=== PATIENT | male | born 1955 | race Caucasian/White ===

== ENCOUNTER 2024-02-26 18:59 | Inpatient (IN) | payer OTHER ==
--- OUTSIDE RECORDS SUMMARY | 2024-02-26 19:03 | XMS REPORT | Continuity of Care Document ---
Author Name Unknown Address [address] [facility] [address] [place] [address] [facility] Address [address] [facility] [address] [place] [address] Care Team Providers Care Broke Worker Name Role Phone CHI OCHOA Primary Care Physician UnavailALLYSON Angulo Attending Clinician Unavailable OBI-DORENE, IRIS Attending Clinician Unavailab le OBI-DORENE, IRIS Attending Clinician Unavailab ORN Blanco Attending Clinician Unavailable CHI OCHOA Attending Clinician Unavailable 2, [facility] Attending Clinician Unavailable Chi Styles Attending Clinician [phone] Doctor Unassigned, [place] Attending Clinician U Krishan Rodriguez MD Attending Clinician [phone] Lasha Man MD Attending Clinician [phone] LASHA MAN Attending Clinician Unavail able LASHA MAN Attending Clinician Unavail Allyson Pink MD Attending Clinician [phone] IDALIA HART Attending Clinician Unavailab yannick Medina RN, Deandra Barry Attending Clinician Debbie Nielsen LMSW Attending Clinician Jarett ng Payers Payer Name Policy Type Policy Number Effective Date Expirati on Date Source [facility] [id number] 2023 00:00:00 MEDICAID OF [place] [id number] 2024 00:00:00 Problems Condition Name Condition Details Condition Category Status Onset Date Resolution Date Last Treatment Date Treating Clinician Comments Source Type 2 diabetes mellitus, with long-term current use of insulin Type 2 diabetes mellitus, with long-term current use of insulin Disease Active 3 00:00: 00 [facility] Bilateral carotid artery stenosis Bilateral carotid artery stenosis Disease Active 3- 00:00: 00 [facility] Hyperlipid emia, unspecifie d hyperlipid emia type Hyperlipid emia, unspecifie d hyperlipid emia type Disease Active 3- 00:00: 00 [facility] Primary hypertensi on Primary hypertensi on Disease Active 3 00:00: 00 [facility] HFrEF (heart failure with reduced ejection fraction) HFrEF (heart failure with reduced ejection fraction) Disease Active 3 00:00: 00 [facility] Coronary artery disease involving napaimute coronary artery of napaimute heart without angina pectoris Coronary artery disease involving napaimute coronary artery of napaimute heart without angina pectoris Disease Active 3 00:00: 00 [facility] At risk for falls At risk for falls Disease Active 2 00:00: 00 [facility] Unspecifie d abnormalit ies of gait and mobility Unspecifie d abnormalit ies of gait and mobility Disease Active 2- 00:00: 00 [facility] Allergies, Adverse Reactions, Alerts Allergy Name Allergy Type Status Severity Reaction(s) Onset Date Inactive Date Treating Clinician Comments Source MORPHINE DRUG INGREDI Active Unknown-Cmnt 2- 00:00: 00 [facility] EMPAGLIF LOZIN DRUG INGREDI Active Unknown-Cmnt 2- 00:00: 00 [facility] Empaglif lozin Propensi ty to adverse reaction s Active Unknown - See comments 2- 00:00: 00 [facility] Morphine Propensi ty to adverse reaction s Active Unknown - See comments 2- 00:00: 00 [facility] NO KNOWN ALLERGIE S Drug Class Active [facility] Social History Social Habit Start Date Stop Date Quantity Comments Source History of tobacco use Cigarette Smoker [facility] Sexual orientation U niversity [facility] Alcohol intake 2023-12-29 00:00:00 2023-12-29 00:00:00 Lifetime non-drinker (finding) [facility] History of Social function 2023-12-29 00:00:00 2023-12-29 00:00:00 [facility] Tobacco use and exposure 2023-11-27 00:00:00 2023-11-27 00:00:00 Smokeless tobacco non-user [facility] Sex Assigned At 1955 00:00:00 1955 00:00:00 [facility] Smoking Status Start Date Stop Date Source Tobacco smoking consumption unknown [facility] Ex-smoker 2023-11-27 00:00:00 2023-11-27 00:00:00 [facility] Medications Ordered Medication Name Filled Medication Name Start Date Stop Date Current Medication? Ordering Clinician Indication Dosage Frequency Signature (SIG) Comments Components Source carvediloL (COREG) 12.5 mg tablet 01-28 00:00: 00 01-28 00:00 :00 Yes [id number] 12.5mg Take 1 tablet by mouth in the morning and 1 tablet in the evening. Take with meals. [facility] flash glucose sensor (FREESTYLE JOSE 2 SENSOR) Kit 01-03 00:00: 00 Yes 1{kit} 1 Kit every 2 (two) weeks. [facility] dulaglutide (TRULICITY) 1.5 mg/0.5 mL PnIj 01-03 00:00: 00 Yes [id number] 1.5mg inject 1 Pen under the skin weekly. [facility] ubidecareno ne (CO Q-10 ORAL) 15:03: 08 Yes Take by mouth. [facility] Magnesium Oxide 500 mg Cap 15:03: 08 Yes Take by mouth. [facility] aspirin 81 mg chewable tablet 15:01: 19 Yes 81mg Take 1 tablet by mouth in the morning. [facility] carvediloL (COREG) 12.5 mg tablet 15:01: 19 Yes 12.5mg Take 1 tablet by mouth in the morning and 1 tablet in the evening. Take with meals. [facility] losartan 25 mg tablet 12-11 12:23: 41 12-11 00:00 :00 No 25mg Take 1 tablet by mouth in the morning. [facility] aspirin 81 mg chewable tablet 12-11 12:23: 11 Yes 81mg Take 1 tablet by mouth in the morning. [facility] carvediloL (COREG) 12.5 mg tablet 12-11 12:23: 11 Yes 12.5mg Take 1 tablet by mouth in the morning and 1 tablet in the evening. Take with meals. [facility] losartan 25 mg tablet 12-11 00:00: 00 Yes [id number] 25mg Take 1 tablet by mouth in the morning. [facility] rosuvastati n (CRESTOR) 10 mg tablet 12-11 00:00: 00 Yes [id number] 10mg Take 1 tablet by mouth at bedtime. [facility] Blood-Gluco se Sensor (FREESTYLE JOSE 3 SENSOR) Nasreen 12-11 00:00: 00 Yes [id number] Use as directed [facility] BD ULTRAFINE III MINI PEN 31 gauge x 3/16" Ndle 12-11 00:00: 00 Yes USE DIRECTED 4 TIMES A DAY [facility] dulaglutide (TRULICITY) 1.5 mg/0.5 mL PnIj 12-11 00:00: 00 01-03 00:00 :00 No [id number] 1.5mg inject 1 Pen under the skin weekly for 90 days. [facility] metFORMIN 500 mg tablet 11-27 15:49: 42 11-27 00:00 :00 No 500mg Take 1 tablet by mouth in the morning and 1 tablet in the evening. Take with meals. [facility] Insulin Glargine (LANTUS SOLOSTAR U-100 INSULIN) 100 unit/mL (3 mL) injection 11-27 15:49: 42 11-27 00:00 :00 No 20U inject 20 Units under the skin in the morning. [facility] insulin aspart U-100 (NOVOLOG FLEXPEN U-100 INSULIN) 100 unit/mL (3 mL) injection 11-27 15:49: 42 11-27 00:00 :00 No 10U inject 10 Units under the skin in the morning and 10 Units at noon and 10 Units in the evening. inject before meals. Inject 5 to 10 units three times a day with meals [facility] aspirin 81 mg chewable tablet 11-27 15:47: 56 Yes 81mg Take 1 tablet by mouth in the morning. [facility] losartan 25 mg tablet 11-27 15:47: 56 Yes 25mg Take 1 tablet by mouth in the morning. [facility] carvediloL (COREG) 12.5 mg tablet 11-27 15:47: 56 Yes 12.5mg Take 1 tablet by mouth in the morning and 1 tablet in the evening. Take with meals. [facility] carvedilol 1.25 mg/mL oral suspension 11-27 15:45: 05 11-27 00:00 :00 No 12.5mg Take 10 mL by mouth in the morning and 10 mL in the evening. Take with meals. 1 tab by mouth twice a day [facility] insulin aspart U-100 (NOVOLOG FLEXPEN U-100 INSULIN) 100 unit/mL (3 mL) injection 11-27 00:00: 00 Yes [id number] 10U inject 10 Units under the skin in the morning and 10 Units at noon and 10 Units in the evening. inject before meals. Inject 5 to 10 units three times a day with meals [facility] metFORMIN 500 mg tablet 11-27 00:00: 00 Yes [id number] 500mg Take 1 tablet by mouth in the morning and 1 tablet in the evening. Take with meals. [facility] Insulin Glargine (LANTUS SOLOSTAR U-100 INSULIN) 100 unit/mL (3 mL) injection 11-27 00:00: 00 Yes [id number] 20U inject 20 Units under the skin in the morning. [facility] Insulin Glargine (LANTUS SOLOSTAR U-100 INSULIN) 100 unit/mL (3 mL) injection 11-27 00:00: 00 Yes [id number] 20U inject 20 Units under the skin in the morning. [facility] Vital Signs Vital Name Observation Time Observation Value Comments S ource Systolic blood pressure 2023-12-29 18:10:00 142 mm[Hg] [facility] Diastolic blood pressure 2023-12-29 18:10:00 72 mm[Hg] [facility] Heart rate 2023-12-29 18:10:00 65 /min [facility] Respiratory rate 2023-12-29 18:10:00 19 /min [facility] Body height 2023-12-29 18:10:00 182.9 cm [facility] Body weight 2023-12-29 18:10:00 77.61 kg [facility] BMI 2023-12-29 18:10:00 23.21 kg/m2 [facility] Oxygen saturation in Arterial blood by Pulse oximetry 2023-12-29 18:10:00 98 /min [facility] Systolic blood pressure 2023-12-28 15:14:00 135 mm[Hg] [facility] Diastolic blood pressure 2023-12-28 15:14:00 74 mm[Hg] [facility] Heart rate 2023-12-28 15:14:00 65 /min [facility] Body temperature 2023-12-28 15:14:00 36.39 [facility] Respiratory rate 2023-12-28 15:14:00 18 /min [facility] Body height 2023-12-28 15:14:00 182.9 cm [facility] Body weight 2023-12-28 15:14:00 74.753 kg [facility] BMI 2023-12-28 15:14:00 22.35 kg/m2 [facility] Oxygen saturation in Arterial blood by Pulse oximetry 2023-12-28 15:14:00 98 /min [facility] Systolic blood pressure 2023-12-24 20:59:00 136 mm[Hg] [facility] Diastolic blood pressure 2023-12-24 20:59:00 71 mm[Hg] [facility] Heart rate 2023-12-24 20:59:00 70 /min [facility] Body temperature 2023-12-24 20:59:00 36.61 [facility] Respiratory rate 2023-12-24 20:59:00 20 /min [facility] Body height 2023-12-24 20:59:[address] [facility] Body weight 2023-12-24 20:59:[address] [facility] BMI 2023-12-24 20:59:00 22.78 kg/m2 [facility] Oxygen saturation in Arterial blood by Pulse oximetry 2023-12-24 20:59:00 98 /min [facility] Systolic blood pressure 2023-12-11 18:16:00 141 mm[Hg] [facility] Diastolic blood pressure 2023-12-11 18:16:00 82 mm[Hg] [facility] Heart rate 2023-12-11 18:16:00 72 /min [facility] Body temperature 2023-12-11 18:16:00 36.33 [facility] Body height 2023-12-11 18:16:[address] [facility] Body weight 2023-12-11 18:16:00 75.297 kg [facility] BMI 2023-12-11 18:16:00 22.51 kg/m2 [facility] Oxygen saturation in Arterial blood by Pulse oximetry 2023-12-11 18:16:00 98 /min [facility] Systolic blood pressure 2023-11-27 21:36:00 136 mm[Hg] [facility] Diastolic blood pressure 2023-11-27 21:36:00 80 mm[Hg] [facility] Heart rate 2023-11-27 21:36:00 72 /min [facility] Body temperature 2023-11-27 21:36:00 36.61 [facility] Respiratory rate 2023-11-27 21:36:00 17 /min [facility] Body height 2023-11-27 21:36:00 182.9 cm [facility] Body weight 2023-11-27 21:36:00 75.388 kg [facility] BMI 2023-11-27 21:36:00 22.54 kg/m2 [facility] Oxygen saturation in Arterial blood by Pulse oximetry 2023-11-27 21:36:00 98 /min [facility] Procedures Procedure Date / Time Performed Performing Clinician Source EXTERNAL PROVIDER RECORDS 2024-01-12 05:01:00 Doctor Unassigned, [facility] AUTHORIZATION TO RELEASE PHI TO [facility] 2023-12-29 06:01:00 Doctor Unassigned, [facility] HB ECG ROUTINE & RHYTHM STRIP 2023-12-28 15:18:11 [facility] DME/SUPPLY JUSTIFICATION 2023-12-07 06:01:00 Doc tor Unassigned, [facility] ASSIGNMENT OF BENEFITS 2023-11-27 21:19:25 Docto r Unassigned, [facility] Encounters Start Date/Time End Date/Time Encounter Type Admission Type Attending Clinicians Care Facility Care Department Encounter ID Source 2024-05-26 13:20:00 2024-05-26 13:20:00 Outpatient R OBI-DORENE IRIS OBI-IRIS CATHERINE [facility] [id number] [facility] 2024-03-08 13:00:00 2024-03-08 13:00:00 Outpatient RON CARRASQUILLO [facility] [id number] [facility] 2024-02-25 13:30:00 2024-02-25 13:30:00 Outpatient CHI MOSER [facility] [id number] [facility] 2024-02-22 13:00:00 2024-02-22 14:02:15 Outpatient CHI MOSER 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 [id number] [facility] 2024-01-29 00:00:00 2024-01-29 00:00:00 Telephone Chi Ochoa [facility] 1.2.840.114 350.1.13.10 4.2.7.2.686 [id number] [facility] 2024-01-19 14:00:00 2024-01-19 14:00:00 Outpatient Joyce HOOVERAFUAIQ [facility] [id number] [facility] 2024-01-12 00:00:00 2024-01-12 00:00:00 Orders Only Doctor Unassigned, [place] [facility] 1.2.840.114 350.1.13.10 4.2.7.2.686 [id number] [facility] 2024-01-06 00:00:00 2024-01-06 00:00:00 Telephone Krishan Cowart [facility] 1.84114 350.1.13.10 4.2.7.2.686 [id number] [facility] 2024-01-04 00:00:00 2024-01-04 00:00:00 Telephone Donovan Lasha Hensley [facility] 1.114 350.1.13.10 4.2.7.2.686 [id number] [facility] 2024-01-01 00:00:00 2024-01-01 00:00:00 Patient Secure Msg Doctor Unassigned, [place] [facility] 1.114 350.1.13.10 4.2.7.2.686 [id number] [facility] 2023-12-29 11:40:00 2023-12-29 16:54:53 Outpatient R LASHA MAN HOWARD [facility] [id number] [facility] 2023-12-29 11:40:00 2023-12-29 16:54:53 Office Visit Lasha Man Ayden [facility] 1.114 350.1.13.10 4.2.7.2.686 [id number] [facility] 2023-12-29 00:00:00 2023-12-29 00:00:00 Telephone Donovan Lasha Hensley [facility] 1.114 350.1.13.10 4.2.7.2.686 [id number] [facility] 2023-12-29 00:00:00 2023-12-29 00:00:00 Orders Only Doctor Unassigned, [place] [facility] 1.114 350.1.13.10 4.2.7.2.686 [id number] [facility] 2023-12-28 09:40:00 2023-12-28 09:40:00 [facility] 1.2.840.114 350.1.13.10 4.2.7.2.686 [id number] [facility] 2023-12-28 09:40:00 2023-12-28 09:39:59 [id number] 2023-12-28 00:00:00 2023-12-28 00:00:00 Letter (Out) [facility] 1..840.114 350.1.13.10 4.2.7.2.686 [id number] [facility] 2023-12-24 16:15:00 2023-12-24 16:15:00 Office Visit Ron Hoover [facility] 1.840.114 350.1.13.10 4.2.7.2.686 [id number] [facility] 2023-12-24 16:15:00 2023-12-24 15:29:05 Outpatient R KATY, RON [facility] [id number] [facility] 2023-12-11 12:30:00 2023-12-11 12:48:04 Outpatient R CHI OCHOA [facility] [id number] [facility] 2023-12-11 12:30:00 2023-12-11 12:48:04 Office Visit Chi Ochoa [facility] 1.2.840.114 350.1.13.10 4.2.7.2.686 [id number] [facility] 2023-12-08 00:00:00 2023-12-08 00:00:00 Telephone Deandra Medina [facility] 1.2.840.114 350.1.13.10 4.2.7.2.686 [id number] [facility] 2023-12-07 14:40:00 2023-12-07 14:40:00 Outpatient Joyce MCCORMICKALLSYON 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 [id number] [facility] 2023-12-02 00:00:00 2023-12-02 00:00:00 [facility]840.114 350.1.13.10 4.2.7.2.686 [id number] [facility] 2023-12-02 00:00:00 2023-12-02 00:00:00 Telephone Chi Ochoa [facility] 1.2.840.114 350.1.13.10 4.2.7.2.686 [id number] [facility] 2023-12-01 00:00:00 2023-12-01 00:00:00 Patient Outreach [facility] 1.2.840.114 350.1.13.10 4.2.7.2.686 [id number] [facility] 2023-11-27 15:30:00 2023-11-27 16:17:50 Outpatient R CHI OCHOA [facility] [id number] [facility] 2023-11-27 15:30:00 2023-11-27 16:17:50 Office Visit Chi Ochoa [facility] 1.2.840.114 350.1.13.10 4.2.7.2.686 [id number] [facility] 2023-11-27 00:00:00 2023-11-27 00:00:00 Patient Secure Msg Doctor Unassigned, [place] [facility] 1.2.840.114 350.1.13.10 4.2.7.2.686 [id number] [facility] 2023-11-27 00:00:00 2023-11-27 00:00:00 Orders Only Doctor Unassigned, [place] [facility] 1.2.840.114 350.1.13.10 4.2.7.2.686 [id number] [facility] Notes Date/Time Note Provider Source 2024-02-22 13:00:00 ty2A9um6jv4qO5zA7cF9ro6E+PkHuGmVj MRFT51njica7MBBQ0G1bbPmYsnDWwjk14 16-02-29T13:00:00 Images from the original note were not included.Venipuncture collection performed by clean technique on the right anticubitus. Total of 3 attempts were made. Slight pressure and a bandage/dressing were applied to the site(s). The patient experienced no complications. The following specimens were processed according to instructions and sent to [facility] laboratories per lab order on 02/22/2024:LT BLUESST 2REDLAV 1PPTDK GREEN (LiHep)DK GREEN (SodH)GRAYDK BLUE (K2)DK BLUE (S)ACDBlood CultureNIPT/NTD 54520-6Swslq TzusLO7358-01-17R50:23:49Nurse NoteTXT1.2.840.491277.1.13.104.2. 7.2.526931|[id number] for patient enuc60456-9Fuksa NoteLNNARRATIVEFormatted C-CDA narrative text[address]TXTX[address] 391CPUZUHKJIKJBCZNGZSHVKH2960-85- 29T13:23:491.2.840.895835.1.72.3. 15|1.2.840.331056.1.13.104.2.7.2. 727879_[id number] [facility] 2024-02-10 15:14:11 8IDdH2cbdQt4JNcSdozvi+ILcobkyjmnO CpzyPj95QVnmSBkz40mgGXTLvh0pGmb99 16-02-17T15:14:11 Forms received and placed in providers folder. 17145-3Mfebsdioa encounter InsdUK8796-27-62I34:14:29Telephon e encounter NoteTXT1.2.840.265113.1.13.104.2. 7.2.913794|[id number] for patient aryx87546-6LdirJLUFERKPGFYRaqqmuq ed C-CDA narrative [id number] José Ramos RNUT[address]TXTX[address] 451FYXKESVMWIZXOJBHKEJDCD4677-14- 17T15:14:291.2.840.797009.1.72.3. 15|1.2.840.617755.1.13.104.2.7.2. 727879_[id number] Malinda Ramos RN [facility] 2024-02-10 08:57:17 fOYZegrZoGClwXxgQqtJCWHBYHFYwKZ+N 9c6wV2e7N1I0qXUPeOv8Yul3USnS6f182 16-02-17T08:57:17 Images from the original note were not included.Placed in nurse folder. 10436-6Byitiljuh encounter RrqxGU2014-86-86F70:57:32Telephon e encounter NoteTXT1.2.840.445221.1.13.104.2. 7.2.995462|[id number] for patient gitt24154-7CghqBKLKWOORWBATddvzzo ed C-CDA narrative snnk032527889Qqdnzvh D [address] FkzhOnrqwqifoQxwbjkvwjTZBF7734840 705DYZARCMGYHORKJIMTMUDER8784-85- 17T08:57:321.2.840.953609.1.72.3. 15|1.2.840.704969.1.13.104.2.7.2. 727879_[id number] Lynne Christiansen [facility] 2024-02-10 08:50:30 4qUYsH9RoPcvAFs3sq/1TX3t2hYFFb3RD rBaVheJqWtHcoGIWxnX2eW/klJSf7+b20 16-02-17T08:50:30 Will await forms for completion 27679-6Uhjoogjog encounter YyibVP3363-51-56X61:50:43Telephon e encounter NoteTXT1.2.840.418917.1.13.104.2. 7.2.873605|[id number] for patient wppq06950-0KnzkNCIMGVFHSFMZbcsvgh ed C-CDA narrative rtwx223744901Pgpsr Garcia V, KERRY[address] 366SPZZCLUEEDIGFNBVYWRHCP4741-48- 17T08:50:431.2.840.870308.1.72.3. 15|1.2.840.656352.1.13.104.2.7.2. 727879_[id number] Malinda Kumar V, KERRY [facility] 2024-02-10 08:21:11 xYJLlSl2uECNgeqwR9G27UZdb6Ox+fldF Th55qptljXYz0LPCX4g9YPZlXzrnj5898 16-02-1708:21:11 Maximus Sheehan is a 68 year old maleApril w [facility] medical called stating they will be faxing over "Jose 2 sensors forms" for pcp to be filled out.[facility] MEDICAL INFOPh # [phone] # [phone] signed by Anatoly Spencer at 02/10/2024 8:23 AM YWK95094-6Xdsjxzoee encounter TimpDN3892-85-20O33:23:35Telephon e encounter NoteTXT1.2.840.083122.1.13.104.2. 7.2.237950|[id number] for patient sdzi74750-7NmccOBHDCHEOXWWVtbrhbu ed C-CDA narrative [id number] Carlos[address] StreetDbelYmuqmtyewEfntzrnrxPSQI2845079 903YJWZUYGMHYALKWOFQZEERE8044-09- 17T08:23:351.2.840.957590.1.72.3. 15|1.2.840.122325.1.13.104.2.7.2. 727879_[id number] Anatoly Clark [facility] 2024-01-29 12:43:02 EkWRZMan5WIqQvkIB1VeL7t5RpcxP2Gio QCd7yPTBhHg8Omd3THL1gQp/vtNCMRg27 16-02-05T12:43:02 Refill 69717-8Epviuduzo encounter FskeEC9356-52-65T03:43:42Telephon e encounter NoteTXT1.2.840.508059.1.13.104.2. 7.2.458532|[id number] for patient absn35476-8XfqhTOAMVSBNJETKwxeaew ed C-CDA narrative text[address] BtgrPlwbdpmtkTswzwizdePDFS5972481 509KTUPLZSQFNUEJDDFNXSPFO6275-65- 05T12:43:421.2.840.853187.1.72.3. 15|1.2.840.111521.1.13.104.2.7.2. 727879_[id number] [facility] 2024-01-06 09:06:45 J41TDRkYuaMt02GYbqkAxaPoD188pUTwd Cl2zftCKchEQ4VPNOkUaTPzCw5ETj5r44 16-01-13T09:06:45 Images from the original note were not included.Notification received [facility], placed in provider folder for review. 49052-4Bnbufdhsh encounter XnkpAP8217-68-14I80:08:16Telephon e encounter NoteTXT1.2.840.118047.1.13.104.2. 7.2.717780|[id number] for patient pznd30256-0EvyhRMKLIUCSYQYXglrvwd ed C-CDA narrative [id number] [address] [id number] 358OEYVXMTXPDJAQVGHDQYLCR1353-34- 13T09:08:161.2.840.666887.1.72.3. 15|1.2.840.069383.1.13.104.2.7.2. [id number] Cynthia Walker [facility] 2024-01-04 16:53:53 1tQ0H3q771RJV1WpzGKAz77+p5pCD2JJa oydYYjQH2+Yi8jA+90rKOT7KmXgYMAG97 16-01-11T16:53:53 Received medical records from [facility] scanned and placed in box. 14981-2Mtjwlzirn encounter BkrqUA8486-45-64B14:55:08Telephon e encounter NoteTXT1.2.840.356221.1.13.104.2. 7.2.490064|[id number] for patient ffka76466-9VgweGAGMKEBRFCXZawihek ed C-CDA narrative [id number] J [address] NktuMacuntwunGqvjrrcrvSPQU1100216 643UNUMHRIEUBDOASUPYBOCCV3742-33- 11T16:55:081.2.840.597236.1.72.3. 15|1.2.840.850055.1.13.104.2.7.2. [id number] [facility] 15:13:09 2LWbW7RCIm/mofcRJtXXsj/8UmDSF0s1j uYBwLWzBhnyYqwRktNAdaeTEz3vyH2n53 16-01-115:13:09 Sensor has been sent to a DME company ([employer]) through [employer].Patient rollator is waiting for provider signature. Resent to provider to sign orders through [place]. 34227-1Tzwaudigc encounter FxdtLR1462-75-10G94:16:20Telephon e encounter NoteTXT1.2.840.480587.1.13.104.2. 7.2.889203|[id number] for patient qwuq23679-3NqhqEZWFQITHGSCRkjdwwq ed C-CDA narrative [id number] M Serrano MA[address] Zd[id number] 858LAMBBMJSBGYEQGZXADRCGE9680-70- 11T15:16:201.2.840.750031.1.72.3. 15|1.2.840.759503.1.13.104.2.7.2. [id number] Marianela Calderon [facility] 2024-01-04 13:51:14 ivQHPD/d8CVl25jySdUKGoVzVh/6MrnnP 5iHy5V4uuaHE4WqzzXTZV9goELjkgp876 16-01-113:51:14 Per patient, he is using the [employer] 2 sensor and it must be sent to [employer], it cannot be sent to the pharmacy. Order updated. Will routed to [facility] for DME order to [employer]. 51052-2Mjrwheptt encounter XouoBQ5767-20-94W78:03:28Telephon e encounter NoteTXT1.2.840.583340.1.13.104.2. 7.2.306609|[id number] for patient rzxd84041-9CedwXJGANFDAGKOLsttwoy ed C-CDA narrative text[address]TX[address] 569KGZQMDUWTXCJOYECYLVAXJ8524-95- 11T14:03:281.2.840.461375.1.72.3. 15|1.2.840.816413.1.13.104.2.7.2. [id number] [facility] 2023-12-29 13:59:51 2gaWQHeBz7Inn1I8q99q+Hj1IhsD9/tT0 eFrwuxfKqkGfwPdgu2nZuKnhJWC81oD14 16-01-05T13:59:51 Pt has signed medical release and has been faxed to designated location for request of medical records.Confirmation received.Scanned and uploaded to patients chart. 94928-7Lgivonbjt encounter JobbDZ7751-58-70C02:00:29Telephon e encounter NoteTXT1.2.840.217660.1.13.104.2. 7.2.346538|[id number] for patient cxfe48992-5CrifADQWXLRATANIqfxuly ed C-CDA narrative [id number] M Arlingtonadeola[address]TX[address] 672OPRULEYZJPWBUYIXOPDVLG3485-08- 05T14:00:291.2.840.476648.1.72.3. 15|1.2.840.387728.1.13.104.2.7.2. [id number] Lucia Sandoval [facility] 2023-12-08 10:49:19 0okNzkaqGhnjFZSOVybXaUJgtiXueA1NI [facility]/iZ+K950pWa/m2VEkuyVbY3IHZW75 19-12-12T10:49:19 Maximus Sheehan 455708S72/13/24Incoming call from patient who is trying to contact his PCP, Chi Ochoa -ROBYN regarding his medication.Current overdue topics are as followsHealth Maintenance DueTopic Date DueMedicare Wellness Visit Never sgccLHQB-GvF-1 (COVID-19) Vaccine (1) Never doneEYE EXAM Never doneDepression Screening Never doneHIV Screening Never doneSDOH Financial Resource Strain Never doneSDOH Food Insecurity Never doneSDOH Transportation Needs Never doneFOOT EXAM Never doneHEPATITIS C (HCV) SCREEN Never doneDTaP,Tdap,and Td Vaccines (1 - Tdap) Never doneColorectal Cancer Screening Never doneZoster Recombinant Vaccine (SHINGRIX) (1 of 2) Never donePNEUMOCOCCAL VACCINES 65+ (1 of 1 - PCV) Never doneINFLUENZA VACCINE (1) Never doneAAA Screening 3Patient stated "I need to contact my PCP, Chi Ochoa regarding my medication and some questions I have. I was trying to contact the clinic but some how my phone call got routed to you. Can you transfer me or give me the phone number. Attempted to transfer but unable to transfer to this clinic in [place], [place]. Patient was given the clinic phone number [phone] to speak with staff at the [facility].Deandra Medina RN 12/08/2023 10:49 AM 46173-9Ezommjzfx encounter DkjgRV8453-97-10V07:54:48Telephon e encounter NoteTXT1.2.840.781953.1.13.104.2. 7.2.851069|[id number] for patient dgjj01841-0QugfTRVNWLAIVWBOkjjngb ed C-CDA narrative [id number] Medina RNUTMBUT - [address]TXTX[address] 711ZKRGDWDJQITHBZRGSPDADN7461-74- 13T10:54:481.2.840.474758.1.72.3. 15|1.2.840.597460.1.13.104.2.7.2. [id number] Deandra Asha Adam PAYNE [facility] 2023-12-02 11:45:00 phg2iI4jEkHS+XYWBgj2jsDxVavo0HYCp zTEwZ62hFxoHNnyLlNckZaQB8m7HjcX27 19-12-061:45:00 Images from the original note were not included.Venipuncture collection performed by clean technique on the right anticubitus. Total of 1 attempts were made. Slight pressure and a bandage/dressing were applied to the site(s). The patient experienced no complications. The following specimens were processed according to instructions and sent to [facility] laboratories per lab order on 12/02/2023:LT BLUESST 1REDLAV 2PPTDK GREEN (LiHep)DK GREEN (SodH)GRAYDK BLUE (K2)DK BLUE (S)ACDBlood CultureNIPT/NTDPatient has been identified by and name and was provided with cup, antiseptic towelette, and clean catch instructions. 2 urine specimen(s) sent.Unpreserved 2Urine CultureAptima tubeOther urine 03839-1Ayuzw VptiYE5051-99-80O58:50:39Nurse NoteTXT1.2.840.474259.1.13.104.2. 7.2.661282|[id number] for patient nwju82546-5Idfro NoteLNNARRATIVEFormatted C-CDA narrative textUT[address] UazkNdqscfelrSnfevtthbWOIP5116571 119KLYNWTZRXIXZQMRIEFDLNR3867-66- 07T11:50:391.2.840.166146.1.72.3. 15|1.2.840.196477.1.13.104.2.7.2. [id number] [facility] 2023-12-02 10:32:53 hdedWk+Mpn678+xTk9Sql6elQtU/JG9tn byFVAhl9zULlMSxAw2mhuvzVAFb6vjI38 19-12-060:32:53 DME order for Rollator was sent through [employer]. Sent to [facility] Patient. 89445-0Oiwqdqqik encounter OmgtEM1837-09-17Z10:33:43Telephon e encounter NoteTXT1.2.840.854990.1.13.104.2. 7.2.238350|[id number] for patient xuhp71693-3OtebOVVMHGZTGUJVpnrtuj ed C-CDA narrative [id number] M Serrano MA[address] Jo[id number] 257FCHIHOHXNGXOPXENBLWANS4094-32- 07T10:33:431.2.840.882790.1.72.3. 15|1.2.840.975845.1.13.104.2.7.2. [id number] Marianela Calderon MA [facility]
[2024-02-26 19:37] LABS: Hematocrit 36.4 % (39.6-49.0); Hemoglobin 12.6 g/dL (13.6-17.9); Lymphocytes % 38.2 % (15.3-44.8); MCH 30.9 pg (27.0-35.0); MCHC 34.5 g/dL (32.0-36.0); MCV 89.5 fL (80-100); MPV 7.9 fL (7.6-11.3); Monocytes % 9.7 % (3.3-12.3); Neutrophils % 49.2 % (41.7-73.7); Platelets 298 thou/uL (152-406); RBC Red Blood Cell Count 4.07 M/uL (4.33-5.43); Red Cell Distribution Width 12.8 % (12.1-15.2)
[2024-02-26 19:38] LABS: Absolute Eosinophils 0.1 K/uL (0-0.5); Absolute Lymphocytes (CBC) 2.4 K/uL (0.7-4.9); Absolute Monocytes 0.6 K/uL (0.1-1.3); Absolute Neutrophil 3.1 K/uL (1.8-8.0); Basophils % 0.6 % (0-1.3); Eosinophils % 2.3 % (0-4.4); Nucleated Red Blood Cells % 0.2 % (0-0)
[2024-02-26 19:42] LABS: PT Prothrombin Time 11.9 SECONDS (9.5-12.5); Protime INR 1.08
[2024-02-26 19:57] LABS: ALT/SGPT 14 U/L (16-61); AST/SGOT 5 U/L (15-37); Albumin 2.7 g/dL (3.4-5.0); Albumin/Globulin Ratio 0.9 (1.1-1.8); Alkaline Phosphatase 76 U/L (45-117); Anion Gap 8.8 mEq/L (5.0-15.0); BUN Blood Urea Nitrogen 12 mg/dL (7-18); Bicarbonate 25 mEq/L (21-32); Bilirubin Total 0.3 mg/dL (0.2-1.0); Globulin 2.9 g/dL (2.3-3.5); Glomerular Filtration Rate 98 ml/min (=/>90); Glucose Level 271 mg/dL (74-106); Magnesium 1.7 mg/dL (1.6-2.4); NT PRO-BNP 135 pg/mL (<125); Potassium 3.8 mEq/L (3.5-5.1); Protein, Total 5.6 g/dL (6.4-8.2); Sodium Level 138 mEq/L (136-145); Troponin High Sensitivity 21.3 pg/mL (<58.9)
[2024-02-26 20:00] LABS: Bilirubin Direct < 0.1 mg/dL (0-0.2); Bilirubin Indirect, Calculated ND mg/dL (0.2-0.8)
--- NOTE | 2024-02-26 20:27 | RAD REPORT ---
EXAM DESCRIPTION: CT - CTHCSPWOC - 02/26/2024 8:04 pm CLINICAL HISTORY: Trauma, head and neck injury. syncope;Headache COMPARISON: Head C Spine Mpr Wo Con dated 12/28/2023 TECHNIQUE: Axial 5 mm thick images of the head were obtained. Axial 2 mm thick images of the cervical spine were obtained with sagittal and coronal reconstruction images generated and reviewed. All CT scans are performed using dose optimization technique as appropriate and may include automated exposure control or mA/KV adjustment according to patient size. FINDINGS: CT HEAD WITHOUT CONTRAST: No acute hemorrhage, hydrocephalus or extra-axial collection is identified.No areas of brain edema or midline shift. Left parietal craniotomy. The paranasal sinuses and mastoids are clear.The calvarium is intact. CT CERVICAL SPINE WITHOUT CONTRAST: No fracture or subluxation.No prevertebral soft tissues swelling is identified. Mild cervical spondyl osis with neural foraminal narrowing at C4-5 and C5-6 that is mild. No high grade spinal stenosis vargas ntified. IMPRESSION: No acute intracranial or cervical spine findings.
--- NOTE | 2024-02-26 20:55 | RAD REPORT ---
EXAM DESCRIPTION: RAD - Chest Single View - 02/26/2024 8:43 pm CLINICAL HISTORY: syncope COMPARISON: Chest Single View dated 12/28/2023 FINDINGS: Lines: None. Lungs: No evidence of edema or pneumonia. Pleural: No significant pleural effusions or pneumothorax. Cardiac: The heart size is within normal limits. Mediastinum: Within normal limits. Bones: No acute fractures. Sternotomy. Other: None IMPRESSION: No acute cardiopulmonary disease.
[2024-02-26] MEDS ORDERED: ACETAMINOPHEN 325 MG TABLET PO PRN (22:49)
[2024-02-26] MEDS ORDERED: ONDANSETRON 4 MG/2 ML VIAL IV PRN (22:49)
--- NOTE | 2024-02-26 22:53 | P.HP ---
Certification for Inpatient Patient admitted to: Observation With expected LOS: <2 Midnights Practitioner: I am a practitioner with admitting privileges, knowledge of patient current condition, hospital course, and medical plan of care. Services: Services provided to patient in accordance with Admission requirements found in Title 42 Section 412.3 of the Code of Federal Regulations Patient History Date of Service: 02/26/24 Reason for admission: Syncope History of Present Illness: 68yo male with past medical history of CVA, history of brain bleed status post surgery, history of possible POTS syndrome who came to ER with generalized weakness and fall and was brought to ER. Patient states that he had a stroke previously with mild residual deficits on the right side. He used to have dizziness and generalized weakness and passed out episodes especially movement movement. Patient denies any fever or chills. Denies any chest pain or shortness of breath.. Denies any nausea vomiting or diarrhea. Today patient was standing from sitting position when all of a sudden he got dizzy and fell down with a loss of consciousness about 30 minutes as per the patient. Denies a ny seizure-like activity. Patient was assessed in the ER and had a CT which showed no acute changes Patient is being admitted for further management - Past Medical/Surgical History Past Medical History: Reviewed- Non-Contributory -: cva Past Surgical History: Reviewed- Non-Contributory -: Brain - Family History Family History: Reviewed- Non-Contributory - Social History Smoking Status: Never smoker Review of Systems 10-point ROS is otherwise unremarkable Physical Examination - Vital Signs Temperature: 98.2 F Blood Pressure: 128/76 Pulse: 78 Respirations: 18 Pulse Ox (%): 94 - Physical Exam General: Alert, In no apparent distress, Oriented x3 HEENT: Atraumatic, Normocephalic Neck: Supple, 2+ carotid pulse no bruit Respiratory: Clear to auscultation bilaterally, Normal air movement Cardiovascular: Regular rate/rhythm, Normal S1 S2, No gallops Capillary refill: <2 Seconds Gastrointestinal: Soft and benign, W/out hepatosplenomegaly, No ascites, No tenderness Musculoskeletal: No clubbing, No swelling Integumentary: No rashes, No breakdown Neurological: Normal speech, Normal strength at 5/5 x4 extr, Cranial nerves 3-12 intact, Normal reflexes 2+ Lymphatics: No axilla or inguinal lymphadenopathy - Studies Laboratory Data (last 24 hrs) 02/26/24 02/26/24 02/26/24 19:21 19:21 19:21 WBC 6.30 Hgb 12.6 L Hct 36.4 L Plt Count 298 PT 11.9 INR 1.08 Sodium 138 Potassium 3.8 BUN 12 Creatinine 0.80 Glucose 271 H Magnesium 1.7 Total Bilirubin 0.3 AST 5 L ALT 14 L Alkaline Phosphatase 76 Assessment and Plan - Problems (Diagnosis) (1) Syncope and collapse Current Visit: Yes Status: Acute Plan: Syncope and collapse Monitor closely on telemetry CT head negative for any acute changes Syncopal workup Will get a cardiology evaluation History of CVA History of SDH No acute changes at this time CT head at this time is negative Continue home medications Dehydration IV hydration GI/DVT prophylaxis Advance directive full code - Advance Directives Does patient have a Living Will: No Does patient have a Durable POA for Healthcare: No - Code Status/Comfort Care Code Status Assessed: Yes Code Status: Full Code Time Spent Managing Pts Care (In Minutes): 48
[2024-02-27 02:28] LABS: Specific Gravity 1.012 (1.005-1.030); Urine Bilirubin NEGATIVE (Negative); Urine Blood Negative (Negative); Urine Clarity Clear (Clear); Urine Color Light-Yellow (Yellow); Urine Glucose 3+ (Negative); Urine Ketones NEGATIVE (Negative); Urine Microscopic Reflex YN NO UMIC; Urine Nitrite NEGATIVE (Negative); Urine Protein NEGATIVE (Negative); Urine Urobilinogen Normal (Normal); Urine pH 6.5 (5.0-7.0)
[2024-02-27] MEDS: NA CHLORIDE 0.9% 1,000 ML ONE (04:20)
[2024-02-27] MEDS: NA CHLORIDE 0.9% 1,000 ML IV SCH (04:37)
[2024-02-27 07:00] LABS: Absolute Eosinophils 0.1 K/uL (0-0.5); Absolute Monocytes 0.5 K/uL (0.1-1.3); Absolute Neutrophil 2.8 K/uL (1.8-8.0); Basophils % 0.8 % (0-1.3); Eosinophils % 1.6 % (0-4.4); Hematocrit 38.1 % (39.6-49.0); Hemoglobin 13.1 g/dL (13.6-17.9); Lymphocytes % 36.7 % (15.3-44.8); MCH 30.8 pg (27.0-35.0); MCHC 34.4 g/dL (32.0-36.0); MCV 89.5 fL (80-100); Neutrophils % 50.9 % (41.7-73.7); Nucleated Red Blood Cells % 0.1 % (0-0); Platelets 315 thou/uL (152-406); RBC Red Blood Cell Count 4.25 M/uL (4.33-5.43)
[2024-02-27 07:21] LABS: ALT/SGPT 14 U/L (16-61); Albumin 2.9 g/dL (3.4-5.0); Alkaline Phosphatase 76 U/L (45-117); Anion Gap 7.9 mEq/L (5.0-15.0); BUN Blood Urea Nitrogen 12 mg/dL (7-18); Bicarbonate 26 mEq/L (21-32); Bilirubin Total 0.4 mg/dL (0.2-1.0); Globulin 2.9 g/dL (2.3-3.5); Glomerular Filtration Rate 102 ml/min (=/>90); Glucose Level 306 mg/dL (74-106); Potassium 3.9 mEq/L (3.5-5.1); Protein, Total 5.8 g/dL (6.4-8.2); Sodium Level 137 mEq/L (136-145)
[2024-02-27 07:22] LABS: AST/SGOT < 4 U/L (15-37)
--- NOTE | 2024-02-27 07:49 | P.PN ---
Subjective Date of Service: 02/28/24 Chief Complaint: Syncope 68yo male with past medical history of CVA, history of brain bleed status post surgery, history of possible POTS syndrome who came to ER with generalized weakness and fall and was brought to ER. Patient states that he had a stroke previously with mild residual deficits on the right side. He used to have dizziness and generalized weakness and passed out episodes especially movement movement. Orthostatic VS, will ambulate to PT today, PT eval cardiology consult ordered - Physical Exam General: Alert, In no apparent distress, Oriented x3 HEENT: Atraumatic, Normocephalic Neck: Supple, 2+ carotid pulse no bruit Respiratory: Clear to auscultation bilaterally, Normal air movement Cardiovascular: Regular rate/rhythm, Normal S1 S2, No gallops Capillary refill: <2 Seconds Gastrointestinal: Soft and benign, W/out hepatosplenomegaly, No ascites, No tenderness Musculoskeletal: No clubbing, No swelling Integumentary: No rashes, No breakdown Neurological: Normal speech, Normal strength at 5/5 x4 extr, Cranial nerves 3-12 intact, Normal reflexes 2+ Lymphatics: No axilla or inguinal lymphadenopathy <Susana Jama - Last Filed: 02/28/24 06:42> Date of Service: 02/27/24 <Esther Hensley - Last Filed: 02/29/24 16:11> Review of Systems per HPI <Susana Jama - Last Filed: 02/28/24 06:42> Physical Examination - Vital Signs Temperature: 98.3 F Blood Pressure: 125/60 Pulse: 78 Respirations: 16 Pulse Ox (%): 97 - Studies Laboratory Data (last 24 hrs) 02/26/24 02/26/24 02/26/24 19:21 19:21 19:21 WBC 6.30 Hgb 12.6 L Hct 36.4 L Plt Count 298 PT 11.9 INR 1.08 Sodium 138 Potassium 3.8 BUN 12 Creatinine 0.80 Glucose 271 H Magnesium 1.7 Total Bilirubin 0.3 AST 5 L ALT 14 L Alkaline Phosphatase 76 02/26/24 02/26/24 02/26/24 19:20 19:20 19:20 WBC Cancelled Hgb Cancelled Hct Cancelled Plt Count Cancelled PT Cancelled INR Cancelled Sodium Cancelled Potassium Cancelled BUN Cancelled Creatinine Cancelled Glucose Cancelled Magnesium Cancelled Total Bilirubin Cancelled AST Cancelled ALT Cancelled Alkaline Phosphatase Cancelled <Susana Jama - Last Filed: 02/28/24 06:42> Assessment And Plan - Plan Assessment and Plan Syncope and collapse Fall Monitor closely on telemetry CT head negative for any acute changes Syncopal workup Will get a cardiology evaluation Orthostatic vital sign PT eval Cardiology consult Rad/Lab/Micro: Orthostatic vital signs stable / CT neck IMPRESSION: 1. Severe (>70% stenosis) of the right mid ICA. 2. Mild (<50% stenosis) of the left proximal ICA. 3. Severe stenosis of the nondominant left vertebral artery at its origin. 4. The common carotid arteries and right vertebral artery are patent. 5/ CTA of the head-IMPRESSION: No large vessel occlusion or aneurysm identified. The left vertebral artery has a severe focal stenosis proximally CT of the head Chest x-ray no acute abnormality / CT of the cervical spine CT CERVICAL SPINE WITHOUT CONTRAST: No fracture or subluxation.No prevertebral soft tissues swelling is identified. Mild cervical spondylosis with neural foraminal narrowing at C4-5 and C5-6 that is mild. No high grade spinal stenosis identified.IMPRESSION: No acute intracranial or cervical spine findings 02/26 Carotid ultrasound MPRESSION: Severe (greater than 70% stenosis but less than occlusion) at the right mid ICA. Moderate (50-69%) stenosis of the left mid ICA POTS Syndrome History of CVA History of SDH No acute changes at this time CT head at this time is negative Continue home medications Dehydration IV hydration GI/DVT prophylaxis Advance directive full code Discharge Plan: Home - Code Status/Comfort Care Code Status: Full Code Critical Care: No Time Spent Managing PTS Care (In Minutes): 35 <Susana Jama - Last Filed: 02/28/24 06:42> Date of Service: 02/27/24 Patient was seen and examined. Events of the last 24 hours have been noted. Spoke with with SAMIR regarding patient's clinical picture after evaluating and examining the patient independently. CT angio of the head and neck is pending. I performed a substantial part of the MDM during this patient's care today. I personally made or approved the documented management plan and acknowledge its risk of complications. I agree with the findings and documentation provided in the SAMIR's notes. <Esther Hensley - Last Filed: 02/29/24 16:11>
--- NOTE | 2024-02-27 07:56 | RAD REPORT ---
EXAM DESCRIPTION: - CP - 02/27/2024 6:00 am CLINICAL HISTORY: Syncope COMPARISON: Head C Spine Mpr Wo Con dated 02/26/2024 TECHNIQUE: Real-time sonographic evaluation of both carotid systems was performed. Doppler interroga tion was performed with waveform tracing bilaterally. FINDINGS: Normal high resistance waveforms are noted in both external carotid arteries. The common c arotid arteries normal low resistance waveforms and no elevated peak systolic velocities. Elevated velocities are present at the right mid ICA with a peak systolic velocity of 272 cm/s. Hard and soft plaque is present at the carotid bulb. Elevated peak systolic velocities present on the left mid ICA with peak systolic velocities at 162 cm /second. Hard and soft plaque is present at the carotid bulb. Antegrade flow seen in both vertebral arteries. IMPRESSION: Severe (greater than 70% stenosis but less than occlusion) at the right mid ICA. Moderate (50-69%) stenosis of the left mid ICA.
[2024-02-27] MEDS ORDERED: GLUCAGON 1 MG/VIAL IM PRN (07:57)
[2024-02-27] MEDS ORDERED: D50W 25 GM/50 ML SYRINGE IV PRN (07:57)
[2024-02-27] MEDS: INSULIN REGULAR (HUMAN) 100 UNIT/ML SQ SCH ×2 (08:00→16:21)
[2024-02-27] MEDS: INSULIN REGULAR (HUMAN) 100 UNIT/ML ONE (08:29)
[2024-02-27] MEDS: INSULIN GLARGINE 100 UNIT/ML SQ ONE (08:31)
[2024-02-27] MEDS: ENOXAPARIN 40 MG/0.4 ML SQ SCH (08:37)
[2024-02-27] MEDS: INSULIN GLARGINE 100 UNIT/ML SQ SCH (08:41)
[2024-02-27] MEDS: ROSUVASTATIN 10 MG TAB PO SCH (11:01)
[2024-02-27] MEDS: carvediloL 12.5 MG TAB PO SCH (11:02)
[2024-02-27] MEDS: LOSARTAN POTASSIUM 50 MG TABLET PO SCH (11:02)
[2024-02-27] MEDS: ASPIRIN EC 81 MG TAB PO SCH (11:03)
[2024-02-27] MEDS: METFORMIN ER 500 MG TAB PO SCH (11:03)
[2024-02-27 15:00] VITALS: BMI 22.2
--- NOTE | 2024-02-27 15:13 | RAD REPORT ---
EXAM DESCRIPTION: CT - Head angio - 02/27/2024 3:01 pm CLINICAL HISTORY: syncope/TIA COMPARISON: No comparisons TECHNIQUE: CT angiography of the head was performed with maximum intensity reformatted images. 3D ma ximum intensity pixel (MIP) reconstructions were created All CT scans are performed using dose optimization technique as appropriate and may include automated exposure control or mA/KV adjustment according to patient size. FINDINGS: Anterior circulation: No aneurysm or large vessel occlusion. No hemodynamically significant stenosis. No arteriovenous malf ormation identified. Posterior circulation: No aneurysm or large vessel occlusion. Severe focal stenosis of the left intracranial vertebral arter y. No arteriovenous malformation identified. IMPRESSION: No large vessel occlusion or aneurysm identified. The left vertebral artery has a severe focal stenosis proximally.
--- NOTE | 2024-02-27 15:20 | RAD REPORT ---
EXAM DESCRIPTION: CT - Neck Angio - 02/27/2024 3:01 pm CLINICAL HISTORY: syncope/TIA COMPARISON: Head C Spine Mpr Wo Con dated 02/26/2024; Head C Spine Mpr Wo Con dated 12/28/2023; Carotid Artery Bilateral dated 02/27/2024 TECHNIQUE: CT angiography of the neck vessels was performed with maximum intensity reformatted image s. CAROTID STENOSIS REFERENCE USING NASCET CRITERIA: Mild - <50% stenosis. Moderate - 50-69% stenosis. Severe - 70-94% stenosis. Near occlusion - 95-99% stenosis. Occluded - 100% stenosis. All CT scans are performed using dose optimization technique as appropriate and may include automated exposure control or mA/KV adjustment according to patient size. FINDINGS: A left aortic arch is identified with normal three vessel configuration of the great vesse ls. No significant flow abnormality is seen of the common carotid bilaterally. Severe (greater than 70%) stenosis of the right ICA with focal stenosis just beyond the carotid bulb. Calcified and noncalcified plaque at the left ICA results in a mild less than 50% stenosis. The right vertebral artery is patent. Severe stenosis of the left proximal vertebral artery at its or igin. The left vertebral artery is nondominant. IMPRESSION: 1. Severe (>70% stenosis) of the right mid ICA. 2. Mild (<50% stenosis) of the left proximal ICA. 3. Severe stenosis of the nondominant left vertebral artery at its origin. 4. The common carotid arteries and right vertebral artery are patent.
--- NOTE | 2024-02-27 17:16 | P.DS ---
Admission Date: 02/26/24 Discharge Date: 02/27/24 Disposition: ROUTINE DISCHARGE Discharge Condition: GOOD Reason for Admission: Syncope Brief History of Present Illness: 68yo male with past medical history of CVA, history of brain bleed status post surgery, history of possible POTS syndrome who came to ER with generalized weakness and fall and was brought to ER. Patient states that he had a stroke previously with mild residual deficits on the right side. He used to have dizziness and generalized weakness and passed out episodes especially movement movement. Patient denies any fever or chills. Denies any chest pain or shor tness of breath.. Denies any nausea vomiting or diarrhea. Today patient was standing from sitting position when all of a sudden he got dizzy and fell down with a loss of consciousness about 30 minutes as per the patient. Denies any seizure-like activity. Patient was assessed in the ER and had a CT which showed no acute changes Patient is being admitted for further management Physical Exam General: Alert, In no apparent distress, Oriented x3 HEENT: Atraumatic, Normocephalic Neck: Supple, 2+ carotid pulse no bruit Respiratory: Clear to auscultation bilaterally, Normal air movement Cardiovascular: Regular rate/rhythm, Normal S1 S2, No gallops Capillary refill: <2 Seconds Gastrointestinal: Soft and benign, W/out hepatosplenomegaly, No ascites, No tenderness Musculoskeletal: No clubbing, No swelling Integumentary: No rashes, No breakdown Neurological: Normal speech, Normal strength at 5/5 x4 extr, Cranial nerves 3-12 intact, Normal reflexes 2+ Lymphatics: No axilla or inguinal lymphadenopathy Hospital Course: 68yo male with past medical history of CVA, history of brain bleed status post surgery, history of possible POTS syndrome who came to ER with generalized weakness and fall and was brought to ER. Patient states that he had a stroke previously with mild residual deficits on the right side. He used to have dizziness and generalized weakness and passed out episodes especially movement movement. Was noted to have syncope, collapse. Condition improved with IV fluids, hydration Patient tolerating diet, stable for discharge to home with follow-up appointment with primary care physician. Follow-up with neurology after to PROBLEM: Syncope, collapse orthostatic vital signs were not POTS syndrome-instructed on hydration Dehydration, treated with IV fluids on admission Rad/Lab/Micro: Orthostatic vital signs stable 02/26 CT neck IMPRESSION: 1. Severe (>70% stenosis) of the right mid ICA. 2. Mild (<50% stenosis) of the left proximal ICA. 3. Severe stenosis of the nondominant left vertebral artery at its origin. 4. The common carotid arteries and right vertebral artery are patent. 5/ CTA of the head-IMPRESSION: No large vessel occlusion or aneurysm identified. The left vertebral artery has a severe focal stenosis proximally CT of the head Chest x-ray no acute abnormality / CT of the cervical spine CT CERVICAL SPINE WITHOUT CONTRAST: No fracture or subluxation.No prevertebral soft tissues swelling is identified. Mild cervical spondylosis with neural foraminal narrowing at C4-5 and C5-6 that is mild. No high grade spinal stenosis identified.IMPRESSION: No acute intracranial or cervical spine findings / Carotid ultrasound MPRESSION: Severe (greater than 70% stenosis but less than occlusion) at the right mid ICA. Moderate (50-69%) stenosis of the left mid ICA Continue home medicines as previously prescribed GOAL: Clear understanding of disease process INSTRUCTIONS: Physician Discharge Instructions: -Follow-up with PCP in 1 to 2 weeks -Please call Dr. Hensley at [phone] if any questions regarding hospital stay -Please call nursing station at [phone] if any nursing or medication questions -Return to the emergency room if symptoms worsen Diet: ADA, low sodium Activity: Fall precautions Vital Signs/Physical Exam: Temp Pulse Resp BP Pulse Ox 97.6 F 80 16 149/79 H 97 02/27/24 12:04 02/27/24 16:20 02/27/24 12:04 02/27/24 16:20 02/27/24 12:04 Laboratory Data at Discharge: WBC 5.50 thou/uL (4.3-10.9) 02/27/24 06:34 Hgb 13.1 g/dL (13.6-17.9) L 02/27/24 06:34 Hct 38.1 % (39.6-49.0) L 02/27/24 06:34 Plt Count 315 thou/uL (152-406) 02/27/24 06:34 PT 11.9 SECONDS (9.5-12.5) 02/26/24 19:21 INR 1.08 02/26/24 19:21 Sodium 137 mEq/L (136-145) 02/27/24 06:34 Potassium 3.9 mEq/L (3.5-5.1) 02/27/24 06:34 BUN 12 mg/dL (7-18) 02/27/24 06:34 Creatinine 0.70 mg/dL (0.70-1.30) 02/27/24 06:34 Glucose 306 mg/dL (74-106) H 02/27/24 06:34 Magnesium 1.7 mg/dL (1.6-2.4) 02/26/24 19:21 Total Bilirubin 0.4 mg/dL (0.2-1.0) 02/27/24 06:34 AST < 4 U/L (15-37) L 02/27/24 06:34 ALT 14 U/L (16-61) L 02/27/24 06:34 Alkaline Phosphatase 76 U/L (45-117) 02/27/24 06:34 Home Medications: Aspirin [Aspirin EC] 2 tab PO DAILY #60 02/27/24 Carvedilol [Coreg] 12.5 mg PO BID 02/27/24 Insulin -Regular Human [Novolin -R*] 3 ml SQ SEECOM 02/27/24 Insulin Glargine,Hum.rec.anlog [Lantus Solostar] 100 unit SQ SEECOM 02/27/24 Losartan Potassium 25 mg PO DAILY 02/27/24 Metformin HCl [Glucophage*] 500 mg PO DAILY 02/27/24 Rosuvastatin [Crestor*] 10 mg PO DAILY 02/27/24 New Medications: Aspirin [Aspirin EC] 2 tab PO DAILY #60 Physician Discharge Instructions: -DC IV and DC home -Follow-up with PCP in 1 to 2 weeks -Follow-up with Cardiology in 1 to 2 weeks -Please call Dr. Hensley at [phone] if any questions regarding hospital stay -Please call nursing station at [phone] if any nursing or medication questions -Return to the emergency room if symptoms worsen Diet: AHA Activity: Fall precautions Followup: CHI CHAIDEZ [Primary Care Provider] - Time spent managing pt's care (in minutes): 55
--- NOTE | 2024-02-27 18:56 | CON ---
Date of Consultation: 02/27/2024 Reason For Consultation: Syncope. History Of Present Illness: This is a 68-year-old male with history of coronary artery disease, cherrie estive heart failure, carotid stenosis, CVA, heart attack, bypass surgery, multiple cardiac stents pr ior to the bypass, hypertension, presented with syncopal episode. He was checking his blood pressure at home and he stood up to put the blood pressure machine where it belongs. For that he has to bend over and then he felt very dizzy and when he stood up, collapsed on the floor and then regained cons ciousness. Denies having any palpitations or any arrhythmia, feeling just lightheadedness and his bl ood pressure when he took it was 111/64, which was low. In the past, he was on Entresto and carvedil ol. Entresto was stopped due to low blood pressure. At the present time, he is asymptomatic. Denie s having chest pain. Past Medical History: As outlined above in the HPI. Medications: Refer reconciliation sheet for detailed list. Allergies: MORPHINE. Family History: No premature coronary artery disease or cancer. Social History: He does not smoke or drink. Does not use any drugs. Review of Systems: All systems reviewed are negative except mentioned in HPI. Physical Examination: Vital Signs: Reviewed. Head and Neck: Pupils are equal, reactive to light. Intact eye movements. No JVD. No cervical lym phadenopathy. Neck is supple. Thyroid is not enlarged. Lungs: Clear to auscultation bilaterally. No rhonchi, wheezing, or crackles. No accessory muscle u se. Heart: Regular rate and rhythm. No extra sounds. Abdomen: Soft, nontender. Bowel sounds positive. No organomegaly. No masses or hernia. No rigidi ty or rebound. Extremities: No edema, clubbing, or cyanosis. Intact pulses. Skin: No rash. No nodule. Neurologic: Alert, awake, oriented x3. No acute focal deficits appreciated. Investigations: Cardiac enzymes x4 are negative. BUN 12, creatinine 0.70. Assessment/recommendation: 1.Syncope, likely orthostatic hypotension from low blood pressure. Recommend to back off on his [place] and carvedilol doses comparing to what he takes at home. Monitor on telemetry for any arrhythm ias. Obtain echocardiogram. Cardiac enzymes have been negative. 2.Coronary artery disease. No chest pain. Cardiac enzymes are negative. I do not believe there is arrhythmia involved, but I still recommend post discharge an event monitor. 3.Dyslipidemia. Continue Crestor. 4.Diabetes. Sugar seems to be controlled. SR/MODL Voice ID: [id number] Report ID: [id number]
--- NOTE | 2024-02-28 06:43 | P.PN ---
Subjective Date of Service: 02/28/24 Chief Complaint: Syncope 68yo male with past medical history of CVA, history of brain bleed status post surgery, history of possible POTS syndrome who came to ER with generalized weakness and fall and was brought to ER. Patient states that he had a stroke previously with mild residual deficits on the right side. He used to have dizziness and generalized weakness and passed out episodes especially movement movement. Orthostatic VS, will ambulate to PT today, PT eval cardiology consult ordered CT of the head and neck moderate stentosis - Physical Exam General: Alert, In no apparent distress, Oriented x3 HEENT: Atraumatic, Normocephalic Neck: Supple, 2+ carotid pulse no bruit Respiratory: Clear to auscultation bilaterally, Normal air movement Cardiovascular: Regular rate/rhythm, Normal S1 S2, No gallops Capillary refill: <2 Seconds Gastrointestinal: Soft and benign, W/out hepatosplenomegaly, No ascites, No tenderness Musculoskeletal: No clubbing, No swelling Integumentary: No rashes, No breakdown Neurological: Normal speech, Normal strength at 5/5 x4 extr, Cranial nerves 3-12 intact, Normal reflexes 2+ Lymphatics: No axilla or inguinal lymphadenopathy <Susana Jama - Last Filed: 02/28/24 06:42> Date of Service: 02/28/24 <Esther Hensley - Last Filed: 02/29/24 16:15> Review of Systems Per HPI <Susana Jama - Last Filed: 02/28/24 06:42> Physical Examination - Vital Signs Temperature: 98.3 F Blood Pressure: 125/60 Pulse: 78 Respirations: 16 Pulse Ox (%): 97 <Susana Jama - Last Filed: 02/28/24 06:42> Assessment And Plan - Plan Assessment and Plan Syncope and collapse Fall Monitor closely on telemetry CT head negative for any acute changes Syncopal workup Will get a cardiology evaluation Orthostatic vital sign PT eval Cardiology consult Rad/Lab/Micro: Orthostatic vital signs stable 02/26 CT neck IMPRESSION: 1. Severe (>70% stenosis) of the right mid ICA. 2. Mild (<50% stenosis) of the left proximal ICA. 3. Severe stenosis of the nondominant left vertebral artery at its origin. 4. The common carotid arteries and right vertebral artery are patent. 02/26 CTA of the head-IMPRESSION: No large vessel occlusion or aneurysm identifi ed. The left vertebral artery has a severe focal stenosis proximally CT of the head Chest x-ray no acute abnormality / CT of the cervical spine CT CERVICAL SPINE WITHOUT CONTRAST: No fracture or subluxation.No prevertebral soft tissues swelling is identified. Mild cervical spondylosis with neural foraminal narrowing at C4-5 and C5-6 that is mild. No high grade spinal stenosis identified.IMPRESSION: No acute intracranial or cervical spine findings / Carotid ultrasound MPRESSION: Severe (greater than 70% stenosis but less than occlusion) at the right mid ICA. Moderate (50-69%) stenosis of the left mid ICA POTS Syndrome History of CVA History of SDH No acute changes at this time CT head at this time is negative Continue home medications Dehydration IV hydration GI/DVT prophylaxis Advance directive full code Discharge Plan: Home - Code Status/Comfort Care Code Status: Full Code Critical Care: No Time Spent Managing PTS Care (In Minutes): 35 <Susana Jama - Last Filed: 02/28/24 06:42>
[2024-02-28 07:14] LABS: Magnesium 1.8 mg/dL (1.6-2.4)
[2024-02-28] MEDS: ROSUVASTATIN 10 MG TAB PO SCH (20:21)
[2024-02-29 00:34] VITALS: BP 140/74; TEMP 98.2
--- NOTE | 2024-02-29 08:31 | P.PN ---
Subjective Date of Service: 02/29/24 Chief Complaint: Syncope Subjective: No new changes, No C/O voiced <Suki Escalona - Last Filed: 02/29/24 08:28> Date of Service: 02/29/24 <Ghanshyam Valeriokamrynharley C - Last Filed: 02/29/24 12:40> Review of Systems 10-point ROS is otherwise unremarkable General: As per HPI Cardiovascular: As per HPI Neurological: As per HPI <Suki Escalona - Last Filed: 02/29/24 08:28> Physical Examination - Vital Signs Temperature: 98.2 F Blood Pressure: 140/74 Pulse: 61 Respirations: 16 Pulse Ox (%): 97 - Physical Exam General: Alert, In no apparent distress, Oriented x3, Cooperative HEENT: Atraumatic, Normocephalic Neck: Supple Respiratory: Normal air movement Cardiovascular: No edema, Normal pulses, Regular rate/rhythm, Other (CABG scar) Capillary refill: <2 Seconds Gastrointestinal: Normal bowel sounds Musculoskeletal: No clubbing, No swelling Integumentary: No rashes, No breakdown Neurological: Normal speech, Normal tone Lymphatics: No axilla or inguinal lymphadenopathy External genitalia: Deferred Rectal: Deferred <Suki Escalona - Last Filed: 02/29/24 08:28> Assessment And Plan - Plan Problems (Diagnosis) (1) Syncope and collapse Current Visit: Yes Status: Acute Plan: Syncope and collapse Monitor closely on telemetry CT head negative for any acute changes Syncopal workup Will get a cardiology evaluation 02/29/24 + carotid 80% blockage, will f/u vascular but needs cardio clearance. Awaiting ECHO this am History of CVA History of SDH No acute changes at this time CT head at this time is negative Continue home medications Dehydration IV hydration GI/DVT prophylaxis Advance directive full code - Code Status/Comfort Care Code Status Assessed: Yes (Full) <Suki Escalona - Last Filed: 02/29/24 08:28> - Plan Pt seen and examined. I agree with the note by the ELECTRONIC SALES AND SERVICE TECHNICIAN. Will f/u Echo for cardiac clearance for CEA. Pt will follow up with Dr. Serrano in [place] for the CEA. <Silver Valerio - Last Filed: 02/29/24 12:40>
[2024-02-29 09:07] VITALS: O2SAT 97
--- NOTE | 2024-02-29 12:33 | P.PN ---
Subjective Date of Service: 02/29/24 Chief Complaint: Syncope Subjective: No new changes Review of Systems 10-point ROS is otherwise unremarkable Physical Examination - Vital Signs Temperature: 98.2 F Blood Pressure: 140/74 Pulse: 61 Respirations: 16 Pulse Ox (%): 97 - Physical Exam General: Alert, Oriented x3 Neck: Supple Respiratory: Clear to auscultation bilaterally Cardiovascular: No edema, Normal S1 S2 Gastrointestinal: Normal bowel sounds Assessment And Plan - Current Problems (Diagnosis) (1) CAD (coronary artery disease), autologous vein bypass graft Current Visit: Yes Status: Acute Plan: stable, no troponin leak, continue to monitor. continue ASA 81 mg daily. (2) Carotid artery disease Current Visit: Yes Status: Acute Plan: CTA neck shows significant right ICA disease, referral placed for surgery to evaluate for intervention. (3) Syncope and collapse Current Visit: Yes Status: Acute Plan: most likely orthostatic in nature. advised patient that he will need to get with his outpatient cnc operator programmer for 30 days event monitor.
--- NOTE | 2024-02-29 14:39 | ECHO ---
HEIGHT: 6 ft 1 in WEIGHT: 164 lb 5 oz DATE OF STUDY: 02/29/[address]: Xu Higginbotham DO 2-DIMENSIONAL: YES M.MODE: YES DOPPLER: YES COLOR FLOW: YES TDS: PORTABLE: YES DEFINITY: BUBBLE STUDY: DIAGNOSIS: SYNCOPE CARDIAC HISTORY: CATHERIZATION: YES SURGERY: YES PROSTHETIC VALVE: PACEMAKER: MEASUREMENTS (cm) DIASTOLIC (NORMALS) SYSTOLIC (NORMALS) IVSd 0.9 (0.6-1.2) LA Diam 3.8 (1.9-4.0) LVEF 50-55% LVIDd 4.2 (3.5-5.7) LVIDs 3.2 (2.0-3.5) %FS 24% LVPWd 0.9 (0.6-1.2) Ao Diam (2.0-3.7) 2 DIMENSIONAL ASSESSMENT: RIGHT ATRIUM: NORMAL LEFT ATRIUM: NORMAL RIGHT VENTRICLE: NORMAL LEFT VENTRICLE: NORMAL TRICUSPID VALVE: NORMAL MITRAL VALVE: MILD MITRAL REGURGITATION PULMONIC VALVE: NORMAL AORTIC VALVE: NORMAL PERICARDIAL EFFUSION: NONE AORTIC ROOT: NORMAL LEFT VENTRICULAR WALL MOTION: NORMAL DOPPLER/COLOR FLOW: SEE BELOW COMMENTS: 1. NORMAL LEFT VENTRICULAR EJECTION FRACTION 50-55% 2. NORMAL WALL MOTION 3. MILD MITRAL REGURGITATION TECHNOLOGIST: AILYN LIN
--- NOTE | 2024-02-29 14:45 | EKG ---
Test Date: 2024-02-26 Test Time: 19:29:20 Dimpling Machine Operator: CECELIA MEASUREMENT RESULTS: Intervals: Rate: 77 OK: 192 QRSD: 146 QT: 410 QTc: 463 [place]: P: 72 OK: 192 QRS: 44 T: 80 INTERPRETIVE STATEMENTS: Normal sinus rhythm Right bundle branch block Abnormal ECG Compared to ECG 12/28/2023 17:36:52 No significant changes Electronically Signed On 02-29-24 14:39:41 CDT by Stone Choi
--- NOTE | 2024-02-29 15:30 | P.DS ---
Admission Date: 02/28/24 Discharge Date: 02/29/24 Reason for Admission: Syncope Consultations: Dr. Verma Brief History of Present Illness: 68yo male with past medical history of CVA, history of brain bleed status post surgery, history of possible POTS syndrome who came to ER with generalized weakness and fall and was brought to ER. Patient states that he had a stroke previously with mild residual deficits on the right side. He used to have dizziness and generalized weakness and passing out episodes especially movement related. Patient denies any fever or chills. Denies any chest pain or shortness of breath.. Denies any nausea vomiting or diarrhea. Today patient was standing from sitting position when all of a sudden he got dizzy and fell down with a loss of consciousness about 30 minutes as per the patient. Denies any seizure-like activity.Patient was assessed in the ER and had a CT which showed no acute changes. Hospital Course: Mr. Sheehan did well over the course of his hospitalization. He was seen by Dr. Verma. Dr. 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 His carotid ultrasound showed significant right internal carotid artery disease. Dr. Hoover was contacted with a referral for evaluation for intervention and is able to see the patient within 1 week. <Suki Escalona - Last Filed: 02/29/24 15:35> Admission Date: 02/28/24 Discharge Date: 03/01/24 Hospital Course: Pt seen and examined. I agree with the note by the CONSTRUCTION MANAGER. Pt will need to vaascular surgeon for CEA. Ok to discharge pt. <Silver Valerio - Last Filed: 03/01/24 22:01> Disposition: DC HOME/HOME HEALTH CARE Discharge Condition: GOOD Vital Signs/Physical Exam: Temp Pulse Resp BP Pulse Ox 98.2 F 61 16 140/74 97 02/29/24 12:33 02/29/24 12:33 02/29/24 12:33 02/29/24 12:33 02/29/24 12:33 General: Alert, In no apparent distress, Oriented x3 HEENT: Atraumatic Neck: Supple, JVD not distended Respiratory: Normal air movement Cardiovascular: Normal pulses, Regular rate/rhythm, Other (scar from Bypass 2013) Capillary refill: <2 Seconds Gastrointestinal: Soft and benign Musculoskeletal: No clubbing, No swelling Integumentary: No rashes Neurological: Normal speech, Normal tone Lymphatics: No axilla or inguinal lymphadenopathy External genitalia: Deferred Rectal: Deferred Laboratory Data at Discharge: WBC 5.50 thou/uL (4.3-10.9) 02/27/24 06:34 Hgb 13.1 g/dL (13.6-17.9) L 02/27/24 06:34 Hct 38.1 % (39.6-49.0) L 02/27/24 06:34 Plt Count 315 thou/uL (152-406) 02/27/24 06:34 PT 11.9 SECONDS (9.5-12.5) 02/26/24 19:21 INR 1.08 02/26/24 19:21 Sodium 140 mEq/L (136-145) 02/28/24 06:34 Potassium 4.0 mEq/L (3.5-5.1) 02/28/24 06:34 BUN 13 mg/dL (7-18) 02/28/24 06:34 Creatinine 0.58 mg/dL (0.70-1.30) L 02/28/24 06:34 Glucose 142 mg/dL (74-106) H 02/28/24 06:34 Magnesium 1.8 mg/dL (1.6-2.4) 02/28/24 06:34 Total Bilirubin 0.4 mg/dL (0.2-1.0) 02/27/24 06:34 AST < 4 U/L (15-37) L 02/27/24 06:34 ALT 14 U/L (16-61) L 02/27/24 06:34 Alkaline Phosphatase 76 U/L (45-117) 02/27/24 06:34 <Escalona,Suki Erik - Last Filed: 02/29/24 15:35> Vital Signs/Physical Exam: Temp Pulse Resp BP Pulse Ox 98.2 F 61 16 140/74 97 02/29/24 12:33 02/29/24 12:33 02/29/24 12:33 02/29/24 12:33 02/29/24 12:33 Laboratory Data at Discharge: WBC 5.50 thou/uL (4.3-10.9) 02/27/24 06:34 Hgb 13.1 g/dL (13.6-17.9) L 02/27/24 06:34 Hct 38.1 % (39.6-49.0) L 02/27/24 06:34 Plt Count 315 thou/uL (152-406) 02/27/24 06:34 PT 11.9 SECONDS (9.5-12.5) 02/26/24 19:21 INR 1.08 02/26/24 19:21 Sodium 140 mEq/L (136-145) 02/28/24 06:34 Potassium 4.0 mEq/L (3.5-5.1) 02/28/24 06:34 BUN 13 mg/dL (7-18) 02/28/24 06:34 Creatinine 0.58 mg/dL (0.70-1.30) L 02/28/24 06:34 Glucose 142 mg/dL (74-106) H 02/28/24 06:34 Magnesium 1.8 mg/dL (1.6-2.4) 02/28/24 06:34 Total Bilirubin 0.4 mg/dL (0.2-1.0) 02/27/24 06:34 AST < 4 U/L (15-37) L 02/27/24 06:34 ALT 14 U/L (16-61) L 02/27/24 06:34 Alkaline Phosphatase 76 U/L (45-117) 02/27/24 06:34 <Silver Valerio - Last Filed: 03/01/24 22:01> Diet: AHA Activity: Fall precautions <Escalona,Suki Erik - Last Filed: 02/29/24 15:35> <Silver Valerio - Last Filed: 03/01/24 22:01> Home Medications: Aspirin [Aspirin EC] 2 tab PO DAILY #60 02/27/24 Carvedilol [Coreg] 12.5 mg PO BID 02/27/24 Insulin -Regular Human [Novolin -R*] 3 ml SQ SEECOM 02/27/24 Insulin Glargine,Hum.rec.anlog [Lantus Solostar] 100 unit SQ SEECOM 02/27/24 Losartan Potassium 25 mg PO DAILY 02/27/24 Metformin HCl [Glucophage*] 500 mg PO BID 02/27/24 Rosuvastatin [Crestor*] 10 mg PO BEDTIME 02/27/24 Magnesium Oxide [Magnesium] 1 cap PO DAILY 02/28/24 [place]-3/Dha/Epa/Fish Oil [Fish Oil 1,000 mg Softgel] 1 cap PO DAILY 02/28/24 Ubidecarenone [Co Q-10] 1 cap PO DAILY 02/28/24 Vitamin D3/Vitamin K2 (Mk4) [K2 Plus D3 Tablet] 1 tab PO DAILY 02/28/24 New Medications: Aspirin [Aspirin EC] 2 tab PO DAILY #60 Physician Discharge Instructions: -DC IV and DC home -Follow-up with PCP in 1 to 2 weeks -Follow-up with Cardiology in 1 to 2 weeks -Please call Dr. Valerio at [phone] if any questions regarding hospital stay -Please call nursing station at [phone] if any nursing or medication questions -Return to the emergency room if symptoms worsen Mr. Sheehan did well over the course of his hospitalization. He was seen by Dr. Verma. Dr. 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 His carotid ultrasound showed significant right internal carotid artery disease. Dr. Hoover was contacted with a referral for evaluation for intervention and is able to see the patient within [address] Ron Hoover P:[phone] [place] [id number] Followup: Stone Choi MD [ACTIVE - CAN ADMIT] - [facility] CHAIDE[facility] [Primary Care Provider] - 1-2 Weeks
== END 2024-02-29 16:56 | disposition home health service (06) | DRG 68 ==
LOC: ER 18:59 → 2ND 22:49 → OBSVTOIN 02-28 19:20
PROVIDERS: ADMIT Family Medicine; ATTEND Hospitalist
DX: I65.21 Occlusion and stenosis of right carotid artery (principal); I69.351 Hemiplegia and hemiparesis following cerebral infarction affecting right dominant side; I95.1 Orthostatic hypotension; E86.0 Dehydration; I10 Essential (primary) hypertension; E78.5 Hyperlipidemia, unspecified; E11.9 Type 2 diabetes mellitus without complications; G90.A Postural orthostatic tachycardia syndrome [POTS]; I25.10 Atherosclerotic heart disease of native coronary artery without angina pectoris; I25.2 Old myocardial infarction; Z79.4 Long term (current) use of insulin; Z95.5 Presence of coronary angioplasty implant and graft; Z79.82 Long term (current) use of aspirin; Z79.84 Long term (current) use of oral hypoglycemic drugs; Z79.02 Long term (current) use of antithrombotics/antiplatelets; Z79.899 Other long term (current) drug therapy
CPT/HCPCS: 36415; 70450; 70496; 70498; 71045; 72125; 80048; 80053; 80076; 81003; 82947; 83735; 83880; 84484; 85025; 85610; 93005; 93306; 93880; 94760; 97116; 97161; 97530; 99285; G0378; J1650; J1815; J7030; Q9967

== ENCOUNTER 2024-05-04 11:18 | Emergency (ER) | payer OTHER ==
--- OUTSIDE RECORDS SUMMARY | 2024-05-04 11:23 | XMS REPORT | Continuity of Care Document ---
Author Name Unknown Address [address] [facility] [address] [place] [id number] [facility] Address [address] [facility] 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 Name Role Phone Pat Styles Primary Care Physician + [phone] RON HOOVER Attending Clinician Unavailable ALLYSON FINK Attending Clinician Unavailable OBI-DORENE, IRIS Attending Clinician Unavailab yannick OBI-DORENE, [place] Attending Clinician Unavailab Pat Harden Attending Clinician [phone] Allyson Fink MD Attending Clinician [phone] Michelle Olmstaed LCSW Attending Clinician [phone] PAT CHAIDEZ Attending Clinician Unavailable Pob, [facility] Attending Clinician Unavailabl e Doctor Unassigned, [place] Attending Clinician U Rosalva Felix Attending Clinician + [phone], [facility] Attending Clinician Unavailable Krishan Cowart MD Attending Clinician [phone] Lasha Aguilar MD Attending Clinician [phone] LASHA AGUILAR Attending Clinician Unavail able LASHA AGUILAR Attending Clinician Unavail able IDALIA HART Attending Clinician Unavailab Deandra Fenton RN Attending Clinician Unav Debbie Carrington LMSW Attending Clinician Unava ilRON Chapman Admitting Clinician Unavailable Payers Payer Name Policy Type Policy Number Effective Date Expirati on Date Source FRIEDA OMNTERO PLS O [id number] 2023 00:00:00 [employer] [place] [id number] 2024 00:00:00 Problems Condition Name Condition Details Condition Category Status Onset Date Resolution Date Last Treatment Date Treating Clinician Comments Source Carotid stenosis, bilateral Carotid stenosis, bilateral Disease Active 16 00:00: 00 [facility] Syncope and collapse Syncope and collapse Disease Active 09 00:00: 00 [facility] Type 2 diabetes mellitus, with long-term current use of insulin Type 2 diabetes mellitus, with long-term current use of insulin Disease Active 01-03 00:00: 00 [facility] Bilateral carotid artery stenosis Bilateral carotid artery stenosis Disease Active 12-27 00:00: 00 [facility] Hyperlipid emia, unspecifie d hyperlipid emia type Hyperlipid emia, unspecifie d hyperlipid emia type Disease Active 3- 00:00: 00 [facility] Primary hypertensi on Primary hypertensi on Disease Active 3- 00:00: 00 [facility] HFrEF (heart failure with reduced ejection fraction) HFrEF (heart failure with reduced ejection fraction) Disease Active 3-04 00:00: 00 [facility] Coronary artery disease involving viejas coronary artery of viejas heart without angina pectoris Coronary artery disease involving viejas coronary artery of viejas heart without angina pectoris Disease Active 3-04 00:00: 00 [facility] At risk for falls At risk for falls Disease Active 2- 00:00: 00 [facility] Unspecifie d abnormalit ies of gait and mobility Unspecifie d abnormalit ies of gait and mobility Disease Active 2- 00:00: 00 [facility] Allergies, Adverse Reactions, Alerts Allergy Name Allergy Type Status Severity Reaction(s) Onset Date Inactive Date Treating Clinician Comments Source MORPHINE DRUG INGREDI Active Unknown-Cmnt 2 00:00: [address] [facility] EMPAGLIF LOZIN DRUG INGREDI Active Unknown-Cmnt 11-27 00:00: 00 [facility] Empaglif lozin Propensi ty to adverse reaction s Active Unknown - See comments 11-27 00:00: 00 [facility] Morphine Propensi ty to adverse reaction s Active Unknown - See comments 11-27 00:00: 00 [facility] NO KNOWN ALLERGIE S Drug Class Active [facility] Social History Social Habit Start Date Stop Date Quantity Comments Source History of tobacco use Cigarette Smoker [facility] Alcoholic beverage intake 2024-04-15 00:00:00 2024-04-15 00:00:00 Lifetime non-drinker (finding) [facility] History of Social function 2024-03-23 00:00:00 2024-03-23 00:00:00 [facility] Alcohol intake 2023-12-29 00:00:00 2023-12-29 00:00:00 Lifetime non-drinker (finding) [facility] Tobacco use and exposure 2023-11-27 00:00:00 2023-11-27 00:00:00 Smokeless tobacco non-user [facility] Sex assigned at 1955 00:00:00 1955 00:00:00 [facility] Smoking Status Start Date Stop Date Source Tobacco smoking consumption unknown [facility] Ex-smoker 2023-11-27 00:00:00 2023-11-27 00:00:00 [facility] Medications Ordered Medication Name Filled Medication Name Start Date Stop Date Current Medication? Ordering Clinician Indication Dosage Frequency Signature (SIG) Comments Components Source dulaglutide (TRULICITY) 1.5 mg/0.5 mL PnIj 04-14 00:00: 00 Yes [id number] 1.5mg inject 1 Pen under the skin weekly. [facility] rosuvastati n (CRESTOR) 20 mg tablet 04-04 00:00: 00 Yes [id number] 20mg Take 1 tablet by mouth in the morning. [facility] aspirin 81 mg chewable tablet 04 14:01: 42 Yes 81mg Take 1 tablet by mouth in the morning. [facility] ubidecareno ne (CO Q-10 ORAL) 03-24 12:31: 01 Yes Take by mouth. [facility] Magnesium Oxide 500 mg Cap 03-24 12:31: 01 Yes Take by mouth. [facility] aspirin 81 mg chewable tablet 03-24 12:31: 01 Yes 81mg Take 1 tablet by mouth in the morning. [facility] HYDROcodone -acetaminop hen 5-325 mg tablet 03-24 00:00: 00 04-01 04:59 :00 Yes [id number] 1{tbl} Take 1 tablet by mouth every 6 (six) hours as needed for Pain (scale 4-6) or Pain (scale 7-10) for up to 7 days. Indication s: acute pain [facility] Sliding Scale Insulin - Lispro (HumaLOG) 03-23 17:00: 00 Yes Subcutaneo us, TID MEALS+HS, First dose (after last modificati on) on Thu03/23/24 at 1200, Until Discontinu ed, Routine [facility] sennosides- docusate sodium (SENOKOT-S) 8.6-50 mg per tablet 1 tablet 03-23 14:00: 00 Yes 1{tbl} 1 tablet, Oral, DAILY, First dose on Thu03/23/24 at 0900, Until Discontinu ed, Routine [facility] pantoprazol e (PROTONIX) EC tablet 40 mg 03-23 14:00: 00 Yes 40mg 40 mg, Oral, DAILY, First dose on Thu03/23/24 at 0900, Until Discontinu ed, Routine, Indication for use: None of the above [facility] metoprolol succinate XL (TOPROL XL) tablet 25 mg 03-23 14:00: [address] [facility] aspirin chewable tablet 81 mg 03-23 14:00: 00 Yes 81mg 81 mg, Oral, DAILY, First dose on Thu03/23/24 at 0900, Until Discontinu ed, Routine [facility] insulin glargine (LANTUS U-100) injection 30 Units 03-23 12:30: 00 Yes 30U 30 Units, Subcutaneo us, DAILY, First dose on Thu03/23/24 at 0730, Until Discontinu ed, Routine [facility] magnesium sulfate in water 2 gram/50 mL (4 %) infusion 2 g 03-23 10:45: 00 03-23 11:40 :00 No 2g 2 g, IV Piggyback, Administer over 60 Minutes, ONCE, 1 dose, On Thu03/23/24 at 0545, Routine [facility] NORepinephr ine (LEVOPHED) 4 mg/250 mL in 0.9% NaCl infusion 03-23 05:20: 08 03-23 11:30 :23 No .01ug/k g/min 0.01-0.08 mcg/kg/min ?72.7 kg (2.7263-21 .81 mL/hr, rounded to 2.73-21.81 mL/hr), IV Infusion, TITRATE, MAP Goal > or = 65 mmHg, Starting on Thu03/23/24 at 0020, For 24 hours, Initiate titration at 0.05 mcg/kg/min . Increase by 0.01 mcg/kg/min every 30 seconds to 5 minutes as needed to reach and maintain goal blood pressure. Maximum dose = 0.5 mcg/kg/min . If goal not maintained at maximum allowed dose, contact prescriber . Administer only one peripheral intravenou s vasopresso r at a time. [facility] albumin (ALBUTEIN 5 %) 5 % injection 12.5 g 03-23 03:30: 00 03-23 03:43 :00 No 12.5g 12.5 g, IV Infusion, ONCE, 1 dose, On Thu03/22/24 at 2230, 250 mL, Indication : SHOCK/IMPE NDING SHOCK [facility] Sliding Scale Insulin - Lispro (HumaLOG) 03-23 03:15: 00 03-23 13:05 :34 No Subcutaneo us, TID MEALS+HS, First dose (after last modificati on) on Thu03/22/24 at 2215, Until Discontinu ed, Routine [facility] rosuvastati n (CRESTOR) tablet 10 mg 03-23 02:00: 00 Yes 10mg 10 mg, Oral, QHS, First dose on Thu03/22/24 at 2100, Until Discontinu ed, Routine [facility] heparin (porcine) injection 5,000 Units 03-22 19:00: 00 Yes 5000U 5,000 Units, Subcutaneo us, Q8H, First dose on Thu03/22/24 at 1400, Until Discontinu ed, Routine [facility] insulin glargine (LANTUS U-100) injection 30 Units 03-22 18:52: 00 03-22 20:49 :00 No 30U 30 Units, Subcutaneo us, ONCE, 1 dose, On Thu03/22/24 at 1400, Routine [facility] magnesium sulfate in water 2 gram/50 mL (4 %) infusion 2 g 03-22 18:45: 00 03-22 19:36 :00 No 2g 2 g, IV Piggyback, Administer over 60 Minutes, ONCE, 1 dose, On Thu03/22/24 at 1345, Routine [facility] Sliding Scale Insulin - Lispro (HumaLOG) 03-22 17:00: 00 03-23 02:43 :52 No Subcutaneo us, TID MEALS+HS, First dose on Thu03/22/24 at 1200, Until Discontinu ed, Routine [facility] acetaminoph en (TYLENOL) tablet 1,000 mg 03-22 16:49: 59 Yes 1000mg 1,000 mg, Oral, Q8HPRN, Starting on Thu03/22/24 at 1149, Until Discontinu ed, Routine, Pain (scale 1-3) [facility] HYDROcodone -acetaminop hen (NORCO) 10-325 mg tablet 1 tablet 03-22 16:49: 34 Yes 1{tbl} 1 tablet, Oral, Q6HPRN, Starting on Thu03/22/24 at 1149, Until Discontinu ed, Routine, Pain (scale 7-10) [facility] HYDROcodone -acetaminop hen (NORCO 5) 5-325 mg tablet 1 tablet 03-22 16:48: 44 Yes 1{tbl} 1 tablet, Oral, Q6HPRN, Starting on Thu03/22/24 at 1148, Until Discontinu ed, Routine, Pain (scale 4-6) [facility] glucagon (GLUCAGEN DIAGNOSTIC KIT) injection 1 mg 03-22 16:19: [address] [facility] dextrose 50 % in water (D50W) injection 25 mL 03-22 16:19: [address] [facility] ondansetron (ZOFRAN (PF)) injection 4 mg 03-22 16:18: [address] [facility] bupivacaine (preserv free) (SENSORCAIN E MPF) 0.25 % (2.5 mg/mL) injection 03-22 15:41: 00 03-22 16:34 :55 No PRN, Starting on Thu03/22/24 at 1041, Until Thu03/22/24 at 1134, Routine, Intra-op [facility] heparin 1,000 unit/mL injection 03-22 13:50: 00 03-22 16:34 :55 No PRN, Starting on Thu03/22/24 at 0850, Until Thu03/22/24 at 1134, Routine, Intra-op [facility] metoprolol succinate XL 25 mg 24 hr tablet 03-03 00:00: 00 Yes [id number] 25mg Take 1 tablet by mouth in the morning. [facility] carvediloL (COREG) 12.5 mg tablet 01-28 00:00: 00 03-03 00:00 :00 No [id number] 12.5mg Take 1 tablet by mouth in the morning and 1 tablet in the evening. Take with meals. [facility] flash glucose sensor (FREESTYLE SARAH 2 SENSOR) Kit 01-03 00:00: 00 Yes 1{kit} 1 Kit every 2 (two) weeks. [facility] dulaglutide (TRULICITY) 1.5 mg/0.5 mL PnIj 01-03 00:00: 00 04-14 00:00 :00 No [id number] 1.5mg inject 1 Pen under the skin weekly. [facility] ubidecareno ne (CO Q-10 ORAL) 15:03: 08 Yes Take by mouth. [facility] Magnesium Oxide 500 mg Cap 15:03: 08 Yes Take by mouth. [facility] aspirin 81 mg chewable tablet 15:01: 19 Yes 81mg Take 1 tablet by mouth in the morning. [facility] carvediloL (COREG) 12.5 mg tablet 15:01: 19 Yes 12.5mg Take 1 tablet by mouth in the morning and 1 tablet in the evening. Take with meals. [facility] losartan 25 mg tablet 12-11 12:23: 41 12-11 00:00 :00 No 25mg Take 1 tablet by mouth in the morning. [facility] aspirin 81 mg chewable tablet 12-11 12:23: 11 Yes 81mg Take 1 tablet by mouth in the morning. [facility] carvediloL (COREG) 12.5 mg tablet 12-11 12:23: 11 Yes 12.5mg Take 1 tablet by mouth in the morning and 1 tablet in the evening. Take with meals. [facility] BD ULTRAFINE III MINI PEN 31 gauge x 3/16" Ndle 12-11 00:00: 00 Yes USE DIRECTED [address] [facility] Blood-Gluco se Sensor (FREESTYLE SARAH 3 SENSOR) Nasreen 12-11 00:00: 00 Yes [id number] Use as directed [facility] losartan 25 mg tablet 12-11 00:00: 00 04-04 00:00 :00 No [id number] 25mg Take 1 tablet by mouth in the morning. [facility] rosuvastati n (CRESTOR) 10 mg tablet 12-11 00:00: 00 04-04 00:00 :00 No [id number] 10mg Take 1 tablet by mouth at bedtime. [facility] dulaglutide (TRULICITY) 1.5 mg/0.5 mL PnIj 12-11 00:00: 00 01-03 00:00 :00 No [id number] 1.5mg inject 1 Pen under the skin weekly for [address] [facility] metFORMIN 500 mg tablet 11-27 15:49: 42 11-27 00:00 :00 No 500mg Take 1 tablet by mouth in the morning and 1 tablet in the evening. Take with meals. [facility] Insulin Glargine (LANTUS SOLOSTAR U-100 INSULIN) 100 unit/mL (3 mL) injection 11-27 15:49: 42 11-27 00:00 :00 No 20U inject 20 Units under the skin in the morning. [facility] insulin aspart U-100 (NOVOLOG FLEXPEN U-100 INSULIN) 100 unit/mL (3 mL) injection 11-27 15:49: 42 11-27 00:00 :00 No 10U inject 10 Units under the skin in the morning and 10 Units at noon and 10 Units in the evening. inject before meals. Inject 5 to 10 units three times a day with meals [facility] aspirin 81 mg chewable tablet 11-27 15:47: 56 Yes 81mg Take 1 tablet by mouth in the morning. [facility] losartan 25 mg tablet 11-27 15:47: 56 Yes 25mg Take 1 tablet by mouth in the morning. [facility] carvediloL (COREG) 12.5 mg tablet 11-27 15:47: 56 Yes 12.5mg Take 1 tablet by mouth in the morning and 1 tablet in the evening. Take with meals. [facility] carvedilol 1.25 mg/mL oral suspension 11-27 15:45: 05 11-27 00:00 :00 No 12.5mg Take 10 mL by mouth in the morning and 10 mL in the evening. Take with meals. 1 tab by mouth twice a day [facility] Insulin Glargine (LANTUS SOLOSTAR U-100 INSULIN) 100 unit/mL (3 mL) injection 11-27 00:00: 00 Yes [id number] 20U inject 20 Units under the skin in the morning. [facility] insulin aspart U-100 (NOVOLOG FLEXPEN U-100 INSULIN) 100 unit/mL (3 mL) injection 11-27 00:00: 00 Yes [id number] 10U inject 10 Units under the skin in the morning and 10 Units at noon and 10 Units in the evening. inject before meals. Inject 5 to 10 units three times a day with meals [facility] Insulin Glargine (LANTUS SOLOSTAR U-100 INSULIN) 100 unit/mL (3 mL) injection 11-27 00:00: 00 Yes [id number] 20U inject 20 Units under the skin in the morning. [facility] metFORMIN 500 mg tablet 11-27 00:00: 00 Yes [id number] 500mg Take 1 tablet by mouth in the morning and 1 tablet in the evening. Take with meals. [facility] Vital Signs Vital Name Observation Time Observation Value Comments S suraj Systolic blood pressure 2024-04-14 20:11:00 139 mm[Hg] [facility] Diastolic blood pressure 2024-04-14 20:11:00 79 mm[Hg] [facility] Heart rate 2024-04-14 20:11:00 85 /min [facility] Body temperature 2024-04-14 20:11:00 36.78 Mera [facility] Respiratory rate 2024-04-14 20:11:00 20 /min [facility] Body height 2024-04-14 20:11:00 182.9 cm [facility] Body weight 2024-04-14 20:11:00 72.576 kg [facility] BMI 2024-04-14 20:11:00 21.70 kg/m2 [facility] Oxygen saturation in Arterial blood by Pulse oximetry 2024-04-14 20:11:00 97 /min [facility] Systolic blood pressure 2024-04-04 18:40:00 122 mm[Hg] his personal machine [facility] Diastolic blood pressure 2024-04-04 18:40:00 64 mm[Hg] his personal machine [facility] Heart rate 2024-04-04 18:40:00 87 /min [facility] Respiratory rate 2024-04-04 18:38:00 16 /min [facility] Body height 2024-04-04 18:38:00 182.9 cm [facility] Body weight 2024-04-04 18:38:00 70.081 kg [facility] BMI 2024-04-04 18:38:00 20.95 kg/m2 [facility] Oxygen saturation in Arterial blood by Pulse oximetry 2024-04-04 18:38:00 96 /min [facility] Systolic blood pressure 2024-03-29 18:53:00 121 mm[Hg] [facility] Diastolic blood pressure 2024-03-29 18:53:00 74 mm[Hg] [facility] Heart rate 2024-03-29 18:53:00 82 /min [facility] Body temperature 2024-03-29 18:53:00 36.72 Mera [facility] Respiratory rate 2024-03-29 18:53:00 15 /min [facility] Body weight 2024-03-29 18:53:00 72.349 kg [facility] BMI 2024-03-29 18:53:00 21.63 kg/m2 [facility] Oxygen saturation in Arterial blood by Pulse oximetry 2024-03-29 18:53:00 97 /min [facility] Systolic blood pressure 2024-03-24 16:12:00 125 mm[Hg] [facility] Diastolic blood pressure 2024-03-24 16:12:00 69 mm[Hg] [facility] Heart rate 2024-03-24 16:12:00 71 /min [facility] Body temperature 2024-03-24 16:12:00 36.28 Mera [facility] Respiratory rate 2024-03-24 16:12:00 18 /min [facility] Oxygen saturation in Arterial blood by Pulse oximetry 2024-03-24 16:12:00 96 /min [facility] Body weight 2024-03-24 08:43:00 73.426 kg [facility] BMI 2024-03-24 08:43:00 21.95 kg/m2 [facility] Body height 2024-03-22 10:28:00 182.9 cm [facility] Systolic blood pressure 2024-03-22 16:45:00 105 mm[Hg] [facility] Diastolic blood pressure 2024-03-22 16:45:00 56 mm[Hg] [facility] Heart rate 2024-03-22 16:45:00 88 /min [facility] Body temperature 2024-03-22 16:45:00 37.11 Mera [facility] Respiratory rate 2024-03-22 16:45:00 13 /min [facility] Oxygen saturation in Arterial blood by Pulse oximetry 2024-03-22 16:45:00 96 /min [facility] Body height 2024-03-22 10:28:00 182.9 cm [facility] Body weight 2024-03-22 10:28:00 72.7 kg [facility] BMI 2024-03-22 10:28:00 21.74 kg/m2 [facility] Systolic blood pressure 2024-03-10 19:51:00 129 mm[Hg] [facility] Diastolic blood pressure 2024-03-10 19:51:00 74 mm[Hg] [facility] Heart rate 2024-03-10 19:51:00 91 /min [facility] Body temperature 2024-03-10 19:49:00 36.78 Mera [facility] Respiratory rate 2024-03-10 19:49:00 20 /min [facility] Body height 2024-03-10 19:49:00 182.9 cm [facility] Body weight 2024-03-10 19:49:00 73.029 kg [facility] BMI 2024-03-10 19:49:00 21.84 kg/m2 [facility] Oxygen saturation in Arterial blood by Pulse oximetry 2024-03-10 19:49:00 97 /min [facility] Systolic blood pressure 2024-03-03 17:08:00 146 mm[Hg] [facility] Diastolic blood pressure 2024-03-03 17:08:00 82 mm[Hg] [facility] Heart rate 2024-03-03 17:07:00 75 /min [facility] Body temperature 2024-03-03 17:07:00 36.39 Mera [facility] Respiratory rate 2024-03-03 17:07:00 18 /min [facility] Body height 2024-03-03 17:07:00 182.9 cm [facility] Body weight 2024-03-03 17:07:00 73.936 kg [facility] BMI 2024-03-03 17:07:00 22.11 kg/m2 [facility] Oxygen saturation in Arterial blood by Pulse oximetry 2024-03-03 17:07:00 98 /min [facility] Systolic blood pressure 2024-03-03 13:42:00 134 mm[Hg] [facility] Diastolic blood pressure 2024-03-03 13:42:00 81 mm[Hg] [facility] Heart rate 2024-03-03 13:42:00 77 /min [facility] Respiratory rate 2024-03-03 13:42:00 18 /min [facility] Body height 2024-03-03 13:42:00 182.9 cm [facility] Body weight 2024-03-03 13:42:00 72.848 kg [facility] BMI 2024-03-03 13:42:00 21.78 kg/m2 [facility] Oxygen saturation in Arterial blood by Pulse oximetry 2024-03-03 13:42:00 98 /min [facility] Systolic blood pressure 2024-03-03 06:38:00 135 mm[Hg] [facility] Diastolic blood pressure 2024-03-03 06:38:00 75 mm[Hg] [facility] Heart rate 2024-03-03 06:38:00 77 /min [facility] Body temperature 2024-03-03 06:38:00 35.78 Mera [facility] Respiratory rate 2024-03-03 06:38:00 26 /min [facility] Oxygen saturation in Arterial blood by Pulse oximetry 2024-03-03 06:38:00 97 /min [facility] Body height 2024-03-03 04:21:00 182.9 cm [facility] Body weight 2024-03-03 04:21:00 73.936 kg [facility] BMI 2024-03-03 04:21:00 22.11 kg/m2 [facility] Systolic blood pressure 2024-02-25 17:44:00 130 mm[Hg] [facility] Diastolic blood pressure 2024-02-25 17:44:00 82 mm[Hg] [facility] Heart rate 2024-02-25 17:44:00 83 /min [facility] Body temperature 2024-02-25 17:44:00 36.61 Mera [facility] Respiratory rate 2024-02-25 17:44:00 18 /min [facility] Body height 2024-02-25 17:44:00 182.9 cm [facility] Body weight 2024-02-25 17:44:00 73.483 kg [facility] BMI 2024-02-25 17:44:00 21.97 kg/m2 [facility] Oxygen saturation in Arterial blood by Pulse oximetry 2024-02-25 17:44:00 97 /min [facility] Systolic blood pressure 2023-12-29 18:10:00 142 mm[Hg] [facility] Diastolic blood pressure 2023-12-29 18:10:00 72 mm[Hg] [facility] Heart rate 2023-12-29 18:10:00 65 /min [facility] Respiratory rate 2023-12-29 18:10:00 19 /min [facility] Body height 2023-12-29 18:10:00 182.9 cm [facility] Body weight 2023-12-29 18:10:00 77.61 kg [facility] BMI 2023-12-29 18:10:00 23.21 kg/m2 [facility] Oxygen saturation in Arterial blood by Pulse oximetry 2023-12-29 18:10:00 98 /min [facility] Systolic blood pressure 2023-12-28 15:14:00 135 mm[Hg] [facility] Diastolic blood pressure 2023-12-28 15:14:00 74 mm[Hg] [facility] Heart rate 2023-12-28 15:14:00 65 /min [facility] Body temperature 2023-12-28 15:14:00 36.39 Mera [facility] Respiratory rate 2023-12-28 15:14:00 18 /min [facility] Body height 2023-12-28 15:14:00 182.9 cm [facility] Body weight 2023-12-28 15:14:00 74.753 kg [facility] BMI 2023-12-28 15:14:00 22.35 kg/m2 [facility] Oxygen saturation in Arterial blood by Pulse oximetry 2023-12-28 15:14:00 98 /min [facility] Systolic blood pressure 2023-12-24 20:59:00 136 mm[Hg] [facility] Diastolic blood pressure 2023-12-24 20:59:00 71 mm[Hg] [facility] Heart rate 2023-12-24 20:59:00 70 /min [facility] Body temperature 2023-12-24 20:59:00 36.61 Mera [facility] Respiratory rate 2023-12-24 20:59:00 20 /min [facility] Body height 2023-12-24 20:59:00 182.9 cm [facility] Body weight 2023-12-24 20:59:00 76.204 kg [facility] BMI 2023-12-24 20:59:00 22.78 kg/m2 [facility] Oxygen saturation in Arterial blood by Pulse oximetry 2023-12-24 20:59:00 98 /min [facility] Systolic blood pressure 2023-12-11 18:16:00 141 mm[Hg] [facility] Diastolic blood pressure 2023-12-11 18:16:00 82 mm[Hg] [facility] Heart rate 2023-12-11 18:16:00 72 /min [facility] Body temperature 2023-12-11 18:16:00 36.33 Mera [facility] Body height 2023-12-11 18:16:00 182.9 cm [facility] Body weight 2023-12-11 18:16:00 75.297 kg [facility] BMI 2023-12-11 18:16:00 22.51 kg/m2 [facility] Oxygen saturation in Arterial blood by Pulse oximetry 2023-12-11 18:16:00 98 /min [facility] Systolic blood pressure 2023-11-27 21:36:00 136 mm[Hg] [facility] Diastolic blood pressure 2023-11-27 21:36:00 80 mm[Hg] [facility] Heart rate 2023-11-27 21:36:00 72 /min [facility] Body temperature 2023-11-27 21:36:00 36.61 Mera [facility] Respiratory rate 2023-11-27 21:36:00 17 /min [facility] Body height 2023-11-27 21:36:00 182.9 cm [facility] Body weight 2023-11-27 21:36:00 75.388 kg [facility] BMI 2023-11-27 21:36:00 22.54 kg/m2 [facility] Oxygen saturation in Arterial blood by Pulse oximetry 2023-11-27 21:36:00 98 /min [facility] Procedures Procedure Date / Time Performed Performing Clinician Source POCT GLUCOSE (AUTOMATED) 2024-03-24 13:41:00 Christi Hoover [facility] PHOSPHORUS 2024-03-24 09:31:[address] [facility] ([facility]OMATED) 2024-03-23 21:55:00 Christi Hoover [facility] POCT GLUCOSE (AUTOMATED) 2024-03-23 20:49:00 Sneha [facility] POCT GLUCOSE (AUTOMATED) 2024-03-23 16:48:00 Sneha, [facility] POCT GLUCOSE (AUTOMATED) 2024-03-23 16:48:00 Sneha, [facility] POCT GLUCOSE (AUTOMATED) 2024-03-23 12:34:00 Sneha [facility] POCT GLUCOSE (AUTOMATED) 2024-03-23 12:34:00 Sneha [facility] PHOSPHORUS 2024-03-23 07:57:[address] [facility] MAGNESIUM 2024-03-23 07:57:[address] [facility] IONIZED CALCIUM 2024-03-23 07:57:00 Ruby Fabian [facility] BASIC METABOLIC PANEL (NA, K, CL, CO2, GLUCOSE, BUN, CREATININE, CA) 2024-03-23 07:57:00 Jomar [facility] CBC WITH DIFF 2024-03-23 07:57:00 Ed aHdley [facility] PHOSPHORUS 2024-03-23 07:57:[address] [facility] MAGNESIUM 2024-03-23 07:57:00 Jomar [facility] IONIZED CALCIUM 2024-03-23 07:57:00 Ruby Fabian [facility] BASIC METABOLIC PANEL (NA, K, CL, CO2, GLUCOSE, BUN, CREATININE, CA) 2024-03-23 07:57:00 Jomar [facility] CBC WITH DIFF 2024-03-23 07:57:00 Ed Hadley [facility] POCT GLUCOSE (AUTOMATED) 2024-03-23 02:15:00 Sneha [facility] POCT GLUCOSE (AUTOMATED) 2024-03-23 02:15:00 Sneha [facility] POCT GLUCOSE (AUTOMATED) 2024-03-22 22:22:00 Sneha [facility] POCT GLUCOSE (AUTOMATED) 2024-03-22 22:22:00 Christi Hoover [facility] POCT GLUCOSE (AUTOMATED) 2024-03-22 18:10:00 Christi Hoover [facility] POCT GLUCOSE (AUTOMATED) 2024-03-22 18:10:00 Christi Hoover [facility] PHOSPHORUS 2024-03-22 16:30:[address] [facility] MAGNESIUM 2024-03-22 16:30:[address] [facility] BASIC METABOLIC PANEL (NA, K, CL, CO2, GLUCOSE, BUN, CREATININE, CA) 2024-03-22 16:30:00 Ed Hadley [facility] CBC WITH DIFF 2024-03-22 16:30:00 Jomar Ed [facility] MRSA / MSSA SCREEN BY PCRKIT 2024-03-22 16:30:00 Ed Hadley [facility] PHOSPHORUS 2024-03-22 16:30:[address] [facility] MAGNESIUM 2024-03-22 16:30:[address] [facility] BASIC METABOLIC PANEL (NA, K, CL, CO2, GLUCOSE, BUN, CREATININE, CA) 2024-03-22 16:30:00 Ed Hadley [facility] CBC WITH DIFF 2024-03-22 16:30:00 Jomar Ed [facility] MRSA / MSSA SCREEN BY PCRKIT 2024-03-22 16:30:00 Ed Hadley [facility] POCT GLUCOSE (AUTOMATED) 2024-03-22 16:28:00 Christi Hoover [facility] POCT GLUCOSE (AUTOMATED) 2024-03-22 16:28:00 [facility] 2024-03-22 12:05:00 Ernesto Hoover [facility] CAROTID ENDARTERECTOMY 2024-03-22 12:05:00 Ernesto Hoover [facility] ABORH CONFIRMATION (LAB ONLY) 2024-03-22 10:59:00 Monica Owens [facility] ABORH CONFIRMATION (LAB ONLY) 2024-03-22 10:59:00 Monica Owens [facility] POCT GLUCOSE(AGE >30DAYS) 2024-03-22 10:49:00 Monica Owens Leia [facility] POCT GLUCOSE(AGE >30DAYS) 2024-03-22 10:49:00 Monica Owens [facility] POCT GLUCOSE (AUTOMATED) 2024-03-22 10:48:00 Christi Hoover [facility] POCT GLUCOSE (AUTOMATED) 2024-03-22 10:48:00 Christi Hoover [facility] HB ABO GROUPING 2024-03-19 15:46:00 Ron Hoover [facility] EKG-12 LEAD 2024-03-03 06:28:35 Rosalva Finch [facility] POCT GLUCOSE (AUTOMATED) 2024-03-03 06:01:00 [facility] CT HEAD WO CONTRAST 2024-03-03 05:06:59 Gee Finch [facility] TROPONIN I 2024-03-03 04:41:00 Rosalva Finch [facility] BASIC METABOLIC PANEL (NA, K, CL, CO2, GLUCOSE, BUN, CREATININE, CA) 2024-03-03 04:41:00 Dao [facility] CBC WITH DIFF 2024-03-03 04:41:00 Dao [facility] POCT GLUCOSE (AUTOMATED) 2024-03-03 04:15:00 Gladis Finch [facility] EXTERNAL PROVIDER RECORDS 2024-01-12 05:01:00 Do ctor Unassigned, [place] [facility] AUTHORIZATION TO RELEASE PHI TO [facility] 2023-12-29 06:01:00 Doctor Unassigned, [place] [facility] HB ECG ROUTINE & RHYTHM STRIP 2023-12-28 15:18:11 Allyson Fink [facility] DME/SUPPLY JUSTIFICATION 2023-12-07 06:01:00 Doc tor Unassigned, [place] [facility] ASSIGNMENT OF BENEFITS 2023-11-27 21:19:25 Docto r Unassigned, [place] [facility] Encounters Start Date/Time End Date/Time Encounter Type Admission Type Attending Clinicians Care Facility Care Department Encounter ID Source 2024-05-26 13:20:00 2024-05-26 13:20:00 Outpatient R Jean-Pierre TOTHZOMA JOE [facility] [id number] [facility] 2024-05-03 11:00:00 2024-05-03 11:00:00 Outpatient R RON HOOVER [facility] [id number] [facility] 2024-04-29 00:00:00 2024-04-29 13:34:24 [facility] 1.2.840.114 350.1.13.10 4.2.7.2.[id number] [facility] 2024-04-14 15:15:00 2024-04-14 15:46:47 Outpatient R RON HOOVER [facility] [id number] [facility] 2024-04-14 15:15:00 2024-04-14 15:46:47 Office Visit Ron Hoover [facility] 1..840.114 350.1.13.10 4.2.7.2.[id number] [facility] 2024-04-14 00:00:00 2024-04-14 13:31:03 Pat Sommer [facility] 1.2.840.114 350.1.13.10 4.2.7.2.[id number] [facility] 2024-04-04 13:40:00 2024-04-04 13:54:04 Outpatient R ALLYSON FINK [facility] [id number] [facility] 2024-04-04 13:40:00 2024-04-04 13:54:04 Office Visit Allyson Fink [facility] 1.2.840.114 350.1.13.10 4.2.7.2.[id number] [facility] 2024-03-29 00:00:00 2024-03-31 12:22:49 Patient Outreach IshanMichelle Asha [facility] 1.2.840.114 350.1.13.10 4.2.7.2.[id number] [facility] 2024-03-29 14:00:00 2024-03-29 14:39:14 Outpatient R PAT CHAIDEZ [facility] [id number] [facility] 2024-03-29 14:00:00 2024-03-29 14:39:14 Office Visit Pat Chaidez [facility] 1.2.840.114 350.1.13.10 4.2.7.2.[id number] [facility] 2024-03-22 05:22:00 2024-03-24 12:30:00 Inpatient R RON HOOVER [facility] [id number] [facility] 2024-03-22 05:22:00 2024-03-24 12:30:00 Hospital Encounter Sneha, Ron [facility] 1.2.840.114 350.1.13.10 4.2.7.2.[id number] [facility] 2024-03-23 00:00:00 2024-03-23 14:50:58 Telephone Pat Chaidez [facility] 1.2.840.114 350.1.13.10 4.2.7.2.[id number] [facility] 2024-03-22 07:20:00 2024-03-22 11:52:00 Surgery Ron Hoover [facility] 1.2840.114 350.1.13.10 4.2.7.2.[id number] 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 2024-03-19 10:30:00 2024-03-19 10:30:00 Outpatient R SNEHA RON [facility] [id number] [facility] 2024-03-17 00:00:00 2024-03-17 16:04:33 Telephone Pat Chaidez [facility] 1.2840.114 350.1.13.10 4.2.7.2.[id number] [facility] 2024-03-14 00:00:00 2024-03-14 13:37:35 Patient Secure Msg Doctor Unassigned, [place] [facility] 1.2.840.114 350.1.13.10 4.2.7.2.[id number] [facility] 2024-03-11 00:00:00 2024-03-11 15:05:51 Telephone Don Pat [facility] 1.2.840.114 350.1.13.10 4.2.7.2.[id number] [facility] 2024-03-10 15:00:00 2024-03-10 15:15:00 Office Visit Ron Hoover [facility] 1.2840.114 350.1.13.10 4.2.7.2.[id number] [facility] 2024-03-10 15:00:00 2024-03-10 15:00:00 Outpatient RON CARRASQUILLO [facility] [id number] [facility] 2024-03-08 13:00:00 2024-03-08 13:00:00 Outpatient RON CARRASQUILLO [facility] [id number] [facility] 2024-01-29 00:00:00 2024-03-05 18:13:43 Patient Secure Msg Doctor Unassigned, [place] [facility] 1.2.840.114 350.1.13.10 4.2.7.2.[id number] [facility] 2024-03-03 14:00:00 2024-03-03 14:00:00 Office Visit Pat Chaidez [facility] 1.2.840.114 350.1.13.10 4.2.7.2.[id number] [facility] 2024-03-03 00:00:00 2024-03-03 13:18:42 Patient Outreach Michelle Olmstead [facility] 1.2.840.114 350.1.13.10 4.2.7.2.[id number] [facility] 2024-03-03 14:00:00 2024-03-03 12:57:12 Outpatient R PAT CHAIDEZ [facility] [id number] [facility] 2024-03-03 09:20:00 2024-03-03 09:20:00 Office Visit Allyson Fink [facility] 1.2.840.114 350.1.13.10 4.2.7.2.[id number] [facility] 2024-03-03 09:20:00 2024-03-03 09:07:37 Outpatient R ALLYSON FINK [facility] E[facility] [id number] [facility] 2024-03-02 23:27:00 2024-03-03 01:59:00 Emergency [place] hasnen [facility] 1.2.840.114 350.1.13.10 4.2.7.2.[id number] [facility] 2024-03-02 00:00:00 2024-03-02 16:26:[address] 1.2.840.114 350.1.13.10 4.2.7.2.[id number] [facility] 2024-03-02 00:00:00 2024-03-02 11:17:44 Telephone Ron Hoover [facility] 1.2.840.114 350.1.13.10 4.2.7.2.[id number] [facility] 2024-03-01 00:00:00 2024-03-01 13:58:48 Patient Outreach Michelle Olmstead [facility] 1.2.840.114 350.1.13.10 4.2.7.2.[id number] [facility] 2024-02-29 00:00:00 2024-02-29 13:19:28 Telephone Ron Hoover [facility] 1.2.840.114 350.1.13.10 4.2.7.2.[id number] [facility] 2024-02-25 13:30:00 2024-02-25 13:30:00 Office Visit Chaidez Pat [facility] 1.2.840.114 350.1.13.10 4.2.7.2.[id number] [facility] 2024-02-25 13:30:00 2024-02-25 13:27:04 Outpatient PAT MOSER [facility] [id number] [facility] 2024-02-22 13:00:00 2024-02-22 14:02:15 Outpatient JATIN MOSERSSICA [facility] [id number] [facility] 2024-02-22 13:00:00 2024-02-22 13:15:00 Golf Course Mechanic Visit 2, Adc Lab Pat Chaidez [facility] 1..840.114 350.1.13.10 4.2.7.2.[id number] [facility] 2024-02-10 00:00:00 2024-02-10 00:00:00 Telephone Pat Chaidez [facility] 1.2.840.114 350.1.13.10 4.2.7.2.[id number] [facility] 2024-02-02 13:00:00 2024-02-02 13:00:00 Outpatient Joyce HOOVER RON [facility] [id number] [facility] 2024-01-29 00:00:00 2024-01-29 00:00:00 Telephone Pat Chaidez [facility] 1.2.840.114 350.1.13.10 4.2.7.2.[id number] [facility] 2024-01-19 14:00:00 2024-01-19 14:00:00 Outpatient Joyce HOOVER RON [facility] [id number] [facility] 2024-01-12 00:00:00 2024-01-12 00:00:00 Orders Only Doctor Unassigned, [place] [facility] 1..840.114 350.1.13.10 4.2.7.2.[id number] [facility] 2024-01-06 00:00:00 2024-01-06 00:00:00 Telephone SupaKrishan [facility] 1..840.114 350.1.13.10 4.2.7.2.[id number] [facility] 2024-01-04 00:00:00 2024-01-04 00:00:00 Telephone Lasha Aguilar [facility] [place]?[facility] 1.840.114 350.1.13.10 4.2.7.2.[id number] [facility] 2024-01-01 00:00:00 2024-01-01 00:00:00 Patient Secure Msg Doctor Unassigned, [place] [facility] 1.84.114 350.1.13.10 4.2.7.2.[id number] [facility] 2023-12-29 11:40:00 2023-12-29 16:54:53 Outpatient R LASHA AGUILAR HOWARD [facility] [id number] [facility] 2023-12-29 11:40:00 2023-12-29 16:54:53 Office Visit Lasha Aguilar [facility] [place]?ELINiko [facility] 1.840.114 350.1.13.10 4.2.7.2.[id number] [facility] 2023-12-29 00:00:00 2023-12-29 00:00:00 Telephone Lasha Aguilar Ayden [facility] [place]?DONI [facility] 1..840.114 350.1.13.10 4.2.7.2.[id number] [facility] 2023-12-29 00:00:00 2023-12-29 00:00:00 Orders Only Doctor Unassigned, [place] [facility] 1.20.114 350.1.13.10 4.2.7.2.[id number] [facility] 2023-12-28 09:40:00 2023-12-28 09:40:00 [facility] 1.0.114 350.1.13.10 4.2.7.2.[id number] [facility] 2023-12-28 09:40:00 2023-12-28 09:39:59 [id number] 2023-12-28 00:00:00 2023-12-28 00:00:00 Letter (Out) [facility] 1..114 350.1.13.10 4.2.7.2.[id number] [facility] 2023-12-24 16:15:00 2023-12-24 16:15:00 Office Visit Ron Hoover [facility] 1..114 350.1.13.10 4.2.7.2.[id number] [facility] 2023-12-24 16:15:00 2023-12-24 15:29:05 Outpatient R RON HOOVER [facility] [id number] [facility] 2023-12-11 12:30:00 2023-12-11 12:48:04 Outpatient R PAT CHAIDEZ [facility] [id number] [facility] 2023-12-11 12:30:00 2023-12-11 12:48:04 Office Visit Pat Chaidez [facility] 1..114 350.1.13.10 4.2.7.2.[id number] [facility] 2023-12-08 00:00:00 2023-12-08 00:00:00 Telephone Deandra Medina 1.2840.114 350.1.13.10 4.2.7.2.[id number] [facility] 2023-12-07 14:40:00 2023-12-07 14:40:00 Outpatient ALLYSON GUTIÉRREZ [facility] [id number] [facility] 2023-12-07 00:00:00 2023-12-07 00:00:00 Orders Only Doctor Unassigned, [place] [facility] 1.2840.114 350.1.13.10 4.2.7.2.[id number] [facility] 2023-12-02 11:45:00 2023-12-02 14:08:59 [employer] Course Mechanic Visit 2, [facility] 1.2.114 350.1.13.10 4.2.7.2.[id number] [facility] 2023-12-02 11:45:00 2023-12-02 11:45:00 Outpatient PAT MOSER [facility] [id number] [facility] 2023-12-02 00:00:00 2023-12-02 00:00:00 [facility] 1.2.114 350.1.13.10 4.2.7.2.[id number] [facility] 2023-12-02 00:00:00 2023-12-02 00:00:00 [facility] 1.20.114 350.1.13.10 4.2.7.2.[id number] [facility] 2023-12-01 00:00:00 2023-12-01 00:00:00 Patient Outreach Debbie Shah [facility] 1.2.840.114 350.1.13.10 4.2.7.2.[id number] [facility] 2023-11-27 15:30:00 2023-11-27 16:17:50 Office Visit Don Pat [facility] 1.2.840.114 350.1.13.10 4.2.7.2.[id number] [facility] 2023-11-27 15:30:00 2023-11-27 16:17:50 [id number] 2023-11-27 00:00:00 2023-11-27 00:00:00 Patient Secure Msg Doctor Unassigned, [place] [facility] 1.2.840.114 350.1.13.10 4.2.7.2.[id number] [facility] 2023-11-27 00:00:00 2023-11-27 00:00:00 Orders Only Doctor Unassigned, [place] [facility] 1.2.840.114 350.1.13.10 4.2.7.2.[id number] [facility] Results Test Description Test Time Test Comments Results Result Co mments Source [facility] GLUCOSE (AUTOMATED)2024-03-23 21:56:53* Test Item Value Reference Range Interpretation Comme nts POCT GLU (test code = 9374631599) 159 mg/dL 70-110 H Lab Interpretation (test cod e = 77689-0) Abnormal [facility] GLUCOSE (AUTOMATED)2024-03-23 20:50:05* Test Item Value Reference Range Interpretation Comme nts POCT GLU (test code = 5121653182) 164 mg/dL 70-110 H Lab Interpretation (test cod e = 50589-6) Abnormal [facility] GLUCOSE (AUTOMATED)2024-03-23 16:49:23* Test Item Value Reference Range Interpretation Comme nts POCT GLU (test code = 5302416253) 227 mg/dL 70-110 H Lab Interpretation (test cod e = 00943-3) [facility]24-[facility]-23 16:49:23* Test Item Value Reference Range Interpretation Comme nts POCT GLU (test code = 0935485673) 227 mg/dL 70-110 H Lab Interpretation (test cod e = 02640-0) Abnormal [facility] GLUCOSE (AUTOMATED)2024-03-23 12:35:20* Test Item Value Reference Range Interpretation Comme nts POCT GLU (test code = 3587192829) 195 mg/dL 70-110 H Lab Interpretation (test cod e = 74313-9) Abnormal [facility] GLUCOSE (AUTOMATED)2024-03-23 12:35:20* Test Item Value Reference Range Interpretation Comme nts POCT GLU (test code = 4732112477) 195 mg/dL 70-110 H Lab Interpretation (test cod e = 86231-6) [facility]2024-03-23 02:16:55* Test Item Value Reference Range Interpretation Comme nts POCT GLU (test code = 2574171911) 240 mg/dL 70-110 H Lab Interpretation (test cod e = 17175-9) [facility]2024-03-23 02:16:55* Test Item Value Reference Range Interpretation Comme nts POCT GLU (test code = 4111826317) 240 mg/dL 70-110 H Lab Interpretation (test cod e = 35881-4) [facility]2024-03-22 22:23:53* Test Item Value Reference Range Interpretation Comme nts POCT GLU (test code = 6485975782) 266 mg/dL 70-110 H Lab Interpretation (test cod e = 98713-1) Abnormal [facility] GLUCOSE (AUTOMATED)2024-03-22 22:23:53* Test Item Value Reference Range Interpretation Comme nts POCT GLU (test code = 4790595196) 266 mg/dL 70-110 H Lab Interpretation (test cod e = 07016-0) Abnormal [facility] GLUCOSE (AUTOMATED)2024-03-22 18:12:55* Test Item Value Reference Range Interpretation Comme nts POCT GLU (test code = 1895467149) 269 mg/dL 70-110 H Notified Provide r Lab Interpretation (test code = 75893-6) Abnormal [facility] GLUCOSE (AUTOMATED)2024-03-22 18:12:55* Test Item Value Reference Range Interpretation Comme nts POCT GLU (test code = 1127686087) 269 mg/dL 70-110 H Notified Provide r Lab Interpretation (test code = 81010-2) [facility]:14:17* Test Item Value Reference Range Interpretation Comme nts MAGNESIUM (test code = 0291257154) 1.7 mg/dL 1.7-2.4 Lab Interpretation (test cod e = 77994-9) [facility] 17:14:17* Test Item Value Reference Range Interpretation Comme nts PHOSPHORUS (test code = 1058975941) 3.0 mg/dL 2.5-5.0 Lab Interpretation (test cod e = 87773-6) [facility] (NA, K, CL, CO2, GLUCOSE, BUN, CREATININE, CA)2024-03-22 17:14:17* Test Item Value Reference Range Interpretation Comme nts NA (test code = 1763836296) 137 mmol/L 135-145 K (test code = 5897279581) 4.0 mmol/L 3.5-5.0 CL (test code = 0303210610) 109 mmol/L 98-108 H CO2 TOTAL (test code = 2579592606) 24 mmol/L 23-31 AGAP (test code = 2425378943) 4 2-16 BUN (test code = 9901483433) 14 mg/dL 7-23 GLUCOSE (test code = 9675072389) 238 mg/dL 70-110 H CREATININE (test code = 2160-0) 0.56 mg/dL 0.60-1.25 L CALCIUM (test code = 6550652842) 8.2 mg/dL 8.6-10.6 L eGFR (test code = 59726-4) 108.7 mL/min/1.73m2 CKD-EPI eGFR (2020). Assuming creatinine has been stable day-to-day for at least three months, the eGFR indicates Category G1 (>= 90 mL/min/1.73 m2) Lab Interpretation (test code = 42127-5) [facility] 17:14:17* Test Item Value Reference Range Interpretation Comme nts MAGNESIUM (test code = 7337630573) 1.7 mg/dL 1.7-2.4 Lab Interpretation (test cod e = 88999-1) [facility] 17:14:17* Test Item Value Reference Range Interpretation Comme nts PHOSPHORUS (test code = 4827080086) 3.0 mg/dL 2.5-5.0 Lab Interpretation (test cod e = 54690-2) [facility] (NA, K, CL, CO2, GLUCOSE, BUN, CREATININE, CA)2024-03-22 17:14:17* Test Item Value Reference Range Interpretation Comme nts NA (test code = 6691368331) 137 mmol/L 135-145 K (test code = 9829036435) 4.0 mmol/L 3.5-5.0 CL (test code = 3468368558) 109 mmol/L 98-108 H CO2 TOTAL (test code = 1102294528) 24 mmol/L 23-31 AGAP (test code = 2896511082) 4 2-16 BUN (test code = 5063378030) 14 mg/dL 7-23 GLUCOSE (test code = 2893733329) 238 mg/dL 70-110 H CREATININE (test code = 2160-0) 0.56 mg/dL 0.60-1.25 L CALCIUM (test code = 8816618656) 8.2 mg/dL 8.6-10.6 L eGFR (test code = 78040-2) 108.7 mL/min/1.73m2 CKD-EPI eGFR (2020). Assuming creatinine has been stable day-to-day for at least three months, the eGFR indicates Category G1 (>= 90 mL/min/1.73 m2) Lab Interpretation (test code = 52744-9) [facility] Fezp2675-16-23 16:43:11* Test Item Value Reference Range Interpretation Comme nts WBC (test code = 6690-2) 5.62 4.20-10.70 RBC (test code = 789-8) 4.32 4.26-5.52 HGB (test code = 718-7) 13.0 g/dL 12.2-16.4 HCT (test code = 4544-3) 38.8 % 38.4-49.3 MCV (test code = 787-2) 89.8 fL 81.7-95.6 MCH (test code = 785-6) 30.1 pg 26.1-32.7 MCHC (test code = 786-4) 33.5 g/dL 31.2-35.0 RDW-SD (test code = 13044-2) 39.9 fL 38.5-51.6 RDW-CV (test code = 788-0) 12.1 % 12.1-15.4 PLT (test code = 777-3) 229 150-328 MPV (test code = 91531-7) 10.0 fL 9.8-13.0 NRBC/100 WBC (test code = 8723138465) 0.0 0.0-10.0 NRBC x10^3 (test code = 7779459426) See_Comment [Automated messa ge] The system which generated this result transmitted reference range: 10*3/?L. The reference range was not used to interpret this result as normal/abnormal. GRAN MAT (NEUT) % (test code = 770-8) 82.8 % IMM GRAN % (test code = 5252232911) 0.40 % LYMPH % (test code = 736-9) 14.6 % MONO % (test code = 5905-5) 1.4 % EOS % (test code = 713-8) 0.4 % BASO % (test code = 706-2) 0.4 % GRAN MAT x10^3(ANC) (test code = 8178983199) 4.66 10*3/uL 1.99-6.95 IMM GRAN x10^3 (test code = 2866255099) 0.00-0.06 LYMPH x10^3 (test code = 731-0) 0.82 10*3/uL 1.09-3.23 L MONO x10^3 (test code = 742-7) 0.08 10*3/uL 0.36-1.02 L EOS x10^3 (test code = 711-2) 0.06-0.53 L BASO x10^3 (test code = 704-7) 0.01-0.09 Lab Interpretation (test code = 84100-4) [facility] Aqmd3373-65-94 16:43:11* Test Item Value Reference Range Interpretation Comme nts WBC (test code = 6690-2) 5.62 4.20-10.70 RBC (test code = 789-8) 4.32 4.26-5.52 HGB (test code = 718-7) 13.0 g/dL 12.2-16.4 HCT (test code = 4544-3) 38.8 % 38.4-49.3 MCV (test code = 787-2) 89.8 fL 81.7-95.6 MCH (test code = 785-6) 30.1 pg 26.1-32.7 MCHC (test code = 786-4) 33.5 g/dL 31.2-35.0 RDW-SD (test code = 93474-9) 39.9 fL 38.5-51.6 RDW-CV (test code = 788-0) 12.1 % 12.1-15.4 PLT (test code = 777-3) 229 150-328 MPV (test code = 12982-5) 10.0 fL 9.8-13.0 NRBC/100 WBC (test code = 6848347677) 0.0 0.0-10.0 NRBC x10^3 (test code = 5048555958) See_Comment [Automated messa ge] The system which generated this result transmitted reference range: 10*3/?L. The reference range was not used to interpret this result as normal/abnormal. GRAN MAT (NEUT) % (test code = 770-8) 82.8 % IMM GRAN % (test code = 7992346011) 0.40 % LYMPH % (test code = 736-9) 14.6 % MONO % (test code = 5905-5) 1.4 % EOS % (test code = 713-8) 0.4 % BASO % (test code = 706-2) 0.4 % GRAN MAT x10^3(ANC) (test code = 4580668967) 4.66 10*3/uL 1.99-6.95 IMM GRAN x10^3 (test code = 9153924529) 0.00-0.06 LYMPH x10^3 (test code = 731-0) 0.82 10*3/uL 1.09-3.23 L MONO x10^3 (test code = 742-7) 0.08 10*3/uL 0.36-1.02 L EOS x10^3 (test code = 711-2) 0.06-0.53 L BASO x10^3 (test code = 704-7) 0.01-0.09 Lab Interpretation (test code = 77120-6) Abnormal [facility] GLUCOSE (AUTOMATED)2024-03-22 16:30:20* Test Item Value Reference Range Interpretation Comme nts POCT GLU (test code = 6082294934) 250 mg/dL 70-110 H Lab Interpretation (test cod e = 15618-1) Abnormal [facility] GLUCOSE (AUTOMATED)2024-03-22 16:30:20* Test Item Value Reference Range Interpretation Comme nts POCT GLU (test code = 5267426663) 250 mg/dL 70-110 H Lab Interpretation (test cod e = 05556-1) Abnormal [facility] Confirmation (Lab Only)2024-03-22 12:34:24* Test Item Value Reference Range Interpretation Comme nts ABO & RH (test code = 20) A Positive Performed at [facility] Laboratory Services - [facility] Blood [address] [address]Nknk Free: [phone] No. [id number] [facility] Confirmation (Lab Only)2024-03-22 12:34:24* Test Item Value Reference Range Interpretation Comme nts ABO & RH (test code = 20) A Positive Performed at [facility] Laboratory Services - [facility] Blood [address] [place] [address]Ydoy Free: [phone] No. [id number] [facility] GLUCOSE (AUTOMATED)2024-03-22 10:48:44* Test Item Value Reference Range Interpretation Comme nts POCT GLU (test code = 9128832031) 204 mg/dL 70-110 H Lab Interpretation (test cod e = 16720-8) Abnormal [facility] GLUCOSE (AUTOMATED)2024-03-22 10:48:44* Test Item Value Reference Range Interpretation Comme nts POCT GLU (test code = 4969339828) 204 mg/dL 70-110 H Lab Interpretation (test cod e = 11885-2) Abnormal [facility] Ipvuaxn1970-28-37 00:00:00* Test Item Value Reference Range Interpretation Comme nts POCT Glu (age>30days) (test code = 3342) 204 mg/dL 70-110 A Lab Interpretation (test cod e = 53260-8) Abnormal [facility] Rqlguav1288-69-73 00:00:00* Test Item Value Reference Range Interpretation Comme nts POCT Glu (age>30days) (test code = 3342) 204 mg/dL 70-110 A Lab Interpretation (test cod e = 47496-8) [facility] Tqtksac3287-57-73 22:56:00* Test Item Value Reference Range Interpretation Comme nts ABO & RH (test code = 20) A POSITIVE IAT (test code = 1185) Negative [facility] GLUCOSE (AUTOMATED)2024-03-03 06:02:22* Test Item Value Reference Range Interpretation Comme nts POCT GLU (test code = 2643560434) 120 mg/dL 70-110 H Lab Interpretation (test cod e = 13116-1) Abnormal [facility] HEAD WO GAPNEBOE2841-25-11 05:47:04Exam: CT Head Without Contrast, 03/02/2024 11:45 PM. Ordering Physician: ROSALVA FINCH. History:Dizziness. Comparison: None. Technique: CT head was obtained without intravenous contrast. ?CT wasperformed according to ALARA (As Low As Reasonably Achievable). Technical Quality: Adequate Findings:Parenchyma: There is no parenchymal hemorrhage, mass effect, or midlineshift. Menon-white matter differentiation is preserved. There is no acutemajor vascular territory infarct. There are mild hypodense changes in theperiventricular and deep white matter. ? Small wedge-shaped areas ofencephalomalaciaare noted in the bilateral cerebellar hemispheres. Extra-axial and Ventricles: Thin isodense extra-axial soft tissue deep tothe craniotomy may represent dural thickening. There are no extra-axialfluid collections. Ventricles, basal cisterns, and cortical sulci aremildly enlarged, consistent with cortical volume loss. There is mildintracranial arterial calcification. Osseous and Soft Tissue: Left f rontoparietal craniotomy is noted. There ismild left ethmoid sinus mucosal thickening. There is no significant mastoidair cell opacification. Visualized orbits are unremarkable.[facility] L8511-69-25 05:18:52* Test Item Value Reference Range Interpretation Comme [facility] TROPONIN I (test code = 1903017107) 0.002 ng/mL <=0.034 ROLANDO (test code = ROLANDO) Reference (Normal) Range (defined by the 99th percentile reference limit): <= 0.034 ng/mL Note: Cardiac troponin begins to rise 3-4 hours after the onset of ischemia. Repeat in 4-6 hours if the sample was drawn within 3-4 hours of the onset of the symptom and found normal. Diagnosis of myocardial injury is made with acute changes in cTn concentrations with at least one serial sample above the 99th percentile upper reference limit (URL), taken together with the patient's clinical presentation. Biotin has been reported to cause a negative bias, interpret results relative to patient's use of biotin. Lab Interpretation (test code = 31255-8) Normal [facility] (NA, K, CL, CO2, GLUCOSE, BUN, CREATININE, CA)2024-03-03 05:06:47* Test Item Value Reference Range Interpretation Comme nts NA (test code = 1166442665) 137 mmol/L 135-145 K (test code = 7454155855) 3.8 mmol/L 3.5-5.0 CL (test code = 1893930852) 105 mmol/L 98-108 CO2 TOTAL (test code = 2210701692) 23 mmol/L 23-31 AGAP (test code = 2452984867) 9 2-16 BUN (test code = 2423300509) 18 mg/dL 7-23 GLUCOSE (test code = 5803899144) 135 mg/dL 70-110 H CREATININE (test code = 2160-0) 0.64 mg/dL 0.60-1.25 CALCIUM (test code = 3011389613) 9.3 mg/dL 8.6-10.6 eGFR (test code = 24084-2) 104.4 mL/min/1.73m2 CKD-EPI eGFR (2020). Assuming creatinine has been stable day-to-day for at least three months, the eGFR indicates Category G1 (>= 90 mL/min/1.73 m2) Lab Interpretation (test code = 51072-5) Abnormal [facility] WITH DNPJ0393-21-12 04:57:27* Test Item Value Reference Range Interpretation Comme nts WBC (test code = 6690-2) 7.47 4.20-10.70 RBC (test code = 789-8) 4.54 4.26-5.52 HGB (test code = 718-7) 14.2 g/dL 12.2-16.4 HCT (test code = 4544-3) 41.0 % 38.4-49.3 MCV (test code = 787-2) 90.3 fL 81.7-95.6 MCH (test code = 785-6) 31.3 pg 26.1-32.7 MCHC (test code = 786-4) 34.6 g/dL 31.2-35.0 RDW-SD (test code = 94769-9) 40.2 fL 38.5-51.6 RDW-CV (test code = 788-0) 12.2 % 12.1-15.4 PLT (test code = 777-3) 333 150-328 H MPV (test code = 95358-8) 10.0 fL 9.8-13.0 NRBC/100 WBC (test code = 5775094626) 0.0 0.0-10.0 NRBC x10^3 (test code = 7084776922) See_Comment [Automated messa ge] The system which generated this result transmitted reference range: 10*3/?L. The reference range was not used to interpret this result as normal/abnormal. GRAN MAT (NEUT) % (test code = 770-8) 53.1 % IMM GRAN % (test code = 2216274630) 0.30 % LYMPH % (test code = 736-9) 33.6 % MONO % (test code = 5905-5) 9.8 % EOS % (test code = 713-8) 2.3 % BASO % (test code = 706-2) 0.9 % GRAN MAT x10^3(ANC) (test code = 2939021413) 3.97 10*3/uL 1.99-6.95 IMM GRAN x10^3 (test code = 0858339589) 0.00-0.06 LYMPH x10^3 (test code = 731-0) 2.51 10*3/uL 1.09-3.23 MONO x10^3 (test code = 742-7) 0.73 10*3/uL 0.36-1.02 EOS x10^3 (test code = 711-2) 0.17 10*3/uL 0.06-0.53 BASO x10^3 (test code = 704-7) 0.07 10*3/uL 0.01-0.09 Lab Interpretation (test code = 81600-2) [facility]2024-[facility]-03 04:16:06* Test Item Value Reference Range Interpretation Comme nts POCT GLU (test code = 7827461733) 123 mg/dL 70-110 H Lab Interpretation (test cod e = 00471-7) Abnormal [facility] History and Physical Notes Date/Time Note Provider Source 2024-03-22 06:11:17 6795-06-52Y57:11:17F ormatting of this note is different from the original.Interval H&PChief complaint: Carotid stenosis, symptomaticI met the patient in the [facility] area. He confirmed he presented for scheduled Right carotid endarterectomy for symptomatic carotid stenosis with previous strokes. The patient confirmed no new diagnoses, admissions, ED visits or notable changes to their health since the clinic visit on 03/10/2024. Indication, benefits, risks, and alternatives of the procedure were discussed with the patient. All questions were answered.Physical examVitals:03/22/24 0528BP: (!) 143/74Pulse: 75Resp: 18Temp: 35.7 ?C (96.2 ?F)SpO2: 99%General: anxiousNeuro: grossly frl-ggjbiPlvr-Linbsos to OR for planned R carotid endarterectomy .Сергей Connolly? LOU HuntGY- 1 General Surgery ssociated attestation - Ron Hoover MD - 03/22/2024 7:03 AM CDT I personally examined the patient on 03/22/2024 and agree with Сергей Jones MD resident note as written with changes as below. I actively participated in the decision-making process. Please see the resident's note for additional details.Right carotid stenosis with remote history of stroke. Considered asymptomatic at this point. Risks/benefits/alternatives discussed with patient and agrees to proceed with right Lizzeth Hoover MD, RPVI, FSVSVascular Surgery WCW89Egfiri Note - Ron Hoover MD - 03/10/2024 3:00 PM CDT Vascular Surgery Clinic NoteDate of Service: 03/10/2024HISTORY OF PRESENT ILLNESS:68 year old male who comes in the clinic today for evaluation of carotid artery stenosis. Patient reports several years ago that he collapsed and had intracranial hemorrhage. He was treated initially in the [facility] and then was apparently transferred to [place] for further care. He reports that testing at that time demonstrated greater than 70% stenosis of bilateral carotid arteries but he was told that no intervention was needed at the time and he was managed medically. He reports praying after this to God to have his carotid arteries cleaned and states that on follow-up duplex imaging he was not noted to have any significant carotid disease. Reports are not available to me to review. In the interval he has not had any significant neurological defects. He is taking medications as prescribed.He comes in today for follow-up after completing his carotid duplex as well as CT angiogram. No interval neurologic events.PAST MEDICAL HISTORY:Past Medical History:Diagnosis DateBrain bleedDiabetes mellitusHypertensionKigloria Rivera Surgical History:Procedure Laterality DateCORONARY ARTERY BYPASS GRAFTCRANIOTOMYMedications:Home Medications:Current Outpatient Medications on File Prior to VisitMedication Sig Dispense Refillmetoprolol succinate XL 25 mg 24 hr tablet Take 1 tablet by mouth in the morning. 30 tablet 3dulaglutide (TRULICITY) 1.5 mg/0.5 mL PnIj inject 1 Pen under the skin weekly. 12 Pen 0flash glucose sensor (FREESTYLE SARAH 2 SENSOR) Kit 1 Kit every 2 (two) weeks. 6 Kit 1BD ULTRAFINE III MINI PEN 31 gauge x 3/16" Ndle USE DIRECTED 4 TIMES A DAYcholecalciferol, vitD3,/vit K2 (VITAMIN D3-VITAMIN K2 ORAL) Take by mouth.docosahexaenoic acid/epa (FISH OIL ORAL) Take by mouth.Magnesium Oxide 500 mg Cap Take by mouth.ubidecarenone (CO Q-10 ORAL) Take by mouth.Blood-Glucose Sensor (FREESTYLE SARAH 3 SENSOR) Nasreen Use as directed 5 Each 3losartan 25 mg tablet Take 1 tablet by mouth in the morning. 90 tablet 1rosuvastatin (CRESTOR) 10 mg tablet Take 1 tablet by mouth at bedtime. 90 tablet 1aspirin 81 mg chewable tablet Take 1 tablet by mouth in the morning.insulin aspart U-100 (NOVOLOG FLEXPEN U-100 INSULIN) 100 unit/mL (3 mL) injection inject 10 Units under the skin in the morning and 10 Units at noon and 10 Units in the evening. inject before meals. Inject 5 to 10 units three times a day with meals 3 Each 1Insulin Glargine (LANTUS SOLOSTAR U-100 INSULIN) 100 unit/mL (3 mL) injection inject 20 Units under the skin in the morning. 3 Each 1metFORMIN 500 mg tablet Take 1 tablet by mouth in the morning and 1 tablet in the evening. Take with meals. 180 tablet 1No current facility-administered medications on file prior to visit.Social HistorySocioeconomic HistoryMarital status: DivorcedTobacco UseSmoking status: FormerTypes: CigarettesSmokeless tobacco: NeverSubstance and Sexual ActivityAlcohol use: NeverDrug use: Not CurrentlyFamily HistoryProblem Relation Age of OnsetDiabetes MotherCancer MotherCoronary Heart Disease MotherHypertension MotherCoronary Heart Disease FatherHeart FatherHypertension FatherDiabetes SisterAllergies:AllergiesAllergen ReactionsJardiance [Empagliflozin] Unknown - See commentsMorphine Unknown - See commentsMake sure patient is not allergic to Contrast (Iodine): NoPhysical Exam:BP 129/74 | Pulse 91 | Temp 36.8 ?C (98.2 ?F) | Resp 20 | Ht 1.829 m (6') | Wt 73 kg (161 lb) | SpO2 97% | BMI 21.84 kg/m?No acute distressNeck is supple. No JVDChest is clear to auscultationHeart regular rate and rhythmAbdomen is soft nontender nondistendedUpper and lower extremities no clubbing cyanosis or edemaUpper and lower extremity flexors and extensors are symmetricSpeech is normal and muscles of facial expression are symmetric and intactLabs:CBC BMP LIPID PANELWBC (10*3/?L)Date Value03/02/2024 7.47NA (mmol/L)Date Value03/02/2024 137CHOL (mg/dL)Date Value12/02/2023 188MCV (fL)Date Value03/02/2024 90.3K (mmol/L)Date Value03/02/2024 3.8LDL CHOL (mg/dL)Date Value12/02/2023 132PLT (10*3/?L)Date Value03/02/2024 333 (H)CL (mmol/L)Date Value03/02/2024 105HDL (mg/dL)Date Value12/02/2023 41HGB (g/dL)Date Value03/02/2024 14.2CO2 TOTAL (mmol/L)Date Value03/02/2024 23TRIG (mg/dL)Date Value12/02/2023 74HCT (%)Date Value03/02/2024 41.0BUN (mg/dL)Date Value03/02/2024 18aPTTCREATININE (mg/dL)Date Value03/02/2024 0.64No results found for: "APTTPAT"TYPE AND SCREEN GLUCOSE (mg/dL)Date Value03/02/2024 135 (H)PT/INRNo results found for: "TSABINT" CALCIUM (mg/dL)Date Value03/02/2024 9.3No results found for: "PT"No results found for: "PTINR"Diagnosis:Carotid artery stenosisAssessment/PlanProblem #1 -duplex and CT angiogram reviewed. Has greater than 80% stenosis of the right internal carotid artery and greater than 50% stenosis on the left. Options for management discussed in detail. Will plan right carotid endarterectomy in the near near future at [place]. 10664-1Uwdahiuwr History and physical [id number], Shariq1.2.840.542493.1.13.104.2.7.2.836 060DrnmtBrvikfIH8470-60-85L75:03:46Atte nding History and physical noteTXT1.2.840.254038.1.13.104.2.7.2.72 7879|[id number] for patient iiyy49965-4Ynxinbr and physical noteLNNARRATIVEFormatted C-CDA narrative ythkYME-SPYLPBHKPB-FMIPGAXCVWHTRQM - Health[address] [employer] DffbKywrzcvxxBksodryacMOPI7051139615IDK VIHXSGEQNSEDHRQVNCF9113-44-87L17:03:461 .2.840.316018.1.72.3.15|1.2.840.504397. 1.13.104.2.7.2.727879_[id number] CAROL[facility] [place] Notes Date/Time Note Provider Source 2024-04-29 13:34:10 4956-50-17E34:34:10 Noted-Pat Garcia 34503-7Nzlwpgirh encounter QvwkLP5094-72-31L75:34:24Telephone encounter NoteTXT1.2.840.502669.1.13.104.2.7 .2.229834|[id number] for patient oouq81293-8JtqiZSBXAXFBVOEIrfroygf d C-CDA narrative oohu377387362Utgvebb R Jose [id number] 82JHKOOTQSONUXPYRYKKNTJM3515-14-73 T13:34:241.2.840.962003.1.72.3.15| 1.2.840.804595.1.13.104.2.7.2.7278 [id number] Pat Cook Jose [facility] 2024-04-29 13:02:49 1114-16-77U69:02:49 Maximus Sheehan is a 68 year old male and Amarilys with [facility] is calling to notify they will be sending over 2 orders for discharging and readmitting the pt for home Health care.Stated that [facility] has changed their billing policies and they need to readmit pt for care to follow the policies. The orders will not change the pts HH care. 27924-2Fnopaufdp encounter RjyyWP7137-35-47Z45:06:57Telephone encounter NoteTXT1.2.840.561620.1.13.104.2.7 .2.725645|[id number] for patient qshf82499-3LttbUOFRYMIFGSWUpvztxdv d C-CDA narrative [id number] S [address] [id number] 05XAJFDFEUBWBITRRREBNWHL8244-30-24 T13:06:571.2.840.861499.1.72.3.15| 1.2.840.694500.1.13.104.2.7.2.7278 [id number] Myriam Haney [place] 2024-04-14 13:27:53 6737-49-34Z11:27:53 Images from the original note were not included.Requested Renewalsdulaglutide (TRULICITY) 1.5 mg/0.5 mL PnIjSig: inject 1 Pen under the skin weekly.Disp: 12 Pen Refills: 0Start: 04/14/2024lass: eRXNon-formulary For: Type 2 diabetes mellitus without complication, with long-term current use of insulinLast ordered: 3 months ago (01/04/2024) by Pat Chaidez, FNPRx #: [id number] comment: I am out as of todayEndocrinology: Diabetes - Insulins Xyrpjc2404/14/2024 01:16 PMProtocol Details Manual review: Staff refilling for [facility], Cr lab not required to refillCr in normal range and within 360 daysValid encounter within last 12 ryucltTJW4P within 180 daysTo be filled at: [facility]/pharmacy #[id number] - [place], [place] - [address] [place] [address] AT [facility] [phone] signed by Marianela Calderon MA at 04/14/2024 1:28 PM FQK21198-7Bqupvjwfm encounter KwxxTQ4321-48-23P72:28:20Telephone encounter NoteTXT1.2.840.401098.1.13.104.2.7 .2.712117|[id number] for patient slok95749-4JygbXQWYVGOZHWQVvszchon d C-CDA narrative text[address] Pk[id number] 38QCIRJYLCNWRIVANHEILPPP3021-33-76 T13:28:201.2.840.229883.1.72.3.15| 1.2.840.719031.1.13.104.2.7.2.7278 [id number] [place] 2024-04-14 13:16:12 4530-98-24B78:16:12From: Maximus Najera: Office of Pat ChaidezSent: 04/14/2024 12:51 PM CDTSubject: Medication Renewal RequestRefills have been requested for the following medications:dulaglutide (TRULICITY) 1.5 mg/0.5 mL PnIj [Pat Leanna Don]Patient Comment: I am out as of todayPreferred pharmacy: [facility] #[id number] [facility]Del[facility] method: Pickup 78024-1Zaxxvcmox encounter ObkcYG8282-60-81Y58:16:12Telephone encounter NoteTXT1.2.840.505058.1.13.104.2.7 .2.715747|[id number] for patient opya71514-3SwngPOXFZCABHCCTpvzqyqr d C-CDA narrative text[id number] 18BJXTHRUAFWFHLPFBGFTGJZ4120-23-34 T13:16:121.2.840.347532.1.72.3.15| 1.2.840.622320.1.13.104.2.7.2.7278 [id number] [place] 2024-03-28 08:27:15 1013-87-68R76:27:15 Quanta vicente pad test 02/24/24 concerning for moderate pad. Continue risk assessment and reduction. Patient on statin 23045-0Svvvsypnn encounter XdzjQM8372-41-67S08:28:38Telephone encounter NoteTXT1.2.840.544770.1.13.104.2.7 .2.360433|2625071028QACpwurxxgw for patient hmhe29795-8QjweSZXPHWDZMCBEgrmzmss d C-CDA narrative text-FAM[facility] MEDICINE STAFFFM-[id number] 61NPGPPAXESBYUOETRTGQQDN2006-68-35 T08:28:381.2.840.017408.1.72.3.15| 1.2.840.422709.1.13.104.2.7.2.7278 [id number] [facility] 2024-03-28 08:12:35 8057-78-23D78:12:35 Records reviewed, f/u in next appointment 93243-5Bhhsftict encounter RbzaFX0985-66-46T31:13:01Telephone encounter NoteTXT1.2.840.104896.1.13.104.2.7 .2.097741|4189258846WYTvhyiueaj for patient hfde49951-3FqxvUREZDSGIOMQIjbdvqww d C-CDA narrative text-[facility] STAFF[id number] 79FIZKBGNMTQOWIQNFSFZFPF2801-79-75 T08:13:011.2.840.670587.1.72.3.15| 1.2.840.561907.1.13.104.2.7.2.7278 [id number] [facility] 2024-03-24 12:11:30 7716-84-53G16:11:30 Problem: Bleeding, Risk ofGoal: Absence of impaired coagulation signs and symptoms03/24/2024 1211 by Lakeshia Turcios RNOutcome: Adequate for discharge03/24/2024 0838 by Lakeshia Turcios RNOutcome: Progressing as expectedGoal: Absence of active bleeding03/24/2024 1211 by Lakeshia Turcios RNOutcome: Adequate for discharge03/24/2024 0838 by Lakeshia Turcios RNOutcome: Progressing as expectedProblem: Falls, Risk ofGoal: Absence of falls03/24/2024 1211 by Lakeshia Turcios RNOutcome: Adequate for discharge03/24/2024 0838 by Lakeshia Turcios RNOutcome: Progressing as expectedProblem: Discharge PlanningGoal: Adequate for discharge03/24/2024 1211 by Lakeshia Turcios RNOutcome: Adequate for discharge03/24/2024 0838 by Lakeshia Turcios RNOutcome: Progressing as expectedGoal: Effective communication03/24/2024 1211 by Lakeshia Turcios RNOutcome: Adequate for discharge03/24/2024 0838 by Lakeshia Turcios RNOutcome: Progressing as expected 43567-3Phsw of care xlclVA5795-64-44W01:11:32Plan of care noteTXT1.2.840.691124.1.13.104.2.7 .2.680937|7872008501FJWrdnfpftd for patient uvhs01747-9SehmPSJWLRMRBSDTwlqboys d C-CDA narrative [id number] Turcios RN[address] [id number] 40YQOPURZVKFSKSJZLBUPMRM4176-77-22 T12:11:321.2.840.752669.1.72.3.15| 1.2.840.728872.1.13.104.2.7.2.7278 [id number] Lakeshia Turcios RN [place] 2024-03-24 08:38:24 6009-82-04J94:38:24 Problem: Bleeding, Risk ofGoal: Absence of impaired coagulation signs and symptomsOutcome: Progressing as expectedGoal: Absence of active bleedingOutcome: Progressing as expectedProblem: Falls, Risk ofGoal: Absence of fallsOutcome: Progressing as expectedProblem: Discharge PlanningGoal: Adequate for dischargeOutcome: Progressing as expectedGoal: Effective communicationOutcome: Progressing as expected 20623-0Tbgp of care krfbHW8704-51-30C65:38:26Plan of care noteTXT1.2.840.112431.1.13.104.2.7 .2.615929|[id number] for patient ufdt51692-5CmemWXRJRXVRVVBDuwfrlmb d C-CDA narrative text[address][id number] 56WMJIIGGIIHOHXZTUOOLXUB0907-90-58 T08:38:261.2.840.828800.1.72.3.15| 1.2.840.034352.1.13.104.2.7.2.7278 79_[id number] [place] 2024-03-24 03:23:47 0927-99-01X02:23:47 Problem: Bleeding, Risk ofGoal: Absence of impaired coagulation signs and symptoms03/24/2024 032 by Jose Cruz RNOutcome: Progressing as expected03/24/2024 0323 by Jose Cruz RNOutcome: Progressing as expectedGoal: Absence of active bleeding03/24/2024 0324 by Jose Cruz RNOutcome: Progressing as expected03/24/2024 032 by Jose Cruz RNOutcome: Progressing as expectedProblem: Falls, Risk ofGoal: Absence of fallsOutcome: Progressing as expectedProblem: Discharge PlanningGoal: Adequate for dischargeOutcome: Progressing as expectedGoal: Effective communicationOutcome: Progressing as expected 80812-0Lymu of care hklyPH3886-93-44R65:24:45Plan of care noteTXT1.2.840.491505.1.13.104.2.7 .2.217711|[id number] for patient jnvn18956-1UxweRCJHNYWCVWUAxyoiclz d C-CDA narrative [id number] G Brown [id number] 53DCUQNXGBIXRXEWGNCGNMYU6660-12-96 T03:24:451.2.840.395797.1.72.3.15| 1.2.840.303256.1.13.104.2.7.2.7278 [id number] Jose Elam Anthony [facility] 2024-03-23 14:48:50 8441-13-45G46:48:50 Health assessment received from [facility] scanned in folder and placed in provider basket for review. 84326-8Qtaziunol encounter FnqaUQ2683-38-72T69:49:37Telephone encounter NoteTXT1.2.840.790135.1.13.104.2.7 .2.470496|[id number] for patient vsku23481-7MfecTHDHJXIKFBTKaxzzbal d C-CDA narrative cxqt752281815Mvrbumf D [address]TXTX[address] 08FDNEVJYNGSZRFPDDWRDIKD0742-96-17 T14:49:371.2.840.947410.1.72.3.15| 1.2.840.872553.1.13.104.2.7.2.7278 79_[id number] [facility] 21:46:38 5478-45-82A89:46:38 Problem: Bleeding, Risk ofGoal: Absence of impaired coagulation signs and symptomsOutcome: Progressing as expectedGoal: Absence of active bleedingOutcome: Progressing as expected 94349-4Wqyw of care izigCO6977-78-66B22:46:58Plan of care noteTXT1.2.840.230095.1.13.104.2.7 .2.637609|7830299023MMAkdscises for patient zroc57449-3VgdoQKJVCDWYEELHoqpjbph d C-CDA narrative [id number] C Nnabuife RN[address]vdGal[address]onGalvestonTXTX[address] 86LOPCTJGUFBPYLAJCIKPMZF9727-67-76 T21:46:581.2.840.859945.1.72.3.15| 1.2.840.856249.1.13.104.2.7.2.7278 [id number] Steven Ambrose RN [place] 2024-03-22 08:19:00 0116-09-43L23:19:00 FULL OPERATIVE NOTEDate of Surgery: 03/22/2024Faculty physician: MD [facility] Hospitalident physician: MD Hadley Alexis; Proa? Сергей HuntAnesthesia Type: general - GETAPre-operative diagnosis: Right carotid artery stenosis, asymptomaticPost-operative diagnosis: sameProcedures:Right internal carotid endarterectomy with patch angioplasty with bovine pericardiumIndications:This patient presented with distant history of intracranial hemorrhage after collapse at OSH. At that time, patient underwent workup that revealed bilateral carotid stenosis and was told no intervention needed to be perofrmed. Patient presented to vascular surgery clinic to establish care. CTA was done showing severe R ICA stenosis of about 80%. Options for treatment were discussed with the patient as well as potential complications, and patient decided to move forward with the procedure. Informed consent was obtained.Narrative:The patient was taken to the operating room and placed on the operating room table in the supine position. After induction of general anesthesia, the patient was repositioned with a shoulder roll and the neck extended. The right neck was then sterilely prepped and draped in the usual fashion. The procedure began with a skin incision along the anterior border of the sternocleidomastoid muscle. The incision was deepened through the subcutaneous tissue and the platysma using electrocautery. Dissection was continued sharply along the anterior border of the sternocleidomastoid muscle and the carotid sheath entered. The common facial vein was identified circumferentially dissected ligated and divided with silk ties. The common carotid artery was identified inferiorly in the wound and circumferentially dissected. It was controlled with umbilical tape. The vagus nerve was identified posterior to the carotid and carefully mobilized and protected. The carotid was then dissected more superiorly and the carotid bifurcation identified. Overlying the bifurcation was the right hypoglossal nerve. Dissection was carried out along the lateral border to gently mobilize and protect from injury. The proximal external carotid was circumferentially controlled. Dissection was continued along of the internal carotid until we were well past the area of disease. The patient was then heparinized. The internal carotid, the external and common carotid arteries were occluded with atraumatic vascular clamps. Arteriotomy was made in the distal common carotid arteries and extended with Pacheco scissors onto the internal carotid. Arteriotomy was continued pass the area of visible disease. The appropriately sized argyle shunt was then passed into the internal carotid artery. Proximally the argyle shunt was passed into the common carotid artery and held in place with a magui tourniquet. Flow was then restored through the shunt and into the distal internal carotid. Endarterectomy was then performed using a freer elevator. Distally the plaque tapered off nicely as well as proximally. The endarterectomy plane was then cleared of all loose debris and fragments of media. The arteriotomy was then closed using a patch of bovine pericardium. It was sewn into place using two running 6-0 Prolene sutures. After completion of the patch angioplasty, the shunt was removed and the internal external and common carotid arteries were reoccluded with atraumatic vascular clamps. The endarterectomy plane was flushed with heparinized saline and the final few stitches were placed in the patch angioplasty. We then restored flow, 1st from the common to the external carotid artery and then finally to the internal carotid artery. Patch angioplasty was hemostatic. After achieving hemostasis in the wound the wound was closed in layers with 2-0 Vicryl to re-approximate the sternocleidomastoid muscle, 3-0 Vicryl for the platysma and subcuticular 4-0 Monocryl for the skin. Dermabond was applied and the patient was awakened and taken to the ICU in stable condition. There were no gross neurological deficits on awakening.Complications: none apparentEstimated blood loss: 100 mLSpecimens: Right internal carotid plaque to pathologyDrains: noneSpecific postop instructions:- Q2H neurovascular checks- SBP goal <140Alexis LOU HadleyGY-4, Vascular Surgery ssociated attestation - Ron Hoover MD - 03/24/2024 7:31 AM CDT I was scrubbed in and directly supervised and/or performed all critical portions of the procedure.Ron Hoover MD, RPVI, FSVSVascular Surgery [id number] Surgical operation [id number], Shariq1.2.840.718247.1.13.104.2.7. 2.834716QzifbBvoxqzTF5209-12-69Y74 :31:27[facility] Surgical operation noteTXT1.2.840.774392.1.13.104.2.7 .2.472299|[id number] for patient ukdk57500-2UclbZNTSQPORYRQUcyqcvxc d C-CDA narrative textSUR-VASCULAR SURGERYSUR-VASCULAR SURGERY[address] PzvvZwjycpeytUzdwyhlgwUOKX39317493 96RSLDKPELUKHEBMMAYUJEVN4570-31-64 T07:31:271.2.840.889828.1.72.3.15| 1.2.840.346931.1.13.104.2.7.2.7278 [id number] CAROLYN-VASCULAR SURGERY [place] 2024-03-22 08:19:00 4488-88-17O62:19:00 BRIEF OPERATIVE NOTEDate of Surgery:03/22/2024Surgeons and Role:* Ron Hoover MD - Primary* Ed Hadley MD - Resident - AssistingPre-Op Diagnosis:Carotid stenosis, bilateral [I65.23]Post-Op Diagnosis Codes:* Carotid stenosis, bilateral [I65.23]Procedures:Procedure(s) (LRB):CAROTID ENDARTERECTOMY (Right)CPT:UTMBCODINGHE,Any Complications Encounters:noneEstimated Blood Loss:100ccSpecimens Removed:* No specimens in log *Implant Name Type Inv. Item Serial No. Tongue And Quarter Stitcher Lot No. LRB No. Used ActionPATCH XENOSUR 0.8X8CM TAPR 0.5 #E0.8P8 - S0000 Tissue, Biological PATCH XENOSUR 0.8X8CM TAPR 0.5 #E0.8P8 0000 [facility] VASCULAR [id number] Right 1 ImplantedPatient's Condition:stableFindings:ICA stenosisAny other important information:- SBP goal <140Please see dictated operative report for additional detail. ssociated attestation - Ron Hoover MD - 03/24/2024 7:31 AM CDT I was scrubbed in and directly supervised and/or performed all critical portions of the procedure.Ron Hoover MD, RPVI, FSVSVascular Surgery [id number] [id number], Shariq1.2.840.479673.1.13.104.2.7. 2.707019HlvhoXecazrSI7540-68-10W29 :31:10Progress noteTXT1.2.840.015203.1.13.104.2.7 .2.664521|[id number] for patient vpzo12658-9QuegFGXCCQTPLKTZqrdqusj d C-CDA narrative textUT[address]TXTX[address] 81JOYMBFNYXQNJOIUQJZCZLA9242-31-80 T07:31:101.2.840.869427.1.72.3.15| 1.2.840.988054.1.13.104.2.7.2.7278 79_[id number] [place] 2024-03-19 10:30:00 1828-22-95N95:30:00 Images from the original note were not included.Venipuncture collection performed by clean technique on the left anticubitus. Total of 1 attempts were made. Slight pressure and a bandage/dressing were applied to the site(s). The patient experienced no complications. The following specimens were processed according to instructions and sent to [facility] laboratories per lab order on 03/19/2024 :Patient armbanded and specimen sent to Rickey VELÁSQUEZ.LT BLUESSTREDLAV 1PPTDK GREEN (LiHep)DK GREEN (SodH)GRAYDK BLUE (K2)DK BLUE (S)ACDBlood CultureNIPT/NTD 53382-2Aoeus KqfdNC2191-75-51E04:49:11Nurse NoteTXT1.2.840.360177.1.13.104.2.7 .2.802350|[id number] for patient lzkn72040-1Mmozi NoteLNNARRATIVEFormatted C-CDA narrative textUT[address] StreetTXTX[address] 64OJGJHCAYBQPCOGVWLGWTAU1592-02-75 T10:49:111.2.840.781802.1.72.3.15| 1.2.840.521252.1.13.104.2.7.2.7278 79_[id number] [place] 2024-03-17 16:02:18 8359-44-76J83:02:18 [facility] scanned in folder and placed in provider basket for review. 42403-0Uxvvjcmdl encounter CvmyIW5339-38-13S27:03:28Telephone encounter NoteTXT1.2.840.460192.1.13.104.2.7 .2.221673|[id number] for patient lfga91422-5JryoFMVYYCNSPMQQldkkgxm d C-CDA narrative [id number] D Bo[address] StreetTXTX[address] 49FYAPCRWBAPYYSHXGKQWZYZ5318-32-62 T16:03:281.2.840.813086.1.72.3.15| 1.2.840.002867.1.13.104.2.7.2.7278 79_[id number] [facility]At[facility] 2024-03-14 11:49:56 1364-12-42G87:49:56 Rollator order sent to [facility] via mAPPn. 98838-2Awixndjyb encounter BmooWE3115-70-80K60:50:27Telephone encounter NoteTXT1.2.840.027957.1.13.104.2.7 .2.483153|[id number] for patient njhc09677-1OlroZBEKKIPPJPIMtuihind d C-CDA narrative pooo150556046Dtiyx Garcia V, RN[address]TXTX[address] 37JKAWLCYMXNDUQDHEZVGOXG0930-69-89 T11:50:271.2.840.568312.1.72.3.15| 1.2.840.487398.1.13.104.2.7.2.7278 79_[id number] Malinda Ramos RN [place] 2024-03-11 14:59:20 8839-06-57X96:59:20 Images from the original note were not included.POC discussed with pt, ER precautions discussed. Pt verbalized understanding and agrees w/POC.Pat Chaidez FNP MIDLEVEL PROVIDER Signed 2:38 PMI would continue to hold the LosartanIf the BP starts to go up to 140/90Then start back at Losartan 12.5 mg (half the tablet) 79248-0Gorcwyrmo encounter FqzjAJ9641-10-73Z71:01:36Telephone encounter NoteTXT1.2.840.353551.1.13.104.2.7 .2.949474|[id number] for patient novm53112-8MfwkWEIWOAENTXKQvexjwiu d C-CDA narrative agen375124617Dgbsi José Ramos RN[address]vdGalvestonGalvestonTXTX[address] 94ERTXPIQCYSQFVXHISAROCI0811-50-74 T15:01:361.2.840.646929.1.72.3.15| 1.2.840.448338.1.13.104.2.7.2.7278 79_[id number] Malinda Ramos RN [place] 2024-03-11 14:38:58 1401-78-70Y38:38:58 I would continue to hold the LosartanIf the BP starts to go up to 140/90Then start back at Losartan 12.5 mg (half the tablet) 81737-9Flwmlbfaw encounter HqruOA7839-52-55C14:39:31Telephone encounter NoteTXT1.2.840.234727.1.13.104.2.7 .2.521204|[id number] for patient daib24565-1ZdwmJMKULVGWTKKDaqoegic d C-CDA narrative text[address]TXTX[address] 88XPPZXPVQXXVTSAEKDPNWBR1170-80-33 T14:39:311.2.840.742762.1.72.3.15| 1.2.840.270575.1.13.104.2.7.2.7278 79_[id number] [place] 2024-03-11 14:12:39 0599-72-28C37:12:39 Pt states HH nurse saw him today and informed him he would need to call our office due to self discontinuation of Losartan. Pt reports was taking Losartan in the AM and Metoprolol () in the PM. Pt states on the and his BP readings were 98/59 and 94/56 @ 1700. Pt reports last 4 days has not taken Losartan in the AM, BP - 130/69, 112/66 and 133/76 (last 3 evenings). 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 Reports is scheduled for vascular surgery on the with . Pt would like to know if he should continue to hold medication. Pt also inquiring of status of Rollator. Rx re-printed to send via mAPPn. Message forwarded to ROBYN Esparza. 09991-0Sjwovtywk encounter TqawDI1977-60-44U75:36:36Telephone encounter NoteTXT1.2.840.970183.1.13.104.2.7 .2.623768|[id number] for patient leja17760-8KgmeLKWVVTIXCSGGjrzsuoc d C-CDA narrative textUT[address]TXTX[address] 48LXLLEMKHPTVGKJRKFKJQSF9488-38-76 T14:36:361.2.840.719222.1.72.3.15| 1.2.840.468356.1.13.104.2.7.2.7278 79_[id number] [place] 2024-03-11 13:08:47 0629-73-37W63:08:47 Copied from [facility] #[id number]. Topic: Clinical - Medical Advice>> March 11, 2024 1:05 PM Patient Cnc Mechanic wrote:Pt calls and states that his BP is continuously low. Pt stopped taking losartan [address] Fink put pt on metoprolol and made him stop taking carvedilol. He states that it is starting to get a little better. He is requesting to speak with clinical staff in regards to his blood pressure readings. Please advise. 79013-8Shtqypqfd encounter MfqbEE0928-65-13I85:08:53Telephone encounter NoteTXT1.2.840.876972.1.13.104.2.7 .2.671143|[id number] for patient fuoe69920-6XesjITPEVEPEYGBFqccoqbh d C-CDA narrative xgjz02387064BgqmhpnJanie Nielson[address] WohwGnsocqhaoIotbzeqhiANJZ02743221 95CKSQUYXKNAPQFTIRQJLZFO5459-57-66 T13:08:531.2.840.291356.1.72.3.15| 1.2.840.131498.1.13.104.2.7.2.7278 79_[id number] Janie Hardwick [place] 2024-03-10 15:00:00 2714-22-74O98:00:00Addended by: RON HOOVER MD on: 03/17/2024 04:12 PMModules accepted: Orders 81336-7Rpvwzdhz RfnzhdguGS8702-58-92Q04:12:18Adden dum DocumentTXT1.2.840.733678.1.13.104 .2.7.2.896924|[id number] e for patient fhef61558-7ZqwyRSCDJTHAGHWLodnghcm d C-CDA narrative text[address]TXTX[address] 02PQXOTMFRSLAWTTJJRBIPQN7878-75-27 T16:12:181.2.840.883202.1.72.3.15| 1.2.840.595306.1.13.104.2.7.2.7278 79_[id number] [place] 2024-03-03 01:59:06 0394-47-31Y80:59:06 Pt dc'd home with personal walker. Pt v/u to keep follow up appointments that he already has scheduled and to return to ED for worsening symptoms. 15495-0Ejwzgajut department XjbbWC6381-78-95U74:59:42[facility] NoteTXT1.2.840.088332.1.13.104.2.7 .2.748151|[id number] for patient lwis93339-1SrqqPJQPJFJEXMMYlkmaoow d C-CDA narrative mmxp752453524WddxgsLynda KIM[address]TXTX[address] 30UARRYAOMETANVOGLNZOWGP1946-99-54 T01:59:421.2.840.340977.1.72.3.15| 1.2.840.189831.1.13.104.2.7.2.7278 79_[id number] Quiana Carranza RN [place] 2024-03-02 23:43:23 6177-39-39D88:43:23 Pt stated he had a fall last Thursday and woke up 30 min later on the floor. Pt had full workup at [facility].Pt stated tonight he "just felt like I wasn't going to wake up in the morning so I decided to come get checked out."Pt obtained a ride from a friend in the evangelical he lives at and asked me if we could keep him until 8am so he could walk across the street to his cardiology appointment at 9am. 62247-9Dmgbvmngt department IupiDB7038-21-01B98:30:09[facility] department NoteTXT1.2.840.760167.1.13.104.2.7 .2.414954|[id number] for patient ctpf20782-6YrdfEFENCXNEJOIGkdnawrt d C-CDA narrative textUT79 [address] StreetCczvDcjstsuxkDlwlfteqxVJAB34932158 48TINPGKIYCJZKUTHJBUJZNZ9732-13-19 T00:30:091.2.840.660008.1.72.3.15| 1.2.840.571383.1.13.104.2.7.2.7278 79_[id number] [place] 2024-03-02 23:16:00 7730-43-30E65:16:00 Pt arrives ambulatory with walker to ED reporting that he has a "dizzy headache." He states that he just was told last week that his carotids are 80% blocked, a pt of Dr Hoover. He says he believes that this may be the reason for the dizziness, but his sugar was 53 @ 2130. He says he ate some mashed potatoes and it started going up but slowly. BG 123 in triage. 54673-0Lynmwuicx department Triage raigNH4493-64-14W66:21:38[facility] department Triage noteTXT1.2.840.843672.1.13.104.2.7 .2.048845|[id number] for patient wzle71107-1Ihhsyoyqy department NoteLNNARRATIVEFormatted C-CDA narrative opnm924438551Dohvty L Aaron PAYNE[address]veston[place]onTXTX[address] 13KXLSPENPTDISOPNJSCCKZO3024-40-90 T23:21:381.2.840.933897.1.72.3.15| 1.2.840.713221.1.13.104.2.7.2.7278 79_[id number] Marianela Asha Walker RN [place] 2024-03-02 16:21:06 4390-06-32J37:21:06 Forms placed in nurse folder, has appt tomorrow. 03/03/2024. 18357-7Sjiagmtej encounter JtlzNY1673-01-21H17:26:41Telephone encounter NoteTXT1.2.840.767475.1.13.104.2.7 .2.763057|8420221440HOLbotuxfed for patient aots57897-4LyonZWQYSCFJSCUJqsctkpu d C-CDA narrative jnby982578020LwjpeJULIO Torres[address]TXTX[address] 41JLPVIGIWVJSLJCWJBJXNCI2466-16-09 T16:26:411.2.840.862959.1.72.3.15| 1.2.840.090073.1.13.104.2.7.2.7278 79_[id number] Malinda Ramos RN [place] 2024-03-02 14:04:26 3346-20-28C13:04:26 Please make sure patient brings imaging studies with him to appointment (CT results on disc please, not just report) 30899-7Gczhlzoqe encounter QeczSR7213-53-92J44:04:58Telephone encounter NoteTXT1.2.840.848896.1.13.104.2.7 .2.027082|[id number] for patient nnzf18835-0ZordGDWGUSBXBSALujqydrs d C-CDA narrative textSUR-VASCULAR SURGERY STAFFSUR-VASCULAR SURGERY [address]TXTX[address] 57LFCVENTTJXIMRGBZYWOBMF1888-75-64 T14:04:581.2.840.066608.1.72.3.15| 1.2.840.477298.1.13.104.2.7.2.7278 79_[id number] CAROLYN-VASCULAR SURGERY [facility] 2024-03-02 13:53:08 7895-82-88T70:53:08 Images from the original note were not included.Transition of Care forms received placed in Nurse fax folder. 07923-6Rwxfhktnm encounter EiqeHQ0640-24-91H84:55:16Telephone encounter NoteTXT1.2.840.919760.1.13.104.2.7 .2.293639|8041104832BSOkdcrimgd for patient jawb07895-0OgjuBPQVUAXZMPHDybkkezw d C-CDA narrative ktbo15698829Lshr [address]onGalvestonTXTX[address] 02MAMDNJBXHKOGBZSCWVCGVH1706-57-21 T13:55:161.2.840.889410.1.72.3.15| 1.2.840.288460.1.13.104.2.7.2.7278 79_[id number] Cynthia Walker [place] 2024-03-02 11:16:48 2021-06-07G84:16:48 SAWYER Tam reports and disc received by patient and placed in the providers folder at [facility] location.Reports scanned to Enik[employer] for upload. 47508-1Uieohztim encounter SgjbKW6486-27-28N27:17:44Telephone encounter NoteTXT1.2.840.013428.1.13.104.2.7 .2.932954|7666757004WVWiqnngzze for patient pylu89769-9ChllMJGPOBWIHDGArgpyppd d C-CDA narrative nmek976854368Jdhegs L [address] VycuXshectiyvPmkmdwscwTOZQ80429494 54FNPRURSNWLZARBZWKKHQRK1570-83-79 T11:17:441.2.840.121217.1.72.3.15| 1.2.840.439768.1.13.104.2.7.2.7278 79_[id number] Ana Maria L [facility] 2024-02-29 13:16:02 9661-54-73U57:16:02 Patient scheduled for next available 03/10/24 and message routed to Dr Hoover for notification.Spoke with patient and notified next available 03/10/24. Patient encouraged to let attending know that he is scheduled for next available 03/10/[address] Hoover. Patient verbalized understanding. 71846-8Ycsfhmdjb encounter XsroHW3450-17-46N06:19:28Telephone encounter NoteTXT1.2.840.267337.1.13.104.2.7 .2.707815|[id number] for patient fvxn59202-8TljdFWQWZOSDSTJYwzmkzjx d C-CDA narrative ctoo049239259Pxgkec A Hall [address] KnmiNvjghoagcAvytkatfnRTUW43647272 17QNFNFSZNKQVUGDGSRPSDUK6226-07-83 T13:19:281.2.840.632279.1.72.3.15| 1.2.840.710923.1.13.104.2.7.2.7278 79_[id number] Maureen Mazariegos RN [place] 2024-02-29 13:01:37 8821-91-35A35:01:37 Maximus Sheehan is a 68 year old malePt [facility] and falling on Fridaystates they are doing testing and his carotid arteries are 80% blocked and he needs surgery ASAPStates he would like to notify/speak with Dr Hooevr to see if he can get him scheduled for surgery asapStates he is being discharged in the next couple of hoursPlease -[phone] (home) 47563-0Hpshwkqaf encounter YitzZJ7099-16-66Y58:02:49Telephone encounter NoteTXT1.2.840.000005.1.13.104.2.7 .2.606354|0596221343XVPzccbnyar for patient gksb26650-9LmkkHYETTMKICZKEoyqpgwv d C-CDA narrative potq640808086Drjuga N annika[address]vestonTXTX[address] 59KNMGDRLMXZOVSCRZXQBPAR9120-64-22 T13:02:491.2.840.519432.1.72.3.15| 1.2.840.085480.1.13.104.2.7.2.7278 79_[id number] Deja Morocho [place] 2024-02-22 13:00:00 6326-64-38U83:00:00 Images from the original note were not included.Venipuncture collection performed by clean technique on the right anticubitus. Total of 3 attempts were made. Slight pressure and a bandage/dressing were applied to the site(s). The patient experienced no complications. The following specimens were processed according to instructions and sent to [facility] laboratories per lab order on 02/22/2024:LT BLUESST 2REDLAV 1PPTDK GREEN (LiHep)DK GREEN (SodH)GRAYDK BLUE (K2)DK BLUE (S)ACDBlood CultureNIPT/NTD 34431-0Bqied RusiBZ5476-05-63I84:23:49Nurse NoteTXT1.2.840.558592.1.13.104.2.7 .2.299346|[id number] for patient bpla11260-4Lzsln NoteLNNARRATIVEFormatted C-CDA narrative text[address]TXTX[address] 10UYYCDNTJQYLZXZLRMQDBFV7625-80-38 T13:23:491.2.840.512446.1.72.3.15| 1.2.840.982402.1.13.104.2.7.2.7278 79_[id number] [place] 2024-02-10 15:14:11 3885-18-51J51:14:11 Forms received and placed in providers folder. 72055-4Zwduwfudm encounter DbodRZ3435-00-65L01:14:29Telephone encounter NoteTXT1.2.840.595015.1.13.104.2.7 .2.070421|[id number] for patient spus16373-4BipoBDRGCXBKVZRNqbvkbea d C-CDA narrative [id number] JULIO [address]ias[id number] 30THGUZYBIXFEUNFPLMCPHDX1759-51-28 T15:14:291.2.840.234230.1.72.3.15| 1.2.840.466126.1.13.104.2.7.2.7278 [id number] Malinda Ramos RN [place] 2024-02-10 08:57:17 6212-55-22B94:57:17 Images from the original note were not included.Placed in nurse folder. 98592-9Lzswhkltz encounter TwboCL8466-34-96L37:57:32Telephone encounter NoteTXT1.2.840.576190.1.13.104.2.7 .2.872702|[id number] for patient abba84723-2ShrfODOZSSXIUAPRcmuxxfa d C-CDA narrative [id number] D [id number] 03LNTPPLGVZDKJZQPLSMQIYV8650-01-24 T08:57:321.2.840.084038.1.72.3.15| 1.2.840.782262.1.13.104.2.7.2.7278 [id number] [facility] 08:50:30 2963-89-45V99:50:30 Will await forms for completion 31242-8Tzoutezoh encounter LyqqHR8726-22-85G96:50:43Telephone encounter NoteTXT1.2.840.526512.1.13.104.2.7 .2.931765|[id number] for patient gxlt88627-8QpahXAVPXNMOJTLEwatxbth d C-CDA narrative [id number] Garcia V, RNUT[id number] 98UEDQBGYOEOGWTTJDLYOBLJ5785-51-53 T08:50:431.2.840.404709.1.72.3.15| 1.2.840.248293.1.13.104.2.7.2.7278 [id number] Malinda Ramos RN [place] 2024-02-10 08:21:11 9922-85-90Z16:21:11 Maximus Sheehan is a 68 year old maleApril w [facility] called stating they will be faxing over "Sarah 2 sensors forms" for pcp to be filled out.[facility] advis[facility] MED[facility] INFOPh # [phone] # [phone] signed by Anatoly Spencer at 02/10/2024 8:23 AM NOA07584-2Ckilihjxp encounter ZawvSL0304-85-87I41:23:35Telephone encounter NoteTXT1.2.840.413089.1.13.104.2.7 .2.002341|[id number] for patient iazn54287-6CrdrKNBQDHYVMKDDdklrryi d C-CDA narrative [id number] Clark75 [id number] 36DFTYFIWTJXXQXAEEAEMJRV6367-77-92 T08:23:351.2.840.454831.1.72.3.15| 1.2.840.934294.1.13.104.2.7.2.7278 [id number] Anatoly Clark [place] 2024-01-29 12:43:02 1027-26-18L81:43:02 Refill 95284-9Vbhkhumdp encounter XpomJZ3428-58-60B46:43:42Telephone encounter NoteTXT1.2.840.115627.1.13.104.2.7 .2.765830|[id number] for patient yjxm58111-4TibnARDKGMIWDUBUwrybuyl d C-CDA narrative text[id number] 00WTJCBACXUGXUHUKOWOYEOF8435-37-22 T12:43:421.2.840.032140.1.72.3.15| 1.2.840.761273.1.13.104.2.7.2.7278 [id number] [place] 2024-01-29 11:31:00 4389-21-63F35:31:00 Medication has not been filled by our office before. Message forwarded to provider for approval. 21385-1Kmbcyareo encounter QmolMD8111-61-23C11:32:32Telephone encounter NoteTXT1.2.840.270650.1.13.104.2.7 .2.469948|[id number] for patient mcfz41294-5RkwgDUHOHSQRIFJXowmtpgo d C-CDA narrative [id number] Torres[id number] 40PZWICXQUCVYEFLTVQWCPCA4288-17-52 T11:32:321.2.840.066847.1.72.3.15| 1.2.840.166555.1.13.104.2.7.2.7278 [id number] Malinda Ramos RN [place] 2024-01-06 09:06:45 6446-34-86Z92:06:45 Images from the original note were not included.Notification received [facility], placed in provider folder for review. 63368-5Ygourrufq encounter AzydHR8915-43-37L21:08:16Telephone encounter NoteTXT1.2.840.588033.1.13.104.2.7 .2.295232|[id number] for patient udca67686-4OfblAWDMQBNVPHGHichpdmk d C-CDA narrative [id number] [id number] 54PLJAYBCJRDUOWXPTTYIHTB2302-28-99 T09:08:161.2.840.913614.1.72.3.15| 1.2.840.671866.1.13.104.2.7.2.7278 [id number] Cynthia Walker [place] 2024-01-04 16:53:53 1111-30-57S06:53:53 Received medical records from [facility] scanned and placed in box. 72475-4Gufmqxuwr encounter XvduNK6978-75-63J76:55:08Telephone encounter NoteTXT1.2.840.783382.1.13.104.2.7 .2.533873|[id number] for patient urav86390-6RlbuBWHQHDHNWQBAlrnuxbx d C-CDA narrative [id number] J [id number] 17GKESKHXCFHAYFVLXMJVCSO7271-49-92 T16:55:081.2.840.678429.1.72.3.15| 1.2.840.067525.1.13.104.2.7.2.7278 [id number] Yancy Thurston [place] 2024-01-04 15:13:09 4414-63-82G03:13:09 Sensor has been sent to a DME company ([employer]) through [employer].Patient rollator is waiting for provider signature. Resent to provider to sign orders through [employer]. 80885-9Yyrtygdtn encounter TijbZH6762-44-66J70:16:20Telephone encounter NoteTXT1.2.840.027645.1.13.104.2.7 .2.369074|[id number] for patient bjkq11803-6ErbzMPHOWILVMYPUdrmgeup d C-CDA narrative [id number] M Serrano MA[id number] 94QXQZXHPCTQIQPGIUBJMHMJ3881-30-46 T15:16:201.2.840.927961.1.72.3.15| 1.2.840.375995.1.13.104.2.7.2.7278 [id number] Marianela Calderon MA [place] 2024-01-04 13:51:14 8910-32-23K61:51:14 Per patient, he is using the [employer]meyle Sarah 2 sensor and it must be sent to [employer], it cannot be sent to the pharmacy. Order updated. Will routed to [facility] for DME order to [facility]. 82699-4Funaqkyet encounter HbgtFG7472-40-10X63:03:28Telephone encounter NoteTXT1.2.840.387418.1.13.104.2.7 .2.012557|[id number] for patient opyz80489-2UnqmZKGPMWJVOBRUtuconjm d C-CDA narrative textUT[id number] 33TFATGOTNQADBFSPPTPUXUA4464-15-57 T14:03:281.2.840.659300.1.72.3.15| 1.2.840.802911.1.13.104.2.7.2.7278 [id number] [place] 2023-12-29 13:59:51 0777-87-03E33:59:51 Pt has signed medical release and has been faxed to designated location for request of medical records.Confirmation received.Scanned and uploaded to patients chart. 72834-3Ahlgagiry encounter PlrmSH2955-52-67K39:00:29Telephone encounter NoteTXT1.2.840.391467.1.13.104.2.7 .2.553642|[id number] for patient hkbm93713-1PpunZFQZCMSPISFZmamwlgd d C-CDA narrative [id number] M [id number] 00CEGPUMNIGENRUFKHMPGQYH9232-40-24 T14:00:291.2.840.334428.1.72.3.15| 1.2.840.090798.1.13.104.2.7.2.7278 [id number] Lucia Sandoval [place] 2023-12-08 10:49:19 1866-52-00G63:49:19 Maximus Sheehan 057795Z09/13/24Incoming call from patient who is trying to contact his PCP, Pat Chaidez -ROBYN regarding his medication.Current overdue topics are as followsHealth Maintenance DueTopic Date DueMedicare Wellness Visit Never cjrdCEFE-AvY-0 (COVID-19) Vaccine (1) Never doneEYE EXAM Never [...] stated "I need to contact my PCP, Pat Chaidez regarding my medication and some questions I have. I was trying to contact the clinic but some how my phone call got routed to you. Can you transfer me or give me the phone number. Attempted to transfer but unable to transfer to this clinic in [place], [place]. Patient was given the clinic phone number [phone] to speak with staff at the [facility].Deandra Medina RN 12/08/2023 10:49 AM 00647-7Izskyuumj encounter KiplRP4485-22-33N64:54:48Telephone encounter NoteTXT1.2.840.315698.1.13.104.2.7 .2.582743|[id number] for patient bvle32985-7BpbuZCIERUMUPXHIsuvqwqe d C-CDA narrative [id number] Medina RNUT[address] NcfhKpwmzoowwWopyjfenjGMOY29749562 62MJQWOFHJBTPNZOJGOOLTTI3067-74-20 T10:54:481.2.840.056039.1.72.3.15| 1.2.840.998627.1.13.104.2.7.2.7278 [id number] Deandra Medina RN [place] 2023-12-02 11:45:00 4683-57-18U38:45:00 Images from the original note were not included.Venipuncture collection performed by clean technique on the right anticubitus. Total of 1 attempts were made. Slight pressure and a bandage/dressing were applied to the site(s). The patient experienced no complications. The following specimens were processed according to instructions and sent to [facility] laboratories per lab order on 12/02/2023:LT BLUESST 1REDLAV 2PPTDK GREEN (LiHep)DK GREEN (SodH)GRAYDK BLUE (K2)DK BLUE (S)ACDBlood CultureNIPT/NTDPatient has been identified by and name and was provided with cup, antiseptic towelette, and clean catch instructions. 2 urine specimen(s) sent.Unpreserved 2Urine CultureAptima tubeOther urine 70173-8Unyvx XfsvZC9626-98-23I32:50:39Nurse NoteTXT1.2.840.674441.1.13.104.2.7 .2.327288|[id number] for patient rpgy05876-8Tilfz NoteLNNARRATIVEFormatted C-CDA narrative textUT[address] Si[id number] 70MOJMWIBNYKPJOSLZYJFSOX3460-08-42 T11:50:391.2.840.133427.1.72.3.15| 1.2.840.492918.1.13.104.2.7.2.7278 [id number] [place] 2023-12-02 10:32:53 1250-47-84A10:32:53 DME order for Rollator was sent through [employer]. Sent to [facility] [place] Patient. 58431-7Mftwbrwle encounter FjghIR6656-76-16Y92:33:43Telephone encounter NoteTXT1.2.840.990728.1.13.104.2.7 .2.381477|[id number] for patient xzwo09597-8GgywGVFYDIPQHCIZgkaugqy d C-CDA narrative [id number] M Serrano [address] KebyAtxxatjdrVnrtapvqyXPTZ51690263 96RETSCZMZMTPRICQKJZGYIG6913-71-62 T10:33:431.2.840.564629.1.72.3.15| 1.2.840.239367.1.13.104.2.7.2.7278 [id number] Marianela Calderon [facility]
[2024-05-04] MEDS ORDERED: NA CHLORIDE 0.9% 1,000 ML ONE (12:26)
[2024-05-04 12:42] LABS: Absolute Basophils 0.1 K/uL (0-0.5); Absolute Eosinophils 0.1 K/uL (0-0.5); Absolute Lymphocytes (CBC) 2.5 K/uL (0.7-4.9); Absolute Monocytes 0.5 K/uL (0.1-1.3); Absolute Neutrophil 2.7 K/uL (1.8-8.0); Eosinophils % 1.1 % (0-4.4); Hematocrit 44.9 % (39.6-49.0); Lymphocytes % 42.9 % (15.3-44.8); MCH 30.1 pg (27.0-35.0); MCHC 33.4 g/dL (32.0-36.0); MCV 90.2 fL (80-100); MPV 8.3 fL (7.6-11.3); Platelets 273 thou/uL (152-406); RBC Red Blood Cell Count 4.98 M/uL (4.33-5.43)
[2024-05-04 12:59] LABS: Anion Gap 7.8 mEq/L (5.0-15.0); Potassium 3.8 mEq/L (3.5-5.1)
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
--- NOTE | 2024-05-04 16:34 | ER ---
Nurse's Notes [facility] Name: Amando Sheehan Age: 68 yrs Sex: Male : 1955 Arrival Date: 05/04/2024 Time: 11:18 Bed DX3 Private MD: Diagnosis: Weakness;Heat exhaustion, unspecified Presentation: 05/04 12:07 Chief complaint: EMS states: Toned out for dizziness and lightheaded, VS: BP 135/79, jl7 98.7 temp, bgl 156. Coronavirus screen: At this time, the client does not indicate any symptoms associated with coronavirus-19. Ebola Screen: No symptoms or risks identified at this time. 12:07 Method Of Arrival: EMS: [facility] 7 12:08 Initial Sepsis Screen: Does the patient meet any 2 criteria? No. Patient's initial jl7 sepsis screen is negative. Does the patient have a suspected source of infection? No. Patient's initial sepsis screen is negative. Risk Assessment: Do you want to hurt yourself or someone else? Patient reports no desire to harm self or others. Onset of symptoms was May 04, 2024. Care prior to arrival: None. 12:08 Acuity: SILVIA 3 jl7 Triage Assessment: 12:09 General: Appears in no apparent distress. uncomfortable, Behavior is calm, cooperative, jl7 appropriate for age. Pain: Complains of pain in right arm, left arm, right leg and left leg Pain currently is 5 out of 10 on a pain scale. Neuro: No deficits noted. Cardiovascular: No deficits noted. Respiratory: No deficits noted. Derm: Skin is pink, warm \T\ dry. Historical: - Allergies: 12:09 Morphine; jl7 - PMHx: 12:09 Brain bleed; Cerebrovascular accident; Myocardial infarction; Transient cerebral jl7 ischemia; traumatic brain injury; - Immunization history:: Adult Immunizations unknown. - Infectious Disease History:: Denies. - Social history:: Smoking status: Patient denies any tobacco usage or history of. - Family history:: not pertinent. - Hospitalizations: : No recent hospitalization is reported. Screenin:39 [facility] ED Fall Risk Assessment (Adult) History of falling in the last 3 months, mb9 including since admission No falls in past 3 months (0 pts) Confusion or Disorientation No (0 pts) Intoxicated or Sedated No (0 pts) Impaired Gait No (0 pts) Mobility Assist Device Used No (0 pt) Altered Elimination No (0 pt) Score/Fall Risk Level 0 - 2 = Low Risk Oriented to surroundings, Maintained a safe environment, Educated pt \T\ family on fall prevention, incl call for assistance when getting out of bed. Abuse screen: Denies threats or abuse. Nutritional screening: No deficits noted. Tuberculosis screening: No symptoms or risk factors identified. Assessment: 12:39 General: Appears in no apparent distress. Pain: Denies pain. Neuro: Kennedy mb9 Agitation-Sedation Scale (RASS): 0 - Alert and Calm Level of Consciousness is awake, alert, obeys commands, Oriented to person, place, time, situation, Appropriate for age Reports dizziness. Cardiovascular: Patient's skin is warm and dry. Respiratory: Airway is patent Respiratory effort is even, unlabored, Respiratory pattern is regular, symmetrical. GI: No signs and/or symptoms were reported involving the gastrointestinal system. : No signs and/or symptoms were reported regarding the genitourinary system. EENT: No signs and/or symptoms were reported regarding the EENT system. Derm: Skin is pink, warm \T\ dry. Musculoskeletal: Range of motion: intact in all extremities. 13:51 Reassessment: Patient and/or family updated on plan of care and expected duration. Pain mb9 level reassessed. Patient is alert, oriented x 3, equal unlabored respirations, skin warm/dry/pink. Patient states feeling better. Patient states symptoms have improved. Vital Signs: 12:07 BP 148 / 78; Pulse 85; Resp 15; Temp 98.1; mb9 12:09 Weight 72.57 kg; jl7 14:54 BP 156 / 76; Pulse 67; Resp 18; Pulse Ox 100% on R/A; mb9 ED Course: 11:29 Patient arrived in ED. mg5 12:04 Dillon Sheppard MD is Attending Physician. rn 12:09 Triage completed. jl7 12:09 Arm band placed on right wrist. Patient placed in waiting room, Patient notified of jl7 wait time. 12:17 Yulissa Cole, KERRY is Primary Nurse. mb9 12:38 Initial lab(s) drawn, by me, sent to lab. EKG done, by ED staff, reviewed by Dillon Sheppard MD. Inserted saline lock: 22 gauge in right forearm, using aseptic technique. Blood collected. 12:39 Placed in gown. Bed in low position. Call light in reach. Side rails up X 1. Provided nick Education on: press call light if needing anything. Client placed on continuous cardiac and pulse oximetry monitoring. NIBP monitoring applied. 12:39 No provider procedures requiring assistance completed. mb9 16:29 IV discontinued, intact, bleeding controlled, No redness/swelling at site. Pressure mb9 dressing applied. Administered Medications: 12:38 Drug: NS 0.9% IV 1000 ml IV at 1000 ml once Route: IV; Rate: 1000 ml; Site: right hand; mb9 14:18 Follow up: Response: No adverse reaction; IV Status: Completed infusion mb9 Medication: 12:39 VIS not applicable for this client. [email or web address] Outcome: 16:33 Discharge ordered by . rn 16:45 Discharged to home ambulatory, jojo9 16:45 Condition: stable 16:45 Discharge instructions given to patient, Instructed on discharge instructions, follow up and referral plans. Demonstrated understanding of instructions, follow-up care, 16:45 Patient left the ED. nick Signatures: Dillon Sheppard MD MD rn Leal, Jahala RN RN luis manuel7 Yulissa Cole RN RN jojo9 Leonor Mckee mg5 Corrections: (The following items were deleted from the chart) 14:54 12:07 BP 148 / ???; Pulse 85bpm; Resp 15bpm; Temp 98.1F; celestino romero
[2024-05-04 20:44] VITALS: BP 156/76; TEMP 98.1; O2SAT 100
--- NOTE | 2024-05-05 10:56 | EKG ---
Test Date: 2024-05-04 Test Time: 12:24:32 Figurine Maker: MB MEASUREMENT RESULTS: Intervals: Rate: 70 WI: 182 QRSD: 140 QT: 412 QTc: 444 [place]: P: 87 WI: 182 QRS: 64 T: 79 INTERPRETIVE STATEMENTS: Normal sinus rhythm Possible Left atrial enlargement Right bundle branch block Abnormal ECG Compared to ECG 02/26/2024 19:29:20 No significant changes Electronically Signed On 05-05-24 10:54:37 CDT by Pedro Pablo Verma
== END 2024-05-04 16:45 | disposition home or self-care (01) ==
LOC: ER 11:18
DX: R53.1 Weakness (principal); T67.5XXA Heat exhaustion, unspecified, initial encounter; Z87.820 Personal history of traumatic brain injury
CPT/HCPCS: 96361; 93005; 85025; 80048; 36415; 82550; 96360; 99284; J7030

== ENCOUNTER 2024-06-04 01:41 | Emergency (ER) | payer OTHER ==
--- OUTSIDE RECORDS SUMMARY | 2024-06-04 01:45 | XMS REPORT | Continuity of Care Document ---
Author Name Unknown Address [address] [facility] [address] [place] [id number] [facility] Address [address] [facility] [address] [place] [address] Care Team Providers Care Telephoner Name Role Phone Iris Toth MD Primary Care Physician + [phone] RON HOOVER Attending Clinician Unavailable ALLYSON FINK Attending Clinician Unavailable IRIS TOTH Attending Clinician Unavailab IRIS Grey Attending Clinician Unavailab Iris Grey MD Attending Clinician [phone] Krishan Macias MD Attending Clinician [phone] Gilberto Gasca MD Attending Clinician [phone], [facility] Attending Clinician Unavailable Allyson Fink MD Attending Clinician [phone] Pat Styles Attending Clinician [phone] Allyson Fink MD Attending Clinician [phone] Michelle Olmstead LCSW Attending Clinician [phone] PAT CHAIDEZ Attending Clinician Unavailable Pob, [facility] Main Attending Clinician Unavailabl e Doctor Unassigned, [place] Attending Clinician U Rosalva Felix Attending Clinician + [phone], [facility] Attending Clinician Unavailable Krishan Cowart MD Attending Clinician [phone] Lasha Aguilar MD Attending Clinician LASHA AGUILAR Attending Clinician Unavail able LASHA AGUILAR Attending Clinician Unavail able IDALIA HART Attending Clinician Unavailab Fenton RN, Deandra Barry Attending Clinician Miguel Angel Shah EXPLOSION WELDER, Debbie Cook Attending Clinician RON Hale Admitting Clinician Unavailable Payers Payer Name Policy Type Policy Number Effective Date Expirati on Date Source FRIEDA [facility]O [facility] [id number] 2023 00:00:00 [place] [id number] 2024 00:00:00 Problems Condition Name Condition Details Condition Category Status Onset Date Resolution Date Last Treatment Date Treating Clinician Comments Source Cerebrovas cular accident (CVA), unspecifie d mechanism Cerebrovas cular accident (CVA), unspecifie d mechanism Disease Active 8- 00:00: 00 [facility] Black-out (not amnesia) Black-out (not amnesia) Disease Active 8 00:00: 00 [facility] Stenosis of carotid artery, unspecifie d laterality Stenosis of carotid artery, unspecifie d laterality Disease Active 8 00:00: 00 [facility] Dependent on walker for ambulation Dependent on walker for ambulation Disease Active 8- 00:00: 00 [facility] Rash and nonspecifi c skin eruption Rash and nonspecifi c skin eruption Disease Active 8- 00:00: 00 [facility] Multiple falls Multiple falls Disease Active 8- 00:00: 00 [facility] Carotid stenosis, bilateral Carotid stenosis, bilateral Disease Active 5-16 00:00: 00 [facility] Syncope and collapse Syncope and collapse Disease Active 5-09 00:00: 00 [facility] Type 2 diabetes mellitus, with long-term current use of insulin Type 2 diabetes mellitus, with long-term current use of insulin Disease Active 3-11 00:00: 00 [facility] Bilateral carotid artery stenosis Bilateral carotid artery stenosis Disease Active 3 00:00: 00 [facility] Hyperlipid emia, unspecifie d hyperlipid emia type Hyperlipid emia, unspecifie d hyperlipid emia type Disease Active 3 00:00: 00 [facility] Essential hypertensi on Essential hypertensi on Disease Active 3 00:00: 00 [facility] HFrEF (heart failure with reduced ejection fraction) HFrEF (heart failure with reduced ejection fraction) Disease Active 12-27 00:00: 00 [facility] Coronary artery disease without angina pectoris, unspecifie d vessel or lesion type, unspecifie d whether [place] or transplant ed heart Coronary artery disease without angina pectoris, unspecifie d vessel or lesion type, unspecifie d whether [place] or transplant ed heart Disease Active 12-27 00:00: 00 [facility] At risk for falls At risk for falls Disease Active 11-27 00:00: 00 [facility] Unspecifie d abnormalit ies of gait and mobility Unspecifie d abnormalit ies of gait and mobility Disease Active 11-27 00:00: 00 [facility] Allergies, Adverse Reactions, Alerts Allergy Name Allergy Type Status Severity Reaction(s) Onset Date Inactive Date Treating Clinician Comments Source MORPHINE DRUG INGREDI Active Unknown-Cmnt 11-27 00:00: 00 [facility] EMPAGLIF LOZIN DRUG INGREDI Active Unknown-Cmnt 11-27 00:00: 00 [facility] Empaglif lozin Propensi ty to adverse reaction s Active Unknown - See comments 11-27 00:00: 00 [facility] Morphine Propensi ty to adverse reaction s Active Unknown - See comments 11-27 00:00: 00 [facility] NO KNOWN ALLERGIE S Drug Class Active [facility] Social History Social Habit Start Date Stop Date Quantity Comments Source History of tobacco use Cigarette Smoker [facility] Alcoholic beverage intake 2024-06-03 00:00:00 2024-06-03 00:00:00 Lifetime non-drinker (finding) [facility] History of Social function 2024-05-26 00:00:00 2024-05-26 00:00:00 [facility] Alcohol intake 2023-12-29 00:00:00 2023-12-29 00:00:00 Lifetime non-drinker (finding) [facility] Tobacco use and exposure 2023-11-27 00:00:00 2023-11-27 00:00:00 Smokeless tobacco non-user [facility] Sex assigned at 1955 00:00:00 1955 00:00:00 [facility] Smoking Status Start Date Stop Date Source Tobacco smoking consumption unknown [facility] Ex-smoker 2023-11-27 00:00:00 2023-11-27 00:00:00 [facility] Medications Ordered Medication Name Filled Medication Name Start Date Stop Date Current Medication? Ordering Clinician Indication Dosage Frequency Signature (SIG) Comments Components Source triamcinolo ne acetonide 0.1 % cream 06-02 00:00: 00 Yes [id number] Apply to area(s) 2 (two) times daily. [facility] metoprolol succinate XL 25 mg 24 hr tablet 05-30 00:00: 00 Yes [id number] 25mg Take 1 tablet by mouth in the morning. [facility] Insulin Glargine (LANTUS SOLOSTAR U-100 INSULIN) 100 unit/mL (3 mL) injection 05-26 00:00: 00 Yes [id number] Taking 28-30 U daily [facility] rosuvastati n (CRESTOR) 5 mg tablet 05-26 00:00: 00 Yes [id number] 5mg Take 1 tablet by mouth in the morning. [facility] METFORMIN 500 mg tablet 05-23 00:00: 00 Yes [id number] TAKE 1 TABLET BY MOUTH IN THE MORNING AND IN THE EVENING WITH MEALS [facility] dulaglutide (TRULICITY) 1.5 mg/0.5 mL PnIj 04-14 00:00: 00 Yes [id number] 1.5mg inject 1 Pen under the skin weekly. [facility] rosuvastati n (CRESTOR) 20 mg tablet 04-04 00:00: 00 05-26 00:00 :00 No [id number] 20mg Take 1 tablet by mouth in the morning. [facility] aspirin 81 mg chewable tablet 03-29 14:01: 42 Yes 81mg Take 1 tablet by mouth in the morning. [facility] ubidecareno ne (CO Q-10 ORAL) 03-24 12:31: 01 Yes Take by mouth. [facility] Magnesium Oxide 500 mg Cap 03-24 12:31: 01 Yes Take by mouth. [facility] aspirin 81 mg chewable tablet 03-24 12:31: 01 Yes 81mg Take 1 tablet by mouth in the morning. [facility] HYDROcodone -acetaminop hen 5-325 mg tablet 03-24 00:00: 00 04-01 04:59 :00 Yes [id number] 1{tbl} Take 1 tablet by mouth every 6 (six) hours as needed for Pain (scale 4-6) or Pain (scale 7-10) for up to 7 days. Indication s: acute pain [facility] Sliding Scale Insulin - Lispro (HumaLOG) 03-23 17:00: 00 Yes Subcutaneo us, TID MEALS+HS, First dose (after last modificati on) on Thu03/23/24 at 1200, Until Discontinu ed, Routine [facility] sennosides- docusate sodium (SENOKOT-S) 8.6-50 mg per tablet 1 tablet 03-23 14:00: 00 Yes 1{tbl} 1 tablet, Oral, DAILY, First dose on Thu03/23/24 at 0900, Until Discontinu ed, Routine [facility] pantoprazol e (PROTONIX) EC tablet 40 mg 03-23 14:00: 00 Yes 40mg 40 mg, Oral, DAILY, First dose on Thu03/23/24 at 0900, Until Discontinu ed, Routine, Indication for use: None of the above [facility] metoprolol succinate XL (TOPROL XL) tablet 25 mg 03-23 14:00: 00 Yes 25mg [facility] aspirin chewable tablet 81 mg 03-23 14:00: 00 Yes 81mg 81 mg, Oral, DAILY, First dose on Thu03/23/24 at 0900, Until Discontinu ed, Routine [facility] insulin glargine (LANTUS U-100) injection 30 Units 03-23 12:30: 00 Yes 30U 30 Units, Subcutaneo us, DAILY, First dose on Thu03/23/24 at 0730, Until Discontinu ed, Routine [facility] magnesium sulfate in water 2 gram/50 mL (4 %) infusion 2 g 03-23 10:45: 00 03-23 11:40 :00 No 2g 2 g, IV Piggyback, Administer over 60 Minutes, ONCE, 1 dose, On Thu03/23/24 at 0545, Routine [facility] NORepinephr ine (LEVOPHED) 4 mg/250 mL [...] intravenou s vasopresso r at a time. [facility] albumin (ALBUTEIN 5 %) 5 % injection 12.5 g 03-23 03:30: 00 03-23 03:43 :00 No 12.5g 12.5 g, IV Infusion, ONCE, 1 dose, On Thu03/22/24 at 2230, 250 mL, Indication : SHOCK/IMPE NDING SHOCK [facility] Sliding Scale Insulin - Lispro (HumaLOG) 03-23 03:15: 00 03-23 13:05 :34 No Subcutaneo us, TID MEALS+HS, First dose (after last modificati on) on Thu03/22/24 at 2215, Until Discontinu ed, Routine [facility] rosuvastati n (CRESTOR) tablet 10 mg 03-23 02:00: 00 Yes 10mg 10 mg, Oral, QHS, First dose on Thu03/22/24 at 2100, Until Discontinu ed, Routine [facility] heparin (porcine) injection 5,000 Units 03-22 19:00: 00 Yes 5000U 5,000 Units, Subcutaneo us, Q8H, First dose on Thu03/22/24 at 1400, Until Discontinu ed, Routine [facility] insulin glargine (LANTUS U-100) injection 30 Units 03-22 18:52: 00 03-22 20:49 :00 No 30U 30 Units, Subcutaneo us, ONCE, 1 dose, On Thu03/22/24 at 1400, Routine [facility] magnesium sulfate in water 2 gram/50 mL (4 %) infusion 2 g 03-22 18:45: 00 03-22 19:36 :00 No 2g 2 g, IV Piggyback, Administer over 60 Minutes, ONCE, 1 dose, On Thu03/22/24 at 1345, Routine [facility] Sliding Scale Insulin - Lispro (HumaLOG) 03-22 17:00: 00 03-23 02:43 :52 No Subcutaneo us, TID MEALS+HS, First dose on Thu03/22/24 at 1200, Until Discontinu ed, Routine [facility] acetaminoph en (TYLENOL) tablet 1,000 mg 03-22 16:49: 59 Yes 1000mg 1,000 mg, Oral, Q8HPRN, Starting on Thu03/22/24 at 1149, Until Discontinu ed, Routine, Pain (scale 1-3) [facility] HYDROcodone -acetaminop hen (NORCO) 10-325 mg tablet 1 tablet 03-22 16:49: 34 Yes 1{tbl} 1 tablet, Oral, Q6HPRN, Starting on Thu03/22/24 at 1149, Until Discontinu ed, Routine, Pain (scale 7-10) [facility] HYDROcodone -acetaminop hen (NORCO 5) 5-325 mg tablet 1 tablet 03-22 16:48: 44 Yes 1{tbl} 1 tablet, Oral, Q6HPRN, Starting on Thu03/22/24 at 1148, Until Discontinu ed, Routine, Pain (scale 4-6) [facility] glucagon (GLUCAGEN DIAGNOSTIC KIT) injection 1 mg 03-22 16:19: 35 Yes 1mg [facility] dextrose 50 % in water (D50W) injection 25 mL 03-22 16:19: 34 Yes 25mL [facility] ondansetron (ZOFRAN (PF)) injection 4 mg 03-22 16:18: 41 Yes 4mg [facility] bupivacaine (preserv free) (SENSORCAIN E MPF) 0.25 % (2.5 mg/mL) injection 03-22 15:41: 00 03-22 16:34 :55 No PRN, Starting on Thu03/22/24 at 1041, Until Thu03/22/24 at 1134, Routine, Intra-op [facility] heparin 1,000 unit/mL injection 03-22 13:50: 00 03-22 16:34 :55 No PRN, Starting on Thu03/22/24 at 0850, Until Thu03/22/24 at 1134, Routine, Intra-op [facility] metoprolol succinate XL 25 mg 24 hr tablet 03-03 00:00: 00 05-30 00:00 :00 No [id number] 25mg Take 1 tablet by mouth in the morning. [facility] carvediloL (COREG) 12.5 mg tablet 01-28 00:00: 00 03-03 00:00 :00 No [id number] 12.5mg Take 1 tablet by mouth in the morning and 1 tablet in the evening. Take with meals. [facility] flash glucose sensor (FREESTYLE SARAH 2 SENSOR) Kit 01-03 00:00: 00 Yes 1{kit} 1 Kit every 2 (two) weeks. [facility] flash glucose sensor (FREESTYLE SARAH 2 SENSOR) Kit 01-03 00:00: 00 Yes 1{kit} 1 Kit every 2 (two) weeks. [facility] dulaglutide (TRULICITY) 1.5 mg/0.5 mL PnIj 01-03 00:00: 00 04-14 00:00 :00 No [id number] 1.5mg inject 1 Pen under the skin weekly. [facility] ubidecareno ne (CO Q-10 ORAL) 15:03: 08 Yes Take by mouth. [facility] Magnesium Oxide 500 mg Cap 15:03: 08 Yes Take by mouth. [facility] aspirin 81 mg chewable tablet 15:01: 19 Yes 81mg Take 1 tablet by mouth in the morning. [facility] carvediloL (COREG) 12.5 mg tablet 15:01: 19 Yes 12.5mg Take 1 tablet by mouth in the morning and 1 tablet in the evening. Take with meals. [facility] losartan 25 mg tablet 12-11 12:23: 41 12-11 00:00 :00 No 25mg Take 1 tablet by mouth in the morning. [facility] aspirin 81 mg chewable tablet 12-11 12:23: 11 Yes 81mg Take 1 tablet by mouth in the morning. [facility] carvediloL (COREG) 12.5 mg tablet 12-11 12:23: 11 Yes 12.5mg Take 1 tablet by mouth in the morning and 1 tablet in the evening. Take with meals. [facility] BD ULTRAFINE III MINI PEN 31 gauge x 3/16" Ndle 12-11 00:00: 00 Yes USE DIRECTED 4 TIMES A DAY [facility] Blood-Gluco se Sensor (FREESTYLE SARAH 3 SENSOR) Nasreen 12-11 00:00: 00 Yes [id number] Use as directed [facility] losartan 25 mg tablet 12-11 00:00: 00 04-04 00:00 :00 No [id number] 25mg Take 1 tablet by mouth in the morning. [facility] rosuvastati n (CRESTOR) 10 mg tablet 12-11 00:00: 00 04-04 00:00 :00 No [id number] 10mg Take 1 tablet by mouth at bedtime. [facility] dulaglutide (TRULICITY) 1.5 mg/0.5 mL PnIj 12-11 00:00: 00 01-03 00:00 :00 No [id number] 1.5mg inject 1 Pen under the skin weekly for 90 days. [facility] metFORMIN 500 mg tablet 11-27 15:49: 42 11-27 00:00 :00 No 500mg Take 1 tablet by mouth in the morning and 1 tablet in the evening. Take with meals. [facility] Insulin Glargine (LANTUS SOLOSTAR U-100 INSULIN) 100 unit/mL (3 mL) injection 11-27 15:49: 42 11-27 00:00 :00 No 20U inject 20 Units under the skin in the morning. [facility] insulin aspart U-100 (NOVOLOG FLEXPEN U-100 INSULIN) 100 unit/mL (3 mL) injection 11-27 15:49: 42 11-27 00:00 :00 No 10U inject 10 Units under the skin in the morning and 10 Units at noon and 10 Units in the evening. inject before meals. Inject 5 to 10 units three times a day with meals [facility] aspirin 81 mg chewable tablet 11-27 15:47: 56 Yes 81mg Take 1 tablet by mouth in the morning. [facility] losartan 25 mg tablet 11-27 15:47: 56 Yes 25mg Take 1 tablet by mouth in the morning. [facility] carvediloL (COREG) 12.5 mg tablet 11-27 15:47: 56 Yes 12.5mg Take 1 tablet by mouth in the morning and 1 tablet in the evening. Take with meals. [facility] carvedilol 1.25 mg/mL oral suspension 11-27 15:45: 05 11-27 00:00 :00 No 12.5mg Take 10 mL by mouth in the morning and 10 mL in the evening. Take with meals. 1 tab by mouth twice a day [facility] insulin aspart U-100 (NOVOLOG FLEXPEN U-100 INSULIN) 100 unit/mL (3 mL) injection 11-27 00:00: 00 Yes [id number] 10U inject 10 Units under the skin in the morning and 10 Units at noon and 10 Units in the evening. inject before meals. Inject 5 to 10 units three times a day with meals [facility] Insulin Glargine (LANTUS SOLOSTAR U-100 INSULIN) 100 unit/mL (3 mL) injection 11-27 00:00: 00 Yes [id number] 20U inject 20 Units under the skin in the morning. [facility] metFORMIN 500 mg tablet 11-27 00:00: 00 Yes [id number] 500mg Take 1 tablet by mouth in the morning and 1 tablet in the evening. Take with meals. [facility] Insulin Glargine (LANTUS SOLOSTAR U-100 INSULIN) 100 unit/mL (3 mL) injection 11-27 00:00: 00 05-26 00:00 :00 No [id number] 20U inject 20 Units under the skin in the morning. [facility] Vital Signs Vital Name Observation Time Observation Value Comments S ource Body height 2024-06-02 19:31:00 182.9 cm [facility] Body weight 2024-06-02 19:31:00 72.122 kg [facility] BMI 2024-06-02 19:31:00 21.56 kg/m2 [facility] Systolic blood pressure 2024-05-26 18:08:00 124 mm[Hg] [facility] Diastolic blood pressure 2024-05-26 18:08:00 80 mm[Hg] [facility] Heart rate 2024-05-26 18:08:00 92 /min [facility] Body temperature 2024-05-26 18:08:00 36.78 Mera [facility] Respiratory rate 2024-05-26 18:08:00 18 /min [facility] Body height 2024-05-26 18:08:00 182.9 cm [facility] Body weight 2024-05-26 18:08:00 71.759 kg [facility] BMI 2024-05-26 18:08:00 21.46 kg/m2 [facility] Oxygen saturation in Arterial blood by Pulse oximetry 2024-05-26 18:08:00 96 /min [facility] Systolic blood pressure 2024-05-26 19:28:00 124 mm[Hg] [facility] Diastolic blood pressure 2024-05-26 19:28:00 80 mm[Hg] [facility] Heart rate 2024-05-26 19:28:00 92 /min [facility] Body temperature 2024-05-26 19:28:00 36.78 Mera [facility] Respiratory rate 2024-05-26 19:28:00 18 /min [facility] Body height 2024-05-26 19:28:00 182.9 cm [facility] Body weight 2024-05-26 19:28:00 71.804 kg [facility] BMI 2024-05-26 19:28:00 21.47 kg/m2 [facility] Oxygen saturation in Arterial blood by Pulse oximetry 2024-05-26 19:28:00 98 /min [facility] Systolic blood pressure 2024-04-14 20:11:00 139 mm[Hg] [facility] Diastolic blood pressure 2024-04-14 20:11:00 79 mm[Hg] [facility] Heart rate 2024-04-14 20:11:00 85 /min [facility] Body temperature 2024-04-14 20:11:00 36.78 Mera [facility] Respiratory rate 2024-04-14 20:11:00 20 /min [facility] Body height 2024-04-14 20:11:00 182.9 cm [facility] Body weight 2024-04-14 20:11:00 72.576 kg [facility] BMI 2024-04-14 20:11:00 21.70 kg/m2 [facility] Oxygen saturation in Arterial blood by Pulse oximetry 2024-04-14 20:11:00 97 /min [facility] Systolic blood pressure 2024-04-04 18:40:00 122 mm[Hg] his personal machine [facility] Diastolic blood pressure 2024-04-04 18:40:00 64 mm[Hg] his personal machine [facility] Heart rate 2024-04-04 18:40:00 87 /min [facility] Respiratory rate 2024-04-04 18:38:00 16 /min [facility] Body height 2024-04-04 18:38:00 182.9 cm [facility] Body weight 2024-04-04 18:38:00 70.081 kg [facility] BMI 2024-04-04 18:38:00 20.95 kg/m2 [facility] Oxygen saturation in Arterial blood by Pulse oximetry 2024-04-04 18:38:00 96 /min [facility] Systolic blood pressure 2024-03-29 18:53:00 121 mm[Hg] [facility] Diastolic blood pressure 2024-03-29 18:53:00 74 mm[Hg] [facility] Heart rate 2024-03-29 18:53:00 82 /min [facility] Body temperature 2024-03-29 18:53:00 36.72 Mera [facility] Respiratory rate 2024-03-29 18:53:00 15 /min [facility] Body weight 2024-03-29 18:53:00 72.349 kg [facility] BMI 2024-03-29 18:53:00 21.63 kg/m2 [facility] Oxygen saturation in Arterial blood by Pulse oximetry 2024-03-29 18:53:00 97 /min [facility] Systolic blood pressure 2024-03-24 16:12:00 125 mm[Hg] [facility] Diastolic blood pressure 2024-03-24 16:12:00 69 mm[Hg] [facility] Heart rate 2024-03-24 16:12:00 71 /min [facility] Body temperature 2024-03-24 16:12:00 36.28 Mera [facility] Respiratory rate 2024-03-24 16:12:00 18 /min [facility] Oxygen saturation in Arterial blood by Pulse oximetry 2024-03-24 16:12:00 96 /min [facility] Body weight 2024-03-24 08:43:00 73.426 kg [facility] BMI 2024-03-24 08:43:00 21.95 kg/m2 [facility] Body height 2024-03-22 10:28:00 182.9 cm [facility] Systolic blood pressure 2024-03-22 16:45:00 105 mm[Hg] [facility] Diastolic blood pressure 2024-03-22 16:45:00 56 mm[Hg] [facility] Heart rate 2024-03-22 16:45:00 88 /min [facility] Body temperature 2024-03-22 16:45:00 37.11 Mera [facility] Respiratory rate 2024-03-22 16:45:00 13 /min [facility] Oxygen saturation in Arterial blood by Pulse oximetry 2024-03-22 16:45:00 96 /min [facility] Body height 2024-03-22 10:28:00 182.9 cm [facility] Body weight 2024-03-22 10:28:00 72.7 kg [facility] BMI 2024-03-22 10:28:00 21.74 kg/m2 [facility] Systolic blood pressure 2024-03-10 19:51:00 129 mm[Hg] [facility] Diastolic blood pressure 2024-03-10 19:51:00 74 mm[Hg] [facility] Heart rate 2024-03-10 19:51:00 91 /min [facility] Body temperature 2024-03-10 19:49:00 36.78 Mera [facility] Respiratory rate 2024-03-10 19:49:00 20 /min [facility] Body height 2024-03-10 19:49:00 182.9 cm [facility] Body weight 2024-03-10 19:49:00 73.029 kg [facility] BMI 2024-03-10 19:49:00 21.84 kg/m2 [facility] Oxygen saturation in Arterial blood by Pulse oximetry 2024-03-10 19:49:00 97 /min [facility] Systolic blood pressure 2024-03-03 17:08:00 146 mm[Hg] [facility] Diastolic blood pressure 2024-03-03 17:08:00 82 mm[Hg] [facility] Heart rate 2024-03-03 17:07:00 75 /min [facility] Body temperature 2024-03-03 17:07:00 36.39 Mera [facility] Respiratory rate 2024-03-03 17:07:00 18 /min [facility] Body height 2024-03-03 17:07:00 182.9 cm [facility] Body weight 2024-03-03 17:07:00 73.936 kg [facility] BMI 2024-03-03 17:07:00 22.11 kg/m2 [facility] Oxygen saturation in Arterial blood by Pulse oximetry 2024-03-03 17:07:00 98 /min [facility] Systolic blood pressure 2024-03-03 13:42:00 134 mm[Hg] [facility] Diastolic blood pressure 2024-03-03 13:42:00 81 mm[Hg] [facility] Heart rate 2024-03-03 13:42:00 77 /min [facility] Respiratory rate 2024-03-03 13:42:00 18 /min [facility] Body height 2024-03-03 13:42:00 182.9 cm [facility] Body weight 2024-03-03 13:42:00 72.848 kg [facility] BMI 2024-03-03 13:42:00 21.78 kg/m2 [facility] Oxygen saturation in Arterial blood by Pulse oximetry 2024-03-03 13:42:00 98 /min [facility] Systolic blood pressure 2024-03-03 06:38:00 135 mm[Hg] [facility] Diastolic blood pressure 2024-03-03 06:38:00 75 mm[Hg] [facility] Heart rate 2024-03-03 06:38:00 77 /min [facility] Body temperature 2024-03-03 06:38:00 35.78 Mera [facility] Respiratory rate 2024-03-03 06:38:00 26 /min [facility] Oxygen saturation in Arterial blood by Pulse oximetry 2024-03-03 06:38:00 97 /min [facility] Body height 2024-03-03 04:21:00 182.9 cm [facility] Body weight 2024-03-03 04:21:00 73.936 kg [facility] BMI 2024-03-03 04:21:00 22.11 kg/m2 [facility] Systolic blood pressure 2024-02-25 17:44:00 130 mm[Hg] [facility] Diastolic blood pressure 2024-02-25 17:44:00 82 mm[Hg] [facility] Heart rate 2024-02-25 17:44:00 83 /min [facility] Body temperature 2024-02-25 17:44:00 36.61 Mera [facility] Respiratory rate 2024-02-25 17:44:00 18 /min [facility] Body height 2024-02-25 17:44:00 182.9 cm [facility] Body weight 2024-02-25 17:44:00 73.483 kg [facility] BMI 2024-02-25 17:44:00 21.97 kg/m2 [facility] Oxygen saturation in Arterial blood by Pulse oximetry 2024-02-25 17:44:00 97 /min [facility] Systolic blood pressure 2023-12-29 18:10:00 142 mm[Hg] [facility] Diastolic blood pressure 2023-12-29 18:10:00 72 mm[Hg] [facility] Heart rate 2023-12-29 18:10:00 65 /min [facility] Respiratory rate 2023-12-29 18:10:00 19 /min [facility] Body height 2023-12-29 18:10:00 182.9 cm [facility] Body weight 2023-12-29 18:10:00 77.61 kg [facility] BMI 2023-12-29 18:10:00 23.21 kg/m2 [facility] Oxygen saturation in Arterial blood by Pulse oximetry 2023-12-29 18:10:00 98 /min [facility] Systolic blood pressure 2023-12-28 15:14:00 135 mm[Hg] [facility] Diastolic blood pressure 2023-12-28 15:14:00 74 mm[Hg] [facility] Heart rate 2023-12-28 15:14:00 65 /min [facility] Body temperature 2023-12-28 15:14:00 36.39 Mera [facility] Respiratory rate 2023-12-28 15:14:00 18 /min [facility] Body height 2023-12-28 15:14:00 182.9 cm [facility] Body weight 2023-12-28 15:14:00 74.753 kg [facility] BMI 2023-12-28 15:14:00 22.35 kg/m2 [facility] Oxygen saturation in Arterial blood by Pulse oximetry 2023-12-28 15:14:00 98 /min [facility] Systolic blood pressure 2023-12-24 20:59:00 136 mm[Hg] [facility] Diastolic blood pressure 2023-12-24 20:59:00 71 mm[Hg] [facility] Heart rate 2023-12-24 20:59:00 70 /min [facility] Body temperature 2023-12-24 20:59:00 36.61 Mera [facility] Respiratory rate 2023-12-24 20:59:00 20 /min [facility] Body height 2023-12-24 20:59:00 182.9 cm [facility] Body weight 2023-12-24 20:59:00 76.204 kg [facility] BMI 2023-12-24 20:59:00 22.78 kg/m2 [facility] Oxygen saturation in Arterial blood by Pulse oximetry 2023-12-24 20:59:00 98 /min [facility] Systolic blood pressure 2023-12-11 18:16:00 141 mm[Hg] [facility] Diastolic blood pressure 2023-12-11 18:16:00 82 mm[Hg] [facility] Heart rate 2023-12-11 18:16:00 72 /min [facility] Body temperature 2023-12-11 18:16:00 36.33 Mera [facility] Body height 2023-12-11 18:16:00 182.9 cm [facility] Body weight 2023-12-11 18:16:00 75.297 kg [facility] BMI 2023-12-11 18:16:00 22.51 kg/m2 [facility] Oxygen saturation in Arterial blood by Pulse oximetry 2023-12-11 18:16:00 98 /min [facility] Systolic blood pressure 2023-11-27 21:36:00 136 mm[Hg] [facility] Diastolic blood pressure 2023-11-27 21:36:00 80 mm[Hg] [facility] Heart rate 2023-11-27 21:36:00 72 /min [facility] Body temperature 2023-11-27 21:36:00 36.61 Mera [facility] Respiratory rate 2023-11-27 21:36:00 17 /min [facility] Body height 2023-11-27 21:36:00 182.9 cm [facility] Body weight 2023-11-27 21:36:00 75.388 kg [facility] BMI 2023-11-27 21:36:00 22.54 kg/m2 [facility] Oxygen saturation in Arterial blood by Pulse oximetry 2023-11-27 21:36:00 98 /min [facility] Procedures Procedure Date / Time Performed Performing Clinician Source US ABDOMINAL AORTA SCREEN AAA 2024-06-02 15:12:33 Obi-Vicki, Iris [facility] CAROTID DUPLEX BILATERAL - BY VASCULAR LAB 2024-05-24 18:21:09 Ron Hoover [facility] POCT GLUCOSE (AUTOMATED) 2024-03-24 13:41:00 Sneha [facility] PHOSPHORUS 2024-03-24 09:31:00 Ed Hadley [facility] POCT GLUCOSE (AUTOMATED) 2024-03-23 21:55:00 Sneha [facility] POCT GLUCOSE (AUTOMATED) 2024-03-23 20:49:00 Sneha [facility] POCT GLUCOSE (AUTOMATED) 2024-03-23 16:48:00 Sneha, [facility] POCT GLUCOSE (AUTOMATED) 2024-03-23 16:48:00 Sneha, [facility] POCT GLUCOSE (AUTOMATED) 2024-03-23 12:34:00 Sneha, [facility] POCT GLUCOSE (AUTOMATED) 2024-03-23 12:34:00 Sneha [facility] PHOSPHORUS 2024-03-23 07:57:00 Ed Hadley [facility] MAGNESIUM 2024-03-23 07:57:00 Ed Hadley [facility] IONIZED CALCIUM 2024-03-23 07:57:00 Ruby Fabian [facility] BASIC METABOLIC PANEL (NA, K, CL, CO2, GLUCOSE, BUN, CREATININE, CA) 2024-03-23 07:57:00 Ed Hadley [facility] CBC WITH DIFF 2024-03-23 07:57:00 Ed Hadley [facility] PHOSPHORUS 2024-03-23 07:57:00 Ed Hadley [facility] MAGNESIUM 2024-03-23 07:57:00 Ed Hadley [facility] IONIZED CALCIUM 2024-03-23 07:57:00 Ruby Fabian [facility] BASIC METABOLIC PANEL (NA, K, CL, CO2, GLUCOSE, BUN, CREATININE, CA) 2024-03-23 07:57:00 Jomar [facility] CBC WITH DIFF 2024-03-23 07:57:00 Ed Hadley [facility] POCT GLUCOSE (AUTOMATED) 2024-03-23 02:15:00 Sneha, [facility] POCT GLUCOSE (AUTOMATED) 2024-03-23 02:15:00 Sneha, [facility] POCT GLUCOSE (AUTOMATED) 2024-03-22 22:22:00 Sneha, [facility] POCT GLUCOSE (AUTOMATED) 2024-03-22 22:22:00 Sneha, [facility] POCT GLUCOSE (AUTOMATED) 2024-03-22 18:10:00 Sneha, [facility] POCT GLUCOSE (AUTOMATED) 2024-03-22 18:10:00 Sneha, [facility] PHOSPHORUS 2024-03-22 16:30:00 Jerel Sandy [facility] MAGNESIUM 2024-03-22 16:30:00 Jerel Sandy [facility] BASIC METABOLIC PANEL (NA, K, CL, CO2, GLUCOSE, BUN, CREATININE, CA) 2024-03-22 16:30:00 [facility] 2024-03-22 16:30:00 Ed Hadley [facility] MRSA / MSSA SCREEN BY PCRKIT 2024-03-22 16:30:00 Jomar [facility] PHOSPHORUS 2024-03-22 16:30:00 Jerel Sandy [facility] MAGNESIUM 2024-03-22 16:30:00 Jerel Sandy [facility] BASIC METABOLIC PANEL (NA, K, CL, CO2, GLUCOSE, BUN, CREATININE, CA) 2024-03-22 16:30:00 Ed Hadley [facility] CBC WITH DIFF 2024-03-22 16:30:00 Ed Hadley [facility] MRSA / MSSA SCREEN BY PCR, KIT 2024-03-22 16:30:00 Ed Hadley [facility] POCT GLUCOSE (AUTOMATED) 2024-03-22 16:28:00 Christi Hoover [facility] POCT GLUCOSE (AUTOMATED) 2024-03-22 16:28:00 Christi Hoover [facility] CAROTID ENDARTERECTOMY 2024-03-22 12:05:00 Ernesto Hoover [facility] CAROTID ENDARTERECTOMY 2024-03-22 12:05:00 Ernesto Hoover [facility] ABORH CONFIRMATION (LAB ONLY) 2024-03-22 10:59:00 Graciela [facility] ABORH CONFIRMATION (LAB ONLY) 2024-03-22 10:59:00 Graciela [facility] POCT GLUCOSE(AGE >30DAYS) 2024-03-22 10:49:00 Graciela [facility] POCT GLUCOSE(AGE >30DAYS) 2024-03-22 10:49:00 Graciela [facility] POCT GLUCOSE (AUTOMATED) 2024-03-22 10:48:00 Sneha [facility] POCT GLUCOSE (AUTOMATED) 2024-03-22 10:48:00 Sneha [facility] HB ABO GROUPING 2024-03-19 15:46:00 Ron Hoover [facility] EKG-12 LEAD 2024-03-03 06:28:35 Rosalva Finch [facility] POCT GLUCOSE (AUTOMATED) 2024-03-03 06:01:00 Gladis Finch [facility] CT HEAD WO CONTRAST 2024-03-03 05:06:59 Gee Finch [facility] TROPONIN I 2024-03-03 04:41:00 Rosalva Finch [facility] BASIC METABOLIC PANEL (NA, K, CL, CO2, GLUCOSE, BUN, CREATININE, CA) 2024-03-03 04:41:00 Rosalva Finch [facility] CBC WITH DIFF 2024-03-03 04:41:00 [facility] POCT GLUCOSE (AUTOMATED) 2024-03-03 04:15:00 Gladis Finch [facility] EXTERNAL PROVIDER RECORDS 2024-01-12 05:01:00 Do ctor Unassigned, [place] [facility] AUTHORIZATION TO RELEASE PHI TO [facility] 2023-12-29 06:01:00 Doctor Unassigned, [place] [facility] HB ECG ROUTINE & RHYTHM STRIP 2023-12-28 15:18:11 Allyson Fink [facility] DME/SUPPLY JUSTIFICATION 2023-12-07 06:01:00 Doc tor Unassigned, [place] [facility] ASSIGNMENT OF BENEFITS 2023-11-27 21:19:25 Docto r Unassigned, [place] [facility] Encounters Start Date/Time End Date/Time Encounter Type Admission Type Attending Clinicians Care Facility Care Department Encounter ID Source 2024-08-30 13:20:00 2024-08-30 13:20:00 [id number] 2024-06-03 00:00:00 2024-06-03 09:24:18 Patient Secure Msg Iris Toth [facility] 1.2.840.114 350.1.13.10 4.2.7.2.686 [id number] [facility] 2024-06-02 09:22:31 2024-06-02 23:59:00 Outpatient R IRIS TOTH [facility] [id number] [facility] 2024-06-02 09:22:31 2024-06-02 23:59:00 [facility] 1.2.840.114 350.1.13.10 4.2.7.2.686 [id number] [facility] 2024-06-02 14:45:00 2024-06-02 15:07:24 Office Visit Krishan Macias Anthony [facility] 1.2.840.114 350.1.13.10 4.2.7.2.686 [id number] [facility] 2024-05-31 13:15:00 2024-05-31 13:30:00 General Inspector Visit 2, Adc Lab Iris Toth 2, [facility] 1.2.840.114 350.1.13.10 4.2.7.2.686 [id number] [facility] 2024-05-31 13:15:00 2024-05-31 13:15:00 Outpatient R OBI-IRIS CATHER[id number] 2024-05-31 11:15:00 2024-05-31 11:15:00 Outpatient R [facility] [id number] [facility] 2024-05-30 00:00:00 2024-05-30 09:55:54 Allyson [facility] 1.2840.114 350.1.13.10 4.2.7.2.686 [id number] [facility] 2024-05-26 13:20:00 2024-05-26 16:02:06 Office Visit ObIris Thornton [facility] 1.2.840.114 350.1.13.10 4.2.7.2.686 [id number] [facility] 2024-05-26 13:20:00 2024-05-26 16:02:06 [facility] [id number] 2024-05-26 13:00:00 2024-05-26 14:29:46 Office Visit Hillary [facility] 1.2.840.114 350.1.13.10 4.2.7.2.686 [id number] [facility] 2024-05-24 12:16:38 2024-05-24 23:59:00 Outpatient R RON HOOVER [facility] [id number] [facility] 2024-05-24 12:16:38 2024-05-24 23:59:00 [facility] 1.2.840.114 350.1.13.10 4.2.7.2.686 [id number] [facility] 2024-05-05 00:00:00 2024-05-05 00:00:00 Telephone Don Pat [facility] 1.2.840.114 350.1.13.10 4.2.7.2.686 [id number] [facility] 2024-05-03 11:00:00 2024-05-03 11:00:00 Outpatient R RON HOOVER [facility] [id number] [facility] 2024-04-29 00:00:00 2024-04-29 13:34:[address] [facility] 1.2.840.114 350.1.13.10 4.2.7.2.686 [id number] [facility] 2024-04-14 15:15:00 2024-04-14 15:46:47 Outpatient R RON HOOVER [facility] [id number] [facility] 2024-04-14 15:15:00 2024-04-14 15:46:47 Office Visit Ron Hoover [facility] 1.2.840.114 350.1.13.10 4.2.7.2.686 [id number] [facility] 2024-04-14 00:00:00 2024-04-14 13:31:03 [facility] 1.2.840.114 350.1.13.10 4.2.7.2.686 [id number] [facility] 2024-04-04 13:40:00 2024-04-04 13:54:04 Outpatient R ALEKS JODEEEMILIE [facility] [id number] [facility] 2024-04-04 13:40:00 2024-04-04 13:54:04 Office Visit AleksJodeegavi [facility] BUILDING 1.2.840.114 350.1.13.10 4.2.7.2.686 [id number] [facility] 2024-03-29 00:00:00 2024-03-31 12:22:49 Patient Outreach [facility] 1.2.840.114 350.1.13.10 4.2.7.2.686 [id number] [facility] 2024-03-29 14:00:00 2024-03-29 14:39:14 Outpatient R PAT CHAIDEZ [facility] [id number] [facility] 2024-03-29 14:00:00 2024-03-29 14:39:14 Office Visit Pat Chaidez [facility] 1.2.840.114 350.1.13.10 4.2.7.2.686 [id number] [facility] 2024-03-22 05:22:00 2024-03-24 12:30:00 Inpatient R RON HOOVER [facility] [id number] [facility] 2024-03-22 05:22:00 2024-03-24 12:30:00 Hospital Encounter [facility] 1.2.840.114 350.1.13.10 4.2.7.2.686 [id number] [facility] 2024-03-23 00:00:00 2024-03-23 14:50:58 Telephone Pat Chaidez [facility] 1.2.840.114 350.1.13.10 4.2.7.2.686 [id number] [facility] 2024-03-22 07:20:00 2024-03-22 11:52:00 Surgery [facility] 1.2.840.114 350.1.13.10 4.2.7.2.686 [id number] [facility] 2024-03-19 10:30:00 2024-03-19 10:45:00 General Inspector Visit Pob, Adc Lab Main Sne[facility] 1.2.840.114 350.1.13.10 4.2.7.2.686 [id number] [facility] 2024-03-19 10:30:00 2024-03-19 10:30:00 Outpatient R RON HOOVER [facility] [id number] [facility] 2024-03-17 00:00:00 2024-03-17 16:04:33 Telephone Pat Chaidez [facility] 1.2.840.114 350.1.13.10 4.2.7.2.686 [id number] [facility] 2024-03-14 00:00:00 2024-03-14 13:37:35 Patient Secure Msg Doctor Unassigned, [place] [facility] 1.2840.114 350.1.13.10 4.2.7.2.686 [id number] [facility] 2024-03-11 00:00:00 2024-03-11 15:05:51 Telephone Pat Chaidez [facility] 1.2840.114 350.1.13.10 4.2.7.2.686 [id number] [facility] 2024-03-10 15:00:00 2024-03-10 15:15:00 Office Visit Ron Hoover [facility] 1.2840.114 350.1.13.10 4.2.7.2.686 [id number] [facility] 2024-03-10 15:00:00 2024-03-10 15:00:00 Outpatient [facility] [id number] [facility] 2024-03-08 13:00:00 2024-03-08 13:00:00 Outpatient RON CARRASQUILLO [facility] [id number] [facility] 2024-01-29 00:00:00 2024-03-05 18:13:43 Patient Secure Msg Doctor Unassigned, [place] [facility] 1.2.840.114 350.1.13.10 4.2.7.2.686 [id number] [facility] 2024-03-03 14:00:00 2024-03-03 14:00:00 Office Visit Pat Chaidez [facility] BUILD[facility] 1.2840.114 350.1.13.10 4.2.7.2.686 [id number] [facility] 2024-03-03 00:00:00 2024-03-03 13:18:42 Patient Outreach [facility]stead [facility] 1.2.840.114 350.1.13.10 4.2.7.2.686 [id number] [facility] 2024-03-03 14:00:00 2024-03-03 12:57:12 [facility] [id number] [facility] 2024-03-03 09:20:00 2024-03-03 09:20:00 Office Visit Jodee Finkgavi [facility] BUILDING 1.2840.114 350.1.13.10 4.2.7.2.686 [id number] [facility] 2024-03-03 09:20:00 2024-03-03 09:07:37 Outpatient R ALEKS JODEEGAVI [facility] ERT [id number] [facility] 2024-03-02 23:27:00 2024-03-03 01:59:00 Emergency [place] Jonasdelmar [facility] 1.2840.114 350.1.13.10 4.2.7.2.686 [id number] [facility] 2024-03-02 00:00:00 2024-03-02 16:26:41 Telephone Pat Chaidez [facility] 1.2.840.114 350.1.13.10 4.2.7.2.686 [id number] [facility] 2024-03-02 00:00:00 2024-03-02 11:17:44 Telephone Ron Hoover [facility] 1.2.840.114 350.1.13.10 4.2.7.2.686 [id number] [facility] 2024-03-01 00:00:00 2024-03-01 13:58:48 Patient Outreach Michelle Olmstead [facility] 1.2.840.114 350.1.13.10 4.2.7.2.686 [id number] [facility] 2024-02-29 00:00:00 2024-02-29 13:19:28 Telephone Ron Hoover [facility] 1.2.840.114 350.1.13.10 4.2.7.2.686 [id number] [facility] 2024-02-25 13:30:00 2024-02-25 13:30:00 Office Visit Kayden Chaidezssica [facility] 1.20.114 350.1.13.10 4.2.7.2.686 [id number] [facility] 2024-02-25 13:30:00 2024-02-25 13:27:04 Outpatient PAT [facility] [id number] [facility] 2024-02-22 13:00:00 2024-02-22 14:02:15 Outpatient PAT MOSER [facility] [id number] [facility] 2024-02-22 13:00:00 2024-02-22 13:15:00 General Inspector Visit 2, Adc Lab Don Pat [facility] BUILDING 1.2840.114 350.1.13.10 4.2.7.2.686 [id number] [facility] 2024-02-10 00:00:00 2024-02-10 00:00:00 Telephone Kayden Chaidezssica [facility] BUILDING 1.2840.114 350.1.13.10 4.2.7.2.686 [id number] [facility] 2024-02-02 13:00:00 2024-02-02 13:00:00 Outpatient [facility] [id number] [facility] 2024-01-29 00:00:00 2024-01-29 00:00:00 Telephone Pat Chaidez [facility] BUILD[facility] 1.840.114 350.1.13.10 4.2.7.2.686 [id number] [facility] 2024-01-19 14:00:00 2024-01-19 14:00:00 Outpatient RON [facility] [id number] [facility] 2024-01-12 00:00:00 2024-01-12 00:00:00 Orders Only Doctor Unassigned, [place] [facility] 1.114 350.1.13.10 4.2.7.2.686 [id number] [facility] 2024-01-06 00:00:00 2024-01-06 00:00:00 Telephone Krihsan Cowart [facility] 1.840.114 350.1.13.10 4.2.7.2.686 [id number] [facility] 2024-01-04 00:00:00 2024-01-04 00:00:00 Telephone [facility] 1.84.114 350.1.13.10 4.2.7.2.686 [id number] [facility] 2024-01-01 00:00:00 2024-01-01 00:00:00 Patient Secure Msg Doctor Unassigned, [place] [facility] 1.84.114 350.1.13.10 4.2.7.2.686 [id number] [facility] 2023-12-29 11:40:00 2023-12-29 16:54:53 Office Visit Lasha Aguilar [facility] 1.840.114 350.1.13.10 4.2.7.2.686 [id number] [facility] 2023-12-29 11:40:00 2023-12-29 16:54:53 Outpatient R LASHA AGUILAR [facility] [id number] [facility] 2023-12-29 00:00:00 2023-12-29 00:00:00 Telephone Lasha Aguilar [facility] 1.84.114 350.1.13.10 4.2.7.2.686 [id number] [facility] 2023-12-29 00:00:00 2023-12-29 00:00:00 Orders Only Doctor Unassigned, [place] [facility] 1.84.114 350.1.13.10 4.2.7.2.686 [id number] [facility] 2023-12-28 09:40:00 2023-12-28 09:40:00 Office Visit Allyson Fink [facility] N[facility] BUILD[facility] 1.84.114 350.1.13.10 4.2.7.2.686 [id number] [facility] 2023-12-28 09:40:00 2023-12-28 09:39:59 Outpatient R ALLYSON FINK [facility] [id number] [facility] 2023-12-28 00:00:00 2023-12-28 00:00:00 Letter (Out) [facility] 1..114 350.1.13.10 4.2.7.2.686 [id number] [facility] 2023-12-24 16:15:00 2023-12-24 16:15:00 Office Visit Ron Hoover [facility] 1.2840.114 350.1.13.10 4.2.7.2.686 [id number] [facility] 2023-12-24 16:15:00 2023-12-24 15:29:05 Outpatient R [facility] [id number] [facility] 2023-12-11 12:30:00 2023-12-11 12:48:04 Outpatient PAT MOSER [facility] [id number] [facility] 2023-12-11 12:30:00 2023-12-11 12:48:04 Office [facility] 1.2840.114 350.1.13.10 4.2.7.2.686 [id number] [facility] 2023-12-08 00:00:00 2023-12-08 00:00:00 Telephone Deandra Medina 1.2840.114 350.1.13.10 4.2.7.2.686 [id number] [facility] 2023-12-07 14:40:00 2023-12-07 14:40:00 Outpatient [facility] [id number] [facility] 2023-12-07 00:00:00 2023-12-07 00:00:00 Orders Only Doctor Unassigned, [place] [facility] 1.2840.114 350.1.13.10 4.2.7.2.686 [id number] [facility] 2023-12-02 11:45:00 2023-12-02 14:08:59 General Inspector Visit 2, [facility] Pat Chaidez [facility] 1.2.840.114 350.1.13.10 4.2.7.2.686 [id number] [facility] 2023-12-02 11:45:00 2023-12-02 11:45:00 Outpatient R PAT [facility] [id number] [facility] 2023-12-02 00:00:00 2023-12-02 00:00:00 Refill Kayden Chaidezssica [facility] 1.2.840.114 350.1.13.10 4.2.7.2.686 [id number] [facility] 2023-12-02 00:00:00 2023-12-02 00:00:00 Telephone Pat Chaidez [facility] 1.2.840.114 350.1.13.10 4.2.7.2.686 [id number] [facility] 2023-12-01 00:00:00 2023-12-01 00:00:00 Patient Outreach Pablo Debbie R [facility] 1.2.840.114 350.1.13.10 4.2.7.2.686 [id number] [facility] 2023-11-27 15:30:00 2023-11-27 16:17:50 Outpatient R PAT CHAIDEZ [facility] [id number] [facility] 2023-11-27 15:30:00 2023-11-27 16:17:50 Office Visit Pat Chaidez [facility] 1.2.840.114 350.1.13.10 4.2.7.2.686 [id number] [facility] 2023-11-27 00:00:00 2023-11-27 00:00:00 Patient Secure Msg Doctor Unassigned, [place] [facility] [id number] [facility] 2023-11-27 00:00:00 2023-11-27 00:00:00 Orders Only Doctor Unassigned, [place] [facility] [id number] [id number] [facility] Results Test Description Test Time Test Comments Results Resul t Comments Source US ABDOMINAL AORTA SCREEN AAA 8 15:17:23 HISTORY: ?AAA screening. COMPARISON: None. TECHNIQUE: Abdominal aorta including bifurcation evaluated in multipleplanes without and with color interrogation. FINDINGS: Proximal abdominal aorta is 2.3 x 2.4 cm, mid segment is 2.0 x2.8 cm and distal segment is 1.4 x 2.0 cm with mild diffuse atherosclerosisis noted. Aortic bifurcation appears normal. Right common iliac artery is10 mm and left common iliac artery is 11 to 12 mm in average diameter. CONCLUSIONS: Mild atherosclerosis of lower abdominal aorta. No AAA. [facility] GLUCOSE (AUTOMATED)2024-03-23 21:56:53* Test Item Value Reference Range Interpretation Comme nts POCT GLU (test code = 4221188686) 159 mg/dL 70-110 H Lab Interpretation (test cod e = 23404-9) Abnormal [facility] GLUCOSE (AUTOMATED)2024-03-23 20:50:05* Test Item Value Reference Range Interpretation Comme nts POCT GLU (test code = 5075432949) 164 mg/dL 70-110 H Lab Interpretation (test cod e = 22257-8) Abnormal [facility] GLUCOSE (AUTOMATED)2024-03-23 16:49:23* Test Item Value Reference Range Interpretation Comme nts POCT GLU (test code = 1522440641) 227 mg/dL 70-110 H Lab Interpretation (test cod e = 81646-4) Abnormal [facility] GLUCOSE (AUTOMATED)2024-03-23 16:49:23* Test Item Value Reference Range Interpretation Comme nts POCT GLU (test code = 5929130062) 227 mg/dL 70-110 H Lab Interpretation (test cod e = 77078-9) Abnormal [facility] GLUCOSE (AUTOMATED)2024-03-23 12:35:20* Test Item Value Reference Range Interpretation Comme nts POCT GLU (test code = 4978809270) 195 mg/dL 70-110 H Lab Interpretation (test cod e = 33087-3) Abnormal [facility] GLUCOSE (AUTOMATED)2024-03-23 12:35:20* Test Item Value Reference Range Interpretation Comme nts POCT GLU (test code = 0130706269) 195 mg/dL 70-110 H Lab Interpretation (test cod e = 19237-5) Abnormal [facility] GLUCOSE (AUTOMATED)2024-03-23 02:16:55* Test Item Value Reference Range Interpretation Comme nts POCT GLU (test code = 9458178427) 240 mg/dL 70-110 H Lab Interpretation (test cod e = 70021-7) Abnormal [facility] GLUCOSE (AUTOMATED)2024-03-23 02:16:55* Test Item Value Reference Range Interpretation Comme nts POCT GLU (test code = 8886629919) 240 mg/dL 70-110 H Lab Interpretation (test cod e = 61873-6) Abnormal [facility] GLUCOSE (AUTOMATED)2024-03-22 22:23:53* Test Item Value Reference Range Interpretation Comme nts POCT GLU (test code = 2727365163) 266 mg/dL 70-110 H Lab Interpretation (test cod e = 08781-3) Abnormal [facility] GLUCOSE (AUTOMATED)2024-03-22 22:23:53* Test Item Value Reference Range Interpretation Comme nts POCT GLU (test code = 0510899300) 266 mg/dL 70-110 H Lab Interpretation (test cod e = 89456-5) Abnormal [facility] GLUCOSE (AUTOMATED)2024-03-22 18:12:55* Test Item Value Reference Range Interpretation Comme nts POCT GLU (test code = 3567424637) 269 mg/dL 70-110 H Notified Provide r Lab Interpretation (test code = 85279-9) Abnormal [facility] GLUCOSE (AUTOMATED)2024-03-22 18:12:55* Test Item Value Reference Range Interpretation Comme nts POCT GLU (test code = 7797247707) 269 mg/dL 70-110 H Notified Provide r Lab Interpretation (test code = 28040-0) [facility] 17:14:17* Test Item Value Reference Range Interpretation Comme nts MAGNESIUM (test code = 5790682869) 1.7 mg/dL 1.7-2.4 Lab Interpretation (test cod e = 66217-7) [facility]24-[facility] 17:14:17* Test Item Value Reference Range Interpretation Comme nts PHOSPHORUS (test code = 4943228861) 3.0 mg/dL 2.5-5.0 Lab Interpretation (test cod e = 89504-0) Normal [facility] Metabolic Panel (NA, K, CL, CO2, GLUCOSE, BUN, CREATININE, CA)2024-03-22 17:14:17* Test Item Value Reference Range Interpretation Comme nts NA (test code = 6795576049) 137 mmol/L 135-145 K (test code = 5804973633) 4.0 mmol/L 3.5-5.0 CL (test code = 3269582494) 109 mmol/L 98-108 H CO2 TOTAL (test code = 0630893924) 24 mmol/L 23-31 AGAP (test code = 5159880833) 4 2-16 BUN (test code = 7892925097) 14 mg/dL 7-23 GLUCOSE (test code = 7554939221) 238 mg/dL 70-110 H CREATININE (test code = 2160-0) 0.56 mg/dL 0.60-1.25 L CALCIUM (test code = 3150967199) 8.2 mg/dL 8.6-10.6 L eGFR (test code = 24789-0) 108.7 mL/min/1.73m2 CKD-EPI eGFR (2020). Assuming creatinine has been stable day-to-day for at least three months, the eGFR indicates Category G1 (>= 90 mL/min/1.73 m2) Lab Interpretation (test code = 33749-8) [facility]24-[facility] 17:14:17* Test Item Value Reference Range Interpretation Comme nts MAGNESIUM (test code = 3994851407) 1.7 mg/dL 1.7-2.4 Lab Interpretation (test cod e = 37152-5) [facility]24-[facility] 17:14:17* Test Item Value Reference Range Interpretation Comme nts PHOSPHORUS (test code = 7371554972) 3.0 mg/dL 2.5-5.0 Lab Interpretation (test cod e = 65783-7) [facility] Met[facility] (NA, K, CL, CO2, GLUCOSE, BUN, CREATININE, CA)2024-03-22 17:14:17* Test Item Value Reference Range Interpretation Comme nts NA (test code = 6124642574) 137 mmol/L 135-145 K (test code = 0245444389) 4.0 mmol/L 3.5-5.0 CL (test code = 1835015019) 109 mmol/L 98-108 H CO2 TOTAL (test code = 7125302177) 24 mmol/L 23-31 AGAP (test code = 8168599720) 4 2-16 BUN (test code = 7879194268) 14 mg/dL 7-23 GLUCOSE (test code = 5984394207) 238 mg/dL 70-110 H CREATININE (test code = 2160-0) 0.56 mg/dL 0.60-1.25 L CALCIUM (test code = 4745350795) 8.2 mg/dL 8.6-10.6 L eGFR (test code = 41092-7) 108.7 mL/min/1.73m2 CKD-EPI eGFR (2020). Assuming creatinine has been stable day-to-day for at least three months, the eGFR indicates Category G1 (>= 90 mL/min/1.73 m2) Lab Interpretation (test code = 28775-7) [facility]normal [facility] with [id number] 16:43:11* Test Item Value Reference Range Interpretation [...] 33.5 g/dL 31.2-35.0 RDW-SD (test code = 37374-5) 39.9 fL 38.5-51.6 RDW-CV (test code = 788-0) 12.1 % 12.1-15.4 PLT (test code = 777-3) 229 150-328 MPV (test code = 90484-8) 10.0 fL 9.8-13.0 NRBC/100 WBC (test code = 1614933831) 0.0 0.0-10.0 NRBC x10^3 (test code = 5087467326) See_Comment [Automated messa ge] The system which generated this result transmitted reference range: 10*3/?L. The reference range was not used to interpret this result as normal/abnormal. GRAN MAT (NEUT) % (test code = 770-8) 82.8 % IMM GRAN % (test code = 9469748452) 0.40 % LYMPH % (test code = 736-9) 14.6 % MONO % (test code = 5905-5) 1.4 % EOS % (test code = 713-8) 0.4 % BASO % (test code = 706-2) 0.4 % GRAN MAT x10^3(ANC) (test code = 4032775392) 4.66 10*3/uL 1.99-6.95 IMM GRAN x10^3 (test code = 0266333731) 0.00-0.06 LYMPH x10^3 (test code = 731-0) 0.82 10*3/uL 1.09-3.23 L MONO x10^3 (test code = 742-7) 0.08 10*3/uL 0.36-1.02 L EOS x10^3 (test code = 711-2) 0.06-0.53 L BASO x10^3 (test code = 704-7) 0.01-0.09 Lab Interpretation (test code = 99735-6) Abnormal [facility] with Wgzy1602-07-83 16:43:11* Test Item Value Reference Range Interpretation [...] 33.5 g/dL 31.2-35.0 RDW-SD (test code = 78243-1) 39.9 fL 38.5-51.6 RDW-CV (test code = 788-0) 12.1 % 12.1-15.4 PLT (test code = 777-3) 229 150-328 MPV (test code = 47456-9) 10.0 fL 9.8-13.0 NRBC/100 WBC (test code = 8992396033) 0.0 0.0-10.0 NRBC x10^3 (test code = 3209518201) See_Comment [Automated messa ge] The system which generated this result transmitted reference range: 10*3/?L. The reference range was not used to interpret this result as normal/abnormal. GRAN MAT (NEUT) % (test code = 770-8) 82.8 % IMM GRAN % (test code = 9850229674) 0.40 % LYMPH % (test code = 736-9) 14.6 % MONO % (test code = 5905-5) 1.4 % EOS % (test code = 713-8) 0.4 % BASO % (test code = 706-2) 0.4 % GRAN MAT x10^3(ANC) (test code = 5068730259) 4.66 10*3/uL 1.99-6.95 IMM GRAN x10^3 (test code = 3087793571) 0.00-0.06 LYMPH x10^3 (test code = 731-0) 0.82 10*3/uL 1.09-3.23 L MONO x10^3 (test code = 742-7) 0.08 10*3/uL 0.36-1.02 L EOS x10^3 (test code = 711-2) 0.06-0.53 L BASO x10^3 (test code = 704-7) 0.01-0.09 Lab Interpretation (test code = 29731-2) Abnormal [facility] GLUCOSE (AUTOMATED)2024-03-22 16:30:20* Test Item Value Reference Range Interpretation Comme nts POCT GLU (test code = 7136037464) 250 mg/dL 70-110 H Lab Interpretation (test cod e = 86601-0) Abnormal [facility] GLUCOSE (AUTOMATED)2024-03-22 16:30:20* Test Item Value Reference Range Interpretation Comme nts POCT GLU (test code = 0669891050) 250 mg/dL 70-110 H Lab Interpretation (test cod e = 23317-6) [facility]normal [facility] Confirm[facility] (Lab Only)2024-03-22 12:34:24* Test Item Value Reference Range Interpretation Comme nts ABO & RH (test code = 20) A Positive Performed at [facility] Laboratory [facility] Blood [address] Free: [phone] No. [id number] [facility] Confirmation (Lab Only)2024-03-22 12:34:24* Test Item Value Reference Range Interpretation Comme nts ABO & RH (test code = 20) A Positive Performed at [facility] Laboratory Services [facility] Blood [place] [address]Toll Free: [phone] No. [id number] [facility] GLUCOSE (AUTOMATED)2024-03-22 10:48:44* Test Item Value Reference Range Interpretation Comme nts POCT GLU (test code = 0754734425) 204 mg/dL 70-110 H Lab Interpretation (test cod e = 28931-4) Abnormal [facility] GLUCOSE (AUTOMATED)2024-03-22 10:48:44* Test Item Value Reference Range Interpretation Comme nts POCT GLU (test code = 8560914961) 204 mg/dL 70-110 H Lab Interpretation (test cod e = 25726-3) Abnormal [facility] Oblslco5955-25-36 00:00:00* Test Item Value Reference Range Interpretation Comme nts POCT Glu (age>30days) (test code = 3342) 204 mg/dL 70-110 A Lab Interpretation (test cod e = 77731-4) Abnormal [facility] Rugxixq4725-23-44 00:00:00* Test Item Value Reference Range Interpretation Comme nts POCT Glu (age>30days) (test code = 3342) 204 mg/dL 70-110 A Lab Interpretation (test cod e = 02617-1) [facility]normal [facility] Screen - STAT [id number] 22:56:00* Test Item Value Reference Range Interpretation Comme nts ABO & RH (test code = 20) A POSITIVE IAT (test code = 1185) Negative [facility] GLUCOSE (AUTOMATED)2024-03-03 06:02:22* Test Item Value Reference Range Interpretation Comme nts POCT GLU (test code = 5700999242) 120 mg/dL 70-110 H Lab Interpretation (test cod e = 05632-8) Abnormal [facility] HEAD WO [id number] 05:47:04Exam: CT Head Without Contrast, 03/02/2024 11:45 [...] significant mastoidair cell opacification. Visualized orbits are unremarkable.[facility] [id number] 05:18:52* Test Item Value Reference Range Interpretation Comme nts TROPONIN I (test code = 3271090189) 0.002 ng/mL <=0.034 ROLANDO (test code = [...] of biotin. Lab Interpretation (test code = 54419-4) Normal [facility] METABOLIC PANEL (NA, K, CL, CO2, GLUCOSE, BUN, CREATININE, CA)2024-03-03 05:06:47* Test Item Value Reference Range Interpretation Comme nts NA (test code = 5022318640) 137 mmol/L 135-145 K (test code = 6490887033) 3.8 mmol/L 3.5-5.0 CL (test code = 1630627690) 105 mmol/L 98-108 CO2 TOTAL (test code = 9051143379) 23 mmol/L 23-31 AGAP (test code = 1567857502) 9 2-16 BUN (test code = 6165373993) 18 mg/dL 7-23 GLUCOSE (test code = 6255127672) 135 mg/dL 70-110 H CREATININE (test code = 2160-0) 0.64 mg/dL 0.60-1.25 CALCIUM (test code = 4638130229) 9.3 mg/dL 8.6-10.6 eGFR (test code = 94586-0) 104.4 mL/min/1.73m2 CKD-EPI eGFR (2020). Assuming creatinine has been stable day-to-day for at least three months, the eGFR indicates Category G1 (>= 90 mL/min/1.73 m2) Lab Interpretation (test code = 54924-8) Abnormal [facility] WITH [id number] 04:57:27* Test Item Value Reference Range Interpretation [...] 34.6 g/dL 31.2-35.0 RDW-SD (test code = 44408-5) 40.2 fL 38.5-51.6 RDW-CV (test code = 788-0) 12.2 % 12.1-15.4 PLT (test code = 777-3) 333 150-328 H MPV (test code = 32224-2) 10.0 fL 9.8-13.0 NRBC/100 WBC (test code = 0753240095) 0.0 0.0-10.0 NRBC x10^3 (test code = 6482677734) See_Comment [Automated [employer]tva ge] The system which generated this result transmitted reference range: 10*3/?L. The reference range was not used to interpret this result as normal/abnormal. GRAN MAT (NEUT) % (test code = 770-8) 53.1 % IMM GRAN % (test code = 0983668210) 0.30 % LYMPH % (test code = 736-9) 33.6 % MONO % (test code = 5905-5) 9.8 % EOS % (test code = 713-8) 2.3 % BASO % (test code = 706-2) 0.9 % GRAN MAT x10^3(ANC) (test code = 3778779407) 3.97 10*3/uL 1.99-6.95 IMM GRAN x10^3 (test code = 0287582773) 0.00-0.06 LYMPH x10^3 (test code = 731-0) 2.51 10*3/uL 1.09-3.23 MONO x10^3 (test code = 742-7) 0.73 10*3/uL 0.36-1.02 EOS x10^3 (test code = 711-2) 0.17 10*3/uL 0.06-0.53 BASO x10^3 (test code = 704-7) 0.07 10*3/uL 0.01-0.09 Lab Interpretation (test code = 03557-0) [facility]2024-03-03 04:16:06* Test Item Value Reference Range Interpretation Comme nts POCT GLU (test code = 1662477434) 123 mg/dL 70-110 H Lab Interpretation (test cod e = 17399-3) Abnormal [facility] History and Physical Notes Date/Time Note Provider Source 2024-03-22 06:11:17 Interval H&P Chief complaint: Carotid stenosis, symptomatic I met the patient in the [facility] area. He confirmed he presented for scheduled Right carotid endarterectomy for symptomatic carotid stenosis with previous strokes. The patient confirmed no new diagnoses, admissions, ED visits or notable changes to their health since the clinic visit on 03/10/2024. Indication, benefits, risks, and alternatives of the procedure were discussed with the patient. All questions were answered. Physical exam Vitals: 03/22/24 05 BP: (!) 143/74 Pulse: 75 Resp: 18 Temp: 35.7 ?C (96.2 ?F) SpO2: 99% General: anxious Neuro: grossly non-focal Plan -Proceed to OR for planned R carotid endarterectomy . Сергей Connolly? MD Marilee PGY- 1 General Surgery Associated attestation - Ron Hoover MD - 03/22/2024 7:03 AM CDT I personally examined the patient on 03/22/2024 and agree with Сергей Jones MD resident note as written with changes as below. I actively participated in the decision-making process. Please see the resident's note for additional details. Right carotid stenosis with remote history of stroke. Considered asymptomatic at this point. Risks/benefits/alternatives discussed with patient and agrees to proceed with right CEA Ron Hoover MD, RPVI, FSVS Vascular Surgery PGY17 Source Note - Ron Hoover MD - 03/10/2024 3:00 PM CDT Vascular Surgery Clinic Note Date of Service: 03/10/2024 HISTORY OF PRESENT ILLNESS: 68 year old male who comes in the clinic today for evaluation of carotid artery stenosis. Patient reports several years ago that he collapsed and had intracranial hemorrhage. He was treated initially in the [facility] and then was apparently transferred to [place] for further care. He reports that testing [...] neurological defects. He is taking medications as prescribed. He comes in today for follow-up after completing his carotid duplex as well as CT angiogram. No interval neurologic events. PAST MEDICAL HISTORY: Past Medical History: Diagnosis Date Brain bleed Diabetes mellitus Hypertension Kidney stone Past Surgical History: Procedure Laterality Date CORONARY ARTERY BYPASS GRAFT CRANIOTOMY Medications: Home Medications: Current Outpatient Medications on File Prior to Visit Medication Sig Dispense Refill metoprolol succinate XL 25 mg 24 hr tablet Take 1 tablet by mouth in the morning. 30 tablet 3 dulaglutide (TRULICITY) 1.5 mg/0.5 mL PnIj inject 1 Pen under the skin weekly. 12 Pen 0 flash glucose sensor (FREESTYLE SARAH 2 SENSOR) Kit 1 Kit every 2 (two) weeks. 6 Kit 1 BD ULTRAFINE III MINI PEN 31 gauge x 3/16" Ndle USE DIRECTED 4 TIMES A DAY cholecalciferol, vitD3,/vit K2 (VITAMIN D3-VITAMIN K2 ORAL) Take by mouth. docosahexaenoic acid/epa (FISH OIL ORAL) Take by mouth. Magnesium Oxide 500 mg Cap Take by mouth. ubidecarenone (CO Q-10 ORAL) Take by mouth. Blood-Glucose Sensor (FREESTYLE SARAH 3 SENSOR) Nasreen Use as directed 5 Each 3 losartan 25 mg tablet Take 1 tablet by mouth in the morning. 90 tablet 1 rosuvastatin (CRESTOR) 10 mg tablet Take 1 tablet by mouth at bedtime. 90 tablet 1 aspirin 81 mg chewable tablet Take 1 tablet by mouth in the morning. insulin aspart U-100 (NOVOLOG FLEXPEN U-100 INSULIN) 100 unit/mL (3 mL) injection inject 10 Units under the skin in the morning and 10 Units at noon and 10 Units in the evening. inject before meals. Inject 5 to 10 units three times a day with meals 3 Each 1 Insulin Glargine (LANTUS SOLOSTAR U-100 INSULIN) 100 unit/mL (3 mL) injection inject 20 Units under the skin in the morning. 3 Each 1 metFORMIN 500 mg tablet Take 1 tablet by mouth in the morning and 1 tablet in the evening. Take with meals. 180 tablet 1 No current facility-administered medications on file prior to visit. Social History Socioeconomic History Marital status: Tobacco Use Smoking status: Former Types: Cigarettes Smokeless tobacco: Never Substance and Sexual Activity Alcohol use: Never Drug use: Not Currently Family History Problem Relation Age of Onset Diabetes Mother Cancer Mother Coronary Heart Disease Mother Hypertension Mother Coronary Heart Disease Father Heart Father Hypertension Father Diabetes Sister Allergies: Allergies Allergen Reactions Jardiance [Empagliflozin] Unknown - See comments Morphine Unknown - See comments Make sure patient is not allergic to Contrast (Iodine): No Physical Exam: BP 129/74 | Pulse 91 | Temp 36.8 ?C (98.2 ?F) | Resp 20 | Ht 1.829 m (6') | Wt 73 kg (161 lb) | SpO2 97% | BMI 21.84 kg/m? No acute distress Neck is supple. No JVD Chest is clear to auscultation Heart regular rate and rhythm Abdomen is soft nontender nondistended Upper and lower extremities no clubbing cyanosis or edema Upper and lower extremity flexors and extensors are symmetric Speech is normal and muscles of facial expression are symmetric and intact Labs: CBC BMP LIPID PANEL WBC (10*3/?L) Date Value 03/02/2024 7.47 NA (mmol/L) Date Value 03/02/2024 137 CHOL (mg/dL) Date Value 12/02/2023 188 MCV (fL) Date Value 03/02/2024 90.3 K (mmol/L) Date Value 03/02/2024 3.8 LDL CHOL (mg/dL) Date Value 12/02/2023 132 PLT (10*3/?L) Date Value 03/02/2024 333 (H) CL (mmol/L) Date Value 03/02/2024 105 HDL (mg/dL) Date Value 12/02/2023 41 HGB (g/dL) Date Value 03/02/2024 14.2 CO2 TOTAL (mmol/L) Date Value 03/02/2024 23 TRIG (mg/dL) Date Value 12/02/2023 74 HCT (%) Date Value 03/02/2024 41.0 BUN (mg/dL) Date Value 03/02/2024 18 aPTT CREATININE (mg/dL) Date Value 03/02/2024 0.64 No results found for: "APTTPAT" TYPE AND SCREEN GLUCOSE (mg/dL) Date Value 03/02/2024 135 (H) PT/INR No results found for: "TSABINT" CALCIUM (mg/dL) Date Value 03/02/2024 9.3 No results found for: "PT" No results found for: "PTINR" Diagnosis: Carotid artery stenosis Assessment/Plan Problem #1 -duplex and CT angiogram reviewed. Has greater than 80% stenosis of the right internal carotid artery and greater than 50% stenosis on the left. Options for management discussed in detail. Will plan right carotid endarterectomy in the near near future at [place]. CAROLYN-SURGERY [facility] - Health Notes Date/Time Note Provider Source 2024-06-03 09:14:27 FINDINGS: Proximal abdominal aorta is 2.3 x 2.4 cm, mid segment is 2.0 x 2.8 cm and distal segment is 1.4 x 2.0 cm with mild diffuse atherosclerosis. is noted. Aortic bifurcation appears normal. Right common iliac artery is 10 mm and left common iliac artery is 11 to 12 mm in average diameter. CONCLUSIONS: Mild atherosclerosis of lower abdominal aorta. No AAA. Plan - is risk factor modification Ensure diabetic control and blood pressure and cholesterol is stable [facility] 2024-05-31 13:15:00 Images from the original note were not included. Venipuncture collection performed by clean technique on the right anticubitus. Total of 1 attempts were made. Slight pressure and a bandage/dressing were applied to the site(s). The patient experienced no complications. The following specimens were processed according to instructions and sent to [facility] laboratories per lab order on 05/31/2024: LT BLUE SST 1 RED LAV 2 PPT DK GREEN (LiHep) DK GREEN (SodH) MENON DK BLUE (K2) DK BLUE (S) ACD Blood Culture NIPT/NTD Patient has been identified by and name and was provided with cup, antiseptic towelette, and clean catch instructions. 1 urine specimen(s) sent. Unpreserved 1 Urine Culture Aptima tube Other urine [facility] 2024-05-05 10:49:33 Images from the original note were not included. Scanned in folder and placed in provider basket for review. Lynne Christiansen [facility] 2024-04-29 13:34:10 Noted-Pat Garcia Pat Garcia MA [facility] 2024-04-29 13:02:49 Maximus Sheehan is a 68 year old male and Amarilys with [facility] is calling to notify they will be sending over 2 orders for discharging and readmitting the pt for home Health care. Stated that [employer] has changed their billing policies and they need to readmit pt for care to follow the policies. The orders will not change the pts HH care. Myriam Haney [facility] 2024-04-14 13:27:53 Images from the original note were not included. Requested Renewals dulaglutide (TRULICITY) 1.5 mg/0.5 mL PnIj Sig: inject 1 Pen under the skin weekly. Disp: 12 Pen Refills: 0 Start: 04/14/2024 Class: eRX Non-formulary For: Type 2 diabetes mellitus without complication, with long-term current use of insulin Last ordered: 3 months ago (01/04/2024) by ROBYN Rollins Rx #: [id number] Patient comment: I am out as of today Endocrinology: Diabetes - Insulins Mqvrio5204/14/2024 01:16 PM Protocol Details Manual review: Staff refilling for [facility], Cr lab not required to refill Cr in normal range and within 360 days Valid encounter within last 12 months HBA1C within 180 days To be filled at: [id number] 03-29-2024 [facility] 2024-04-14 13:16:12 From: Maximus Sheehan To: Office of Pat Chaidez Sent: 04/14/2024 12:51 PM CDT Subject: Medication Renewal Request Refills have been requested for the following medications: dulaglutide (TRULICITY) 1.5 mg/0.5 mL PnIj [Pat Chaidez] Patient Comment: I am out as of today Preferred pharmacy: [id number] Delivery method: Pickup [facility] 2024-03-28 08:27:15 Quanta vicente pad test 02/24/24 concerning for moderate pad. Continue risk assessment and reduction. [facility] statin [facility] 2024-03-28 08:12:35 Records reviewed, f/u in next appointment [facility] STAFF [facility] 2024-03-24 12:11:30 Problem: Bleeding, Risk of Goal: Absence of impaired coagulation signs and symptoms 03/24/2024 1211 by Lakeshia Turcios RN Outcome: Adequate for discharge 03/24/2024 0838 by Lakeshia Turcios RN Outcome: Progressing as expected Goal: Absence of active bleeding 03/24/2024 1211 by Lakeshia Turcios RN Outcome: Adequate for discharge 03/24/2024 0838 by Lakeshia Turcios RN Outcome: Progressing as expected Problem: Falls, Risk of Goal: Absence of falls 03/24/2024 1211 by Lakeshia Turcios RN Outcome: Adequate for discharge 03/24/2024 0838 by Lakeshia Turcios RN Outcome: Progressing as expected Problem: Discharge Planning Goal: Adequate for discharge 03/24/2024 1211 by Lakeshia Turcios RN Outcome: Adequate for discharge 03/24/2024 0838 by Lakeshia Turcios RN Outcome: Progressing as expected Goal: Effective communication 03/24/2024 1211 by Lakeshia Turcios RN Outcome: Adequate for discharge 03/24/2024 0838 by Lakeshia Turcios RN Outcome: Progressing as expected Lakeshia Turcios RN [facility] 2024-03-24 08:38:24 Problem: Bleeding, Risk of Goal: Absence of impaired coagulation signs and symptoms Outcome: Progressing as expected Goal: Absence of active bleeding Outcome: Progressing as expected Problem: Falls, Risk of Goal: Absence of falls Outcome: Progressing as expected Problem: Discharge Planning Goal: Adequate for discharge Outcome: Progressing as expected Goal: Effective communication Outcome: Progressing as expected [facility] 2024-03-24 03:23:47 Problem: Bleeding, Risk of Goal: Absence of impaired coagulation signs and symptoms 03/24/2024323 by Jose Cruz RN Outcome: Progressing as expected 03/24/2024322 by Jose Cruz RN Outcome: Progressing as expected Goal: Absence of active bleeding 03/24/2024323 by Jose Cruz RN Outcome: Progressing as expected 03/24/2024322 by Jose Cruz RN Outcome: Progressing as expected Problem: Falls, Risk of Goal: Absence of falls Outcome: Progressing as expected Problem: Discharge Planning Goal: Adequate for discharge Outcome: Progressing as expected Goal: Effective communication Outcome: Progressing as expected Jose Cruz RN [facility] 2024-03-23 14:48:50 Health assessment received from [facility] scanned in folder and placed in provider basket for review. Lynne Christiansen [facility] 2024-03-22 21:46:38 Problem: Bleeding, Risk of Goal: Absence of impaired coagulation signs and symptoms Outcome: Progressing as expected Goal: Absence of active bleeding Outcome: Progressing as expected Nkjunior Griffith Nnabuife KERRY [facility] 2024-03-22 08:19:00 FULL OPERATIVE NOTE Date of Surgery: 03/22/2024 Faculty physician: MD Hoover Shariq Resident physician: MD Hadley Alexis; Proa? Сергей Hunt Anesthesia Type: general - GETA Pre-operative diagnosis: Right carotid artery stenosis, asymptomatic Post-operative diagnosis: same Procedures: Right internal carotid endarterectomy with patch angioplasty with bovine pericardium Indications: This patient presented with distant history of intracranial [...] forward with the procedure. Informed consent was obtained. Narrative: The patient was taken to the operating room [...] There were no gross neurological deficits on awakening. Complications: none apparent Estimated blood loss: 100 mL Specimens: Right internal carotid plaque to pathology Drains: none Specific postop instructions: - Q2H neurovascular checks - SBP goal <140 Ed Hadley MD PGY-4, Vascular Surgery Associated attestation - Ron Hoover MD - 03/24/2024 7:31 AM CDT I was scrubbed in and directly supervised and/or performed all critical portions of the procedure. Ron Hoover MD, RPVI, FSVS Vascular Surgery PGY17 [facility]-VASCULAR SURGERY [facility] 2024-03-22 08:19:00 BRIEF OPERATIVE NOTE Date of Surgery: 03/22/2024 Surgeons and Role: * Ron Hoover MD - Primary * Ed Hadley MD - Resident - Assisting Pre-Op Diagnosis: Carotid stenosis, bilateral [I65.23] Post-Op Diagnosis Codes: * Carotid stenosis, bilateral [I65.23] Procedures: Procedure(s) (LRB): CAROTID ENDARTERECTOMY (Right) [facility] Any Complications Encounters: none Estimated Blood Loss: 100cc Specimens Removed: * No specimens in log * Implant Name Type Inv. Item Serial No. Clinical Veterinarian Lot No. LRB No. Used Action PATCH XENOSUR 0.8X8CM TAPR 0.5 #[id number] - [id number] Tissue, Biological PATCH XENOSUR 0.8X8CM TAPR 0.5 #[id number] 0000 [facility] VASCULAR [id number] Right 1 Implanted Patient's Condition: stable Findings: ICA stenosis Any other important information: - SBP goal <140 Please see dictated operative report for additional detail. Associated attestation - Ron Hoover MD - 03/24/2024 7:31 AM CDT I was scrubbed in and directly supervised and/or performed all critical portions of the procedure. Ron Hoover MD, VI, FSVS Vascular Surgery PGY17 [facility] 2024-03-19 10:30:00 Images from the original note were not included. Venipuncture collection performed by clean technique on the left anticubitus. Total of 1 attempts were made. Slight pressure and a bandage/dressing were applied to the site(s). The patient experienced no complications. The following specimens were processed according to instructions and sent to [facility] laboratories per lab order on 03/19/2024 : Patient armbanded and specimen sent to [facility]. LT BLUE SST RED LAV 1 PPT DK GREEN (LiHep) DK GREEN (SodH) MENON DK BLUE (K2) DK BLUE (S) ACD Blood Culture NIPT/NTD [facility] 2024-03-17 16:02:18 Results received from [facility] scanned in folder and placed in provider basket for review. Lynne Christiansen [facility] 2024-03-14 11:49:56 Rollator order sent to [facility] [employer] via [employer]. Malinda Ramos RN [facility] 2024-03-11 14:59:20 Images from the original note were not included. POC discussed with pt, ER precautions discussed. Pt verbalized understanding and agrees w/POC. Pat Chaidez FNP MIDLEVEL PROVIDER Signed 2:38 PM I would continue to hold the Losartan If the BP starts to go up to 140/90 Then start back at Losartan 12.5 mg (half the tablet) Malinda Ramos RN [facility] 2024-03-11 14:38:58 I would continue to hold the Losartan If the BP starts to go up to 140/90 Then start back at Losartan 12.5 mg (half the tablet) [facility] 2024-03-11 14:12:39 Pt states HH nurse saw him today and informed him he would need to call our office due to self discontinuation of Losartan. Pt reports was taking Losartan in the AM and Metoprolol () in the PM. Pt states on the and 13 his BP readings were 98/59 and 94/56 [...] of Rollator. Rx re-printed to send via [employer]. Message forwarded to ROBYN Esparza. [facility] 2024-03-11 13:08:47 Copied from [facility] #[id number]. Topic: Clinical - Medical Advice >> March 11, 2024 1:05 PM Patient Patient Registration Manager wrote: Pt calls and states that his BP is continuously low. Pt stopped taking losartan [address] Fink put pt on metoprolol and made him stop taking carvedilol. He states that it is starting to get a little better. He is requesting to speak with clinical staff in regards to his blood pressure readings. Please advise. T Janie Hardwick [facility] 2024-03-10 15:00:00 Addended by: RON HOOVER MD on: 03/17/2024 04:12 PM Modules accepted: Orders T [facility] 2024-03-03 01:59:06 Pt dc'd home with personal walker. Pt v/u to keep follow up appointments that he already has scheduled and to return to ED for worsening symptoms. Quiana Carranza RN [facility] 2024-03-02 23:43:23 Pt stated he had a fall last Thursday and woke up 30 min later on the floor. Pt had full workup at [facility]. Pt stated tonight he "just felt like I wasn't going to wake up in the morning so I decided to come get checked out." Pt obtained a ride from [place] and asked me if we could keep him until 8am so he could walk across the street to his cardiology appointment at 9am. [facility] 2024-03-02 23:16:00 Pt arrives ambulatory with walker to ED [...] up but slowly. BG 123 in triage. Marianela Walker RN [facility] 2024-03-02 16:21:06 Forms placed in nurse folder, has appt tomorrow. 03/03/2024. Malinda Ramos RN [facility] 2024-03-02 14:04:26 Please make sure patient brings imaging studies with him to appointment (CT results on disc please, not just report) CAROLYN-VASCULAR SURGERY STAFF [facility] 2024-03-02 13:53:08 Images from the original note were not included. Transition of Care forms received placed in Nurse fax folder. Cynthia Walker [facility] 2024-03-02 11:16:48 [facility] reports and disc received by patient and placed in the providers folder at [facility] location. Reports scanned to [employer] for upload. Ana Maria Andrew [facility] 2024-02-29 13:16:02 Patient scheduled for next available 03/10/24 and message routed to Dr Hoover for notification. Spoke with patient and notified next available 03/10/24. Patient encouraged to let attending know that he is scheduled for next available 03/10/[address] Hoover. Patient verbalized understanding. Maureen Mazariegos RN [facility] 2024-02-29 13:01:37 Maximus Sheehan is a 68 year old male Pt is hospitalized at [facility] to blacking out and falling on Thursday States they are doing testing and his carotid arteries are 80% blocked and he needs surgery HARESH States he would like to notify/speak with Dr Hoover to see if he can get him scheduled for surgery haresh States he is being discharged in the next couple of hours Please advise [phone] (home) Deja Morocho [facility] 2024-02-22 13:00:00 Images from the original note were not included. Venipuncture collection performed by clean technique on the right anticubitus. Total of 3 attempts were made. Slight pressure and a bandage/dressing were applied to the site(s). The patient experienced no complications. The following specimens were processed according to instructions and sent to [facility] laboratories per lab order on 02/22/2024 : LT BLUE SST 2 RED LAV 1 PPT DK GREEN (LiHep) DK GREEN (SodH) MENON DK BLUE (K2) DK BLUE (S) ACD Blood Culture NIPT/NTD [facility] 2024-02-10 15:14:11 Forms received and placed in providers folder. Malinda Ramos RN [facility] 2024-02-10 08:57:17 Images from the original note were not included. Placed in nurse folder. Lynne Christiansen [facility] 2024-02-10 08:50:30 Will await forms for completion Malinda Ramos RN [facility] 2024-02-10 08:21:11 Maximus Sheehan is a 68 year old male January [facility] medical called stating they will be faxing over "Sarah 2 sensors forms" for pcp to be filled out. Please advise [facility] MEDICAL INFO Ph # [phone] Fx # [phone] Anatoly Clark [facility] 2024-01-29 12:43:02 Refill [facility] 2024-01-29 11:31:00 Medication has not been filled by our office before. Message forwarded to provider for approval. Malinda Ramos RN [facility] 2024-01-06 09:06:45 Images from the original note were not included. Notification received [facility], placed in provider folder for review. Cynthiaholli Walker [facility] 2024-01-04 16:53:53 Received medical records from [facility] scanned and placed in box. Yancy Thurston [facility] 2024-01-04 15:13:09 Sensor has been sent to a DME company ([employer]) through [employer]. Patient rollator is waiting for provider signature. Resent to provider to sign orders through [employer]. Marianela Calderon MA [facility] 2024-01-04 13:51:14 Per patient, he is using the [employer] 2 sensor and it must be sent to [employer], it cannot be sent to the pharmacy. Order updated. Will routed to [facility] for DME order to [employer]. [facility] 2023-12-29 13:59:51 Pt has signed medical release and has been faxed to designated location for request of medical records. Confirmation received. Scanned and uploaded to patients chart. SERVICER Lucia Sandoval [facility] 2023-12-08 10:49:19 Maximus [place] [id number] 12/08/23 Incoming call from patient who is trying to contact his PCP, Pat GRANGER regarding his medication. Current overdue topics are as follows Health Maintenance Due Topic Date Due Medicare Wellness Visit Never done SARS-CoV-2 (COVID-19) Vaccine (1) Never done EYE EXAM Never done Depression Screening Never done HIV Screening Never done SDOH Financial Resource Strain Never done SDOH Food Insecurity Never done SDOH Transportation Needs Never done FOOT EXAM Never done HEPATITIS C (HCV) SCREEN Never done DTaP,Tdap,and Td Vaccines (1 - Tdap) Never done Colorectal Cancer Screening Never done Zoster Recombinant Vaccine (SHINGRIX) (1 of 2) Never done PNEUMOCOCCAL VACCINES 65+ (1 of 1 - PCV) Never done INFLUENZA VACCINE (1) Never done AAA Screening 2022 Patient stated "I need to contact my PCP, Pat Chaidez regarding my medication and some questions I have. I was trying to contact the clinic but some how my phone call got routed to you. Can you transfer me or give me the phone number. Attempted to transfer but unable to transfer to this clinic in [place], [place]. Patient was given the clinic phone number [phone] to speak with staff at the [facility]. Deandra Medina RN 12/08/2023 10:49 AM SERVICER Deandra Medina RN [facility] 2023-12-02 11:45:00 Images from the original note were not included. Venipuncture collection performed by clean technique on the right anticubitus. Total of 1 attempts were made. Slight pressure and a bandage/dressing were applied to the site(s). The patient experienced no complications. The following specimens were processed according to instructions and sent to [facility] laboratories per lab order on 12/02/2023: LT BLUE SST 1 RED LAV 2 PPT DK GREEN (LiHep) DK GREEN (SodH) MENON DK BLUE (K2) DK BLUE (S) ACD Blood Culture NIPT/NTD Patient has been identified by and name and was provided with cup, antiseptic towelette, and clean catch instructions. 2 urine specimen(s) sent. Unpreserved 2 Urine Culture Aptima tube Other urine SERVICER [facility] 2023-12-02 10:32:53 DME order for Rollator was sent through [employer]. Sent to [facility] Patient. SERVICER Marianela Calderon MA [facility]
[2024-06-04 02:48] LABS: Absolute Eosinophils 0.1 K/uL (0-0.5); Absolute Lymphocytes (CBC) 2.2 K/uL (0.7-4.9); Absolute Monocytes 0.5 K/uL (0.1-1.3); Absolute Neutrophil 3.2 K/uL (1.8-8.0); Basophils % 0.5 % (0-1.3); Eosinophils % 1.8 % (0-4.4); Hematocrit 41.2 % (39.6-49.0); Hemoglobin 13.6 g/dL (13.6-17.9); Lymphocytes % 36.2 % (15.3-44.8); MCH 29.6 pg (27.0-35.0); MCHC 32.9 g/dL (32.0-36.0); MCV 89.9 fL (80-100); MPV 8.3 fL (7.6-11.3); Monocytes % 8.7 % (3.3-12.3); Neutrophils % 52.8 % (41.7-73.7); Platelets 325 thou/uL (152-406); RBC Red Blood Cell Count 4.59 M/uL (4.33-5.43); Red Cell Distribution Width 13.2 % (12.1-15.2)
[2024-06-04 02:51] LABS: PT Prothrombin Time 10.5 SECONDS (9.4-12.5); PTT, Activated Partial Thromb 30.1 SECONDS (24.3-36.9); Protime INR 0.94
[2024-06-04 02:59] LABS: Anion Gap 7.8 mEq/L (5.0-15.0); Potassium 3.8 mEq/L (3.5-5.1); Troponin High Sensitivity 21.3 pg/mL (<58.9)
--- NOTE | 2024-06-04 04:50 | ER ---
Nurse's Notes [facility] Name: Amando Sheehan Age: 68 yrs Sex: Male : 1955 Arrival Date: 06/04/2024 Time: 01:41 Bed 3 Private MD: Diagnosis: Parasthesias;Muscle spasm Presentation: 06/04 01:43 Chief complaint: Patient states: I think I had a TIA earlier. I woke up around 0000 bm8 with right side pain and a numbness all down right side. Coronavirus screen: At this time, the client does not indicate any symptoms associated with coronavirus-19. Ebola Screen: Patient negative for fever greater than or equal to 101.5 degrees Fahrenheit, and additional compatible Ebola Virus Disease symptoms Patient denies exposure to infectious person. Patient denies travel to an Ebola-affected area in the 21 days before illness onset. No symptoms or risks identified at this time. 01:43 Method Of Arrival: EMS: [facility] bm8 02:16 Initial Sepsis Screen: Does the patient meet any 2 criteria? No. Patient's initial bm8 sepsis screen is negative. Does the patient have a suspected source of infection? No. Patient's initial sepsis screen is negative. Risk Assessment: Do you want to hurt yourself or someone else? Patient reports no desire to harm self or others. Onset of symptoms was June 04, 2024 at 00:00. 02:16 Acuity: SILVIA 2 bm8 Triage Assessment: 01:43 General: Appears in no apparent distress. comfortable, Behavior is calm, cooperative, bm8 appropriate for age. Pain: Denies pain. EENT: No deficits noted. No signs and/or symptoms were reported regarding the EENT system. Neuro: No deficits noted. Level of Consciousness is awake, alert, obeys commands, Oriented to person, place, time, situation, Appropriate for age Production Roustabout are equal bilaterally Moves all extremities. Full function Speech is normal, Facial symmetry appears normal, Pupils are PERRLA, Pupil Size: 3mm Intact Denies weakness dizziness, numbness. Cardiovascular: Denies chest pain, lightheadedness, shortness of breath, Capillary refill < 3 seconds Patient's skin is warm and dry. Rhythm is RBBB. Respiratory: Airway is patent Respiratory effort is even, unlabored, Respiratory pattern is regular, symmetrical, Breath sounds are clear bilaterally. GI: No signs and/or symptoms were reported involving the gastrointestinal system. : No signs and/or symptoms were reported regarding the genitourinary system. Derm: No signs and/or symptoms reported regarding the dermatologic system. Musculoskeletal: No signs and/or symptoms reported regarding the musculoskeletal system. Historical: - Allergies: 02:12 Morphine; bm8 - Home Meds: 02:12 Aspirin Oral [Active]; carvedilol oral [Active]; Lantus Sub-Q [Active]; Metformin Oral bm8 [Active]; - PMHx: 02:12 Brain bleed; Cerebrovascular accident; Myocardial infarction; Transient cerebral bm8 ischemia; traumatic brain injury; - PSHx: 02:12 brain surgery; Coronary artery bypass graft; Stented artery; bm8 - Immunization history:: Adult Immunizations up to date. - Infectious Disease History:: Denies. - Social history:: Smoking status: Patient denies any tobacco usage or history of. Patient/guardian denies using alcohol, street drugs. Screenin:44 VAN Screening: Arm Drift: Patient shows no arm weakness. Patient is VAN negative. bm8 Visual Disturbance: No visual disturbance noted. Aphasia: No aphasia noted. Neglect: No neglect noted. [place] Swallow Protocol Exclusion Criteria: Unable to remain alert for testing: No NPO for medical/surgical reason by provider order No Tracheostomy tube present No No thin liquids due to preexisting dysphagia/baseline modified diet thickened liquids No Exclusion Criteria Result: Proceed Brief Cognitive Screen What is your name? Normal, Where are you right now? Normal, What year is it? Normal. Oral Mechanism Examination Facial Symmetry: Normal, Motion: Normal, Lip Closure: Normal, Oral Mechanism Result: Normal. 3 oz Water Swallow Challenge: Pt able to drink all water without stopping, coughing, choking or throat clearing: Yes Result: PASS. 02:16 [facility] ED Fall Risk Assessment (Adult) History of falling in the last 3 months, bm8 including since admission No falls in past 3 months (0 pts) Confusion or Disorientation No (0 pts) Intoxicated or Sedated No (0 pts) Impaired Gait No (0 pts) Mobility Assist Device Used No (0 pt) Altered Elimination No (0 pt) Score/Fall Risk Level 0 - 2 = Low Risk Oriented to surroundings, Maintained a safe environment, Educated pt \T\ family on fall prevention, incl call for assistance when getting out of bed, Assessed \T\ reinforced patient's understanding of fall precautions, Hourly rounding (assess needs \T\ fall precautionary measures) done, Used ambulatory aids as needed (educated on \T\ assisted with), Used gait belt as appropriate. Abuse screen: Denies threats or abuse. Nutritional screening: No deficits noted. Tuberculosis screening: No symptoms or risk factors identified. Assessment: 02:16 Reassessment: see triage assessment. bm8 03:30 Reassessment: Patient appears in no apparent distress at this time. No changes from bm8 previously documented assessment. Patient and/or family updated on plan of care and expected duration. Pain level reassessed. Patient is alert, oriented x 3, equal unlabored respirations, skin warm/dry/pink. Patient denies pain at this time. 04:47 General: Appears in no apparent distress. comfortable, Behavior is calm, cooperative, bm8 appropriate for age. Pain: Denies pain. Neuro: No deficits noted. Level of Consciousness is awake, alert, obeys commands, Oriented to person, place, time, situation, Appropriate for age Production Roustabout are equal bilaterally Moves all extremities. Full function Speech is normal, Facial symmetry appears normal, Pupils are PERRLA, Pupil Size: 3mm Intact. Cardiovascular: Denies chest pain, Capillary refill < 3 seconds Patient's skin is warm and dry. Respiratory: Airway is patent Respiratory effort is even, unlabored, Respiratory pattern is regular, symmetrical. GI: No signs and/or symptoms were reported involving the gastrointestinal system. : No signs and/or symptoms were reported regarding the genitourinary system. EENT: No signs and/or symptoms were reported regarding the EENT system. Derm: No signs and/or symptoms reported regarding the dermatologic system. Musculoskeletal: No signs and/or symptoms reported regarding the musculoskeletal system. Vital Signs: 01:43 BP 142 / 76; Pulse 89; Resp 18; Temp 97.9; Pulse Ox 96% ; Weight 72.12 kg; Height 6 ft. bm8 0 in. ; Pain 0/10; 03:30 BP 135 / 71; Pulse 77; Resp 15; Temp 97.9; Pulse Ox 100% ; Pain 0/10; bm8 04:47 BP 139 / 76; Pulse 84; Resp 16; Temp 97.9; Pulse Ox 97% ; Pain 0/10; bm8 01:43 Body Mass Index 21.56 (72.12 kg, 182.88 cm) bm8 01:43 Pain Scale: Adult bm8 03:30 Pain Scale: Adult bm8 04:47 Pain Scale: Adult bm8 [place] Coma Score: 02:16 Eye Response: spontaneous(4). Motor Response: obeys commands(6). Verbal Response: bm8 oriented(5). Total: 15. 04:47 Eye Response: spontaneous(4). Motor Response: obeys commands(6). Verbal Response: bm8 oriented(5). Total: 15. NIH Stroke Scale Scores: 01:44 NIHSS Score: 0 bm8 02:25 NIHSS Score: 0 ec2 ED Course: 01:43 Patient arrived in ED. rv1 01:43 Arm band placed on right wrist. EKG completed in triage. Results shown to MD. EKG done bm8 per protocol. Performed by ED Staff. Shown to ED physician. Labs ordered per protocol. Drawn by ED staff. 01:46 Matthew Lake MD is Attending Physician. ec2 02:05 XRAY Chest (1 view) In Process Unspecified. EDMS 02:10 Yonathan Peña, RN is Primary Nurse. bm8 02:16 Triage completed. bm8 02:16 Patient has correct armband on for positive identification. Bed in low position. Call bm8 light in reach. Side rails up X 1. Client placed on continuous cardiac and pulse oximetry monitoring. NIBP monitoring applied. photo mask processor on. Pulse ox on. NIBP on. Door closed. Noise minimized. Visitors limited. Warm blanket given. Pillow given. Verbal reassurance given. Head of bed elevated. 02:16 No provider procedures requiring assistance completed. Initial lab(s) drawn, by ish zarate sent to lab. EKG done, by ED staff, reviewed by Matthew Lake MD X-ray(s) taken. Inserted saline lock: 20 gauge in left forearm, using aseptic technique. Blood collected. Flushed with 10 mL NS. 03:11 CT Head Brain wo Cont In Process Unspecified. EDMS 03:11 CT Neck Angio In Process Unspecified. EDMS 03:11 Head angio In Process Unspecified. EDMS 05:06 IV discontinued, intact, bleeding controlled, No redness/swelling at site. Pressure bm8 dressing applied. 05:07 Provided Education on: post er care. bm8 Administered Medications: No medications were administered Medication: 02:16 VIS not applicable for this client. bm8 Point of Care Testing: Blood Glucose: 01:43 Blood Glucose: 290 mg/dL; bm8 Ranges: Outcome: 04:50 Discharge ordered by . ec2 05:06 Discharged to home ambulatory, bm8 05:06 Condition: stable 05:06 Discharge instructions given to patient, Instructed on discharge instructions, follow up and referral plans. safety practices, Demonstrated understanding of instructions, follow-up care, 05:07 Patient left the ED. bm8 NIH Stroke Scale - NIH Stroke Score Date: 06/04/2024 Time: 01:44 Total Score = 0 10. Dysarthria (speech clarity - read or repeat words) - 0(Normal) 11. Extinction and Inattention (visual/tactile/auditory/spatial/personal) - 0(No abnormality) 1a. Level of Consciousness (LOC) - 0(Alert) 1b. Level of Consciousness (LOC) (Month \T\ Age) - 0(Both) 1c. LOC Commands (Open \T\ Closes Eyes/Producer Director) - 0(Both) 2. Best Gaze (Lateral Gaze Paresis) - 0(Normal) 3. Visual Field Loss - 0(No visual loss) 4. Facial Palsy - 0(Normal) 5a. Left Arm: Motor (10-second hold) - 0(No drift) 5b. Right Arm: Motor (10-second hold) - 0(No drift) 6a. Left Leg: Motor (5-second hold - always test supine) - 0(No drift) 6b. Right Leg: Motor (5-second hold - always test supine) - 0(No drift) 7. Limb Ataxia (finger/nose \T\ heel/silver - test with eyes open) - 0(Absent) 8. Sensory Loss (pinprick arms/legs/face) - 0(Normal) 9. Best Language: Aphasia (description/naming/reading) - 0(No aphasia) Initials: bm8 NIH Stroke Scale - NIH Stroke Score Date: 06/04/2024 Time: 02:25 Total Score = 0 10. Dysarthria (speech clarity - read or repeat words) - 0(Normal) 11. Extinction and Inattention (visual/tactile/auditory/spatial/personal) - 0(No abnormality) 1a. Level of Consciousness (LOC) - 0(Alert) 1b. Level of Consciousness (LOC) (Month \T\ Age) - 0(Both) 1c. LOC Commands (Open \T\ Closes Eyes/Producer Director) - 0(Both) 2. Best Gaze (Lateral Gaze Paresis) - 0(Normal) 3. Visual Field Loss - 0(No visual loss) 4. Facial Palsy - 0(Normal) 5a. Left Arm: Motor (10-second hold) - 0(No drift) 5b. Right Arm: Motor (10-second hold) - 0(No drift) 6a. Left Leg: Motor (5-second hold - always test supine) - 0(No drift) 6b. Right Leg: Motor (5-second hold - always test supine) - 0(No drift) 7. Limb Ataxia (finger/nose \T\ heel/silver - test with eyes open) - 0(Absent) 8. Sensory Loss (pinprick arms/legs/face) - 0(Normal) 9. Best Language: Aphasia (description/naming/reading) - 0(No aphasia) Initials: ec2 Signatures: Dispatcher [employer] Glenda Andrade rv1 Matthew Lake MD MD ec2 Yonathan Peña RN RN bm8
--- NOTE | 2024-06-04 04:50 | EDPHYS ---
Physician Documentation [facility] Name: Amando Sheehan Age: 68 yrs Sex: Male : 1955 Arrival Date: 06/04/2024 Time: 01:41 Bed 3 Private MD: ED Physician Matthew Lake HPI: 06/04 01:48 This 68 yrs old Male presents to ER via Unassigned with complaints of ec2 numbness, resolved. 01:48 Patient arrives today for right upper extremity numbness as well as right upper ec2 extremity spasms and pain in the right hand which is now resolved. Onset approximately 2 hours prior to arrival. Denies any chest pain, difficulty breathing, abdominal pain, nausea or vomiting. States that he had previous TIAs with numbness however the pain is different. Previous history of TIA, previous history of stroke.. Historical: - Allergies: 02:12 Morphine; bm8 - Home Meds: 02:12 Aspirin Oral [Active]; carvedilol oral [Active]; Lantus Sub-Q [Active]; Metformin Oral bm8 [Active]; - PMHx: 02:12 Brain bleed; Cerebrovascular accident; Myocardial infarction; Transient cerebral bm8 ischemia; traumatic brain injury; - PSHx: 02:12 brain surgery; Coronary artery bypass graft; Stented artery; bm8 - Immunization history:: Adult Immunizations up to date. - Infectious Disease History:: Denies. - Social history:: Smoking status: Patient denies any tobacco usage or history of. Patient/guardian denies using alcohol, street drugs. ROS: 01:48 Constitutional: as per hpi ec2 Exam: 01:48 Constitutional: GEN: NAD Head: atraumatic Eyes: EOMI Ears: External ears are ec2 normal. CV: regular rate LUNGS: no respiratory distress ABD: non-distended SKIN: no evidence of rashes MSK: no evidence of trauma NEURO: moves all extremities equally, cranial nerves II through XII intact, strength intact all 4 extremities, sensation tact throughout all extremities. Vital Signs: 01:43 BP 142 / 76; Pulse 89; Resp 18; Temp 97.9; Pulse Ox 96% ; Weight 72.12 kg; Height 6 ft. bm8 0 in. ; Pain 0/10; 03:30 BP 135 / 71; Pulse 77; Resp 15; Temp 97.9; Pulse Ox 100% ; Pain 0/10; bm8 04:47 BP 139 / 76; Pulse 84; Resp 16; Temp 97.9; Pulse Ox 97% ; Pain 0/10; bm8 01:43 Body Mass Index 21.56 (72.12 kg, 182.88 cm) bm8 01:43 Pain Scale: Adult bm8 03:30 Pain Scale: Adult bm8 04:47 Pain Scale: Adult bm8 NIH Stroke Scale Scores: 01:44 NIHSS Score: 0 bm8 02:25 NIHSS Score: 0 ec2 [place] Coma Score: 02:16 Eye Response: spontaneous(4). Motor Response: obeys commands(6). Verbal Response: bm8 oriented(5). Total: 15. 04:47 Eye Response: spontaneous(4). Motor Response: obeys commands(6). Verbal Response: bm8 oriented(5). Total: 15. MDM: 01:47 Patient medically screened. ec2 01:48 Data reviewed: vital signs. ED course: Patient arrives today due to concern for ec2 numbness which is now resolved. Examination remarkable for no intact individuals otherwise in no acute distress with a reassuring examination. Obtain lab work and CT scan. Differential includes TIA, electrolyte disturbances, anemia, muscular spasm. . 02:06 ED course: EKG independently reviewed and interpreted by me, shows normal sinus rhythm, ec2 rate of 87, no acute ST segment elevations, intervals nonconcerning, right bundle branch block noted.. 03:12 ED course: Metabolic profile reassuring, CBC reassuring, troponin within normal ranges, ec2 coagulation profile unremarkable. Pending CT imaging. . 04:26 ED course: CT head and CT angio of the neck shows no acute pathology. Pending CT angio ec2 head . 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 Patient ec2 reports that this is a known problem for him.. 04:49 ED course: On reassessment patient remains well-appearing no acute distress. Ultimately ec2 sounds like patient had a muscular spasm causing his right upper extremity pain and paresthesias. . 06/04 01:47 Order name: Basic Metabolic Panel; Complete Time: 03:11 ec2 06/04 01:47 Order name: CBC with Diff; Complete Time: 03:11 ec2 06/04 01:47 Order name: Troponin HS; Complete Time: 03:11 ec2 06/04 01:48 Order name: PT-INR; Complete Time: 03:11 ec2 06/04 01:48 Order name: Ptt, Activated; Complete Time: 03:11 ec2 06/04 02:26 Order name: Glucose, Ancillary Testing; Complete Time: 03:11 EDMS 06/04 01:47 Order name: XRAY Chest (1 view) ec2 06/04 01:47 Order name: CT Head Brain wo Cont ec2 06/04 01:47 Order name: CT Neck Angio ec2 06/04 02:20 Order name: Head angio EDMS 06/04 01:47 Order name: EKG; Complete Time: 01:48 ec2 06/04 01:47 Order name: Cardiac monitoring; Complete Time: 02:18 ec2 06/04 01:47 Order name: EKG - Nurse/Tech; Complete Time: 02:18 ec2 06/04 01:47 Order name: IV Saline Lock; Complete Time: 02:18 ec2 06/04 01:47 Order name: Labs collected and sent; Complete Time: 02:18 ec2 06/04 01:47 Order name: O2 Per Protocol; Complete Time: 02:18 ec2 06/04 01:47 Order name: O2 Sat Monitoring; Complete Time: 02:18 ec2 Administered Medications: No medications were administered Point of Care Testing: Blood Glucose: 01:43 Blood Glucose: 290 mg/dL; bm8 Ranges: Critical Glucose Levels:Adult <50 mg/dl or >400 mg/dl <40 mg/dl or >180 mg/dl Disposition Summary: 06/04/24 04:50 Discharge Ordered Notes: Location: Home ec2 Condition: Stable ec2 Diagnosis - Parasthesias ec2 - Muscle spasm ec2 Followup: ec2 - With: Private Physician - When: - Reason: Re-evaluation by your physician Discharge Instructions: - Discharge Summary Sheet ec2 - Muscle Cramps and Spasms ec2 Forms: - Medication Reconciliation Form ec2 - Antibiotic Education ec2 - Prescription Opioid Use ec2 - Patient Portal Instructions ec2 - Leadership Thank You Letter ec2 NIH Stroke Scale - NIH Stroke Score Date: 06/04/2024 Time: 01:44 Total Score = 0 10. Dysarthria (speech clarity - read or repeat words) - 0(Normal) 11. Extinction and Inattention (visual/tactile/auditory/spatial/personal) - 0(No abnormality) 1a. Level of Consciousness (LOC) - 0(Alert) 1b. Level of Consciousness (LOC) (Month \T\ Age) - 0(Both) 1c. LOC Commands (Open \T\ Closes Eyes/Ed Case Manager) - 0(Both) 2. Best Gaze (Lateral Gaze Paresis) - 0(Normal) 3. Visual Field Loss - 0(No visual loss) 4. Facial Palsy - 0(Normal) 5a. Left Arm: Motor (10-second hold) - 0(No drift) 5b. Right Arm: Motor (10-second hold) - 0(No drift) 6a. Left Leg: Motor (5-second hold - always test supine) - 0(No drift) 6b. Right Leg: Motor (5-second hold - always test supine) - 0(No drift) 7. Limb Ataxia (finger/nose \T\ heel/silver - test with eyes open) - 0(Absent) 8. Sensory Loss (pinprick arms/legs/face) - 0(Normal) 9. Best Language: Aphasia (description/naming/reading) - 0(No aphasia) Initials: bm8 NIH Stroke Scale - NIH Stroke Score Date: 06/04/2024 Time: 02:25 Total Score = 0 10. Dysarthria (speech clarity - read or repeat words) - 0(Normal) 11. Extinction and Inattention (visual/tactile/auditory/spatial/personal) - 0(No abnormality) 1a. Level of Consciousness (LOC) - 0(Alert) 1b. Level of Consciousness (LOC) (Month \T\ Age) - 0(Both) 1c. LOC Commands (Open \T\ Closes Eyes/Ed Case Manager) - 0(Both) 2. Best Gaze (Lateral Gaze Paresis) - 0(Normal) 3. Visual Field Loss - 0(No visual loss) 4. Facial Palsy - 0(Normal) 5a. Left Arm: Motor (10-second hold) - 0(No drift) 5b. Right Arm: Motor (10-second hold) - 0(No drift) 6a. Left Leg: Motor (5-second hold - always test supine) - 0(No drift) 6b. Right Leg: Motor (5-second hold - always test supine) - 0(No drift) 7. Limb Ataxia (finger/nose \T\ heel/silver - test with eyes open) - 0(Absent) 8. Sensory Loss (pinprick arms/legs/face) - 0(Normal) 9. Best Language: Aphasia (description/naming/reading) - 0(No aphasia) Initials: ec2 Signatures: Dispatcher [employer] EDTN Matthew Lake MD MD ec2 Yonathan Peña RN RN bm8 Corrections: (The following items were deleted from the chart) 01:48 01:48 Neck Angio+CT.RAD.BRZ ordered. [facility] EDTN 01:48 01:48 PROTIME (+INR)+COAG.LAB.BRZ ordered. [facility] EDTN 01:48 01:48 PTT, ACTIVATED+COAG.LAB.BRZ ordered. [facility] EDMS 04:48 01:48 ED course: Patient arrives today due to concern for numbness which is now ec2 resolved. Examination remarkable for no intact individuals otherwise in no acute distress with a reassuring examination. Obtain lab work and CT scan. Differential includes TIA, electrolyte disturbances, anemia. . ec2 04:48 01:48 Patient arrives today for right upper extremity numbness which is now ec2 resolved. Onset approximately 2 hours prior to arrival. Previous history of TIA, previous history of stroke. . ec2
[2024-06-04 05:14] VITALS: TEMP 97.9
[2024-06-04 05:18] VITALS: BP 139/76; O2SAT 97
--- NOTE | 2024-06-05 22:12 | RAD REPORT ---
EXAM DESCRIPTION: RAD - Chest Single View - 06/04/2024 2:04 am CLINICAL HISTORY: 8 years Male, Cough. COMPARISON: XR Chest 02/27/2024 (report only). IMPRESSION: No focal consolidation. No pleural effusion. No pneumothorax. Prior median sternotomy. Cardiomediastinal silhouette is within normal limits. No acute osseous abnormality. Electronically signed by: Yobani Franklin DO 06/04/2024 02:32 AM CDT RP 9 Due to temporary technical issues with the PACS/Fluency reporting system, reports are being signed by the in house radiologists without review as a courtesy to insure prompt reporting. The interpreting radiologist is fully responsible for the content of the report.
--- NOTE | 2024-06-05 22:16 | RAD REPORT ---
EXAM DESCRIPTION: CT - Head Brain Wo Cont - 06/04/2024 3:09 am CLINICAL HISTORY: The patient is 68 years old and is Male; numbness, resolved TECHNIQUE: Axial computed tomography images of the head/brain without intravenous contrast. Sagitt al and coronal reformatted images were created and reviewed. This CT exam was performed using one o r more of the following dose reduction techniques: automated exposure control, adjustment of the mA and/or kV according to patient size, and/or use of iterative reconstruction technique. COMPARISON: No relevant prior studies available. FINDINGS: Brain: Mild nonspecific white matter changes likely related to chronic microvascular isc hemic disease. No hemorrhage. Ventricles: Unremarkable. No ventriculomegaly. Bones/joints: Prior left frontoparietal craniotomy. No acute fracture. Soft tissues: Unremarkable. Sinuses: Unremarkable as visualized. Mastoid air cells: Unremarkable as visualized. No mastoid effusion. IMPRESSION: No acute intracranial abnormality. Electronically signed by: Forrest Flores MD 06/04/2024 04:18 AM CDT 8 Due to temporary technical issues with the PACS/Fluency reporting system, reports are being signed by the in house radiologists without review as a courtesy to insure prompt reporting. The interpreting radiologist is fully responsible for the content of the report.
--- NOTE | 2024-06-05 22:22 | RAD REPORT ---
EXAM DESCRIPTION: CT - Head angio - 06/04/2024 3:09 am CLINICAL HISTORY: The patient is 68 years old and is Male; NUMBNESS, RESOLVED TECHNIQUE: Axial computed tomographic angiography images of the head with intravenous contrast. Sa gittal and coronal reformatted images were created and reviewed. This CT exam was performed using o ne or more of the following dose reduction techniques: automated exposure control, adjustment of th e mA and/or kV according to patient size, and/or use of iterative reconstruction technique. MIP rec onstructed images were created and reviewed. COMPARISON: No relevant prior studies available. FINDINGS: Right internal carotid artery: No acute findings. Intracranial segment is patent with no significant stenosis. No aneurysm. Right anterior cerebral artery: Unremarkable. No occlusion or significant stenosis. No aneury sm. Right middle cerebral artery: Unremarkable. No occlusion or significant stenosis. No aneurysm . Right posterior cerebral artery: Unremarkable. No occlusion or significant stenosis. No aneur ysm. Right vertebral artery: Unremarkable as visualized. Left internal carotid artery: No acute findings. Intracranial segment is patent with no signifi cant stenosis. No aneurysm. Left anterior cerebral artery: Unremarkable. No occlusion or significant stenosis. No aneurys m. Left middle cerebral artery: Unremarkable. No occlusion or significant stenosis. No aneurysm. Left posterior cerebral artery: Unremarkable. No occlusion or significant stenosis. No aneury sm. Left vertebral artery: There is a short segment of severe narrowing of the left vertebral artery. Basilar artery: Unremarkable. No occlusion or significant stenosis. No aneurysm. IMPRESSION: There is a short segment of severe narrowing of the left vertebral artery. Electronically signed by: Forrest Flores MD 06/04/2024 04:34 AM CDT 8 Due to temporary technical issues with the PACS/Fluency reporting system, reports are being signed by the in house radiologists without review as a courtesy to insure prompt reporting. The interpreting radiologist is fully responsible for the content of the report.
--- NOTE | 2024-06-05 22:28 | RAD REPORT ---
EXAM DESCRIPTION: CT - Neck Angio - 06/04/2024 3:09 am CLINICAL HISTORY: The patient is 68 years old and is Male; numbness, resolved TECHNIQUE: Routine carotid CT angiography protocol was performed with intravenous contrast. NASCET criteria using the distal ICAs for comparison were used for evaluation of stenoses. Sagittal and c oronal reformatted images were created and reviewed. This CT exam was performed using one or more o f the following dose reduction techniques: automated exposure control, adjustment of the mA and/or kV according to patient size, and/or use of iterative reconstruction technique. MIP reconstructed i mages were created and reviewed. COMPARISON: None. FINDINGS: VASCULATURE: Right common carotid artery: Unremarkable. No occlusion or significant stenosis. No dissectio n. Right internal carotid artery: Unremarkable. Extracranial segment is patent with no occlusion o r significant stenosis. No dissection. Right external carotid artery: Unremarkable. No occlusion. Right vertebral artery: Unremarkable. No occlusion or significant stenosis. No dissection. Left common carotid artery: Unremarkable. No occlusion or significant stenosis. No dissection . Left internal carotid artery: Mild narrowing of the left ICA near its origin. No dissection. Left external carotid artery: Unremarkable. No occlusion. Left vertebral artery: Unremarkable. No occlusion or significant stenosis. No dissection. NECK: Bones/joints: Unremarkable. No acute fracture. Soft tissues: Unremarkable. Lung apices: Clear. CAROTID STENOSIS REFERENCE USING NASCET CRITERIA: % ICA stenosis = (1 - narrowest ICA diameter/diameter of distal cervical ICA) x 100. Mild - <50% stenosis. Moderate - 50-69% stenosis. Severe - 70-94% stenosis. Near occlusion - 95-99% stenosis. Occluded - 100% stenosis. IMPRESSION: No significant stenosis. No dissection or occlusion. Electronically signed by: Forrest Floers MD 06/04/2024 04:21 AM CDT RP 8 Due to temporary technical issues with the PACS/Fluency reporting system, reports are being signed by the in house radiologists without review as a courtesy to insure prompt reporting. The interpreting radiologist is fully responsible for the content of the report.
--- NOTE | 2024-06-06 13:52 | EKG ---
Test Date: 2024-06-04 Test Time: 02:01:19 [employer]: KYM MEASUREMENT RESULTS: Intervals: Rate: 87 UT: 204 QRSD: 142 QT: 386 QTc: 464 [place]: P: 76 UT: 204 QRS: -29 T: 78 INTERPRETIVE STATEMENTS: Normal sinus rhythm Right bundle branch block Abnormal ECG Compared to ECG 05/04/2024 12:24:32 No significant changes Electronically Signed On 06-06-24 13:46:47 CDT by Stone Choi
== END 2024-06-04 05:07 | disposition home or self-care (01) ==
LOC: ER 01:41
DX: R20.2 Paresthesia of skin (principal); M62.838 Other muscle spasm; Z86.73 Personal history of transient ischemic attack (TIA), and cerebral infarction without residual deficits; Z95.1 Presence of aortocoronary bypass graft; Z79.82 Long term (current) use of aspirin
CPT/HCPCS: 85025; 80048; 36415; 85610; 82947; 85730; 84484; 70450; 70496; 70498; 71045; 99285; Q9967; 93005

== ENCOUNTER 2024-07-01 00:41 | Emergency (ER) | payer OTHER ==
--- OUTSIDE RECORDS SUMMARY | 2024-07-01 00:47 | XMS REPORT | Continuity of Care Document ---
Author Name Unknown Address [address] [facility] [address] [place] [id number] [facility] Address [address] [facility] [address] [place] [address] Care Team Providers Care Freight Weigher Name Role Phone Janey IRBY, Iris Primary Care Physician + [phone] RON HOOVER Attending Clinician Unavailable ALLYSON FINK Attending Clinician Unavailable IRIS TOTH Attending Clinician Unavailab IRIS Hankins Attending Clinician Unavailab yannick Maier MD, Andi Attending Clinician [phone] Lasha Aguilar MD Attending Clinician [phone] Allyson Fink MD Attending Clinician [phone] LASHA AGUILAR Attending Clinician Unavail able LASHA AGUILAR Attending Clinician Unavail able Doctor Unassigned, [place] Attending Clinician U navailable Iris Toth MD Attending Clinician [phone] Pat Styles Attending Clinician + Krishan Macias MD Attending Clinician [phone] Gilberto Gasca MD Attending Clinician [phone], [facility] Attending Clinician Unavailable Pat Styles Attending Clinician [phone] Allyson Fink MD Attending Clinician [phone] Michelle Olmstead LCSW Attending Clinician PAT CHAIDEZ Attending Clinician Unavailable Pob, [facility] Main Attending Clinician Unavailabl e Doctor Unassigned, [place] Attending Clinician U navailable [place] Rosalva NAVARRO Attending Clinician [phone], [facility] Attending Clinician Unavailable Krishan Cowart MD Attending Clinician [phone] Lasha Aguilar MD Attending Clinician [phone] IDALIA HART Attending Clinician Unavailab yannick Medina RN, Deandra Barry Attending Clinician Unashweta Shah LMSW, Debbie Cook Attending Clinician RON Hale Admitting Clinician Unavailable Payers Payer Name Policy Type Policy Number Effective Date Expirati on Date Source FRIEDA MONTERO PLS O [id number] 2023 00:00:00 [employer] [id number] 2024 00:00:00 Problems Condition Name Condition Details Condition Category Status Onset Date Resolution Date Last Treatment Date Treating Clinician Comments Source Cerebrovas cular accident (CVA), unspecifie d mechanism Cerebrovas cular accident (CVA), unspecifie d mechanism Disease Active 05-26 00:00: 00 [facility] Black-out (not amnesia) Black-out (not amnesia) Disease Active 05-26 00:00: 00 [facility] Stenosis of carotid artery, unspecifie d laterality Stenosis of carotid artery, unspecifie d laterality Disease Active 05-26 00:00: 00 [facility] Dependent on walker for ambulation Dependent on walker for ambulation Disease Active 05-26 00:00: 00 [facility] Rash and nonspecifi c skin eruption Rash and nonspecifi c skin eruption Disease Active 05-26 00:00: 00 [facility] Multiple falls Multiple falls Disease Active 8- 00:00: 00 [facility] Carotid stenosis, bilateral Carotid stenosis, bilateral Disease Active 5-16 00:00: 00 [facility] Syncope and collapse Syncope and collapse Disease Active 5-09 00:00: 00 [facility] Type 2 diabetes mellitus, with long-term current use of insulin Type 2 diabetes mellitus, with long-term current use of insulin Disease Active 3-11 00:00: 00 [facility] Bilateral carotid artery stenosis Bilateral carotid artery stenosis Disease Active 3-04 00:00: 00 [facility] Hyperlipid emia, unspecifie d hyperlipid emia type Hyperlipid emia, unspecifie d hyperlipid emia type Disease Active 3-04 00:00: 00 [facility] Essential hypertensi on Essential hypertensi on Disease Active 3- 00:00: 00 [facility] Coronary artery disease without angina pectoris, unspecifie d vessel or lesion type, unspecifie d whether wainwright or transplant ed heart Coronary artery disease without angina pectoris, unspecifie d vessel or lesion type, unspecifie d whether [place] or transplant ed heart Disease Active 3-04 00:00: 00 [facility] At risk for falls At risk for falls Disease Active 2- 00:00: 00 [facility] Unspecifie d abnormalit ies of gait and mobility Unspecifie d abnormalit ies of gait and mobility Disease Active 2- 00:00: 00 [facility] HFrEF (heart failure with reduced ejection fraction) HFrEF (heart failure with reduced ejection fraction) Disease Resolve d 3-04 00:00: 00 2024-06-13 00:00:00 2024-06-13 11:23:48 [facility] Allergies, Adverse Reactions, Alerts Allergy Name Allergy Type Status Severity Reaction(s) Onset Date Inactive Date Treating Clinician Comments Source MORPHINE DRUG INGREDI Active Unknown-Cmnt 2- 00:00: 00 [facility] EMPAGLIF LOZIN DRUG INGREDI Active Unknown-Cmnt 2- 00:00: 00 [facility] Empaglif lozin Propensi ty to adverse reaction s Active Unknown - See comments 11-27 00:00: 00 [facility] Morphine Propensi ty to adverse reaction s Active Unknown - See comments 11-27 00:00: 00 [facility] NO KNOWN ALLERGIE S Drug Class Active [facility] Social History Social Habit Start Date Stop Date Quantity Comments Source History of tobacco use Cigarette Smoker [facility] Alcoholic beverage intake 2024-06-17 00:00:00 2024-06-17 00:00:00 Lifetime non-drinker (finding) [facility] History of Social function 2024-05-26 00:00:00 2024-05-26 00:00:00 [facility] Alcohol intake 2023-12-29 00:00:00 2023-12-29 00:00:00 Lifetime non-drinker (finding) [facility] Tobacco use and exposure 2023-11-27 00:00:00 2023-11-27 00:00:00 Smokeless tobacco non-user [facility] Sex assigned at 1955 00:00:00 1955 00:00:00 [facility] Smoking Status Start Date Stop Date Source Tobacco smoking consumption unknown [facility] Ex-smoker 2023-11-27 00:00:00 2023-11-27 00:00:00 [facility] Medications Ordered Medication Name Filled Medication Name Start Date Stop Date Current Medication? Ordering Clinician Indication Dosage Frequency Signature (SIG) Comments Components Source metoprolol succinate XL 25 mg 24 hr tablet 06-20 00:00: 00 Yes [id number] 25mg Take 1 tablet by mouth in the morning. [facility] pioglitazon e (ACTOS) 30 mg tablet 06-13 00:00: 00 Yes [id number] 30mg Take 1 tablet by mouth in the morning. [facility] glipiZIDE XL 5 mg 24 hr tablet 06-09 00:00: 00 Yes [id number] 5mg Take 1 tablet by mouth daily with breakfast. [facility] BD ULTRAFINE III MINI PEN 31 gauge x 3/16" Ndle 06-06 00:00: 00 Yes USE DIRECTED 4 TIMES A DAY [facility] dulaglutide (TRULICITY) 1.5 mg/0.5 mL PnIj 06-06 00:00: 00 Yes [id number] INJECT 1 PEN SUBCUTANEO USLY WEEKLY [facility] triamcinolo ne acetonide 0.1 % cream 06-02 00:00: 00 Yes [id number] Apply to area(s) 2 (two) times daily. [facility] metoprolol succinate XL 25 mg 24 hr tablet 05-30 00:00: 00 06-20 00:00 :00 No [id number] 25mg Take 1 tablet by mouth in the morning. [facility] Insulin Glargine (LANTUS SOLOSTAR U-100 INSULIN) 100 unit/mL (3 mL) injection 05-26 00:00: 00 Yes [id number] Taking 28-30 U daily [facility] rosuvastati n (CRESTOR) 5 mg tablet 05-26 00:00: 00 Yes [id number] 5mg Take 1 tablet by mouth in the morning. [facility] METFORMIN 500 mg tablet 05-23 00:00: 00 Yes [id number] TAKE 1 TABLET BY MOUTH IN THE MORNING AND IN THE EVENING WITH MEALS [facility] dulaglutide (TRULICITY) 1.5 mg/0.5 mL PnIj 04-14 00:00: 00 06-06 00:00 :00 No [id number] 1.5mg inject 1 Pen under the skin weekly. [facility] rosuvastati n (CRESTOR) 20 mg tablet 10 00:00: 00 05-26 00:00 :00 No [id number] 20mg Take 1 tablet by mouth in the morning. [facility] aspirin 81 mg chewable tablet 604 14:01: 42 Yes 81mg Take 1 tablet by mouth in the morning. [facility] ubidecareno ne (CO Q-10 ORAL) 03-24 12:31: 01 Yes Take by mouth. [facility] Magnesium Oxide 500 mg Cap 03-24 12:31: 01 Yes Take by mouth. [facility] aspirin 81 mg chewable tablet 03-24 12:31: 01 Yes 81mg Take 1 tablet by mouth in the morning. [facility] HYDROcodone -acetaminop hen 5-325 mg tablet 03-24 00:00: 00 04-01 04:59 :00 No [id number] 1{tbl} Take 1 tablet by mouth every 6 (six) hours as needed for Pain (scale 4-6) or Pain (scale 7-10) for up to 7 days. Indication s: acute pain [facility] Sliding Scale Insulin - Lispro (HumaLOG) 03-23 17:00: 00 Yes Subcutaneo us, TID MEALS+HS, First dose (after last modificati on) on Thu03/23/24 at 1200, Until Discontinu ed, Routine [facility] sennosides- docusate sodium (SENOKOT-S) 8.6-50 mg per tablet 1 tablet 03-23 14:00: 00 Yes 1{tbl} 1 tablet, Oral, DAILY, First dose on Thu03/23/24 at 0900, Until Discontinu ed, Routine [facility] pantoprazol e (PROTONIX) EC tablet 40 mg 03-23 14:00: 00 Yes 40mg 40 mg, Oral, DAILY, First dose on Thu03/23/24 at 0900, Until Discontinu ed, Routine, Indication for use: None of the above [facility] metoprolol succinate XL (TOPROL XL) tablet 25 mg 03-23 14:00: 00 Yes 25mg [facility] aspirin chewable tablet 81 mg 03-23 14:00: 00 Yes 81mg 81 mg, Oral, DAILY, First dose on Thu03/23/24 at 0900, Until Discontinu ed, Routine [facility] insulin glargine (LANTUS U-100) injection 30 Units 03-23 12:30: 00 Yes 30U 30 Units, Subcutaneo us, DAILY, First dose on Thu03/23/24 at 0730, Until Discontinu ed, Routine [facility] magnesium sulfate in water 2 gram/50 mL (4 %) infusion 2 g 03-23 10:45: 00 03-23 11:40 :00 No 2g 2 g, IV Piggyback, Administer over 60 Minutes, ONCE, 1 dose, On Thu03/23/24 at 0545, Routine [facility] NORepinephr ine (LEVOPHED) 4 mg/250 mL in [...] intravenou s vasopresso r at a time. [facility] albumin (ALBUTEIN 5 %) 5 % injection 12.5 g 03-23 03:30: 00 03-23 03:43 :00 No 12.5g 12.5 g, IV Infusion, ONCE, 1 dose, On Thu03/22/24 at 2230, 250 mL, Indication : SHOCK/IMPE NDING SHOCK [facility] Sliding Scale Insulin - Lispro (HumaLOG) 03-23 03:15: 00 03-23 13:05 :34 No Subcutaneo us, TID MEALS+HS, First dose (after last modificati on) on Thu03/22/24 at 2215, Until Discontinu ed, Routine [facility] rosuvastati n (CRESTOR) tablet 10 mg 03-23 02:00: 00 Yes 10mg 10 mg, Oral, QHS, First dose on Thu03/22/24 at 2100, Until Discontinu ed, Routine [facility] heparin (porcine) injection 5,000 Units 03-22 19:00: 00 Yes 5000U 5,000 Units, Subcutaneo us, Q8H, First dose on Thu03/22/24 at 1400, Until Discontinu ed, Routine [facility] insulin glargine (LANTUS U-100) injection 30 Units 03-22 18:52: 00 03-22 20:49 :00 No 30U 30 Units, Subcutaneo us, ONCE, 1 dose, On Thu03/22/24 at 1400, Routine [facility] magnesium sulfate in water 2 gram/50 mL (4 %) infusion 2 g 03-22 18:45: 00 03-22 19:36 :00 No 2g 2 g, IV Piggyback, Administer over 60 Minutes, ONCE, 1 dose, On Thu03/22/24 at 1345, Routine [facility] Sliding Scale Insulin - Lispro (HumaLOG) 03-22 17:00: 00 03-23 02:43 :52 No Subcutaneo us, TID MEALS+HS, First dose on Thu03/22/24 at 1200, Until Discontinu ed, Routine [facility] acetaminoph en (TYLENOL) tablet 1,000 mg 03-22 16:49: 59 Yes 1000mg 1,000 mg, Oral, Q8HPRN, Starting on Thu03/22/24 at 1149, Until Discontinu ed, Routine, Pain (scale 1-3) [facility] HYDROcodone -acetaminop hen (NORCO) 10-325 mg tablet 1 tablet 03-22 16:49: 34 Yes 1{tbl} 1 tablet, Oral, Q6HPRN, Starting on Thu03/22/24 at 1149, Until Discontinu ed, Routine, Pain (scale 7-10) [facility] HYDROcodone -acetaminop hen (NORCO 5) 5-325 mg tablet 1 tablet 03-22 16:48: 44 Yes 1{tbl} 1 tablet, Oral, Q6HPRN, Starting on Thu03/22/24 at 1148, Until Discontinu ed, Routine, Pain (scale 4-6) [facility] glucagon (GLUCAGEN DIAGNOSTIC KIT) injection 1 mg 03-22 16:19: 35 Yes 1mg [facility] dextrose 50 % in water (D50W) injection 25 mL 03-22 16:19: 34 Yes 25mL [facility] ondansetron (ZOFRAN (PF)) injection 4 mg 03-22 16:18: 41 Yes 4mg [facility] bupivacaine (preserv free) (SENSORCAIN E MPF) 0.25 % (2.5 mg/mL) injection 03-22 15:41: 00 03-22 16:34 :55 No PRN, Starting on Thu03/22/24 at 1041, Until Thu03/22/24 at 1134, Routine, Intra-op [facility] heparin 1,000 unit/mL injection 03-22 13:50: 00 03-22 16:34 :55 No PRN, Starting on Thu03/22/24 at 0850, Until Thu03/22/24 at 1134, Routine, Intra-op [facility] metoprolol succinate XL 25 mg 24 hr tablet 03-03 00:00: 00 05-30 00:00 :00 No [id number] 25mg Take 1 tablet by mouth in the morning. [facility] carvediloL (COREG) 12.5 mg tablet 01-28 00:00: 00 03-03 00:00 :00 No [id number] 12.5mg Take 1 tablet by mouth in the morning and 1 tablet in the evening. Take with meals. [facility] flash glucose sensor (FREESTYLE SARAH 2 SENSOR) Kit 01-03 00:00: 00 Yes 1{kit} 1 Kit every 2 (two) weeks. [facility] dulaglutide (TRULICITY) 1.5 mg/0.5 mL PnIj 01-03 00:00: 00 04-14 00:00 :00 No [id number] 1.5mg inject 1 Pen under the skin weekly. [facility] ubidecareno ne (CO Q-10 ORAL) 15:03: 08 Yes Take by mouth. [facility] Magnesium Oxide 500 mg Cap 15:03: 08 Yes Take by mouth. [facility] aspirin 81 mg chewable tablet 15:01: 19 Yes 81mg Take 1 tablet by mouth in the morning. [facility] carvediloL (COREG) 12.5 mg tablet 15:01: 19 Yes 12.5mg Take 1 tablet by mouth in the morning and 1 tablet in the evening. Take with meals. [facility] losartan 25 mg tablet 12-11 12:23: 41 12-11 00:00 :00 No 25mg Take 1 tablet by mouth in the morning. [facility] aspirin 81 mg chewable tablet 12-11 12:23: 11 Yes 81mg Take 1 tablet by mouth in the morning. [facility] carvediloL (COREG) 12.5 mg tablet 12-11 12:23: 11 Yes 12.5mg Take 1 tablet by mouth in the morning and 1 tablet in the evening. Take with meals. [facility] Blood-Gluco se Sensor (FREESTYLE SARAH 3 SENSOR) Nasreen 12-11 00:00: 00 Yes [id number] Use as directed [facility] BD ULTRAFINE III MINI PEN 31 gauge x 3/16" Ndle 12-11 00:00: 00 06-06 00:00 :00 No USE DIRECTED 4 TIMES A DAY [facility] losartan 25 mg tablet 12-11 00:00: 00 04-04 00:00 :00 No [id number] 25mg Take 1 tablet by mouth in the morning. [facility] rosuvastati n (CRESTOR) 10 mg tablet 12-11 00:00: 00 04-04 00:00 :00 No [id number] 10mg Take 1 tablet by mouth at bedtime. [facility] dulaglutide (TRULICITY) 1.5 mg/0.5 mL PnIj 12-11 00:00: 00 01-03 00:00 :00 No [id number] 1.5mg inject 1 Pen under the skin weekly for 90 days. [facility] metFORMIN 500 mg tablet 11-27 15:49: 42 11-27 00:00 :00 No 500mg Take 1 tablet by mouth in the morning and 1 tablet in the evening. Take with meals. [facility] Insulin Glargine (LANTUS SOLOSTAR U-100 INSULIN) 100 unit/mL (3 mL) injection 11-27 15:49: 42 11-27 00:00 :00 No 20U inject 20 Units under the skin in the morning. [facility] insulin aspart U-100 (NOVOLOG FLEXPEN U-100 INSULIN) 100 unit/mL (3 mL) injection 11-27 15:49: 42 11-27 00:00 :00 No 10U inject 10 Units under the skin in the morning and 10 Units at noon and 10 Units in the evening. inject before meals. Inject 5 to 10 units three times a day with meals [facility] aspirin 81 mg chewable tablet 11-27 15:47: 56 Yes 81mg Take 1 tablet by mouth in the morning. [facility] losartan 25 mg tablet 11-27 15:47: 56 Yes 25mg Take 1 tablet by mouth in the morning. [facility] carvediloL (COREG) 12.5 mg tablet 11-27 15:47: 56 Yes 12.5mg Take 1 tablet by mouth in the morning and 1 tablet in the evening. Take with meals. [facility] carvedilol 1.25 mg/mL oral suspension 11-27 15:45: 05 11-27 00:00 :00 No 12.5mg Take 10 mL by mouth in the morning and 10 mL in the evening. Take with meals. 1 tab by mouth twice a day [facility] insulin aspart U-100 (NOVOLOG FLEXPEN U-100 INSULIN) 100 unit/mL (3 mL) injection 11-27 00:00: 00 Yes [id number] 10U inject 10 Units under the skin in the morning and 10 Units at noon and 10 Units in the evening. inject before meals. Inject 5 to 10 units three times a day with meals [facility] Insulin Glargine (LANTUS SOLOSTAR U-100 INSULIN) 100 unit/mL (3 mL) injection 11-27 00:00: 00 Yes [id number] 20U inject 20 Units under the skin in the morning. [facility] metFORMIN 500 mg tablet 11-27 00:00: 00 Yes [id number] 500mg Take 1 tablet by mouth in the morning and 1 tablet in the evening. Take with meals. [facility] Insulin Glargine (LANTUS SOLOSTAR U-100 INSULIN) 100 unit/mL (3 mL) injection 11-27 00:00: 00 05-26 00:00 :00 No [id number] 20U inject 20 Units under the skin in the morning. [facility] Vital Signs Vital Name Observation Time Observation Value Comments S suraj Systolic blood pressure 2024-06-17 20:24:00 129 mm[Hg] [facility] Diastolic blood pressure 2024-06-17 20:24:00 79 mm[Hg] [facility] Heart rate 2024-06-17 20:24:00 81 /min [facility] Body height 2024-06-17 20:24:00 182.9 cm [facility] Body weight 2024-06-17 20:24:00 71.986 kg [facility] BMI 2024-06-17 20:24:00 21.52 kg/m2 [facility] Oxygen saturation in Arterial blood by Pulse oximetry 2024-06-17 20:24:00 98 /min [facility] Systolic blood pressure 2024-06-13 15:52:00 128 mm[Hg] [facility] Diastolic blood pressure 2024-06-13 15:52:00 80 mm[Hg] [facility] Heart rate 2024-06-13 15:52:00 78 /min [facility] Oxygen saturation in Arterial blood by Pulse oximetry 2024-06-13 15:52:00 98 /min [facility] Body temperature 2024-06-13 15:50:00 36.44 Mera [facility] Respiratory rate 2024-06-13 15:50:00 20 /min [facility] Body height 2024-06-13 15:50:00 182.9 cm [facility] Body weight 2024-06-13 15:50:00 72.207 kg [facility] BMI 2024-06-13 15:50:00 21.59 kg/m2 [facility] Body height 2024-06-02 19:31:00 182.9 cm [facility] Body weight 2024-06-02 19:31:00 72.122 kg [facility] BMI 2024-06-02 19:31:00 21.56 kg/m2 [facility] Systolic blood pressure 2024-05-26 18:08:00 124 mm[Hg] [facility] Diastolic blood pressure 2024-05-26 18:08:00 80 mm[Hg] [facility] Heart rate 2024-05-26 18:08:00 92 /min [facility] Body temperature 2024-05-26 18:08:00 36.78 Mera [facility] Respiratory rate 2024-05-26 18:08:00 18 /min [facility] Body height 2024-05-26 18:08:00 182.9 cm [facility] Body weight 2024-05-26 18:08:00 71.759 kg [facility] BMI 2024-05-26 18:08:00 21.46 kg/m2 [facility] Oxygen saturation in Arterial blood by Pulse oximetry 2024-05-26 18:08:00 96 /min [facility] Systolic blood pressure 2024-05-26 19:28:00 124 mm[Hg] [facility] Diastolic blood pressure 2024-05-26 19:28:00 80 mm[Hg] [facility] Heart rate 2024-05-26 19:28:00 92 /min [facility] Body temperature 2024-05-26 19:28:00 36.78 Mera [facility] Respiratory rate 2024-05-26 19:28:00 18 /min [facility] Body height 2024-05-26 19:28:00 182.9 cm [facility] Body weight 2024-05-26 19:28:00 71.804 kg [facility] BMI 2024-05-26 19:28:00 21.47 kg/m2 [facility] Oxygen saturation in Arterial blood by Pulse oximetry 2024-05-26 19:28:00 98 /min [facility] Systolic blood pressure 2024-04-14 20:11:00 139 mm[Hg] [facility] Diastolic blood pressure 2024-04-14 20:11:00 79 mm[Hg] [facility] Heart rate 2024-04-14 20:11:00 85 /min [facility] Body temperature 2024-04-14 20:11:00 36.78 Mera [facility] Respiratory rate 2024-04-14 20:11:00 20 /min [facility] Body height 2024-04-14 20:11:00 182.9 cm [facility] Body weight 2024-04-14 20:11:00 72.576 kg [facility] BMI 2024-04-14 20:11:00 21.70 kg/m2 [facility] Oxygen saturation in Arterial blood by Pulse oximetry 2024-04-14 20:11:00 97 /min [facility] Systolic blood pressure 2024-04-04 18:40:00 122 mm[Hg] his personal machine [facility] Diastolic blood pressure 2024-04-04 18:40:00 64 mm[Hg] his personal machine [facility] Heart rate 2024-04-04 18:40:00 87 /min [facility] Respiratory rate 2024-04-04 18:38:00 16 /min [facility] Body height 2024-04-04 18:38:00 182.9 cm [facility] Body weight 2024-04-04 18:38:00 70.081 kg [facility] BMI 2024-04-04 18:38:00 20.95 kg/m2 [facility] Oxygen saturation in Arterial blood by Pulse oximetry 2024-04-04 18:38:00 96 /min [facility] Systolic blood pressure 2024-03-29 18:53:00 121 mm[Hg] [facility] Diastolic blood pressure 2024-03-29 18:53:00 74 mm[Hg] [facility] Heart rate 2024-03-29 18:53:00 82 /min [facility] Body temperature 2024-03-29 18:53:00 36.72 Mera [facility] Respiratory rate 2024-03-29 18:53:00 15 /min [facility] Body weight 2024-03-29 18:53:00 72.349 kg [facility] BMI 2024-03-29 18:53:00 21.63 kg/m2 [facility] Oxygen saturation in Arterial blood by Pulse oximetry 2024-03-29 18:53:00 97 /min [facility] Systolic blood pressure 2024-03-24 16:12:00 125 mm[Hg] [facility] Diastolic blood pressure 2024-03-24 16:12:00 69 mm[Hg] [facility] Heart rate 2024-03-24 16:12:00 71 /min [facility] Body temperature 2024-03-24 16:12:00 36.28 Mera [facility] Respiratory rate 2024-03-24 16:12:00 18 /min [facility] Oxygen saturation in Arterial blood by Pulse oximetry 2024-03-24 16:12:00 96 /min [facility] Body weight 2024-03-24 08:43:00 73.426 kg [facility] BMI 2024-03-24 08:43:00 21.95 kg/m2 [facility] Body height 2024-03-22 10:28:00 182.9 cm [facility] Systolic blood pressure 2024-03-22 16:45:00 105 mm[Hg] [facility] Diastolic blood pressure 2024-03-22 16:45:00 56 mm[Hg] [facility] Heart rate 2024-03-22 16:45:00 88 /min [facility] Body temperature 2024-03-22 16:45:00 37.11 Mera [facility] Respiratory rate 2024-03-22 16:45:00 13 /min [facility] Oxygen saturation in Arterial blood by Pulse oximetry 2024-03-22 16:45:00 96 /min [facility] Body height 2024-03-22 10:28:00 182.9 cm [facility] Body weight 2024-03-22 10:28:00 72.7 kg [facility] BMI 2024-03-22 10:28:00 21.74 kg/m2 [facility] Systolic blood pressure 2024-03-10 19:51:00 129 mm[Hg] [facility] Diastolic blood pressure 2024-03-10 19:51:00 74 mm[Hg] [facility] Heart rate 2024-03-10 19:51:00 91 /min [facility] Body temperature 2024-03-10 19:49:00 36.78 Mera [facility] Respiratory rate 2024-03-10 19:49:00 20 /min [facility] Body height 2024-03-10 19:49:00 182.9 cm [facility] Body weight 2024-03-10 19:49:00 73.029 kg [facility] BMI 2024-03-10 19:49:00 21.84 kg/m2 [facility] Oxygen saturation in Arterial blood by Pulse oximetry 2024-03-10 19:49:00 97 /min [facility] Systolic blood pressure 2024-03-03 17:08:00 146 mm[Hg] [facility] Diastolic blood pressure 2024-03-03 17:08:00 82 mm[Hg] [facility] Heart rate 2024-03-03 17:07:00 75 /min [facility] Body temperature 2024-03-03 17:07:00 36.39 Mera [facility] Respiratory rate 2024-03-03 17:07:00 18 /min [facility] Body height 2024-03-03 17:07:00 182.9 cm [facility] Body weight 2024-03-03 17:07:00 73.936 kg [facility] BMI 2024-03-03 17:07:00 22.11 kg/m2 [facility] Oxygen saturation in Arterial blood by Pulse oximetry 2024-03-03 17:07:00 98 /min [facility] Systolic blood pressure 2024-03-03 13:42:00 134 mm[Hg] [facility] Diastolic blood pressure 2024-03-03 13:42:00 81 mm[Hg] [facility] Heart rate 2024-03-03 13:42:00 77 /min [facility] Respiratory rate 2024-03-03 13:42:00 18 /min [facility] Body height 2024-03-03 13:42:00 182.9 cm [facility] Body weight 2024-03-03 13:42:00 72.848 kg [facility] BMI 2024-03-03 13:42:00 21.78 kg/m2 [facility] Oxygen saturation in Arterial blood by Pulse oximetry 2024-03-03 13:42:00 98 /min [facility] Systolic blood pressure 2024-03-03 06:38:00 135 mm[Hg] [facility] Diastolic blood pressure 2024-03-03 06:38:00 75 mm[Hg] [facility] Heart rate 2024-03-03 06:38:00 77 /min [facility] Body temperature 2024-03-03 06:38:00 35.78 Mera [facility] Respiratory rate 2024-03-03 06:38:00 26 /min [facility] Oxygen saturation in Arterial blood by Pulse oximetry 2024-03-03 06:38:00 97 /min [facility] Body height 2024-03-03 04:21:00 182.9 cm [facility] Body weight 2024-03-03 04:21:00 73.936 kg [facility] BMI 2024-03-03 04:21:00 22.11 kg/m2 [facility] Systolic blood pressure 2024-02-25 17:44:00 130 mm[Hg] [facility] Diastolic blood pressure 2024-02-25 17:44:00 82 mm[Hg] [facility] Heart rate 2024-02-25 17:44:00 83 /min [facility] Body temperature 2024-02-25 17:44:00 36.61 Mera [facility] Respiratory rate 2024-02-25 17:44:00 18 /min [facility] Body height 2024-02-25 17:44:00 182.9 cm [facility] Body weight 2024-02-25 17:44:00 73.483 kg [facility] BMI 2024-02-25 17:44:00 21.97 kg/m2 [facility] Oxygen saturation in Arterial blood by Pulse oximetry 2024-02-25 17:44:00 97 /min [facility] Systolic blood pressure 2023-12-29 18:10:00 142 mm[Hg] [facility] Diastolic blood pressure 2023-12-29 18:10:00 72 mm[Hg] [facility] Heart rate 2023-12-29 18:10:00 65 /min [facility] Respiratory rate 2023-12-29 18:10:00 19 /min [facility] Body height 2023-12-29 18:10:00 182.9 cm [facility] Body weight 2023-12-29 18:10:00 77.61 kg [facility] BMI 2023-12-29 18:10:00 23.21 kg/m2 [facility] Oxygen saturation in Arterial blood by Pulse oximetry 2023-12-29 18:10:00 98 /min [facility] Systolic blood pressure 2023-12-28 15:14:00 135 mm[Hg] [facility] Diastolic blood pressure 2023-12-28 15:14:00 74 mm[Hg] [facility] Heart rate 2023-12-28 15:14:00 65 /min [facility] Body temperature 2023-12-28 15:14:00 36.39 Mera [facility] Respiratory rate 2023-12-28 15:14:00 18 /min [facility] Body height 2023-12-28 15:14:00 182.9 cm [facility] Body weight 2023-12-28 15:14:00 74.753 kg [facility] BMI 2023-12-28 15:14:00 22.35 kg/m2 [facility] Oxygen saturation in Arterial blood by Pulse oximetry 2023-12-28 15:14:00 98 /min [facility] Systolic blood pressure 2023-12-24 20:59:00 136 mm[Hg] [facility] Diastolic blood pressure 2023-12-24 20:59:00 71 mm[Hg] [facility] Heart rate 2023-12-24 20:59:00 70 /min [facility] Body temperature 2023-12-24 20:59:00 36.61 Mera [facility] Respiratory rate 2023-12-24 20:59:00 20 /min [facility] Body height 2023-12-24 20:59:00 182.9 cm [facility] Body weight 2023-12-24 20:59:00 76.204 kg [facility] BMI 2023-12-24 20:59:00 22.78 kg/m2 [facility] Oxygen saturation in Arterial blood by Pulse oximetry 2023-12-24 20:59:00 98 /min [facility] Systolic blood pressure 2023-12-11 18:16:00 141 mm[Hg] [facility] Diastolic blood pressure 2023-12-11 18:16:00 82 mm[Hg] [facility] Heart rate 2023-12-11 18:16:00 72 /min [facility] Body temperature 2023-12-11 18:16:00 36.33 Mera [facility] Body height 2023-12-11 18:16:00 182.9 cm [facility] Body weight 2023-12-11 18:16:00 75.297 kg [facility] BMI 2023-12-11 18:16:00 22.51 kg/m2 [facility] Oxygen saturation in Arterial blood by Pulse oximetry 2023-12-11 18:16:00 98 /min [facility] Systolic blood pressure 2023-11-27 21:36:00 136 mm[Hg] [facility] Diastolic blood pressure 2023-11-27 21:36:00 80 mm[Hg] [facility] Heart rate 2023-11-27 21:36:00 72 /min [facility] Body temperature 2023-11-27 21:36:00 36.61 Mera [facility] Respiratory rate 2023-11-27 21:36:00 17 /min [facility] Body height 2023-11-27 21:36:00 182.9 cm [facility] Body weight 2023-11-27 21:36:00 75.388 kg [facility] BMI 2023-11-27 21:36:00 22.54 kg/m2 [facility] Oxygen saturation in Arterial blood by Pulse oximetry 2023-11-27 21:36:00 98 /min [facility] Procedures Procedure Date / Time Performed Performing Clinician Source US ABDOMINAL AORTA SCREEN AAA 2024-06-02 15:12:33 [facility] FREE T4 2024-05-31 16:39:00 Iris Toth Un [facility] THYROID STIMULATING HORMONE 2024-05-31 16:39:00 [facility] MICRO[facility]BUMIN URINE 2024-05-31 16:39:00 Julian Toth [facility] COMP. METABOLIC PANEL (98207) 2024-05-31 16:39:00 [facility] LIPID PANEL (52481)(TOTAL CHOLESTEROL, TRIGLYCERIDES, HDL) 2024-05-31 16:39:00 [facility] CBC WITH DIFF 2024-05-31 16:39:00 [facility] GLYCOS[facility]EMOGLOBIN (A1C) 2024-05-31 16:39:00 JoshuaDorene, Iris [facility] FREE T3 2024-05-31 16:39:00 [facility] - BY VASCULAR LAB 2024-05-24 18:21:09 Ron Hoover [facility] POCT GLUCOSE (AUTOMATED) 2024-03-24 13:41:00 Sneha [facility] PHOSPHORUS 2024-03-24 09:31:00 Ed Hadley [facility] POCT GLUCOSE (AUTOMATED) 2024-03-23 21:55:00 Sneha [facility] POCT GLUCOSE (AUTOMATED) 2024-03-23 20:49:00 Sneha, [facility] POCT GLUCOSE (AUTOMATED) 2024-03-23 16:48:00 Sneha, [facility] POCT GLUCOSE (AUTOMATED) 2024-03-23 16:48:00 Sneha, [facility] POCT GLUCOSE (AUTOMATED) 2024-03-23 12:34:00 Sneha, [facility] POCT GLUCOSE (AUTOMATED) 2024-03-23 12:34:00 Sneha, [facility] PHOSPHORUS 2024-03-23 07:57:00 Ed Hadley [facility] MAGNESIUM 2024-03-23 07:57:00 Ed Hadley [facility] IONIZED CALCIUM 2024-03-23 07:57:[address] [facility] BASIC METABOLIC PANEL (NA, K, CL, CO2, GLUCOSE, BUN, CREATININE, CA) 2024-03-23 07:57:00 Ed Hadley [facility] CBC WITH DIFF 2024-03-23 07:57:00 Ed Hadley [facility] PHOSPHORUS 2024-03-23 07:57:00 Ed Hadley [facility] MAGNESIUM 2024-03-23 07:57:00 Ed Hadley [facility] IONIZED CALCIUM 2024-03-23 07:57:[address] [facility] BASIC METABOLIC PANEL (NA, K, CL, CO2, GLUCOSE, BUN, CREATININE, CA) 2024-03-23 07:57:00 Ed Hadley [facility] CBC WITH DIFF 2024-03-23 07:57:00 Ed Hadley [facility] POCT GLUCOSE (AUTOMATED) 2024-03-23 02:15:00 Sneha, [facility] POCT GLUCOSE (AUTOMATED) 2024-03-23 02:15:00 Sneha, [facility] POCT GLUCOSE (AUTOMATED) 2024-03-22 22:22:00 Sneha, [facility] POCT GLUCOSE (AUTOMATED) 2024-03-22 22:22:00 Sneha, [facility] POCT GLUCOSE (AUTOMATED) 2024-03-22 18:10:00 Sneha, [facility] POCT GLUCOSE (AUTOMATED) 2024-03-22 18:10:00 Sneha [facility] PHOSPHORUS 2024-03-22 16:30:00 Jerel Sandy [facility] MAGNESIUM 2024-03-22 16:30:00 Jerel Sandy [facility] BASIC METABOLIC PANEL (NA, K, CL, CO2, GLUCOSE, BUN, CREATININE, CA) 2024-03-22 16:30:00 Jomar [facility] CBC WITH DIFF 2024-03-22 16:30:00 Jomar Ed [facility] MRSA / MSSA SCREEN BY PCRKIT 2024-03-22 16:30:00 Ed Hadley [facility] PHOSPHORUS 2024-03-22 16:30:00 Jerel Sandy [facility] MAGNESIUM 2024-03-22 16:30:00 Jerel Sandy [facility] BASIC METABOLIC PANEL (NA, K, CL, CO2, GLUCOSE, BUN, CREATININE, CA) 2024-03-22 16:30:00 Jomar [facility] CBC WITH DIFF 2024-03-22 16:30:00 Jomar Ed [facility] MRSA / MSSA SCREEN BY PCRKIT 2024-03-22 16:30:00 Ed Hadley [facility] POCT GLUCOSE (AUTOMATED) 2024-03-22 16:28:00 Christi Hoover [facility] POCT GLUCOSE (AUTOMATED) 2024-03-22 16:28:00 Christi Hoover [facility] CAROTID ENDARTERECTOMY 2024-03-22 12:05:00 Ernesto Hoover [facility] CAROTID ENDARTERECTOMY 2024-03-22 12:05:00 Ernesto Hoover [facility] ABORH CONFIRMATION (LAB ONLY) 2024-03-22 10:59:00 Monica Owens [facility] ABORH CONFIRMATION (LAB ONLY) 2024-03-22 10:59:00 Graciela [facility] POCT GLUCOSE(AGE >30DAYS) 2024-03-22 10:49:00 [facility] PO[facility] GLUCOSE(AGE >30DAYS) 2024-03-22 10:49:00 Monica Owens [facility] POCT GLUCOSE (AUTOMATED) 2024-03-22 10:48:00 [facility] 2024-03-22 10:48:00 Christi [facility] HB ABO GROUPING 2024-03-19 15:46:00 Ron Hoover [facility] EKG-12 LEAD 2024-03-03 06:28:35 Rosalva Finch [facility] POCT GLUCOSE (AUTOMATED) 2024-03-03 06:01:00 Gladis Finch [facility] CT HEAD WO CONTRAST 2024-03-03 05:06:59 Gee Finch [facility] TROPONIN I 2024-03-03 04:41:00 Rosalva Finch [facility] BASIC METABOLIC PANEL (NA, K, CL, CO2, GLUCOSE, BUN, CREATININE, CA) 2024-03-03 04:41:00 Rosalva Finch [facility] CBC WITH DIFF 2024-03-03 04:41:00 Rosalva Finch [facility] POCT GLUCOSE (AUTOMATED) 2024-03-03 04:15:00 Gladis Finch [facility] EXTERNAL PROVIDER RECORDS 2024-01-12 05:01:00 Do ctor Unassigned, [place] [facility] AUTHORIZATION TO RELEASE PHI TO [facility] 2023-12-29 06:01:00 Doctor Unassigned, [place] [facility] HB ECG ROUTINE & RHYTHM STRIP 2023-12-28 15:18:11 Allyson Fink [facility] DME/SUPPLY JUSTIFICATION 2023-12-07 06:01:00 Doc tor Unassigned, [place] [facility] ASSIGNMENT OF BENEFITS 2023-11-27 21:19:25 Docto r Unassigned, [place] [facility] Encounters Start Date/Time End Date/Time Encounter Type Admission Type Attending [facility] Facility Care Department Encounter ID Source 2024-08-30 13:20:00 2024-08-30 13:20:00 Outpatient R OBI-DORENE , IRIS OBI-DORENE , IRIS [facility] [id number] [facility] 2024-06-29 00:00:00 2024-06-29 09:18:40 Telephone Andi Maier [facility] 1..114 350.1.13.10 4.2.7.2.686 [id number] [facility] 2024-06-23 00:00:00 2024-06-23 12:06:09 Telephone Lasha Aguilar [facility] 1..114 350.1.13.10 4.2.7.2.686 [id number] [facility] 2024-06-20 00:00:00 2024-06-20 10:53:14 Telephone Lasha Aguilar [facility] 1.84.114 350.1.13.10 4.2.7.2.686 [id number] [facility] 2024-06-20 00:00:00 2024-06-20 10:23:18 Cheryl Fink Rafaelgavi [facility] 1.2.840.114 350.1.13.10 4.2.7.2.686 [id number] [facility] 2024-06-17 15:20:00 2024-06-17 16:22:18 Outpatient R LASHA AGUILAR HOW[facility] [id number] [facility] 2024-06-17 15:20:00 2024-06-17 16:22:18 Office Visit Lasha Aguilar [facility] 1..840.114 350.1.13.10 4.2.7.2.686 [id number] [facility] 2024-06-17 00:00:00 2024-06-17 13:51:35 Patient Secure Msg Doctor Unassigned, [place] Doctor Unassigned, [place] [facility] 1..840.114 350.1.13.10 4.2.7.2.686 [id number] [facility] 2024-06-17 00:00:00 2024-06-17 13:36:54 Patient Secure Msg Doctor Unassigned, [place] Doctor Unassigned, [place] [facility] 1.2.840.114 350.1.13.10 4.2.7.2.686 [id number] [facility] 2024-06-16 00:00:00 2024-06-17 10:32:26 Patient Secure Msg Obi-DoreneIris tong [facility] 1..840.114 350.1.13.10 4.2.7.2.686 [id number] [facility] 2024-06-13 11:20:00 2024-06-13 11:37:04 Outpatient R IRIS TOTH [facility] [id number] [facility] 2024-06-13 11:20:00 2024-06-13 11:37:04 [facility] 1.2.840.114 350.1.13.10 4.2.7.2.686 [id number] [facility] 2024-06-08 00:00:00 2024-06-08 08:12:23 [facility] 1.2.840.114 350.1.13.10 4.2.7.2.686 [id number] [facility] 2024-06-04 00:00:00 2024-06-06 23:08:47 Kayden Sommerssica [facility] 1.2.840.114 350.1.13.10 4.2.7.2.686 [id number] [facility] 2024-06-05 00:00:00 2024-06-06 11:27:22 [facility] 1.2.840.114 350.1.13.10 4.2.7.2.686 [id number] [facility] 2024-06-06 00:00:00 2024-06-06 09:30:37 Allyson [facility] 1.2.840.114 350.1.13.10 4.2.7.2.686 [id number] [facility] 2024-06-03 00:00:00 2024-06-03 09:24:18 Patient Secure Msg Iris Toth [facility] 1.2.840.114 350.1.13.10 4.2.7.2.686 [id number] [facility] 2024-06-02 09:22:31 2024-06-02 23:59:00 Outpatient R OBI-DORENE , IRIS OBI-DORENE , IRIS [facility] [id number] [facility] 2024-06-02 09:22:31 2024-06-02 23:59:00 Hospital Encounter Iris Toth [facility] 1.2.840.114 350.1.13.10 4.2.7.2.686 [id number] [facility] 2024-06-02 14:45:00 2024-06-02 15:07:24 Office Visit Krishan Macias Anthony [facility] [place] 1.2.840.114 350.1.13.10 4.2.7.2.686 [id number] [facility] 2024-05-31 13:15:00 2024-05-31 13:30:02 Emergency Medical Technician/Driver Visit 2, Adc Lab Iris Toth 2, Adc Lab [facility] 1.2.840.114 350.1.13.10 4.2.7.2.686 [id number] [facility] 2024-05-31 13:15:00 2024-05-31 13:15:00 Outpatient R OBI-DORENE , IRIS OBI-DORENE , IRIS [facility] [id number] [facility] 2024-05-31 11:15:00 2024-05-31 11:15:00 Outpatient R [facility] [id number] [facility] 2024-05-30 00:00:00 2024-05-30 09:55:54 Refill Aleks Jodeesidney [facility] 1.2.840.114 350.1.13.10 4.2.7.2.686 [id number] [facility] 2024-05-26 13:20:00 2024-05-26 16:02:06 Office Visit Obi-Iris Cohen [facility] 1.2.840.114 350.1.13.10 4.2.7.2.686 [id number] [facility] 2024-05-26 13:20:00 2024-05-26 16:02:06 Outpatient R RAFYRaffaele-DORENE IRIS RAFYRaffaele-DORENE , [facility] [id number] [facility] 2024-05-26 13:00:00 2024-05-26 14:29:46 Office Visit ObHillary Iris [facility] 1.2.840.114 350.1.13.10 4.2.7.2.686 [id number] [facility] 2024-05-24 12:16:38 2024-05-24 23:59:00 Outpatient R RON HOOVER [facility] [id number] [facility] 2024-05-24 12:16:38 2024-05-24 23:59:00 Hospital Encounter Ron Hoover [facility] 1.2.840.114 350.1.13.10 4.2.7.2.686 [id number] [facility] 2024-05-05 00:00:00 2024-05-05 00:00:00 Telephone Pat Chaidez [facility] 1.2840.114 350.1.13.10 4.2.7.2.686 [id number] [facility] 2024-05-03 11:00:00 2024-05-03 11:00:00 Outpatient R RON HOOVER [facility] [id number] [facility] 2024-04-29 00:00:00 2024-04-29 13:34:24 Telephone Obi-Iris Cohen [facility] 1..840.114 350.1.13.10 4.2.7.2.686 [id number] [facility] 2024-04-14 15:15:00 2024-04-14 15:46:47 [id number] 2024-04-14 15:15:00 2024-04-14 15:46:47 Office Visit Ron Hoover [facility] 1.840.114 350.1.13.10 4.2.7.2.686 [id number] [facility] 2024-04-14 00:00:00 2024-04-14 13:31:03 Pat Sommer [facility] 1.2.840.114 350.1.13.10 4.2.7.2.686 [id number] [facility] 2024-04-04 13:40:00 2024-04-04 13:54:04 Outpatient R ALEKSALLYSON [facility] [id number] [facility] 2024-04-04 13:40:00 2024-04-04 13:54:04 [facility] [id number] [facility] 2024-03-29 00:00:00 2024-03-31 12:22:49 Patient Outreach Michelle Olmstead [facility] BUILDING 1.2.840.114 350.1.13.10 4.2.7.2.686 [id number] 044 [id number] [facility] 2024-03-29 14:00:00 2024-03-29 14:39:14 Outpatient R PAT CHAIDEZ [facility] [id number] [facility] 2024-03-29 14:00:00 2024-03-29 14:39:14 [facility] 1.2.840.114 350.1.13.10 4.2.7.2.686 [id number] 044 [id number] [facility] 2024-03-22 05:22:00 2024-03-24 12:30:00 Inpatient R SNEHA, [facility] [id number] [facility] 2024-03-22 05:22:00 2024-03-24 12:30:00 Hospital Encounter [facility] 1.2.840.114 350.1.13.10 4.2.7.2.686 [id number] 090 [id number] [facility] 2024-03-23 00:00:00 2024-03-23 14:50:58 Telephone Kayden Chaidezssica [facility] 1.2.840.114 350.1.13.10 4.2.7.2.686 [id number] 044 [id number] [facility] 2024-03-22 07:20:00 2024-03-22 11:52:00 Surgery [facility] 1.2.840.114 350.1.13.10 4.2.7.2.686 [id number] [facility] 2024-03-19 10:30:00 2024-03-19 10:45:00 Emergency Medical Technician/Driver Visit Pob, [facility] Main Ron Hoover [facility] 1.2.840.114 350.1.13.10 4.2.7.2.686 [id number] [facility] 2024-03-19 10:30:00 2024-03-19 10:30:00 Outpatient Joyce RON HOOVER [facility] [id number] [facility] 2024-03-17 00:00:00 2024-03-17 16:04:33 Telephone Pat Chaidez [facility] 1.2.840.114 350.1.13.10 4.2.7.2.686 [id number] 044 [id number] [facility] 2024-03-14 00:00:00 2024-03-14 13:37:35 Patient Secure Msg Doctor Unassigned, [place] [facility] 1.2.840.114 350.1.13.10 4.2.7.2.686 [id number] 044 [id number] [facility] 2024-03-11 00:00:00 2024-03-11 15:05:51 Telephone Pat Chaidez [facility] 1.2.840.114 350.1.13.10 4.2.7.2.686 [id number] 044 [id number] [facility] 2024-03-10 15:00:00 2024-03-10 15:15:00 Office Visit Ron Hoover [facility] 1.2.840.114 350.1.13.10 4.2.7.2.686 [id number] [facility] 2024-03-10 15:00:00 2024-03-10 15:00:00 Outpatient R RON HOOVER [facility] [id number] [facility] 2024-03-08 13:00:00 2024-03-08 13:00:00 Outpatient R RON HOOVER [facility] [id number] [facility] 2024-01-29 00:00:00 2024-03-05 18:13:43 Patient Secure Msg Doctor Unassigned, [place] [facility] 1.2.840.114 350.1.13.10 4.2.7.2.686 [id number] 044 [id number] [facility] 2024-03-03 14:00:00 2024-03-03 14:00:00 Office Visit Pat Chaidez [facility] 1.2.840.114 350.1.13.10 4.2.7.2.686 [id number] [id number] [facility] 2024-03-03 00:00:00 2024-03-03 13:18:42 Patient Outreach Ishan Michelle Asha [facility] 1.2.840.114 350.1.13.10 4.2.7.2.686 [id number] 044 [id number] [facility] 2024-03-03 14:00:00 2024-03-03 12:57:12 Outpatient R PAT CHAIDEZ [facility] [id number] [facility] 2024-03-03 09:20:00 2024-03-03 09:20:00 Office Visit Allyson Fink [facility] 1.2.840.114 350.1.13.10 4.2.7.2.686 [id number] [facility] 2024-03-03 09:20:00 2024-03-03 09:07:37 Outpatient R [facility] [id number] [facility] 2024-03-02 23:27:00 2024-03-03 01:59:00 Emergency Rosalva Finch [facility] 1.2.840.114 350.1.13.10 4.2.7.2.686 [id number] 084 [id number] [facility] 2024-03-02 00:00:00 2024-03-02 16:26:41 [facility] 1.2.840.114 350.1.13.10 4.2.7.2.686 [id number] [id number] [facility] 2024-03-02 00:00:00 2024-03-02 11:17:44 Telephone Ron Hoover [facility] 1.2.840.114 350.1.13.10 4.2.7.2.686 [id number] [facility] 2024-03-01 00:00:00 2024-03-01 13:58:48 Patient Outreach Michelle Olmstead [facility] NAL BUILDING 1.2.840.114 350.1.13.10 4.2.7.2.686 [id number] 044 [id number] [facility] 2024-02-29 00:00:00 2024-02-29 13:19:28 Telephone Ron Hoover [facility] 1.2.840.114 350.1.13.10 4.2.7.2.686 [id number] [facility] 2024-02-25 13:30:00 2024-02-25 13:30:00 Office Visit [facility]den [facility]ss[facility] 1.2.840.114 350.1.13.10 4.2.7.2.686 [id number] [id number] [facility] 2024-02-25 13:30:00 2024-02-25 13:27:04 Outpatient R PAT CHAIDEZ [facility] [id number] [facility] 2024-02-22 13:00:00 2024-02-22 14:02:15 Outpatient R PAT CHAIDEZ [facility] [id number] [facility] 2024-02-22 13:00:00 2024-02-22 13:15:00 Emergency Medical Technician/Driver Visit 2, [facility] Lab Kayden [facility]ss[facility] BUILDING 1.2840.114 350.1.13.10 4.2.7.2.686 [id number] [facility] 2024-02-10 00:00:00 2024-02-10 00:00:00 Telephone Pat Chaidez [facility] BUILDING 1.20.114 350.1.13.10 4.2.7.2.686 [id number] 044 [id number] [facility] 2024-02-02 13:00:00 2024-02-02 13:00:00 Outpatient RON CARRASQUILLO [facility] [id number] [facility] 2024-01-29 00:00:00 2024-01-29 00:00:00 Telephone Kayden Chaidezssica [facility] 1.20.114 350.1.13.10 4.2.7.2.686 [id number] 044 [id number] [facility] 2024-01-19 14:00:00 2024-01-19 14:00:00 Outpatient RON CARRASQUILLO [facility] [id number] [facility] 2024-01-12 00:00:00 2024-01-12 00:00:00 Orders Only Doctor Unassigned, [place] [facility] 1.2.114 350.1.13.10 4.2.7.2.686 [id number] [facility] 2024-01-06 00:00:00 2024-01-06 00:00:00 Telephone Krishan Cowart [facility] BUILDING 1.20.114 350.1.13.10 4.2.7.2.686 [id number] [id number] [facility] 2024-01-04 00:00:00 2024-01-04 00:00:00 Telephone Donovan Lasha [facility] BU[facility] 1.2.840.114 350.1.13.10 4.2.7.2.686 [id number] [facility] 2024-01-01 00:00:00 2024-01-01 00:00:00 Patient Secure Msg Doctor Unassigned, [place] [facility] 1.2840.114 350.1.13.10 4.2.7.2.686 [id number] 044 [id number] [facility] 2023-12-29 11:40:00 2023-12-29 16:54:53 Outpatient R LASHA AGUILAR HOWARD [facility] [id number] [facility] 2023-12-29 11:40:00 2023-12-29 16:54:53 Office Visit Donovan Lasha [facility] [place]?[facility] 1.2840.114 350.1.13.10 4.2.7.2.686 [id number] 092 [id number] [facility] 2023-12-29 00:00:00 2023-12-29 00:00:[address] [facility] 1.2.840.114 350.1.13.10 4.2.7.2.686 [id number] [facility] 2023-12-29 00:00:00 2023-12-29 00:00:00 Orders Only Doctor Unassigned, [place] [facility] 1.2840.114 350.1.13.10 4.2.7.2.686 [id number] [facility] 2023-12-28 09:40:00 2023-12-28 09:40:00 [facility] 1.2840.114 350.1.13.10 4.2.7.2.686 [id number] [facility] 2023-12-28 09:40:00 2023-12-28 09:39:59 [facility] [id number] 2023-12-28 00:00:00 2023-12-28 00:00:00 Letter (Out) [facility] 1.20.114 350.1.13.10 4.2.7.2.686 [id number] [facility] 2023-12-24 16:15:00 2023-12-24 16:15:00 Office Visit Ron Hoover [facility] 1.20.114 350.1.13.10 4.2.7.2.686 [id number] [facility] 2023-12-24 16:15:00 2023-12-24 15:29:05 Outpatient R RON HOOVER [facility] [id number] [facility] 2023-12-11 12:30:00 2023-12-11 12:48:04 Outpatient R PAT CHAIDEZ [facility] [id number] [facility] 2023-12-11 12:30:00 2023-12-11 12:48:04 Office Visit Pat Chaidez [facility] 1.2840.114 350.1.13.10 4.2.7.2.686 [id number] [id number] [facility] 2023-12-08 00:00:00 2023-12-08 00:00:00 Telephone Deandra Medina 1.20.114 350.1.13.10 4.2.7.2.686 [id number] [id number] [facility] 2023-12-07 14:40:00 2023-12-07 14:40:00 Outpatient R ALLYSON FINK [facility] [id number] [facility] 2023-12-07 00:00:00 2023-12-07 00:00:00 Orders Only Doctor Unassigned, [place] [facility] 1.2840.114 350.1.13.10 4.2.7.2.686 [id number] [facility] 2023-12-02 11:45:00 2023-12-02 14:08:59 Emergency Medical Technician/Driver Visit 2, Adc Lab Don Pat [facility] BUILDING 1.284.114 350.1.13.10 4.2.7.2.686 [id number] [facility] 2023-12-02 11:45:00 2023-12-02 11:45:00 Outpatient R PAT CHAIDEZ [facility] [id number] [facility] 2023-12-02 00:00:00 2023-12-02 00:00:00 Refill Don Pat [facility] BUILDING 1.84.114 350.1.13.10 4.2.7.2.686 [id number] 044 [id number] [facility] 2023-12-02 00:00:00 2023-12-02 00:00:00 Telephone Kayden Chaidezssica [facility] BUILDING 1.84.114 350.1.13.10 4.2.7.2.686 [id number] 044 [id number] [facility] 2023-12-01 00:00:00 2023-12-01 00:00:00 Patient Outreach Debbie Shah [facility] BUILDING 1.20.114 350.1.13.10 4.2.7.2.686 [id number] 044 [id number] [facility] 2023-11-27 15:30:00 2023-11-27 16:17:50 Outpatient R PAT CHAIDEZ [facility] [id number] [facility] 2023-11-27 15:30:00 2023-11-27 16:17:50 Office Visit [facility] BUILDING 1.2840.114 350.1.13.10 4.2.7.2.686 [id number] 044 [id number] [facility] 2023-11-27 00:00:00 2023-11-27 00:00:00 Patient Secure Msg Doctor Unassigned, [place] [address].2840.114 350.1.13.10 4.2.7.2.686 [id number] [id number] [facility] 2023-11-27 00:00:00 2023-11-27 00:00:00 Orders Only Doctor Unassigned, [place] [address].2840.114 350.1.13.10 4.2.7.2.686 [id number] [facility] Results Test Description Test Time Test Comments [...] atherosclerosis of lower abdominal aorta. No AAA. [facility] [id number] 18:24:57* Test Item Value Reference Range Interpretation Comme nts FREE T4 (test code = 1384047114) 1.30 0.78-2.20 Lab Interpretation (test cod e = 64767-7) Normal [facility] [id number] 18:24:56* Test Item Value Reference Range Interpretation Comme nts FREE T3 (test code = 8061875932) 3.86 pg/mL 2.77-5.27 Lab Interpretation (test cod e = 85031-0) Normal [facility]way[facility] (69481)(Total Cholesterol, Triglycerides, HDL)2024-05-31 18:08:31* Test Item Value Reference Range Interpretation Comme nts CHOL (test code = 4132178355) 167 mg/dL 120-200 HDL (test code = 1308014186) 32 mg/dL >=40 L HDLC RATIO (test code = 4483682289) 5.2 <=5.0 H TRIG (test code = 2893410156) 74 mg/dL 30-170 LDL CHOL (test code = 03852-4) 120 mg/dL <=160 VLDL (test code = 3262994840) 15 mg/dL 5-60 Lab Interpretation (test cod e = 58517-3) Abnormal [facility]way[facility]. Metabolic Panel (34133)2024-05-31 18:08:11* Test Item Value Reference Range Interpretation Comme nts NA (test code = 5932574740) 139 mmol/L 135-145 K (test code = 9520167518) 4.4 mmol/L 3.5-5.0 CL (test code = 9033606527) 102 mmol/L 98-108 CO2 TOTAL (test code = 5610808054) 26 mmol/L 23-31 AGAP (test code = 0120572815) 11 2-16 BUN (test code = 2808975093) 12 mg/dL 7-23 GLUCOSE (test code = 7234844019) 137 mg/dL 70-110 H CREATININE (test code = 2160-0) 0.55 mg/dL 0.60-1.25 L TOTAL BILI (test code = 5359374621) 1.0 mg/dL 0.1-1.1 CALCIUM (test code = 9418499664) 9.6 mg/dL 8.6-10.6 T PROTEIN (test code = 3083540562) 7.2 g/dL 6.3-8.2 ALBUMIN (test code = 6760879364) 4.2 g/dL 3.5-5.0 ALK PHOS (test code = 2011774560) 72 U/L 34-122 ALTv (test code = 1742-6) 22 U/L 5-50 AST(SGOT) (test code = 7632546649) 22 U/L 13-40 eGFR (test code = 75320-2) 109.3 mL/min/1.73m2 CKD-EPI eGFR (2020). Assuming creatinine has been stable day-to-day for at least three months, the eGFR indicates Category G1 (>= 90 mL/min/1.73 m2) Lab Interpretation (test code = 88398-4) Abnormal [facility]way[facility]cosylated Hemoglobin (A1C)2024-05-31 18:07:20* Test Item Value Reference Range Interpretation Comme nts HGB A1C (test code = 4548-4) 7.2 % 4.0-5.7 H ROLANDO (test code = ROLANDO) Reference RangesNormal: <5.7%Prediabetes: 5.7 - 6.4%Diabetes: > 6.5% Lab Interpretation (test code = 89901-0) Abnormal [facility]way[facility] with [id number] 17:12:34* Test Item Value Reference Range Interpretation Comme nts WBC (test code = 6690-2) 5.55 4.20-10.70 RBC (test code = 789-8) 5.13 4.26-5.52 HGB (test code = 718-7) 15.5 g/dL 12.2-16.4 HCT (test code = 4544-3) 45.6 % 38.4-49.3 MCV (test code = 787-2) 88.9 fL 81.7-95.6 MCH (test code = 785-6) 30.2 pg 26.1-32.7 MCHC (test code = 786-4) 34.0 g/dL 31.2-35.0 RDW-SD (test code = 04213-4) 38.8 fL 38.5-51.6 RDW-CV (test code = 788-0) 11.9 % 12.1-15.4 L PLT (test code = 777-3) 305 150-328 MPV (test code = 47382-7) 9.5 fL 9.8-13.0 L NRBC/100 WBC (test code = 8994571877) 0.0 0.0-10.0 NRBC x10^3 (test code = 1405783961) See_Comment [Automated messa ge] The system which generated this result transmitted reference range: 10*3/?L. The reference range was not used to interpret this result as normal/abnormal. GRAN MAT (NEUT) % (test code = 770-8) 42.1 % IMM GRAN % (test code = 0353216932) 0.20 % LYMPH % (test code = 736-9) 48.3 % MONO % (test code = 5905-5) 7.6 % EOS % (test code = 713-8) 1.3 % BASO % (test code = 706-2) 0.5 % GRAN MAT x10^3(ANC) (test code = 4844533477) 2.34 10*3/uL 1.99-6.95 IMM GRAN x10^3 (test code = 3489481185) 0.00-0.06 LYMPH x10^3 (test code = 731-0) 2.68 10*3/uL 1.09-3.23 MONO x10^3 (test code = 742-7) 0.42 10*3/uL 0.36-1.02 EOS x10^3 (test code = 711-2) 0.07 10*3/uL 0.06-0.53 BASO x10^3 (test code = 704-7) 0.03 10*3/uL 0.01-0.09 Lab Interpretation (test code = 01262-6) Abnormal [facility] GLUCOSE (AUTOMATED)2024-03-24 13:42:45* Test Item Value Reference Range Interpretation Comme nts POCT GLU (test code = 1905524953) 100 mg/dL 70-110 Lab Interpretation (test cod e = 37346-2) Normal [facility] GLUCOSE (AUTOMATED)2024-03-23 21:56:53* Test Item Value Reference Range Interpretation Comme nts POCT GLU (test code = 8828937888) 159 mg/dL 70-110 H Lab Interpretation (test cod e = 10738-0) Abnormal [facility] GLUCOSE (AUTOMATED)2024-03-23 20:50:05* Test Item Value Reference Range Interpretation Comme nts POCT GLU (test code = 5284193831) 164 mg/dL 70-110 H Lab Interpretation (test cod e = 66553-4) Abnormal [facility] GLUCOSE (AUTOMATED)2024-03-23 16:49:23* Test Item Value Reference Range Interpretation Comme nts POCT GLU (test code = 8172734363) 227 mg/dL 70-110 H Lab Interpretation (test cod e = 33644-0) Abnormal [facility] GLUCOSE (AUTOMATED)2024-03-23 16:49:23* Test Item Value Reference Range Interpretation Comme nts POCT GLU (test code = 4719913585) 227 mg/dL 70-110 H Lab Interpretation (test cod e = 75089-6) Abnormal [facility] GLUCOSE (AUTOMATED)2024-03-23 12:35:20* Test Item Value Reference Range Interpretation Comme nts POCT GLU (test code = 6974639807) 195 mg/dL 70-110 H Lab Interpretation (test cod e = 61378-6) Abnormal [facility] GLUCOSE (AUTOMATED)2024-03-23 12:35:20* Test Item Value Reference Range Interpretation Comme nts POCT GLU (test code = 1661909185) 195 mg/dL 70-110 H Lab Interpretation (test cod e = 42225-5) Abnormal [facility] GLUCOSE (AUTOMATED)2024-03-23 02:16:55* Test Item Value Reference Range Interpretation Comme nts POCT GLU (test code = 8925875209) 240 mg/dL 70-110 H Lab Interpretation (test cod e = 13550-4) Abnormal [facility] GLUCOSE (AUTOMATED)2024-03-23 02:16:55* Test Item Value Reference Range Interpretation Comme nts POCT GLU (test code = 5227590131) 240 mg/dL 70-110 H Lab Interpretation (test cod e = 46432-0) Abnormal [facility] GLUCOSE (AUTOMATED)2024-03-22 22:23:53* Test Item Value Reference Range Interpretation Comme nts POCT GLU (test code = 6611292236) 266 mg/dL 70-110 H Lab Interpretation (test cod e = 38880-2) Abnormal [facility] GLUCOSE (AUTOMATED)2024-03-22 22:23:53* Test Item Value Reference Range Interpretation Comme nts POCT GLU (test code = 6105181614) 266 mg/dL 70-110 H Lab Interpretation (test cod e = 12254-6) Abnormal [facility] GLUCOSE (AUTOMATED)2024-03-22 18:12:55* Test Item Value Reference Range Interpretation Comme nts POCT GLU (test code = 1805905399) 269 mg/dL 70-110 H Notified Provide r Lab Interpretation (test code = 29553-2) Abnormal [facility] GLUCOSE (AUTOMATED)2024-03-22 18:12:55* Test Item Value Reference Range Interpretation Comme nts POCT GLU (test code = 2445299843) 269 mg/dL 70-110 H Notified Provide r Lab Interpretation (test code = 05178-5) Abnormal [facility]2024-05-28 17:14:17* Test Item Value Reference Range Interpretation Comme nts MAGNESIUM (test code = 7728060362) 1.7 mg/dL 1.7-2.4 Lab Interpretation (test cod e = 72764-4) Normal [facility]osph[facility]2024-05-28 17:14:17* Test Item Value Reference Range Interpretation Comme nts PHOSPHORUS (test code = 1788747735) 3.0 mg/dL 2.5-5.0 Lab Interpretation (test cod e = 34050-8) Normal [facility]way[facility]asi Metabolic Panel (NA, K, CL, CO2, GLUCOSE, BUN, CREATININE, CA)2024-03-22 17:14:17* Test Item Value Reference Range Interpretation Comme nts NA (test code = 5038730332) 137 mmol/L 135-145 K (test code = 3289885971) 4.0 mmol/L 3.5-5.0 CL (test code = 7073229639) 109 mmol/L 98-108 H CO2 TOTAL (test code = 0986050118) 24 mmol/L 23-31 AGAP (test code = 6458800431) 4 2-16 BUN (test code = 9167556879) 14 mg/dL 7-23 GLUCOSE (test code = 3888239697) 238 mg/dL 70-110 H CREATININE (test code = 2160-0) 0.56 mg/dL 0.60-1.25 L CALCIUM (test code = 6475669173) 8.2 mg/dL 8.6-10.6 L eGFR (test code = 88962-5) 108.7 mL/min/1.73m2 CKD-EPI eGFR (2020). Assuming creatinine has been stable day-to-day for at least three months, the eGFR indicates Category G1 (>= 90 mL/min/1.73 m2) Lab Interpretation (test code = 14636-0) Abnormal [facility]2024-05-28 17:14:17* Test Item Value Reference Range Interpretation Comme nts MAGNESIUM (test code = 1257656602) 1.7 mg/dL 1.7-2.4 Lab Interpretation (test cod e = 15445-5) Normal [facility]2024-05-28 17:14:17* Test Item Value Reference Range Interpretation Comme nts PHOSPHORUS (test code = 7740928208) 3.0 mg/dL 2.5-5.0 Lab Interpretation (test cod e = 79888-8) Normal [facility] Met[facility] Panel (NA, K, CL, CO2, GLUCOSE, BUN, CREATININE, CA)2024-03-22 17:14:17* Test Item Value Reference Range Interpretation Comme nts NA (test code = 1146196542) 137 mmol/L 135-145 K (test code = 0047959380) 4.0 mmol/L 3.5-5.0 CL (test code = 9092994865) 109 mmol/L 98-108 H CO2 TOTAL (test code = 4591011853) 24 mmol/L 23-31 AGAP (test code = 4209562076) 4 2-16 BUN (test code = 0272378932) 14 mg/dL 7-23 GLUCOSE (test code = 1297574687) 238 mg/dL 70-110 H CREATININE (test code = 2160-0) 0.56 mg/dL 0.60-1.25 L CALCIUM (test code = 2989966422) 8.2 mg/dL 8.6-10.6 L eGFR (test code = 72502-0) 108.7 mL/min/1.73m2 CKD-EPI eGFR (2020). Assuming creatinine has been stable day-to-day for at least three months, the eGFR indicates Category G1 (>= 90 mL/min/1.73 m2) Lab Interpretation (test code = 63645-7) Abnormal [facility] with Yjvr3545-09-10 16:43:11* Test Item Value Reference Range Interpretation [...] 33.5 g/dL 31.2-35.0 RDW-SD (test code = 69892-8) 39.9 fL 38.5-51.6 RDW-CV (test code = 788-0) 12.1 % 12.1-15.4 PLT (test code = 777-3) 229 150-328 MPV (test code = 12205-0) 10.0 fL 9.8-13.0 NRBC/100 WBC (test code = 3351276353) 0.0 0.0-10.0 NRBC x10^3 (test code = 8790392637) See_Comment [Automated [employer] ge] The system which generated this result transmitted reference range: 10*3/?L. The reference range was not used to interpret this result as normal/abnormal. GRAN MAT (NEUT) % (test code = 770-8) 82.8 % IMM GRAN % (test code = 4301780713) 0.40 % LYMPH % (test code = 736-9) 14.6 % MONO % (test code = 5905-5) 1.4 % EOS % (test code = 713-8) 0.4 % BASO % (test code = 706-2) 0.4 % GRAN MAT x10^3(ANC) (test code = 7276814417) 4.66 10*3/uL 1.99-6.95 IMM GRAN x10^3 (test code = 3593493095) 0.00-0.06 LYMPH x10^3 (test code = 731-0) 0.82 10*3/uL 1.09-3.23 L MONO x10^3 (test code = 742-7) 0.08 10*3/uL 0.36-1.02 L EOS x10^3 (test code = 711-2) 0.06-0.53 L BASO x10^3 (test code = 704-7) 0.01-0.09 Lab Interpretation (test code = 37546-0) Abnormal [facility] with [id number] 16:43:11* Test Item Value Reference Range Interpretation [...] 33.5 g/dL 31.2-35.0 RDW-SD (test code = 09509-1) 39.9 fL 38.5-51.6 RDW-CV (test code = 788-0) 12.1 % 12.1-15.4 PLT (test code = 777-3) 229 150-328 MPV (test code = 27685-4) 10.0 fL 9.8-13.0 NRBC/100 WBC (test code = 3255042167) 0.0 0.0-10.0 NRBC x10^3 (test code = 5645182568) See_Comment [Automated messa ge] The system which generated this result transmitted reference range: 10*3/?L. The reference range was not used to interpret this result as normal/abnormal. GRAN MAT (NEUT) % (test code = 770-8) 82.8 % IMM GRAN % (test code = 8808298174) 0.40 % LYMPH % (test code = 736-9) 14.6 % MONO % (test code = 5905-5) 1.4 % EOS % (test code = 713-8) 0.4 % BASO % (test code = 706-2) 0.4 % GRAN MAT x10^3(ANC) (test code = 6504331491) 4.66 10*3/uL 1.99-6.95 IMM GRAN x10^3 (test code = 9916179817) 0.00-0.06 LYMPH x10^3 (test code = 731-0) 0.82 10*3/uL 1.09-3.23 L MONO x10^3 (test code = 742-7) 0.08 10*3/uL 0.36-1.02 L EOS x10^3 (test code = 711-2) 0.06-0.53 L BASO x10^3 (test code = 704-7) 0.01-0.09 Lab Interpretation (test code = 44372-4) Abnormal [facility] GLUCOSE (AUTOMATED)2024-03-22 16:30:20* Test Item Value Reference Range Interpretation Comme nts POCT GLU (test code = 1779098484) 250 mg/dL 70-110 H Lab Interpretation (test cod e = 07565-2) Abnormal [facility] GLUCOSE (AUTOMATED)2024-03-22 16:30:20* Test Item Value Reference Range Interpretation Comme nts POCT GLU (test code = 6680880765) 250 mg/dL 70-110 H Lab Interpretation (test cod e = 28890-2) [facility]normal [facility]Lab Only)2024-03-22 12:34:24* Test Item Value Reference Range Interpretation Comme nts ABO & RH (test code = 20) A Positive Performed at [facility] B Laboratory Services - [facility] Blood [address] [address] Free: [phone] No. [id number] [facility] Confirmation (Lab Only)2024-03-22 12:34:24* Test Item Value Reference Range Interpretation Comme nts ABO & RH (test code = 20) A Positive Performed at [facility] Laboratory Services [facility] Blood [address] [address] Free: [phone] No. [id number] [facility] GLUCOSE (AUTOMATED)2024-03-22 10:48:44* Test Item Value Reference Range Interpretation Comme nts POCT GLU (test code = 3872650398) 204 mg/dL 70-110 H Lab Interpretation (test cod e = 03811-6) Abnormal [facility] GLUCOSE (AUTOMATED)2024-03-22 10:48:44* Test Item Value Reference Range Interpretation Comme nts POCT GLU (test code = 1249778477) 204 mg/dL 70-110 H Lab Interpretation (test cod e = 25945-8) Abnormal [facility] [id number] 00:00:00* Test Item Value Reference Range Interpretation Comme nts POCT Glu (age>30days) (test code = 3342) 204 mg/dL 70-110 A Lab Interpretation (test cod e = 33155-0) Abnormal [facility] [id number] 00:00:00* Test Item Value Reference Range Interpretation Comme nts POCT Glu (age>30days) (test code = 3342) 204 mg/dL 70-110 A Lab Interpretation (test cod e = 80531-7) [facility]normal [facility] Screen - STAT [id number] 22:56:00* Test Item Value Reference Range Interpretation Comme nts ABO & RH (test code = 20) A POSITIVE IAT (test code = 1185) Negative [facility] GLUCOSE (AUTOMATED)2024-03-03 06:02:22* Test Item Value Reference Range Interpretation Comme nts POCT GLU (test code = 2504544051) 120 mg/dL 70-110 H Lab Interpretation (test cod e = 42344-6) Abnormal [facility] HEAD WO [id number] 05:47:04Exam: CT Head Without Contrast, 03/02/2024 11:45 PM. Ordering Physician: ROSALVA FINCH. History:Dizziness. Comparison: None. Technique: CT head was obtained without intravenous contrast. ?CT wasperformed according to ALARA (As Low As Reasonably Achievable). Technical Quality: Adequate Findings:Parenchyma: There is no parenchymal hemorrhage, mass effect, or midlineshift. Meonn-white matter differentiation is preserved. There is no [...] significant mastoidair cell opacification. Visualized orbits are unremarkable.[facility] [id number] 05:18:52* Test Item Value Reference Range Interpretation Comme nts TROPONIN I (test code = 8253454804) 0.002 ng/mL <=0.034 ROLANDO (test code = [...] of biotin. Lab Interpretation (test code = 70887-9) Normal [facility] METABOLIC PANEL (NA, K, CL, CO2, GLUCOSE, BUN, CREATININE, CA)2024-03-03 05:06:47* Test Item Value Reference Range Interpretation Comme nts NA (test code = 8020303648) 137 mmol/L 135-145 K (test code = 7738247747) 3.8 mmol/L 3.5-5.0 CL (test code = 7277092946) 105 mmol/L 98-108 CO2 TOTAL (test code = 5680831294) 23 mmol/L 23-31 AGAP (test code = 2967223228) 9 2-16 BUN (test code = 6190518061) 18 mg/dL 7-23 GLUCOSE (test code = 2540016022) 135 mg/dL 70-110 H CREATININE (test code = 2160-0) 0.64 mg/dL 0.60-1.25 CALCIUM (test code = 0572143660) 9.3 mg/dL 8.6-10.6 eGFR (test code = 23274-1) 104.4 mL/min/1.73m2 CKD-EPI eGFR (2020). Assuming creatinine has been stable day-to-day for at least three months, the eGFR indicates Category G1 (>= 90 mL/min/1.73 m2) Lab Interpretation (test code = 84778-0) Abnormal [facility] WITH [id number] 04:57:27* Test Item Value Reference Range Interpretation [...] 34.6 g/dL 31.2-35.0 RDW-SD (test code = 18947-4) 40.2 fL 38.5-51.6 RDW-CV (test code = 788-0) 12.2 % 12.1-15.4 PLT (test code = 777-3) 333 150-328 H MPV (test code = 60989-3) 10.0 fL 9.8-13.0 NRBC/100 WBC (test code = 9595865609) 0.0 0.0-10.0 NRBC x10^3 (test code = 5973393682) See_Comment [Automated messa ge] The system which generated this result transmitted reference range: 10*3/?L. The reference range was not used to interpret this result as normal/abnormal. GRAN MAT (NEUT) % (test code = 770-8) 53.1 % IMM GRAN % (test code = 1224130157) 0.30 % LYMPH % (test code = 736-9) 33.6 % MONO % (test code = 5905-5) 9.8 % EOS % (test code = 713-8) 2.3 % BASO % (test code = 706-2) 0.9 % GRAN MAT x10^3(ANC) (test code = 2544702767) 3.97 10*3/uL 1.99-6.95 IMM GRAN x10^3 (test code = 7985638549) 0.00-0.06 LYMPH x10^3 (test code = 731-0) 2.51 10*3/uL 1.09-3.23 MONO x10^3 (test code = 742-7) 0.73 10*3/uL 0.36-1.02 EOS x10^3 (test code = 711-2) 0.17 10*3/uL 0.06-0.53 BASO x10^3 (test code = 704-7) 0.07 10*3/uL 0.01-0.09 Lab Interpretation (test code = 03168-2) Abnormal [facility])2024-03-03 04:16:06* Test Item Value Reference Range Interpretation Comme nts POCT GLU (test code = 1998981828) 123 mg/dL 70-110 H Lab Interpretation (test cod e = 42441-9) Abnormal [facility] History and Physical Notes Date/Time Note Provider [...] proceed with right CEA Ron Hoover MD, VI, [facility] Vascular Surgery PGY17 Source Note - Ron Hoover MD - 03/10/2024 3:00 PM CDT Vascular Surgery Clinic Note Date of Service: 03/10/2024 HISTORY OF PRESENT ILLNESS: 68 year old male who comes in the clinic today for evaluation of carotid artery stenosis. Patient reports several years ago that he collapsed and had intracranial hemorrhage. He was treated initially in the [facility] and then was apparently transferred to [place] for further care. He reports that testing [...] every 2 (two) weeks. 6 Kit 1 [employer] ULTRAFINE III MINI PEN 31 gauge x [...] endarterectomy in the near near future at [place]. CAROLYN-SURGERY [facility] Notes Date/Time Note Provider Source 2024-06-29 09:16:49 Referral has been placed and patient will be contacted for scheduling assistance. Edgar Driscoll [facility] 2024-06-29 08:11:09 Maximus Sheehan is a 68 year old male calling to schedule referral for TIA. [phone] (home) Yarely Fontana [facility] 2024-06-23 12:02:58 Patient brought [facility] CD with [address] head & brain, Ct head angio, CT head brain w/o contast, CT neck angio and CT Head angio. Uploaded through [employer] and [employer] library with patient's MRN so they can load into [facility] PACS. Lotus Lugo RN [facility] 2024-06-23 11:39:15 Pat is taking it to radiology here for uploading. PN-NEUROLOGY STAFF [facility] 2024-06-22 09:39:47 Addended by: BEBE SEGURA on: 06/22/2024 09:39 AM Modules accepted: Orders [facility] 2024-06-22 09:38:42 Dr. Aguilar, if you are unable to get disc uploaded into [facility], please let me know. I let pt know we would call him to pick it up if needed to take to stroke clinic appt. [facility] 2024-06-22 09:38:02 Updated pt of all per Dr. Aguilar : I looked at his data, and there was question of one artery being narrowed: the vertebral. He needs to be seen in the stroke clinic. I will see if we can get the disk uploaded into the [facility] Pt verbalized understanding of all. [facility] 2024-06-22 08:58:36 I looked at his data, and there was question of one artery being narrowed: the vertebral. He needs to be seen in the stroke clinic. I will see if we can get the disk uploaded into the [facility]. Can you make that consult? Thanks. PN-NEUROLOGY STAFF [facility] 2024-06-20 10:53:04 Noted. Bebe Segura LVN [facility] 2024-06-20 10:40:40 Maximus Sheehan is a 68 year old male Pt states he will not have the disk tomorrow to give . Pt wanted to inform. Kalani Rosales [facility] 2024-06-20 10:23:05 Refill request for metoprolol received. Refill sent to pharmacy of choice. Patient is compliant as per [facility] Cardiology Protocol. Franklin Perston MA [facility] 2024-06-08 08:09:15 See patient is on metformin 500mg 1 tab bid , can increase it to 2 tab bid instead of the glipizide [facility] 2024-06-06 09:28:51 Images from the original note were not included. Requested Renewals Name from pharmacy: TRULICITY 1.5 MG/0.5 ML PEN Will file in chart as: TRULICITY 1.5 mg/0.5 mL PnIj Sig: INJECT 1 PEN SUBCUTANEOUSLY WEEKLY Disp: Not specified (Pharmacy requested: 6 Each) Refills: Not specified Start: 06/04/2024 Class: eRX Non-formulary For: Type 2 diabetes mellitus without complication, with long-term current use of insulin Last ordered: 1 month ago (04/14/2024) by ROBYN Rollins Last refill: 04/15/2024 Rx #: [id number] Endocrinology: Diabetes - Insulins Senzdj0406/06/2024 08:29 AM Protocol Details Manual review: Staff refilling for [facility], Cr lab not required to refill Cr in normal range and within 360 days Valid encounter within last 12 months HBA1C within 180 days To be filled at: [id number] - [place], [place] - [address] [facility] 05-26-2024 NOV 08-30-2024 Marianela Calderon MA [facility] 2024-06-03 09:14:27 FINDINGS: Proximal abdominal aorta is [...] and blood pressure and cholesterol is stable T [facility] 2024-05-31 13:15:00 Images from the original note were not included. Venipuncture collection performed by clean technique on the right anticubitus. Total of 1 attempts were made. Slight pressure and a bandage/dressing were applied to the site(s). The patient experienced no complications. The following specimens were processed according to instructions and sent to [facility] laboratories per lab order on 05/31/2024: LT BLUE SST 1 RED LAV 2 PPT DK GREEN (LiHep) DK GREEN (SodH) MENON DK BLUE (K2) DK BLUE (S) ACD Blood Culture NIPT/NTD Patient has been identified by and name and was provided with cup, antiseptic towelette, and clean catch instructions. 1 urine specimen(s) sent. Unpreserved 1 Urine Culture Aptima tube Other urine T [facility] 2024-05-31 13:15:00 Addended by: IRIS BEST on: 06/09/2024 12:34 PM Modules accepted: Orders [facility] 2024-05-05 10:49:33 Images from the original note were not included. Scanned in folder and placed in provider basket for review. Lynne Christiansen [facility] 2024-04-29 13:34:10 Mumtaz-Pat Garcia Pat Garcia MA [facility] 2024-04-29 13:02:49 Maximus Sheehan is a 68 [...] change the pts HH care. Myriam Haney [facility] 2024-04-14 13:27:53 Images from the original note were not included. Requested Renewals dulaglutide (TRULICITY) 1.5 mg/0.5 mL PnIj Sig: inject 1 Pen under the skin weekly. Disp: 12 Pen Refills: 0 Start: 04/14/2024 Class: eRX Non-formulary For: Type 2 diabetes mellitus without complication, with long-term current use of insulin Last ordered: 3 months ago (01/04/2024) by ROBYN Rollins Rx #: [id number] Patient comment: I am out as of today Endocrinology: Diabetes - Insulins Apqxug4704/14/2024 01:16 PM Protocol Details Manual review: Staff refilling for [facility], Cr lab not required to refill Cr in normal range and within 360 days Valid encounter within last 12 months HBA1C within 180 days To be filled at: [id number] [place], [place] - [address] [place] [address] 03-29-2024 [facility] 2024-04-14 13:16:12 From: Maximus Sheehan To: Office of Pat Chaidez Sent: 04/14/2024 12:51 PM CDT Subject: Medication Renewal Request Refills have been requested for the following medications: dulaglutide (TRULICITY) 1.5 mg/0.5 mL PnIj [Pat Chaidez] Patient Comment: I am out as of today Preferred pharmacy: [id number] - [facility] [place] - [address] Delivery method: Pickup [facility] 2024-03-28 08:27:15 Quanta vicente pad test 02/24/24 concerning for moderate pad. Continue risk assessment and reduction. Patient on statin [facility] 2024-03-28 08:12:35 Records reviewed, f/u in next appointment [facility] 2024-03-24 12:11:30 Problem: Bleeding, Risk of Goal: [...] Outcome: Progressing as expected Lakeshia Turcios RN [facility] 2024-03-24 08:38:24 Problem: Bleeding, Risk of Goal: Absence of impaired coagulation signs and symptoms Outcome: Progressing as expected Goal: Absence of active bleeding Outcome: Progressing as expected Problem: Falls, Risk of Goal: Absence of falls Outcome: Progressing as expected Problem: Discharge Planning Goal: Adequate for discharge Outcome: Progressing as expected Goal: Effective communication Outcome: Progressing as expected [facility] 2024-03-24 03:23:47 Problem: Bleeding, Risk of Goal: Absence of impaired coagulation signs and symptoms 03/24/2024 0324 by Jose Cruz RN Outcome: Progressing as expected 03/24/2024 0323 by Jose Cruz RN Outcome: Progressing as expected Goal: Absence of active bleeding 03/24/2024 0324 by Jose Cruz RN Outcome: Progressing as expected 03/24/2024 0323 by Jose Cruz RN Outcome: Progressing as expected Problem: Falls, Risk of Goal: Absence of falls Outcome: Progressing as expected Problem: Discharge Planning Goal: Adequate for discharge Outcome: Progressing as expected Goal: Effective communication Outcome: Progressing as expected ANT Jose Cruz RN [facility] 2024-03-23 14:48:50 Health assessment received from [facility] scanned in folder and placed in provider basket for review. Lynne Christiansen [facility] 2024-03-22 21:46:38 Problem: Bleeding, Risk of Goal: Absence of impaired coagulation signs and symptoms Outcome: Progressing as expected Goal: Absence of active bleeding Outcome: Progressing as expected Steven Ambrose RN [facility] 2024-03-22 08:19:00 FULL OPERATIVE NOTE Date of Surgery: 03/22/2024 Faculty physician: MD Hoover Shariq Resident physician: MD Hadley Alexis; Cathleen? Сергей Hunt Anesthesia Type: general - GETA [...] portions of the procedure. Ron Hoover MD, ZINA RAGLAND Vascular Surgery PGY17 [facility]-VASCULAR SURGERY [facility] 2024-03-22 08:19:00 BRIEF OPERATIVE NOTE Date of Surgery: 03/22/2024 Surgeons and Role: * Ron Hoover MD - Primary * Ed Hadley MD - Resident - Assisting Pre-Op Diagnosis: Carotid stenosis, bilateral [I65.23] Post-Op Diagnosis Codes: * Carotid stenosis, bilateral [I65.23] Procedures: Procedure(s) (LRB): CAROTID ENDARTERECTOMY (Right) CPT: UTMBCODINGHE, Any Complications Encounters: none Estimated Blood Loss: 100cc Specimens Removed: * No specimens in log * Implant Name Type Inv. Item Serial No. Parking Lot Laborer Lot No. LRB No. Used Action PATCH X[employer]OSUR 0.8X8CM TAPR 0.5 #[id number] - [id number] Tissue, Biological PATCH XENOSUR 0.8X8CM TAPR 0.5 #[id number] 0000 [facility] VASCULAR [id number] Right 1 Implanted Patient's Condition: stable Findings: ICA stenosis Any other important information: - SBP goal <140 Please see dictated operative report for additional detail. Associated attestation - Ron Hoover MD - 03/24/2024 7:31 AM CDT I was scrubbed in and directly supervised and/or performed all critical portions of the procedure. Ron Hoover MD, ELLYN, ZINA Vascular Surgery PGY17 [facility] 2024-03-19 10:30:00 Images from the original note were not included. Venipuncture collection performed by clean technique on the left anticubitus. Total of 1 attempts were made. Slight pressure and a bandage/dressing were applied to the site(s). The patient experienced no complications. The following specimens were processed according to instructions and sent to [facility] laboratories per lab order on 03/19/2024 : Patient armbanded and specimen sent to Ric[facility] VELÁSQUEZ. LT BLUE SST RED LAV 1 PPT DK GREEN (LiHep) DK GREEN (SodH) MENON DK BLUE (K2) DK BLUE (S) ACD Blood Culture NIPT/NTD [facility] 2024-03-17 16:02:18 Results received from [facility] scanned in folder and placed in provider basket for review. Lynne Christiansen [facility] 2024-03-14 11:49:56 Rollator order sent to [facility] [employer] via [employer]. Malinda Ramos RN [facility] 2024-03-11 14:59:20 Images from the original note were not included. POC discussed with pt, ER precautions discussed. Pt verbalized understanding and agrees w/POC. Pat Chaidez FNP MIDLEVEL PROVIDER Signed 2:38 PM I would continue to hold the Losartan If the BP starts to go up to 140/90 Then start back at Losartan 12.5 mg (half the tablet) Malinda Ramos RN [facility] 2024-03-11 14:38:58 I would continue to hold the Losartan If the BP starts to go up to 140/90 Then start back at Losartan 12.5 mg (half the tablet) [facility] 2024-03-11 14:12:39 Pt states HH nurse saw [...] of Rollator. Rx re-printed to send via [employer]. Message forwarded to ROBYN Esparza. [facility] 2024-03-11 13:08:47 Copied from [facility] #[id number]. Topic: Clinical - Medical Advice >> March 11, 2024 1:05 PM Patient Program/Music Director wrote: Pt calls and states that his BP is continuously low. Pt stopped taking losartan [address] Fink put pt on metoprolol and made him stop taking carvedilol. He states that it is starting to get a little better. He is requesting to speak with clinical staff in regards to his blood pressure readings. Please advise. Janie Hardwick [facility] 2024-03-10 15:00:00 Addended by: RON HOOVER MD on: 03/17/2024 04:12 PM Modules accepted: Orders [facility] 2024-03-03 01:59:06 Pt dc'd home with personal walker. Pt v/u to keep follow up appointments that he already has scheduled and to return to ED for worsening symptoms. Quiana Carranza RN [facility] 2024-03-02 23:43:23 Pt stated he had a fall last Thursday and woke up 30 min later on the floor. Pt had full workup at [facility]. Pt stated tonight he "just felt like I wasn't going to wake up in the morning so I decided to come get checked out." Pt obtained a ride from a friend [place] and asked me if we could keep him until 8am so he could walk across the street to his cardiology appointment at 9am. [facility] 2024-03-02 23:16:00 Pt arrives ambulatory with walker [...] BG 123 in triage. Marianela Walker RN [facility] 2024-03-02 16:21:06 Forms placed in nurse folder, has appt tomorrow. 03/03/2024. Malinda Ramos RN [facility] 2024-03-02 14:04:26 Please make sure patient brings imaging studies with him to appointment (CT results on disc please, not just report) CAROLYN-VASCULAR SURGERY STAFF [facility] 2024-03-02 13:53:08 Images from the original note were not included. Transition of Care forms received placed in Nurse fax folder. Cynthia Walker [facility] 2024-03-02 11:16:48 [facility] reports and disc received by patient and placed in the providers folder at [facility] location. Reports scanned to [employer] for upload. Ana Maria Andrew [facility] 2024-02-29 13:16:02 Patient scheduled for next available 03/10/24 and message routed to Dr Hoover for notification. Spoke with patient and notified next available 03/10/24. Patient encouraged to let attending know that he is scheduled for next available 03/10/[address] Hoover. Patient verbalized understanding. 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 Venipuncture collection performed by clean technique on the right anticubitus. Total of 3 attempts were made. Slight pressure and a bandage/dressing were applied to the site(s). The patient experienced no complications. The following specimens were processed according to instructions and sent to [facility] laboratories per lab order on 02/22/2024 : LT BLUE SST 2 RED LAV 1 PPT DK GREEN (LiHep) DK GREEN (SodH) MENON DK BLUE (K2) DK BLUE (S) ACD Blood Culture NIPT/NTD [facility] 2024-02-10 15:14:11 Forms received and placed in providers folder. Malinda Ramos RN [facility] 2024-02-10 08:57:17 Images from the original note were not included. Placed in nurse folder. Lynne Christiansen [facility] 2024-02-10 08:50:30 Will await forms for completion Malinda Ramos RN [facility] 2024-02-10 08:21:11 Maximus Sheehan is a 68 year old male January [facility] medical called stating they will be faxing over "Sarah 2 sensors forms" for pcp to be filled out. Please advise [facility] MEDICAL INFO # [phone] Fx # [phone] Anatoly Clark [facility] 2024-01-29 12:43:02 Refill [facility] 2024-01-29 11:31:00 Medication has not been filled by our office before. Message forwarded to provider for approval. Malinda Ramos RN [facility] 2024-01-06 09:06:45 Images from the original note were not included. Notification received [facility], placed in provider folder for review. Cynhtia Walker [facility] 2024-01-04 16:53:53 Received medical records from [facility] scanned and placed in box. Yancy Thurston [facility] 2024-01-04 15:13:09 Sensor has been sent to a DME company ([employer]) through [employer]. Patient rollator is waiting for provider signature. Resent to provider to sign orders through [employer]. Marianela Calderon MA [facility] 2024-01-04 13:51:14 Per patient, he is using the ebindle Sarah 2 sensor and it must be sent to [employer], it cannot be sent to the pharmacy. Order updated. Will routed to [facility] for DME order to [employer]. [facility] 2023-12-29 13:59:51 Pt has signed medical release and has been faxed to designated location for request of medical records. Confirmation received. Scanned and uploaded to patients chart. NIGHT CASHIER Lucia Sandoval [facility] 2023-12-08 10:49:19 Maximus Sheehan [id number] 12/08/23 Incoming call from patient who is trying to contact his PCP, Pat Chaidez -VALUE STREAM COACH regarding his medication. Current overdue topics are [...] unable to transfer to this clinic in [place], [place]. Patient was given the clinic phone number [phone] to speak with staff at the [facility]. Deandra Medina RN 12/08/2023 10:49 AM NIGHT CASHIER Deandra Medina RN [facility] 2023-12-02 11:45:00 Images from the original note were not included. Venipuncture collection performed by clean technique on the right anticubitus. Total of 1 attempts were made. Slight pressure and a bandage/dressing were applied to the site(s). The patient experienced no complications. The following specimens were processed according to instructions and sent to [facility] laboratories per lab order on 12/02/2023: LT BLUE SST 1 RED LAV 2 PPT DK GREEN (LiHep) DK GREEN (SodH) MENON DK BLUE (K2) DK BLUE (S) ACD Blood Culture NIPT/NTD Patient has been identified by and name and was provided with cup, antiseptic towelette, and clean catch instructions. 2 urine specimen(s) sent. Unpreserved 2 Urine Culture Aptima tube Other urine [facility] 2023-12-02 10:32:53 DME order for Rollator was sent through suture sign. Sent to [facility] Patient. Calderon MA [facility]
[2024-07-01] MEDS ORDERED: NA CHLORIDE 0.9% 1,000 ML ONE (01:01)
[2024-07-01 01:25] LABS: Absolute Eosinophils 0.1 K/uL (0-0.5); Absolute Lymphocytes (CBC) 2.1 K/uL (0.7-4.9); Absolute Monocytes 0.5 K/uL (0.1-1.3); Absolute Neutrophil 2.2 K/uL (1.8-8.0); Basophils % 0.7 % (0-1.3); Eosinophils % 2.3 % (0-4.4); Hematocrit 39.7 % (39.6-49.0); Hemoglobin 13.6 g/dL (13.6-17.9); Lymphocytes % 43.3 % (15.3-44.8); MCH 30.4 pg (27.0-35.0); MCHC 34.3 g/dL (32.0-36.0); MCV 88.4 fL (80-100); MPV 8.4 fL (7.6-11.3); Monocytes % 9.4 % (3.3-12.3); Neutrophils % 44.3 % (41.7-73.7); Nucleated Red Blood Cells % 0.1 % (0-0); PT Prothrombin Time 11.2 SECONDS (9.4-12.5); Platelets 213 thou/uL (152-406); Red Cell Distribution Width 13.6 % (12.1-15.2)
[2024-07-01 01:37] LABS: Sqamous Epithelial None Seen /HPF (None Seen); Urine Bacteria None Seen /HPF (<20); Urine Bilirubin NEGATIVE (Negative); Urine Blood 3+ (OVER) (Negative); Urine Clarity Extremely Turbid (Clear); Urine Color Dark-Brown (Yellow); Urine Culture Reflex Order REFLEXED; Urine Glucose NEGATIVE (Negative); Urine Ketones NEGATIVE (Negative); Urine Microscopic Reflex YN NO UMIC; Urine Mucus 1+ /HPF (None Seen); Urine Nitrite NEGATIVE (Negative); Urine Protein 2+ (Negative); Urine RBC >50 /HPF (None Seen); Urine Urobilinogen Normal (Normal); Urine WBC 20-50 /HPF (<5)
[2024-07-01 01:47] LABS: Albumin 3.3 g/dL (3.4-5.0); Albumin/Globulin Ratio 1.1 (1.1-1.8); Anion Gap 7.6 mEq/L (5.0-15.0); Bilirubin Total 0.4 mg/dL (0.2-1.0); Globulin 2.9 g/dL (2.3-3.5); Potassium 3.6 mEq/L (3.5-5.1); Protein, Total 6.2 g/dL (6.4-8.2)
--- NOTE | 2024-07-01 03:35 | EDPHYS ---
Physician Documentation [facility] Name: Amando Sheehan Age: 68 yrs Sex: Male : 1955 Arrival Date: 07/01/2024 Time: 00:41 Bed 3 Private MD: ED Physician Jermain Pearson HPI: 07/01 00:45 This 68 yrs old Male presents to ER via Unassigned with complaints of sp4 HEMATURIA. 00:53 Home Meds: Aspirin Oral; carvedilol oral; Lantus Sub-Q; Metformin Oral PMHx: Brain sp4 bleed; Cerebrovascular accident; Myocardial infarction; Transient cerebral ischemia; traumatic brain injury PSHx: brain surgery; Coronary artery bypass graft; Stented artery;. 04:19 68-year-old male presents with acute onset hematuria associated with some urgency.. sp4 Historical: - Allergies: 00:55 Morphine; jj7 - PMHx: 00:55 Brain bleed; Cerebrovascular accident; Myocardial infarction; Transient cerebral jj7 ischemia; traumatic brain injury; - PSHx: 00:55 brain surgery; Coronary artery bypass graft; Stented artery; jj7 - Immunization history:: Adult Immunizations not up to date, Client reports receiving the 2nd dose of the Covid vaccine, Flu vaccine is not up to date. - Infectious Disease History:: Denies. - Social history:: Smoking status: Patient denies any tobacco usage or history of. Patient/guardian denies using alcohol, street drugs, IV drugs. - Family history:: not pertinent. ROS: 04:19 Constitutional: Negative for fever, chills, and weight loss, positive for urgency, sp4 positive for hematuria 04:19 All other systems are negative, Exam: 04:19 Constitutional: This is a well developed, well nourished patient who is awake, alert, sp4 and in no acute distress. Head/Face: Normocephalic, atraumatic. Eyes: Pupils equal round and reactive to light, extra-ocular motions intact. Lids and lashes normal. Conjunctiva and sclera are not injected. Cornea within normal limits. Periorbital areas with no swelling, redness, or edema. ENT: Nares patent. No nasal discharge, no septal abnormalities noted. Tympanic membranes are normal and external auditory canals are clear. Oropharynx with no redness, swelling, or masses, exudates, or evidence of obstruction, uvula midline. Mucous membranes moist. Neck: Trachea midline, no thyromegaly or masses palpated, and no cervical lymphadenopathy. Supple, full range of motion without nuchal rigidity, or vertebral point tenderness. Chest/axilla: Normal chest wall appearance and motion. Nontender with no deformity. No lesions are appreciated. Cardiovascular: Regular rate and rhythm with a normal S1 and S2. No gallops, murmurs, or rubs. Normal PMI, no JVD. No pulse deficits. Respiratory: Lungs have equal breath sounds bilaterally, clear to auscultation and percussion. No rales, rhonchi or wheezes noted. No increased work of breathing, no retractions or nasal flaring. Abdomen/GI: Soft, with normal bowel sounds. No distension or tympany. No guarding or rebound. No evidence of tenderness throughout. Back: No spinal tenderness. No costovertebral tenderness. Skin: Warm, dry with normal turgor. Normal color with no rashes, no lesions, and no evidence of cellulitis. MS/ Extremity: Pulses equal, no cyanosis. Neurovascular intact. Full, normal range of motion. Neuro: Awake and alert, GCS 15, oriented to person, place, time, and situation. Cranial nerves II-XII grossly intact. Motor strength 5/5 in all extremities. Sensory grossly intact. Psych: Awake, alert, with orientation to person, place and time. Behavior, mood, and affect are within normal limits Vital Signs: 00:41 BP 136 / 84; Pulse 73; Resp 18; Temp 98.1; Pulse Ox 98% ; Weight 72.12 kg; Height 6 ft. j7 0 in. ; Pain 0/10; 02:00 BP 143 / 75; Pulse 77; Resp 18; Pulse Ox 97% ; jj7 02:58 BP 139 / 99; Pulse 72; Resp 19; Pulse Ox 96% ; jj7 00:41 Body Mass Index 21.56 (72.12 kg, 182.88 cm) [facility] 00:41 Pain Scale: Adult j7 [place] Coma Score: 04:19 Eye Response: spontaneous(4). Motor Response: obeys commands(6). Verbal Response: sp4 oriented(5). Total: 15. MDM: 00:54 Patient medically screened. sp4 03:33 ED course: EXAM: CTAbdomen and Pelvis With Intravenous Contrast CLINICAL HISTORY: The sp4 patient is 68 years old and is Male; Gross hematuria TECHNIQUE: Axial computed tomography images of the abdomen and pelvis with intravenous contrast. Sagittal and coronal reformatted images were created and reviewed. This CT exam was performed using one or more of the following dose reduction techniques: automated exposure control, adjustment of the mA and/or kV according to patient size, and/or use of iterative reconstruction technique. COMPARISON: No relevant prior studies available. FINDINGS: Lung bases: Unremarkable. No mass. No consolidation. ABDOMEN: Liver: Unremarkable. No mass. Gallbladder and bile ducts: Unremarkable. No calcified stones. No ductal dilation. Pancreas: Unremarkable. No mass. No ductal dilation. Spleen: Unremarkable. No splenomegaly. Adrenals: Unremarkable. No mass. Kidneys and ureters: Mild bilateral hydroureteronephrosis. No obstructing stones identified. Simple cysts in the kidneys. No follow-up imaging is recommended. Stomach and bowel: Unremarkable. No obstruction. No mucosal thickening. PELVIS: Appendix: No findings to suggest acute appendicitis. Bladder: Asymmetric thickening involving the superior bladder wall. Reproductive: Prostate is enlarged. ABDOMEN and PELVIS: Intraperitoneal space: Unremarkable. No free air. No significant fluid collection. Bones/joints: No acute fracture. No dislocation. Soft tissues: Unremarkable. Vasculature: Scattered atherosclerotic vascular calcifications. No abdominal aortic aneurysm. Lymph nodes: Unremarkable. No enlarged lymph nodes. IMPRESSION: 1. Asymmetric thickening involving the superior bladder wall. Finding is concerning for neoplasm. 2. Mild bilateral hydroureteronephrosis. No obstructing stones identified. 3. Prostate is enlarged. Electronically signed by: Forrest Flores MD 07/01/2024 03:06 AM. 04:20 Differential diagnosis: nonspecific abdominal pain, appendicitis, urinary retention, sp4 Villalobos catheter problem, prostatitis, urethritis. Data reviewed: vital signs, nurses notes, lab test result(s), radiologic studies, CT scan. ED course: Patient is able to urinate and evacuate his urine. Advised strongly to see urologist for cystoscopy and urinary bladder biopsy.. 07/01 00:54 Order name: CBC with Diff; Complete Time: 03:26 sp4 07/01 00:54 Order name: CMP; Complete Time: 03: sp4 07/01 00:54 Order name: Lipase; Complete Time: 03:26 sp4 07/01 00:54 Order name: Urinalysis w/ reflexes; Complete Time: 03:26 sp4 07/01 00:54 Order name: PT-INR; Complete Time: 03:26 sp4 07/01 01:41 Order name: Urine Culture EDAZ 07/01 00:54 Order name: CT Abd/Pelvis - IV Contrast Only sp4 07/01 00:54 Order name: IV Saline Lock; Complete Time: 01:18 sp4 07/01 00:54 Order name: Labs collected and sent; Complete Time: :18 sp4 Administered Medications: 01:14 Drug: NS 0.9% IV 1000 ml IV at 1 bolus Per protocol; 1000 mL bolus Route: IV; Rate: 1 jj7 bolus; Site: right wrist; 02:40 Follow up: Response: No adverse reaction; IV Status: Completed infusion; IV Intake: ha1 1000ml Disposition Summary: 07/01/24 03:34 Discharge Ordered Problem: new sp4 Symptoms: have improved sp4 Condition: Stable sp4 Diagnosis - Gross hematuria, bladder mass sp4 Followup: sp4 - With: Robbie Jones MD - When: 7 - 10 days - Reason: Recheck today's complaints Discharge Instructions: - Discharge Summary Sheet sp4 - Hematuria, Adult sp4 Forms: - Patient Portal Instructions sp4 Signatures: Dispatcher [employer] Darren Walton RN RN jj7 Jermain Pearson MD MD sp4 Jenna Burleson RN ha1
--- NOTE | 2024-07-01 03:35 | ER ---
Nurse's Notes [facility] Name: Amando Sheehan Age: 68 yrs Sex: Male : 1955 Arrival Date: 07/01/2024 Time: 00:41 Bed 3 Private MD: Diagnosis: Gross hematuria, bladder mass Presentation: 07/01 00:41 Chief complaint: Patient states: URINATING BLOOD SINCE 2300 EMS states: STARTED WITH jj7 URINARY DIFFICULTY THEN IT TURNED INTO URINATING BLOOD (HEMATURIA). Coronavirus screen: At this time, the client does not indicate any symptoms associated with coronavirus-19. Ebola Screen: No symptoms or risks identified at this time. Initial Sepsis Screen: Does the patient meet any 2 criteria? No. Patient's initial sepsis screen is negative. Does the patient have a suspected source of infection? No. Patient's initial sepsis screen is negative. Risk Assessment: Do you want to hurt yourself or someone else? Patient reports no desire to harm self or others. Onset of symptoms was June 30, 2024. 00:41 Method Of Arrival: EMS: [facility] j7 00:41 Acuity: SILVIA 3 jj7 Triage Assessment: 00:41 General: Appears in no apparent distress. comfortable, Behavior is calm, cooperative, jj7 appropriate for age. Pain: Denies pain. : Urine is DARK RED Reports burning with urination, since 11P HEMATURIA. Historical: - Allergies: 00:55 Morphine; jj7 - PMHx: 00:55 Brain bleed; Cerebrovascular accident; Myocardial infarction; Transient cerebral jj7 ischemia; traumatic brain injury; - PSHx: 00:55 brain surgery; Coronary artery bypass graft; Stented artery; jj7 - Immunization history:: Adult Immunizations not up to date, Client reports receiving the 2nd dose of the Covid vaccine, Flu vaccine is not up to date. - Infectious Disease History:: Denies. - Social history:: Smoking status: Patient denies any tobacco usage or history of. Patient/guardian denies using alcohol, street drugs, IV drugs. - Family history:: not pertinent. Screenin:44 [facility] ED Fall Risk Assessment (Adult) History of falling in the last 3 months, ha1 including since admission No falls in past 3 months (0 pts) Confusion or Disorientation No (0 pts) Intoxicated or Sedated No (0 pts) Impaired Gait Yes (1 pt) Mobility Assist Device Used Yes (1 pt) Altered Elimination Score/Fall Risk Level 3 or more points = High Risk Oriented to surroundings, Maintained a safe environment, Educated pt \\T\\ family on fall prevention, incl call for assistance when getting out of bed, Hourly rounding (assess needs \\T\\ fall precautionary measures) done. 00:58 Abuse screen: Denies threats or abuse. Nutritional screening: No deficits noted. jj7 Tuberculosis screening: No symptoms or risk factors identified. Assessment: 00:58 Reassessment: SEE TRIAGE ASSESSMENT. jj7 02:00 Reassessment: Patient and/or family updated on plan of care and expected duration. Pain ha1 level reassessed. Patient is alert, oriented x 3, equal unlabored respirations, skin warm/dry/pink. Patient denies pain at this time. Patient states feeling better. Patient states symptoms have improved. 03:00 Reassessment: Patient and/or family updated on plan of care and expected duration. Pain ha1 level reassessed. Patient is alert, oriented x 3, equal unlabored respirations, skin warm/dry/pink. states " I feel better my urine is more clear " Patient denies pain at this time. Patient states feeling better. Patient states symptoms have improved. 03:49 Reassessment: provided education on following up with urology. ha1 Vital Signs: 00:41 BP 136 / 84; Pulse 73; Resp 18; Temp 98.1; Pulse Ox 98% ; Weight 72.12 kg; Height 6 ft. jj7 0 in. ; Pain 0/10; 02:00 BP 143 / 75; Pulse 77; Resp 18; Pulse Ox 97% ; jj7 02:58 BP 139 / 99; Pulse 72; Resp 19; Pulse Ox 96% ; jj7 00:41 Body Mass Index 21.56 (72.12 kg, 182.88 cm) jj7 00:41 Pain Scale: Adult jj7 Amie Coma Score: 04:19 Eye Response: spontaneous(4). Motor Response: obeys commands(6). Verbal Response: sp4 oriented(5). Total: 15. ED Course: 00:41 Arm band placed on right wrist. Patient placed in an exam room, on a stretcher. jj7 00:42 Patient arrived in ED. jj6 00:44 Jermain Pearson MD is Attending Physician. sp4 00:49 Darren Flowers RN is Primary Nurse. jj7 00:54 Triage completed. jj7 00:58 Patient has correct armband on for positive identification. Bed in low position. Call jj7 light in reach. Provided Education on: USE OF CALL FRYE. 00:58 No provider procedures requiring assistance completed. jj7 01:10 Missed attempt(s): 20 gauge in right antecubital area. Bleeding controlled, band aid jj7 applied, catheter tip intact. 01:15 Inserted saline lock: 20 gauge in right wrist, using aseptic technique. Blood jj7 collected. Flushed with 10 mL NS. 01:18 CBC with Diff Sent. jj7 01:18 CMP Sent. jj7 01:18 Lipase Sent. jj7 01:18 Urinalysis w/ reflexes Sent. jj7 01:19 PT-INR Sent. jj7 02:08 CT Abd/Pelvis - IV Contrast Only In Process Unspecified. EDMS 03:33 Robbie Jones MD is Referral Physician. sp4 03:49 IV discontinued, intact, bleeding controlled, No redness/swelling at site. Pressure ha1 dressing applied. Administered Medications: 01:14 Drug: NS 0.9% IV 1000 ml IV at 1 bolus Per protocol; 1000 mL bolus Route: IV; Rate: 1 jj7 bolus; Site: right wrist; 02:40 Follow up: Response: No adverse reaction; IV Status: Completed infusion; IV Intake: ha1 1000ml Medication: 00:58 VIS not applicable for this client. jj7 Intake: 02:40 IV: 1000ml; Total: 1000ml. ha1 Outcome: 03:34 Discharge ordered by . sp4 03:48 Discharged to home ambulatory, ha1 03:48 Condition: stable 03:48 Discharge instructions given to patient, Instructed on discharge instructions, follow up and referral plans. Demonstrated understanding of instructions, follow-up care, 03:50 Patient left the ED. ha1 Signatures: Dispatcher [employer] EDWA Sarai Paulson jj6 Jenna Burleson RN RN ha1 Darren Flowers RN RN jj7 Potepalov, Jermain, MD MD sp4
[2024-07-01 03:59] VITALS: TEMP 98.1
[2024-07-01 04:10] VITALS: BP 139/99; O2SAT 96
--- NOTE | 2024-07-01 18:20 | RAD REPORT ---
EXAM DESCRIPTION: CT - Abdomen Pelvis W Contrast - 07/01/2024 6:56 am CLINICAL HISTORY: The patient is 68 years old and is Male; Gross hematuria TECHNIQUE: Axial computed tomography images of the abdomen and pelvis with intravenous contrast. S agittal and coronal reformatted images were created and reviewed. This CT exam was performed using one or more of the following dose reduction techniques: automated exposure control, adjustment of t he mA and/or kV according to patient size, and/or use of iterative reconstruction technique. COMPARISON: No relevant prior studies available. FINDINGS: Lung bases: Unremarkable. No mass. No consolidation. ABDOMEN: Liver: Unremarkable. No mass. Gallbladder and bile ducts: Unremarkable. No calcified stones. No ductal dilation. Pancreas: Unremarkable. No mass. No ductal dilation. Spleen: Unremarkable. No splenomegaly. Adrenals: Unremarkable. No mass. Kidneys and ureters: Mild bilateral hydroureteronephrosis. No obstructing stones identified. Simple cysts in the kidneys. No follow-up imaging is recommended. Stomach and bowel: Unremarkable. No obstruction. No mucosal thickening. PELVIS: Appendix: No findings to suggest acute appendicitis. Bladder: Asymmetric thickening involving the superior bladder wall. Reproductive: Prostate is enlarged. ABDOMEN and PELVIS: Intraperitoneal space: Unremarkable. No free air. No significant fluid collection. Bones/joints: No acute fracture. No dislocation. Soft tissues: Unremarkable. Vasculature: Scattered atherosclerotic vascular calcifications. No abdominal aortic aneurysm. Lymph nodes: Unremarkable. No enlarged lymph nodes. IMPRESSION: 1. Asymmetric thickening involving the superior bladder wall. Finding is concerning for neoplasm. 2. Mild bilateral hydroureteronephrosis. No obstructing stones identified. 3. Prostate is enlarged. Electronically signed by: Forrest Flores MD 07/01/2024 03:06 AM [facility] 8 Due to temporary technical issues with the PACS/Fluency reporting system, reports are being signed by the in house radiologists without review as a courtesy to insure prompt reporting. The interpreting radiologist is fully responsible for the content of the report.
== END 2024-07-01 03:50 | disposition home or self-care (01) ==
LOC: ER 00:41
DX: R31.0 Gross hematuria (principal); N32.89 Other specified disorders of bladder; Z86.73 Personal history of transient ischemic attack (TIA), and cerebral infarction without residual deficits; I25.2 Old myocardial infarction; Z95.1 Presence of aortocoronary bypass graft; Z79.82 Long term (current) use of aspirin
CPT/HCPCS: 87088; 85025; 87086; 36415; 85610; 81003; 83690; 80053; 74177; 96360; 99284; Q9967; J7030

== ENCOUNTER 2024-09-15 10:31 | Emergency (ER) | payer OTHER ==
[2024-09-15] MEDS ORDERED: LACTULOSE 20 GM/30 ML UCUP ONE (10:59)
[2024-09-15 11:10] LABS: Absolute Basophils 0.1 K/uL (0-0.5); Absolute Eosinophils 0.1 K/uL (0-0.5); Absolute Monocytes 0.6 K/uL (0.1-1.3); Basophils % 0.8 % (0-1.3); Hematocrit 43.8 % (39.6-49.0); Hemoglobin 14.6 g/dL (13.6-17.9); Lymphocytes % 29.1 % (15.3-44.8); MCH 30.2 pg (27.0-35.0); MCHC 33.4 g/dL (32.0-36.0); MCV 90.5 fL (80-100); MPV 7.6 fL (7.6-11.3); Monocytes % 8.8 % (3.3-12.3); Neutrophils % 60.3 % (41.7-73.7); Nucleated Red Blood Cells % 0.1 % (0-0); Platelets 408 thou/uL (152-406); RBC Red Blood Cell Count 4.84 M/uL (4.33-5.43); Red Cell Distribution Width 13.4 % (12.1-15.2)
[2024-09-15 11:27] LABS: Albumin 3.1 g/dL (3.4-5.0); Albumin/Globulin Ratio 0.8 (1.1-1.8); Anion Gap 10.3 mEq/L (5.0-15.0); Bilirubin Total 0.4 mg/dL (0.2-1.0); Potassium 4.3 mEq/L (3.5-5.1); Protein, Total 7.1 g/dL (6.4-8.2)
[2024-09-15 13:27] LABS: Specific Gravity 1.023 (1.005-1.030); Sqamous Epithelial <5 /HPF (None Seen); Urine Bacteria None Seen /HPF (<20); Urine Bilirubin NEGATIVE (Negative); Urine Blood 2+ (Negative); Urine Clarity Extremely Turbid (Clear); Urine Color Light-Yellow (Yellow); Urine Culture Reflex Order REFLEXED; Urine Glucose NEGATIVE (Negative); Urine Ketones 1+ (Negative); Urine Microscopic Reflex YN ORDER UMIC; Urine Mucus Slight /HPF (None Seen); Urine Nitrite NEGATIVE (Negative); Urine Protein 1+ (Negative); Urine RBC >50 /HPF (None Seen); Urine Urobilinogen Normal (Normal); Urine WBC 20-50 /HPF (<5); Urine pH 6.5 (5.0-7.0)
--- NOTE | 2024-09-15 13:36 | RAD REPORT ---
EXAMINATION: CT ABDOMEN AND PELVIS WITH CONTRAST CLINICAL INDICATION: Abd pain;Constipation TECHNIQUE: CT abdomen and pelvis was performed, after the administration of IV contrast, as per [facility] protocol. Axial, sagittal and coronal reconstructions were obtained. One or more of the following dose reduction techniques were used: Automated exposure control, adjustment of the mA and k V according to patient size, and iterative reconstruction. Unless otherwise specified, incidental findings do not require dedicated imaging follow-up. COMPARISON: 07/01/2024 FINDINGS: LOWER CHEST: The visualized lung bases are clear. LIVER: Normal in size and contour. No focal lesion. Grossly unremarkable gallbladder. SPLEEN: Normal size. No focal lesion. PANCREAS: No mass, ductal dilation, or sid-pancreatic fluid. Small calcific lesions are present. ADRENALS: Normal; no mass. KIDNEYS: Normal size and contour. No hydronephrosis. Several cysts are present bilaterally including a slightly complicated cyst anterior superior pole right kidney measuring 4 cm with thick and somewhat nodular sims. GASTROINTESTINAL TRACT: No evidence of free air, significant intra-abdominal free fluid, bowel obstru ction or abscess. Diffuse fluid distention of large and small bowel loops. APPENDIX: Normal appendix. LYMPH NODES: No lymphadenopathy. MUSCULOSKELETAL: No acute or suspicious osseous abnormality. ADDITIONAL FINDINGS: None. IMPRESSION: No acute or concerning abnormalities seen in the abdomen or pelvis. Slightly complicated cystic lesion superior aspect of the right kidney measuring 4 cm. Recommend none mergent follow-up MRI renal protocol for further assessment.
--- NOTE | 2024-09-15 13:43 | ER ---
Nurse's Notes [facility] Name: Amando Sheehan Age: 68 yrs Sex: Male : 1955 Arrival Date: 09/15/2024 Time: 10:31 Bed 20 Private MD: Diagnosis: Constipation;UTI/ Urinary tract infection, site not specified;Abnormal findings on diagnostic imaging of other abdominal regions, including retroperitoneum-4 CM RIGHT RENAL CYSTIC MASS Presentation: 09/15 10:32 Chief complaint: EMS states: CONSTIPATION X2 DAYS. Coronavirus screen: At this time, bp the client does not indicate any symptoms associated with coronavirus-19. Ebola Screen: No symptoms or risks identified at this time. Initial Sepsis Screen: Does the patient meet any 2 criteria? No. Patient's initial sepsis screen is negative. Does the patient have a suspected source of infection? No. Patient's initial sepsis screen is negative. Risk Assessment: Do you want to hurt yourself or someone else? Patient reports no desire to harm self or others. Onset of symptoms is unknown. 10:32 Method Of Arrival: EMS: [facility] bp 10:32 Acuity: SILVIA 3 bp Triage Assessment: 10:32 General: Appears in no apparent distress. uncomfortable, Behavior is calm, cooperative, bp appropriate for age. Pain: Complains of pain in abdomen. EENT: No deficits noted. Neuro: No deficits noted. Cardiovascular: No deficits noted. Respiratory: No deficits noted. GI: Reports constipation. : No signs and/or symptoms were reported regarding the genitourinary system. Derm: No deficits noted. Musculoskeletal: No deficits noted. Historical: - Allergies: 10:32 Morphine; bp - PMHx: 10:32 Brain bleed; Cerebrovascular accident; Myocardial infarction; Transient cerebral bp ischemia; traumatic brain injury; - PSHx: 10:32 brain surgery; Coronary artery bypass graft; Stented artery; bp - Immunization history:: Adult Immunizations up to date. - Infectious Disease History:: Denies. - Social history:: Smoking status: Patient denies any tobacco usage or history of. - Family history:: not pertinent. Screenin:34 [facility] ED Fall Risk Assessment (Adult) History of falling in the last 3 months, bp including since admission No falls in past 3 months (0 pts) Confusion or Disorientation No (0 pts) Intoxicated or Sedated No (0 pts) Impaired Gait No (0 pts) Mobility Assist Device Used No (0 pt) Altered Elimination No (0 pt) Score/Fall Risk Level 0 - 2 = Low Risk. Abuse screen: Denies threats or abuse. Denies injuries from another. Nutritional screening: No deficits noted. Tuberculosis screening: No symptoms or risk factors identified. Assessment: 10:34 General: Appears in no apparent distress. uncomfortable, Behavior is calm, cooperative, bp appropriate for age. 11:15 Reassessment: PO CONTRAST COMPLETED. CT NOTIFIED. bp 14:00 Reassessment: DC ON HOLD FOR ABX AND IVF. bp 16:06 Reassessment: DC HOME AMBULATORY. bp Vital Signs: 10:32 BP 143 / 66; Pulse 86; Resp 16; Temp 98; Pulse Ox 98% ; bp 12:51 BP 149 / 79; Pulse 83; Resp 15; Pulse Ox 99% ; bp 16:06 BP 137 / 69; Pulse 79; Resp 16; Pulse Ox 99% ; bp ED Course: 10:31 Patient arrived in ED. bp 10:32 Triage completed. bp 10:32 Edil Kraft MD is Attending Physician. zayda 10:32 Arm band placed on. bp 10:34 Melvin Ontiveros, KERRY is Primary Nurse. bp 10:34 Patient has correct armband on for positive identification. bp 11:06 Inserted saline lock: 20 gauge in right wrist, using aseptic technique. Blood kc6 collected. Flushed with 10 mL NS. 13:27 CT Abd/Pelvis - PO and IV Contrast In Process Unspecified. EDMS 13:42 Alfredo Valencia MD is Referral Physician. zayda 16:07 No provider procedures requiring assistance completed. IV discontinued, intact, bp bleeding controlled, No redness/swelling at site. Pressure dressing applied. Administered Medications: 11:06 Drug: Lactulose PO 60 grams 45 ml PO once Volume: 45 ml; Route: PO; bp 13:55 Follow up: Response: No adverse reaction; Marked relief of symptoms bp 11:06 Drug: NS 0.9% IV 1000 ml IV at 1000 ml once; to be given as a bolus over 60 minutes bp Route: IV; Rate: 1000 ml; Site: right forearm; 13:55 Follow up: IV Status: Completed infusion bp 12:51 Not Given (Other Intervention Used): dulcolaxsuppository 10 mg MS once bp 14:17 Drug: Rocephin IV 1 grams IV at per protocol once; Given slow IV push per pharmacy ss instructions Route: IV; Rate: per protocol; Site: right forearm; 16:06 Follow up: IV Status: Completed infusion bp 14:17 Drug: Ciprofloxacin PO 500 mg PO once Route: PO; ss 16:06 Follow up: Response: No adverse reaction bp Medication: 10:34 VIS not applicable for this client. bp Outcome: 13:43 Discharge ordered by MD. priest 16:07 Discharged to home ambulatory, bp 16:07 Condition: stable 16:07 Discharge instructions given to patient, Instructed on discharge instructions, follow up and referral plans. medication usage, Demonstrated understanding of instructions, follow-up care, medications, Prescriptions given X 3, 16:08 Patient left the ED. bp Signatures: Dispatcher [employer] EDEdil Pina MD MD cha Blanchard, Shelby, RN RN Melvin Escobar, RN RN Katheryn Newell RN RN [id number]
--- NOTE | 2024-09-15 13:43 | EDPHYS ---
Physician Documentation [facility] Name: Amando Sheehan Age: 68 yrs Sex: Male : 1955 Arrival Date: 09/15/2024 Time: 10:31 Bed 20 Private MD: ED Physician Edil Kraft HPI: 09/15 11:59 This 68 yrs old Male presents to ER via EMS with complaints of Constipation. zayda 11:59 The patient presents with abdominal pain abdominal distention in the upper abdomen, in zayda the lower abdomen. Onset: The symptoms/episode began/occurred 3 day(s) ago. The symptoms do not radiate. Associated signs and symptoms: Pertinent positives: constipation. 11:59 The symptoms are described as crampy. Modifying factors: The symptoms are alleviated by zayda nothing, the symptoms are aggravated by nothing. Severity of pain: At its worst the pain was moderate in the emergency department the pain is unchanged. The patient has not experienced similar symptoms in the past, but family has similar symptoms. Historical: - Allergies: 10:32 Morphine; bp - PMHx: 10:32 Brain bleed; Cerebrovascular accident; Myocardial infarction; Transient cerebral bp ischemia; traumatic brain injury; - PSHx: 10:32 brain surgery; Coronary artery bypass graft; Stented artery; bp - Immunization history:: Adult Immunizations up to date. - Infectious Disease History:: Denies. - Social history:: Smoking status: Patient denies any tobacco usage or history of. - Family history:: not pertinent. ROS: 11:59 Constitutional: Negative for fever, chills, and weight loss, Eyes: Negative for injury, zayda pain, redness, and discharge, ENT: Negative for injury, pain, and discharge, Neck: Negative for injury, pain, and swelling, Cardiovascular: Negative for chest pain, palpitations, and edema, Respiratory: Negative for shortness of breath, cough, wheezing, and pleuritic chest pain, Back: Negative for injury and pain, : Negative for injury, bleeding, discharge, and swelling, MS/Extremity: Negative for injury and deformity, Skin: Negative for injury, rash, and discoloration, Neuro: Negative for headache, weakness, numbness, tingling, and seizure, Psych: Negative for depression, anxiety, suicide ideation, homicidal ideation, and hallucinations, Allergy/Immunology: Negative for hives, rash, and allergies, Endocrine: Negative for neck swelling, polydipsia, polyuria, polyphagia, and marked weight changes, Hematologic/Lymphatic: Negative for swollen nodes, abnormal bleeding, and unusual bruising, 11:59 Abdomen/GI: Positive for abdominal pain, constipation, abdominal cramps, Exam: 11:59 Constitutional: This is a well developed, well nourished patient who is awake, alert, zayda and in no acute distress. Head/Face: Normocephalic, atraumatic. Eyes: Pupils equal round and reactive to light, extra-ocular motions intact. Lids and lashes normal. Conjunctiva and sclera are non-icteric and not injected. Cornea within normal limits. Periorbital areas with no swelling, redness, or edema. ENT: Nares patent. No nasal discharge, no septal abnormalities noted. Tympanic membranes are normal and external auditory canals are clear. Oropharynx with no redness, swelling, or masses, exudates, or evidence of obstruction, uvula midline. Mucous membranes moist. Neck: Trachea midline, no thyromegaly or masses palpated, and no cervical lymphadenopathy. Supple, full range of motion without nuchal rigidity, or vertebral point tenderness. No Meningismus. Chest/axilla: Normal chest wall appearance and motion. Nontender with no deformity. No lesions are appreciated. Cardiovascular: Regular rate and rhythm with a normal S1 and S2. No gallops, murmurs, or rubs. Normal PMI, no JVD. No pulse deficits. Respiratory: Lungs have equal breath sounds bilaterally, clear to auscultation and percussion. No rales, rhonchi or wheezes noted. No increased work of breathing, no retractions or nasal flaring. Abdomen/GI: Soft, non-tender, with normal bowel sounds. No distension or tympany. No guarding or rebound. No evidence of tenderness throughout. Back: No spinal tenderness. No costovertebral tenderness. Full range of motion. Male : Normal genitalia with no discharge or lesions. Skin: Warm, dry with normal turgor. Normal color with no rashes, no lesions, and no evidence of cellulitis. MS/ Extremity: Pulses equal, no cyanosis. Neurovascular intact. Full, normal range of motion. Neuro: Awake and alert, GCS 15, oriented to person, place, time, and situation. Cranial nerves II-XII grossly intact. Motor strength 5/5 in all extremities. Sensory grossly intact. Cerebellar exam normal. Normal gait. Psych: Awake, alert, with orientation to person, place and time. Behavior, mood, and affect are within normal limits. Vital Signs: 10:32 BP 143 / 66; Pulse 86; Resp 16; Temp 98; Pulse Ox 98% ; bp 12:51 BP 149 / 79; Pulse 83; Resp 15; Pulse Ox 99% ; bp 16:06 BP 137 / 69; Pulse 79; Resp 16; Pulse Ox 99% ; bp MDM: 10:32 Medical Screening Exam initiated zayda 12:01 Differential diagnosis: diverticulitis, gastritis, Mesenteric ischemia or infarction, zayda non-specific abd pain, pancreatitis, Peptic Ulcer Disease. Data reviewed: vital signs, nurses notes, lab test result(s), radiologic studies, CT scan. Consideration of Admission/Observation Escalation of care including admission/observation considered. I considered the following discharge prescriptions or medication management in the emergency department Medications were administered in the Emergency Department. See MAR. Independent interpretation of the following test(s) in the Emergency Department CT Scan: My interpretation is ct ab/pel. Test considered but Not performed: Ultrasound no abd usg. Care significantly affected by the following chronic conditions: Hypertension, cva, mi, tia. 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 09/15 10:35 Order name: CBC with Diff; Complete Time: 11:52 [facility] 09/15 10:35 Order name: Lipase; Complete Time: 11:52 [facility] 09/15 10:35 Order name: Comprehensive Metabolic Panel; Complete Time: 11:52 [facility] 09/15 10:35 Order name: Urinalysis w/ reflexes; Complete Time: 13:40 [facility] 09/15 13:29 Order name: Urine Culture [facility] 09/15 10:35 Order name: CT Abd/Pelvis - PO and IV Contrast; Complete Time: 13:40 [facility] Administered Medications: 11:06 Drug: Lactulose PO 60 grams 45 ml PO once Volume: 45 ml; Route: PO; bp 13:55 Follow up: Response: No adverse reaction; Marked relief of symptoms bp 11:06 Drug: NS 0.9% IV 1000 ml IV at 1000 ml once; to be given as a bolus over 60 minutes bp Route: IV; Rate: 1000 ml; Site: right forearm; 13:55 Follow up: IV Status: Completed infusion bp 12:51 Not Given (Other Intervention Used): dulcolaxsuppository 10 mg PA once bp 14:17 Drug: Rocephin IV 1 grams IV at per protocol once; Given slow IV push per pharmacy ss instructions Route: IV; Rate: per protocol; Site: right forearm; 16:06 Follow up: IV Status: Completed infusion bp 14:17 Drug: Ciprofloxacin PO 500 mg PO once Route: PO; ss 16:06 Follow up: Response: No adverse reaction bp Disposition Summary: 09/15/24 13:43 Discharge Ordered Notes: Location: Home zayda Problem: new zayda Symptoms: have improved zayda Condition: Stable zayda Diagnosis - Constipation zayda - UTI/ Urinary tract infection, site not specified zayda - Abnormal findings on diagnostic imaging of other abdominal regions, including zayda retroperitoneum - 4 CM RIGHT RENAL CYSTIC MASS Followup: zayda - With: Private Physician - When: 2 - 3 days - Reason: Recheck today's complaints, Continuance of care, Re-evaluation by your physician Followup: zayda - With: Alfredo Valencia MD - When: 2 - 3 days - Reason: Recheck today's complaints, Re-evaluation by your physician Discharge Instructions: - Discharge Summary Sheet zayda - Constipation, Adult zayda - Urinary Tract Infection, Adult zayda - Constipation, Adult, [id number] zayda - Urinary Tract Infection, Adult, [id number] zayda - Incidental Abnormal Radiological Finding [facility] Forms: - Medication Reconciliation Form zyada - Antibiotic Education zayda - Prescription Opioid Use zayda - Patient Portal Instructions [facility] - Leadership Thank You Letter [facility] Prescriptions: - Dulcolax (bisacodyl) 10 mg Rectal suppository - insert 1 suppository RECTAL route every 12 hours for 5 days as needed; 10 azyda suppository; Refills: 0, Product Selection Permitted - Lactulose 10 gram/15 mL Oral Solution - take 30 milliliters ORAL route once daily; 300 milliliter; Refills: 0, Product zayda Selection Permitted - Cipro 500 mg Oral Tablet - take 1 tablet ORAL route every 12 hours for 7 days; 14 tablet; Refills: 0, zayda Product Selection Permitted Signatures: Dispatcher [employer] Edil Wiley MD MD cha Blanchard, Shelby, RN RN ss Melvin Ontiveros, KERRY RN bp
[2024-09-15] MEDS ORDERED: CEFTRIAXONE 1000 MG/VIAL ONE (14:03)
[2024-09-15] MEDS ORDERED: NA CHLORIDE 0.9% 100 ML ONE (14:04)
[2024-09-15] MEDS ORDERED: CIPROFLOXACIN HCL 500 MG TAB ONE (14:04)
[2024-09-15 17:40] VITALS: TEMP 98
[2024-09-15 17:45] VITALS: O2SAT 99
[2024-09-15 17:51] VITALS: BP 137/69
== END 2024-09-15 16:08 | disposition home or self-care (01) ==
LOC: ER 10:31
DX: K59.00 Constipation, unspecified (principal); N39.0 Urinary tract infection, site not specified; N28.1 Cyst of kidney, acquired; Z95.1 Presence of aortocoronary bypass graft
CPT/HCPCS: 96365; 96361; 87088; 85025; 81001; 87086; 36415; 87077; 87186; 83690; 80053; 74177; 99284; 96366; Q9967; J0696

== ENCOUNTER 2025-02-12 14:44 | Emergency (ER) | payer OTHER ==
--- OUTSIDE RECORDS SUMMARY | 2025-02-12 14:56 | XMS REPORT | Continuity of Care Document ---
Author Name Unknown Address [address] [facility] [address] [place] [address] [facility] [place] [facility] [address] [facility] [address] [place] [address] Care Team Providers Care Bellows Tester Name Role Phone Marcel Toth MD Primary Care Physician + [phone] LYNN DOLL Attending Clinician Unavailable ALLYSON FINK Attending Clinician Unavailable RON HOOVER Attending Clinician Unavailable Yaz Jefferson RN Attending Clinician Allyson Alexander MD Attending Clinician [phone] Adela Ward DO Attending Clinician [phone] MARCEL TOTH Attending Clinician UnavailMARCEL Paris Attending Clinician UnavailMarcel Paris MD Attending Clinician [phone] Doctor Unassigned, Smarr Attending Clinician U Lynn Max MD Attending Clinician [phone] ORVILLE SHAW Attending Clinician UnavailORVILLE Fraire Attending Clinician UnavailOrville Fraire MD Attending Clinician [phone] Apurva Leonard PT Attending Clinician UnavailShelby Chavez LMSW Attending Clinician SALEEM Wesley Attending Clinician Unavailable SALEEM ERICKSON Attending Clinician Unavailable Mindy Andino MD Attending Clinician [phone] HALINA VEGAS Attending Clinician UnavailALEX Myers Attending Clinician UnavailALEX Myers Attending Clinician Unavailmarleny Blanchard MD, Alex Pope Attending Clinician +- [phone] MINDY ANDINO Attending Clinician Unavailable MINDY ANDINO Attending Clinician Unavailable Scar IRBY, Brennen Pérez Attending Clinician [phone] Duc Robbins CRNA Attending Clinician + [phone] Gabriella Nobles Attending Clinician Unava LASHA Kerr Attending Clinician Unavail able LASHA AGUILAR Attending Clinician Unavail able Donovan IRBY, Lasha Hensley Attending Clinician [phone] Bobbi Rosas Attending Clinician + [phone] KIAH GARCIA Attending Clinician UnavailKIAH Souza Attending Clinician Unavailmarleny Garcia MD, Kiah Renae Attending Clinician +- [phone] BOBBI SAUNDERS Attending Clinician Unavailholli Chaidez LEARNING COORDINATORPat Attending Clinician +[phone] 2, [facility] Attending Clinician Unavailable Nurse, [facility] Gu Attending Clinician Latosha Dyson RN Attending Clinician Unavailab Mendoza Babb MD Attending Clinician +[phone] MENDOZA CHONG Attending Clinician Unavailable ROMA DAVISON Attending Clinician Unavailable Roma Davison MD Attending Clinician +[phone] Nurse, [facility] Surgery Gu Attending Clinician JHONY Gongora Attending Clinician Unavailable Jhony Madden MD Attending Clinician +[phone] SANDRO RAMIREZ Attending Clinician Unavail able SANDRO RAMIREZ Attending Clinician Unavail able Sandro Ramirez MD Attending Clinician [phone] Ketty Starks RN Attending Clinician Unavailable WAYNE ZAPATA Attending Clinician Unavailable WAYNE ZAPATA Attending Clinician Unavailable Wayne Zapata DO Attending Clinician [phone] Ron Hoover MD Attending Clinician Galen MORALES La Nena Attending Clinician +[phone] Joselo PAYNE, Jayashree Barry Attending Clinician Unavail able DONAVON BROWN Attending Clinician Unavailab yannick Calvillo MD, Juan Cook Attending Clinician [phone] Anita Field DO Attending Clinician [phone] Marc IRBY, Donavon Attending Clinician +[phone] APRIL HERNANDEZ Attending Clinician Unavailable APRIL HERNANDEZ Attending Clinician Unavailable April Sanchez Attending Clinician [phone] Darrion IRBY, Andi Attending Clinician +[phone] Colleen IRBY, Krishan Tay Attending Clinician [phone] Campos IRBY, Halina Attending Clinician +- [phone] Don MADDOXPPat Attending Clinician [phone] Jace IRBY, Allyson Attending Clinician [phone] Ishan MEDICAL RECORD SPECIALISTMichelle Attending Clinician +[phone] PAT CHAIDEZ Attending Clinician Unavailable Pob, [facility] Attending Clinician Unavailmarleny garcia Doctor Unassigned, Smarr Attending Clinician U Rosalva Felix Attending Clinician + [phone] 2, [facility] Attending Clinician Unavailable Krishan Cowart MD Attending Clinician [phone] Lasha Aguilar MD Attending Clinician +[phone] IDALIA HART Attending Clinician Unavailab yannick Medina RN, Deandra Barry Attending Clinician Unav taniya Shah [facility], Debbie Cook Attending Clinician Unava ilable LYNN DOLL Admitting Clinician Unavailable Adela Ward DO Admitting Clinician [phone] ADELA WARD Admitting Clinician Unavailable ALEX BLANCHARD Admitting Clinician UnavailMINDY Porter Admitting Clinician Unavailable Mindy Andino MD Admitting Clinician [phone] JHONY MADDEN Admitting Clinician Unavailable Jhony Madden MD Admitting Clinician +[phone] YANNICK, ANITA Admitting Clinician Unavailable Damián Field DOuc Admitting Clinician SNEHA RON Admitting Clinician Unavailable Payers Payer Name Policy Type Policy Number Effective Date Expirati on Date Source FRIEDA MONTERO PLS O [id number] 2023 00:00:00 [place] [id number] 2024 00:00:00 Problems Condition Name Condition Details Condition Category Status Onset Date Resolution Date Last Treatment Date Treating Clinician Comments Source Chest pain Chest pain Disease Active -14 00:00: 00 [facility] Encounter for screening colonoscop y Encounter for screening colonoscop y Disease Active 11-11 00:00: 00 [facility] Atheroscle rosis of abdominal aorta Atheroscle rosis of abdominal aorta Disease Active 11-07 00:00: 00 [facility] 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, 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, with long-term current use of insulin Disease Active 11-07 00:00: 00 [facility] 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 Disease Active 11-07 00:00: 00 [facility] Urinary retention Urinary retention Disease Active 2023-10 00:00: 00 [facility] Benign prostatic hyperplasi a with urinary frequency Benign prostatic hyperplasi a with urinary frequency Disease Active 2023-10 00:00: 00 [facility] HFrEF (heart failure with reduced ejection fraction) HFrEF (heart failure with reduced ejection fraction) Disease Active 07-18 00:00: 00 [facility] PFO (patent foramen ovale) PFO (patent foramen ovale) Disease Active 07-18 00:00: 00 [facility] Numbness and tingling of right arm Numbness and tingling of right arm Disease Active 07-07 00:00: 00 [facility] Cerebrovas cular accident (CVA), unspecifie d mechanism Cerebrovas cular accident (CVA), unspecifie d mechanism Disease Active 8 00:00: 00 [facility] Black-out (not amnesia) Black-out (not amnesia) Disease Active 8- 00:00: 00 [facility] Stenosis of carotid artery, unspecifie d laterality Stenosis of carotid artery, unspecifie d laterality Disease Active 8 00:00: 00 [facility] Dependent on walker for ambulation Dependent on walker for ambulation Disease Active 8 00:00: 00 [facility] Rash and nonspecifi c skin eruption Rash and nonspecifi c skin eruption Disease Active 8 00:00: 00 [facility] Multiple falls Multiple falls Disease Active 8 00:00: 00 [facility] Carotid stenosis, bilateral Carotid stenosis, bilateral Disease Active 5-16 00:00: 00 [facility] Syncope and collapse Syncope and collapse Disease Active 5-09 00:00: 00 [facility] Type 2 diabetes mellitus, with long-term current use of insulin Type 2 diabetes mellitus, with long-term current use of insulin Disease Active 3-11 00:00: 00 [facility] Hyperlipid emia, unspecifie d hyperlipid emia type Hyperlipid emia, unspecifie d hyperlipid emia type Disease Active 3-04 00:00: 00 [facility] Essential hypertensi on Essential hypertensi on Disease Active 3-04 00:00: 00 [facility] Coronary artery disease without angina pectoris, unspecifie d vessel or lesion type, unspecifie d whether [place] or transplant ed heart Coronary artery disease without angina pectoris, unspecifie d vessel or lesion type, unspecifie d whether [place] or transplant ed heart Disease Active 3-04 00:00: 00 [facility] At risk for falls At risk for falls Disease Active 2-02 00:00: 00 [facility] Unspecifie d abnormalit ies of gait and mobility Unspecifie d abnormalit ies of gait and mobility Disease Active 2 00:00: 00 [facility] Chronic systolic (congestiv e) heart failure Chronic systolic (congestiv e) heart failure Disease Active 3 00:00: 00 [facility] Ischemic cardiomyop athy Ischemic cardiomyop athy Disease Active 3 00:00: 00 [facility] Nephrolith iasis Nephrolith iasis Disease Active 3 00:00: 00 [facility] Type 2 diabetes mellitus [address] maintenance technician y disorder, with long-term current use of insulin Type 2 diabetes mellitus [address] maintenance technician y disorder, with long-term current use of insulin Disease Active 12-24 00:00: 00 [facility] Suicide ideation Suicide ideation Disease Active 2 00:00: 00 [facility] Acute UTI Acute UTI Disease Resolve d 2023-10 0-30 00:00: 00 2025-02-06 00:00:00 2025-02-06 08:44:04 [facility] Bilateral carotid artery stenosis Bilateral carotid artery stenosis Disease Resolve d 3- 00:00: 00 2025-02-06 00:00:00 2025-02-06 08:44:04 [facility] Severe episode of recurrent major depressive disorder, 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, without psychotic features Disease Resolve d 2 00:00: 00 2025-02-06 00:00:00 2025-02-06 08:55:04 [facility] HFrEF (heart failure with reduced ejection fraction) HFrEF (heart failure with reduced ejection fraction) Disease Resolve d 3- 00:00: 00 2024-06-13 00:00:00 2024-06-13 11:23:48 [facility] Allergies, Adverse Reactions, Alerts Allergy Name Allergy Type Status Severity Reaction(s) Onset Date Inactive Date Treating Clinician Comments Source MORPHINE DRUG INGREDI Active Unknown-Cmnt 2 00:00: 00 [facility] EMPAGLIF LOZIN DRUG INGREDI Active Unknown-Cmnt 11-27 00:00: 00 [facility] Empaglif lozin Propensi ty to adverse reaction s Active Unknown - See comments 11-27 00:00: 00 [facility] Morphine Propensi ty to adverse reaction s Active Unknown - See comments 11-27 00:00: 00 [facility] NO KNOWN ALLERGIE S Drug Class Active [facility] Family History Family Member Diagnosis Comments Start Date Stop Date Sourc e Natural father Coronary Heart Disease [facility] Natural father Heart [facility] Hy[facility] Natural mother Cancer [facility] Natural mother Coronary Heart Disease [facility] Natural mother Diabetes Unive [facility] Natural sister Diabetes Un[facility] Social History Social Habit Start Date Stop Date Quantity Comments Source History of tobacco use Cigarette Smoker [facility] Tobacco use and exposure 2025-02-06 00:00:00 2025-02-06 00:00:00 Smokeless tobacco non-user [facility] Alcoholic beverage intake 2025-02-06 00:00:00 2025-02-06 00:00:00 Lifetime non-drinker (finding) [facility] History of Social function 2024-05-26 00:00:00 2024-05-26 00:00:00 [facility] Alcohol intake 2023-12-29 00:00:00 2023-12-29 00:00:00 Lifetime non-drinker (finding) [facility] Sex assigned at 1955 00:00:00 1955 00:00:00 [facility] Smoking Status Start Date Stop Date Source Tobacco smoking consumption unknown [facility] Ex-smoker 2025-02-06 00:00:00 2025-02-06 00:00:00 [facility] Medications Ordered Medication Name Filled Medication Name Start Date Stop Date Current Medication? Ordering Clinician Indication Dosage Frequency Signature (SIG) Comments Components Source aspirin chewable tablet 81 mg 02-07 14:00: 00 02-06 23:17 :50 No 81mg 81 mg, Oral, DAILY, First dose on Thu02/07/25 at 0900, Until Discontinu ed, Routine [facility] enoxaparin (LOVENOX) injection 40 mg 02-06 22:00: 00 02-06 23:17 :50 No 40mg 40 mg, Subcutaneo us, DAILY, First dose on Thu02/06/25 at 1700, Until Discontinu ed, Routine [facility] perflutren protein-A microsphr (OPTISON) injection 3 mL 02-06 20:15: 00 02-06 20:15 :00 No [id number] 3mL 3 mL, IV Push, ONCE, 1 dose, On Thu02/06/25 at 1515, Routine [facility] Sliding Scale Insulin - Lispro (HumaLOG) [id number] 5403-0 4-14 17:00: 00 02-06 23:17 :50 Yes Subcutaneo us, TID MEALS+HS, First dose on Thu02/06/25 at 1200, Until Discontinu ed, Routine [facility] glucagon HCL injection 1 mg 02-06 16:17: 28 02-06 23:17 :50 No 1mg 1 mg, Intramuscu lar, PRN, Starting on Thu02/06/25 at 1117, Until Thu02/06/25 at 1817, DAVID, Low blood sugar, Blood Glucose < or = 70 mg/dL and patient is NPO, unable to swallow or has mental changes. [facility] dextrose 50 % in water (D50W) injection 25 mL 02-06 16:17: 28 02-06 23:17 :50 No 25mL 25 mL, Slow IV Push, PRN, Starting on Thu02/06/25 at 1117, Until Thu02/06/25 at 1817, DAVID, Blood Glucose < or = 70 mg/dL and patient is NPO, unable to swallow or has mental status changes. [facility] nitroglycer in (NITROSTAT) sublingual tablet 0.4 mg 02-06 16:12: 29 02-06 23:17 :50 No .4mg 0.4 mg, Sublingual , Q5MIN PRN, Starting on Thu02/06/25 at 1112, Until Thu02/06/25 at 1817, Routine, Chest pain [facility] acetaminoph en (TYLENOL) tablet 650 mg 02-06 16:11: 00 02-06 23:17 :50 No 650mg 650 mg, Oral, Q6HPRN, Starting on Thu02/06/25 at 1111, Until Thu02/06/25 at 1817, Routine, Pain (scale 1-3) [facility] aspirin tablet 325 mg 02-06 15:45: 00 02-06 14:50 :00 No [id number] 325mg 325 mg, Oral, ONCE, 1 dose, On Thu02/06/25 at 1045, Routine [facility] nitroglycer in (NITROSTAT) sublingual tablet 0.4 mg 02-06 15:45: 00 02-06 14:48 :00 No [id number] .4mg 0.4 mg, Sublingual , ONCE, 1 dose, On Thu02/06/25 at 1045, Routine [facility] Insulin Glargine 100 unit/mL (3 mL) injection 02-06 00:00: 00 Yes [id number] 22U inject 22 Units under the skin at bedtime. [facility] insulin lispro (HUMALOG KWIKPEN INSULIN) 100 unit/mL pen injector 01-31 00:00: 00 Yes [id number] 5U inject 5 Units under the skin in the morning and 5 Units at noon and 5 Units in the evening. inject before meals. [facility] Walker (ULTRA-LIGH T ROLLATOR) Misc 03 00:00: 00 Yes [id number] R55/W19.XX XS/M79.604 /R06.02/I5 0.32/I51.7 /E11.3511: Use daily for ambulation /fall precaution (brand pending insurance approval) [facility] Walker (ULTRA-LIGH T ROLLATOR) [facility] -03 00:00: 00 01-26 00:00 :00 Yes [id number] R55/W19.XX XS/M79.604 /R06.02/I5 0.32/I51.7 /E11.3511: Use daily for ambulation /fall precaution (brand pending insurance approval) [facility] flash glucose scanning reader (FREESTYLE JOSE 14 DAY READER) [facility] 01-15 00:00: 00 Yes [id number] Take 1 Box in the morning and 1 Box in the evening. E11.65: check home blood glucose BID (brand approval by insurance) [facility] docusate 100 mg capsule 18 00:00: 00 01-26 04:59 :00 No [id number] 100mg Take 1 capsule by mouth in the morning for 15 days. [facility] cephALEXin 500 mg capsule 01-10 00:00: 00 01-18 04:59 :00 No [id number] 500mg Take 1 capsule by mouth 4 (four) times daily for 7 days. [facility] ezetimibe 10 mg tablet 06 00:00: 00 Yes [id number] 10mg Take 1 tablet by mouth in the morning. [facility] simethicone (GAS RELIEF (SIMETHICON E)) 40 mg/0.6 mL drops 12-28 14:57: 00 12-28 15:46 :53 No PRN, Starting on Thu12/28/24 at 0857, Until Thu12/28/24 at 0946, Routine, Intra-op [facility] lactated ringers IV infusion 1,000 mL 12-28 14:45: 00 12-28 14:43 :00 No 1000mL at 42 mL/hr, 1,000 mL, IV Infusion, ONCE, 1 dose, On Thu12/28/24 at 0845, Routine, DSU Pre-op [facility] metFORMIN 500 mg tablet 3-03 00:00: 00 Yes [id number] 500mg Take 1 tablet by mouth in the morning and 1 tablet in the evening. Take with meals. [facility] tamsulosin 0.4 mg 24 hr capsule 12-20 00:00: 00 Yes [id number] 9102 .4mg Take 1 capsule by mouth in the morning. [facility] metoprolol succinate XL 25 mg 24 hr tablet 18 00:00: 00 Yes [id number] 25mg Take 1 tablet by mouth in the morning. [facility] rosuvastati n 5 mg CpSP 11-21 00:00: 00 Yes [id number] 5mg Take 5 mg by mouth every evening. [facility] levoFLOXaci n (LEVAQUIN) tablet 500 mg 11-16 23:15: 00 11-16 23:29 :00 No 500mg 500 mg, Oral, ONCE, 1 dose, On Thu11/16/24 at 1715, DAVID, Reason for Anti-Infec tive: Documented Infection, Documented Infection Site: Urine, Duration of Therapy: Once (ED) [facility] NaCl 0.9% (NS) bolus infusion 1,000 mL 11-16 22:30: 00 11-17 00:08 :00 No 1000mL at 999 mL/hr, 1,000 mL, IV Infusion, ONCE, 1 dose, On Thu11/16/24 at 1630, DAVID [facility] ondansetron 4 mg tablet 11-16 00:00: 00 12-28 00:00 :00 No [id number] 1 or 2 tablets every 8 hours as needed for nausea [facility] levoFLOXaci n 500 mg tablet 11-16 00:00: 00 11-27 05:59 :00 Yes [id number] 500mg Take 1 tablet by mouth every 24 (twenty-fo ur) hours for 10 days. [facility] peg-electro lyte soln 236-22.74-6 .74 -5.86 gram solution 11-11 00:00: 00 11-12 05:59 :00 No [id number] 4000mL Take 4,000 mL by mouth once now for 1 dose. [facility] insulin glargine 100 unit/mL (3 mL) inps 11-09 00:00: 00 02-06 00:00 :00 No [id number] 22U inject 22 Units under the skin every morning. [facility] insulin lispro, human, (HUMALOG U-100 INSULIN) 100 unit/mL injection 11-09 00:00: 00 01-31 00:00 :00 No [id number] 5U inject 5 Units under the skin 3 (three) times daily as needed for Other (hyperglyc emia). [facility] coenzyme N16-slrrjpx E 100-5 mg-unit capsule 2023-10 12:56: 51 Yes Take by mouth. [facility] Magnesium Oxide 420 mg Tab 2023-10 12:56: 51 Yes Take by mouth. [facility] cholecalcif sid, vitamin D3, 25 mcg (1,000 unit) tablet 2023-10 12:56: 51 Yes 1000U Take 1 tablet by mouth. [facility] Miscellaneo us Medical Supply Kit 2023-10 00:00: 00 Yes [id number] Shower head w a hose shower stool 3 wheeled electric scooter Use as directed [facility] triamcinolo ne 0.5 % cream 2023-10 15:08: 27 Yes .1% Apply 0.1 % to area(s) as needed. [facility] dulaglutide (TRULICITY) 1.5 mg/0.5 mL PnIj 2023-10 14:52: 36 Yes 1.5mg inject 1 Pen under the skin weekly. [facility] metFORMIN 500 mg tablet 2023-10 14:52: 36 12-26 00:00 :00 No 500mg Take 1 tablet by mouth in the morning and 1 tablet in the evening. Take with meals. [facility] rosuvastati n 5 mg CpSP 2023-10 14:52: 36 11-21 00:00 :00 No 5mg Take 5 mg by mouth every evening. [facility] glipiZIDE XL 5 mg 24 hr tablet 2023-10 00:00: 00 09-07 00:00 :00 No [id number] 5mg Take 1 tablet by mouth in the morning and 1 tablet in the evening. [facility] aspirin chewable tablet 81 mg 2023-10 14:00: 00 08-26 18:54 :27 No 81mg 81 mg, Oral, DAILY, First dose (after last modificati on) on Thu08/27/24 at 0900, Until Discontinu ed, Routine [facility] insulin glargine (LANTUS U-100) injection 24 Units 2023-10 14:00: 00 08-26 18:54 :27 No 24U 24 Units, Subcutaneo us, DAILY, First dose on Thu08/26/24 at 0900, Until Discontinu ed, Routine [facility] metoprolol succinate XL 25 mg 24 hr tablet 2023-10 00:00: 00 12-12 00:00 :00 No 25mg Take 1 tablet by mouth every morning. [facility] ciprofloxac in HCl 500 mg tablet 2023-10 00:00: 00 09-01 05:59 :00 No [id number] 500mg Take 1 tablet by mouth every 12 (twelve) hours for 5 days. [facility] insulin glargine (LANTUS U-100) injection 24 Units 2023-10 20:45: 00 08-25 20:00 :00 No 24U 24 Units, Subcutaneo us, ONCE, 1 dose, On Jennifer 08/25/24 at 1545, Routine [facility] FENTanyl (PF) (SUBLIMAZE) injection 25 mcg 2023-10 16:46: 25 08-25 17:14 :00 No 25ug 25 mcg, Slow IV Push, Q5MIN PRN, 4 doses, Starting on Jennifer 08/25/24 at 1146, Until Jennifer 08/25/24 at 1214, Routine, Pain Scale 4-6, PACU [facility] lidocaine (XYLOCAINE) 2 % jelly URO-JET 2023-10 16:26: 00 08-25 16:46 :14 No PRN, Starting on Jennifer 08/25/24 at 1126, Until Jennifer 08/25/24 at 1146, Routine, Intra-op [facility] povidone-io dine (BETADINE) 10 % solution 2023-10 15:38: 00 08-25 16:46 :14 No PRN, Starting on Jennifer 08/25/24 at 1038, Until Jennifer 08/25/24 at 1146, Routine, Intra-op [facility] levoFLOXaci n in D5W (LEVAQUIN) 500 mg/100 mL Piggyback 500 mg 2023-10 15:15: 00 08-25 15:36 :00 No 500mg 500 mg, IV Piggyback, ONCE, 1 dose, On Jennifer 08/25/24 at 1015, Administer over 60 Minutes, 100 mL, DSU Pre-op, Reason for Anti-Infec tive: Surgical Prophylaxi s, Surgical Prophylaxi s: Other (see Comments), Duration of therapy: within 24 hours of surgery [facility] sodium chloride 0.9 % irrigation solution 2023-10 15:15: 00 08-25 16:46 :14 No PRN, Starting on Jennifer 08/25/24 at 1015, Until Jennifer 08/25/24 at 1146, Intra-op [facility] metoprolol succinate XL (TOPROL XL) tablet 25 mg 2023-10 14:00: 00 08-26 18:54 :27 No 25mg 25 mg, Oral, DAILY, First dose on Thu08/25/24 at 0900, Until Discontinu ed, Routine [facility] rosuvastati n (CRESTOR) tablet 5 mg 2023-10 14:00: 00 08-26 18:54 :27 No 5mg [facility] lactated ringers IV infusion 500 mL 2023-10 06:00: 00 08-25 19:57 :00 No 500mL at 50 mL/hr, 500 mL, IV Infusion, ONCE, 1 dose, On Jennifer 08/25/24 at 0100, STAT [facility] diphenhydrA MINE (BENADRYL) tablet 25 mg 2023-10 04:54: 03 08-26 18:54 :27 No 25mg 25 mg, Oral, Q4HPRN, Starting on Thu08/24/24 at 2354, Until Thu08/26/24 at 1354, Routine, Sleep [facility] Sliding Scale Insulin - Lispro (HumaLOG) 2023-10 02:00: 00 08-26 18:54 :26 No Subcutaneo us, TID MEALS+HS, First dose on Thu08/24/24 at 2100, Until Discontinu ed, Routine [facility] glucagon HCL injection 1 mg 2023-10 01:10: 06 08-26 18:54 :26 No 1mg [facility] dextrose 50 % in water (D50W) injection 25 mL 2023-10 01:10: 06 08-26 18:54 :26 No 25mL [facility] ondansetron (ZOFRAN (PF)) injection 4 mg 2023-10 01:10: 00 08-26 18:54 :26 No 4mg 4 mg, Slow IV Push, Q6HPRN, Starting on Thu08/24/24 at 2010, Until Thu08/26/24 at 1354, Routine, Nausea and Vomiting (N/V) [facility] HYDROcodone -acetaminop hen (NORCO 5) tablet 1 tablet 2023-10 01:09: 51 08-26 18:54 :26 No 1{tbl} 1 tablet, Oral, Q6HPRN, Starting on Thu08/24/24 at 2009, Until Thu08/26/24 at 1354, Routine, Pain (scale 4-6) [facility] acetaminoph en (TYLENOL) tablet 650 mg 2023-10 0-31 01:09: 46 08-26 18:54 :26 No 650mg [facility] ceFEPIme (MAXIPIME) 2,000 mg in NaCl 0.9% (NS) 100 mL MINI-BAG 2023-10 20:00: 00 08-23 20:58 :00 No 2000mg 2,000 mg, IV Piggyback, ONCE, 1 dose, On Thu08/23/24 at 1500, Administer over 30 Minutes, 100 mL, Reason for Anti-Infec tive: Documented Infection, Documented Infection Site: Urine, Duration of Therapy: Once (ED) [facility] NaCl 0.9% (NS) bolus infusion 500 mL 2023-10 18:30: 00 08-23 19:37 :00 No 500mL at 999 mL/hr, 500 mL, IV Infusion, ONCE, 1 dose, On Thu08/23/24 at 1330, STAT [facility] rosuvastati n (CRESTOR) 5 mg tablet 2023-10 0- 00:00: 00 08-26 00:00 :00 No [id number] 5mg Take 1 tablet by mouth in the morning. [facility] ciprofloxac in HCl 500 mg tablet 2023-10 0-27 00:00: 00 08-26 00:00 :00 No [id number] 500mg Take 1 tablet by mouth every 12 (twelve) hours for 5 days. [facility] cefTRIAXone (ROCEPHIN) 1,000 mg in water for injection, sterile 10 mL IV Push 2023-10 21:15: 00 08-15 20:55 :00 No 1000mg 1,000 mg, Intravenou s, ONCE, 1 dose, On Thu08/15/24 at 1615, 10 mL, Reason for Anti-Infec tive: Empiric Therapy for Suspected Infection, Empiric Therapy Site: Urine, Duration of therapy: Once (ED) [facility] cephALEXin 500 mg capsule 2023-10 0 00:00: 00 08-21 00:00 :00 No [id number] 500mg Take 1 capsule by mouth 4 (four) times daily for 7 days. [facility] iopamidol (ISOVUE 370-500 mL) injection 120 mL 2023-10 14:46: 00 08-09 14:54 :00 No [id number] 120mL 120 mL, Intravenou s, ONCE, 1 dose, On Thu08/09/24 at 1000, Routine [facility] gentamicin injection 160 mg 2023-10 14:45: 00 08-02 14:42 :00 No [id number] 160mg 160 mg, Intramuscu lar, ONCE, 1 dose, On Thu08/02/24 at 0945, DAVID, Reason for Anti-Infec tive: Surgical Prophylaxi s, Surgical Prophylaxi s: Genitourin audrey, Duration of therapy: within 24 hours of surgery [facility] aspirin 81 mg chewable tablet 07-11 00:00: 00 08-26 00:00 :00 No [id number] 81mg Take 1 tablet by mouth in the morning. [facility] gabapentin (NEURONTIN) capsule 300 mg 07-10 19:00: 00 Yes 300mg 300 mg, Oral, TID, First dose on Thu07/10/24 at 1400, Until Discontinu ed, Routine [facility] rosuvastati n (CRESTOR) tablet 5 mg 07-10 02:00: 00 Yes 5mg 5 mg, Oral, QHS, First dose (after last modificati on) on Thu07/09/24 at 2100, Until Discontinu ed, Routine [facility] insulin aspart U-100 (NOVOLOG FLEXPEN U-100 INSULIN) 100 unit/mL (3 mL) injection 07-10 00:00: 00 08-26 00:00 :00 No [id number] 10U inject 10 Units under the skin in the morning and 10 Units at noon and 10 Units in the evening. inject before meals. Inject 5 to 10 units three times a day with meals [facility] gabapentin 300 mg capsule 07-10 00:00: 00 08-23 00:00 :00 No [id number] 300mg Take 1 capsule by mouth in the morning and 1 capsule at noon and 1 capsule in the evening. [facility] aspirin chewable tablet 81 mg 07-08 22:45: 00 Yes 81mg 81 mg, Oral, DAILY, First dose on Thu07/08/24 at 1745, Until Discontinu ed, Routine [facility] perflutren lipid microsphere s (DEFINITY) injection 2 mL 07-08 21:00: 00 07-08 21:00 :00 No [id number] 2mL 2 mL, IV Push, ONCE, 1 dose, On Thu07/08/24 at 1600, Routine [facility] Saline Bubble Study 07-08 20:46: 48 Yes [id number] 6mL 6 mL, Injection, SEE-INSTRU CTIONS, Starting on Thu07/08/24 at 1546, Until Discontinu ed, Routine [facility] Saline Bubble Study 07-08 20:46: 45 Yes [id number] 6mL 6 mL, Injection, SEE-INSTRU CTIONS, Starting on Thu07/08/24 at 1546, Until Discontinu ed, Routine [facility] pioglitazon e (ACTOS) tablet 30 mg 07-08 14:00: 00 Yes 30mg 30 mg, Oral, DAILY, First dose on Thu07/08/24 at 0900, Until Discontinu ed, Routine [facility] enoxaparin (LOVENOX) injection 40 mg 07-08 14:00: 00 Yes 40mg 40 mg, Subcutaneo us, DAILY, First dose on Thu07/08/24 at 0900, Until Discontinu ed, Routine [facility] metoprolol succinate XL (TOPROL XL) tablet 25 mg 07-08 14:00: 00 Yes 25mg 25 mg, Oral, DAILY, First dose on Thu07/08/24 at 0900, Until Discontinu ed, Routine [facility] insulin glargine (LANTUS U-100) injection 25 Units 07-08 14:00: 00 Yes 25U 25 Units, Subcutaneo us, DAILY, First dose on Thu07/08/24 at 0900, Until Discontinu ed [facility] Sliding Scale Insulin - Lispro (HumaLOG) 07-08 13:00: 00 Yes Subcutaneo us, TID MEALS+HS, First dose on Thu07/08/24 at 0800, Until Discontinu ed, Routine [facility] rosuvastati n (CRESTOR) tablet 5 mg 07-08 02:15: 00 07-10 00:55 :39 No 5mg 5 mg, Oral, DAILY, First dose (after last modificati on) on Thu07/07/24 at 2115, Until Discontinu ed, Routine [facility] metFORMIN (GLUCOPHAGE ) tablet 500 mg 07-08 01:00: 00 07-09 14:05 :13 No 500mg 500 mg, Oral, BID, First dose on Thu07/07/24 at 2000, Until Discontinu ed, Routine [facility] iopamidol (ISOVUE 370-500 mL) injection 80 mL 07-08 01:00: 00 07-08 01:00 :00 No [id number] 80mL 80 mL, Intravenou s, ONCE, 1 dose, On Thu07/07/24 at 1999, Routine [facility] aspirin chewable tablet 81 mg 07-07 22:45: 00 07-08 00:39 :00 No 81mg 81 mg, Oral, ONCE NOW, 1 dose, On Thu07/07/24 at 1745, STAT [facility] glucagon HCL injection 1 mg 07-07 22:40: 58 Yes 1mg [facility] dextrose 50 % in water (D50W) injection 25 mL 07-07 22:40: 58 Yes 25mL [facility] labetaloL (NORMODYNE) 5 mg/mL injection 10 mg 2024-0 9-12 22:38: 28 Yes 10mg [facility] metoprolol succinate XL 25 mg 24 hr tablet 06-20 00:00: 08-26 00:00 :00 No [id number] 25mg Take 1 tablet by mouth in the morning. [facility] pioglitazon e (ACTOS) 30 mg tablet 06-13 00:00: 00 07-25 00:00 :00 No [id number] 30mg Take 1 tablet by mouth in the morning. [facility] glipiZIDE XL 5 mg 24 hr tablet 06-09 00:00: 07-10 00:00 :00 No [id number] 5mg Take 1 tablet by mouth daily with breakfast. [facility] BD ULTRAFINE III MINI PEN 31 gauge x 3/16" Ndle 06-06 00:00: 00 08-26 00:00 :00 No USE DIRECTED 4 TIMES A DAY [facility] dulaglutide (TRULICITY) 1.5 mg/0.5 mL PnIj 06-06 00:00: 00 08-26 00:00 :00 No [id number] INJECT 1 PEN SUBCUTANEO USLY WEEKLY [facility] triamcinolo ne acetonide 0.1 % cream 06-02 00:00: 00 08-26 00:00 :00 No [id number] Apply to area(s) 2 (two) times daily. [facility] metoprolol succinate XL 25 mg 24 hr tablet - 00:00: 00 06-20 00:00 :00 No [id number] 25mg Take 1 tablet by mouth in the morning. [facility] Insulin Glargine (LANTUS SOLOSTAR U-100 INSULIN) 100 unit/mL (3 mL) injection 05-26 00:00: 00 08-26 00:00 :00 No [id number] 24U inject 24 Units under the skin every morning. Taking 28-30 U daily Indication s: Patient recently has been taking 20 units qdaily [facility] rosuvastati n (CRESTOR) 5 mg tablet 8- 00:00: 00 08-22 00:00 :00 No [id number] 5mg Take 1 tablet by mouth in the morning. [facility] METFORMIN 500 mg tablet 7-29 00:00: 00 08-26 00:00 :00 No [id number] TAKE 1 TABLET BY MOUTH IN THE MORNING AND IN THE EVENING WITH MEALS [facility] dulaglutide (TRULICITY) 1.5 mg/0.5 mL PnIj 6-20 00:00: 00 06-06 00:00 :00 No [id number] 1.5mg inject 1 Pen under the skin weekly. [facility] rosuvastati n (CRESTOR) 20 mg tablet 04-04 00:00: 00 05-26 00:00 :00 No [id number] 20mg Take 1 tablet by mouth in the morning. [facility] aspirin 81 mg chewable tablet 04 14:01: 42 07-06 00:00 :00 No 81mg Take 1 tablet by mouth in the morning. [facility] aspirin 81 mg chewable tablet 03-24 12:31: 01 Yes 81mg Take 1 tablet by mouth in the morning. [facility] docosahexae noic acid/epa (FISH OIL ORAL) 03-24 12:31: 12-28 00:00 :00 No 81mg Take by mouth. [facility] Magnesium Oxide 500 mg Cap 30 12:31: 08-26 00:00 :00 No Take by mouth. [facility] HYDROcodone -acetaminop hen 5-325 mg tablet 30 00:00: 00 04-01 04:59 :00 No [id number] 1{tbl} Take 1 tablet by mouth every 6 (six) hours as needed for Pain (scale 4-6) or Pain (scale 7-10) for up to 7 days. Indication s: acute pain [facility] Sliding Scale Insulin - Lispro (HumaLOG) 03-23 17:00: 00 Yes Subcutaneo us, TID MEALS+HS, First dose (after last modificati on) on Thu03/23/24 at 1200, Until Discontinu ed, Routine [facility] sennosides- docusate sodium (SENOKOT-S) 8.6-50 mg per tablet 1 tablet 03-23 14:00: 00 Yes 1{tbl} 1 tablet, Oral, DAILY, First dose on Thu03/23/24 at 0900, Until Discontinu ed, Routine [facility] pantoprazol e (PROTONIX) EC tablet 40 mg 03-23 14:00: 00 Yes 40mg 40 mg, Oral, DAILY, First dose on Thu03/23/24 at 0900, Until Discontinu ed, Routine, Indication for use: None of the above [facility] metoprolol succinate XL (TOPROL XL) tablet 25 mg 03-23 14:00: 00 Yes 25mg [facility] aspirin chewable tablet 81 mg 03-23 14:00: 00 Yes 81mg 81 mg, Oral, DAILY, First dose on Thu03/23/24 at 0900, Until Discontinu ed, Routine [facility] insulin glargine (LANTUS U-100) injection 30 Units 03-23 12:30: 00 Yes 30U 30 Units, Subcutaneo us, DAILY, First dose on Thu03/23/24 at 0730, Until Discontinu ed, Routine [facility] magnesium sulfate in water 2 gram/50 mL (4 %) infusion 2 g 03-23 10:45: 00 03-23 11:40 :00 No 2g 2 g, IV Piggyback, Administer over 60 Minutes, ONCE, 1 dose, On Thu03/23/24 at 0545, Routine [facility] NORepinephr ine (LEVOPHED) 4 mg/250 mL in [...] intravenou s vasopresso r at a time. [facility] albumin (ALBUTEIN 5 %) 5 % injection 12.5 g 03-23 03:30: 00 03-23 03:43 :00 No 12.5g 12.5 g, IV Infusion, ONCE, 1 dose, On Thu03/22/24 at 2230, 250 mL, Indication : SHOCK/IMPE NDING SHOCK [facility] Sliding Scale Insulin - Lispro (HumaLOG) 03-23 03:15: 00 03-23 13:05 :34 No Subcutaneo us, TID MEALS+HS, First dose (after last modificati on) on Thu03/22/24 at 2215, Until Discontinu ed, Routine [facility] rosuvastati n (CRESTOR) tablet 10 mg 03-23 02:00: 00 Yes 10mg 10 mg, Oral, QHS, First dose on Thu03/22/24 at 2100, Until Discontinu ed, Routine [facility] heparin (porcine) injection 5,000 Units 03-22 19:00: 00 Yes 5000U 5,000 Units, Subcutaneo us, Q8H, First dose on Thu03/22/24 at 1400, Until Discontinu ed, Routine [facility] insulin glargine (LANTUS U-100) injection 30 Units 03-22 18:52: 03-22 20:49 :00 No 30U 30 Units, Subcutaneo us, ONCE, 1 dose, On Thu03/22/24 at 1400, Routine [facility] magnesium sulfate in water 2 gram/50 mL (4 %) infusion 2 g 03-22 18:45: 00 03-22 19:36 :00 No 2g 2 g, IV Piggyback, Administer over 60 Minutes, ONCE, 1 dose, On Thu03/22/24 at 1345, Routine [facility] Sliding Scale Insulin - Lispro (HumaLOG) 03-22 17:00: 00 03-23 02:43 :52 No Subcutaneo us, TID MEALS+HS, First dose on Thu03/22/24 at 1200, Until Discontinu ed, Routine [facility] acetaminoph en (TYLENOL) tablet 1,000 mg 03-22 16:49: 59 Yes 1000mg 1,000 mg, Oral, Q8HPRN, Starting on Thu03/22/24 at 1149, Until Discontinu ed, Routine, Pain (scale 1-3) [facility] HYDROcodone -acetaminop hen (NORCO) 10-325 mg tablet 1 tablet 03-22 16:49: 34 Yes 1{tbl} 1 tablet, Oral, Q6HPRN, Starting on Thu03/22/24 at 1149, Until Discontinu ed, Routine, Pain (scale 7-10) [facility] HYDROcodone -acetaminop hen (NORCO 5) 5-325 mg tablet 1 tablet 03-22 16:48: 44 Yes 1{tbl} 1 tablet, Oral, Q6HPRN, Starting on Thu03/22/24 at 1148, Until Discontinu ed, Routine, Pain (scale 4-6) [facility] glucagon (GLUCAGEN DIAGNOSTIC KIT) injection 1 mg 03-22 16:19: 35 Yes 1mg [facility] dextrose 50 % in water (D50W) injection 25 mL 03-22 16:19: 34 Yes 25mL [facility] ondansetron (ZOFRAN (PF)) injection 4 mg 03-22 16:18: 41 Yes 4mg [facility] bupivacaine (preserv free) (SENSORCAIN E MPF) 0.25 % (2.5 mg/mL) injection 03-22 15:41: 00 03-22 16:34 :55 No PRN, Starting on Thu03/22/24 at 1041, Until Thu03/22/24 at 1134, Routine, Intra-op [facility] heparin 1,000 unit/mL injection 03-22 13:50: 00 03-22 16:34 :55 No PRN, Starting on Thu03/22/24 at 0850, Until Thu03/22/24 at 1134, Routine, Intra-op [facility] metoprolol succinate XL 25 mg 24 hr tablet 03-03 00:00: 00 05-30 00:00 :00 No [id number] 25mg Take 1 tablet by mouth in the morning. [facility] carvediloL (COREG) 12.5 mg tablet 01-28 00:00: 00 03-03 00:00 :00 No [id number] 12.5mg Take 1 tablet by mouth in the morning and 1 tablet in the evening. Take with meals. [facility] flash glucose sensor (FREESTYLE JOSE 2 SENSOR) Kit 01-03 00:00: 00 08-26 00:00 :00 No 1{kit} 1 Kit every 2 (two) weeks. [facility] dulaglutide (TRULICITY) 1.5 mg/0.5 mL PnIj 01-03 00:00: 00 04-14 00:00 :00 No [id number] 1.5mg inject 1 Pen under the skin weekly. [facility] ubidecareno ne (CO Q-10 ORAL) 15:03: 08 Yes Take by mouth. [facility] Magnesium Oxide 500 mg Cap 15:03: 08 Yes Take by mouth. [facility] aspirin 81 mg chewable tablet 15:01: 19 Yes 81mg Take 1 tablet by mouth in the morning. [facility] carvediloL (COREG) 12.5 mg tablet 15:01: 19 Yes 12.5mg Take 1 tablet by mouth in the morning and 1 tablet in the evening. Take with meals. [facility] losartan 25 mg tablet 12-11 12:23: 41 12-11 00:00 :00 No 25mg Take 1 tablet by mouth in the morning. [facility] aspirin 81 mg chewable tablet 12-11 12:23: 11 Yes 81mg Take 1 tablet by mouth in the morning. [facility] carvediloL (COREG) 12.5 mg tablet 12-11 12:23: 11 Yes 12.5mg Take 1 tablet by mouth in the morning and 1 tablet in the evening. Take with meals. [facility] Blood-Gluco se Sensor (FREESTYLE JOSE 3 SENSOR) [place] 12-11 00:00: 00 08-26 00:00 :00 No [id number] Use as directed [facility] BD ULTRAFINE III MINI PEN 31 gauge x 3/16" Ndle 12-11 00:00: 00 06-06 00:00 :00 No USE DIRECTED 4 TIMES A DAY [facility] losartan 25 mg tablet 12-11 00:00: 00 04-04 00:00 :00 No [id number] 25mg Take 1 tablet by mouth in the morning. [facility] rosuvastati n (CRESTOR) 10 mg tablet 12-11 00:00: 00 04-04 00:00 :00 No [id number] 10mg Take 1 tablet by mouth at bedtime. [facility] dulaglutide (TRULICITY) 1.5 mg/0.5 mL PnIj 12-11 00:00: 00 01-03 00:00 :00 No [id number] 1.5mg inject 1 Pen under the skin weekly for 90 days. [facility] metFORMIN 500 mg tablet 11-27 15:49: 42 11-27 00:00 :00 No 500mg Take 1 tablet by mouth in the morning and 1 tablet in the evening. Take with meals. [facility] Insulin Glargine (LANTUS SOLOSTAR U-100 INSULIN) 100 unit/mL (3 mL) injection 11-27 15:49: 42 11-27 00:00 :00 No 20U inject 20 Units under the skin in the morning. [facility] insulin aspart U-100 (NOVOLOG FLEXPEN U-100 INSULIN) 100 unit/mL (3 mL) injection 11-27 15:49: 42 11-27 00:00 :00 No 10U inject 10 Units under the skin in the morning and 10 Units at noon and 10 Units in the evening. inject before meals. Inject 5 to 10 units three times a day with meals [facility] aspirin 81 mg chewable tablet 11-27 15:47: 56 Yes 81mg Take 1 tablet by mouth in the morning. [facility] losartan 25 mg tablet 11-27 15:47: 56 Yes 25mg Take 1 tablet by mouth in the morning. [facility] carvediloL (COREG) 12.5 mg tablet 11-27 15:47: 56 Yes 12.5mg Take 1 tablet by mouth in the morning and 1 tablet in the evening. Take with meals. [facility] carvedilol 1.25 mg/mL oral suspension 11-27 15:45: 05 11-27 00:00 :00 No 12.5mg Take 10 mL by mouth in the morning and 10 mL in the evening. Take with meals. 1 tab by mouth twice a day [facility] Insulin Glargine (LANTUS SOLOSTAR U-100 INSULIN) 100 unit/mL (3 mL) injection 11-27 00:00: 00 Yes [id number] 20U inject 20 Units under the skin in the morning. [facility] metFORMIN 500 mg tablet 11-27 00:00: 00 Yes [id number] 500mg Take 1 tablet by mouth in the morning and 1 tablet in the evening. Take with meals. [facility] insulin aspart U-100 (NOVOLOG FLEXPEN U-100 INSULIN) 100 unit/mL (3 mL) injection 11-27 00:00: 00 07-10 00:00 :00 No [id number] 10U inject 10 Units under the skin in the morning and 10 Units at noon and 10 Units in the evening. inject before meals. Inject 5 to 10 units three times a day with meals [facility] Insulin Glargine (LANTUS SOLOSTAR U-100 INSULIN) 100 unit/mL (3 mL) injection 11-27 00:00: 00 05-26 00:00 :00 No [id number] 20U inject 20 Units under the skin in the morning. [facility] Vital Signs Vital Name Observation Time Observation Value Comments S ource Systolic blood pressure 2025-02-06 21:00:00 145 mm[Hg] [facility] Diastolic blood pressure 2025-02-06 21:00:00 73 mm[Hg] [facility] Respiratory rate 2025-02-06 21:00:00 16 /min [facility] Oxygen saturation in Arterial blood by Pulse oximetry 2025-02-06 21:00:00 99 /min [facility] Body temperature 2025-02-06 20:49:00 36.44 Mera [facility] Heart rate 2025-02-06 17:00:00 71 /min [facility] Body height 2025-02-06 16:06:00 182.9 cm [facility] Body weight 2025-02-06 16:06:00 73.483 kg [facility] BMI 2025-02-06 16:06:00 21.97 kg/m2 [facility] Systolic blood pressure 2025-02-06 14:28:00 148 mm[Hg] [facility] Diastolic blood pressure 2025-02-06 14:28:00 84 mm[Hg] [facility] Heart rate 2025-02-06 14:28:00 82 /min [facility] Oxygen saturation in Arterial blood by Pulse oximetry 2025-02-06 14:28:00 99 /min [facility] Body height 2025-02-06 14:26:00 182.9 cm [facility] Body weight 2025-02-06 14:26:00 73.71 kg [facility] BMI 2025-02-06 14:26:00 22.04 kg/m2 [facility] Systolic blood pressure 2025-02-06 13:21:00 128 mm[Hg] [facility] Diastolic blood pressure 2025-02-06 13:21:00 80 mm[Hg] [facility] Heart rate 2025-02-06 13:21:00 99 /min [facility] Body temperature 2025-02-06 13:21:00 36.39 Mera [facility] Respiratory rate 2025-02-06 13:21:00 18 /min [facility] Body height 2025-02-06 13:21:00 182.9 cm [facility] Body weight 2025-02-06 13:21:00 75.206 kg [facility] BMI 2025-02-06 13:21:00 22.49 kg/m2 [facility] Oxygen saturation in Arterial blood by Pulse oximetry 2025-02-06 13:21:00 99 /min [facility] Systolic blood pressure 2025-01-31 15:31:00 127 mm[Hg] [facility] Diastolic blood pressure 2025-01-31 15:31:00 78 mm[Hg] [facility] Heart rate 2025-01-31 15:31:00 74 /min [facility] Body temperature 2025-01-31 15:31:00 36.28 Mera [facility] Body height 2025-01-31 15:31:00 182.9 cm [facility] Body weight 2025-01-31 15:31:00 74.56 kg [facility] BMI 2025-01-31 15:31:00 22.29 kg/m2 [facility] Oxygen saturation in Arterial blood by Pulse oximetry 2025-01-31 15:31:00 99 /min [facility] Systolic blood pressure 2024-12-29 18:58:00 123 mm[Hg] [facility] Diastolic blood pressure 2024-12-29 18:58:00 63 mm[Hg] [facility] Heart rate 2024-12-29 18:58:00 81 /min [facility] Respiratory rate 2024-12-29 18:58:00 16 /min [facility] Body height 2024-12-29 18:58:00 182.9 cm [facility] Body weight 2024-12-29 18:58:00 73.437 kg [facility] BMI 2024-12-29 18:58:00 21.96 kg/m2 [facility] Oxygen saturation in Arterial blood by Pulse oximetry 2024-12-29 18:58:00 96 /min [facility] Systolic blood pressure 2024-12-28 16:15:00 125 mm[Hg] [facility] Diastolic blood pressure 2024-12-28 16:15:00 64 mm[Hg] [facility] Heart rate 2024-12-28 16:15:00 77 /min [facility] Respiratory rate 2024-12-28 16:15:00 11 /min [facility] Oxygen saturation in Arterial blood by Pulse oximetry 2024-12-28 16:15:00 95 /min [facility] Body temperature 2024-12-28 15:45:00 36.22 Mera [facility] Body height 2024-12-28 14:30:00 182.9 cm [facility] Body weight 2024-12-28 14:30:00 72.122 kg [facility] BMI 2024-12-28 14:30:00 21.56 kg/m2 [facility] Systolic blood pressure 2024-12-28 15:55:00 110 mm[Hg] [facility] Diastolic blood pressure 2024-12-28 15:55:00 64 mm[Hg] [facility] Heart rate 2024-12-28 15:55:00 74 /min [facility] Respiratory rate 2024-12-28 15:55:00 14 /min [facility] Oxygen saturation in Arterial blood by Pulse oximetry 2024-12-28 15:55:00 100 /min [facility] Body temperature 2024-12-28 15:45:00 36.22 Mera [facility] Body height 2024-12-28 14:30:00 182.9 cm [facility] Body weight 2024-12-28 14:30:00 72.122 kg [facility] BMI 2024-12-28 14:30:00 21.56 kg/m2 [facility] Systolic blood pressure 2024-12-20 17:39:00 137 mm[Hg] [facility] Diastolic blood pressure 2024-12-20 17:39:00 83 mm[Hg] [facility] Heart rate 2024-12-20 17:39:00 76 /min [facility] Body temperature 2024-12-20 17:39:00 36.72 Mera [facility] Body height 2024-12-20 17:39:00 182.9 cm [facility] Body weight 2024-12-20 17:39:00 74.072 kg [facility] BMI 2024-12-20 17:39:00 22.15 kg/m2 [facility] Oxygen saturation in Arterial blood by Pulse oximetry 2024-12-20 17:39:00 98 /min [facility] Systolic blood pressure 2024-12-06 18:11:00 153 mm[Hg] [facility] Diastolic blood pressure 2024-12-06 18:11:00 76 mm[Hg] [facility] Heart rate 2024-12-06 18:10:00 77 /min [facility] Respiratory rate 2024-12-06 18:10:00 18 /min [facility] Body height 2024-12-06 18:10:00 182.9 cm [facility] Body weight 2024-12-06 18:10:00 73.437 kg [facility] BMI 2024-12-06 18:10:00 21.96 kg/m2 [facility] Oxygen saturation in Arterial blood by Pulse oximetry 2024-12-06 18:10:00 98 /min [facility] Systolic blood pressure 2024-11-17 00:00:00 142 mm[Hg] [facility] Diastolic blood pressure 2024-11-17 00:00:00 62 mm[Hg] [facility] Heart rate 2024-11-17 00:00:00 88 /min [facility] Body temperature 2024-11-17 00:00:00 37.22 Mera [facility] Respiratory rate 2024-11-17 00:00:00 16 /min [facility] Oxygen saturation in Arterial blood by Pulse oximetry 2024-11-17 00:00:00 98 /min [facility] Body height 2024-11-16 20:17:00 182.9 cm [facility] Body weight 2024-11-16 20:17:00 73.029 kg [facility] BMI 2024-11-16 20:17:00 21.84 kg/m2 [facility] Systolic blood pressure 2024-11-11 14:30:00 129 mm[Hg] [facility] Diastolic blood pressure 2024-11-11 14:30:00 84 mm[Hg] [facility] Heart rate 2024-11-11 14:26:00 79 /min [facility] Body temperature 2024-11-11 14:26:00 36.28 Mera [facility] Respiratory rate 2024-11-11 14:26:00 16 /min [facility] Body height 2024-11-11 14:26:00 182.9 cm per patient [facility] Body weight 2024-11-11 14:26:00 74.39 kg [facility] BMI 2024-11-11 14:26:00 22.24 kg/m2 [facility] Oxygen saturation in Arterial blood by Pulse oximetry 2024-11-11 14:26:00 98 /min [facility] Systolic blood pressure 2024-11-07 14:08:00 127 mm[Hg] [facility] Diastolic blood pressure 2024-11-07 14:08:00 70 mm[Hg] [facility] Heart rate 2024-11-07 14:08:00 83 /min [facility] Body temperature 2024-11-07 14:08:00 36.39 Mera [facility] Respiratory rate 2024-11-07 14:08:00 18 /min [facility] Body height 2024-11-07 14:08:00 182.9 cm [facility] Body weight 2024-11-07 14:08:00 74.027 kg [facility] BMI 2024-11-07 14:08:00 22.13 kg/m2 [facility] Oxygen saturation in Arterial blood by Pulse oximetry 2024-11-07 14:08:00 98 /min [facility] Systolic blood pressure 2024-10-11 16:09:00 138 mm[Hg] [facility] Diastolic blood pressure 2024-10-11 16:09:00 84 mm[Hg] [facility] Heart rate 2024-10-11 16:09:00 80 /min [facility] Body temperature 2024-10-11 16:09:00 36.39 Mera [facility] Respiratory rate 2024-10-11 16:09:00 16 /min [facility] Body weight 2024-10-11 16:09:00 71.668 kg [facility] BMI 2024-10-11 16:09:00 21.43 kg/m2 [facility] Oxygen saturation in Arterial blood by Pulse oximetry 2024-10-11 16:09:00 99 /min [facility] Systolic blood pressure 2024-09-13 18:52:00 131 mm[Hg] [facility] Diastolic blood pressure 2024-09-13 18:52:00 79 mm[Hg] [facility] Heart rate 2024-09-13 18:52:00 88 /min [facility] Body temperature 2024-09-13 18:52:00 36.67 Mera [facility] Respiratory rate 2024-09-13 18:52:00 20 /min [facility] Body weight 2024-09-13 18:52:00 68.947 kg [facility] BMI 2024-09-13 18:52:00 20.61 kg/m2 [facility] Oxygen saturation in Arterial blood by Pulse oximetry 2024-09-13 18:52:00 98 /min [facility] Systolic blood pressure 2024-09-07 15:59:00 108 mm[Hg] [facility] Diastolic blood pressure 2024-09-07 15:59:00 74 mm[Hg] [facility] Heart rate 2024-09-07 15:59:00 74 /min [facility] Respiratory rate 2024-09-07 15:08:00 16 /min [facility] Body height 2024-09-07 15:08:00 182.9 cm [facility] Body weight 2024-09-07 15:08:00 69.219 kg [facility] BMI 2024-09-07 15:08:00 20.70 kg/m2 [facility] Oxygen saturation in Arterial blood by Pulse oximetry 2024-09-07 15:08:00 98 /min [facility] Systolic blood pressure 2024-08-29 21:14:00 121 mm[Hg] [facility] Diastolic blood pressure 2024-08-29 21:14:00 68 mm[Hg] [facility] Heart rate 2024-08-29 21:11:00 104 /min [facility] Body temperature 2024-08-29 21:11:00 36.5 Mera [facility] Respiratory rate 2024-08-29 21:11:00 18 /min [facility] Body height 2024-08-29 21:11:00 182.9 cm [facility] Body weight 2024-08-29 21:11:00 69.219 kg [facility] BMI 2024-08-29 21:11:00 20.70 kg/m2 [facility] Oxygen saturation in Arterial blood by Pulse oximetry 2024-08-29 21:11:00 98 /min [facility] Systolic blood pressure 2024-08-29 19:41:00 140 mm[Hg] [facility] Diastolic blood pressure 2024-08-29 19:41:00 84 mm[Hg] [facility] Heart rate 2024-08-29 19:41:00 107 /min [facility] Body height 2024-08-29 19:39:00 182.9 cm [facility] Body weight 2024-08-29 19:39:00 69.4 kg [facility] BMI 2024-08-29 19:39:00 20.75 kg/m2 [facility] Oxygen saturation in Arterial blood by Pulse oximetry 2024-08-29 19:39:00 98 /min [facility] Body weight 2024-08-29 19:05:00 70.761 kg [facility] BMI 2024-08-29 19:05:00 21.16 kg/m2 [facility] Systolic blood pressure 2024-08-26 16:22:00 131 mm[Hg] [facility] Diastolic blood pressure 2024-08-26 16:22:00 70 mm[Hg] [facility] Heart rate 2024-08-26 16:22:00 100 /min [facility] Body temperature 2024-08-26 16:22:00 37.61 Mera [facility] Respiratory rate 2024-08-26 16:22:00 18 /min [facility] Oxygen saturation in Arterial blood by Pulse oximetry 2024-08-26 16:22:00 96 /min [facility] Body weight 2024-08-26 08:12:00 70.988 kg [facility] BMI 2024-08-26 08:12:00 21.23 kg/m2 [facility] Body height 2024-08-26 01:37:00 182.9 cm [facility] Systolic blood pressure 2024-08-25 12:35:00 130 mm[Hg] [facility] Diastolic blood pressure 2024-08-25 12:35:00 68 mm[Hg] [facility] Heart rate 2024-08-25 12:35:00 94 /min [facility] Body temperature 2024-08-25 12:35:00 36.78 Mera [facility] Respiratory rate 2024-08-25 12:35:00 17 /min [facility] Oxygen saturation in Arterial blood by Pulse oximetry 2024-08-25 12:35:00 96 /min [facility] Body weight 2024-08-25 08:07:00 69.99 kg [facility] BMI 2024-08-25 08:07:00 21.23 kg/m2 [facility] Systolic blood pressure 2024-08-23 21:40:00 154 mm[Hg] [facility] Diastolic blood pressure 2024-08-23 21:40:00 73 mm[Hg] [facility] Heart rate 2024-08-23 21:40:00 100 /min [facility] Respiratory rate 2024-08-23 21:40:00 16 /min [facility] Oxygen saturation in Arterial blood by Pulse oximetry 2024-08-23 21:40:00 99 /min [facility] Body temperature 2024-08-23 16:04:00 36.78 Mera [facility] Body height 2024-08-23 16:04:00 182.9 cm [facility] Body weight 2024-08-23 16:04:00 71.079 kg [facility] BMI 2024-08-23 16:04:00 21.25 kg/m2 [facility] Systolic blood pressure 2024-08-23 15:03:00 127 mm[Hg] [facility] Diastolic blood pressure 2024-08-23 15:03:00 83 mm[Hg] [facility] Heart rate 2024-08-23 15:03:00 99 /min [facility] Body temperature 2024-08-23 15:03:00 36.44 Mera [facility] Respiratory rate 2024-08-23 15:03:00 18 /min [facility] Body height 2024-08-23 15:03:00 182.9 cm [facility] Body weight 2024-08-23 15:03:00 71.169 kg [facility] BMI 2024-08-23 15:03:00 21.28 kg/m2 [facility] Oxygen saturation in Arterial blood by Pulse oximetry 2024-08-23 15:03:00 98 /min [facility] Systolic blood pressure 2024-08-15 17:57:00 131 mm[Hg] [facility] Diastolic blood pressure 2024-08-15 17:57:00 73 mm[Hg] [facility] Heart rate 2024-08-15 17:57:00 86 /min [facility] Body temperature 2024-08-15 17:57:00 36.61 Mera [facility] Respiratory rate 2024-08-15 17:57:00 16 /min [facility] Body height 2024-08-15 17:57:00 182.9 cm [facility] Body weight 2024-08-15 17:57:00 71.668 kg [facility] BMI 2024-08-15 17:57:00 21.43 kg/m2 [facility] Oxygen saturation in Arterial blood by Pulse oximetry 2024-08-15 17:57:00 100 /min [facility] Systolic blood pressure 2024-08-11 19:18:00 146 mm[Hg] [facility] Diastolic blood pressure 2024-08-11 19:18:00 83 mm[Hg] [facility] Heart rate 2024-08-11 19:18:00 82 /min [facility] Oxygen saturation in Arterial blood by Pulse oximetry 2024-08-11 19:18:00 97 /min [facility] Body temperature 2024-08-11 19:12:00 36.94 Mera [facility] Systolic blood pressure 2024-08-08 16:24:00 127 mm[Hg] [facility] Diastolic blood pressure 2024-08-08 16:24:00 75 mm[Hg] [facility] Heart rate 2024-08-08 16:24:00 75 /min [facility] Body height 2024-08-08 16:24:00 182.9 cm [facility] Body weight 2024-08-08 16:24:00 74.39 kg [facility] BMI 2024-08-08 16:24:00 22.24 kg/m2 [facility] Oxygen saturation in Arterial blood by Pulse oximetry 2024-08-08 16:24:00 97 /min [facility] Systolic blood pressure 2024-08-02 13:07:00 137 mm[Hg] [facility] Diastolic blood pressure 2024-08-02 13:07:00 80 mm[Hg] [facility] Heart rate 2024-08-02 13:07:00 80 /min [facility] Body temperature 2024-08-02 13:07:00 36.61 Mera [facility] Respiratory rate 2024-08-02 13:07:00 20 /min [facility] Body height 2024-08-02 13:07:00 185.4 cm [facility] Body weight 2024-08-02 13:07:00 74.39 kg [facility] BMI 2024-08-02 13:07:00 21.64 kg/m2 [facility] Oxygen saturation in Arterial blood by Pulse oximetry 2024-08-02 13:07:00 96 /min [facility] Systolic blood pressure 2024-07-25 16:34:00 140 mm[Hg] [facility] Diastolic blood pressure 2024-07-25 16:34:00 70 mm[Hg] [facility] Heart rate 2024-07-25 16:33:00 85 /min [facility] Body temperature 2024-07-25 16:33:00 37 Mera [facility] Respiratory rate 2024-07-25 16:33:00 18 /min [facility] Body height 2024-07-25 16:33:00 182.9 cm [facility] Body weight 2024-07-25 16:33:00 73.347 kg [facility] BMI 2024-07-25 16:33:00 21.93 kg/m2 [facility] Oxygen saturation in Arterial blood by Pulse oximetry 2024-07-25 16:33:00 99 /min [facility] Systolic blood pressure 2024-07-18 19:55:00 124 mm[Hg] [facility] Diastolic blood pressure 2024-07-18 19:55:00 75 mm[Hg] [facility] Heart rate 2024-07-18 19:55:00 83 /min [facility] Body temperature 2024-07-18 19:55:00 36.44 Mera [facility] Respiratory rate 2024-07-18 19:55:00 16 /min [facility] Body height 2024-07-18 19:55:00 182.9 cm [facility] Body weight 2024-07-18 19:55:00 70.126 kg [facility] BMI 2024-07-18 19:55:00 20.97 kg/m2 [facility] Oxygen saturation in Arterial blood by Pulse oximetry 2024-07-18 19:55:00 98 /min [facility] Systolic blood pressure 2024-07-12 18:17:00 135 mm[Hg] [facility] Diastolic blood pressure 2024-07-12 18:17:00 76 mm[Hg] [facility] Heart rate 2024-07-12 18:17:00 87 /min [facility] Body temperature 2024-07-12 18:17:00 36.72 Mera [facility] Respiratory rate 2024-07-12 18:17:00 20 /min [facility] Body height 2024-07-12 18:17:00 182.9 cm [facility] Body weight 2024-07-12 18:17:00 71.668 kg [facility] BMI 2024-07-12 18:17:00 21.43 kg/m2 [facility] Oxygen saturation in Arterial blood by Pulse oximetry 2024-07-12 18:17:00 97 /min [facility] Systolic blood pressure 2024-07-10 12:19:00 120 mm[Hg] [facility] Diastolic blood pressure 2024-07-10 12:19:00 74 mm[Hg] [facility] Heart rate 2024-07-10 12:19:00 81 /min [facility] Body temperature 2024-07-10 12:19:00 36.67 Mera [facility] Respiratory rate 2024-07-10 12:19:00 17 /min [facility] Oxygen saturation in Arterial blood by Pulse oximetry 2024-07-10 12:19:00 97 /min [facility] Body weight 2024-07-09 10:05:00 73.483 kg [facility] BMI 2024-07-09 10:05:00 21.97 kg/m2 [facility] Body height 2024-07-08 01:50:00 182.9 cm [facility] Systolic blood pressure 2024-07-07 18:52:00 125 mm[Hg] [facility] Diastolic blood pressure 2024-07-07 18:52:00 70 mm[Hg] [facility] Heart rate 2024-07-07 18:52:00 73 /min [facility] Body temperature 2024-07-07 18:52:00 36.83 Mera [facility] Respiratory rate 2024-07-07 18:52:00 18 /min [facility] Body height 2024-07-07 18:52:00 182.9 cm [facility] Body weight 2024-07-07 18:52:00 71.759 kg [facility] BMI 2024-07-07 18:52:00 21.46 kg/m2 [facility] Oxygen saturation in Arterial blood by Pulse oximetry 2024-07-07 18:52:00 98 /min [facility] Systolic blood pressure 2024-06-17 20:24:00 129 mm[Hg] [facility] Diastolic blood pressure 2024-06-17 20:24:00 79 mm[Hg] [facility] Heart rate 2024-06-17 20:24:00 81 /min [facility] Body height 2024-06-17 20:24:00 182.9 cm [facility] Body weight 2024-06-17 20:24:00 71.986 kg [facility] BMI 2024-06-17 20:24:00 21.52 kg/m2 [facility] Oxygen saturation in Arterial blood by Pulse oximetry 2024-06-17 20:24:00 98 /min [facility] Systolic blood pressure 2024-06-13 15:52:00 128 mm[Hg] [facility] Diastolic blood pressure 2024-06-13 15:52:00 80 mm[Hg] [facility] Heart rate 2024-06-13 15:52:00 78 /min [facility] Oxygen saturation in Arterial blood by Pulse oximetry 2024-06-13 15:52:00 98 /min [facility] Body temperature 2024-06-13 15:50:00 36.44 Mera [facility] Respiratory rate 2024-06-13 15:50:00 20 /min [facility] Body height 2024-06-13 15:50:00 182.9 cm [facility] Body weight 2024-06-13 15:50:00 72.207 kg [facility] BMI 2024-06-13 15:50:00 21.59 kg/m2 [facility] Body height 2024-06-02 19:31:00 182.9 cm [facility] Body weight 2024-06-02 19:31:00 72.122 kg [facility] BMI 2024-06-02 19:31:00 21.56 kg/m2 [facility] Systolic blood pressure 2024-05-26 18:08:00 124 mm[Hg] [facility] Diastolic blood pressure 2024-05-26 18:08:00 80 mm[Hg] [facility] Heart rate 2024-05-26 18:08:00 92 /min [facility] Body temperature 2024-05-26 18:08:00 36.78 Mera [facility] Respiratory rate 2024-05-26 18:08:00 18 /min [facility] Body height 2024-05-26 18:08:00 182.9 cm [facility] Body weight 2024-05-26 18:08:00 71.759 kg [facility] BMI 2024-05-26 18:08:00 21.46 kg/m2 [facility] Oxygen saturation in Arterial blood by Pulse oximetry 2024-05-26 18:08:00 96 /min [facility] Systolic blood pressure 2024-05-26 19:28:00 124 mm[Hg] [facility] Diastolic blood pressure 2024-05-26 19:28:00 80 mm[Hg] [facility] Heart rate 2024-05-26 19:28:00 92 /min [facility] Body temperature 2024-05-26 19:28:00 36.78 Mera [facility] Respiratory rate 2024-05-26 19:28:00 18 /min [facility] Body height 2024-05-26 19:28:00 182.9 cm [facility] Body weight 2024-05-26 19:28:00 71.804 kg [facility] BMI 2024-05-26 19:28:00 21.47 kg/m2 [facility] Oxygen saturation in Arterial blood by Pulse oximetry 2024-05-26 19:28:00 98 /min [facility] Systolic blood pressure 2024-04-14 20:11:00 139 mm[Hg] [facility] Diastolic blood pressure 2024-04-14 20:11:00 79 mm[Hg] [facility] Heart rate 2024-04-14 20:11:00 85 /min [facility] Body temperature 2024-04-14 20:11:00 36.78 Mera [facility] Respiratory rate 2024-04-14 20:11:00 20 /min [facility] Body height 2024-04-14 20:11:00 182.9 cm [facility] Body weight 2024-04-14 20:11:00 72.576 kg [facility] BMI 2024-04-14 20:11:00 21.70 kg/m2 [facility] Oxygen saturation in Arterial blood by Pulse oximetry 2024-04-14 20:11:00 97 /min [facility] Systolic blood pressure 2024-04-04 18:40:00 122 mm[Hg] his personal machine [facility] Diastolic blood pressure 2024-04-04 18:40:00 64 mm[Hg] his personal machine [facility] Heart rate 2024-04-04 18:40:00 87 /min [facility] Respiratory rate 2024-04-04 18:38:00 16 /min [facility] Body height 2024-04-04 18:38:00 182.9 cm [facility] Body weight 2024-04-04 18:38:00 70.081 kg [facility] BMI 2024-04-04 18:38:00 20.95 kg/m2 [facility] Oxygen saturation in Arterial blood by Pulse oximetry 2024-04-04 18:38:00 96 /min [facility] Systolic blood pressure 2024-03-29 18:53:00 121 mm[Hg] [facility] Diastolic blood pressure 2024-03-29 18:53:00 74 mm[Hg] [facility] Heart rate 2024-03-29 18:53:00 82 /min [facility] Body temperature 2024-03-29 18:53:00 36.72 Mera [facility] Respiratory rate 2024-03-29 18:53:00 15 /min [facility] Body weight 2024-03-29 18:53:00 72.349 kg [facility] BMI 2024-03-29 18:53:00 21.63 kg/m2 [facility] Oxygen saturation in Arterial blood by Pulse oximetry 2024-03-29 18:53:00 97 /min [facility] Systolic blood pressure 2024-03-24 16:12:00 125 mm[Hg] [facility] Diastolic blood pressure 2024-03-24 16:12:00 69 mm[Hg] [facility] Heart rate 2024-03-24 16:12:00 71 /min [facility] Body temperature 2024-03-24 16:12:00 36.28 Mera [facility] Respiratory rate 2024-03-24 16:12:00 18 /min [facility] Oxygen saturation in Arterial blood by Pulse oximetry 2024-03-24 16:12:00 96 /min [facility] Body weight 2024-03-24 08:43:00 73.426 kg [facility] BMI 2024-03-24 08:43:00 21.95 kg/m2 [facility] Body height 2024-03-22 10:28:00 182.9 cm [facility] Systolic blood pressure 2024-03-22 16:45:00 105 mm[Hg] [facility] Diastolic blood pressure 2024-03-22 16:45:00 56 mm[Hg] [facility] Heart rate 2024-03-22 16:45:00 88 /min [facility] Body temperature 2024-03-22 16:45:00 37.11 Mera [facility] Respiratory rate 2024-03-22 16:45:00 13 /min [facility] Oxygen saturation in Arterial blood by Pulse oximetry 2024-03-22 16:45:00 96 /min [facility] Body height 2024-03-22 10:28:00 182.9 cm [facility] Body weight 2024-03-22 10:28:00 72.7 kg [facility] BMI 2024-03-22 10:28:00 21.74 kg/m2 [facility] Systolic blood pressure 2024-03-10 19:51:00 129 mm[Hg] [facility] Diastolic blood pressure 2024-03-10 19:51:00 74 mm[Hg] [facility] Heart rate 2024-03-10 19:51:00 91 /min [facility] Body temperature 2024-03-10 19:49:00 36.78 Mera [facility] Respiratory rate 2024-03-10 19:49:00 20 /min [facility] Body height 2024-03-10 19:49:00 182.9 cm [facility] Body weight 2024-03-10 19:49:00 73.029 kg [facility] BMI 2024-03-10 19:49:00 21.84 kg/m2 [facility] Oxygen saturation in Arterial blood by Pulse oximetry 2024-03-10 19:49:00 97 /min [facility] Systolic blood pressure 2024-03-03 17:08:00 146 mm[Hg] [facility] Diastolic blood pressure 2024-03-03 17:08:00 82 mm[Hg] [facility] Heart rate 2024-03-03 17:07:00 75 /min [facility] Body temperature 2024-03-03 17:07:00 36.39 Mera [facility] Respiratory rate 2024-03-03 17:07:00 18 /min [facility] Body height 2024-03-03 17:07:00 182.9 cm [facility] Body weight 2024-03-03 17:07:00 73.936 kg [facility] BMI 2024-03-03 17:07:00 22.11 kg/m2 [facility] Oxygen saturation in Arterial blood by Pulse oximetry 2024-03-03 17:07:00 98 /min [facility] Systolic blood pressure 2024-03-03 13:42:00 134 mm[Hg] [facility] Diastolic blood pressure 2024-03-03 13:42:00 81 mm[Hg] [facility] Heart rate 2024-03-03 13:42:00 77 /min [facility] Respiratory rate 2024-03-03 13:42:00 18 /min [facility] Body height 2024-03-03 13:42:00 182.9 cm [facility] Body weight 2024-03-03 13:42:00 72.848 kg [facility] BMI 2024-03-03 13:42:00 21.78 kg/m2 [facility] Oxygen saturation in Arterial blood by Pulse oximetry 2024-03-03 13:42:00 98 /min [facility] Systolic blood pressure 2024-03-03 06:38:00 135 mm[Hg] [facility] Diastolic blood pressure 2024-03-03 06:38:00 75 mm[Hg] [facility] Heart rate 2024-03-03 06:38:00 77 /min [facility] Body temperature 2024-03-03 06:38:00 35.78 Mera [facility] Respiratory rate 2024-03-03 06:38:00 26 /min [facility] Oxygen saturation in Arterial blood by Pulse oximetry 2024-03-03 06:38:00 97 /min [facility] Body height 2024-03-03 04:21:00 182.9 cm [facility] Body weight 2024-03-03 04:21:00 73.936 kg [facility] BMI 2024-03-03 04:21:00 22.11 kg/m2 [facility] Systolic blood pressure 2024-02-25 17:44:00 130 mm[Hg] [facility] Diastolic blood pressure 2024-02-25 17:44:00 82 mm[Hg] [facility] Heart rate 2024-02-25 17:44:00 83 /min [facility] Body temperature 2024-02-25 17:44:00 36.61 Mera [facility] Respiratory rate 2024-02-25 17:44:00 18 /min [facility] Body height 2024-02-25 17:44:00 182.9 cm [facility] Body weight 2024-02-25 17:44:00 73.483 kg [facility] BMI 2024-02-25 17:44:00 21.97 kg/m2 [facility] Oxygen saturation in Arterial blood by Pulse oximetry 2024-02-25 17:44:00 97 /min [facility] Systolic blood pressure 2023-12-29 18:10:00 142 mm[Hg] [facility] Diastolic blood pressure 2023-12-29 18:10:00 72 mm[Hg] [facility] Heart rate 2023-12-29 18:10:00 65 /min [facility] Respiratory rate 2023-12-29 18:10:00 19 /min [facility] Body height 2023-12-29 18:10:00 182.9 cm [facility] Body weight 2023-12-29 18:10:00 77.61 kg [facility] BMI 2023-12-29 18:10:00 23.21 kg/m2 [facility] Oxygen saturation in Arterial blood by Pulse oximetry 2023-12-29 18:10:00 98 /min [facility] Systolic blood pressure 2023-12-28 15:14:00 135 mm[Hg] [facility] Diastolic blood pressure 2023-12-28 15:14:00 74 mm[Hg] [facility] Heart rate 2023-12-28 15:14:00 65 /min [facility] Body temperature 2023-12-28 15:14:00 36.39 Mera [facility] Respiratory rate 2023-12-28 15:14:00 18 /min [facility] Body height 2023-12-28 15:14:00 182.9 cm [facility] Body weight 2023-12-28 15:14:00 74.753 kg [facility] BMI 2023-12-28 15:14:00 22.35 kg/m2 [facility] Oxygen saturation in Arterial blood by Pulse oximetry 2023-12-28 15:14:00 98 /min [facility] Systolic blood pressure 2023-12-24 20:59:00 136 mm[Hg] [facility] Diastolic blood pressure 2023-12-24 20:59:00 71 mm[Hg] [facility] Heart rate 2023-12-24 20:59:00 70 /min [facility] Body temperature 2023-12-24 20:59:00 36.61 Mera [facility] Respiratory rate 2023-12-24 20:59:00 20 /min [facility] Body height 2023-12-24 20:59:00 182.9 cm [facility] Body weight 2023-12-24 20:59:00 76.204 kg [facility] BMI 2023-12-24 20:59:00 22.78 kg/m2 [facility] Oxygen saturation in Arterial blood by Pulse oximetry 2023-12-24 20:59:00 98 /min [facility] Systolic blood pressure 2023-12-11 18:16:00 141 mm[Hg] [facility] Diastolic blood pressure 2023-12-11 18:16:00 82 mm[Hg] [facility] Heart rate 2023-12-11 18:16:00 72 /min [facility] Body temperature 2023-12-11 18:16:00 36.33 Mera [facility] Body height 2023-12-11 18:16:00 182.9 cm [facility] Body weight 2023-12-11 18:16:00 75.297 kg [facility] BMI 2023-12-11 18:16:00 22.51 kg/m2 [facility] Oxygen saturation in Arterial blood by Pulse oximetry 2023-12-11 18:16:00 98 /min [facility] Systolic blood pressure 2023-11-27 21:36:00 136 mm[Hg] [facility] Diastolic blood pressure 2023-11-27 21:36:00 80 mm[Hg] [facility] Heart rate 2023-11-27 21:36:00 72 /min [facility] Body temperature 2023-11-27 21:36:00 36.61 Mera [facility] Respiratory rate 2023-11-27 21:36:00 17 /min [facility] Body height 2023-11-27 21:36:00 182.9 cm [facility] Body weight 2023-11-27 21:36:00 75.388 kg [facility] BMI 2023-11-27 21:36:00 22.54 kg/m2 [facility] Oxygen saturation in Arterial blood by Pulse oximetry 2023-11-27 21:36:00 98 /min [facility] Systolic blood pressure 2025-01-31 15:31:00 127 mm[Hg] [facility] Diastolic blood pressure 2025-01-31 15:31:00 78 mm[Hg] [facility] Heart rate 2025-01-31 15:31:00 74 /min [facility] Body temperature 2025-01-31 15:31:00 36.28 Mera [facility] Body height 2025-01-31 15:31:00 182.9 cm [facility] Body weight 2025-01-31 15:31:00 74.56 kg [facility] BMI 2025-01-31 15:31:00 22.29 kg/m2 [facility] Oxygen saturation in Arterial blood by Pulse oximetry 2025-01-31 15:31:00 99 /min [facility] Respiratory rate 2025-01-10 20:00:00 16 /min [facility] Procedures Procedure Date / Time Performed Performing Clinician Source TROPONIN I 2025-02-06 20:23:00 Adela Ward [facility] TRANSTHORACIC ECHO (TTE) COMPLETE W/ CONTRAST 2025-02-06 19:50:00 Adela Ward [facility] TROPONIN I 2025-02-06 17:05:00 Adela Ward [facility] BASIC METABOLIC PANEL (NA, K, CL, CO2, GLUCOSE, BUN, CREATININE, CA) 2025-02-06 17:05:00 Adela Ward [facility] LIPID PANEL (41004)(TOTAL CHOLESTEROL, TRIGLYCERIDES, HDL) 2025-02-06 17:05:00 Adela Ward [facility] CBC WITH DIFF 2025-02-06 17:05:00 Adela Ward [facility] GLYCOSYLATED HEMOGLOBIN (A1C) 2025-02-06 17:05:00 Adela Ward [facility] POCT GLUCOSE (AUTOMATED) 2025-02-06 17:04:00 Doc Ward [facility] SAMM,POST-VOID RES,US,NON-IMAGING 2025-01-31 00:00:00 Angella [facility] POCT URINALYSIS AUTO 2025-01-31 00:00:00 Cali Doll [facility] SAMM,POST-VOID RES,US,NON-IMAGING 2025-01-31 00:00:00 Alzweri, Lynn [facility] POCT URINALYSIS AUTO 2025-01-31 00:00:00 Cali Doll h [facility] CT ABDOMEN PELVIS W WO CONTRAST 2025-01-10 18:19:34 Alex Blanchard [facility] URINALYSIS 2025-01-10 16:26:00 [facility] 2025-01-10 16:24:00 [facility] COMP. METABOLIC PANEL (73063) 2025-01-10 16:24:00 Alex Blanchard [facility] PROTHROMBIN TIME / INR 2025-01-10 16:24:00 Silas Blanchard [facility] ACTIVATED PARTIAL THRMPLAS SHANTELL 2025-01-10 16:24:00 Alex Blanchard [facility] DME/SUPPLY JUSTIFICATION 2025-01-04 15:54:01 Doc tor Unassigned, Smarr [facility] POCT GLUCOSE (AUTOMATED) 2024-12-28 15:53:00 Srinivasan Andino [facility] POCT GLUCOSE (AUTOMATED) 2024-12-28 15:53:00 Srinivasan Andino [facility] POCT GLUCOSE (AUTOMATED) 2024-12-28 15:53:00 Srinivasan Andino [facility] COLONOSCOPY (ENDO) 2024-12-28 15:47:25 Joshua-Julian Catherine rochelle [facility] COLONOSCOPY (ENDO) 2024-12-28 15:47:25 Obi-Julian Catherine rochelle [facility] COLONOSCOPY (ENDO) 2024-12-28 15:47:25 Julian Toth rochelle [facility] SURGICAL PATHOLOGY EXAM 2024-12-28 15:06:00 Darcy Andino [facility] [id number] - [place] COLONOSCOPY W/BIOPSY SINGLE/MULTIPLE 2024-12-28 14:36:00 Mindy Andino [facility] [id number] - [place] COLONOSCOPY W/BIOPSY SINGLE/MULTIPLE 2024-12-28 14:36:00 Mindy Andino [facility] POCT GLUCOSE (AUTOMATED) 2024-12-28 14:32:00 Srinivasan Andino [facility] POCT GLUCOSE (AUTOMATED) 2024-12-28 14:32:00 Srinivasan Andino [facility] POCT GLUCOSE (AUTOMATED) 2024-12-28 14:32:00 Srinivasan Andino [facility] SAMM,POST-VOID RES,US,NON-IMAGING 2024-12-20 17:53:00 Angella [facility] SAMM,POST-VOID RES,US,NON-IMAGING 2024-12-20 17:53:00 Angella [facility] POCT URINALYSIS AUTO 2024-12-20 00:00:00 Angella [facility] POCT URINALYSIS AUTO 2024-12-20 00:00:00 [facility] 2024-11-16 22:27:00 Kiah Garcia [facility] COMP. METABOLIC PANEL (14719) 2024-11-16 22:27:00 Kiah Garcia [facility] CBC WITH DIFF 2024-11-16 22:27:00 Kiah Garcia [facility] INFLUENZA A/B RSV COVID NAAT 2024-11-16 22:27:00 Kiah Garcia [facility] CBC WITH DIFF 2024-11-16 22:27:00 Kiah Garcia [facility] COMP. METABOLIC PANEL ([id number]) 2024-11-16 22:27:00 Kiah Garcia [facility] TROPONIN I 2024-11-16 22:27:00 Kiah Garcia [facility] INFLUENZA A/B RSV COVID NAAT 2024-11-16 22:27:00 Kiah Garcia [facility] LAB ONLY COVID INTERPRETATION 2024-11-16 22:27:00 Kiah Garcia [facility] URINALYSIS 2024-11-16 21:20:00 Kiah Garcia [facility] URINALYSIS 2024-11-16 21:20:00 Kiah Garcia [facility] MICROALBUMIN URINE 2024-11-07 15:02:00 Julian Toth [facility] CBC WITH DIFF 2024-11-07 14:58:00 ObMarcel Thornton U [facility] COMP. METABOLIC PANEL (15430) 2024-11-07 14:58:00 Ob-Dorene, [facility] LIPID PANEL (41452)(TOTAL CHOLESTEROL, TRIGLYCERIDES, HDL) 2024-11-07 14:58:00 Ob-Dorene [facility] THYROID STIMULATING HORMONE 2024-11-07 14:58:00 Solo-Dorene [facility] FREE T4 2024-11-07 14:58:00 ObMarcel Thornton Un [facility] FREE T3 2024-11-07 14:58:00 Obwily-Marcel Catherine Un [facility] GLYCOSYLATED HEMOGLOBIN (A1C) 2024-11-07 14:58:00 Janey [facility] POCT URINALYSIS AUTO 2024-10-11 16:19:00 [facility] SAMM,POST-VOID RES,US,NON-IMAGING 2024-10-10 00:00:00 [facility] POCT URINALYSIS AUTO 2024-09-13 19:08:00 Angella [facility] SAMM,POST-VOID RES,US,NON-IMAGING 2024-09-13 19:07:00 Angella [facility] POCT GLUCOSE (AUTOMATED) 2024-08-26 16:29:00 Senthil Madden [facility] POCT GLUCOSE (AUTOMATED) 2024-08-26 16:29:00 Senthil Madden [facility] POCT GLUCOSE (AUTOMATED) 2024-08-26 12:32:00 Senthil Madden [facility] POCT GLUCOSE (AUTOMATED) 2024-08-26 12:32:00 Senthil Madden [facility] BASIC METABOLIC PANEL (NA, K, CL, CO2, GLUCOSE, BUN, CREATININE, CA) 2024-08-26 08:19:00 [facility] 2024-08-26 08:19:00 [facility] BASIC METABOLIC PANEL (NA, K, CL, CO2, GLUCOSE, BUN, CREATININE, CA) 2024-08-26 08:19:00 [facility]FF 2024-08-26 08:19:00 Miguel A Maddeni Yousif [facility] POCT GLUCOSE (AUTOMATED) 2024-08-26 01:37:00 Senthil Madden [facility] POCT GLUCOSE (AUTOMATED) 2024-08-26 01:37:00 Senthil Madden [facility] POCT GLUCOSE (AUTOMATED) 2024-08-25 21:35:00 Senthil Madden [facility] POCT GLUCOSE (AUTOMATED) 2024-08-25 21:35:00 Senthil Madden [facility] POCT GLUCOSE (AUTOMATED) 2024-08-25 18:34:00 Senthil Madden [facility] POCT GLUCOSE (AUTOMATED) 2024-08-25 18:34:00 Senthil Madden [facility] URINE CULTURE 2024-08-25 15:50:00 [facility] URINE CULTURE 2024-08-25 15:50:00 Angella [facility] [id number] - [place] LASER ENUCLEATION PROSTATE W/MORCELLATION 2024-08-25 14:54:00 Angella [facility] [address] - [place] LASER ENUCLEATION PROSTATE W/MORCELLATION 2024-08-25 14:54:00 Angella [facility] POCT GLUCOSE (AUTOMATED) 2024-08-25 12:46:00 Senthil Madden [facility] POCT GLUCOSE (AUTOMATED) 2024-08-25 12:46:00 Senthil Madden [facility] BASIC METABOLIC PANEL (NA, K, CL, CO2, GLUCOSE, BUN, CREATININE, CA) 2024-08-25 09:26:00 [facility]FF 2024-08-25 09:26:00 [facility] BASIC METABOLIC PANEL (NA, K, CL, CO2, GLUCOSE, BUN, CREATININE, CA) 2024-08-25 09:26:00 [facility]FF 2024-08-25 09:26:00 Chano [facility] BASIC METABOLIC PANEL (NA, K, CL, CO2, GLUCOSE, BUN, CREATININE, CA) 2024-08-25 02:41:[address] [facility] CBC WITH DIFF 2024-08-25 02:41:00 Chano [facility] GLYCOSYLATED HEMOGLOBIN (A1C) 2024-08-25 02:41:[address] [facility] BASIC METABOLIC PANEL (NA, K, CL, CO2, GLUCOSE, BUN, CREATININE, CA) 2024-08-25 02:41:[address] [facility] CBC WITH DIFF 2024-08-25 02:41:00 Chano [facility] GLYCOSYLATED HEMOGLOBIN (A1C) 2024-08-25 02:41:00 [facility] ([facility]OMATED) 2024-08-25 02:01:00 Senthil Madden [facility] POCT GLUCOSE (AUTOMATED) 2024-08-25 02:01:00 Senthil Madden [facility] COMP. METABOLIC PANEL (17116) 2024-08-23 16:50:00 Sandro Ramirez [facility] CBC WITH DIFF 2024-08-23 16:50:00 Sandro Ramirez [facility] URINALYSIS 2024-08-23 16:50:00 Sandro Ramirez [facility] SAMM,POST-VOID RES,US,NON-IMAGING 2024-08-16 19:33:[address] [facility] PO[facility] ([facility]OMATED) 2024-08-15 20:52:00 Cristy Zapata [facility] POCT GLUCOSE (AUTOMATED) 2024-08-15 20:18:00 Cristy Zapata [facility] URINALYSIS 2024-08-15 18:41:00 Wayne [facility]ata [facility] URINE CULTURE 2024-08-11 20:24:00 [facility] POCT URINALYSIS AUTO 2024-08-02 13:36:00 [facility] SAMM,POST-VOID RES,US,NON-IMAGING 2024-08-02 00:00:00 [facility] POCT URINALYSIS AUTO 2024-07-12 18:34:00 [facility] SAMM,POST-VOID RES,US,NON-IMAGING 2024-07-12 00:00:[address] [facility] PO[facility] GLUCOSE (AUTOMATED) 2024-07-10 13:24:00 Marc [facility] POCT GLUCOSE (AUTOMATED) 2024-07-10 05:20:00 Marc [facility] POCT GLUCOSE (AUTOMATED) 2024-07-10 02:13:00 Marc [facility] POCT GLUCOSE (AUTOMATED) 2024-07-09 22:04:00 Marc [facility] POCT GLUCOSE (AUTOMATED) 2024-07-09 16:22:00 Marc [facility] POCT GLUCOSE (AUTOMATED) 2024-07-09 13:26:00 Marc [facility] POCT GLUCOSE (AUTOMATED) 2024-07-09 06:44:00 Marc [facility] POCT GLUCOSE (AUTOMATED) 2024-07-09 01:40:00 Marc [facility] POCT GLUCOSE (AUTOMATED) 2024-07-08 22:36:00 Marc [facility] TRANSTHORACIC ECHO (TTE) COMPLETE W/ CONTRAST 2024-07-08 20:45:49 April Hernandez [facility] MR STROKE BRAIN WO CONTRAST 2024-07-08 19:40:00 Anita Field [facility] POCT GLUCOSE (AUTOMATED) 2024-07-08 17:14:00 Marc [facility] VERIFYNOW ASPIRIN TEST 2024-07-08 16:38:00 Lupillo Hernandez [facility] POCT GLUCOSE (AUTOMATED) 2024-07-08 13:19:00 Marc [facility] POCT GLUCOSE (AUTOMATED) 2024-07-08 10:54:00 Anita Field [facility] POCT GLUCOSE (AUTOMATED) 2024-07-08 02:04:00 Yannick [facility] LIPID PANEL (03336)(TOTAL CHOLESTEROL, TRIGLYCERIDES, HDL) 2024-07-08 00:38:00 Anita Field [facility] CT ANGIOGRAM HEAD 2024-07-08 00:10:00 Juan Calvillo [facility] CT HEAD WO CONTRAST 2024-07-08 00:10:00 Juan Calivllo [facility] CT ANGIOGRAM NECK 2024-07-08 00:10:00 Juan Calvillo [facility] TROPONIN I 2024-07-07 22:14:00 Juan Calvillo [facility] BASIC METABOLIC PANEL (NA, K, CL, CO2, GLUCOSE, BUN, CREATININE, CA) 2024-07-07 22:14:00 Juan Calvillo [facility] CBC WITH DIFF 2024-07-07 22:14:00 Juan Calvillo [facility] ABDOMINAL AORTA SCREEN AAA 2024-06-02 15:12:33 Janey [facility] ABDOMINAL AORTA SCREEN AAA 2024-06-02 15:12:33 Janey [facility] FREE T4 2024-05-31 16:39:00 Marcel Toth [facility] THYROID STIMULATING HORMONE 2024-05-31 16:39:00 Obi-Droene [facility] MICROALBUMIN URINE 2024-05-31 16:39:00 [facility] tong [facility] COMP. METABOLIC PANEL (64315) 2024-05-31 16:39:00 [facility], [facility] LIPID PANEL (78676)(TOTAL CHOLESTEROL, TRIGLYCERIDES, HDL) 2024-05-31 16:39:00 [facility] CBC WITH DIFF 2024-05-31 16:39:00 [facility] GLYCOSYLATED HEMOGLOBIN (A1C) 2024-05-31 16:39:00 [facility] FREE T3 2024-05-31 16:39:00 [facility] CAROTID DUPLEX BILATERAL - BY VASCULAR LAB 2024-05-24 18:21:09 Ron Hoover [facility] POCT GLUCOSE (AUTOMATED) 2024-03-24 13:41:00 Sneha [facility] PHOSPHORUS 2024-03-24 09:31:00 Ed Hadley [facility] POCT GLUCOSE (AUTOMATED) 2024-03-23 21:55:00 Sneha [facility] POCT GLUCOSE (AUTOMATED) 2024-03-23 20:49:00 Sneha [facility] POCT GLUCOSE (AUTOMATED) 2024-03-23 16:48:00 Sneha [facility] POCT GLUCOSE (AUTOMATED) 2024-03-23 16:48:00 Sneha [facility] POCT GLUCOSE (AUTOMATED) 2024-03-23 12:34:00 Sneha [facility] POCT GLUCOSE (AUTOMATED) 2024-03-23 12:34:00 Sneha [facility] PHOSPHORUS 2024-03-23 07:57:00 Ed Hadley [facility] MAGNESIUM 2024-03-23 07:57:00 Ed Hadley [facility] IONIZED CALCIUM 2024-03-23 07:57:00 Ruby Fabian [facility] BASIC METABOLIC PANEL (NA, K, CL, CO2, GLUCOSE, BUN, CREATININE, CA) 2024-03-23 07:57:00 [facility] 2024-03-23 07:57:00 Ed Hadley [facility] PHOSPHORUS 2024-03-23 07:57:00 Ed Hadley [facility] MAGNESIUM 2024-03-23 07:57:00 Jomar [facility] IONIZED CALCIUM 2024-03-23 07:57:00 Ruby Fabian [facility] BASIC METABOLIC PANEL (NA, K, CL, CO2, GLUCOSE, BUN, CREATININE, CA) 2024-03-23 07:57:00 Jomar [facility] CBC WITH DIFF 2024-03-23 07:57:00 Ed Hadley [facility] POCT GLUCOSE (AUTOMATED) 2024-03-23 02:15:00 Sneha [facility] POCT GLUCOSE (AUTOMATED) 2024-03-23 02:15:00 Sneha, [facility] POCT GLUCOSE (AUTOMATED) 2024-03-22 22:22:00 Sneha, [facility] POCT GLUCOSE (AUTOMATED) 2024-03-22 22:22:00 Sneha, [facility] POCT GLUCOSE (AUTOMATED) 2024-03-22 18:10:00 Sneha, [facility] POCT GLUCOSE (AUTOMATED) 2024-03-22 18:10:00 Sneha [facility] PHOSPHORUS 2024-03-22 16:30:00 Jerel Sandy [facility] MAGNESIUM 2024-03-22 16:30:00 Jerel Sandy [facility] BASIC METABOLIC PANEL (NA, K, CL, CO2, GLUCOSE, BUN, CREATININE, CA) 2024-03-22 16:30:00 [facility] WITH DIFF 2024-03-22 16:30:00 Ed Hadley [facility] MRSA / MSSA SCREEN BY PCR, NARRUDY 2024-03-22 16:30:00 Ed Hadley [facility] PHOSPHORUS 2024-03-22 16:30:00 VikaSukhiw [facility] MAGNESIUM 2024-03-22 16:30:00 Jerel Sandy [facility] BASIC METABOLIC PANEL (NA, K, CL, CO2, GLUCOSE, BUN, CREATININE, CA) 2024-03-22 16:30:00 Ed Hadley [facility] CBC WITH DIFF 2024-03-22 16:30:00 Ed Hadley [facility] MRSA / MSSA SCREEN BY PCR, KIT 2024-03-22 16:30:00 Ed Hadley [facility] POCT GLUCOSE (AUTOMATED) 2024-03-22 16:28:00 [facility]) 2024-03-22 16:28:00 Christi Hoover [facility] CAROTID ENDARTERECTOMY 2024-03-22 12:05:00 Ernesto Hoover [facility] CAROTID ENDARTERECTOMY 2024-03-22 12:05:00 Ernesto Hoover [facility] ABORH CONFIRMATION (LAB ONLY) 2024-03-22 10:59:00 Graciela [facility] ABORH CONFIRMATION (LAB ONLY) 2024-03-22 10:59:00 Graciela Monica [facility] POCT GLUCOSE(AGE >30DAYS) 2024-03-22 10:49:00 Monica Owens [facility] POCT GLUCOSE(AGE >30DAYS) 2024-03-22 10:49:00 Monica Owens [facility] POCT GLUCOSE (AUTOMATED) 2024-03-22 10:48:00 Christi Hoover [facility] POCT GLUCOSE (AUTOMATED) 2024-03-22 10:48:00 Christi Hoover [facility] HB ABO GROUPING 2024-03-19 15:46:00 Ron Hoover [facility] HOME HEALTH - OTHER 2024-03-18 17:24:19 Doctor Jean-Pierre vu, Smarr [facility] EKG-12 LEAD 2024-03-03 06:28:35 Rosalva Finch [facility] POCT GLUCOSE (AUTOMATED) 2024-03-03 06:01:00 [facility] CT HEAD WO CONTRAST 2024-03-03 05:06:59 Gee Finch [facility] TROPONIN I 2024-03-03 04:41:00 Rosalva Finch [facility] BASIC METABOLIC PANEL (NA, K, CL, CO2, GLUCOSE, BUN, CREATININE, CA) 2024-03-03 04:41:00 Dao [facility] CBC WITH DIFF 2024-03-03 04:41:00 Dao [facility] POCT GLUCOSE (AUTOMATED) 2024-03-03 04:15:00 Gladis Finch [facility] HCV ANTIBODY 2024-02-22 18:22:00 Pat Chaidez [facility] DME/SUPPLY JUSTIFICATION 2024-02-22 17:07:53 Doc juan Unassigned, Smarr [facility] EXTERNAL PROVIDER RECORDS 2024-01-12 05:01:00 Do ctor Unassigned, Smarr [facility] AUTHORIZATION TO RELEASE PHI TO [facility] 2023-12-29 06:01:00 Doctor Unassigned, Smarr [facility] HB ECG ROUTINE & RHYTHM STRIP 2023-12-28 15:18:11 Allyson Fink [facility] DME/SUPPLY JUSTIFICATION 2023-12-07 06:01:00 Doc tor Unassigned, Smarr [facility] ASSIGNMENT OF BENEFITS 2023-11-27 21:19:25 Docto r Unassigned, Smarr [facility] Encounters Start Date/Time End Date/Time Encounter Type Admission Type Attending [facility] Care Department Encounter ID Source 2024-08-12 09:01:35 Outpatient R LYNN DOLL [facility] [id number] [facility] 2025-02-22 00:00:00 2025-02-22 00:00:00 [id number] 2025-02-07 00:00:00 2025-02-07 15:03:28 Transition of Care Yaz [facility] A SHEARN MOODY LILIAM 1.2.840.114 350.1.13.10 4.2.7.2.686 [id number] [facility] 2025-02-07 13:30:00 2025-02-07 13:30:00 Outpatient R LYNN DOLL [facility] [id number] [facility] 2025-02-06 00:00:00 2025-02-06 16:51:45 Telephone [facility] BUILDING 1.2.840.114 350.1.13.10 4.2.7.2.686 [id number] [facility] 2025-02-06 11:10:00 2025-02-06 16:35:00 Hospital Encounter Adela Ward [facility] 1.2.840.114 350.1.13.10 4.2.7.2.686 [id number] [facility] 2025-02-06 09:40:00 2025-02-06 09:46:50 [facility] 1.2.840.114 350.1.13.10 4.2.7.2.686 [id number] [facility] 2025-02-06 08:20:00 2025-02-06 09:00:42 Outpatient R OBI-MARCEL CATHERINE OBI-MARCEL CATHERINE [facility] [id number] [facility] 2025-02-06 08:20:2025-02-06 09:00:42 Office [address] Marcel Toth [facility] 1.2.840.114 350.1.13.10 4.2.7.2.686 [id number] [facility] 2025-02-01 00:00:00 2025-02-01 00:00:00 Patient Secure Msg Doctor Unassigned, Smarr 1.2.840.1 [id number] 3.104.2.7 .3.774933 .8 [id number] [facility] 2025-01-31 00:00:00 2025-01-31 23:33:59 Telephone Marcel Toth 1.2.840.1 63281.1.1 3.104.2.7 .3.677221 .8 [id number] [facility] 2025-01-31 00:00:00 2025-01-31 16:26:32 Telephone Lynn Doll 1.2.840.1 [id number] 3.104.2.7 .3.884923 .8 [id number] [facility] 2025-01-31 10:15:00 2025-01-31 10:30:00 Office Visit Lynn Doll 1.2.840.1 40483.1.1 3.104.2.7 .3.691292 .8 [id number] [facility] 2025-01-31 10:15:00 2025-01-31 10:15:00 Outpatient R LYNN DOLL [facility] [id number] [facility] 2025-01-30 10:15:00 2025-01-30 12:57:35 Outpatient R ORVILLE SHAW CRAIG [facility] [id number] [facility] 2025-01-30 10:15:00 2025-01-30 12:57:35 Ancillary Visit [facility] 1.2.840.1 91905.1.1 3.104.2.7 .3.233274 .8 [id number] [facility] 2025-01-30 00:00:00 2025-01-30 00:00:00 Travel 1.2.840.1 [id number] 3.104.2.7 .3.510965 .8 1.2.840.114 350.1.13.10 4.2.7.3.698 [id number] [facility] 2025-01-26 00:00:00 2025-01-27 16:03:51 Telephone Marcel Toth 1.2.840.1 [id number] 3.104.2.7 .3.872555 .8 [id number] [facility] 2025-01-26 00:00:00 2025-01-26 11:13:30 Patient Outreach Shelby Obrien 1.2.840.1 19095.1.1 3.104.2.7 .3.628244 .8 [id number] [facility] 2025-01-26 00:00:00 2025-01-26 08:56:18 Patient Secure Msg Marcel Toth 1.2.840.1 [id number] 3.104.2.7 .3.231607 .8 [id number] [facility] 2025-01-23 16:15:00 2025-01-23 16:15:00 Outpatient SALEEM WEINBERG BRENT [facility] [id number] [facility] 2025-01-23 00:00:00 2025-01-23 11:34:33 Telephone Mindy Andino 1.2.840.1 [id number] 3.104.2.7 .3.964958 .8 [id number] [facility] 2025-01-21 00:00:00 2025-01-21 00:00:00 Travel 1.2.840.1 22931.1.1 3.104.2.7 .3.613900 .8 1.2.840.114 350.1.13.10 4.2.7.3.698 [id number] [facility] 2025-01-17 16:00:00 2025-01-17 16:52:08 Outpatient R ORVILLE SHAW CRAIG [facility] [id number] [facility] 2025-01-17 16:00:00 2025-01-17 16:52:08 Ancillary Visit [facility] 1.2.840.1 67047.1.1 3.104.2.7 .3.392717 .8 [id number] [facility] 2025-01-17 00:00:00 2025-01-17 00:00:00 Travel 1.2.840.1 [id number] 3.104.2.7 .3.547682 .8 1.2.840.114 350.1.13.10 4.2.7.3.698 [id number] [facility] 2025-01-16 09:45:00 2025-01-16 09:45:00 Outpatient R HALINA VEGAS [facility] [id number] [facility] 2025-01-06 00:00:00 2025-01-15 13:40:37 Patient Secure Msg Doctor Unassigned, Smarr 1.2.840.1 54761.1.1 3.104.2.7 .3.177712 .8 [id number] [facility] 2025-01-10 11:08:00 2025-01-10 16:32:00 Emergency X LO, ALEX LO, ALEX [facility] ERT [id number] [facility] 2025-01-10 11:08:00 2025-01-10 16:32:00 Emergency Behzadi, Alex A 1.2.840.1 57131.1.1 3.104.2.7 .3.158515 .8 [id number] [facility] 2025-01-04 00:00:00 2025-01-10 02:04:43 Orders Only Doctor Unassigned, Smarr 1.2.840.1 21345.1.1 3.104.2.7 .3.738121 .8 [id number] [facility] 2025-01-10 00:00:00 2025-01-10 00:00:00 Travel 1.2.840.1 20878.1.1 3.104.2.7 .3.483216 .8 1.2.840.114 350.1.13.10 4.2.7.3.698 084.8 [id number] [facility] 2025-01-06 00:00:00 2025-01-06 16:16:34 Patient Secure Msg Doctor Unassigned, Smarr 1.2.840.1 73307.1.1 3.104.2.7 .3.788088 .8 [id number] [facility] 2025-01-05 00:00:00 2025-01-05 16:29:14 Telephone Marcel Toth 1.2.840.1 08680.1.1 3.104.2.7 .3.180015 .8 [id number] [facility] 2025-01-02 00:00:00 2025-01-04 08:07:52 Patient Secure Msg ObMarcel Thornton 1.2.840.1 66149.1.1 3.104.2.7 .3.682304 .8 [id number] [facility] 2024-12-30 00:00:00 2024-12-30 16:26:23 Telephone Lynn Doll 1.2.840.1 42433.1.1 3.104.2.7 .3.768199 .8 [id number] [facility] 2024-12-29 13:00:00 2024-12-29 13:30:43 Office Visit Allyson Fink 1.2.840.1 23397.1.1 3.104.2.7 .3.644709 .8 [id number] [facility] 2024-12-29 13:00:00 2024-12-29 13:00:00 Outpatient R ALLYSON FINK [facility] [id number] [facility] 2024-12-29 00:00:00 2024-12-29 00:00:00 Travel 1.2.840.1 33024.1.1 3.104.2.7 .3.305050 .8 1.2.840.114 350.1.13.10 4.2.7.3.698 084.8 [id number] [facility] 2024-12-28 08:15:00 2024-12-28 11:40:00 Outpatient R MINDY ANDINO MINDY [facility] CAROLYN [id number] [facility] 2024-12-28 08:15:00 2024-12-28 11:40:00 Hospital Encounter Mindy Andino 1.2.840.1 48489.1.1 3.104.2.7 .3.618773 .8 [id number] [facility] 2024-12-28 08:50:00 2024-12-28 09:55:00 Surgery Mindy Andino 1.2.840.1 89133.1.1 3.104.2.7 .3.644095 .8 [id number] [facility] 2024-12-28 08:46:00 2024-12-28 09:45:00 Anesthesia Event Brennen Abbott Joshua 1.2.840.1 77745.1.1 3.104.2.7 .3.489608 .8 [id number] [facility] 2024-12-26 00:00:00 2024-12-26 13:26:58 Refill SolowilyMarcel Bragg 1.2.840.1 29287.1.1 3.104.2.7 .3.799991 .8 [id number] [facility] 2024-12-22 00:00:00 2024-12-22 13:46:07 Telephone Lynn Doll 1.2.840.1 49389.1.1 3.104.2.7 .3.644809 .8 [id number] [facility] 2024-12-20 00:00:00 2024-12-20 17:41:57 Telephone Lynn Doll 1.2.840.1 03456.1.1 3.104.2.7 .3.106955 .8 [id number] [facility] 2024-12-20 11:45:00 2024-12-20 13:16:33 Outpatient R LYNN DOLL [facility] [id number] [facility] 2024-12-20 11:45:00 2024-12-20 13:16:33 Office Visit Lynn Doll 1.2.840.1 79502.1.1 3.104.2.7 .3.838931 .8 [id number] [facility] 2024-12-19 00:00:00 2024-12-19 00:00:00 Travel 1.2.840.1 01941.1.1 3.104.2.7 .3.203838 .8 1.2.840.114 350.1.13.10 4.2.7.3.698 084.8 [id number] [facility] 2024-12-12 00:00:00 2024-12-13 19:19:40 Telephone Marcel Toth 1.2.840.1 93530.1.1 3.104.2.7 .3.569655 .8 [id number] [facility] 2024-12-12 00:00:00 2024-12-13 11:45:29 RefAllyson Delgado 1.2.840.1 07179.1.1 3.104.2.7 .3.074414 .8 [id number] [facility] 2024-11-08 00:00:00 2024-12-10 18:19:20 Patient Secure Msg Obi-Marcel Catherine 1.2.840.1 84400.1.1 3.104.2.7 .3.209116 .8 [id number] [facility] 2024-03-18 00:00:00 2024-12-10 07:42:05 Orders Only Doctor Unassigned, Smarr Doctor Unassigned, Smarr [facility] 1.2840.114 350.1.13.10 4.2.7.2.686 [id number] 009 [id number] [facility] 2024-07-22 00:00:00 2024-12-10 06:54:43 Orders Only Gabreilla Nobles S Rafa Noblesria S [facility] 1.2840.114 350.1.13.10 4.2.7.2.686 [id number] [facility] 2024-02-22 00:00:00 2024-12-10 02:09:54 Orders Only Doctor Unassigned, Smarr Doctor Unassigned, Smarr [facility] 1.2840.114 350.1.13.10 4.2.7.2.686 [id number] 009 [id number] [facility] 2024-12-06 13:00:00 2024-12-06 13:49:37 Outpatient ORVILLE DONIS CRAIG [facility] [id number] [facility] 2024-12-06 13:00:00 2024-12-06 13:49:37 Ancillary Visit [facility]ville [facility] 1.2.840.1 82669.1.1 3.104.2.7 .3.672392 .8 [id number] [facility] 2024-12-06 11:40:00 2024-12-06 12:53:01 Outpatient LASHA DELCID HOWARD [facility] [id number] [facility] 2024-12-06 11:40:00 2024-12-06 12:53:01 Office Visit Lasha Aguilar 1.2.840.1 03661.1.1 3.104.2.7 .3.638396 .8 [id number] [facility] 2024-12-06 10:40:00 2024-12-06 10:40:00 Outpatient LASHA DELCID HOWARD [facility] [id number] [facility] 2024-12-06 00:00:00 2024-12-06 00:00:00 Travel 1.2.840.1 71638.1.1 3.104.2.7 .3.323668 .8 1.2.840.114 350.1.13.10 4.2.7.3.698 084.8 [id number] [facility] 2024-11-24 16:15:00 2024-11-24 16:15:00 Outpatient HALINA LOMELI [facility] [id number] [facility] 2024-11-22 16:00:00 2024-11-22 16:59:18 Outpatient ORVILLE DONIS CRAIG [facility] [id number] [facility] 2024-11-22 16:00:00 2024-11-22 16:59:18 Ancillary Visit Orville [facility] 1.2.840.1 85039.1.1 3.104.2.7 .3.860901 .8 [id number] [facility] 2024-11-21 00:00:00 2024-11-21 20:52:05 RefMarcel Brothers 1.2.840.1 61783.1.1 3.104.2.7 .3.149123 .8 [id number] [facility] 2024-11-11 00:00:00 2024-11-17 08:29:53 Telephone Bobbi Saunders 1.2.840.1 66518.1.1 3.104.2.7 .3.179120 .8 [id number] [facility] 2024-11-16 14:19:00 2024-11-16 18:15:00 Emergency X KIAH GARCIA ROBERT [facility] [id number] [facility] 2024-11-16 14:19:00 2024-11-16 18:15:00 Emergency Kiah Garcia 1.2.840.1 13837.1.1 3.104.2.7 .3.832953 .8 [id number] [facility] 2024-11-16 00:00:00 2024-11-16 00:00:00 Travel 1.2.840.1 19377.1.1 3.104.2.7 .3.243319 .8 1.2.840.114 350.1.13.10 4.2.7.3.698 084.8 [id number] [facility] 2024-11-11 08:30:00 2024-11-11 09:17:17 Outpatient R BOBBI SAUNDERS [facility] [id number] [facility] 2024-11-11 08:30:00 2024-11-11 09:17:17 Office Visit Bobbi Saunders 1.2.840.1 68723.1.1 3.104.2.7 .3.217101 .8 [id number] [facility] 2024-11-11 00:00:00 2024-11-11 00:00:00 Scanned Documents Doctor Unassigned, Smarr 1.2.840.1 21779.1.1 3.104.2.7 .3.275643 .8 [id number] [facility] 2024-11-11 00:00:00 2024-11-11 00:00:00 Travel 1.2.840.1 57567.1.1 3.104.2.7 .3.212600 .8 1.2.840.114 350.1.13.10 4.2.7.3.698 084.8 [id number] [facility] 2024-11-09 00:00:00 2024-11-09 14:07:28 Refill Don Pat 1.2.840.1 24505.1.1 3.104.2.7 .3.595901 .8 [id number] [facility] 2024-11-09 00:00:00 2024-11-09 11:28:53 Telephone Marcel Toth 1.2.840.1 55008.1.1 3.104.2.7 .3.080461 .8 [id number] [facility] 2024-11-07 00:00:00 2024-11-08 08:03:49 Patient Secure Msg Marcel Toth 1.2.840.1 42641.1.1 3.104.2.7 .3.393542 .8 [id number] [facility] 2024-11-07 09:00:00 2024-11-07 09:02:19 Engineering 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 Marcel Toth 2, [facility] 1.2.840.1 81808.1.1 3.104.2.7 .3.256862 .8 [id number] [facility] 2024-11-07 08:00:00 2024-11-07 08:39:08 Outpatient R MARCEL TOTH UZOMA [facility] [id number] [facility] 2024-11-07 08:00:00 2024-11-07 08:39:08 Office Visit Marcel Toth 1.2.840.1 84901.1.1 3.104.2.7 .3.843411 .8 [id number] [facility] 2024-11-07 00:00:00 2024-11-07 00:00:00 Travel 1.2.840.1 66051.1.1 3.104.2.7 .3.744183 .8 1.2.840.114 350.1.13.10 4.2.7.3.698 084.8 [id number] [facility] 2024-10-28 14:30:00 2024-10-28 14:30:00 Outpatient R JONY MASHALEADOMINIK [facility] [id number] [facility] 2024-10-11 00:00:00 2024-10-11 13:46:03 Telephone Marcel Toth [facility] 1.2.840.114 350.1.13.10 4.2.7.2.686 [id number] 044 [id number] [facility] 2024-10-11 10:00:00 2024-10-11 11:01:38 Outpatient R MAURY DOLLTH [facility] [id number] [facility] 2024-10-11 10:00:00 2024-10-11 11:01:38 Office Visit Lynn Doll [facility] 1.2.840.114 350.1.13.10 4.2.7.2.686 [id number] 204 [id number] [facility] 2024-10-10 15:00:00 2024-10-10 15:30:00 Nurse Visit Nurse, [facility] Surgery Lynn Doll Nurse, [facility] Surgery [facility] 1.840.114 350.1.13.10 4.2.7.2.686 [id number] 204 [id number] [facility] 2024-10-10 15:00:00 2024-10-10 15:00:00 Outpatient R [facility] [id number] [facility] 2024-10-06 00:00:00 2024-10-07 17:39:52 Telephone Angella [facility] 1.84.114 350.1.13.10 4.2.7.2.686 [id number] 204 [id number] [facility] 2024-10-04 00:00:00 2024-10-04 13:33:26 Patient Outreach Shelby Obrien Jocelyn [facility] 1..840.114 350.1.13.10 4.2.7.2.686 [id number] 044 [id number] [facility] 2024-10-04 13:00:00 2024-10-04 13:00:00 Outpatient R ALLYSON FINK [facility] [id number] [facility] 2024-09-28 11:20:00 2024-09-28 11:20:00 Outpatient R OBI-DORENE , MARCEL OBI-DORENE , MARCEL [facility] [id number] [facility] 2024-08-22 00:00:00 2024-09-24 18:22:39 Patient Secure Msg Lynn Doll [facility] 1.840.114 350.1.13.10 4.2.7.2.686 [id number] [facility] 2024-08-23 00:00:00 2024-09-24 18:21:14 Patient Secure Msg Obi-Dorene , Marcel [facility] 1.2.840.114 350.1.13.10 4.2.7.2.686 [id number] 044 [id number] [facility] 2024-08-23 00:00:00 2024-09-24 18:20:44 Patient Secure Msg Allyson Fink [facility] 1.2.840.114 350.1.13.10 4.2.7.2.686 [id number] 059 [id number] [facility] 2024-09-20 00:00:00 2024-09-20 14:36:25 Patient Outreach Shelby Obrien Jocelyn [facility] 1.2.840.114 350.1.13.10 4.2.7.2.686 [id number] 044 [id number] [facility] 2024-09-19 00:00:00 2024-09-19 14:35:12 Nurse Triage Latosha Roberts Sharon A [facility] 1.2.840.114 350.1.13.10 4.2.7.2.686 [id number] 019 [id number] [facility] 2024-08-12 00:00:00 2024-09-17 18:27:14 Patient Secure Msg Lynn Doll [facility] 1.2.840.114 350.1.13.10 4.2.7.2.686 [id number] 204 [id number] [facility] 2024-09-15 00:00:00 2024-09-15 13:52:46 Telephone Marcel Toth [facility] 1.2.840.114 350.1.13.10 4.2.7.2.686 [id number] 044 [id number] [facility] 2024-09-13 00:00:00 2024-09-13 13:41:18 Telephone Janey [facility] BUILD[facility] 1.2.840.114 350.1.13.10 4.2.7.2.686 [id number] 059 [id number] [facility] 2024-09-13 13:00:00 2024-09-13 13:28:57 Outpatient R [facility] [id number] [facility] 2024-09-13 13:00:00 2024-09-13 13:28:57 Office Visit Angella [facility] 1.2.840.114 350.1.13.10 4.2.7.2.686 [id number] [facility] 2024-09-13 00:00:00 2024-09-13 12:24:17 Telephone Janey [facility] 1.2.840.114 350.1.13.10 4.2.7.2.686 [id number] 044 [id number] [facility] 2024-09-12 00:00:00 2024-09-12 09:53:24 Telephone Janey [facility] BUILD[facility] 1.2.840.114 350.1.13.10 4.2.7.2.686 [id number] 044 [id number] [facility] 2024-09-08 00:00:00 2024-09-08 15:36:17 Telephone ObHillary [facility] BUILDING 1.2.840.114 350.1.13.10 4.2.7.2.686 [id number] 044 [id number] [facility] 2024-09-07 09:30:00 2024-09-07 10:30:00 Office Visit Vincent, [facility] OFF[facility] BUILDING 1..840.114 350.1.13.10 4.2.7.2.686 [id number] 092 [id number] [facility] 2024-09-07 09:30:00 2024-09-07 09:30:00 Outpatient R MENDOZA CHONG [facility] [id number] [facility] 2024-08-30 13:20:00 2024-08-30 13:20:00 Outpatient R OBI-DORENE MARCEL OBI-DORENE , [facility] [id number] [facility] 2024-08-29 16:20:00 2024-08-29 16:20:00 Office Visit Janey [facility] BUILDING 1.2.840.114 350.1.13.10 4.2.7.2.686 [id number] 044 [id number] [facility] 2024-08-29 16:20:00 2024-08-29 15:48:57 Outpatient R OBI-DORENE MARCEL OBI-DORENE , [facility] [id number] [facility] 2024-08-29 14:30:00 2024-08-29 14:57:07 Office Visit Roma Davison [facility] 1..840.114 350.1.13.10 4.2.7.2.686 [id number] 059 [id number] [facility] 2024-08-29 13:00:00 2024-08-29 13:24:24 Nurse Visit Nurse, Adc Surgery Lynn Soto Nurse, Adc Surgery [facility] BUILDING 1..840.114 350.1.13.10 4.2.7.2.686 [id number] 204 [id number] [facility] 2024-08-26 00:00:00 2024-08-29 07:53:33 Telephone Obi-Dorene , Marcel [facility] 1.2.840.114 350.1.13.10 4.2.7.2.686 [id number] 044 [id number] [facility] 2024-08-22 00:00:00 2024-08-27 10:55:48 [facility] 1.2.840.114 350.1.13.10 4.2.7.2.686 [id number] 204 [id number] [facility] 2024-08-26 00:00:00 2024-08-26 14:20:01 Telephone [facility] 1.2.840.114 350.1.13.10 4.2.7.2.686 [id number] 204 [id number] [facility] 2024-08-24 19:41:00 2024-08-26 14:08:00 Outpatient R CHANO JHONY [facility] [id number] [facility] 2024-08-24 19:41:00 2024-08-26 14:08:00 Hospital Encounter Chano Jhony [facility] 1.2.840.114 350.1.13.10 4.2.7.2.686 [id number] 081 [id number] [facility] 2024-08-23 00:00:00 2024-08-26 11:27:57 Patient Secure Msg Laney, Afpeng [facility] 1.2.840.114 350.1.13.10 4.2.7.2.686 [id number] 059 [id number] [facility] 2024-08-25 09:35:00 2024-08-25 11:44:[address] [facility] 1.2.840.114 350.1.13.10 4.2.7.2.686 [id number] 020 [id number] [facility] 2024-08-25 00:00:00 2024-08-25 09:09:55 Patient Outreach Shelby ObrienMargaritoyn [facility] BU[facility] 1.2.840.114 350.1.13.10 4.2.7.2.686 [id number] 044 [id number] [facility] 2024-08-24 00:00:00 2024-08-24 16:21:31 Telephone Lynn Doll [facility] 1.2.840.114 350.1.13.10 4.2.7.2.686 [id number] [facility] 2024-08-24 00:00:00 2024-08-24 08:15:03 Telephone Marcel Toth [facility] 1.2.840.114 350.1.13.10 4.2.7.2.686 [id number] 044 [id number] [facility] 2024-08-23 11:06:00 2024-08-23 16:47:00 Emergency X SANDRO RAMIREZ [facility]PH [facility] ERT [id number] [facility] 2024-08-23 11:06:00 2024-08-23 16:47:00 Emergency Sandro Ramirez [facility] 1.2.840.114 350.1.13.10 4.2.7.2.686 [id number] 084 [id number] [facility] 2024-08-23 10:00:00 2024-08-23 10:46:46 Out[facility] [id number] [facility] 2024-08-23 10:00:00 2024-08-23 10:46:46 Office Visit Marcel Toth [facility] 1.2.840.114 350.1.13.10 4.2.7.2.686 [id number] 044 [id number] [facility] 2024-08-21 00:00:00 2024-08-21 11:11:50 Telephone Lynn Dlol [facility] 1.2.840.114 350.1.13.10 4.2.7.2.686 [id number] 204 [id number] [facility] 2024-08-19 00:00:00 2024-08-19 13:18:45 Patient Outreach Shelby ObrienLindaShelby [facility] 1.2.840.114 350.1.13.10 4.2.7.2.686 [id number] 044 [id number] [facility] 2024-08-18 00:00:00 2024-08-18 16:47:28 Patient Outreach Shelby Obrien Shelby [facility] 1.2.840.114 350.1.13.10 4.2.7.2.686 [id number] 044 [id number] [facility] 2024-08-18 13:15:00 2024-08-18 13:30:00 Engineering 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 2, Ad[facility] Lab Lynn Doll 2, Adc Lab [facility] 1.2.840.114 350.1.13.10 4.2.7.2.686 [id number] [facility] 2024-08-18 13:15:00 2024-08-18 13:15:00 Outpatient R LYNN DOLL [facility] [id number] [facility] 2024-08-17 00:00:00 2024-08-17 09:43:06 Telephone Ketty Starks Roxie L [facility] 1.2.840.114 350.1.13.10 4.2.7.2.686 [id number] 071 [id number] [facility] 2024-08-15 00:00:00 2024-08-16 16:49:23 Patient Secure Msg Lynn Doll [facility] 1.2.840.114 350.1.13.10 4.2.7.2.686 [id number] 204 [id number] [facility] 2024-08-16 14:00:00 2024-08-16 14:40:05 [id number] 2024-08-16 14:00:00 2024-08-16 14:40:05 Nurse Visit Nurse, [facility] Surgery Lynn Doll Nurse, [facility] Surgery [facility] PR[facility] SPECIALTY CARE 1.2.840.114 350.1.13.10 4.2.7.2.686 [id number] 204 [id number] [facility] 2024-08-16 00:00:00 2024-08-16 08:54:06 Telephone Angella [facility] PRIMARY [facility] SPECIALTY CARE 1.2.840.114 350.1.13.10 4.2.7.2.686 [id number] 204 [id number] [facility] 2024-08-15 00:00:00 2024-08-15 20:02:56 Telephone Angella [facility] BUILDING 1.2.840.114 350.1.13.10 4.2.7.2.686 [id number] [facility] 2024-08-15 00:00:00 2024-08-15 17:09:22 Telephone Angella [facility] BUILDING 1.2.840.114 350.1.13.10 4.2.7.2.686 [id number] 204 [id number] [facility] 2024-08-15 13:02:00 2024-08-15 16:27:00 Emergency X WAYNE ZAPATA, WAYNE [facility] ERT [id number] [facility] 2024-08-15 13:02:00 2024-08-15 16:27:00 Emergency Wayne Zapata [facility] 1.2840.114 350.1.13.10 4.2.7.2.686 [id number] 084 [id number] [facility] 2024-08-15 15:00:00 2024-08-15 15:00:00 Outpatient R LANEY, ROMA [facility] [id number] [facility] 2024-08-15 00:00:00 2024-08-15 11:09:53 Nurse Triage Latosha Roberts Sharon A [facility] ([facility]) 1.0.114 350.1.13.10 4.2.7.2.686 [id number] 019 [id number] [facility] 2024-08-15 00:00:00 2024-08-15 10:09:35 Patient Outreach Shelby Obrien Jocelyn [facility] 1.20.114 350.1.13.10 4.2.7.2.686 [id number] 044 [id number] [facility] 2024-07-11 00:00:00 2024-08-13 18:25:29 Patient Secure Msg Donovan Lasha Ayden [facility] 1.2840.114 350.1.13.10 4.2.7.2.686 [id number] 092 [id number] [facility] 2024-07-12 00:00:00 2024-08-13 18:22:06 Patient Secure Msg Allyson Fink [facility] 1.2840.114 350.1.13.10 4.2.7.2.686 [id number] 059 [id number] [facility] 2024-07-13 00:00:00 2024-08-13 18:21:34 Patient Secure Msg Doctor Unassigned, Smarr Doctor Unassigned, Smarr [facility] 1..114 350.1.13.10 4.2.7.2.686 [id number] 019 [id number] [facility] 2024-08-11 00:00:00 2024-08-11 15:23:27 Patient Outreach Shelby Obrien Jocelyn [facility] BU[facility] 1..114 350.1.13.10 4.2.7.2.686 [id number] 044 [id number] [facility] 2024-08-11 14:15:00 2024-08-11 15:09:39 Outpatient R RON HOOVER [facility] [id number] [facility] 2024-08-11 14:15:00 2024-08-11 15:09:39 Office Visit Ron Hoover [facility] 1.20.114 350.1.13.10 4.2.7.2.686 [id number] [facility] 2024-08-11 00:00:00 2024-08-11 14:14:41 Telephone Lynn Doll [facility] 1.20.114 350.1.13.10 4.2.7.2.686 [id number] [facility] 2024-08-09 08:49:58 2024-08-09 23:59:00 Outpatient R LYNN DOLL [facility] [id number] [facility] 2024-08-09 08:49:58 2024-08-09 23:59:00 Hospital Encounter Lynn Doll [facility] 1..114 350.1.13.10 4.2.7.2.686 [id number] [facility] 2024-08-09 00:00:00 2024-08-09 09:29:44 Patient Outreach Shelby Obrien Jocelyn [facility] 1.2.840.114 350.1.13.10 4.2.7.2.686 [id number] [id number] [facility] 2024-08-08 00:00:00 2024-08-08 21:21:32 Telephone ObDorene [facility] 1.2.840.114 350.1.13.10 4.2.7.2.686 [id number] [id number] [facility] 2024-08-08 11:40:00 2024-08-08 13:15:06 Outpatient R LASHA AGUILAR HOWARD [facility] [id number] [facility] 2024-08-08 11:40:00 2024-08-08 13:15:06 Office Visit Lasha Aguilar [facility] 1.2840.114 350.1.13.10 4.2.7.2.686 [id number] [facility] 2024-08-08 00:00:00 2024-08-08 08:44:36 Telephone ObDorene [facility] 1.2.840.114 350.1.13.10 4.2.7.2.686 [id number] [id number] [facility] 2024-08-02 00:00:00 2024-08-05 11:57:32 Telephone Lynn Doll [facility] 1.2840.114 350.1.13.10 4.2.7.2.686 [id number] [facility] 2024-08-04 09:30:00 2024-08-04 09:30:00 Outpatient R SNEHA RON [facility] [id number] [facility] 2024-08-03 00:00:00 2024-08-03 16:17:[address] [facility] 1.2840.114 350.1.13.10 4.2.7.2.686 [id number] [id number] [facility] 2024-08-03 00:00:00 2024-08-03 10:41:36 Telephone Angella [facility] 1.20.114 350.1.13.10 4.2.7.2.686 [id number] [facility] 2024-08-02 08:30:00 2024-08-02 09:32:37 Outpatient R [facility] [id number] [facility] 2024-08-02 08:30:00 2024-08-02 09:32:37 Office Visit Angella [facility] 1.2840.114 350.1.13.10 4.2.7.2.686 [id number] [facility] 2024-08-02 00:00:00 2024-08-02 09:29:45 Telephone Angella [facility] 1.2840.114 350.1.13.10 4.2.7.2.686 [id number] [facility] 2024-07-28 00:00:00 2024-07-28 11:36:00 Patient Outreach Shelby Obrien Jocelyn [facility] 1.2840.114 350.1.13.10 4.2.7.2.686 [id number] 044 [id number] [facility] 2024-07-25 00:00:00 2024-07-25 16:03:56 Case Management La Nena Aaron Katherine [facility] 1.2.840.114 350.1.13.10 4.2.7.2.686 [id number] 044 [id number] [facility] 2024-07-25 11:20:00 2024-07-25 12:06:43 Outpatient R OBI-DORENE , [facility] OBI[facility] , [facility] [id number] [facility] 2024-07-25 11:20:00 2024-07-25 12:06:43 [facility] 1.2.840.114 350.1.13.10 4.2.7.2.686 [id number] 044 [id number] [facility] 2024-06-17 00:00:00 2024-07-23 18:25:41 Patient Secure Msg Doctor Unassigned, Smarr Doctor Unassigned, Smarr [facility] 1.2.840.114 350.1.13.10 4.2.7.2.686 [id number] 044 [id number] [facility] 2024-06-22 00:00:00 2024-07-23 18:21:03 Patient Secure Msg Doctor Unassigned, Smarr Doctor Unassigned, Smarr [facility] 1.2.840.114 350.1.13.10 4.2.7.2.686 [id number] 019 [id number] [facility] 2024-07-05 00:00:00 2024-07-23 06:28:22 [facility] 1.2.840.114 350.1.13.10 4.2.7.2.686 [id number] 044 [id number] [facility] 2024-07-22 10:00:00 2024-07-22 10:00:00 Engineering 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 2, Adc Lab Lynn Doll 2, Adc Lab [facility] 1..840.114 350.1.13.10 4.2.7.2.686 [id number] [facility] 2024-07-22 10:00:00 2024-07-22 09:45:54 Outpatient R LYNN DOLL [facility] [id number] [facility] 2024-07-18 15:21:13 2024-07-18 23:59:00 [facility] 1.840.114 350.1.13.10 4.2.7.2.686 [id number] [facility] 2024-07-18 14:40:00 2024-07-18 15:20:32 [facility] [id number] [facility] 2024-07-18 14:40:00 2024-07-18 15:20:32 [facility] 1.840.114 350.1.13.10 4.2.7.2.686 [id number] 059 [id number] [facility] 2024-07-17 00:00:00 2024-07-18 14:02:30 Pat Sommer [facility] 1..840.114 350.1.13.10 4.2.7.2.686 [id number] 044 [id number] [facility] 2024-07-14 00:00:00 2024-07-14 16:10:39 Patient Secure Msg Doctor Unassigned, Smarr Doctor Unassigned, Smarr [facility] 1.2.840.114 350.1.13.10 4.2.7.2.686 [id number] [facility] 2024-07-12 00:00:00 2024-07-12 16:58:10 Transition of Care Jayashree Josue Kristi L [facility] 1.2.840.114 350.1.13.10 4.2.7.2.686 [id number] [facility] 2024-07-12 00:00:00 2024-07-12 16:53:11 Transition of Care Jayashree Josue Kristi L [facility] 1.2.840.114 350.1.13.10 4.2.7.2.686 [id number] [facility] 2024-07-12 13:30:00 2024-07-12 14:19:51 Outpatient R LYNN DOLL [facility] [id number] [facility] 2024-07-12 13:30:00 2024-07-12 14:19:51 Office Visit Angella [facility] PRIMARY AND SPECIALTY CARE 1.2.840.114 350.1.13.10 4.2.7.2.686 [id number] [facility] 2024-07-11 00:00:00 2024-07-12 14:01:26 Patient Secure Allyson Dinh [facility] 1.2.840.114 350.1.13.10 4.2.7.2.686 [id number] 059 [id number] [facility] 2024-07-07 15:31:00 2024-07-10 11:50:00 Outpatient X DONAVON BROWN [facility] [id number] [facility] 2024-07-07 15:31:00 2024-07-10 11:50:00 Emergency Juan Calvillo, Donavon Macedo [facility] 1.840.114 350.1.13.10 4.2.7.2.686 [id number] [id number] [facility] 2024-06-03 00:00:00 2024-07-09 18:25:38 Patient Secure Msg Obi-Dorene [facility] BUILDING 1.840.114 350.1.13.10 4.2.7.2.686 [id number] 044 [id number] [facility] 2024-07-08 00:00:00 2024-07-08 08:59:08 Telephone Obi-Dorene [facility] 1..114 350.1.13.10 4.2.7.2.686 [id number] 044 [id number] [facility] 2024-07-07 14:00:00 2024-07-07 15:20:05 Outpatient R APRIL HERNANDEZ HALEY [facility] [id number] [facility] 2024-07-07 14:00:00 2024-07-07 15:20:05 Office Visit April Hernandez [facility] 1..114 350.1.13.10 4.2.7.2.686 [id number] 092 [id number] [facility] 2024-07-05 00:00:00 2024-07-06 08:37:03 Patient Secure Msg Obi-Dorene [facility] BUILDING 1.840.114 350.1.13.10 4.2.7.2.686 [id number] 044 [id number] [facility] 2024-07-04 00:00:00 2024-07-05 15:14:17 Patient Secure Msg Obi-Dorene [facility] BUILDING 1.2.840.114 350.1.13.10 4.2.7.2.686 [id number] 044 [id number] [facility] 2024-07-05 00:00:00 2024-07-05 10:53:58 [facility] 1.2.840.114 350.1.13.10 4.2.7.2.686 [id number] 044 [id number] [facility] 2024-07-04 00:00:00 2024-07-04 08:33:16 Telephone Janey [facility] BUILDING 1.2.840.114 350.1.13.10 4.2.7.2.686 [id number] 044 [id number] [facility] 2024-07-01 00:00:00 2024-07-02 20:42:12 Patient Secure Msg Janey [facility] BUILDING 1.2.840.114 350.1.13.10 4.2.7.2.686 [id number] 044 [id number] [facility] 2024-07-01 00:00:00 2024-07-01 08:34:15 Refill Janey [facility] BUILDING 1.2.840.114 350.1.13.10 4.2.7.2.686 [id number] 044 [id number] [facility] 2024-06-30 00:00:00 2024-07-01 08:19:37 Patient Secure Msg ObHillary [facility] BUILDING 1.2.840.114 350.1.13.10 4.2.7.2.686 [id number] 044 [id number] [facility] 2024-06-29 00:00:00 2024-06-29 09:18:40 Telephone Andi Maier [facility] 1.84.114 350.1.13.10 4.2.7.2.686 [id number] 092 [id number] [facility] 2024-06-23 00:00:00 2024-06-23 12:06:09 Telephone DonovanLasha garcia [facility] 1.84.114 350.1.13.10 4.2.7.2.686 [id number] [facility] 2024-06-20 00:00:00 2024-06-20 10:53:14 Telephone Donovan Lasha [facility]?DONI [facility] BUILDING 1.84.114 350.1.13.10 4.2.7.2.686 [id number] 092 [id number] [facility] 2024-06-20 00:00:00 2024-06-20 10:23:18 Allyson Tineo [facility] 1.840.114 350.1.13.10 4.2.7.2.686 [id number] 059 [id number] [facility] 2024-06-17 15:20:00 2024-06-17 16:22:18 Outpatient R LASHA AGUILAR HOWARD [facility] [id number] [facility] 2024-06-17 15:20:00 2024-06-17 16:22:18 Office Visit Donovan Lasha [facility] 1.840.114 350.1.13.10 4.2.7.2.686 [id number] 092 [id number] [facility] 2024-06-17 00:00:00 2024-06-17 13:51:35 Patient Secure Msg Doctor Unassigned, Smarr Doctor Unassigned, Smarr [facility] 1.840.114 350.1.13.10 4.2.7.2.686 [id number] 044 [id number] [facility] 2024-06-17 00:00:00 2024-06-17 13:36:54 Patient Secure Msg Doctor Unassigned, Smarr Doctor Unassigned, Smarr [facility] 1.2.840.114 350.1.13.10 4.2.7.2.686 [id number] 044 [id number] [facility] 2024-06-16 00:00:00 2024-06-17 10:32:26 Patient Secure Msg Obi-DoreneMarcel flores [facility] 1.2.840.114 350.1.13.10 4.2.7.2.686 [id number] 044 [id number] [facility] 2024-06-13 11:20:00 2024-06-13 11:37:04 Outpatient R OBI-DORENE , MARCEL OBI-DORENE , [facility] [id number] [facility] 2024-06-13 11:20:00 2024-06-13 11:37:04 Office Visit Obi-Dorene , [facility] BUILDING 1.2.840.114 350.1.13.10 4.2.7.2.686 [id number] 044 [id number] [facility] 2024-06-08 00:00:00 2024-06-08 08:12:23 Telephone [facility]Dorene , [facility] 1.2.840.114 350.1.13.10 4.2.7.2.686 [id number] 044 [id number] [facility] 2024-06-04 00:00:00 2024-06-06 23:08:47 Pat Sommer [facility] N[facility] BUILDING 1.2.840.114 350.1.13.10 4.2.7.2.686 [id number] 044 [id number] [facility] 2024-06-05 00:00:00 2024-06-06 11:27:22 RefSavannah Escobarica [facility] N[facility] BUILDING 1.2.840.114 350.1.13.10 4.2.7.2.686 [id number] 044 [id number] [facility] 2024-06-06 00:00:00 2024-06-06 09:30:37 Refill Allyson Fink [facility] BU[facility] 1.2.840.114 350.1.13.10 4.2.7.2.686 [id number] 059 [id number] [facility] 2024-06-03 00:00:00 2024-06-03 09:24:18 Patient Secure Msg Obi-Dorene , Marcel [facility] 1.2.840.114 350.1.13.10 4.2.7.2.686 [id number] 044 [id number] [facility] 2024-06-02 09:22:31 2024-06-02 23:59:00 Outpatient R OBI-DORENE , MARCEL [facility]BI[facility]DORENE , [facility] [id number] [facility] 2024-06-02 09:22:31 2024-06-02 23:59:00 Hospital Encounter Obi-Dorene , Marcel [facility] 1.2.840.114 350.1.13.10 4.2.7.2.686 [id number] [id number] [facility] 2024-06-02 14:45:00 2024-06-02 15:07:24 Office Visit Krishan Macias Anthony [facility] 1.2.840.114 350.1.13.10 4.2.7.2.686 [id number] [id number] [facility] 2024-05-31 13:15:00 2024-05-31 13:30:02 Engineering 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 2, Adc Lab Obi-Marcel Catherine 2, Adc Lab [facility] 1.2.840.114 350.1.13.10 4.2.7.2.686 [id number] [facility] 2024-05-31 13:15:00 2024-05-31 13:15:00 Outpatient R OBI-DORENE , MARCEL OBI-DORENE , [facility] [id number] [facility] 2024-05-31 11:15:00 2024-05-31 11:15:00 Outpatient R [facility] [id number] [facility] 2024-05-30 00:00:00 2024-05-30 09:55:[address] [facility] 1.2.840.114 350.1.13.10 4.2.7.2.686 [id number] 059 [id number] [facility] 2024-05-26 13:20:00 2024-05-26 16:02:06 Office Visit Obi-Marcel Catherine [facility] 1.2.840.114 350.1.13.10 4.2.7.2.686 [id number] 044 [id number] [facility] 2024-05-26 13:20:00 2024-05-26 16:02:06 Outpatient R OBI-DORENE , MARCEL OBI-DORENE , [facility] [id number] [facility] 2024-05-26 13:00:00 2024-05-26 14:29:46 Office Visit Obi-Dorene Marcel [facility] 1.2.840.114 350.1.13.10 4.2.7.2.686 [id number] 044 [id number] [facility] 2024-05-24 12:16:38 2024-05-24 23:59:00 Outpatient R RON HOOVER [facility] [id number] [facility] 2024-05-24 12:16:38 2024-05-24 23:59:00 Hospital Encounter Sneha [facility] BUILDING 1.2.840.114 350.1.13.10 4.2.7.2.686 [id number] [facility] 2024-05-05 00:00:00 2024-05-05 00:00:00 Telephone Pat Chaidez [facility] 1..840.114 350.1.13.10 4.2.7.2.686 [id number] 044 [id number] [facility] 2024-05-03 11:00:00 2024-05-03 11:00:00 Outpatient R RON HOOVER [facility] [id number] [facility] 2024-04-29 00:00:00 2024-04-29 13:34:24 Telephone Marcel Toth [facility] 1.2.840.114 350.1.13.10 4.2.7.2.686 [id number] 044 [id number] [facility] 2024-04-14 15:15:00 2024-04-14 15:46:47 Outpatient R RON HOOVER [facility] [id number] [facility] 2024-04-14 15:15:00 2024-04-14 15:46:47 Office Visit Ron Hoover [facility] 1.840.114 350.1.13.10 4.2.7.2.686 [id number] [facility] 2024-04-14 00:00:00 2024-04-14 13:31:03 Refill Kayden Chaidezssica [facility] 1.2.840.114 350.1.13.10 4.2.7.2.686 [id number] 044 [id number] [facility] 2024-04-04 13:40:00 2024-04-04 13:54:04 Outpatient [facility] [id number] [facility] 2024-04-04 13:40:00 2024-04-04 13:54:04 [facility] 1.2.840.114 350.1.13.10 4.2.7.2.686 [id number] 059 [id number] [facility] 2024-03-29 00:00:00 2024-03-31 12:22:49 Patient Outreach Ishan Michelle L [facility] 1.2.840.114 350.1.13.10 4.2.7.2.686 [id number] 044 [id number] [facility] 2024-03-29 14:00:00 2024-03-29 14:39:14 Outpatient R PAT CHAIDEZ [facility] [id number] [facility] 2024-03-29 14:00:00 2024-03-29 14:39:14 Office Visit Pat Chaidez [facility] 1.2.840.114 350.1.13.10 4.2.7.2.686 [id number] 044 [id number] [facility] 2024-03-22 05:22:00 2024-03-24 12:30:00 Inpatient R RON HOOVER [facility] [id number] [facility] 2024-03-22 05:22:00 2024-03-24 12:30:00 [facility] 1.2.840.114 350.1.13.10 4.2.7.2.686 [id number] [facility] 2024-03-23 00:00:00 2024-03-23 14:50:58 Telephone Pat Chaidez [facility] 1.2.840.114 350.1.13.10 4.2.7.2.686 [id number] 044 [id number] [facility] 2024-03-22 07:20:00 2024-03-22 11:52:00 Surgery Sneha [facility] 1.2.840.114 350.1.13.10 4.2.7.2.686 [id number] [facility] 2024-03-19 10:30:00 2024-03-19 10:45:00 Engineering 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 Pob, Adc Lab Main Sneha [facility] 1.2840.114 350.1.13.10 4.2.7.2.686 [id number] [facility] 2024-03-19 10:30:00 2024-03-19 10:30:00 Outpatient R RON HOOVER [facility] [id number] [facility] 2024-03-17 00:00:00 2024-03-17 16:04:33 Telephone Pat Chaidez [facility] 1.2840.114 350.1.13.10 4.2.7.2.686 [id number] 044 [id number] [facility] 2024-03-14 00:00:00 2024-03-14 13:37:35 Patient Secure Msg Doctor Unassigned, Smarr [facility] 1.2.840.114 350.1.13.10 4.2.7.2.686 [id number] 044 [id number] [facility] 2024-03-11 00:00:00 2024-03-11 15:05:51 Telephone Pat Chaidez [facility] 1.2.840.114 350.1.13.10 4.2.7.2.686 [id number] 044 [id number] [facility] 2024-03-10 15:00:00 2024-03-10 15:15:00 Office Visit Ron Hoover [facility] 1.2.840.114 350.1.13.10 4.2.7.2.686 [id number] [facility] 2024-03-10 15:00:00 2024-03-10 15:00:00 Outpatient RON CARRASQUILLO [facility] [id number] [facility] 2024-03-08 13:00:00 2024-03-08 13:00:00 Outpatient RON CARRASQUILLO [facility] [id number] [facility] 2024-01-29 00:00:00 2024-03-05 18:13:43 Patient Secure Msg Doctor Unassigned, Smarr [facility] 1.2840.114 350.1.13.10 4.2.7.2.686 [id number] 044 [id number] [facility] 2024-03-03 14:00:00 2024-03-03 14:00:00 Office Visit Pat Chaidez [facility] 1.2.840.114 350.1.13.10 4.2.7.2.686 [id number] 044 [id number] [facility] 2024-03-03 00:00:00 2024-03-03 13:18:42 Patient Outreach Michelle Olmstead [facility] 1.2.840.114 350.1.13.10 4.2.7.2.686 [id number] 044 [id number] [facility] 2024-03-03 14:00:00 2024-03-03 12:57:12 Outpatient R PAT CHAIDEZ [facility] [id number] [facility] 2024-03-03 09:20:00 2024-03-03 09:20:00 Office Visit Padmini Finkgavi [facility] 1.2.840.114 350.1.13.10 4.2.7.2.686 [id number] [id number] [facility] 2024-03-03 09:20:00 2024-03-03 09:07:37 [facility] [id number] 2024-03-02 23:27:00 2024-03-03 01:59:00 Emergency [place] [facility] 1.2840.114 350.1.13.10 4.2.7.2.686 [id number] 084 [id number] [facility] 2024-03-02 00:00:00 2024-03-02 16:26:41 Telephone ChaidezPat [facility] 1.2.840.114 350.1.13.10 4.2.7.2.686 [id number] 044 [id number] [facility] 2024-03-02 00:00:00 2024-03-02 11:17:44 Telephone Ron Hoover [facility] 1.2.840.114 350.1.13.10 4.2.7.2.686 [id number] [facility] 2024-03-01 00:00:00 2024-03-01 13:58:48 Patient Outreach Michelle Olmstead [facility] 1.2.840.114 350.1.13.10 4.2.7.2.686 [id number] 044 [id number] [facility] 2024-02-29 00:00:00 2024-02-29 13:19:28 Telephone SnehaRon rogers [facility] 1.2.840.114 350.1.13.10 4.2.7.2.686 [id number] [facility] 2024-02-25 13:30:00 2024-02-25 13:30:00 Office Visit Pat Chaidez [facility] 1.2.840.114 350.1.13.10 4.2.7.2.686 [id number] 044 [id number] [facility] 2024-02-25 13:30:00 2024-02-25 13:27:04 Outpatient Joyce CHAIDEZ PAT [facility] [id number] [facility] 2024-02-22 13:00:00 2024-02-22 14:02:15 Outpatient Joyce CHAIDEZ PAT [facility] [id number] [facility] 2024-02-22 13:00:00 2024-02-22 13:15:00 Engineering 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 2, Adc Lab Pat Chaidez [facility] 1.2.840.114 350.1.13.10 4.2.7.2.686 [id number] [facility] 2024-02-10 00:00:00 2024-02-10 00:00:00 Telephone Pat Chaidez [facility] 1.2.840.114 350.1.13.10 4.2.7.2.686 [id number] 044 [id number] [facility] 2024-02-02 13:00:00 2024-02-02 13:00:00 Outpatient Joyce ERNESTO HOOVERIQ [facility] [id number] [facility] 2024-01-29 00:00:00 2024-01-29 00:00:00 [facility] 1.2.840.114 350.1.13.10 4.2.7.2.686 [id number] 044 [id number] [facility] 2024-01-19 14:00:00 2024-01-19 14:00:00 Outpatient RON CARRASQUILLO [facility] [id number] [facility] 2024-01-12 00:00:00 2024-01-12 00:00:00 Orders Only Doctor Unassigned, Smarr [facility] 1.2.840.114 350.1.13.10 4.2.7.2.686 [id number] [facility] 2024-01-06 00:00:00 2024-01-06 00:00:00 Telephone Krishan Cowart [facility] 1.2.840.114 350.1.13.10 4.2.7.2.686 [id number] 044 [id number] [facility] 2024-01-04 00:00:00 2024-01-04 00:00:00 Telephone Lasha Aguilar [facility] 1.2.840.114 350.1.13.10 4.2.7.2.686 [id number] 092 [id number] [facility] 2024-01-01 00:00:00 2024-01-01 00:00:00 Patient Secure Msg Doctor Unassigned, Smarr [facility] 1.2.840.114 350.1.13.10 4.2.7.2.686 [id number] 044 [id number] [facility] 2023-12-29 11:40:00 2023-12-29 16:54:53 Outpatient LASHA DELCID HOWARD [facility] [id number] [facility] 2023-12-29 11:40:00 2023-12-29 16:54:53 Office Visit Lasha Aguilar [facility] 1.2840.114 350.1.13.10 4.2.7.2.686 [id number] 092 [id number] [facility] 2023-12-29 00:00:00 2023-12-29 00:00:00 Telephone Lasha Aguilar [facility] 1.2840.114 350.1.13.10 4.2.7.2.686 [id number] [facility] 2023-12-29 00:00:00 2023-12-29 00:00:00 Orders Only Doctor Unassigned, Smarr [facility] 1.2.840.114 350.1.13.10 4.2.7.2.686 [id number] [facility] 2023-12-28 09:40:00 2023-12-28 09:40:00 Office Visit Allyson Fink [facility] 1.2840.114 350.1.13.10 4.2.7.2.686 [id number] [facility] 2023-12-28 09:40:00 2023-12-28 09:39:59 Outpatient R ALLYSON FINK [facility] [id number] [facility] 2023-12-28 00:00:00 2023-12-28 00:00:00 Letter (Out) [facility] 1.0.114 350.1.13.10 4.2.7.2.686 [id number] [facility] 2023-12-24 16:15:00 2023-12-24 16:15:00 Office Visit Ron Hoover [facility] 1.2840.114 350.1.13.10 4.2.7.2.686 [id number] [facility] 2023-12-24 16:15:00 2023-12-24 15:29:05 Outpatient R RON HOOVER [facility] [id number] [facility] 2023-12-11 12:30:00 2023-12-11 12:48:04 Outpatient R PAT CHAIDEZ [facility] [id number] [facility] 2023-12-11 12:30:00 2023-12-11 12:48:04 [facility] 1.20.114 350.1.13.10 4.2.7.2.686 [id number] [facility] 2023-12-08 00:00:00 2023-12-08 00:00:00 Telephone Deandra Medina [facility] 1.0.114 350.1.13.10 4.2.7.2.686 [id number] [facility] 2023-12-07 14:40:00 2023-12-07 14:40:00 Outpatient Joyce JACE ALLYSON [facility] [id number] [facility] 2023-12-07 00:00:00 2023-12-07 00:00:00 Orders Only Doctor Unassigned, Smarr [facility] 1.0.114 350.1.13.10 4.2.7.2.686 [id number] [facility] 2023-12-02 11:45:00 2023-12-02 14:08:59 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 2, [facility]den [facility] 1.2.114 350.1.13.10 4.2.7.2.686 [id number] [facility] 2023-12-02 11:45:00 2023-12-02 11:45:00 Outpatient R PAT CHAIDEZ [facility] [id number] [facility] 2023-12-02 00:00:00 2023-12-02 00:00:00 Refill Pat Chaidez [facility] 1.2840.114 350.1.13.10 4.2.7.2.686 [id number] [facility] 2023-12-02 00:00:00 2023-12-02 00:00:00 Telephone Kayden [facility] 1.2840.114 350.1.13.10 4.2.7.2.686 [id number] 044 [id number] [facility] 2023-12-01 00:00:00 2023-12-01 00:00:00 Patient Outreach Debbie Shah Joyce [facility] 1.840.114 350.1.13.10 4.2.7.2.686 [id number] 044 [id number] [facility] 2023-11-27 15:30:00 2023-11-27 16:17:50 [facility] [id number] [facility] 2023-11-27 15:30:00 2023-11-27 16:17:50 [facility]..114 350.1.13.10 4.2.7.2.686 [id number] 044 [id number] [facility] 2023-11-27 00:00:00 2023-11-27 00:00:00 Patient Secure Msg Doctor Unassigned, Smarr [facility] 1..114 350.1.13.10 4.2.7.2.686 [id number] 019 [id number] [facility] 2023-11-27 00:00:00 2023-11-27 00:00:00 Orders Only Doctor Unassigned, Smarr [facility] 1.20.114 350.1.13.10 4.2.7.2.686 [id number] [facility] Results Test Description Test Time Test Comments Results Result Co mments Source [facility] Q3H x2 from initial occurrence (at 0Hr, 3rd Hr and 6th Hr)2025-02-06 21:29:39* Test Item Value Reference Range Interpretation Comme nts TROPONIN I (test code = 0929966716) 0.001 ng/mL <=0.034 ROLANDO (test code = ROLANDO) [...] of biotin. Lab Interpretation (test code = 26215-8) Normal [facility]cos[facility] Hemoglobin (A1C)2025-02-06 19:11:23* Test Item Value Reference Range Interpretation Comme nts HGB A1C (test code = 4548-4) 7.6 % 4.0-5.7 H ROLANDO (test code = ROLANDO) Reference RangesNormal: <5.7%Prediabetes: 5.7 - 6.4%Diabetes: > 6.5% Lab Interpretation (test code = 81798-4) Abnormal [facility]enton[facility]roponin I - Serial Q3H x2 from initial occurrence (at 0Hr, 3rd Hr and 6th Hr)2025-02-06 18:39:46* Test Item Value Reference Range Interpretation Comme nts TROPONIN I (test code = 8589569258) 0.002 ng/mL <=0.034 ROLANDO (test code = [...] of biotin. Lab Interpretation (test code = 78591-7) Normal [facility] (Total Cholesterol, Triglycerides, HDL)2025-02-06 18:28:21* Test Item Value Reference Range Interpretation Comme nts CHOL (test code = 3697372367) 166 mg/dL 120-200 HDL (test code = 3692840449) 51 mg/dL >=40 HDLC RATIO (test code = 9008643163) 3.3 <=5.0 TRIG (test code = 3926156107) 61 mg/dL 30-170 LDL CHOL (test code = 50574-5) 103 mg/dL <=160 VLDL (test code = 9699867824) 12 mg/dL 5-60 Lab Interpretation (test cod e = 01070-7) [facility] (NA, K, CL, CO2, GLUCOSE, BUN, CREATININE, CA)2025-02-06 18:28:21* Test Item Value Reference Range Interpretation Comme nts NA (test code = 9178105446) 137 mmol/L 135-145 K (test code = 3345249082) 4 mmol/L 3.5-5.0 CL (test code = 0609956301) 102 mmol/L 98-108 CO2 TOTAL (test code = 3785211167) 29 mmol/L 23-31 AGAP (test code = 7217808478) 6 2-16 BUN (test code = 7333781450) 14 mg/dL 7-23 GLUCOSE (test code = 6818774591) 195 mg/dL 70-110 H CREATININE (test code = 2160-0) 0.58 mg/dL 0.60-1.25 L CALCIUM (test code = 9785911499) 9.1 mg/dL 8.6-10.6 eGFR (test code = 10289-9) 106.9 mL/min/1.73m2 CKD-EPI eGFR (2020). Assuming creatinine has been stable day-to-day for at least three months, the eGFR indicates Category G1 (>= 90 mL/min/1.73 m2) Lab Interpretation (test code = 19025-0) Abnormal [facility] with [id number] 17:40:13* Test Item Value Reference Range Interpretation Comme nts WBC (test code = 6690-2) 8.54 4.20-10.70 RBC (test code = 789-8) 4.9 4.26-5.52 HGB (test code = 718-7) 14.8 g/dL 12.2-16.4 HCT (test code = 4544-3) 43.8 % 38.4-49.3 MCV (test code = 787-2) 89.4 fL 81.7-95.6 MCH (test code = 785-6) 30.2 pg 26.1-32.7 MCHC (test code = 786-4) 33.8 g/dL 31.2-35.0 RDW-SD (test code = 80393-4) 41.9 fL 38.5-51.6 RDW-CV (test code = 788-0) 12.7 % 12.1-15.4 PLT (test code = 777-3) 250 150-328 MPV (test code = 50384-1) 10.5 fL 9.8-13.0 NRBC/100 WBC (test code = 5056654130) 0 0.0-10.0 NRBC x10^3 (test code = 7125248832) See_Comment [Automated messa ge] The system which generated this result transmitted reference range: 10*3/?L. The reference range was not used to interpret this result as normal/abnormal. GRAN MAT (NEUT) % (test code = 770-8) 64.1 % IMM GRAN % (test code = 8052335419) 0.2 % LYMPH % (test code = 736-9) 27.9 % MONO % (test code = 5905-5) 6.7 % EOS % (test code = 713-8) 0.6 % BASO % (test code = 706-2) 0.5 % GRAN MAT x10^3(ANC) (test code = 8077332349) 5.48 10*3/uL 1.99-6.95 IMM GRAN x10^3 (test code = 7220279259) 0.00-0.06 LYMPH x10^3 (test code = 731-0) 2.38 10*3/uL 1.09-3.23 MONO x10^3 (test code = 742-7) 0.57 10*3/uL 0.36-1.02 EOS x10^3 (test code = 711-2) 0.05 10*3/uL 0.06-0.53 L BASO x10^3 (test code = 704-7) 0.04 10*3/uL 0.01-0.09 Lab Interpretation (test code = 34500-7) Abnormal [facility] GLUCOSE (AUTOMATED)2025-02-06 17:05:28* Test Item Value Reference Range Interpretation Comme nts POCT GLU (test code = 7900094520) 189 mg/dL 70-110 H Lab Interpretation (test cod e = 80083-8) Abnormal [facility] Urinalysis, Kvjsiqghcq4320-30-63 15:42:00 * Test Item Value Reference Range Interpretation Comme nts POCT U SP GRAV (test code = 3255) 1.015 mg/dl 1.005-1.025 POCT PH U (test code = 3254) 7.5 mg/dl 5-8 POCT U LEUK EST (test code = 3263) negative Negative - Negative POCT U NIT (test code = 3262) negative Negative - Negati ve POCT U PROT (test code = 3259) negative Negative - Negative POCT U GLU (test code = 3256) negative Negative - Negati ve POCT U KETONE (test code = 3258) negative Negative - Negative POCT U UROBILI (test code = 3260) 0.2 mg/dl 0.2-1 POCT U BILI (test code = 3261) negative Negative - Negative POCT U BLD (test code = 3257) negative Negative - Negati ve POCT U COLOR (test code = 3266) yellow POCT U APPEAR (test code = 3267) clear [facility],POST-[facility]ID RES,US,AVB-[id number] 00:00:00* Test Item Value Reference Range Interpretation Comme nts PVR (URINE VOLUME) (test code = 5193) 214 ml 0-100 [facility]entonCT Abdomen pelvis w wo ucgmllsb9246-04-76 19:02:43EXAM: CT ABDOMEN PELVIS W WO CONTRAST ORDERING PROVIDER: ALEX BLANCHARD HISTORY: 69 years-old Male; Provided Ordering Indication: Hematuria,unknown cause eval for mass . TECHNIQUE: Contiguous axialimaging from the level of the lung basesthrough the proximal thighs was performed with delayed phase intravenouscontrast. Coronal and sagittal reconstructions were obtained. COMPARISON: CT abdomen pelvis hematuria protocol 08/09/2024 FINDINGS: LOWER THORAX: The lung bases are clear.Midline sternotomy wires partiallyvisualized. LIVER: The liver is normal in size and contour. No focal hepatic lesion isseen. GALLBLADDER AND BILIARY TREE: No radiopaque gallstones are seen. No intraor extrahepatic biliary ductal dilation is visualized. SPLEEN: The spleen appears unremarkable. PANCREAS: No ductal dilation or masses are visualized. ADRENAL GLANDS: No adrenal masses are seen. KIDNEYS: 4 cm hypodensi ty on the superior pole of the right knee likelyrepresents a simple cyst. 2.2 and 2.1 cm intermediate density lesions onthe interpolar zone of the left kidney, and a 1.3 cm density on theinterpolar zone of the right kidney can be further evaluated on anonemergent basis with MRI renal mass protocol,however appear grosslystable from 08/09/2024. Mild bilateral pelviectasis with urothelialprominence. No stones or suspicious masses are visualized. PELVIS/BLADDER: The bladder is adequately distendedwith bladder wallthickening. There is dilation of the proximal urethra. There are scatteredprostatic calcifications.. GI TRACT: Moderate solid colonic stool burden compatible with constipation.No dilation or bowel wall thickening is seen. The appendix appearsunremarkable. PERITONEUM AND RETROPERITONEUM: No intra-abdominal free air or fluidcollection is visualized. LYMPH NODES: No enlarged intra-abdominal or pelvic lymph nodes are found. VESSELS: Moderate atherosclerotic calcifications noted in the abdominalaorta and its branches. The vessels appear unremarkable. BONES AND SOFT TISSUES: No suspicious lytic or sclerotic bony lesions arepresent.[facility]Comp. Metabolic Panel (59610) 2025-01-10 17:16:30* Test Item Value Reference Range Interpretation Comme nts NA (test code = 2642360656) 137 mmol/L 135-145 K (test code = 5660646047) 4.4 mmol/L 3.5-5.0 CL (test code = 6576301304) 104 mmol/L 98-108 CO2 TOTAL (test code = 4011878390) 25 mmol/L 23-31 AGAP (test code = 3661392487) 8 2-16 BUN (test code = 4963087910) 15 mg/dL 7-23 GLUCOSE (test code = 5676492276) 145 mg/dL 70-110 H CREATININE (test code = 2160-0) 0.59 mg/dL 0.60-1.25 L TOTAL BILI (test code = 4749828309) 0.8 mg/dL 0.1-1.1 CALCIUM (test code = 9710566472) 9.5 mg/dL 8.6-10.6 T PROTEIN (test code = 2273948252) 7.1 g/dL 6.3-8.2 ALBUMIN (test code = 5949636768) 4.2 g/dL 3.5-5.0 ALK PHOS (test code = 1230363704) 69 U/L 34-122 ALTv (test code = 1742-6) 20 U/L 5-50 AST(SGOT) (test code = 2734582406) 33 U/L 13-40 eGFR (test code = 60516-0) 106.3 mL/min/1.73m2 CKD-EPI eGFR (2020). Assuming creatinine has been stable day-to-day for at least three months, the eGFR indicates Category G1 (>= 90 mL/min/1.73 m2) Lab Interpretation (test code = 05637-2) Abnormal [facility]entonProthrombin Time / [id number] 17:11:32* Test Item Value Reference Range Interpretation Comme nts PROTIME PATIENT (test code = 5964-2) 10.9 10.1-12.6 INR (test code = 6301-6) 0.9 Normal INR <1.1; Warfarin Therapeutic range 2.0 to 3.0 or 2.5 to 3.5, depending upon the indications. Lab Interpretation (test code = 93441-8) Normal [facility]entonActivated Partial Thrmplas [id number] 17:11:32* Test Item Value Reference Range Interpretation Comme nts APTT Patient (test code = 3173-2) 31 26-36 ROLANDO (test code = ROLANDO) The [facility] patient population mean normal value for aPTT is 30 seconds. Lab Interpretation (test code = 79654-1) Normal [facility] with [id number] 17:03:30* Test Item Value Reference Range Interpretation Comme nts WBC (test code = 6690-2) 8.76 4.20-10.70 RBC (test code = 789-8) 4.97 4.26-5.52 HGB (test code = 718-7) 14.8 g/dL 12.2-16.4 HCT (test code = 4544-3) 46.2 % 38.4-49.3 MCV (test code = 787-2) 93.0 fL 81.7-95.6 MCH (test code = 785-6) 29.8 pg 26.1-32.7 MCHC (test code = 786-4) 32.0 g/dL 31.2-35.0 RDW-SD (test code = 72899-1) 42.6 fL 38.5-51.6 RDW-CV (test code = 788-0) 12.4 % 12.1-15.4 PLT (test code = 777-3) 267 150-328 MPV (test code = 22911-9) 9.9 fL 9.8-13.0 NRBC/100 WBC (test code = 8033921279) 0.0 0.0-10.0 NRBC x10^3 (test code = 2897653709) See_Comment [Automated me ssage] The system which generated this result transmitted reference range: 10*3/?L. The reference range was not used to interpret this result as normal/abnormal. GRAN MAT (NEUT) % (test code = 770-8) 55.1 % IMM GRAN % (test code = 4960865607) 0.20 % LYMPH % (test code = 736-9) 36.2 % MONO % (test code = 5905-5) 7.0 % EOS % (test code = 713-8) 0.9 % BASO % (test code = 706-2) 0.6 % GRAN MAT x10^3(ANC) (test code = 0934120696) 4.83 10*3/uL 1.99-6.95 IMM GRAN x10^3 (test code = 5212803087) 0.00-0.06 LYMPH x10^3 (test code = 731-0) 3.17 10*3/uL 1.09-3.23 MONO x10^3 (test code = 742-7) 0.61 10*3/uL 0.36-1.02 EOS x10^3 (test code = 711-2) 0.08 10*3/uL 0.06-0.53 BASO x10^3 (test code = 704-7) 0.05 10*3/uL 0.01-0.09 [facility]SU[facility]PL[facility] [id number] 15:54:01 Ordered by an unspecified provider.[facility] [id number] 14:32:21* Test Item Value Reference Range Interpretation Comme nts Case Report (test code = 1855653144) Surgical Pathology ?Case: [id number] ? Authorizing Provider: ?Mindy Andino MD ?Collected: ? 12/28/2024 0906 ?Ordering Location: ? ? [facility] ? ? ?Received: ?12/29/2024 1545 ? [facility] Center ?Pathologist: ? Khadijah Corbin MD ? Specimens: ? A) - LARGE INTESTINE, RIGHT-ASCENDING COLON, Polyp ? B) - LARGE INTESTINE, CECUM, Polyp x2 ? C) - RECTUM, Recto- Sigmoid Polyp ? Final Diagnosis (test code = 2668003851) x2txnTOcZKRvv9yoKFOczK FuZzEwMzNcZnRuYmpcdWMx KNlojcQuIPtgsFooRHY6ZK NmCC8krDrlvRs1vGylVAWs okU3tKRrJVbwc8snYPM7t0 suskosYJYeLWdtCm7yjZMs mTwzAuDfWBYhGWs6zM46IV AinL6jdNXdYRp0DEMvvDMa hbMnUuSrXGNgaXGczWY5DF TnFU4jgkejHNnoZBkhHJHh lpW8ITJukDCgV5ZaFCLrFQ 5wycffWKN7AFhpVXHfOYR7 AcOlWQNqf1Tvgoz5EzOyiU FyZFxwbGFpblxmczIwXHBh ciBBLiBMQVJHRSBJTlRFU1 SRSbUeDRMUX2aUKYOLH9US RTqFGjWSD7aTCpbkJO8CMJ QQU3FERQx1CYCrwjFvFHNc JDFPEFOQZXDFLQGZAD8GHH EgIFxwYXJcZnMyMlxwYXJc ZnMyMCBCLiBMQVJHRSBJTl KDD8MWPgRtSCKEQ2ZZMMFY Y2hLEOWPAQ4IUGWQVWC1PW BhciAgICAgLSBPTkUgRlJB D89KJmHrE4WrAZRQVQkMVo XUBSBBA59KNSkhOQFgEQFd AT1dCsYGW03WOvKITL1ZIN VFAW5ZBCTmPPWKP1KEHGcD HCvgRX1EIJRROMsAZL5FLO QwD1fOXodULoFcaCQgOCTk BgJdbZTbNTWxEpZwVb4qB9 7PH16oAWTAU2BGX7uGVZ1V EKgzDC1BENSVI9CLXHy4OG LmlxVkZEXyQABOZ0uYAriR WT8ZJ20CYKUZVOAWCJVHA4 9XUzCCUQUVVA7PVG0TQFPF N9wGKNcSMOSoaIFaFGWbZL CxNP4DVEVOXM8XMHPCX1JF REUECA4VICKrWQBIIlGFAv lFRCBccGFyXHBhciBCaWxs sXGyG9yrztHdHGWCLJTavU WfNUZiqx94WDF5DqEdu9B8 YISiUfJuFHMyEU6dzErzGX NzFB2fTEWpK2ovaE7dcbn8 LkHwMTTrVpB3NBFfxnW5Nx u2JTOwYCghq2fcv5AmP7Yp uKJasAz5w3fmNONgMrW3gC MpBSqcZ2rdflOlqOMiCSVh ZOa8gKklDwFnJADlo3azyj BcZmNoYXJzZXQwIENhbGli phh8wM70VQIyqL1tpOQxLD qaysRtUgL8MPxdWZDeUyG6 VRTgcGPfCMUbT2aoIHIoKF qbOPTmTAdauRGcYAO5zIkn z2C5hHJrtMVlaDodSsUoLp QgSHZLh2QlLSd1hYtaJ6Su VZAuOkE1pPTdFFGmMWefVQ KiKNEvjrB2uM25ZMnsxnF0 sFFra2Cui94hb532kJ9goI FfJBZ8YDMnOOPiaSRfLKMd VVW2KQGesOLyU6duSQYqBG 0vvoutNZyoHIdzUCKiwNY1 CSMleVRxB6FuCFAmIBbyVN Mwzuw6JxPyLx3fxHInyCpc OAwnq5pti4nkdKEbRxg8YB YzNxIfBaimIYutj7Aah5lg QDLjvf1bLTG9dHVahLhhx3 J2gQBzQWRgkWQwnyYqLMZp IlW7RQiqXP4amp06NIYoLT C8ik6wjGPqpKpnxqUrcXDc TPjpO6TsJZMjy514TKFqL2 OaMUZuu8X3mmLgCzJlRDDu nJC9dcK4KTUbMXx3qMLyfu R9rhHuaRWdR9vreA3gLNEa BN3voyump5ooVPurPAldPY DttPG1okJ6ATUuzHRhE0Jq oD3fGHClQEjeUGKsvxt4Iq XwVm8wlKNixIvtVNixCmuc YWdlXHBnbmNvbnRccGduZG VjXHBsYWluXHBsYWluXGYw DVEyVkQguPkohWbwkL1pRu ZpUgAnJHxjCZ7vSEOqW7cw nDLaKVDzKIVfD4hcHjVzoI 9jaFxmMVxjZjJcZnMyMFxw YXIgSSBoYXZlIHBlcnNvbm MosDmcjfA0xVP7QIKlNBlf LYTnYPRxzGJdth0vyXqhBK LmRT1kZZGoiqErODmccNlz BNyzVAU4VZIniLMbtEQawE FkZSBieSByZXNpZGVudHMs TKXqzSviu1Tdl0LvaJE8nO 1oc2xhk2WwIXCrwZM7EL55 iiY9bS9zQCGlQW7uVPHeLH 3ajRQerTBwCIUub36hqVqc cyByZXBvcnQuXHBsYWluXG YyXGZzMjhcbGFuZzEwMzNc aGljaFxmMlxkYmNoXGYyXG ryK9zkMzSlHfLqNMwjQZE5 fQ== Clinical Information (test code = 3644284795) Screening Colonoscopy Gross Description (test code = 5950687529) b2jdyVGxIHRbdHUEZZJ5PY FeUW3yrFezqSt1rNsfJZBz saG8jINbOCjyv9yiAGG5h2 vqplBZLsynYWOhUL2nDZzf TZPhGS1rAcWePXNsGgVqKW BhcGVydzEyMjQwXHBhcGVy oEX5YXTvJI2dfatnQFszGB eaTMXrzwJ2VGAqmXLiB0Mn FOYoME8efnrfAZM3SGULBs heOd4mxBCbfEgeKiRbMjDu MJYsJXQbLWLoz6bvhgSDey tdhRl8gH0QJSGzD9TsLC9J u5yhLTWzxPZiBLT7KGhrq7 ffXJzfGBB9NTWmYOXgXTQk HS5HIzSmQTC3GIX5SXFtKl E5ZFg7UWCIDOMjFEO4EXws PqP0WQa5WNLpVF7lXIfrkH DbXGdlRiuhNKpbN143FOtf HUEvG3IgR4RtMEqkVmMnFE lgUUYsJGDnXFolBZFjO7OM YFJwSUisVBK6AvUvMNb9SE d2GP4FTbUtEWNmQGC9WbL8 CMNiAXs6ARpkIF5ROVPhLQ F3LwX8KJxoWGCxPwTkZNm0 IDIgXFxzcyAzIFxcZmwgXF noA86cgDXhSEQZLpkvsYEj blxmczIwIFNQRUNJTUVOIE RxbRQsV7kwRoReIwcbXTDj DQpccGFyZCANClxwbGFpbl xsdHJjaFxmczIyXGVwaWNO QDP1XA1xEKAMMiuyzPLaRW Dok2TdKUwhnTimAIAiUqUx NIdBhZVfwS3djtHIVBovKO NdJ1OzmiIbLHhaKVSvyh3y bGluLCBsYWJlbGVkIHRoZS EmEMEeZY10H3VnelLuTYbc VUggbnVtYmVyLCAibGFyZ2 CwpI58GHW9aY0cNNRndTcf jAVrt4QgnnAejiemC32zn3 2qWNKnzMqiLrJyb53zpGS2 cdLhJmF8BDPhug9zxQ6pLN znhcBtdSzofsCez5L3XRCn x5O3OEGrrcDawRCmcWCoHF XnQjV0PNBmBHHmrPZhqxFd zXXjoEJvsD6mttRpk06oBW M0ATSvJMM0WRLiYRB4KVAw JaGroTGypbSyN9usKYxjcE UpLiAgVGhlIHNwZWNpbWVu IGlzIGZpbHRlcmVkIGludG 5zVPHakA8ev1zoDnMaMHSn KSOqkcMhqPDgkIP7XCSuiT 7stY55osUgygDJOK9YJvnl fPrpHbHiuOMjGuH8JXUjfV WcFPT8QU0mxJjgBSSxPDb1 BSeyKIObQ7YhW2OdIJomUk BcXGlkIDUxMDAyIFxcZGIg D5WGUDHqCHyhVVB7FgMqLG u8XQa3RA0NQaRqXWQjZDF2 OaQ8QFNxRXt5RZbdSP4BCA PlVZZ7Hgu8DoAzBXVmXvLx ZDx5JMErVYipdrYzECmoSj pgVQdlT48nkPYqANocSqGq CWlmmEwxDBItIDH4NU6BDT RiEvIrH9IWE7mKWK5qYssf czIyXHBhciANClxwYXJkIA 6PZVEgMVfoEIg0bhIvZYXo EqVfJWWzT70xo5AGh9LwWY 0XKIt1fpXapwrqLaOaQOUn qZREw7FsFOazYEAnTQCxrI TMv7CbIIXUTsLyYZHfyWCr UHEijBEmrhXbFSp6JEZzbZ 6uUb6tiLNayG5gHHbvTyUx ZWQgdGhlIHBhdGllbnQncy OrMZ2cXTCFNCItlJ9mWMBv JRYiHQHtLRPvweRzj6Qmek IeKJBfB7HeXBWqr7t8rJG4 KITcUBDuakEjc7VkOE2pKF NgeRRaINGfvnpxUT3sHV85 y0vfCRTcYrBaxVpub4VdDM QaPRnrFZ68ovTrPL11AIop MX8wIIioRF4xVTGmEPSgXE AwLjMgeCAwLjIgeCAwLjIg E10vFxYpACleZJUqYHPhbZ VuIGlzIGZpbHRlcmVkIGlu iB0wFVNhsY4ea2jxZrKdTZ UfBEUlgbRllAOwwKD7UHNu dW5dfM23coVtexJXJL2DHb atuGfaWyCcyRKaFvF1TBOa cCVtXCI3IK5aiOzeCVVdQY e7RVqcQTUjI5NcU1IwKIfc ZyBcXGlkIDUxMDAyIFxcZG XiK4CPVTRaMGkaBKL7OaRa EPp4ICj1QC3OZaHfAFYmPU R3Ouc5YhDrJEz0WBrtOX1P VCMlTIW4MNNvYPJyTWNkPl GrGPq2WKYcXTpebsQhJPas AjyvYRerO57qhYAyGXxqWg GxXTcjoAtwUBYhENB8GK3A LUEvFgTrG6HWU3kUCG5iY6 xmczIyXHBhciANClxwYXJk MM1UVWWkHYgfIVp8plOnMR MvMwPzLCKdD92fe5RRr6Eu LH8GQSr6sfPzfjwsXmExOU EyvMTDq4LxBOLXThOuANXn bHZtXVUplXZxdqNbLLb7ZO EzcU4yVk6maMIuqQ0pQNrw YmVsZWQgdGhlIHBhdGllbn JewlVdPM4vJPDFSDTvjY0g QDUyJCWuDJR9bQ7sVHUuF8 Gkd5vflI7vMGGyf9b1wYCk GM6bUBTgaqEjw7EiNC6eVF Hyw9haR6evRCLjpTGmpQYf HO62r6flKNRiHqRkjOxvb9 GgEMOeOSktOZ05CVffNtAp rFPhShUpwSFjOnYpQ80eTj AgVGhlIHNwZWNpbWVuIGlz LMCrmIWavfWtWFogpR3aIS RlrK9sm0vrCrHeQQTnSISe dsVdeEBpmJX2VQLvsV2wlQ 79yqYfhgNPYP5rpZDoFG1P UHVaowZvqYCtxEXwPX2AMM VifsWIMpwdd1NmYZ9uZ8Mi OOHYAYPXJ8VkKGIpkwPKKs axes93RLQ0a3dasEVgZDkw VgpeyPNnzgE3EJdFZTWWJF bTGfOnAN5zOOeNQhyKNPdS VizyMQZzRWP8LBxZBOERbH I1tKmfrDn1y3mrnUDme6r6 YYehUJD4fTGxTf5sTLD9EX D8NdNbk6ttzSBkTFomOzzq fHPkpzT2PFoUCCQTEBdIHb DzXN4lJQvCHleNYnL3KcGs LHTtsWV5QGZTQBzdiYw4OV l5nSsgNklclxIysSOzIxYJ iN8snJlvnU5rrVJnU9ssFi NrLwlxHPWuGUnaq4ObLZuc cGljWHNhMzAgDQpcZXBpY0 0kz9VXz3Aqs7qrzBpjr8Om iTOjWP13KLOycMBbIPH9HA 5kfVxwYXIgDQpccGFyZCAN Cn0= Disclaimer (test code = [id number]) i3njmNVvREZir8vfOBHbmE FuZzEwMzNcZnRuYmpcdWMx WNjmjaNaJLkfp3AlB6VnBk AwMFxhbnNpXGRlZmxhbmcx LCCeDMN9xuBxLGHeOYhkDX EgPVluFc9quNRkyRjxXvDs ASMpe6dnftFISRypHmGgV4 59QQIdJYzot3mug6LqNMAq uXQfe7C7THMGncjpwYj2uH awP12se7R7CmocK6umUENu KAYvS7CkJR9zDKKhEzp4HD N8BLJ1OFDvCLVjS5YbIT4n HWOwzXWzCGm7q2zkgCjfVB IoXEH9s9zfQPkzskIvJN5o ql4haZe3j9ljapApHJRnVW JdxDIESQAjU7LduVffTx2b mYr4sKlwPhblFCU2Wap5QL 7jkj81azv5eKnmYAOeaxiw VzZ8UJvrGFEsyglpRYa3EA qwZFMvgTW8VEFbsXBxD5Kc BTPvTG2uifo7JVN7OYlpWE CfDfH7KMRlzVExBHWstRil MNocd528ADC2WbIwPF1bL1 Nim7N6nU2qbVJpMMFarIAg NmFoRZCrjt3uoLAbTKytr3 XdJIZ4gyW5jVOtxMVlNSMv IX76Iezbe5VyKrlln2OcE3 3ivBI6NVsdq9oiIP3vRqN0 yoPzISxgn0nreZ1zSnT7KG rkEB8lIW0uNJKcsU6rgtzc XHBnYnJkcmhlYWRccGdicm GiLx9zhLcmEVA5BItwP9zf bN3gMpK4ESycU1fheS7fFQ m7OMmoaCS5BNVdnD9aPY1a syonz6bvFAybGOicINGgsj N9daA1LXSefVOuW8VnhR1t OALqSS7flqjrg4upQGY2JR rsKXAnRCP9AzNhQYCrs8Qt hvd5DlRdu5KsfLUfGXcwF8 2yu270PXBhbzTrS8lneZLh gnmkyBVyueyxIVjroiL2OM LkazBzp0ZoSDXyNWX7WXga AXxgbKZtUBQmdCubl6tbM5 RscGFyXHBsYWluXGYxXGZz MjBcbGFuZzEwMzNcaGljaF smNQukAjYdMHHoCWnaY6de BpPeD5OoYSWyQfVcfCJbK8 ggVGhpcyByZXBvcnQgbWF5 OXxlZ1t8TSRlstLjhKl4wf WiFdQcGJMaWEE9CBhwxLQv TYVjk0FofylydCIsGm0rtR HtNPOotS3pOECbXLRpJHft QD0qbCn9NWMTrXMykYEpKn TSCVCmUF36wmBlZXAJzneg n4X8HNycJIDab4PisLIfC7 qke9CxFYNyd26fAK1jm9J5 n9wwREC3FE6et8WsLXIcxM NwbLGkVSWlg6Bmooqbi0Kj BGJlhjSmm0PwOWLfriTbmT VeIDIjokBktb9pqzQkQVZk GOKsS2NvkbxsrAlmtwRgEG Zvpm2kktQzKYM8OWQDYXWl TEVzc5SayN1rbEWODOP5cO Ydmf6tshHDmGVeTGHshp91 RKTtDE7lM9edLHAcACNwyl ChwGUcj0DhDCTudRF8hUOc QM1FQzPSt28dGSJtGPSHto IvPBEetXsscWN9ilX5qB7q IChGREEpLlx+IFRoZSBGRE EpKH4fnkFwx2HbudEdiNtc VODogQLio5NvdIKuc5CsxE yfg8ZtdDBtvRXxOG0cKBYp clxwYXIgVVRNQiBMYWJvcm Q5t6LuCLMoVDFjFMI4bZoo fwy3HHCtoX7tIDDhR9urss bjHHxlJTYbz1PucT8ciSAP xNDrx3SojKLbkKGSnMNnQB 9caoGuNMoZFPpSNUA5ezBf PHJzd6FaMPfoH4ofD16oaD eapRf9eHQ2LTA4nZ6gQcd+ IFxwYXJccGFyIEFwcHJvcH FlCGAvoIgqmxXqT9GeprXg jF2xlMKhynEeAP2aEQ8uQ7 X8yPNbFQTkduVyb9qdKDeu dmUgYmVlbiByZXZpZXdlZC Pll0PhAYtiFWB9NUpudaAu bmNsdWRpbmcgSCZFLCBTcG NrnYRjCQG8HJzefrAzubIg FF6meP2ggFybhW2jiOGalM H4uqqzBQYxNSIzfNblYILa DZ5fmNblwW1lIpJbOrKhNE wuOT9pRAEvP0cqfEWbTULs EOWgK3biBqPogC0eqKunSM xjZjJcZnMyMFxwYXJccGFy XHBsYWluXGYxXGZzMjBcbG FuZzEwMzNcaGljaFxmMVxk HtDsMYMoACelE7raHuIkU7 CaWIRfKcWniZFbH1ekIBpd OKL4LQPfIW6uoNHcSL19cM Dtl2fhICstqNwjbl8mG18c uTAcYZjqlAarZLOan96wf6 LhKGCxpnMrbz1jODAhhrS7 nA1fSUKmhOaoSDBorLKwVW Pjz2SdHTdukPMhmjRyBQeo SOLkSGJdnRYkohT7okLejg DmaaNjJLEggFcyVGQmz1Rt CDXsALqcl0Ldku5cbEStRJ VwdmNRvOlcqLCdpQ3fW5Fl YVZmAWBsnk9dGHLthI5qKT giv4SfiiivJNZzJNNtAVVw erMciu6mYNDfvFGVWF0PXS xkcXCqw1ZmieUxT8qXTZS5 NUQwNjYwMjgxKSBleGNlcH XwQKZnsx49YLPziD9vsScs DNOkkZ9kdP8xaGdlnF3kXu OlHvDvYZecDY4sOZDbF0dh lFVvNMQoZTOvK9tkXxAitB 9jaFxmMVxjZjJcZnMyMFxw YXJ9fQ== Embedded Images (test code = 5921014477) [facility] GLUCOSE (AUTOMATED)2024-12-28 15:54:00* Test Item Value Reference Range Interpretation Comme nts POCT GLU (test code = 3123429437) 234 mg/dL 70-110 H Lab Interpretation (test cod e = 29116-4) Abnormal [facility] GLUCOSE (AUTOMATED)2024-12-28 15:54:00* Test Item Value Reference Range Interpretation Comme nts POCT GLU (test code = 9350471247) 234 mg/dL 70-110 H Lab Interpretation (test cod e = 21837-4) Abnormal [facility] GLUCOSE (AUTOMATED)2024-12-28 14:33:29* Test Item Value Reference Range Interpretation Comme nts POCT GLU (test code = 3867311562) 215 mg/dL 70-110 H Lab Interpretation (test cod e = 50339-8) Abnormal [facility] GLUCOSE (AUTOMATED)2024-12-28 14:33:29* Test Item Value Reference Range Interpretation Comme nts POCT GLU (test code = 2416580545) 215 mg/dL 70-110 H Lab Interpretation (test cod e = 07488-8) Abnormal [facility] Urinalysis, [id number] 17:55:00 * Test Item Value Reference Range Interpretation Comme nts POCT U SP GRAV (test code = 3255) 1.010 mg/dl 1.005-1.025 POCT PH U (test code = 3254) 7 mg/dl 5-8 POCT U LEUK EST (test code = 3263) negative Negative - Negative POCT U NIT (test code = 3262) negative Negative - Negati ve POCT U PROT (test code = 3259) negative Negative - Negative POCT U GLU (test code = 3256) negative Negative - Negati ve POCT U KETONE (test code = 3258) negative Negative - Negative POCT U UROBILI (test code = 3260) 0.2 mg/dl 0.2-1 POCT U BILI (test code = 3261) negative Negative - Negative POCT U BLD (test code = 3257) trace Negative - Negati ve POCT U COLOR (test code = 3266) clear POCT U APPEAR (test code = 3267) yellow [facility],[id number] 17:53:00* Test Item Value Reference Range Interpretation Comme nts PVR (URINE VOLUME) (test code = 5193) 187 ml 0-100 [facility]cos[facility] Hemoglobin (A1C)2024-11-07 16:49:01* Test Item Value Reference Range Interpretation Comme nts HGB A1C (test code = 4548-4) 6.5 % 4.0-5.7 H ROLANDO (test code = ROLANDO) Reference RangesNormal: <5.7%Prediabetes: 5.7 - 6.4%Diabetes: > 6.5% Lab Interpretation (test code = 07406-5) [facility]normal [facility] [id number] 16:32:18 * Test Item Value Reference Range Interpretation Comme nts TSH (test code = 7869940849) 1.88 0.45-4.70 Biotin has been reported to cause a negative bias, interpret results relative to patient's use of biotin. Lab Interpretation (test code = 16913-1) Normal [facility] [id number] 16:18:21* Test Item Value Reference Range Interpretation Comme nts FREE T3 (test code = 9600651593) 4.05 pg/mL 2.77-5.27 Lab Interpretation (test cod e = 80514-8) Normal [facility] ([facility])(Total Cholesterol, Triglycerides, HDL)2024-11-07 16:04:03* Test Item Value Reference Range Interpretation Comme nts CHOL (test code = 6056613670) 138 mg/dL 120-200 HDL (test code = 2046639282) 48 mg/dL >=40 HDLC RATIO (test code = 4312310604) 2.9 <=5.0 TRIG (test code = 4535692043) 70 mg/dL 30-170 LDL CHOL (test code = 54583-7) 76 mg/dL <=160 VLDL (test code = 1681454222) 14 mg/dL 5-60 Lab Interpretation (test cod e = 15553-9) Normal [facility] [id number] 15:59:39* Test Item Value Reference Range Interpretation Comme nts FREE T4 (test code = 7282986955) 1.16 ng/dL 0.78-2.20 Lab Interpretation (test cod e = 33629-3) [facility], [id number] 16:19:00 * Test Item Value Reference Range Interpretation Comme nts POCT U SP GRAV (test code = 3255) 1.010 mg/dl 1.005-1.025 POCT PH U (test code = 3254) 7.0 mg/dl 5-8 POCT U LEUK EST (test code = 3263) Trace Negative - Negative A POCT U NIT (test code = 3262) Negative Negative - Negati ve POCT U PROT (test code = 3259) Negative Negative - Negative POCT U GLU (test code = 3256) Negative Negative - Negati ve POCT U KETONE (test code = 3258) Negative Negative - Negative POCT U UROBILI (test code = 3260) 0.2 mg/dl 0.2-1 POCT U BILI (test code = 3261) Negative Negative - Negative POCT U BLD (test code = 3257) Negative Negative - Negati ve POCT U COLOR (test code = 3266) Yellow POCT U APPEAR (test code = 3267) Clear Lab Interpretation (test cod e = 96972-6) [facility],[id number] 00:00:00* Test Item Value Reference Range Interpretation Comme nts PVR (URINE VOLUME) (test code = 5193) 17 ml 0-100 [facility] Urinalysis, [id number] 19:08:00 * Test Item Value Reference Range Interpretation Comme nts POCT U SP GRAV (test code = 3255) 1.015 mg/dl 1.005-1.025 POCT PH U (test code = 3254) 7.0 mg/dl 5-8 POCT U LEUK EST (test code = 3263) Moderate Negative - Negative A POCT U NIT (test code = 3262) Negative Negative - Negati ve POCT U PROT (test code = 3259) 30 Negative - Negative A POCT U GLU (test code = 3256) Negative Negative - Negati ve POCT U KETONE (test code = 3258) Negative Negative - Negative POCT U UROBILI (test code = 3260) 0.2 mg/dl 0.2-1 POCT U BILI (test code = 3261) Negative Negative - Negative POCT U BLD (test code = 3257) Moderate Negative - Negati ve A POCT U COLOR (test code = 3266) Yellow POCT U APPEAR (test code = 3267) Cloudy Lab Interpretation (test cod e = 21004-6) [facility]normal [facility],US,[id number] 19:08:00* Test Item Value Reference Range Interpretation Comme nts PVR (URINE VOLUME) (test code = 5193) 18 ml 0-100 [facility] GLUCOSE (AUTOMATED)2024-08-26 16:30:13* Test Item Value Reference Range Interpretation Comme nts POCT GLU (test code = 6812418939) 213 mg/dL 70-110 H Lab Interpretation (test cod e = 70085-8) Abnormal [facility] GLUCOSE (AUTOMATED)2024-08-26 16:30:13* Test Item Value Reference Range Interpretation Comme nts POCT GLU (test code = 3701178449) 213 mg/dL 70-110 H Lab Interpretation (test cod e = 58843-9) Abnormal [facility] GLUCOSE (AUTOMATED)2024-08-26 12:37:35* Test Item Value Reference Range Interpretation Comme nts POCT GLU (test code = 0925001623) 215 mg/dL 70-110 H Lab Interpretation (test cod e = 38274-4) [facility] 12:37:35* Test Item Value Reference Range Interpretation Comme nts POCT GLU (test code = 3015946512) 215 mg/dL 70-110 H Lab Interpretation (test cod e = 64980-1) [facility]24-[facility]26 01:38:34* Test Item Value Reference Range Interpretation Comme nts POCT GLU (test code = 5048455252) 219 mg/dL 70-110 H Lab Interpretation (test cod e = 67758-2) [facility] 01:38:34* Test Item Value Reference Range Interpretation Comme nts POCT GLU (test code = 7222289879) 219 mg/dL 70-110 H Lab Interpretation (test cod e = 98054-9) Abnormal [facility] GLUCOSE (AUTOMATED)2024-08-25 21:36:35* Test Item Value Reference Range Interpretation Comme nts POCT GLU (test code = 0689136984) 307 mg/dL 70-110 H Lab Interpretation (test cod e = 54763-9) [facility]25 21:36:35* Test Item Value Reference Range Interpretation Comme nts POCT GLU (test code = 1480420206) 307 mg/dL 70-110 H Lab Interpretation (test cod e = 56673-9) [facility]25 18:34:58* Test Item Value Reference Range Interpretation Comme nts POCT GLU (test code = 7744726393) 330 mg/dL 70-110 H Lab Interpretation (test cod e = 61279-8) [facility]25 18:34:58* Test Item Value Reference Range Interpretation Comme nts POCT GLU (test code = 1126886209) 330 mg/dL 70-110 H Lab Interpretation (test cod e = 25489-2) [facility]24-[facility]-25 12:47:32* Test Item Value Reference Range Interpretation Comme nts POCT GLU (test code = 4841960000) 278 mg/dL 70-110 H Lab Interpretation (test cod e = 98295-2) Abnormal [facility] GLUCOSE (AUTOMATED)2024-08-25 12:47:32* Test Item Value Reference Range Interpretation Comme nts POCT GLU (test code = 2354058741) 278 mg/dL 70-110 H Lab Interpretation (test cod e = 07140-0) Abnormal [facility] GLUCOSE (AUTOMATED)2024-08-25 02:03:33* Test Item Value Reference Range Interpretation Comme nts POCT GLU (test code = 6486852756) 189 mg/dL 70-110 H Lab Interpretation (test cod e = 85302-7) Abnormal [facility] GLUCOSE (AUTOMATED)2024-08-25 02:03:33* Test Item Value Reference Range Interpretation Comme nts POCT GLU (test code = 7486869762) 189 mg/dL 70-110 H Lab Interpretation (test cod e = 64796-1) Abnormal [facility]. Metabolic Panel (46840)2024-08-23 17:30:55* Test Item Value Reference Range Interpretation Comme nts NA (test code = 3903460312) 134 mmol/L 135-145 L K (test code = 3316462044) 4.5 mmol/L 3.5-5.0 CL (test code = 6542337739) 100 mmol/L 98-108 CO2 TOTAL (test code = 9321001328) 23 mmol/L 23-31 AGAP (test code = 7322215968) 11 2-16 BUN (test code = 1452852277) 17 mg/dL 7-23 GLUCOSE (test code = 5176699237) 253 mg/dL 70-110 H CREATININE (test code = 2160-0) 0.61 mg/dL 0.60-1.25 TOTAL BILI (test code = 4875655234) 1.0 mg/dL 0.1-1.1 CALCIUM (test code = 7358658593) 9.4 mg/dL 8.6-10.6 T PROTEIN (test code = 4130531378) 7.4 g/dL 6.3-8.2 ALBUMIN (test code = 7073159171) 4.3 g/dL 3.5-5.0 ALK PHOS (test code = 6358474643) 102 U/L 34-122 ALTv (test code = 1742-6) 15 U/L 5-50 AST(SGOT) (test code = 9326800427) 16 U/L 13-40 eGFR (test code = 93510-2) 105.9 mL/min/1.73m2 CKD-EPI eGFR (2020). Assuming creatinine has been stable day-to-day for at least three months, the eGFR indicates Category G1 (>= 90 mL/min/1.73 m2) Lab Interpretation (test code = 22068-1) Abnormal [facility] with [id number] 17:19:31* Test Item Value Reference Range Interpretation Comme nts WBC (test code = 6690-2) 14.06 4.20-10.70 H RBC (test code = 789-8) 5.00 4.26-5.52 HGB (test code = 718-7) 15.3 g/dL 12.2-16.4 HCT (test code = 4544-3) 46.0 % 38.4-49.3 MCV (test code = 787-2) 92.0 fL 81.7-95.6 MCH (test code = 785-6) 30.6 pg 26.1-32.7 MCHC (test code = 786-4) 33.3 g/dL 31.2-35.0 RDW-SD (test code = 08730-0) 42.3 fL 38.5-51.6 RDW-CV (test code = 788-0) 12.4 % 12.1-15.4 PLT (test code = 777-3) 301 150-328 MPV (test code = 21164-1) 9.7 fL 9.8-13.0 L NRBC/100 WBC (test code = 2297342264) 0.0 0.0-10.0 NRBC x10^3 (test code = 4708755443) See_Comment [Automated message] The system which generated this result transmitted reference range: 10*3/?L. The reference range was not used to interpret this result as normal/abnormal. GRAN MAT (NEUT) % (test code = 770-8) 73.1 % IMM GRAN % (test code = 1446890971) 0.40 % LYMPH % (test code = 736-9) 17.4 % MONO % (test code = 5905-5) 8.5 % EOS % (test code = 713-8) 0.1 % BASO % (test code = 706-2) 0.5 % GRAN MAT x10^3(ANC) (test code = 8586309968) 10.29 10*3/uL 1.99-6.95 H IMM GRAN x10^3 (test code = 5677429420) 0.05 10*3/uL 0.00-0.06 LYMPH x10^3 (test code = 731-0) 2.44 10*3/uL 1.09-3.23 MONO x10^3 (test code = 742-7) 1.19 10*3/uL 0.36-1.02 H EOS x10^3 (test code = 711-2) 0.06-0.53 L BASO x10^3 (test code = 704-7) 0.07 10*3/uL 0.01-0.09 Lab Interpretation (test code = 01638-9) [facility]normal [facility],US,[id number] 19:33:00* Test Item Value Reference Range Interpretation Comme nts PVR (URINE VOLUME) (test cod e = 5193) 182 ml 0-100 A Lab Interpretation (test cod e = 92351-7) Abnormal [facility] GLUCOSE (AUTOMATED)2024-08-15 20:53:28* Test Item Value Reference Range Interpretation Comme nts POCT GLU (test code = 1763751135) 129 mg/dL 70-110 H Lab Interpretation (test cod e = 67151-7) Abnormal [facility] GLUCOSE (AUTOMATED)2024-08-15 20:19:56* Test Item Value Reference Range Interpretation Comme nts POCT GLU (test code = 0733598717) 59 mg/dL 70-110 L Lab Interpretation (test cod e = 26110-0) Abnormal [facility] Urinalysis, [id number] 13:37:00 * Test Item Value Reference Range Interpretation Comme nts POCT U SP GRAV (test code = 3255) 1.015 mg/dl 1.005-1.025 POCT PH U (test code = 3254) 6.5 mg/dl 5-8 POCT U LEUK EST (test code = 3263) negative Negative - Negative POCT U NIT (test code = 3262) negative Negative - Negati ve POCT U PROT (test code = 3259) negative Negative - Negative POCT U GLU (test code = 3256) negtive Negative - Negati ve POCT U KETONE (test code = 3258) negative Negative - Negative POCT U UROBILI (test code = 3260) 0.2 mg/dl 0.2-1 POCT U BILI (test code = 3261) negative Negative - Negative POCT U BLD (test code = 3257) negative Negative - Negati ve POCT U COLOR (test code = 3266) yellow POCT U APPEAR (test code = 3267) clear [facility],POST-VOID RES,US,[id number] 00:00:00* Test Item Value Reference Range Interpretation Comme nts PVR (URINE VOLUME) (test code = 5193) 0 ml 0-100 [facility] [id number] 18:35:00 * Test Item Value Reference Range Interpretation Comme nts POCT U SP GRAV (test code = 3255) 1.010 mg/dl 1.005-1.025 POCT PH U (test code = 3254) 7.0 mg/dl 5-8 POCT U LEUK EST (test code = 3263) trace Negative - Negative POCT U NIT (test code = 3262) negative Negative - Negati ve POCT U PROT (test code = 3259) negative Negative - Negative POCT U GLU (test code = 3256) negative Negative - Negati ve POCT U KETONE (test code = 3258) negative Negative - Negative POCT U UROBILI (test code = 3260) 0.2 mg/dl 0.2-1 POCT U BILI (test code = 3261) negative Negative - Negative POCT U BLD (test code = 3257) negative Negative - Negati ve POCT U COLOR (test code = 3266) yellow POCT U APPEAR (test code = 3267) clear [facility],[id number] 00:00:00* Test Item Value Reference Range Interpretation Comme nts PVR (URINE VOLUME) (test cod e = 5193) 184 ml 0-100 A Lab Interpretation (test cod e = 77461-8) Abnormal [facility] GLUCOSE (AUTOMATED)2024-07-10 13:24:26* Test Item Value Reference Range Interpretation Comme nts POCT GLU (test code = 2382783433) 170 mg/dL 70-110 H Lab Interpretation (test cod e = 37826-2) Abnormal [facility] GLUCOSE (AUTOMATED)2024-07-10 05:20:57* Test Item Value Reference Range Interpretation Comme nts POCT GLU (test code = 2258418995) 198 mg/dL 70-110 H Lab Interpretation (test cod e = 44033-0) Abnormal [facility] GLUCOSE (AUTOMATED)2024-07-10 02:14:27* Test Item Value Reference Range Interpretation Comme nts POCT GLU (test code = 4018597122) 72 mg/dL 70-110 Lab Interpretation (test cod e = 46835-4) Normal [facility] GLUCOSE (AUTOMATED)2024-07-09 22:05:58* Test Item Value Reference Range Interpretation Comme nts POCT GLU (test code = 2891716134) 368 mg/dL 70-110 H Lab Interpretation (test cod e = 30967-4) Abnormal [facility] GLUCOSE (AUTOMATED)2024-07-09 16:22:56* Test Item Value Reference Range Interpretation Comme nts POCT GLU (test code = 9620779827) 157 mg/dL 70-110 H Lab Interpretation (test cod e = 79909-1) Abnormal [facility] GLUCOSE (AUTOMATED)2024-07-09 13:27:31* Test Item Value Reference Range Interpretation Comme nts POCT GLU (test code = 8975059920) 129 mg/dL 70-110 H Lab Interpretation (test cod e = 85650-0) Abnormal [facility] GLUCOSE (AUTOMATED)2024-07-09 06:44:52* Test Item Value Reference Range Interpretation Comme nts POCT GLU (test code = 1523764656) 164 mg/dL 70-110 H Lab Interpretation (test cod e = 34792-5) Abnormal [facility] GLUCOSE (AUTOMATED)2024-07-09 01:40:51* Test Item Value Reference Range Interpretation Comme [facility] POCT GLU (test code = 9928894415) 181 mg/dL 70-110 H Lab Interpretation (test cod e = 40326-4) Abnormal [facility] GLUCOSE (AUTOMATED)2024-07-08 22:37:26* Test Item Value Reference Range Interpretation Comme [facility] POCT GLU (test code = 6892676186) 104 mg/dL 70-110 Lab Interpretation (test cod e = 17077-7) [facility] [id number] 22:06:45* Test Item Value Reference Range Interpretation Comme [facility] Height (test code = 1246408709) 72 in Weight (test code = 5723014830) 159 lbs Systolic BP (test code = 1784737652) 143 mmHg Diastolic BP (test code = 0492971118) 79 mmHg Heart Rate (test code = 0739622136) 72 bpm LVOT stroke volume (test code = 7648439276) 52.00 cm3 EF(Teich) (test code = 2438224984) 35.90 % LVIDD (test code = 4780436662) 4.60 cm LVIDS (test code = 3161945756) 3.80 cm Left Ventricular End Systolic Volume by Teichholz Method (test code = 5814009) 62.2 mL Left Ventricular End Diastolic Volume by Teichholz Method (test code = 4089688) 97.0 mL IVS (test code = 9848277891) 0.96 cm LVPWD (test code = 3072041677) 0.93 cm LVOT diameter (test code = 2873961156) 1.81 cm LVOT area (test code = 2364066692) 2.60 cm2 FS (test code = 3326358480) 17 % MV Peak E Riddhi (test code = 2606920500) 43.5 cm/s MV Peak A Riddhi (test code = 6036730074) 60.8 cm/s E/A ratio (test code = 9181221696) 0.72 ratio MV E/e' septal (test code = 4679555322) 13.2 cm/s LA Volume Index (BP) (test code = 1110723726) 25.6 mL/m2 LA volume (BP) (test code = 4401087955) 49.4 mL LVOT peak riddhi (test code = 7923114090) 88.0 cm/s LVOT mn grad (test code = 4251751116) 1.5 mmHg Left Ventricular Cardiac Output (test code = 7240176) 3.5 L/min BSA (test code = 6954336550) 1.93 m2 LA size (test code = 3342863379) 2.9 cm LAV(MOD-sp2) (test code = 4431899205) 62.10 mL LAV(MOD-sp4) (test code = 7121721157) 38.40 mL Tapse (test code = 0750151641) 1.04 cm AV LVOT peak gradient (test code = 3030407138) 3.1 mmHg LVOT peak VTI (test code = 5561831298) 20.3 cm Aortic HR (test code = 9585362584) 67.20 BPM LV V1 mean (test code = 5696034617) 56.20 cm/s MV Prop V (test code = 1178697919) 32.50 cm/s TR Peak Riddhi (test code = 9466427851) 198.2 cm/s Triscuspid Valve Regurgitation Peak Gradient (test code = 7597040842) 15.7 mmHg Ao root diam (test code = 7656224271) 4.00 cm Aortic root (test code = 0910254159) 4.0 cm Ao root annulus (test code = 9470232425) 4.0 cm PW (test code = 6740277762) 0.93 cm 0.6-1.1 EF - 2D (test code = 83161414) 35.90 % Interventricular Septum Diastolic Thickness by 2D (test code = 7236777) 0.96 cm A4C EF (test code = 1528508853) 46.90 % EF(sp4-el) (test code = 8345072568) 48.00 % SV(MOD-sp4) (test code = 7531258759) 62.10 mL SV(sp4-el) (test code = 8768621002) 64.80 mL LV Diastolic Volume (BP) (test code = 6423797760) 105.1 mL A2C EF (test code = 9797481166) 52.60 % EF(MOD-bp) (test code = 3907710624) 50.10 % EF(sp2-el) (test code = 3025315399) 53.50 % LV Systolic Volume (BP) (test code = 5914895595) 52.4 mL SV(MOD-bp) (test code = 7213127888) 52.70 mL SV(MOD-sp2) (test code = 8059316727) 40.70 mL EF (test code = 0258412307) 50 Left Ventricular Stroke Volume by 2-D Biplane-MOD (test code = 8698458) 52.7 mL RV-peck basal d (test code = 0185933629) 4.30 cm RV-peck mid d (test code = 0416725775) 3.9 cm LV Diastolic Volume Index (BP) (test code = 8488779257) 57.5 mL/m2 LV Systolic Volume Index (BP) (test code = 3971073627) 32.1 mL/m2 Radiology Study observation (narrative) (test code = 07413-4) ROLANDO (test code = ROLANDO) ?Left?Ventricle: Left ventricle size is normal. Normal wall thickness. Septal motion is normal. . Regional wall motion abnormalities present. Hypokinetic basal to mid anterolateral wall. Mildly reduced systolic function with a visually estimated EF of 45 - 50%. There is grade 1 diastolic dysfunction. Normal left ventricular filling pressure. ?Left?Atrium: Left atrium size is normal. PFO present with a right to left shunt viewable by saline contrast. ?Right?Ventricle: Right ventricle is mildly dilated. Reduced systolic function. ?Mitral?Valve: Mitral valve is normal in structure and function. No transvalvular regurgitation. No stenosis. ?Tricuspid?Valve: Tricuspid valve is normal size and function. Trace transvalvular regurgitation. Right ventricular systolic pressure is 15-20 mmHg. No stenosis. ?IVC/SVC: IVC diameter is less than or equal to 21 mm and decreases greater than 50% during inspiration; therefore the estimated right atrial pressure is normal (~0-5 mmHg). ?Pericardium: The pericardium is normal. No pericardial effusion. Left VentricleLeft ventricle size is normal. Normal wall thickness. Septal motion is normal. . Regional wall motion abnormalities present. Hypokinetic basal to mid anterolateral wall. Mildly reduced systolic function with a visually estimated EF of 45 - 50%. There is grade 1 diastolic dysfunction. Normal left ventricular filling pressure.Right VentricleRight ventricle is mildly dilated. Reduced systolic function.Left AtriumLeft atrium size is normal. PFO present with a right to left shunt viewable by saline contrast.Right AtriumRight atrium size is normal.IVC/SVCIVC diameter is less than or equal to 21 mm and decreases greater than 50% during inspiration; therefore the estimated right atrial pressure is normal (~0-5 mmHg).Mitral ValveMitral valve is normal in structure and function. No transvalvular regurgitation. No stenosis.Tricuspid ValveTricuspid valve is normal size and function. Trace transvalvular regurgitation. Right ventricular systolic pressure is 15-20 mmHg. No stenosis.Aortic ValveAortic valve structure is normal. No transvalvular regurgitation. No hemodynamically significant .Pulmonic ValvePulmonic valve is normal in structure and function.Ascending AortaNormal sized annulus and aortic root.PericardiumThe pericardium is normal. No pericardial effusion.Study DetailsStudy quality was adequate. A complete echocardiogram was performed using 2D, color flow Doppler and spectral Doppler. 2 mL of Definity ultrasound enhancing agent used and saline contrast was performed. Patient exhibited sinus rhythm.Wall Scoring BaselineScore Index: 2.00The following segments are hypokinetic: basal anterolateral and mid anterolateral.Other segments could not be evaluated. [facility] [id number] 20:23:06 MR STROKE BRAIN WO CONTRAST HISTORY: Male 68 years Neuro deficit, acute, stroke suspected S/SX, Dx:Stroke COMPARISON: CT head dated 07/07/2024 TECHNIQUE: Multiplanar multi weighted imaging of the brain was obtainedwithout IV contrast FINDINGS: Postsurgical changes of left convexity craniotomy are again noted.Hemosiderin staining is noted along the surface of the left convexitysubjacent to the craniotomy. The ventricles and cerebral sulci are prominent, consistent with mildglobal volume loss. No hydrocephalus, midline shift or pathologicalextra-axial fluid collection is present. The basal cisterns areunremarkable. No restricted diffusion is present to suggest acute-subacute ischemia. Afew scattered small foci of hyperintense T2/FLAIR signal in the biconvexitydeep white matter are nonspecific and likely represent ischemic smallvessel change. Numerous remote lacunar infarcts are seen in the cerebellarhemispheres. No focus of abnormal parenchymal susceptibility signal loss ispresent. No abnormal fluid signal is present in the mastoid air cells and paranasalair sinuses.[facility] 2024-[facility]-08 17:15:23* Test Item Value Reference Range Interpretation Comme nts POCT GLU (test code = 8209624117) 171 mg/dL 70-110 H Lab Interpretation (test cod e = 04090-5) [facility]normal [facility] [id number] 14:06:28CT ANGIOGRAM NECK, CT ANGIOGRAM HEAD PROVIDED INDICATION: 68 years-old Male; right- sided weakness and numbness.. COMPARISON: CT angiogram head and neck dated 06/04/2024 TECHNIQUE: ?CT angiography of the head and neck was performed after theadministration of IV contrast with MIPS, coronal and sagittalreconstructions. Vascular measurements of stenosis were made according tothe NASCET criteria. FINDINGS: CTA NECK: Classic three vessel branching anatomy of the aortic arch. There areatherosclerotic plaques of the aortic arch result in no significant luminalnarrowing or arch vessel origin stenosis. The innominate and bilateralsubclavian arteries are patent. Atherosclerotic plaques are seen in the bilateral carotid bulbs, resultingin mild stenosis. The bilateral common carotid and cervical internalcarotid are patent. The right vertebral artery is patent throughout it's course up to thevertibrobasilar junction. Calcified atherosclerotic plaque is seen in the left vertebral arteryorigin, resulting in moderate stenosis. Scattered atherosclerotic plaquesand multifocal stenotic segments are alsoseen throughout the nondominantleft vertebral artery course. Focal at least moderate stenosis of theintradural left vertebral artery. No evidence of dissection or pseudoaneurysm. The soft tissues of the neck are grossly unremarkable. The visualized lungsare clear. The visualized cervical spine appears unremarkable. CTA HEAD: The PICA origin is visualized on the left side. right sided AICA/PICAvariant is suspected. The basilar artery is normal in caliber. The superiorcerebellar arteries are unremarkable. The posterior cerebral arteries areunremarkable. The right posterior communicating arteries are unremarkable.The left posterior communicating artery is faintly visualized. Atherosclerotic calcifications are seen in the bilateral carotid siphons,resulting in mild stenosis of the bilateral paraclinoid ICAs. The anterior and middle cerebral arteries are unremarkable. An anteriorcommunicating artery is visualized. There is no aneurysm, arterial occlusion, or vascular malformation. Postsurgical changes of left frontoparietal craniotomy are seen. [facility] [id number] 14:06:28CT ANGIOGRAM NECK, CT ANGIOGRAM HEAD PROVIDED INDICATION: 68 years-old Male; right- sided weakness and numbness.. COMPARISON: CT angiogram head and neck dated 06/04/2024 TECHNIQUE: ?CT angiography of the head and neck was performed after theadministration of IV contrast with MIPS, coronal and sagittalreconstructions. Vascular measurements of stenosis were made according tothe NASCET criteria. FINDINGS: CTA NECK: Classic three vessel branching anatomy of the aortic arch. There areatherosclerotic plaques of the aortic arch result in no significant luminalnarrowing or arch vessel origin stenosis. The innominate and bilateralsubclavian arteries are patent. Atherosclerotic plaques are seen in the bilateral carotid bulbs, resultingin mild stenosis. The bilateral common carotid and cervical internalcarotid are patent. The right vertebral artery is patent throughout it's course up to thevertibrobasilar junction. Calcified atherosclerotic plaque is seen in the left vertebral arteryorigin, resulting in moderate stenosis. Scattered atherosclerotic plaquesand multifocal stenotic segments are alsoseen throughout the nondominantleft vertebral artery course. Focal at least moderate stenosis of theintradural left vertebral artery. No evidence of dissection or pseudoaneurysm. The soft tissues of the neck are grossly unremarkable. The visualized lungsare clear. The visualized cervical spine appears unremarkable. CTA HEAD: The PICA origin is visualized on the left side. right sided AICA/PICAvariant is suspected. The basilar artery is normal in caliber. The superiorcerebellar arteries are unremarkable. The posterior cerebral arteries areunremarkable. The right posterior communicating arteries are unremarkable.The left posterior communicating artery is faintly visualized. Atherosclerotic calcifications are seen in the bilateral carotid siphons,resulting in mild stenosis of the bilateral paraclinoid ICAs. The anterior and middle cerebral arteries are unremarkable. An anteriorcommunicating artery is visualized. There is no aneurysm, arterial occlusion, or vascular malformation. Postsurgical changes of left frontoparietal craniotomy are seen. [facility] 13:20:20* Test Item Value Reference Range Interpretation Comme nts POCT GLU (test code = 1745986260) 241 mg/dL 70-110 H Lab Interpretation (test cod e = 18761-0) Abnormal [facility] GLUCOSE (AUTOMATED)2024-07-08 10:55:19* Test Item Value Reference Range Interpretation Comme nts POCT GLU (test code = 3917724568) 222 mg/dL 70-110 H Lab Interpretation (test cod e = 89748-8) Abnormal [facility] GLUCOSE (AUTOMATED)2024-07-08 02:05:17* Test Item Value Reference Range Interpretation Comme nts POCT GLU (test code = 0743217636) 139 mg/dL 70-110 H Lab Interpretation (test cod e = 26504-6) Abnormal [facility] Lipd Panel (82709)(TOTAL CHOLESTEROL, TRIGLYCERIDES, HDL)2024-07-08 01:01:17* Test Item Value Reference Range Interpretation Comme nts CHOL (test code = 3645874912) 104 mg/dL 120-200 L HDL (test code = 2720769866) 35 mg/dL >=40 L HDLC RATIO (test code = 2330300012) 3.0 <=5.0 TRIG (test code = 1809201304) 60 mg/dL 30-170 LDL CHOL (test code = 48790-2) 57 mg/dL <=160 VLDL (test code = 5712088447) 12 mg/dL 5-60 Lab Interpretation (test cod e = 56955-4) Abnormal [facility] HEAD WO [id number] 00:48:08EXAM: CT HEAD WO CONTRAST HISTORY: 68 years-old Male who presents for right-sided weakness andnumbness for months. TECHNIQUE: Axial CT of the head was performed and reconstructed at 5 mmintervals. Coronal and sagittal reformatted images were generated. COMPARISON: CT head 03/03/2024 FINDINGS: Postsurgical changes of left frontoparietal craniotomy. The ventricles and cerebral sulci are normal in adilson bela and configuration.No hydrocephalus, midline shift or pathological extra- axial fluidcollection is present. The basal cisterns are unremarkable. No acute intracranial hemorrhage or significant masseffect is visualized.Right parietal volume loss is unchanged. A 5 mm left basal gangliahypodensity is unchanged in likely a prominent perivascular space.Periventricular and deep white matter hypodensities are nonspecific but canbe seen with chronic small vessel ischemic changes. The menon-white matterdifferentiation is preserved. The mastoid air cells and paranasal air sinuses are clear. The calvariumand central skull base are unremarkable.[facility] [id number] 23:06:01 * Test Item Value Reference Range Interpretation Comme nts TROPONIN I (test code = 8087865343) 0.003 ng/mL <=0.034 ROLANDO (test code = ROLANDO) [...] of biotin. Lab Interpretation (test code = 29268-6) [facility] (NA, K, CL, CO2, GLUCOSE, BUN, CREATININE, CA)2024-07-07 22:55:20* Test Item Value Reference Range Interpretation Comme nts NA (test code = 5027239311) 140 mmol/L 135-145 K (test code = 3544888890) 3.9 mmol/L 3.5-5.0 CL (test code = 4025337168) 108 mmol/L 98-108 CO2 TOTAL (test code = 8667518571) 23 mmol/L 23-31 AGAP (test code = 2470677567) 9 2-16 BUN (test code = 9348177498) 11 mg/dL 7-23 GLUCOSE (test code = 9549017317) 111 mg/dL 70-110 H CREATININE (test code = 2160-0) 0.48 mg/dL 0.60-1.25 L CALCIUM (test code = 5462790068) 9.5 mg/dL 8.6-10.6 eGFR (test code = 25519-8) 113.9 mL/min/1.73m2 CKD-EPI eGFR (2020). Assuming creatinine has been stable day-to-day for at least three months, the eGFR indicates Category G1 (>= 90 mL/min/1.73 m2) Lab Interpretation (test code = 50602-4) Abnormal [facility] WITH [id number] 22:35:57* Test Item Value Reference Range Interpretation Comme nts WBC (test code = 6690-2) 7.55 4.20-10.70 RBC (test code = 789-8) 4.96 4.26-5.52 HGB (test code = 718-7) 15.1 g/dL 12.2-16.4 HCT (test code = 4544-3) 43.7 % 38.4-49.3 MCV (test code = 787-2) 88.1 fL 81.7-95.6 MCH (test code = 785-6) 30.4 pg 26.1-32.7 MCHC (test code = 786-4) 34.6 g/dL 31.2-35.0 RDW-SD (test code = 68954-5) 41.4 fL 38.5-51.6 RDW-CV (test code = 788-0) 12.7 % 12.1-15.4 PLT (test code = 777-3) 267 150-328 MPV (test code = 67292-8) 10.4 fL 9.8-13.0 NRBC/100 WBC (test code = 5727903267) 0.0 0.0-10.0 NRBC x10^3 (test code = 0755883375) See_Comment [Automated me ssage] The system which generated this result transmitted reference range: 10*3/?L. The reference range was not used to interpret this result as normal/abnormal. GRAN MAT (NEUT) % (test code = 770-8) 69.1 % IMM GRAN % (test code = 5663439024) 0.10 % LYMPH % (test code = 736-9) 22.4 % MONO % (test code = 5905-5) 7.2 % EOS % (test code = 713-8) 0.8 % BASO % (test code = 706-2) 0.4 % GRAN MAT x10^3(ANC) (test code = 3479894599) 5.22 10*3/uL 1.99-6.95 IMM GRAN x10^3 (test code = 8763162544) 0.00-0.06 LYMPH x10^3 (test code = 731-0) 1.69 10*3/uL 1.09-3.23 MONO x10^3 (test code = 742-7) 0.54 10*3/uL 0.36-1.02 EOS x10^3 (test code = 711-2) 0.06 10*3/uL 0.06-0.53 BASO x10^3 (test code = 704-7) 0.03 10*3/uL 0.01-0.09 [facility] ABDOMINAL AORTA SCREEN [id number] 15:17:23HISTORY: ?AAA screening. COMPARISON: None. TECHNIQUE: Abdominal aorta including bifurcation evaluated in multipleplanes without and with color interrogation. FINDINGS: Proximal abdominal aorta is 2.3x 2.4 cm, mid segment is 2.0 x2.8 cm and distal segment is 1.4 x 2.0 cm with mild diffuse atheroscle rosisis noted. Aortic bifurcation appears normal. Right common iliac artery is10 mm and left commoniliac artery is 11 to 12 mm in average diameter. CONCLUSIONS: Mild atherosclerosis of lower abdominal aorta. No AAA.[facility] [id number] 18:38:38* Test Item Value Reference Range Interpretation Comme nts TSH (test code = 2541857005) 1.31 0.45-4.70 Lab Interpretation (test cod e = 17750-0) Normal [facility] [id number] 18:24:57* Test Item Value Reference Range Interpretation Comme nts FREE T4 (test code = 9779954836) 1.30 0.78-2.20 Lab Interpretation (test cod e = 96997-2) [facility] [id number] 18:24:56* Test Item Value Reference Range Interpretation Comme nts FREE T3 (test code = 7032969463) 3.86 pg/mL 2.77-5.27 Lab Interpretation (test cod e = 76267-8) Normal [facility] (59841)(Total Cholesterol, Triglycerides, HDL)2024-05-31 18:08:31* Test Item Value Reference Range Interpretation Comme nts CHOL (test code = 2664121722) 167 mg/dL 120-200 HDL (test code = 0307746052) 32 mg/dL >=40 L HDLC RATIO (test code = 2521096661) 5.2 <=5.0 H TRIG (test code = 3576671744) 74 mg/dL 30-170 LDL CHOL (test code = 17990-1) 120 mg/dL <=160 VLDL (test code = 0496012727) 15 mg/dL 5-60 Lab Interpretation (test cod e = 49240-7) Abnormal [facility] (96999)2024-05-31 18:08:11* Test Item Value Reference Range Interpretation Comme nts NA (test code = 4547633893) 139 mmol/L 135-145 K (test code = 0040565181) 4.4 mmol/L 3.5-5.0 CL (test code = 9423296879) 102 mmol/L 98-108 CO2 TOTAL (test code = 5134323737) 26 mmol/L 23-31 AGAP (test code = 4188618927) 11 2-16 BUN (test code = 8699591046) 12 mg/dL 7-23 GLUCOSE (test code = 6803589495) 137 mg/dL 70-110 H CREATININE (test code = 2160-0) 0.55 mg/dL 0.60-1.25 L TOTAL BILI (test code = 9839772340) 1.0 mg/dL 0.1-1.1 CALCIUM (test code = 3906223083) 9.6 mg/dL 8.6-10.6 T PROTEIN (test code = 8634376773) 7.2 g/dL 6.3-8.2 ALBUMIN (test code = 8251628304) 4.2 g/dL 3.5-5.0 ALK PHOS (test code = 6723721484) 72 U/L 34-122 ALTv (test code = 1742-6) 22 U/L 5-50 AST(SGOT) (test code = 6930502014) 22 U/L 13-40 eGFR (test code = 72751-9) 109.3 mL/min/1.73m2 CKD-EPI eGFR (2020). Assuming creatinine has been stable day-to-day for at least three months, the eGFR indicates Category G1 (>= 90 mL/min/1.73 m2) Lab Interpretation (test code = 17440-9) [facility]normal [facility]ylated Hemoglobin (A1C)2024-05-31 18:07:20* Test Item Value Reference Range Interpretation Comme nts HGB A1C (test code = 4548-4) 7.2 % 4.0-5.7 H ROLANDO (test code = ROLANDO) Reference RangesNormal: <5.7%Prediabetes: 5.7 - 6.4%Diabetes: > 6.5% Lab Interpretation (test code = 15056-4) Abnormal [facility] with [id number] 17:12:34* Test Item Value Reference Range Interpretation [...] 34.0 g/dL 31.2-35.0 RDW-SD (test code = 52311-6) 38.8 fL 38.5-51.6 RDW-CV (test code = 788-0) 11.9 % 12.1-15.4 L PLT (test code = 777-3) 305 150-328 MPV (test code = 14570-8) 9.5 fL 9.8-13.0 L NRBC/100 WBC (test code = 2065894465) 0.0 0.0-10.0 NRBC x10^3 (test code = 8145811015) See_Comment [Automated messa ge] The system which generated this result transmitted reference range: 10*3/?L. The reference range was not used to interpret this result as normal/abnormal. GRAN MAT (NEUT) % (test code = 770-8) 42.1 % IMM GRAN % (test code = 3479237376) 0.20 % LYMPH % (test code = 736-9) 48.3 % MONO % (test code = 5905-5) 7.6 % EOS % (test code = 713-8) 1.3 % BASO % (test code = 706-2) 0.5 % GRAN MAT x10^3(ANC) (test code = 1106185658) 2.34 10*3/uL 1.99-6.95 IMM GRAN x10^3 (test code = 9073822016) 0.00-0.06 LYMPH x10^3 (test code = 731-0) 2.68 10*3/uL 1.09-3.23 MONO x10^3 (test code = 742-7) 0.42 10*3/uL 0.36-1.02 EOS x10^3 (test code = 711-2) 0.07 10*3/uL 0.06-0.53 BASO x10^3 (test code = 704-7) 0.03 10*3/uL 0.01-0.09 Lab Interpretation (test code = 97701-5) Abnormal [facility] GLUCOSE (AUTOMATED)2024-03-24 13:42:45* Test Item Value Reference Range Interpretation Comme nts POCT GLU (test code = 1852682555) 100 mg/dL 70-110 Lab Interpretation (test cod e = 91168-5) Normal [facility] GLUCOSE (AUTOMATED)2024-03-23 21:56:53* Test Item Value Reference Range Interpretation Comme nts POCT GLU (test code = 2319759651) 159 mg/dL 70-110 H Lab Interpretation (test cod e = 18870-1) Abnormal [facility] GLUCOSE (AUTOMATED)2024-03-23 20:50:05* Test Item Value Reference Range Interpretation Comme nts POCT GLU (test code = 3137408944) 164 mg/dL 70-110 H Lab Interpretation (test cod e = 40212-9) Abnormal [facility] GLUCOSE (AUTOMATED)2024-03-23 16:49:23* Test Item Value Reference Range Interpretation Comme nts POCT GLU (test code = 0237923536) 227 mg/dL 70-110 H Lab Interpretation (test cod e = 04441-5) [facility] 16:49:23* Test Item Value Reference Range Interpretation Comme nts POCT GLU (test code = 9129051114) 227 mg/dL 70-110 H Lab Interpretation (test cod e = 41886-0) Abnormal [facility] GLUCOSE (AUTOMATED)2024-03-23 12:35:20* Test Item Value Reference Range Interpretation Comme nts POCT GLU (test code = 8016042452) 195 mg/dL 70-110 H Lab Interpretation (test cod e = 01353-1) Abnormal [facility] GLUCOSE (AUTOMATED)2024-03-23 12:35:20* Test Item Value Reference Range Interpretation Comme nts POCT GLU (test code = 0604859252) 195 mg/dL 70-110 H Lab Interpretation (test cod e = 64357-3) Abnormal [facility] GLUCOSE (AUTOMATED)2024-03-23 02:16:55* Test Item Value Reference Range Interpretation Comme nts POCT GLU (test code = 6873414745) 240 mg/dL 70-110 H Lab Interpretation (test cod e = 62823-4) Abnormal [facility] GLUCOSE (AUTOMATED)2024-03-23 02:16:55* Test Item Value Reference Range Interpretation Comme nts POCT GLU (test code = 3295379747) 240 mg/dL 70-110 H Lab Interpretation (test cod e = 31236-6) [facility]24-03-22 22:23:53* Test Item Value Reference Range Interpretation Comme nts POCT GLU (test code = 1634785929) 266 mg/dL 70-110 H Lab Interpretation (test cod e = 97355-6) Abnormal [facility] GLUCOSE (AUTOMATED)2024-03-22 22:23:53* Test Item Value Reference Range Interpretation Comme nts POCT GLU (test code = 9537868076) 266 mg/dL 70-110 H Lab Interpretation (test cod e = 39674-6) Abnormal [facility] GLUCOSE (AUTOMATED)2024-03-22 18:12:55* Test Item Value Reference Range Interpretation Comme nts POCT GLU (test code = 3110822732) 269 mg/dL 70-110 H Notified Provide r Lab Interpretation (test code = 82334-3) Abnormal [facility] GLUCOSE (AUTOMATED)2024-03-22 18:12:55* Test Item Value Reference Range Interpretation Comme nts POCT GLU (test code = 5860649099) 269 mg/dL 70-110 H Notified Provide r Lab Interpretation (test code = 95597-9) [facility]normal [facility]2024-[facility]-28 17:14:17* Test Item Value Reference Range Interpretation Comme nts MAGNESIUM (test code = 4408354756) 1.7 mg/dL 1.7-2.4 Lab Interpretation (test cod e = 81322-2) Normal [facility]2024-05-28 17:14:17* Test Item Value Reference Range Interpretation Comme nts PHOSPHORUS (test code = 0491571341) 3.0 mg/dL 2.5-5.0 Lab Interpretation (test cod e = 05138-3) [facility] (NA, K, CL, CO2, GLUCOSE, BUN, CREATININE, CA)2024-03-22 17:14:17* Test Item Value Reference Range Interpretation Comme nts NA (test code = 9648636453) 137 mmol/L 135-145 K (test code = 6093505541) 4.0 mmol/L 3.5-5.0 CL (test code = 3661774446) 109 mmol/L 98-108 H CO2 TOTAL (test code = 7802984631) 24 mmol/L 23-31 AGAP (test code = 2321908157) 4 2-16 BUN (test code = 1695169655) 14 mg/dL 7-23 GLUCOSE (test code = 3967604270) 238 mg/dL 70-110 H CREATININE (test code = 2160-0) 0.56 mg/dL 0.60-1.25 L CALCIUM (test code = 1452986566) 8.2 mg/dL 8.6-10.6 L eGFR (test code = 05969-7) 108.7 mL/min/1.73m2 CKD-EPI eGFR (2020). Assuming creatinine has been stable day-to-day for at least three months, the eGFR indicates Category G1 (>= 90 mL/min/1.73 m2) Lab Interpretation (test code = 42315-7) [facility]normal [facility]2024-05-28 17:14:17* Test Item Value Reference Range Interpretation Comme nts MAGNESIUM (test code = 5943966062) 1.7 mg/dL 1.7-2.4 Lab Interpretation (test cod e = 71698-2) Normal [facility]2024-05-28 17:14:17* Test Item Value Reference Range Interpretation Comme nts PHOSPHORUS (test code = 5575777083) 3.0 mg/dL 2.5-5.0 Lab Interpretation (test cod e = 04214-5) Normal [facility] (NA, K, CL, CO2, GLUCOSE, BUN, CREATININE, CA)2024-03-22 17:14:17* Test Item Value Reference Range Interpretation Comme nts NA (test code = 9459286865) 137 mmol/L 135-145 K (test code = 0843974188) 4.0 mmol/L 3.5-5.0 CL (test code = 3893624516) 109 mmol/L 98-108 H CO2 TOTAL (test code = 6138607172) 24 mmol/L 23-31 AGAP (test code = 4207269796) 4 2-16 BUN (test code = 6820725942) 14 mg/dL 7-23 GLUCOSE (test code = 4355095840) 238 mg/dL 70-110 H CREATININE (test code = 2160-0) 0.56 mg/dL 0.60-1.25 L CALCIUM (test code = 4137672423) 8.2 mg/dL 8.6-10.6 L eGFR (test code = 07566-0) 108.7 mL/min/1.73m2 CKD-EPI eGFR (2020). Assuming creatinine has been stable day-to-day for at least three months, the eGFR indicates Category G1 (>= 90 mL/min/1.73 m2) Lab Interpretation (test code = 63857-2) Abnormal [facility] with [id number] 16:43:11* Test Item Value Reference Range Interpretation [...] 33.5 g/dL 31.2-35.0 RDW-SD (test code = 34627-2) 39.9 fL 38.5-51.6 RDW-CV (test code = 788-0) 12.1 % 12.1-15.4 PLT (test code = 777-3) 229 150-328 MPV (test code = 14815-9) 10.0 fL 9.8-13.0 NRBC/100 WBC (test code = 1079202529) 0.0 0.0-10.0 NRBC x10^3 (test code = 0390378128) See_Comment [Automated messa ge] The system which generated this result transmitted reference range: 10*3/?L. The reference range was not used to interpret this result as normal/abnormal. GRAN MAT (NEUT) % (test code = 770-8) 82.8 % IMM GRAN % (test code = 1533885741) 0.40 % LYMPH % (test code = 736-9) 14.6 % MONO % (test code = 5905-5) 1.4 % EOS % (test code = 713-8) 0.4 % BASO % (test code = 706-2) 0.4 % GRAN MAT x10^3(ANC) (test code = 7535986492) 4.66 10*3/uL 1.99-6.95 IMM GRAN x10^3 (test code = 3216185695) 0.00-0.06 LYMPH x10^3 (test code = 731-0) 0.82 10*3/uL 1.09-3.23 L MONO x10^3 (test code = 742-7) 0.08 10*3/uL 0.36-1.02 L EOS x10^3 (test code = 711-2) 0.06-0.53 L BASO x10^3 (test code = 704-7) 0.01-0.09 Lab Interpretation (test code = 59970-3) Abnormal [facility] with [id number] 16:43:11* Test Item Value Reference Range Interpretation [...] 33.5 g/dL 31.2-35.0 RDW-SD (test code = 65070-0) 39.9 fL 38.5-51.6 RDW-CV (test code = 788-0) 12.1 % 12.1-15.4 PLT (test code = 777-3) 229 150-328 MPV (test code = 30535-4) 10.0 fL 9.8-13.0 NRBC/100 WBC (test code = 0369355523) 0.0 0.0-10.0 NRBC x10^3 (test code = 4876420311) See_Comment [Automated messa ge] The system which generated this result transmitted reference range: 10*3/?L. The reference range was not used to interpret this result as normal/abnormal. GRAN MAT (NEUT) % (test code = 770-8) 82.8 % IMM GRAN % (test code = 1103645980) 0.40 % LYMPH % (test code = 736-9) 14.6 % MONO % (test code = 5905-5) 1.4 % EOS % (test code = 713-8) 0.4 % BASO % (test code = 706-2) 0.4 % GRAN MAT x10^3(ANC) (test code = 9352656795) 4.66 10*3/uL 1.99-6.95 IMM GRAN x10^3 (test code = 0934265617) 0.00-0.06 LYMPH x10^3 (test code = 731-0) 0.82 10*3/uL 1.09-3.23 L MONO x10^3 (test code = 742-7) 0.08 10*3/uL 0.36-1.02 L EOS x10^3 (test code = 711-2) 0.06-0.53 L BASO x10^3 (test code = 704-7) 0.01-0.09 Lab Interpretation (test code = 46669-3) Abnormal [facility] GLUCOSE (AUTOMATED)2024-03-22 16:30:20* Test Item Value Reference Range Interpretation Comme nts POCT GLU (test code = 5574775696) 250 mg/dL 70-110 H Lab Interpretation (test cod e = 39560-0) Abnormal [facility] GLUCOSE (AUTOMATED)2024-03-22 16:30:20* Test Item Value Reference Range Interpretation Comme nts POCT GLU (test code = 7795949994) 250 mg/dL 70-110 H Lab Interpretation (test cod e = 86540-4) Abnormal [facility] Confirmation (Lab Only)2024-03-22 12:34:24* Test Item Value Reference Range Interpretation Comme nts ABO & RH (test code = 20) A Positive Performed at [facility] Laboratory Services [facility] Blood [address] [address]Yxpc Free: [phone] No. [id number] [facility] Confirmation (Lab Only)2024-03-22 12:34:24* Test Item Value Reference Range Interpretation Comme nts ABO & RH (test code = 20) A Positive Performed at [facility] Laboratory Services [facility] Blood [address] [address]Erqh Free: [phone] No. [id number] [facility] GLUCOSE (AUTOMATED)2024-03-22 10:48:44* Test Item Value Reference Range Interpretation Comme nts POCT GLU (test code = 8039749346) 204 mg/dL 70-110 H Lab Interpretation (test cod e = 16839-1) Abnormal [facility] GLUCOSE (AUTOMATED)2024-03-22 10:48:44* Test Item Value Reference Range Interpretation Comme nts POCT GLU (test code = 1281783208) 204 mg/dL 70-110 H Lab Interpretation (test cod e = 26224-6) Abnormal [facility] Bayhrun3823-93-21 00:00:00* Test Item Value Reference Range Interpretation Comme nts POCT Glu (age>30days) (test code = 3342) 204 mg/dL 70-110 A Lab Interpretation (test cod e = 08341-4) Abnormal [facility] Ukeodic9244-50-74 00:00:00* Test Item Value Reference Range Interpretation Comme nts POCT Glu (age>30days) (test code = 3342) 204 mg/dL 70-110 A Lab Interpretation (test cod e = 49602-8) [facility] Aijsppg5871-11-74 22:56:00* Test Item Value Reference Range Interpretation Comme nts ABO & RH (test code = 20) A POSITIVE IAT (test code = 1185) Negative [facility] HEALTH - [id number] 17:24:19Ordered by an unspecified provider.[facility] GLUCOSE (AUTOMATED)2024-03-03 06:02:22* Test Item Value Reference Range Interpretation Comme nts POCT GLU (test code = 3092281679) 120 mg/dL 70-110 H Lab Interpretation (test cod e = 57403-6) Abnormal [facility] HEAD WO [id number] 05:47:04Exam: CT Head Without Contrast, 03/02/2024 11:45 [...] significant mastoidair cell opacification. Visualized orbits are unremarkable.[facility] [id number] 05:18:52* Test Item Value Reference Range Interpretation Comme [facility] TROPONIN I (test code = 4663874834) 0.002 ng/mL <=0.034 ROLANDO (test code = [...] of biotin. Lab Interpretation (test code = 10497-9) [facility] (NA, K, CL, CO2, GLUCOSE, BUN, CREATININE, CA)2024-03-03 05:06:47* Test Item Value Reference Range Interpretation Comme nts NA (test code = 5206892921) 137 mmol/L 135-145 K (test code = 2069084600) 3.8 mmol/L 3.5-5.0 CL (test code = 0168322716) 105 mmol/L 98-108 CO2 TOTAL (test code = 3605802669) 23 mmol/L 23-31 AGAP (test code = 0682124780) 9 2-16 BUN (test code = 7231732121) 18 mg/dL 7-23 GLUCOSE (test code = 2145901609) 135 mg/dL 70-110 H CREATININE (test code = 2160-0) 0.64 mg/dL 0.60-1.25 CALCIUM (test code = 8740830755) 9.3 mg/dL 8.6-10.6 eGFR (test code = 28006-6) 104.4 mL/min/1.73m2 CKD-EPI eGFR (2020). Assuming creatinine has been stable day-to-day for at least three months, the eGFR indicates Category G1 (>= 90 mL/min/1.73 m2) Lab Interpretation (test code = 54990-8) Abnormal [facility] WITH [id number] 04:57:27* Test Item Value Reference Range Interpretation [...] 34.6 g/dL 31.2-35.0 RDW-SD (test code = 13927-5) 40.2 fL 38.5-51.6 RDW-CV (test code = 788-0) 12.2 % 12.1-15.4 PLT (test code = 777-3) 333 150-328 H MPV (test code = 75286-2) 10.0 fL 9.8-13.0 NRBC/100 WBC (test code = 3130938813) 0.0 0.0-10.0 NRBC x10^3 (test code = 0696796704) See_Comment [Automated messa ge] The system which generated this result transmitted reference range: 10*3/?L. The reference range was not used to interpret this result as normal/abnormal. GRAN MAT (NEUT) % (test code = 770-8) 53.1 % IMM GRAN % (test code = 9569444918) 0.30 % LYMPH % (test code = 736-9) 33.6 % MONO % (test code = 5905-5) 9.8 % EOS % (test code = 713-8) 2.3 % BASO % (test code = 706-2) 0.9 % GRAN MAT x10^3(ANC) (test code = 8219054786) 3.97 10*3/uL 1.99-6.95 IMM GRAN x10^3 (test code = 8404969953) 0.00-0.06 LYMPH x10^3 (test code = 731-0) 2.51 10*3/uL 1.09-3.23 MONO x10^3 (test code = 742-7) 0.73 10*3/uL 0.36-1.02 EOS x10^3 (test code = 711-2) 0.17 10*3/uL 0.06-0.53 BASO x10^3 (test code = 704-7) 0.07 10*3/uL 0.01-0.09 Lab Interpretation (test code = 43396-1) [facility]:16:06* Test Item Value Reference Range Interpretation Comme nts POCT GLU (test code = 8914577434) 123 mg/dL 70-110 H Lab Interpretation (test cod e = 52359-7) [facility] [id number] 17:07:53 Ordered by an unspecified provider.[facility] Consult Notes Date/Time Note Provider Source 2025-02-06 14:07:45 Associated Order(s): CONSULT CARDIOLOGY Plz see office note [facility] 2024-07-09 16:39:02 Associated Order(s): CONSULT CARDIOLOGY Cardiology Consult Note PCP: Marcel Toth CHIEF COMPLAINT: new PFO and EF drop to 45-50 w wall motion abnormality HISTORY OF PRESENT ILLNESS Maximus Sheehan is a 68 year old male with PMH significant for CAD s/p PCI 2003 and CABG 2013, HTN HLD, carotid artery stenosis HFimpEF who presents for stroke rule out. Neuro following, concern for posterior circulation insufficiency possibly from stenosis. Cardio consulted due to PFO and regional wall motion abnormalities on echo. Pt currently asymptomatic negative trop. Pt notes on exertion he occasionally has chest pain. Follows w cardio as outpatient. Compliant with home meds. PCI to one vessel 2005 in [place] in [place]. PMH: has a past medical history of Brain bleed, Diabetes mellitus, Hypertension, and Kidney stone. PSH: has a past surgical history that includes craniotomy; coronary artery bypass graft; and carotid endarterectomy (Right, 03/22/2024). SocHx: reports that he has quit smoking. His smoking use included cigarettes. He has never used smokeless tobacco. He reports that he does not currently use drugs. He reports that he does not drink alcohol. FMH: family history includes Cancer in his mother; Coronary Heart Disease in his father and mother; Diabetes in his mother and sister; Heart in his father; Hypertension in his father and mother. ALLERGIES Allergies Allergen Reactions Jardiance [Empagliflozin] Unknown - See comments Morphine Unknown - See comments MEDICATIONS No current facility-administered medications on file prior to encounter. Current Outpatient Medications on File Prior to Encounter Medication Sig Dispense Refill metoprolol succinate XL 25 mg 24 hr tablet Take 1 tablet by mouth in the morning. 30 tablet 5 pioglitazone (ACTOS) 30 mg tablet Take 1 tablet by mouth in the morning. 90 tablet 0 glipiZIDE XL 5 mg 24 hr tablet Take 1 tablet by mouth daily with breakfast. (Patient not taking: Reported on 07/08/2024) 90 tablet 0 BD ULTRAFINE III MINI PEN 31 gauge x 3/16" Ndle USE DIRECTED 4 TIMES A DAY 300 Each 1 dulaglutide (TRULICITY) 1.5 mg/0.5 mL PnIj INJECT 1 PEN SUBCUTANEOUSLY WEEKLY 9 Pen 9 triamcinolone acetonide 0.1 % cream Apply to area(s) 2 (two) times daily. 454 g 7 Insulin Glargine (LANTUS SOLOSTAR U-100 INSULIN) 100 unit/mL (3 mL) injection Taking 28-30 U daily Indications: Patient recently has been taking 20 units qdaily rosuvastatin (CRESTOR) 5 mg tablet Take 1 tablet by mouth in the morning. 90 tablet 0 METFORMIN 500 mg tablet TAKE 1 TABLET BY MOUTH IN THE MORNING AND IN THE EVENING WITH MEALS 180 tablet 1 flash glucose sensor (FREESTYLE JOSE 2 SENSOR) Kit 1 Kit every 2 (two) weeks. 6 Kit 1 cholecalciferol, vitD3,/vit K2 (VITAMIN D3-VITAMIN K2 ORAL) Take by mouth. docosahexaenoic acid/epa (FISH OIL ORAL) Take by mouth. Magnesium Oxide 500 mg Cap Take by mouth. ubidecarenone (CO Q-10 ORAL) Take by mouth. Blood-Glucose Sensor (FREESTYLE JOSE 3 SENSOR) Yumiko Use as directed 5 Each 3 insulin aspart U-100 (NOVOLOG FLEXPEN U-100 INSULIN) 100 unit/mL (3 mL) injection inject 10 Units under the skin in the morning and 10 Units at noon and 10 Units in the evening. inject before meals. Inject 5 to 10 units three times a day with meals (Patient taking differently: inject 10 Units under the skin in the morning and 10 Units at noon and 10 Units in the evening. inject before meals. Inject 5 to 10 units three times a day with meals) 3 Each 1 REVIEW OF SYSTEMS See HPI VITALS Vitals: 07/09/24 0138 07/09/24 0505 07/09/24 0743 07/09/24 1120 BP: 128/80 112/68 109/74 123/80 Pulse: 91 80 81 92 Resp: 18 17 18 18 Temp: 36.7 ?C (98 ?F) 36.6 ?C (97.8 ?F) 36.4 ?C (97.5 ?F) 36.7 ?C (98.1 ?F) SpO2: 97% 95% 95% 95% Weight: 73.5 kg (162 lb) Height: PHYSICAL EXAMINATION General: alert, no acute distress Cardio: RRR, Resp: CTABL Ext: No LE edema, no calf tenderness ASSESSMENT/PLAN Maximus Sheehan is a 68 year old male who presents to the hospital with the following problems: HFimpEF (reported prior 30%, now 45-50%, ICM) PFO w R to L shunt HTN HLD Concern for posterior cerebral circulation insufficiency 2/2 stenosis Consulted by Neuro to evaluate new PFO w R to L shunt as well as regional wall motion abnormalities on echo. Pt admitted for stroke rule out. Tele negative for arrhythmia. Reports occasionally exertional chest pains and follows w cardio outpatient. Currently asymptomatic. -30 day monitor on discharge to screen for arrhythmia -Outpatient follow up w his Industrial Methods Consultant Dr Fink for ischemic workup -Can be referred to structural heart clinic on discharge for PFO -GDMT adjustment outpatient Cardiology will sign off. Discussed w Dr Sg Sevilla MD, NADIA Metal Dresser, PGY 4 Associated attestation - Valerie Garza MD - 07/10/2024 9:00 AM CDT I personally examined the patient on 07/09/[address] Sevilla's note. I actively participated in the decision-making process. Please see the fellow's note for additional details. Valerie Ospina MD Cardiology Faculty IM-CARDIOVASCULAR DISEASE STAFF [facility] 2024-07-08 16:51:00 Associated Order(s): CONSULT ADULT PHYSICAL THERAPY Patient agreeable to working with physical therapy. Patient met semi reclined in bed. Recommend nursing staff utilize RW to safely assist patient with mobility out of the bed or chair. PHYSICAL THERAPY EVALUATION Consult received, chart reviewed and evaluation complete this date. Patient is referred to PT for evaluation and treatment. Patient is a 68 year old male who presents to hospital for Numbness and tingling of right arm [R20.0, R20.2] . Discharge Recommendations: Therapy Needs and Potential: Patient would benefit from continued physical therapy services to address: decline in transfers decline in gait and/or balance decreased strength decreased endurance Patient demonstrates good potential to improve and meet therapy goals with further physical therapy services. Patient appears motivated to improve their functional mobility and return to their previous level of function. Patient exhibits limited activity tolerance. Challenges to Home Transition: increased risk of falls Equipment recommendations: Patient has or access to necessary equipment and rolling walker Current Functional Status and/or Treatment: AM-PAC 6 Clicks (Raw Score 0=Dependent, 24=Independent; Low function Raw Score 0= Dependent, 32=Independent): Raw Score - Basic Mobility : 18 T-Scale Score - Basic Mobility : 41.05 Bed Mobility: Sitting balance Good Supine to sit: Supervision Scooting to edge of bed: Supervision Repositioned patient to head of bed: Supervision Assessed independence with bed mobility Dizziness No Transfers: Sit to stand: Supervision using four wheeled walker with seat Stand to sit: Supervision using four wheeled walker with seat Stand pivot transfer: Supervision Static/dynamic standing balance: Fair Verbal cueing provided for correct hand placement and correct use of AD Educated on safety and fall prevention Dizziness No Ambulation: Assisted patient with ambulation as follows: 30 feet using four wheeled walker with seat and Minimal Assistance. Patient presenting with Step-through gait pattern. Patient exhibits min instability but no loss of balance. Limited gait distance secondary to fatigue Analyzed gait and activity tolerance Dizziness No Therapeutic exercise: patient educated in Fall prevention and Safety awareness., instructed patient in the following: ankle pumps, and patient/caregiver verbalizes understanding of instructions. After session, patient semi reclined in bed and bed alarm on . Call button provided, personal items within reach, RN notified of patient's status. PLAN OF CARE: While in the hospital, PT will follow patient at least 2 times per week,once or twice a day, per patient's tolerance and needs. See below for complete details. Admit Date: 07/07/2024 Hospital Diagnosis:Numbness and tingling of right arm [R20.0, R20.2] PT Diagnosis: Difficulty walking, Weakness, and Abnormality of gait and balance Weight Bearing Precaution: NA General Precautions: General, Fall, Bracing/Cast present or required:N/A PMH: Past Medical History: Diagnosis Date Brain bleed Diabetes mellitus Hypertension Kidney stone PSH: Past Surgical History: Procedure Laterality Date CAROTID ENDARTERECTOMY Right 03/22/2024 Surgeon: Ron Hoover MD; Location: [facility] CORONARY ARTERY BYPASS GRAFT CRANIOTOMY Prior Living Situation: lives alone, resides at a [facility] DME: Four wheeled walker with seat Prior level of Mobility: community ambulation, house hold ambulation Suspected ischemic or hemorraghic stroke:Yes, Pre-Stroke Modified Cleveland Score: 2 - Slight disability; unable to perform all previous activities but able to look after own affairs without assistance Subjective: Patient reports independent with all functional mobility with use of rollator, states he is very careful to avoid falls. Patient/Family Goals: return to previous level of function Patient/Family verbalizes understanding of condition: Yes PAIN: denies pain before and after session COMMUNICATION Primary Language: [place] Able to Verbalize needs: Yes Vision:good; no issues reported Hearing:WFL ORIENTATION/COGNITION: Oriented to: person, place, date/time, and situation Awake: Yes Alert: Yes Dizzy: No Follows Commands: Yes 1-Step Yes Multi-Step Yes Inconsistent: No NEUROLOGICAL Light Touch: within functional limits bilateral LE, Heel to silver: WNL Tone: WNL BALANCE: Sitting: Static: Good Dynamic: Fair+ Standing: Static: Fair Dynamic: Fair- RANGE OF MOTION: within functional limits bilateral LE, STRENGTH: 4-/5 (G-), bilateral LE gross strength ENDURANCE: Fair, Room air SKIN INTEGRITY: defer to nursing, PROBLEM LIST: Decline in gait, Decline in transfers, Decreased strength, Decreased endurance, and Decreased balance ASSESSMENT: Patient is a 68 year old male seen secondary to the above listed diagnosis. Patient would benefit from continued PT to address the above listed deficits to maximize independence and safety with functional mobility. Rehabilitation Potential: good Goals: The following goals are to maximize independence and safety with functional mobility to eventually return to prior living situation and prior functional status. Upon discharge, patient and/or family will demonstrate the followin. Supine-sit: Independent 2. Stand pivot transfer: Independent 3. Independent with ambulation, Feet: 150 using least assistive device. 4. Independent with HEP Treatment Plan: Gait training, Gait training on stairs, Therapeutic exercise, Transfer training, Balance training, Bed mobility training, Equipment needs assessment, Safety education, patient/caregiver education, Neuromuscular Re-Education, and Functional Motor Training PATIENT EDUCATION: Patient provided with preferred teaching of verbal information and demonstration on role of PT, plan of care, treatment benefits, functional mobility, fall prevention and safety. Shows readiness to learn. Verbal instruction and Demonstration teaching provided. Individual is able to read and verbalizes understanding of teaching provided. 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 2024-07-08 09:02:35 Associated Order(s): CONSULT/REFERRAL NEUROLOGY; CONSULT NEUROLOGY [facility] NEUROLOGY CONSULT NOTE Reason for Consult: stroke workup HISTORY OF PRESENT ILLNESS Maximus Sheehan is a 68 year old male PMH subdural hematoma s/p craniotomy in 2021 that was complicated by stroke, history of right carotid stenosis s/p right carotid endarterectomy 02/2024, HTN, HLD, multiple TIA, T2DM, presents to hospital yesterday sent from neuro clinic. He was initially sent to clinic for concerns for new vertebral artery stenosis with worsened dizziness as well as new right upper extremity numbness. Sent to hospital for further stroke workup given new and worsened symptoms with complicated clinical history. Patient was previously taking ASA at home. PAST MEDICAL HISTORY Past Medical History: Diagnosis Date Brain bleed Diabetes mellitus Hypertension Kidney stone PAST SURGICAL HISTORY Past Surgical History: Procedure Laterality Date CAROTID ENDARTERECTOMY Right 03/22/2024 Surgeon: Ron Hoover MD; Location: [facility] CORONARY ARTERY BYPASS GRAFT CRANIOTOMY FAMILY HISTORY Family History Problem Relation Age of Onset Diabetes Mother Cancer Mother Coronary Heart Disease Mother Hypertension Mother Coronary Heart Disease Father Heart Father Hypertension Father Diabetes Sister SOCIAL HISTORY Social History Socioeconomic History Marital status: Tobacco Use Smoking status: Former Types: Cigarettes Smokeless tobacco: Never Substance and Sexual Activity Alcohol use: Never Drug use: Not Currently Social Determinants of Health Financial Resource Strain: Low Risk (05/26/2024) Overall Financial Resource Strain (CARDIA) Difficulty of Paying Living Expenses: Not hard at all Food Insecurity: No Food Insecurity (05/26/2024) Hunger Vital Sign Worried About Running Out of Food in the Last Year: Never true Ran Out of Food in the Last Year: Never true Transportation Needs: Unmet Transportation Needs (05/26/2024) PRAPARE - Transportation Lack of Transportation (Medical): Yes Lack of Transportation (Non-Medical): No Physical Activity: Insufficiently Active (05/26/2024) Exercise Vital Sign Days of Exercise per Week: 3 days Minutes of Exercise per Session: 30 min Social Connections: Unknown (03/23/2024) Social Connection and Isolation Panel [NHANES] Frequency of Communication with Friends and Family: More than three times a week Marital Status: Housing Stability: High Risk (05/26/2024) Housing Stability Vital Sign Unable to Pay for Housing in the Last Year: No Number of Places Lived in the Last Year: 3 Unstable Housing in the Last Year: No HOME MEDICATIONS Medications Prior to Admission Medication Sig Dispense Refill Last Dose metoprolol succinate XL 25 mg 24 hr tablet Take 1 tablet by mouth in the morning. 30 tablet 5 pioglitazone (ACTOS) 30 mg tablet Take 1 tablet by mouth in the morning. 90 tablet 0 glipiZIDE XL 5 mg 24 hr tablet Take 1 tablet by mouth daily with breakfast. 90 tablet 0 Not Taking BD ULTRAFINE III MINI PEN 31 gauge x 3/16" Ndle USE DIRECTED 4 TIMES A DAY 300 Each 1 Taking dulaglutide (TRULICITY) 1.5 mg/0.5 mL PnIj INJECT 1 PEN SUBCUTANEOUSLY WEEKLY 9 Pen 9 Taking triamcinolone acetonide 0.1 % cream Apply to area(s) 2 (two) times daily. 454 g 7 Taking Insulin Glargine (LANTUS SOLOSTAR U-100 INSULIN) 100 unit/mL (3 mL) injection Taking 28-30 U daily Taking rosuvastatin (CRESTOR) 5 mg tablet Take 1 tablet by mouth in the morning. 90 tablet 0 Taking METFORMIN 500 mg tablet TAKE 1 TABLET BY MOUTH IN THE MORNING AND IN THE EVENING WITH MEALS 180 tablet 1 Taking flash glucose sensor (FREESTYLE JOSE 2 SENSOR) Kit 1 Kit every 2 (two) weeks. 6 Kit 1 Taking cholecalciferol, vitD3,/vit K2 (VITAMIN D3-VITAMIN K2 ORAL) Take by mouth. Taking docosahexaenoic acid/epa (FISH OIL ORAL) Take by mouth. Taking Magnesium Oxide 500 mg Cap Take by mouth. Taking ubidecarenone (CO Q-10 ORAL) Take by mouth. Taking Blood-Glucose Sensor (FREESTYLE JOSE 3 SENSOR) Yumiko Use as directed 5 Each 3 Taking insulin aspart U-100 (NOVOLOG FLEXPEN U-100 INSULIN) 100 unit/mL (3 mL) injection inject 10 Units under the skin in the morning and 10 Units at noon and 10 Units in the evening. inject before meals. Inject 5 to 10 units three times a day with meals 3 Each 1 Taking HOSPITAL MEDICATIONS Scheduled meds: IV meds: PRN meds: insulin lispro (human), , TID MEALS+HS aspirin, 81 mg, DAILY enoxaparin (LOVENOX) adult SC Syringe, 40 mg, DAILY glipiZIDE XL, 5 mg, QAM WITH BREAKFAST insulin glargine, 25 Units, DAILY metFORMIN, 500 mg, BID metoprolol succinate XL, 25 mg, DAILY pioglitazone, 30 mg, DAILY rosuvastatin, 5 mg, DAILY dextrose 50 % in water (D50W), 25 mL, PRN glucagon, 1 mg, PRN labetaloL, 10 mg, [id number] ALLERGY Allergies Allergen Reactions Jardiance [Empagliflozin] Unknown - See comments Morphine Unknown - See comments SUBJECTIVE Patient endorses ongoing right sided numbness and dizziness, ongoing for several months but worse in the last several weeks. No changes in today's symptoms from yesterday. PHYSICAL EXAM Vitals: 07/07/24 2050 07/08/24 0033 07/08/24 0519 07/08/24 0818 BP: 115/61 108/69 (!) 145/85 BP Location: Patient Position: Pulse: 79 80 80 Resp: 18 18 18 Temp: 36.7 ?C (98 ?F) 36.8 ?C (98.2 ?F) 36.8 ?C (98.2 ?F) SpO2: 96% 96% 96% Weight: 72.1 kg (159 lb) Height: 1.829 m (6') Neuro Exam: General appearance: well appearing, resting comfortable in bed Mental status: alert, oriented X 4, normal speech and language, no aphasia or dysarthria noted CN: EOMI, PERRL, CN II-XII intact, right facial asymmetry when smiling (has been present since his February 2024 endarterectomy) Reflexes: not tested Motor: no motor deficits, patient equal throughout with some mild generalized weakness Patient subjectively feels weaker on the right (ongoing since 2021 stroke) but no noticeable deficit seen Sens: decreased sensation to RUE/RLE Coord: no cerebellar deficits, no ataxia noted Neglect: no neglect noted Gait: deferred LABS, RADIOLOGY, ELECTROPHYSIOLOGY CT HEAD WO CONTRAST Result Date: 07/07/2024 Postsurgical changes of left frontoparietal craniotomy. No acute intracranial abnormality. Preliminary Report Dictated by Resident: Keena Fabian I, Makenna Mcdaniel MD., have reviewed this study and agree with the above report. MRI brain: Pending CTA head and neck: Atherosclerotic calcifications in the bilateral carotid siphons resulting in moderate stenosis of the paraclinoid ICAs. Multifocal moderate stenosis of the left vertebral artery. Relevant labs: LDL 57, A1c 7.2 IMPRESSION AND RECOMMENDATIONS IMPRESSION: Concern for possible posterior circulation stenosis with worsened persistent dizziness and RUE numbness of unknown onset time. Sent to hospital to rule out new stroke and vertebrobasilar insufficiency -He endorses having chronic dizziness since his stroke in 2021 but states this had worsened in the last 2-3 weeks. -He was seen about 1 month ago for right sided numbness but MRI was never done. Endorses ongoing intermittent numbness. Endorsed RUE numbness yesterday in clinic but states he has never noticed this before and is not sure when it started. -CTA showing moderate left vertebral artery stenosis with some bilateral carotid artery moderate stenosis -Will obtain MRI RECOMMENDATIONS: -MRI brain -ARU pending -ASA 81 mg qd -Crestor 5 mg qhs (patient endorses getting muscle pain at higher doses) -BP goal: normotension -DVT ppx: Lovenox -Rest of stroke workup pending MRI results -Discussed case with Dr Singh neuro endovascular. Patient to followup with him outpatient if MRI is negative for new stroke. Will consider transferring patient for DSA if MRI is positive for a new stroke related to posterior circulation stenosis. Discussed with Dr. Garcia Neurology attending. Associated attestation - Jasmyn Garcia MD - 07/10/2024 10:45 AM CDT I personally examined patient on 07/08/24 and I actively participated in the decision-making process. 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 Cardiology called and requested patient be directly admitted for chest pain workup including EKG, troponin cycle, cardiac echo and possible nuclear stress test. Patient was admitted onto the floor orders placed. Called by nursing to come see the patient as he wished to leave AMA. On exam patient is irate refusing physical exam. Attempted to discuss care plan with patient including steps above but refusing any further care wishes to leave AMA at this time. ROS: Unable to obtain Review of Hx/Meds: PMH: Past Medical History: Diagnosis Date Brain bleed CAD (coronary artery disease) CVA (cerebral vascular accident) Diabetes mellitus Hyperlipidemia Hypertension Kidney stone Peripheral vascular disease, unspecified PSH: has a past surgical history that includes craniotomy; coronary artery bypass graft; carotid endarterectomy (Right, 03/22/2024); laser enucleation of prostate (N/A, 08/25/2024); and colonoscopy (N/A, 12/28/2024). Family Hx: Noncontributory unless mentioned above Social History Tobacco Use Smoking status: Former Types: Cigarettes Passive exposure: Never Smokeless tobacco: Never Substance Use Topics Alcohol use: Never Drug use: Not Currently Current Scheduled Medications Current IV Current Facility-Administered Medications: acetaminophen (TYLENOL) tablet 650 mg, 650 mg, Oral, Q6HPRN, Adela Ward DO [START ON 02/07/2025] aspirin chewable tablet 81 mg, 81 mg, Oral, DAILY, Adela Ward DO aspirin tablet 325 mg, 325 mg, Oral, ONCE, Adela Ward DO dextrose 50 % in water (D50W) injection 25 mL, 25 mL, Slow IV Push, PRN, Adela Ward DO enoxaparin (LOVENOX) injection 40 mg, 40 mg, Subcutaneous, DAILY, Adela Ward DO glucagon HCL injection 1 mg, 1 mg, Intramuscular, PRN, Adela Ward DO nitroglycerin (NITROSTAT) sublingual tablet 0.4 mg, 0.4 mg, Sublingual, Q5MIN PRN, Adela Ward DO Sliding Scale Insulin - Lispro (HumaLOG), , Subcutaneous, TID MEALS+HS, Adela Ward, , 2 Units at 02/06/25 1213 Objective: Vitals: Vitals: 02/06/25 1200 02/06/25 1400 02/06/25 1549 02/06/25 1600 BP: (!) 149/81 (!) 161/69 (!) 145/73 BP Location: Left arm Patient Position: Sitting Pulse: 71 Resp: 10 12 16 Temp: 36.4 ?C (97.6 ?F) TempSrc: Tympanic SpO2: 97% 99% Weight: Height: I/O's: Intake/Output Summary (Last 24 hours) at 02/06/2025 1800 Last data filed at 02/06/2025 1549 Gross per 24 hour Intake -- Output 0 ml Net 0 ml Physical Exam: Patient refusing full physical exam Labs: BMP:BMP NA (mmol/L) Date Value 02/06/2025 137 01/10/2025 137 11/16/2024 140 11/07/2024 140 08/26/2024 133 (L) K (mmol/L) Date Value 02/06/2025 4.0 01/10/2025 4.4 11/16/2024 3.3 (L) 11/07/2024 4.2 08/26/2024 3.6 CALCIUM (mg/dL) Date Value 02/06/2025 9.1 01/10/2025 9.5 11/16/2024 9.5 11/07/2024 9.5 08/26/2024 8.1 (L) CL (mmol/L) Date Value 02/06/2025 102 01/10/2025 104 11/16/2024 102 11/07/2024 104 08/26/2024 102 BUN (mg/dL) Date Value 02/06/2025 14 01/10/2025 15 11/16/2024 20 11/07/2024 19 08/26/2024 10 CREATININE (mg/dL) Date Value 02/06/2025 0.58 (L) 01/10/2025 0.59 (L) 11/16/2024 0.58 (L) 11/07/2024 0.61 08/26/2024 0.57 (L) GLUCOSE (mg/dL) Date Value 02/06/2025 195 (H) 01/10/2025 145 (H) 11/16/2024 64 (L) 11/07/2024 106 08/26/2024 185 (H) CO2 TOTAL (mmol/L) Date Value 02/06/2025 29 01/10/2025 25 11/16/2024 26 11/07/2024 27 08/26/2024 22 (L) CBC:CBC WBC (10*3/?L) Date Value 02/06/2025 8.54 RBC (10*6/?L) Date Value 02/06/2025 4.90 PLT (10*3/?L) Date Value 02/06/2025 250 HGB (g/dL) Date Value 02/06/2025 14.8 HCT (%) Date Value 02/06/2025 43.8 BMP:Hepatic Function Panel ALBUMIN (g/dL) Date Value 01/10/2025 4.2 T PROTEIN (g/dL) Date Value 01/10/2025 7.1 TOTAL BILI (mg/dL) Date Value 01/10/2025 0.8 ALTv (U/L) Date Value 01/10/2025 20 AST(SGOT) (U/L) Date Value 01/10/2025 33 ALK PHOS (U/L) Date Value 01/10/2025 69 Troponin: Recent Labs 02/06/25 1523 TROPNI 0.001 I have reviewed all relevant labs Imaging: Transthoracic echo (TTE) Result Date: 02/06/2025 Left Ventricle: Left ventricle size is normal. Normal wall thickness. Regional wall motion abnormalities present. Hypokinetic basal to mid anterolateral wall. Mildly reduced systolic function with a visually estimated EF of 45 - 50%. There is impaired relaxation. Normal left ventricular filling pressure. Right Ventricle: Right ventricle is mildly dilated. Mildly reduced systolic function. Mitral Valve: No stenosis. Tricuspid Valve: Trace transvalvular regurgitation. Insufficient tricuspid regurgitation jet to estimate RVSP . RA pressure is 5-[address] Abdomen pelvis w wo contrast Result Date: 01/10/2025 EXAM: CT ABDOMEN PELVIS W WO CONTRAST ORDERING PROVIDER: ALEX BLANCHARD HISTORY: 69 years-old Male; Provided Ordering Indication: Hematuria, unknown cause eval for mass . TECHNIQUE: Contiguous axial imaging from the level of the lung bases through the proximal thighs was performed with delayed phase intravenous contrast. Coronal and sagittal reconstructions were obtained. COMPARISON: CT abdomen pelvis hematuria protocol 08/09/2024 FINDINGS: LOWER THORAX: The lung bases are clear.Midline sternotomy wires partially visualized. LIVER: The liver is normal in size and contour. No focal hepatic lesion is seen. GALLBLADDER AND BILIARY TREE: No radiopaque gallstones are seen. No intra or extrahepatic biliary ductal dilation is visualized. SPLEEN: The spleen appears unremarkable. PANCREAS: No ductal dilation or masses are visualized. ADRENAL GLANDS: No adrenal masses are seen. KIDNEYS: 4 cm hypodensity on the superior pole of the right knee likely represents a simple cyst. 2.2 and 2.1 cm intermediate density lesions on the interpolar zone of the left kidney, and a 1.3 cm density on the interpolar zone of the right kidney can be further evaluated on a nonemergent basis with MRI renal mass protocol, however appear grossly stable from 08/09/2024. Mild bilateral pelviectasis with urothelial prominence. No stones or suspicious masses are visualized. PELVIS/BLADDER: The bladder is adequately distended with bladder wall thickening. There is dilation of the proximal urethra. There are scattered prostatic calcifications.. GI TRACT: Moderate solid colonic stool burden compatible with constipation. No dilation or bowel wall thickening is seen. The appendix appears unremarkable. PERITONEUM AND RETROPERITONEUM: No intra-abdominal free air or fluid collection is visualized. LYMPH NODES: No enlarged intra-abdominal or pelvic lymph nodes are found. VESSELS: Moderate atherosclerotic calcifications noted in the abdominal aorta and its branches. The vessels appear unremarkable. BONES AND SOFT TISSUES: No suspicious lytic or sclerotic bony lesions are present. 1. Multiple bilateral hypo and intermediate dense renal masses which appear grossly stable from 08/09/2024. If clinical concern continues recommend urologic consultation. 2. Mild bilateral pelviectasis with urothelial prominence. Mild bladder wall thickening with proximal urethral dilation. Prostate calcifications. 3. Moderate solid colonic stool burden compatible with obstipation. Preliminary Report Dictated by Resident: Esvin Hodge MD., have reviewed this study and agree with the above report. Assessment and plan: Principal Problem: Chest pain Atypical chest pain: -Troponin cycled - Follow-up cardiac echo -Aspirin started - Continue telemetry - Cardiology consult Diabetes: - Start insulin/scale As noted above patient left AMA before full plan and assessment could not be completed DVT prophylaxis: Lovenox [place] [employer] was verified Disposition: Patient leaving AMA [facility] [employer] 2024-12-28 08:17:59 COLORECTAL SURGERY HISTORY AND PHYSICAL NOTE Cc: Screening colonoscopy SUBJECTIVE: Maximus Sheehan is a 69 year old male with has a past medical history of Brain bleed, CAD (coronary artery disease), CVA (cerebral vascular accident), Diabetes mellitus, Hyperlipidemia, Hypertension, Kidney stone, and Peripheral vascular disease, unspecified. who presents for screening colonoscopy. Has h/o constipation, improved with conservative management. Colonoscopy: never Personal or Family Hx CRC/polyps: no PMH: Diabetes: yes Cardiac functional status: reported to have mod cardiac risk, ok to hold aspirin if necessary per Dr. Fink Blood thinners: yes, aspirin Smoking status: Tobacco Use: Medium Risk (12/20/2024) Patient History Smoking Tobacco Use: Former Smokeless Tobacco Use: Never Passive Exposure: Not on file Allergies Maximus is allergic to jardiance [empagliflozin] and morphine. Medications Current Outpatient Medications Medication Instructions aspirin (ASPIR-81 ORAL) 81 mg, Oral, DAILY cholecalciferol (vitamin D3) 1,000 Units, Oral coenzyme [id number] 100-5 mg-unit capsule Oral insulin glargine 22 Units, Subcutaneous, QAM insulin lispro (HUMALOG DELMY KWIKPEN U-100 SC) 100 Units, Subcutaneous, DAILY insulin lispro (human) (HUMALOG U-100 INSULIN) 5 Units, Subcutaneous, TIDPRN Magnesium Oxide 420 mg Tab Oral metFORMIN (GLUCOPHAGE) 500 mg, Oral, BID MEALS metoprolol succinate XL (TOPROL XL) 25 mg, Oral, QAM Miscellaneous Medical Supply Kit Shower head w a hose
shower stool
3 wheeled electric scooter

Use as directed rosuvastatin (EZALLOR SPRINKLE) 5 mg, Oral, QPM triamcinolone (TRIDERM) 0.1 %, Topical, BID Trulicity 1.5 mg, Subcutaneous, QWEEKLY Histories Past Surgical History: Procedure Laterality Date CAROTID ENDARTERECTOMY Right 03/22/2024 Surgeon: Ron Hoover MD; Location: [facility] OR LOCATION CORONARY ARTERY BYPASS GRAFT CRANIOTOMY LASER ENUCLEATION OF PROSTATE N/A 08/25/2024 Surgeon: Lynn Doll MD; Location: [facility] OR LOCATION Family History Problem Relation Age of Onset Diabetes Mother Cancer Mother Coronary Heart Disease Mother Hypertension Mother Coronary Heart Disease Father Heart Father Hypertension Father Diabetes Sister Vital Signs Wt 72.1 kg (159 lb) | BMI 21.56 kg/m? Assessment/Plan Maximus Sheehan is a 69 year old male who presented for screening colonoscopy in patient of avg risk CRC All risks benefits and alternatives discussed with patient, including the risk of bleeding, infection, damage to surrounding tissues and need for more invasive measures to address these complications, and he is amenable to proceed with procedure. Mindy Andino MD 12/28/2024 8:22 AM Colon and Rectal Surgery [facility] 2024-08-25 07:38:40 UROLOGY HISTORY AND PHYSICAL NOTE Date of Service: 08/25/2024 Chief Complain : for HoLEP History of Present Illness: Maximus Sheehan is a 68 year old male with PMH as below , who presents for HoLEP, hx of chronic urine retention on CIC, hematuria requiring aden, bacterial colonization on oral abx, admitted yesterday and received IV abx . Home Medications: Medications Prior to Admission Medication Sig Dispense Refill Last Dose rosuvastatin (CRESTOR) 5 mg tablet Take 1 tablet by mouth in the morning. 90 tablet 0 Taking ciprofloxacin HCl 500 mg tablet Take 1 tablet by mouth every 12 (twelve) hours for 5 days. 10 tablet 0 Not Taking aspirin 81 mg chewable tablet Take 1 tablet by mouth in the morning. 30 tablet 0 Taking insulin aspart U-100 (NOVOLOG FLEXPEN U-100 INSULIN) 100 unit/mL (3 mL) injection inject 10 Units under the skin in the morning and 10 Units at noon and 10 Units in the evening. inject before meals. Inject 5 to 10 units three times a day with meals Taking metoprolol succinate XL 25 mg 24 hr tablet Take 1 tablet by mouth in the morning. 30 tablet 5 Taking BD ULTRAFINE III MINI PEN 31 gauge x 3/16" Ndle USE DIRECTED 4 TIMES A DAY 300 Each 1 Taking dulaglutide (TRULICITY) 1.5 mg/0.5 mL PnIj INJECT 1 PEN SUBCUTANEOUSLY WEEKLY (Patient taking differently: ) 9 Pen 9 Taking triamcinolone acetonide 0.1 % cream Apply to area(s) 2 (two) times daily. 454 g 7 Taking Insulin Glargine (LANTUS SOLOSTAR U-100 INSULIN) 100 unit/mL (3 mL) injection inject 24 Units under the skin every morning. Taking 28-30 U daily Indications: Patient recently has been taking 20 units qdaily Taking METFORMIN 500 mg tablet TAKE 1 TABLET BY MOUTH IN THE MORNING AND IN THE EVENING WITH MEALS 180 tablet 1 Taking flash glucose sensor (FREESTYLE JOSE 2 SENSOR) Kit 1 Kit every 2 (two) weeks. 6 Kit 1 Taking cholecalciferol, vitD3,/vit K2 (VITAMIN D3-VITAMIN K2 ORAL) Take by mouth. Taking docosahexaenoic acid/epa (FISH OIL ORAL) Take by mouth. Taking Magnesium Oxide 500 mg Cap Take by mouth. Taking ubidecarenone (CO Q-10 ORAL) Take by mouth. Taking Blood-Glucose Sensor (FREESTYLE JOSE 3 SENSOR) Yumiko Use as directed 5 Each 3 Taking Histories: Past Medical History: Diagnosis Date Brain bleed CAD (coronary artery disease) CVA (cerebral vascular accident) Diabetes mellitus Hyperlipidemia Hypertension Kidney stone Peripheral vascular disease, unspecified Past Surgical History: Procedure Laterality Date CAROTID ENDARTERECTOMY Right 03/22/2024 Surgeon: Ron Hoover MD; Location: [facility] [place] CORONARY ARTERY BYPASS GRAFT CRANIOTOMY Family History Problem Relation Age of Onset Diabetes Mother Cancer Mother Coronary Heart Disease Mother Hypertension Mother Coronary Heart Disease Father Heart Father Hypertension Father Diabetes Sister Social History Socioeconomic History Marital status: Spouse name: Not on file Number of children: Not on file Years of education: Not on file Highest education level: Not on file Occupational History Not on file Tobacco Use Smoking status: Former Types: Cigarettes Smokeless tobacco: Never Substance and Sexual Activity Alcohol use: Never Drug use: Not Currently Sexual activity: Not on file Other Topics Concern Not on file Social History Narrative Not on file Social Determinants of Health Financial Resource Strain: Patient Declined (07/08/2024) Overall Financial Resource Strain (CARDIA) Difficulty of Paying Living Expenses: Patient declined Food Insecurity: Patient Declined (07/08/2024) Hunger Vital Sign Worried About Running Out of Food in the Last Year: Patient declined Ran Out of Food in the Last Year: Patient declined Transportation Needs: Unmet Transportation Needs (05/26/2024) PRAPARE - Transportation Lack of Transportation (Medical): Yes Lack of Transportation (Non-Medical): No Physical Activity: Inactive (07/08/2024) Exercise Vital Sign Days of Exercise per Week: 0 days Minutes of Exercise per Session: 0 min Stress: Not on file Social Connections: Unknown (07/08/2024) Social Connection and Isolation Panel [NHANES] Frequency of Communication with Friends and Family: More than three times a week Frequency of Social Gatherings with Friends and Family: Not on file Attends Quaker Services: Not on file Active Member of Clubs or Organizations: Not on file Attends Club or Organization Meetings: Not on file Marital Status: Patient declined Housing Stability: Low Risk (07/08/2024) Housing Stability Vital Sign Unable to Pay for Housing in the Last Year: No Number of Places Lived in the Last Year: 1 Unstable Housing in the Last Year: No Recent Concern: Housing Stability - High Risk (05/26/2024) Housing Stability Vital Sign Unable to Pay for Housing in the Last Year: No Number of Places Lived in the Last Year: 3 Unstable Housing in the Last Year: No Allergies: Allergies Allergen Reactions Jardiance [Empagliflozin] Unknown - See comments Morphine Unknown - See comments Review of Systems: Constitutional: negative Eyes: negative Ears, nose, mouth, throat: negative Cardiovascular: negative Respiratory: negative Gastrointestinal: negative Genitourinary: (+) per HPI Musculoskeletal: negative Integumentary: negative Neurological: negative Psychiatric: negative Endocrine: negative Hematologic/Lymphatic: negative Allergic/Immunologic: negative, allergies listed above Physical Examination: Blood pressure 130/68, pulse 94, temperature 36.8 ?C (98.2 ?F), temperature source Temporal Artery, resp. rate 17, weight 70 kg (154 lb 4.8 oz), SpO2 96%. Constitutional:no acute distress Eyes: normal external eye, conjunctiva and sclera normal Ears, nose, mouth, throat: normocephalic, moist mucous membranes Cardiovascular: regular rate and rhythm Respiratory: respirations unlabored on room air Musculoskeletal: no clubbing, cyanosis or edema Skin: no rashes Neurologic: no focal deficits Psychiatric: appropriate mood and affect Hematologic: no bruising Laboratory: Hemogram Recent Labs 05/31/24 1139 07/07/24 1714 08/23/24 1150 08/24/24214008/25/24 0426 WBC 5.55 7.55 14.06* 11.24* 9.30 HGB 15.5 15.1 15.3 13.6 13.7 HCT 45.6 43.7 46.0 39.1 39.7 PLT 305 267 301 296 310 Chemistry Recent Labs 05/31/24 1139 07/07/24 1714 08/23/24 1150 08/24/24214008/25/24 0426 NA 139 140 134* 136 134* K 4.4 3.9 4.5 4.4 3.7 CL 102 108 100 104 103 TCO2 26 23 23 28 25 AGAP 11 9 11 4 6 BUN 12 11 17 16 12 GLU 137* 111* 253* 200* 179* CREAT 0.55* 0.48* 0.61 0.60 0.55* CA 9.6 9.5 9.4 9.0 8.8 EGFR 109.3 113.9 105.9 106.5 109.3 Urinalysis Recent Labs 07/22/24 0953 08/15/24 1341 08/23/24 1150 USPGRAV 1.006 1.018 1.026 UPH 8.0 8.0 5.0 UPROTEIN Negative 500 mg/dL* 500 mg/dL* UGLUCOSE Normal Normal 50 mg/dL* UKETONES Negative Negative 80 mg/dL* UBILI Negative Negative Negative UNITRITE Negative Negative Negative ULEUKEST Negative 250/uL* 250/uL* URBC <1 >182* >182* UWBC 1 >182* >182* UBACTERIA Negative Negative Moderate* Urine Culture Recent Labs 07/22/24 0953 08/11/24 1524 08/18/24 1524 08/23/24 1315 CUR < 10,000 CFU/mL aerobic organisms - suggests endogenous microbial contamination >100,000 CFU/mL Staphylococcus epidermidis* 80,000 CFU/mL Pseudomonas aeruginosa* >100,000 CFU/mL Pseudomonas aeruginosa* Liver Function Tests Recent Labs 05/31/24 1139 08/23/24 1150 AST 22 16 ALT 22 15 ALKPHOS 72 102 BILIT 1.0 1.0 Coagulation Profile There are no current results on file for these tests and/or test for the past 3 mos. Arterial Blood Gas There are no current results on file for these tests and/or test for the past 3 mos. Radiology: I independently visualized the images noted below. CT ABDOMEN PELVIS W WO CONTRAST Result Date: 08/10/2024 CT Abdomen and Pelvis without and with intravenous contrast. CLINICAL HISTORY: Gross hematuria. DOSE: Up-to-date CT equipment and radiation dose reduction techniques were employed. CTDIvol: 7.73+7.70 mGy. DLP: 801.30 MGy-cm. TECHNIQUE : Contiguous axial imaging from the level of the lung bases through the pubic symphysis were performed initially without contrast and subsequently after the uncomplicated administration of nonionic contrast material. Coronal and sagittal reconstructions were obtained. Auto mA and/or iterative reconstruction were used to reduce radiation dose. FINDINGS: Comparison has been made with 07/01/[address] studies. Lower lungs: Lower most sternotomy suture noted, probably utilize for CABG surgery. Visualized lungs are clear. No pleural effusion or pericardial effusion. Probable small sliding-type hiatal hernia. Liver, Gallbladder and Spleen: Normal. 15 mm nodule adjacent to the tail of the pancreas is likely an accessory splenule, unchanged. Peritoneum: No free air or free fluid. No lymphadenopathy. Pancreas and Adrenals: Unremarkable pancreas and adrenal glands. Kidneys and Ureters: 5 x 2 mm calcification noted in the midportion of the right kidney adjacent to the posterior wall of 3.9 cm cystic lesion. Left kidney contains 3 mm and 1 mm calcifications in the anterior cortex and faint 1 mm calcification in the lower pole adjacent to the collecting system. No hydroureter or hydronephrosis. Both kidneys contain several hypodense lesions ranging from the largest of 3.9 cm and the right kidney to less than 1 cm size also in the right kidney. Largest hypodense lesion in the left kidney is 2.2 cm. Vessels: Moderate atherosclerosis. No AAA. Retroperitoneum: No abnormal fluid or lymphadenopathy. Bowel: Constipation with large fecal load throughout large bowel. Normal appendix and small bowel gas pattern. Bladder and Reproductive Organs: Enlarged prostate gland. Irregular enhancement of the lumen of the urinary bladder is due to mixing of nonopacified with jets of opacified urine. Mild diffuse thickening of the bladder wall is noted, likely secondary to enlarged prostate gland. Bones: No acute findings. No aggressive bone lesions. Soft tissues: Focal areas of subcutaneous fat congestion in both lower anterior abdominal wall fat, likely sites of subcutaneous injection sites of medications. CONCLUSION: 1. Small calcifications in both kidneys could be nonobstructing stones, largest calcification in the right kidney of 5 x 2 mm size is unchanged when compared with previous study of 07/01/2024. 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 3. Enlarged prostate and thickened bladder sims. 4. Constipation with large fecal load. Procedure: Assessment and Plan: 68 year old male with . 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 No Fhx of prostate cancer PSA (ng/mL) Date Value 07/07/2024 1.46 Latest Reference Range & Units 12/02/23 11:49 02/22/24 13:22 03/02/24 23:41 03/22/24 11:30 03/23/24 02:57 05/31/24 11:39 07/07/24 17:14 CREATININE 0.60 - 1.25 mg/dL 0.57 (L) 0.52 (L) 0.64 0.56 (L) 0.54 (L) 0.55 (L) 0.48 (L) eGFR mL/min/1.73m2 108.8 111.2 104.4 108.7 109.9 109.3 113.9 I counseled patient about options for treating BPH and natural history if not treated ( bladder atony, voiding dysfunction, renal failure, stones recurrent infection, and need for chcf catheter) CIC, surgical options: TURP, ThuLVP to alleviate the obstruction and attempt improve LUTS and avoid risk of complications from exterminator termite HERRON. Possible adverse events recognized with TURP and ThuLVP include and not limited to ( pain, bleeding, infection, injury to surrounding structures, erectile dysfunction, urinary incontinence, retrograde ejaculation, stricture formation, inability to void/retention, prostatic regrowth, need for additional procedures). Robotic Laparoscopic Assisted Simple Prostatectomy for large glands ThuLVP has comparable outcomes when compared with the gold standard TURP, in addition to less risk of bleeding, catheterization time and need for hospitalization. Patient opted for HoLEP : most likely to address chronic urine retention risk of complications mainly damage to bladder ( perforation, , need to reconstruct). pain, bleeding, infection, injury to surrounding structures, need for prolonged catheter , failure to remove all prostate, need for additional procedures Patient may experience urgency, transient SEBASTIAN/ UUI or DAVE up to 12 weeks post requiring pads/ depends , if persistent may need further medical or surgical therapy ( rare) Patient confirmed consent Plan: OR today for HoLEP Keep inpatient for CBI and IV abx next 24 hrs Lynn Doll MD [facility] 2024-08-24 23:51:33 Medicine History & Physical Date of Service: 08/24/2024 Pt presents from: Home CC: OR in AM History of Present Illness: Maximus Sheehan is a 68 year old male with past md hx of including hypertension, diabetes, hyperlipidemia, coronary disease, peripheral vascular disease, carotid artery stenosis, history of stroke along with intracranial hemorrhage, BPH with LUTS that presents antibiotics before OR tomorrow. Per patient and record he is planned tomorrow for laser nucleation of the prostate. He has a history of Pseudomonas Argun Apolinar infections and urine culture dated 08/23 is also positive for this. Due to procedure tomorrow urology has requested patient come in and be started on Zosyn presurgical. Patient agrees and is come in for start of treatment. Initial vitals show no fever. Labs do reveal leukocytosis of 11. Chemistry does show an elevated glucose of 200 mg/dL. Urine analysis from yesterday is positive for white blood cells along with red blood cells. Culture already growing Pseudomonas pending final sensitivities. On exam he is alert anxious over surgery. Denies any other complaints at this time. Former smoker denies drinking or drugs at this time. Compliant with medication. ROS: Pt denies F / N / V / D / Constipation / CP / SOB / cough / Abd pain / dysuria / hematuria / melena / hematochezia / rashes / suicidal or homicidal ideation / All others negative Review of Hx/Meds: PMH: Past Medical History: Diagnosis Date Brain bleed CAD (coronary artery disease) CVA (cerebral vascular accident) Diabetes mellitus Hyperlipidemia Hypertension Kidney stone Peripheral vascular disease, unspecified PSH: has a past surgical history that includes craniotomy; coronary artery bypass graft; and carotid endarterectomy (Right, 03/22/2024). Family Hx: Noncontributory unless mentioned above Social History Tobacco Use Smoking status: Former Types: Cigarettes Smokeless tobacco: Never Substance Use Topics Alcohol use: Never Drug use: Not Currently Current Scheduled Medications Current IV Current Facility-Administered Medications: acetaminophen (TYLENOL) tablet 650 mg, 650 mg, Oral, Q6HPRN, Jhony Madden MD [START ON 08/27/2024] aspirin chewable tablet 81 mg, 81 mg, Oral, DAILY, Adela Ward DO dextrose 50 % in water (D50W) injection 25 mL, 25 mL, Slow IV Push, PRN, Jhony Madden MD FENTanyl (PF) (SUBLIMAZE) injection 50 mcg, 50 mcg, Slow IV Push, Q3HPRN x 24 Hours, Jhony Madden MD glucagon HCL injection 1 mg, 1 mg, Intramuscular, PRN, Jhony Madden MD HYDROcodone-acetaminophen (NORCO 5) tablet 1 tablet, 1 tablet, Oral, Q6HPRN, Jhony Madden MD [START ON 08/25/2024] metoprolol succinate XL (TOPROL XL) tablet 25 mg, 25 mg, Oral, DAILY, dAela Ward DO ondansetron (ZOFRAN (PF)) injection 4 mg, 4 mg, Slow IV Push, Q6HPRN, Jhony Madden MD [START ON 08/25/2024] piperacillin-tazobactam (ZOSYN) 3.375 g in NaCl 0.9% (NS) 100 mL MINI-BAG, 3.375 g, IV Piggyback, Q8H ABXChano Jelani, MD [START ON 08/25/2024] rosuvastatin (CRESTOR) tablet 5 mg, 5 mg, Oral, DAILY, Adela Ward, Sliding Scale Insulin - Lispro (HumaLOG), , Subcutaneous, TID MEALS+HS, Jhony Madden MD, 1 Units at 08/24/242103 Objective: Vitals: Vitals: 08/24/24 19408/24/24 2309 BP: (!) 151/90 105/60 Pulse: 95 92 Resp: 15 18 Temp: 36.9 ?C (98.5 ?F) 37.1 ?C (98.8 ?F) TempSrc: Temporal Artery SpO2: 98% 95% Weight: 70.5 kg (155 lb 6.4 oz) I/O's: No intake or output data in the 24 hours ending 08/24/24 9731 Physical Exam: General: NAD, Alert, lying in bed comfortable, cogent speech. HEENT: anicteric, oral mucosa dry Neck: supple, no JVD, no bruits. Chest: CTA B/L, no W/R/C. Heart: RRR, S1/S2, no M/G/R Abdominal: BS normoactive, soft, ND, NT. Skin/Extremities: no rash, no cyanosis, warm and dry, no LE edema. Neurological: CN II-XII grossly intact, no focal deficits. Labs: BMP:BMP NA (mmol/L) Date Value 08/24/2024 136 08/23/2024 134 (L) 07/07/2024 140 05/31/2024 139 03/23/2024 136 K (mmol/L) Date Value 08/24/2024 4.4 08/23/2024 4.5 07/07/2024 3.9 05/31/2024 4.4 03/23/2024 4.1 CALCIUM (mg/dL) Date Value 08/24/2024 9.0 08/23/2024 9.4 07/07/2024 9.5 05/31/2024 9.6 03/23/2024 8.3 (L) CL (mmol/L) Date Value 08/24/2024 104 08/23/2024 100 07/07/2024 108 05/31/2024 102 03/23/2024 107 BUN (mg/dL) Date Value 08/24/2024 16 08/23/2024 17 07/07/2024 11 05/31/2024 12 03/23/2024 14 CREATININE (mg/dL) Date Value 08/24/2024 0.60 08/23/2024 0.61 07/07/2024 0.48 (L) 05/31/2024 0.55 (L) 03/23/2024 0.54 (L) GLUCOSE (mg/dL) Date Value 08/24/2024 200 (H) 08/23/2024 253 (H) 07/07/2024 111 (H) 05/31/2024 137 (H) 03/23/2024 216 (H) CO2 TOTAL (mmol/L) Date Value 08/24/2024 28 08/23/2024 23 07/07/2024 23 05/31/2024 26 03/23/2024 24 CBC:CBC WBC (10*3/?L) Date Value 08/24/2024 11.24 (H) RBC (10*6/?L) Date Value 08/24/2024 4.36 PLT (10*3/?L) Date Value 08/24/2024 296 HGB (g/dL) Date Value 08/24/2024 13.6 HCT (%) Date Value 08/24/2024 39.1 BMP:Hepatic Function Panel ALBUMIN (g/dL) Date Value 08/23/2024 4.3 T PROTEIN (g/dL) Date Value 08/23/2024 7.4 TOTAL BILI (mg/dL) Date Value 08/23/2024 1.0 ALTv (U/L) Date Value 08/23/2024 15 AST(SGOT) (U/L) Date Value 08/23/2024 16 ALK PHOS (U/L) Date Value 08/23/2024 102 Troponin: Recent Labs 07/07/24 1714 TROPNI 0.003 I have reviewed all relevant labs Imaging: CT ABDOMEN PELVIS W WO CONTRAST Result Date: 08/10/2024 CT Abdomen and Pelvis without and with intravenous contrast. CLINICAL HISTORY: Gross hematuria. DOSE: Up-to-date CT equipment and radiation dose reduction techniques were employed. CTDIvol: 7.73+7.70 mGy. DLP: 801.30 MGy-cm. TECHNIQUE : Contiguous axial imaging from the level of the lung bases through the pubic symphysis were performed initially without contrast and subsequently after the uncomplicated administration of nonionic contrast material. Coronal and sagittal reconstructions were obtained. Auto mA and/or iterative reconstruction were used to reduce radiation dose. FINDINGS: Comparison has been made with 07/01/[address] studies. Lower lungs: Lower most sternotomy suture noted, probably utilize for CABG surgery. Visualized lungs are clear. No pleural effusion or pericardial effusion. Probable small sliding-type hiatal hernia. Liver, Gallbladder and Spleen: Normal. 15 mm nodule adjacent to the tail of the pancreas is likely an accessory splenule, unchanged. Peritoneum: No free air or free fluid. No lymphadenopathy. Pancreas and Adrenals: Unremarkable pancreas and adrenal glands. Kidneys and Ureters: 5 x 2 mm calcification noted in the midportion of the right kidney adjacent to the posterior wall of 3.9 cm cystic lesion. Left kidney contains 3 mm and 1 mm calcifications in the anterior cortex and faint 1 mm calcification in the lower pole adjacent to the collecting system. No hydroureter or hydronephrosis. Both kidneys contain several hypodense lesions ranging from the largest of 3.9 cm and the right kidney to less than 1 cm size also in the right kidney. Largest hypodense lesion in the left kidney is 2.2 cm. Vessels: Moderate atherosclerosis. No AAA. Retroperitoneum: No abnormal fluid or lymphadenopathy. Bowel: Constipation with large fecal load throughout large bowel. Normal appendix and small bowel gas pattern. Bladder and Reproductive Organs: Enlarged prostate gland. Irregular enhancement of the lumen of the urinary bladder is due to mixing of nonopacified with jets of opacified urine. Mild diffuse thickening of the bladder wall is noted, likely secondary to enlarged prostate gland. Bones: No acute findings. No aggressive bone lesions. Soft tissues: Focal areas of subcutaneous fat congestion in both lower anterior abdominal wall fat, likely sites of subcutaneous injection sites of medications. CONCLUSION: 1. Small calcifications in both kidneys could be nonobstructing stones, largest calcification in the right kidney of 5 x 2 mm size is unchanged when compared with previous study of 07/01/2024. 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 3. Enlarged prostate and thickened bladder sims. 4. Constipation with large fecal load. 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 after midnight Hypertension: - Restart metoprolol has holding parameters since patient is variable and blood pressure Hyperlipidemia: - Continue statin History of stroke: - Restart aspirin postsurgical and continue statin Diabetes mellitus type 2: - Hold oral and long acting insulin the setting of n.p.o. - Start sliding scale DVT prophylaxis: SCD Advanced Care Planning ( Z71.89 ) Above assessment and plan discussed at length with patient, patient expressed full understanding. Questions and concerns addressed I spent 18 minutes discussing the advance care planning. Advanced Directive Maker: PT Level of comfort: N/A Code Status: Full [place] [employer] CONSULTANT was verified Disposition: Admit for IV ABX, plan OR in AM T [employer] EMERGENCY PHYSICIAN STAFF [facility] 2024-07-07 16:49:31 XpertMD History & Physical DATE: 07/07/2024 SERVICE: Internal Medicine CHIEF COMPLAINT: Dizziness HISTORY OF PRESENT ILLNESS Maximus Sheehan is a 68 year old male with history of subdural hematoma status postcraniotomy in 2021 complicated by stroke in the past now sent over to [facility] ED from neurology clinic with worsening of dizziness with right arm numbness. Patient sent over for possible neurovascular imaging. Patient denies any chest pain/shortness of breath/palpitations/headaches . Patient appears in no acute distress. ALLERGIES Maximus is allergic to jardiance [empagliflozin] and morphine. MEDICATIONS No current facility-administered medications for this encounter. Current Outpatient Medications: metoprolol succinate XL 25 mg 24 hr tablet, Take 1 tablet by mouth in the morning., Disp: 30 tablet, Rfl: 5 pioglitazone (ACTOS) 30 mg tablet, Take 1 tablet by mouth in the morning., Disp: 90 tablet, Rfl: 0 glipiZIDE XL 5 mg 24 hr tablet, Take 1 tablet by mouth daily with breakfast., Disp: 90 tablet, Rfl: 0 BD ULTRAFINE III MINI PEN 31 gauge x 3/16" Ndle, USE DIRECTED 4 TIMES A DAY, Disp: 300 Each, Rfl: 1 dulaglutide (TRULICITY) 1.5 mg/0.5 mL PnIj, INJECT 1 PEN SUBCUTANEOUSLY WEEKLY, Disp: 9 Pen, Rfl: 9 triamcinolone acetonide 0.1 % cream, Apply to area(s) 2 (two) times daily., Disp: 454 g, Rfl: 7 Insulin Glargine (LANTUS SOLOSTAR U-100 INSULIN) 100 unit/mL (3 mL) injection, Taking 28-30 U daily, Disp: , Rfl: rosuvastatin (CRESTOR) 5 mg tablet, Take 1 tablet by mouth in the morning., Disp: 90 tablet, Rfl: 0 METFORMIN 500 mg tablet, TAKE 1 TABLET BY MOUTH IN THE MORNING AND IN THE EVENING WITH MEALS, Disp: 180 tablet, Rfl: 1 flash glucose sensor (FREESTYLE JOSE 2 SENSOR) Kit, 1 Kit every 2 (two) weeks., Disp: 6 Kit, Rfl: 1 cholecalciferol, vitD3,/vit K2 (VITAMIN D3-VITAMIN K2 ORAL), Take by mouth., Disp: , Rfl: docosahexaenoic acid/epa (FISH OIL ORAL), Take by mouth., Disp: , Rfl: Magnesium Oxide 500 mg Cap, Take by mouth., Disp: , Rfl: ubidecarenone (CO Q-10 ORAL), Take by mouth., Disp: , Rfl: Blood-Glucose Sensor (FREESTYLE JOSE 3 SENSOR) Yumiko, Use as directed, Disp: 5 Each, Rfl: 3 insulin aspart U-100 (NOVOLOG FLEXPEN U-100 INSULIN) 100 unit/mL (3 mL) injection, inject 10 Units under the skin in the morning and 10 Units at noon and 10 Units in the evening. inject before meals. Inject 5 to 10 units three times a day with meals, Disp: 3 Each, Rfl: 1 Patient's Medications START taking these medications No medications on file CONTINUE taking these medications which have NOT CHANGED BD ULTRAFINE III MINI PEN 31 GAUGE X 3/16" NDLE USE DIRECTED 4 TIMES A DAY BLOOD-GLUCOSE SENSOR (FREESTYLE JOSE 3 SENSOR) YUMIKO Use as directed CHOLECALCIFEROL, VITD3,/VIT K2 (VITAMIN D3-VITAMIN K2 ORAL) Take by mouth. DOCOSAHEXAENOIC ACID/EPA (FISH OIL ORAL) Take by mouth. DULAGLUTIDE (TRULICITY) 1.5 MG/0.5 ML PNIJ INJECT 1 PEN SUBCUTANEOUSLY WEEKLY FLASH GLUCOSE SENSOR (FREESTYLE JOSE 2 SENSOR) KIT 1 Kit every 2 (two) weeks. GLIPIZIDE XL 5 MG 24 HR TABLET Take 1 tablet by mouth daily with breakfast. INSULIN ASPART U-100 (NOVOLOG FLEXPEN U-100 INSULIN) 100 UNIT/ML (3 ML) INJECTION inject 10 Units under the skin in the morning and 10 Units at noon and 10 Units in the evening. inject before meals. Inject 5 to 10 units three times a day with meals INSULIN GLARGINE (LANTUS SOLOSTAR U-100 INSULIN) 100 UNIT/ML (3 ML) INJECTION Taking 28-30 U daily MAGNESIUM OXIDE 500 MG CAP Take by mouth. METFORMIN 500 MG TABLET TAKE 1 TABLET BY MOUTH IN THE MORNING AND IN THE EVENING WITH MEALS METOPROLOL SUCCINATE XL 25 MG 24 HR TABLET Take 1 tablet by mouth in the morning. PIOGLITAZONE (ACTOS) 30 MG TABLET Take 1 tablet by mouth in the morning. ROSUVASTATIN (CRESTOR) 5 MG TABLET Take 1 tablet by mouth in the morning. TRIAMCINOLONE ACETONIDE 0.1 % CREAM Apply to area(s) 2 (two) times daily. UBIDECARENONE (CO Q-10 ORAL) Take by mouth. START taking Modified Medications as Prescribed No medications on file STOP taking these medications No medications on file PAST MEDICAL HISTORY Past Medical History: Diagnosis Date Brain bleed Diabetes mellitus Hypertension Kidney stone PAST SURGICAL HISTORY Past Surgical History: Procedure Laterality Date CAROTID ENDARTERECTOMY Right 03/22/2024 Surgeon: Ron Hoover MD; Location: [facility] CORONARY ARTERY BYPASS GRAFT CRANIOTOMY PAST SOCIAL HISTORY Social History Socioeconomic History Marital status: Tobacco Use Smoking status: Former Types: Cigarettes Smokeless tobacco: Never Substance and Sexual Activity Alcohol use: Never Drug use: Not Currently Social Determinants of Health Financial Resource Strain: Low Risk (05/26/2024) Overall Financial Resource Strain (CARDIA) Difficulty of Paying Living Expenses: Not hard at all Food Insecurity: No Food Insecurity (05/26/2024) Hunger Vital Sign Worried About Running Out of Food in the Last Year: Never true Ran Out of Food in the Last Year: Never true Transportation Needs: Unmet Transportation Needs (05/26/2024) PRAPARE - Transportation Lack of Transportation (Medical): Yes Lack of Transportation (Non-Medical): No Physical Activity: Insufficiently Active (05/26/2024) Exercise Vital Sign Days of Exercise per Week: 3 days Minutes of Exercise per Session: 30 min Social Connections: Unknown (03/23/2024) Social Connection and Isolation Panel [NHANES] Frequency of Communication with Friends and Family: More than three times a week Marital Status: Housing Stability: High Risk (05/26/2024) Housing Stability Vital Sign Unable to Pay for Housing in the Last Year: No Number of Places Lived in the Last Year: 3 Unstable Housing in the Last Year: No PAST FAMILY HISTORY Family History Problem Relation Age of Onset Diabetes Mother Cancer Mother Coronary Heart Disease Mother Hypertension Mother Coronary Heart Disease Father Heart Father Hypertension Father Diabetes Sister REVIEW OF SYSTEMS Patient denies any headaches but positive for dizziness, no fevers or chills, no nausea or vomiting, denies any neck pain or stiffness, denies any chest pain or chest pressure or palpitations, denies any shortness of breath, denies any abdominal pain or any changes in bowel or bladder habits, denies any lower extremity swelling, denies any focal motor or sensory deficits, denies any anxiety or depression, and all other systems have been reviewed and are negative except as listed above. PHYSICAL EXAMINATION Vitals: 07/07/24 1527 07/07/24 1529 BP: 138/73 BP Location: Left arm Patient Position: Sitting Pulse: 75 Resp: 17 Temp: 36.6 ?C (97.8 ?F) SpO2: 98% Weight: 71.7 kg (158 lb) Height: 1.829 m (6') General: Lying comfortably in no signs of any acute distress HEENT: Normocephalic atraumatic, extraocular muscles appear intact, mucosa moist, neck supple Heart: S1-S2 RRR, no murmurs, rubs or clicks Lungs: Clear to auscultation bilaterally, no rhonchi rales or wheezes noted GI: Soft, nontender, nondistended, positive bowel sounds ? quadrants Extremities: No clubbing, cyanosis or edema noted Neurologic: Cranial nerves II through XII appear grossly intact, no focal motor or sensory deficits noted Psychiatric: No anxiety or depression noted LABS AND IMAGING No results found for this or any previous visit (from the past 24 hour(s)). Radiology No final results containing an impression from the past 48 hours were found. ASSESSMENT AND PLAN Maximus Sheehan is a 68 year old male who presents with: -Worsening of dizziness -History of subdural hematoma status postcraniotomy -Hypertension -Hyperlipidemia -DM2 -History of old CVA Plan: -Full code -Admit for OBS -Medications reviewed and reconciled -Stroke protocol initiated -Monitor on telemetry -O2 support per nasal cannula -Neurology consulted -MRI of the brain pending -Lovenox for DVT prophylaxis -Schedule insulin/sliding scale insulin for glycemic control -Fall precautions -Bowel regimen -Check a.m. labs -Supportive care Anita Field DO FM-ADULT MEDICINE STAFF [facility] 2024-03-22 06:11:17 Interval H&P Chief complaint: Carotid [...] All questions were answered. Physical exam Vitals: 03/22/24527 BP: (!) 143/74 Pulse: 75 Resp: 18 [...] hemorrhage. He was treated initially in the [facility] and then was apparently transferred to [place] for further care. He reports that testing [...] 12 Pen 0 flash glucose sensor (FREESTYLE JOSE 2 SENSOR) Kit 1 Kit every 2 [...] ORAL) Take by mouth. Blood-Glucose Sensor (FREESTYLE JOSE 3 SENSOR) Yumiko Use as directed 5 Each 3 losartan [...] endarterectomy in the near near future at [place]. [facility] - Health Procedure Notes Date/Time Note Provider Source 2024-08-25 07:44:28 Full Operative Note Patient name: Maximus Sheehan Number: [id number] Date of operation: 08/24/2024 - 08/25/2024 Faculty surgeon: Lynn Doll Pre-operative diagnosis: BPH with LUTS, chronic urine retention , CIC , hematuria, bacterial colonization.. CT prostate volume 110 cc Post-operative diagnosis: BPH with LUTS Operation performed: Transurethral Laser Enucleation of the Prostate (CPT - 23559) Findings: Normal urethra and bladder mucosa. No lesions or masses were seen. The prostate appeared obstructive bilobar with small median lobe . Clear efflux drained from both ureteral orifices and preserved by the end of the case after enculating adenoma. The bladder had increased capacity, trabeculation, ++ tics, no stones . The patient tolerated the procedure well. There were no complications in this procedure. Enculation time :21 mins Hemostasis time :4 mins Morcellation time :4 mins Laser time : 29 mins Prostate chips : 44 g The patient was taken to the OR where a timeout was performed amongst all operative staff. GETA was administered per anesthesiology and the patient was given Zosyn and Cipro IV as a sid-procedural antibiotic. The patient was then positioned in dorsal lithotomy position and prepped/draped in the usual sterile fashion. The meatus was initially calibrated from 18 to 30 Fr sequentially with Billy urethral sounds. A resectoscope with a visual obturator was then advanced per urethra into the bladder and the bladder was emptied. A laser bridge was then introduced and a 550 micron Holmium laser was introduced. The prostate was noted to be large and tri-lobar in appearance. No suspicious lesions or masses were noted within the bladder. Beginning at the level of the verumontanum, the prostate was systematically enucleated. Enucleation was initiated posteriorly near the apex and continued laterally before advancing the enucleation anteriorly. After the anterior enucleation plane was created, the bladder was entered and the bladder neck was incised bilaterally until the anterior and posterior enucleation planes were join. The remaining posterior attachments were then then incised until the prostatic adenoma had been fully enucleated. The prostatic adenoma was then advanced into the bladder lumen and a transurethral morcellator was introduced. The prostatic adenoma was fully morcellated and evacuated from the bladder. Final cystoscopy demonstrated no evidence of residual adenoma within the bladder or prostatic fossa. Hemostasis was achieved with the laser fiber. All instrumentation was then removed and a 22 Fr 3-way catheter was advanced per urethra into the bladder with 50 cc of sterile water in the catheter balloon. CBI was initiated with CYU output. This concluded the procedure, there were no complications. The patient was safely extubated and transferred to PACU in stable condition. Complications: none Estimated blood loss: 50 mL Specimens: prostate Patient's Condition: stable to PACU Any other important information: Keep inpatient for another 24 hrs for IV Abx Keep slow CBI, till fluids run out, then clamp Thursday08/26/2024 at 4 AM Lynn Doll MD [facility] Notes Date/Time Note Provider Source 2025-02-06 16:32:01 Summary: AMA Went in to assist patient to restroom. Patient complained he has not received any insulin nor been seen by the doctor. Explained to him that Dr Ward is experiencing an onslaught of new admissions and that he has just started rounding if he can wait little longer. While patient in restroom looked up and reported to to patient he had received humalog at lunch, but patient stated he needs long acting lantis. Patient said he is done waiting and wants his IV out. I retrieved the AMA paperwork. Dr Ward made aware. Dr Ward tried to explain to patient that he was waiting for echo to be read and further troponin labs were needed at six hour intervals. Patient continually interrupted him demanding "that is too late, I am going home." Karuna Jones RN [facility] 2025-02-06 15:50:50 Problem: Discharge Planning Goal: Adequate for discharge Outcome: Progressing as expected Goal: Effective communication Outcome: Progressing as expected Problem: Glucose Control - Initiated in Adult CC Goal: Glucose level within specified parameters Outcome: Progressing as expected Problem: Pain Goal: Control of pain at or below patient's documented comfort goal Outcome: Progressing as expected Goal: Reduction in pain sensation Outcome: Progressing as expected Problem: Falls, Risk of Goal: Absence of falls Outcome: Progressing as expected [facility] 2025-02-06 09:40:00 Addended by: JACE IRBY, ALLYSON on: 02/07/2025 07:46 AM Modules accepted: Orders [facility] 2025-02-01 08:34:19 Coupsta message has been sent. Jose Ramos RN [facility] 2025-01-31 23:33:35 1. Type 2 diabetes mellitus without complication, with long-term current use of insulin Hypoglycemic protocol - insulin lispro (HUMALOG KWIKPEN INSULIN) 100 unit/mL pen injector; inject 5 Units under the skin in the morning and 5 Units at noon and 5 Units in the evening. inject before meals. Dispense: 3 mL; Refill: 3 T [facility] 2025-01-31 16:25:[address] Doll, pt can increase flomax to bid-may have dizzines. Pt may increase CIC to tid. Appt given for next week with Dr Doll. Michelle Rust RN [facility] 2025-01-31 15:59:10 RTC next week , ok to OB T [facility] 2025-01-31 15:49:53 Pt had to leave appointment today before being seen. He is requesting to increase flomax to bid. Please advise. PVR in office today 187. [facility] 2025-01-31 13:43:15 Pt was seen in the clinic today and had to leave due to his transportation and has questions about his medication Flomax. Please Assist Joe Mir [facility] 2025-01-31 12:21:40 Routing request to provider to send: insulin lispro, human, (HUMALOG U-100 INSULIN) 100 unit/mL injection In "Pen Form". Jose Ramos RN [facility] 2025-01-31 12:05:31 Maximus Sheehan is a 69 year old male Pt is requesting to speak with a nurse regarding the insulin prescription. Pt only wants the pen version and only has 1 pen left. Elaine Pereira [facility] 2025-01-31 11:46:33 Johanna with [facility] pharmacy called and states that pt informed her that he only gets the pen injections, not the vial. She is requesting a prescription for the pen injection. Please advise. insulin lispro, human, (HUMALOG U-100 INSULIN) 100 unit/mL injection Janie Hardwick [facility] 2025-01-31 08:49:31 Faxed 01/30/25, confirmation received Jazmin Jones MA 01/31/2025 8:50 AM [facility] 2025-01-27 16:03:36 Form placed in provider folder for signature. Jose Ramos RN [facility] 2025-01-26 16:10:19 Addended by: JOSE FINLEY V on: 01/26/2025 04:10 PM Modules accepted: Orders Jose Ramos RN [facility] 2025-01-26 14:30:08 Images from the original note were not included. Cynthia Walker [facility] 2025-01-26 08:55:18 1. Multiple falls - Walker (ULTRA-LIGHT ROLLATOR) [facility]; R55/W19.XXXS/M79.604/R06.02/I5 0.32/I51.7/E11.3511: Use daily for ambulation/fall precaution (brand pending insurance approval) Dispense: 1 Each; Refill: 0 2. Balance problem - Walker (ULTRA-LIGHT ROLLATOR) [facility]; R55/W19.XXXS/M79.604/R06.02/I5 0.32/I51.7/E11.3511: Use daily for ambulation/fall precaution (brand pending insurance approval) Dispense: 1 Each; Refill: 0 3. Dependent on walker for ambulation - Walker (ULTRA-LIGHT ROLLATOR) [facility]; R55/W19.XXXS/M79.604/R06.02/I5 0.32/I51.7/E11.3511: Use daily for ambulation/fall precaution (brand pending insurance approval) Dispense: 1 Each; Refill: 0 faxed to [phone] care of [place] [facility] 2025-01-23 11:33:24 Called pt in regards to colonoscopy results. Pt confirmed name and . Pt verbalizes understanding of results. Ashley Casas MIKEY [facility] 2025-01-15 13:38:23 1. Type 2 diabetes mellitus without complication, with long-term current use of insulin - flash glucose scanning reader (FREESTYLE JOSE 14 DAY READER) Misc; Take 1 Box in the morning and 1 Box in the evening. E11.65: check home blood glucose BID (brand approval by insurance) Dispense: 1 Each; Refill: 11 [facility] 2024-12-28 11:16:[address] Doll and faxed back to [facility]. OGRAPHY TECHNICIAN Michelle Rust RN [facility] 2024-12-27 11:04:51 [facility] calling to check on status on order form and record request. Please advise. OGRAPHY TECHNICIAN Ana Maria Andrew [facility] 2024-12-26 13:21:09 Images from the original note were not included. Last OV:11/09/24 with Marcel Toth MD Last Refill:08/29/24 prescribed by [facility] Last Labs Pertaining to Med:11/07/24 Future Appt: Future Appointments Provider Department Dept Phone 12/29/2024 1:00 PM Allyson Fink MD [facility] [phone] 01/17/2025 4:00 PM Apurva Leonard, PT [facility] [phone] 01/23/2025 4:15 PM Abigail Gomes MD [facility] [phone] 01/31/2025 10:15 AM Lynn Doll MD [facility] Urology, [place] [phone] 02/06/2025 8:20 AM Marcel Toth MD [facility] Adult & Geriatric Primary Care, [place] [phone] 08/08/2025 1:00 PM [facility] VASCULAR 1 [facility] Echocardiograph/Vascular Lab, [place] [phone] 08/24/2025 1:00 PM Ron Hoover MD [facility] Vascular Surgery, [place] [phone] Requested Renewals metFORMIN 500 mg tablet Sig: Take 1 tablet by mouth in the morning and 1 tablet in the evening. Take with meals. Disp: Not specified Refills: Start: 12/26/2024 Class: eRX Non-formulary Last ordered: 3 months ago (08/29/2024) by Smarr Doctor Unassigned Endocrinology: Diabetes - Biguanides [id number]/26/2024 10:29 AM Protocol Details Valid encounter within last 12 months Cr is between 0 and 1.3 and within 360 days HBA1C within 180 days To be filled at: [facility]/pharmacy #[id number] AT [facility] OGRAPHY TECHNICIAN [facility] 2024-12-22 13:45:34 Received forms from [facility] and they were placed into the nurses basket for review. Mir [facility] 2024-12-21 11:15:15 Called patient and discussed Dr Doll's recommendations with pt. Understanding verbalized and he agrees to continue with CIC. Rust RN [facility] 2024-12-21 09:44:14 Patient called and wanted to update medications, now taking tamsulosin. Added to profile and advised patient okay to take morning of procedure. OGRAPHY TECHNICIAN Ketty Starks RN [facility] 2024-12-20 17:38:26 Tamsulosin is very unlikely to help in the setting of chronic urine retention and weak bladder I still recommend CIC to avoid complications I sent prescription RTC as scheduled [facility] 2024-12-20 13:31:24 Patient requesting for Flomax as it was recommended by a friend and would prefer not to use catheters. Please advise. Andrew [facility] 2024-12-19 17:20:40 Images from the original note were not included. Your upcoming procedure is at [facility] on 12/28/24. The address is [address] [place] [address], [id number]The nursing staff at [facility] will call you the workday before your procedure to let you know what time to arrive. When you arrive, please go inside and sign in at the desk. Please note: You may not travel home alone after your procedure and that includes in a taxi or by bus. We must speak to your Responsible Adult (who will be picking you up) the morning of your procedure, before the start of your procedure. This person must be an adult over the age of 18 years of age. Maintain a clear liquid diet the entire day before your procedure. Do not drink anything containing red, blue, or purple dyes. Follow the instructions of your bowel prep as directed by you physician. You may also take your medications the morning of your procedure with a sip of water as directed by physician. Anticoagulants will be per physician Guidance. Will hold ASA starting tomorrow. Medication Note(s)/Instructions: Instructed to hold Trulicity dose due on 12/22/27, hold metformin evening before and morning of procedure, and hold insulin morning of procedure. Advised to take metoprolol morning of procedure. Both patient and person accompanying and/or picking patient up must be able to wear a mask and be without symptoms of COVID 19. Pending screening, a COVID test may be required. If a patient tests positive, their cases are cancelled and/or rescheduled. COVID NOTE: Denies COVID symptoms or exposure, no testing required. Advised patient will be called workday prior procedure between 12p-3p and given arrival time. Additional questions, concerns, requests:CB number and availability provided. Patient verbalized understanding of pre-op instructions and voiced no further questions at this time. [facility] 2024-12-14 08:19:12 Spoke with patient and informed medication has been sent to pharmacy. Calderon MA [facility] 2024-12-13 19:19:17 1. Coronary artery disease of bypass graft of [place] heart with stable angina pectoris - metoprolol succinate XL 25 mg 24 hr tablet; Take 1 tablet by mouth in the morning. Dispense: 90 tablet; Refill: 2 2. HFrEF (heart failure with reduced ejection fraction) - metoprolol succinate XL 25 mg 24 hr tablet; Take 1 tablet by mouth in the morning. Dispense: 90 tablet; Refill: [address] [facility] 2024-12-13 12:57:05 Pt is following up on below phone encounter and send script chayito Telles in [place]. metoprolol succinate XL 25 mg 24 hr tablet [facility] Delores Flores [facility] 2024-12-13 11:45:09 Refill request for metoprolol received. Refill sent to pharmacy of choice. Patient is compliant as per [facility] Cardiology Protocol. OGRAPHY TECHNICIAN Franklin Preston MA [facility] 2024-12-12 10:41:08 Per chart review Metoprolol has not been filled by our office, routing request to provider for review. Disp Refills Start End ROGER metoprolol succinate XL 25 mg 24 hr tablet -- -- 08/26/2024 -- -- Sig: Take 1 tablet by mouth every morning. Class: Historical Med Route: Oral Order: [id number] Date/Time Signed: 08/29/2024 14:46 Recent Visits Date Type Provider Dept 11/07/24 Office Visit Marcel Toth MD [facility] Medicine 08/29/24 Office Visit Marcel Toth MD [facility] Medicine 08/23/24 Office Visit Marcel Toth MD [facility] 07/25/24 Office Visit Marcel Toth MD [facility] Family Medicine 06/13/24 Office Visit Marcel Toth MD [facility] 05/26/24 Office Visit Marcel Toth MD [facility] 05/26/24 Office Visit Marcel Toth MD [facility] 03/29/24 Office Visit Pat Chaidez FNP [facility] 03/03/24 Office Visit Pat Chaidez FNP [facility] 02/25/24 Office Visit Pat Chaidez [facility] Showing recent visits within past 540 days with a meds authorizing provider and meeting all other requirements Future Appointments Date Type Provider Dept 02/06/25 Appointment Marcel Toth MD [facility] Showing future appointments within next 150 days with a meds authorizing provider and meeting all other requirements Ramos RN [facility] 2024-12-12 10:12:36 Maximus Sheehan is a 69 year old male Pt calling in stating he lost his med. PT req for 10 day supply to hold him over. metoprolol succinate XL 25 mg 24 hr tablet [facility] - [place], [place] - [address] [[id number]] OGRAPHY TECHNICIAN Bebe Chaidez [facility] 2024-11-21 14:25:44 Images from the original note were not included. Requested Renewals rosuvastatin 5 mg CpSP Sig: Take 5 mg by mouth every evening. Disp: Not specified Refills: Start: 11/21/2024 Class: eRX Non-formulary Last ordered: 2 months ago (08/29/2024) by Smarr Doctor Unassigned Cardiovascular: Antilipid - HMG-CoA Reductase Inhibitors [id number]/21/2024 12:08 PM Protocol Details Valid encounter within last 12 months Total Cholesterol within 360 days LDL within 360 days HDL within 360 days Triglycerides within 360 days AST in normal range and within 360 days ALT in normal range and within 360 days To be filled at: [facility]pharmacy #[id number] [place], [place] - [address] [place] [address] 11-07-2024 NOV 02-06-2025 OGRAPHY TECHNICIAN Marianela Calderon MA [facility] 2024-11-16 18:13:57 Pt discharged with diagnosis of acute cystitis with hematuria, dysuria, and malaise. Printed and verbal instructions reviewed with and given to pt. Prescriptions given x 2. pt verbalized understanding of teaching and recommended follow-up. Denies questions or concerns at this time. Pt ambulatory at discharge. Appears in no apparent distress. No ataxia noted. OGRAPHY TECHNICIAN sEtee Mccord RN [facility] 2024-11-16 14:14:42 Pt. Reports he noticed mild, light blood in urine since last night with mild burning, with dizziness & general malaise x2 days; pt. Reports hx of UTIs; pt. Reports having prostate sx on 08/25/24; denies diarrhea Jones RN [facility] 2024-11-11 13:48:43 moderate cardiac risk. Ok to hold aspirin if absolutely necessary. [facility] 2024-11-11 09:05:30 The following patient is scheduled for colonoscopy with TBD at [facility] Surgery Department. The procedure is currently scheduled on TBD and requires cardiac clearance prior to the procedure. Please submit the following: Note indicating cardiac clearance risk level 2. Most recent office note date 3. Recent tests (if not accessible in Epic): Labs, EKG, Echo, etc 4. Information on implantable devices (pacemaker, AICD, last interrogation, device type with response to magnet and most recent EP report) 5. Perioperative recommendations / management 6. Optimization for surgery, any needs for cardiac testing prior to having surgery Thank you, [facility] Sahu RN [facility] 2024-11-09 11:28:08 Called patient and informed Jazmin Jones MA 11/09/2024 11:[address] [facility] 2024-11-09 10:56:37 1. Type 2 diabetes mellitus without complication, with long-term current use of insulin - insulin glargine 100 unit/mL (3 mL) inps; inject 22 Units under the skin every morning. Dispense: 12 mL; Refill: 1 - insulin lispro, human, (HUMALOG U-100 INSULIN) 100 unit/mL injection; inject 5 Units under the skin 3 (three) times daily as needed for Other (hyperglycemia). Dispense: 10 mL; Refill: [address] [facility] 2024-11-09 09:38:28 Routed to the provider to review and fill Jazmin Jones MA 11/09/2024 9:[address] [facility] 2024-11-09 09:27:35 Patient is requesting a prescription of insulin glargine,hum.rec.anlog (LANTUS SOLOSTAR U-100 INSULIN SC). Patient is out and needs medication DAVID Martell [facility] 2024-11-09 08:58:36 Images from the original note were not included. Requested Renewals Name from pharmacy: LANTUS SOLOSTAR 100 UNIT/ML Will file in chart as: LANTUS SOLOSTAR U-100 INSULIN 100 unit/mL (3 mL) injection The original prescription was discontinued on 05/26/2024 by Marcel Toth MD. Renewing this prescription may not be appropriate. Sig: INJECT 20 UNITS UNDER THE SKIN IN THE MORNING. Disp: 30 Each Refills: 2 Start: 11/09/2024 Class: eRX Non-formulary For: Type 2 diabetes mellitus without complication, with long-term current use of insulin Last ordered: 11 months ago (11/27/2023) by ROBYN Rollins Last refill: 05/23/2024 Rx #: [id number] Endocrinology: Diabetes - Insulins Bblehc4311/09/2024 08:54 AM Protocol Details Manual review: Staff refilling for [facility], Cr lab not required to refill Valid encounter within last 12 months HBA1C within 180 days Cr in normal range and within 360 days To be filled at: [id number] - [place], [place] - [address] [place] [address] Last office note: 11-07-2024 DM II - on Humalog, metformin 500 mg Bid with meals, and Lantus 28 units-30 units. Max humalog he has taken daily is 15 units. No longer on Actos. Reports BG in 70s occasionally. He will eat foods to help raise BG when that happens. States he has a bad habit of overcompensating and causing BG to elevate. Not on glipizide due lightheaded and dizziness. Reports dizziness when BG is low or high. [facility] Marianela Calderon MA [facility] 2024-11-07 09:00:00 Images from the original note were not included. Venipuncture collection performed by clean technique on the right anticubitus. Total of 1 attempts were made. Slight pressure and a bandage/dressing were applied to the site(s). The patient experienced no complications. The following specimens were processed according to instructions and sent to [facility] laboratories per lab order on 11/07/2024: LT BLUE SST 1 RED LAV 2 PPT DK GREEN (LiHep) DK GREEN (SodH) MENON DK BLUE (K2) DK BLUE (S) ACD Blood Culture NIPT/NTD Patient has been identified by and name and was provided with cup, antiseptic towelette, and clean catch instructions. 1 urine specimen(s) sent. Unpreserved 1 Urine Culture Aptima tube Other urine [facility] 2024-10-11 11:16:26 Notes: Colon Screening - Jony Martines MD. Per ambulatory protocol referral has been sent. Recent Visits Date Type Provider Dept 08/29/24 Office Visit Marcel Toth MD [facility] Family Medicine 08/23/24 Office Visit Marcel Toth MD [facility] Family Medicine 07/25/24 Office Visit Marcel Toth MD [facility] 06/13/24 Office Visit Marcel Toth MD [facility] Medicine 05/26/24 Office Visit Marcel Toth MD [facility] 05/26/24 Office Visit Marcel Toth MD [facility] Family Medicine 03/29/24 Office Visit Pat Chaidez FNP [facility] Family [facility] 03/03/24 Office Visit Pat Chaidez FNP [facility] 02/25/24 Office Visit Pat Chaidez FNP [facility] 12/11/23 Office Visit Pat Chaidez FNP [facility] Showing recent visits within past 540 days with a meds authorizing provider and meeting all other requirements Future Appointments Date Type Provider Dept 11/07/24 Appointment Marcel Toth MD [facility] Showing future appointments within next 150 days with a meds authorizing provider and meeting all other requirements [facility] 2024-10-11 11:00:19 Pt is scheduled 10/28 and an auth referral is needed. Please Assist Mir [facility] 2024-10-07 17:27:16 Patient states that he is having new urinary leakage since seeing Dr. Doll on 09/13/24. He leaks anytime he turns, stands, coughs, walks. He is having to change clothes more than twice a day due to accidents. Discussed with Dr. Doll in office, advised patient may be experiencing incontinence due to his retention "bladder overflow". Advised patient come in to clinic on Thursday10/10/24 for PVR and CIC teaching. Patient was upset to hear that he may need to CIC again however he verbalized understanding via teachback of current recommendations. KANIKA MORELAND RN 10/07/2024 5:39 PM OGRAPHY TECHNICIAN Kanika Moreland RN [facility] 2024-10-06 11:11:38 Patient called and stated that he started having issues with urination, he stated that he is fine while he is sitting down, as soon as he gets up he starts leaking and has to go immediately to the bathroom. Patient has several questions and concerns please call to [phone]. 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 RN tries to take a warm transfer and patient ends the call with PAS. RN calls patient, who answers and begins telling the RN that he is just tired of people. Patient states that he had some recent surgery and has been diagnosed with prostate cancer and he just wants to be left alone. Patient states that he has restrictions and is not supposed to lift more than 10 lbs but the Home Health agency that was supposed to come to the house to help patient did not show twice. Patient states that the other place just makes him sandwiches and "I can do that myself." Patient states that he is always lightheaded and dizzy from a stroke that he suffered 2 years ago and he is not able to drive so transportation to appointments is difficult as well. Patient states that he is "tired of seeing doctors and all they want to do is give me medication and I am so tired of taking all this medication. 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 Patient denies having any children or family and patient states, "I have no one." Patient denies any thoughts of wanting to hurt himself or anyone else. Patient states, "I just want my appointments cancelled and I will start over again in November." Patient states, "I do not need anyone right now, I want to be left alone, thank you for checking on me young lady," and the call is ended. Patient had 2 appointments in September, and RN has cancelled them. RN will also forward this encounter to the services that patient sees to make everyone aware of the situation. [facility] 2024-09-19 13:51:00 Called patient 09/20/24 10:00 Am Noted he doing well and just having challenges with the home health providers and challenges with the impaired adls. Noted he is taking oct and nov off. Having challenges with his chronic problems and his osorio Supportive counselling given Denies Si/Hi/AVH 1. Impaired mobility and ADLs - Consult/Referral Paper Conservator [facility] 2024-09-19 13:51:00 Addended by: MARCEL BEST on: 09/20/2024 10:13 AM Modules accepted: Orders [facility] 2024-09-15 13:51:26 Images from the original note were not included. Medical records received [facility] placed in Dr. Lewis folder for review. Walker [facility] 2024-09-13 13:40:47 Referral to general cardiology placed for patient. [facility] 2024-09-13 12:21:55 1. Multiple falls - Miscellaneous Medical Supply Kit; Shower head w a hose shower stool 3 wheeled electric scooter Use as directed Dispense: 1 Kit; Refill: 0 2. Dizziness - Miscellaneous Medical Supply Kit; Shower head w a hose shower stool 3 wheeled electric scooter Use as directed Dispense: 1 Kit; Refill: 0 3. Dependent on walker for ambulation - Miscellaneous Medical Supply Kit; Shower head w a hose shower stool 3 wheeled electric scooter Use as directed Dispense: 1 Kit; Refill: 0 4. Balance problem - iscellaneous Medical Supply Kit; Shower head w a hose shower stool 3 wheeled electric scooter Use as directed Dispense: 1 Kit; Refill: 0 5. Cerebrovascular accident (CVA), unspecified mechanism - Miscellaneous Medical Supply Kit; Shower head w a hose shower stool 3 wheeled electric scooter Use as directed Dispense: 1 Kit; Refill: [address] [facility] 2024-09-13 12:19:30 Maximus Sheehan is a 68 year old male Patient is scheduled on 10/[address] Fink for an appointment and is needing a referral on file; please advise and assist with request. Thank you! Rosario Menendez 09/13/2024 12:21 PM [facility] Rosario Menendez [facility] 2024-09-12 09:53:08 Form placed in provider folder for review. [facility] Marianela Calderon MA [facility] 2024-09-12 08:24:50 Images from the original note were not included. OGRAPHY TECHNICIAN Cynthia Walker [facility] 2024-09-08 15:35:52 Per last OV note medication was discontinued - 09/07/2024. OGRAPHY TECHNICIAN Jose Ramos RN [facility] 2024-09-08 13:51:44 Maximus Sheehan is a 68 year old male Valerie, nurse with [employer], called to let us know that pt stopped glipizide due to dizziness. Call pt to further discuss. OGRAPHY TECHNICIAN Janie Hardwick [facility] 2024-08-29 09:16:59 Call placed to NAKIA Tong, Notified will follow pt. OGRAPHY TECHNICIAN Jose Ramos RN [facility] 2024-08-29 07:53:[address] [facility] 2024-08-27 10:55:27 Encounter was addressed in additional encounter. Maggy Gross LVN [facility] 2024-08-26 16:45:41 Routing call to provider for review. Jose Ramos RN [facility] 2024-08-26 16:37:03 Alycia with [facility] is wanting to know if Doctor Ema will follow patient for home health. Reymundo Martell [facility] 2024-08-26 14:19:05 Please schedule. Priti Baron RN [facility] 2024-08-26 14:02:54 Called patient, he had surgery with Dr. Doll 08/25/24 and was informed to return to clinic Thursday to have catheter removed. Routing message to [facility] to schedule NV for patient to have voiding trail on Thursday. Nisha Aguilera MA [facility] 2024-08-26 13:51:32 The hospital called stating the patient needs a cath removal NV appointment 08/29/24. Please advise. Letty Clement [facility] 2024-08-26 13:32:57 Problem: Falls, Risk of Goal: Absence of falls Outcome: Adequate for discharge Problem: Venous Thromboembolism, (actual or risk of) Goal: Absence of venous thromboembolism (Risk) Outcome: Adequate for discharge Problem: Skin integrity Impaired (Risk or Actual) Goal: Prevention of new skin breakdown Outcome: Adequate for discharge Problem: Pain Goal: Control of pain at or below patient's documented comfort goal Outcome: Adequate for discharge Goal: Reduction in pain sensation Outcome: Adequate for discharge Problem: Discharge Planning Goal: Adequate for discharge Outcome: Adequate for discharge Goal: Effective communication Outcome: Adequate for discharge Problem: Infection Risk Goal: Absence of infection Outcome: Adequate for discharge Gila Dillon RN [facility] 2024-08-25 22:37:01 Problem: Falls, Risk of Goal: Absence of falls Outcome: Progressing as expected Problem: Venous Thromboembolism, (actual or risk of) Goal: Absence of venous thromboembolism (Risk) Outcome: Progressing as expected Problem: Skin integrity Impaired (Risk or Actual) Goal: Prevention of new skin breakdown Outcome: Progressing as expected Problem: Pain Goal: Control of pain at or below patient's documented comfort goal Outcome: Progressing as expected Goal: Reduction in pain sensation Outcome: Progressing as expected Problem: Discharge Planning Goal: Adequate for discharge Outcome: Progressing as expected Goal: Effective communication Outcome: Progressing as expected Problem: Infection Risk Goal: Absence of infection Outcome: Progressing as expected Angel Luis Little RN [facility] 2024-08-25 17:49:05 Problem: Falls, Risk of Goal: Absence of falls Outcome: Progressing as expected Problem: Venous Thromboembolism, (actual or risk of) Goal: Absence of venous thromboembolism (Risk) Outcome: Progressing as expected Problem: Skin integrity Impaired (Risk or Actual) Goal: Prevention of new skin breakdown Outcome: Progressing as expected Problem: Pain Goal: Control of pain at or below patient's documented comfort goal Outcome: Progressing as expected Goal: Reduction in pain sensation Outcome: Progressing as expected Problem: Discharge Planning Goal: Adequate for discharge Outcome: Progressing as expected Goal: Effective communication Outcome: Progressing as expected Problem: Infection Risk Goal: Absence of infection Outcome: Progressing as expected T Krista Turcios RN [facility] 2024-08-25 10:40:14 Called patient, admitted for IV abx [facility] 2024-08-24 22:14:45 Problem: Falls, Risk of Goal: Absence of falls Outcome: Progressing as expected Problem: Venous Thromboembolism, (actual or risk of) Goal: Absence of venous thromboembolism (Risk) Outcome: Progressing as expected Problem: Skin integrity Impaired (Risk or Actual) Goal: Prevention of new skin breakdown Outcome: Progressing as expected Kelsi Seals RN [facility] 2024-08-24 20:12:45 AdmissionCare Guideline: Urinary Tract Infection (UTI) - OBS, Observation Based on the indications selected for the patient, the bed status of Observation was determined to be MET The following indications were selected as present at the time of evaluation of the patient: - Observation Care Admission Criteria - Observation care is indicated for 1 or more of the following: - Ability to tolerate outpatient treatment regimen uncertain AdmissionCare documentation entered by: Jhony Madden [facility], 28th edition, Copyright ? 2023 [facility] [employer] All Rights Reserved. [id number] [facility] 2024-08-24 16:18:13 Images from the original note were not included. Spoke with patient; he states he saw his pcp regarding this issue and was sent to the ER by his pcp. Pt has is scheduled for surgery with Dr. Doll on 08/25/24. Priti Baron RN [facility] 2024-08-24 08:13:26 Images from the original note were not included. Choice HTA-Discharge Summary report received placed Dr. Lewis folder for review. Cynthia Walker [facility] 2024-08-23 16:45:00 Pt given printed and verbal discharge instructions regarding uti, aden catheter, encouraged hydration. 0 Prescriptions provided. Pt verbalized understanding of instructions, pt awake alert oriented, resp reg unlabored, skin w/d, color appropriate for race, moves all ext well,pt encouraged to follow up with pcp and urology. Advised to seek medical attention for new/prolonged/worsening of symptoms, Symptoms improved. No adverse reaction to meds given in ER noted upon discharge. PIV d'cd, dressing to site, catheter in tact. Awake, alert oriented, resp reg unlabored, skin w/d, pt leaving amb with steady gait, in no apparent distress. Digna Shore RN [facility] 2024-08-23 14:45:09 Images from the original note were not included. Connie Hoyos RN [facility] 2024-08-23 11:03:14 Pt arrived via WC for hematuria, sent by provider. Pt has been self cathing and is scheduled for sx on 08/25 for enlarged prostate. Pt has not self cathed since yesterday morning d/t the blood. Quiana Carranza RN [facility] 2024-08-23 10:47:00 [facility] Emergency Department Note Patient Name: Maximus Sheehan Date of : 1955 68 year old male Treatment Room: Room/bed info not found Primary Care Physician: Marcel Toth Patient Escorted by: Self [9] Mode of Arrival: Personal means [1] EMS Treatment Prior to ED Arrival: SCOUT SNIPER treatment: None Travel and Exposure Screening: Symptoms Does patient have any of these symptoms?: (not recorded) Exposure Screening Has patient had contact with someone with a communicable disease in the last month?: (not recorded) Diseases exposed to:: (not recorded) Is Patient ?: (not recorded) Exposure Date: (not recorded) Chief Complaint: Chief Complaint Patient presents with Hematuria History of Present Illness: Very pleasant gentleman presents for 4d of intermittently hemorrhage and clots from urethra. Pt has decreased PO intake for concern of not wanting to self cath while this is going on. PCP called [facility] to [facility] two days ago. Recent culture shows Pseudomonas UTI. History provided by: Patient Past Medical History/Immunizations: Past Medical History: Diagnosis Date Brain bleed Diabetes mellitus Hypertension Kidney stone Tetanus received in last 5 years: Unknown Childhood immunizations: Up-to-date Allergies: Allergies Allergen Reactions Jardiance [Empagliflozin] Unknown - See comments Morphine Unknown - See comments Past Social History: Tobacco Use Former; Types: Cigarettes Smokeless Tobacco: Never used smokeless tobacco. Alcohol Use Never. Drug Use Not Currently. Past Surgical History: Past Surgical History: Procedure Laterality Date CAROTID ENDARTERECTOMY Right 03/22/2024 Surgeon: Ron Hoover MD; Location: [facility] CORONARY ARTERY BYPASS GRAFT CRANIOTOMY Review of Systems: Review of Systems Constitutional: Negative for activity change, appetite change, chills, diaphoresis and fatigue. HENT: Negative for congestion, ear discharge, ear pain, facial swelling, mouth sores, sore throat, trouble swallowing and voice change. Eyes: Negative for photophobia, discharge, redness, itching and visual disturbance. Respiratory: Negative for apnea, cough, choking, chest tightness, shortness of breath, wheezing and stridor. Breasts: Negative for discharge and mass. Cardiovascular: Negative for chest pain, palpitations and leg swelling. Gastrointestinal: Negative for abdominal distention, constipation, diarrhea, nausea and vomiting. Genitourinary: Positive for dysuria, hematuria and decreased urine volume. Negative for bladder incontinence, frequency, flank pain and difficulty urinating. Musculoskeletal: Negative for arthralgias, back pain, gait problem, joint swelling, myalgias, neck pain and neck stiffness. Skin: Negative for color change, pallor, rash and wound. Neurological: Negative for dizziness, syncope, facial asymmetry, speech difficulty, weakness, light-headedness, numbness and headaches. Psychiatric/Behavioral: Negative for agitation, behavioral problems, confusion and self-injury. Hematological: Negative for adenopathy, cold intolerance and heat intolerance. Does not bruise/bleed easily. Endocrine: Negative for cold intolerance, heat intolerance, polydipsia and polyphagia. Physical Exam: ED Triage Vitals [08/23/24 1104] Weight 71.1 kg (156 lb 11.2 oz) Actual or estimated Estimated by patient/family report Height 1.829 m (6') BP (!) 141/79 Pulse 99 Resp 20 Temp 36.8 ?C (98.2 ?F) Temp source Oral SpO2 100 % Measured on Room air Physical Exam Constitutional: General: He is not in acute distress. Appearance: He is well-developed. He is not ill-appearing, toxic-appearing or diaphoretic. HENT: Head: Normocephalic and atraumatic. Right Ear: External ear normal. Left Ear: External ear normal. Eyes: General: No scleral icterus. Right eye: No discharge. Left eye: No discharge. Neck: Thyroid: No thyromegaly. Trachea: No tracheal deviation. Cardiovascular: Rate and Rhythm: Normal rate and regular rhythm. Pulmonary: Effort: Pulmonary effort is normal. No respiratory distress. Breath sounds: Normal breath sounds. No stridor. No wheezing. Abdominal: General: There is no distension. Palpations: Abdomen is soft. Tenderness: There is no abdominal tenderness. Musculoskeletal: General: No tenderness or deformity. Normal range of motion. Cervical back: Normal range of motion and neck supple. Skin: General: Skin is warm and dry. Coloration: Skin is not pale. Findings: No erythema or rash. Neurological: Mental Status: He is alert and oriented to person, place, and time. Motor: No abnormal muscle tone. Psychiatric: Behavior: Behavior normal. Thought Content: Thought content normal. Judgment: Judgment normal. Radiology: No orders to display Lab Results: Lab Results CBC WITH DIFF - Abnormal Result Value Ref Range WBC 14.06 (*) 4.20 - 10.70 10*3/?L RBC 5.00 4.26 - 5.52 10*6/?L HGB 15.3 12.2 - 16.4 g/dL HCT 46.0 38.4 - 49.3 % MCV 92.0 81.7 - 95.6 fL MCH 30.6 26.1 - 32.7 pg MCHC 33.3 31.2 - 35.0 g/dL RDW-SD 42.3 38.5 - 51.6 fL RDW-CV 12.4 12.1 - 15.4 % PLT 301 150 - 328 10*3/?L MPV 9.7 (*) 9.8 - 13.0 fL NRBC/100 WBC 0.0 0.0 - 10.0 /100 WBCs NRBC x10 3 <0.01 10*3/?L GRAN MAT (NEUT) % 73.1 % IMM GRAN % 0.40 % LYMPH % 17.4 % MONO % 8.5 % EOS % 0.1 % BASO % 0.5 % GRAN MAT x10 3 (ANC) 10.29 (*) 1.99 - 6.95 10*3/uL IMM GRAN x10 3 0.05 0.00 - 0.06 10*3/uL LYMPH x10 3 2.44 1.09 - 3.23 10*3/uL MONO x10 3 1.19 (*) 0.36 - 1.02 10*3/uL EOS x10 3 <0.03 (*) 0.06 - 0.53 10*3/uL BASO x10 3 0.07 0.01 - 0.09 10*3/uL COMP. METABOLIC PANEL (83969) - Abnormal NA 134 (*) 135 - 145 mmol/L K 4.5 3.5 - 5.0 mmol/L CL 100 98 - 108 mmol/L CO2 TOTAL 23 23 - 31 mmol/L AGAP 11 2 - 16 BUN 17 7 - 23 mg/dL GLUCOSE 253 (*) 70 - 110 mg/dL CREATININE 0.61 0.60 - 1.25 mg/dL TOTAL BILI 1.0 0.1 - 1.1 mg/dL CALCIUM 9.4 8.6 - 10.6 mg/dL T PROTEIN 7.4 6.3 - 8.2 g/dL ALBUMIN 4.3 3.5 - 5.0 g/dL ALK PHOS 102 34 - 122 U/L ALTv 15 5 - 50 U/L AST(SGOT) 16 13 - 40 U/L eGFR 105.9 mL/min/1.73m2 URINALYSIS - Abnormal APPEARANCE Turbid (*) Clear COLOR Nicki (*) Yellow PH 5.0 4.8 - 8.0 SP GRAVITY 1.026 1.003 - 1.030 GLU U QUAL 50 mg/dL (*) Normal BLOOD 3+ (*) Negative KETONES 80 mg/dL (*) Negative PROTEIN 500 mg/dL (*) Negative UROBILIN 2.0 mg/dL (*) Normal BILIRUBIN Negative Negative NITRITE Negative Negative LEUK FLYNN 250/uL (*) Negative RBC/HPF >182 (*) 0 - 3 HPF WBC/HPF >182 (*) 0 - 5 HPF BACTERIA Moderate (*) Negative MUCOUS Marked (*) Negative LPF TRANS EPI 1 <=1 HPF PRASANTH EPITH 1 <=1 HPF URINE CULTURE EKG: If EKG completed, see Procedure Note. Orders and Treatments: Orders Placed This Encounter Procedures Cbc with Diff Comp. Metabolic Panel (47249) Urinalysis Urine Culture Orders Placed This Encounter Medications NaCl 0.9% (NS) bolus infusion 500 mL ceFEPIme (MAXIPIME) 2,000 mg in NaCl 0.9% (NS) 100 mL MINI-BAG First Provider Eval: ED Events Date/Time Event User Comments 08/23/24 1053 Medical Screening Begins SANDRO RAMIREZ MD -- 08/23/24 1053 First Provider Evaluation SANDRO RAMIREZ MD -- ED COURSE Diagnosis/Impression as of 08/23/24 1605 Hematuria, unspecified type Hemorrhagic cystitis Procedures: Procedures MDM: Medical Decision Making DDx incl urinary retention, hemorrhagic cystitis, pyelo, MDR uti, et al Pt able to void spontaneously w/ only about 50ml residual, but pt insists on indwelling cath to avoid repeated self-cath's, saying he won't eat or drink when he goes home unless he has one. Pt w/ recent UC showing Pseudomonas; pt has Rx waiting at [facility] for Cipro which UTI is susceptible to. D/w pt results, rec plan of care and f/u, and red flags for return. Amount and/or Complexity of Data Reviewed Labs: ordered. Risk Prescription drug management. Flowsheet Documentation: Disposition/Condition: ED Disposition ED Disposition Discharge Condition Stable Comment -- Discharge Medications: Patient's Medications START taking these medications No medications on file CONTINUE taking these medications which have NOT CHANGED ASPIRIN 81 MG CHEWABLE TABLET Take 1 tablet by mouth in the morning. BD ULTRAFINE III MINI PEN 31 GAUGE X 3/16" NDLE USE DIRECTED 4 TIMES A DAY BLOOD-GLUCOSE SENSOR (FREESTYLE JOSE 3 SENSOR) YUMIKO Use as directed CHOLECALCIFEROL, VITD3,/VIT K2 (VITAMIN D3-VITAMIN K2 ORAL) Take by mouth. CIPROFLOXACIN HCL 500 MG TABLET Take 1 tablet by mouth every 12 (twelve) hours for 5 days. DOCOSAHEXAENOIC ACID/EPA (FISH OIL ORAL) Take by mouth. DULAGLUTIDE (TRULICITY) 1.5 MG/0.5 ML PNIJ INJECT 1 PEN SUBCUTANEOUSLY WEEKLY FLASH GLUCOSE SENSOR (FREESTYLE JOSE 2 SENSOR) KIT 1 Kit every 2 (two) weeks. INSULIN ASPART U-100 (NOVOLOG FLEXPEN U-100 INSULIN) 100 UNIT/ML (3 ML) INJECTION inject 10 Units under the skin in the morning and 10 Units at noon and 10 Units in the evening. inject before meals. Inject 5 to 10 units three times a day with meals INSULIN GLARGINE (LANTUS SOLOSTAR U-100 INSULIN) 100 UNIT/ML (3 ML) INJECTION inject 24 Units under the skin every morning. Taking 28-30 U daily Indications: Patient recently has been taking 20 units qdaily MAGNESIUM OXIDE 500 MG CAP Take by mouth. METFORMIN 500 MG TABLET TAKE 1 TABLET BY MOUTH IN THE MORNING AND IN THE EVENING WITH MEALS METOPROLOL SUCCINATE XL 25 MG 24 HR TABLET Take 1 tablet by mouth in the morning. ROSUVASTATIN (CRESTOR) 5 MG TABLET Take 1 tablet by mouth in the morning. TRIAMCINOLONE ACETONIDE 0.1 % CREAM Apply to area(s) 2 (two) times daily. UBIDECARENONE (CO Q-10 ORAL) Take by mouth. START taking Modified Medications as Prescribed No medications on file STOP taking these medications No medications on file Follow-up: Contact information for follow-up [facility] Urology [address] [place] [address], [address] [id number] Instructions: As needed Electronically signed by: Sandro Ramirez MD 08/23/24 [id number] T [facility] 2024-08-23 10:40:32 Images from the original note were not included. Sarah Guerra RN [facility] 2024-08-22 07:31:47 Maximus Sheehan is a 68 year old male Pt is requesting a call regarding difficulty urinating, now he he also experiencing blood in urine since earlier this morning. Thanks Raegan Israel [facility] 2024-08-21 10:38:57 CT: 1. Small calcifications in both kidneys could be nonobstructing stones, largest calcification in the right kidney of 5 x 2 mm size is unchanged when compared with previous study of 07/01/2024. 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 3. Enlarged prostate and thickened bladder sims. 4. Constipation with large fecal load. Bacterial colonization 2/2 to [facility]IC for chromic urine retention Plan Oral cipro for 5 days Zosyn on the day of procedure and 5 days of levo post op Daily laxatives [facility] 2024-08-18 13:15:00 Summary: Only urine Images from the original note were not included. Patient has been identified by and name and was provided with cup, antiseptic towelette, and clean catch instructions. 1 urine specimen(s) sent. 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 Priti Baron RN [facility] 2024-08-17 09:23:11 Mr. Sheehan is scheduled for a HoLEP with Dr. Doll on 08/25/24. During a medication instruction call today, he said he did not have enough catheters to self cath until surgery date. Said he only had four left. Advised patient to contact office and assured him I would send message. He is coming in to hospital lab for UC tomorrow but relies on public transportation. Could office please call him back to make arrangement to provide more straight caths? [facility] 2024-08-16 08:52:52 Order for repeat urine culture T [facility] 2024-08-15 17:11:37 Images from the original note were not included. Spoke with patient, states he went to the ER at [facility] today where he received an IV antibiotic and a rx for Keflex 500mg QID x7 days. He states that nightly he straight caths himself due to retention. He is having prostate surgery 08/25/24. PSS will call to schedule appointment as directed. ANT Priti Baron RN [facility] 2024-08-15 17:09:04 Please see other encounter for this patient. ANT Priit Baron RN [facility] 2024-08-15 16:26:21 Pt given printed and verbal discharge instructions regarding urinary retension, encouraged hydration, Prescriptions provided Discussed antibiotic therapy and to take until all completed unless adverse reaction occurs - if occurs, discontinue medication and follow up with pcp/seek medical attention Pt verbalized understanding of instructions, pt awake alert oriented, resp reg unlabored, skin w/d, color appropriate for race, moves all ext well,pt encouraged to follow up with pcp and or urology Advised to seek medical attention for new/prolonged/worsening of symptoms. No adverse reaction to meds given in ER noted upon discharge PIV d'cd, dressing to site, catheter in tact. Awake, alert oriented, resp reg unlabored, skin w/d, pt leaving amb with steady gait, in no apparent distress, Yomaira Shipley RN [facility] 2024-08-15 16:23:47 Patient would like to clarify if he can continue using catheters even though he is experiencing infection with antibiotics. Ana Maria Andrew [facility] 2024-08-15 13:41:57 Bladder scanner showed 76mls in bladder. [facility] 2024-08-15 12:54:58 Pt arrives to ED ambulatory w/walker, c/o urinary urgency & hesitancy & now seeing blood today. He states he is supposed to have sx on 08/25 for enlarged prostate. Marianela Walker RN [facility] 2024-08-15 10:46:00 Regardinyr/male - urinating blood ----- Message from Patient Mixing Machine Tender Cork Gasket sent at 08/15/2024 10:45 AM CDT ----- Maximus Sheehan is a 68 year old male 68yr/male States he started urinating blood about an hour ago and has been urinating every 10 to 15 minutes since then and it is very painful. Latosha Roberts RN [facility] 2024-08-15 10:46:00 Adult Triage Assessment Last Clinic Visit: 08/11/2024-Vascular surgery, follow up for Carotid stenosis. Primary Symptom: Urinating blood Onset / Duration: Began today, approximately 1 hr ago Location / Description: Thick wine colored blood, flat long possible blood clot passed. Pain / Severity: 08/04 described as a pressure/pain. Associated Symptoms: Uses a catheter nightly for about 2 weeks as prescribed. Feels urge to urinate every 1-2 minutes. Decreased flow with just dripping every 2 minutes. Fever / Method: Denies Hydration: Drinks 4-32 oz cups of water daily. Treatment so far: Blood thinner, 81mg of Aspirin taken daily. Effect on ADL's: Significant LMP: n/a Pre-existing condition / Immunocompromised: Prostate surgery 08/25/2024, hole in heart, wearing holter monitor. Reason for Disposition Passing pure blood or large blood clots (i.e., size > a dime) (Exception: Andre or small strands.) Protocols used: Urine - Blood In-ADULT- Patient calls stating that he is urinating pure wine colored blood. RN reviews Urine - Blood In-Adult Protocol and advises patient go to the ED for further evaluation. Patient verbalizes understanding and states he is going to try to find a ride to the [facility] but may need to call an ambulance that will take him to [place] but either way he will go to the ED. T [facility] 2024-08-15 10:46:00 Routing to provider to advise if he would like to have patient come in for visit. Linda Valles RN Linda Ramos RN [facility] 2024-08-15 10:46:00 Offer RTC NV for PVR and Ucx If retention , update me Thanks T [facility] 2024-08-15 10:46:00 Patient notified of results/recommendations, understanding was verbalized via teach back. Patient scheduled NV today 2:30 PM. Patient will call to reschedule if he is unable to find a ride. Maureen Mazariegos RN [facility] 2024-08-11 16:45:[address] Lewis 08/23 10am Cynthia Walker [facility] 2024-08-11 15:17:45 Urine culture sent to lab at this time. Patient to continue ASA per cardiology recommendations. Patient verbalized understanding. Maureen Mazariegos RN [facility] 2024-08-11 14:55:40 Addended by: LYNN DOLL on: 08/11/2024 02:55 PM Modules accepted: Orders [facility] 2024-08-11 14:48:[address] showed no obvious cancer changes in upper tracts, stable multiple I-IV Atherosclerosis changes Enlarged prostate as per cysto findings I counseled patient about options for treating BPH and natural history if not treated ( bladder atony, voiding dysfunction, renal failure, stones recurrent infection, and need for chcf catheter) CIC, surgical options: TURP, ThuLVP to alleviate the obstruction and attempt improve LUTS and avoid risk of complications from chcf HERRON. Possible adverse events recognized with TURP and ThuLVP include and not limited to ( pain, bleeding, infection, injury to surrounding structures, erectile dysfunction, urinary incontinence, retrograde ejaculation, stricture formation, inability to void/retention, prostatic regrowth, need for additional procedures). Robotic Laparoscopic Assisted Simple Prostatectomy for large glands ThuLVP has comparable outcomes when compared with the gold standard TURP, in addition to less risk of bleeding, catheterization time and need for hospitalization. HoLEP : risk of complications mainly damage to bladder ( perforation, , need to reconstruct). pain, bleeding, infection, injury to surrounding structures, need for prolonged catheter , failure to remove all prostate, need for additional procedures Patient may experience urgency, transient SEBASTIAN/ UUI or DAVE up to 12 weeks , if persistent may need further medical or surgical therapy ( rare) Patient opted for HoLEP Plan Opted for HoLEP 08/25/2024 CT abd renal mass protocol in 6 months to assess kidney cysts Follow up with PCP for constipation Follow up with vascular for atherosclerosis [facility] 2024-08-11 14:15:00 Started on oral abx Needs RTC Thursday08/18/2024 to repeat Ucx URO-UROLOGY STAFF [facility] 2024-08-11 14:13:08 Patient would like results of CT scan. Will route to provider for review. Maureen Mazariegos RN [facility] 2024-08-09 09:48:01 Thank you! I have attached this to the appointment. [facility] 2024-08-08 21:20:18 1. PFO (patent foramen ovale) - Consult/Referral Cardiology 2. Coronary artery disease without angina pectoris, unspecified vessel or lesion type, unspecified whether [place] or transplanted heart - Consult/Referral Cardiology [facility] 2024-08-08 14:17:03 Patient is coming in to see Dr Davison on 08/15/24 for Interventional Cardiology, due to insurance pt is needing a referral. Please assist, thank you. [facility] 2024-08-08 08:43:45 Images from the original note were not included. Lynne Roach [facility] 2024-08-05 11:54:13 Spoke with patient and answered all questions. Maureen Mazariegos RN [facility] 2024-08-04 14:42:28 Forms signed and faxed, confirmation received Jazmin Jones MA 08/04/2024 2:43 PM [facility] 2024-08-03 16:17:21 Form placed in providers folder for review. Jose Ramos RN [facility] 2024-08-03 15:45:18 Images from the original note were not included. Forms placed in nurse folder. Lynne Roach [facility] 2024-08-03 10:37:55 UROLOGY POST-PROCEDURE CALL Procedure: Cysto Physician: Angella Are you experiencing any nausea/vomiting? no Are you having any difficulty voiding? No, just some blood in urine Are you experiencing an increase in your temperature? no Are you having any pain? What is your pain level? no 0 Did you receive post-op education? no Did you understand the instructions given to you? yes Were you given the number to call for questions or concerns regarding your procedure? no Are you satisfied with the care you received? yes Post procedure instructions reviewed: Cystoscopy Teachback completed by patient: Knowledge of phone number to call: yes Knowledge of post-procedure instructions: yes My chart message sent with post-op instructions. Sarai Obrien RN [facility] 2024-08-02 16:24:08 Maximus Sheehan is a 68 year old male Patient calling wanting to know if a catheter needs to be done tonight or tomorrow morning. Patient is still sensitive from this morning. Please advise patient. Keely Aaron [facility] 2024-08-02 13:39:52 Called patient and questions answered CAROLYN-VASCULAR SURGERY STAFF [facility] 2024-08-02 13:36:39 Patient notified of results/recommendations, understanding was verbalized via teach back. Maureen Mazariegos RN [facility] 2024-08-02 11:05:54 Can continue aspirin [facility] 2024-08-02 09:38:25 Moderate cardiac risk. Okay to hold aspirin if absolutely necessary. [facility] 2024-08-02 09:27:27 The following patient is scheduled for HoLEP with Lynn Doll at [facility] Surgery Department. The procedure is currently scheduled on TBD and requires Cardiac clearance prior to the procedure. Please submit the following: Note indicating Cardiac clearance risk level 2. Most recent office note date 3. Recent tests (if not accessible in [facility]): Labs, EKG, Echo, etc 4. Information on implantable devices (pacemaker, AICD, last interrogation, device type with response to magnet and most recent EP report) 5. Perioperative recommendations / 6. Optimization for surgery, any needs for cardiac testing prior to having surgery 7. Patient has reported taking the following anticoagulation:ASA Please provide instructions for holding prior to procedure. Thank you, Maureen Mazariegos RN Maureen Mazariegos RN [facility] 2024-07-23 06:27:46 Access Center: [facility] Open Encounter Maintenance Chart Review: Patient was seen in Neurology Clinic on 07/07/2024. Nurse Note: RN closing encounter in [facility] r/t clinical action items completed. Latosha Roberts RN [facility] Access Center Triage Nurse Latosha Roberts RN [facility] 2024-07-22 10:00:00 Images from the original note were not included. Pt here for [place] orders. Patient has been identified by and name and was provided with cup, antiseptic towelette, and clean catch instructions. 2 urine specimen(s) sent. Unpreserved 1 Urine Culture 1 Aptima tube Other urine [facility] 2024-07-14 16:10:[address] Hoover. Kanika Moreland RN [facility] 2024-07-12 16:57:24 TRANSITIONAL CARE MANAGEMENT ASSESSMENT 07/12/2024 Maximus Sheehan [id number] Maximus Sheehan is a 68 year old /White male was admitted on 07/07/24 to [facility] SURG 2 N. He was discharged on 07/10/24 with discharge disposition of HR- Routine Discharge. 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%, ICM) PFO w R to L shunt Linked Episodes Type: Episode: Status: Noted: Resolved: Last update: Updated by: TRANSITION OF CARE TCM Active 07/10/2024 07/12/2024 4:54 PM Jayashree Josue RN Comments: TCM [id number] outreach documentation: Discharge Assessment Chart Assessed: 07/12/24 TCM Outreach Completed: 07/12/24 Do you have a few minutes to speak with me about how you are doing at home?: Yes (pt reports he is under a lot of stress due different dxs) Discharge Instructions Do you understand your at-home instructions?: Yes Medications Have you filled your prescriptions and do you have them in your home? : Yes Do you know how to take your medications?: Yes Supplies Did you receive applicable home medical supplies/equipment?: N/A Follow Up Appointment Has a follow up appointment been scheduled?: Yes Do you have any questions about your follow up appointments?: No Home Health Assistance Has the home health nurse contacted you since you've been home?: Yes [facility] [id number] [place] [address] F: [phone] Survey - Recognition Is there anything you would like to share about your recent hospitalization, or anyone you would like to recognize?: No Do you have any suggestions for improvement?: No Do you have any other questions or concerns at this time?: No Future Appointments: Future Appointments Provider Department Dept Phone 07/18/2024 2:40 PM Allyson Fink MD [facility] Cardiology, [facility] [phone] 07/22/2024 10:00 AM 2, Adc Lab [facility] Clinical Laboratory, [facility] [phone] 08/02/2024 8:30 AM Lynn Doll MD [facility] [phone] 08/15/2024 3:00 PM Roma Davison MD [facility] Cardiology, [facility] [phone] 08/30/2024 1:20 PM Marcel Toth MD [facility] [phone] 10/04/2024 1:00 PM Allyson Fink MD [facility] [phone] 12/29/2024 1:00 PM Allyson Fink MD [facility] [phone] 03/30/2025 1:45 PM Ron Hoover MD [facility] [phone] Jayashree Josue RN [facility] 2024-07-12 12:08:23 Care Transitions Nurse CM made f/u call to patient post-discharge. No answer, call went to voicemail. CM left discreet message with CM's call back information. CM will try again at a later time. ANETTE Swift, RN, CCRN Automatic Drill Operator, Transitions of Care [email or web address] 2024-07-09 22:40:58 Problem: Falls, Risk of Goal: Absence of falls Outcome: Progressing as expected Problem: Discharge Planning Goal: Able to perform ADL Outcome: Progressing as expected Goal: Knowledge of medication management Outcome: Progressing as expected Goal: Knowledge of need for follow-up care Outcome: Progressing as expected Goal: Knowledge of personal stroke risk factors Outcome: Progressing as expected Goal: Knowledge of stroke warning signs Outcome: Progressing as expected Problem: Mobility - Impaired Goal: Able to achieve maximum mobility level Outcome: Progressing as expected Goal: Able to use ambulatory assistive device appropriately Outcome: Progressing as expected Keeley Carnes RN [facility] 2024-07-09 12:14:49 Problem: Falls, Risk of Goal: Absence of falls Outcome: Progressing as expected Problem: Discharge Planning Goal: Able to perform ADL Outcome: Progressing as expected Goal: Knowledge of medication management Outcome: Progressing as expected Goal: Knowledge of need for follow-up care Outcome: Progressing as expected Goal: Knowledge of personal stroke risk factors Outcome: Progressing as expected Goal: Knowledge of stroke warning signs Outcome: Progressing as expected Problem: Mobility - Impaired Goal: Able to achieve maximum mobility level Outcome: Progressing as expected Goal: Able to use ambulatory assistive device appropriately Outcome: Progressing as expected Kimberly Lebron RN [facility] 2024-07-09 04:06:50 Problem: Falls, Risk of Goal: Absence of falls Outcome: Progressing as expected Problem: Discharge Planning Goal: Able to perform ADL Outcome: Progressing as expected Goal: Knowledge of medication management Outcome: Progressing as expected Goal: Knowledge of need for follow-up care Outcome: Progressing as expected Goal: Knowledge of personal stroke risk factors Outcome: Progressing as expected Goal: Knowledge of stroke warning signs Outcome: Progressing as expected Problem: Mobility - Impaired Goal: Able to achieve maximum mobility level Outcome: Progressing as expected Goal: Able to use ambulatory assistive device appropriately Outcome: Progressing as expected [facility] 2024-07-08 17:30:15 Problem: Falls, Risk of Goal: Absence of falls Outcome: Progressing as expected Problem: Discharge Planning Goal: Able to perform ADL Outcome: Progressing as expected Goal: Knowledge of medication management Outcome: Progressing as expected Goal: Knowledge of need for follow-up care Outcome: Progressing as expected Goal: Knowledge of personal stroke risk factors Outcome: Progressing as expected Goal: Knowledge of stroke warning signs Outcome: Progressing as expected Problem: Mobility - Impaired Goal: Able to achieve maximum mobility level Outcome: Progressing as expected Goal: Able to use ambulatory assistive device appropriately Outcome: Progressing as expected Jane Lua RN [facility] 2024-07-08 13:25:56 Images from the original note were not included. [facility] Clinical Pharmacist Consult Consulting Service: Pharmacy Medication Reconciliation Patient: Maximus Sheehan ([id number]) is a 68 year old male currently admitted for Numbness and tingling of right arm. Admit Date/Time: 07/07/2024 3:31 PM Discharge Date: No discharge date for patient encounter. Allergies/ADRs: Allergies as of 07/07/2024 - Reviewed 07/07/2024 Allergen Reaction Noted Jardiance [empagliflozin] Unknown - See comments 11/27/2023 Morphine Unknown - See comments 11/27/2023 The table below represents a medication reconciliation report. Inpatient orders have not been modified. Please review the inpatient orders based on the recommendations to make any necessary changes. Sources used in interview: Patient Quality of History Provided: High quality RED TEXT INDICATES NOTABLE CHANGES SCOUT SNIPER Meds List Medication Sig Recommend Justification Comments BD ULTRAFINE III MINI PEN 31 gauge x 3/16" Ndle USE DIRECTED 4 TIMES A DAY Continue Blood-Glucose Sensor (FREESTYLE JOSE 3 SENSOR) Yumiko Use as directed Continue cholecalciferol, vitD3,/vit K2 (VITAMIN D3-VITAMIN K2 ORAL) Take by mouth. Hold Nonformulary docosahexaenoic acid/epa (FISH OIL ORAL) Take by mouth. Continue dulaglutide (TRULICITY) 1.5 mg/0.5 mL PnIj INJECT 1 PEN SUBCUTANEOUSLY WEEKLY Continue flash glucose sensor (FREESTYLE JOSE 2 SENSOR) Kit 1 Kit every 2 (two) weeks. Continue glipiZIDE XL 5 mg 24 hr tablet Take 1 tablet by mouth daily with breakfast. (Patient not taking: Reported on 07/08/2024) Discontinue insulin aspart U-100 (NOVOLOG FLEXPEN U-100 INSULIN) 100 unit/mL (3 mL) injection inject 10 Units under the skin in the morning and 10 Units at noon and 10 Units in the evening. inject before meals. Inject 5 to 10 units three times a day with meals (Patient taking differently: inject 10 Units under the skin in the morning and 10 Units at noon and 10 Units in the evening. inject before meals. Inject 5 to 10 units three times a day with meals) Hold Non-formulary Currently on sliding scale lispro Insulin Glargine (LANTUS SOLOSTAR U-100 INSULIN) 100 unit/mL (3 mL) injection Taking 28-30 U daily Indications: Patient recently has been taking 20 units qdaily Modify Incorrect dose Pt takes 20 u qd Magnesium Oxide 500 mg Cap Take by mouth. Continue METFORMIN 500 mg tablet TAKE 1 TABLET BY MOUTH IN THE MORNING AND IN THE EVENING WITH MEALS Continue metoprolol succinate XL 25 mg 24 hr tablet Take 1 tablet by mouth in the morning. Continue pioglitazone (ACTOS) 30 mg tablet Take 1 tablet by mouth in the morning. Continue rosuvastatin (CRESTOR) 5 mg tablet Take 1 tablet by mouth in the morning. Continue triamcinolone acetonide 0.1 % cream Apply to area(s) 2 (two) times daily. Continue ubidecarenone (CO Q-10 ORAL) Take by mouth. Hold Non-formulary Last reviewed on 07/08/2024 1:18 PM by Lynsey Macias Outpatient Pharmacy Contact Information: [facility]/pharmacy #[id number] - [place], [place] - [facility] [address] [facility] - [address] [place] [address] Is the patient interested in [id number]? Did not ask Contact outreach worker services? No outreach worker needed. Lynsey Macias 1:19 PM, 07/08/2024 [facility] Department of Pharmacy - [facility] Phone: [facility]: [phone] Lynsey Macias [facility] 2024-07-08 08:49:30 Images from the original note were not included. Peer to Peer received from [employer] forms placed in provider basket. Lynnejudah Christiansen [facility] 2024-07-08 06:07:15 Problem: Falls, Risk of Goal: Absence of falls Outcome: Progressing as expected Problem: Discharge Planning Goal: Able to perform ADL Outcome: Progressing as expected Goal: Knowledge of medication management Outcome: Progressing as expected Goal: Knowledge of need for follow-up care Outcome: Progressing as expected Goal: Knowledge of personal stroke risk factors Outcome: Progressing as expected Goal: Knowledge of stroke warning signs Outcome: Progressing as expected Problem: Mobility - Impaired Goal: Able to achieve maximum mobility level Outcome: Progressing as expected Goal: Able to use ambulatory assistive device appropriately Outcome: Progressing as expected [facility] 2024-07-07 19:14:18 Called 2N to give report. KERRY Walden confirms that she has rcv'd the report and has no questions and is ready to rcv this pt. Macie Whitman RN [facility] 2024-07-07 19:01:15 Report sent via fax and tube by KERRY Malik [facility] 2024-07-07 18:49:28 Report attempted. Helena Soria RN [facility] 2024-07-07 18:46:56 Maximus Sheehan is a 68 year old male presenting to the ED with c/o right sided weakness and numbness that has been present for the last few months. Endorses dizziness for hte last few weeks. Denies CP/SOB/N/V/D. AOX4, NAD. VSS Past Medical History: Diagnosis Date Brain bleed Diabetes mellitus Hypertension Kidney stone [facility] 2024-07-07 15:25:58 Maximus Sheehan is a 68 year old male presenting to the ED today for: R side weakness and numbness that's been going on for months Pt reports dizziness has been going on for a couple weeks. Pt was at an appointment with his [employer] and was told to come to the ER for further evaluation and possible MRI. Pt denies any CP or SOB at this time, Pt denies any N/V/D EKG done in triage. Pt placed in ED lobby due to no ED bed availability at this time Chief Complaint Patient presents with Dizziness - Past Medical History: Diagnosis Date Brain bleed Diabetes mellitus Hypertension Kidney stone Keyonna Max RN [facility] 2024-07-07 15:11:00 [facility] Emergency Department Note Patient Name: Maximus Sheehan Date of : 1955 68 year old male Treatment Room: [place] [address] Primary Care Physician: Marcel Toth Patient Escorted by: Self [9] Mode of Arrival: Personal means [1] EMS Treatment Prior to ED Arrival: SCOUT SNIPER treatment: None Travel and Exposure Screening: Symptoms Does patient have any of these symptoms?: (not recorded) Exposure Screening Has patient had contact with someone with a communicable disease in the last month?: (not recorded) Diseases exposed to:: (not recorded) Is Patient ?: (not recorded) Exposure Date: (not recorded) Chief Complaint: Chief Complaint Patient presents with Dizziness History of Present Illness: This is a 68-year-old male, history of remote brain bleed after a fall with some mild left-sided deficits, he has had worsening dizziness and right arm numbness the past 3 to 4 weeks, worsened over the past 2 to 3 days, he was going to follow-up with neurology clinic and they were concerned for ability to obtain outpatient workup, so they recommended admission for neurovascular imaging and MRI, he had no new falls, no new medications it seems like he gets dizzy later in the day that seems consistent, does not come and go, not markedly worse with change in position, no known onset for this, no recent illnesses, no vomiting, Past Medical History/Immunizations: Past Medical History: Diagnosis Date Brain bleed Diabetes mellitus Hypertension Kidney stone Tetanus received in last 5 years: Unknown Childhood immunizations: Up-to-date Allergies: Allergies Allergen Reactions Jardiance [Empagliflozin] Unknown - See comments Morphine Unknown - See comments Past Social History: Tobacco Use Former; Types: Cigarettes Smokeless Tobacco: Never used smokeless tobacco. Tobacco Cessation: Counseling given: No Alcohol Use Never. Drug Use Not Currently. Past Surgical History: Past Surgical History: Procedure Laterality Date CAROTID ENDARTERECTOMY Right 03/22/2024 Surgeon: Ron Hoover MD; [facility]: [facility] CORONARY ARTERY BYPASS GRAFT CRANIOTOMY Review of Systems: Review of Systems All other systems reviewed and are negative. Physical Exam: ED Triage Vitals Weight 07/07/24 1529 71.7 kg (158 lb) Actual or estimated -- Height 07/07/24 1529 1.829 m (6') BP 07/07/24 1527 138/73 Pulse 07/07/24 1527 75 Resp 07/07/24 1527 17 Temp 07/07/24 1527 36.6 ?C (97.8 ?F) Temp src -- SpO2 07/07/24 1527 98 % Measured on 07/07/24 1841 Room air Physical Exam Vitals reviewed. Constitutional: Appearance: Normal appearance. HENT: Head: Normocephalic and atraumatic. Cardiovascular: Rate and Rhythm: Normal rate. Pulmonary: Effort: No respiratory distress. Breath sounds: No wheezing or rales. Abdominal: General: There is no distension. Tenderness: There is no abdominal tenderness. Musculoskeletal: Cervical back: Normal range of motion and neck supple. Skin: General: Skin is warm and dry. Capillary Refill: Capillary refill takes less than 2 seconds. Neurological: Mental Status: He is alert. Mental status is at baseline. Sensory: Sensory deficit present. Coordination: Coordination normal. Comments: GCS 15 Ambulates at baseline with assistance from walker, no upper extremity drift, slight decreased sensation R forearm, intact sensation BL LE Radiology: CT HEAD WO CONTRAST Final Result EXAM: CT HEAD WO CONTRAST HISTORY: 68 years-old Male who presents for right-sided weakness and numbness for months. TECHNIQUE: Axial CT of the head was performed and reconstructed at 5 mm intervals. Coronal and sagittal reformatted images were generated. COMPARISON: CT head 03/03/2024 FINDINGS: Postsurgical changes of left frontoparietal craniotomy. The ventricles and cerebral sulci are normal in caliber and configuration. No hydrocephalus, midline shift or pathological extra-axial fluid collection is present. The basal cisterns are unremarkable. No acute intracranial hemorrhage or significant mass effect is visualized. Right parietal volume loss is unchanged. A 5 mm left basal ganglia hypodensity is unchanged in likely a prominent perivascular space. Periventricular and deep white matter hypodensities are nonspecific but can be seen with chronic small vessel ischemic changes. The menon-white matter differentiation is preserved. The mastoid air cells and paranasal air sinuses are clear. The calvarium and central skull base are unremarkable. IMPRESSION Postsurgical changes of left frontoparietal craniotomy. No acute intracranial abnormality. Preliminary Report Dictated by Resident: Keena Fabian I, Makenna Mcdaniel MD., have reviewed this study and agree with the above report. CT ANGIOGRAM HEAD Preliminary Result CT ANGIOGRAM NECK, CT ANGIOGRAM HEAD PROVIDED INDICATION: 68 years-old Male; right-sided weakness and numbness.. COMPARISON: CT angiogram head and neck dated 06/04/2024 TECHNIQUE: CT angiography of the head and neck was performed after the administration of IV contrast with MIPS, coronal and sagittal reconstructions. Vascular measurements of stenosis were made according to the NASCET criteria. FINDINGS: CTA NECK: Classic three vessel branching anatomy of the aortic arch. There are atherosclerotic plaques of the aortic arch result in no significant luminal narrowing or arch vessel origin stenosis. The innominate and bilateral subclavian arteries are patent. Atherosclerotic plaques are seen in the bilateral carotid bulbs, resulting in no more than mild stenosis. The bilateral common carotid and cervical internal carotid are patent. The right vertebral artery is patent throughout it's course up to the vertibrobasilar junction. Calcified atherosclerotic plaque is seen in the left vertebral artery origin, resulting in moderate stenosis. Scattered atherosclerotic plaques and multifocal stenotic segments are also seen throughout the left vertebral artery course. No evidence of dissection or pseudoaneurysm. The soft tissues of the neck are grossly unremarkable. The visualized lungs are clear. The visualized cervical spine appears unremarkable. CTA HEAD: The PICA origin is visualized on the left side. 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 The basilar artery is normal in caliber. The superior cerebellar arteries are unremarkable. The posterior cerebral arteries are unremarkable. The right posterior communicating arteries are unremarkable. The left posterior communicating artery is faintly visualized. Atherosclerotic calcifications are seen in the bilateral carotid siphons, resulting in moderate stenosis of the bilateral paraclinoid ICAs. The anterior and middle cerebral arteries are unremarkable. An anterior communicating artery is visualized. There is no aneurysm, arterial occlusion, or vascular malformation. Postsurgical changes of right frontoparietal craniotomy are seen. IMPRESSION Atherosclerotic calcifications in the bilateral carotid siphons resulting in moderate stenosis of the paraclinoid ICAs. Multifocal moderate stenosis of the left vertebral artery. Preliminary Report Dictated by Resident: Jaclyn Villatoro CT ANGIOGRAM NECK Preliminary Result CT ANGIOGRAM NECK, CT ANGIOGRAM HEAD PROVIDED INDICATION: 68 years-old Male; right-sided weakness and numbness.. COMPARISON: CT angiogram head and neck dated 06/04/2024 TECHNIQUE: CT angiography of the head and neck was performed after the administration of IV contrast with MIPS, coronal and sagittal reconstructions. Vascular measurements of stenosis were made according to the NASCET criteria. FINDINGS: CTA NECK: Classic three vessel branching anatomy of the aortic arch. There are atherosclerotic plaques of the aortic arch result in no significant luminal narrowing or arch vessel origin stenosis. The innominate and bilateral subclavian arteries are patent. Atherosclerotic plaques are seen in the bilateral carotid bulbs, resulting in no more than mild stenosis. The bilateral common carotid and cervical internal carotid are patent. The right vertebral artery is patent throughout it's course up to the vertibrobasilar junction. Calcified atherosclerotic plaque is seen in the left vertebral artery origin, resulting in moderate stenosis. Scattered atherosclerotic plaques and multifocal stenotic segments are also seen throughout the left vertebral artery course. No evidence of dissection or pseudoaneurysm. The soft tissues of the neck are grossly unremarkable. The visualized lungs are clear. The visualized cervical spine appears unremarkable. CTA HEAD: The PICA origin is visualized on the left side. 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 The basilar artery is normal in caliber. The superior cerebellar arteries are unremarkable. The posterior cerebral arteries are unremarkable. The right posterior communicating arteries are unremarkable. The left posterior communicating artery is faintly visualized. Atherosclerotic calcifications are seen in the bilateral carotid siphons, resulting in moderate stenosis of the bilateral paraclinoid ICAs. The anterior and middle cerebral arteries are unremarkable. An anterior communicating artery is visualized. There is no aneurysm, arterial occlusion, or vascular malformation. Postsurgical changes of right frontoparietal craniotomy are seen. IMPRESSION Atherosclerotic calcifications in the bilateral carotid siphons resulting in moderate stenosis of the paraclinoid ICAs. Multifocal moderate stenosis of the left vertebral artery. Preliminary Report Dictated by Resident: Jaclyn Villatoro Lab Results: Lab Results BASIC METABOLIC PANEL (NA, K, CL, CO2, GLUCOSE, BUN, CREATININE, CA) - Abnormal Result Value Ref Range NA 140 135 - 145 mmol/L K 3.9 3.5 - 5.0 mmol/L CL 108 98 - 108 mmol/L CO2 TOTAL 23 23 - 31 mmol/L AGAP 9 2 - 16 BUN 11 7 - 23 mg/dL GLUCOSE 111 (*) 70 - 110 mg/dL CREATININE 0.48 (*) 0.60 - 1.25 mg/dL CALCIUM 9.5 8.6 - 10.6 mg/dL eGFR 113.9 mL/min/1.73m2 LIPID PANEL (56043)(TOTAL CHOLESTEROL, TRIGLYCERIDES, HDL) - Abnormal CHOL 104 (*) 120 - 200 mg/dL HDL 35 (*) >40 mg/dL HDLC RATIO 3.0 <=5.0 TRIG 60 30 - 170 mg/dL LDL CHOL 57 <=160 mg/dL VLDL 12 5 - 60 mg/dL TROPONIN I - Normal TROPONIN I 0.003 <=0.034 ng/mL CBC WITH DIFF WBC 7.55 4.20 - 10.70 10*3/?L RBC 4.96 4.26 - 5.52 10*6/?L HGB 15.1 12.2 - 16.4 g/dL HCT 43.7 38.4 - 49.3 % MCV 88.1 81.7 - 95.6 fL MCH 30.4 26.1 - 32.7 pg MCHC 34.6 31.2 - 35.0 g/dL RDW-SD 41.4 38.5 - 51.6 fL RDW-CV 12.7 12.1 - 15.4 % PLT 267 150 - 328 10*3/?L MPV 10.4 9.8 - 13.0 fL NRBC/100 WBC 0.0 0.0 - 10.0 /100 WBCs NRBC x10 3 <0.01 10*3/?L GRAN MAT (NEUT) % 69.1 % IMM GRAN % 0.10 % LYMPH % 22.4 % MONO % 7.2 % EOS % 0.8 % BASO % 0.4 % GRAN MAT x10 3 (ANC) 5.22 1.99 - 6.95 10*3/uL IMM GRAN x10 3 <0.03 0.00 - 0.06 10*3/uL LYMPH x10 3 1.69 1.09 - 3.23 10*3/uL MONO x10 3 0.54 0.36 - 1.02 10*3/uL EOS x10 3 0.06 0.06 - 0.53 10*3/uL BASO x10 3 0.03 0.01 - 0.09 10*3/uL POCT GLUCOSE(AGE >30DAYS) EKG: If EKG completed, see Procedure Note. Orders and Treatments: Orders Placed This Encounter Procedures CT HEAD WO CONTRAST CT ANGIOGRAM HEAD CT ANGIOGRAM NECK MR STROKE BRAIN WO CONTRAST CBC WITH DIFF BASIC METABOLIC PANEL (NA, K, CL, CO2, GLUCOSE, BUN, CREATININE, CA) TROPONIN I Fasting Lipd Panel (55116)(TOTAL CHOLESTEROL, TRIGLYCERIDES, HDL) POCT Glucose (Age >30 Days) POCT GLUCOSE (AUTOMATED) POCT GLUCOSE (AUTOMATED) POCT GLUCOSE (AUTOMATED) Verifynow Aspirin Test POCT GLUCOSE (AUTOMATED) Consult Slip Maker - STROKE Patient Consult Neurology - STROKE Patient Consult Adult Physical Therapy Consult Adult Occupational Therapy Orders Placed This Encounter Medications DISCONTD: glipiZIDE XL (GLUCOTROL XL) 24 hr tablet 5 mg insulin glargine (LANTUS U-100) injection 25 Units metoprolol succinate XL (TOPROL XL) tablet 25 mg metFORMIN (GLUCOPHAGE) tablet 500 mg DISCONTD: rosuvastatin (CRESTOR) tablet 5 mg labetaloL (NORMODYNE) 5 mg/mL injection 10 mg enoxaparin (LOVENOX) injection 40 mg aspirin chewable tablet 81 mg aspirin chewable tablet 81 mg dextrose 50 % in water (D50W) injection 25 mL glucagon HCL injection 1 mg DISCONTD: Sliding Scale Insulin-Regular pioglitazone (ACTOS) tablet 30 mg iopamidol (ISOVUE 370-500 mL) injection 80 mL rosuvastatin (CRESTOR) tablet 5 mg Sliding Scale Insulin - Lispro (HumaLOG) First Provider Eval: ED Events Date/Time Event User Comments 07/07/24 1515 Medical Screening Begins JUAN CALVILLO MD -- 07/07/24 151 First Provider Evaluation JUAN CALVILLO MD -- AdmissionCare Guideline: Stroke (Ischemic) - OBS, Observation Based on the indications selected for the patient, the bed status of Observation was determined to be MET The following indications were selected as present at the time of evaluation of the patient: - Observation Care Admission Criteria - Observation care is indicated for 1 or more of the following: - Appropriate evaluation (brain MRI, echocardiogram, carotid imaging) cannot be completed in emergency department time frame (3 to 4 hours). AdmissionCare documentation entered by: Juan Calvillo [facility] [employer], 28 edition, Copyright ? 2023 [facility] [employer] All Rights Reserved. [id number]:17:41-05:00 ED COURSE ED Course as of 07/08/24 1535 Jennifer Jul 07, [id number] Discussed with neurology DIANNE Shore, due to complicated CVA history they would like inpatient expedited workup [LM] 1543 EKG time 1523, EKG is normal sinus rhythm, rate of 73, MA is 170, QRS 146, QTc is 473, right bundle branch block is present, indeterminate axis, no marked ST segment elevation or depression. Interpreted by me. [LM] ED Course User Index [LM] Juan Calvillo MD Diagnosis/Impression as of 07/08/24 1535 Numbness Dizziness Numbness and tingling of right arm Procedures: Procedures MDM: Medical Decision Making Problems Addressed: Dizziness: acute illness or injury Numbness: acute illness or injury Details: Grossly at baseline Numbness and tingling of right arm: acute illness or injury Amount and/or Complexity of Data Reviewed Labs: ordered. Radiology: ordered. ECG/medicine tests: ordered and independent interpretation performed. Discussion of management or test interpretation with external provider(s): Discussed with Dr Brown accepts for workup of new possible neuro deficit and r/o vertebrobasilar insufficiency Flowsheet Documentation: Stroke Activation - Date: 07/07/24 LOC: 0 Alert: Keenly Responsive LOC QUESTIONS: 0 Answers Both Questions Correctly LOC COMMANDS: 0 Performs Both Tasks Correctly BEST GAZE: 0 Normal VISUAL: 0 No Visual Loss FACIAL PALSY: 0 Normal MOTOR ARM-LEFT: 0 No Drift MOTOR ARM-RIGHT: 0 No Drift MOTOR LEG-LEFT: 1 Drift MOTOR LEG-RIGHT: 0 No Drift LIMB ATAXIA: 0 Absent SENSORY: 1 Oad-tn-Tihgyjlc Sensory Loss BEST LANGUAGE: 0 No Aphasia DYSARTHRIA: 0 Normal EXTINCTION AND INATTENTION (FORMERLY NEGLECT): 0 No Abnormalty STROKE SCALE TOTAL SCORE: 2 NIH STROKE SCALE LOC: 0 Alert: Keenly Responsive LOC QUESTIONS: 0 Answers Both Questions Correctly LOC COMMANDS: 0 Performs Both Tasks Correctly BEST GAZE: 0 Normal VISUAL: 0 No Visual Loss FACIAL PALSY: 0 Normal MOTOR ARM-LEFT: 0 No Drift MOTOR ARM-RIGHT: 0 No Drift MOTOR LEG-LEFT: 1 Drift MOTOR LEG-RIGHT: 0 No Drift LIMB ATAXIA: 0 Absent SENSORY: 1 Awj-sx-Jjxktqgt Sensory Loss BEST LANGUAGE: 0 No Aphasia DYSARTHRIA: 0 Normal EXTINCTION AND INATTENTION (FORMERLY NEGLECT): 0 No Abnormalty STROKE SCALE INTERVAL: Admission STROKE SCALE TOTAL SCORE: 2 STROKE SCALE INTERVAL: Admission STROKE SCALE TOTAL SCORE: 2 Was IV thrombolytic therapy given?: No Reason no IV thrombolytic therapy initiated: Arrival > 4.5 hours from symptom onset Did patient and/or family agree to IV Thrombolytic?: No Was Endovascular Intervention Performed?: No Reason patient is not a candidate for endovascular intervention: NIH less than or equal to 6 Scoring Tools: No data recorded Disposition/Condition: ED Disposition ED Disposition Admit - Observation Condition Stable Comment Treatment Team: [facility] [[id number]] Discharge Medications: Current Discharge Medication List STOP taking these medications metoprolol succinate XL 25 mg 24 hr tablet Comments: Reason for Stopping: pioglitazone (ACTOS) 30 mg tablet Comments: Reason for Stopping: glipiZIDE XL 5 mg 24 hr tablet Comments: Reason for Stopping: BD ULTRAFINE III MINI PEN 31 gauge x 3/16" Ndle Comments: Reason for Stopping: dulaglutide (TRULICITY) 1.5 mg/0.5 mL PnIj Comments: Reason for Stopping: triamcinolone acetonide 0.1 % cream Comments: Reason for Stopping: Insulin Glargine (LANTUS SOLOSTAR U-100 INSULIN) 100 unit/mL (3 mL) injection Comments: Reason for Stopping: rosuvastatin (CRESTOR) 5 mg tablet Comments: Reason for Stopping: METFORMIN 500 mg tablet Comments: Reason for Stopping: flash glucose sensor (FREESTYLE JOSE 2 SENSOR) Kit Comments: Reason for Stopping: cholecalciferol, vitD3,/vit K2 (VITAMIN D3-VITAMIN K2 ORAL) Comments: Reason for Stopping: docosahexaenoic acid/epa (FISH OIL ORAL) Comments: Reason for Stopping: Magnesium Oxide 500 mg Cap Comments: Reason for Stopping: ubidecarenone (CO Q-10 ORAL) Comments: Reason for Stopping: Blood-Glucose Sensor (FREESTYLE JOSE 3 SENSOR) Yumiko Comments: Reason for Stopping: insulin aspart U-100 (NOVOLOG FLEXPEN U-100 INSULIN) 100 unit/mL (3 mL) injection Comments: Reason for Stopping: Follow-up: Electronically signed by: Juan Calvillo MD 07/08/24 1535 T [facility] 2024-07-07 15:11:00 AdmissionCare Guideline: Stroke (Ischemic) - OBS, Observation Based on the indications selected for the patient, the bed status of Observation was determined to be MET The following indications were selected as present at the time of evaluation of the patient: - Observation Care Admission Criteria - Observation care is indicated for 1 or more of the following: - Appropriate evaluation (brain MRI, echocardiogram, carotid imaging) cannot be completed in emergency department time frame (3 to 4 hours). AdmissionCare documentation entered by: Juan Calvillo [facility], 28th edition, Copyright ? 2023 [facility] All Rights Reserved. [id number] [facility] 2024-07-06 09:02:03 Pt was given referral for Urology with contact info. Jose Ramos RN [facility] 2024-07-06 08:35:12 CT abdomen and pelvis with intravenous Contrast from [facility] dated 07/01/2020 fall had an impression of asymmetric thickening involving the superior bladder wall. Findings concerning for neoplasm. Mild bilateral hydroureteral nephrosis. No obstructing stones identified. Prostate is enlarged. 1. Hematuria, unspecified type - Consult/Referral Urology: General [facility] 2024-07-05 13:37:02 Referral has been renewed. Cerebrovascular accident (CVA), unspecified mechanism [I63.9] Numbness [R20.0] Balance problem [R26.89] hx of CVA and balance problms . Occassional numbness on the right side [facility] 2024-07-05 11:19:27 Maximus Sheehan is a 68 year old male Pt has a Neurology appointment for stroke on 07/07. Can you please send over a referral so we can obtain auth for this visit? Pt will be seeing April Hernandez Thank you Debbie Garcia [facility] 2024-07-05 10:52:32 Patient came in office to drop off final radiology report, disc, and lab work done at [facility]. Placed in provider folder for review. Shefali Marie [facility] 2024-07-04 08:31:36 Received medical records from [facility]. Placed in provider basket for review. Shefali Marie [facility] 2024-07-02 20:40:44 1. Hematuria, unspecified type Please f/u and also get the hospital report - Consult/Referral Urology: General [facility] 2024-07-01 07:57:07 From: Maximus Sheehan To: Office of aPt Chaidez Sent: 07/01/2024 12:28 AM CDT Subject: Medication Renewal Request Refills have been requested for the following medications: dulaglutide (TRULICITY) 1.5 mg/0.5 mL PnIj [Marcel Obi-Dorene] Preferred pharmacy: [id number] Delivery method: Pickup [facility] 2024-06-29 09:16:49 Referral has been placed and patient will be contacted for scheduling assistance. Edgar Driscoll [facility] 2024-06-29 08:11:09 Maximus Sheehan is a 68 year old male calling to schedule referral for TIA. [phone] (home) Yarely Fontana [facility] 2024-06-23 12:02:58 Patient brought [facility] CD with [address] head & brain, Ct head angio, CT head brain w/o contast, CT neck angio and CT Head angio. Uploaded through [employer] and [employer] library with patient's MRN so they can load into [facility] PACS. Lotus Ward RN [facility] 2024-06-23 11:39:15 Pat is taking it to radiology here for uploading. PN-NEUROLOGY STAFF [facility] 2024-06-22 09:39:47 Addended by: BEBE SEGURA on: 06/22/2024 09:39 AM Modules accepted: Orders [facility] 2024-06-22 09:38:42 Dr. Aguilar, if you are unable to get disc uploaded into [employer], please let me know. I let pt know we would call him to pick it up if needed to take to stroke clinic appt. [facility] 2024-06-22 09:38:02 Updated pt of all per Dr. Aguilar : I looked at his data, and there was question of one artery being narrowed: the vertebral. He needs to be seen in the stroke clinic. I will see if we can get the disk uploaded into the [facility] EPIC Pt verbalized understanding of all. [facility] 2024-06-22 08:58:36 I looked at his data, and there was question of one artery being narrowed: the vertebral. He needs to be seen in the stroke clinic. I will see if we can get the disk uploaded into the [facility] EPIC. Can you make that consult? Thanks. PN-NEUROLOGY STAFF [facility] 2024-06-20 10:53:04 Noted. Bebe Segura LVN [facility] 2024-06-20 10:40:40 Maximus Sheehan is a 68 year old male Pt states he will not have the disk tomorrow to give . Pt wanted to inform. Kalani Rosales [facility] 2024-06-20 10:23:05 Refill request for metoprolol received. Refill sent to pharmacy of choice. Patient is compliant as per [facility] Cardiology Protocol. Franklin Preston MA [facility] 2024-06-08 08:09:15 See patient is on metformin 500mg 1 tab bid , can increase it to 2 tab bid instead of the glipizide [facility] 2024-06-06 09:28:51 Images from the original note [...] ROBYN Rollins Last refill: 04/15/2024 Rx #: [id number] Endocrinology: Diabetes - Insulins [id number]/06/2024 08:29 AM Protocol Details Manual review: Staff refilling for [facility], Cr lab not required to refill Cr in normal range and within 360 days Valid encounter within last 12 months HBA1C within 180 days To be filled at: [id number] - [place], [place] - [address] [place] [address] KARINA 05-26-2024 NOV 08-30-2024 Marianela Calderon MA [facility] 2024-06-03 09:14:27 FINDINGS: Proximal abdominal aorta is [...] and blood pressure and cholesterol is stable [facility] 2024-05-31 13:15:00 Images from the original note were not included. Venipuncture collection performed by clean technique on the right anticubitus. Total of 1 attempts were made. Slight pressure and a bandage/dressing were applied to the site(s). The patient experienced no complications. The following specimens were processed according to instructions and sent to [facility] laboratories per lab order on 05/31/2024: LT BLUE SST 1 RED LAV 2 PPT DK GREEN (LiHep) DK GREEN (SodH) MENON DK BLUE (K2) DK BLUE (S) ACD Blood Culture NIPT/NTD Patient has been identified by and name and was provided with cup, antiseptic towelette, and clean catch instructions. 1 urine specimen(s) sent. Unpreserved 1 Urine Culture Aptima tube Other urine T [facility] 2024-05-31 13:15:00 Addended by: MARCEL BEST on: 06/09/2024 12:34 PM Modules accepted: Orders [facility] 2024-05-05 10:49:33 Images from the original note were not included. Scanned in folder and placed in provider basket for review. Lynne Christiansen [facility] 2024-04-29 13:34:10 Noted-Pat Garcia Pat Garcia MA [facility] 2024-04-29 13:02:49 Maximus Sheehan is a 68 [...] change the pts HH care. Myriam Haney [facility] 2024-04-14 13:27:53 Images from the original note were not included. Requested Renewals dulaglutide (TRULICITY) 1.5 mg/0.5 mL PnIj Sig: inject 1 Pen under the skin weekly. Disp: 12 Pen Refills: 0 Start: 04/14/2024 Class: eRX Non-formulary For: Type 2 diabetes mellitus without complication, with long-term current use of insulin Last ordered: 3 months ago (01/04/2024) by ROBYN Rollins Rx #: [id number] Patient comment: I am out as of today Endocrinology: Diabetes - Insulins Kelpuv6704/14/2024 01:16 PM Protocol Details Manual review: Staff refilling for [facility], Cr lab not required to refill Cr in normal range and within 360 days Valid encounter within last 12 months HBA1C within 180 days To be filled at: [id number] [place], [place] - [address] 03-29-2024 [facility] 2024-04-14 13:16:12 From: Maximus Sheehan To: Office of Pat Chaidez Sent: 04/14/2024 12:51 PM CDT Subject: Medication Renewal Request Refills have been requested for the following medications: dulaglutide (TRULICITY) 1.5 mg/0.5 mL PnIj [Pat Chaidez] Patient Comment: I am out as of today Preferred pharmacy: [id number] - [place], [place] - [address] [facility] Delivery method: Pickup [facility] 2024-03-28 08:27:15 Quanta vicente pad test 02/24/24 concerning for moderate pad. Continue risk assessment and reduction. Patient on statin [facility] 2024-03-28 08:12:35 Records reviewed, f/u in next appointment [facility] 2024-03-24 12:11:30 Problem: Bleeding, Risk of Goal: [...] Outcome: Progressing as expected Lakeshia Turcios RN [facility] 2024-03-24 08:38:24 Problem: Bleeding, Risk of Goal: Absence of impaired coagulation signs and symptoms Outcome: Progressing as expected Goal: Absence of active bleeding Outcome: Progressing as expected Problem: Falls, Risk of Goal: Absence of falls Outcome: Progressing as expected Problem: Discharge Planning Goal: Adequate for discharge Outcome: Progressing as expected Goal: Effective communication Outcome: Progressing as expected [facility] 2024-03-24 03:23:47 Problem: Bleeding, Risk of Goal: [...] Outcome: Progressing as expected Jose Cruz RN [facility] 2024-03-23 14:48:50 Health assessment received from [facility] scanned in folder and placed in provider basket for review. Lynne Christiansen [facility] 2024-03-22 21:46:38 Problem: Bleeding, Risk of Goal: Absence of impaired coagulation signs and symptoms Outcome: Progressing as expected Goal: Absence of active bleeding Outcome: Progressing as expected Steven Ambrose RN [facility] 2024-03-22 08:19:00 FULL OPERATIVE NOTE Date of [...] Hoover MD, ZINA RAGLAND Vascular Surgery PGY17 CAROLYN-VASCULAR SURGERY [facility] 2024-03-22 08:19:00 BRIEF OPERATIVE NOTE Date of Surgery: 03/22/2024 Surgeons and Role: * Ron Hoover MD - Primary * Ed Hadley MD - Resident - Assisting Pre-Op Diagnosis: Carotid stenosis, bilateral [I65.23] Post-Op Diagnosis Codes: * Carotid stenosis, bilateral [I65.23] Procedures: Procedure(s) (LRB): CAROTID ENDARTERECTOMY (Right) [facility], Any Complications Encounters: none Estimated Blood Loss: 100cc Specimens Removed: * No specimens in log * Implant Name Type Inv. Item Serial No. Drop Count Associate Lot No. LRB No. Used Action PATCH XENOSUR 0.8X8CM TAPR 0.5 #[id number] - S0000 Tissue, Biological PATCH XENOSUR 0.8X8CM TAPR 0.5 #[id number] 0000 [facility] VASCULAR [id number] Right 1 Implanted Patient's Condition: stable Findings: ICA stenosis Any other important information: - SBP goal <140 Please see dictated operative report for additional detail. Associated attestation - Ron Hoover MD - 03/24/2024 7:31 AM CDT I was scrubbed in and directly supervised and/or performed all critical portions of the procedure. Ron Hoover MD, ZINA RAGLAND Vascular Surgery PGY17 [facility] 2024-03-19 10:30:00 Images from the original note were not included. Venipuncture collection performed by clean technique on the left anticubitus. Total of 1 attempts were made. Slight pressure and a bandage/dressing were applied to the site(s). The patient experienced no complications. The following specimens were processed according to instructions and sent to [facility] laboratories per lab order on 03/19/2024 : Patient armbanded and specimen sent to [facility]. LT BLUE SST RED LAV 1 PPT DK GREEN (LiHep) DK GREEN (SodH) MENON DK BLUE (K2) DK BLUE (S) ACD Blood Culture NIPT/NTD [facility] 2024-03-17 16:02:18 Results received from [facility] scanned in folder and placed in provider basket for review. Lynne Christiansen [facility] 2024-03-14 11:49:56 Rollator order sent to [facility] [employer] via [employer]edo. Jose Ramos RN [facility] 2024-03-11 14:59:20 Images from the original note were not included. POC discussed with pt, ER precautions discussed. Pt verbalized understanding and agrees w/POC. Pat Chaidez FNP MIDLEVEL PROVIDER Signed 2:38 PM I would continue to hold the Losartan If the BP starts to go up to 140/90 Then start back at Losartan 12.5 mg (half the tablet) Jose Ramos RN [facility] 2024-03-11 14:38:58 I would continue to hold the Losartan If the BP starts to go up to 140/90 Then start back at Losartan 12.5 mg (half the tablet) T [facility] 2024-03-11 14:12:39 Pt states HH nurse saw [...] of Rollator. Rx re-printed to send via imedo. Message forwarded to ROBYN Esparza. T [facility] 2024-03-11 13:08:47 Copied from [facility] #[id number]. 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 Pt stopped taking losartan [address] Fink put pt on metoprolol and made him stop taking carvedilol. He states that it is starting to get a little better. He is requesting to speak with clinical staff in regards to his blood pressure readings. Please advise. Janie Hardwick [facility] 2024-03-10 15:00:00 Addended by: RON HOOVER MD on: 03/17/2024 04:12 PM Modules accepted: Orders T [facility] 2024-03-03 01:59:06 Pt dc'd home with personal walker. Pt v/u to keep follow up appointments that he already has scheduled and to return to ED for worsening symptoms. Quiana Carranza RN [facility] 2024-03-02 23:43:23 Pt stated he had a fall last Thursday and woke up 30 min later on the floor. Pt had full workup at [facility]. Pt stated tonight he "just felt like I wasn't going to wake up in the morning so I decided to come get checked out." Pt obtained a ride from a friend in the [place] he lives at and asked me if we could keep him until 8am so he could walk across the street to his cardiology appointment at 9am. [facility] 2024-03-02 23:16:00 Pt arrives ambulatory with walker [...] BG 123 in triage. Marianela Walker RN [facility] 2024-03-02 16:21:06 Forms placed in nurse folder, has appt tomorrow. 03/03/2024. Jose Ramos RN [facility] 2024-03-02 14:04:26 Please make sure patient brings imaging studies with him to appointment (CT results on disc please, not just report) CAROLYN-VASCULAR SURGERY STAFF [facility] 2024-03-02 13:53:08 Images from the original note were not included. Transition of Care forms received placed in Nurse fax folder. Cynthia Walker [facility] 2024-03-02 11:16:48 [facility] reports and disc received by patient and placed in the providers folder at [facility] location. Reports scanned to [employer] for upload. Ana Maria Andrew [facility] 2024-02-29 13:16:02 Patient scheduled for next available 03/10/24 and message routed to Dr Hoover for notification. Spoke with patient and notified next available 03/10/24. Patient encouraged to let attending know that he is scheduled for next available 03/10/[address] Hoover. Patient verbalized understanding. 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 Venipuncture collection performed by clean technique on the right anticubitus. Total of 3 attempts were made. Slight pressure and a bandage/dressing were applied to the site(s). The patient experienced no complications. The following specimens were processed according to instructions and sent to [facility] laboratories per lab order on 02/22/2024 : LT BLUE SST 2 RED LAV 1 PPT DK GREEN (LiHep) DK GREEN (SodH) MENON DK BLUE (K2) DK BLUE (S) ACD Blood Culture NIPT/NTD [facility] 2024-02-10 15:14:11 Forms received and placed in providers folder. Jose Ramos RN [facility] 2024-02-10 08:57:17 Images from the original note were not included. Placed in nurse folder. Lynne Christiansen [facility] 2024-02-10 08:50:30 Will await forms for completion Jose Ramos RN [facility] 2024-02-10 08:21:11 Maximus Sheehan is a 68 year old male January [facility] medical called stating they will be faxing over "Jose 2 sensors forms" for pcp to be filled out. Please advise [facility] INFO Ph # [phone] Fx # [phone] Anatoly Clark [facility] 2024-01-29 12:43:02 Refill [facility] 2024-01-29 11:31:00 Medication has not been filled by our office before. Message forwarded to provider for approval. Jose Ramos RN [facility] 2024-01-06 09:06:45 Images from the original note were not included. Notification received [facility], placed in provider folder for review. Cynthia Walker [facility] 2024-01-04 16:53:53 Received medical records from scanned and placed in box. Yancy Thurston [facility] 2024-01-04 15:13:09 Sensor has been sent to a DME company ([employer]) through [employer]. Patient rollator is waiting for provider signature. Resent to provider to sign orders through [employer]. Marianela Calderon MA [facility] 2024-01-04 13:51:14 Per patient, he is using the [employer] Jose 2 sensor and it must be sent to [facility], it cannot be sent to the pharmacy. Order updated. Will routed to [facility] for DME order to [employer]. [facility] 2023-12-29 13:59:51 Pt has signed medical release and has been faxed to designated location for request of medical records. Confirmation received. Scanned and uploaded to patients chart. OGRAPHY TECHNICIAN Lucia Sandoval [facility] 2023-12-08 10:49:19 Maximus Sheehan [id number] 12/08/23 Incoming call from patient who is trying to contact his PCP, Pat Chaidez -LEARNING COORDINATOR regarding his medication. Current overdue topics are [...] unable to transfer to this clinic in [place], [place]. Patient was given the clinic phone number [phone] to speak with staff at the [facility]. Deandra Medina RN 12/08/2023 10:49 AM OGRAPHY TECHNICIAN Deandra Medina RN [facility] 2023-12-02 11:45:00 Images from the original note were not included. Venipuncture collection performed by clean technique on the right anticubitus. Total of 1 attempts were made. Slight pressure and a bandage/dressing were applied to the site(s). The patient experienced no complications. The following specimens were processed according to instructions and sent to [facility] laboratories per lab order on 12/02/2023: LT BLUE SST 1 RED LAV 2 PPT DK GREEN (LiHep) DK GREEN (SodH) MENON DK BLUE (K2) DK BLUE (S) ACD Blood Culture NIPT/NTD Patient has been identified by and name and was provided with cup, antiseptic towelette, and clean catch instructions. 2 urine specimen(s) sent. Unpreserved 2 Urine Culture Aptima tube Other urine OGRAPHY TECHNICIAN [facility] 2023-12-02 10:32:53 DME order for Rollator was sent through [employer]. Sent to [facility] Patient. OGRAPHY TECHNICIAN Marianela Calderon MA [facility]
[2025-02-12 15:41] LABS: Absolute Lymphocytes (CBC) 0.9 K/uL (0.7-4.9); Absolute Monocytes 0.5 K/uL (0.1-1.3); Absolute Neutrophil 6.1 K/uL (1.8-8.0); Basophils % 0.5 % (0-1.3); Eosinophils % 0.3 % (0-4.4); Hematocrit 40.3 % (39.6-49.0); Hemoglobin 13.7 g/dL (13.6-17.9); Lymphocytes % 12.2 % (15.3-44.8); MCH 29.5 pg (27.0-35.0); MCHC 33.9 g/dL (32.0-36.0); MCV 86.9 fL (80-100); MPV 7.5 fL (7.6-11.3); Monocytes % 7.1 % (3.3-12.3); Neutrophils % 79.9 % (41.7-73.7); Nucleated Red Blood Cells % 0.2 % (0-0); Platelets 254 thou/uL (152-406); RBC Red Blood Cell Count 4.63 M/uL (4.33-5.43); Red Cell Distribution Width 13.7 % (12.1-15.2)
[2025-02-12] MEDS ORDERED: ASPIRIN 81 MG CHEWABLE TABLET ONE (15:50)
[2025-02-12 15:51] LABS: PT Prothrombin Time 11.8 SECONDS (10-13.0); Protime INR 1.04
[2025-02-12] MEDS ORDERED: NA CHLORIDE 0.9% 500 ML ONE (15:51)
[2025-02-12 16:02] LABS: ALT/SGPT 16 U/L (16-61); Albumin/Globulin Ratio 0.9 (1.1-1.8); Alkaline Phosphatase 83 U/L (45-117); Anion Gap 7.6 mEq/L (5.0-15.0); BUN Blood Urea Nitrogen 14 mg/dL (7-18); Bicarbonate 28 mEq/L (21-32); Bilirubin Direct 0.2 mg/dL (0-0.2); Bilirubin Indirect, Calculated 0.6 mg/dL (0.2-0.8); Bilirubin Total 0.8 mg/dL (0.2-1.0); Globulin 3.5 g/dL (2.3-3.5); Glomerular Filtration Rate 102 ml/min (=/>90); Glucose Level 161 mg/dL (74-106); Lipase 16 U/L (13-75); Magnesium 1.8 mg/dL (1.6-2.4); NT PRO-BNP 320 pg/mL (<125); Potassium 3.6 mEq/L (3.5-5.1); Protein, Total 6.5 g/dL (6.4-8.2); Sodium Level 136 mEq/L (136-145)
[2025-02-12 16:07] LABS: AST/SGOT < 10 U/L (15-37)
--- NOTE | 2025-02-12 16:14 | RAD REPORT ---
Procedure: Chest Single View HISTORY: Chest pain COMPARISON: 2023 FINDINGS: The lungs appear clear of acute infiltrate. No significant pleural effusion noted. The heart is normal size. Post surgical changes involve the chest. IMPRESSION: No acute abnormality is displayed.
--- NOTE | 2025-02-12 16:37 | ER ---
Nurse's Notes [facility] Name: Amando Sheehan II Age: 69 yrs Sex: Male : 1955 Arrival Date: 02/12/2025 Time: 14:44 Bed 18 Private MD: Diagnosis: Non ST elevation WI;Unstable angina Presentation: 02/12 15:03 Chief complaint: EMS states: chest pain since [place], dizziness, mild tremors, kj2 headache. Coronavirus screen: Client denies travel out of the [place] in the last 14 days. Ebola Screen: No symptoms or risks identified at this time. Initial Sepsis Screen: Does the patient meet any 2 criteria? No. Patient's initial sepsis screen is negative. Does the patient have a suspected source of infection? No. Patient's initial sepsis screen is negative. Risk Assessment: Do you want to hurt yourself or someone else? Patient reports no desire to harm self or others. Onset of symptoms was February 07, 2025. 15:03 Method Of Arrival: EMS: [facility] 2 15:03 Acuity: SILVIA 3 kj2 Triage Assessment: 15:07 General: Appears in no apparent distress. Behavior is calm, cooperative. Pain: kj2 Complains of pain in chest Pain currently is 7 out of 10 on a pain scale. Neuro: Level of Consciousness is awake, alert, obeys commands, Oriented to person, place, time, situation. Cardiovascular: Patient's skin is warm and dry. Respiratory: Airway is patent Respiratory effort is even, unlabored. GI: No signs and/or symptoms were reported involving the gastrointestinal system. : No signs and/or symptoms were reported regarding the genitourinary system. Historical: - Allergies: 15:06 Morphine; kj2 - PMHx: 15:06 Brain bleed; Cerebrovascular accident; Myocardial infarction; Transient cerebral kj2 ischemia; traumatic brain injury; - PSHx: 15:06 brain surgery; Coronary artery bypass graft; Stented artery; kj2 - Immunization history:: Adult Immunizations unknown. - Infectious Disease History:: Denies. - Social history:: Smoking status: unknown. Screenin:08 [facility] ED Fall Risk Assessment (Adult) History of falling in the last 3 months, kj2 including since admission No falls in past 3 months (0 pts) Confusion or Disorientation No (0 pts) Intoxicated or Sedated No (0 pts) Impaired Gait No (0 pts) Mobility Assist Device Used No (0 pt) Altered Elimination No (0 pt) Score/Fall Risk Level 0 - 2 = Low Risk Maintained a safe environment, Hourly rounding (assess needs \T\ fall precautionary measures) done. Abuse screen: Denies threats or abuse. Denies injuries from another. Nutritional screening: No deficits noted. On. Tuberculosis screening: No symptoms or risk factors identified. Assessment: 15:08 General: see triage assessment. kj2 16:10 Reassessment: Patient appears in no apparent distress at this time. Patient and/or kj2 family updated on plan of care and expected duration. Pain level reassessed. Patient is alert, oriented x 3, equal unlabored respirations, skin warm/dry/pink. 17:28 Pain: Pain does not radiate. Pain began suddenly. ll1 Vital Signs: 15:03 BP 123 / 64; Pulse 92; Resp 20; Pulse Ox 95% ; Weight 73.94 kg; Height 6 ft. 0 in. ; kj2 Pain 7/10; 16:10 BP 130 / 60; Pulse 78; Resp 18; Temp 98; Pulse Ox 100% on R/A; kj2 17:00 BP 128 / 61; Pulse 88; Resp 17; Pulse Ox 96% ; ll1 17:32 BP 149 / 71; Pulse 87; Resp 17; Pulse Ox 95% on R/A; ll1 15:03 Body Mass Index 22.11 (73.94 kg, 182.88 cm) kj2 15:03 Pain Scale: Adult kj2 ED Course: 15:02 Patient arrived in ED. bp 15:02 Jessi Wood, RN is Primary Nurse. kj2 15:06 Triage completed. kj2 15:09 Patient has correct armband on for positive identification. Bed in low position. Call kj2 light in reach. Provided Education on: call light. Client placed on continuous cardiac and pulse oximetry monitoring. NIBP monitoring applied. laboratory apparatus glass blower on. Pulse ox on. 15:16 Edil Kraft MD is Attending Physician. zayda 15:34 Warm blanket given. am7 15:34 EKG done, by ED staff, reviewed by Edil Kraft MD. Inserted saline lock: 20 gauge in am7 right forearm, using aseptic technique. Blood collected. Flushed with 10 mL NS. 15:38 XRAY Chest (1 view) In Process Unspecified. EDHI 16:[address] Kraft called for Transfer to [facility] talked to [place]. 162 Dr. Toni dawson accepted to [facility] 1626 admin approval [place] to [id number]. report number [phone]. called [facility] for transfer talked to Suki. 17:25 Notified Charge Nurse of RN unable to give medications before transferred urgently by 1 Dr. Kraft. 17:27 No provider procedures requiring assistance completed. Patient transferred, IV remains ll1 in place. Patient maintains SpO2 saturation greater than 95% on room air. 17:28 Arm band placed on. ll1 Administered Medications: 16:03 Drug: Aspirin PO Chewable Tablet 81 mg PO once Route: PO; kj2 17:29 Follow up: Response: No adverse reaction 1 16:04 Drug: NS 0.9% IV 500 ml 500 ml IV at 1 bolus once; to be given as a bolus over 30 kj2 minutes Volume: 500 ml; Route: IV; Rate: 1 bolus; Site: right forearm; 17:28 Follow up: Response: No adverse reaction; IV Status: Completed infusion; IV Intake: ll1 500ml 17:29 Not Given (transferred before receiving): [id number] mg IVP once; dilute with 10 mL 1 0.9% NaCl; give over 2 minutes 17:29 Not Given (transferred before receivingg): aspirinchewable tablet 243 mg PO once ll1 17:30 Not Given (transferred before receivingg): [id number] mg PO once ll1 17:30 Not Given (transferred before receivingg): Heparin ([place]-Bolus No thrombolytic) - ll1 [id number] units/kg IVP once; Max 5000 units 17:31 Not Given (patient transferred before receivingg): Heparin ([place] Drip) - ([id number] ll1 units, l4y402 ml) 12 units/kg/hr IV at calculated rate Per protocol; Max initial rate 1000 units/hr 17:31 Not Given (transferred before receivingg): fentanyl (pf)50 mcg IVP once ll1 17:31 Not Given (not received before transferringg): ondansetron 4 mg IVP once; over 2 minutesll1 Medication: 15:09 VIS not applicable for this client. kj2 Intake: 17:28 IV: 500ml; Total: 500ml. ll1 Outcome: 16:36 ER care complete, transfer ordered by MD. priest 17:27 Transferred by ground EMS to [facility], Transfer form ll1 completed. Note: report called to Gail Cash RN at [facility] 17:27 Condition: stable 17:27 Instructed on the need for transfer, 17:35 Patient left the ED. ll1 Signatures: Dispatcher [employer] EDHI Edil Kraft MD MD cha Pinkerton, Shawna sp Peltier, Brian RN RN Arnold Guan RN RN ll1 Jessi Wood RN RN kj2 Roya Hill am7 Corrections: (The following items were deleted from the chart) 16:04 16:03 NS 0.9% IV 500 ml 500 ml IV at 1 bolus in right wrist kj2 kj2
--- NOTE | 2025-02-12 16:37 | EDPHYS ---
Physician Documentation [facility] Name: Amando Sheehan II Age: 69 yrs Sex: Male : 1955 Arrival Date: 02/12/2025 Time: 14:44 Bed 18 Private MD: ED Physician Edil Kraft HPI: 02/12 16:26 This 69 yrs old Male presents to ER via EMS with complaints of Chest Pain. zayda 16:26 The patient or guardian reports chest pain that is located primarily in the substernal zayda area. Onset: 5 day(s) ago. The pain radiates to the left shoulder. Associated signs and symptoms: Pertinent positives: shortness of breath. The chest pain is described as aching, a heaviness, causing indigestion, a pressure. Duration: The patient or guardian reports multiple episodes, with no pattern. Modifying factors: The symptoms are alleviated by nothing. the symptoms are aggravated by nothing. Severity of pain: At its worst the pain was moderate in the emergency department the pain is unchanged. Historical: - Allergies: 15:06 Morphine; kj2 - PMHx: 15:06 Brain bleed; Cerebrovascular accident; Myocardial infarction; Transient cerebral kj2 ischemia; traumatic brain injury; - PSHx: 15:06 brain surgery; Coronary artery bypass graft; Stented artery; kj2 - Immunization history:: Adult Immunizations unknown. - Infectious Disease History:: Denies. - Social history:: Smoking status: unknown. ROS: 16:31 Constitutional: Negative for fever, chills, and weight loss, Eyes: Negative for injury, zayda pain, redness, and discharge, ENT: Negative for injury, pain, and discharge, Neck: Negative for injury, pain, and swelling, Respiratory: Negative for shortness of breath, cough, wheezing, and pleuritic chest pain, Abdomen/GI: Negative for abdominal pain, nausea, vomiting, diarrhea, and constipation, Back: Negative for injury and pain, : Negative for injury, bleeding, discharge, and swelling, MS/Extremity: Negative for injury and deformity, Skin: Negative for injury, rash, and discoloration, Neuro: Negative for headache, weakness, numbness, tingling, and seizure, Psych: Negative for depression, anxiety, suicide ideation, homicidal ideation, and hallucinations, Allergy/Immunology: Negative for hives, rash, and allergies, Endocrine: Negative for neck swelling, polydipsia, polyuria, polyphagia, and marked weight changes, Hematologic/Lymphatic: Negative for swollen nodes, abnormal bleeding, and unusual bruising, 16:31 Cardiovascular: Positive for chest pain, of the chest, Exam: 16:31 Constitutional: This is a well developed, well nourished patient who is awake, alert, zayda and in no acute distress. Head/Face: Normocephalic, atraumatic. Eyes: Pupils equal round and reactive to light, extra-ocular motions intact. Lids and lashes normal. Conjunctiva and sclera are non-icteric and not injected. Cornea within normal limits. Periorbital areas with no swelling, redness, or edema. ENT: Nares patent. No nasal discharge, no septal abnormalities noted. Tympanic membranes are normal and external auditory canals are clear. Oropharynx with no redness, swelling, or masses, exudates, or evidence of obstruction, uvula midline. Mucous membranes moist. Neck: Trachea midline, no thyromegaly or masses palpated, and no cervical lymphadenopathy. Supple, full range of motion without nuchal rigidity, or vertebral point tenderness. No Meningismus. Chest/axilla: Normal chest wall appearance and motion. Nontender with no deformity. No lesions are appreciated. Cardiovascular: Regular rate and rhythm with a normal S1 and S2. No gallops, murmurs, or rubs. Normal PMI, no JVD. No pulse deficits. Respiratory: Lungs have equal breath sounds bilaterally, clear to auscultation and percussion. No rales, rhonchi or wheezes noted. No increased work of breathing, no retractions or nasal flaring. Abdomen/GI: Soft, non-tender, with normal bowel sounds. No distension or tympany. No guarding or rebound. No evidence of tenderness throughout. Back: No spinal tenderness. No costovertebral tenderness. Full range of motion. Male : Normal genitalia with no discharge or lesions. Skin: Warm, dry with normal turgor. Normal color with no rashes, no lesions, and no evidence of cellulitis. MS/ Extremity: Pulses equal, no cyanosis. Neurovascular intact. Full, normal range of motion., bilateral aka Neuro: Awake and alert, GCS 15, oriented to person, place, time, and situation. Cranial nerves II-XII grossly intact. Motor strength 5/5 in all extremities. Sensory grossly intact. Cerebellar exam normal. Normal gait. Psych: Awake, alert, with orientation to person, place and time. Behavior, mood, and affect are within normal limits. 16:31 ECG was reviewed by the Attending Physician. 16:31 Musculoskeletal/extremity: ROM: no acute changes, intact in all extremities, full active range of motion, full passive range of motion, Circulation is intact in all extremities. Sensation intact. Compartment Syndrome exam of affected extremity: is normal. Weight bearing: able to fully bear weight, Tendon exam: specific tendon testing normal through active and passive range of motion DVT Exam: No signs of deep vein thrombosis. no pain, no swelling, no tenderness, negative Homans' sign noted on exam, no appreciated bluish discoloration, no erythema, no increased warmth, Vital Signs: 15:03 BP 123 / 64; Pulse 92; Resp 20; Pulse Ox 95% ; Weight 73.94 kg; Height 6 ft. 0 in. ; kj2 Pain 7/10; 16:10 BP 130 / 60; Pulse 78; Resp 18; Temp 98; Pulse Ox 100% on R/A; kj2 17:00 BP 128 / 61; Pulse 88; Resp 17; Pulse Ox 96% ; ll1 17:32 BP 149 / 71; Pulse 87; Resp 17; Pulse Ox 95% on R/A; ll1 15:03 Body Mass Index 22.11 (73.94 kg, 182.88 cm) kj2 15:03 Pain Scale: Adult kj2 MDM: 15:19 Medical Screening Exam initiated zayda 16:33 Differential diagnosis: abnormal EKG, acute myocardial infarction, acute pericarditis, zayda anxiety, coronary artery disease chest wall pain, cholecystitis, Cholelithiasis costochondritis, esophagitis, gastritis, gastroesophageal reflux disease (GERD), herpes zoster, myocarditis, pancreatitis, peptic ulcer disease, pericarditis, pleurisy, pneumonia, pneumothorax, pulmonary embolus, stable angina, thoracic aortic disection, unstable angina. HEART Score: History: Moderately Suspicious (1), ECG: Non specific repolarization disturbance / LBTB / PM (1), Age: > or = 65 years (2), Risk Factors: > or = 3 Risk factors for atherosclerotic disease (2), [Hypercholesterolemia] [Hypertension] [+ Family HX] [Obesity] Troponin: > 1 and < 3 x normal limit (1), Total Score = 7. The patient was given aspirin in the Emergency Department. JING Risk Score: 1 - patient's age is greater or equal to 65 years, 1 - Three or more CAD risk factors, 1- Known CAD, 1 - ASA use in past 7 days, 1 - Elevated Cardiac Markers, TOTAL SCORE = 5. Data reviewed: vital signs, nurses notes, EMS record, lab test result(s), EKG, radiologic studies, plain films. Consideration of Admission/Observation Patient was admitted/placed on observation. Escalation of care including admission/observation considered. I considered the following discharge prescriptions or medication management in the emergency department Medications were administered in the Emergency Department. See MAR. Independent interpretation of the following test(s) in the Emergency Department EKG: See my EKG interpretation above. Test considered but Not performed: Ultrasound NO 2 D ECHO. Counseling: I had a detailed discussion with the patient and/or guardian regarding the historical points, exam findings, and any diagnostic results supporting the discharge/admit diagnosis, lab results, radiology results, the need to transfer to another facility, for higher level of care, [facility] does not immediately have the required specialist. 02/12 15:17 Order name: Basic Metabolic Panel; Complete Time: 16:24 02/12 15:17 Order name: CBC with Diff; Complete Time: 16:24 02/12 15:17 Order name: LFT's; Complete Time: 16:24 02/12 15:17 Order name: Magnesium; Complete Time: 16:24 02/12 15:17 Order name: NT PRO-BNP; Complete Time: 16:24 02/12 15:17 Order name: PT-INR; Complete Time: 16:24 02/12 15:17 Order name: Troponin HS; Complete Time: 16:24 02/12 15:17 Order name: Lipase; Complete Time: 16:24 02/12 15:17 Order name: XRAY Chest (1 view); Complete Time: 16:24 02/12 15:17 Order name: EKG; Complete Time: 15:17 02/12 15:17 Order name: Cardiac monitoring; Complete Time: 15:35 02/12 15:17 Order name: EKG - Nurse/Tech; Complete Time: 15:35 20 15:17 Order name: IV Saline Lock; Complete Time: 15:35 [facility] 02/12 15:17 Order name: Labs collected and sent; Complete Time: 15:35 [facility] 02/12 15:17 Order name: O2 Per Protocol; Complete Time: 15:35 [facility] 02/12 15:17 Order name: O2 Sat Monitoring; Complete Time: 15:35 [facility] EC:31 Rate is 90 beats/min. QRS [place] is Normal. MN interval is normal. QRS interval is zayda normal. QT interval is normal. No Q waves. T waves are Normal. Clinical impression: NSR w/ Non-specific ST/T Changes and No evidence of ischemia. Interpreted by me. Reviewed by me. Administered Medications: 16:03 Drug: Aspirin PO Chewable Tablet 81 mg PO once Route: PO; kj2 17:29 Follow up: Response: No adverse reaction ll1 16:04 Drug: NS 0.9% IV 500 ml 500 ml IV at 1 bolus once; to be given as a bolus over 30 kj2 minutes Volume: 500 ml; Route: IV; Rate: 1 bolus; Site: right forearm; 17:28 Follow up: Response: No adverse reaction; IV Status: Completed infusion; IV Intake: ll1 500ml 17:29 Not Given (transferred before receiving): hagplphloi87 mg IVP once; dilute with 10 mL ll1 0.9% NaCl; give over 2 minutes 17:29 Not Given (transferred before receivingg): aspirinchewable tablet 243 mg PO once ll1 17:30 Not Given (transferred before receivingg): kjneghayyva438 mg PO once ll1 17:30 Not Given (transferred before receivingg): Heparin ([place]-Bolus No thrombolytic) - ll1 [id number] units/kg IVP once; Max 5000 units 17:31 Not Given (patient transferred before receivingg): Heparin ([place] Drip) - ([id number] ll1 units, t0z500 ml) 12 units/kg/hr IV at calculated rate Per protocol; Max initial rate 1000 units/hr 17:31 Not Given (transferred before receivingg): fentanyl (pf)50 mcg IVP once ll1 17:31 Not Given (not received before transferringg): ondansetron 4 mg IVP once; over 2 minutesll1 Disposition Summary: 02/12/25 16:36 Transfer Ordered Notes: Transfer Location: [facility] zayda Reason: Higher level of care zayda Condition: Fair zayda Problem: new zayda Symptoms: have improved zayda Accepting Physician: TO [facility] DR MARTINEZ(02/12/25 17:35) ll1 Diagnosis - Non ST elevation PA zayda - Unstable angina zayda Forms: - Medication Reconciliation Form zayda - SBAR form zayda Signatures: Dispatcher [employer] EDEdil Pina MD MD cha Lewis, Lynsay RN RN ll1 Jessi Wood RN RN kj2 Corrections: (The following items were deleted from the chart) 17:35 16:[address] [facility] [address] MICHELLE priest ll1
[2025-02-12] MEDS ORDERED: CLOPIDOGREL 75 MG TABLET ONE (17:25)
[2025-02-12 18:18] VITALS: BP 149/71; O2SAT 95
--- NOTE | 2025-02-15 12:47 | EKG ---
Test Date: 2025-02-12 Test Time: 14:52:21 Customer Experience Manager: AM MEASUREMENT RESULTS: Intervals: Rate: 90 AL: 170 QRSD: 140 QT: 374 QTc: 457 [place]: P: 77 AL: 170 QRS: 6 T: 80 INTERPRETIVE STATEMENTS: Normal sinus rhythm Right bundle branch block Abnormal ECG Compared to ECG 06/04/2024 02:01:19 No significant changes Electronically Signed On 02-15-25 12:40:46 CDT by Pedro Pablo Verma
== END 2025-02-12 17:35 | disposition short-term general hospital (02) ==
LOC: ER 14:44
DX: I21.4 Non-ST elevation (NSTEMI) myocardial infarction (principal); I25.2 Old myocardial infarction; Z86.73 Personal history of transient ischemic attack (TIA), and cerebral infarction without residual deficits; Z95.1 Presence of aortocoronary bypass graft
CPT/HCPCS: 93005; 85025; 80048; 36415; 83735; 85610; 80076; 84484; 83690; 83880; 71045; 96360; 99285; J7040

== ENCOUNTER 2025-06-19 21:40 | Emergency (ER) | payer OTHER ==
--- OUTSIDE RECORDS SUMMARY | 2025-06-19 21:57 | XMS REPORT | Continuity of Care Document ---
Author Name Unknown Address [address] [facility] [address] [place] [address] [facility] Address [address] [facility] [address] [place] [address] Care Team Providers Care Evaluation Specialist Name Role Phone Marcel Toth MD Primary Care Physician + [phone] RILEY GRANADOS Attending Clinician Unavailable LYNN DOLL Attending Clinician Unavailable ALLYSON FINK Attending Clinician Unavailable RON HOOVER Attending Clinician Unavailable WILLY VALDIVIA Attending Clinician UnavailWILLY Hansen Attending Clinician UnavailMARCEL Dorado Attending Clinician Unavailab MARCEL Hankins Attending Clinician Unavailab LASHA Mckeon Attending Clinician Unavail able LASHA AGUILAR Attending Clinician Unavail able ROMA DAVISON Attending Clinician Unavailable Marcel Toth MD Attending Clinician [phone] GARO NORWOOD Attending Clinician Unavailable Allyson Fink MD Attending Clinician [phone] Riley Granados MD Attending Clinician Yaz Jefferson RN Attending Clinician Unava ilMARGOTH Morris Attending Clinician Unavailable ARIADNE LASSITER Attending Clinician Unavailab ARIADNE Moss Attending Clinician Unavailab Natanael Humphries DO Attending Clinician [phone] Doctor Unassigned, Adwolf Attending Clinician U poncho Doll MD, Lynn Attending Clinician [phone] Ariadne Lassiter MD Attending Clinician [phone] Mauri Sewell Attending Clinician [phone] Adela Ward DO Attending Clinician [phone] ORVILLE SHAW Attending Clinician UnavailORVILLE Fraire Attending Clinician UnavailOrville Fraire MD Attending Clinician [phone] Apurva Leonard PT Attending Clinician Unavailab Shelby Ahn LMSW Attending Clinician Unavai SALEEM Reich Attending Clinician Unavailable SALEEM ERICKSON Attending Clinician Unavailable Mindy Andino MD Attending Clinician [phone] HALINA VEGAS Attending Clinician UnavailALEX Wong Attending Clinician UnavailALEX Wong Attending Clinician UnavailAlex Wong MD Attending Clinician [phone] MINDY ANDINO Attending Clinician Unavailable MINDY ANDINO Attending Clinician Unavailable Scar IRBY, Brennen Pérez Attending Clinician [phone] Duc Robbins CRNA Attending Clinician + [phone] Gabriella Nobles Attending Clinician Unava Lasha Baig MD Attending Clinician [phone] Bobbi Rosas Attending Clinician + [phone] KIAH GARCIA Attending Clinician UnavailKIAH Souza Attending Clinician Unavailmarleny Garcia MD, Kiah Renae Attending Clinician [phone] BOBBI SAUNDERS Attending Clinician UnavailPat Medeiros Attending Clinician [phone] 2, [facility] Attending Clinician Unavailable Nurse, [facility] Gu Attending Clinician Judy Roberts RN, Latosha Pope Attending Clinician Unavailab yannick Chong MD, Mendoza Attending Clinician [phone] MENDOZA CHONG Attending Clinician Unavailable Laney IRBY, Afaq Attending Clinician [phone] Nurse, [facility] Surgery Gu Attending Clinician JHONY Gongora Attending Clinician Unavailable Chano IRBY, Jhony Attending Clinician [phone] SANDRO RAMIREZ Attending Clinician Unavail able SANDRO RAMIREZ Attending Clinician Unavail able Corbin IRBY, Sandro Nickerson Attending Clinician [phone] Raudel PAYNE, Ketty Barry Attending Clinician Unavailable WAYNE ZAPATA Attending Clinician Unavailable WAYNE ZAPATA Attending Clinician Unavailable Wayne Zapata DO Attending Clinician [phone] Ron Hoover MD Attending Clinician [phone] La Nena Hamm Attending Clinician +[phone] Joselo PAYNE, Jayashree Barry Attending Clinician Unavail able DONAVON BROWN Attending Clinician Unavailab yannick Calvillo MD, Juan Cook Attending Clinician [phone] Anita Arroyo DO Attending Clinician [phone] Donavon Brown MD Attending Clinician [phone] APRIL HERNANDEZ Attending Clinician Unavailable APRIL HERNANDEZ Attending Clinician Unavailable April Sanchez Attending Clinician [phone] Darrion IRBY, Andi Attending Clinician [phone] Krishan Macias MD Attending Clinician [phone] Halina Vegas MD Attending Clinician [phone] Pat Styles Attending Clinician +[phone] Jace IRBY, Allyson Attending Clinician [phone] Michelle Olmstead LCSW Attending Clinician [phone] PAT OCHOA Attending Clinician Unavailable Pob, [facility] Main Attending Clinician Unavailabl e Doctor Unassigned, Adwolf Attending Clinician U navailable [place] Rosalva NAVARRO Attending Clinician [phone] 2, [facility] Attending Clinician Unavailable Supa IRBY, Krishan Attending Clinician +[phone] Donovan IRBY, Lasha Hensley Attending Clinician [phone] IDALIA HART Attending Clinician Unavailab yannick Medina RN, Deandra Barry Attending Clinician Unav ailbushra Shah LMSW, Debbie Cook Attending Clinician Unava ilRILEY Henley Admitting Clinician Unavailable LYNN DOLL Admitting Clinician Unavailable MARGOTH RAMACHANDRAN Admitting Clinician Unavailable ARIADNE LASSITER Admitting Clinician Unavailab Ariadne Moss MD Admitting Clinician +[phone] Adela Ward DO Admitting Clinician [phone] ADELA WARD Admitting Clinician Unavailable ALEX BLANCHARD Admitting Clinician UnavailMINDY Porter Admitting Clinician Unavailable Mindy Andino MD Admitting Clinician [phone] JHONY MADDEN Admitting Clinician Unavailable Jhony Madden MD Admitting Clinician [phone] ANITA ARROYO Admitting Clinician Unavailable Anita Arroyo DO Admitting Clinician [phone] RON HOOVER Admitting Clinician Unavailable Payers Payer Name Policy Type Policy Number Effective Date Expirati on Date Source FRIEDA MONTERO [facility] [id number] 2023 00:00:00 [place] [id number] 2024 00:00:00 Problems Condition Name Condition Details Condition Category Status Onset Date Resolution Date Last Treatment Date Treating Clinician Comments Source S/P PTCA (percutane ous translumin al coronary angioplast y) S/P PTCA (percutane ous translumin al coronary angioplast y) Disease Active 02-22 00:00: 00 [facility] Dizziness and giddiness Dizziness and giddiness Disease Active 02-22 00:00: 00 [facility] 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 angina pectoris Disease Active 4-21 00:00: 00 [facility] Chest pain Chest pain Disease Active 4-14 00:00: 00 [facility] Encounter for screening colonoscop y Encounter for screening colonoscop y Disease Active 1-17 00:00: 00 [facility] Atheroscle rosis of abdominal aorta Atheroscle rosis of abdominal aorta Disease Active 1-13 00:00: 00 [facility] 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, 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, with long-term current use of insulin Disease Active 1-13 00:00: 00 [facility] 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 Disease Active 1-13 00:00: 00 [facility] Urinary retention Urinary retention Disease Active 2023-10 017 00:00: 00 [facility] Benign prostatic hyperplasi a with urinary frequency Benign prostatic hyperplasi a with urinary frequency Disease Active 2023-10 017 00:00: 00 [facility] HFrEF (heart failure with reduced ejection fraction) HFrEF (heart failure with reduced ejection fraction) Disease Active 07-18 00:00: 00 [facility] PFO (patent foramen ovale) PFO (patent foramen ovale) Disease Active 07-18 00:00: 00 [facility] Numbness and tingling of right arm Numbness and tingling of right arm Disease Active 9-12 00:00: 00 [facility] Cerebrovas cular accident (CVA), unspecifie d mechanism Cerebrovas cular accident (CVA), unspecifie d mechanism Disease Active 8- 00:00: 00 [facility] Black-out (not amnesia) Black-out (not amnesia) Disease Active 8- 00:00: 00 [facility] Stenosis of carotid artery, unspecifie d laterality Stenosis of carotid artery, unspecifie d laterality Disease Active 8 00:00: 00 [facility] Dependent on walker for ambulation Dependent on walker for ambulation Disease Active 8 00:00: 00 [facility] Rash and nonspecifi c skin eruption Rash and nonspecifi c skin eruption Disease Active 8 00:00: 00 [facility] Multiple falls Multiple falls Disease Active 8 00:00: 00 [facility] Carotid stenosis, bilateral Carotid stenosis, bilateral Disease Active 5-16 00:00: 00 [facility] Syncope and collapse Syncope and collapse Disease Active 5 00:00: 00 [facility] Type 2 diabetes mellitus, with long-term current use of insulin Type 2 diabetes mellitus, with long-term current use of insulin Disease Active 01-03 00:00: 00 [facility] Hyperlipid emia, unspecifie d hyperlipid emia type Hyperlipid emia, unspecifie d hyperlipid emia type Disease Active 3- 00:00: 00 [facility] Essential hypertensi on Essential hypertensi on Disease Active 3-04 00:00: 00 [facility] Coronary artery disease without angina pectoris, unspecifie d vessel or lesion type, unspecifie d whether catawba or transplant ed heart Coronary artery disease without angina pectoris, unspecifie d vessel or lesion type, unspecifie d whether [place] or transplant ed heart Disease Active 3-04 00:00: 00 [facility] At risk for falls At risk for falls Disease Active 2- 00:00: 00 [facility] Unspecifie d abnormalit ies of gait and mobility Unspecifie d abnormalit ies of gait and mobility Disease Active 2-02 00:00: 00 [facility] Chronic systolic (congestiv e) heart failure Chronic systolic (congestiv e) heart failure Disease Active 3- 00:00: 00 [facility] Ischemic cardiomyop athy Ischemic cardiomyop athy Disease Active 3- 00:00: 00 [facility] Nephrolith iasis Nephrolith iasis Disease Active 3- 00:00: 00 [facility] 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, 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, with long-term current use of insulin Disease Active 3 00:00: 00 [facility] Suicide ideation Suicide ideation Disease Active 2 00:00: 00 [facility] Acute UTI Acute UTI Disease Resolve d 2023-10 0-30 00:00: 00 2025-02-06 00:00:00 2025-02-06 08:44:04 [facility] Bilateral carotid artery stenosis Bilateral carotid artery stenosis Disease Resolve d 3- 00:00: 00 2025-02-06 00:00:00 2025-02-06 08:44:04 [facility] Severe episode of recurrent major depressive disorder, 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, without psychotic features Disease Resolve d 2- 00:00: 00 2025-02-06 00:00:00 2025-02-06 08:55:04 [facility] HFrEF (heart failure with reduced ejection fraction) HFrEF (heart failure with reduced ejection fraction) Disease Resolve d 3- 00:00: 00 2024-06-13 00:00:00 2024-06-13 11:23:48 [facility] Allergies, Adverse Reactions, Alerts Allergy Name Allergy Type Status Severity Reaction(s) Onset Date Inactive Date Treating Clinician Comments Source MORPHINE DRUG INGREDI Active Unknown-Cmnt 2- 00:00: 00 [facility] EMPAGLIF LOZIN DRUG INGREDI Active Unknown-Cmnt 2- 00:00: 00 [facility] Empaglif lozin Propensi ty to adverse reaction s Active Unknown - See comments 2- 00:00: 00 [facility] Morphine Propensi ty to adverse reaction s Active Unknown - See comments 2- 00:00: 00 [facility] NO KNOWN ALLERGIE S Drug Class Active [facility] Family History Family Member Diagnosis Comments Start Date Stop Date Sourc e Natural father Coronary Heart Disease [facility] Natural father Heart Unive [facility] Hy[facility] mother Cancer Unive [facility] Natural mother Coronary Heart Disease [facility] Natural mother Diabetes Unive [facility] Natural mother Hypertension Un [facility] Natural sister Diabetes Unive [facility] Social History Social Habit Start Date Stop Date Quantity Comments Source History of tobacco use Cigarette Smoker [facility] Sexual orientation U nivFormerly [facility] Alcoholic beverage intake 2025-05-25 00:00:00 2025-05-25 00:00:00 Lifetime non-drinker (finding) [facility] Tobacco use and exposure 2025-02-06 00:00:00 2025-02-06 00:00:00 Smokeless tobacco non-user [facility] History of Social function 2024-05-26 00:00:00 2024-05-26 00:00:00 [facility] Alcohol intake 2023-12-29 00:00:00 2023-12-29 00:00:00 Lifetime non-drinker (finding) [facility] Sex assigned at 1955 00:00:00 1955 00:00:00 [facility] Smoking Status Start Date Stop Date Source Tobacco smoking consumption unknown [facility] Ex-smoker 2025-02-06 00:00:00 2025-02-06 00:00:00 [facility] Medications Ordered Medication Name Filled Medication Name Start Date Stop Date Current Medication? Ordering Clinician Indication Dosage Frequency Signature (SIG) Comments Components Source METFORMIN 500 mg tablet 06-19 00:00: 00 Yes [id number] TAKE 1 TABLET BY MOUTH IN THE MORNING AND IN THE EVENING WITH MEALS [facility] Insulin [place], Disposable, (BD ULTRAFINE III MINI PEN) 31 gauge x 3/16" Ndle 06-19 00:00: 00 06-19 00:00 :00 Yes [id number] Use as directed [facility] dulaglutide (TRULICITY) 1.5 mg/0.5 mL PnIj 06-16 00:00: 00 Yes [id number] 1.5mg Inject 1 pen under the skin weekly. [facility] atorvastati n 20 mg tablet 05-08 00:00: 00 05-25 00:00 :00 No [id number] 20mg Take 1 tablet by mouth at bedtime. [facility] rosuvastati n 5 mg tablet 04-25 00:00: 00 Yes 5mg Take 1 tablet by mouth every evening. [facility] rosuvastati n 5 mg CpSP 04-20 00:00: 00 05-08 00:00 :00 No [id number] 5mg Take 5 mg by mouth every evening. [facility] Insulin Glargine 100 unit/mL (3 mL) injection 04-19 00:00: 00 Yes [id number] 25U inject 25 Units under the skin every morning. [facility] cephALEXin (KEFLEX) capsule 500 mg 03-31 13:00: 00 04-07 12:59 :00 Yes 500mg 500 mg, Oral, BID, 14 doses, First dose on Thu03/31/25 at 0800, Last dose on Thu04/06/25 at 2000, DAVID, Reason for Anti-Infec tive: Documented Infection, Documented Infection Site: Urine, Duration of therapy: 7 days [facility] isosorbide mononitrate 30 mg 24 hr tablet 03-31 00:00: 00 05-25 00:00 :00 No [id number] 30mg Take 1 tablet by mouth in the morning. [facility] cephALEXin 500 mg capsule 03-31 00:00: 00 04-08 04:59 :00 No [id number] 500mg Take 1 capsule by mouth in the morning and 1 capsule in the evening. Do all this for 7 days. [facility] insulin glargine (LANTUS U-100) injection 27 Units insulin glargine (LANTUS U-100) injection 27 Units 03-30 14:00: 00 03-30 22:36 :32 Yes 27U 27 Units, Subcutaneo us, DAILY, First dose (after last modificati on) on Thu03/30/25 at 0900, Until Discontinu ed [facility] insulin lispro (human) (HumaLOG U-100) injection 9 Units insulin lispro (human) (HumaLOG U-100) injection 9 Units 03-29 17:00: 00 03-30 22:36 :32 Yes 9U 9 Units, Subcutaneo us, TID MEALS, First dose (after last modificati on) on Thu03/29/25 at 1200, Until Discontinu ed, Routine [facility] magnesium sulfate in water 4 gram/50 mL (8 %) IV Piggyback 4 g 03-29 12:15: 00 03-29 15:52 :00 No 4g 4 g, Intravenou s, ONCE, 1 dose, On Thu03/29/25 at 0715, 50 mL [facility] ramelteon (ROZEREM) tablet 8 mg ramelteon (ROZEREM) tablet 8 mg 03-29 08:30: 00 03-30 22:36 :32 Yes 8mg 8 mg, Oral, QHS, First dose on Thu03/29/25 at 0330, Until Discontinu ed, Routine [facility] dextrometho rphan-guaif enesin (ROBITUSSIN DM) 10-100 mg/5 mL solution 10 mL dextrometho rphan-guaif enesin (ROBITUSSIN DM) 10-100 mg/5 mL solution 10 mL 03-29 08:30: 00 03-30 22:36 :32 Yes 10mL 10 mL, Oral, Q6HPRN, Starting on Thu03/29/25 at 0330, Until Thu03/30/25 at 1736, Routine, Cough [facility] benzonatate (TESSALON PERLES) capsule 100 mg benzonatate (TESSALON PERLES) capsule 100 mg 03-29 08:21: 29 03-30 22:36 :32 Yes 100mg 100 mg, Oral, Q8HPRN, Starting on Thu03/29/25 at 0321, Until Thu03/30/25 at 1736, Routine, Cough [facility] insulin lispro (human) (HumaLOG U-100) injection 5 Units insulin lispro (human) (HumaLOG U-100) injection 5 Units 03-29 02:45: 00 03-29 01:58 :00 Yes 5U 5 Units, Subcutaneo us, ONCE, 1 dose, On Thu03/28/25 at 2145, Routine [facility] Sliding Scale Insulin - Lispro (HumaLOG) [id number] 6-04 02:00: 00 03-29 15:16 :06 Yes Subcutaneo us, TID MEALS+HS, First dose (after last modificati on) on Thu03/28/25 at 2100, Until Discontinu ed, Routine [facility] lactated ringers IV infusion 500 mL 03-28 23:00: 00 03-28 23:09 :00 No 500mL at 125 mL/hr, 500 mL, Intravenou s, ONCE, 1 dose, On Thu03/28/25 at 1800, Routine [facility] cefTRIAXone (ROCEPHIN) 1,000 mg in sterile water for injection 10 mL IV Push cefTRIAXone (ROCEPHIN) 1,000 mg in sterile water for injection 10 mL IV Push 03-28 20:30: 00 03-30 20:35 :48 Yes 1000mg 1,000 mg, Intravenou s, Q24H ABX, 5 doses, First dose on Thu03/28/25 at 1530, Last dose on Thu04/01/25 at 1530, 10 mL, Reason for Anti-Infec tive: Documented Infection, Documented Infection Site: Urine, Duration of therapy: Other (days), Other (days): 5 [facility] insulin glargine (LANTUS U-100) injection 22 Units insulin glargine (LANTUS U-100) injection 22 Units 03-28 14:00: 00 03-29 15:12 :24 Yes 22U 22 Units, Subcutaneo us, DAILY, First dose (after last modificati on) on Thu03/28/25 at 0900, Until Discontinu ed [facility] insulin lispro (human) (HumaLOG U-100) injection 5 Units insulin lispro (human) (HumaLOG U-100) injection 5 Units 03-28 13:00: 00 03-29 15:12 :24 Yes 5U 5 Units, Subcutaneo us, TID MEALS, First dose (after last modificati on) on Thu03/28/25 at 0800, Until Discontinu ed, Routine [facility] magnesium sulfate in water 2 gram/50 mL (4 %) infusion 2 g magnesium sulfate in water 2 gram/50 mL (4 %) infusion 2 g 03-28 11:45: 00 03-28 12:29 :00 Yes 2g 2 g, Intravenou s, ONCE, 1 dose, On Thu03/28/25 at 0645, 50 mL [facility] insulin lispro (human) (HumaLOG U-100) injection 5 Units insulin lispro (human) (HumaLOG U-100) injection 5 Units 03-28 04:16: 00 03-28 04:29 :00 Yes 5U 5 Units, Subcutaneo us, ONCE, 1 dose, On Thu03/27/25 at 2330, Routine [facility] insulin glargine (LANTUS U-100) injection 18 Units insulin glargine (LANTUS U-100) injection 18 Units 03-28 00:15: 00 03-28 12:43 :25 Yes 18U 18 Units, Subcutaneo us, DAILY, First dose (after last modificati on) on Thu03/27/25 at 1915, Until Discontinu ed [facility] enoxaparin (LOVENOX) injection 40 mg enoxaparin (LOVENOX) injection 40 mg 03-27 22:00: 00 03-30 22:36 :32 Yes 40mg 40 mg, Subcutaneo us, DAILY AT 1700, First dose on Thu03/27/25 at 1700, Until Discontinu ed, Routine [facility] benzonatate (TESSALON PERLES) capsule 100 mg benzonatate (TESSALON PERLES) capsule 100 mg 03-27 18:00: 00 03-29 10:59 :00 Yes 100mg 100 mg, Oral, Q8H, 6 doses, First dose (after last modificati on) on Thu03/27/25 at 1300, Last dose on Thu03/28/25 at 2200, Routine [facility] dextrometho rphan-guaif enesin (ROBITUSSIN DM) 10-100 mg/5 mL solution 5 mL dextrometho rphan-guaif enesin (ROBITUSSIN DM) 10-100 mg/5 mL solution 5 mL 03-27 18:00: 00 03-29 08:23 :26 Yes 5mL 5 mL, Oral, Q6H, 8 doses, First dose (after last modificati on) on Thu03/27/25 at 1300, Last dose on Thu03/29/25 at 0600, Routine [facility] azithromyci n (ZITHROMAX) tablet 500 mg azithromyci n (ZITHROMAX) tablet 500 mg 03-27 17:45: 00 03-29 13:46 :00 Yes 500mg 500 mg, Oral, DAILY, 3 doses, First dose on Thu03/27/25 at 1245, Last dose on Thu03/29/25 at 0900, Routine, Reason for Anti-Infec tive: Empiric Therapy for Suspected Infection, Empiric Therapy Site: Respirator y, Duration of therapy: 3 days [facility] isosorbide mononitrate (IMDUR) 24 hr tablet 30 mg isosorbide mononitrate (IMDUR) 24 hr tablet 30 mg 03-27 15:45: 00 Yes 30mg 30 mg, Oral, DAILY, First dose on Thu03/27/25 at 1045, Until Discontinu ed, [facility]rometho rphan-guaif enesin (ROBITUSSIN DM) 10-100 mg/5 mL solution 5 mL dextrometho rphan-guaif enesin (ROBITUSSIN DM) 10-100 mg/5 mL solution 5 mL 03-27 15:36: 48 03-27 17:45 :53 Yes 5mL 5 mL, Oral, Q6HPRN, Starting on Thu03/27/25 at 1036, Until Thu03/27/25 at 1245, Routine, Cough [facility] benzonatate (TESSALON PERLES) capsule 100 mg benzonatate (TESSALON PERLES) capsule 100 mg 03-27 15:36: 20 03-27 17:45 :53 Yes 100mg 100 mg, Oral, Q8HPRN, Starting on Thu03/27/25 at 1036, Until Thu03/27/25 at 1245, Routine, Cough [facility] rosuvastati n (CRESTOR) tablet 5 mg rosuvastati n (CRESTOR) tablet 5 mg 03-27 14:00: 00 03-30 22:36 :32 Yes 5mg 5 mg, Oral, DAILY, First dose (after last modificati on) on Thu03/27/25 at 0900, Until Discontinu ed [facility] polyethylen e glycol 3350 powder 17 g polyethylen e glycol 3350 powder 17 g 03-27 14:00: 00 03-30 22:36 :32 Yes 17g 17 g, Oral, DAILY, First dose on Thu03/27/25 at 0900, Until Discontinu ed, Routine [facility] sennosides- docusate sodium (SENOKOT-S) 8.6-50 mg per tablet 1 tablet sennosides- docusate sodium (SENOKOT-S) 8.6-50 mg per tablet 1 tablet 03-27 14:00: 00 03-30 22:36 :32 Yes 1{tbl} 1 tablet, Oral, DAILY, First dose on Thu03/27/25 at 0900, Until Discontinu ed, Routine [facility] spironolact one (ALDACTONE) tablet 12.5 mg spironolact one (ALDACTONE) tablet 12.5 mg 03-27 14:00: 00 03-30 22:36 :32 Yes 12.5mg 12.5 mg, Oral, DAILY, First dose on Thu03/27/25 at 0900, Until Discontinu ed, Routine [facility] metoprolol succinate XL (TOPROL XL) tablet 25 mg metoprolol succinate XL (TOPROL XL) tablet 25 mg 03-27 14:00: 00 03-30 22:36 :32 Yes 25mg 25 mg, Oral, DAILY, First dose on Thu03/27/25 at 0900, Until Discontinu ed, Routine [facility] ezetimibe (ZETIA) tablet 10 mg ezetimibe (ZETIA) tablet 10 mg 03-27 14:00: 00 03-30 22:36 :32 Yes 10mg 10 mg, Oral, DAILY, First dose on Thu03/27/25 at 0900, Until Discontinu ed, Routine [facility] aspirin EC tablet 81 mg aspirin EC tablet 81 mg 03-27 14:00: 00 03-30 22:36 :32 Yes 81mg 81 mg, Oral, DAILY, First dose on Thu03/27/25 at 0900, Until Discontinu ed [facility] ticagrelor (BRILINTA) tablet 90 mg ticagrelor (BRILINTA) tablet 90 mg 03-27 13:00: 00 03-30 22:36 :32 Yes 90mg 90 mg, Oral, BID, First dose on Thu03/27/25 at 0800, Until Discontinu ed, [facility] tamsulosin (FLOMAX) capsule 0.4 mg tamsulosin (FLOMAX) capsule 0.4 mg 03-27 13:00: 00 03-30 22:36 :32 Yes .4mg 0.4 mg, Oral, BID, First dose on Thu03/27/25 at 0800, Until Discontinu ed, Routine [facility] sacubitriL- valsartan (ENTRESTO) 24-26 mg tablet 0.5 tablet sacubitriL- valsartan (ENTRESTO) 24-26 mg tablet 0.5 tablet 03-27 13:00: 00 03-30 22:36 :32 Yes .5{tbl} 0.5 tablet, Oral, BID, First dose on Thu03/27/25 at 0800, Until Discontinu ed, Routine [facility] insulin lispro (human) (HumaLOG U-100) injection 4 Units insulin lispro (human) (HumaLOG U-100) injection 4 Units 03-27 13:00: 00 03-28 12:43 :25 Yes 4U 4 Units, Subcutaneo us, TID MEALS, First dose on Thu03/27/25 at 0800, Until Discontinu ed, Routine [facility] [facility] sulfate in water 4 gram/50 mL (8 %) IV Piggyback 4 g magnesium sulfate in water 4 gram/50 mL (8 %) IV Piggyback 4 g 03-27 07:45: 00 03-27 09:13 :00 Yes 4g 4 g, Intravenou s, ONCE, 1 dose, On Thu03/27/25 at 0245, 50 mL [facility] glucagon HCL injection 1 mg 03-27 05:45: 53 03-30 22:36 :32 No 1mg 1 mg, Intramuscu lar, PRN, Starting on Thu03/27/25 at 0045, Until Jennifer 03/30/25 at 1736, DAVID, Low blood sugar, Blood Glucose < or = 70 mg/dL and patient is NPO, unable to swallow or has mental changes. [facility] dextrose 50 % in water (D50W) injection 25 mL 03-27 05:45: 53 03-30 22:36 :32 No 25mL 25 mL, Slow IV Push, PRN, Starting on Thu03/27/25 at 0045, Until Jennifer 03/30/25 at 1736, DAVID, Blood Glucose < or = 70 mg/dL and patient is NPO, unable to swallow or has mental status changes. [facility] acetaminoph en (TYLENOL) tablet 650 mg acetaminoph en (TYLENOL) tablet 650 mg 03-27 05:44: 55 03-30 22:36 :32 Yes 650mg 650 mg, Oral, Q6HPRN, Starting on Thu03/27/25 at 0044, Until Thu03/30/25 at 1736, Routine, Pain (scale 1-3) [facility] nitroglycer in (NITROSTAT) sublingual tablet 0.4 mg 03-27 05:41: 56 03-30 22:36 :32 No .4mg [facility] metFORMIN 500 mg tablet 03-24 00:00: 00 Yes [id number] 500mg Take 1 tablet by mouth in the morning and 1 tablet in the evening. Take with meals. [facility] sacubitriL- valsartan (ENTRESTO) 24-26 mg tablet 02-22 00:00: 00 Yes [id number] .5{tbl} Take 0.5 tablets by mouth in the morning and 0.5 tablets in the evening. [facility] spironolact one 25 mg tablet 02-22 00:00: 00 Yes [id number] 12.5mg Take 0.5 tablets by mouth in the morning. [facility] ticagrelor 90 mg tablet 02-22 00:00: 00 Yes [id number] 90mg Take 1 tablet by mouth in the morning and 1 tablet in the evening. [facility] nitroglycer in 0.4 mg sublingual tablet 02-22 00:00: [address] 1 tablet under the tongue every 5 (five) minutes as needed for Chest pain. [facility] tamsulosin 0.4 mg 24 hr capsule 02-20 00:00: 00 02-20 00:00 :00 No [id number] 9102 .4mg Take 1 capsule by mouth in the morning and 1 capsule in the evening. [facility] rosuvastati n (CRESTOR) tablet 5 mg rosuvastati n (CRESTOR) tablet 5 mg 02-14 22:00: 00 02-15 00:25 :07 No 5mg 5 mg, Oral, QPM, First dose (after last modificati on) on Thu02/14/25 at 1700, Until Discontinu ed [facility] Potassium Bicarb-Citr ic Acid (EFFER-K) effervescen t tablet 40 mEq Potassium Bicarb-Citr ic Acid (EFFER-K) effervescen t tablet 40 mEq 02-14 14:00: 00 02-15 00:25 :07 No 40meq 40 mEq, Oral, DAILY, First dose on Thu02/14/25 at 0900, Until Discontinu ed, Routine [facility] magnesium sulfate in water 4 gram/50 mL (8 %) IV Piggyback 4 g magnesium sulfate in water 4 gram/50 mL (8 %) IV Piggyback 4 g 02-14 13:15: 00 02-14 16:14 :00 No 4g 4 g, IV Piggyback, at 25 mL/hr Administer over 120 Minutes, ONCE, 1 dose, On Thu02/14/25 at 0815, Routine [facility] Sliding Scale Insulin - Lispro (HumaLOG) [id number] 4-22 04:30: 00 02-15 00:25 :07 No Subcutaneo us, TID MEALS+HS, First dose on Thu02/13/25 at 2330, Until Discontinu ed, Routine [facility] glucagon HCL injection 1 mg 02-14 04:15: 20 02-15 00:25 :07 No 1mg 1 mg, Intramuscu lar, PRN, Starting on Thu02/13/25 at 2315, Until Thu02/14/25 at 1925, DAVID, Low blood sugar, Blood Glucose < or = 70 mg/dL and patient is NPO, unable to swallow or has mental changes. [facility] dextrose 50 % in water (D50W) injection 25 mL 02-14 04:15: 20 02-15 00:25 :07 No 25mL 25 mL, Slow IV Push, PRN, Starting on Thu02/13/25 at 2315, Until Thu02/14/25 at 1925, DAVID, Blood Glucose < or = 70 mg/dL and patient is NPO, unable to swallow or has mental status changes. [facility] ticagrelor (BRILINTA) tablet 90 mg ticagrelor (BRILINTA) tablet 90 mg 02-14 01:00: 00 Yes 90mg 90 mg, Oral, BID, First dose on Thu02/13/25 at 2000, Until Discontinu ed, Routine, CV Recovery to Floor [facility] evolocumab 140 mg/mL evolocumab 140 mg/mL 02-14 00:00: 00 05-25 00:00 :00 No [id number] 140mg inject 1 mL under the skin every 2 (two) weeks. [facility] ticagrelor 90 mg tablet ticagrelor 90 mg tablet 02-14 00:00: 00 02-22 00:00 :00 No [id number] 90mg Take 1 tablet by mouth in the morning and 1 tablet in the evening. [facility] spironolact one 25 mg tablet spironolact one 25 mg tablet 02-14 00:00: 00 02-22 00:00 :00 No [id number] 12.5mg Take 0.5 tablets by mouth in the morning for 30 days. [facility] sacubitriL- valsartan (ENTRESTO) 24-26 mg tablet sacubitriL- valsartan (ENTRESTO) 24-26 mg tablet 02-14 00:00: 00 02-22 00:00 :00 No [id number] 1{tbl} Take 1 tablet by mouth in the morning and 1 tablet in the evening. Do all this for 30 days. [facility] dapaglifloz in propanediol (FARXIGA) 10 mg tablet dapaglifloz in propanediol (FARXIGA) 10 mg tablet 02-14 00:00: 00 02-14 00:00 :00 No [id number] 10mg Take 1 tablet by mouth in the morning for 30 days. [facility] iopamidol (ISOVUE 370-500 mL) injection 02-13 21:18: 14 02-13 21:32 :52 No ONCE INTRA PROCEDURE, Starting on Thu02/13/25 at 1618, Until Thu02/13/25 at 1632, Routine, CV Intraproce dure [facility] ticagrelor (BRILINTA) tablet 02-13 21:17: 26 02-13 21:32 :52 No ONCE INTRA PROCEDURE, Starting on Thu02/13/25 at 1617, Until Thu02/13/25 at 1632, Routine, CV Intraproce dure [facility] tirofiban (AGGRASTAT CONCENTRATE ) injection 02-13 21:11: 27 02-13 21:32 :52 No ONCE INTRA PROCEDURE, Starting on Thu02/13/25 at 1611, Until Thu02/13/25 at 1632, Routine, CV Intraproce dure [facility] adenosine 1.5 mg/250 mL INTRACORONA RY injection for [employer] 02-13 21:06: 42 02-13 21:32 :52 No ONCE INTRA PROCEDURE, Starting on Thu02/13/25 at 1606, Until Thu02/13/25 at 1632, Routine, CV Intraproce dure [facility] heparin 1,000 unit/mL injection 02-13 20:54: 38 02-13 21:32 :52 No ONCE INTRA PROCEDURE, Starting on Thu02/13/25 at 1554, Until Thu02/13/25 at 1632, Routine, CV Intraproce dure [facility] FENTanyl (PF) (SUBLIMAZE) injection 02-13 20:30: 23 02-13 21:32 :52 No ONCE INTRA PROCEDURE, Starting on Thu02/13/25 at 1530, Until Thu02/13/25 at 1632, Routine, CV Intraproce dure [facility] midazolam (VERSED) 1 mg/mL injection 02-13 20:29: 37 02-13 21:32 :52 No ONCE INTRA PROCEDURE, Starting on Thu02/13/25 at 1529, Until Thu02/13/25 at 1632, Routine, CV Intraproce dure [facility] lidocaine 1% (PF) (XYLOCAINE) injection 02-13 20:24: 20 02-13 21:32 :52 No ONCE INTRA PROCEDURE, Starting on Thu02/13/25 at 1524, Until Thu02/13/25 at 1632, Routine, CV Intraproce dure [facility] perflutren protein-A microsphr (OPTISON) injection 3 mL 02-13 16:45: 00 02-13 16:45 :00 No [id number] 3mL 3 mL, IV Push, ONCE, 1 dose, On Thu02/13/25 at 1145, Routine [facility] metoprolol succinate XL (TOPROL XL) tablet 25 mg metoprolol succinate XL (TOPROL XL) tablet 25 mg 02-13 14:00: 00 02-15 00:25 :06 No 25mg 25 mg, Oral, DAILY, First dose on Thu02/13/25 at 0900, Until Discontinu ed, Routine [facility] insulin glargine (LANTUS U-100) injection 25 Units insulin glargine (LANTUS U-100) injection 25 Units 02-13 14:00: 00 02-15 00:25 :06 No 25U 25 Units, Subcutaneo us, DAILY, First dose on Thu02/13/25 at 0900, Until Discontinu ed [facility] ezetimibe (ZETIA) tablet 10 mg ezetimibe (ZETIA) tablet 10 mg 02-13 14:00: 00 02-15 00:25 :06 No 10mg 10 mg, Oral, DAILY, First dose on Thu02/13/25 at 0900, Until Discontinu ed, Routine [facility] aspirin chewable tablet 81 mg aspirin chewable tablet 81 mg 02-13 14:00: 00 02-15 00:25 :06 No 81mg 81 mg, Oral, DAILY, First dose on Thu02/13/25 at 0900, Until Discontinu ed [facility] insulin lispro (human) (HumaLOG U-100) injection 3 Units insulin lispro (human) (HumaLOG U-100) injection 3 Units 02-13 12:30: 00 02-15 00:25 :06 No 3U 3 Units, Subcutaneo us, TIDAC, First dose on Thu02/13/25 at 0730, Until Discontinu ed, Routine [facility] magnesium sulfate in water 2 gram/50 mL (4 %) infusion 2 g magnesium sulfate in water 2 gram/50 mL (4 %) infusion 2 g 02-13 10:15: 00 02-13 10:55 :00 No 2g 2 g, IV Piggyback, Administer over 60 Minutes, ONCE, 1 dose, On Thu02/13/25 at 0515, Routine [facility] magnesium sulfate in water 2 gram/50 mL (4 %) infusion 2 g magnesium sulfate in water 2 gram/50 mL (4 %) infusion 2 g 02-13 03:45: 00 02-13 04:12 :00 No 2g 2 g, IV Piggyback, Administer over 60 Minutes, ONCE, 1 dose, On Thu02/12/25 at 2245, Routine [facility] KCL 20 mEq/15 mL solution 40 mEq KCL 20 mEq/15 mL solution 40 mEq 02-13 03:45: 00 02-13 03:07 :00 No 40meq 40 mEq, Oral, ONCE, 1 dose, On Thu02/12/25 at 2245, Routine [facility] aspirin E.C. (ECOTRIN) tablet 325 mg aspirin E.C. (ECOTRIN) tablet 325 mg 02-13 02:30: 00 02-13 02:11 :00 No 325mg 325 mg, Oral, ONCE NOW, 1 dose, On Thu02/12/25 at 2130, DAVID [facility] tamsulosin (FLOMAX) capsule 0.4 mg tamsulosin (FLOMAX) capsule 0.4 mg 02-13 02:15: 00 02-15 00:25 :06 No .4mg 0.4 mg, Oral, BID, First dose (after last modificati on) on Thu02/12/25 at 211, Until Discontinu ed, Routine [facility] rosuvastati n (CRESTOR) tablet 5 mg rosuvastati n (CRESTOR) tablet 5 mg 02-13 01:45: 00 02-14 12:56 :46 No 5mg 5 mg, Oral, DAILY, First dose on Thu02/12/25 at 2044, Until Discontinu ed [facility] heparin 25,000 Units/250 mL (Premixed Bag) in 0.45 % NS heparin 25,000 Units/250 mL (Premixed Bag) in 0.45 % NS 02-13 01:45: 00 02-14 14:23 :51 No 0U/h 0-2,150 Units/hr (0-21.5 mL/hr), IV Infusion, CONTINUOUS , Starting on Thu02/12/25 at 2044, Initiate infusion at 900 Units/hr (calculate d at 12 units/kg/h r, rounded to the closest 50 units) DO NOT Exceed the MAXIMUM 1,000 units/hr for initiation of heparin infusion. CAUTION - If LMWH given in ER, AVOID bolus and start next dose/drip 12 hrs after ER dosage. Must program rate using programmab le infusion pump. Check with the ordering provider first prior to any administra tion should the patient be on existing/a dditional anticoagul ant therapy. Range, Dosing and Testing: FOR [facility], [facility], AND [facility] ONLY - aPTT < 35: Bolus 5000 units, increase rate 300 units/hr - aPTT 35-44: Bolus 3000 units, increase rate 200 units/hr - aPTT 45-54: Increase rate 100 units/hr - aPTT 55-85: NO CHANGE - aPTT 86-95: Decrease rate 100 units/hr - aPTT 96-120: Hold 30 minutes, decrease rate 150 units/hr - aPTT > 120: Hold 60 minutes, decrease rate 200 units/hr Check aPTT 6 hours after initiation , then Q6H after every change, aPTT Q12H once therapeuti c levels are reached. FOR [facility] ONLY - aPTT < 40: Bolus 5000 units, increase rate 300 units/hr - aPTT 40-49: Bolus 3000 units, increase rate 200 units/hr - aPTT 50-59: Increase rate 100 units/hr - aPTT 60-85: NO CHANGE - aPTT 86-95: Decrease rate 100 units/hr - aPTT 96-120: Hold 30 minutes, decrease rate 150 units/hr - aPTT > 120: Hold 60 minutes, decrease rate 200 units/hr Check aPTT 6 hours after initiation , then Q6H after every change, aPTT Q12H once therapeuti c levels are reached. DO NOT ADJUST INITIAL BOLUS OR INITIAL INFUSION RATE. [facility] HEPARIN SODIUM (PORCINE) 1,000 UNIT/ML BOLUS ACS ORDER SET [id number] 4-21 01:45: 00 02-13 02:07 :00 No 4000U 4,000 Units, IV Push, ONCE, 1 dose, On 02/12/25 at 2045, DAVID [facility] heparin (1,000 unit/mL, 10 mL vial) for Rebolusing 02-13 01:38: 03 02-15 00:25 :06 No 3000U [facility] nitroglycer in (NITROSTAT) sublingual tablet 0.4 mg nitroglycer in (NITROSTAT) sublingual tablet 0.4 mg 02-13 01:01: 32 02-13 01:54 :00 No .4mg 0.4 mg, Sublingual , Q5MIN PRN, 3 doses, Starting on Thu02/12/25 at 2000, Until Thu02/12/25 at 2053, Routine, Chest pain [facility] acetaminoph en (TYLENOL) tablet 650 mg 02-13 00:34: 58 02-15 00:25 :06 No 650mg [facility] aspirin chewable tablet 81 mg 02-07 14:00: 00 02-06 23:17 :50 No 81mg 81 mg, Oral, DAILY, First dose on Thu02/07/25 at 0900, Until Discontinu ed, Routine [facility] enoxaparin (LOVENOX) injection 40 mg 02-06 22:00: 00 02-06 23:17 :50 No 40mg 40 mg, Subcutaneo us, DAILY, First dose on Thu02/06/25 at 1700, Until Discontinu ed, Routine [facility] perflutren protein-A microsphr (OPTISON) injection 3 mL 02-06 20:15: 00 02-06 20:15 :00 No [id number] 3mL 3 mL, IV Push, ONCE, 1 dose, On Thu02/06/25 at 1515, Routine [facility] Sliding Scale Insulin - Lispro (HumaLOG) [id number] 7532-0 4-14 17:00: 00 02-06 23:17 :50 No Subcutaneo us, TID MEALS+HS, First dose on Thu02/06/25 at 1200, Until Discontinu ed, Routine [facility] glucagon HCL injection 1 mg 02-06 16:17: 28 02-06 23:17 :50 No 1mg 1 mg, Intramuscu lar, PRN, Starting on Thu02/06/25 at 1117, Until Thu02/06/25 at 1817, DAVID, Low blood sugar, Blood Glucose < or = 70 mg/dL and patient is NPO, unable to swallow or has mental changes. [facility] dextrose 50 % in water (D50W) injection 25 mL 02-06 16:17: 28 02-06 23:17 :50 No 25mL 25 mL, Slow IV Push, PRN, Starting on Thu02/06/25 at 1117, Until Thu02/06/25 at 1817, DAVID, Blood Glucose < or = 70 mg/dL and patient is NPO, unable to swallow or has mental status changes. [facility] nitroglycer in (NITROSTAT) sublingual tablet 0.4 mg 02-06 16:12: 29 02-06 23:17 :50 No .4mg 0.4 mg, Sublingual , Q5MIN PRN, Starting on Thu02/06/25 at 1112, Until Thu02/06/25 at 1817, Routine, Chest pain [facility] acetaminoph en (TYLENOL) tablet 650 mg 02-06 16:11: 00 02-06 23:17 :50 No 650mg 650 mg, Oral, Q6HPRN, Starting on Thu02/06/25 at 1111, Until Thu02/06/25 at 1817, Routine, Pain (scale 1-3) [facility] aspirin tablet 325 mg 02-06 15:45: 00 02-06 14:50 :00 No [id number] 325mg 325 mg, Oral, ONCE, 1 dose, On Thu02/06/25 at 1045, Routine [facility] nitroglycer in (NITROSTAT) sublingual tablet 0.4 mg 02-06 15:45: 00 02-06 14:48 :00 No [id number] .4mg 0.4 mg, Sublingual , ONCE, 1 dose, On Thu02/06/25 at 1045, Routine [facility] Insulin Glargine 100 unit/mL (3 mL) injection 02-06 00:00: 00 04-19 00:00 :00 No [id number] 22U inject 22 Units under the skin at bedtime. [facility] insulin lispro (HUMALOG KWIKPEN INSULIN) 100 unit/mL pen injector 08 00:00: 00 Yes [id number] 5U inject 5 Units under the skin in the morning and 5 Units at noon and 5 Units in the evening. inject before meals. [facility] [place]ULTRA[place]LIGH [place] ROLL[place] [facility] [place]: 00 Yes [id number] R55/W19.XX XS/M79.604 /R06.02/I5 0.32/I51.7 /E11.3511: Use daily for ambulation /fall precaution (brand pending insurance approval) [facility] [place] (ULTRA-LIGH T ROLLATOR[place] [facility] [place]:00: 00 01-26 00:00 :00 No [id number] R55/W19.XX XS/M79.604 /R06.02/I5 0.32/I51.7 /E11.3511: Use daily for ambulation /fall precaution (brand pending insurance approval) [facility] flash glucose scanning reader (FREESTYLE JOSE 14 DAY READER) [facility] [place] 00:00: 00 Yes [id number] Take 1 Box in the morning and 1 Box in the evening. E11.65: check home blood glucose BID (brand approval by insurance) [facility] docusate 100 mg capsule 01-10 00:00: 00 01-26 04:59 :00 No [id number] 100mg Take 1 capsule by mouth in the morning for 15 days. [facility] cephALEXin 500 mg capsule 01-10 00:00: 00 01-18 04:59 :00 No [id number] 500mg Take 1 capsule by mouth 4 (four) times daily for 7 days. [facility] ezetimibe 10 mg tablet 12-29 00:00: 00 Yes [id number] 10mg Take 1 tablet by mouth in the morning. [facility] simethicone (GAS RELIEF (SIMETHICON E)) 40 mg/0.6 mL drops 12-28 14:57: 00 12-28 15:46 :53 No PRN, Starting on Thu12/28/24 at 0857, Until Thu12/28/24 at 0946, Routine, Intra-op [facility] lactated ringers IV infusion 1,000 mL 12-28 14:45: 00 12-28 14:43 :00 No 1000mL at 42 mL/hr, 1,000 mL, IV Infusion, ONCE, 1 dose, On Thu12/28/24 at 0845, Routine, DSU Pre-op [facility] metFORMIN 500 mg tablet 12-26 00:00: 00 03-24 00:00 :00 No [id number] 500mg Take 1 tablet by mouth in the morning and 1 tablet in the evening. Take with meals. [facility] tamsulosin 0.4 mg 24 hr capsule 12-20 00:00: 00 02-20 00:00 :00 No [id number] 9102 .4mg Take 1 capsule by mouth in the morning. [facility] metoprolol succinate XL 25 mg 24 hr tablet 18 00:00: 00 Yes [id number] 25mg Take 1 tablet by mouth in the morning. [facility] rosuvastati n 5 mg CpSP 11-21 00:00: 00 04-20 00:00 :00 No [id number] 5mg Take 5 mg by mouth every evening. [facility] levoFLOXaci n (LEVAQUIN) tablet 500 mg 11-16 23:15: 00 11-16 23:29 :00 No 500mg 500 mg, Oral, ONCE, 1 dose, On Thu11/16/24 at 1715, DAVID, Reason for Anti-Infec tive: Documented Infection, Documented Infection Site: Urine, Duration of Therapy: Once (ED) [facility] NaCl 0.9% (NS) bolus infusion 1,000 mL 11-16 22:30: 00 11-17 00:08 :00 No 1000mL at 999 mL/hr, 1,000 mL, IV Infusion, ONCE, 1 dose, On Thu11/16/24 at 1630, DAVID [facility] ondansetron 4 mg tablet 11-16 00:00: 00 12-28 00:00 :00 No [id number] 1 or 2 tablets every 8 hours as needed for nausea [facility] levoFLOXaci n 500 mg tablet 11-16 00:00: 00 11-27 05:59 :00 No [id number] 500mg Take 1 tablet by mouth every 24 (twenty-fo ur) hours for 10 days. [facility] peg-electro lyte soln 236-22.74-6 .74 -5.86 gram solution 11-11 00:00: 00 11-12 05:59 :00 No [id number] 4000mL Take 4,000 mL by mouth once now for 1 dose. [facility] insulin glargine 100 unit/mL (3 mL) inps 11-09 00:00: 00 02-06 00:00 :00 No [id number] 22U inject 22 Units under the skin every morning. [facility] insulin lispro, human, (HUMALOG U-100 INSULIN) 100 unit/mL injection 11-09 00:00: 00 01-31 00:00 :00 No [id number] 5U inject 5 Units under the skin 3 (three) times daily as needed for Other (hyperglyc emia). [facility] coenzyme [id number] [id number] 100-5 mg-unit capsule 2023-10 12:56: 51 Yes 1{capsu le} Take 1 capsule by mouth in the morning. [facility] Magnesium Oxide 420 mg Tab 2023-10 12:56: 51 Yes 420mg Take 1 tablet by mouth in the morning. [facility] cholecalcif sid, vitamin D3, 25 mcg (1,000 unit) tablet 2023-10 12:56: 51 Yes 1000U Take 1 tablet by mouth in the morning. [facility] Miscellaneo us Medical Supply Kit 2023-10 00:00: 00 Yes [id number] Shower head w a hose shower stool 3 wheeled electric scooter Use as directed [facility] triamcinolo ne 0.5 % cream 2023-10 15:08: 27 Yes .1% Apply 0.1 % to area(s) as needed. [facility] dulaglutide (TRULICITY) 1.5 mg/0.5 mL PnIj 2023-10 14:52: 36 06-16 00:00 :00 No 1.5mg inject 1 Pen under the skin weekly. [facility] metFORMIN 500 mg tablet 2023-10 14:52: 36 12-26 00:00 :00 No 500mg Take 1 tablet by mouth in the morning and 1 tablet in the evening. Take with meals. [facility] rosuvastati n 5 mg CpSP 2023-10 14:52: 36 11-21 00:00 :00 No 5mg Take 5 mg by mouth every evening. [facility] glipiZIDE XL 5 mg 24 hr tablet 2023-10 00:00: 00 09-07 00:00 :00 No [id number] 5mg Take 1 tablet by mouth in the morning and 1 tablet in the evening. [facility] aspirin chewable tablet 81 mg 2023-10 14:00: 00 08-26 18:54 :27 No 81mg 81 mg, Oral, DAILY, First dose (after last modificati on) on Thu08/27/24 at 0900, Until Discontinu ed, Routine [facility] insulin glargine (LANTUS U-100) injection 24 Units 2023-10 14:00: 00 08-26 18:54 :27 No 24U 24 Units, Subcutaneo us, DAILY, First dose on Thu08/26/24 at 0900, Until Discontinu ed, Routine [facility] metoprolol succinate XL 25 mg 24 hr tablet 2023-10 00:00: 00 12-12 00:00 :00 No 25mg Take 1 tablet by mouth every morning. [facility] ciprofloxac in HCl 500 mg tablet 2023-10 00:00: 00 09-01 05:59 :00 No [id number] 500mg Take 1 tablet by mouth every 12 (twelve) hours for 5 days. [facility] insulin glargine (LANTUS U-100) injection 24 Units 2023-10 20:45: 00 08-25 20:00 :00 No 24U 24 Units, Subcutaneo us, ONCE, 1 dose, On Thu08/25/24 at 1545, Routine [facility] FENTanyl (PF) (SUBLIMAZE) injection 25 mcg 2023-10 16:46: 25 08-25 17:14 :00 No 25ug 25 mcg, Slow IV Push, Q5MIN PRN, 4 doses, Starting on Jennifer 08/25/24 at 1146, Until Jennifer 08/25/24 at 1214, Routine, Pain Scale 4-6, PACU [facility] lidocaine (XYLOCAINE) 2 % jelly URO-JET 2023-10 16:26: 00 08-25 16:46 :14 No PRN, Starting on Jennifer 08/25/24 at 1126, Until Jennifer 08/25/24 at 1146, Routine, Intra-op [facility] povidone-io dine (BETADINE) 10 % solution 2023-10 15:38: 00 08-25 16:46 :14 No PRN, Starting on Thu08/25/24 at 1038, Until Jennifer 08/25/24 at 1146, Routine, Intra-op [facility] levoFLOXaci n in D5W (LEVAQUIN) 500 mg/100 mL Piggyback 500 mg 2023-10 15:15: 00 08-25 15:36 :00 No 500mg 500 mg, IV Piggyback, ONCE, 1 dose, On Jennifer 08/25/24 at 1015, Administer over 60 Minutes, 100 mL, DSU Pre-op, Reason for Anti-Infec tive: Surgical Prophylaxi s, Surgical Prophylaxi s: Other (see Comments), Duration of therapy: within 24 hours of surgery [facility] sodium chloride 0.9 % irrigation solution 2023-10 15:15: 00 08-25 16:46 :14 No PRN, Starting on Thu08/25/24 at 1015, Until Thu08/25/24 at 1146, Intra-op [facility] metoprolol succinate XL (TOPROL XL) tablet 25 mg 2023-10 14:00: 00 08-26 18:54 :27 No 25mg 25 mg, Oral, DAILY, First dose on Thu08/25/24 at 0900, Until Discontinu ed, Routine [facility] rosuvastati n (CRESTOR) tablet 5 mg 2023-10 14:00: 00 08-26 18:54 :27 No 5mg [facility] lactated ringers IV infusion 500 mL 2023-10 06:00: 00 08-25 19:57 :00 No 500mL at 50 mL/hr, 500 mL, IV Infusion, ONCE, 1 dose, On Thu08/25/24 at 0100, STAT [facility] diphenhydrA MINE (BENADRYL) tablet 25 mg 2023-10 04:54: 03 08-26 18:54 :27 No 25mg 25 mg, Oral, Q4HPRN, Starting on Thu08/24/24 at 2354, Until Thu08/26/24 at 1354, Routine, Sleep [facility] Sliding Scale Insulin - Lispro (HumaLOG) 2023-10 02:00: 00 08-26 18:54 :26 No Subcutaneo us, TID MEALS+HS, First dose on Thu08/24/24 at 2100, Until Discontinu ed, Routine [facility] glucagon HCL injection 1 mg 2023-10 01:10: 06 08-26 18:54 :26 No 1mg [facility] dextrose 50 % in water (D50W) injection 25 mL 2023-10 01:10: 06 08-26 18:54 :26 No 25mL [facility] ondansetron (ZOFRAN (PF)) injection 4 mg 2023-10 01:10: 00 08-26 18:54 :26 No 4mg 4 mg, Slow IV Push, Q6HPRN, Starting on Thu08/24/24 at 2009, Until Thu08/26/24 at 1354, Routine, Nausea and Vomiting (N/V) [facility] HYDROcodone -acetaminop hen (NORCO 5) tablet 1 tablet 2023-10 01:09: 51 08-26 18:54 :26 No 1{tbl} 1 tablet, Oral, Q6HPRN, Starting on Thu08/24/24 at 2008, Until Thu08/26/24 at 1354, Routine, Pain (scale 4-6) [facility] acetaminoph en (TYLENOL) tablet 650 mg 2023-10 01:09: 46 08-26 18:54 :26 No 650mg [facility] ceFEPIme (MAXIPIME) 2,000 mg in NaCl 0.9% (NS) 100 mL MINI-BAG 2023-10 20:00: 00 08-23 20:58 :00 No 2000mg 2,000 mg, IV Piggyback, ONCE, 1 dose, On Thu08/23/24 at 1500, Administer over 30 Minutes, 100 mL, Reason for Anti-Infec tive: Documented Infection, Documented Infection Site: Urine, Duration of Therapy: Once (ED) [facility] NaCl 0.9% (NS) bolus infusion 500 mL 2023-10 18:30: 00 08-23 19:37 :00 No 500mL at 999 mL/hr, 500 mL, IV Infusion, ONCE, 1 dose, On Thu08/23/24 at 1330, STAT [facility] rosuvastati n (CRESTOR) 5 mg tablet 2023-10 00:00: 00 08-26 00:00 :00 No [id number] 5mg Take 1 tablet by mouth in the morning. [facility] ciprofloxac in HCl 500 mg tablet 2023-10 00:00: 00 08-26 00:00 :00 No [id number] 500mg Take 1 tablet by mouth every 12 (twelve) hours for 5 days. [facility] cefTRIAXone (ROCEPHIN) 1,000 mg in water for injection, sterile 10 mL IV Push 2023-10 21:15: 00 08-15 20:55 :00 No 1000mg 1,000 mg, Intravenou s, ONCE, 1 dose, On Thu08/15/24 at 1615, 10 mL, Reason for Anti-Infec tive: Empiric Therapy for Suspected Infection, Empiric Therapy Site: Urine, Duration of therapy: Once (ED) [facility] cephALEXin 500 mg capsule 2023-10 00:00: 00 08-21 00:00 :00 No [id number] 500mg Take 1 capsule by mouth 4 (four) times daily for 7 days. [facility] iopamidol (ISOVUE 370-500 mL) injection 120 mL 2023-10 14:46: 00 08-09 14:54 :00 No [id number] 120mL 120 mL, Intravenou s, ONCE, 1 dose, On Thu08/09/24 at 1000, Routine [facility] gentamicin injection 160 mg 2023-10 14:45: 00 08-02 14:42 :00 No [id number] 160mg 160 mg, Intramuscu lar, ONCE, 1 dose, On Thu08/02/24 at 0945, DAVID, Reason for Anti-Infec tive: Surgical Prophylaxi s, Surgical Prophylaxi s: Genitourin audrey, Duration of therapy: within 24 hours of surgery [facility] aspirin 81 mg chewable tablet 07-11 00:00: 00 08-26 00:00 :00 No [id number] 81mg Take 1 tablet by mouth in the morning. [facility] gabapentin (NEURONTIN) capsule 300 mg 07-10 19:00: 00 Yes 300mg 300 mg, Oral, TID, First dose on Thu07/10/24 at 1400, Until Discontinu ed, Routine [facility] rosuvastati n (CRESTOR) tablet 5 mg 07-10 02:00: 00 Yes 5mg 5 mg, Oral, QHS, First dose (after last modificati on) on Thu07/09/24 at 2100, Until Discontinu ed, Routine [facility] insulin aspart U-100 (NOVOLOG FLEXPEN U-100 INSULIN) 100 unit/mL (3 mL) injection 07-10 00:00: 00 08-26 00:00 :00 No [id number] 10U inject 10 Units under the skin in the morning and 10 Units at noon and 10 Units in the evening. inject before meals. Inject 5 to 10 units three times a day with meals [facility] gabapentin 300 mg capsule 07-10 00:00: 00 08-23 00:00 :00 No [id number] 300mg Take 1 capsule by mouth in the morning and 1 capsule at noon and 1 capsule in the evening. [facility] aspirin chewable tablet 81 mg 07-08 22:45: 00 Yes 81mg 81 mg, Oral, DAILY, First dose on Thu07/08/24 at 1745, Until Discontinu ed, Routine [facility] perflutren lipid microsphere s (DEFINITY) injection 2 mL 07-08 21:00: 00 07-08 21:00 :00 No [id number] 2mL 2 mL, IV Push, ONCE, 1 dose, On Thu07/08/24 at 1600, Routine [facility] Saline Bubble Study 07-08 20:46: 48 Yes [id number] 6mL 6 mL, Injection, SEE-INSTRU CTIONS, Starting on Thu07/08/24 at 1546, Until Discontinu ed, Routine [facility] Saline Bubble Study 07-08 20:46: 45 Yes [id number] 6mL 6 mL, Injection, SEE-INSTRU CTIONS, Starting on Thu07/08/24 at 1546, Until Discontinu ed, Routine [facility] pioglitazon e (ACTOS) tablet 30 mg 07-08 14:00: 00 Yes 30mg 30 mg, Oral, DAILY, First dose on Thu07/08/24 at 0900, Until Discontinu ed, Routine [facility] enoxaparin (LOVENOX) injection 40 mg 07-08 14:00: 00 Yes 40mg 40 mg, Subcutaneo us, DAILY, First dose on Thu07/08/24 at 0900, Until Discontinu ed, Routine [facility] metoprolol succinate XL (TOPROL XL) tablet 25 mg 07-08 14:00: 00 Yes 25mg 25 mg, Oral, DAILY, First dose on Thu07/08/24 at 0900, Until Discontinu ed, [facility] glargine (LANTUS U-100) injection 25 Units 07-08 14:00: 00 Yes 25U 25 Units, Subcutaneo us, DAILY, First dose on Thu07/08/24 at 0900, Until [facility]continu ed [facility] Sl[facility] Insulin - Lispro (HumaLOG) 07-08 13:00: 00 Yes Subcutaneo us, TID MEALS+HS, First dose on Thu07/08/24 at 0800, Until Discontinu ed, Routine [facility] rosuvastati n (CRESTOR) tablet 5 mg 07-08 02:15: 00 07-10 00:55 :39 No 5mg 5 mg, Oral, DAILY, First dose (after last modificati on) on Thu07/07/24 at 2115, Until Discontinu ed, [facility] metFORMIN (GLUCOPHAGE ) tablet 500 mg 07-08 01:00: 00 07-09 14:05 :13 No 500mg 500 mg, Oral, BID, First dose on Thu07/07/24 at 2000, Until Discontinu ed, Routine [facility] iopamidol (ISOVUE 370-500 mL) injection 80 mL 07-08 01:00: 00 07-08 01:00 :00 No [id number] 80mL 80 mL, Intravenou s, ONCE, 1 dose, On Thu07/07/24 at 2000, Routine [facility] aspirin chewable tablet 81 mg 07-07 22:45: 00 07-08 00:39 :00 No 81mg 81 mg, Oral, ONCE NOW, 1 dose, On Thu07/07/24 at 1745, STAT [facility] glucagon HCL injection 1 mg 07-07 22:40: 58 Yes 1mg [facility] dextrose 50 % in water (D50W) injection 25 mL 07-07 22:40: 58 Yes 25mL [facility] labetaloL (NORMODYNE) 5 mg/mL injection 10 mg 07-07 22:38: 28 Yes 10mg [facility] metoprolol succinate XL 25 mg 24 hr tablet 06-20 00:00: 00 08-26 00:00 :00 No [id number] 25mg Take 1 tablet by mouth in the morning. [facility] pioglitazon e (ACTOS) 30 mg tablet 06-13 00:00: 00 07-25 00:00 :00 No [id number] 30mg Take 1 tablet by mouth in the morning. [facility] glipiZIDE XL 5 mg 24 hr tablet 06-09 00:00: 00 07-10 00:00 :00 No [id number] 5mg Take 1 tablet by mouth daily with breakfast. [facility] BD ULTRAFINE III MINI PEN 31 gauge x 3/16" Ndle 06-06 00:00: 00 08-26 00:00 :00 No USE DIRECTED 4 TIMES A DAY [facility] dulaglutide (TRULICITY) 1.5 mg/0.5 mL PnIj 06-06 00:00: 00 08-26 00:00 :00 No [id number] INJECT 1 PEN SUBCUTANEO USLY WEEKLY [facility] triamcinolo ne acetonide 0.1 % cream 06-02 00:00: 08-26 00:00 :00 No [id number] Apply to area(s) 2 (two) times daily. [facility] metoprolol succinate XL 25 mg 24 hr tablet 8-05 00:00: 00 06-20 00:00 :00 No [id number] 25mg Take 1 tablet by mouth in the morning. [facility] Insulin Glargine (LANTUS SOLOSTAR U-100 INSULIN) 100 unit/mL (3 mL) injection 05-26 00:00: 00 08-26 00:00 :00 No [id number] 24U inject 24 Units under the skin every morning. Taking 28-30 U daily Indication s: Patient recently has been taking 20 units qdaily [facility] rosuvastati n (CRESTOR) 5 mg tablet 05-26 00:00: 00 08-22 00:00 :00 No [id number] 5mg Take 1 tablet by mouth in the morning. [facility] METFORMIN 500 mg tablet 29 00:00: 00 08-26 00:00 :00 No [id number] TAKE 1 TABLET BY MOUTH IN THE MORNING AND IN THE EVENING WITH MEALS [facility] dulaglutide (TRULICITY) 1.5 mg/0.5 mL PnIj 620 00:00: 00 06-06 00:00 :00 No [id number] 1.5mg inject 1 Pen under the skin weekly. [facility] rosuvastati n (CRESTOR) 20 mg tablet 10 00:00: 00 05-26 00:00 :00 No [id number] 20mg Take 1 tablet by mouth in the morning. [facility] aspirin 81 mg chewable tablet 6-04 14:01: 42 07-06 00:00 :00 No 81mg Take 1 tablet by mouth in the morning. [facility] aspirin 81 mg chewable tablet 530 12:31: 01 Yes 81mg Take 1 tablet by mouth in the morning. [facility] docosahexae noic acid/epa (FISH OIL ORAL) 03-24 12:31: 12-28 00:00 :00 No 81mg Take by mouth. [facility] Magnesium Oxide 500 mg Cap 03-24 12:31: 08-26 00:00 :00 No Take by mouth. [facility] HYDROcodone -acetaminop hen 5-325 mg tablet 03-24 00:00: 00 04-01 04:59 :00 No [id number] 1{tbl} Take 1 tablet by mouth every 6 (six) hours as needed for Pain (scale 4-6) or Pain (scale 7-10) for up to 7 days. Indication s: acute pain [facility] Sliding Scale Insulin - Lispro (HumaLOG) 03-23 17:00: 00 Yes Subcutaneo us, TID MEALS+HS, First dose (after last modificati on) on Thu03/23/24 at 1200, Until Discontinu ed, Routine [facility] sennosides- docusate sodium (SENOKOT-S) 8.6-50 mg per tablet 1 tablet 03-23 14:00: 00 Yes 1{tbl} 1 tablet, Oral, DAILY, First dose on Thu03/23/24 at 0900, Until Discontinu ed, Routine [facility] pantoprazol e (PROTONIX) EC tablet 40 mg 03-23 14:00: 00 Yes 40mg 40 mg, Oral, DAILY, First dose on Thu03/23/24 at 0900, Until Discontinu ed, Routine, Indication for use: None of the above [facility] metoprolol succinate XL (TOPROL XL) tablet 25 mg 03-23 14:00: 00 Yes 25mg [facility] aspirin chewable tablet 81 mg 03-23 14:00: 00 Yes 81mg 81 mg, Oral, DAILY, First dose on Thu03/23/24 at 0900, Until Discontinu ed, Routine [facility] insulin glargine (LANTUS U-100) injection 30 Units 03-23 12:30: 00 Yes 30U 30 Units, Subcutaneo us, DAILY, First dose on Thu03/23/24 at 0730, Until Discontinu ed, Routine [facility] magnesium sulfate in water 2 gram/50 mL (4 %) infusion 2 g 03-23 10:45: 00 03-23 11:40 :00 No 2g 2 g, IV Piggyback, Administer over 60 Minutes, ONCE, 1 dose, On Thu03/23/24 at 0545, Routine [facility] NORepinephr ine (LEVOPHED) 4 mg/250 mL in [...] intravenou s vasopresso r at a time. [facility] albumin (ALBUTEIN 5 %) 5 % injection 12.5 g 03-23 03:30: 00 03-23 03:43 :00 No 12.5g 12.5 g, IV Infusion, ONCE, 1 dose, On Thu03/22/24 at 2230, 250 mL, Indication : SHOCK/IMPE NDING SHOCK [facility] Sliding Scale Insulin - Lispro (HumaLOG) 03-23 03:15: 00 03-23 13:05 :34 No Subcutaneo us, TID MEALS+HS, First dose (after last modificati on) on Thu03/22/24 at 2215, Until Discontinu ed, Routine [facility] rosuvastati n (CRESTOR) tablet 10 mg 03-23 02:00: 00 Yes 10mg 10 mg, Oral, QHS, First dose on Thu03/22/24 at 2100, Until Discontinu ed, Routine [facility] heparin (porcine) injection 5,000 Units 03-22 19:00: 00 Yes 5000U 5,000 Units, Subcutaneo us, Q8H, First dose on Thu03/22/24 at 1400, Until Discontinu ed, Routine [facility] insulin glargine (LANTUS U-100) injection 30 Units 03-22 18:52: 00 03-22 20:49 :00 No 30U 30 Units, Subcutaneo us, ONCE, 1 dose, On Thu03/22/24 at 1400, Routine [facility] magnesium sulfate in water 2 gram/50 mL (4 %) infusion 2 g 03-22 18:45: 00 03-22 19:36 :00 No 2g 2 g, IV Piggyback, Administer over 60 Minutes, ONCE, 1 dose, On Thu03/22/24 at 1345, Routine [facility] Sliding Scale Insulin - Lispro (HumaLOG) 03-22 17:00: 00 03-23 02:43 :52 No Subcutaneo us, TID MEALS+HS, First dose on Thu03/22/24 at 1200, Until Discontinu ed, Routine [facility] acetaminoph en (TYLENOL) tablet 1,000 mg 03-22 16:49: 59 Yes 1000mg 1,000 mg, Oral, Q8HPRN, Starting on Thu03/22/24 at 1149, Until Discontinu ed, Routine, Pain (scale 1-3) [facility] HYDROcodone -acetaminop hen (NORCO) 10-325 mg tablet 1 tablet 03-22 16:49: 34 Yes 1{tbl} 1 tablet, Oral, Q6HPRN, Starting on Thu03/22/24 at 1149, Until Discontinu ed, Routine, Pain (scale 7-10) [facility] HYDROcodone -acetaminop hen (NORCO 5) 5-325 mg tablet 1 tablet 03-22 16:48: 44 Yes 1{tbl} 1 tablet, Oral, Q6HPRN, Starting on Thu03/22/24 at 1148, Until Discontinu ed, Routine, Pain (scale 4-6) [facility] glucagon (GLUCAGEN DIAGNOSTIC KIT) injection 1 mg 03-22 16:19: 35 Yes 1mg [facility] dextrose 50 % in water (D50W) injection 25 mL 03-22 16:19: 34 Yes 25mL [facility] ondansetron (ZOFRAN (PF)) injection 4 mg 03-22 16:18: 41 Yes 4mg [facility] bupivacaine (preserv free) (SENSORCAIN E MPF) 0.25 % (2.5 mg/mL) injection 03-22 15:41: 00 03-22 16:34 :55 No PRN, Starting on Thu03/22/24 at 1041, Until Thu03/22/24 at 1134, Routine, Intra-op [facility] heparin 1,000 unit/mL injection 03-22 13:50: 00 03-22 16:34 :55 No PRN, Starting on Thu03/22/24 at 0850, Until Thu03/22/24 at 1134, Routine, Intra-op [facility] metoprolol succinate XL 25 mg 24 hr tablet 03-03 00:00: 00 05-30 00:00 :00 No [id number] 25mg Take 1 tablet by mouth in the morning. [facility] carvediloL (COREG) 12.5 mg tablet 01-28 00:00: 00 03-03 00:00 :00 No [id number] 12.5mg Take 1 tablet by mouth in the morning and 1 tablet in the evening. Take with meals. [facility] flash glucose sensor (FREESTYLE JOSE 2 SENSOR) Kit 01-03 00:00: 00 08-26 00:00 :00 No 1{kit} 1 Kit every 2 (two) weeks. [facility] dulaglutide (TRULICITY) 1.5 mg/0.5 mL PnIj 01-03 00:00: 00 04-14 00:00 :00 No [id number] 1.5mg inject 1 Pen under the skin weekly. [facility] ubidecareno ne (CO Q-10 ORAL) 15:03: 08 Yes Take by mouth. [facility] Magnesium Oxide 500 mg Cap 15:03: 08 Yes Take by mouth. [facility] aspirin 81 mg chewable tablet 15:01: 19 Yes 81mg Take 1 tablet by mouth in the morning. [facility] carvediloL (COREG) 12.5 mg tablet 15:01: 19 Yes 12.5mg Take 1 tablet by mouth in the morning and 1 tablet in the evening. Take with meals. [facility] losartan 25 mg tablet 12-11 12:23: 41 12-11 00:00 :00 No 25mg Take 1 tablet by mouth in the morning. [facility] aspirin 81 mg chewable tablet 12-11 12:23: 11 Yes 81mg Take 1 tablet by mouth in the morning. [facility] carvediloL (COREG) 12.5 mg tablet 12-11 12:23: 11 Yes 12.5mg Take 1 tablet by mouth in the morning and 1 tablet in the evening. Take with meals. [facility] Blood-Gluco se Sensor (FREESTYLE JOSE 3 SENSOR) [facility] 12-11 00:00: 00 08-26 00:00 :00 No [id number] Use as directed [facility] BD ULTRAFINE III MINI PEN 31 gauge x 3/16" Ndle 12-11 00:00: 00 06-06 00:00 :00 No USE DIRECTED 4 TIMES A DAY [facility] losartan 25 mg tablet 12-11 00:00: 00 04-04 00:00 :00 No [id number] 25mg Take 1 tablet by mouth in the morning. [facility] rosuvastati n (CRESTOR) 10 mg tablet 12-11 00:00: 00 04-04 00:00 :00 No [id number] 10mg Take 1 tablet by mouth at bedtime. [facility] dulaglutide (TRULICITY) 1.5 mg/0.5 mL PnIj 12-11 00:00: 00 01-03 00:00 :00 No [id number] 1.5mg inject 1 Pen under the skin weekly for 90 days. [facility] metFORMIN 500 mg tablet 11-27 15:49: 42 11-27 00:00 :00 No 500mg Take 1 tablet by mouth in the morning and 1 tablet in the evening. Take with meals. [facility] Insulin Glargine (LANTUS SOLOSTAR U-100 INSULIN) 100 unit/mL (3 mL) injection 11-27 15:49: 42 11-27 00:00 :00 No 20U inject 20 Units under the skin in the morning. [facility] insulin aspart U-100 (NOVOLOG FLEXPEN U-100 INSULIN) 100 unit/mL (3 mL) injection 11-27 15:49: 42 11-27 00:00 :00 No 10U inject 10 Units under the skin in the morning and 10 Units at noon and 10 Units in the evening. inject before meals. Inject 5 to 10 units three times a day with meals [facility] aspirin 81 mg chewable tablet 11-27 15:47: 56 Yes 81mg Take 1 tablet by mouth in the morning. [facility] losartan 25 mg tablet 11-27 15:47: 56 Yes 25mg Take 1 tablet by mouth in the morning. [facility] carvediloL (COREG) 12.5 mg tablet 11-27 15:47: 56 Yes 12.5mg Take 1 tablet by mouth in the morning and 1 tablet in the evening. Take with meals. [facility] carvedilol 1.25 mg/mL oral suspension 11-27 15:45: 05 11-27 00:00 :00 No 12.5mg Take 10 mL by mouth in the morning and 10 mL in the evening. Take with meals. 1 tab by mouth twice a day [facility] Insulin Glargine (LANTUS SOLOSTAR U-100 INSULIN) 100 unit/mL (3 mL) injection 11-27 00:00: 00 Yes [id number] 20U inject 20 Units under the skin in the morning. [facility] metFORMIN 500 mg tablet 11-27 00:00: 00 Yes [id number] 500mg Take 1 tablet by mouth in the morning and 1 tablet in the evening. Take with meals. [facility] insulin aspart U-100 (NOVOLOG FLEXPEN U-100 INSULIN) 100 unit/mL (3 mL) injection 11-27 00:00: 00 07-10 00:00 :00 No [id number] 10U inject 10 Units under the skin in the morning and 10 Units at noon and 10 Units in the evening. inject before meals. Inject 5 to 10 units three times a day with meals [facility] Insulin Glargine (LANTUS SOLOSTAR U-100 INSULIN) 100 unit/mL (3 mL) injection 11-27 00:00: 00 05-26 00:00 :00 No [id number] 20U inject 20 Units under the skin in the morning. [facility] Vital Signs Vital Name Observation Time Observation Value Comments S suraj Systolic blood pressure 2025-05-25 15:57:00 116 mm[Hg] [facility] Diastolic blood pressure 2025-05-25 15:57:00 65 mm[Hg] [facility] Heart rate 2025-05-25 15:57:00 82 /min [facility] Respiratory rate 2025-05-25 15:57:00 16 /min [facility] Body height 2025-05-25 15:57:00 182.9 cm [facility] Body weight 2025-05-25 15:57:00 72.167 kg [facility] BMI 2025-05-25 15:57:00 21.58 kg/m2 [facility] Oxygen saturation in Arterial blood by Pulse oximetry 2025-05-25 15:57:00 97 /min [facility] Systolic blood pressure 2025-04-19 17:54:00 104 mm[Hg] [facility] Diastolic blood pressure 2025-04-19 17:54:00 66 mm[Hg] [facility] Heart rate 2025-04-19 17:54:00 78 /min [facility] Body temperature 2025-04-19 17:54:00 36.11 Mera [facility] Respiratory rate 2025-04-19 17:54:00 18 /min [facility] Body height 2025-04-19 17:54:00 182.9 cm [facility] Body weight 2025-04-19 17:54:00 71.578 kg [facility] BMI 2025-04-19 17:54:00 21.40 kg/m2 [facility] Oxygen saturation in Arterial blood by Pulse oximetry 2025-04-19 17:54:00 98 /min [facility] Systolic blood pressure 2025-03-30 20:19:00 83 mm[Hg] [facility] Diastolic blood pressure 2025-03-30 20:19:00 57 mm[Hg] [facility] Heart rate 2025-03-30 20:19:00 109 /min [facility] Body temperature 2025-03-30 20:19:00 36.89 Mera [facility] Respiratory rate 2025-03-30 20:19:00 16 /min [facility] Oxygen saturation in Arterial blood by Pulse oximetry 2025-03-30 20:19:00 97 /min [facility] Body weight 2025-03-30 03:19:00 67.699 kg [facility] BMI 2025-03-30 03:19:00 20.24 kg/m2 [facility] Body height 2025-03-27 05:15:00 182.9 cm [facility] Systolic blood pressure 2025-03-21 14:19:00 115 mm[Hg] [facility] Diastolic blood pressure 2025-03-21 14:19:00 67 mm[Hg] [facility] Heart rate 2025-03-21 14:19:00 78 /min [facility] Body height 2025-03-21 14:19:00 182.9 cm stated [facility] Body weight 2025-03-21 14:19:00 73.029 kg [facility] BMI 2025-03-21 14:19:00 21.84 kg/m2 [facility] Oxygen saturation in Arterial blood by Pulse oximetry 2025-03-21 14:19:00 98 /min [facility] Systolic blood pressure 2025-02-22 16:10:00 117 mm[Hg] [facility] Diastolic blood pressure 2025-02-22 16:10:00 69 mm[Hg] [facility] Heart rate 2025-02-22 16:10:00 86 /min [facility] Oxygen saturation in Arterial blood by Pulse oximetry 2025-02-22 16:10:00 98 /min [facility] Respiratory rate 2025-02-22 16:05:00 20 /min [facility] Body height 2025-02-22 16:05:00 182.9 cm [facility] Body weight 2025-02-22 16:05:00 71.804 kg [facility] BMI 2025-02-22 16:05:00 21.47 kg/m2 [facility] Systolic blood pressure 2025-02-20 16:30:00 131 mm[Hg] [facility] Diastolic blood pressure 2025-02-20 16:30:00 79 mm[Hg] [facility] Heart rate 2025-02-20 16:30:00 91 /min [facility] Body temperature 2025-02-20 16:30:00 36.33 Mera [facility] Respiratory rate 2025-02-20 16:30:00 18 /min [facility] Body height 2025-02-20 16:30:00 182.9 cm [facility] Body weight 2025-02-20 16:30:00 73.573 kg [facility] BMI 2025-02-20 16:30:00 22.00 kg/m2 [facility] Oxygen saturation in Arterial blood by Pulse oximetry 2025-02-20 16:30:00 98 /min [facility] Systolic blood pressure 2025-02-14 20:18:00 134 mm[Hg] [facility] Diastolic blood pressure 2025-02-14 20:18:00 69 mm[Hg] [facility] Heart rate 2025-02-14 20:18:00 81 /min [facility] Body temperature 2025-02-14 20:18:00 36.67 Mera [facility] Respiratory rate 2025-02-14 20:18:00 18 /min [facility] Oxygen saturation in Arterial blood by Pulse oximetry 2025-02-14 20:18:00 96 /min [facility] Body height 2025-02-13 17:50:00 182.9 cm [facility] Body weight 2025-02-13 17:50:00 74.5 kg [facility] BMI 2025-02-13 17:50:00 22.28 kg/m2 [facility] Systolic blood pressure 2025-02-13 22:15:00 143 mm[Hg] [facility] Diastolic blood pressure 2025-02-13 22:15:00 62 mm[Hg] [facility] Heart rate 2025-02-13 22:15:00 86 /min [facility] Body temperature 2025-02-13 22:15:00 36.17 Mera [facility] Respiratory rate 2025-02-13 22:15:00 16 /min [facility] Oxygen saturation in Arterial blood by Pulse oximetry 2025-02-13 22:15:00 98 /min [facility] Body height 2025-02-13 17:50:00 182.9 cm [facility] Body weight 2025-02-13 17:50:00 74.5 kg [facility] BMI 2025-02-13 17:50:00 22.28 kg/m2 [facility] Systolic blood pressure 2025-02-06 21:00:00 145 mm[Hg] [facility] Diastolic blood pressure 2025-02-06 21:00:00 73 mm[Hg] [facility] Respiratory rate 2025-02-06 21:00:00 16 /min [facility] Oxygen saturation in Arterial blood by Pulse oximetry 2025-02-06 21:00:00 99 /min [facility] Body temperature 2025-02-06 20:49:00 36.44 Mera [facility] Heart rate 2025-02-06 17:00:00 71 /min [facility] Body height 2025-02-06 16:06:00 182.9 cm [facility] Body weight 2025-02-06 16:06:00 73.483 kg [facility] BMI 2025-02-06 16:06:00 21.97 kg/m2 [facility] Systolic blood pressure 2025-02-06 14:28:00 148 mm[Hg] [facility] Diastolic blood pressure 2025-02-06 14:28:00 84 mm[Hg] [facility] Heart rate 2025-02-06 14:28:00 82 /min [facility] Oxygen saturation in Arterial blood by Pulse oximetry 2025-02-06 14:28:00 99 /min [facility] Body height 2025-02-06 14:26:00 182.9 cm [facility] Body weight 2025-02-06 14:26:00 73.71 kg [facility] BMI 2025-02-06 14:26:00 22.04 kg/m2 [facility] Systolic blood pressure 2025-02-06 13:21:00 128 mm[Hg] [facility] Diastolic blood pressure 2025-02-06 13:21:00 80 mm[Hg] [facility] Heart rate 2025-02-06 13:21:00 99 /min [facility] Body temperature 2025-02-06 13:21:00 36.39 Mera [facility] Respiratory rate 2025-02-06 13:21:00 18 /min [facility] Body height 2025-02-06 13:21:00 182.9 cm [facility] Body weight 2025-02-06 13:21:00 75.206 kg [facility] BMI 2025-02-06 13:21:00 22.49 kg/m2 [facility] Oxygen saturation in Arterial blood by Pulse oximetry 2025-02-06 13:21:00 99 /min [facility] Systolic blood pressure 2025-01-31 15:31:00 127 mm[Hg] [facility] Diastolic blood pressure 2025-01-31 15:31:00 78 mm[Hg] [facility] Heart rate 2025-01-31 15:31:00 74 /min [facility] Body temperature 2025-01-31 15:31:00 36.28 Mera [facility] Body height 2025-01-31 15:31:00 182.9 cm [facility] [facility] Body weight 2025-01-31 15:31:00 74.56 kg [facility] BMI 2025-01-31 15:31:00 22.29 kg/m2 [facility] Oxygen saturation in Arterial blood by Pulse oximetry 2025-01-31 15:31:00 99 /min [facility] Systolic blood pressure 2024-12-29 18:58:00 123 mm[Hg] [facility] Diastolic blood pressure 2024-12-29 18:58:00 63 mm[Hg] [facility] Heart rate 2024-12-29 18:58:00 81 /min [facility] Respiratory rate 2024-12-29 18:58:00 16 /min [facility] Body height 2024-12-29 18:58:00 182.9 cm [facility] Body weight 2024-12-29 18:58:00 73.437 kg [facility] BMI 2024-12-29 18:58:00 21.96 kg/m2 [facility] Oxygen saturation in Arterial blood by Pulse oximetry 2024-12-29 18:58:00 96 /min [facility] Systolic blood pressure 2024-12-28 16:15:00 125 mm[Hg] [facility] Diastolic blood pressure 2024-12-28 16:15:00 64 mm[Hg] [facility] Heart rate 2024-12-28 16:15:00 77 /min [facility] Respiratory rate 2024-12-28 16:15:00 11 /min [facility] Oxygen saturation in Arterial blood by Pulse oximetry 2024-12-28 16:15:00 95 /min [facility] Body temperature 2024-12-28 15:45:00 36.22 Mera [facility] Body height 2024-12-28 14:30:00 182.9 cm [facility] Body weight 2024-12-28 14:30:00 72.122 kg [facility] BMI 2024-12-28 14:30:00 21.56 kg/m2 [facility] Systolic blood pressure 2024-12-28 15:55:00 110 mm[Hg] [facility] Diastolic blood pressure 2024-12-28 15:55:00 64 mm[Hg] [facility] Heart rate 2024-12-28 15:55:00 74 /min [facility] Respiratory rate 2024-12-28 15:55:00 14 /min [facility] Oxygen saturation in Arterial blood by Pulse oximetry 2024-12-28 15:55:00 100 /min [facility] Body temperature 2024-12-28 15:45:00 36.22 Mera [facility] Body height 2024-12-28 14:30:00 182.9 cm [facility] Body weight 2024-12-28 14:30:00 72.122 kg [facility] BMI 2024-12-28 14:30:00 21.56 kg/m2 [facility] Systolic blood pressure 2024-12-20 17:39:00 137 mm[Hg] [facility] Diastolic blood pressure 2024-12-20 17:39:00 83 mm[Hg] [facility] Heart rate 2024-12-20 17:39:00 76 /min [facility] Body temperature 2024-12-20 17:39:00 36.72 Mera [facility] Body height 2024-12-20 17:39:00 182.9 cm [facility] Body weight 2024-12-20 17:39:00 74.072 kg [facility] BMI 2024-12-20 17:39:00 22.15 kg/m2 [facility] Oxygen saturation in Arterial blood by Pulse oximetry 2024-12-20 17:39:00 98 /min [facility] Systolic blood pressure 2024-12-06 18:11:00 153 mm[Hg] [facility] Diastolic blood pressure 2024-12-06 18:11:00 76 mm[Hg] [facility] Heart rate 2024-12-06 18:10:00 77 /min [facility] Respiratory rate 2024-12-06 18:10:00 18 /min [facility] Body height 2024-12-06 18:10:00 182.9 cm [facility] Body weight 2024-12-06 18:10:00 73.437 kg [facility] BMI 2024-12-06 18:10:00 21.96 kg/m2 [facility] Oxygen saturation in Arterial blood by Pulse oximetry 2024-12-06 18:10:00 98 /min [facility] Systolic blood pressure 2024-11-17 00:00:00 142 mm[Hg] [facility] Diastolic blood pressure 2024-11-17 00:00:00 62 mm[Hg] [facility] Heart rate 2024-11-17 00:00:00 88 /min [facility] Body temperature 2024-11-17 00:00:00 37.22 Mera [facility] Respiratory rate 2024-11-17 00:00:00 16 /min [facility] Oxygen saturation in Arterial blood by Pulse oximetry 2024-11-17 00:00:00 98 /min [facility] Body height 2024-11-16 20:17:00 182.9 cm [facility] Body weight 2024-11-16 20:17:00 73.029 kg [facility] BMI 2024-11-16 20:17:00 21.84 kg/m2 [facility] Systolic blood pressure 2024-11-11 14:30:00 129 mm[Hg] [facility] Diastolic blood pressure 2024-11-11 14:30:00 84 mm[Hg] [facility] Heart rate 2024-11-11 14:26:00 79 /min [facility] Body temperature 2024-11-11 14:26:00 36.28 Mera [facility] Respiratory rate 2024-11-11 14:26:00 16 /min [facility] Body height 2024-11-11 14:26:00 182.9 cm per patient [facility] Body weight 2024-11-11 14:26:00 74.39 kg [facility] BMI 2024-11-11 14:26:00 22.24 kg/m2 [facility] Oxygen saturation in Arterial blood by Pulse oximetry 2024-11-11 14:26:00 98 /min [facility] Systolic blood pressure 2024-11-07 14:08:00 127 mm[Hg] [facility] Diastolic blood pressure 2024-11-07 14:08:00 70 mm[Hg] [facility] Heart rate 2024-11-07 14:08:00 83 /min [facility] Body temperature 2024-11-07 14:08:00 36.39 Mera [facility] Respiratory rate 2024-11-07 14:08:00 18 /min [facility] Body height 2024-11-07 14:08:00 182.9 cm [facility] Body weight 2024-11-07 14:08:00 74.027 kg [facility] BMI 2024-11-07 14:08:00 22.13 kg/m2 [facility] Oxygen saturation in Arterial blood by Pulse oximetry 2024-11-07 14:08:00 98 /min [facility] Systolic blood pressure 2024-10-11 16:09:00 138 mm[Hg] [facility] Diastolic blood pressure 2024-10-11 16:09:00 84 mm[Hg] [facility] Heart rate 2024-10-11 16:09:00 80 /min [facility] Body temperature 2024-10-11 16:09:00 36.39 Mera [facility] Respiratory rate 2024-10-11 16:09:00 16 /min [facility] Body weight 2024-10-11 16:09:00 71.668 kg [facility] BMI 2024-10-11 16:09:00 21.43 kg/m2 [facility] Oxygen saturation in Arterial blood by Pulse oximetry 2024-10-11 16:09:00 99 /min [facility] Systolic blood pressure 2024-09-13 18:52:00 131 mm[Hg] [facility] Diastolic blood pressure 2024-09-13 18:52:00 79 mm[Hg] [facility] Heart rate 2024-09-13 18:52:00 88 /min [facility] Body temperature 2024-09-13 18:52:00 36.67 Mera [facility] Respiratory rate 2024-09-13 18:52:00 20 /min [facility] Body weight 2024-09-13 18:52:00 68.947 kg [facility] BMI 2024-09-13 18:52:00 20.61 kg/m2 [facility] Oxygen saturation in Arterial blood by Pulse oximetry 2024-09-13 18:52:00 98 /min [facility] Systolic blood pressure 2024-09-07 15:59:00 108 mm[Hg] [facility] Diastolic blood pressure 2024-09-07 15:59:00 74 mm[Hg] [facility] Heart rate 2024-09-07 15:59:00 74 /min [facility] Respiratory rate 2024-09-07 15:08:00 16 /min [facility] Body height 2024-09-07 15:08:00 182.9 cm [facility] Body weight 2024-09-07 15:08:00 69.219 kg [facility] BMI 2024-09-07 15:08:00 20.70 kg/m2 [facility] Oxygen saturation in Arterial blood by Pulse oximetry 2024-09-07 15:08:00 98 /min [facility] Systolic blood pressure 2024-08-29 21:14:00 121 mm[Hg] [facility] Diastolic blood pressure 2024-08-29 21:14:00 68 mm[Hg] [facility] Heart rate 2024-08-29 21:11:00 104 /min [facility] Body temperature 2024-08-29 21:11:00 36.5 Mera [facility] Respiratory rate 2024-08-29 21:11:00 18 /min [facility] Body height 2024-08-29 21:11:00 182.9 cm [facility] Body weight 2024-08-29 21:11:00 69.219 kg [facility] BMI 2024-08-29 21:11:00 20.70 kg/m2 [facility] Oxygen saturation in Arterial blood by Pulse oximetry 2024-08-29 21:11:00 98 /min [facility] Systolic blood pressure 2024-08-29 19:41:00 140 mm[Hg] [facility] Diastolic blood pressure 2024-08-29 19:41:00 84 mm[Hg] [facility] Heart rate 2024-08-29 19:41:00 107 /min [facility] Body height 2024-08-29 19:39:00 182.9 cm [facility] Body weight 2024-08-29 19:39:00 69.4 kg [facility] BMI 2024-08-29 19:39:00 20.75 kg/m2 [facility] Oxygen saturation in Arterial blood by Pulse oximetry 2024-08-29 19:39:00 98 /min [facility] Body weight 2024-08-29 19:05:00 70.761 kg [facility] BMI 2024-08-29 19:05:00 21.16 kg/m2 [facility] Systolic blood pressure 2024-08-26 16:22:00 131 mm[Hg] [facility] Diastolic blood pressure 2024-08-26 16:22:00 70 mm[Hg] [facility] Heart rate 2024-08-26 16:22:00 100 /min [facility] Body temperature 2024-08-26 16:22:00 37.61 Mera [facility] Respiratory rate 2024-08-26 16:22:00 18 /min [facility] Oxygen saturation in Arterial blood by Pulse oximetry 2024-08-26 16:22:00 96 /min [facility] Body weight 2024-08-26 08:12:00 70.988 kg [facility] BMI 2024-08-26 08:12:00 21.23 kg/m2 [facility] Body height 2024-08-26 01:37:00 182.9 cm [facility] Systolic blood pressure 2024-08-25 12:35:00 130 mm[Hg] [facility] Diastolic blood pressure 2024-08-25 12:35:00 68 mm[Hg] [facility] Heart rate 2024-08-25 12:35:00 94 /min [facility] Body temperature 2024-08-25 12:35:00 36.78 Mera [facility] Respiratory rate 2024-08-25 12:35:00 17 /min [facility] Oxygen saturation in Arterial blood by Pulse oximetry 2024-08-25 12:35:00 96 /min [facility] Body weight 2024-08-25 08:07:00 69.99 kg [facility] BMI 2024-08-25 08:07:00 21.23 kg/m2 [facility] Systolic blood pressure 2024-08-23 21:40:00 154 mm[Hg] [facility] Diastolic blood pressure 2024-08-23 21:40:00 73 mm[Hg] [facility] Heart rate 2024-08-23 21:40:00 100 /min [facility] Respiratory rate 2024-08-23 21:40:00 16 /min [facility] Oxygen saturation in Arterial blood by Pulse oximetry 2024-08-23 21:40:00 99 /min [facility] Body temperature 2024-08-23 16:04:00 36.78 Mera [facility] Body height 2024-08-23 16:04:00 182.9 cm [facility] Body weight 2024-08-23 16:04:00 71.079 kg [facility] BMI 2024-08-23 16:04:00 21.25 kg/m2 [facility] Systolic blood pressure 2024-08-23 15:03:00 127 mm[Hg] [facility] Diastolic blood pressure 2024-08-23 15:03:00 83 mm[Hg] [facility] Heart rate 2024-08-23 15:03:00 99 /min [facility] Body temperature 2024-08-23 15:03:00 36.44 Mera [facility] Respiratory rate 2024-08-23 15:03:00 18 /min [facility] Body height 2024-08-23 15:03:00 182.9 cm [facility] Body weight 2024-08-23 15:03:00 71.169 kg [facility] BMI 2024-08-23 15:03:00 21.28 kg/m2 [facility] Oxygen saturation in Arterial blood by Pulse oximetry 2024-08-23 15:03:00 98 /min [facility] Systolic blood pressure 2024-08-15 17:57:00 131 mm[Hg] [facility] Diastolic blood pressure 2024-08-15 17:57:00 73 mm[Hg] [facility] Heart rate 2024-08-15 17:57:00 86 /min [facility] Body temperature 2024-08-15 17:57:00 36.61 Mera [facility] Respiratory rate 2024-08-15 17:57:00 16 /min [facility] Body height 2024-08-15 17:57:00 182.9 cm [facility] Body weight 2024-08-15 17:57:00 71.668 kg [facility] BMI 2024-08-15 17:57:00 21.43 kg/m2 [facility] Oxygen saturation in Arterial blood by Pulse oximetry 2024-08-15 17:57:00 100 /min [facility] Systolic blood pressure 2024-08-11 19:18:00 146 mm[Hg] [facility] Diastolic blood pressure 2024-08-11 19:18:00 83 mm[Hg] [facility] Heart rate 2024-08-11 19:18:00 82 /min [facility] Oxygen saturation in Arterial blood by Pulse oximetry 2024-08-11 19:18:00 97 /min [facility] Body temperature 2024-08-11 19:12:00 36.94 Mera [facility] Systolic blood pressure 2024-08-08 16:24:00 127 mm[Hg] [facility] Diastolic blood pressure 2024-08-08 16:24:00 75 mm[Hg] [facility] Heart rate 2024-08-08 16:24:00 75 /min [facility] Body height 2024-08-08 16:24:00 182.9 cm [facility] Body weight 2024-08-08 16:24:00 74.39 kg [facility] BMI 2024-08-08 16:24:00 22.24 kg/m2 [facility] Oxygen saturation in Arterial blood by Pulse oximetry 2024-08-08 16:24:00 97 /min [facility] Systolic blood pressure 2024-08-02 13:07:00 137 mm[Hg] [facility] Diastolic blood pressure 2024-08-02 13:07:00 80 mm[Hg] [facility] Heart rate 2024-08-02 13:07:00 80 /min [facility] Body temperature 2024-08-02 13:07:00 36.61 Mera [facility] Respiratory rate 2024-08-02 13:07:00 20 /min [facility] Body height 2024-08-02 13:07:00 185.4 cm [facility] Body weight 2024-08-02 13:07:00 74.39 kg [facility] BMI 2024-08-02 13:07:00 21.64 kg/m2 [facility] Oxygen saturation in Arterial blood by Pulse oximetry 2024-08-02 13:07:00 96 /min [facility] Systolic blood pressure 2024-07-25 16:34:00 140 mm[Hg] [facility] Diastolic blood pressure 2024-07-25 16:34:00 70 mm[Hg] [facility] Heart rate 2024-07-25 16:33:00 85 /min [facility] Body temperature 2024-07-25 16:33:00 37 Mera [facility] Respiratory rate 2024-07-25 16:33:00 18 /min [facility] Body height 2024-07-25 16:33:00 182.9 cm [facility] Body weight 2024-07-25 16:33:00 73.347 kg [facility] BMI 2024-07-25 16:33:00 21.93 kg/m2 [facility] Oxygen saturation in Arterial blood by Pulse oximetry 2024-07-25 16:33:00 99 /min [facility] Systolic blood pressure 2024-07-18 19:55:00 124 mm[Hg] [facility] Diastolic blood pressure 2024-07-18 19:55:00 75 mm[Hg] [facility] Heart rate 2024-07-18 19:55:00 83 /min [facility] Body temperature 2024-07-18 19:55:00 36.44 Mera [facility] Respiratory rate 2024-07-18 19:55:00 16 /min [facility] Body height 2024-07-18 19:55:00 182.9 cm [facility] Body weight 2024-07-18 19:55:00 70.126 kg [facility] BMI 2024-07-18 19:55:00 20.97 kg/m2 [facility] Oxygen saturation in Arterial blood by Pulse oximetry 2024-07-18 19:55:00 98 /min [facility] Systolic blood pressure 2024-07-12 18:17:00 135 mm[Hg] [facility] Diastolic blood pressure 2024-07-12 18:17:00 76 mm[Hg] [facility] Heart rate 2024-07-12 18:17:00 87 /min [facility] Body temperature 2024-07-12 18:17:00 36.72 Mera [facility] Respiratory rate 2024-07-12 18:17:00 20 /min [facility] Body height 2024-07-12 18:17:00 182.9 cm [facility] Body weight 2024-07-12 18:17:00 71.668 kg [facility] BMI 2024-07-12 18:17:00 21.43 kg/m2 [facility] Oxygen saturation in Arterial blood by Pulse oximetry 2024-07-12 18:17:00 97 /min [facility] Systolic blood pressure 2024-07-10 12:19:00 120 mm[Hg] [facility] Diastolic blood pressure 2024-07-10 12:19:00 74 mm[Hg] [facility] Heart rate 2024-07-10 12:19:00 81 /min [facility] Body temperature 2024-07-10 12:19:00 36.67 Mera [facility] Respiratory rate 2024-07-10 12:19:00 17 /min [facility] Oxygen saturation in Arterial blood by Pulse oximetry 2024-07-10 12:19:00 97 /min [facility] Body weight 2024-07-09 10:05:00 73.483 kg [facility] BMI 2024-07-09 10:05:00 21.97 kg/m2 [facility] Body height 2024-07-08 01:50:00 182.9 cm [facility] Systolic blood pressure 2024-07-07 18:52:00 125 mm[Hg] [facility] Diastolic blood pressure 2024-07-07 18:52:00 70 mm[Hg] [facility] Heart rate 2024-07-07 18:52:00 73 /min [facility] Body temperature 2024-07-07 18:52:00 36.83 Mera [facility] Respiratory rate 2024-07-07 18:52:00 18 /min [facility] Body height 2024-07-07 18:52:00 182.9 cm [facility] Body weight 2024-07-07 18:52:00 71.759 kg [facility] BMI 2024-07-07 18:52:00 21.46 kg/m2 [facility] Oxygen saturation in Arterial blood by Pulse oximetry 2024-07-07 18:52:00 98 /min [facility] Systolic blood pressure 2024-06-17 20:24:00 129 mm[Hg] [facility] Diastolic blood pressure 2024-06-17 20:24:00 79 mm[Hg] [facility] Heart rate 2024-06-17 20:24:00 81 /min [facility] Body height 2024-06-17 20:24:00 182.9 cm [facility] Body weight 2024-06-17 20:24:00 71.986 kg [facility] BMI 2024-06-17 20:24:00 21.52 kg/m2 [facility] Oxygen saturation in Arterial blood by Pulse oximetry 2024-06-17 20:24:00 98 /min [facility] Systolic blood pressure 2024-06-13 15:52:00 128 mm[Hg] [facility] Diastolic blood pressure 2024-06-13 15:52:00 80 mm[Hg] [facility] Heart rate 2024-06-13 15:52:00 78 /min [facility] Oxygen saturation in Arterial blood by Pulse oximetry 2024-06-13 15:52:00 98 /min [facility] Body temperature 2024-06-13 15:50:00 36.44 Mera [facility] Respiratory rate 2024-06-13 15:50:00 20 /min [facility] Body height 2024-06-13 15:50:00 182.9 cm [facility] Body weight 2024-06-13 15:50:00 72.207 kg [facility] BMI 2024-06-13 15:50:00 21.59 kg/m2 [facility] Body height 2024-06-02 19:31:00 182.9 cm [facility] Body weight 2024-06-02 19:31:00 72.122 kg [facility] BMI 2024-06-02 19:31:00 21.56 kg/m2 [facility] Systolic blood pressure 2024-05-26 18:08:00 124 mm[Hg] [facility] Diastolic blood pressure 2024-05-26 18:08:00 80 mm[Hg] [facility] Heart rate 2024-05-26 18:08:00 92 /min [facility] Body temperature 2024-05-26 18:08:00 36.78 Mera [facility] Respiratory rate 2024-05-26 18:08:00 18 /min [facility] Body height 2024-05-26 18:08:00 182.9 cm [facility] Body weight 2024-05-26 18:08:00 71.759 kg [facility] BMI 2024-05-26 18:08:00 21.46 kg/m2 [facility] Oxygen saturation in Arterial blood by Pulse oximetry 2024-05-26 18:08:00 96 /min [facility] Systolic blood pressure 2024-05-26 19:28:00 124 mm[Hg] [facility] Diastolic blood pressure 2024-05-26 19:28:00 80 mm[Hg] [facility] Heart rate 2024-05-26 19:28:00 92 /min [facility] Body temperature 2024-05-26 19:28:00 36.78 Mera [facility] Respiratory rate 2024-05-26 19:28:00 18 /min [facility] Body height 2024-05-26 19:28:00 182.9 cm [facility] Body weight 2024-05-26 19:28:00 71.804 kg [facility] BMI 2024-05-26 19:28:00 21.47 kg/m2 [facility] Oxygen saturation in Arterial blood by Pulse oximetry 2024-05-26 19:28:00 98 /min [facility] Systolic blood pressure 2024-04-14 20:11:00 139 mm[Hg] [facility] Diastolic blood pressure 2024-04-14 20:11:00 79 mm[Hg] [facility] Heart rate 2024-04-14 20:11:00 85 /min [facility] Body temperature 2024-04-14 20:11:00 36.78 Mera [facility] Respiratory rate 2024-04-14 20:11:00 20 /min [facility] Body height 2024-04-14 20:11:00 182.9 cm [facility] Body weight 2024-04-14 20:11:00 72.576 kg [facility] BMI 2024-04-14 20:11:00 21.70 kg/m2 [facility] Oxygen saturation in Arterial blood by Pulse oximetry 2024-04-14 20:11:00 97 /min [facility] Systolic blood pressure 2024-04-04 18:40:00 122 mm[Hg] [facility] [facility] Diastolic blood pressure 2024-04-04 18:40:00 64 mm[Hg] his personal machine [facility] Heart rate 2024-04-04 18:40:00 87 /min [facility] Respiratory rate 2024-04-04 18:38:00 16 /min [facility] Body height 2024-04-04 18:38:00 182.9 cm [facility] Body weight 2024-04-04 18:38:00 70.081 kg [facility] BMI 2024-04-04 18:38:00 20.95 kg/m2 [facility] Oxygen saturation in Arterial blood by Pulse oximetry 2024-04-04 18:38:00 96 /min [facility] Systolic blood pressure 2024-03-29 18:53:00 121 mm[Hg] [facility] Diastolic blood pressure 2024-03-29 18:53:00 74 mm[Hg] [facility] Heart rate 2024-03-29 18:53:00 82 /min [facility] Body temperature 2024-03-29 18:53:00 36.72 Mera [facility] Respiratory rate 2024-03-29 18:53:00 15 /min [facility] Body weight 2024-03-29 18:53:00 72.349 kg [facility] BMI 2024-03-29 18:53:00 21.63 kg/m2 [facility] Oxygen saturation in Arterial blood by Pulse oximetry 2024-03-29 18:53:00 97 /min [facility] Systolic blood pressure 2024-03-24 16:12:00 125 mm[Hg] [facility] Diastolic blood pressure 2024-03-24 16:12:00 69 mm[Hg] [facility] Heart rate 2024-03-24 16:12:00 71 /min [facility] Body temperature 2024-03-24 16:12:00 36.28 Mera [facility] Respiratory rate 2024-03-24 16:12:00 18 /min [facility] Oxygen saturation in Arterial blood by Pulse oximetry 2024-03-24 16:12:00 96 /min [facility] Body weight 2024-03-24 08:43:00 73.426 kg [facility] BMI 2024-03-24 08:43:00 21.95 kg/m2 [facility] Body height 2024-03-22 10:28:00 182.9 cm [facility] Systolic blood pressure 2024-03-22 16:45:00 105 mm[Hg] [facility] Diastolic blood pressure 2024-03-22 16:45:00 56 mm[Hg] [facility] Heart rate 2024-03-22 16:45:00 88 /min [facility] Body temperature 2024-03-22 16:45:00 37.11 Mera [facility] Respiratory rate 2024-03-22 16:45:00 13 /min [facility] Oxygen saturation in Arterial blood by Pulse oximetry 2024-03-22 16:45:00 96 /min [facility] Body height 2024-03-22 10:28:00 182.9 cm [facility] Body weight 2024-03-22 10:28:00 72.7 kg [facility] BMI 2024-03-22 10:28:00 21.74 kg/m2 [facility] Systolic blood pressure 2024-03-10 19:51:00 129 mm[Hg] [facility] Diastolic blood pressure 2024-03-10 19:51:00 74 mm[Hg] [facility] Heart rate 2024-03-10 19:51:00 91 /min [facility] Body temperature 2024-03-10 19:49:00 36.78 Mera [facility] Respiratory rate 2024-03-10 19:49:00 20 /min [facility] Body height 2024-03-10 19:49:00 182.9 cm [facility] Body weight 2024-03-10 19:49:00 73.029 kg [facility] BMI 2024-03-10 19:49:00 21.84 kg/m2 [facility] Oxygen saturation in Arterial blood by Pulse oximetry 2024-03-10 19:49:00 97 /min [facility] Systolic blood pressure 2024-03-03 17:08:00 146 mm[Hg] [facility] Diastolic blood pressure 2024-03-03 17:08:00 82 mm[Hg] [facility] Heart rate 2024-03-03 17:07:00 75 /min [facility] Body temperature 2024-03-03 17:07:00 36.39 Mera [facility] Respiratory rate 2024-03-03 17:07:00 18 /min [facility] Body height 2024-03-03 17:07:00 182.9 cm [facility] Body weight 2024-03-03 17:07:00 73.936 kg [facility] BMI 2024-03-03 17:07:00 22.11 kg/m2 [facility] Oxygen saturation in Arterial blood by Pulse oximetry 2024-03-03 17:07:00 98 /min [facility] Systolic blood pressure 2024-03-03 13:42:00 134 mm[Hg] [facility] Diastolic blood pressure 2024-03-03 13:42:00 81 mm[Hg] [facility] Heart rate 2024-03-03 13:42:00 77 /min [facility] Respiratory rate 2024-03-03 13:42:00 18 /min [facility] Body height 2024-03-03 13:42:00 182.9 cm [facility] Body weight 2024-03-03 13:42:00 72.848 kg [facility] BMI 2024-03-03 13:42:00 21.78 kg/m2 [facility] Oxygen saturation in Arterial blood by Pulse oximetry 2024-03-03 13:42:00 98 /min [facility] Systolic blood pressure 2024-03-03 06:38:00 135 mm[Hg] [facility] Diastolic blood pressure 2024-03-03 06:38:00 75 mm[Hg] [facility] Heart rate 2024-03-03 06:38:00 77 /min [facility] Body temperature 2024-03-03 06:38:00 35.78 Mera [facility] Respiratory rate 2024-03-03 06:38:00 26 /min [facility] Oxygen saturation in Arterial blood by Pulse oximetry 2024-03-03 06:38:00 97 /min [facility] Body height 2024-03-03 04:21:00 182.9 cm [facility] Body weight 2024-03-03 04:21:00 73.936 kg [facility] BMI 2024-03-03 04:21:00 22.11 kg/m2 [facility] Systolic blood pressure 2024-02-25 17:44:00 130 mm[Hg] [facility] Diastolic blood pressure 2024-02-25 17:44:00 82 mm[Hg] [facility] Heart rate 2024-02-25 17:44:00 83 /min [facility] Body temperature 2024-02-25 17:44:00 36.61 Mera [facility] Respiratory rate 2024-02-25 17:44:00 18 /min [facility] Body height 2024-02-25 17:44:00 182.9 cm [facility] Body weight 2024-02-25 17:44:00 73.483 kg [facility] BMI 2024-02-25 17:44:00 21.97 kg/m2 [facility] Oxygen saturation in Arterial blood by Pulse oximetry 2024-02-25 17:44:00 97 /min [facility] Systolic blood pressure 2023-12-29 18:10:00 142 mm[Hg] [facility] Diastolic blood pressure 2023-12-29 18:10:00 72 mm[Hg] [facility] Heart rate 2023-12-29 18:10:00 65 /min [facility] Respiratory rate 2023-12-29 18:10:00 19 /min [facility] Body height 2023-12-29 18:10:00 182.9 cm [facility] Body weight 2023-12-29 18:10:00 77.61 kg [facility] BMI 2023-12-29 18:10:00 23.21 kg/m2 [facility] Oxygen saturation in Arterial blood by Pulse oximetry 2023-12-29 18:10:00 98 /min [facility] Systolic blood pressure 2023-12-28 15:14:00 135 mm[Hg] [facility] Diastolic blood pressure 2023-12-28 15:14:00 74 mm[Hg] [facility] Heart rate 2023-12-28 15:14:00 65 /min [facility] Body temperature 2023-12-28 15:14:00 36.39 Mera [facility] Respiratory rate 2023-12-28 15:14:00 18 /min [facility] Body height 2023-12-28 15:14:00 182.9 cm [facility] Body weight 2023-12-28 15:14:00 74.753 kg [facility] BMI 2023-12-28 15:14:00 22.35 kg/m2 [facility] Oxygen saturation in Arterial blood by Pulse oximetry 2023-12-28 15:14:00 98 /min [facility] Systolic blood pressure 2023-12-24 20:59:00 136 mm[Hg] [facility] Diastolic blood pressure 2023-12-24 20:59:00 71 mm[Hg] [facility] Heart rate 2023-12-24 20:59:00 70 /min [facility] Body temperature 2023-12-24 20:59:00 36.61 Mera [facility] Respiratory rate 2023-12-24 20:59:00 20 /min [facility] Body height 2023-12-24 20:59:00 182.9 cm [facility] Body weight 2023-12-24 20:59:00 76.204 kg [facility] BMI 2023-12-24 20:59:00 22.78 kg/m2 [facility] Oxygen saturation in Arterial blood by Pulse oximetry 2023-12-24 20:59:00 98 /min [facility] Systolic blood pressure 2023-12-11 18:16:00 141 mm[Hg] [facility] Diastolic blood pressure 2023-12-11 18:16:00 82 mm[Hg] [facility] Heart rate 2023-12-11 18:16:00 72 /min [facility] Body temperature 2023-12-11 18:16:00 36.33 Mera [facility] Body height 2023-12-11 18:16:00 182.9 cm [facility] Body weight 2023-12-11 18:16:00 75.297 kg [facility] BMI 2023-12-11 18:16:00 22.51 kg/m2 [facility] Oxygen saturation in Arterial blood by Pulse oximetry 2023-12-11 18:16:00 98 /min [facility] Systolic blood pressure 2023-11-27 21:36:00 136 mm[Hg] [facility] Diastolic blood pressure 2023-11-27 21:36:00 80 mm[Hg] [facility] Heart rate 2023-11-27 21:36:00 72 /min [facility] Body temperature 2023-11-27 21:36:00 36.61 Mera [facility] Respiratory rate 2023-11-27 21:36:00 17 /min [facility] Body height 2023-11-27 21:36:00 182.9 cm [facility] Body weight 2023-11-27 21:36:00 75.388 kg [facility] BMI 2023-11-27 21:36:00 22.54 kg/m2 [facility] Oxygen saturation in Arterial blood by Pulse oximetry 2023-11-27 21:36:00 98 /min [facility] Systolic blood pressure 2025-01-31 15:31:00 127 mm[Hg] [facility] Diastolic blood pressure 2025-01-31 15:31:00 78 mm[Hg] [facility] Heart rate 2025-01-31 15:31:00 74 /min [facility] Body temperature 2025-01-31 15:31:00 36.28 Mera [facility] Body height 2025-01-31 15:31:00 182.9 cm [facility] Body weight 2025-01-31 15:31:00 74.56 kg [facility] BMI 2025-01-31 15:31:00 22.29 kg/m2 [facility] Oxygen saturation in Arterial blood by Pulse oximetry 2025-01-31 15:31:00 99 /min [facility] Respiratory rate 2025-01-10 20:00:00 16 /min [facility] Procedures Procedure Date / Time Performed Performing Clinician Source MAGNESIUM 2025-03-30 10:27:00 Tarah [facility] BASIC METABOLIC PANEL (NA, K, CL, CO2, GLUCOSE, BUN, CREATININE, CA) 2025-03-30 10:27:00 Tarah [facility] CBC WITH DIFF 2025-03-30 10:27:00 Tarah [facility] MAGNESIUM 2025-03-29 09:24[facility] (NA, K, CL, CO2, GLUCOSE, BUN, CREATININE, CA) 2025-03-29 09:24:00 Tarah [facility] CBC WITH DIFF 2025-03-29 [facility] 2025-03-28 13:18:00 [facility] POCT GLUCOSE (AUTOMATED) 2025-03-28 09:50:00 [facility] MAGNESIUM 2025-03-28 09:45:00 Tarah [facility] BASIC METABOLIC PANEL (NA, K, CL, CO2, GLUCOSE, BUN, CREATININE, CA) 2025-03-28 09:45:00 Tarah [facility] CBC WITH DIFF 2025-03-28 09:[facility] 2025-03-28 09:44:00 [facility] POCT GLUCOSE (AUTOMATED) 2025-03-28 04:09:00 [facility] URINE CULTURE 2025-03-28 01:07:00 Elias Smith [facility] URINALYSIS 2025-03-28 01:05:00 Elias Smith [facility]Formerly [facility] POCT GLUCOSE (AUTOMATED) 2025-03-28 00:44:00 [facility] BLOOD CULTURE SCREEN 2025-03-27 17:33:00 Toni Smith [facility] INFLUENZA A/B RSV COVID NAAT 2025-03-27 16:57:00 [facility] LAB ONLY COVID INTERPRETATION 2025-03-27 16:57:00 Elias Smith [facility] XR CHEST 1 VW 2025-03-27 14:21:00 [facility] 2025-03-27 05:55:00 Jerel Goel [facility] TROPONIN I 2025-03-27 05:55:00 Jerel Goel [facility] BASIC METABOLIC PANEL (NA, K, CL, CO2, GLUCOSE, BUN, CREATININE, CA) 2025-03-27 05:55:00 Jerel Goel [facility] LIPID PANEL ([id number])(TOTAL CHOLESTEROL, TRIGLYCERIDES, HDL) 2025-03-27 05:55:00 Jerel Goel [facility] CBC WITH DIFF 2025-03-27 05:55:00 Jerel Goel [facility] GLYCOSYLATED HEMOGLOBIN (A1C) 2025-03-27 05:55:00 Jerel Goel [facility] MAGNESIUM 2025-02-14 08:46:00 Kwadwo [facility] BASIC METABOLIC PANEL (NA, K, CL, CO2, GLUCOSE, BUN, CREATININE, CA) 2025-02-14 08:46:00 Kwadwo [facility] CBC WITH DIFF 2025-02-14 08:46:00 Kwadwo [facility] MAGNESIUM 2025-02-14 08:46:00 Kwadwo [facility] BASIC METABOLIC PANEL (NA, K, CL, CO2, GLUCOSE, BUN, CREATININE, CA) 2025-02-14 08:46:00 Kwadwo [facility] CBC WITH DIFF 2025-02-14 08:46:00 [facility] POCT GLUCOSE (AUTOMATED) 2025-02-14 04:07:00 David Barnett i [facility] POCT GLUCOSE (AUTOMATED) 2025-02-14 04:07:00 [facility] ACTIVATED PARTIAL THRMPLAS SHANTELL 2025-02-14 01:15:00 Calixto Sidhu [facility] ACTIVATED PARTIAL THRMPLAS SHANTELL 2025-02-14 01:15:00 Calixto Sidhu [facility] CATH PROCEDURE LOG 2025-02-13 21:35:45 David HemGarrett jones [facility] CATH PROCEDURE LOG 2025-02-13 21:35:45 David HemGarrett jones [facility] CARDIAC CATHETERIZATION 2025-02-13 21:10:00 David Hemyayariel [facility] CARDIAC CATHETERIZATION 2025-02-13 21:10:00 David Hemyayariel [facility] CARDIAC CATHETERIZATION 2025-02-13 21:10:00 David Hemyayariel [facility] CARDIAC CATHETERIZATION 2025-02-13 21:10:00 David Hemrobert [facility] CARDIAC CATHETERIZATION 2025-02-13 21:10:00 David Hemyayariel [facility] CARDIAC CATHETERIZATION 2025-02-13 21:10:00 David Marino [facility] TRANSTHORACIC ECHO (TTE) LIMITED W/ CONTRAST 2025-02-13 16:41:45 SidiqCalixto [facility] TRANSTHORACIC ECHO (TTE) LIMITED W/ CONTRAST 2025-02-13 16:41:45 Calixto Sidhu [facility] ACTIVATED PARTIAL THRMPLAS SHANTELL 2025-02-13 15:12:00 SidiqCalixto [facility] ACTIVATED PARTIAL THRMPLAS SHANTELL 2025-02-13 15:12:00 SidiqCalixto [facility] TROPONIN I 2025-02-13 13:38:00 Sidiq, Calixto Mauro [facility] TROPONIN I 2025-02-13 13:38:00 SidiqCalixto [facility] MAGNESIUM 2025-02-13 08:30:00 SidiqCalixto [facility] TROPONIN I 2025-02-13 08:30:00 SidiqCalixto [facility] BASIC METABOLIC PANEL (NA, K, CL, CO2, GLUCOSE, BUN, CREATININE, CA) 2025-02-13 08:30:00 Sidiq, Calixto [facility] CBC WITH DIFF 2025-02-13 08:30:00 SidCalixto perez Un ivFormerly [facility] ACTIVATED PARTIAL THRMPLAS SHANTELL 2025-02-13 08:30:00 Sidiq, Calixto [facility] N-TERMINAL PRO-BNP 2025-02-13 08:30:00 Garrett Lassiter [facility] MAGNESIUM 2025-02-13 08:30:00 SidiqCalixto [facility] TROPONIN I 2025-02-13 08:30:00 Sidiq, Calixto Mauro [facility] BASIC METABOLIC PANEL (NA, K, CL, CO2, GLUCOSE, BUN, CREATININE, CA) 2025-02-13 08:30:00 [facility] 2025-02-13 08:30:00 SidiqCalixto Un ivFormerly [facility] ACTIVATED PARTIAL THRMPLAS SHANTELL 2025-02-13 08:30:00 SidiqCalixto [facility] N-TERMINAL PRO-BNP 2025-02-13 08:30:00 Garrett Lassiter [facility] CBC WITH DIFF 2025-02-13 02:03:00 Calixto Sidhu [facility] PROTHROMBIN TIME / INR 2025-02-13 02:03:00 [facility]IV[facility] PARTIAL THRMPLAS SHANTELL 2025-02-13 02:03:00 [facility] BLUE 2025-02-13 02:03:00 David Marino Ba [facility] CBC WITH DIFF 2025-02-13 02:03:00 SidiqCalixto Un ivFormerly [facility] PROTHROMBIN TIME / INR 2025-02-13 02:03:00 Sidiq, Calixto [facility] ACTIVATED PARTIAL THRMPLAS SHANTELL 2025-02-13 02:03:00 SidiqCalixto [facility] EXTRA TUBE LT. BLUE 2025-02-13 02:03:00 David Marino Ba [facility] HB ECG ROUTINE & RHYTHM STRIP 2025-02-13 01:39:10 Nahum Calixto [facility] HB ECG ROUTINE & RHYTHM STRIP 2025-02-13 01:39:10 [facility] 2025-02-13 01:05[facility]25-02-13 01:05:00 Sidana Calixto [facility] BASIC METABOLIC PANEL (NA, K, CL, CO2, GLUCOSE, BUN, CREATININE, CA) 2025-02-13 01:05:00 Nahum Calixto [facility] MAGNESIUM 2025-02-13 01:05:00 [facility] 2025-02-13 01:05:00 Nahum Calixto [facility] BASIC METABOLIC PANEL (NA, K, CL, CO2, GLUCOSE, BUN, CREATININE, CA) 2025-02-13 01:05:00 Nahum Calixto [facility] HB ECG ROUTINE & RHYTHM STRIP 2025-02-13 00:53:03 Sidana [facility] HB ECG ROUTINE & RHYTHM STRIP 2025-02-13 00:53:03 Sidana [facility] TROPONIN I 2025-02-06 20:23:00 [facility] TRANSTHORACIC ECHO (TTE) COMPLETE W/ CONTRAST 2025-02-06 19:50:00 [facility] TROPONIN I 2025-02-06 17:05:00 [facility] BASIC METABOLIC PANEL (NA, K, CL, CO2, GLUCOSE, BUN, CREATININE, CA) 2025-02-06 17:05:00 Parish [facility] LIPID PANEL ([id number])(TOTAL CHOLESTEROL, TRIGLYCERIDES, HDL) 2025-02-06 17:05:00 Parish [facility] CBC WITH DIFF 2025-02-06 17:05:00 Adela Ward [facility] GLYCOSYLATED HEMOGLOBIN (A1C) 2025-02-06 17:05:00 Parish [facility] POCT GLUCOSE (AUTOMATED) 2025-02-06 17:04:00 Sherley Ward [facility] SAMM,POST-VOID RES,US,NON-IMAGING 2025-01-31 00:00:00 [facility] 2025-01-31 00:00:00 Cali Doll [facility] SAMM,POST-VOID RES,US,NON-IMAGING 2025-01-31 00:00:00 Angella [facility] POCT URINALYSIS AUTO 2025-01-31 00:00:00 Cali Doll [facility] CT ABDOMEN PELVIS W WO CONTRAST 2025-01-10 18:19:34 Alex Blanchard [facility] URINALYSIS 2025-01-10 16:26:00 [facility] 2025-01-10 16:24:00 [facility] COMP. METABOLIC PANEL ([id number]) 2025-01-10 16:24:00 Alex Blanchard [facility] PROTHROMBIN TIME / INR 2025-01-10 16:24:00 Silas Blanchard [facility] ACTIVATED PARTIAL THRMPLAS SHANTELL 2025-01-10 16:24:00 Alex Blanchard [facility] DME/SUPPLY JUSTIFICATION 2025-01-04 15:54:01 Doc tor Unassigned, Adwolf [facility] POCT GLUCOSE (AUTOMATED) 2024-12-28 15:53:00 Srinivasan Andino [facility] POCT GLUCOSE (AUTOMATED) 2024-12-28 15:53:00 Srinivasan Andino [facility] POCT GLUCOSE (AUTOMATED) 2024-12-28 15:53:00 Srinivasan Andino [facility] COLONOSCOPY (ENDO) 2024-12-28 15:47:25 ObiJulian Bragg [facility] COLONOSCOPY (ENDO) 2024-12-28 15:47:25 Joshua-Julian Catherine [facility] COLONOSCOPY (ENDO) 2024-12-28 15:47:25 Obi-Dorene, Uz rochelle [facility] SURGICAL PATHOLOGY EXAM 2024-12-28 15:06:00 Darcy Andino [facility] [id number] - [place] COLONOSCOPY W/BIOPSY SINGLE/MULTIPLE 2024-12-28 14:36:00 Thu [facility] [id number] - [place] COLONOSCOPY W/BIOPSY SINGLE/MULTIPLE 2024-12-28 14:36:00 Thu [facility] POCT GLUCOSE (AUTOMATED) 2024-12-28 14:32:00 Srinivasan nAdino [facility] POCT GLUCOSE (AUTOMATED) 2024-12-28 14:32:00 Srinivasan Andino [facility] POCT GLUCOSE (AUTOMATED) 2024-12-28 14:32:00 Srinivasan Andino [facility] SAMM,POST-VOID RES,US,NON-IMAGING 2024-12-20 17:53:00 Sumanth [facility] SAMM,POST-VOID RES,US,NON-IMAGING 2024-12-20 17:53:00 [facility] POCT URINALYSIS AUTO 2024-12-20 00:00:00 Sumanth [facility] POCT URINALYSIS AUTO 2024-12-20 00:00:00 Angella [facility] TROPONIN I 2024-11-16 22:27:00 Kiah Garcia [facility] COMP. METABOLIC PANEL ([id number]) 2024-11-16 22:27:00 Kiah Garcia [facility] CBC WITH DIFF 2024-11-16 22:27:00 Kiah Garcia Un [facility] INFLUENZA A/B RSV COVID NAAT 2024-11-16 22:27:00 Kiah Garcia [facility] CBC WITH DIFF 2024-11-16 22:27:00 Kiah Garcia [facility] COMP. METABOLIC PANEL ([id number]) 2024-11-16 22:27:00 Kiah Garcia [facility] TROPONIN I 2024-11-16 22:27:00 Kiah Garcia [facility] INFLUENZA A/B RSV COVID NAAT 2024-11-16 22:27:00 Kiah Garcia [facility] LAB ONLY COVID INTERPRETATION 2024-11-16 22:27:00 Kiah Garcia [facility] URINALYSIS 2024-11-16 21:20:00 Kiah Garcia [facility] URINALYSIS 2024-11-16 21:20:00 Kiah Garcia [facility] MICROALBUMIN URINE 2024-11-07 15:02:00 Julian Toth rochelle [facility] CBC WITH DIFF 2024-11-07 14:58:00 Marcel [facility] COMP. METABOLIC PANEL ([id number]) 2024-11-07 14:58:00 Janey [facility] LIPID PANEL ([id number])(TOTAL CHOLESTEROL, TRIGLYCERIDES, HDL) 2024-11-07 14:58:00 Janey [facility] THYROID STIMULATING HORMONE 2024-11-07 14:58:00 Janey [facility] FREE T4 2024-11-07 14:58:00 Marcel Toth Un [facility] FREE T3 2024-11-07 14:58:00 Marcel Toth [facility] GLYCOSYLATED HEMOGLOBIN (A1C) 2024-11-07 14:58:00 [facility] 2024-10-11 16:19:00 Cali Doll [facility] SAMM,POST-VOID RES,US,NON-IMAGING 2024-10-10 00:00:00 Lynn Doll [facility] POCT URINALYSIS AUTO 2024-09-13 19:08:00 Cali Doll [facility] SAMM,POST-VOID RES,US,NON-IMAGING 2024-09-13 19:07:00 Lynn Doll [facility] POCT GLUCOSE (AUTOMATED) 2024-08-26 16:29:00 Senthil Madden [facility] POCT GLUCOSE (AUTOMATED) 2024-08-26 16:29:00 Senthil Madden [facility] POCT GLUCOSE (AUTOMATED) 2024-08-26 12:32:00 Senthil Madden [facility] POCT GLUCOSE (AUTOMATED) 2024-08-26 12:32:00 Senthil Madden [facility] BASIC METABOLIC PANEL (NA, K, CL, CO2, GLUCOSE, BUN, CREATININE, CA) 2024-08-26 08:19:[address] [facility] CBC WITH DIFF 2024-08-26 08:19:00 [facility]OLIC PANEL (NA, K, CL, CO2, GLUCOSE, BUN, CREATININE, CA) 2024-08-26 08:19:00 [facility] 2024-08-26 08:19:00 Chano [facility] POCT GLUCOSE (AUTOMATED) 2024-08-26 01:37:00 Senthil Madden [facility] POCT GLUCOSE (AUTOMATED) 2024-08-26 01:37:00 Senthil Madden [facility] POCT GLUCOSE (AUTOMATED) 2024-08-25 21:35:00 Senthil Madden [facility] POCT GLUCOSE (AUTOMATED) 2024-08-25 21:35:00 Senthil Madden [facility] POCT GLUCOSE (AUTOMATED) 2024-08-25 18:34:00 Senthil Madden emelia [facility] POCT GLUCOSE (AUTOMATED) 2024-08-25 18:34:00 Senthil Madden [facility] URINE CULTURE 2024-08-25 15:50:00 Lynn Doll [facility] URINE CULTURE 2024-08-25 15:50:00 Angella [facility] [id number] - [place] LASER ENUCLEATION PROSTATE W/MORCELLATION 2024-08-25 14:54:00 Angella [facility] [id number] - [place] LASER ENUCLEATION PROSTATE W/MORCELLATION 2024-08-25 14:54:00 Angella [facility] POCT GLUCOSE (AUTOMATED) 2024-08-25 12:46:00 Senthil Madden [facility] POCT GLUCOSE (AUTOMATED) 2024-08-25 12:46:00 Senthil Madden [facility] BASIC METABOLIC PANEL (NA, K, CL, CO2, GLUCOSE, BUN, CREATININE, CA) 2024-08-25 09:26:00 [facility] 2024-08-25 09:26:00 Chano [facility] BASIC METABOLIC PANEL (NA, K, CL, CO2, GLUCOSE, BUN, CREATININE, CA) 2024-08-25 09:26:00 [facility]FF 2024-08-25 09:26:00 Chano [facility] BASIC METABOLIC PANEL (NA, K, CL, CO2, GLUCOSE, BUN, CREATININE, CA) 2024-08-25 02:41:00 [facility]FF 2024-08-25 02:41:00 [facility] GLYCOS[facility]EMOGLOBIN (A1C) 2024-08-25 02:41:[address] [facility] BASIC METABOLIC PANEL (NA, K, CL, CO2, GLUCOSE, BUN, CREATININE, CA) 2024-08-25 02:41:[address] [facility] CBC WITH DIFF 2024-08-25 02:41:00 [facility] GLYCOSYLATED HEMOGLOBIN (A1C) 2024-08-25 02:41:00 [facility]ATED) 2024-08-25 02:01:00 Senthil Madden [facility] POCT GLUCOSE (AUTOMATED) 2024-08-25 02:01:00 Senthil Madden [facility] COMP. METABOLIC PANEL (53919) 2024-08-23 16:50:00 Sandro Ramirez [facility] CBC WITH DIFF 2024-08-23 16:50:00 Sandro Ramirez [facility] URINALYSIS 2024-08-23 16:50:00 Sandro Ramirez [facility] SAMM,POST-VOID RES,US,NON-IMAGING 2024-08-16 19:33:00 [facility] POCT GLUCOSE (AUTOMATED) 2024-08-15 20:52:00 Cristy Zapata [facility] POCT GLUCOSE (AUTOMATED) 2024-08-15 20:18:00 Cristy Zapata [facility] URINALYSIS 2024-08-15 18:41:00 Wayne [facility]apata [facility] URINE CULTURE 2024-08-11 20:24:00 [facility] POCT URINALYSIS AUTO 2024-08-02 13:36:00 [facility]ella [facility] SAMM,POST-VOID RES,US,NON-IMAGING 2024-08-02 00:00:00 Sumanth [facility] POCT URINALYSIS AUTO 2024-07-12 18:34:00 Angella [facility] SAMM,POST-VOID RES,US,NON-IMAGING 2024-07-12 00:00:00 Angella [facility] POCT GLUCOSE (AUTOMATED) 2024-07-10 13:24:00 Marc [facility] POCT GLUCOSE (AUTOMATED) 2024-07-10 05:20:00 Marc [facility] POCT GLUCOSE (AUTOMATED) 2024-07-10 02:13:00 Marc [facility] POCT GLUCOSE (AUTOMATED) 2024-07-09 22:04:00 Marc [facility] POCT GLUCOSE (AUTOMATED) 2024-07-09 16:22:00 Marc [facility] POCT GLUCOSE (AUTOMATED) 2024-07-09 13:26:00 Marc [facility] POCT GLUCOSE (AUTOMATED) 2024-07-09 06:44:00 Marc [facility] POCT GLUCOSE (AUTOMATED) 2024-07-09 01:40:00 Marc [facility] POCT GLUCOSE (AUTOMATED) 2024-07-08 22:36:00 Marc [facility] TRANSTHORACIC ECHO (TTE) COMPLETE W/ CONTRAST 2024-07-08 20:45:49 April Hernandez [facility] MR STROKE BRAIN WO CONTRAST 2024-07-08 19:40:00 [facility] ([facility]OMATED) 2024-07-08 17:14:00 Marc [facility] VERIFYNOW ASPIRIN TEST 2024-07-08 16:38:00 Lupillo Hernandez [facility] POCT GLUCOSE (AUTOMATED) 2024-07-08 13:19:00 Marc [facility] POCT GLUCOSE (AUTOMATED) 2024-07-08 10:54:00 Anita Arroyo [facility] POCT GLUCOSE (AUTOMATED) 2024-07-08 02:04:00 Yannick [facility] LIPID PANEL (70383)(TOTAL CHOLESTEROL, TRIGLYCERIDES, HDL) 2024-07-08 00:38:00 Yannick [facility] CT ANGIOGRAM HEAD 2024-07-08 00:10:00 Juan Calvillo [facility] CT HEAD WO CONTRAST 2024-07-08 00:10:00 Juan Calvillo [facility] CT ANGIOGRAM NECK 2024-07-08 00:10:00 Juan Calvillo [facility] TROPONIN I 2024-07-07 22:14:00 Juan Calvillo [facility] BASIC METABOLIC PANEL (NA, K, CL, CO2, GLUCOSE, BUN, CREATININE, CA) 2024-07-07 22:14:00 Juan Calvillo [facility] CBC WITH DIFF 2024-07-07 22:14:00 Juan Calvillo [facility] ABDOMINAL AORTA SCREEN AAA 2024-06-02 15:12:33 Obi-Dorene, [facility] US ABDOMINAL AORTA SCREEN AAA 2024-06-02 15:12:33 Obi-Dorene, [facility] FREE T4 2024-05-31 16:39:00 [facility], Marcel Un [facility] THYROID STIMULATING HORMONE 2024-05-31 16:39:00 [facility], [facility] MICROALBUMIN URINE 2024-05-31 16:39:00 [facility] COMP. METABOLIC PANEL (94807) 2024-05-31 16:39:00 [facility] LIPID PANEL (35204)(TOTAL CHOLESTEROL, TRIGLYCERIDES, HDL) 2024-05-31 16:39:00 [facility] CBC WITH DIFF 2024-05-31 16:39:00 [facility] Hospital[facility]PierreMarcel U nivFormerly [facility] GLYCOSYLATED HEMOGLOBIN (A1C) 2024-05-31 16:39:00 [facility] FREE T3 2024-05-31 16:39:00 [facility] CAROTID DUPLEX BILATERAL - BY VASCULAR LAB 2024-05-24 18:21:09 Ron Hoover [facility] POCT GLUCOSE (AUTOMATED) 2024-03-24 13:41:00 [facility] 2024-03-24 09:31:00 [facility] ([facility]OMATED) 2024-03-23 21:55:00 Christi Hoover [facility] POCT GLUCOSE (AUTOMATED) 2024-03-23 20:49:00 Christi Hoover [facility] POCT GLUCOSE (AUTOMATED) 2024-03-23 16:48:00 Christi Hoover [facility] POCT GLUCOSE (AUTOMATED) 2024-03-23 16:48:00 Sneha [facility] POCT GLUCOSE (AUTOMATED) 2024-03-23 12:34:00 Sneha [facility] POCT GLUCOSE (AUTOMATED) 2024-03-23 12:34:00 Sneha [facility] PHOSPHORUS 2024-03-23 07:57:00 Ed Hadley [facility] MAGNESIUM 2024-03-23 07:57:00 Jomar Ed [facility] IONIZED CALCIUM 2024-03-23 07:57:00 Ruby Fabian [facility] BASIC METABOLIC PANEL (NA, K, CL, CO2, GLUCOSE, BUN, CREATININE, CA) 2024-03-23 07:57:00 Jomar [facility] CBC WITH DIFF 2024-03-23 07:57:00 Ed Hadley [facility] PHOSPHORUS 2024-03-23 07:57:00 Ed Hadley [facility] MAGNESIUM 2024-03-23 07:57:00 Ed Hadley [facility] IONIZED CALCIUM 2024-03-23 07:57:00 Ruby Fabian [facility] BASIC METABOLIC PANEL (NA, K, CL, CO2, GLUCOSE, BUN, CREATININE, CA) 2024-03-23 07:57:00 oJmar [facility] CBC WITH DIFF 2024-03-23 07:57:00 Ed Hadley [facility] POCT GLUCOSE (AUTOMATED) 2024-03-23 02:15:00 Sneha [facility] POCT GLUCOSE (AUTOMATED) 2024-03-23 02:15:00 Sneha [facility] POCT GLUCOSE (AUTOMATED) 2024-03-22 22:22:00 Sneha [facility] POCT GLUCOSE (AUTOMATED) 2024-03-22 22:22:00 Sneha [facility] POCT GLUCOSE (AUTOMATED) 2024-03-22 18:10:00 Sneha [facility] POCT GLUCOSE (AUTOMATED) 2024-03-22 18:10:00 Christi Hoover [facility] PHOSPHORUS 2024-03-22 16:30:00 Jerel Sandy [facility] MAGNESIUM 2024-03-22 16:30:00 Jerel Sandy [facility] BASIC METABOLIC PANEL (NA, K, CL, CO2, GLUCOSE, BUN, CREATININE, CA) 2024-03-22 16:30:00 Ed Hadley [facility] CBC WITH DIFF 2024-03-22 16:30:00 Jomar Ed [facility] MRSA / MSSA SCREEN BY PCR, KIT 2024-03-22 16:30:00 Jomar [facility] PHOSPHORUS 2024-03-22 16:30:00 Jerel Sandy [facility] MAGNESIUM 2024-03-22 16:30:00 Jerel Sandy [facility] BASIC METABOLIC PANEL (NA, K, CL, CO2, GLUCOSE, BUN, CREATININE, CA) 2024-03-22 16:30:00 Jomar [facility] CBC WITH DIFF 2024-03-22 16:30:00 Jomar Ed [facility] MRSA / MSSA SCREEN BY PCR, KIT 2024-03-22 16:30:00 Jomar [facility] POCT GLUCOSE (AUTOMATED) 2024-03-22 16:28:00 [facility] PO[facility]UCOSE (AUTOMATED) 2024-03-22 16:28:00 Christi Hoover [facility] CAROTID ENDARTERECTOMY 2024-03-22 12:05:00 Ernesto Hoover [facility] CAROTID ENDARTERECTOMY 2024-03-22 12:05:00 Ernesto Hoover [facility] ABORH CONFIRMATION (LAB ONLY) 2024-03-22 10:59:00 Monica Owens [facility] ABORH CONFIRMATION (LAB ONLY) 2024-03-22 10:59:00 Monica Owens [facility] POCT GLUCOSE(AGE >30DAYS) 2024-03-22 10:49:00 Monica Owens [facility] POCT GLUCOSE(AGE >30DAYS) 2024-03-22 10:49:00 Monica Owens [facility] POCT GLUCOSE (AUTOMATED) 2024-03-22 10:48:00 Christi Hoover [facility] POCT GLUCOSE (AUTOMATED) 2024-03-22 10:48:00 Christi Hoover [facility] HB ABO GROUPING 2024-03-19 15:46:00 Ron Hoover [facility] HOME HEALTH - OTHER 2024-03-18 17:24:19 Doctor U mirella, Adwolf [facility] EKG-12 LEAD 2024-03-03 06:28:35 Rosalva Finch [facility] POCT GLUCOSE (AUTOMATED) 2024-03-03 06:01:00 [facility] WO CONTRAST 2024-03-03 05:06:59 Gee Finch [facility] TROPONIN I 2024-03-03 04:41:00 Rosalva Finch [facility] BASIC METABOLIC PANEL (NA, K, CL, CO2, GLUCOSE, BUN, CREATININE, CA) 2024-03-03 04:41:00 D[facility] CBC WITH DIFF 2024-03-03 04:41:00 Dao [facility] POCT GLUCOSE (AUTOMATED) 2024-03-03 04:15:00 Gladis Finchformerly [facility] HCV ANTIBODY 2024-02-22 18:22:00 Pat Ochoa [facility] DME/SUPPLY JUSTIFICATION 2024-02-22 17:07:53 Doc tor Unassigned, Adwolf [facility] EXTERNAL PROVIDER RECORDS 2024-01-12 05:01:00 Do ctor Unassigned, Adwolf [facility] AUTHORIZATION TO RELEASE PHI TO [facility] 2023-12-29 06:01:00 Doctor Unassigned, Adwolf [facility] HB ECG ROUTINE & RHYTHM STRIP 2023-12-28 15:18:11 Allyson Fink [facility] DME/SUPPLY JUSTIFICATION 2023-12-07 06:01:00 Doc tor Unassigned, Adwolf [facility] ASSIGNMENT OF BENEFITS 2023-11-27 21:19:25 Docto r Unassigned, Adwolf [facility] Plan of Care Planned Activity Planned Date Details Comments Source Encounters Start Date/Time End Date/Time Encounter Type Admission Type Attending [facility] Care Facility Care Department Encounter ID Source 2025-03-28 11:58:02 Outpatient R RILEY GRANADOS [facility] CCA [id number] [facility] 2024-08-12 09:01:35 Outpatient R LYNN DOLL [facility] SUU [id number] [facility] 2025-07-24 11:00:00 2025-07-24 11:00:00 Outpatient R OBI-DORENEMARCEL [id number] 2025-07-17 09:45:00 2025-07-17 09:45:00 Outpatient [facility] [id number] [facility] 2025-07-17 09:30:00 2025-07-17 09:30:00 Outpatient R [facility] [id number] [facility] 2025-06-19 00:00:00 2025-06-19 11:17:36 [facility] 1.2.840.114 350.1.13.10 4.2.7.2.686 [id number] [facility] 2025-06-16 00:00:00 2025-06-16 13:44:31 Refill [facility] , [facility] 1.2.840.114 350.1.13.10 4.2.7.2.686 [id number] [facility] 2025-04-26 00:00:00 2025-05-27 18:36:57 Patient Secure M[facility] 1.2840.114 350.1.13.10 4.2.7.2.686 [id number] [facility] 2025-05-25 11:00:00 2025-05-25 11:20:00 [facility] 1.2840.114 350.1.13.10 4.2.7.2.686 [id number] [facility] 2025-05-22 15:20:00 2025-05-22 15:20:00 Outpatient PADMINI GUTIÉRREZFORMERLY [facility] [id number] [facility] 2025-04-20 00:00:00 2025-05-08 17:04:12 Refill Janey [facility] 1.2840.114 350.1.13.10 4.2.7.2.686 [id number] [facility] 2025-04-20 00:00:00 2025-04-20 16:40:06 Refill Janey [facility] 1.2840.114 350.1.13.10 4.2.7.2.686 [id number] [facility] 2025-04-19 13:00:00 2025-04-19 13:36:27 Office Visit R Janey [facility] BUILDING 1.2840.114 350.1.13.10 4.2.7.2.686 [id number] [facility] 2025-04-03 00:00:00 2025-04-03 09:51:49 Telephone Riley Granados [facility] 1.2840.114 350.1.13.10 4.2.7.2.686 [id number] [facility] 2025-03-31 00:00:00 2025-03-31 14:47:32 Transition of Care Yaz Jefferson Christine A [facility]ARN [facility] 1.2.840.114 350.1.13.10 4.2.7.2.686 [id number] [facility] 2025-03-27 00:08:00 2025-03-30 17:36:00 Hospital Encounter Jean-Pierre J[facility] [id number] [facility] 2025-03-29 00:00:00 2025-03-29 00:00:00 Outpatient ARIADNE RUBIO BASH[facility] [id number] [facility] 2025-03-27 00:00:00 2025-03-27 13:19:44 [facility]phone [facility] 1.2.840.114 350.1.13.10 4.2.7.2.686 [id number] [id number] [facility] 2025-03-24 00:00:00 2025-03-24 11:33:14 Refill SoloHillary [facility] 1.2.840.114 350.1.13.10 4.2.7.2.686 [id number] [facility] 2025-03-22 00:00:00 2025-03-23 09:23:18 Refill JoshuaDorene , [facility] 1.2.840.114 350.1.13.10 4.2.7.2.686 [id number] [facility] 2025-03-21 09:20:00 2025-03-21 09:48:45 [facility] 1.2.840.114 350.1.13.10 4.2.7.2.686 [id number] [facility] 2025-03-16 13:20:00 2025-03-16 13:20:00 Outpatient R OBI-DORENE , MARCEL OBI-DORENE [facility] [id number] [facility] 2025-03-13 00:00:00 2025-03-13 14:24:52 Telephone Janey [facility] 1.2.840.114 350.1.13.10 4.2.7.2.686 [id number] [facility] 2025-02-06 00:00:00 2025-03-11 18:20:50 Patient Secure Msg [facility] 1.2.840.114 350.1.13.10 4.2.7.2.686 [id number] [facility] 2025-03-07 00:00:00 2025-03-08 09:31:11 Natanael Lucas [facility] 1.2.840.114 350.1.13.10 4.2.7.2.686 [id number] [facility] 2025-02-01 00:00:00 2025-03-04 18:15:15 Patient Secure Msg Doctor Unassigned, Adwolf Doctor Unassigned, Adwolf [facility] 1.2.840.114 350.1.13.10 4.2.7.2.686 [id number] [facility] 2025-02-22 00:00:00 2025-02-22 16:33:53 Telephone [facility] 1.2840.114 350.1.13.10 4.2.7.2.686 [id number] [facility] 2025-02-22 11:20:00 2025-02-22 11:37:40 Outpatient R PADMINI FINKFORMERLY [facility] [id number] [facility] 2025-02-22 11:20:00 2025-02-22 11:37:40 Office Visit Jace [facility] 1.840.114 350.1.13.10 4.2.7.2.686 [id number] [facility] 2025-02-22 00:00:00 2025-02-22 00:00:00 Outpatient JACE [facility] [id number] [facility] 2025-02-20 00:00:00 2025-02-20 16:06:28 Telephone Lynn Doll [facility] 1.84.114 350.1.13.10 4.2.7.2.686 [id number] [facility] 2025-02-20 11:20:00 2025-02-20 12:22:22 Outpatient R OBI-DORENE , MARCEL [facility] [id number] [facility] 2025-02-20 11:20:00 2025-02-20 12:22:22 Office Visit Obi-Dorene Marcel [facility] 1.284.114 350.1.13.10 4.2.7.2.686 [id number] [facility] 2025-02-16 00:00:00 2025-02-16 16:52:29 Telephone Riley Granados [facility] 1.84.114 350.1.13.10 4.2.7.2.686 [id number] [facility] 2025-02-15 00:00:00 2025-02-15 16:57:35 Telephone Riley Granados [facility] 1.2.840.114 350.1.13.10 4.2.7.2.686 [id number] [facility] 2025-02-12 19:32:00 2025-02-14 19:25:00 Outpatient U ARIADNE LASSITER [facility] [id number] [facility] 2025-02-12 19:32:00 2025-02-14 19:25:00 Hospital Encounter Ariadne Lassiter [facility] 1.2.840.114 350.1.13.10 4.2.7.2.686 [id number] [facility] 2025-02-13 16:15:00 2025-02-13 17:15:00 Surgery Riley Granados [facility] 1.2.840.114 350.1.13.10 4.2.7.2.686 [id number] [facility] 2025-02-13 00:00:00 2025-02-13 17:10:10 Telephone Mauri Bettencourt [facility] 1.2.840.114 350.1.13.10 4.2.7.2.686 [id number] [facility] 2025-02-07 00:00:00 2025-02-07 15:03:28 Transition of Care Yaz Jefferson Christine A SHEARN [facility] 1.2.840.114 350.1.13.10 4.2.7.2.686 [id number] [facility] 2025-02-07 13:30:00 2025-02-07 13:30:00 Outpatient R LYNN DOLL [facility] [id number] [facility] 2025-02-06 00:00:00 2025-02-06 16:51:45 [facility]phone [facility] 1.2.840.114 350.1.13.10 4.2.7.2.686 [id number] [facility] 2025-02-06 11:10:00 2025-02-06 16:35:00 Hospital Encounter Parish Adela [facility] 1.2.840.114 350.1.13.10 4.2.7.2.686 [id number] [facility] 2025-02-06 09:40:00 2025-02-06 09:46:50 Outpatient R JACE [facility] [id number] [facility] 2025-02-06 09:40:00 2025-02-06 09:46:50 [facility] 1.2.840.114 350.1.13.10 4.2.7.2.686 [id number] [facility] 2025-02-06 08:20:00 2025-02-06 09:00:42 Office Visit Marcel Toth [facility] 1.2.840.114 350.1.13.10 4.2.7.2.686 [id number] [facility] 2025-01-31 00:00:00 2025-01-31 23:33:59 Telephone Marcel Toth 1.2.840.1 [id number] 3.104.2.7 .3.738601 .8 [id number] [facility] 2025-01-31 00:00:00 2025-01-31 16:26:32 Telephone ShobhaalexywilyLynn 1.2.840.1 [id number] 3.104.2.7 .3.874059 [id number] [facility] 2025-01-31 10:15:00 2025-01-31 10:30:00 Office Visit ShobhaLynn verdin 1.2.840.1 [id number] 3.104.2.7 .3.471433 .8 [id number] [facility] 2025-01-31 10:15:00 2025-01-31 10:15:00 Outpatient R ANGELLA LYNN [facility] [id number] [facility] 2025-01-30 10:15:00 2025-01-30 12:57:35 Outpatient R ORVILLE SHAW [facility] [id number] [facility] 2025-01-30 10:15:00 2025-01-30 12:57:35 Ancillary Visit [facility] 1.2.840.1 55428.1.1 3.104.2.7 .3.815730 .8 [id number] [facility] 2025-01-30 00:00:00 2025-01-30 00:00:00 Travel 1.2.840.1 60444.1.1 3.104.2.7 .3.206701 .8 1.2.840.114 350.1.13.10 4.2.7.3.698 084.8 [id number] [facility] 2025-01-26 00:00:00 2025-01-27 16:03:51 Telephone Marcel Toth 1.2.840.1 03884.1.1 3.104.2.7 .3.906172 .8 [id number] [facility] 2025-01-26 00:00:00 2025-01-26 11:13:30 Patient Outreach Shelby Obrien 1.2.840.1 52214.1.1 3.104.2.7 .3.331817 .8 [id number] [facility] 2025-01-26 00:00:00 2025-01-26 08:56:18 Patient Secure Msg Joshua-Marcel Catherine 1.2.840.1 63717.1.1 3.104.2.7 .3.292377 .8 [id number] [facility] 2025-01-23 16:15:00 2025-01-23 16:15:00 Outpatient R SALEEM ERICKSON [facility] [id number] [facility] 2025-01-23 00:00:00 2025-01-23 11:34:33 Telephone Mindy Andino 1.2.840.1 27325.1.1 3.104.2.7 .3.577487 .8 [id number] [facility] 2025-01-21 00:00:00 2025-01-21 00:00:00 Travel 1.2.840.1 76109.1.1 3.104.2.7 .3.906095 .8 1.2.840.114 350.1.13.10 4.2.7.3.698 084.8 [id number] [facility] 2025-01-17 16:00:00 2025-01-17 16:52:08 Outpatient R [facility]AW [facility] [id number] [facility] 2025-01-17 16:00:00 2025-01-17 16:52:08 Ancillary Visit [facility] 1.2.840.1 59298.1.1 3.104.2.7 .3.437085 .8 [id number] [facility] 2025-01-17 00:00:00 2025-01-17 00:00:00 Travel 1.2.840.1 77619.1.1 3.104.2.7 .3.838765 .8 1.2.840.114 350.1.13.10 4.2.7.3.698 084.8 [id number] [facility] 2025-01-16 09:45:00 2025-01-16 09:45:00 Outpatient R HALINA [facility]GAS [facility] [id number] [facility] 2025-01-06 00:00:00 2025-01-15 13:40:37 Patient Secure Msg Doctor Unassigned, Adwolf 1.2.840.1 05516.1.1 3.104.2.7 .3.617736 .8 [id number] [facility] 2025-01-10 11:08:00 2025-01-10 16:32:00 Emergency X BEHZADI, ALEX BEHCHERIE, ALEX [facility] E[facility] [id number] [facility] 2025-01-10 11:08:00 2025-01-10 16:32:00 Emergency Behzadi, Alex A 1.2.840.1 95342.1.1 3.104.2.7 .3.727549 .8 [id number] [facility] 2025-01-04 00:00:00 2025-01-10 02:04:43 Orders Only Doctor Unassigned, Adwolf 1.2.840.1 77729.1.1 3.104.2.7 .3.360797 .8 [id number] [facility] 2025-01-10 00:00:00 2025-01-10 00:00:00 Travel 1.2.840.1 26151.1.1 3.104.2.7 .3.704800 .8 1.2.840.114 350.1.13.10 4.2.7.3.698 084.8 [id number] [facility] 2025-01-06 00:00:00 2025-01-06 16:16:34 Patient Secure Msg Doctor Unassigned, Adwolf 1.2.840.1 08977.1.1 3.104.2.7 .3.106336 .8 [id number] [facility] 2025-01-05 00:00:00 2025-01-05 16:29:14 Telephone Marcel Toth 1.2.840.1 43477.1.1 3.104.2.7 .3.447381 .8 [id number] [facility] 2025-01-02 00:00:00 2025-01-04 08:07:52 Patient Secure Msg ObMarcel Thornton 1.2.840.1 31596.1.1 3.104.2.7 .3.080746 .8 [id number] [facility] 2024-12-30 00:00:00 2024-12-30 16:26:23 Telephone Lynn Doll 1.2.840.1 18386.1.1 3.104.2.7 .3.940095 .8 [id number] [facility] 2024-12-29 13:00:00 2024-12-29 13:30:43 Office Visit Allyson Fink 1.2.840.1 52363.1.1 3.104.2.7 .3.594566 .8 [id number] [facility] 2024-12-29 13:00:00 2024-12-29 13:00:00 Outpatient R ALLYSON FINK [facility] [id number] [facility] 2024-12-29 00:00:00 2024-12-29 00:00:00 Travel 1.2.840.1 32140.1.1 3.104.2.7 .3.155009 .8 1.2.840.114 350.1.13.10 4.2.7.3.698 084.8 [id number] [facility] 2024-12-28 08:15:00 2024-12-28 11:40:00 Outpatient R THUMINDY, MINDY [facility] CRAOLYN [id number] [facility] 2024-12-28 08:15:00 2024-12-28 11:40:00 Hospital Encounter Mindy Andino 1.2.840.1 78113.1.1 3.104.2.7 .3.985158 .8 [id number] [facility] 2024-12-28 08:50:00 2024-12-28 09:55:00 Surgery Mindy Andino 1.2.840.1 06094.1.1 3.104.2.7 .3.618435 .8 [id number] [facility] 2024-12-28 08:46:00 2024-12-28 09:45:00 Anesthesia Event Brennen Abbott Joshua 1.2.840.1 55609.1.1 3.104.2.7 .3.770795 .8 [id number] [facility] 2024-12-26 00:00:00 2024-12-26 13:26:58 Refill Marcel Toth 1.2.840.1 97695.1.1 3.104.2.7 .3.790999 .8 [id number] [facility] 2024-12-22 00:00:00 2024-12-22 13:46:07 Telephone Lynn Doll 1.2.840.1 93659.1.1 3.104.2.7 .3.364800 .8 [id number] [facility] 2024-12-20 00:00:00 2024-12-20 17:41:57 Telephone Lynn Doll 1.2.840.1 58162.1.1 3.104.2.7 .3.055197 .8 [id number] [facility] 2024-12-20 11:45:00 2024-12-20 13:16:33 Outpatient R LYNN DOLL [facility] [id number] [facility] 2024-12-20 11:45:00 2024-12-20 13:16:33 Office Visit Lynn Doll 1.2.840.1 97526.1.1 3.104.2.7 .3.472463 .8 [id number] [facility] 2024-12-19 00:00:00 2024-12-19 00:00:00 Travel 1.2.840.1 14091.1.1 3.104.2.7 .3.936822 .8 1.2.840.114 350.1.13.10 4.2.7.3.698 084.8 [id number] [facility] 2024-12-12 00:00:00 2024-12-13 19:19:40 Telephone Marcel Toth 1.2.840.1 01643.1.1 3.104.2.7 .3.649658 .8 [id number] [facility] 2024-12-12 00:00:00 2024-12-13 11:45:29 Refill Allyson Fink 1.2.840.1 92150.1.1 3.104.2.7 .3.569378 .8 [id number] [facility] 2024-11-08 00:00:00 2024-12-10 18:19:20 Patient Secure Msg ObMarcel Thornton 1.2.840.1 50437.1.1 3.104.2.7 .3.613806 .8 [id number] [facility] 2024-03-18 00:00:00 2024-12-10 07:42:05 Orders Only Doctor Unassigned, Adwolf Doctor Unassigned, Adwolf [facility] 1.2.840.114 350.1.13.10 4.2.7.2.686 [id number] [facility] 2024-07-22 00:00:00 2024-12-10 06:54:43 Orders Only Gabriella Nobles Alexandria S [facility] 1.2.840.114 350.1.13.10 4.2.7.2.686 [id number] [facility] 2024-02-22 00:00:00 2024-12-10 02:09:54 Orders Only Doctor Unassigned, Adwolf Doctor Unassigned, Adwolf [facility] ([facility]) 1.2.840.114 350.1.13.10 4.2.7.2.686 [id number] 009 [id number] [facility] 2024-12-06 13:00:00 2024-12-06 13:49:37 Outpatient ORVILLE DONIS CRAIG [facility] [id number] [facility] 2024-12-06 13:00:00 2024-12-06 13:49:37 Ancillary Visit [facility] 1.2.840.1 46610.1.1 3.104.2.7 .3.023378 .8 [id number] [facility] 2024-12-06 11:40:00 2024-12-06 12:53:01 Outpatient LASHA DELCID HOWARD [facility] [id number] [facility] 2024-12-06 11:40:00 2024-12-06 12:53:01 Office Visit Lasha Aguilar 1.2.840.1 45577.1.1 3.104.2.7 .3.808668 .8 [id number] [facility] 2024-12-06 10:40:00 2024-12-06 10:40:00 Outpatient LASHA DELCID HOWARD [facility] [id number] [facility] 2024-12-06 00:00:00 2024-12-06 00:00:00 Travel 1.2.840.1 78155.1.1 3.104.2.7 .3.081381 .8 1.2.840.114 350.1.13.10 4.2.7.3.698 084.8 [id number] [facility] 2024-11-24 16:15:00 2024-11-24 16:15:00 Outpatient HALINA LOMELI [facility] [id number] [facility] 2024-11-22 16:00:00 2024-11-22 16:59:18 Outpatient R ORVILLE SHAW CRAIG [facility] [id number] [facility] 2024-11-22 16:00:00 2024-11-22 16:59:18 Ancillary Visit [facility] 1.2.840.1 80214.1.1 3.104.2.7 .3.391650 .8 [id number] [facility] 2024-11-21 00:00:00 2024-11-21 20:52:05 Refill Robert Tothma 1.2.840.1 31534.1.1 3.104.2.7 .3.638782 .8 [id number] [facility] 2024-11-11 00:00:00 2024-11-17 08:29:53 Telephone Bobbi Saunders 1.2.840.1 38990.1.1 3.104.2.7 .3.117640 .8 [id number] [facility] 2024-11-16 14:19:00 2024-11-16 18:15:00 Emergency X KIAH GARCIA [facility] [id number] [facility] 2024-11-16 14:19:00 2024-11-16 18:15:00 Emergency Kiah Garcia 1.2.840.1 73671.1.1 3.104.2.7 .3.606737 .8 [id number] [facility] 2024-11-16 00:00:00 2024-11-16 00:00:00 Travel 1.2.840.1 38840.1.1 3.104.2.7 .3.066494 .8 1.2.840.114 350.1.13.10 4.2.7.3.698 084.8 [id number] [facility] 2024-11-11 08:30:00 2024-11-11 09:17:17 Outpatient R BOBBI SAUNDERS [facility] [id number] [facility] 2024-11-11 08:30:00 2024-11-11 09:17:17 Office Visit Bobbi Saunders 1.2.840.1 60386.1.1 3.104.2.7 .3.434430 .8 [id number] [facility] 2024-11-11 00:00:00 2024-11-11 00:00:00 Scanned Documents Doctor Unassigned, Adwolf 1.2.840.1 44555.1.1 3.104.2.7 .3.437312 .8 [id number] [facility] 2024-11-11 00:00:00 2024-11-11 00:00:00 Travel 1.2.840.1 36815.1.1 3.104.2.7 .3.264950 .8 1.2.840.114 350.1.13.10 4.2.7.3.698 084.8 [id number] [facility] 2024-11-09 00:00:00 2024-11-09 14:07:28 Pat Sommer 1.2.840.1 99264.1.1 3.104.2.7 .3.845552 .8 [id number] [facility] 2024-11-09 00:00:00 2024-11-09 11:28:53 Telephone ObMarcel Thornton 1.2.840.1 02766.1.1 3.104.2.7 .3.302754 .8 [id number] [facility] 2024-11-07 00:00:00 2024-11-08 08:03:49 Patient Secure Msg Marcel Toth 1.2.840.1 36186.1.1 3.104.2.7 .3.616049 .8 [id number] [facility] 2024-11-07 09:00:00 2024-11-07 09:02:19 Consultant Rn Visit SolowilyAdebayoDorene Jean-PierreMarcel 2, Adc Lab 1.2.840.1 42799.1.1 3.104.2.7 .3.962558 .8 [id number] [facility] 2024-11-07 08:00:00 2024-11-07 08:39:08 Outpatient R MARCEL TOTH [facility] [id number] [facility] 2024-11-07 08:00:00 2024-11-07 08:39:08 Office Visit Marcel Toth 1.2.840.1 97419.1.1 3.104.2.7 .3.259280 .8 [id number] [facility] 2024-11-07 00:00:00 2024-11-07 00:00:00 Travel 1.2.840.1 11611.1.1 3.104.2.7 .3.085241 .8 1.2.840.114 350.1.13.10 4.2.7.3.698 084.8 [id number] [facility] 2024-10-28 14:30:00 2024-10-28 14:30:00 Outpatient R BOBBI SAUNDERS [facility] [id number] [facility] 2024-10-11 00:00:00 2024-10-11 13:46:03 [facility] 1.84.114 350.1.13.10 4.2.7.2.686 [id number] 044 [id number] [facility] 2024-10-11 10:00:00 2024-10-11 11:01:38 Outpatient R LYNN DOLL [facility] [id number] [facility] 2024-10-11 10:00:00 2024-10-11 11:01:38 Office Visit Angella [facility] 1..114 350.1.13.10 4.2.7.2.686 [id number] 204 [id number] [facility] 2024-10-10 15:00:00 2024-10-10 15:30:00 Nurse Visit Nurse, [facility] Surgery Lynn Doll Nurse, Lk Surgery [facility]IMARY [facility] SPECIALTY C[facility] 1..114 350.1.13.10 4.2.7.2.686 [id number] 204 [id number] [facility] 2024-10-10 15:00:00 2024-10-10 15:00:00 Outpatient R [facility] [id number] [facility] 2024-10-06 00:00:00 2024-10-07 17:39:52 Telephone Angella [facility] 1..114 350.1.13.10 4.2.7.2.686 [id number] [facility] 2024-10-04 00:00:00 2024-10-04 13:33:26 Patient Outreach Shelby [facility]rien [facility] 1.2.840.114 350.1.13.10 4.2.7.2.686 [id number] 044 [id number] [facility] 2024-10-04 13:00:00 2024-10-04 13:00:00 Outpatient R ALLYSON FINK [facility] [id number] [facility] 2024-09-28 11:20:00 2024-09-28 11:20:00 Outpatient R OBI-DORENE , MARCEL OBI-DORENE , MARCEL [facility] [id number] [facility] 2024-08-22 00:00:00 2024-09-24 18:22:39 Patient Secure Msg Angella [facility] 1.2840.114 350.1.13.10 4.2.7.2.686 [id number] 204 [id number] [facility] 2024-08-23 00:00:00 2024-09-24 18:21:14 Patient Secure Msg Soloi-Marcel Catherine [facility] NAL BUILD[facility] 1.2.840.114 350.1.13.10 4.2.7.2.686 [id number] 044 [id number] [facility] 2024-08-23 00:00:00 2024-09-24 18:20:44 Patient Secure Msg Padmini Finkgavi [facility] NAL BU[facility] 1.2.840.114 350.1.13.10 4.2.7.2.686 [id number] 059 [id number] [facility] 2024-09-20 00:00:00 2024-09-20 14:36:25 Patient Outreach Shelby Obrien Jocelyn [facility] NAL BU[facility] 1.2.840.114 350.1.13.10 4.2.7.2.686 [id number] 044 [id number] [facility] 2024-09-19 00:00:00 2024-09-19 14:35:12 Nurse Triage Latosha Roberts Sharon A [facility] ([facility]) 1.2.840.114 350.1.13.10 4.2.7.2.686 [id number] 019 [id number] [facility] 2024-08-12 00:00:00 2024-09-17 18:27:14 Patient Secure Msg Angella [facility] 1.2.840.114 350.1.13.10 4.2.7.2.686 [id number] 204 [id number] [facility] 2024-09-15 00:00:00 2024-09-15 13:52:46 Telephone [facility]bi[facility]Dorene [facility] 1.2.840.114 350.1.13.10 4.2.7.2.686 [id number] 044 [id number] [facility] 2024-09-13 00:00:00 2024-09-13 13:41:18 Telephone ObExitround-Dorene , [facility] NAL BUILDING 1.2.840.114 350.1.13.10 4.2.7.2.686 [id number] 059 [id number] [facility] 2024-09-13 13:00:00 2024-09-13 13:28:57 [id number] 2024-09-13 13:00:00 2024-09-13 13:28:57 Office Visit Angella [facility] 1.2.840.114 350.1.13.10 4.2.7.2.686 [id number] 204 [id number] [facility] 2024-09-13 00:00:00 2024-09-13 12:24:17 Telephone ObExitround-Dorene , [facility] NAL BUILDING 1.2.840.114 350.1.13.10 4.2.7.2.686 [id number] 044 [id number] [facility] 2024-09-12 00:00:00 2024-09-12 09:53:24 [facility] 1.2.840.114 350.1.13.10 4.2.7.2.686 [id number] 044 [id number] [facility] 2024-09-08 00:00:00 2024-09-08 15:36:17 Telephone Janey [facility] BUILDING 1.2.840.114 350.1.13.10 4.2.7.2.686 [id number] 044 [id number] [facility] 2024-09-07 09:30:00 2024-09-07 10:30:00 Office Visit VincentMendoza lorenzo [facility] BUILDING 1.2.840.114 350.1.13.10 4.2.7.2.686 [id number] 092 [id number] [facility] 2024-09-07 09:30:00 2024-09-07 09:30:00 Outpatient R MENDOZA CHONG [facility] [id number] [facility] 2024-08-30 13:20:00 2024-08-30 13:20:00 Outpatient R MARCEL TOTH [facility] [id number] [facility] 2024-08-29 16:20:00 2024-08-29 16:20:00 Office Visit Janey [facility] NAL BUILDING 1.2.840.114 350.1.13.10 4.2.7.2.686 [id number] 044 [id number] [facility] 2024-08-29 16:20:00 2024-08-29 15:48:57 Outpatient R MARCEL TOTH [facility] [id number] [facility] 2024-08-29 14:30:00 2024-08-29 14:57:07 Office Visit Roma Davison [facility] BUILDING 1.2.840.114 350.1.13.10 4.2.7.2.686 [id number] 059 [id number] [facility] 2024-08-29 13:00:00 2024-08-29 13:24:24 Nurse Visit Nurse, Adc Surgery Lynn Doll Nurse, Adc Surgery [facility] BUILDING 1.2.840.114 350.1.13.10 4.2.7.2.686 [id number] 204 [id number] [facility] 2024-08-26 00:00:00 2024-08-29 07:53:33 Telephone Radhao [facility] BUILDING 1.2.840.114 350.1.13.10 4.2.7.2.686 [id number] 044 [id number] [facility] 2024-08-22 00:00:00 2024-08-27 10:55:48 Telephone Lynn Doll [facility] SPECIAL[facility] C[facility] 1.2.840.114 350.1.13.10 4.2.7.2.686 [id number] 204 [id number] [facility] 2024-08-26 00:00:00 2024-08-26 14:20:01 Telephone Lynn Doll [facility] BUILDING 1.2.840.114 350.1.13.10 4.2.7.2.686 [id number] 204 [id number] [facility] 2024-08-24 19:41:00 2024-08-26 14:08:00 Outpatient R JHONY [facility] [id number] [facility] 2024-08-24 19:41:00 2024-08-26 14:08:00 Hospital Encounter Jhony Madden [facility] 1.2.840.114 350.1.13.10 4.2.7.2.686 [id number] 081 [id number] [facility] 2024-08-23 00:00:00 2024-08-26 11:27:57 Patient Secure Msg Laney, Roma [facility] NAL BUILDING 1.2.840.114 350.1.13.10 4.2.7.2.686 [id number] 059 [id number] [facility] 2024-08-25 09:35:00 2024-08-25 11:44:00 Surgery Lynn Doll [facility] 1.2.840.114 350.1.13.10 4.2.7.2.686 [id number] 020 [id number] [facility] 2024-08-25 00:00:00 2024-08-25 09:09:55 Patient Outreach Shelby Obrien [facility] 1.2.840.114 350.1.13.10 4.2.7.2.686 [id number] 044 [id number] [facility] 2024-08-24 00:00:00 2024-08-24 16:21:31 Telephone Angella Lynn [facility] BUILDING 1.2.840.114 350.1.13.10 4.2.7.2.686 [id number] [facility] 2024-08-24 00:00:00 2024-08-24 08:15:03 Telephone Marcel Toth [facility] NAL BUILDING 1.2.840.114 350.1.13.10 4.2.7.2.686 [id number] 044 [id number] [facility] 2024-08-23 11:06:00 2024-08-23 16:47:00 Emergency X SANDRO RAMIREZSANDRO Cook [facility] E[facility] [id number] [facility] 2024-08-23 11:06:00 2024-08-23 16:47:00 Emergency Sandro Ramirez Krishan [facility] 1.2840.114 350.1.13.10 4.2.7.2.686 [id number] 084 [id number] [facility] 2024-08-23 10:00:00 2024-08-23 10:46:46 Outpatient R MARCEL TOTH [facility] [id number] [facility] 2024-08-23 10:00:00 2024-08-23 10:46:46 [facility] BU[facility] 1.2840.114 350.1.13.10 4.2.7.2.686 [id number] 044 [id number] [facility] 2024-08-21 00:00:00 2024-08-21 11:11:50 Telephone Lynn Doll [facility] 1.2840.114 350.1.13.10 4.2.7.2.686 [id number] 204 [id number] [facility] 2024-08-19 00:00:00 2024-08-19 13:18:45 Patient Outreach Shelby Obrien Joc[facility] 1.2.840.114 350.1.13.10 4.2.7.2.686 [id number] 044 [id number] [facility] 2024-08-18 00:00:00 2024-08-18 16:47:28 Patient Outreach Shelby Obrien Jocelyn [facility] NAL BUILDING 1.2.840.114 350.1.13.10 4.2.7.2.686 [id number] 044 [id number] [facility] 2024-08-18 13:15:00 2024-08-18 13:30:00 Consultant Rn Visit 2, Adc Lab Lynn Doll 2, [facility] 1.2.840.114 350.1.13.10 4.2.7.2.686 [id number] [facility] 2024-08-18 13:15:00 2024-08-18 13:15:00 Outpatient R LYNN DOLL [facility] [id number] [facility] 2024-08-17 00:00:00 2024-08-17 09:43:06 Telephone Ketty Starks Roxie L [facility] 1.2840.114 350.1.13.10 4.2.7.2.686 [id number] 071 [id number] [facility] 2024-08-15 00:00:00 2024-08-16 16:49:23 Patient Secure Msg Angella [facility] C[facility] 1.2840.114 350.1.13.10 4.2.7.2.686 [id number] 204 [id number] [facility] 2024-08-16 14:00:00 2024-08-16 14:40:05 Outpatient R LYNN DOLL [facility] [id number] [facility] 2024-08-16 14:00:00 2024-08-16 14:40:05 Nurse Visit Nurse, [facility] Surgery Lynn Doll Nurse, [facility] Surgery [facility] PRIMARY AND SPECIALTY CARE 1.2840.114 350.1.13.10 4.2.7.2.686 [id number] 204 [id number] [facility] 2024-08-16 00:00:00 2024-08-16 08:54:06 Telephone Angella [facility] C[facility] 1.2.840.114 350.1.13.10 4.2.7.2.686 [id number] 204 [id number] [facility] 2024-08-15 00:00:00 2024-08-15 20:02:56 [facility] 1.2.840.114 350.1.13.10 4.2.7.2.686 [id number] [facility] 2024-08-15 00:00:00 2024-08-15 17:09:22 Telephone Sumanth [facility] BUILDING 1.2.840.114 350.1.13.10 4.2.7.2.686 [id number] 204 [id number] [facility] 2024-08-15 13:02:00 2024-08-15 16:27:00 Emergency X WAYNE ZAPATA PHILLIP [facility] ERT [id number] [facility] 2024-08-15 13:02:00 2024-08-15 16:27:00 Emergency Wayne Zapata [facility] 1.2.840.114 350.1.13.10 4.2.7.2.686 [id number] 084 [id number] [facility] 2024-08-15 15:00:00 2024-08-15 15:00:00 Outpatient R LANEY, AFAQ [facility] [id number] [facility] 2024-08-15 00:00:00 2024-08-15 11:09:53 Nurse Triage Latosha Roberts Sharon [facility] 1.2.840.114 350.1.13.10 4.2.7.2.686 [id number] [id number] [facility] 2024-08-15 00:00:00 2024-08-15 10:09:35 Patient Outreach Obrien, Shelby Darnell [facility] 1.2.840.114 350.1.13.10 4.2.7.2.686 [id number] [facility] 2024-07-11 00:00:00 2024-08-13 18:25:29 Patient Secure Msg Lasha Aguilar [facility] 1.2.840.114 350.1.13.10 4.2.7.2.686 [id number] [id number] [facility] 2024-07-12 00:00:00 2024-08-13 18:22:06 Patient Secure Msg Allyson Fink [facility] 1.2.840.114 350.1.13.10 4.2.7.2.686 [id number] [id number] [facility] 2024-07-13 00:00:00 2024-08-13 18:21:34 Patient Secure Msg Doctor Unassigned, Adwolf Doctor Unassigned, Adwolf [facility] ([facility] 1.2.840.114 350.1.13.10 4.2.7.2.686 [id number] [id number] [facility] 2024-08-11 00:00:00 2024-08-11 15:23:27 Patient Outreach Micah Shelby Darnell [facility] 1.2.840.114 350.1.13.10 4.2.7.2.686 [id number] [id number] [facility] 2024-08-11 14:15:00 2024-08-11 15:09:39 Outpatient RON CARRASQUILLO [facility] [id number] [facility] 2024-08-11 14:15:00 2024-08-11 15:09:39 Office Visit Ron Hoover [facility] 1.2.840.114 350.1.13.10 4.2.7.2.686 [id number] [facility] 2024-08-11 00:00:00 2024-08-11 14:14:41 Telephone Lynn Doll [facility] 1.2.840.114 350.1.13.10 4.2.7.2.686 [id number] [facility] 2024-08-09 08:49:58 2024-08-09 23:59:00 Outpatient LYNN BLANKENSHIP [facility] [id number] [facility] 2024-08-09 08:49:58 2024-08-09 23:59:00 Hospital Encounter Angella Lynn [facility] 1.2.840.114 350.1.13.10 4.2.7.2.686 [id number] [facility] 2024-08-09 00:00:00 2024-08-09 09:29:44 Patient Outreach Shelby [facility] 1.2.840.114 350.1.13.10 4.2.7.2.686 [id number] [id number] [facility] 2024-08-08 00:00:00 2024-08-08 21:21:32 Telephone [facility] 1.2.840.114 350.1.13.10 4.2.7.2.686 [id number] 044 [id number] [facility] 2024-08-08 11:40:00 2024-08-08 13:15:06 Outpatient LASHA DELCID [facility] [id number] [facility] 2024-08-08 11:40:00 2024-08-08 13:15:06 Office Visit Lasha Aguilar Ayden [facility] 1.2.840.114 350.1.13.10 4.2.7.2.686 [id number] [id number] [facility] 2024-08-08 00:00:00 2024-08-08 08:44:36 Telephone Obi-Dorene [facility] 1.2.840.114 350.1.13.10 4.2.7.2.686 [id number] [id number] [facility] 2024-08-02 00:00:00 2024-08-05 11:57:32 Telephone Angella [facility] 1.2840.114 350.1.13.10 4.2.7.2.686 [id number] [facility] 2024-08-04 09:30:00 2024-08-04 09:30:00 Outpatient R RON HOOVER [facility] [id number] [facility] 2024-08-03 00:00:00 2024-08-03 16:17:35 Telephone ForrstDorene [facility] 1.2.840.114 350.1.13.10 4.2.7.2.686 [id number] 044 [id number] [facility] 2024-08-03 00:00:00 2024-08-03 10:41:36 Telephone Angella [facility] 1.2.840.114 350.1.13.10 4.2.7.2.686 [id number] [facility] 2024-08-02 08:30:00 2024-08-02 09:32:37 Outpatient R [facility]LLA [facility] [id number] [facility] 2024-08-02 08:30:00 2024-08-02 09:32:37 Office Visit Angella [facility] 1.2.840.114 350.1.13.10 4.2.7.2.686 [id number] [facility] 2024-08-02 00:00:00 2024-08-02 09:29:45 Telephone Angella [facility] 1.2.840.114 350.1.13.10 4.2.7.2.686 [id number] 204 [id number] [facility] 2024-07-28 00:00:00 2024-07-28 11:36:00 Patient Outreach Shelby Obrien Jocelyn [facility] 1.2.840.114 350.1.13.10 4.2.7.2.686 [id number] 044 [id number] [facility] 2024-07-25 00:00:00 2024-07-25 16:03:56 Case Management La Nena Aaron Katherine [facility] 1.2.840.114 350.1.13.10 4.2.7.2.686 [id number] [id number] [facility] 2024-07-25 11:20:00 2024-07-25 12:06:43 Outpatient R [facility] [id number] [facility] 2024-07-25 11:20:00 2024-07-25 12:06:43 Office Visit Marcel Toth [facility] 1.2.840.114 350.1.13.10 4.2.7.2.686 [id number] 044 [id number] [facility] 2024-06-17 00:00:00 2024-07-23 18:25:41 Patient Secure Msg Doctor Unassigned, Adwolf Doctor Unassigned, Adwolf [facility] BUILDING 1.2.840.114 350.1.13.10 4.2.7.2.686 [id number] 044 [id number] [facility] 2024-06-22 00:00:00 2024-07-23 18:21:03 Patient Secure Msg Doctor Unassigned, Adwolf Doctor Unassigned, Adwolf [facility] 1.2.840.114 350.1.13.10 4.2.7.2.686 [id number] 019 [id number] [facility] 2024-07-05 00:00:00 2024-07-23 06:28:22 Telephone [facility] 1.2.840.114 350.1.13.10 4.2.7.2.686 [id number] 044 [id number] [facility] 2024-07-22 10:00:00 2024-07-22 10:00:00 Consultant Rn Visit 2, Adc Lab Lynn Doll 2, Adc Lab [facility] BUILDING 1.2.840.114 350.1.13.10 4.2.7.2.686 [id number] [facility] 2024-07-22 10:00:00 2024-07-22 09:45:54 Outpatient R LYNN [facility]LL [facility] [id number] [facility] 2024-07-18 15:21:13 2024-07-18 23:59:00 Hospital Encounter JacePadminisidney [facility] BUILD[facility] 1.2.840.114 350.1.13.10 4.2.7.2.686 [id number] [facility] 2024-07-18 14:40:00 2024-07-18 15:20:32 Outpatient R ALLYSON FINK [facility] [id number] [facility] 2024-07-18 14:40:00 2024-07-18 15:20:32 Office Visit Padmini Finkgavi [facility] NAL BUILDING 1.2.840.114 350.1.13.10 4.2.7.2.686 [id number] 059 [id number] [facility] 2024-07-17 00:00:00 2024-07-18 14:02:30 Refill Pat Ochoa [facility] NAL BUILD[facility] 1.2840.114 350.1.13.10 4.2.7.2.686 [id number] 044 [id number] [facility] 2024-07-14 00:00:00 2024-07-14 16:10:39 Patient Secure Msg Doctor Unassigned, Adwolf Doctor Unassigned, Adwolf [facility] 1.2840.114 350.1.13.10 4.2.7.2.686 [id number] [facility] 2024-07-12 00:00:00 2024-07-12 16:58:10 Transition of Care Jayashree Josue Kristi L [facility] 1.2840.114 350.1.13.10 4.2.7.2.686 [id number] [facility] 2024-07-12 00:00:00 2024-07-12 16:53:11 Transition of Care Jayashree Josue Kristi L [facility] 1.2840.114 350.1.13.10 4.2.7.2.686 [id number] [facility] 2024-07-12 13:30:00 2024-07-12 14:19:51 Outpatient R LYNN DOLL [facility] [id number] [facility] 2024-07-12 13:30:00 2024-07-12 14:19:51 Office Visit Angella [facility] 1.2.840.114 350.1.13.10 4.2.7.2.686 [id number] [facility] 2024-07-11 00:00:00 2024-07-12 14:01:26 Patient Secure Msg Allyson Fink [facility] BUILD[facility] 1.2840.114 350.1.13.10 4.2.7.2.686 [id number] 059 [id number] [facility] 2024-07-07 15:31:00 2024-07-10 11:50:00 Outpatient X DONAVON [facility] [id number] [facility] 2024-07-07 15:31:00 2024-07-10 11:50:00 Emergency Juan aClvillo, Anita [facility] 1.2840.114 350.1.13.10 4.2.7.2.686 [id number] 036 [id number] [facility] 2024-06-03 00:00:00 2024-07-09 18:25:38 Patient Secure Msg Joshua-Dorene [facility] BUILDING 1.2840.114 350.1.13.10 4.2.7.2.686 [id number] 044 [id number] [facility] 2024-07-08 00:00:00 2024-07-08 08:59:08 [facility] 1.2.840.114 350.1.13.10 4.2.7.2.686 [id number] 044 [id number] [facility] 2024-07-07 14:00:00 2024-07-07 15:20:05 Outpatient R APRIL HERNANDEZ [facility] [id number] [facility] 2024-07-07 14:00:00 2024-07-07 15:20:05 Office Visit April Hernandez [facility] 1.2.840.114 350.1.13.10 4.2.7.2.686 [id number] 092 [id number] [facility] 2024-07-05 00:00:00 2024-07-06 08:37:03 Patient Secure Msg Obi-Dorene , [facility] BUILDING 1.2.840.114 350.1.13.10 4.2.7.2.686 [id number] 044 [id number] [facility] 2024-07-04 00:00:00 2024-07-05 15:14:17 Patient Secure Msg Obi-Dorene , [facility] BUILDING 1.2.840.114 350.1.13.10 4.2.7.2.686 [id number] 044 [id number] [facility] 2024-07-05 00:00:00 2024-07-05 10:53:58 Telephone ObiYemi [facility] BUILDING 1.2.840.114 350.1.13.10 4.2.7.2.686 [id number] 044 [id number] [facility] 2024-07-04 00:00:00 2024-07-04 08:33:16 Telephone Obi-Dorene [facility] BUILDING 1.2.840.114 350.1.13.10 4.2.7.2.686 [id number] 044 [id number] [facility] 2024-07-01 00:00:00 2024-07-02 20:42:12 Patient Secure Msg Obi-Dorene , [facility] BUILDING 1.2.840.114 350.1.13.10 4.2.7.2.686 [id number] 044 [id number] [facility] 2024-07-01 00:00:00 2024-07-01 08:34:15 Refill Janey [facility] BUILDING 1.2.840.114 350.1.13.10 4.2.7.2.686 [id number] 044 [id number] [facility] 2024-06-30 00:00:00 2024-07-01 08:19:37 Patient Secure Mstae Toth [facility] BUILDING 1.2.840.114 350.1.13.10 4.2.7.2.686 [id number] 044 [id number] [facility] 2024-06-29 00:00:00 2024-06-29 09:18:40 Telephone Andi Maier [facility] 1.2.840.114 350.1.13.10 4.2.7.2.686 [id number] 092 [id number] [facility] 2024-06-23 00:00:00 2024-06-23 12:06:09 Telephone Lasha Aguilar [facility] 1.2.840.114 350.1.13.10 4.2.7.2.686 [id number] [facility] 2024-06-20 00:00:00 2024-06-20 10:53:14 Telephone Lasha Aguilar [facility]?ELIN[facility] 1.2.840.114 350.1.13.10 4.2.7.2.686 [id number] 092 [id number] [facility] 2024-06-20 00:00:00 2024-06-20 10:23:18 Refill JacePadministefaniagavi [facility] BUILD[facility] 1..840.114 350.1.13.10 4.2.7.2.686 [id number] 059 [id number] [facility] 2024-06-17 15:20:00 2024-06-17 16:22:18 Outpatient R LASHA AGUILAR [facility] [id number] [facility] 2024-06-17 15:20:00 2024-06-17 16:22:18 Office Visit Lasha Aguilar [facility] 1.2.840.114 350.1.13.10 4.2.7.2.686 [id number] 092 [id number] [facility] 2024-06-17 00:00:00 2024-06-17 13:51:35 Patient Secure Msg Doctor Unassigned, Adwolf Doctor Unassigned, Adwolf [facility] 1.2.840.114 350.1.13.10 4.2.7.2.686 [id number] 044 [id number] [facility] 2024-06-17 00:00:00 2024-06-17 13:36:54 Patient Secure Msg Doctor Unassigned, Adwolf Doctor Unassigned, Adwolf [facility] BUILDING 1.2.840.114 350.1.13.10 4.2.7.2.686 [id number] 044 [id number] [facility] 2024-06-16 00:00:00 2024-06-17 10:32:26 Patient Secure Msg Obi-DoreneMarcel tong [facility] BUILDING 1.2.840.114 350.1.13.10 4.2.7.2.686 [id number] 044 [id number] [facility] 2024-06-13 11:20:00 2024-06-13 11:37:04 Outpatient R OBI-DORENE , [id number] 2024-06-13 11:20:00 2024-06-13 11:37:04 Office Visit Janey [facility] BUILDING 1.2.840.114 350.1.13.10 4.2.7.2.686 [id number] 044 [id number] [facility] 2024-06-08 00:00:00 2024-06-08 08:12:23 Telephone Joshua-Dorene [facility] BUILDING 1.2.840.114 350.1.13.10 4.2.7.2.686 [id number] 044 [id number] [facility] 2024-06-04 00:00:00 2024-06-06 23:08:47 RefPat Escobar [facility] BUILD[facility] 1.2.840.114 350.1.13.10 4.2.7.2.686 [id number] 044 [id number] [facility] 2024-06-05 00:00:00 2024-06-06 11:27:22 RefKayden Escobarssica [facility] BUILDING 1.2.840.114 350.1.13.10 4.2.7.2.686 [id number] 044 [id number] [facility] 2024-06-06 00:00:00 2024-06-06 09:30:37 Allyson Tineo [facility] BUILD[facility] 1.2.840.114 350.1.13.10 4.2.7.2.686 [id number] 059 [id number] [facility] 2024-06-03 00:00:00 2024-06-03 09:24:18 Patient Secure Msg Ob-Dorene [facility] NAL BUILDING 1.2.840.114 350.1.13.10 4.2.7.2.686 [id number] 044 [id number] [facility] 2024-06-02 09:22:31 2024-06-02 23:59:00 Outpatient R OBI-DORENE , MARCEL OBI-DORENE , MARCEL [facility] [id number] [facility] 2024-06-02 09:22:31 2024-06-02 23:59:00 Hospital Encounter Obi-Dorene , Marcel [facility] 1.2.840.114 350.1.13.10 4.2.7.2.686 [id number] 806 [id number] [facility] 2024-06-02 14:45:00 2024-06-02 15:07:24 Office Visit Krishan Macias Anthony [facility] 1.2.840.114 350.1.13.10 4.2.7.2.686 [id number] 027 [id number] [facility] 2024-05-31 13:15:00 2024-05-31 13:30:02 Consultant Rn Visit 2, Adc Lab Obi-Dorene Marcel 2, Adc Lab [facility] 1.2.840.114 350.1.13.10 4.2.7.2.686 [id number] [facility] 2024-05-31 13:15:00 2024-05-31 13:15:00 Outpatient R OBI-DORENE , MARCEL OBI-DORENE , MARCEL [facility] [id number] [facility] 2024-05-31 11:15:00 2024-05-31 11:15:00 Outpatient R [facility] [id number] [facility] 2024-05-30 00:00:00 2024-05-30 09:55:54 Rafael Tineojun [facility] BUILD[facility] 1.2.840.114 350.1.13.10 4.2.7.2.686 [id number] 059 [id number] [facility] 2024-05-26 13:20:00 2024-05-26 16:02:06 Office Visit Ob-Dorene [facility] BUILDING 1.2.840.114 350.1.13.10 4.2.7.2.686 [id number] 044 [id number] [facility] 2024-05-26 13:20:00 2024-05-26 16:02:06 Outpatient R JOSHUA-MARCEL CATHERINE OBI-DORENE [facility] [id number] [facility] 2024-05-26 13:00:00 2024-05-26 14:29:46 Office Visit Janey [facility] 1.2.840.114 350.1.13.10 4.2.7.2.686 [id number] 044 [id number] [facility] 2024-05-24 12:16:38 2024-05-24 23:59:00 [facility] [id number] [facility] 2024-05-24 12:16:38 2024-05-24 23:59:00 Hospital Encounter Ron Hoover [facility] BUILDING 1.2.840.114 350.1.13.10 4.2.7.2.686 [id number] [facility] 2024-05-05 00:00:00 2024-05-05 00:00:00 Telephone Pat Ochoa [facility] BUILDING 1.2.840.114 350.1.13.10 4.2.7.2.686 [id number] 044 [id number] [facility] 2024-05-03 11:00:00 2024-05-03 11:00:00 Outpatient R RON HOOVER [facility] [id number] [facility] 2024-04-29 00:00:00 2024-04-29 13:34:24 Telephone Obwily-Dorene , Marcel [facility] N[facility] 1.2.840.114 350.1.13.10 4.2.7.2.686 [id number] 044 [id number] [facility] 2024-04-14 15:15:00 2024-04-14 15:46:47 Outpatient R SNEHA RON [facility] [id number] [facility] 2024-04-14 15:15:00 2024-04-14 15:46:47 Office Visit Sneha Ron [facility] 1..840.114 350.1.13.10 4.2.7.2.686 [id number] [facility] 2024-04-14 00:00:00 2024-04-14 13:31:03 [facility] 1.2.840.114 350.1.13.10 4.2.7.2.686 [id number] 044 [id number] [facility] 2024-04-04 13:40:00 2024-04-04 13:54:04 Outpatient R ALLYSON FINK [facility] [id number] [facility] 2024-04-04 13:40:00 2024-04-04 13:54:04 Office [facility] 1.2.840.114 350.1.13.10 4.2.7.2.686 [id number] 059 [id number] [facility] 2024-03-29 00:00:00 2024-03-31 12:22:49 Patient Outreach Michelle Olmstead [facility] BUILDING 1.2.840.114 350.1.13.10 4.2.7.2.686 [id number] 044 [id number] [facility] 2024-03-29 14:00:00 2024-03-29 14:39:14 Outpatient R PAT OCHOA [facility] [id number] [facility] 2024-03-29 14:00:00 2024-03-29 14:39:14 Office Visit Pat Ochoa [facility] BUILDING 1.2.840.114 350.1.13.10 4.2.7.2.686 [id number] [id number] [facility] 2024-03-22 05:22:00 2024-03-24 12:30:00 Inpatient R SNEHA, [facility] [id number] [facility] 2024-03-22 05:22:00 2024-03-24 12:30:00 Hospital Encounter [facility] 1.2.840.114 350.1.13.10 4.2.7.2.686 [id number] [facility] 2024-03-23 00:00:00 2024-03-23 14:50:58 Telephone Pat Ochoa [facility] BUILDING 1.2.840.114 350.1.13.10 4.2.7.2.686 [id number] 044 [id number] [facility] 2024-03-22 07:20:00 2024-03-22 11:52:00 Surgery [facility] 1.2.840.114 350.1.13.10 4.2.7.2.686 [id number] [facility] 2024-03-19 10:30:00 2024-03-19 10:45:00 Consultant Rn Visit Pob, Adc Lab Main [facility] BUILDING 1.2.840.114 350.1.13.10 4.2.7.2.686 [id number] [facility] 2024-03-19 10:30:00 2024-03-19 10:30:00 Outpatient RON CARRASQUILLO [facility] [id number] [facility] 2024-03-17 00:00:00 2024-03-17 16:04:33 Telephone Pat Ochoa [facility] 1.2.840.114 350.1.13.10 4.2.7.2.686 [id number] 044 [id number] [facility] 2024-03-14 00:00:00 2024-03-14 13:37:35 Patient Secure Msg Doctor Unassigned, Adwolf [facility] 1.2.840.114 350.1.13.10 4.2.7.2.686 [id number] 044 [id number] [facility] 2024-03-11 00:00:00 2024-03-11 15:05:51 Telephone Pat Ochoa [facility] 1.2.840.114 350.1.13.10 4.2.7.2.686 [id number] 044 [id number] [facility] 2024-03-10 15:00:00 2024-03-10 15:15:00 Office Visit Ron Hoover [facility] 1.2.840.114 350.1.13.10 4.2.7.2.686 [id number] [facility] 2024-03-10 15:00:00 2024-03-10 15:00:00 Outpatient RON CARRASQUILLO [facility] [id number] [facility] 2024-03-08 13:00:00 2024-03-08 13:00:00 Outpatient RON CARRASQUILLO [facility] [id number] [facility] 2024-01-29 00:00:00 2024-03-05 18:13:43 Patient Secure Msg Doctor Unassigned, Adwolf [facility] 1.2.840.114 350.1.13.10 4.2.7.2.686 [id number] 044 [id number] [facility] 2024-03-03 14:00:00 2024-03-03 14:00:00 Office Visit Pat Ochoa [facility] 1.2.840.114 350.1.13.10 4.2.7.2.686 [id number] 044 [id number] [facility] 2024-03-03 00:00:00 2024-03-03 13:18:42 Patient Outreach IshanMichelle [facility] 1.2.840.114 350.1.13.10 4.2.7.2.686 [id number] 044 [id number] [facility] 2024-03-03 14:00:00 2024-03-03 12:57:12 Outpatient R KAYLYNNKAYDENPAT [facility] [id number] [facility] 2024-03-03 09:20:00 2024-03-03 09:20:00 [facility] 1.2.840.114 350.1.13.10 4.2.7.2.686 [id number] 059 [id number] [facility] 2024-03-03 09:20:00 2024-03-03 09:07:37 [id number] 2024-03-02 23:27:00 2024-03-03 01:59:00 Emergency KemptonRosalva hansen [facility] 1.2.840.114 350.1.13.10 4.2.7.2.686 [id number] [id number] [facility] 2024-03-02 00:00:00 2024-03-02 16:26:41 Telephone Pat Ochoa [facility] 1.2.840.114 350.1.13.10 4.2.7.2.686 [id number] 044 [id number] [facility] 2024-03-02 00:00:00 2024-03-02 11:17:44 Telephone Ron Hoover [facility] 1.2.840.114 350.1.13.10 4.2.7.2.686 [id number] [facility] 2024-03-01 00:00:00 2024-03-01 13:58:48 Patient Outreach Michelle Olmstead [facility] 1.2.840.114 350.1.13.10 4.2.7.2.686 [id number] 044 [id number] [facility] 2024-02-29 00:00:00 2024-02-29 13:19:28 Telephone Ron Hoover [facility] 1.2.840.114 350.1.13.10 4.2.7.2.686 [id number] [facility] 2024-02-25 13:30:00 2024-02-25 13:30:00 Office Visit Pat Ochoa [facility] 1.2.840.114 350.1.13.10 4.2.7.2.686 [id number] 044 [id number] [facility] 2024-02-25 13:30:00 2024-02-25 13:27:04 Outpatient PAT MOSER [facility] [id number] [facility] 2024-02-22 13:00:00 2024-02-22 14:02:15 Outpatient PAT MOSER [facility] [id number] [facility] 2024-02-22 13:00:00 2024-02-22 13:15:00 Consultant Rn Visit 2, Adc Lab Pat Ochoa [facility] BUILDING 1.2.840.114 350.1.13.10 4.2.7.2.686 [id number] [facility] 2024-02-10 00:00:00 2024-02-10 00:00:00 Telephone Pat Ochoa [facility] BUILD[facility] 1.2840.114 350.1.13.10 4.2.7.2.686 [id number] 044 [id number] [facility] 2024-02-02 13:00:00 2024-02-02 13:00:00 Outpatient RON CARRASQUILLO [facility] [id number] [facility] 2024-01-29 00:00:00 2024-01-29 00:00:00 Telephone Pat Ochoa [facility] 1.2.840.114 350.1.13.10 4.2.7.2.686 [id number] 044 [id number] [facility] 2024-01-19 14:00:00 2024-01-19 14:00:00 Outpatient RON CARRASQUILLO [facility] [id number] [facility] 2024-01-12 00:00:00 2024-01-12 00:00:00 Orders Only Doctor Unassigned, Adwolf [facility] 1.2840.114 350.1.13.10 4.2.7.2.686 [id number] [facility] 2024-01-06 00:00:00 2024-01-06 00:00:00 Telephone Krishan Cowart [facility] 1.2.840.114 350.1.13.10 4.2.7.2.686 [id number] 044 [id number] [facility] 2024-01-04 00:00:00 2024-01-04 00:00:00 Telephone Lasha Aguilar [facility] [place]?[facility] 1.2.840.114 350.1.13.10 4.2.7.2.686 [id number] 092 [id number] [facility] 2024-01-01 00:00:00 2024-01-01 00:00:00 Patient Secure Msg Doctor Unassigned, Adwolf [facility] 1.2.840.114 350.1.13.10 4.2.7.2.686 [id number] 044 [id number] [facility] 2023-12-29 11:40:00 2023-12-29 16:54:53 Outpatient R LASHA AGUILAR [facility] [id number] [facility] 2023-12-29 11:40:00 2023-12-29 16:54:53 Office Visit Donovan Lasha [facility] [place]?DONI [facility] 1.2.840.114 350.1.13.10 4.2.7.2.686 [id number] 092 [id number] [facility] 2023-12-29 00:00:00 2023-12-29 00:00:00 Telephone Lasha Aguilar [facility] [place]?DONI [facility] OFFICE [facility] 1.2.840.114 350.1.13.10 4.2.7.2.686 [id number] 092 [id number] [facility] 2023-12-29 00:00:00 2023-12-29 00:00:00 Orders Only Doctor Unassigned, Adwolf [facility] 1.2840.114 350.1.13.10 4.2.7.2.686 [id number] [facility] 2023-12-28 09:40:00 2023-12-28 09:40:00 [facility] 1.2840.114 350.1.13.10 4.2.7.2.686 [id number] 059 [id number] [facility] 2023-12-28 09:40:00 2023-12-28 09:39:59 Outpatient R ALLYSON FINK [facility] [id number] [facility] 2023-12-28 00:00:00 2023-12-28 00:00:00 Letter (Out) [facility] 1.0.114 350.1.13.10 4.2.7.2.686 [id number] [facility] 2023-12-24 16:15:00 2023-12-24 16:15:00 Office Visit Ron Hoover [facility] 1.0.114 350.1.13.10 4.2.7.2.686 [id number] [facility] 2023-12-24 16:15:00 2023-12-24 15:29:05 Outpatient R RON [facility] [id number] [facility] 2023-12-11 12:30:00 2023-12-11 12:48:04 Outpatient PAT [facility] [id number] [facility] 2023-12-11 12:30:00 2023-12-11 12:48:04 Office Visit Pat Ochoa [facility] 1.840.114 350.1.13.10 4.2.7.2.686 [id number] [id number] [facility] 2023-12-08 00:00:00 2023-12-08 00:00:00 Telephone Deandra Medina 1.2840.114 350.1.13.10 4.2.7.2.686 [id number] [facility] 2023-12-07 14:40:00 2023-12-07 14:40:00 Outpatient R ALLYSON FINK [facility] [id number] [facility] 2023-12-07 00:00:00 2023-12-07 00:00:00 Orders Only Doctor Unassigned, Adwolf [facility] 1.2.840.114 350.1.13.10 4.2.7.2.686 [id number] [facility] 2023-12-02 11:45:00 2023-12-02 14:08:59 Consultant Rn Visit 2, Adc Lab Kayden Ochoassica [facility] 1.2.840.114 350.1.13.10 4.2.7.2.686 [id number] [facility] 2023-12-02 11:45:00 2023-12-02 11:45:00 Outpatient PAT [facility] [id number] [facility] 2023-12-02 00:00:00 2023-12-02 00:00[facility] 1.2.840.114 350.1.13.10 4.2.7.2.686 [id number] [facility] 2023-12-02 00:00:00 2023-12-02 00:00:00 Telephone Pat Ochoa [facility] 1.2.840.114 350.1.13.10 4.2.7.2.686 [id number] [facility] 2023-12-01 00:00:00 2023-12-01 00:00:00 Patient Outreach Debbie Shah [facility] 1.2.840.114 350.1.13.10 4.2.7.2.686 [id number] [id number] [facility] 2023-11-27 15:30:00 2023-11-27 16:17:50 Outpatient R PAT OCHOA [facility] [id number] [facility] 2023-11-27 15:30:00 2023-11-27 16:17:50 Office Visit Pat Ochoa [facility] 1..840.114 350.1.13.10 4.2.7.2.686 [id number] [id number] [facility] 2023-11-27 00:00:00 2023-11-27 00:00:00 Patient Secure Msg Doctor Unassigned, Adwolf [facility] 1..840.114 350.1.13.10 4.2.7.2.686 [id number] [facility] 2023-11-27 00:00:00 2023-11-27 00:00:00 Orders Only Doctor Unassigned, Adwolf [facility] 1..840.114 350.1.13.10 4.2.7.2.686 [id number] [facility] Results Test Description Test Time Test Comments Results Result Co mments Source [facility] GLUCOSE (AUTOMATED)2025-03-28 09:51:10* Test Item Value Reference Range Interpretation Comme nts POCT GLU (test code = 8477828020) 314 mg/dL 70-110 H Lab Interpretation (test cod e = 60973-6) Abnormal [facility] GLUCOSE (AUTOMATED)2025-03-28 09:51:10* Test Item Value Reference Range Interpretation Comme nts POCT GLU (test code = 9774930718) 297 mg/dL 70-110 H Lab Interpretation (test cod e = 97201-5) Abnormal [facility] GLUCOSE (AUTOMATED)2025-03-28 04:10:35* Test Item Value Reference Range Interpretation Comme nts POCT GLU (test code = 6685416337) 353 mg/dL 70-110 H Lab Interpretation (test cod e = 66935-9) Abnormal [facility] GLUCOSE (AUTOMATED)2025-03-28 00:45:10* Test Item Value Reference Range Interpretation Comme nts POCT GLU (test code = 0458672092) 335 mg/dL 70-110 H Lab Interpretation (test cod e = 36118-7) [facility] [id number] 15:57:07INDICATION: ?sob ORDERING PROVIDER: ?MARGOTH RAMACHANDRAN TECHNIQUE: ?Frontal view of the chest. RL: ?[id number]: ?None Available FINDINGS: ?The cardiac silhouette and pulmonary vascularity are withinnormal limits. Sternotomy wires and mediastinal clips are present.Left-sided rib deformities most likely reflect remote trauma in the absenceof any recent injury. No substantial pulmonary consolidation, pleuraleffusion, or pneumothorax is demonstrated.[facility] (NA, K, CL, CO2, GLUCOSE, BUN, CREATININE, CA) 2025-02-14 09:21:23* Test Item Value Reference Range Interpretation Comme nts NA (test code = 0942478506) 135 mmol/L 135-145 K (test code = 5101192808) 3.6 mmol/L 3.5-5.0 CL (test code = 1931590137) 105 mmol/L 98-108 CO2 TOTAL (test code = 1324583691) 23 mmol/L 23-31 AGAP (test code = 1799487785) 7 2-16 BUN (test code = 3074307423) 13 mg/dL 7-23 GLUCOSE (test code = 2203112544) 233 mg/dL 70-110 H CREATININE (test code = 2160-0) 0.63 mg/dL 0.60-1.25 CALCIUM (test code = 2691743530) 8.6 mg/dL 8.6-10.6 eGFR (test code = 63682-7) 104.3 mL/min/1.73m2 CKD-EPI eGFR (2020). Assuming creatinine has been stable day-to-day for at least three months, the eGFR indicates Category G1 (>= 90 mL/min/1.73 m2) Lab Interpretation (test code = 56678-0) [facility]* Test Item Value Reference Range Interpretation Comme nts MAGNESIUM (test code = 5699241762) 1.7 mg/dL 1.7-2.4 Lab Interpretation (test cod e = 37473-4) Normal [facility] Metabolic Panel (NA, K, CL, CO2, GLUCOSE, BUN, CREATININE, CA)2025-02-14 09:21:23* Test Item Value Reference Range Interpretation Comme nts NA (test code = 3115261980) 135 mmol/L 135-145 K (test code = 1993061938) 3.6 mmol/L 3.5-5.0 CL (test code = 7862824147) 105 mmol/L 98-108 CO2 TOTAL (test code = 9950278646) 23 mmol/L 23-31 AGAP (test code = 1105873917) 7 2-16 BUN (test code = 1996416423) 13 mg/dL 7-23 GLUCOSE (test code = 9798323517) 233 mg/dL 70-110 H CREATININE (test code = 2160-0) 0.63 mg/dL 0.60-1.25 CALCIUM (test code = 3615063979) 8.6 mg/dL 8.6-10.6 eGFR (test code = 36852-7) 104.3 mL/min/1.73m2 CKD-EPI eGFR (2020). Assuming creatinine has been stable day-to-day for at least three months, the eGFR indicates Category G1 (>= 90 mL/min/1.73 m2) Lab Interpretation (test code = 70528-6) [facility] 09:21:23* Test Item Value Reference Range Interpretation Comme nts MAGNESIUM (test code = 3309827583) 1.7 mg/dL 1.7-2.4 Lab Interpretation (test cod e = 83196-9) Normal [facility] with [id number] 09:01:02* Test Item Value Reference Range Interpretation Comme nts WBC (test code = 6690-2) 6.76 4.20-10.70 RBC (test code = 789-8) 4.74 4.26-5.52 HGB (test code = 718-7) 13.9 g/dL 12.2-16.4 HCT (test code = 4544-3) 40.2 % 38.4-49.3 MCV (test code = 787-2) 84.8 fL 81.7-95.6 MCH (test code = 785-6) 29.3 pg 26.1-32.7 MCHC (test code = 786-4) 34.6 g/dL 31.2-35.0 RDW-SD (test code = 50379-8) 39 fL 38.5-51.6 RDW-CV (test code = 788-0) 12.7 % 12.1-15.4 PLT (test code = 777-3) 266 150-328 MPV (test code = 94304-9) 9 fL 9.8-13.0 L NRBC/100 WBC (test code = 1772023806) 0 0.0-10.0 NRBC x10^3 (test code = 7012076231) See_Comment [Automated messa ge] The system which generated this result transmitted reference range: 10*3/?L. The reference range was not used to interpret this result as normal/abnormal. GRAN MAT (NEUT) % (test code = 770-8) 56.5 % IMM GRAN % (test code = 3313766133) 0.3 % LYMPH % (test code = 736-9) 28.1 % MONO % (test code = 5905-5) 13 % EOS % (test code = 713-8) 1.5 % BASO % (test code = 706-2) 0.6 % GRAN MAT x10^3(ANC) (test code = 0977018633) 3.82 10*3/uL 1.99-6.95 IMM GRAN x10^3 (test code = 9908360678) 0.00-0.06 LYMPH x10^3 (test code = 731-0) 1.9 10*3/uL 1.09-3.23 MONO x10^3 (test code = 742-7) 0.88 10*3/uL 0.36-1.02 EOS x10^3 (test code = 711-2) 0.1 10*3/uL 0.06-0.53 BASO x10^3 (test code = 704-7) 0.04 10*3/uL 0.01-0.09 Lab Interpretation (test code = 44338-5) Abnormal [facility] with Fjfk2035-87-15 09:01:02* Test Item Value Reference Range Interpretation Comme nts WBC (test code = 6690-2) 6.76 4.20-10.70 RBC (test code = 789-8) 4.74 4.26-5.52 HGB (test code = 718-7) 13.9 g/dL 12.2-16.4 HCT (test code = 4544-3) 40.2 % 38.4-49.3 MCV (test code = 787-2) 84.8 fL 81.7-95.6 MCH (test code = 785-6) 29.3 pg 26.1-32.7 MCHC (test code = 786-4) 34.6 g/dL 31.2-35.0 RDW-SD (test code = 47322-8) 39 fL 38.5-51.6 RDW-CV (test code = 788-0) 12.7 % 12.1-15.4 PLT (test code = 777-3) 266 150-328 MPV (test code = 39349-5) 9 fL 9.8-13.0 L NRBC/100 WBC (test code = 4071134422) 0 0.0-10.0 NRBC x10^3 (test code = 6474111368) See_Comment [Automated messa ge] The system which generated this result transmitted reference range: 10*3/?L. The reference range was not used to interpret this result as normal/abnormal. GRAN MAT (NEUT) % (test code = 770-8) 56.5 % IMM GRAN % (test code = 5347583201) 0.3 % LYMPH % (test code = 736-9) 28.1 % MONO % (test code = 5905-5) 13 % EOS % (test code = 713-8) 1.5 % BASO % (test code = 706-2) 0.6 % GRAN MAT x10^3(ANC) (test code = 2599403962) 3.82 10*3/uL 1.99-6.95 IMM GRAN x10^3 (test code = 8858657480) 0.00-0.06 LYMPH x10^3 (test code = 731-0) 1.9 10*3/uL 1.09-3.23 MONO x10^3 (test code = 742-7) 0.88 10*3/uL 0.36-1.02 EOS x10^3 (test code = 711-2) 0.1 10*3/uL 0.06-0.53 BASO x10^3 (test code = 704-7) 0.04 10*3/uL 0.01-0.09 Lab Interpretation (test code = 55035-1) Abnormal [facility] GLUCOSE (AUTOMATED)2025-02-14 04:08:01* Test Item Value Reference Range Interpretation Comme [facility] POCT GLU (test code = 8771738211) 271 mg/dL 70-110 H Lab Interpretation (test cod e = 80790-1) Abnormal [facility] GLUCOSE (AUTOMATED)2025-02-14 04:08:01* Test Item Value Reference Range Interpretation Comme [facility] POCT GLU (test code = 9883346926) 271 mg/dL 70-110 H Lab Interpretation (test cod e = 37970-0) [facility]normal [facility]2025-02-14 02:03:24* Test Item Value Reference Range Interpretation Comme [facility] APTT Patient (test code = 3173-2) 41 26-36 H Lab Interpretation (test cod e = 99855-6) [facility]normal [facility]2025-02-14 02:03:24* Test Item Value Reference Range Interpretation Comme [facility] APTT Patient (test code = 3173-2) 41 26-36 H Lab Interpretation (test cod e = 93875-4) [facility]normal [facility] Vujyhsr1758-93-23 22:19:56* Test Item Value Reference Range Interpretation Comme nts Height (test code = 2174548204) 72 in Weight (test code = 1311866023) 164 lbs Systolic BP (test code = 3410876166) 107 mmHg Diastolic BP (test code = 3216990302) 63 mmHg Heart Rate (test code = 1444227540) 92 bpm EF(Teich) (test code = 1655370378) 23.6 % LVIDD (test code = 3752808297) 4.4 cm LVIDS (test code = 7642764673) 4 cm Left Ventricular End Systolic Volume by Teichholz Method (test code = 4014862) 68 mL Left Ventricular End Diastolic Volume by Teichholz Method (test code = 9082277) 89 mL IVS (test code = 1702748099) 0.88 cm LVPWD (test code = 6324662388) 0.78 cm FS (test code = 3931112771) 11 % BSA (test code = 5884447358) 1.96 m2 PW (test code = 3080574929) 0.78 cm 0.6-1.1 EF - 2D (test code = 32603828) 23.6 % Interventricular Septum Diastolic Thickness by 2D (test code = 4499063) 0.88 cm A4C EF (test code = 6098876840) 31.4 % EF(sp4-el) (test code = 4388942374) 32.7 % SV(MOD-sp4) (test code = 5957455341) 26.4 mL SV(sp4-el) (test code = 5229708031) 28.5 mL LV Diastolic Volume (BP) (test code = 3627266593) 93.3 mL A2C EF (test code = 9615548674) 40.7 % EF(MOD-bp) (test code = 5174375581) 37.6 % EF(sp2-el) (test code = 6284706492) 41.8 % LV Systolic Volume (BP) (test code = 8807128194) 58.2 mL SV(MOD-bp) (test code = 0620345151) 35.1 mL SV(MOD-sp2) (test code = 9743075815) 39.8 mL EF (test code = 6308142995) 38 Left Ventricular Stroke Volume by 2-D Biplane-MOD (test code = 1448203) 35.1 mL LV Diastolic Volume Index (BP) (test code = 3927672641) 47.6 mL/m2 LV Systolic Volume Index (BP) (test code = 0237582058) 29.7 mL/m2 Radiology Study observation (narrative) (test code = 46339-7) ROLANDO (test code = ROLANDO) ?Left?Ventricle: Left ventricle size is normal. Normal wall thickness. Regional wall motion abnormalities are present. See diagram for findings. Moderately reduced systolic function with a visually estimated EF of 35 - 40%. EF by 2D Melendez biplane is 38%. Diastolic dysfunction. ?Aorta: Mildly enlarged aortic root (4.0 cm). Left VentricleLeft ventricle size is normal. Normal wall thickness. Regional wall motion abnormalities are present. See diagram for findings. Moderately reduced systolic function with a visually estimated EF of 35 - 40%. EF by 2D Melendez biplane is 38%. Diastolic dysfunction.Right VentricleNot assessed.Left AtriumNot assessed.Right AtriumRight atrium size is grossly normal.IVC/SVCIVC was not well visualized.Mitral ValveMitral valve structure is grossly normal.Tricuspid ValveNot assessed.Aortic ValveAortic valve opens well.Pulmonic ValveNot assessed.Ascending AortaMildly enlarged aortic root (4.0 cm).PericardiumThe pericardium is normal. No pericardial effusion.Study DetailsA limited echocardiogram was performed using 2D. The apical, parasternal and subcostal views were obtained. 3 mL of Optison ultrasound enhancing agent used.Wall Scoring BaselineScore Index: 1.53The following segments are akinetic: basal anterior and mid anterior.The following segments are hypokinetic: basal inferolateral, basal anterolateral, mid inferolateral, mid anterolateral and apical lateral.All other segments are normal. [facility] Vyqifkh2235-68-20 22:19:56* Test Item Value Reference Range Interpretation Comme nts Height (test code = 2015631920) 72 in Weight (test code = 9656353452) 164 lbs Systolic BP (test code = 4558649585) 107 mmHg Diastolic BP (test code = 0239285113) 63 mmHg Heart Rate (test code = 1710699297) 92 bpm EF(Teich) (test code = 2869096508) 23.6 % LVIDD (test code = 1229204196) 4.4 cm LVIDS (test code = 7564643604) 4 cm Left Ventricular End Systolic Volume by Teichholz Method (test code = 6420949) 68 mL Left Ventricular End Diastolic Volume by Teichholz Method (test code = 3279163) 89 mL IVS (test code = 2536706659) 0.88 cm LVPWD (test code = 9816110285) 0.78 cm FS (test code = 2137112430) 11 % BSA (test code = 6049591245) 1.96 m2 PW (test code = 3230164291) 0.78 cm 0.6-1.1 EF - 2D (test code = 92749942) 23.6 % Interventricular Septum Diastolic Thickness by 2D (test code = 5725859) 0.88 cm A4C EF (test code = 5481098016) 31.4 % EF(sp4-el) (test code = 9187419075) 32.7 % SV(MOD-sp4) (test code = 6923083450) 26.4 mL SV(sp4-el) (test code = 1030952676) 28.5 mL LV Diastolic Volume (BP) (test code = 2822727230) 93.3 mL A2C EF (test code = 4022985971) 40.7 % EF(MOD-bp) (test code = 9287640395) 37.6 % EF(sp2-el) (test code = 3155742944) 41.8 % LV Systolic Volume (BP) (test code = 1904158941) 58.2 mL SV(MOD-bp) (test code = 2345971469) 35.1 mL SV(MOD-sp2) (test code = 1803379911) 39.8 mL EF (test code = 3621340818) 38 Left Ventricular Stroke Volume by 2-D Biplane-MOD (test code = 7687952) 35.1 mL LV Diastolic Volume Index (BP) (test code = 8794160160) 47.6 mL/m2 LV Systolic Volume Index (BP) (test code = 4545847711) 29.7 mL/m2 Radiology Study observation (narrative) (test code = 20371-2) ROLANDO (test code = ROLANDO) ?Left?Ventricle: Left ventricle size is normal. Normal wall thickness. Regional wall motion abnormalities are present. See diagram for findings. Moderately reduced systolic function with a visually estimated EF of 35 - 40%. EF by 2D Melendez biplane is 38%. Diastolic dysfunction. ?Aorta: Mildly enlarged aortic root (4.0 cm). Left VentricleLeft ventricle size is normal. Normal wall thickness. Regional wall motion abnormalities are present. See diagram for findings. Moderately reduced systolic function with a visually estimated EF of 35 - 40%. EF by 2D Melendez biplane is 38%. Diastolic dysfunction.Right VentricleNot assessed.Left AtriumNot assessed.Right AtriumRight atrium size is grossly normal.IVC/SVCIVC was not well visualized.Mitral ValveMitral valve structure is grossly normal.Tricuspid ValveNot assessed.Aortic ValveAortic valve opens well.Pulmonic ValveNot assessed.Ascending AortaMildly enlarged aortic root (4.0 cm).PericardiumThe pericardium is normal. No pericardial effusion.Study DetailsA limited echocardiogram was performed using 2D. The apical, parasternal and subcostal views were obtained. 3 mL of Optison ultrasound enhancing agent used.Wall Scoring BaselineScore Index: 1.53The following segments are akinetic: basal anterior and mid anterior.The following segments are hypokinetic: basal inferolateral, basal anterolateral, mid inferolateral, mid anterolateral and apical lateral.All other segments are normal. [facility] Aotzsgzfrcyintu9193-52-28 21:37:26Left Heart Cath/Coronary Angiography/SVG and BURKETT angiogram/PCI of the SVG to OM1 with 3.5x16 Synergy [facility]medical [facility] enterpriseas Haggard3:24 PMAttending faculty: Riley Granados MDFellow: Dr Butler/Dr Alvarez Physician: Edil Kraft, MDProcedures Performed:Left Heart Cath/Coronary Angiography/SVG and BURKETT angiogramPCI of the SVG to OM1 with 3.5x16 Synergy LEANDRA Indication/Diagnosis: ACS ([place]/NSTEMI)69 year old male with h/o CAD s/p 3v CABG (2013, BURKETT to LAD SVG to OM and SVG to RPLB), HFmrEF (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 . Consent: Risks, benefits, alternatives and complications of the procedure discussed with the self, who understood and agreed to proceed.Aseptic technique: ChlorprepLocal Anesthesia: 1% lidocaine without epinephrineSedation: ModerateAccess site: Arterial: Right femoral artery 4Fr and then upgraded to 6FrClosure Method: Arterial: R DIGITAL PROJECT MANAGER 6Fr manual compression Sterile dressing: yesComplications: noneProcedures: After patient identification/verification, the patient was thereafter transferred to the construction or leak gang laborer table. ?The access site was prepped and draped in usual sterile fashion. After administering sedation, time out was done. Under ultrasound bradford dance, using Seldinger technique, the Right femoral artery was accessed and a 4 Fr sheath was introduced into the artery.4Fr Jl4 to LM selective, then 4Fr JR4 to RCA selective and then 4Fr JR4 to SVgto OM selective, then 4Fr JR4 to L SCA and L SCA angiogram, then 4Fr LYNSEY to the BURKETT to LAD, then 4Fr MP to the LV and after LVEDP 4Fr MP to the SVg to RPLB, then 6Fr RCFA, then 6Fr JR4 guide to SVg to OM, then BMW wire to the SVg to OM, then 3x12 NC FLIGHT KITCHEN MANAGER then 3.5x16 Synergy LEANDRA to the Svg to OM, r DIGITAL PROJECT MANAGER sutured into place (heparin, brilinta load aggrastat load only) The attending physician was present throughout the procedure and provided the highest level of supervision. Findings:Coronary dominance: rightLeft main: diffuse 50%LAD: pLAD 50%, mLAD 100% HOOP FLARING MACHINE OPERATOR, D1 medium size 60%, S1 medium size 90%LCX: pLCx 100% HOOP FLARING MACHINE OPERATOR with microchannelRCA: dominant vessel severe calcification tortuous, pRCA mild LI, mRCA 70%, dRCA mild LI, RPDA 40%, RPLB1 competitive flow from patent SVG to RPLB -L SCA patent-BURKETT to mLAD patent, mLAD distal to the BURKETT touchdown focal 70%-SVG to OM1 proximal 70-80% hazy (PCI done with 3.5x16 Synergy LEANDRA, post 0%, JING III flow), Om1 mild LI-SVG to RPLB patent, RPLB mild LI retrograde fills the dRCA with RPLB retrograde has 80% stenosis LVEDP: 12 mmHg Post-Procedure Sedation AddendumImmediately prior to start of sedation, the patient was evaluated and there was no change from the pre-procedure evaluation. I was present and directed medical care.The patient underwent moderate sedation ?for the procedure. The medications administered were recorded in the MAR; oxygenation, ventilation and circulation were monitored continuously and were recorded in the EMR. I evaluatedthe patient after the procedure.The patient was evaluated immediately as recovering from sedation. Complications: none Impression/plan:-Severe [place] CAD with mLAD HOOP FLARING MACHINE OPERATOR, pLCx HOOP FLARING MACHINE OPERATOR, severe mRCA stenosis, severe RPLB stenosis. -Patent BURKETT to LAD with severe [place] dLAD stenosis, severe SVG to OM1 stenosis (likely cause of unstable angina), patent SVG to RPLB. -PCI of the SVG to Om1 done with Synergy LEANDRA. Recommend staged PCI of the BURKETT to mLAD ([place] dLAD PCI through BURKETT). May consider FFR guided PCI of the mRCA. -Aggressive medical rx for CAD. Aspirin 81 mg once daily for life. Brilinta 180 mg oral given in construction or leak gang laborer, continue brilinta 90 mg bid for at least 12 months. -Aggrastat bolus onlyduring PCI. -d/w pt in detail, all questions answered. F/u with Dr Fink as planned. PLAN STAGED PCI.Start cardiac rehab after the staged PCI is done. Riley Granados MD 02/13/2025 3:24 PM Procedure DetailsLeft Heart Cath/Coronary Angiography/SVG and BURKETT angiogram/PCI of the SVG to OM1 with 3.5x16 Synergy DESThomas Haggard3:24 PMAttending faculty: Riley Granados MDFellow: Dr Butler/Dr Alvarez Physician: Edil Kraft, MDProcedures Performed:Left Heart Cath/Coronary Angiography/SVG andLIMA angiogramPCI of the SVG to OM1 with 3.5x16 Synergy LEANDRA Indication/Diagnosis: ACS ([place]/NSTEMI)69 year old male with h/o CAD s/p 3v CABG (2013, BURKETT to LAD SVG to OM and SVG to RPLB), HFmrEF (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 . Consent: Risks, benefits, alternatives and complications of the procedure discussed with the self, who understood and agreed to proceed.Aseptic technique: ChlorprepLocal Anesthesia: 1% lidocaine without epinephrineSedation: ModerateAccess site: Arterial: Right femoral artery 4Fr and then upgraded to 6FrClosure Method: Arterial: R DIGITAL PROJECT MANAGER 6Fr manual compression Sterile dressing: yesComplications: noneProcedures: After patient identification/verification, the patient was thereafter transferred to the construction or leak gang laborer table. The access site was prepped anddraped in usual sterile fashion. After administering sedation, time out was done. Under ultrasound guidance, using Seldinger technique, the Right femoral artery was accessed and a 4 Fr sheath was introduced into the artery.4Fr Jl4 to LM selective, then 4Fr JR4 to RCA selective and then 4Fr JR4 to SVg to OM selective, then 4Fr JR4 to L SCA and L SCA angiogram, then 4Fr LYNSEY to the BURKETT to LAD, idgc6Cm MP to the LV and after LVEDP 4Fr MP to the SVg to RPLB, then 6Fr RCFA, then 6Fr JR4 guide to SVg to OM, then BMW wire to the SVg to OM, then 3x12 NC FLIGHT KITCHEN MANAGER then 3.5x16 Synergy LEANDRA to the Svg to OM, r DIGITAL PROJECT MANAGER sutured into place (heparin, brilinta load aggrastat load only) The attending physician was present throughout the procedure and provided the highest level of supervision. Findings:Coronary dominance: rightLeft main: diffuse 50%LAD: pLAD 50%, mLAD 100% HOOP FLARING MACHINE OPERATOR, D1 medium size 60%, S1 medium size 90%LCX: pLCx 100% HOOP FLARING MACHINE OPERATOR with microchannelRCA: dominant vessel severe calcification tortuous, pRCA mild LI, mRCA 70%, dRCA mild LI, RPDA 40%, RPLB1 competitive flow from patent SVG to RPLB -L SCA patent-BURKETT to mLAD patent, mLAD distal to the BURKETT touchdown focal 70%- SVG to OM1 proximal 70-80% hazy (PCIdone with 3.5x16 Synergy LEANDRA, post 0%, JING III flow), Om1 mild LI-SVG to RPLB patent, RPLB mild LIretrograde fills the dRCA with RPLB retrograde has 80% stenosis LVEDP: 12 mmHg Post-Procedure Sedation AddendumImmediately prior to start of sedation, the patient was evaluated and there was no change from the pre-procedure evaluation. I was present and directed medical care.The patient underwent moderate sedation for the procedure. The medications administered were recorded in the MAR; oxygenation, ventilation and circulation were monitored continuously and were recorded in the EMR. I evaluated the patient after the procedure.The patient was evaluated immediately as recovering from sedation.Complications: none Impression/plan:-Severe [place] CAD with mLAD HOOP FLARING MACHINE OPERATOR, pLCx HOOP FLARING MACHINE OPERATOR, severe mRCA stenosis, severe RPLB stenosis. -Patent BURKETT to LAD with severe [place] dLAD stenosis, severe SVG to OM1 stenosis (likely cause of unstable angina), patent SVG to RPLB. -PCI of the SVG to Om1 done with Synergy LEANDRA. Recommend staged PCI of the BURKETT to mLAD ([place] dLAD PCI through BURKETT). May consider FFR guided PCI of the mRCA. -Aggressive medical rx for CAD. Aspirin 81 mg once daily for life. Brilinta 180mg oral given in construction or leak gang laborer, continue brilinta 90 mg bid for at least 12 months. -Aggrastat bolus only during PCI. -d/w pt in detail, all questions answered. F/u with Dr Fink as planned. PLAN STAGED PCI. Start cardiac rehab after the staged PCI is done. Riley Granados MD 02/13/2025 3:24 PMUnB[facility] CenterTransthoracic echo ([facility]E) 2025-02-06 22:52:44* Test Item Value Reference Range Interpretation Comme nts Height (test code = 7323860723) 72 in Weight (test code = 1261293015) 162 lbs Systolic BP (test code = 4542281779) 146 mmHg Diastolic BP (test code = 5082599517) 83 mmHg Heart Rate (test code = 0530309479) 76 bpm BSA (test code = 1140988710) 1.95 m2 LVOT diameter (test code = 2620994505) 1.9 cm LVOT area (test code = 6185570724) 2.8 cm2 Ao root diam (test code = 7597596229) 3.6 cm Aortic root (test code = 3990335666) 3.6 cm Ao root annulus (test code = 6129346199) 3.6 cm LA size (test code = 9674113515) 2.9 cm LVIDD (test code = 3698149003) 5.1 cm Left Ventricular End Diastolic Volume by Teichholz Method (test code = 1466632) 124.1 mL IVS (test code = 4856117082) 1 cm Interventricular Septum Diastolic Thickness by 2D (test code = 9302532) 1 cm LVPWD (test code = 6559299244) 1 cm PW (test code = 7027713727) 1 cm 0.6-1.1 EF(Teich) (test code = 3542485708) 42.3 % LVIDS (test code = 7058442554) 4 cm Left Ventricular End Systolic Volume by Teichholz Method (test code = 2596039) 71.6 mL FS (test code = 8823806606) 21 % EF - 2D (test code = 45603214) 42.3 % E wave decelartion time (test code = 9725073339) 0.18 s MV Peak E Riddhi (test code = 1158117374) 50.1 cm/s MV stenosis pressure 1/2 time (test code = 6159808763) 51.8 ms MV Peak A Riddhi (test code = 3417049964) 71.6 cm/s E/A ratio (test code = 7959254881) 0.7 ratio MV Prop V (test code = 5232758422) 34 cm/s MV E/e' septal (test code = 9239739314) 12.8 cm/s LAV(MOD-sp4) (test code = 4591051190) 30.9 mL Tapse (test code = 0049450083) 1.52 cm LVOT stroke volume (test code = 4892200857) 45.8 cm3 LVOT peak riddhi (test code = 8747515582) 78.8 cm/s LVOT mn grad (test code = 3663604278) 1.4 mmHg AV LVOT peak gradient (test code = 1736308038) 2.49 mmHg LVOT peak VTI (test code = 4601986792) 16.1 cm LV V1 mean (test code = 7174589991) 56.5 cm/s Aortic valve mean velocity (test code = 1735920061) 61.6 cm/s Ao peak riddhi (test code = 7379207419) 82.4 cm/s Ao VTI (test code = 4588800661) 12.8 cm AV area by cont VTI (test code = 8531894224) 3.6 cm2 AV area peak riddhi (test code = 4675902618) 2.7 cm2 Ao max PG (test code = 2280996022) 2.7 mm[Hg] AV peak gradient (test code = 2351008317) 2.7 mmHg AV valve area (test code = 7120716227) 3.6 cm2 AV mean gradient (test code = 7679470532) 1.63 mmHg Radiology Study observation (narrative) (test code = 83299-7) ROLANDO (test code = ROLANDO) ?Left?Ventricle: Left ventricle size is normal. Normal wall thickness. Regional wall motion abnormalities present. Hypokinetic basal to mid anterolateral wall. Mildly reduced systolic function with a visually estimated EF of 45 - 50%. There is impaired relaxation. Normal left ventricular filling pressure. ?Right?Ventricle: Right ventricle is mildly dilated. Mildly reduced systolic function. ?Mitral?Valve: No stenosis. ?Tricuspid?Valve: Trace transvalvular regurgitation. Insufficient tricuspid regurgitation jet to estimate RVSP . ?RA pressure is 5-10 mmHg. No stenosis. Left VentricleLeft ventricle size is normal. Normal wall thickness. Regional wall motion abnormalities present. Hypokinetic basal to mid anterolateral wall. Mildly reduced systolic function with a visually estimated EF of 45 - 50%. There is impaired relaxation. Normal left ventricular filling pressure.Right VentricleRight ventricle is mildly dilated. Mildly reduced systolic function.Left AtriumLeft atrium size is normal.Right AtriumRight atrium size is normal.Mitral ValveMitral valve is grossly normal in structure and function. Trace transvalvular regurgitation. No stenosis.Tricuspid ValveTricuspid valve is grossly normal size and function. Trace transvalvular regurgitation. Insufficient tricuspid regurgitation jet to estimate RVSP . RA pressure is 5-10 mmHg. No stenosis.Aortic ValveAortic valve opens well. Trace transvalvular regurgitation. No hemodynamically significant .Pulmonic ValveNot well visualized. Trace transvalvular regurgitation.Ascendin g AortaNormal sized aortic root.PericardiumNo pericardial effusion.Study DetailsStudy quality experienced technical difficulty. A complete echocardiogram was performed using 2D, color flow Doppler and spectral Doppler. 3 mL of Optison ultrasound enhancing agent used.Wall Scoring BaselineScore Index: 2.00The following segments are hypokinetic: basal anterolateral and mid anterolateral.Other segments could not be evaluated. [facility] - Serial Q3H x2 from initial occurrence (at 0Hr, 3rd Hr and 6th Hr)2025-02-06 21:29:39* Test Item Value Reference Range Interpretation Comme nts TROPONIN I (test code = 5678680209) 0.001 ng/mL <=0.034 ROLANDO (test code = [...] of biotin. Lab Interpretation (test code = 15300-7) Normal [facility] HospitalGlycosylated Hemoglobin (A1C)2025-02-06 19:11:23* Test Item Value Reference Range Interpretation Comme nts HGB A1C (test code = 4548-4) 7.6 % 4.0-5.7 H ROLANDO (test code = ROLANDO) Reference RangesNormal: <5.7%Prediabetes: 5.7 - 6.4%Diabetes: > 6.5% Lab Interpretation (test code = 78012-7) Abnormal [facility] HospitalTroponin I - Serial Q3H x2 from initial occurrence (at 0Hr, 3rd Hr and 6th Hr)2025-02-06 18:39:46* Test Item Value Reference Range Interpretation Comme nts TROPONIN I (test code = 0329087603) 0.002 ng/mL <=0.034 ROLANDO (test code = [...] of biotin. Lab Interpretation (test code = 11468-3) Normal [facility] HospitalLipid Panel (Total Cholesterol, Triglycerides, HDL)2025-02-06 18:28:21* Test Item Value Reference Range Interpretation Comme nts CHOL (test code = 3786807922) 166 mg/dL 120-200 HDL (test code = 0229302133) 51 mg/dL >=40 HDLC RATIO (test code = 9059183618) 3.3 <=5.0 TRIG (test code = 1970881442) 61 mg/dL 30-170 LDL CHOL (test code = 05504-6) 103 mg/dL <=160 VLDL (test code = 6090048050) 12 mg/dL 5-60 Lab Interpretation (test cod e = 07934-5) Normal [facility] (NA, K, CL, CO2, GLUCOSE, BUN, CREATININE, CA)2025-02-06 18:28:21* Test Item Value Reference Range Interpretation Comme nts NA (test code = 1712832428) 137 mmol/L 135-145 K (test code = 9953031343) 4 mmol/L 3.5-5.0 CL (test code = 9615998866) 102 mmol/L 98-108 CO2 TOTAL (test code = 7387641066) 29 mmol/L 23-31 AGAP (test code = 3352290162) 6 2-16 BUN (test code = 9361237511) 14 mg/dL 7-23 GLUCOSE (test code = 6033621952) 195 mg/dL 70-110 H CREATININE (test code = 2160-0) 0.58 mg/dL 0.60-1.25 L CALCIUM (test code = 2398414410) 9.1 mg/dL 8.6-10.6 eGFR (test code = 43234-9) 106.9 mL/min/1.73m2 CKD-EPI eGFR (2020). Assuming creatinine has been stable day-to-day for at least three months, the eGFR indicates Category G1 (>= 90 mL/min/1.73 m2) Lab Interpretation (test code = 13789-9) Abnormal [facility] with Vsqp1966-89-75 17:40:13* Test Item Value Reference Range Interpretation [...] 33.8 g/dL 31.2-35.0 RDW-SD (test code = 33131-2) 41.9 fL 38.5-51.6 RDW-CV (test code = 788-0) 12.7 % 12.1-15.4 PLT (test code = 777-3) 250 150-328 MPV (test code = 94211-6) 10.5 fL 9.8-13.0 NRBC/100 WBC (test code = 3606847376) 0 0.0-10.0 NRBC x10^3 (test code = 2414776721) See_Comment [Automated messa ge] The system which generated this result transmitted reference range: 10*3/?L. The reference range was not used to interpret this result as normal/abnormal. GRAN MAT (NEUT) % (test code = 770-8) 64.1 % IMM GRAN % (test code = 0090026901) 0.2 % LYMPH % (test code = 736-9) 27.9 % MONO % (test code = 5905-5) 6.7 % EOS % (test code = 713-8) 0.6 % BASO % (test code = 706-2) 0.5 % GRAN MAT x10^3(ANC) (test code = 1478412964) 5.48 10*3/uL 1.99-6.95 IMM GRAN x10^3 (test code = 4765916392) 0.00-0.06 LYMPH x10^3 (test code = 731-0) 2.38 10*3/uL 1.09-3.23 MONO x10^3 (test code = 742-7) 0.57 10*3/uL 0.36-1.02 EOS x10^3 (test code = 711-2) 0.05 10*3/uL 0.06-0.53 L BASO x10^3 (test code = 704-7) 0.04 10*3/uL 0.01-0.09 Lab Interpretation (test code = 45817-2) Abnormal [facility] GLUCOSE (AUTOMATED)2025-02-06 17:05:28* Test Item Value Reference Range Interpretation Comme nts POCT GLU (test code = 4610683630) 189 mg/dL 70-110 H Lab Interpretation (test cod e = 91259-6) Abnormal [facility] Urinalysis, Hyvelogjga7267-01-91 15:42:00 * Test Item Value Reference Range [...] U APPEAR (test code = 3267) clear [facility] HospitalMEAS,POST-VOID RES,US,DBF-LGTMVFH1048-39-08 00:00:00* Test Item Value Reference Range Interpretation Comme nts PVR (URINE VOLUME) (test code = 5193) 214 ml 0-100 [facility] Abdomen pelvis w wo ajygvjol1083-75-53 19:02:43EXAM: CT ABDOMEN PELVIS W WO CONTRAST [...] No suspicious lytic or sclerotic bony lesions arepresent.[facility]. Metabolic Panel (15827) 2025-01-10 17:16:30* Test Item Value Reference Range Interpretation Comme nts NA (test code = 1582287206) 137 mmol/L 135-145 K (test code = 2194210601) 4.4 mmol/L 3.5-5.0 CL (test code = 9548977429) 104 mmol/L 98-108 CO2 TOTAL (test code = 7605067909) 25 mmol/L 23-31 AGAP (test code = 8113813262) 8 2-16 BUN (test code = 8057044458) 15 mg/dL 7-23 GLUCOSE (test code = 5244507571) 145 mg/dL 70-110 H CREATININE (test code = 2160-0) 0.59 mg/dL 0.60-1.25 L TOTAL BILI (test code = 2305552043) 0.8 mg/dL 0.1-1.1 CALCIUM (test code = 8700460137) 9.5 mg/dL 8.6-10.6 T PROTEIN (test code = 7425727598) 7.1 g/dL 6.3-8.2 ALBUMIN (test code = 4362133418) 4.2 g/dL 3.5-5.0 ALK PHOS (test code = 2505299537) 69 U/L 34-122 ALTv (test code = 1742-6) 20 U/L 5-50 AST(SGOT) (test code = 8326867133) 33 U/L 13-40 eGFR (test code = 64119-0) 106.3 mL/min/1.73m2 CKD-EPI eGFR (2020). Assuming creatinine has been stable day-to-day for at least three months, the eGFR indicates Category G1 (>= 90 mL/min/1.73 m2) Lab Interpretation (test code = 15027-5) Abnormal [facility] HospitalProthrombin Time / [id number] 17:11:32* Test Item Value Reference Range Interpretation Comme [facility] PROTIME PATIENT (test code = 5964-2) 10.9 10.1-12.6 INR (test code = 6301-6) 0.9 Normal INR <1.1; Warfarin Therapeutic range 2.0 to 3.0 or 2.5 to 3.5, depending upon the indications. Lab Interpretation (test code = 62874-8) Normal [facility] HospitalActivated Partial Thrmplas Ofz5098-54-56 17:11:32* Test Item Value Reference Range Interpretation Comme [facility] APTT Patient (test code = 3173-2) 31 26-36 ROLANDO (test code = ROLANDO) The [facility] patient population mean normal value for aPTT is 30 seconds. Lab Interpretation (test code = 04705-7) Normal [facility] with Pvxr4754-82-09 17:03:30* Test Item Value Reference Range Interpretation [...] 32.0 g/dL 31.2-35.0 RDW-SD (test code = 23606-1) 42.6 fL 38.5-51.6 RDW-CV (test code = 788-0) 12.4 % 12.1-15.4 PLT (test code = 777-3) 267 150-328 MPV (test code = 24540-7) 9.9 fL 9.8-13.0 NRBC/100 WBC (test code = 7962212586) 0.0 0.0-10.0 NRBC x10^3 (test code = 8804521784) See_Comment [Automated me ssage] The system which generated this result transmitted reference range: 10*3/?L. The reference range was not used to interpret this result as normal/abnormal. GRAN MAT (NEUT) % (test code = 770-8) 55.1 % IMM GRAN % (test code = 3045663721) 0.20 % LYMPH % (test code = 736-9) 36.2 % MONO % (test code = 5905-5) 7.0 % EOS % (test code = 713-8) 0.9 % BASO % (test code = 706-2) 0.6 % GRAN MAT x10^3(ANC) (test code = 3337442864) 4.83 10*3/uL 1.99-6.95 IMM GRAN x10^3 (test code = 9523408215) 0.00-0.06 LYMPH x10^3 (test code = 731-0) 3.17 10*3/uL 1.09-3.23 MONO x10^3 (test code = 742-7) 0.61 10*3/uL 0.36-1.02 EOS x10^3 (test code = 711-2) 0.08 10*3/uL 0.06-0.53 BASO x10^3 (test code = 704-7) 0.05 10*3/uL 0.01-0.09 [facility] HospitalDME/SUPPLY ATEHNCJVWFYBT2889-57-93 15:54:01 Ordered by an unspecified provider.[facility] HospitalSurgical Pathology Hshu8392-39-96 14:32:21* Test Item Value Reference Range Interpretation Comme nts Case Report (test code = 5041976806) Surgical Pathology ?Case: [id number] ? Authorizing Provider: ?Mindy Andino MD ?Collected: ? 12/28/2024 0906 ?Ordering Location: ? ? [facility] ? ? ?Received: ?12/29/2024 1545 ? [facility] ?Pathologist: ? Khadijah Corbin MD ? Specimens: ? A) - LARGE INTESTINE, RIGHT-ASCENDING COLON, Polyp ? B) - LARGE INTESTINE, CECUM, Polyp x2 ? C) - RECTUM, Recto- Sigmoid Polyp ? Final Diagnosis (test code = 9245987599) a6gqpBDiCWIeg3peFGSbqK FuZzEwMzNcZnRuYmpcdWMx DRnusiNsGEcjcRjxGYZ1DL RmHL3trSmzkLp1bWpiXKDo vdN2tOUdWUsgv6aqQBY8r4 kehwrzZMAdQBpkEp6jxCMr fSupGzDpUURmNMn3mS14CG WitF8vsZVbMQm9UURjlSEi gpFqCmHuRAXvsRDxxDE3SY LzPJ0beksfCIekXVcvSAEw rtR7WAIjhNTzM8FrGRHoWW 8amzaoZSC7TJotOBJaPSB3 DmMuMBZgv9Zvemb9YjLztA FyZFxwbGFpblxmczIwXHBh ciBBLiBMQVJHRSBJTlRFU1 XBFyYgEPCQI5eOHLIBY0CQ FRsICkPPP4fVSxuvQO3JXS ZXU9ZZQKh5AWQdycOgJDFr ZPWMURPARKOZXRNVCT4FQX EgIFxwYXJcZnMyMlxwYXJc ZnMyMCBCLiBMQVJHRSBJTl PGL4YDFyMnMFIUM2CBJMWM O8rNPZASNC5YIEUXGFX7VY BhciAgICAgLSBPTkUgRlJB W51WJtSfA5NaHWUTMUaCRz EIGRIUZ13BXDyiSJDtUOXz BX4uKhLJY96LGvDKCJ8RUG UEMM0YXQYmMMTZZ1BPSGrS ETmtGC8EBSVXZJeGTR8DPP IrW9vUAgqCMzRsvUHvTWLm IoAguYZlVHIkEoMuXr2kB0 7TK08xSPISC3AYR7iTXP9P DCssOL9TAHREN4DJYVr6US UmxsRjVMSlRXSKX4jAVlwS IA7HM81KQJRAXMZGLNVVK7 8LUxDACWCDOZ5YGG4IHVKW C8uQWWfHWOIdsPWqNHCpBG MuWJ2MQPRNAR5DKXVYT5JO MTSUOE0MRRLeSUNAPzYSSb lFRCBccGFyXHBhciBCaWxs kHFiY6dbxvCoBDRVOEMikL SyGFNrle45TJR1GwVbu5G3 SMUiJiPlIIVlGK5jsZasSR ZeDS5iZVBmJ7njaX4bmmc3 WcZuHXTlLdV0FCZdcaD5Yb n6TVRaDRkkz4pvd4RzU4Ww iOHrlDs6q1ojOMHeGwN9eR PsUBteI3qsxsAzgCKgXTLz SNr9jVluZaGzEDSmx6eswc BcZmNoYXJzZXQwIENhbGli syv7yN25NUKkrX5goHHrAC xwesHcMbQ3CGmaYZYgYhD2 HJHvkOUfESAiT7fuXYZlPC ifBNYjVMwowOJlZAO6rLno o7T1pWGtwSKtjAwmHkMpJk ZcVDWPz5TkJXd5mGjqQ5Am TGVoOvJ5nAGwETPaWZxaWH ClEITufuM4yO84ADlpmgK8 oWGur9Mll65sq978eN4gkU KkXKZ8HPRqXWVyoXGgEFPm SEQ7WFRnqTYuC1hzFXHmBQ 4kqfmzCTfoLSmrKSLmqOQ0 HZQukWXmG4JuLYQjGNspXE Rtede0OrIdWt4ghYZrlIqk TWadz7tsm9cxhDOvXlz1VZ DoPhAyFbrjMVhtz7Obf7yw IYJjsr2uERH1vNSdfCvet8 K8xHXjRPVocBNyxnBwOFKq CyF5SDgeOR5inr03QELxHQ P7su6rpWFfrZoywuVxyVNg WLhuR8EuZHSik921OEXqC8 TyTXQum3F2pkYvBiEcCWGy tSZ3glI0IULrBSp9cVOpag P3rwItxZAzX7fptJ6tXSEq LZ6vpkluc4ejMDkpPIfyOC RheZM7tkH0NVEszGQjD8Ib sG5hBCWtMJxeXIGnqqy4Uy PiIq5otNZtsVwwECfmPfeo YWdlXHBnbmNvbnRccGduZG VjXHBsYWluXHBsYWluXGYw IMBiHrKkeKzitQqkuR0hWn JxMiEgPTeqTR0yXUUxF0yu aCDsZWUqSCQhV4jqSvAalB 9jaFxmMVxjZjJcZnMyMFxw YXIgSSBoYXZlIHBlcnNvbm OwlCthpaT9yVN2OKNwLHqu OAPdICFnbNDgmj9saOycHP DcIJ8pBOBtwkHiIRzciZwu LQmvFKQ1IHGewVWeoUJbhO FkZSBieSByZXNpZGVudHMs GSFwkVkkm6Dem9YdyYI7hU 8jg8qcu4YrIUEgbWT0WD26 xxV7tO8eCLGaDU1kTRFoMI 1mwFTyyEBxHFNau50tiZnc cyByZXBvcnQuXHBsYWluXG YyXGZzMjhcbGFuZzEwMzNc aGljaFxmMlxkYmNoXGYyXG fkE9zvUgGjZoUlHMdaUTA8 fQ== Clinical Information (test code = 2048507578) Screening Colonoscopy Gross Description (test code = 9453725096) t7hkeZBlYZCcpZNKSWF2ID CpOX5zgBwurZu3fCqoJLJc ysR8nUCkGUdoy8wnPUN8a5 osmlDYOxrqYLLkYB3rXEho BUEvRH1gYaDiUYDqWzBnRS BhcGVydzEyMjQwXHBhcGVy oPC8RUMfAS5eujlxAIzyRE eeEKAvsfO3HASjoLWoX1Co UGCcWZ8nuqtmRTE8BMOMGd abQu5dcHDqhZpzUiOpJoAi FOAhOELnBKOds6mysyFDkk usiGq1oQ8OWOQeK5PoCQ6R u2vqZODdvXPhVCS2UFtnz9 anVEgfZXN6VAQiSFQdHQXe QL8JPwHxEQH3EBH5IECgSs T8ULx8AFFQWZVyVOY1ZGij NhM7UQh7JRRfKI8xCXnqmB DhVBofCgqnNPlgS240IAhn YJPxW0QnF4MuKIzkMlYnIN ucCFBgYTKiDMsoBAEiK0JD JOXiMJjdVDV2TgBgXXw8JO j8GK9THfQfESDuVVH8CvY6 QWTtKGr2QIibQQ2TYGKgNV N8MwD3FFpySADtUpZaSJb1 IDIgXFxzcyAzIFxcZmwgXF viZ85rgJAbJWWWUotlkPXh blxmczIwIFNQRUNJTUVOIE QpoZWoZ6yaRqNlIwiaINSv DQpccGFyZCANClxwbGFpbl xsdHJjaFxmczIyXGVwaWNO CSG8TG8kWTKCMghhsAVgIT Xvv9WpZXeomDazPPPiWoMf TCmSiUTurV2greTWZUfjTQ UhK8XtyoMuUZqwJTEjrf9q bGluLCBsYWJlbGVkIHRoZS RiRVIyKE70W5DjpaOxLXkw VUggbnVtYmVyLCAibGFyZ2 DybP59TRA6gV1kJLCczLxn gFGyj3NrtnYpgymuI52eq5 1nTQZkcZogNsDvp55qsYP2 gcGgJkT8UETdzq9zrJ1qZF wuqkXeaNmoyzVpw2F8ELCy x2S2UHFzqbAfsVUntSYrAF MkEqK7HIHhCGKhtWZncaYx sBWjlPVvxM8hivTcz82vZL C1TGCwLWZ0PNArYWE6BIAk MlFotHHiviHzN2jfKWeygI UpLiAgVGhlIHNwZWNpbWVu IGlzIGZpbHRlcmVkIGludG 8zWOJkdS9oq3nwFmDkUITd YZAjkiEecKEdhAI0GPYkaW 9xmO64gaVqlpYGXD6SCbsr oLcmFxAfyBFdOuK1MWNkuA WsIDI0NO8ymXvsLSFkTCn9 AInkREJtY1PlU3WlDLabJh BcXGlkIDUxMDAyIFxcZGIg A0SMUFBmWXdiLMT2OwHzPS r0AGx2LS6ZIyGwAILdDYW7 WqK5FZCyYHw3MXstEL4VJG PkZWY6Mcw5FsRuAGHbPgHx QKd0HVKrIFmfftJpNEyuMk rxCAzeG34grQOzQRyzKsYi SAaqzKiqMUVhRWD4BR1PYJ WuWgAnM7WKL1jKLR5bFtad czIyXHBhciANClxwYXJkIA 9GIRDxOKenDEf4nkPfPHFx LhHdSHClN13wa4MQy1NhQO 4QZLk3kaJebkhxSrQlTWWv xPUWc5OiPJzmFSHvQWQenY PTo7ZaQGXGKvZiFTLzqEAi HJUqxJZlmtDvAJt5HDXdcL 4bPw1mmHEkvY8uSFeqJhQo ZWQgdGhlIHBhdGllbnQncy OeDI3dOIWFGCYfgS6uEDUc JSTwBFLpRQAfrcMtm2Xpum CqHFDlC2TaJCVzd5h5rOS5 KJMvWXSicgPey4DmMA6tDG PtmECqDKPpjhagFH3cLI03 l1ilLIQmLsYavHwcu0AyYQ NwOUmnKI58qsQjAL66AFiz OK9qVSkjWP0vGTLcUYFpES AwLjMgeCAwLjIgeCAwLjIg B49dPpYfXDevTQNuSJDxlX VuIGlzIGZpbHRlcmVkIGlu uJ7iGQYzhP9nm3pzUwKgGG EvJGHbrgAfzGVbaOU7MDYf dG9ylA76oxXczdYDNY7XQb orhUjuCuByjZTqIbN2TVTq bUKuBOW3YY5oqBskJBVyVL r3IQzhTBJvM7LzC3FjXPnb ZyBcXGlkIDUxMDAyIFxcZG GhI2KHOYRmHOzjUPJ2XpEr LMp4RVn1GT9DPjYxWUCmDC C6Sdk8XnGeSRq4ZOamPI5Q RFBbAYB1ZJJkFOAdFYWgDw HsEQj6WQXdEAolpxZaQMmg PydmEOukD07ecGFcDIuoBo GnHHlvcDarXOYeQDP1GY5O GNJxUzYwC4VSA9lYJW9bD4 xmczIyXHBhciANClxwYXJk MS1SVKYhDUdaKSu1yuMaUM CsHoCbGJPmY47xl2ISb2Da LY1SAVq8epYfgqsoLeLrOD BshXLRb6BxKVQUBnElOARs cNGxZAGiwFRusjZnEMo4WB YorL5tIl9nqNCxmN4dTSzo YmVsZWQgdGhlIHBhdGllbn VzrePdFX4pMDTHTCLkjY6e QUItACWjZOK9qO4fDSGzR2 Pxs4samS3gKWSqe7e7oOXy MF3tNYQkodHog7OmSH3bII Gmf7odM6dsSTBsgJJphESu VW77s6aaMHKdFfUitSgvg5 RfASSwPIheXJ57WXdqPpFk eBXvKmFybIBwQuPxH80pDg AgVGhlIHNwZWNpbWVuIGlz TSYzyKGtiyMdZEyajJ4fXL VciO0aq7jvSePwJYOtEKEe agIhlJFefDP7HMZliP2clJ 73wcRcgxOWBT8siFRaCR5S CDThlvSbtXFfmZGqDW1NYT UfecPEUostn9IuDR1fS0Wx QGPFTGOKQ6CsSGCvcoATIe rbez55XLQ8j5mzpOObUHhp OaiveNPilwS3DLbVHMANTS lADoUwMX3pWGaDWyhZPKqJ FufjSOQlFBG5CYqOMAWKcW R3vQvkbTu3c4bsjIAey4o7 DPmxOKG2qAUqVf7xLAW3OJ I0AmJyo1kptYNeAHahTfbk yFTbuqC8CTtMJJYVRWpUBr UoWX9lNWvUWlfTMiL0MuLa NBNrgSS3FAMOSSucoKb5XL x5vNumYrbaovRqxCGuSyZU iY6jnDfdtY9imVLxY1snNh RoSxzjZZDjKGzgt6DsFGpf cGljWHNhMzAgDQpcZXBpY0 2ej4JDw0Pia1btkNxhf9Gl nWFxYA82ERMobPTaEHK2HW 5kfVxwYXIgDQpccGFyZCAN Cn0= Disclaimer (test code = 6836196960) d5zxkOOvVYXxo9mxJMWckU FuZzEwMzNcZnRuYmpcdWMx GGpflbWjMHdlg3CsR7UoDo AwMFxhbnNpXGRlZmxhbmcx GAOiUFY1gqWdCBBlDUgqEF TfTIucUj3nlYExxMxxSmMj VXDem8qqgnWOPVifOlHtR7 12TQOiALlno8fum9YeNCGr lHVew8J2SSTPutdrgVc1kK ouP72rg3R8JwlnH0paUEYc UREhN6XcUY0qTLEaQeu8DG N4KWS5WSAhGOKkX7JvOI6e QWAylLLwGTj5g2hvfPjdDJ UeCTB7m5mbFTuvkrYlQQ5d hp6noRo4s0ycyoBsHJUdOH OfbXRRNAJkE5AmaVllLc3z uJo3iBxtIeexJKP3Cuj1OE 3vnh44yul1gGtmPIJselwl LxP4DIkhAWHjyrdsTFb3BH bxGOAyuFL4GCPmxEOjB1Fd NHDvTT4qttb7NYS2BJwdAS AjTrO3ZKAluRGxSJIzqOnb AUuii297CVA6TzZcLW5hY8 Tiv4D0cW1vvFHlOURvdDXs GfRvYPMizn5lnZNfUVqar8 IlXSR0bbG7uVJuqPLvCHKd DT33Ikbeg0ZrKevgo5XvA3 2iiBU6UXojw9xwQZ8fAzQ0 urLrVXgll9vboC8xFlX1OA ldMW6sXC5dWTZgxY7zexac XHBnYnJkcmhlYWRccGdicm KwKl5ucMajPXO0WPrdC2cl rD5uVhF8PLbtO5sxgL1sUI h3YQbeeUV4CMBnfI4sNF8h kzmop5ckFEkrIFmpKURpcr F9qmX4FNNwvVEuN7ErlB1c MZFkOP7yeqdol6tfDPO2CK jyCNHbMTB4WiNiSEMki9Cm cel8BpIhe9GwsNAmSPzqJ5 7dm912DYBeedSvV8cepODx eykulKQdyqmwUUxvzzC2TQ YiktOts0QuMEKvEIH0JQhy RGmsgOLeKJKufUlmc0alS2 RscGFyXHBsYWluXGYxXGZz MjBcbGFuZzEwMzNcaGljaF mcZEyzEtUcNYFtFIrnE6vw LjHoA3CmPGNoUqSngDVfM8 ggVGhpcyByZXBvcnQgbWF5 GMsjF0f2BVKwjlKowWb9sl ThHpJbDMLpZTD6RTtesHUp PFDnh7KgahocrKByGi5yhP OtSILcyD2eMXSnABTdSLxn DG9soTz5KJYEoHCvzDBjTn EPIRYoGP35wrQcKWAVgvuo b3V4VDstIIEmd8AecEMjJ2 rzh6CmTXJzi45rTO6cx8S3 d5lrOPD2AR4fg1PyTLZcoJ ZkmWSzBMAmt5Njxodrj5Sq DEKpzoFzt1PsQDHayhNfxI ZiTUJiyzBnkp9rplTtVTXu YOQoQ9MhvlwmmOfjwoRtOB Gbms3wjjYzPIV3HBUYUSXr GMSsk7KrdS4ygSCSCIT5lV Xeir1dhpYJjLYhPLWnew93 PHQjEG7iL6qxSLFcKYRuza JohSWzj9JyYCAwaZI4xHEm XY0RWoDEw50mQHXvZUIAef MfLVZuiEybqTK9ttL9jO8m IChGREEpLlx+IFRoZSBGRE MaMV3lbnGod0UsgbAytZdk JFCiaIRce1PppBKzx0OziQ aid3TwkRIjoKSxZD6rPHUd clxwYXIgVVRNQiBMYWJvcm Y2t5FaLZXaXYHdRHQ4fIwr gao4GSDuzH5eYUDvL5yrqc wlQDknECQqv0SelM5usFAP nTTbo8JjmXNreJILhZSbGZ 8yqzVuMSuOJHcBPLM1kxEx EGTxa2EnURwrI3imL86ulA gygGc2hUR9EIR0vC3eTbc+ IFxwYXJccGFyIEFwcHJvcH OkELDerGvghbFpA2EvnwVj qE7gyCWbqeEjXY0wIN1nM6 F3iHWyXHGdtqUzf1ahBXnn dmUgYmVlbiByZXZpZXdlZC Lgd0JvBQnfJHL2ARypqhVb bmNsdWRpbmcgSCZFLCBTcG DknGZsRLG7MZpxwfPpaxSm ZQ5leJ5zbWigaW1amRCehG Y8raffZTKzIZElkWiwCUId DY0qoChyfP7pIrLbWjArGI hsGO8oRNOiH7jdfILcLZBw EWWtX0umRgIgeG6qoFloUI xjZjJcZnMyMFxwYXJccGFy XHBsYWluXGYxXGZzMjBcbG FuZzEwMzNcaGljaFxmMVxk UrNbADNcAJxmN5haAiHqH5 RfOWNfQlCvmCUuG2jaEDyt PSP4DDYxCW5kpEEaNE78rE Rca9nlRMjupYrjfo4rE54v yAOqXUndsWehONIdi88yc9 KvITCvrqNiur7aCCAizsP0 jW4zGUMazHdbARLqnLAeLH Uej9LuHPfsqPTfnuDcNNil PTCfWFEycSKckwY0dvDnkx DcjqUoRJNeoItcPTWpm0Nw IBXkNHjkz8Oggy1itNInOS IhliYYrHnujNSnpZ9cV9Py TPOpQSEdfu9yZFXdwF3fRE hfq8YhexxhKTWpAZAoMXDc nrKfcv0lDBJgfZGYCK7HHD ktsKPgj5JhorFmQ3zQQEE5 NUQwNjYwMjgxKSBleGNlcH RhZISjne25QNXsmU4wqUbn VWEnfV1uxC7aiXysjO5hDt ZmRjYyCOzwHR5dUZFwB9vw rQSuNMDuZWSkG7nbWoDjyU 9jaFxmMVxjZjJcZnMyMFxw YXJ9fQ== Embedded Images (test code = 1126305587) [facility] GLUCOSE (AUTOMATED)2024-12-28 15:54:00* Test Item Value Reference Range Interpretation Comme nts POCT GLU (test code = 2741679463) 234 mg/dL 70-110 H Lab Interpretation (test cod e = 87927-8) Abnormal [facility] GLUCOSE (AUTOMATED)2024-12-28 15:54:00* Test Item Value Reference Range Interpretation Comme nts POCT GLU (test code = 3683790179) 234 mg/dL 70-110 H Lab Interpretation (test cod e = 23095-9) Abnormal [facility] GLUCOSE (AUTOMATED)2024-12-28 14:33:29* Test Item Value Reference Range Interpretation Comme nts POCT GLU (test code = 9226157721) 215 mg/dL 70-110 H Lab Interpretation (test cod e = 44534-7) Abnormal [facility] GLUCOSE (AUTOMATED)2024-12-28 14:33:29* Test Item Value Reference Range Interpretation Comme nts POCT GLU (test code = 4895238907) 215 mg/dL 70-110 H Lab Interpretation (test cod e = 75621-3) Abnormal [facility] Urinalysis, [id number] 17:55:00 * Test Item Value Reference Range [...] U APPEAR (test code = 3267) [facility],US,[id number] 17:53:00* Test Item Value Reference Range Interpretation Comme nts PVR (URINE VOLUME) (test code = 5193) 187 ml 0-100 [facility] (A1C)2024-11-07 16:49:01* Test Item Value Reference Range Interpretation Comme nts HGB A1C (test code = 4548-4) 6.5 % 4.0-5.7 H ROLANDO (test code = ROLANDO) Reference RangesNormal: <5.7%Prediabetes: 5.7 - 6.4%Diabetes: > 6.5% Lab Interpretation (test code = 83936-4) [facility]normal [facility] HospitalThyroid Stimulating [id number] 16:32:18 * Test Item Value Reference Range Interpretation Comme nts TSH (test code = 8346842823) 1.88 0.45-4.70 Biotin has been reported to cause a negative bias, interpret results relative to patient's use of biotin. Lab Interpretation (test code = 25630-5) [facility] [id number] 16:18:21* Test Item Value Reference Range Interpretation Comme nts FREE T3 (test code = 5260404207) 4.05 pg/mL 2.77-5.27 Lab Interpretation (test cod e = 24754-6) [facility]Lip[facility] (46756)(Total Cholesterol, Triglycerides, HDL)2024-11-07 16:04:03* Test Item Value Reference Range Interpretation Comme nts CHOL (test code = 0460009141) 138 mg/dL 120-200 HDL (test code = 8246606887) 48 mg/dL >=40 HDLC RATIO (test code = 6893770731) 2.9 <=5.0 TRIG (test code = 8999066482) 70 mg/dL 30-170 LDL CHOL (test code = 67478-1) 76 mg/dL <=160 VLDL (test code = 9370270475) 14 mg/dL 5-60 Lab Interpretation (test cod e = 42837-2) Normal [facility] [id number] 15:59:39* Test Item Value Reference Range Interpretation Comme nts FREE T4 (test code = 0151253759) 1.16 ng/dL 0.78-2.20 Lab Interpretation (test cod e = 83496-7) Normal [facility] Urinalysis, [id number] 16:19:00 * Test Item Value Reference Range [...] Clear Lab Interpretation (test cod e = 93533-2) [facility]normal [facility]ID RES,US,[id number] 00:00:00* Test Item Value Reference Range Interpretation Comme nts PVR (URINE VOLUME) (test code = 5193) 17 ml 0-100 [facility] Urinalysis, [id number] 19:08:00 * Test Item Value Reference Range [...] Cloudy Lab Interpretation (test cod e = 87980-1) Abnormal [facility]ME[facility],POST-VOID RES,US,[id number] 19:08:00* Test Item Value Reference Range Interpretation Comme nts PVR (URINE VOLUME) (test code = 5193) 18 ml 0-100 [facility] GLUCOSE (AUTOMATED)2024-08-26 16:30:13* Test Item Value Reference Range Interpretation Comme nts POCT GLU (test code = 5928655784) 213 mg/dL 70-110 H Lab Interpretation (test cod e = 46008-2) Abnormal [facility] GLUCOSE (AUTOMATED)2024-08-26 16:30:13* Test Item Value Reference Range Interpretation Comme nts POCT GLU (test code = 3996444216) 213 mg/dL 70-110 H Lab Interpretation (test cod e = 86424-0) Abnormal [facility] GLUCOSE (AUTOMATED)2024-08-26 12:37:35* Test Item Value Reference Range Interpretation Comme nts POCT GLU (test code = 4836601196) 215 mg/dL 70-110 H Lab Interpretation (test cod e = 47345-2) Abnormal [facility] GLUCOSE (AUTOMATED)2024-08-26 12:37:35* Test Item Value Reference Range Interpretation Comme nts POCT GLU (test code = 7420994772) 215 mg/dL 70-110 H Lab Interpretation (test cod e = 83466-9) [facility] 01:38:34* Test Item Value Reference Range Interpretation Comme nts POCT GLU (test code = 8034453703) 219 mg/dL 70-110 H Lab Interpretation (test cod e = 50230-3) [facility]26 01:38:34* Test Item Value Reference Range Interpretation Comme nts POCT GLU (test code = 7049247822) 219 mg/dL 70-110 H Lab Interpretation (test cod e = 13283-6) Abnormal [facility] GLUCOSE (AUTOMATED)2024-08-25 21:36:35* Test Item Value Reference Range Interpretation Comme nts POCT GLU (test code = 4785145060) 307 mg/dL 70-110 H Lab Interpretation (test cod e = 85492-2) Abnormal [facility] GLUCOSE (AUTOMATED)2024-08-25 21:36:35* Test Item Value Reference Range Interpretation Comme nts POCT GLU (test code = 4767375065) 307 mg/dL 70-110 H Lab Interpretation (test cod e = 93732-7) Abnormal [facility] GLUCOSE (AUTOMATED)2024-08-25 18:34:58* Test Item Value Reference Range Interpretation Comme nts POCT GLU (test code = 0738443594) 330 mg/dL 70-110 H Lab Interpretation (test cod e = 27505-1) Abnormal [facility] GLUCOSE (AUTOMATED)2024-08-25 18:34:58* Test Item Value Reference Range Interpretation Comme nts POCT GLU (test code = 4936308721) 330 mg/dL 70-110 H Lab Interpretation (test cod e = 08011-1) Abnormal [facility] GLUCOSE (AUTOMATED)2024-08-25 12:47:32* Test Item Value Reference Range Interpretation Comme nts POCT GLU (test code = 8839519262) 278 mg/dL 70-110 H Lab Interpretation (test cod e = 00250-0) Abnormal [facility] GLUCOSE (AUTOMATED)2024-08-25 12:47:32* Test Item Value Reference Range Interpretation Comme nts POCT GLU (test code = 9417362243) 278 mg/dL 70-110 H Lab Interpretation (test cod e = 48725-6) Abnormal [facility] GLUCOSE (AUTOMATED)2024-08-25 02:03:33* Test Item Value Reference Range Interpretation Comme nts POCT GLU (test code = 8646115524) 189 mg/dL 70-110 H Lab Interpretation (test cod e = 20760-3) Abnormal [facility] GLUCOSE (AUTOMATED)2024-08-25 02:03:33* Test Item Value Reference Range Interpretation Comme nts POCT GLU (test code = 3895977536) 189 mg/dL 70-110 H Lab Interpretation (test cod e = 71285-8) Abnormal [facility]. Metabolic Panel (29488)2024-08-23 17:30:55* Test Item Value Reference Range Interpretation Comme nts NA (test code = 0727405022) 134 mmol/L 135-145 L K (test code = 2531207480) 4.5 mmol/L 3.5-5.0 CL (test code = 1229315702) 100 mmol/L 98-108 CO2 TOTAL (test code = 9959749536) 23 mmol/L 23-31 AGAP (test code = 6563110711) 11 2-16 BUN (test code = 8937276571) 17 mg/dL 7-23 GLUCOSE (test code = 1445022090) 253 mg/dL 70-110 H CREATININE (test code = 2160-0) 0.61 mg/dL 0.60-1.25 TOTAL BILI (test code = 2637691025) 1.0 mg/dL 0.1-1.1 CALCIUM (test code = 8558109279) 9.4 mg/dL 8.6-10.6 T PROTEIN (test code = 2843747882) 7.4 g/dL 6.3-8.2 ALBUMIN (test code = 4792221528) 4.3 g/dL 3.5-5.0 ALK PHOS (test code = 6859366843) 102 U/L 34-122 ALTv (test code = 1742-6) 15 U/L 5-50 AST(SGOT) (test code = 2863291911) 16 U/L 13-40 eGFR (test code = 26870-6) 105.9 mL/min/1.73m2 CKD-EPI eGFR (2020). Assuming creatinine has been stable day-to-day for at least three months, the eGFR indicates Category G1 (>= 90 mL/min/1.73 m2) Lab Interpretation (test code = 75003-5) Abnormal [facility] with [id number] 17:19:31* Test Item Value Reference Range Interpretation [...] 33.3 g/dL 31.2-35.0 RDW-SD (test code = 62036-3) 42.3 fL 38.5-51.6 RDW-CV (test code = 788-0) 12.4 % 12.1-15.4 PLT (test code = 777-3) 301 150-328 MPV (test code = 28067-3) 9.7 fL 9.8-13.0 L NRBC/100 WBC (test code = 6999498777) 0.0 0.0-10.0 NRBC x10^3 (test code = 2665316300) See_Comment [Automated message] The system which generated this result transmitted reference range: 10*3/?L. The reference range was not used to interpret this result as normal/abnormal. GRAN MAT (NEUT) % (test code = 770-8) 73.1 % IMM GRAN % (test code = 4460494676) 0.40 % LYMPH % (test code = 736-9) 17.4 % MONO % (test code = 5905-5) 8.5 % EOS % (test code = 713-8) 0.1 % BASO % (test code = 706-2) 0.5 % GRAN MAT x10^3(ANC) (test code = 3287272399) 10.29 10*3/uL 1.99-6.95 H IMM GRAN x10^3 (test code = 5929408007) 0.05 10*3/uL 0.00-0.06 LYMPH x10^3 (test code = 731-0) 2.44 10*3/uL 1.09-3.23 MONO x10^3 (test code = 742-7) 1.19 10*3/uL 0.36-1.02 H EOS x10^3 (test code = 711-2) 0.06-0.53 L BASO x10^3 (test code = 704-7) 0.07 10*3/uL 0.01-0.09 Lab Interpretation (test code = 71082-1) [facility],[id number] 19:33:00* Test Item Value Reference Range Interpretation Comme nts PVR (URINE VOLUME) (test cod e = 5193) 182 ml 0-100 A Lab Interpretation (test cod e = 84224-7) Abnormal [facility] GLUCOSE (AUTOMATED)2024-08-15 20:53:28* Test Item Value Reference Range Interpretation Comme nts POCT GLU (test code = 3678594240) 129 mg/dL 70-110 H Lab Interpretation (test cod e = 03939-4) Abnormal [facility] GLUCOSE (AUTOMATED)2024-08-15 20:19:56* Test Item Value Reference Range Interpretation Comme nts POCT GLU (test code = 6947180526) 59 mg/dL 70-110 L Lab Interpretation (test cod e = 36182-2) Abnormal [facility] Urinalysis, [id number] 13:37:00 * Test Item Value Reference Range [...] U APPEAR (test code = 3267) clear [facility],POST-VOID RES,US,[id number] 00:00:00* Test Item Value Reference Range Interpretation Comme nts PVR (URINE VOLUME) (test code = 5193) 0 ml 0-100 [facility] [id number] 18:35:00 * Test Item Value Reference Range [...] U APPEAR (test code = 3267) clear [facility],POST-VOID RES,US,[id number] 00:00:00* Test Item Value Reference Range Interpretation Comme nts PVR (URINE VOLUME) (test cod e = 5193) 184 ml 0-100 A Lab Interpretation (test cod e = 27181-4) Abnormal [facility] GLUCOSE (AUTOMATED)2024-07-10 13:24:26* Test Item Value Reference Range Interpretation Comme nts POCT GLU (test code = 7964648039) 170 mg/dL 70-110 H Lab Interpretation (test cod e = 14219-4) Abnormal [facility] GLUCOSE (AUTOMATED)2024-07-10 05:20:57* Test Item Value Reference Range Interpretation Comme nts POCT GLU (test code = 9671952488) 198 mg/dL 70-110 H Lab Interpretation (test cod e = 36357-6) Abnormal [facility] GLUCOSE (AUTOMATED)2024-07-10 02:14:27* Test Item Value Reference Range Interpretation Comme nts POCT GLU (test code = 8411364452) 72 mg/dL 70-110 Lab Interpretation (test cod e = 33591-6) Normal [facility] GLUCOSE (AUTOMATED)2024-07-09 22:05:58* Test Item Value Reference Range Interpretation Comme nts POCT GLU (test code = 8461138419) 368 mg/dL 70-110 H Lab Interpretation (test cod e = 74032-6) Abnormal [facility] GLUCOSE (AUTOMATED)2024-07-09 16:22:56* Test Item Value Reference Range Interpretation Comme nts POCT GLU (test code = 0137298960) 157 mg/dL 70-110 H Lab Interpretation (test cod e = 93445-4) Abnormal [facility] GLUCOSE (AUTOMATED)2024-07-09 13:27:31* Test Item Value Reference Range Interpretation Comme nts POCT GLU (test code = 2033279786) 129 mg/dL 70-110 H Lab Interpretation (test cod e = 34147-2) Abnormal [facility] GLUCOSE (AUTOMATED)2024-07-09 06:44:52* Test Item Value Reference Range Interpretation Comme nts POCT GLU (test code = 1043519865) 164 mg/dL 70-110 H Lab Interpretation (test cod e = 75502-2) Abnormal [facility] GLUCOSE (AUTOMATED)2024-07-09 01:40:51* Test Item Value Reference Range Interpretation Comme nts POCT GLU (test code = 6123454131) 181 mg/dL 70-110 H Lab Interpretation (test cod e = 10751-4) [facility] 22:37:26* Test Item Value Reference Range Interpretation Comme nts POCT GLU (test code = 3677568056) 104 mg/dL 70-110 Lab Interpretation (test cod e = 94633-5) Normal [facility]an[facility] echo (TTE) [id number] 22:06:45* Test Item Value Reference Range Interpretation Comme nts Height (test code = 0879464055) 72 in Weight (test code = 1176270351) 159 lbs Systolic BP (test code = 6679931582) 143 mmHg Diastolic BP (test code = 2616634865) 79 mmHg Heart Rate (test code = 9344239784) 72 bpm LVOT stroke volume (test code = 3362588234) 52.00 cm3 EF(Teich) (test code = 2956356863) 35.90 % LVIDD (test code = 0101934239) 4.60 cm LVIDS (test code = 0378912328) 3.80 cm Left Ventricular End Systolic Volume by Teichholz Method (test code = 0927362) 62.2 mL Left Ventricular End Diastolic Volume by Teichholz Method (test code = 5378293) 97.0 mL IVS (test code = 8812075065) 0.96 cm LVPWD (test code = 0534168756) 0.93 cm LVOT diameter (test code = 1086919087) 1.81 cm LVOT area (test code = 4743754954) 2.60 cm2 FS (test code = 5988876172) 17 % MV Peak E Riddhi (test code = 2805596477) 43.5 cm/s MV Peak A Riddhi (test code = 3680328238) 60.8 cm/s E/A ratio (test code = 9795307660) 0.72 ratio MV E/e' septal (test code = 1389485119) 13.2 cm/s LA Volume Index (BP) (test code = 1316948886) 25.6 mL/m2 LA volume (BP) (test code = 0227837540) 49.4 mL LVOT peak riddhi (test code = 4032340611) 88.0 cm/s LVOT mn grad (test code = 3817503700) 1.5 mmHg Left Ventricular Cardiac Output (test code = 8557061) 3.5 L/min BSA (test code = 1349857743) 1.93 m2 LA size (test code = 9218800330) 2.9 cm LAV(MOD-sp2) (test code = 0922683123) 62.10 mL LAV(MOD-sp4) (test code = 1923377817) 38.40 mL Tapse (test code = 5094567657) 1.04 cm AV LVOT peak gradient (test code = 3082092349) 3.1 mmHg LVOT peak VTI (test code = 4094474912) 20.3 cm Aortic HR (test code = 0500260218) 67.20 BPM LV V1 mean (test code = 0962237975) 56.20 cm/s MV Prop V (test code = 9428368429) 32.50 cm/s TR Peak Riddhi (test code = 7427069964) 198.2 cm/s Triscuspid Valve Regurgitation Peak Gradient (test code = 7454729953) 15.7 mmHg Ao root diam (test code = 2846864536) 4.00 cm Aortic root (test code = 0107931356) 4.0 cm Ao root annulus (test code = 7528680295) 4.0 cm PW (test code = 0765933586) 0.93 cm 0.6-1.1 EF - 2D (test code = 68841517) 35.90 % Interventricular Septum Diastolic Thickness by 2D (test code = 4608203) 0.96 cm A4C EF (test code = 2671521311) 46.90 % EF(sp4-el) (test code = 1818379787) 48.00 % SV(MOD-sp4) (test code = 8101829936) 62.10 mL SV(sp4-el) (test code = 2424245052) 64.80 mL LV Diastolic Volume (BP) (test code = 8210720640) 105.1 mL A2C EF (test code = 4687832179) 52.60 % EF(MOD-bp) (test code = 2036293791) 50.10 % EF(sp2-el) (test code = 6250892615) 53.50 % LV Systolic Volume (BP) (test code = 7634133246) 52.4 mL SV(MOD-bp) (test code = 8748642085) 52.70 mL SV(MOD-sp2) (test code = 8164467769) 40.70 mL EF (test code = 1740521050) 50 Left Ventricular Stroke Volume by 2-D Biplane-MOD (test code = 9091701) 52.7 mL RV-peck basal d (test code = 1185096752) 4.30 cm RV-peck mid d (test code = 2477119140) 3.9 cm LV Diastolic Volume Index (BP) (test code = 3229455223) 57.5 mL/m2 LV Systolic Volume Index (BP) (test code = 3301293798) 32.1 mL/m2 Radiology Study observation (narrative) (test code = 84238-0) ROLANDO (test code = ROLANDO) ?Left?Ventricle: Left [...] mid anterolateral.Other segments could not be evaluated. [facility] [id number] 20:23:06 MR STROKE BRAIN WO CONTRAST HISTORY: [...] in the mastoid air cells and paranasalair sinuses.[facility] 2024-07-08 17:15:23* Test Item Value Reference Range Interpretation Comme nts POCT GLU (test code = 3378004373) 171 mg/dL 70-110 H Lab Interpretation (test cod e = 09283-1) Abnormal [facility] [id number] 14:06:28CT ANGIOGRAM NECK, CT ANGIOGRAM HEAD PROVIDED [...] changes of left frontoparietal craniotomy are seen. [facility] [id number] 14:06:28CT ANGIOGRAM NECK, CT ANGIOGRAM HEAD PROVIDED [...] changes of left frontoparietal craniotomy are seen. [facility]08 13:20:20* Test Item Value Reference Range Interpretation Comme nts POCT GLU (test code = 8083586682) 241 mg/dL 70-110 H Lab Interpretation (test cod e = 73883-7) Abnormal [facility] GLUCOSE (AUTOMATED)2024-07-08 10:55:19* Test Item Value Reference Range Interpretation Comme nts POCT GLU (test code = 1909660735) 222 mg/dL 70-110 H Lab Interpretation (test cod e = 82550-0) Abnormal [facility] GLUCOSE (AUTOMATED)2024-07-08 02:05:17* Test Item Value Reference Range Interpretation Comme nts POCT GLU (test code = 6053901777) 139 mg/dL 70-110 H Lab Interpretation (test cod e = 29099-9) Abnormal [facility] Lipd Panel (82509)(TOTAL CHOLESTEROL, TRIGLYCERIDES, HDL)2024-07-08 01:01:17* Test Item Value Reference Range Interpretation Comme nts CHOL (test code = 6027130522) 104 mg/dL 120-200 L HDL (test code = 8064495150) 35 mg/dL >=40 L HDLC RATIO (test code = 4924286523) 3.0 <=5.0 TRIG (test code = 5010817379) 60 mg/dL 30-170 LDL CHOL (test code = 88459-6) 57 mg/dL <=160 VLDL (test code = 6675216180) 12 mg/dL 5-60 Lab Interpretation (test cod e = 64682-0) Abnormal [facility] HEAD WO [id number] 00:48:08EXAM: CT HEAD WO CONTRAST HISTORY: 68 [...] clear. The calvariumand central skull base are unremarkable.[facility] hospital[facility]IN [id number] 23:06:01 * Test Item Value Reference Range Interpretation Comme nts TROPONIN I (test code = 4839386912) 0.003 ng/mL <=0.034 ROLANDO (test code = [...] of biotin. Lab Interpretation (test code = 82784-5) Normal [facility] METABOLIC PANEL (NA, K, CL, CO2, GLUCOSE, BUN, CREATININE, CA)2024-07-07 22:55:20* Test Item Value Reference Range Interpretation Comme nts NA (test code = 8216608384) 140 mmol/L 135-145 K (test code = 4875951797) 3.9 mmol/L 3.5-5.0 CL (test code = 8036405769) 108 mmol/L 98-108 CO2 TOTAL (test code = 7583485615) 23 mmol/L 23-31 AGAP (test code = 0375260359) 9 2-16 BUN (test code = 1615257603) 11 mg/dL 7-23 GLUCOSE (test code = 1603805870) 111 mg/dL 70-110 H CREATININE (test code = 2160-0) 0.48 mg/dL 0.60-1.25 L CALCIUM (test code = 0367296897) 9.5 mg/dL 8.6-10.6 eGFR (test code = 34295-9) 113.9 mL/min/1.73m2 CKD-EPI eGFR (2020). Assuming creatinine has been stable day-to-day for at least three months, the eGFR indicates Category G1 (>= 90 mL/min/1.73 m2) Lab Interpretation (test code = 00744-0) Abnormal [facility] WITH [id number] 22:35:57* Test Item Value Reference Range Interpretation [...] 34.6 g/dL 31.2-35.0 RDW-SD (test code = 12913-7) 41.4 fL 38.5-51.6 RDW-CV (test code = 788-0) 12.7 % 12.1-15.4 PLT (test code = 777-3) 267 150-328 MPV (test code = 57406-8) 10.4 fL 9.8-13.0 NRBC/100 WBC (test code = 1749954212) 0.0 0.0-10.0 NRBC x10^3 (test code = 7673267923) See_Comment [Automated me ssage] The system which generated this result transmitted reference range: 10*3/?L. The reference range was not used to interpret this result as normal/abnormal. GRAN MAT (NEUT) % (test code = 770-8) 69.1 % IMM GRAN % (test code = 8018229197) 0.10 % LYMPH % (test code = 736-9) 22.4 % MONO % (test code = 5905-5) 7.2 % EOS % (test code = 713-8) 0.8 % BASO % (test code = 706-2) 0.4 % GRAN MAT x10^3(ANC) (test code = 0992197575) 5.22 10*3/uL 1.99-6.95 IMM GRAN x10^3 (test code = 1973044271) 0.00-0.06 LYMPH x10^3 (test code = 731-0) 1.69 10*3/uL 1.09-3.23 MONO x10^3 (test code = 742-7) 0.54 10*3/uL 0.36-1.02 EOS x10^3 (test code = 711-2) 0.06 10*3/uL 0.06-0.53 BASO x10^3 (test code = 704-7) 0.03 10*3/uL 0.01-0.09 [facility] ABDOMINAL AORTA SCREEN [id number] 15:17:23HISTORY: ?AAA screening. COMPARISON: None. TECHNIQUE: Abdominal [...] Mild atherosclerosis of lower abdominal aorta. No AAA.[facility] HospitalThyroid Stimulating [id number] 18:38:38* Test Item Value Reference Range Interpretation Comme nts TSH (test code = 0447494728) 1.31 0.45-4.70 Lab Interpretation (test cod e = 15735-8) Normal [facility] [id number] 18:24:57* Test Item Value Reference Range Interpretation Comme nts FREE T4 (test code = 2823447470) 1.30 0.78-2.20 Lab Interpretation (test cod e = 60202-3) Normal [facility] [id number] 18:24:56* Test Item Value Reference Range Interpretation Comme nts FREE T3 (test code = 6969383028) 3.86 pg/mL 2.77-5.27 Lab Interpretation (test cod e = 88333-9) Normal [facility] HospitalLipid Panel (68501)(Total Cholesterol, Triglycerides, HDL)2024-05-31 18:08:31* Test Item Value Reference Range Interpretation Comme nts CHOL (test code = 3951673506) 167 mg/dL 120-200 HDL (test code = 5654574721) 32 mg/dL >=40 L HDLC RATIO (test code = 6751024192) 5.2 <=5.0 H TRIG (test code = 7678374877) 74 mg/dL 30-170 LDL CHOL (test code = 05036-6) 120 mg/dL <=160 VLDL (test code = 4745152375) 15 mg/dL 5-60 Lab Interpretation (test cod e = 69212-3) Abnormal [facility]. Metabolic Panel (57242)2024-05-31 18:08:11* Test Item Value Reference Range Interpretation Comme nts NA (test code = 3598382890) 139 mmol/L 135-145 K (test code = 3733866562) 4.4 mmol/L 3.5-5.0 CL (test code = 7415500908) 102 mmol/L 98-108 CO2 TOTAL (test code = 7532063543) 26 mmol/L 23-31 AGAP (test code = 3273612391) 11 2-16 BUN (test code = 0177633622) 12 mg/dL 7-23 GLUCOSE (test code = 8855932890) 137 mg/dL 70-110 H CREATININE (test code = 2160-0) 0.55 mg/dL 0.60-1.25 L TOTAL BILI (test code = 6770785230) 1.0 mg/dL 0.1-1.1 CALCIUM (test code = 1656340583) 9.6 mg/dL 8.6-10.6 T PROTEIN (test code = 5743277013) 7.2 g/dL 6.3-8.2 ALBUMIN (test code = 6264831679) 4.2 g/dL 3.5-5.0 ALK PHOS (test code = 6897409962) 72 U/L 34-122 ALTv (test code = 1742-6) 22 U/L 5-50 AST(SGOT) (test code = 2286591866) 22 U/L 13-40 eGFR (test code = 11822-7) 109.3 mL/min/1.73m2 CKD-EPI eGFR (2020). Assuming creatinine has been stable day-to-day for at least three months, the eGFR indicates Category G1 (>= 90 mL/min/1.73 m2) Lab Interpretation (test code = 37975-9) Abnormal [facility] HospitalGlycosylated Hemoglobin (A1C)2024-05-31 18:07:20* Test Item Value Reference Range Interpretation Comme nts HGB A1C (test code = 4548-4) 7.2 % 4.0-5.7 H ROLANDO (test code = ROLANDO) Reference RangesNormal: <5.7%Prediabetes: 5.7 - 6.4%Diabetes: > 6.5% Lab Interpretation (test code = 21985-7) Abnormal [facility] HospitalCbc with [id number] 17:12:34* Test Item Value Reference Range Interpretation [...] 34.0 g/dL 31.2-35.0 RDW-SD (test code = 01531-3) 38.8 fL 38.5-51.6 RDW-CV (test code = 788-0) 11.9 % 12.1-15.4 L PLT (test code = 777-3) 305 150-328 MPV (test code = 51575-8) 9.5 fL 9.8-13.0 L NRBC/100 WBC (test code = 0341569704) 0.0 0.0-10.0 NRBC x10^3 (test code = 6372913954) See_Comment [Automated messa ge] The system which generated this result transmitted reference range: 10*3/?L. The reference range was not used to interpret this result as normal/abnormal. GRAN MAT (NEUT) % (test code = 770-8) 42.1 % IMM GRAN % (test code = 1754141566) 0.20 % LYMPH % (test code = 736-9) 48.3 % MONO % (test code = 5905-5) 7.6 % EOS % (test code = 713-8) 1.3 % BASO % (test code = 706-2) 0.5 % GRAN MAT x10^3(ANC) (test code = 6530187125) 2.34 10*3/uL 1.99-6.95 IMM GRAN x10^3 (test code = 6832340638) 0.00-0.06 LYMPH x10^3 (test code = 731-0) 2.68 10*3/uL 1.09-3.23 MONO x10^3 (test code = 742-7) 0.42 10*3/uL 0.36-1.02 EOS x10^3 (test code = 711-2) 0.07 10*3/uL 0.06-0.53 BASO x10^3 (test code = 704-7) 0.03 10*3/uL 0.01-0.09 Lab Interpretation (test code = 60494-2) Abnormal [facility] GLUCOSE (AUTOMATED)2024-03-24 13:42:45* Test Item Value Reference Range Interpretation Comme nts POCT GLU (test code = 7592725580) 100 mg/dL 70-110 Lab Interpretation (test cod e = 42042-9) Normal [facility] GLUCOSE (AUTOMATED)2024-03-23 21:56:53* Test Item Value Reference Range Interpretation Comme nts POCT GLU (test code = 0899637025) 159 mg/dL 70-110 H Lab Interpretation (test cod e = 38823-3) Abnormal [facility] GLUCOSE (AUTOMATED)2024-03-23 20:50:05* Test Item Value Reference Range Interpretation Comme nts POCT GLU (test code = 7489531446) 164 mg/dL 70-110 H Lab Interpretation (test cod e = 42984-7) Abnormal [facility] GLUCOSE (AUTOMATED)2024-03-23 16:49:23* Test Item Value Reference Range Interpretation Comme nts POCT GLU (test code = 4402211696) 227 mg/dL 70-110 H Lab Interpretation (test cod e = 78443-0) Abnormal [facility] GLUCOSE (AUTOMATED)2024-03-23 16:49:23* Test Item Value Reference Range Interpretation Comme nts POCT GLU (test code = 2634234969) 227 mg/dL 70-110 H Lab Interpretation (test cod e = 91374-3) Abnormal [facility] GLUCOSE (AUTOMATED)2024-03-23 12:35:20* Test Item Value Reference Range Interpretation Comme nts POCT GLU (test code = 2622367966) 195 mg/dL 70-110 H Lab Interpretation (test cod e = 04636-4) Abnormal [facility] GLUCOSE (AUTOMATED)2024-03-23 12:35:20* Test Item Value Reference Range Interpretation Comme nts POCT GLU (test code = 0231815440) 195 mg/dL 70-110 H Lab Interpretation (test cod e = 63758-8) Abnormal [facility] GLUCOSE (AUTOMATED)2024-03-23 02:16:55* Test Item Value Reference Range Interpretation Comme nts POCT GLU (test code = 9891928734) 240 mg/dL 70-110 H Lab Interpretation (test cod e = 97986-3) Abnormal [facility] GLUCOSE (AUTOMATED)2024-03-23 02:16:55* Test Item Value Reference Range Interpretation Comme nts POCT GLU (test code = 8340123818) 240 mg/dL 70-110 H Lab Interpretation (test cod e = 31247-4) Abnormal [facility] GLUCOSE (AUTOMATED)2024-03-22 22:23:53* Test Item Value Reference Range Interpretation Comme nts POCT GLU (test code = 2401341777) 266 mg/dL 70-110 H Lab Interpretation (test cod e = 73368-1) Abnormal [facility] GLUCOSE (AUTOMATED)2024-03-22 22:23:53* Test Item Value Reference Range Interpretation Comme nts POCT GLU (test code = 0733411406) 266 mg/dL 70-110 H Lab Interpretation (test cod e = 90971-2) Abnormal [facility] GLUCOSE (AUTOMATED)2024-03-22 18:12:55* Test Item Value Reference Range Interpretation Comme nts POCT GLU (test code = 4563997303) 269 mg/dL 70-110 H Notified Provide r Lab Interpretation (test code = 49397-5) Abnormal [facility] GLUCOSE (AUTOMATED)2024-03-22 18:12:55* Test Item Value Reference Range Interpretation Comme nts POCT GLU (test code = 2472344129) 269 mg/dL 70-110 H Notified Provide r Lab Interpretation (test code = 24048-5) Abnormal [facility]esium2024-05-28 17:14:17* Test Item Value Reference Range Interpretation Comme nts MAGNESIUM (test code = 6477327084) 1.7 mg/dL 1.7-2.4 Lab Interpretation (test cod e = 61682-7) Normal [facility]Phosphorus2024-05-28 17:14:17* Test Item Value Reference Range Interpretation Comme nts PHOSPHORUS (test code = 2868549441) 3.0 mg/dL 2.5-5.0 Lab Interpretation (test cod e = 97432-4) Normal [facility] Metabolic Panel (NA, K, CL, CO2, GLUCOSE, BUN, CREATININE, CA)2024-03-22 17:14:17* Test Item Value Reference Range Interpretation Comme nts NA (test code = 5065797124) 137 mmol/L 135-145 K (test code = 4234137381) 4.0 mmol/L 3.5-5.0 CL (test code = 2454355193) 109 mmol/L 98-108 H CO2 TOTAL (test code = 2456722986) 24 mmol/L 23-31 AGAP (test code = 7939068273) 4 2-16 BUN (test code = 4196832984) 14 mg/dL 7-23 GLUCOSE (test code = 0192391981) 238 mg/dL 70-110 H CREATININE (test code = 2160-0) 0.56 mg/dL 0.60-1.25 L CALCIUM (test code = 9084621015) 8.2 mg/dL 8.6-10.6 L eGFR (test code = 15043-0) 108.7 mL/min/1.73m2 CKD-EPI eGFR (2020). Assuming creatinine has been stable day-to-day for at least three months, the eGFR indicates Category G1 (>= 90 mL/min/1.73 m2) Lab Interpretation (test code = 35620-2) [facility]* Test Item Value Reference Range Interpretation Comme nts MAGNESIUM (test code = 0539291130) 1.7 mg/dL 1.7-2.4 Lab Interpretation (test cod e = 84118-7) [facility]:14:17* Test Item Value Reference Range Interpretation Comme nts PHOSPHORUS (test code = 1237298175) 3.0 mg/dL 2.5-5.0 Lab Interpretation (test cod e = 72007-8) Normal [facility] Metabolic Panel (NA, K, CL, CO2, GLUCOSE, BUN, CREATININE, CA)2024-03-22 17:14:17* Test Item Value Reference Range Interpretation Comme nts NA (test code = 8473073319) 137 mmol/L 135-145 K (test code = 8296084997) 4.0 mmol/L 3.5-5.0 CL (test code = 0339543632) 109 mmol/L 98-108 H CO2 TOTAL (test code = 2527556742) 24 mmol/L 23-31 AGAP (test code = 1909606094) 4 2-16 BUN (test code = 4969759907) 14 mg/dL 7-23 GLUCOSE (test code = 7809129221) 238 mg/dL 70-110 H CREATININE (test code = 2160-0) 0.56 mg/dL 0.60-1.25 L CALCIUM (test code = 0462707343) 8.2 mg/dL 8.6-10.6 L eGFR (test code = 40569-2) 108.7 mL/min/1.73m2 CKD-EPI eGFR (2020). Assuming creatinine has been stable day-to-day for at least three months, the eGFR indicates Category G1 (>= 90 mL/min/1.73 m2) Lab Interpretation (test code = 58672-1) Abnormal [facility] with Fntr5328-98-26 16:43:11* Test Item Value Reference Range Interpretation [...] 33.5 g/dL 31.2-35.0 RDW-SD (test code = 68116-9) 39.9 fL 38.5-51.6 RDW-CV (test code = 788-0) 12.1 % 12.1-15.4 PLT (test code = 777-3) 229 150-328 MPV (test code = 15438-4) 10.0 fL 9.8-13.0 NRBC/100 WBC (test code = 0205102683) 0.0 0.0-10.0 NRBC x10^3 (test code = 7977899294) See_Comment [Automated BIO-NEMSa ge] The system which generated this result transmitted reference range: 10*3/?L. The reference range was not used to interpret this result as normal/abnormal. GRAN MAT (NEUT) % (test code = 770-8) 82.8 % IMM GRAN % (test code = 3336667716) 0.40 % LYMPH % (test code = 736-9) 14.6 % MONO % (test code = 5905-5) 1.4 % EOS % (test code = 713-8) 0.4 % BASO % (test code = 706-2) 0.4 % GRAN MAT x10^3(ANC) (test code = 3340750948) 4.66 10*3/uL 1.99-6.95 IMM GRAN x10^3 (test code = 4778667404) 0.00-0.06 LYMPH x10^3 (test code = 731-0) 0.82 10*3/uL 1.09-3.23 L MONO x10^3 (test code = 742-7) 0.08 10*3/uL 0.36-1.02 L EOS x10^3 (test code = 711-2) 0.06-0.53 L BASO x10^3 (test code = 704-7) 0.01-0.09 Lab Interpretation (test code = 54315-9) Abnormal [facility] with [id number] 16:43:11* Test Item Value Reference Range Interpretation [...] 33.5 g/dL 31.2-35.0 RDW-SD (test code = 12808-8) 39.9 fL 38.5-51.6 RDW-CV (test code = 788-0) 12.1 % 12.1-15.4 PLT (test code = 777-3) 229 150-328 MPV (test code = 41611-3) 10.0 fL 9.8-13.0 NRBC/100 WBC (test code = 3756909699) 0.0 0.0-10.0 NRBC x10^3 (test code = 4025996942) See_Comment [Automated messa ge] The system which generated this result transmitted reference range: 10*3/?L. The reference range was not used to interpret this result as normal/abnormal. GRAN MAT (NEUT) % (test code = 770-8) 82.8 % IMM GRAN % (test code = 7496502214) 0.40 % LYMPH % (test code = 736-9) 14.6 % MONO % (test code = 5905-5) 1.4 % EOS % (test code = 713-8) 0.4 % BASO % (test code = 706-2) 0.4 % GRAN MAT x10^3(ANC) (test code = 4030289079) 4.66 10*3/uL 1.99-6.95 IMM GRAN x10^3 (test code = 4014959147) 0.00-0.06 LYMPH x10^3 (test code = 731-0) 0.82 10*3/uL 1.09-3.23 L MONO x10^3 (test code = 742-7) 0.08 10*3/uL 0.36-1.02 L EOS x10^3 (test code = 711-2) 0.06-0.53 L BASO x10^3 (test code = 704-7) 0.01-0.09 Lab Interpretation (test code = 21641-7) Abnormal [facility] GLUCOSE (AUTOMATED)2024-03-22 16:30:20* Test Item Value Reference Range Interpretation Comme nts POCT GLU (test code = 9952295671) 250 mg/dL 70-110 H Lab Interpretation (test cod e = 24498-0) Abnormal [facility] GLUCOSE (AUTOMATED)2024-03-22 16:30:20* Test Item Value Reference Range Interpretation Comme nts POCT GLU (test code = 8023654326) 250 mg/dL 70-110 H Lab Interpretation (test cod e = 37512-5) Abnormal [facility] Confirmation (Lab Only)2024-03-22 12:34:24* Test Item Value Reference Range Interpretation Comme nts ABO & RH (test code = 20) A Positive Performed at [facility] Laboratory Services [facility] Blood [address] [address]Bqqh Free: [phone] No. [id number] [facility] Confirmation (Lab Only)2024-03-22 12:34:24* Test Item Value Reference Range Interpretation Comme nts ABO & RH (test code = 20) A Positive Performed at [facility] Laboratory Services [facility] Blood [address] [address]Nbaq Free: [phone] No. [id number] [facility] GLUCOSE (AUTOMATED)2024-03-22 10:48:44* Test Item Value Reference Range Interpretation Comme nts POCT GLU (test code = 3725759968) 204 mg/dL 70-110 H Lab Interpretation (test cod e = 67655-6) Abnormal [facility] GLUCOSE (AUTOMATED)2024-03-22 10:48:44* Test Item Value Reference Range Interpretation Comme nts POCT GLU (test code = 7008730259) 204 mg/dL 70-110 H Lab Interpretation (test cod e = 17248-7) Abnormal [facility] [id number] 00:00:00* Test Item Value Reference Range Interpretation Comme nts POCT Glu (age>30days) (test code = 3342) 204 mg/dL 70-110 A Lab Interpretation (test cod e = 64449-2) Abnormal [facility] [id number] 00:00:00* Test Item Value Reference Range Interpretation Comme nts POCT Glu (age>30days) (test code = 3342) 204 mg/dL 70-110 A Lab Interpretation (test cod e = 40659-3) [facility]normal [facility] [id number] 22:56:00* Test Item Value Reference Range Interpretation Comme nts ABO & RH (test code = 20) A POSITIVE IAT (test code = 1185) Negative [facility] HEALTH - [id number] 17:24:19Ordered by an unspecified provider.[facility] GLUCOSE (AUTOMATED)2024-03-03 06:02:22* Test Item Value Reference Range Interpretation Comme nts POCT GLU (test code = 8827291528) 120 mg/dL 70-110 H Lab Interpretation (test cod e = 58714-5) Abnormal [facility] HEAD WO [id number] 05:47:04Exam: CT Head Without Contrast, 03/02/2024 11:45 [...] significant mastoidair cell opacification. Visualized orbits are unremarkable.[facility] [id number] 05:18:52* Test Item Value Reference Range Interpretation Comme nts TROPONIN I (test code = 9816331834) 0.002 ng/mL <=0.034 ROLANDO (test code = [...] of biotin. Lab Interpretation (test code = 72468-1) Normal [facility] (NA, K, CL, CO2, GLUCOSE, BUN, CREATININE, CA)2024-03-03 05:06:47* Test Item Value Reference Range Interpretation Comme nts NA (test code = 3255028006) 137 mmol/L 135-145 K (test code = 2050097658) 3.8 mmol/L 3.5-5.0 CL (test code = 0301379262) 105 mmol/L 98-108 CO2 TOTAL (test code = 2279626309) 23 mmol/L 23-31 AGAP (test code = 2204974251) 9 2-16 BUN (test code = 4783835977) 18 mg/dL 7-23 GLUCOSE (test code = 8172416133) 135 mg/dL 70-110 H CREATININE (test code = 2160-0) 0.64 mg/dL 0.60-1.25 CALCIUM (test code = 2813847806) 9.3 mg/dL 8.6-10.6 eGFR (test code = 84713-9) 104.4 mL/min/1.73m2 CKD-EPI eGFR (2020). Assuming creatinine has been stable day-to-day for at least three months, the eGFR indicates Category G1 (>= 90 mL/min/1.73 m2) Lab Interpretation (test code = 38626-0) Abnormal [facility] WITH [id number] 04:57:27* Test Item Value Reference Range Interpretation [...] 34.6 g/dL 31.2-35.0 RDW-SD (test code = 68061-1) 40.2 fL 38.5-51.6 RDW-CV (test code = 788-0) 12.2 % 12.1-15.4 PLT (test code = 777-3) 333 150-328 H MPV (test code = 47280-3) 10.0 fL 9.8-13.0 NRBC/100 WBC (test code = 6750505082) 0.0 0.0-10.0 NRBC x10^3 (test code = 7026410220) See_Comment [Automated messa ge] The system which generated this result transmitted reference range: 10*3/?L. The reference range was not used to interpret this result as normal/abnormal. GRAN MAT (NEUT) % (test code = 770-8) 53.1 % IMM GRAN % (test code = 6779382766) 0.30 % LYMPH % (test code = 736-9) 33.6 % MONO % (test code = 5905-5) 9.8 % EOS % (test code = 713-8) 2.3 % BASO % (test code = 706-2) 0.9 % GRAN MAT x10^3(ANC) (test code = 4751320103) 3.97 10*3/uL 1.99-6.95 IMM GRAN x10^3 (test code = 8587658462) 0.00-0.06 LYMPH x10^3 (test code = 731-0) 2.51 10*3/uL 1.09-3.23 MONO x10^3 (test code = 742-7) 0.73 10*3/uL 0.36-1.02 EOS x10^3 (test code = 711-2) 0.17 10*3/uL 0.06-0.53 BASO x10^3 (test code = 704-7) 0.07 10*3/uL 0.01-0.09 Lab Interpretation (test code = 78294-2) Abnormal [facility]2024-[facility]-03 04:16:06* Test Item Value Reference Range Interpretation Comme nts POCT GLU (test code = 5618224989) 123 mg/dL 70-110 H Lab Interpretation (test cod e = 70766-1) Abnormal [facility] [id number] 17:07:53 Ordered by an unspecified provider.[facility] Consult Notes Date/Time Note Provider Source 2025-02-13 11:53:10 Associated Order(s): CONSULT PS PASTORAL CARE Visit Encounter: The Chief Operator Hydroformer visited the patient at bedside. Procedure toady requested prayer. Spiritism: Orthodoxy Spiritual Assessment: Patient Encounter: Alert and comfortable, seated upright in bed Patient was polite and receptive to the Chief Operator Hydroformer's presence. Visitors present: No Room setting: Well-lit, shades opened / lights turned on. Spiritual Intervention: Explored patient's spiritual, emotional and psychosocial needs Created safe space for patient to share Life Review Ministry of Listening with Empathy [facility] Pres[facility] Meditative Prayer/[place] Validated feelings where appropriate Outcome: Requested prayer for healing, peace, comfort and renewed strength to endure multiple health and personal challenges. Patient openly shared information about health, life story, and expressed concerns Patient expressed desire for renewed spiritual strength and comfort Patient appeared receptive to spiritual support and indicated he/she was comforted by the sinter feeder's visit. Patient thanked the sinter feeder for the prayer and visit Plan of Care: Spiritual, emotional and psychosocial care will be available when the patient has a need. Pastoral Care Follow-Up: As Needed Rev. Stacie Oshea Chief Operator Hydroformer 1 [facility] Department of Pastoral Care Office: [phone] Stacie Rodriguez [facility] 2025-02-06 14:07:45 Associated Order(s): CONSULT CARDIOLOGY Plz see office note [facility] 2024-07-09 16:39:02 Associated Order(s): CONSULT CARDIOLOGY [...] meds. PCI to one vessel 2005 in [place] followed by CABG in [place]. PMH: has a past medical history of [...] for arrhythmia -Outpatient follow up w his [employer] Dr Fink for ischemic workup -Can be referred to structural heart clinic on discharge for PFO -GDMT adjustment outpatient Cardiology will sign off. Discussed w Dr Sg Sevilla MD, NADIA Certified Hyperbaric Technician, PGY 4 Associated attestation - Valerie Garza MD - 07/10/2024 9:00 AM CDT I personally examined the patient on 07/09/[address] Sevilla's note. I actively participated in the decision-making process. Please see the fellow's note for additional details. Valerie Ospina MD Cardiology Faculty -CARDIOVASCULAR DISEASE STAFF [facility] 2024-07-08 16:51:00 Associated Order(s): CONSULT ADULT [...] 03/22/2024 Surgeon: Ron Hoover MD; Location: [facility] CORONARY ARTERY BYPASS GRAFT CRANIOTOMY Prior Living Situation: lives alone, resides at a mu-ism DME: Four wheeled walker with seat Prior level of Mobility: community ambulation, house hold ambulation Suspected ischemic or hemorraghic stroke:Yes, Pre-Stroke Modified Serena Score: 2 - Slight disability; unable to [...] before and after session COMMUNICATION Primary Language: Ivorian Able to Verbalize needs: Yes Vision:good; no [...] provided. Kathrine Garcia PT, DPT Pager Number: [phone] Total time treatments: 12 min Total treatment time: 24 min [facility] 2024-07-08 12:27:39 Associated Order(s): CONSULT MANAGER COMMODITIES-ADULT Please see previous SFA note, Thank you, Xenia Castanon RN Fire [employer] Marine Engineer, Care Management Department [facility] [address] [place] [address] P: [phone] F: [phone] E: [email or web address] 2024-07-08 09:02:35 Associated Order(s): CONSULT/REFERRAL NEUROLOGY; CONSULT NEUROLOGY [facility] NEUROLOGY CONSULT NOTE Reason for Consult: stroke [...] 03/22/2024 Surgeon: Ron Hoover MD; Location: [facility] CORONARY ARTERY BYPASS GRAFT CRANIOTOMY FAMILY HISTORY [...] glucagon, 1 mg, PRN labetaloL, 10 mg, [id number] ALLERGY Allergies Allergen Reactions Jardiance [Empagliflozin] Unknown [...] intracranial abnormality. Preliminary Report Dictated by Resident: Makenna French MD., have reviewed this study and agree [...] process. I agree with note as written [facility] - Health History and Physical Notes Date/Time Note Provider Source 2025-02-13 14:46:24 Pre-Procedure Sedation Evaluation See H&P for medical history and current medications. Allergies were reviewed. NPO Status Solids: >6 hours Clear liquids: >2 hours History History of anesthesia/sedation complications: No History of difficult airway: No History of neck problems, craniofacial abnormalities, head/neck surgery: No Increased risk for airway obstruction, sleep apnea, morbid obesity: No Focused Physical Exam Heart: documented in H&P Normal Lung: documented in H&P Normal Airway Mallampati: II (full visibility of soft palate and part of uvula) Mouth opening: Normal Range of motion neck: Normal Dentition: Normal Assessment: ASA 3 Plan: Moderate sedation The risks, benefits, and treatment options of sedation were discussed with the patient/guardian and they desire to proceed. The consent form was completed and signed. Discussed with Dr. Roberta Gee MD Cardiovascular Disease Fellow, PGY-6 Pager: [phone] Cosigned by Riley Granados MD at 02/13/2025 3:23 PM CDT Associated attestation - Riley Granados MD - 02/13/2025 3:23 PM CDT I agree. CARDIOVASCULAR DISEASE [facility] 2025-02-12 19:36:59 Images from the original note were not included. 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 Patient stated he has been having substernal, stabbing/sharp chest pain that occurred 6d ago while in PCP clinic. Described as pain moving across arms and chest, occurred while sitting. Had SOB during this time. Had gone to Cardiology clinic later that day, EKG with no acute changes. Given ASA load with nitro SL which improved the pain. Recommended to be admitted to [facility] for ischemic eval. Patient was admitted, and TTE done showed EF 45-50% as compared to last TTE 7 months prior. Patient left AMA after he was frustrated with SSI being used inpatient and not feeling like he was being attended to. He still had chest pain when he left but it initially improved. Then pain progressively got worse and was becoming more intermittent. He felt more weak throughout the week. Uses walker when going outside, but not at home. But since being weaker, he has had to use walker at home. Last night, he felt weak with chills and had woken up earlier this morning later than usual. Had experienced substernal chest pain with pressure all day so decided to go to OSH ED. There, he was given ASA 81 mg with 500 cc bolus. Initial VS showed BP 123/64, HR 92, RR 20, O2 sat 05% on RA. EKG with no ST-T wave changes. Had heparin bolus, Plavix load, fentanyl, and Zofran ordered. Troponin was reported to be elevated, so recommended transfer to [facility] for C. Upon arrival to [facility], patient admitted to pressure-like, substernal chest pain wo radiation. Initial EKG read as STEMI, but repeat EKG with RBBB (has had previous reads on previous EKGs) with no ST-T wave changes. STAT troponin drawn, negative. Had chest pain recur, stabbing, EKG also same as previous. Given SL nitro. Had SOB, but denied palpitations, nausea, diaphoresis. Stated he started to have lightheadedness/dizziness, which is chronic with exertion and was told these are "brain" changes since last CVA. CVA affected RLE, which he intermittently has to hop picker right leg since it has low strength. Right hand gets numb. Smoked tobacco in early 20s for 1 year, 1 pack/week. Drank heavily in 20-30s but has not drank EtOH since. Used cocaine last in late 20s to early 30s. Past medical history: has a past medical history of Brain bleed, CAD (coronary artery disease), CVA (cerebral vascular accident), Diabetes mellitus, Hyperlipidemia, Hypertension, Kidney stone, and Peripheral vascular disease, unspecified. Past surgical history: has a past surgical history that includes craniotomy; coronary artery bypass graft; carotid endarterectomy (Right, 03/22/2024); laser enucleation of prostate (N/A, 08/25/2024); and colonoscopy (N/A, 12/28/2024). Social history: reports that he has quit smoking. His smoking use included cigarettes. He has never been exposed to tobacco smoke. He has never used smokeless tobacco. He reports that he does not currently use drugs. He reports that he does not drink alcohol. Family history: family history includes Cancer in his mother; Coronary Heart Disease in his father and mother; Diabetes in his mother and sister; Heart in his father; Hypertension in his father and mother. Allergies: Allergies Allergen Reactions Jardiance [Empagliflozin] Unknown - See comments Morphine Unknown - See comments MEDICATIONS reviewed REVIEW OF SYSTEMS Positive and negative per HPI. 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 Patient with CP on arrival, subsequent EKGs negative. Initial troponin negative, will trend. JING 5 pts, HEART score 5 pts. ACS protocol started. Will need ischemic eval in AM. Patient requested he be placed on home Lantus dosing. Patient has had myopathy from Crestor 10 mg qhs, currently on 5 mg with Zetia. - Admit to [place] [facility] for ischemic eval - Trend troponin q6h - EKG if CP recurs with SL nitro - ACS protocol: ASA load, heparin gtt with bolus - Home Crestor 5 mg with Zetia - C/w 25u Lantus qAM, 3u Lispro TIDAC with SSI - Limited TTE in AM - C/w home meds: ASA 81 mg daily tmrw, Toprol XL Urinary retention Anxiety Patient reports to be taking Flomax 0.4 mg BID. - C/w home Flomax; can hold home Vitamins Pain Monitoring chest pain Tylenol Prophylaxis: DVT- heparin Stress Ulcer: no indication for prophylaxis Code Status: addressed: Full Code Bowel Regimen: None Calixto Sidhu DO PGY-2, Internal Medicine Cosigned by Ariadne Lassiter MD at 02/13/2025 11:32 AM CDT Associated attestation - Ariadne Lassiter MD - 02/13/2025 11:32 AM CDT After discussion with Dr. Sidhu , I examined this patient 02/12/2025. I agree with fellow's note as written. The time spent was 75 minutes for patient care which includes: precharting by reviewing EKGs and prior blood work-up as well as monitor results, obtaining and reviewing her medical chart as well as prior encounters, performing a full comprehensive medical exam and evaluation, discussing a cardiac procedure, documenting clinical information onto this electronic medical chart and independently interpreting prior results with communicating these results to the patient. Ariadne Lassiter MD Maintenance Crafts[employer] Department of Internal Medicine Division of Cardiovascular Disease [facility] 2025-02-06 18:00:14 Medicine History & Physical Date of Service: 02/06/2025 Pt presents from: [employer] office CC: Chest pain History of Present Illness: Maximus Sheehan is a 69 year old male with past md hx including coronary disease, history of stroke, diabetes, hypertension, hyperlipidemia and peripheral vascular disease that presents to the hospital for chest pain. Patient seen at outside candle molder machine office this morning complaining of chest pain. [...] Lispro (HumaLOG), , Subcutaneous, TID MEALS+HS, Adela Ward DO, 2 Units at 02/06/25 1213 Objective: Vitals: Vitals: 02/06/25 1200 02/06/25 1400 02/06/25 1549 02/06/25 1600 BP: (!) 149/81 (!) 161/69 (!) 145/73 BP Location: Left arm Patient Position: Sitting Pulse: 71 Resp: 08 13 12 16 Temp: 36.4 ?C (97.6 ?F) [...] not be completed DVT prophylaxis: Lovenox [place] SALES FORECAST ANALYST was verified Disposition: Patient leaving AMA [facility] 2024-12-28 08:17:59 COLORECTAL SURGERY HISTORY AND PHYSICAL [...] cholecalciferol (vitamin D3) 1,000 Units, Oral coenzyme [id number] E 100-5 mg-unit capsule Oral insulin glargine [...] Right 03/22/2024 Surgeon: Ron Hoover MD; Location: [facility] CORONARY ARTERY BYPASS GRAFT CRANIOTOMY LASER ENUCLEATION OF PROSTATE N/A 08/25/2024 Surgeon: Lynn Doll MD; Location: [facility] OR LOCATION Family History Problem Relation [...] 12/28/2024 8:22 AM Colon and Rectal Surgery [facility] 2024-08-25 07:38:40 UROLOGY HISTORY AND PHYSICAL NOTE [...] 03/22/2024 Surgeon: Ron Hoover MD; Location: [facility] CORONARY ARTERY BYPASS GRAFT CRANIOTOMY Family History [...] Friends and Family: Not on file Attends [employer] Services: Not on file Active Member of [...] Labs 05/31/24 1139 07/07/24 1714 08/23/24 1150 08/24/24 2141 08/25/24 0426 WBC 5.55 7.55 14.06* 11.24* 9.30 HGB 15.5 15.1 15.3 13.6 13.7 HCT 45.6 43.7 46.0 39.1 39.7 PLT 305 267 301 296 310 Chemistry Recent Labs 05/31/24 1139 07/07/24 1714 08/23/24 1150 08/24/24 2141 08/25/24 0426 NA 139 140 134* 136 134* [...] failure, stones recurrent infection, and need for dedicated intermodal truck driver catheter) CIC, surgical options: TURP, ThuLVP to alleviate the obstruction and attempt improve LUTS and avoid risk of complications from dedicated intermodal truck driver HERRON. Possible adverse events recognized with TURP [...] abx next 24 hrs Lynn Doll MD [facility] 2024-08-24 23:51:33 Medicine History & Physical Date [...] tablet 25 mg, 25 mg, Oral, DAILY, Adela Ward DO ondansetron (ZOFRAN (PF)) injection 4 mg, 4 mg, Slow IV Push, Q6HPRN, Jhony Madden MD [START ON 08/25/2024] piperacillin-tazobactam (ZOSYN) 3.375 g in NaCl 0.9% (NS) 100 mL MINI-BAG, 3.375 g, IV Piggyback, Q8H ABX, Jhony Madden MD [START ON 08/25/2024] rosuvastatin (CRESTOR) tablet 5 mg, 5 mg, Oral, DAILY, Adela Ward DO Sliding Scale Insulin - Lispro (HumaLOG), , Subcutaneous, TID MEALS+HS, Jhony Madden MD, 1 Units at 08/24/242103 Objective: Vitals: Vitals: 08/24/24194608/24/242308 BP: (!) 151/90 105/60 Pulse: 95 92 Resp: 15 18 Temp: 36.9 ?C (98.5 ?F) 37.1 ?C (98.8 ?F) TempSrc: Temporal Artery SpO2: 98% 95% Weight: 70.5 kg (155 lb 6.4 oz) I/O's: No intake or output data in the 24 hours ending 08/24/24 2351 Physical Exam: General: NAD, Alert, lying in [...] of comfort: N/A Code Status: Full [place] SALES FORECAST ANALYST was verified Disposition: Admit for IV ABX, plan OR in AM [employer] EMERGENCY PHYSICIAN STAFF [facility] 2024-07-07 16:49:31 XpertMD History & Physical DATE: 07/07/2024 SERVICE: Internal Medicine CHIEF COMPLAINT: Dizziness HISTORY OF PRESENT ILLNESS Maximus Sheehan is a 68 year old male with history of subdural hematoma status postcraniotomy in 2021 complicated by stroke in the past now sent over to [facility] ED from neurology clinic with worsening of dizziness with right arm numbness. Patient sent over for possible neurovascular imaging. Patient denies any chest pain/shortness of breath/palpitations/headac hes. Patient appears in no acute distress. ALLERGIES [...] 03/22/2024 Surgeon: Ron Hoover MD; Location: [facility] CORONARY ARTERY BYPASS GRAFT CRANIOTOMY PAST SOCIAL [...] regimen -Check a.m. labs -Supportive care Anita Arroyo DO FM-ADULT MEDICINE STAFF [facility] 2024-03-22 06:11:17 Interval H&P Chief complaint: Carotid stenosis, symptomatic I met the patient in the [place] area. He confirmed he presented for scheduled [...] for planned R carotid endarterectomy . Сергей Hunt MD PGY- 1 General Surgery Associated attestation - [...] of stroke. Considered asymptomatic at this point. Risks/benefits/alternative s discussed with patient and agrees to proceed [...] hemorrhage. He was treated initially in the [facility] and then was apparently transferred to [place] for further care. He reports that testing [...] endarterectomy in the near near future at [place]. CAROLYN-SURGERY [facility] - Health Procedure Notes Date/Time Note Provider Source 2025-02-13 15:23:06 Left Heart Cath/Coronary Angiography/SVG and BURKETT angiogram/PCI of the SVG to OM1 with 3.5x16 Synergy LEANDRA Maximus Sheehan 3:24 PM Attending faculty: Riley Granados MD Fellow: Dr Butler/Dr Dotson Referring Physician: Edil Kraft MD Procedures Performed: Left Heart Cath/Coronary Angiography/SVG and BURKETT angiogram PCI of the SVG to OM1 with 3.5x16 Synergy LEANDRA Indication/Diagnosis: ACS ([place]/NSTEMI) 69 year old male with h/o CAD s/p 3v CABG (2013, BURKETT to LAD SVG to OM and SVG to RPLB), HFmrEF (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 . Consent: Risks, benefits, alternatives and complications of the procedure discussed with the self, who understood and agreed to proceed. Aseptic technique: Chlorprep Local Anesthesia: 1% lidocaine without epinephrine Sedation: Moderate Access site: Arterial: Right femoral artery 4Fr and then upgraded to 6Fr Closure Method: Arterial: R DIGITAL PROJECT MANAGER 6Fr manual compression Sterile dressing: yes Complications: none Procedures: After patient identification/verification, the patient was thereafter transferred to the construction or leak gang laborer table. The access site was prepped and draped in usual sterile fashion. After administering sedation, time out was done. Under ultrasound guidance, using Seldinger technique, the Right femoral artery was accessed and a 4 Fr sheath was introduced into the artery. 4Fr Jl4 to LM selective, then 4Fr JR4 to RCA selective and then 4Fr JR4 to SVg to OM selective, then 4Fr JR4 to L SCA and L SCA angiogram, then 4Fr LYNSEY to the BURKETT to LAD, then 4Fr MP to the LV and after LVEDP 4Fr MP to the SVg to RPLB, then 6Fr RCFA, then 6Fr JR4 guide to SVg to OM, then BMW wire to the SVg to OM, then 3x12 NC FLIGHT KITCHEN MANAGER then 3.5x16 Synergy LEANDRA to the Svg to OM, r DIGITAL PROJECT MANAGER sutured into place (heparin, brilinta load aggrastat load only) The attending physician was present throughout the procedure and provided the highest level of supervision. Findings: Coronary dominance: right Left main: diffuse 50% LAD: pLAD 50%, mLAD 100% HOOP FLARING MACHINE OPERATOR, D1 medium size 60%, S1 medium size 90% LCX: pLCx 100% HOOP FLARING MACHINE OPERATOR with microchannel RCA: dominant vessel severe calcification tortuous, pRCA mild LI, mRCA 70%, dRCA mild LI, RPDA 40%, RPLB1 competitive flow from patent SVG to RPLB -L SCA patent -BURKETT to mLAD patent, mLAD distal to the BURKETT touchdown focal 70% -SVG to OM1 proximal 70-80% hazy (PCI done with 3.5x16 Synergy LEANDRA, post 0%, JING III flow), Om1 mild LI -SVG to RPLB patent, RPLB mild LI retrograde fills the dRCA with RPLB retrograde has 80% stenosis LVEDP: 12 mmHg Post-Procedure Sedation Addendum Immediately prior to start of sedation, the patient was evaluated and there was no change from the pre-procedure evaluation. I was present and directed medical care. The patient underwent moderate sedation for the procedure. The medications administered were recorded in the MAR; oxygenation, ventilation and circulation were monitored continuously and were recorded in the EMR. I evaluated the patient after the procedure. The patient was evaluated immediately as recovering from sedation. Complications: none Impression/plan: -Severe catawba CAD with mLAD HOOP FLARING MACHINE OPERATOR, pLCx HOOP FLARING MACHINE OPERATOR, severe mRCA stenosis, severe RPLB stenosis. -Patent BURKETT to LAD with severe catawba dLAD stenosis, severe SVG to OM1 stenosis (likely cause of unstable angina), patent SVG to RPLB. -PCI of the SVG to Om1 done with Synergy LEANDRA. Recommend staged PCI of the BURKETT to mLAD (catawba dLAD PCI through BURKETT). May consider FFR guided PCI of the mRCA. -Aggressive medical rx for CAD. Aspirin 81 mg once daily for life. Brilinta 180 mg oral given in construction or leak gang laborer, continue brilinta 90 mg bid for at least 12 months. -Aggrastat bolus only during PCI. -d/w pt in detail, all questions answered. F/u with Dr Fink as planned. PLAN STAGED PCI. Start cardiac rehab after the staged PCI is done. Riley Granados MD 02/13/2025 3:24 PM IM-INTERVENTIONAL CARDIOLOGY STAFF [facility] 2024-08-25 07:44:28 Full Operative Note Patient name: Maximus Sheehan Number: [id number] Date of operation: 08/24/2024 - 08/25/2024 Faculty surgeon: Lynn Doll Pre-operative diagnosis: BPH with LUTS, chronic urine retention , CIC , hematuria, bacterial colonization.. CT prostate volume 110 cc Post-operative diagnosis: BPH with LUTS Operation performed: Transurethral Laser Enucleation of the Prostate (CPT - 80065) Findings: Normal urethra and bladder mucosa. No [...] from 18 to 30 Fr sequentially with Esmeralda urethral sounds. A resectoscope with a visual [...] Thursday08/26/2024 at 4 AM Lynn Doll MD Critical access hospital Notes Date/Time Note Provider Source 2025-06-19 11:17:09 Prescription sent. Critical [facility] hospital 2025-06-19 10:58:33 Images from the original note were not included. Lynne Christiansen [facility] 2025-06-19 10:56:23 Pt called back and states he needs [place] for insulin injections Cali Mata [facility] 2025-06-19 10:41:18 Attempted to contact patient for clarification. Is patient needing lancets to check his blood sugar, or needles for insulin injections. Critical access hospital 2025-06-19 10:34:13 Copied from [facility] #[id number]. Topic: Clinical - Order >> Jun 19, 2025 10:32 AM Patient Diabetes Nurse wrote: Maximus Sheehan (69 year old male) is calling to request refill(s) for Pen needles. Patient called stating he has 34 days of pen needles left and [facility] Please send [facility]s) to: [facility]/pharmacy #[id number] - [place], [place] - [facility] [address] AT [address] [address] Thank you! Moira Vallecillo [facility] 2025-06-16 12:40:31 Images from the original note were not included. Requested Renewals dulaglutide (TRULICITY) 1.5 mg/0.5 mL PnIj Sig: Inject 1 pen under the skin weekly. Disp: Not specified Refills: Start: 06/16/2025 Class: eRX Non-formulary Last ordered: 9 months ago (08/29/2024) by Adwolf Doctor Unassigned Endocrinology: Diabetes - Insulins Nazywp0506/16/2025 11:47 AM Protocol Details Manual review: Staff refilling for [facility], Cr lab not required to refill Cr in normal range and within 360 days Valid encounter within last 12 months HBA1C within 180 days To be filled at: [facility]/pharmacy #[id number] - [place], [place] - [address] KARINA 02-21-2024 NOV 07-24-2025 Marianela Calderon MA [facility] 2025-06-16 11:50:20 Images from the original note were not included. Lynne Christiansen [facility] 2025-05-08 17:03:32 1. Coronary artery disease of bypass graft of catawba heart with stable angina pectoris Crestor denied - atorvastatin 20 mg tablet; Take 1 tablet by mouth at bedtime. Dispense: 90 tablet; Refill: 0 [facility] 2025-04-20 16:34:34 Images from the original note were not included. Refill request refilled per ambulatory refill guidelines. Notes: rosuvastatin 5 mg CpSP Sig: Take 5 mg by mouth every evening. Disp: 90 capsule Refills: 1 Start: 04/20/2025 Class: eRX Non-formulary For: Coronary artery disease of bypass graft of catawba heart with stable angina pectoris Last ordered: 5 months ago (11/21/2024) by Marcel Toth MD Cardiovascular: Antilipid - HMG-CoA Reductase Inhibitors Henbnz8304/20/2025 04:18 PM Protocol Details Valid encounter within last 12 months Total Cholesterol within 360 days LDL within 360 days HDL within 360 days Triglycerides within 360 days AST in normal range and within 360 days ALT in normal range and within 360 days To be filled at: [facility]/pharmacy #[id number] AT [facility] Last Refilled: 01/2025 Recent Visits Date Type Provider Dept 04/19/25 Office Visit Marcel Toth MD [facility] Family Medicine 02/20/25 Office Visit Marcel Toth MD [facility] Medicine 02/06/25 Office Visit Marcel Toth MD [facility] Medicine 11/07/24 Office Visit Marcel Toth MD [facility] Medicine 08/29/24 Office Visit Marcel Toth MD [facility] Medicine 08/23/24 Office Visit Marcel Toth MD [facility] Medicine 07/25/24 Office Visit Marcel Toth MD [facility] 06/13/24 Office Visit Marcel Toth MD [facility] 05/26/24 Office Visit Marcel Toth MD [facility] 05/26/24 Office Visit Marcel Toth MD [facility] Showing recent visits within past 540 days with a meds authorizing provider and meeting all other requirements Future Appointments Date Type Provider Dept 07/24/25 Appointment Marcel Toth MD [facility] Showing future appointments within next 150 days with a meds authorizing provider and meeting all other requirements Pat Garcia MA [facility] 2025-04-18 14:54:20 Called and spoke with patient to offer a f/u appt. Per patient he did not have a good experience and did not want an appt. Apologized and ended the call. Madie Dye LVN [facility] 2025-04-11 08:36:00 Please make an appt with Dr. Granados. I have met him and reassured him already. [facility] 2025-04-11 08:30:09 Please give the option for the pt to f/u with me or Dr Fink in clinic so I can discuss with him the options of care and how ti improve his experience with heart cath that is needed. IM-INTERVENTIONAL CARDIOLOGY STAFF [facility] 2025-04-03 09:51:[address] Granados. Madie Dye LVN [facility] 2025-04-03 09:08:23 Pt does not want to have the procedure done. He states he is still sick. he said that he had a cath done at [facility] and it was horrible. Does not want to ever get a heart procedure done in the [place]. He has left cancelling the procedure several times. Romario Marques [facility] 2025-03-30 12:53:30 Problem: Skin integrity Impaired (Risk or Actual) Goal: Prevention of new skin breakdown Outcome: Progressing as expected Problem: Falls, Risk of Goal: Absence of falls Outcome: Progressing as expected Problem: Bleeding, Risk of Goal: Absence of impaired coagulation signs and symptoms Outcome: Progressing as expected Goal: Absence of active bleeding Outcome: Progressing as expected Problem: Cardiac Output - Decreased Goal: Absence of signs and symptoms of decreased cardiac output Outcome: Progressing as expected Problem: Pain Goal: Control of pain at or below patient's documented comfort goal Outcome: Progressing as expected Goal: Reduction in pain sensation Outcome: Progressing as expected Problem: Tissue Perfusion, Cardiopulmonary - Altered Goal: Circulatory function within specified parameters Outcome: Progressing as expected Karla Ferrera RN [facility] 2025-03-30 05:43:37 Problem: Skin integrity Impaired (Risk or Actual) Goal: Prevention of new skin breakdown Outcome: Progressing as expected Tito Lopez RN [facility] 2025-03-29 16:25:08 Problem: Skin integrity Impaired (Risk or Actual) Goal: Prevention of new skin breakdown Outcome: Progressing as expected Problem: Falls, Risk of Goal: Absence of falls Outcome: Progressing as expected Problem: Bleeding, Risk of Goal: Absence of impaired coagulation signs and symptoms Outcome: Progressing as expected Goal: Absence of active bleeding Outcome: Progressing as expected Problem: Cardiac Output - Decreased Goal: Absence of signs and symptoms of decreased cardiac output Outcome: Progressing as expected Problem: Pain Goal: Control of pain at or below patient's documented comfort goal Outcome: Progressing as expected Goal: Reduction in pain sensation Outcome: Progressing as expected Problem: Tissue Perfusion, Cardiopulmonary - Altered Goal: Circulatory function within specified parameters Outcome: Progressing as expected Gail Burns RN [facility] 2025-03-29 03:50:53 Problem: Skin integrity Impaired (Risk or Actual) Goal: Prevention of new skin breakdown 03/29/2025 0350 by Tito Lopez RN Outcome: Progressing as expected 03/28/20251941 by Tito Lopez RN Outcome: Progressing as expected Critical [facility] hospital 2025-03-28 19:42:24 Problem: Skin integrity Impaired (Risk or Actual) Goal: Prevention of new skin breakdown 03/28/20251941 by Tito Lopez RN Outcome: Progressing as expected 03/28/2025619 by Tito Lopez RN Outcome: Progressing as expected Critical access hospital 2025-03-28 10:35:20 Problem: Skin integrity Impaired (Risk or Actual) Goal: Prevention of new skin breakdown Outcome: Progressing as expected Problem: Falls, Risk of Goal: Absence of falls Outcome: Progressing as expected Problem: Bleeding, Risk of Goal: Absence of impaired coagulation signs and symptoms Outcome: Progressing as expected Goal: Absence of active bleeding Outcome: Progressing as expected Problem: Cardiac Output - Decreased Goal: Absence of signs and symptoms of decreased cardiac output Outcome: Progressing as expected Problem: Pain Goal: Control of pain at or below patient's documented comfort goal Outcome: Progressing as expected Goal: Reduction in pain sensation Outcome: Progressing as expected Problem: Tissue Perfusion, Cardiopulmonary - Altered Goal: Circulatory function within specified parameters Outcome: Progressing as expected [facility] Cristina Leach RN [facility] 2025-03-28 06:20:09 Problem: Skin integrity Impaired (Risk or Actual) Goal: Prevention of new skin breakdown Outcome: Progressing as expected Critical access hospital 2025-03-27 13:17:07 Spoke with patient and informed him of Dr. Fink's note. Patient states that he has restless leg syndrome and the doctor wouldn't give him anything for it and told him "to stop moving." Patient states "I guess I won't get it done" and ended the call. Sarah Guerra RN [facility] 2025-03-27 12:26:22 Maximus Sheehan is a 69 year old male Patient returning nurse call, please advise. Lynn Gaston [facility] 2025-03-27 12:16:04 I reviewed records and I agree with procedures. [facility] 2025-03-27 11:49:14 Attempted to call patient back. No answer, left voicemail advising patient to call back if he is still having concerns. Patient currently admitted in [facility]. Routing to Dr. Fink as FYI [facility] 2025-03-27 09:59:51 Problem: Skin integrity Impaired (Risk or Actual) Goal: Prevention of new skin breakdown Outcome: Progressing as expected Problem: Falls, Risk of Goal: Absence of falls Outcome: Progressing as expected Problem: Bleeding, Risk of Goal: Absence of impaired coagulation signs and symptoms Outcome: Progressing as expected Goal: Absence of active bleeding Outcome: Progressing as expected Problem: Cardiac Output - Decreased Goal: Absence of signs and symptoms of decreased cardiac output Outcome: Progressing as expected Problem: Pain Goal: Control of pain at or below patient's documented comfort goal Outcome: Progressing as expected Goal: Reduction in pain sensation Outcome: Progressing as expected Problem: Tissue Perfusion, Cardiopulmonary - Altered Goal: Circulatory function within specified parameters Outcome: Progressing as expected Sandip Means RN [facility] 2025-03-27 08:06:12 Maximus Sheehan is a 69 year old male calling, stated he is currently admitted at [facility] and they want to perform a surgery. Patient requesting MD Fink to call surgeon today or he won't be doing it. [phone] Yarely Fontana [facility] 2025-03-27 05:47:10 Problem: Skin integrity Impaired (Risk or Actual) Goal: Prevention of new skin breakdown 03/27/2025546 by Pat Matta RN Outcome: Progressing as expected 03/27/202546 by Pat Matta RN Outcome: Progressing as expected Problem: Falls, Risk of Goal: Absence of falls 03/27/2025546 by Pat Matta RN Outcome: Progressing as expected 03/27/2025 0546 by Pat Matta RN Outcome: Progressing as expected Problem: Bleeding, Risk of Goal: Absence of impaired coagulation signs and symptoms 03/27/202547 by Pat Matta RN Outcome: Progressing as expected 03/27/202546 by Pat Matta RN Outcome: Progressing as expected Goal: Absence of active bleeding 03/27/2025 0547 by Pat Matta RN Outcome: Progressing as expected 03/27/2025 0546 by Pat Matta RN Outcome: Progressing as expected Problem: Cardiac Output - Decreased Goal: Absence of signs and symptoms of decreased cardiac output 03/27/2025 0547 by Pat Matta RN Outcome: Progressing as expected 03/27/202546 by Pat Matta RN Outcome: Progressing as expected Problem: Pain Goal: Control of pain at or below patient's documented comfort goal 03/27/2025 0547 by Pat Matta RN Outcome: Progressing as expected 03/27/2025 0546 by Pat Matta RN Outcome: Progressing as expected Goal: Reduction in pain sensation 03/27/2025 0547 by Pat Matta, KERRY Outcome: Progressing as expected 03/27/2025 0546 by Pat Matta RN Outcome: Progressing as expected Problem: Tissue Perfusion, Cardiopulmonary - Altered Goal: Circulatory function within specified parameters 03/27/2025 0547 by Pat Matta RN Outcome: Progressing as expected 03/27/2025 0546 by Pat Matta RN Outcome: Progressing as expected T [facility] [employer] 2025-03-24 11:21:04 Elaine with [facility] is calling to request refill of Metformin for Maximus Sheehan is a 69 year old male T [facility] [employer] 2025-03-24 11:11:07 Maximus Sheehan is a 69 year old male requests future refills of Metformin to be for 90 day supply as opposed to 45 day supply Please advise [phone] (home) [facility]/pharmacy #[id number] - [address] AT [place] [address] [facility] [employer] 2025-03-22 07:58:57 Pharmacy requesting a 90 day supply. [facility] 2025-03-13 14:53:48 Contacted patient and advise the following per Dr. Lewis Patient on rosuvastatin and ezetimibe Recent Labs 02/06/25 1205 CHOL 166 LDL 103 HDL 51 TRIG 61 Can increase the rosuvastatin dose 3rd medication for cholesterol, not needed to minimize risk for polypharmacy Patient understood and had nu further questions. Patient requested to schedule an appointment with Dr. Lewis, appointment scheduled 04-19-2025 at 1 pm. Marianela Calderon MA [facility] 2025-03-13 14:23:44 Patient on rosuvastatin and ezetimibe Recent Labs 02/06/25 1205 CHOL 166 LDL 103 HDL 51 TRIG 61 Can increase the rosuvastatin dose 3rd medication for cholesterol, not needed to minimize risk for polypharmacy [facility] 2025-03-13 11:17:04 Ordering provider Natanael Burkett. Please send medication Evolocumab to pharmacy to complete PA by ordering provider, unable to complete PA if ordering provider is not within our department. Routing to provider to send medication. Marianela Calderon MA [facility] 2025-03-13 10:49:41 Maryellen Romero is calling to complete PA Repatha 140 mg Clinical question, and form has been faxed to be filled out [phone] Ref [id number] Lu Burleson [facility] 2025-02-22 16:33:[address] Fink to send rx for Ntg to pt pharmacy. Rx sent Katiuska Mott RN [facility] 2025-02-22 16:11:14 Maximus Sheehan is a 69 year old male Pt called to check on the prescription for Nitro that Dr Fink said he could send in for the pt today at . Pt states he is having a difficult time, if this could be sent today. [facility]/pharmacy #[id number] - [place], [place] - [address] AT [facility] Lynda Finley [facility] 2025-02-20 17:24:33 Pt notified. Michelle Rust RN [facility] 2025-02-20 16:06:31 Refill sent [facility] 2025-02-20 13:54:40 Pt requesting that rx for tamsulosin be updated to indicate that he is taking it bid. Please advise. Michelle Rust RN [facility] 2025-02-20 13:20:04 Pt came in requesting a refill on Tamsulosin, asked that it can be changed to 2 capsules per day per Dr Doll. Lou Bhatti [facility] 2025-02-16 16:52:20 Lab orders in. [facility] 2025-02-16 16:11:40 Called patient to schedule PCI-Atherectomy w Stent. Patient agreed to have procedure on 04/10/25 - Labs 04/07/25. Fanny Frazier [facility] 2025-02-15 16:50:10 Spoke with patient and instructions given. Verbalized understanding and agreed. Madie Dye LVN [facility] 2025-02-15 10:54:21 aMximus Sheehan is a 69 year old male Pt is calling for instructions on the aftercare on pts site where they did the cath procedure at. Please advise. Piedad Murdock [facility] 2025-02-14 16:30:01 Images from the original note were not included. CARE MANAGEMENT Care Coordinators/Social Workers/CM Specialists/Utilization Review/Patient Placement & Transfer Center 02/14/2025 4:30 PM Care Management Discharge Disposition Note (DCDN) 5-2-1 Interventions: Disease specific education, Teach back, Follow-up phone calls, Follow-up appointments, Clear discharge plan 5-2-1 Providers: Physician, Communications Project Lead/Retail Director 5-2-1 Patient Capacity Improvements: Avoidance of adverse events/readmission Discussed with patient/patient s family involved in decision making: Patient or family caregiver understands, and agrees with discharge plan Patient's family or support contact: Omar Sheehan (sibling) [phone] Discharge Plan for ongoing care and services: Home/Caregiver Home Discharge Location: Discharge Disposition (for note) - 02/13/25 1357 Home/Caregiver address [address] [place] [address] Is this an ACO Patient? No Other Living arrangements: [facility] [address] [place], [place] [id number] Transportation: Private Vehicle (Dwayne Stoll, friend [phone]) Discharge Medications Will the patient be able to obtain his medications? Yes Does the patient have transportation to to obtain the prescription medications? [place] Expected discharge date: 02/14/25 Time: 1630 Name of RN informed of discharge: Keyonna PAYNE Additional Information: n/a Post-Acute Care Transition Education: Post-Acute Care Transition Education Completed: Yes Name and Relationship of Person Educated: Patient Type of Post-Acute Care Service Education Complete: Home/Caregiver/Home;Provider CM/SW Name: Elham Gupta RN The following information has been provided to the facility noted above: reason for the patient discharge or transfer; patient s physical and psychosocial status; summary of care, treatment, services provided to patient; and the patient progress toward goals. Elham Gupta RN [facility] 2025-02-14 12:50:53 Problem: Falls, Risk of Goal: Absence of falls 02/14/2025 1250 by Keyonna Pham RN Outcome: Resolved 02/14/2025 1027 by Keyonna Pham RN Outcome: Progressing as expected Problem: Pain Goal: Control of pain at or below patient's documented comfort goal 02/14/2025 1250 by Keyonna Pham RN Outcome: Resolved 02/14/2025 1027 by Keyonna Pham RN Outcome: Progressing as expected Goal: Reduction in pain sensation 02/14/2025 1250 by Keyonna Pham RN Outcome: Resolved 02/14/2025 1027 by Keyonna Pham RN Outcome: Progressing as expected Problem: Bleeding, Risk of Goal: Absence of impaired coagulation signs and symptoms 02/14/2025 1250 by Keyonna Pham RN Outcome: Resolved 02/14/2025 1027 by Keyonna Pham RN Outcome: Progressing as expected Goal: Absence of active bleeding 02/14/2025 1250 by Keyonna Pham RN Outcome: Resolved 02/14/2025 1027 by Keyonna Pham RN Outcome: Progressing as expected Problem: Discharge Planning Goal: Adequate for discharge 02/14/2025 1250 by Keyonna Pham RN Outcome: Resolved 02/14/2025 1027 by Keyonna Pham RN Outcome: Progressing as expected Goal: Effective communication 02/14/2025 1250 by Keyonna Pham RN Outcome: Resolved 02/14/2025 1027 by Keyonna Pham RN Outcome: Progressing as expected Problem: Cardiac Output - Decreased Goal: Absence of signs and symptoms of decreased cardiac output 02/14/2025 1250 by Keyonna Pham RN Outcome: Resolved 02/14/2025 1027 by Keyonna Pham RN Outcome: Progressing as expected Problem: Tissue Perfusion, Cardiopulmonary - Altered Goal: Circulatory function within specified parameters 02/14/2025 1250 by Keyonna Pham RN Outcome: Resolved 02/14/2025 1027 by Keyonna Pham RN Outcome: Progressing as expected Problem: Skin integrity Impaired (Risk or Actual) Goal: Wound healing 02/14/2025 1250 by Keyonna Pham RN Outcome: Resolved 02/14/2025 1027 by Keyonna Pham RN Outcome: Progressing as expected Goal: Prevention of new skin breakdown 02/14/2025 1250 by Keyonna Pham RN Outcome: Resolved 02/14/2025 1027 by Keyonna Pham RN Outcome: Progressing as expected Keyonna Pham RN [facility] 2025-02-14 10:27:35 Problem: Falls, Risk of Goal: Absence of falls Outcome: Progressing as expected Problem: Pain Goal: Control of pain at or below patient's documented comfort goal Outcome: Progressing as expected Goal: Reduction in pain sensation Outcome: Progressing as expected Problem: Bleeding, Risk of Goal: Absence of impaired coagulation signs and symptoms Outcome: Progressing as expected Goal: Absence of active bleeding Outcome: Progressing as expected Problem: Discharge Planning Goal: Adequate for discharge Outcome: Progressing as expected Goal: Effective communication Outcome: Progressing as expected Problem: Cardiac Output - Decreased Goal: Absence of signs and symptoms of decreased cardiac output Outcome: Progressing as expected Problem: Tissue Perfusion, Cardiopulmonary - Altered Goal: Circulatory function within specified parameters Outcome: Progressing as expected Problem: Skin integrity Impaired (Risk or Actual) Goal: Wound healing Outcome: Progressing as expected Goal: Prevention of new skin breakdown Outcome: Progressing as expected [facility] 2025-02-13 23:44:27 Problem: Falls, Risk of Goal: Absence of falls Outcome: Progressing as expected Problem: Pain Goal: Control of pain at or below patient's documented comfort goal Outcome: Progressing as expected Goal: Reduction in pain sensation Outcome: Progressing as expected Problem: Bleeding, Risk of Goal: Absence of impaired coagulation signs and symptoms Outcome: Progressing as expected Goal: Absence of active bleeding Outcome: Progressing as expected Problem: Discharge Planning Goal: Adequate for discharge Outcome: Progressing as expected Goal: Effective communication Outcome: Progressing as expected Problem: Cardiac Output - Decreased Goal: Absence of signs and symptoms of decreased cardiac output Outcome: Progressing as expected Problem: Tissue Perfusion, Cardiopulmonary - Altered Goal: Circulatory function within specified parameters Outcome: Progressing as expected Problem: Skin integrity Impaired (Risk or Actual) Goal: Wound healing Outcome: Progressing as expected Goal: Prevention of new skin breakdown Outcome: Progressing as expected Eric Christian RN [facility] 2025-02-13 17:30:19 Problem: Falls, Risk of Goal: Absence of falls Outcome: Progressing as expected Problem: Pain Goal: Control of pain at or below patient's documented comfort goal Outcome: Progressing as expected Goal: Reduction in pain sensation Outcome: Progressing as expected Problem: Bleeding, Risk of Goal: Absence of impaired coagulation signs and symptoms Outcome: Progressing as expected Goal: Absence of active bleeding Outcome: Progressing as expected Problem: Discharge Planning Goal: Adequate for discharge Outcome: Progressing as expected Goal: Effective communication Outcome: Progressing as expected Problem: Cardiac Output - Decreased Goal: Absence of signs and symptoms of decreased cardiac output Outcome: Progressing as expected Problem: Tissue Perfusion, Cardiopulmonary - Altered Goal: Circulatory function within specified parameters Outcome: Progressing as expected Problem: Skin integrity Impaired (Risk or Actual) Goal: Wound healing Outcome: Progressing as expected Goal: Prevention of new skin breakdown Outcome: Progressing as expected Gail Burns RN [facility] 2025-02-13 17:03:28 Patient to floor with RN. Sheath to right groin c/d/I. Krista Aleman RN [facility] 2025-02-13 05:51:18 Problem: Falls, Risk of Goal: Absence of falls Outcome: Progressing as expected Problem: Pain Goal: Control of pain at or below patient's documented comfort goal Outcome: Progressing as expected Goal: Reduction in pain sensation Outcome: Progressing as expected Problem: Bleeding, Risk of Goal: Absence of impaired coagulation signs and symptoms Outcome: Progressing as expected Goal: Absence of active bleeding Outcome: Progressing as expected Problem: Discharge Planning Goal: Adequate for discharge Outcome: Progressing as expected Goal: Effective communication Outcome: Progressing as expected Problem: Cardiac Output - Decreased Goal: Absence of signs and symptoms of decreased cardiac output Outcome: Progressing as expected Problem: Tissue Perfusion, Cardiopulmonary - Altered Goal: Circulatory function within specified parameters Outcome: Progressing as expected [facility] 2025-02-06 16:32:01 Summary: AMA Went in to [...] I am going home." Karuna Jones RN [facility] 2025-02-06 15:50:50 Problem: Discharge Planning Goal: [...] Absence of falls Outcome: Progressing as expected [facility] 2025-02-06 09:40:00 Addended by: ALLYSON FINK MD on: 02/07/2025 07:46 AM Modules accepted: Orders T [facility] 2025-02-01 08:34:19 JouleX message has been sent. Jose Ramos RN [facility] 2025-01-31 23:33:35 1. Type 2 diabetes mellitus without complication, with long-term current use of insulin Hypoglycemic protocol - insulin lispro (HUMALOG KWIKPEN INSULIN) 100 unit/mL pen injector; inject 5 Units under the skin in the morning and 5 Units at noon and 5 Units in the evening. inject before meals. Dispense: 3 mL; Refill: 3 T [facility] 2025-01-31 16:25:[address] Doll, pt can increase flomax to bid-may have dizzines. Pt may increase CIC to tid. Appt given for next week with Dr Doll. Michelle Rust RN [facility] 2025-01-31 15:59:10 RTC next week , ok to OB [facility] 2025-01-31 15:49:53 Pt had to leave appointment today before being seen. He is requesting to increase flomax to bid. Please advise. PVR in office today 187. [facility] 2025-01-31 13:43:15 Pt was seen in the clinic today and had to leave due to his transportation and has questions about his medication Flomax. Please Assist Joe Mir [facility] 2025-01-31 12:21:40 Routing request to provider to send: insulin lispro, human, (HUMALOG U-100 INSULIN) 100 unit/mL injection In "Pen Form". Jose Ramos RN [facility] 2025-01-31 12:05:31 Maximus Sheehan is a 69 year old male Pt is requesting to speak with a nurse regarding the insulin prescription. Pt only wants the pen version and only has 1 pen left. Elaine Pereira [facility] 2025-01-31 11:46:33 Johanna with [facility] pharmacy called and states that pt informed her that he only gets the pen injections, not the vial. She is requesting a prescription for the pen injection. Please advise. insulin lispro, human, (HUMALOG U-100 INSULIN) 100 unit/mL injection Janie Hardwick [facility] 2025-01-31 08:49:31 Faxed 01/30/25, confirmation received Jazmin Jones MA 01/31/2025 8:50 AM [facility] 2025-01-27 16:03:36 Form placed in provider folder for signature. Jose Ramos RN [facility] 2025-01-26 16:10:19 Addended by: JOSE FINLEY V on: 01/26/2025 04:10 PM Modules accepted: Orders Jose Ramos RN [facility] 2025-01-26 14:30:08 Images from the original note were not included. Cynthia Walker [facility] 2025-01-26 08:55:18 1. Multiple falls - [place]ULTRA-LIGHT ROLLATOR[place] [facility] [place] R55/W19.XXXS/M79.604/R06.02/I5 0.32/I51.7/E11.3511: Use daily for ambulation/fall precaution (brand pending insurance approval) Dispense: 1 Each; Refill: 0 2. Balance problem - Walker (ULTRA-LIGHT ROLLATOR) [facility]; R55/W19.XXXS/M79.604/R06.02/I5 0.32/I51.7/E11.3511: Use daily for ambulation/fall precaution (brand pending insurance approval) Dispense: 1 Each; Refill: 0 3. Dependent on walker for ambulation - [place]ULTRA-LIGHT ROLLATOR[place] [facility] [place] R55/W19.XXXS/M79.604/R06.02/I5 0.32/I51.7/E11.3511: Use daily for ambulation/fall precaution (brand pending insurance approval) Dispense: 1 Each; Refill: 0 faxed to [phone] care of [place] [facility] 2025-01-23 11:33:24 Called pt in regards to colonoscopy results. Pt confirmed name and . Pt verbalizes understanding of results. Ashley Casas MA [facility] 2025-01-15 13:38:23 1. Type 2 diabetes mellitus without complication, with long-term current use of insulin - flash glucose scanning reader (FREESTYLE JOSE 14 DAY READER) Misc; Take 1 Box in the morning and 1 Box in the evening. E11.65: check home blood glucose BID (brand approval by insurance) Dispense: 1 Each; Refill: 11 [facility] 2024-12-28 11:16:[address] Doll and faxed back to [facility]. TRICAL ENGINEERING TECHNOLOGIST Michelle Rust RN [facility] 2024-12-27 11:04:51 [facility] calling to check on status on order form and record request. Please advise. Andrew [facility] 2024-12-26 13:21:09 Images from the original note were not included. Last OV:11/09/24 with Marcel Toth MD Last Refill:08/29/24 prescribed by [facility] Cardio Last Labs Pertaining to Med:11/07/24 Future Appt: Future Appointments Provider Department Dept Phone 12/29/2024 1:00 PM Allyson Fink MD [facility] Cardiology, [facility] [phone] 01/17/2025 4:00 PM Apurva Leonard PT [facility] Physical/Occupational Rehab, [place] [address] 01/23/2025 4:15 PM Abigail Gomes MD [facility] Dermatology, [facility] [phone] 01/31/2025 10:15 AM Lynn Doll MD [facility] Urology, [place] [phone] 02/06/2025 8:20 AM Marcel Toth MD [facility] Adult & Geriatric Primary Care, [place] [address] 08/08/2025 1:00 PM [facility] CLINIC VASCULAR 1 [facility] Echocardiograph/Vascular Lab, [place] [address] 08/24/2025 1:00 PM Ron Hoover MD [facility] Vascular Surgery, [place] [phone] Requested Renewals metFORMIN 500 mg tablet Sig: Take 1 tablet by mouth in the morning and 1 tablet in the evening. Take with meals. Disp: Not specified Refills: Start: 12/26/2024 Class: eRX Non-formulary Last ordered: 3 months ago (08/29/2024) by [facility] Doctor Unassigned Endocrinology: Diabetes - Biguanides [id number]/26/2024 10:29 AM Protocol Details Valid encounter within last 12 months Cr is between 0 and 1.3 and within 360 days HBA1C within 180 days To be filled at: [id number] - [place], [place] - [address] [place] [address] [facility] 2024-12-22 13:45:34 Received forms from [facility] and they were placed into the nurses basket for review. Mir [facility] 2024-12-21 11:15:15 Called patient and discussed Dr Doll's recommendations with pt. Understanding verbalized and he agrees to continue with CIC. Rust RN [facility] 2024-12-21 09:44:14 Patient called and wanted to update medications, now taking tamsulosin. Added to profile and advised patient okay to take morning of procedure. Starks RN [facility] 2024-12-20 17:38:26 Tamsulosin is very unlikely to help in the setting of chronic urine retention and weak bladder I still recommend CIC to avoid complications I sent prescription RTC as scheduled [facility] 2024-12-20 13:31:24 Patient requesting for Flomax as it was recommended by a friend and would prefer not to use catheters. Please advise. Andrew [facility] 2024-12-19 17:20:40 Images from the original note were not included. Your upcoming procedure is at [facility] on 12/28/24. The address is [address] [place] [address], [phone].The nursing staff at [facility] will call you the workday before your [...] voiced no further questions at this time. [facility] 2024-12-14 08:19:12 Spoke with patient and informed medication has been sent to pharmacy. Calderon MA [facility] 2024-12-13 19:19:17 1. Coronary artery disease of bypass graft of [place] heart with stable angina pectoris - metoprolol succinate XL 25 mg 24 hr tablet; Take 1 tablet by mouth in the morning. Dispense: 90 tablet; Refill: 2 2. HFrEF (heart failure with reduced ejection fraction) - metoprolol succinate XL 25 mg 24 hr tablet; Take 1 tablet by mouth in the morning. Dispense: 90 tablet; Refill: 2 [facility] 2024-12-13 12:57:05 Pt is following up on below phone encounter and send script too [facility] in [place]. metoprolol succinate XL 25 mg 24 hr tablet TRICAL ENGINEERING TECHNOLOGIST Delores Flores [facility] 2024-12-13 11:45:09 Refill request for metoprolol received. Refill sent to pharmacy of choice. Patient is compliant as per [facility] Cardiology Protocol. TRICAL ENGINEERING TECHNOLOGIST Franklin Preston MA [facility] 2024-12-12 10:41:08 Per chart review Metoprolol has not been filled by our office, routing request to provider for review. Disp Refills Start End ROGER metoprolol succinate XL 25 mg 24 hr tablet -- -- 08/26/2024 -- -- Sig: Take 1 tablet by mouth every morning. Class: Historical Med Route: Oral Order: [id number] Date/Time Signed: 08/29/2024 14:46 Recent Visits Date Type Provider Dept 11/07/24 Office Visit Marcel Toth MD [facility] 08/29/24 Office Visit Marcel Toth MD [facility] 08/23/24 Office Visit Marcel Toth MD [facility] 07/25/24 Office Visit Marcel Toth MD [facility] 06/13/24 Office Visit Marcel Toth MD [facility] 05/26/24 Office Visit Marcel Toth MD [facility] 05/26/24 Office Visit Marcel Toth MD [facility] 03/29/24 Office Visit Pat Ochoa FNP [facility] 03/03/24 Office Visit Pat Ochao FNP [facility] 02/25/24 Office Visit Pat Ochoa FNP [facility] Showing recent visits within past 540 days with a meds authorizing provider and meeting all other requirements Future Appointments Date Type Provider Dept 02/06/25 Appointment Marcel Toth MD [facility] Family Medicine Showing future appointments within next 150 days with a meds authorizing provider and meeting all other requirements TRICAL ENGINEERING TECHNOLOGIST Jose Ramos RN [facility] 2024-12-12 10:12:36 Maximus Sheehan is a 69 year old male Pt calling in stating he lost his med. PT req for 10 day supply to hold him over. metoprolol succinate XL 25 mg 24 hr tablet [facility] [address] [place] [address] [76] Ochoa [facility] 2024-11-21 14:25:44 Images from the original note were not included. Requested Renewals rosuvastatin 5 mg CpSP Sig: Take 5 mg by mouth every evening. Disp: Not specified Refills: Start: 11/21/2024 Class: eRX Non-formulary Last ordered: 2 months ago (08/29/2024) by Adwolf Doctor Unassigned Cardiovascular: Antilipid - HMG-CoA Reductase Inhibitors [id number]/21/2024 12:08 PM Protocol Details Valid encounter within last 12 months Total Cholesterol within 360 days LDL within 360 days HDL within 360 days Triglycerides within 360 days AST in normal range and within 360 days ALT in normal range and within 360 days To be [facility] at: [id number] 11-07-2024 NOV 02-06-2025 TRICAL ENGINEERING TECHNOLOGIST Marianela Calderon MA [facility] 2024-11-16 18:13:57 Pt discharged with diagnosis of acute cystitis with hematuria, dysuria, and malaise. Printed and verbal instructions reviewed with and given to pt. Prescriptions given x 2. pt verbalized understanding of teaching and recommended follow-up. Denies questions or concerns at this time. Pt ambulatory at discharge. Appears in no apparent distress. No ataxia noted. TRICAL ENGINEERING TECHNOLOGIST Estee Mccord RN [facility] 2024-11-16 14:14:42 Pt. Reports he noticed mild, light blood in urine since last night with mild burning, with dizziness & general malaise x2 days; pt. Reports hx of UTIs; pt. Reports having prostate sx on 08/25/24; denies diarrhea TRICAL ENGINEERING TECHNOLOGIST Nicki Jones RN [facility] 2024-11-11 13:48:43 moderate cardiac risk. Ok to hold aspirin if absolutely necessary. [facility] 2024-11-11 09:05:30 The following patient is scheduled for colonoscopy with TBD at [facility] Surgery Department. The procedure is currently [...] [facility] Sahu RN [facility] 2024-11-09 11:28:08 Called patient and informed Jazmin Jones MA 11/09/2024 11:28 AM [facility] 2024-11-09 10:56:37 1. Type 2 diabetes mellitus [...] Other (hyperglycemia). Dispense: 10 mL; Refill: 1 [facility] 2024-11-09 09:38:28 Routed to the provider to review and fill Jazmin Jones MA 11/09/2024 9:38 AM [facility] 2024-11-09 09:27:35 Patient is requesting a prescription of insulin glargine,hum.rec.anlog (LANTUS SOLOSTAR U-100 INSULIN SC). Patient is out and needs medication DAVID Martell [facility] 2024-11-09 08:58:36 Images from the original [...] ROBYN Rollins Last refill: 05/23/2024 Rx #: [id number] Endocrinology: Diabetes - Insulins Mcsxzd1311/09/2024 08:54 AM Protocol Details Manual review: Staff refilling for [facility], Cr lab not required to refill Valid encounter within last 12 months HBA1C within 180 days Cr in normal range and within 360 days To be filled at: [id number] - [place], [place] - [facility] Last office note: 11-07-2024 DM II - [...] dizziness when BG is low or high. TRICAL ENGINEERING TECHNOLOGIST Marianela Calderon MA [facility] 2024-11-07 09:00:00 Images from the original note were not included. Venipuncture collection performed by clean technique on the right anticubitus. Total of 1 attempts were made. Slight pressure and a bandage/dressing were applied to the site(s). The patient experienced no complications. The following specimens were processed according to instructions and sent to [facility] laboratories per lab order on 11/07/2024: LT BLUE SST 1 RED LAV 2 PPT DK GREEN (LiHep) DK GREEN (SodH) MENON DK BLUE (K2) DK BLUE (S) ACD Blood Culture NIPT/NTD Patient has been identified by and name and was provided with cup, antiseptic towelette, and clean catch instructions. 1 urine specimen(s) sent. Unpreserved 1 Urine Culture Aptima tube Other urine [facility] 2024-10-11 11:16:26 Notes: Colon Screening - Chip Martines MD. Per ambulatory protocol referral has been sent. Recent Visits Date Type Provider Dept 08/29/24 Office Visit Marcel Toth MD [facility] 08/23/24 Office Visit Marcel Toth MD [facility] 07/25/24 Office Visit Marcel Toth MD [facility] 06/13/24 Office Visit Marcel Toth MD [facility] 05/26/24 Office Visit Marcel Toth MD [facility] 05/26/24 Office Visit Marcel Toth MD [facility] 03/29/24 Office Visit Pat Ochoa [facility] 03/03/24 Office Visit Pat Ochoa SLIDE FORMING MACHINE TENDER [facility] 02/25/24 Office Visit Pat Ochoa [facility] 12/11/23 Office Visit Pat Ochoa [facility] Showing recent visits within past 540 days with a meds authorizing provider and meeting all other requirements Future Appointments Date Type Provider Dept 11/07/24 Appointment Marcel Toth MD [facility] Showing future appointments within next 150 days with a meds authorizing provider and meeting all other requirements [facility] 2024-10-11 11:00:19 Pt is scheduled 10/28 and an auth referral is needed. Please Assist Mir [facility] 2024-10-07 17:27:16 Patient states that he [...] recommendations. KANIKA MORELAND RN 10/07/2024 5:39 PM TRICAL ENGINEERING TECHNOLOGIST Kanika Moreland RN [facility] 2024-10-06 11:11:38 Patient called and stated that he started having issues with urination, he stated that he is fine while he is sitting down, as soon as he gets up he starts leaking and has to go immediately to the bathroom. Patient has several questions and concerns please call to [phone]. Harris [facility] 2024-09-19 13:51:00 Regarding: No longer wants to live ----- Message from Patient Diabetes Nurse sent at 09/19/2024 1:51 PM ELECTRICAL ENGINEERING TECHNOLOGIST ----- No longer wants to live TRICAL ENGINEERING TECHNOLOGIST Latosha Roberts RN [facility] 2024-09-19 13:51:00 Reason for Disposition General information question, no triage required and triager able to answer question Protocols used: Information Only Call - No [id number] Patient calls telling PAS that he wants [...] asks patient about his emergency contact, Leesa Marilin and 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 [facility] 2024-09-19 13:51:00 Called patient 09/20/24 10:00 Am Noted he doing well and just having challenges with the home health providers and challenges with the impaired adls. Noted he is taking oct and nov off. Having challenges with his chronic problems and his osorio Supportive counselling given Denies Si/Hi/AVH 1. Impaired mobility and ADLs - Consult/Referral Retail Director [facility] 2024-09-19 13:51:00 Addended by: MARCEL BEST on: 09/20/2024 10:13 AM Modules accepted: Orders [facility] 2024-09-15 13:51:26 Images from the original note were not included. Medical records received [facility] placed in Dr. Lewis folder for review. LD [facility] Cnythia Walker [facility] 2024-09-13 13:40:47 Referral to general cardiology placed for patient. [facility] 2024-09-13 12:21:55 1. Multiple falls - Miscellaneous [...] as directed Dispense: 1 Kit; Refill: 0 [facility] 2024-09-13 12:19:30 Maximus Sheehan is a 68 year old male Patient is scheduled on 10/[address] Fink for an appointment and is needing a referral on file; please advise and assist with request. Thank you! Rosario Menendez 09/13/2024 12:21 PM TRICAL ENGINEERING TECHNOLOGIST Rosario Menendez [facility] 2024-09-12 09:53:08 Form placed in provider folder for review. TRICAL ENGINEERING TECHNOLOGIST Marianela Calderon MA [facility] 2024-09-12 08:24:50 Images from the original note were not included. Walker [facility] 2024-09-08 15:35:52 Per last OV note medication was discontinued - 09/07/2024. TRICAL ENGINEERING TECHNOLOGIST Jose Ramos RN [facility] 2024-09-08 13:51:44 Maximus Sheehan is a 68 year old male Valerie, nurse with [facility], called to let us know that pt stopped glipizide due to dizziness. Call pt to further discuss. Hardwick [facility] 2024-08-29 09:16:59 Call placed to MACK Tong, Notified will follow pt. Ramos RN [facility] 2024-08-29 07:53:21 yes TRICAL ENGINEERING TECHNOLOGIST [facility] 2024-08-27 10:55:27 Encounter was addressed in additional encounter. Maggy Gross LVN [facility] 2024-08-26 16:45:41 Routing call to provider for review. Jose Ramos RN [facility] 2024-08-26 16:37:03 Alycia with [facility] is wanting to know if Doctor Obi-Nwyamilo will follow patient for home health. Reymundo Martell [facility] 2024-08-26 14:19:05 Please schedule. ANT Priti Baron RN [facility] 2024-08-26 14:02:54 Called patient, he had surgery with Dr. Doll 08/25/24 and was informed to return to clinic Thursday to have catheter removed. Routing message to [facility] to schedule NV for patient to have voiding trail on Thursday. Nisha Aguilera MA [facility] 2024-08-26 13:51:32 The hospital called stating the patient needs a cath removal NV appointment 08/29/24. Please advise. Letty Clement [facility] 2024-08-26 13:32:57 Problem: Falls, Risk of [...] Outcome: Adequate for discharge Gila Dillon RN [facility] 2024-08-25 22:37:01 Problem: Falls, Risk of [...] Progressing as expected Angel Luis Little RN [facility] 2024-08-25 17:49:05 Problem: Falls, Risk of [...] Absence of infection Outcome: Progressing as expected Krista Turcios RN [facility] 2024-08-25 10:40:14 Called patient, admitted for IV abx [facility] 2024-08-24 22:14:45 Problem: Falls, Risk of Goal: Absence of falls Outcome: Progressing as expected Problem: Venous Thromboembolism, (actual or risk of) Goal: Absence of venous thromboembolism (Risk) Outcome: Progressing as expected Problem: Skin integrity Impaired (Risk or Actual) Goal: Prevention of new skin breakdown Outcome: Progressing as expected Kelsi Seals RN [facility] 2024-08-24 20:12:45 AdmissionCare Guideline: Urinary Tract [...] uncertain AdmissionCare documentation entered by: Jhony Madden [facility], 28th edition, Copyright ? 2023 [facility] All Rights Reserved. [id number]:12:45-05:00 Critical access hospital 2024-08-24 16:18:13 Images from the original note were not included. Spoke with patient; he states he saw his pcp regarding this issue and was sent to the ER by his pcp. Pt has is scheduled for surgery with Dr. Doll on 08/25/24. Priti Baron RN [facility] 2024-08-24 08:13:26 Images from the original note were not included. [facility]TA-Discharge Summary report received placed Dr. Lewis folder for review. Cynthia Walker [facility] 2024-08-23 16:45:00 Pt given printed and [...] in no apparent distress. Digna Shore RN [facility] 2024-08-23 14:45:09 Images from the original note were not included. Connie Hoyos RN [facility] 2024-08-23 11:03:14 Pt arrived via for hematuria, sent by provider. Pt has been self cathing and is scheduled for sx on 08/25 for enlarged prostate. Pt has not self cathed since yesterday morning d/t the blood. Quiana Carranza RN [facility] 2024-08-23 10:47:00 [facility] Emergency Department Note Patient Name: Maximus Sheehan Date of : 1955 68 year old male Treatment Room: Room/bed info not found Primary Care Physician: Marcel BeanDorene Patient Escorted by: Self [9] Mode of Arrival: Personal means [1] EMS Treatment Prior to ED Arrival: FLIGHT KITCHEN MANAGER treatment: None Travel and Exposure Screening: Symptoms [...] 03/22/2024 Surgeon: Ron Hoover MD; Location: [facility] CORONARY ARTERY BYPASS GRAFT CRANIOTOMY Review of [...] 0.01 - 0.09 10*3/uL COMP. METABOLIC PANEL (04354) - Abnormal NA 134 (*) 135 - [...] Procedures Cbc with Diff Comp. Metabolic Panel (93861) Urinalysis Urine Culture Orders Placed This Encounter Medications NaCl 0.9% (NS) bolus infusion 500 mL ceFEPIme (MAXIPIME) 2,000 mg in NaCl 0.9% (NS) 100 mL MINI-BAG First Provider Eval: ED Events Date/Time Event User Comments 08/23/24 1053 Medical Screening Begins SANDRO RAMIREZ MD P -- 08/23/24 1053 First Provider Evaluation SANDRO [...] showing Pseudomonas; pt has Rx waiting at [facility] for Cipro which UTI is susceptible to. [...] on file Follow-up: Contact information for follow-up [facility] Urology [address] [place] [address], [address] [facility] [id number] Instructions: As needed Electronically signed by: Sandro Ramirez MD 08/23/24 1605 T [facility] 2024-08-23 10:40:32 Images from the original note were not included. Sarah Guerra RN [facility] 2024-08-22 07:31:47 Maximus Sheehan is a 68 year old male Pt is requesting a call regarding difficulty urinating, now he he also experiencing blood in urine since earlier this morning. Thanks Raegan Israel [facility] 2024-08-21 10:38:57 CT: 1. Small calcifications [...] days of levo post op Daily laxatives Critical access hospital 2024-08-18 13:15:00 Summary: Only urine Images from the original note were not included. Patient has been identified by and name and was provided with cup, antiseptic towelette, and clean catch instructions. 1 urine specimen(s) sent. Unpreserved Urine Culture 1 Aptima tube Other urine T [facility] 2024-08-17 09:42:43 I will have him some ready for him to hop picker. ANT Priti Baron RN [facility] 2024-08-17 09:23:11 Mr. Sheehan is scheduled [...] make arrangement to provide more straight caths? T [facility] 2024-08-16 08:52:52 Order for repeat urine culture Critical access hospital 2024-08-15 17:11:37 Images from the original note [...] will call to schedule appointment as directed. Priti Baron RN [facility] 2024-08-15 17:09:04 Please see other encounter for this patient. Baron RN [facility] 2024-08-15 16:26:21 Pt given printed and [...] in no apparent distress, Yomaira Shipley RN [facility] 2024-08-15 16:23:47 Patient would like to clarify if he can continue using catheters even though he is experiencing infection with antibiotics. Ana Maria Andrew [facility] 2024-08-15 13:41:57 Bladder scanner showed 76mls in bladder. [facility] 2024-08-15 12:54:58 Pt arrives to ED ambulatory w/walker, c/o urinary urgency & hesitancy & now seeing blood today. He states he is supposed to have sx on 08/25 for enlarged prostate. Marianela Walker RN [facility] 2024-08-15 10:46:00 Regardinyr/male - urinating blood ----- Message from Patient Diabetes Nurse sent at 08/15/2024 10:45 AM CDT ----- Maximus Sheehan is a 68 year old male 68yr/male States he started urinating blood about an hour ago and has been urinating every 10 to 15 minutes since then and it is very painful. Latosha Roberts RN [facility] 2024-08-15 10:46:00 Adult Triage Assessment Last [...] try to find a ride to the [facility] but may need to call an ambulance that will take him to [place] but either way he will go to the ED. [facility] 2024-08-15 10:46:00 Routing to provider to advise if he would like to have patient come in for visit. Linda Valles RN Linda Ramos RN [facility] 2024-08-15 10:46:00 Offer RTC NV for PVR and Ucx If retention , update me Thanks [facility] 2024-08-15 10:46:00 Patient notified of results/recommendations, understanding was verbalized via teach back. Patient scheduled NV today 2:30 PM. Patient will call to reschedule if he is unable to find a ride. Maureen Mazariegos RN [facility] 2024-08-11 16:45:[address] Lewis 08/23 10am Cynthia Walker [facility] 2024-08-11 15:17:45 Urine culture sent to lab at this time. Patient to continue ASA per cardiology recommendations. Patient verbalized understanding. Maureen Mazariegos RN [facility] 2024-08-11 14:55:40 Addended by: LYNN DOLL on: 08/11/2024 02:55 PM Modules accepted: Orders T [facility] 2024-08-11 14:48:[address] showed no obvious cancer changes in upper tracts, stable multiple I-IV Atherosclerosis changes Enlarged prostate as per cysto findings I counseled patient about options for treating BPH and natural history if not treated ( bladder atony, voiding dysfunction, renal failure, stones recurrent infection, and need for shelter catheter) CIC, surgical options: TURP, ThuLVP to alleviate the obstruction and attempt improve LUTS and avoid risk of complications from shelter HERRON. Possible adverse events recognized with TURP [...] constipation Follow up with vascular for atherosclerosis [facility] 2024-08-11 14:15:00 Started on oral abx Needs RTC Thursday08/18/2024 to repeat Ucx URO-UROLOGY STAFF [facility] 2024-08-11 14:13:08 Patient would like results of CT scan. Will route to provider for review. Maureen Mazariegos RN [facility] 2024-08-09 09:48:01 Thank you! I have attached this to the appointment. Rema Gomes [facility] 2024-08-08 21:20:18 1. PFO (patent foramen ovale) - Consult/Referral Cardiology 2. Coronary artery disease without angina pectoris, unspecified vessel or lesion type, unspecified whether catawba or transplanted heart - Consult/Referral Cardiology [facility] 2024-08-08 14:17:03 Patient is coming in to see Dr Davison on 08/15/24 for Interventional Cardiology, due to insurance pt is needing a referral. Please assist, thank you. Rema Gomes [facility] 2024-08-08 08:43:45 Images from the original note were not included. Lynne Roach [facility] 2024-08-05 11:54:13 Spoke with patient and answered all questions. Maureen Mazariegos RN [facility] 2024-08-04 14:42:28 Forms signed and faxed, confirmation received Jazmin Jones MA 08/04/2024 2:43 PM [facility] 2024-08-03 16:17:21 Form placed in providers folder for review. Jose Ramos RN [facility] 2024-08-03 15:45:18 Images from the original note were not included. Forms placed in nurse folder. [facility] 2024-08-03 10:37:55 UROLOGY POST-PROCEDURE CALL Procedure: Cysto Physician: Alzweri Are you experiencing any nausea/vomiting? no Are [...] sent with post-op instructions. Sarai Obrien RN [facility] 2024-08-02 16:24:08 Maximus Sheehan is a 68 year old male Patient calling wanting to know if a catheter needs to be done tonight or tomorrow morning. Patient is still sensitive from this morning. Please advise patient. Keely Aaron [facility] 2024-08-02 13:39:52 Called patient and questions answered CAROLYN-VASCULAR SURGERY STAFF [facility] 2024-08-02 13:36:39 Patient notified of results/recommendations, understanding was verbalized via teach back. Maureen Mazariegos RN [facility] 2024-08-02 11:05:54 Can continue aspirin [facility] 2024-08-02 09:38:25 Moderate cardiac risk. Okay to hold aspirin if absolutely necessary. [facility] 2024-08-02 09:27:27 The following patient is scheduled for HoLEP with Lynn Doll at [facility] Surgery Department. The procedure is currently scheduled on TBD and requires Cardiac clearance prior to the procedure. Please submit the following: Note indicating Cardiac clearance risk level 2. Most recent office note date 3. Recent tests (if not accessible in [facility]): Labs, EKG, Echo, etc 4. Information on [...] you, Maureen Mazariegos RN Maureen Mazariegos RN [facility] 2024-07-23 06:27:46 Access Center: [facility] Open Encounter Maintenance Chart Review: Patient was seen in Neurology Clinic on 07/07/2024. Nurse Note: RN closing encounter in [facility] r/t clinical action items completed. Latosha Roberts RN [facility] Access Center Triage Nurse Latosha Roberts RN [facility] 2024-07-22 10:00:00 Images from the original note were not included. Pt here for Angella orders. Patient has been identified by and name and was provided with cup, antiseptic towelette, and clean catch instructions. 2 urine specimen(s) sent. Unpreserved 1 Urine Culture 1 Aptima tube Other urine [facility] 2024-07-14 16:10:[address] Hoover. Kanika Moreland RN [facility] - Health 2024-07-12 16:57:24 TRANSITIONAL CARE MANAGEMENT ASSESSMENT 07/12/2024 Maximus Sheehan [id number] Maximus Sheehan is a 68 year old /White male was admitted on 07/07/24 to [facility] MED SURG 2 N. He was discharged on 07/10/24 with discharge disposition of HR- Routine Discharge. 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%, ICM) PFO w R to L shunt Linked Episodes Type: Episode: Status: Noted: Resolved: Last update: Updated by: TRANSITION OF CARE TCM Active 07/10/2024 07/12/2024 4:54 PM Jayashree Josue RN Comments: TCM Sle-pirr-ob-face outreach documentation: Discharge Assessment Chart Assessed: 07/12/24 [...] contacted you since you've been home?: Yes [facility] [address] [place] [address] F: [phone] Survey - Recognition Is there anything you would like to share about your recent hospitalization, or anyone you would like to recognize?: No Do you have any suggestions for improvement?: No Do you have any other questions or concerns at this time?: No Future Appointments: Future Appointments Provider Department Dept Phone 07/18/2024 2:40 PM Allyson Fink MD [facility] Cardiology, [phone] 07/22/2024 10:00 AM 2, Adc Lab [facility] Clinical Laboratory, [phone] 08/02/2024 8:30 AM Lynn Doll MD [facility] Urology, [place] [phone] 08/15/2024 3:00 PM Roma Davison MD [facility] Cardiology, [place] [phone] 08/30/2024 1:20 PM Marcel Toth MD [facility] Adult & Geriatric Primary Care[phone] 10/04/2024 1:00 PM Allyson Fink MD [facility] Cardiology[phone] 12/29/2024 1:00 PM Allyson Fink MD [facility] Cardiology, [place] [phone] 03/30/2025 1:45 PM Ron Hoover MD [facility] Vascular [place] [phone] Jayashree Josue RN [facility] 2024-07-12 12:08:23 Care Transitions Nurse CM made f/u call to patient post-discharge. No answer, call went to voicemail. CM left discreet message with CM's call back information. CM will try again at a later time. ANETTE Swift, RN, CCRN Communications Project Lead, Transitions of Care [email or web address] 2024-07-09 22:40:58 Problem: Falls, Risk of [...] Outcome: Progressing as expected Keeley Carnes RN [facility] 2024-07-09 12:14:49 Problem: Falls, Risk of [...] Outcome: Progressing as expected Kimberly Lebron RN [facility] 2024-07-09 04:06:50 Problem: Falls, Risk of [...] assistive device appropriately Outcome: Progressing as expected [facility] 2024-07-08 17:30:15 Problem: Falls, Risk of [...] Outcome: Progressing as expected Jane Lua RN [facility] 2024-07-08 13:25:56 Images from the original note were not included. [facility] Clinical Pharmacist Consult Consulting Service: Pharmacy Medication Reconciliation Patient: Maximus Sheehan ([id number]) is a 68 year old male currently [...] High quality RED TEXT INDICATES NOTABLE CHANGES FLIGHT KITCHEN MANAGER Meds List Medication Sig Recommend Justification Comments BD ULTRAFINE III MINI PEN 31 gauge x /16" Ndle USE DIRECTED 4 TIMES A DAY [...] by Lynsey [facility] Contact Information: [facility]/pharmacy #[id number] - [place], [place] - [address] [facility] [address] [place] [id number] [facility] - [address] [place], [place] [address] [facility] [address] Is the patient interested in Gnhr-ry-Wupy? Did not ask Contact performance test architect services? No performance test architect needed. yLnsey Macias 1:19 PM, 07/08/2024 [facility] Department of Pharmacy [facility] Phone: [facility]: [phone] Lynsey Macias [facility] 2024-07-08 08:49:30 Images from the original note were not included. Peer to Peer received from [employer] forms placed in provider basket. Lynne Christiansen [facility] 2024-07-08 06:07:15 Problem: Falls, Risk of [...] assistive device appropriately Outcome: Progressing as expected T [facility] 2024-07-07 19:14:18 Called 2N to give report. KERRY Walden confirms that she has rcv'd the report and has no questions and is ready to rcv this pt. Macie Whitman RN [facility] 2024-07-07 19:01:15 Report sent via fax and tube by KERRY Malik T [facility] 2024-07-07 18:49:28 Report attempted. Helena Soria RN [facility] 2024-07-07 18:46:56 Maximus Sheehan is a 68 year old male presenting to the ED with c/o right sided weakness and numbness that has been present for the last few months. Endorses dizziness for hte last few weeks. Denies CP/SOB/N/V/D. AOX4, NAD. VSS Past Medical History: Diagnosis Date Brain bleed Diabetes mellitus Hypertension Kidney stone [facility] 2024-07-07 15:25:58 Maximus Sheehan is a 68 year old male presenting to the ED today for: R side weakness and numbness that's been going on for months Pt reports dizziness has been going on for a couple weeks. Pt was at an appointment with his CORPORATE SECURITIES RESEARCH ANALYST and was told to come to the [...] mellitus Hypertension Kidney stone Keyonna Max RN [facility] 2024-07-07 15:11:00 [facility] Emergency Department Note Patient Name: Maximus Sheehan Date of : 1955 68 year old male Treatment Room: [place] [address] Primary Care Physician: Marcel Toth Patient Escorted by: Self [9] Mode of Arrival: Personal means [1] EMS Treatment Prior to ED Arrival: FLIGHT KITCHEN MANAGER treatment: None Travel and Exposure Screening: Symptoms [...] Right 03/22/2024 Surgeon: Ron Hoover MD; Location: [facility] CORONARY ARTERY BYPASS GRAFT CRANIOTOMY Review of [...] intracranial abnormality. Preliminary Report Dictated by Resident: Makenna French MD., have reviewed this study and agree [...] 10.6 mg/dL eGFR 113.9 mL/min/1.73m2 LIPID PANEL (15937)(TOTAL CHOLESTEROL, TRIGLYCERIDES, HDL) - Abnormal CHOL 104 [...] CREATININE, CA) TROPONIN I Fasting Lipd Panel (01324)(TOTAL CHOLESTEROL, TRIGLYCERIDES, HDL) POCT Glucose (Age >30 Days) POCT GLUCOSE (AUTOMATED) POCT GLUCOSE (AUTOMATED) POCT GLUCOSE (AUTOMATED) Verifynow Aspirin Test POCT GLUCOSE (AUTOMATED) Consult Inside Sales Administrator - STROKE Patient Consult Neurology - STROKE [...] ED Events Date/Time Event User Comments 07/07/24 151 Medical Screening Begins JUAN CALVILLO MD -- 07/07/241514 First Provider Evaluation JUAN CALVLILO MD -- AdmissionCare Guideline: Stroke (Ischemic) - [...] hours). AdmissionCare documentation entered by: Juan Calvillo [facility], 28th edition, Copyright ? 2023 [facility] [employer] All Rights Reserved. [id number]:17:41-05:00 ED COURSE ED Course as of 07/08/24 1535 [facility] Jul 07, 2024 171 Discussed with neurology CORPORATE SECURITIES RESEARCH ANALYST Silviano, due to complicated CVA history they would like inpatient expedited workup [LM] 1543 EKG time 1523, EKG is normal sinus rhythm, rate of 73, AL is 170, QRS 146, QTc is 473, [...] Drift LIMB ATAXIA: 0 Absent SENSORY: 1 Tts-vd-Oqhrwmrv Sensory Loss BEST LANGUAGE: 0 No Aphasia [...] Drift LIMB ATAXIA: 0 Absent SENSORY: 1 Gnk-cx-Omtdktcr Sensory Loss BEST LANGUAGE: 0 No Aphasia [...] - Observation Condition Stable Comment Treatment Team: [facility] [[id number]] Discharge Medications: Current Discharge Medication List STOP [...] Follow-up: Electronically signed by: Juan Calvillo MD 07/08/241534 Critical access hospital 2024-07-07 15:11:00 AdmissionCare Guideline: Stroke (Ischemic) - [...] hours). AdmissionCare documentation entered by: Juan Calvillo [facility], 28th edition, Copyright ? 2023 [facility] All Rights Reserved. [id number]:17:41-05:00 [facility] 2024-07-06 09:02:03 Pt was given referral for Urology with contact info. Jose Ramos RN [facility] 2024-07-06 08:35:12 CT abdomen and pelvis with intravenous Contrast from [facility] dated 07/01/2020 fall had an impression of asymmetric thickening involving the superior bladder wall. Findings concerning for neoplasm. Mild bilateral hydroureteral nephrosis. No obstructing stones identified. Prostate is enlarged. 1. Hematuria, unspecified type - Consult/Referral Urology: General [facility] 2024-07-05 13:37:02 Referral has been renewed. Cerebrovascular accident (CVA), unspecified mechanism [I63.9] Numbness [R20.0] Balance problem [R26.89] hx of CVA and balance problms . Occassional numbness on the right side [facility] 2024-07-05 11:19:27 Maximus Sheehan is a 68 year old male Pt has a Neurology appointment for stroke on 07/07. Can you please send over a referral so we can obtain auth for this visit? Pt will be seeing April David Thank you Debbie Garcia [facility] 2024-07-05 10:52:32 Patient came in office to drop off final radiology report, disc, and lab work done at [facility]. Placed in provider folder for review. Shefali Marie [facility] 2024-07-04 08:31:36 Received medical records from [facility]. Placed in provider basket for review. Shefali Marie [facility] 2024-07-02 20:40:44 1. Hematuria, unspecified type Please f/u and also get the hospital report - Consult/Referral Urology: General [facility] 2024-07-01 07:57:07 From: Maximus [place] To: Office of Pat Ochoa Sent: 07/01/2024 12:28 AM CDT Subject: Medication Renewal Request Refills have been requested for the following medications: dulaglutide (TRULICITY) 1.5 mg/0.5 mL PnWaqar [Marcel Toth] Preferred pharmacy: [id number] Delivery method: Pickup [facility] 2024-06-29 09:16:49 Referral has been placed and patient will be contacted for scheduling assistance. Edgar Driscoll [facility] 2024-06-29 08:11:09 Maximus Sheehan is a 68 year old male calling to schedule referral for TIA. [phone] (home) Yarely Fontana [facility] 2024-06-23 12:02:58 Patient brought ShelfFlip CD with [address] head & brain, Ct head angio, CT head brain w/o contast, CT neck angio and CT Head angio. Uploaded through [facility] and [employer] library with patient's MRN so they can load into [facility] PACS. Lotus Ward RN [facility] 2024-06-23 11:39:15 Pat is taking it to radiology here for uploading. PN-NEUROLOGY STAFF [facility] 2024-06-22 09:39:47 Addended by: BEBE SEGURA on: 06/22/2024 09:39 AM Modules accepted: Orders [facility] 2024-06-22 09:38:42 Dr. Aguilar, if you are unable to get disc uploaded into [facility], please let me know. I let pt know we would call him to pick it up if needed to take to stroke clinic appt. [facility] 2024-06-22 09:38:02 Updated pt of all per Dr. Aguilar : I looked at his data, and there was question of one artery being narrowed: the vertebral. He needs to be seen in the stroke clinic. I will see if we can get the disk uploaded into the [facility] Pt verbalized understanding of all. [facility] 2024-06-22 08:58:36 I looked at his data, and there was question of one artery being narrowed: the vertebral. He needs to be seen in the stroke clinic. I will see if we can get the disk uploaded into the [facility]. Can you make that consult? Thanks. PN-NEUROLOGY STAFF [facility] 2024-06-20 10:53:04 Noted. Bebe Segura LVN [facility] 2024-06-20 10:40:40 Maximus Sheehan is a 68 year old male Pt states he will not have the disk tomorrow to give . Pt wanted to inform. Kalani Rosales [facility] 2024-06-20 10:23:05 Refill request for metoprolol received. Refill sent to pharmacy of choice. Patient is compliant as per [facility] Cardiology Protocol. Franklin Preston MA [facility] 2024-06-08 08:09:15 See patient is on metformin 500mg 1 tab bid , can increase it to 2 tab bid instead of the glipizide [facility] 2024-06-06 09:28:51 Images from the original [...] ROBYN Rollins Last refill: 04/15/2024 Rx #: [id number] Endocrinology: Diabetes - Insulins [id number]/06/2024 08:29 AM Protocol Details Manual review: Staff refilling for [facility], Cr lab not required to refill Cr in normal range and within 360 days Valid encounter within last 12 months HBA1C within 180 days To be filled at: [facility] #[id number] - [place], [place] - [address] [place] [address] 05-26-2024 NOV 08-30-2024 Marianela Calderon MA [facility] 2024-06-03 09:14:27 FINDINGS: Proximal abdominal aorta [...] and blood pressure and cholesterol is stable [facility] 2024-05-31 13:15:00 Images from the original note were not included. Venipuncture collection performed by clean technique on the right anticubitus. Total of 1 attempts were made. Slight pressure and a bandage/dressing were applied to the site(s). The patient experienced no complications. The following specimens were processed according to instructions and sent to [facility] laboratories per lab order on 05/31/2024: LT BLUE SST 1 RED LAV 2 PPT DK GREEN (LiHep) DK GREEN (SodH) MENON DK BLUE (K2) DK BLUE (S) ACD Blood Culture NIPT/NTD Patient has been identified by and name and was provided with cup, antiseptic towelette, and clean catch instructions. 1 urine specimen(s) sent. Unpreserved 1 Urine Culture Aptima tube Other urine [facility] 2024-05-31 13:15:00 Addended by: MARCEL BEST on: 06/09/2024 12:34 PM Modules accepted: Orders [facility] 2024-05-05 10:49:33 Images from the original note were not included. Scanned in folder and placed in provider basket for review. Lynne Christiansen [facility] 2024-04-29 13:34:10 Noted-Pat Garcia Pat Garcia MA [facility] 2024-04-29 13:02:49 Maximus Sheehan is a 68 year old male and Amaril[facility] with [facility] is calling to notify they will be sending over 2 orders for discharging and readmitting the pt for home Health care. Stated that [facility] has changed their billing policies and they need to readmit pt for care to follow the policies. The orders will not change the pts HH care. Myriam Haney [facility] 2024-04-14 13:27:53 Images from the original note were not included. Requested Renewals dulaglutide (TRULICITY) 1.5 mg/0.5 mL PnIj Sig: inject 1 Pen under the skin weekly. Disp: 12 Pen Refills: 0 Start: 04/14/2024 Class: eRX Non-formulary For: Type 2 diabetes mellitus without complication, with long-term current use of insulin Last ordered: 3 months ago (01/04/2024) by ROBYN Rollins Rx #: [id number] Patient comment: I am out as of today Endocrinology: Diabetes - Insulins [id number]/14/2024 01:16 PM Protocol Details Manual review: Staff refilling for [facility], Cr lab not required to refill Cr in normal range and within 360 days Valid encounter within last 12 months HBA1C within 180 days To be filled at: [facility] #[id number] - [address] [place] 03-29-2024 [facility] 2024-04-14 13:16:12 From: Maximus Sheehan To: Office of Pat Ochoa Sent: 04/14/2024 12:51 PM CDT Subject: Medication Renewal Request Refills have been requested for the following medications: dulaglutide (TRULICITY) 1.5 mg/0.5 mL PnIj [Pat Ochoa] Patient Comment: I am out as of today Preferred pharmacy: [facility] #[id number] - [address] Delivery method: Pickup [facility] 2024-03-28 08:27:15 Quanta vicente pad test 02/24/24 concerning for moderate pad. Continue risk assessment and reduction. [facility] on statin [facility] 2024-03-28 08:12:35 Records reviewed, f/u in next appointment [facility] 2024-03-24 12:11:30 Problem: Bleeding, Risk of [...] Lakeshia Turcios RN Outcome: Progressing as expected Turcios RN [facility] 2024-03-24 08:38:24 Problem: Bleeding, Risk of Goal: Absence of impaired coagulation signs and symptoms Outcome: Progressing as expected Goal: Absence of active bleeding Outcome: Progressing as expected Problem: Falls, Risk of Goal: Absence of falls Outcome: Progressing as expected Problem: Discharge Planning Goal: Adequate for discharge Outcome: Progressing as expected Goal: Effective communication Outcome: Progressing as expected [facility] 2024-03-24 03:23:47 Problem: Bleeding, Risk of Goal: Absence of impaired coagulation signs and symptoms 03/24/2024 0324 by Jose Cruz RN Outcome: Progressing as expected 03/24/2024 0323 by Jose Cruz RN Outcome: Progressing as expected Goal: Absence of active bleeding 03/24/2024 032 by Jose Cruz RN Outcome: Progressing as expected 03/24/2024322 by Jose Cruz RN Outcome: Progressing as expected Problem: Falls, Risk of Goal: Absence of falls Outcome: Progressing as expected Problem: Discharge Planning Goal: Adequate for discharge Outcome: Progressing as expected Goal: Effective communication Outcome: Progressing as expected Jose Cruz RN [facility] 2024-03-23 14:48:50 Health assessment received from [facility] scanned in folder and placed in provider basket for review. Lynne Christiansen [facility] 2024-03-22 21:46:38 Problem: Bleeding, Risk of Goal: Absence of impaired coagulation signs and symptoms Outcome: Progressing as expected Goal: Absence of active bleeding Outcome: Progressing as expected Steven Ambrose RN [facility] 2024-03-22 08:19:00 FULL OPERATIVE NOTE Date [...] of the procedure. Ron Hoover MD, VI, [facility] Vascular Surgery PGY17 [facility]-VASCULAR SURGERY [facility] 2024-03-22 08:19:00 BRIEF OPERATIVE NOTE Date [...] Implant Name Type Inv. Item Serial No. Technician Helper Instrument Lot No. LRB No. Used Action PATCH XENOSUR 0.8X8CM TAPR 0.5 #[id number] - S0000 Tissue, Biological PATCH XENOSUR 0.8X8CM TAPR 0.5 #[id number] 0000 [facility] VASCULAR [id number] Right 1 Implanted Patient's Condition: stable Findings: ICA stenosis Any other important information: - SBP goal <140 Please see dictated operative report for additional detail. Associated attestation - Ron Hoover MD - 03/24/2024 7:31 AM CDT I was scrubbed in and directly supervised and/or performed all critical portions of the procedure. Ron Hoover MD, RPVI, FSVS Vascular Surgery PGY17 [facility] 2024-03-19 10:30:00 Images from the original note were not included. Venipuncture collection performed by clean technique on the left anticubitus. Total of 1 attempts were made. Slight pressure and a bandage/dressing were applied to the site(s). The patient experienced no complications. The following specimens were processed according to instructions and sent to [facility] laboratories per lab order on 03/19/2024 : Patient armbanded and specimen sent to [facility]. LT BLUE SST RED LAV 1 PPT DK GREEN (LiHep) DK GREEN (SodH) MENON DK BLUE (K2) DK BLUE (S) ACD Blood Culture NIPT/NTD [facility] 2024-03-17 16:02:18 Results received from [employer] scanned in folder and placed in provider basket for review. Lynne Christiansen [facility] 2024-03-14 11:49:56 Rollator order sent to [facility] via [employer]. Jose Ramos RN [facility] 2024-03-11 14:59:20 Images from the original note were not included. POC discussed with pt, ER precautions discussed. Pt verbalized understanding and agrees w/POC. Pat Ochoa FNP MIDLEVEL PROVIDER Signed 2:38 PM I would continue to hold the Losartan If the BP starts to go up to 140/90 Then start back at Losartan 12.5 mg (half the tablet) Jose Ramos RN [facility] 2024-03-11 14:38:58 I would continue to hold the Losartan If the BP starts to go up to 140/90 Then start back at Losartan 12.5 mg (half the tablet) [facility] 2024-03-11 14:12:39 Pt states HH nurse [...] of Rollator. Rx re-printed to send via [employer]. Message forwarded to ROBYN Esparza. [facility] 2024-03-11 13:08:47 Copied from [facility] #[id number]. Topic: Clinical - Medical Advice >> March 11, 2024 1:05 PM Patient Diabetes Nurse wrote: Pt calls and states that his BP is continuously low. Pt stopped taking losartan [address] Fink put pt on metoprolol and made him stop taking carvedilol. He states that it is starting to get a little better. He is requesting to speak with clinical staff in regards to his blood pressure readings. Please advise. Janie Hardwick [facility] 2024-03-10 15:00:00 Addended by: RON HOOVER MD on: 03/17/2024 04:12 PM Modules accepted: Orders T [facility] 2024-03-03 01:59:06 Pt dc'd home with personal walker. Pt v/u to keep follow up appointments that he already has scheduled and to return to ED for worsening symptoms. Quiana Carranza RN [facility] 2024-03-02 23:43:23 Pt stated he had a fall last Thursday and woke up 30 min later on the floor. Pt had full workup at [facility]. Pt stated tonight he "just felt like I wasn't going to wake up in the morning so I decided to come get checked out." Pt obtained a ride from a friend in the [place] lives at and asked me if we could keep him until 8am so he could walk across the street to his cardiology appointment at 9am. T [facility] 2024-03-02 23:16:00 Pt arrives ambulatory with [...] BG 123 in triage. Marianela Walker RN [facility] 2024-03-02 16:21:06 Forms placed in nurse folder, has appt tomorrow. 03/03/2024. Jose Ramos RN [facility] 2024-03-02 14:04:26 Please make sure patient brings imaging studies with him to appointment (CT results on disc please, not just report) CAROLYN-VASCULAR SURGERY STAFF [facility] 2024-03-02 13:53:08 Images from the original note were not included. Transition of Care forms received placed in Nurse fax folder. Cynthia Walker [facility] 2024-03-02 11:16:[address] [facility] reports and disc received by patient and placed in the providers folder at [facility] location. Reports scanned to [employer] for upload. Ana Maria Andrew [facility] 2024-02-29 13:16:02 Patient scheduled for next available 03/10/24 and message routed to Dr Hoover for notification. Spoke with patient and notified next available 03/10/24. Patient encouraged to let attending know that he is scheduled for next available 03/10/[address] Hoover. Patient verbalized understanding. 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 Venipuncture collection performed by clean technique on the right anticubitus. Total of 3 attempts were made. Slight pressure and a bandage/dressing were applied to the site(s). The patient experienced no complications. The following specimens were processed according to instructions and sent to [facility] laboratories per lab order on 02/22/2024 : LT BLUE SST 2 RED LAV 1 PPT DK GREEN (LiHep) DK GREEN (SodH) MENON DK BLUE (K2) DK BLUE (S) ACD Blood Culture NIPT/NTD [facility] 2024-02-10 15:14:11 Forms received and placed in providers folder. Jose Ramos RN [facility] 2024-02-10 08:57:17 Images from the original note were not included. Placed in nurse folder. Lynne Christiansen [facility] 2024-02-10 08:50:30 Will await forms for completion Jose Ramos RN [facility] 2024-02-10 08:21:11 Maximus Sheehan is a 68 year old male January [facility] medical called stating they will be faxing over "Jose 2 sensors forms" for pcp to be filled out. Please advise [facility] MEDICAL INFO # [phone] Fx # [phone] Anatoly Johnsones Eduardo [facility] 2024-01-29 12:43:02 Refill [facility] 2024-01-29 11:31:00 Medication has not been filled by our office before. Message forwarded to provider for approval. Jose Ramos RN [facility] 2024-01-06 09:06:45 Images from the original note were not included. Notification received [facility], placed in provider folder for review. Cynthia Walker [facility] 2024-01-04 16:53:53 Received medical records from [facility] scanned and placed in box. Yancy Thurston [facility] 2024-01-04 15:13:09 Sensor has been sent to a DME company ([employer]) through [employer]. Patient rollator is waiting for provider signature. Resent to provider to sign orders through [employer]. Marianela Calderon MA [facility] 2024-01-04 13:51:14 Per patient, he is using the [employer] Jose 2 sensor and it must be sent to [employer], it cannot be sent to the pharmacy. Order updated. Will routed to [facility] for DME order to [employer]. [facility] 2023-12-29 13:59:51 Pt has signed medical release and has been faxed to designated location for request of medical records. Confirmation received. Scanned and uploaded to patients chart. TRICAL ENGINEERING TECHNOLOGIST Lucia Sandoval [facility] 2023-12-08 10:49:19 Maximus Sheehan [id number] 12/08/23 Incoming call from patient who is trying to contact his PCP, Pat Ochoa -ROBYN regarding his medication. Current overdue topics are [...] "I need to contact my PCP, Pat Ochoa regarding my medication and some questions I have. I was trying to contact the clinic but some how my phone call got routed to you. Can you transfer me or give me the phone number. Attempted to transfer but unable to transfer to this clinic in [place], [place]. Patient was given the clinic phone number [phone] to speak with staff at the [facility]. Deandra Medina RN 12/08/2023 10:49 AM TRICAL ENGINEERING TECHNOLOGIST Deandra Medina RN [facility] 2023-12-02 11:45:00 Images from the original note were not included. Venipuncture collection performed by clean technique on the right anticubitus. Total of 1 attempts were made. Slight pressure and a bandage/dressing were applied to the site(s). The patient experienced no complications. The following specimens were processed according to instructions and sent to [facility] laboratories per lab order on 12/02/2023: LT BLUE SST 1 RED LAV 2 PPT DK GREEN (LiHep) DK GREEN (SodH) MENON DK BLUE (K2) DK BLUE (S) ACD Blood Culture NIPT/NTD Patient has been identified by and name and was provided with cup, antiseptic towelette, and clean catch instructions. 2 urine specimen(s) sent. Unpreserved 2 Urine Culture Aptima tube Other urine TRICAL ENGINEERING TECHNOLOGIST [facility] 2023-12-02 10:32:53 DME order for Rollator was sent through [employer]. Sent to [facility] Patient. TRICAL ENGINEERING TECHNOLOGIST Marianela Calderon MA [facility]
[2025-06-19 22:02] LABS: Absolute Lymphocytes (CBC) 4.3 K/uL (0.7-4.9); Hematocrit 41.0 % (39.6-49.0); Hemoglobin 13.8 g/dL (13.6-17.9); MCH 29.7 pg (27.0-35.0); MCHC 33.7 g/dL (32.0-36.0); MCV 88.0 fL (80-100); MPV 7.7 fL (7.6-11.3); Nucleated RBC Absolute Count 0.0 (0-0); Nucleated Red Blood Cells % 0.1 % (0-0); RBC Red Blood Cell Count 4.66 M/uL (4.33-5.43); White Blood Count 8.50 thou/uL (4.3-10.9)
[2025-06-19] MEDS ORDERED: NA CHLORIDE 0.9% 1,000 ML ONE (22:12)
[2025-06-19 22:22] LABS: ALT/SGPT 30 U/L (16-61); Albumin 3.3 g/dL (3.4-5.0); Albumin/Globulin Ratio 1.0 (1.1-1.8); Alkaline Phosphatase 70 U/L (45-117); Anion Gap 8.9 mEq/L (5.0-15.0); BUN Blood Urea Nitrogen 17 mg/dL (7-18); Globulin 3.3 g/dL (2.3-3.5); Glucose Level 69 mg/dL (74-106); Lipase 34 U/L (13-75); NT PRO-BNP 54 pg/mL (<125); Troponin High Sensitivity 27.3 pg/mL (<58.9)
[2025-06-19 22:24] LABS: AST/SGOT 19 U/L (15-37); Bilirubin Indirect, Calculated 0.1 mg/dL (0.2-0.8); Potassium 3.9 mEq/L (3.5-5.1)
[2025-06-19 22:25] LABS: Magnesium 2.0 mg/dL (1.6-2.4)
[2025-06-19 22:26] LABS: PT Prothrombin Time 11.5 SECONDS (10-13.0); Protime INR 1.02
--- NOTE | 2025-06-19 23:15 | RAD REPORT ---
EXAM: CT CHEST, ABDOMEN AND PELVIS WITHOUT CONTRAST CLINICAL INDICATION: Male, 69 years old. [facility] MAIN TRAUMA TECHNIQUE: CT chest, abdomen and pelvis was performed, without IV contrast, as per department protoco l. Axial, sagittal and coronal reconstructions were obtained. One or more of the following dose reduction techniques were used: Automated exposure control, adjustment of the mA and/or kV according to the patient size, and/or iterative reconstruction. Unless otherwise specified, incidental findings do not require dedicated imaging follow-up. COMPARISON: No prior exam. FINDINGS: The lack of intravenous contrast limits the sensitivity of this exam for evaluation of solid visceral organs, vascular structures, and retroperitoneum. Chest: LOWER NECK/CHEST WALL: Visualized thyroid gland and soft tissues are normal. LUNGS AND AIRWAYS: Airways are clear. No evidence of airspace or interstitial process. No nodules. PLEURA: No pleural effusion. No pneumothorax. Hemidiaphragms are normally positioned. MEDIASTINUM AND LYMPH NODES: No mediastinal mass or fluid collection. Normal size mediastinal, hilar, and axillary lymph nodes. THORACIC AORTA: Normal caliber and configuration. PULMONARY ARTERIES: Normal caliber. HEART: Unremarkable. Abdomen/Pelvis LIVER: Normal in size and contour. No focal lesion. GALLBLADDER/BILE DUCTS: Decompressed gallbladder limiting evaluation. No biliary ductal dilatation. PANCREAS: No mass, ductal dilation, or sid-pancreatic fluid. SPLEEN: Normal size. No focal lesion. ADRENALS: Normal; no mass. KIDNEYS AND URETERS: Normal size and contour. Left lower pole nonobstructing 3 mm calculus. Exophytic right superior pole 2 cm cyst again seen. No hydronephrosis. GASTROINTESTINAL TRACT: Stomach is non-dilated. Small bowel has normal course and caliber. No colonic wall thickening or pericolonic inflammatory changes. PERITONEUM: No free fluid. LYMPH NODES: No lymphadenopathy. ABDOMINAL AORTA AND OTHER VESSELS: Normal caliber aorta and IVC. URINARY BLADDER: Normal contour. REPRODUCTIVE ORGANS: No pathologic process. MUSCULOSKELETAL: No acute or suspicious osseous abnormality. ADDITIONAL FINDINGS: None IMPRESSION: Nonobstructing left lower renal pole 3 mm calculus. No other acute or significant abnormalities in the chest, abdomen, or pelvis.
--- NOTE | 2025-06-19 23:20 | RAD REPORT ---
EXAM: CT brain without contrast HISTORY: Pain;Trauma COMPARISON: 02/26/2024 and 06/04/2024 TECHNIQUE: Multiple contiguous axial images were obtained and a CT of the brain without contrast. Sag ittal and coronal reformats were performed. FINDINGS: No evidence of hydrocephalus, intracranial hemorrhage, or extra-axial fluid collection. Mild brain atrophy with mild periventricular and deep white matter chronic microvascular ischemic ch anges present. The calvarium is intact. The visualized paranasal sinuses and mastoid air cells are essentially clear . IMPRESSION: No evidence of acute intracranial abnormality. EXAM: CT of the cervical spine without contrast HISTORY: Pain;Trauma COMPARISON: None TECHNIQUE: Multiple contiguous axial images were obtained in a CT of the cervical spine without contr ast. Sagittal and coronal reformats were performed. FINDINGS: The vertebral bodies demonstrate normal height and alignment. No evidence of acute fracture or subluxation.. Mild degenerative changes are stable, with mild disc height loss and endplate remodeling at C4-5 and C5-6. No prevertebral soft tissue swelling is seen. The posterior facets are well aligned. Normal alignment of the skull base with the cervical spine is seen. The lung apices are unremarkable. IMPRESSION: No evidence of acute osseous abnormality of the cervical spine.
--- NOTE | 2025-06-19 23:29 | EDPHYS ---
Physician Documentation [facility] Name: Amando Sheehan II Age: 69 yrs Sex: Male : 1955 Arrival Date: 06/19/2025 Time: 21:40 Bed 6 Private MD: ED Physician Edil Kraft HPI: 06/19 21:57 This 69 yrs old Male presents to ER via EMS with complaints of WEAK , FALL , zayda GLUCOSE LOW. Historical: - Allergies: 21:55 Jardiance; ha1 21:55 Morphine; ha1 - Home Meds: 21:55 amlodipine 5 mg tablet [Active]; carvedilol oral [Active]; oxybutynin chloride 2.5 mg ha1 Oral tablet 2 times per day [Active]; metoprolol tartrate 50 mg Oral tablet [Active]; Metformin Oral [Active]; rosuvastatin 20 mg Oral tablet daily [Active]; levothyroxine 88 mcg tablet daily [Active]; clopidogrel 75 mg Oral tablet [Active]; pantoprazole 40 mg Oral tablet [Active]; aspirin 81 mg Oral tablet daily [Active]; Lasix 40 mg Oral tablet daily [Active]; - PMHx: 21:55 Brain bleed; Cerebrovascular accident; Myocardial infarction; Transient cerebral ha1 ischemia; traumatic brain injury; - PSHx: 21:55 brain surgery; Coronary artery bypass graft; Stented artery; ha1 - Immunization history:: Adult Immunizations not up to date. - Infectious Disease History:: Denies. - Social history:: Smoking status: unknown. ROS: 23:16 Constitutional: Negative for fever, chills, and weight loss, Eyes: Negative for injury, zayda pain, redness, and discharge, ENT: Negative for injury, pain, and discharge, Neck: Negative for injury, pain, and swelling, Cardiovascular: Negative for chest pain, palpitations, and edema, Respiratory: Negative for shortness of breath, cough, wheezing, and pleuritic chest pain, Abdomen/GI: Negative for abdominal pain, nausea, vomiting, diarrhea, and constipation, Back: Negative for injury and pain, : Negative for injury, bleeding, discharge, and swelling, MS/Extremity: Negative for injury and deformity, Skin: Negative for injury, rash, and discoloration, Psych: Negative for depression, anxiety, suicide ideation, homicidal ideation, and hallucinations, Allergy/Immunology: Negative for hives, rash, and allergies, Endocrine: Negative for neck swelling, polydipsia, polyuria, polyphagia, and marked weight changes, Hematologic/Lymphatic: Negative for swollen nodes, abnormal bleeding, and unusual bruising, 23:16 Neuro: Positive for headache, weakness, Exam: 23:16 Constitutional: This is a well developed, well nourished patient who is awake, alert, zayda and in no acute distress. Head/Face: Normocephalic, atraumatic. Eyes: Pupils equal round and reactive to light, extra-ocular motions intact. Lids and lashes normal. Conjunctiva and sclera are non-icteric and not injected. Cornea within normal limits. Periorbital areas with no swelling, redness, or edema. ENT: Nares patent. No nasal discharge, no septal abnormalities noted. Tympanic membranes are normal and external auditory canals are clear. Oropharynx with no redness, swelling, or masses, exudates, or evidence of obstruction, uvula midline. Mucous membranes moist. Neck: Trachea midline, no thyromegaly or masses palpated, and no cervical lymphadenopathy. Supple, full range of motion without nuchal rigidity, or vertebral point tenderness. No Meningismus. Chest/axilla: Normal chest wall appearance and motion. Nontender with no deformity. No lesions are appreciated. Cardiovascular: Regular rate and rhythm with a normal S1 and S2. No gallops, murmurs, or rubs. Normal PMI, no JVD. No pulse deficits. Respiratory: Lungs have equal breath sounds bilaterally, clear to auscultation and percussion. No rales, rhonchi or wheezes noted. No increased work of breathing, no retractions or nasal flaring. Abdomen/GI: Soft, non-tender, with normal bowel sounds. No distension or tympany. No guarding or rebound. No evidence of tenderness throughout. Back: No spinal tenderness. No costovertebral tenderness. Full range of motion. Skin: Warm, dry with normal turgor. Normal color with no rashes, no lesions, and no evidence of cellulitis. MS/ Extremity: Pulses equal, no cyanosis. Neurovascular intact. Full, normal range of motion., bilateral aka Neuro: Awake and alert, GCS 15, oriented to person, place, time, and situation. Cranial nerves II-XII grossly intact. Motor strength 5/5 in all extremities. Sensory grossly intact. Cerebellar exam normal. Normal gait. Psych: Awake, alert, with orientation to person, place and time. Behavior, mood, and affect are within normal limits. 23:16 Musculoskeletal/extremity: DVT Exam: No signs of deep vein thrombosis. no pain, no swelling, no tenderness, negative Homans' sign noted on exam, no appreciated bluish discoloration, no erythema, no increased warmth, 23:24 ECG was reviewed by the Attending Physician. [facility] Vital Signs: 21:42 BP 157 / 76; Pulse 84; Resp 18; Temp 97.9(T); Pulse Ox 98% on R/A; ha1 22:35 BP 146 / 75; Pulse 82; Resp 17 S; Pulse Ox 98% on R/A; ha1 23:22 BP 142 / 72; Pulse 74; Resp 16; Pulse Ox 98% on R/A; jb4 06/20 00:17 BP 146 / 70; Pulse 72; Resp 18 S; Pulse Ox 98% on R/A; ha1 MDM: 06/19 21:42 Medical Screening Exam initiated zayda 21:42 Medical Screening Exam initiated zayda 23:17 Differential diagnosis: closed head injury, C spine fracture, T spine fracture, L spine zayda fracture. Differential Diagnosis altered mental status, sepsis, flu. Data reviewed: vital signs, nurses notes, lab test result(s), EKG, radiologic studies, plain films. Consideration of Admission/Observation Escalation of care including admission/observation considered. I considered the following discharge prescriptions or medication management in the emergency department Medications were administered in the Emergency Department. See MAR. Independent interpretation of the following test(s) in the Emergency Department EKG: See my EKG interpretation above CT Scan: My interpretation is CT TRAUMA. Test considered but Not performed: MRI: NO MRI BRAIN. Historians other than the Patient: EMS: EMS WELL INFORMED. Care significantly affected by the following chronic conditions: Diabetes, Hypertension, CVA , WEAKNESS. 06/19 21:45 Order name: Basic Metabolic Panel; Complete Time: 23:15 [facility] 06/19 21:45 Order name: CBC with Diff [facility] 06/19 21:45 Order name: LFT's; Complete Time: 23:15 [facility] 06/19 21:45 Order name: Magnesium; Complete Time: 23:15 [facility] 06/19 21:45 Order name: NT PRO-BNP; Complete Time: 23:15 [facility] 06/19 21:45 Order name: PT-INR; Complete Time: 23:15 [facility] 06/19 21:45 Order name: Troponin HS; Complete Time: 23:15 [facility] 06/19 21:45 Order name: Lipase; Complete Time: 23:15 [facility] 06/19 22:02 Order name: Glucose, Ancillary Testing; Complete Time: 23:15 [facility] 06/19 22:11 Order name: Manual Differential [facility] 06/20 00:01 Order name: Glucose, Ancillary Testing [facility] 06/19 21:45 Order name: XRAY Chest (1 view) [facility] 06/19 21:52 Order name: Head C Spine Mpr Wo Con; Complete Time: 23:27 [facility] 06/19 21:56 Order name: Chest Abd Pelvis Wo Con; Complete Time: 23:27 [facility] 06/19 21:45 Order name: Cardiac monitoring; Complete Time: 21:59 [facility] 06/19 21:45 Order name: EKG - Nurse/Tech; Complete Time: 21:59 [facility] 06/19 21:45 Order name: IV Saline Lock; Complete Time: 21:59 [facility] 06/19 21:45 Order name: Labs collected and sent; Complete Time: 21:59 [facility] 06/19 21:45 Order name: O2 Per Protocol; Complete Time: 21:59 [facility] 06/19 21:45 Order name: O2 Sat Monitoring; Complete Time: 21:59 [facility] 06/19 21:45 Order name: PO challenge: DIET; Complete Time: 22:28 [facility] EC:24 Rate is 85 beats/min. Rhythm is regular. QRS [place] is Normal. CO interval is normal. QRS zayda interval is normal. QT interval is normal. No Q waves. T waves are Normal. No ST changes noted. Clinical impression: NSR w/ Non-specific ST/T Changes and No evidence of ischemia. Interpreted by me. Reviewed by me. Administered Medications: 22:28 Drug: NS 0.9% IV 1000 ml IV at 1000 ml once; to be given as a bolus over 60 minutes ha1 Route: IV; Rate: 1000 ml; Site: right forearm; 06/20 00:16 Follow up: Response: No adverse reaction; IV Status: Completed infusion ha1 Disposition Summary: 06/19/25 23:28 Discharge Ordered Notes: Location: Home zayda Problem: new zayda Symptoms: have improved zayda Condition: Stable zayda Diagnosis - Other hypoglycemia zayda - Adverse effect of insulin and oral hypoglycemic [antidiabetic] drugs zayda - Fall on same level, unspecified zayda Followup: zayda - With: Private Physician - When: 2 - 3 days - Reason: Recheck today's complaints, Continuance of care, Re-evaluation by your physician Discharge Instructions: - Discharge Summary Sheet zayda - Head Injury, Adult zayda - Fall Prevention in the Home, Adult zayda - Hypoglycemia zayda - Musculoskeletal Pain zayda - Fall Prevention in the Home, Adult, [id number] zayda - Head Injury, Adult, [id number] zayda - Hypoglycemia, [id number] zayda Forms: - Medication Reconciliation Form zayda - Antibiotic Education zayda - Prescription Opioid Use zayda - Patient Portal Instructions zayda - Leadership Thank You Letter [facility] Prescriptions: - Tylenol 325 mg Oral tablet - take 2 tablets ORAL route every 6 hours as needed; 36 tablet; Refills: 0, zayda Product Selection Permitted Signatures: Dispatcher [employer] EDMS Edil Kraft MD MD cha Ayala, Heidy RN RN ha1 Corrections: (The following items were deleted from the chart) 06/19 21:46 21:46 BASIC METABOLIC PANEL+C.LAB.BRZ ordered. EDMS EDMS 21:46 21:46 CBC+H.LAB.BRZ ordered. EDMS EDMS 21:46 21:46 HEPATIC FUNCTION+C.LAB.BRZ ordered. EDMS EDMS 21:46 21:46 MAGNESIUM+C.LAB.BRZ ordered. EDMS EDMS 21:46 21:46 PROBNP+C.LAB.BRZ ordered. EDMS EDMS 21:46 21:46 PROTIME (+INR)+COAG.LAB.BRZ ordered. EDMS EDMS 21:46 21:46 Troponin High Sensitivity+C.LAB.BRZ ordered. EDMS EDMS 21:46 21:46 LIPASE+C.LAB.BRZ ordered. EDMS EDMS 21:46 21:46 UA Rfx Patrick Cult if indicated+U.LAB.BRZ ordered. EDMS EDMS 21:46 21:46 Chest Single View+RAD.RAD.BRZ ordered. EDMS EDMS 21:46 21:46 Head C Spine Cap Wo Con+CT.RAD.BRZ ordered. EDMS EDMS
--- NOTE | 2025-06-19 23:29 | ER ---
Nurse's Notes [facility] Name: Amando Sheehan II Age: 69 yrs Sex: Male : 1955 Arrival Date: 06/19/2025 Time: 21:40 Bed 6 Private MD: Diagnosis: Other hypoglycemia;Adverse effect of insulin and oral hypoglycemic [antidiabetic] drugs;Fall on same level, unspecified Presentation: 06/19 21:42 Chief complaint: EMS states: LOW GLUCOSE LEVEL, DIAPHORETIC, AND CLAMMY ON OUR ARRIVAL. ha1 POSITIVE LOC AT 2030 BEFORE OUR ARRIVAL. REPORTS PAIN ON THE BACK OF THE HEAD. 21:42 Coronavirus screen: Client denies travel out of the [place] in the last 14 days. Ebola ha1 Screen: No symptoms or risks identified at this time. Initial Sepsis Screen: Does the patient meet any 2 criteria? No. Patient's initial sepsis screen is negative. Does the patient have a suspected source of infection? No. Patient's initial sepsis screen is negative. Risk Assessment: Do you want to hurt yourself or someone else? Patient reports no desire to harm self or others. Onset of symptoms was June 19, 2025. 21:42 Method Of Arrival: EMS: [facility] ha1 21:42 Acuity: SILVIA 3 ha1 Triage Assessment: 21:55 General: Appears uncomfortable, Behavior is calm, cooperative. Pain: Complains of pain ha1 in occipital area Pain currently is 8 out of 10 on a pain scale. Quality of pain is described as aching, pressure. Neuro: Level of Consciousness is awake, alert, obeys commands, Oriented to person, place, time, situation. Cardiovascular: Capillary refill < 3 seconds Patient's skin is warm and dry. Respiratory: Airway is patent Respiratory effort is even, unlabored, Respiratory pattern is regular, symmetrical. GI: Abdomen is round non-distended, Reports LOW GLUCOSE LEVEL. : No signs and/or symptoms were reported regarding the genitourinary system. Derm: Skin is pink, warm \T\ dry. Musculoskeletal: Circulation, motion, and sensation intact. Range of motion: intact in all extremities. Historical: - Allergies: 21:55 Jardiance; ha1 21:55 Morphine; ha1 - Home Meds: 21:55 amlodipine 5 mg tablet [Active]; carvedilol oral [Active]; oxybutynin chloride 2.5 mg ha1 Oral tablet 2 times per day [Active]; metoprolol tartrate 50 mg Oral tablet [Active]; Metformin Oral [Active]; rosuvastatin 20 mg Oral tablet daily [Active]; levothyroxine 88 mcg tablet daily [Active]; clopidogrel 75 mg Oral tablet [Active]; pantoprazole 40 mg Oral tablet [Active]; aspirin 81 mg Oral tablet daily [Active]; Lasix 40 mg Oral tablet daily [Active]; - PMHx: 21:55 Brain bleed; Cerebrovascular accident; Myocardial infarction; Transient cerebral ha1 ischemia; traumatic brain injury; - PSHx: 21:55 brain surgery; Coronary artery bypass graft; Stented artery; ha1 - Immunization history:: Adult Immunizations not up to date. - Infectious Disease History:: Denies. - Social history:: Smoking status: unknown. Screenin:00 [facility] ED Fall Risk Assessment (Adult) History of falling in the last 3 months, ha1 including since admission No falls in past 3 months (0 pts) Confusion or Disorientation No (0 pts) Intoxicated or Sedated No (0 pts) Impaired Gait No (0 pts) Mobility Assist Device Used No (0 pt) Altered Elimination No (0 pt) Score/Fall Risk Level 0 - 2 = Low Risk Oriented to surroundings, Maintained a safe environment, Educated pt \T\ family on fall prevention, incl call for assistance when getting out of bed, Hourly rounding (assess needs \T\ fall precautionary measures) done. Abuse screen: Denies threats or abuse. Denies injuries from another. Nutritional screening: No deficits noted. Tuberculosis screening: No symptoms or risk factors identified. Assessment: 21:42 General: SEE TRIAGE ASSESSMENT . ha1 22:15 Reassessment: Patient and/or family updated on plan of care and expected duration. Pain ha1 level reassessed. Patient is alert, oriented x 3, equal unlabored respirations, skin warm/dry/pink. PROVIDED SNACKS. 22:37 Reassessment: Patient and/or family updated on plan of care and expected duration. Pain ha1 level reassessed. Patient is alert, oriented x 3, equal unlabored respirations, skin warm/dry/pink. Patient states feeling better. Patient states symptoms have improved. 23:22 Reassessment: Patient appears in no apparent distress at this time. Patient and/or jb4 family updated on plan of care and expected duration. Pain level reassessed. Patient is alert, oriented x 3, equal unlabored respirations, skin warm/dry/pink. 06/20 00:00 Reassessment: Patient and/or family updated on plan of care and expected duration. Pain ha1 level reassessed. Patient is alert, oriented x 3, equal unlabored respirations, skin warm/dry/pink. patient awaiting on transportation Patient states feeling better. Patient states symptoms have improved. Vital Signs: 06/19 21:42 BP 157 / 76; Pulse 84; Resp 18; Temp 97.9(T); Pulse Ox 98% on R/A; ha1 22:35 BP 146 / 75; Pulse 82; Resp 17 S; Pulse Ox 98% on R/A; ha1 23:22 BP 142 / 72; Pulse 74; Resp 16; Pulse Ox 98% on R/A; jb4 06/20 00:17 BP 146 / 70; Pulse 72; Resp 18 S; Pulse Ox 98% on R/A; ha1 ED Course: 06/19 21:42 Patient arrived in ED. zayda 21:42 Edil Kraft MD is Attending Physician. zayda 21:42 Patient has correct armband on for positive identification. Placed in gown. Bed in low ha1 position. Call light in reach. Side rails up X 1. 21:42 Provided Education on: LOW GLUCOSE LEVEL AND PREVENTION . ha1 21:42 Arm band placed on right wrist. EKG completed in triage. Results shown to MD. ha1 21:50 Inserted saline lock: 20 gauge in right forearm, using aseptic technique. Blood cc6 collected. Flushed with 10 mL NS. 21:55 Triage completed. ha1 22:19 Head C Spine Mpr Wo Con In Process Unspecified. EDMS 22:20 Chest Abd Pelvis Wo Con In Process Unspecified. EDMS 22:22 Jenna Burleson, RN is Primary Nurse. ha1 22:33 Client placed on continuous cardiac and pulse oximetry monitoring. NIBP monitoring ha1 applied. diesel technology instructor on. Door closed. Noise minimized. Warm blanket given. Pillow given. 22:54 XRAY Chest (1 view) In Process Unspecified. EDMS 06/20 00:16 No provider procedures requiring assistance completed. IV discontinued, intact, ha1 bleeding controlled, No redness/swelling at site. Pressure dressing applied. Administered Medications: 06/19 22:28 Drug: NS 0.9% IV 1000 ml IV at 1000 ml once; to be given as a bolus over 60 minutes ha1 Route: IV; Rate: 1000 ml; Site: right forearm; 06/20 00:16 Follow up: Response: No adverse reaction; IV Status: Completed infusion ha1 Medication: 06/19 22:35 VIS not applicable for this client. ha1 Outcome: 23:28 Discharge ordered by MD. priest 06/20 00:17 Discharged to home via wheelchair, ha1 Condition: stable Discharge instructions given to patient, Instructed on discharge instructions, follow up and referral plans. medication usage, Demonstrated understanding of instructions, follow-up care, medications, Prescriptions given X 1, 00:30 Patient left the ED. jb4 Signatures: Dispatcher [employer] EDMS Edil Kraft MD MD cha Bryson, James RN RN jb4 Jenna Burleson RN RN ha1 Mariluz Avalos RN RN cc6
[2025-06-20 01:25] LABS: Differential Total Cells Count 100; Segmented Neutrophils 37 % (40-80)
[2025-06-20 01:27] LABS: Blood Morphology Comment NOT SEEN (NOT SEEN)
[2025-06-20 04:50] VITALS: TEMP 97.9; O2SAT 98
[2025-06-20 04:54] VITALS: BP 146/70
--- NOTE | 2025-06-20 05:35 | RAD REPORT ---
CLINICAL HISTORY: Cough, dyspnea. COMPARISON: None. TECHNIQUE: XR CHEST 1 VIEW 06/19/2025 9:45 PM CDT FINDINGS: The heart is normal in size following sternotomy. Lungs are clear without consolidation, atelectasis, mass or edema. There is no pleural effusion. There is no pneumothorax. There are no acute osseous findings. IMPRESSION: Clear lungs. Electronically signed by: Ronan Naqvi MD 06/19/2025 11:26 PM CDT RP Du e to temporary technical issues with the [employer] reporting system, reports are being signed by the in-house radiologist without review as a courtesy to ensure prompt reporting the [facility] radiologist is fully responsible for the content of the report. Transcribed Date/Time: 06/20/2025 5:35 AM
== END 2025-06-20 00:30 | disposition home or self-care (01) ==
LOC: ER 21:40
DX: E16.1 Other hypoglycemia (principal); T38.3X5A Adverse effect of insulin and oral hypoglycemic [antidiabetic] drugs, initial encounter; W18.30XA Fall on same level, unspecified, initial encounter; Z87.820 Personal history of traumatic brain injury; Z79.82 Long term (current) use of aspirin; Z95.1 Presence of aortocoronary bypass graft
CPT/HCPCS: 93005; 85025; 80048; 36415; 83735; 85610; 82947 ×2; 80076; 84484; 83690; 83880; 70450; 71250; 72125; 74176; 71045; J7030

== ENCOUNTER 2025-07-17 14:44 | Emergency (ER) | payer OTHER ==
--- OUTSIDE RECORDS SUMMARY | 2025-07-17 15:06 | XMS REPORT | Continuity of Care Document ---
Author Name Unknown Address [address] [place] [address] [facility] Address [address] [place] [address] Care Team Providers Care Bass Viol Repairer Name Role Phone Marcel Toth MD Primary Care Physician + [phone] RILEY GRANADOS Attending Clinician Unavailable LYNN DOLL Attending Clinician Unavailable ROMA DAVSION Attending Clinician Unavailable ALLYSON FINK Attending Clinician Unavailable RON HOOVER Attending Clinician Unavailable WILLY VALDIVIA Attending Clinician UnavailWILLY Hansen Attending Clinician UnavailMARCEL Dorado Attending Clinician Unavailab MARCEL Hankins Attending Clinician Unavailab LASHA Mckeon Attending Clinician Unavail able LASHA AGUILAR Attending Clinician Unavail able 2, [facility] Attending Clinician Unavailable Marcel Toth MD Attending Clinician [phone] Roma Davison MD Attending Clinician [phone] Allyson Fink MD Attending Clinician [phone] Donovan IRBY, Lasha Hensley Attending Clinician [phone] GARO NORWOOD Attending Clinician Unavailable Roberta IRBY, Riley Pope Attending Clinician [phone] Li PAYNE, Yaz Pope Attending Clinician Unava ilMARGOTH Morris Attending Clinician Unavailable MEMO HEMSAM, ARIADNE Attending Clinician Unavailab yannick [place] HEMARIADNE VARGAS Attending Clinician Unavailab Natanael Humphries DO Attending Clinician [phone] Doctor Unassigned, Bartley Attending Clinician U poncho Doll MD, Lynn Attending Clinician [phone] Memo Marino MD, Ariadne Attending Clinician [phone] Mauri Sewell Attending Clinician [phone] Adela Ward DO Attending Clinician [phone] ORVILLE SHAW Attending Clinician UnavailORVILLE Fraire Attending Clinician UnavailOrville Fraire MD Attending Clinician [phone] Apurva Leonard PT Attending Clinician Unavailab yannick Obrien LMSW, Shelby Attending Clinician Unavai SALEEM Reich Attending Clinician Unavailable SALEEM ERICKSON Attending Clinician Unavailable Mindy Andino MD Attending Clinician [phone] HALINA VEGAS Attending Clinician UnavailALEX Myers Attending Clinician UnavailALEX Myers Attending Clinician Unavailmarleny Blanchard MD, Alex Pope Attending Clinician [phone] MINDY ANDINO Attending Clinician Unavailable MINDY ANDINO Attending Clinician Unavailable Scar IRBY, Brennen Pérez Attending Clinician [phone] Duc Robbins CRNA Attending Clinician [phone] Gabriella Nobles Attending Clinician Unava Bobbi Mcdaniel Attending Clinician + [phone] KIAH GARCIA Attending Clinician UnavailKIAH Souza Attending Clinician Unavailmarleny Garcia MD, Kiah Renae Attending Clinician [phone] BOBBI SAUNDERS Attending Clinician Unavaila aria CARLSON, Pat Attending Clinician [phone] Nurse, [facility] Surgery Gu Attending Clinician Judy Roberts RN, Latosha Pope Attending Clinician Unavailab yannick Chong MD, Mendoza Attending Clinician [phone] MENDOZA CHONG Attending Clinician Unavailable Nurse, [facility] Surgery Gu Attending Clinician JHONY Gongora Attending Clinician Unavailable Chano IRBY, Jhony Attending Clinician [phone] SANDRO RAMIREZ Attending Clinician Unavail able SANDRO RAMIREZ Attending Clinician Unavail able Corbin IRBY, Sandro Nickerson Attending Clinician [phone] Raudel PAYNE, Ketty Barry Attending Clinician Unavailable WAYNE ZAPATA Attending Clinician Unavailable WAYNE ZAPATA Attending Clinician Unavailable Wayne Zapata DO Attending Clinician [phone] Sneha IRBY, Ron Attending Clinician [phone] La Nena Hamm Attending Clinician [phone] Joselo PAYNE, Jayashree Barry Attending Clinician Unavail able DONAVON BROWN Attending Clinician Unavailab yannick Calvillo MD, Juan Cook Attending Clinician [phone] Anita Arroyo DO Attending Clinician [phone] Donavon Brown MD Attending Clinician [phone] APRIL HERNANDEZ Attending Clinician Unavailable APRIL HERNANDEZ Attending Clinician Unavailable April Sanchez Attending Clinician [phone] Andi Maier MD Attending Clinician [phone] Krishan Macias MD Attending Clinician [phone] Halina Vegas MD Attending Clinician + [phone] Pat Styles Attending Clinician +[phone] Jace IRBY, Allyson Attending Clinician [phone] Michelle Olmstead LCSW Attending Clinician [phone] PAT OCHOA Attending Clinician Unavailable Pob, [facility] Lab Main Attending Clinician Unavailabl e Doctor Unassigned, Bartley Attending Clinician U navailable Anderson Rosalva NAVARRO Attending Clinician [phone] 2, [facility] Attending Clinician Unavailable Supa IRBY, Krishan Attending Clinician [phone] Donovan IRBY, Lasha Hensley Attending Clinician IDALIA HART Attending Clinician Unavailab yannick Medina RN, Deandra Barry Attending Clinician Unav ailbushra Shah LMSW, Debbie Cook Attending Clinician Unava ilRILEY Henley Admitting Clinician Unavailable LYNN DOLL Admitting Clinician Unavailable MARGOTH RAMACHANDRAN Admitting Clinician Unavailable ARIADNE LASSITER Admitting Clinician Unavailab Ariadne Moss MD Admitting Clinician +[phone] Adela Ward DO Admitting Clinician +[phone] ADELA WARD Admitting Clinician Unavailable ALEX BLANCHARD Admitting Clinician UnavailMINDY Potrer Admitting Clinician Unavailable Mindy Andino MD Admitting Clinician [phone] JHONY MADDEN Admitting Clinician Unavailable Jhony Madden MD Admitting Clinician [phone] ANITA ARROYO Admitting Clinician Unavailable Anita Arroyo DO Admitting Clinician [phone] RON HOOVER Admitting Clinician Unavailable Payers Payer Name Policy Type Policy Number Effective Date Expirati on Date Source FRIEDA [facility]TERO [facility] [id number] 2023 00:00:00 [place] [id number] 2024 00:00:00 Problems Condition Name Condition Details Condition Category Status Onset Date Resolution Date Last Treatment Date Treating Clinician Comments Source S/P PTCA (percutane ous translumin al coronary angioplast y) S/P PTCA (percutane ous translumin al coronary angioplast y) Disease Active 02-22 00:00: 00 [facility] Dizziness and giddiness Dizziness and giddiness Disease Active 02-22 00:00: 00 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 Chest pain Chest pain Disease Active 4-14 00:00: 00 [facility] Encounter for screening colonoscop y Encounter for screening colonoscop y Disease Active 1-17 00:00: 00 [facility] Atheroscle rosis of abdominal aorta Atheroscle rosis of abdominal aorta Disease Active 1-13 00:00: 00 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 Urinary retention Urinary retention Disease Active 2023-10 017 00:00: 00 [facility] Benign prostatic hyperplasi a with urinary frequency Benign prostatic hyperplasi a with urinary frequency Disease Active 2023-10 017 00:00: 00 [facility] HFrEF (heart failure with reduced ejection fraction) HFrEF (heart failure with reduced ejection fraction) Disease Active 07-18 00:00: 00 [facility] PFO (patent foramen ovale) PFO (patent foramen ovale) Disease Active 07-18 00:00: 00 [facility] Numbness and tingling of right arm Numbness and tingling of right arm Disease Active 9-12 00:00: 00 [facility] Cerebrovas cular accident (CVA), unspecifie d mechanism Cerebrovas cular accident (CVA), unspecifie d mechanism Disease Active 8- 00:00: 00 [facility] Black-out (not amnesia) Black-out (not amnesia) Disease Active 8- 00:00: 00 [facility] Stenosis of carotid artery, unspecifie d laterality Stenosis of carotid artery, unspecifie d laterality Disease Active 8 00:00: 00 [facility] Dependent on walker for ambulation Dependent on walker for ambulation Disease Active 8 00:00: 00 [facility] Rash and nonspecifi c skin eruption Rash and nonspecifi c skin eruption Disease Active 8 00:00: 00 [facility] Multiple falls Multiple falls Disease Active 8 00:00: 00 [facility] Carotid stenosis, bilateral Carotid stenosis, bilateral Disease Active 5-16 00:00: 00 [facility] Syncope and collapse Syncope and collapse Disease Active 5 00:00: 00 [facility] Type 2 diabetes mellitus, with long-term current use of insulin Type 2 diabetes mellitus, with long-term current use of insulin Disease Active 01-03 00:00: 00 [facility] Hyperlipid emia, unspecifie d hyperlipid emia type Hyperlipid emia, unspecifie d hyperlipid emia type Disease Active 3- 00:00: 00 [facility] Essential hypertensi on Essential hypertensi on Disease Active 3-04 00:00: 00 [facility] Coronary artery disease without angina pectoris, unspecifie d vessel or lesion type, unspecifie d whether kake or transplant ed heart Coronary artery disease without angina pectoris, unspecifie d vessel or lesion type, unspecifie d whether kake or transplant ed heart Disease Active 3-04 00:00: 00 [facility] At risk for falls At risk for falls Disease Active 2- 00:00: 00 [facility] Unspecifie d abnormalit ies of gait and mobility Unspecifie d abnormalit ies of gait and mobility Disease Active 2-02 00:00: 00 [facility] Chronic systolic (congestiv e) heart failure Chronic systolic (congestiv e) heart failure Disease Active 3- 00:00: 00 [facility] Ischemic cardiomyop athy Ischemic cardiomyop athy Disease Active 3- 00:00: 00 [facility] Nephrolith iasis Nephrolith iasis Disease Active 3- 00:00: 00 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 Suicide ideation Suicide ideation Disease Active 2 00:00: 00 [facility] Acute UTI Acute UTI Disease Resolve d 2023-10 0-30 00:00: 00 2025-02-06 00:00:00 2025-02-06 08:44:04 [facility] Bilateral carotid artery stenosis Bilateral carotid artery stenosis Disease Resolve d 3- 00:00: 00 2025-02-06 00:00:00 2025-02-06 08:44:04 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 HFrEF (heart failure with reduced ejection fraction) HFrEF (heart failure with reduced ejection fraction) Disease Resolve d 3- 00:00: 00 2024-06-13 00:00:00 2024-06-13 11:23:48 [facility] Allergies, Adverse Reactions, Alerts Allergy Name Allergy Type Status Severity Reaction(s) Onset Date Inactive Date Treating Clinician Comments Source MORPHINE DRUG INGREDI Active Unknown-Cmnt 2- 00:00: 00 [facility] EMPAGLIF LOZIN DRUG INGREDI Active Unknown-Cmnt 2- 00:00: 00 [facility] Empaglif lozin Propensi ty to adverse reaction s Active Unknown - See comments 2- 00:00: 00 [facility] Morphine Propensi ty to adverse reaction s Active Unknown - See comments 2- 00:00: 00 [facility] NO KNOWN ALLERGIE S Drug Class Active [facility] Family History Family Member Diagnosis Comments Start Date Stop Date Sourc e Natural father Coronary Heart Disease [facility] Natural father Heart Unive [facility] Hy[facility] Natural mother Cancer Unive [facility] Natural mother Coronary Heart Disease [facility] Natural [facility] Natural sister Diabetes Unive [facility] Social History Social Habit Start Date Stop Date Quantity Comments Source History of tobacco use Cigarette Smoker [facility] Sexual [facility] History of Social function 2025-07-07 00:00:00 2025-07-07 00:00:00 [facility] Alcoholic beverage intake 2025-07-03 00:00:00 2025-07-03 00:00:00 Lifetime non-drinker (finding) [facility] Tobacco use and exposure 2025-02-06 00:00:00 2025-02-06 00:00:00 Smokeless tobacco non-user [facility] Alcohol intake 2023-12-29 00:00:00 2023-12-29 00:00:00 Lifetime non-drinker (finding) [facility] Sex assigned at 1955 00:00:00 1955 00:00:00 [facility] Smoking Status Start Date Stop Date Source Tobacco smoking consumption unknown [facility] Ex-smoker 2025-02-06 00:00:00 2025-02-06 00:00:00 [facility] Medications Ordered Medication Name Filled Medication Name Start Date Stop Date Current Medication? Ordering Clinician Indication Dosage Frequency Signature (SIG) Comments Components Source Magnesium Oxide 500 mg magnesium Tab 07-03 10:29: 14 Yes 420mg Take 420 mg by mouth in the morning. [facility] METFORMIN 500 mg tablet 06-19 00:00: 00 Yes [id number] TAKE 1 TABLET BY MOUTH IN THE MORNING AND IN THE EVENING WITH MEALS [facility] Insulin Atkinson, Disposable, (BD ULTRAFINE III MINI PEN) 31 gauge x 3/16" Ndle 06-19 00:00: 00 06-19 00:00 :00 Yes [id number] Use as directed [facility] dulaglutide (TRULICITY) 1.5 mg/0.5 mL PnIj 06-16 00:00: 00 Yes [id number] 1.5mg Inject 1 pen under the skin weekly. [facility] atorvastati n 20 mg tablet 05-08 00:00: 00 05-25 00:00 :00 No [id number] 20mg Take 1 tablet by mouth at bedtime. [facility] rosuvastati n 5 mg tablet 04-25 00:00: 00 Yes 5mg Take 1 tablet by mouth every evening. [facility] rosuvastati n 5 mg CpSP 04-20 00:00: 00 05-08 00:00 :00 No [id number] 5mg Take 5 mg by mouth every evening. [facility] Insulin Glargine 100 unit/mL (3 mL) injection 04-19 00:00: 00 Yes [id number] 25U Inject 25 units under the skin every morning. [facility] cephALEXin (KEFLEX) capsule 500 mg 03-31 13:00: 00 04-07 12:59 :00 No 500mg 500 mg, Oral, BID, 14 doses, First dose on Thu03/31/25 at 0800, Last dose on Thu04/06/25 at 2000, DAVID, Reason for Anti-Infec tive: Documented Infection, Documented Infection Site: Urine, Duration of therapy: [address] [facility] isosorbide mononitrate 30 mg 24 hr tablet 03-31 00:00: 00 05-25 00:00 :00 No [id number] 30mg Take 1 tablet by mouth in the morning. [facility] cephALEXin 500 mg capsule 03-31 00:00: 00 04-08 04:59 :00 No [id number] 500mg Take 1 capsule by mouth in the morning and 1 capsule in the evening. Do all this for [address] [facility] insulin glargine (LANTUS U-100) injection 27 Units insulin glargine (LANTUS U-100) injection 27 Units 03-30 14:00: 00 03-30 22:36 :32 No 27U 27 Units, Subcutaneo us, DAILY, First dose (after last modificati on) on Thu03/30/25 at 0900, Until Discontinu ed [facility] insulin lispro (human) (HumaLOG U-100) injection 9 Units insulin lispro (human) (HumaLOG U-100) injection 9 Units 03-29 17:00: 00 03-30 22:36 :32 No 9U 9 Units, Subcutaneo us, TID MEALS, First dose (after last modificati on) on Thu03/29/25 at 1200, Until Discontinu ed, Routine [facility] magnesium sulfate in water 4 gram/50 mL (8 %) IV Piggyback 4 g 03-29 12:15: 00 03-29 15:52 :00 No 4g 4 g, Intravenou s, ONCE, 1 dose, On Thu03/29/25 at 0715, [address] [facility] ramelteon (ROZEREM) tablet 8 mg ramelteon (ROZEREM) tablet 8 mg 03-29 08:30: 00 03-30 22:36 :32 No 8mg 8 mg, Oral, QHS, First dose on Thu03/29/25 at 0330, Until Discontinu ed, Routine [facility] dextrometho rphan-guaif enesin (ROBITUSSIN DM) 10-100 mg/5 mL solution 10 mL dextrometho rphan-guaif enesin (ROBITUSSIN DM) 10-100 mg/5 mL solution 10 mL 03-29 08:30: 00 03-30 22:36 :32 No 10mL 10 mL, Oral, Q6HPRN, Starting on Thu03/29/25 at 0330, Until Thu03/30/25 at 1736, Routine, Cough [facility] benzonatate (TESSALON PERLES) capsule 100 mg benzonatate (TESSALON PERLES) capsule 100 mg 03-29 08:21: 29 03-30 22:36 :32 No 100mg 100 mg, Oral, Q8HPRN, Starting on Thu03/29/25 at 0321, Until Thu03/30/25 at 1736, Routine, Cough [facility] insulin lispro (human) (HumaLOG U-100) injection 5 Units insulin lispro (human) (HumaLOG U-100) injection 5 Units 03-29 02:45: 00 03-29 01:58 :00 No 5U 5 Units, Subcutaneo us, ONCE, 1 dose, On Thu03/28/25 at 2145, Routine [facility] Sliding Scale Insulin - Lispro (HumaLOG) [id number] 6-04 02:00: 00 03-29 15:16 :06 No Subcutaneo us, TID MEALS+HS, First dose (after last modificati on) on Thu03/28/25 at 2100, Until Discontinu ed, Routine [facility] lactated ringers IV infusion 500 mL 03-28 23:00: 00 03-28 23:09 :00 No 500mL at 125 mL/hr, 500 mL, Intravenou s, ONCE, 1 dose, On Thu03/28/25 at 1800, Routine [facility] cefTRIAXone (ROCEPHIN) 1,000 mg in sterile water for injection 10 mL IV Push cefTRIAXone (ROCEPHIN) 1,000 mg in sterile water for injection 10 mL IV Push 03-28 20:30: 00 03-30 20:35 :48 No 1000mg 1,000 mg, Intravenou s, Q24H ABX, 5 doses, First dose on Thu03/28/25 at 1530, Last dose on Thu04/01/25 at 1530, 10 mL, Reason for Anti-Infec tive: Documented Infection, Documented Infection Site: Urine, Duration of therapy: Other (days), Other (days): 5 [facility] insulin glargine (LANTUS U-100) injection 22 Units insulin glargine (LANTUS U-100) injection 22 Units 2024-03-28 14:00: 00 03-29 15:12 :24 No 22U 22 Units, Subcutaneo us, DAILY, First dose (after last modificati on) on Thu03/28/25 at 0900, Until Discontinu ed [facility] insulin lispro (human) (HumaLOG U-100) injection 5 Units insulin lispro (human) (HumaLOG U-100) injection 5 Units 03-28 13:00: 00 03-29 15:12 :24 No 5U 5 Units, Subcutaneo us, TID MEALS, First dose (after last modificati on) on Thu03/28/25 at 0800, Until Discontinu ed, Routine [facility] magnesium sulfate in water 2 gram/50 mL (4 %) infusion 2 g magnesium sulfate in water 2 gram/50 mL (4 %) infusion 2 g 03-28 11:45: 00 03-28 12:29 :00 No 2g 2 g, Intravenou s, ONCE, 1 dose, On Thu03/28/25 at 0645, [address] [facility] insulin lispro (human) (HumaLOG U-100) injection 5 Units insulin lispro (human) (HumaLOG U-100) injection 5 Units 03-28 04:16: 00 03-28 04:29 :00 No 5U 5 Units, Subcutaneo us, ONCE, 1 dose, On Thu03/27/25 at 2330, Routine [facility] insulin glargine (LANTUS U-100) injection 18 Units insulin glargine (LANTUS U-100) injection 18 Units 5-0 03-28 00:15: 00 03-28 12:43 :25 No 18U 18 Units, Subcutaneo us, DAILY, First dose (after last modificati on) on Thu03/27/25 at 1915, Until Discontinu ed [facility] enoxaparin (LOVENOX) injection 40 mg enoxaparin (LOVENOX) injection 40 mg 03-27 22:00: 00 03-30 22:36 :32 No 40mg 40 mg, Subcutaneo us, DAILY AT 1700, First dose on Thu03/27/25 at 1700, Until Discontinu ed, Routine [facility] benzonatate (TESSALON PERLES) capsule 100 mg benzonatate (TESSALON PERLES) capsule 100 mg 03-27 18:00: 00 03-29 10:59 :00 No 100mg 100 mg, Oral, Q8H, 6 doses, First dose (after last modificati on) on Thu03/27/25 at 1300, Last dose on Thu03/28/25 at 2200, Routine [facility] dextrometho rphan-guaif enesin (ROBITUSSIN DM) 10-100 mg/5 mL solution 5 mL dextrometho rphan-guaif enesin (ROBITUSSIN DM) 10-100 mg/5 mL solution 5 mL 03-27 18:00: 00 03-29 08:23 :26 No 5mL 5 mL, Oral, Q6H, 8 doses, First dose (after last modificati on) on Thu03/27/25 at 1300, Last dose on Thu03/29/25 at 0600, Routine [facility] azithromyci n (ZITHROMAX) tablet 500 mg azithromyci n (ZITHROMAX) tablet 500 mg 03-27 17:45: 00 03-29 13:46 :00 No 500mg 500 mg, Oral, DAILY, 3 doses, First dose on Thu03/27/25 at 1245, Last dose on Thu03/29/25 at 0900, Routine, Reason for Anti-Infec tive: Empiric Therapy for Suspected Infection, Empiric Therapy Site: Respirator y, Duration of therapy: [address] [facility] isosorbide mononitrate (IMDUR) 24 hr tablet 30 mg isosorbide mononitrate (IMDUR) 24 hr tablet 30 mg 03-27 15:45: 00 Yes 30mg 30 mg, Oral, DAILY, First dose on Thu03/27/25 at 1045, Until Discontinu ed, [facility] dextrometho rphan-guaif enesin (ROBITUSSIN DM) 10-100 mg/5 mL solution 5 mL dextrometho rphan-guaif enesin (ROBITUSSIN DM) 10-100 mg/5 mL solution 5 mL 03-27 15:36: 48 03-27 17:45 :53 No 5mL 5 mL, Oral, Q6HPRN, Starting on Thu03/27/25 at 1036, Until Thu03/27/25 at 1245, Routine, Cough [facility] benzonatate (TESSALON PERLES) capsule 100 mg benzonatate (TESSALON PERLES) capsule 100 mg 03-27 15:36: 20 03-27 17:45 :53 No 100mg 100 mg, Oral, Q8HPRN, Starting on Thu03/27/25 at 1036, Until Thu03/27/25 at 1245, Routine, Cough [facility] rosuvastati n (CRESTOR) tablet 5 mg rosuvastati n (CRESTOR) tablet 5 mg 03-27 14:00: 00 03-30 22:36 :32 No 5mg 5 mg, Oral, DAILY, First dose (after last modificati on) on Thu03/27/25 at 0900, Until Discontinu ed [facility] polyethylen e glycol 3350 powder 17 g polyethylen e glycol 3350 powder 17 g 03-27 14:00: 00 03-30 22:36 :32 No 17g 17 g, Oral, DAILY, First dose on Thu03/27/25 at 0900, Until Discontinu ed, Routine [facility] sennosides- docusate sodium (SENOKOT-S) 8.6-50 mg per tablet 1 tablet sennosides- docusate sodium (SENOKOT-S) 8.6-50 mg per tablet 1 tablet 03-27 14:00: 00 03-30 22:36 :32 No 1{tbl} 1 tablet, Oral, DAILY, First dose on Thu03/27/25 at 0900, Until Discontinu ed, Routine Univers it[facility] spironolact one (ALDACTONE) tablet 12.5 mg spironolact one (ALDACTONE) tablet 12.5 mg 03-27 14:00: 00 03-30 22:36 :32 No 12.5mg 12.5 mg, Oral, DAILY, First dose on Thu03/27/25 at 0900, Until Discontinu ed, Routine [facility] it[facility] metoprolol succinate XL (TOPROL XL) tablet 25 mg metoprolol succinate XL (TOPROL XL) tablet 25 mg 03-27 14:00: 00 03-30 22:36 :32 No 25mg 25 mg, Oral, DAILY, First dose on Thu03/27/25 at 0900, Until Discontinu ed, Routine [facility] it[facility] ezetimibe (ZETIA) tablet 10 mg ezetimibe (ZETIA) tablet 10 mg 03-27 14:00: 00 03-30 22:36 :32 No 10mg 10 mg, Oral, DAILY, First dose on Thu03/27/25 at 0900, Until Discontinu ed, Routine [facility] aspirin EC tablet 81 mg aspirin EC tablet 81 mg 03-27 14:00: 00 03-30 22:36 :32 No 81mg 81 mg, Oral, DAILY, First dose on Thu03/27/25 at 0900, Until Discontinu ed [facility] ticagrelor (BRILINTA) tablet 90 mg ticagrelor (BRILINTA) tablet 90 mg 03-27 13:00: 00 03-30 22:36 :32 No 90mg 90 mg, Oral, BID, First dose on Thu03/27/25 at 0800, Until Discontinu ed, Routine [facility] it[facility] tamsulosin (FLOMAX) capsule 0.4 mg tamsulosin (FLOMAX) capsule 0.4 mg 03-27 13:00: 00 03-30 22:36 :32 No .4mg 0.4 mg, Oral, BID, First dose on Thu03/27/25 at 0800, Until Discontinu ed, Routine [facility] sacubitriL- valsartan (ENTRESTO) 24-26 mg tablet 0.5 tablet sacubitriL- valsartan (ENTRESTO) 24-26 mg tablet 0.5 tablet 03-27 13:00: 00 03-30 22:36 :32 No .5{tbl} 0.5 tablet, Oral, BID, First dose on Thu03/27/25 at 0800, Until Discontinu ed, Routine [facility] insulin lispro (human) (HumaLOG U-100) injection 4 Units insulin lispro (human) (HumaLOG U-100) injection 4 Units 03-27 13:00: 00 03-28 12:43 :25 No 4U 4 Units, Subcutaneo us, TID MEALS, First dose on Thu03/27/25 at 0800, Until Discontinu ed, Routine [facility] magnesium sulfate in water 4 gram/50 mL (8 %) IV Piggyback 4 g magnesium sulfate in water 4 gram/50 mL (8 %) IV Piggyback 4 g 03-27 07:45: 00 03-27 09:13 :00 No 4g 4 g, Intravenou s, ONCE, 1 dose, On Thu03/27/25 at 0245, [address] [facility] glucagon HCL injection 1 mg 03-27 05:45: 53 03-30 22:36 :32 No 1mg 1 mg, Intramuscu lar, PRN, Starting on Thu03/27/25 at 0045, Until Jennifer 03/30/25 at 1736, DAVID, Low blood sugar, Blood Glucose < or = 70 mg/dL and patient is NPO, unable to swallow or has mental changes. [facility] dextrose 50 % in water (D50W) injection 25 mL 03-27 05:45: 53 03-30 22:36 :32 No 25mL 25 mL, Slow IV Push, PRN, Starting on Thu03/27/25 at 0045, Until Jennifer 03/30/25 at 1736, DAVID, Blood Glucose < or = 70 mg/dL and patient is NPO, unable to swallow or has mental status changes. [facility] acetaminoph en (TYLENOL) tablet 650 mg acetaminoph en (TYLENOL) tablet 650 mg 03-27 05:44: 55 03-30 22:36 :32 No 650mg 650 mg, Oral, Q6HPRN, Starting on Thu03/27/25 at 0044, Until Jennifer 03/30/25 at 1736, Routine, Pain (scale 1-3) [facility] nitroglycer in (NITROSTAT) sublingual tablet 0.4 mg 03-27 05:41: 56 03-30 22:36 :[address] [facility] metFORMIN 500 mg tablet 03-24 00:00: 00 Yes [id number] 500mg Take 1 tablet by mouth in the morning and 1 tablet in the evening. Take with meals. [facility] sacubitriL- valsartan (ENTRESTO) 24-26 mg tablet 02-22 00:00: 00 Yes [id number] .5{tbl} Take 0.5 tablets by mouth in the morning and 0.5 tablets in the evening. [facility] spironolact one 25 mg tablet 02-22 00:00: 00 Yes [id number] 12.5mg Take 0.5 tablets by mouth in the morning. [facility] ticagrelor 90 mg tablet 02-22 00:00: 00 Yes [id number] 90mg Take 1 tablet by mouth in the morning and 1 tablet in the evening. [facility] nitroglycer in 0.4 mg sublingual tablet 02-22 00:00: [address] 1 tablet under the tongue every 5 (five) minutes as needed for Chest pain. [facility] tamsulosin 0.4 mg 24 hr capsule 02-20 00:00: 00 02-20 00:00 :00 No [id number] 9102 .4mg Take 1 capsule by mouth in the morning and 1 capsule in the evening. [facility] rosuvastati n (CRESTOR) tablet 5 mg rosuvastati n (CRESTOR) tablet 5 mg 02-14 22:00: 00 02-15 00:25 :07 No 5mg 5 mg, Oral, QPM, First dose (after last modificati on) on Thu02/14/25 at 1700, Until Discontinu ed [facility] Potassium Bicarb-Citr ic Acid (EFFER-K) effervescen t tablet 40 mEq Potassium Bicarb-Citr ic Acid (EFFER-K) effervescen t tablet 40 mEq 02-14 14:00: 00 02-15 00:25 :07 No 40meq 40 mEq, Oral, DAILY, First dose on Thu02/14/25 at 0900, Until Discontinu ed, Routine [facility] magnesium sulfate in water 4 gram/50 mL (8 %) IV Piggyback 4 g magnesium sulfate in water 4 gram/50 mL (8 %) IV Piggyback 4 g 02-14 13:15: 00 02-14 16:14 :00 No 4g 4 g, IV Piggyback, at 25 mL/hr Administer over 120 Minutes, ONCE, 1 dose, On Thu02/14/25 at 0815, Routine [facility] Sliding Scale Insulin - Lispro (HumaLOG) [id number] 1576-0 4-22 04:30: 00 02-15 00:25 :07 No Subcutaneo us, TID MEALS+HS, First dose on Thu02/13/25 at 2330, Until Discontinu ed, Routine [facility] glucagon HCL injection 1 mg 02-14 04:15: 20 02-15 00:25 :07 No 1mg 1 mg, Intramuscu lar, PRN, Starting on Thu02/13/25 at 2315, Until Thu02/14/25 at 1925, DAVID, Low blood sugar, Blood Glucose < or = 70 mg/dL and patient is NPO, unable to swallow or has mental changes. [facility] dextrose 50 % in water (D50W) injection 25 mL 02-14 04:15: 20 02-15 00:25 :07 No 25mL 25 mL, Slow IV Push, PRN, Starting on Thu02/13/25 at 2315, Until Thu02/14/25 at 1925, DAVID, Blood Glucose < or = 70 mg/dL and patient is NPO, unable to swallow or has mental status changes. [facility] ticagrelor (BRILINTA) tablet 90 mg ticagrelor (BRILINTA) tablet 90 mg 02-14 01:00: 00 Yes 90mg 90 mg, Oral, BID, First dose on Thu02/13/25 at 2000, Until Discontinu ed, Routine, CV Recovery to Floor [facility] evolocumab 140 mg/mL evolocumab 140 mg/mL 02-14 00:00: 00 05-25 00:00 :00 No [id number] 140mg inject 1 mL under the skin every 2 (two) weeks. [facility] ticagrelor 90 mg tablet ticagrelor 90 mg tablet 02-14 00:00: 00 02-22 00:00 :00 No [id number] 90mg Take 1 tablet by mouth in the morning and 1 tablet in the evening. [facility] spironolact one 25 mg tablet spironolact one 25 mg tablet 02-14 00:00: 00 02-22 00:00 :00 No [id number] 12.5mg Take 0.5 tablets by mouth in the morning for [address] [facility] sacubitriL- valsartan (ENTRESTO) 24-26 mg tablet sacubitriL- valsartan (ENTRESTO) 24-26 mg tablet 02-14 00:00: 00 02-22 00:00 :00 No [id number] 1{tbl} Take 1 tablet by mouth in the morning and 1 tablet in the evening. Do all this for [address] [facility] dapaglifloz in propanediol (FARXIGA) 10 mg tablet dapaglifloz in propanediol (FARXIGA) 10 mg tablet 02-14 00:00: 00 02-14 00:00 :00 No [id number] 10mg Take 1 tablet by mouth in the morning for [address] [facility] iopamidol (ISOVUE 370-500 mL) injection 02-13 21:18: 14 02-13 21:32 :52 No ONCE INTRA PROCEDURE, Starting on Thu02/13/25 at 1618, Until Thu02/13/25 at 1632, Routine, CV Intraproce dure [facility] ticagrelor (BRILINTA) tablet 02-13 21:17: 26 02-13 21:32 :52 No ONCE INTRA PROCEDURE, Starting on Thu02/13/25 at 1617, Until Thu02/13/25 at 1632, Routine, CV Intraproce dure [facility] tirofiban (AGGRASTAT CONCENTRATE ) injection 02-13 21:11: 27 02-13 21:32 :52 No ONCE INTRA PROCEDURE, Starting on Thu02/13/25 at 1611, Until Thu02/13/25 at 1632, Routine, CV Intraproce dure 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 heparin 1,000 unit/mL injection 02-13 20:54: 38 02-13 21:32 :52 No ONCE INTRA PROCEDURE, Starting on Thu02/13/25 at 1554, Until Thu02/13/25 at 1632, Routine, CV Intraproce dure [facility] FENTanyl (PF) (SUBLIMAZE) injection 02-13 20:30: 23 02-13 21:32 :52 No ONCE INTRA PROCEDURE, Starting on Thu02/13/25 at 1530, Until Thu02/13/25 at 1632, Routine, CV Intraproce dure [facility] midazolam (VERSED) 1 mg/mL injection 02-13 20:29: 37 02-13 21:32 :52 No ONCE INTRA PROCEDURE, Starting on Thu02/13/25 at 1529, Until Thu02/13/25 at 1632, Routine, CV Intraproce dure [facility] lidocaine 1% (PF) (XYLOCAINE) injection 02-13 20:24: 20 02-13 21:32 :52 No ONCE INTRA PROCEDURE, Starting on Thu02/13/25 at 1524, Until Thu02/13/25 at 1632, Routine, CV Intraproce dure [facility] perflutren protein-A microsphr (OPTISON) injection 3 mL 02-13 16:45: 00 02-13 16:45 :00 No [id number] 3mL 3 mL, IV Push, ONCE, 1 dose, On Thu02/13/25 at 1145, Routine [facility] metoprolol succinate XL (TOPROL XL) tablet 25 mg metoprolol succinate XL (TOPROL XL) tablet 25 mg 02-13 14:00: 00 02-15 00:25 :06 No 25mg 25 mg, Oral, DAILY, First dose on Thu02/13/25 at 0900, Until Discontinu ed, Routine [facility] insulin glargine (LANTUS U-100) injection 25 Units insulin glargine (LANTUS U-100) injection 25 Units 02-13 14:00: 00 02-15 00:25 :06 No 25U 25 Units, Subcutaneo us, DAILY, First dose on Thu02/13/25 at 0900, Until Discontinu ed [facility] ezetimibe (ZETIA) tablet 10 mg ezetimibe (ZETIA) tablet 10 mg 02-13 14:00: 02-15 00:25 :06 No 10mg 10 mg, Oral, DAILY, First dose on Thu02/13/25 at 0900, Until Discontinu ed, Routine [facility] aspirin chewable tablet 81 mg aspirin chewable tablet 81 mg 02-13 14:00: 00 02-15 00:25 :06 No 81mg 81 mg, Oral, DAILY, First dose on Thu02/13/25 at 0900, Until Discontinu ed [facility] insulin lispro (human) (HumaLOG U-100) injection 3 Units insulin lispro (human) (HumaLOG U-100) injection 3 Units 02-13 12:30: 00 02-15 00:25 :06 No 3U 3 Units, Subcutaneo us, TIDAC, First dose on Thu02/13/25 at 0730, Until Discontinu ed, Routine [facility] magnesium sulfate in water 2 gram/50 mL (4 %) infusion 2 g magnesium sulfate in water 2 gram/50 mL (4 %) infusion 2 g 02-13 10:15: 00 02-13 10:55 :00 No 2g 2 g, IV Piggyback, Administer over 60 Minutes, ONCE, 1 dose, On Thu02/13/25 at 0515, Routine [facility] magnesium sulfate in water 2 gram/50 mL (4 %) infusion 2 g magnesium sulfate in water 2 gram/50 mL (4 %) infusion 2 g 02-13 03:45: 00 02-13 04:12 :00 No 2g 2 g, IV Piggyback, Administer over 60 Minutes, ONCE, 1 dose, On Thu02/12/25 at 2245, Routine [facility] KCL 20 mEq/15 mL solution 40 mEq KCL 20 mEq/15 mL solution 40 mEq 02-13 03:45: 00 02-13 03:07 :00 No 40meq 40 mEq, Oral, ONCE, 1 dose, On Thu02/12/25 at 2245, Routine [facility] aspirin E.C. (ECOTRIN) tablet 325 mg aspirin E.C. (ECOTRIN) tablet 325 mg 02-13 02:30: 00 02-13 02:11 :00 No 325mg 325 mg, Oral, ONCE NOW, 1 dose, On Thu02/12/25 at 2130, DAVID [facility] tamsulosin (FLOMAX) capsule 0.4 mg tamsulosin (FLOMAX) capsule 0.4 mg 02-13 02:15: 00 02-15 00:25 :06 No .4mg 0.4 mg, Oral, BID, First dose (after last modificati on) on Thu02/12/25 at 211, Until Discontinu ed, Routine [facility] rosuvastati n (CRESTOR) tablet 5 mg rosuvastati n (CRESTOR) tablet 5 mg 02-13 01:45: 00 02-14 12:56 :46 No 5mg 5 mg, Oral, DAILY, First dose on [place] 02/12/25 at 2044, Until Discontinu ed [facility] heparin 25,000 Units/250 mL (Premixed Bag) in [...] ant therapy. Range, Dosing and Testing: FOR [facility], AND [facility] ONLY - aPTT < 35: Bolus 5000 [...] once therapeuti c levels are reached. FOR [facility] ONLY - aPTT < 40: Bolus [...] INITIAL BOLUS OR INITIAL INFUSION RATE. [facility] HEPARIN SODIUM (PORCINE) 1,000 UNIT/ML BOLUS ACS ORDER SET [id number] 4-21 01:45: 00 02-13 02:07 :00 No 4000U 4,000 Units, IV Push, ONCE, 1 dose, On 02/12/25 at 2045, DAVID [facility] heparin (1,000 unit/mL, 10 mL vial) for Rebolusing 02-13 01:38: 03 02-15 00:25 :[address] [facility] nitroglycer in (NITROSTAT) sublingual tablet 0.4 mg nitroglycer in (NITROSTAT) sublingual tablet 0.4 mg 02-13 01:01: 32 02-13 01:54 :00 No .4mg 0.4 mg, Sublingual , Q5MIN PRN, 3 doses, Starting on Thu02/12/25 at 2000, Until Thu02/12/25 at 2053, Routine, Chest pain [facility] acetaminoph en (TYLENOL) tablet 650 mg 02-13 00:34: 58 02-15 00:25 :06 No 650mg [facility] aspirin chewable tablet 81 mg 02-07 14:00: 00 02-06 23:17 :50 No 81mg 81 mg, Oral, DAILY, First dose on Thu02/07/25 at 0900, Until Discontinu ed, [facility] enoxaparin (LOVENOX) injection 40 mg 02-06 22:00: 00 02-06 23:17 :50 No 40mg 40 mg, Subcutaneo us, DAILY, First dose on Thu02/06/25 at 1700, Until Discontinu ed, Routine [facility] perflutren protein-A microsphr (OPTISON) injection 3 mL 02-06 20:15: 00 02-06 20:15 :00 No [id number] 3mL 3 mL, IV Push, ONCE, 1 dose, On Thu02/06/25 at 1515, Routine [facility] Sliding Scale Insulin - Lispro (HumaLOG) [id number] 7419-0 4-14 17:00: 00 02-06 23:17 :50 No Subcutaneo us, TID MEALS+HS, First dose on Thu02/06/25 at 1200, Until Discontinu ed, [facility]ine [facility] glucagon HCL injection 1 mg 02-06 16:17: 28 02-06 23:17 :50 No 1mg 1 mg, Intramuscu lar, PRN, Starting on Thu02/06/25 at 1117, Until Thu02/06/25 at 1817, DAVID, Low blood sugar, Blood Glucose < or = 70 mg/dL and patient is NPO, unable to swallow or has mental changes. [facility] dextrose 50 % in water (D50W) injection 25 mL 02-06 16:17: 28 02-06 23:17 :50 No 25mL 25 mL, Slow IV Push, PRN, Starting on Thu02/06/25 at 1117, Until Thu02/06/25 at 1817, DAVID, Blood Glucose < or = 70 mg/dL and patient is NPO, unable to swallow or has mental status changes. [facility] nitroglycer in (NITROSTAT) sublingual tablet 0.4 mg 02-06 16:12: 29 02-06 23:17 :50 No .4mg 0.4 mg, Sublingual , Q5MIN PRN, Starting on Thu02/06/25 at 1112, Until Thu02/06/25 at 1817, Routine, Chest pain [facility] acetaminoph en (TYLENOL) tablet 650 mg 02-06 16:11: 00 02-06 23:17 :50 No 650mg 650 mg, Oral, Q6HPRN, Starting on Thu02/06/25 at 1111, Until Thu02/06/25 at 1817, Routine, Pain (scale 1-3) [facility] aspirin tablet 325 mg 02-06 15:45: 00 02-06 14:50 :00 No [id number] 325mg 325 mg, Oral, ONCE, 1 dose, On Thu02/06/25 at 1045, Routine [facility] nitroglycer in (NITROSTAT) sublingual tablet 0.4 mg 02-06 15:45: 00 02-06 14:48 :00 No [id number] .4mg 0.4 mg, Sublingual , ONCE, 1 dose, On Thu02/06/25 at 1045, Routine [facility] Insulin Glargine 100 unit/mL (3 mL) injection 02-06 00:00: 00 04-19 00:00 :00 No [id number] 22U inject 22 Units under the skin at bedtime. [facility] insulin lispro (HUMALOG KWIKPEN INSULIN) 100 unit/mL pen injector 08 00:00: 00 Yes [id number] 5U inject 5 Units under the skin in the morning and 5 Units at noon and 5 Units in the evening. inject before meals. [facility] Walker (ULTRA-LIGH T ROLLATOR) [facility] 403 00:00: 00 Yes [id number] R55/W19.XX XS/M79.604 /R06.02/I5 0.32/I51.7 /E11.3511: Use daily for ambulation /fall precaution (brand pending insurance approval) [facility] Walker (ULTRA-LIGH T ROLLATOR) [facility] 01-26 00:00: 00 01-26 00:00 :00 No [id number] R55/W19.XX XS/M79.604 /R06.02/I5 0.32/I51.7 /E11.3511: Use daily for ambulation /fall precaution (brand pending insurance approval) [facility] flash glucose scanning reader (FREESTYLE JOSE 14 DAY READER) [facility] 01-15 00:00: 00 Yes [id number] Take 1 Box in the morning and 1 Box in the evening. E11.65: check home blood glucose BID (brand approval by insurance) [facility] docusate 100 mg capsule 18 00:00: 00 01-26 04:59 :00 No [id number] 100mg Take 1 capsule by mouth in the morning for [address] [facility] cephALEXin 500 mg capsule 18 00:00: 00 01-18 04:59 :00 No [id number] 500mg Take 1 capsule by mouth 4 (four) times daily for [address] [facility] ezetimibe 10 mg tablet 3-06 00:00: 00 Yes [id number] 10mg Take 1 tablet by mouth in the morning. [facility] simethicone (GAS RELIEF (SIMETHICON E)) 40 mg/0.6 mL drops 12-28 14:57: 00 12-28 15:46 :53 No PRN, Starting on Thu12/28/24 at 0857, Until Thu12/28/24 at 0946, Routine, Intra-op [facility] lactated ringers IV infusion 1,000 mL 12-28 14:45: 00 12-28 14:43 :00 No 1000mL at 42 mL/hr, 1,000 mL, IV Infusion, ONCE, 1 dose, On Thu12/28/24 at 0845, Routine, DSU Pre-op [facility] metFORMIN 500 mg tablet 12-26 00:00: 00 03-24 00:00 :00 No [id number] 500mg Take 1 tablet by mouth in the morning and 1 tablet in the evening. Take with meals. [facility] tamsulosin 0.4 mg 24 hr capsule 12-20 00:00: 00 02-20 00:00 :00 No [id number] 9102 .4mg Take 1 capsule by mouth in the morning. [facility] metoprolol succinate XL 25 mg 24 hr tablet 18 00:00: 00 Yes [id number] 25mg Take 1 tablet by mouth in the morning. [facility] rosuvastati n 5 mg CpSP 11-21 00:00: 00 04-20 00:00 :00 No [id number] 5mg Take 5 mg by mouth every evening. [facility] levoFLOXaci n (LEVAQUIN) tablet 500 mg 11-16 23:15: 00 11-16 23:29 :00 No 500mg 500 mg, Oral, ONCE, 1 dose, On Thu11/16/24 at 1715, DAVID, Reason for Anti-Infec tive: Documented Infection, Documented Infection Site: Urine, Duration of Therapy: Once (ED) [facility] NaCl 0.9% (NS) bolus infusion 1,000 mL 11-16 22:30: 11-17 00:08 :00 No 1000mL at 999 mL/hr, 1,000 mL, IV Infusion, ONCE, 1 dose, On Thu11/16/24 at 1630, DAVID [facility] ondansetron 4 mg tablet 11-16 00:00: 00 12-28 00:00 :00 No [id number] 1 or 2 tablets every 8 hours as needed for nausea [facility] levoFLOXaci n 500 mg tablet 11-16 00:00: 00 11-27 05:59 :00 No [id number] 500mg Take 1 tablet by mouth every 24 (twenty-fo ur) hours for [address] [facility] peg-electro lyte soln 236-22.74-6 .74 -5.86 gram solution 11-11 00:00: 00 11-12 05:59 :00 No [id number] 4000mL Take 4,000 mL by mouth once now for [address] [facility] insulin glargine 100 unit/mL (3 mL) inps 11-09 00:00: 00 02-06 00:00 :00 No [id number] 22U inject 22 Units under the skin every morning. [facility] insulin lispro, human, (HUMALOG U-100 INSULIN) 100 unit/mL injection 11-09 00:00: 00 01-31 00:00 :00 No [id number] 5U inject 5 Units under the skin 3 (three) times daily as needed for Other (hyperglyc emia). [facility] coenzyme [id number] 100-5 mg-unit capsule 2023-10 12:56: 51 Yes 1{capsu le} Take 1 capsule by mouth in the morning. [facility] Magnesium Oxide 420 mg Tab 2023-10 12:56: 51 Yes 420mg Take 1 tablet by mouth in the morning. [facility] cholecalcif sid, vitamin D3, 25 mcg (1,000 unit) tablet 2023-10 12:56: 51 Yes 1000U Take 1 tablet by mouth in the morning. [facility] Miscellaneo us Medical Supply Kit 2023-10 00:00: 00 Yes [id number] Shower head w a hose shower stool 3 wheeled electric scooter Use as directed [facility] triamcinolo ne 0.5 % cream 2023-10 15:08: 27 Yes .1% Apply 0.1 % to area(s) as needed. [facility] dulaglutide (TRULICITY) 1.5 mg/0.5 mL PnIj 2023-10 14:52: 36 06-16 00:00 :00 No 1.5mg inject 1 Pen under the skin weekly. [facility] metFORMIN 500 mg tablet 2023-10 14:52: 36 12-26 00:00 :00 No 500mg Take 1 tablet by mouth in the morning and 1 tablet in the evening. Take with meals. [facility] rosuvastati n 5 mg CpSP 2023-10 14:52: 36 11-21 00:00 :00 No 5mg Take 5 mg by mouth every evening. [facility] glipiZIDE XL 5 mg 24 hr tablet 2023-10 00:00: 00 09-07 00:00 :00 No [id number] 5mg Take 1 tablet by mouth in the morning and 1 tablet in the evening. [facility] aspirin chewable tablet 81 mg 2023-10 14:00: 00 08-26 18:54 :27 No 81mg 81 mg, Oral, DAILY, First dose (after last modificati on) on Thu08/27/24 at 0900, Until Discontinu ed, Routine [facility] insulin glargine (LANTUS U-100) injection 24 Units 2023-10 14:00: 00 08-26 18:54 :27 No 24U 24 Units, Subcutaneo us, DAILY, First dose on Thu08/26/24 at 0900, Until Discontinu ed, Routine [facility] metoprolol succinate XL 25 mg 24 hr tablet 2023-10 00:00: 00 12-12 00:00 :00 No 25mg Take 1 tablet by mouth every morning. [facility] ciprofloxac in HCl 500 mg tablet 2023-10 00:00: 00 09-01 05:59 :00 No [id number] 500mg Take 1 tablet by mouth every 12 (twelve) hours for [address] [facility] insulin glargine (LANTUS U-100) injection 24 Units 2023-10 20:45: 00 08-25 20:00 :00 No 24U 24 Units, Subcutaneo us, ONCE, 1 dose, On Thu08/25/24 at 1545, Routine [facility] FENTanyl (PF) (SUBLIMAZE) injection 25 mcg 2023-10 16:46: 25 08-25 17:14 :00 No 25ug 25 mcg, Slow IV Push, Q5MIN PRN, 4 doses, Starting on Jennifer 08/25/24 at 1146, Until Jennifer 08/25/24 at 1214, Routine, Pain Scale 4-6, PACU [facility] lidocaine (XYLOCAINE) 2 % jelly URO-JET 2023-10 16:26: 00 08-25 16:46 :14 No PRN, Starting on Jennifer 08/25/24 at 1126, Until Jennifer 08/25/24 at 1146, Routine, Intra-op [facility] povidone-io dine (BETADINE) 10 % solution 2023-10 15:38: 00 08-25 16:46 :14 No PRN, Starting on Jennifer 08/25/24 at 1038, Until Jennifer 08/25/24 at 1146, Routine, Intra-op [facility] levoFLOXaci n in D5W (LEVAQUIN) 500 mg/100 mL Piggyback 500 mg 2023-10 15:15: 00 08-25 15:36 :00 No 500mg 500 mg, IV Piggyback, ONCE, 1 dose, On Thu08/25/24 at 1015, Administer over 60 Minutes, 100 mL, DSU Pre-op, Reason for Anti-Infec tive: Surgical Prophylaxi s, Surgical Prophylaxi s: Other (see Comments), Duration of therapy: within [address] [facility] sodium chloride 0.9 % irrigation solution 2023-10 15:15: 00 08-25 16:46 :14 No PRN, Starting on Thu08/25/24 at 1015, Until Thu08/25/24 at 1146, Intra-op [facility] metoprolol succinate XL (TOPROL XL) tablet 25 mg 2023-10 14:00: 00 08-26 18:54 :27 No 25mg 25 mg, Oral, DAILY, First dose on Thu08/25/24 at 0900, Until Discontinu ed, Routine [facility] rosuvastati n (CRESTOR) tablet 5 mg 2023-10 14:00: 00 08-26 18:54 :[address] [facility] lactated ringers IV infusion 500 mL 2023-10 06:00: 00 08-25 19:57 :00 No 500mL at 50 mL/hr, 500 mL, IV Infusion, ONCE, 1 dose, On Thu08/25/24 at 0100, STAT [facility] diphenhydrA MINE (BENADRYL) tablet 25 mg 2023-10 04:54: 03 08-26 18:54 :27 No 25mg 25 mg, Oral, Q4HPRN, Starting on Thu08/24/24 at 2354, Until Thu08/26/24 at 1354, Routine, Sleep [facility] Sliding Scale Insulin - Lispro (HumaLOG) 2023-10 02:00: 00 08-26 18:54 :26 No Subcutaneo us, TID MEALS+HS, First dose on Thu08/24/24 at 2100, Until Discontinu ed, Routine [facility] glucagon HCL injection 1 mg 2023-10 01:10: 06 08-26 18:54 :[address] [facility] dextrose 50 % in water (D50W) injection 25 mL 2023-10 01:10: 06 08-26 18:54 :[address] [facility] ondansetron (ZOFRAN (PF)) injection 4 mg 2023-10 01:10: 00 08-26 18:54 :26 No 4mg 4 mg, Slow IV Push, Q6HPRN, Starting on Thu08/24/24 at 2009, Until Thu08/26/24 at 1354, Routine, Nausea and Vomiting (N/V) [facility] HYDROcodone -acetaminop hen (NORCO 5) tablet 1 tablet 2023-10 01:09: 51 08-26 18:54 :26 No 1{tbl} 1 tablet, Oral, Q6HPRN, Starting on Thu08/24/24 at 2008, Until Thu08/26/24 at 1354, Routine, Pain (scale 4-6) [facility] acetaminoph en (TYLENOL) tablet 650 mg 2023-10 01:09: 46 08-26 18:54 :[address] [facility] ceFEPIme (MAXIPIME) 2,000 mg in NaCl 0.9% (NS) 100 mL MINI-BAG 2023-10 20:00: 00 08-23 20:58 :00 No 2000mg 2,000 mg, IV Piggyback, ONCE, 1 dose, On Thu08/23/24 at 1500, Administer over 30 Minutes, 100 mL, Reason for Anti-Infec tive: Documented Infection, Documented Infection Site: Urine, Duration of Therapy: Once (ED) [facility] NaCl 0.9% (NS) bolus infusion 500 mL 2023-10 18:30: 00 08-23 19:37 :00 No 500mL at 999 mL/hr, 500 mL, IV Infusion, ONCE, 1 dose, On Thu08/23/24 at 1330, STAT [facility] rosuvastati n (CRESTOR) 5 mg tablet 2023-10 00:00: 00 08-26 00:00 :00 No [id number] 5mg Take 1 tablet by mouth in the morning. [facility] ciprofloxac in HCl 500 mg tablet 2023-10 00:00: 00 08-26 00:00 :00 No [id number] 500mg Take 1 tablet by mouth every 12 (twelve) hours for [address] [facility] cefTRIAXone (ROCEPHIN) 1,000 mg in water for injection, sterile 10 mL IV Push 2023-10 21:15: 00 08-15 20:55 :00 No 1000mg 1,000 mg, Intravenou s, ONCE, 1 dose, On Thu08/15/24 at 1615, 10 mL, Reason for Anti-Infec tive: Empiric Therapy for Suspected Infection, Empiric Therapy Site: Urine, Duration of therapy: Once (ED) [facility] cephALEXin 500 mg capsule 2023-10 00:00: 00 08-21 00:00 :00 No [id number] 500mg Take 1 capsule by mouth 4 (four) times daily for [address] [facility] iopamidol (ISOVUE 370-500 mL) injection 120 mL 2023-10 14:46: 00 08-09 14:54 :00 No [id number] 120mL 120 mL, Intravenou s, ONCE, 1 dose, On Thu08/09/24 at 1000, Routine [facility] gentamicin injection 160 mg 2023-10 0 14:45: 00 08-02 14:42 :00 No [id number] 160mg 160 mg, Intramuscu lar, ONCE, 1 dose, On Thu08/02/24 at 0945, DAVID, Reason for Anti-Infec tive: Surgical Prophylaxi s, Surgical Prophylaxi s: Genitourin audrey, Duration of therapy: within [address] [facility] aspirin 81 mg chewable tablet 9-16 00:00: 00 08-26 00:00 :00 No [id number] 81mg Take 1 tablet by mouth in the morning. [facility] gabapentin (NEURONTIN) capsule 300 mg 07-10 19:00: 00 Yes 300mg 300 mg, Oral, TID, First dose on Thu07/10/24 at 1400, Until Discontinu ed, [facility]su[facility] (CRESTOR[facility] tablet 5 mg 07-10 02:00: 00 Yes 5mg 5 mg, Oral, QHS, First dose (after last modificati on) on Thu07/09/24 at 2100, Until Discontinu ed, Routine [facility] insulin aspart U-100 (NOVOLOG FLEXPEN U-100 INSULIN) 100 unit/mL (3 mL) injection 07-10 00:00: 00 08-26 00:00 :00 No [id number] 10U inject 10 Units under the skin in the morning and 10 Units at noon and 10 Units in the evening. inject before meals. Inject 5 to 10 units three times a day with meals [facility] gabapentin 300 mg capsule 07-10 00:00: 00 08-23 00:00 :00 No [id number] 300mg Take 1 capsule by mouth in the morning and 1 capsule at noon and 1 capsule in the evening. [facility] aspirin chewable tablet 81 mg 07-08 22:45: 00 Yes 81mg 81 mg, Oral, DAILY, First dose on Thu07/08/24 at 1745, Until Discontinu ed, Routine [facility] perflutren lipid microsphere s (DEFINITY) injection 2 mL 07-08 21:00: 00 07-08 21:00 :00 No [id number] 2mL 2 mL, IV Push, ONCE, 1 dose, On Thu07/08/24 at 1600, Routine [facility] Saline Bubble Study 07-08 20:46: 48 Yes [id number] 6mL 6 mL, Injection, SEE-INSTRU CTIONS, Starting on Thu07/08/24 at 1546, Until Discontinu ed, [facility] 07-08 20:46: 45 Yes [id number] 6mL 6 mL, Injection, SEE-INSTRU CTIONS, Starting on Thu07/08/24 at 1546, Until Discontinu ed, Routine [facility] pioglitazon e (ACTOS) tablet 30 mg 07-08 14:00: 00 Yes 30mg 30 mg, Oral, DAILY, First dose on Thu07/08/24 at 0900, Until Discontinu ed, Routine [facility] enoxaparin (LOVENOX) injection 40 mg 07-08 14:00: 00 Yes 40mg 40 mg, Subcutaneo us, DAILY, First dose on Thu07/08/24 at 0900, Until Discontinu ed, Routine [facility] metoprolol succinate XL (TOPROL XL) tablet 25 mg 07-08 14:00: 00 Yes 25mg 25 mg, Oral, DAILY, First dose on Thu07/08/24 at 0900, Until Discontinu ed, [facility] insulin glargine (LANTUS U-100) injection 25 Units 07-08 14:00: 00 Yes 25U 25 Units, Subcutaneo us, DAILY, First dose on Thu07/08/24 at 0900, Until Discontinu ed [facility] Sliding Scale Insulin - Lispro (HumaLOG) 07-08 13:00: 00 Yes Subcutaneo us, TID MEALS+HS, First dose on Thu07/08/24 at 0800, Until Discontinu ed, [facility] rosuvast[facility] n (CRESTOR) tablet 5 mg 07-08 02:15: 00 07-10 00:55 :39 No 5mg 5 mg, Oral, DAILY, First dose (after last modificati on) on Thu07/07/24 at 2115, Until Discontinu ed, Routine [facility] metFORMIN (GLUCOPHAGE ) tablet 500 mg 07-08 01:00: 00 07-09 14:05 :13 No 500mg 500 mg, Oral, BID, First dose on Thu07/07/24 at 2000, Until Discontinu ed, Routine [facility] iopamidol (ISOVUE 370-500 mL) injection 80 mL 07-08 01:00: 00 07-08 01:00 :00 No [id number] 80mL 80 mL, Intravenou s, ONCE, 1 dose, On Thu07/07/24 at 2000, Routine [facility] aspirin chewable tablet 81 mg 07-07 22:45: 00 07-08 00:39 :00 No 81mg 81 mg, Oral, ONCE NOW, 1 dose, On Thu07/07/24 at 1745, STAT [facility] glucagon HCL injection 1 mg 07-07 22:40: [address] [facility] dextrose 50 % in water (D50W) injection 25 mL 07-07 22:40: [address] [facility] labetaloL (NORMODYNE) 5 mg/mL injection 10 mg 07-07 22:38: [address] [facility] metoprolol succinate XL 25 mg 24 hr tablet 06-20 00:00: 00 08-26 00:00 :00 No [id number] 25mg Take 1 tablet by mouth in the morning. [facility] pioglitazon e (ACTOS) 30 mg tablet 06-13 00:00: 00 07-25 00:00 :00 No [id number] 30mg Take 1 tablet by mouth in the morning. [facility] glipiZIDE XL 5 mg 24 hr tablet 06-09 00:00: 00 07-10 00:00 :00 No [id number] 5mg Take 1 tablet by mouth daily with breakfast. [facility] BD ULTRAFINE III MINI PEN 31 gauge x 3/16" Ndle 06-06 00:00: 00 08-26 00:00 :00 No USE DIRECTED [address] [facility] dulaglutide (TRULICITY) 1.5 mg/0.5 mL PnIj 06-06 00:00: 00 08-26 00:00 :00 No [id number] INJECT [address] W[address] [facility] triamcinolo ne acetonide 0.1 % cream 06-02 00:00: 08-26 00:00 :00 No [id number] Apply to area(s) 2 (two) times daily. [facility] metoprolol succinate XL 25 mg 24 hr tablet 05-30 00:00: 06-20 00:00 :00 No [id number] 25mg Take 1 tablet by mouth in the morning. [facility] Insulin Glargine (LANTUS SOLOSTAR U-100 INSULIN) 100 unit/mL (3 mL) injection 05-26 00:00: 08-26 00:00 :00 No [id number] 24U inject 24 Units under the skin every morning. Taking 28-30 U daily Indication s: Patient recently has been taking [address] [facility] rosuvastati n (CRESTOR) 5 mg tablet 05-26 00:00: 08-22 00:00 :00 No [id number] 5mg Take 1 tablet by mouth in the morning. [facility] METFORMIN 500 mg tablet 05-23 00:00: 00 08-26 00:00 :00 No [id number] TAKE 1 TABLET BY MOUTH IN THE MORNING AND IN THE EVENING WITH MEALS [facility] dulaglutide (TRULICITY) 1.5 mg/0.5 mL PnIj 04-14 00:00: 00 06-06 00:00 :00 No [id number] 1.5mg inject 1 Pen under the skin weekly. [facility] rosuvastati n (CRESTOR) 20 mg tablet 04-04 00:00: 00 05-26 00:00 :00 No [id number] 20mg Take 1 tablet by mouth in the morning. [facility] aspirin 81 mg chewable tablet 6-04 14:01: 42 07-06 00:00 :00 No 81mg Take 1 tablet by mouth in the morning. [facility] aspirin 81 mg chewable tablet 03-24 12:31: 01 Yes 81mg Take 1 tablet by mouth in the morning. [facility] docosahexae noic acid/epa (FISH OIL ORAL) 03-24 12:: 12-28 00:00 :00 No 1{tbl} Take 1 tablet by mouth in the morning. [facility] Magnesium Oxide 500 mg Cap 03-24 12:31: 08-26 00:00 :00 No Take by mouth. [facility] HYDROcodone -acetaminop hen 5-325 [...] 2215, Until Discontinu ed, Routine [facility] rosuvastati n (CRESTOR) tablet 10 mg 03-23 02:00: 00 Yes 10mg 10 mg, Oral, QHS, First dose on Thu03/22/24 at 2100, Until Discontinu ed, Routine [facility] heparin (porcine) injection 5,000 Units 03-22 19:00: 00 Yes 5000U 5,000 Units, Subcutaneo us, Q8H, First dose on Thu03/22/24 at 1400, Until Discontinu ed, Routine [facility] insulin glargine (LANTUS U-100) injection 30 Units 03-22 18:52: 00 03-22 20:49 :00 No 30U 30 Units, Subcutaneo us, ONCE, 1 dose, On Thu03/22/24 at 1400, Routine [facility] magnesium sulfate in water 2 gram/50 mL (4 %) infusion 2 g 03-22 18:45: 00 03-22 19:36 :00 No 2g 2 g, IV Piggyback, Administer over 60 Minutes, ONCE, 1 dose, On Thu03/22/24 at 1345, Routine [facility] Sliding Scale Insulin - Lispro (HumaLOG) 03-22 17:00: 00 03-23 02:43 :52 No Subcutaneo us, TID MEALS+HS, First dose on Thu03/22/24 at 1200, Until Discontinu ed, Routine [facility] acetaminoph en (TYLENOL) tablet 1,000 mg 03-22 16:49: 59 Yes 1000mg 1,000 mg, Oral, Q8HPRN, Starting on Thu03/22/24 at 1149, Until Discontinu ed, Routine, Pain (scale 1-3) [facility] HYDROcodone -acetaminop hen (NORCO) 10-325 mg [...] 03-03 00:00: 00 05-30 00:00 :00 No [id number] 25mg Take 1 tablet by mouth in the morning. [facility] carvediloL (COREG) 12.5 mg tablet 01-28 00:00: 03-03 00:00 :00 No [id number] 12.5mg Take 1 tablet by mouth in the morning and 1 tablet in the evening. Take with meals. [facility] flash glucose sensor (FREESTYLE JOSE 2 SENSOR) Kit 01-03 00:00: 00 08-26 00:00 :00 No 1{kit} 1 Kit every 2 (two) weeks. [facility] dulaglutide (TRULICITY) 1.5 mg/0.5 mL PnIj 01-03 00:00: 00 04-14 00:00 :00 No [id number] 1.5mg inject 1 Pen under the skin [...] evening. Take with meals. [facility] Blood-Gluco se Sensor (FREESTYLE JOSE 3 SENSOR) [place] 12-11 00:00: 00 08-26 00:00 :00 No [id number] Use as directed [facility] BD ULTRAFINE III MINI PEN 31 gauge x 3/16" Ndle 12-11 00:00: 00 06-06 00:00 :00 No USE DIRECTED [address] [facility] losartan 25 mg tablet 12-11 00:00: 00 04-04 00:00 :00 No [id number] 25mg Take 1 tablet by mouth in the morning. [facility] rosuvastati n (CRESTOR) 10 mg tablet 12-11 00:00: 00 04-04 00:00 :00 No [id number] 10mg Take 1 tablet by mouth at bedtime. [facility] dulaglutide (TRULICITY) 1.5 mg/0.5 mL PnIj 12-11 00:00: 00 01-03 00:00 :00 No [id number] 1.5mg inject 1 Pen under the skin [...] (3 mL) injection 11-27 00:00: 00 Yes [id number] 20U inject 20 Units under the skin in the morning. [facility] metFORMIN 500 mg tablet 11-27 00:00: 00 Yes [id number] 500mg Take 1 tablet by mouth in the morning and 1 tablet in the evening. Take with meals. [facility] insulin aspart U-100 (NOVOLOG FLEXPEN U-100 INSULIN) 100 unit/mL (3 mL) injection 11-27 00:00: 00 07-10 00:00 :00 No [id number] 10U inject 10 Units under the skin in the morning and 10 Units at noon and 10 Units in the evening. inject before meals. Inject 5 to 10 units three times a day with meals [facility] Insulin Glargine (LANTUS SOLOSTAR U-100 INSULIN) 100 unit/mL (3 mL) injection 11-27 00:00: 00 05-26 00:00 :00 No [id number] 20U inject 20 Units under the skin in the morning. [facility] Vital Signs Vital Name Observation Time Observation Value Comments Giovanny ruelas Systolic blood pressure 2025-07-07 13:17:00 148 mm[Hg] [facility] Diastolic blood pressure 2025-07-07 13:17:00 75 mm[Hg] [facility] Heart rate 2025-07-07 13:17:00 82 /min [facility] Respiratory rate 2025-07-07 13:17:00 20 /min [facility] Body height 2025-07-07 13:17:00 182.9 cm [facility] Body weight 2025-07-07 13:17:00 76.295 kg [facility] BMI 2025-07-07 13:17:00 22.81 kg/m2 [facility] Oxygen saturation in Arterial blood by Pulse oximetry 2025-07-07 13:17:00 99 /min [facility] Systolic blood pressure 2025-07-03 15:30:00 114 mm[Hg] [facility] Diastolic blood pressure 2025-07-03 15:30:00 69 mm[Hg] [facility] Heart rate 2025-07-03 15:30:00 83 /min [facility] Respiratory rate 2025-07-03 15:30:00 16 /min [facility] Body height 2025-07-03 15:30:00 182.9 cm [facility] Body weight 2025-07-03 15:30:00 75.751 kg [facility] BMI 2025-07-03 15:30:00 22.65 kg/m2 [facility] Oxygen saturation in Arterial blood by Pulse oximetry 2025-07-03 15:30:00 96 /min [facility] Systolic blood pressure 2025-05-25 15:57:00 116 mm[Hg] [facility] Diastolic blood pressure 2025-05-25 15:57:00 65 mm[Hg] [facility] Heart rate 2025-05-25 15:57:00 82 /min [facility] Respiratory rate 2025-05-25 15:57:00 16 /min [facility] Body height 2025-05-25 15:57:00 182.9 cm [facility] Body weight 2025-05-25 15:57:00 72.167 kg [facility] BMI 2025-05-25 15:57:00 21.58 kg/m2 [facility] Oxygen saturation in Arterial blood by Pulse oximetry 2025-05-25 15:57:00 97 /min [facility] Systolic blood pressure 2025-04-19 17:54:00 104 mm[Hg] [facility] Diastolic blood pressure 2025-04-19 17:54:00 66 mm[Hg] [facility] Heart rate 2025-04-19 17:54:00 78 /min [facility] Body temperature 2025-04-19 17:54:00 36.11 Mera [facility] Respiratory rate 2025-04-19 17:54:00 18 /min [facility] Body height 2025-04-19 17:54:00 182.9 cm [facility] Body weight 2025-04-19 17:54:00 71.578 kg [facility] BMI 2025-04-19 17:54:00 21.40 kg/m2 [facility] Oxygen saturation in Arterial blood by Pulse oximetry 2025-04-19 17:54:00 98 /min [facility] Systolic blood pressure 2025-03-30 20:19:00 83 mm[Hg] [facility] Diastolic blood pressure 2025-03-30 20:19:00 57 mm[Hg] [facility] Heart rate 2025-03-30 20:19:00 109 /min [facility] Body temperature 2025-03-30 20:19:00 36.89 Mera [facility] Respiratory rate 2025-03-30 20:19:00 16 /min [facility] Oxygen saturation in Arterial blood by Pulse oximetry 2025-03-30 20:19:00 97 /min [facility] Body weight 2025-03-30 03:19:00 67.699 kg [facility] BMI 2025-03-30 03:19:00 20.24 kg/m2 [facility] Body height 2025-03-27 05:15:00 182.9 cm [facility] Systolic blood pressure 2025-03-21 14:19:00 115 mm[Hg] [facility] Diastolic blood pressure 2025-03-21 14:19:00 67 mm[Hg] [facility] Heart rate 2025-03-21 14:19:00 78 /min [facility] Body height 2025-03-21 14:19:00 182.9 cm stated [facility] Body weight 2025-03-21 14:19:00 73.029 kg [facility] BMI 2025-03-21 14:19:00 21.84 kg/m2 [facility] Oxygen saturation in Arterial blood by Pulse oximetry 2025-03-21 14:19:00 98 /min [facility] Systolic blood pressure 2025-02-22 16:10:00 117 mm[Hg] [facility] Diastolic blood pressure 2025-02-22 16:10:00 69 mm[Hg] [facility] Heart rate 2025-02-22 16:10:00 86 /min [facility] Oxygen saturation in Arterial blood by Pulse oximetry 2025-02-22 16:10:00 98 /min [facility] Respiratory rate 2025-02-22 16:05:00 20 /min [facility] Body height 2025-02-22 16:05:00 182.9 cm [facility] Body weight 2025-02-22 16:05:00 71.804 kg [facility] BMI 2025-02-22 16:05:00 21.47 kg/m2 [facility] Systolic blood pressure 2025-02-20 16:30:00 131 mm[Hg] [facility] Diastolic blood pressure 2025-02-20 16:30:00 79 mm[Hg] [facility] Heart rate 2025-02-20 16:30:00 91 /min [facility] Body temperature 2025-02-20 16:30:00 36.33 Mera [facility] Respiratory rate 2025-02-20 16:30:00 18 /min [facility] Body height 2025-02-20 16:30:00 182.9 cm [facility] Body weight 2025-02-20 16:30:00 73.573 kg [facility] BMI 2025-02-20 16:30:00 22.00 kg/m2 [facility] Oxygen saturation in Arterial blood by Pulse oximetry 2025-02-20 16:30:00 98 /min [facility] Systolic blood pressure 2025-02-14 20:18:00 134 mm[Hg] [facility] Diastolic blood pressure 2025-02-14 20:18:00 69 mm[Hg] [facility] Heart rate 2025-02-14 20:18:00 81 /min [facility] Body temperature 2025-02-14 20:18:00 36.67 Mera [facility] Respiratory rate 2025-02-14 20:18:00 18 /min [facility] Oxygen saturation in Arterial blood by Pulse oximetry 2025-02-14 20:18:00 96 /min [facility] Body height 2025-02-13 17:50:00 182.9 cm [facility] Body weight 2025-02-13 17:50:00 74.5 kg [facility] BMI 2025-02-13 17:50:00 22.28 kg/m2 [facility] Systolic blood pressure 2025-02-13 22:15:00 143 mm[Hg] [facility] Diastolic blood pressure 2025-02-13 22:15:00 62 mm[Hg] [facility] Heart rate 2025-02-13 22:15:00 86 /min [facility] Body temperature 2025-02-13 22:15:00 36.17 Mera [facility] Respiratory rate 2025-02-13 22:15:00 16 /min [facility] Oxygen saturation in Arterial blood by Pulse oximetry 2025-02-13 22:15:00 98 /min [facility] Body height 2025-02-13 17:50:00 182.9 cm [facility] Body weight 2025-02-13 17:50:00 74.5 kg [facility] BMI 2025-02-13 17:50:00 22.28 kg/m2 [facility] Systolic blood pressure 2025-02-06 21:00:00 145 mm[Hg] [facility] Diastolic blood pressure 2025-02-06 21:00:00 73 mm[Hg] [facility] Respiratory rate 2025-02-06 21:00:00 16 /min [facility] Oxygen saturation in Arterial blood by Pulse oximetry 2025-02-06 21:00:00 99 /min [facility] Body temperature 2025-02-06 20:49:00 36.44 Mera [facility] Heart rate 2025-02-06 17:00:00 71 /min [facility] Body height 2025-02-06 16:06:00 182.9 cm [facility] Body weight 2025-02-06 16:06:00 73.483 kg [facility] BMI 2025-02-06 16:06:00 21.97 kg/m2 [facility] Systolic blood pressure 2025-02-06 14:28:00 148 mm[Hg] [facility] Diastolic blood pressure 2025-02-06 14:28:00 84 mm[Hg] [facility] Heart rate 2025-02-06 14:28:00 82 /min [facility] Oxygen saturation in Arterial blood by Pulse oximetry 2025-02-06 14:28:00 99 /min [facility] Body height 2025-02-06 14:26:00 182.9 cm [facility] Body weight 2025-02-06 14:26:00 73.71 kg [facility] BMI 2025-02-06 14:26:00 22.04 kg/m2 [facility] Systolic blood pressure 2025-02-06 13:21:00 128 mm[Hg] [facility] Diastolic blood pressure 2025-02-06 13:21:00 80 mm[Hg] [facility] Heart rate 2025-02-06 13:21:00 99 /min [facility] Body temperature 2025-02-06 13:21:00 36.39 Mera [facility] Respiratory rate 2025-02-06 13:21:00 18 /min [facility] Body height 2025-02-06 13:21:00 182.9 cm [facility] Body weight 2025-02-06 13:21:00 75.206 kg [facility] BMI 2025-02-06 13:21:00 22.49 kg/m2 [facility] Oxygen saturation in Arterial blood by Pulse oximetry 2025-02-06 13:21:00 99 /min [facility] Systolic blood pressure 2025-01-31 15:31:00 127 mm[Hg] [facility] Diastolic blood pressure 2025-01-31 15:31:00 78 mm[Hg] [facility] Heart rate 2025-01-31 15:31:00 74 /min [facility] Body temperature 2025-01-31 15:31:00 36.28 Mera [facility] Body height 2025-01-31 15:31:00 182.9 cm [facility] Body weight 2025-01-31 15:31:00 74.56 kg [facility] BMI 2025-01-31 15:31:00 22.29 kg/m2 [facility] Oxygen saturation in Arterial blood by Pulse oximetry 2025-01-31 15:31:00 99 /min [facility] Systolic blood pressure 2024-12-29 18:58:00 123 mm[Hg] [facility] Diastolic blood pressure 2024-12-29 18:58:00 63 mm[Hg] [facility] Heart rate 2024-12-29 18:58:00 81 /min [facility] Respiratory rate 2024-12-29 18:58:00 16 /min [facility] Body height 2024-12-29 18:58:00 182.9 cm [facility] Body weight 2024-12-29 18:58:00 73.437 kg [facility] BMI 2024-12-29 18:58:00 21.96 kg/m2 [facility] Oxygen saturation in Arterial blood by Pulse oximetry 2024-12-29 18:58:00 96 /min [facility] Systolic blood pressure 2024-12-28 16:15:00 125 mm[Hg] [facility] Diastolic blood pressure 2024-12-28 16:15:00 64 mm[Hg] [facility] Heart rate 2024-12-28 16:15:00 77 /min [facility] Respiratory rate 2024-12-28 16:15:00 11 /min [facility] Oxygen saturation in Arterial blood by Pulse oximetry 2024-12-28 16:15:00 95 /min [facility] Body temperature 2024-12-28 15:45:00 36.22 Mera [facility] Body height 2024-12-28 14:30:00 182.9 cm [facility] Body weight 2024-12-28 14:30:00 72.122 kg [facility] BMI 2024-12-28 14:30:00 21.56 kg/m2 [facility] Systolic blood pressure 2024-12-28 15:55:00 110 mm[Hg] [facility] Diastolic blood pressure 2024-12-28 15:55:00 64 mm[Hg] [facility] Heart rate 2024-12-28 15:55:00 74 /min [facility] Respiratory rate 2024-12-28 15:55:00 14 /min [facility] Oxygen saturation in Arterial blood by Pulse oximetry 2024-12-28 15:55:00 100 /min [facility] Body temperature 2024-12-28 15:45:00 36.22 Mera [facility] Body height 2024-12-28 14:30:00 182.9 cm [facility] Body weight 2024-12-28 14:30:00 72.122 kg [facility] BMI 2024-12-28 14:30:00 21.56 kg/m2 [facility] Systolic blood pressure 2024-12-20 17:39:00 137 mm[Hg] [facility] Diastolic blood pressure 2024-12-20 17:39:00 83 mm[Hg] [facility] Heart rate 2024-12-20 17:39:00 76 /min [facility] Body temperature 2024-12-20 17:39:00 36.72 Mera [facility] Body height 2024-12-20 17:39:00 182.9 cm [facility] Body weight 2024-12-20 17:39:00 74.072 kg [facility] BMI 2024-12-20 17:39:00 22.15 kg/m2 [facility] Oxygen saturation in Arterial blood by Pulse oximetry 2024-12-20 17:39:00 98 /min [facility] Systolic blood pressure 2024-12-06 18:11:00 153 mm[Hg] [facility] Diastolic blood pressure 2024-12-06 18:11:00 76 mm[Hg] [facility] Heart rate 2024-12-06 18:10:00 77 /min [facility] Respiratory rate 2024-12-06 18:10:00 18 /min [facility] Body height 2024-12-06 18:10:00 182.9 cm [facility] Body weight 2024-12-06 18:10:00 73.437 kg [facility] BMI 2024-12-06 18:10:00 21.96 kg/m2 [facility] Oxygen saturation in Arterial blood by Pulse oximetry 2024-12-06 18:10:00 98 /min [facility] Systolic blood pressure 2024-11-17 00:00:00 142 mm[Hg] [facility] Diastolic blood pressure 2024-11-17 00:00:00 62 mm[Hg] [facility] Heart rate 2024-11-17 00:00:00 88 /min [facility] Body temperature 2024-11-17 00:00:00 37.22 Mera [facility] Respiratory rate 2024-11-17 00:00:00 16 /min [facility] Oxygen saturation in Arterial blood by Pulse oximetry 2024-11-17 00:00:00 98 /min [facility] Body height 2024-11-16 20:17:00 182.9 cm [facility] Body weight 2024-11-16 20:17:00 73.029 kg [facility] BMI 2024-11-16 20:17:00 21.84 kg/m2 [facility] Systolic blood pressure 2024-11-11 14:30:00 129 mm[Hg] [facility] Diastolic blood pressure 2024-11-11 14:30:00 84 mm[Hg] [facility] Heart rate 2024-11-11 14:26:00 79 /min [facility] Body temperature 2024-11-11 14:26:00 36.28 Mera [facility] Respiratory rate 2024-11-11 14:26:00 16 /min [facility] Body height 2024-11-11 14:26:00 182.9 cm per patient [facility] Body weight 2024-11-11 14:26:00 74.39 kg [facility] BMI 2024-11-11 14:26:00 22.24 kg/m2 [facility] Oxygen saturation in Arterial blood by Pulse oximetry 2024-11-11 14:26:00 98 /min [facility] Systolic blood pressure 2024-11-07 14:08:00 127 mm[Hg] [facility] Diastolic blood pressure 2024-11-07 14:08:00 70 mm[Hg] [facility] Heart rate 2024-11-07 14:08:00 83 /min [facility] Body temperature 2024-11-07 14:08:00 36.39 Mera [facility] Respiratory rate 2024-11-07 14:08:00 18 /min [facility] Body height 2024-11-07 14:08:00 182.9 cm [facility] Body weight 2024-11-07 14:08:00 74.027 kg [facility] BMI 2024-11-07 14:08:00 22.13 kg/m2 [facility] Oxygen saturation in Arterial blood by Pulse oximetry 2024-11-07 14:08:00 98 /min [facility] Systolic blood pressure 2024-10-11 16:09:00 138 mm[Hg] [facility] Diastolic blood pressure 2024-10-11 16:09:00 84 mm[Hg] [facility] Heart rate 2024-10-11 16:09:00 80 /min [facility] Body temperature 2024-10-11 16:09:00 36.39 Mera [facility] Respiratory rate 2024-10-11 16:09:00 16 /min [facility] Body weight 2024-10-11 16:09:00 71.668 kg [facility] BMI 2024-10-11 16:09:00 21.43 kg/m2 [facility] Oxygen saturation in Arterial blood by Pulse oximetry 2024-10-11 16:09:00 99 /min [facility] Systolic blood pressure 2024-09-13 18:52:00 131 mm[Hg] [facility] Diastolic blood pressure 2024-09-13 18:52:00 79 mm[Hg] [facility] Heart rate 2024-09-13 18:52:00 88 /min [facility] Body temperature 2024-09-13 18:52:00 36.67 Mera [facility] Respiratory rate 2024-09-13 18:52:00 20 /min [facility] Body weight 2024-09-13 18:52:00 68.947 kg [facility] BMI 2024-09-13 18:52:00 20.61 kg/m2 [facility] Oxygen saturation in Arterial blood by Pulse oximetry 2024-09-13 18:52:00 98 /min [facility] Systolic blood pressure 2024-09-07 15:59:00 108 mm[Hg] [facility] Diastolic blood pressure 2024-09-07 15:59:00 74 mm[Hg] [facility] Heart rate 2024-09-07 15:59:00 74 /min [facility] Respiratory rate 2024-09-07 15:08:00 16 /min [facility] Body height 2024-09-07 15:08:00 182.9 cm [facility] Body weight 2024-09-07 15:08:00 69.219 kg [facility] BMI 2024-09-07 15:08:00 20.70 kg/m2 [facility] Oxygen saturation in Arterial blood by Pulse oximetry 2024-09-07 15:08:00 98 /min [facility] Systolic blood pressure 2024-08-29 21:14:00 121 mm[Hg] [facility] Diastolic blood pressure 2024-08-29 21:14:00 68 mm[Hg] [facility] Heart rate 2024-08-29 21:11:00 104 /min [facility] Body temperature 2024-08-29 21:11:00 36.5 Mera [facility] Respiratory rate 2024-08-29 21:11:00 18 /min [facility] Body height 2024-08-29 21:11:00 182.9 cm [facility] Body weight 2024-08-29 21:11:00 69.219 kg [facility] BMI 2024-08-29 21:11:00 20.70 kg/m2 [facility] Oxygen saturation in Arterial blood by Pulse oximetry 2024-08-29 21:11:00 98 /min [facility] Systolic blood pressure 2024-08-29 19:41:00 140 mm[Hg] [facility] Diastolic blood pressure 2024-08-29 19:41:00 84 mm[Hg] [facility] Heart rate 2024-08-29 19:41:00 107 /min [facility] Body height 2024-08-29 19:39:00 182.9 cm [facility] Body weight 2024-08-29 19:39:00 69.4 kg [facility] BMI 2024-08-29 19:39:00 20.75 kg/m2 [facility] Oxygen saturation in Arterial blood by Pulse oximetry 2024-08-29 19:39:00 98 /min [facility] Body weight 2024-08-29 19:05:00 70.761 kg [facility] BMI 2024-08-29 19:05:00 21.16 kg/m2 [facility] Systolic blood pressure 2024-08-26 16:22:00 131 mm[Hg] [facility] Diastolic blood pressure 2024-08-26 16:22:00 70 mm[Hg] [facility] Heart rate 2024-08-26 16:22:00 100 /min [facility] Body temperature 2024-08-26 16:22:00 37.61 Mera [facility] Respiratory rate 2024-08-26 16:22:00 18 /min [facility] Oxygen saturation in Arterial blood by Pulse oximetry 2024-08-26 16:22:00 96 /min [facility] Body weight 2024-08-26 08:12:00 70.988 kg [facility] BMI 2024-08-26 08:12:00 21.23 kg/m2 [facility] Body height 2024-08-26 01:37:00 182.9 cm [facility] Systolic blood pressure 2024-08-25 12:35:00 130 mm[Hg] [facility] Diastolic blood pressure 2024-08-25 12:35:00 68 mm[Hg] [facility] Heart rate 2024-08-25 12:35:00 94 /min [facility] Body temperature 2024-08-25 12:35:00 36.78 Mera [facility] Respiratory rate 2024-08-25 12:35:00 17 /min [facility] Oxygen saturation in Arterial blood by Pulse oximetry 2024-08-25 12:35:00 96 /min [facility] Body weight 2024-08-25 08:07:00 69.99 kg [facility] BMI 2024-08-25 08:07:00 21.23 kg/m2 [facility] Systolic blood pressure 2024-08-23 21:40:00 154 mm[Hg] [facility] Diastolic blood pressure 2024-08-23 21:40:00 73 mm[Hg] [facility] Heart rate 2024-08-23 21:40:00 100 /min [facility] Respiratory rate 2024-08-23 21:40:00 16 /min [facility] Oxygen saturation in Arterial blood by Pulse oximetry 2024-08-23 21:40:00 99 /min [facility] Body temperature 2024-08-23 16:04:00 36.78 Mera [facility] Body height 2024-08-23 16:04:00 182.9 cm [facility] Body weight 2024-08-23 16:04:00 71.079 kg [facility] BMI 2024-08-23 16:04:00 21.25 kg/m2 [facility] Systolic blood pressure 2024-08-23 15:03:00 127 mm[Hg] [facility] Diastolic blood pressure 2024-08-23 15:03:00 83 mm[Hg] [facility] Heart rate 2024-08-23 15:03:00 99 /min [facility] Body temperature 2024-08-23 15:03:00 36.44 Mera [facility] Respiratory rate 2024-08-23 15:03:00 18 /min [facility] Body height 2024-08-23 15:03:00 182.9 cm [facility] Body weight 2024-08-23 15:03:00 71.169 kg [facility] BMI 2024-08-23 15:03:00 21.28 kg/m2 [facility] Oxygen saturation in Arterial blood by Pulse oximetry 2024-08-23 15:03:00 98 /min [facility] Systolic blood pressure 2024-08-15 17:57:00 131 mm[Hg] [facility] Diastolic blood pressure 2024-08-15 17:57:00 73 mm[Hg] [facility] Heart rate 2024-08-15 17:57:00 86 /min [facility] Body temperature 2024-08-15 17:57:00 36.61 Mera [facility] Respiratory rate 2024-08-15 17:57:00 16 /min [facility] Body height 2024-08-15 17:57:00 182.9 cm [facility] Body weight 2024-08-15 17:57:00 71.668 kg [facility] BMI 2024-08-15 17:57:00 21.43 kg/m2 [facility] Oxygen saturation in Arterial blood by Pulse oximetry 2024-08-15 17:57:00 100 /min [facility] Systolic blood pressure 2024-08-11 19:18:00 146 mm[Hg] [facility] Diastolic blood pressure 2024-08-11 19:18:00 83 mm[Hg] [facility] Heart rate 2024-08-11 19:18:00 82 /min [facility] Oxygen saturation in Arterial blood by Pulse oximetry 2024-08-11 19:18:00 97 /min [facility] Body temperature 2024-08-11 19:12:00 36.94 Mera [facility] Systolic blood pressure 2024-08-08 16:24:00 127 mm[Hg] [facility] Diastolic blood pressure 2024-08-08 16:24:00 75 mm[Hg] [facility] Heart rate 2024-08-08 16:24:00 75 /min [facility] Body height 2024-08-08 16:24:00 182.9 cm [facility] Body weight 2024-08-08 16:24:00 74.39 kg [facility] BMI 2024-08-08 16:24:00 22.24 kg/m2 [facility] Oxygen saturation in Arterial blood by Pulse oximetry 2024-08-08 16:24:00 97 /min [facility] Systolic blood pressure 2024-08-02 13:07:00 137 mm[Hg] [facility] Diastolic blood pressure 2024-08-02 13:07:00 80 mm[Hg] [facility] Heart rate 2024-08-02 13:07:00 80 /min [facility] Body temperature 2024-08-02 13:07:00 36.61 Mera [facility] Respiratory rate 2024-08-02 13:07:00 20 /min [facility] Body height 2024-08-02 13:07:00 185.4 cm [facility] Body weight 2024-08-02 13:07:00 74.39 kg [facility] BMI 2024-08-02 13:07:00 21.64 kg/m2 [facility] Oxygen saturation in Arterial blood by Pulse oximetry 2024-08-02 13:07:00 96 /min [facility] Systolic blood pressure 2024-07-25 16:34:00 140 mm[Hg] [facility] Diastolic blood pressure 2024-07-25 16:34:00 70 mm[Hg] [facility] Heart rate 2024-07-25 16:33:00 85 /min [facility] Body temperature 2024-07-25 16:33:00 37 Mera [facility] Respiratory rate 2024-07-25 16:33:00 18 /min [facility] Body height 2024-07-25 16:33:00 182.9 cm [facility] Body weight 2024-07-25 16:33:00 73.347 kg [facility] BMI 2024-07-25 16:33:00 21.93 kg/m2 [facility] Oxygen saturation in Arterial blood by Pulse oximetry 2024-07-25 16:33:00 99 /min [facility] Systolic blood pressure 2024-07-18 19:55:00 124 mm[Hg] [facility] Diastolic blood pressure 2024-07-18 19:55:00 75 mm[Hg] [facility] Heart rate 2024-07-18 19:55:00 83 /min [facility] Body temperature 2024-07-18 19:55:00 36.44 Mera [facility] Respiratory rate 2024-07-18 19:55:00 16 /min [facility] Body height 2024-07-18 19:55:00 182.9 cm [facility] Body weight 2024-07-18 19:55:00 70.126 kg [facility] BMI 2024-07-18 19:55:00 20.97 kg/m2 [facility] Oxygen saturation in Arterial blood by Pulse oximetry 2024-07-18 19:55:00 98 /min [facility] Systolic blood pressure 2024-07-12 18:17:00 135 mm[Hg] [facility] Diastolic blood pressure 2024-07-12 18:17:00 76 mm[Hg] [facility] Heart rate 2024-07-12 18:17:00 87 /min [facility] Body temperature 2024-07-12 18:17:00 36.72 Mera [facility] Respiratory rate 2024-07-12 18:17:00 20 /min [facility] Body height 2024-07-12 18:17:00 182.9 cm [facility] Body weight 2024-07-12 18:17:00 71.668 kg [facility] BMI 2024-07-12 18:17:00 21.43 kg/m2 [facility] Oxygen saturation in Arterial blood by Pulse oximetry 2024-07-12 18:17:00 97 /min [facility] Systolic blood pressure 2024-07-10 12:19:00 120 mm[Hg] [facility] Diastolic blood pressure 2024-07-10 12:19:00 74 mm[Hg] [facility] Heart rate 2024-07-10 12:19:00 81 /min [facility] Body temperature 2024-07-10 12:19:00 36.67 Mera [facility] Respiratory rate 2024-07-10 12:19:00 17 /min [facility] Oxygen saturation in Arterial blood by Pulse oximetry 2024-07-10 12:19:00 97 /min [facility] Body weight 2024-07-09 10:05:00 73.483 kg [facility] BMI 2024-07-09 10:05:00 21.97 kg/m2 [facility] Body height 2024-07-08 01:50:00 182.9 cm [facility] Systolic blood pressure 2024-07-07 18:52:00 125 mm[Hg] [facility] Diastolic blood pressure 2024-07-07 18:52:00 70 mm[Hg] [facility] Heart rate 2024-07-07 18:52:00 73 /min [facility] Body temperature 2024-07-07 18:52:00 36.83 Mera [facility] Respiratory rate 2024-07-07 18:52:00 18 /min [facility] Body height 2024-07-07 18:52:00 182.9 cm [facility] Body weight 2024-07-07 18:52:00 71.759 kg [facility] BMI 2024-07-07 18:52:00 21.46 kg/m2 [facility] Oxygen saturation in Arterial blood by Pulse oximetry 2024-07-07 18:52:00 98 /min [facility] Systolic blood pressure 2024-06-17 20:24:00 129 mm[Hg] [facility] Diastolic blood pressure 2024-06-17 20:24:00 79 mm[Hg] [facility] Heart rate 2024-06-17 20:24:00 81 /min [facility] Body height 2024-06-17 20:24:00 182.9 cm [facility] Body weight 2024-06-17 20:24:00 71.986 kg [facility] BMI 2024-06-17 20:24:00 21.52 kg/m2 [facility] Oxygen saturation in Arterial blood by Pulse oximetry 2024-06-17 20:24:00 98 /min [facility] Systolic blood pressure 2024-06-13 15:52:00 128 mm[Hg] [facility] Diastolic blood pressure 2024-06-13 15:52:00 80 mm[Hg] [facility] Heart rate 2024-06-13 15:52:00 78 /min [facility] Oxygen saturation in Arterial blood by Pulse oximetry 2024-06-13 15:52:00 98 /min [facility] Body temperature 2024-06-13 15:50:00 36.44 Mera [facility] Respiratory rate 2024-06-13 15:50:00 20 /min [facility] Body height 2024-06-13 15:50:00 182.9 cm [facility] Body weight 2024-06-13 15:50:00 72.207 kg [facility] BMI 2024-06-13 15:50:00 21.59 kg/m2 [facility] Body height 2024-06-02 19:31:00 182.9 cm [facility] Body weight 2024-06-02 19:31:00 72.122 kg [facility] BMI 2024-06-02 19:31:00 21.56 kg/m2 [facility] Systolic blood pressure 2024-05-26 18:08:00 124 mm[Hg] [facility] Diastolic blood pressure 2024-05-26 18:08:00 80 mm[Hg] [facility] Heart rate 2024-05-26 18:08:00 92 /min [facility] Body temperature 2024-05-26 18:08:00 36.78 Mera [facility] Respiratory rate 2024-05-26 18:08:00 18 /min [facility] Body height 2024-05-26 18:08:00 182.9 cm [facility] Body weight 2024-05-26 18:08:00 71.759 kg [facility] BMI 2024-05-26 18:08:00 21.46 kg/m2 [facility] Oxygen saturation in Arterial blood by Pulse oximetry 2024-05-26 18:08:00 96 /min [facility] Systolic blood pressure 2024-05-26 19:28:00 124 mm[Hg] [facility] Diastolic blood pressure 2024-05-26 19:28:00 80 mm[Hg] [facility] Heart rate 2024-05-26 19:28:00 92 /min [facility] Body temperature 2024-05-26 19:28:00 36.78 Mera [facility] Respiratory rate 2024-05-26 19:28:00 18 /min [facility] Body height 2024-05-26 19:28:00 182.9 cm [facility] Body weight 2024-05-26 19:28:00 71.804 kg [facility] BMI 2024-05-26 19:28:00 21.47 kg/m2 [facility] Oxygen saturation in Arterial blood by Pulse oximetry 2024-05-26 19:28:00 98 /min [facility] Systolic blood pressure 2024-04-14 20:11:00 139 mm[Hg] [facility] Diastolic blood pressure 2024-04-14 20:11:00 79 mm[Hg] [facility] Heart rate 2024-04-14 20:11:00 85 /min [facility] Body temperature 2024-04-14 20:11:00 36.78 Mera [facility] Respiratory rate 2024-04-14 20:11:00 20 /min [facility] Body height 2024-04-14 20:11:00 182.9 cm [facility] Body weight 2024-04-14 20:11:00 72.576 kg [facility] BMI 2024-04-14 20:11:00 21.70 kg/m2 [facility] Oxygen saturation in Arterial blood by Pulse oximetry 2024-04-14 20:11:00 97 /min [facility] Systolic blood pressure 2024-04-04 18:40:00 122 mm[Hg] [employer] [facility] Diastolic blood pressure 2024-04-04 18:40:00 64 mm[Hg] [employer] [facility] Heart rate 2024-04-04 18:40:00 87 /min [facility] Respiratory rate 2024-04-04 18:38:00 16 /min [facility] Body height 2024-04-04 18:38:00 182.9 cm [facility] Body weight 2024-04-04 18:38:00 70.081 kg [facility] BMI 2024-04-04 18:38:00 20.95 kg/m2 [facility] Oxygen saturation in Arterial blood by Pulse oximetry 2024-04-04 18:38:00 96 /min [facility] Systolic blood pressure 2024-03-29 18:53:00 121 mm[Hg] [facility] Diastolic blood pressure 2024-03-29 18:53:00 74 mm[Hg] [facility] Heart rate 2024-03-29 18:53:00 82 /min [facility] Body temperature 2024-03-29 18:53:00 36.72 Mera [facility] Respiratory rate 2024-03-29 18:53:00 15 /min [facility] Body weight 2024-03-29 18:53:00 72.349 kg [facility] BMI 2024-03-29 18:53:00 21.63 kg/m2 [facility] Oxygen saturation in Arterial blood by Pulse oximetry 2024-03-29 18:53:00 97 /min [facility] Systolic blood pressure 2024-03-24 16:12:00 125 mm[Hg] [facility] Diastolic blood pressure 2024-03-24 16:12:00 69 mm[Hg] [facility] Heart rate 2024-03-24 16:12:00 71 /min [facility] Body temperature 2024-03-24 16:12:00 36.28 Mera [facility] Respiratory rate 2024-03-24 16:12:00 18 /min [facility] Oxygen saturation in Arterial blood by Pulse oximetry 2024-03-24 16:12:00 96 /min [facility] Body weight 2024-03-24 08:43:00 73.426 kg [facility] BMI 2024-03-24 08:43:00 21.95 kg/m2 [facility] Body height 2024-03-22 10:28:00 182.9 cm [facility] Systolic blood pressure 2024-03-22 16:45:00 105 mm[Hg] [facility] Diastolic blood pressure 2024-03-22 16:45:00 56 mm[Hg] [facility] Heart rate 2024-03-22 16:45:00 88 /min [facility] Body temperature 2024-03-22 16:45:00 37.11 Mera [facility] Respiratory rate 2024-03-22 16:45:00 13 /min [facility] Oxygen saturation in Arterial blood by Pulse oximetry 2024-03-22 16:45:00 96 /min [facility] Body height 2024-03-22 10:28:00 182.9 cm [facility] Body weight 2024-03-22 10:28:00 72.7 kg [facility] BMI 2024-03-22 10:28:00 21.74 kg/m2 [facility] Systolic blood pressure 2024-03-10 19:51:00 129 mm[Hg] [facility] Diastolic blood pressure 2024-03-10 19:51:00 74 mm[Hg] [facility] Heart rate 2024-03-10 19:51:00 91 /min [facility] Body temperature 2024-03-10 19:49:00 36.78 Mera [facility] Respiratory rate 2024-03-10 19:49:00 20 /min [facility] Body height 2024-03-10 19:49:00 182.9 cm [facility] Body weight 2024-03-10 19:49:00 73.029 kg [facility] BMI 2024-03-10 19:49:00 21.84 kg/m2 [facility] Oxygen saturation in Arterial blood by Pulse oximetry 2024-03-10 19:49:00 97 /min [facility] Systolic blood pressure 2024-03-03 17:08:00 146 mm[Hg] [facility] Diastolic blood pressure 2024-03-03 17:08:00 82 mm[Hg] [facility] Heart rate 2024-03-03 17:07:00 75 /min [facility] Body temperature 2024-03-03 17:07:00 36.39 Mera [facility] Respiratory rate 2024-03-03 17:07:00 18 /min [facility] Body height 2024-03-03 17:07:00 182.9 cm [facility] Body weight 2024-03-03 17:07:00 73.936 kg [facility] BMI 2024-03-03 17:07:00 22.11 kg/m2 [facility] Oxygen saturation in Arterial blood by Pulse oximetry 2024-03-03 17:07:00 98 /min [facility] Systolic blood pressure 2024-03-03 13:42:00 134 mm[Hg] [facility] Diastolic blood pressure 2024-03-03 13:42:00 81 mm[Hg] [facility] Heart rate 2024-03-03 13:42:00 77 /min [facility] Respiratory rate 2024-03-03 13:42:00 18 /min [facility] Body height 2024-03-03 13:42:00 182.9 cm [facility] Body weight 2024-03-03 13:42:00 72.848 kg [facility] BMI 2024-03-03 13:42:00 21.78 kg/m2 [facility] Oxygen saturation in Arterial blood by Pulse oximetry 2024-03-03 13:42:00 98 /min [facility] Systolic blood pressure 2024-03-03 06:38:00 135 mm[Hg] [facility] Diastolic blood pressure 2024-03-03 06:38:00 75 mm[Hg] [facility] Heart rate 2024-03-03 06:38:00 77 /min [facility] Body temperature 2024-03-03 06:38:00 35.78 Mera [facility] Respiratory rate 2024-03-03 06:38:00 26 /min [facility] Oxygen saturation in Arterial blood by Pulse oximetry 2024-03-03 06:38:00 97 /min [facility] Body height 2024-03-03 04:21:00 182.9 cm [facility] Body weight 2024-03-03 04:21:00 73.936 kg [facility] BMI 2024-03-03 04:21:00 22.11 kg/m2 [facility] Systolic blood pressure 2024-02-25 17:44:00 130 mm[Hg] [facility] Diastolic blood pressure 2024-02-25 17:44:00 82 mm[Hg] [facility] Heart rate 2024-02-25 17:44:00 83 /min [facility] Body temperature 2024-02-25 17:44:00 36.61 Mera [facility] Respiratory rate 2024-02-25 17:44:00 18 /min [facility] Body height 2024-02-25 17:44:00 182.9 cm [facility] Body weight 2024-02-25 17:44:00 73.483 kg [facility] BMI 2024-02-25 17:44:00 21.97 kg/m2 [facility] Oxygen saturation in Arterial blood by Pulse oximetry 2024-02-25 17:44:00 97 /min [facility] Systolic blood pressure 2023-12-29 18:10:00 142 mm[Hg] [facility] Diastolic blood pressure 2023-12-29 18:10:00 72 mm[Hg] [facility] Heart rate 2023-12-29 18:10:00 65 /min [facility] Respiratory rate 2023-12-29 18:10:00 19 /min [facility] Body height 2023-12-29 18:10:00 182.9 cm [facility] Body weight 2023-12-29 18:10:00 77.61 kg [facility] BMI 2023-12-29 18:10:00 23.21 kg/m2 [facility] Oxygen saturation in Arterial blood by Pulse oximetry 2023-12-29 18:10:00 98 /min [facility] Systolic blood pressure 2023-12-28 15:14:00 135 mm[Hg] [facility] Diastolic blood pressure 2023-12-28 15:14:00 74 mm[Hg] [facility] [facility] Heart rate 2023-12-28 15:14:00 65 /min [facility] Body temperature 2023-12-28 15:14:00 36.39 Mera [facility] Respiratory rate 2023-12-28 15:14:00 18 /min [facility] Body height 2023-12-28 15:14:00 182.9 cm [facility] Body weight 2023-12-28 15:14:00 74.753 kg [facility] BMI 2023-12-28 15:14:00 22.35 kg/m2 [facility] Oxygen saturation in Arterial blood by Pulse oximetry 2023-12-28 15:14:00 98 /min [facility] Systolic blood pressure 2023-12-24 20:59:00 136 mm[Hg] [facility] Diastolic blood pressure 2023-12-24 20:59:00 71 mm[Hg] [facility] Heart rate 2023-12-24 20:59:00 70 /min [facility] Body temperature 2023-12-24 20:59:00 36.61 Mera [facility] Respiratory rate 2023-12-24 20:59:00 20 /min [facility] Body height 2023-12-24 20:59:00 182.9 cm [facility] Body weight 2023-12-24 20:59:00 76.204 kg [facility] BMI 2023-12-24 20:59:00 22.78 kg/m2 [facility] Oxygen saturation in Arterial blood by Pulse oximetry 2023-12-24 20:59:00 98 /min [facility] Systolic blood pressure 2023-12-11 18:16:00 141 mm[Hg] [facility] Diastolic blood pressure 2023-12-11 18:16:00 82 mm[Hg] [facility] Heart rate 2023-12-11 18:16:00 72 /min [facility] Body temperature 2023-12-11 18:16:00 36.33 Mera [facility] Body height 2023-12-11 18:16:00 182.9 cm [facility] Body weight 2023-12-11 18:16:00 75.297 kg [facility] BMI 2023-12-11 18:16:00 22.51 kg/m2 [facility] Oxygen saturation in Arterial blood by Pulse oximetry 2023-12-11 18:16:00 98 /min [facility] Systolic blood pressure 2023-11-27 21:36:00 136 mm[Hg] [facility] Diastolic blood pressure 2023-11-27 21:36:00 80 mm[Hg] [facility] Heart rate 2023-11-27 21:36:00 72 /min [facility] Body temperature 2023-11-27 21:36:00 36.61 Mera [facility] Respiratory rate 2023-11-27 21:36:00 17 /min [facility] Body height 2023-11-27 21:36:00 182.9 cm [facility] Body weight 2023-11-27 21:36:00 75.388 kg [facility] BMI 2023-11-27 21:36:00 22.54 kg/m2 [facility] Oxygen saturation in Arterial blood by Pulse oximetry 2023-11-27 21:36:00 98 /min [facility] Systolic blood pressure 2025-01-31 15:31:00 127 mm[Hg] [facility] Diastolic blood pressure 2025-01-31 15:31:00 78 mm[Hg] [facility] Heart rate 2025-01-31 15:31:00 74 /min [facility] Body temperature 2025-01-31 15:31:00 36.28 Mera [facility] Body height 2025-01-31 15:31:00 182.9 cm [facility] Body weight 2025-01-31 15:31:00 74.56 kg [facility] BMI 2025-01-31 15:31:00 22.29 kg/m2 [facility] Oxygen saturation in Arterial blood by Pulse oximetry 2025-01-31 15:31:00 99 /min [facility] Respiratory rate 2025-01-10 20:00:00 16 /min [facility] Procedures Procedure Date / Time Performed Performing Clinician Source MAGNESIUM 2025-03-30 10:27:00 Tarah [facility] BASIC METABOLIC PANEL (NA, K, CL, CO2, GLUCOSE, BUN, CREATININE, CA) 2025-03-30 10:27:00 Tarah [facility] CBC WITH DIFF 2025-03-30 10:27:00 Tarah [facility] MAGNESIUM 2025-03-29 09:24:00 Tarah [facility] BASIC METABOLIC PANEL (NA, K, CL, CO2, GLUCOSE, BUN, CREATININE, CA) 2025-03-29 09:24:00 Tarah [facility] CBC WITH DIFF 2025-03-29 09:[facility] 2025-03-28 13:18:00 Ritchie [facility] POCT GLUCOSE (AUTOMATED) 2025-03-28 09:50:00 Ritchie [facility] MAGNESIUM 2025-03-28 09:45:00 Tarah [facility] BASIC METABOLIC PANEL (NA, K, CL, CO2, GLUCOSE, BUN, CREATININE, CA) 2025-03-28 09:45:00 Tarah [facility] CBC WITH DIFF 2025-03-28 09:[facility] 2025-03-28 09:44:00 [facility] POCT GLUCOSE (AUTOMATED) 2025-03-28 04:09:00 [facility] URINE CULTURE 2025-03-28 01:07:00 Elias Smith [facility] URINALYSIS 2025-03-28 01:05:00 Elias Smith [facility] POCT GLUCOSE (AUTOMATED) 2025-03-28 00:44:00 [facility] BLOOD CULTURE SCREEN 2025-03-27 17:33:00 Toni Smith [facility] INFLUENZA A/B RSV COVID NAAT 2025-03-27 16:57:00 Elias Smith [facility] LAB ONLY COVID INTERPRETATION 2025-03-27 16:57:00 Elias Smith [facility] XR CHEST 1 VW 2025-03-27 14:21:00 Elias Smith [facility] MAGNESIUM 2025-03-27 05:55:00 Jerel Goel [facility] TROPONIN I 2025-03-27 05:55:00 Jerel Goel [facility] BASIC METABOLIC PANEL (NA, K, CL, CO2, GLUCOSE, BUN, CREATININE, CA) 2025-03-27 05:55:00 Jerel Goel [facility] LIPID PANEL ([id number])(TOTAL CHOLESTEROL, TRIGLYCERIDES, HDL) 2025-03-27 05:55:00 Jerel Goel [facility] CBC WITH DIFF 2025-03-27 05:55:00 Jerel Goel [facility] GLYCOSYLATED HEMOGLOBIN (A1C) 2025-03-27 05:55:00 [facility] MAGNESIUM 2025-02-14 08:46:00 Kwadwo [facility] BASIC METABOLIC PANEL (NA, K, CL, CO2, GLUCOSE, BUN, CREATININE, CA) 2025-02-14 08:46:00 Kwadwo [facility] CBC WITH DIFF 2025-02-14 08:46:00 Kwadwo [facility] MAGNESIUM 2025-02-14 08:46:00 Kwadwo [facility] BASIC METABOLIC PANEL (NA, K, CL, CO2, GLUCOSE, BUN, CREATININE, CA) 2025-02-14 08:46:00 Kwadwo [facility] CBC WITH DIFF 2025-02-14 08:46:00 Kwadwo [facility] POCT GLUCOSE (AUTOMATED) 2025-02-14 04:07:00 Memo Hemramon julien [facility] POCT GLUCOSE (AUTOMATED) 2025-02-14 04:07:00 [facility] ACTIVATED PARTIAL THRMPLAS SHANTELL 2025-02-14 01:15:00 Calixto Sidhu [facility] ACTIVATED PARTIAL THRMPLAS SHANTELL 2025-02-14 01:15:00 Calixto Sidhu [facility] CATH PROCEDURE LOG 2025-02-13 21:35:45 Garrett Lassiter [facility] CATH PROCEDURE LOG 2025-02-13 21:35:45 Garrett Lassiter [facility] CARDIAC CATHETERIZATION 2025-02-13 21:10:00 Memo Marino [facility] CARDIAC CATHETERIZATION 2025-02-13 21:10:00 Memo Marino [facility] CARDIAC CATHETERIZATION 2025-02-13 21:10:00 Memo Marino [facility] CARDIAC CATHETERIZATION 2025-02-13 21:10:00 Memo Marino [facility] CARDIAC CATHETERIZATION 2025-02-13 21:10:00 Memo Marino [facility] CARDIAC CATHETERIZATION 2025-02-13 21:10:00 Memo Marino [facility] TRANSTHORACIC ECHO (TTE) LIMITED W/ CONTRAST 2025-02-13 16:41:45 SidiqCalixto [facility] TRANSTHORACIC ECHO (TTE) LIMITED W/ CONTRAST 2025-02-13 16:41:45 Calixto Sidhu [facility] ACTIVATED PARTIAL THRMPLAS SHANTELL 2025-02-13 15:12:00 SidiqCalixto [facility] ACTIVATED PARTIAL THRMPLAS SHANTELL 2025-02-13 15:12:00 SidiqCalixto [facility] TROPONIN I 2025-02-13 13:38:00 SidiqCalixto [facility] TROPONIN I 2025-02-13 13:38:00 SidiqCalixto [facility] MAGNESIUM 2025-02-13 08:30:00 SidiqCalixto [facility] TROPONIN I 2025-02-13 08:30:00 SidiqCalixto [facility] BASIC METABOLIC PANEL (NA, K, CL, CO2, GLUCOSE, BUN, CREATININE, CA) 2025-02-13 08:30:00 SidiqCalixto Nj [facility] CBC WITH DIFF 2025-02-13 08:30:00 [facility] THRMPLAS SHANTELL 2025-02-13 08:30:00 SidiqCalixto [facility] N-TERMINAL PRO-BNP 2025-02-13 08:30:00 Memo Marino [facility] MAGNESIUM 2025-02-13 08:30:00 SidiqCalixto Uni [facility] TROPONIN I 2025-02-13 08:30:00 SidiqCalixto [facility] BASIC METABOLIC PANEL (NA, K, CL, CO2, GLUCOSE, BUN, CREATININE, CA) 2025-02-13 08:30:00 Sidana, Calixto Mauro [facility] CBC WITH DIFF 2025-02-13 08:30:00 Calixto Sidhu Un [facility] ACTIVATED PARTIAL THRMPLAS SHANTELL 2025-02-13 08:30:00 [facility]xto [facility] N-[facility]MINAL PRO-BNP 2025-02-13 08:30:00 Garrett Lassiter [facility] CBC WITH DIFF 2025-02-13 02:03:00 Calixto Sidhu Un [facility] PROTHROMBIN TIME / INR 2025-02-13 02:03:00 SidCalixto perez [facility] ACTIVATED PARTIAL THRMPLAS SHANTELL 2025-02-13 02:03:00 SidiqCalixto [facility] EXTRA TUBE LT. BLUE 2025-02-13 02:03:00 Memo Marino Ba [facility] CBC WITH DIFF 2025-02-13 02:03:00 Calixto Sidhu Un [facility] PROTHROMBIN TIME / INR 2025-02-13 02:03:00 [facility] ACTIVATED PARTIAL THRMPLAS SHANTELL 2025-02-13 02:03:00 Calixto Sidhu [facility] EXTRA TUBE LT. BLUE 2025-02-13 02:03:00 Memo Marino Ba [facility] HB ECG ROUTINE & RHYTHM STRIP 2025-02-13 01:39:10 [facility] HB [facility] ROUTINE & RHYTHM STRIP 2025-02-13 01:39:10 [facility] MAGNESIUM 2025-02-13 01:05:00 SidiqCalixto [facility] TROPONIN I 2025-02-13 01:05:00 Calixto Sidhu [facility] BASIC METABOLIC PANEL (NA, K, CL, CO2, GLUCOSE, BUN, CREATININE, CA) 2025-02-13 01:05:00 Calixto Sidhu [facility] MAGNESIUM 2025-02-13 01:05:00 Nahum Calixto Nj Di [facility] TROPONIN I 2025-02-13 01:05:00 [facility]OLIC PANEL (NA, K, CL, CO2, GLUCOSE, BUN, CREATININE, CA) 2025-02-13 01:05:00 Nahum Calixto [facility] HB ECG ROUTINE & RHYTHM STRIP 2025-02-13 00:53:03 Nahum [facility] HB ECG ROUTINE & RHYTHM STRIP 2025-02-13 00:53:03 Nahum [facility] TROPONIN I 2025-02-06 20:23:[address] [facility] TRANSTHORACIC ECHO (TTE) COMPLETE W/ CONTRAST 2025-02-06 19:50:00 Adela Ward [facility] TROPONIN I 2025-02-06 17:05:[address] [facility] BASIC METABOLIC PANEL (NA, K, CL, CO2, GLUCOSE, BUN, CREATININE, CA) 2025-02-06 17:05:00 Adela Ward [facility] LIPID PANEL ([id number])(TOTAL CHOLESTEROL, TRIGLYCERIDES, HDL) 2025-02-06 17:05:00 Adela Ward [facility] CBC WITH DIFF 2025-02-06 17:05:00 Adela Ward [facility] GLYCOSYLATED HEMOGLOBIN (A1C) 2025-02-06 17:05:00 Adela Ward [facility] POCT GLUCOSE (AUTOMATED) 2025-02-06 17:04:00 Sherley Ward [facility] SAMM,POST-VOID RES,US,NON-IMAGING 2025-01-31 00:00:00 Lynn Doll [facility] POCT URINALYSIS AUTO 2025-01-31 00:00:00 Cali Doll [facility] SAMM,POST-VOID RES,US,NON-IMAGING 2025-01-31 00:00:00 Lynn Doll [facility] POCT URINALYSIS AUTO 2025-01-31 00:00:00 Cali Doll [facility] CT ABDOMEN PELVIS W WO CONTRAST 2025-01-10 18:19:34 Alex Blanchard [facility] URINALYSIS 2025-01-10 16:26:00 [facility] 2025-01-10 16:24:00 [facility] COMP. METABOLIC PANEL ([id number]) 2025-01-10 16:24:00 Alex Blanchard [facility] PROTHROMBIN TIME / INR 2025-01-10 16:24:00 Silas Blanchard [facility] ACTIVATED PARTIAL THRMPLAS SHANTELL 2025-01-10 16:24:00 Alex Blanchard [facility] DME/SUPPLY JUSTIFICATION 2025-01-04 15:54:01 Doc tor Unassigned, Bartley [facility] POCT GLUCOSE (AUTOMATED) 2024-12-28 15:53:00 Srinivasan Andino [facility] POCT GLUCOSE (AUTOMATED) 2024-12-28 15:53:00 Srinivasan Andino [facility] POCT GLUCOSE (AUTOMATED) 2024-12-28 15:53:00 Srinivasan Andino [facility] COLONOSCOPY (ENDO) 2024-12-28 15:47:25 Julian Toth [facility] COLONOSCOPY (ENDO) 2024-12-28 15:47:25 Julian Toth rochelle [facility] COLONOSCOPY (ENDO) 2024-12-28 15:47:25 Julian Toth rochelle [facility] SURGICAL PATHOLOGY EXAM 2024-12-28 15:06:00 Darcy Andino [facility] [id number] - [place] COLONOSCOPY W/BIOPSY SINGLE/MULTIPLE 2024-12-28 14:36:00 Thu, [facility] [id number] - [place] COLONOSCOPY W/BIOPSY SINGLE/MULTIPLE 2024-12-28 14:36:00 Thu [facility] POCT GLUCOSE (AUTOMATED) 2024-12-28 14:32:00 Srinivasan Andino [facility] POCT GLUCOSE (AUTOMATED) 2024-12-28 14:32:00 [facility] 2024-12-28 14:32:00 Srinivasan Andino [facility] SAMM,POST-VOID RES,US,NON-IMAGING 2024-12-20 17:53:00 [facility] SAMM,POST-VOID RES,US,NON-IMAGING 2024-12-20 17:53:00 Angella [facility] POCT URINALYSIS AUTO 2024-12-20 00:00:00 Angella [facility] POCT URINALYSIS AUTO 2024-12-20 00:00:00 Cali Doll [facility] TROPONIN I 2024-11-16 22:27:00 Kiah Garcia [facility] COMP. METABOLIC PANEL ([id number]) 2024-11-16 22:27:00 Kiah Garcia [facility] CBC WITH DIFF 2024-11-16 22:27:00 Kiah Garcia Un [facility] INFLUENZA A/B RSV COVID NAAT 2024-11-16 22:27:00 Kiah Garcia [facility] CBC WITH DIFF 2024-11-16 22:27:00 Kiah Garcia [facility] COMP. METABOLIC PANEL ([id number]) 2024-11-16 22:27:00 Kiah Garcia [facility] TROPONIN I 2024-11-16 22:27:00 Kiah Garcia [facility] INFLUENZA A/B RSV COVID NAAT 2024-11-16 22:27:00 Kiah Garcia [facility] LAB ONLY COVID INTERPRETATION 2024-11-16 22:27:00 Kiah Garcia [facility] URINALYSIS 2024-11-16 21:20:00 Kiah Garcia [facility] URINALYSIS 2024-11-16 21:20:00 Kiah Garcia [facility] MICROALBUMIN URINE 2024-11-07 15:02:00 Julian Toth [facility] CBC WITH DIFF 2024-11-07 14:58:00 Joshua-Marcel Catherine U [facility] COMP. METABOLIC PANEL ([id number]) 2024-11-07 14:58:00 [facility] LIPID PANEL ([id number])(TOTAL CHOLESTEROL, TRIGLYCERIDES, HDL) 2024-11-07 14:58:00 [facility] THYROID STIMULATING HORMONE 2024-11-07 14:58:00 [facility], [facility] FREE T4 2024-11-07 14:58:00 Obwily-Marcel Catherine Un [facility] FREE T3 2024-11-07 14:58:00 [facility] GLYCOSYLATED HEMOGLOBIN (A1C) 2024-11-07 14:58:00 [facility] POCT URINALYSIS AUTO 2024-10-11 16:19:00 [facility] SAMM,POST-VOID RES,US,NON-IMAGING 2024-10-10 00:00:00 [facility] POCT URINALYSIS AUTO 2024-09-13 19:08:00 [facility] SAMM,POST-VOID RES,US,NON-IMAGING 2024-09-13 19:07:00 Louie [facility] POCT GLUCOSE (AUTOMATED) 2024-08-26 16:29:00 Senthil Madden [facility] POCT GLUCOSE (AUTOMATED) 2024-08-26 16:29:00 Senthil Madden [facility] POCT GLUCOSE (AUTOMATED) 2024-08-26 12:32:00 Senthil Madden [facility] POCT GLUCOSE (AUTOMATED) 2024-08-26 12:32:00 Senthil Madden [facility] BASIC METABOLIC PANEL (NA, K, CL, CO2, GLUCOSE, BUN, CREATININE, CA) 2024-08-26 08:19:00 [facility] 2024-08-26 08:19:00 Jhony Madden [facility] BASIC METABOLIC PANEL (NA, K, CL, CO2, GLUCOSE, BUN, CREATININE, CA) 2024-08-26 08:19:00 Chano [facility] CBC WITH DIFF 2024-08-26 08:19:00 Jhony Madden [facility] POCT GLUCOSE (AUTOMATED) 2024-08-26 01:37:00 Senthil Madden [facility] POCT GLUCOSE (AUTOMATED) 2024-08-26 01:37:00 Senthil Madden [facility] POCT GLUCOSE (AUTOMATED) 2024-08-25 21:35:00 Senthil Madden emelia [facility] POCT GLUCOSE (AUTOMATED) 2024-08-25 21:35:00 Senthil Madden [facility] POCT GLUCOSE (AUTOMATED) 2024-08-25 18:34:00 Senthil Madden [facility] POCT GLUCOSE (AUTOMATED) 2024-08-25 18:34:00 Senthil Madden [facility] URINE CULTURE 2024-08-25 15:50:00 Lynn Doll [facility] URINE CULTURE 2024-08-25 15:50:00 [facility] [id number] - [place] LASER ENUCLEATION PROSTATE W/MORCELLATION 2024-08-25 14:54:00 Angella [facility] [id number] - [place] LASER ENUCLEATION PROSTATE W/MORCELLATION 2024-08-25 14:54:00 Angella [facility] POCT GLUCOSE (AUTOMATED) 2024-08-25 12:46:00 Senthil Madden [facility] POCT GLUCOSE (AUTOMATED) 2024-08-25 12:46:00 Senthil Madden [facility] BASIC METABOLIC PANEL (NA, K, CL, CO2, GLUCOSE, BUN, CREATININE, CA) 2024-08-25 09:26:00 [facility]FF 2024-08-25 09:26:00 [facility] BASIC METABOLIC PANEL (NA, K, CL, CO2, GLUCOSE, BUN, CREATININE, CA) 2024-08-25 09:26:00 Chano [facility] CBC WITH DIFF 2024-08-25 09:26:00 Chano [facility] BASIC METABOLIC PANEL (NA, K, CL, CO2, GLUCOSE, BUN, CREATININE, CA) 2024-08-25 02:41:00 [facility] 2024-08-25 02:41:00 Chano [facility] GLYCOSYLATED HEMOGLOBIN (A1C) 2024-08-25 02:41:00 Chano [facility] BASIC METABOLIC PANEL (NA, K, CL, CO2, GLUCOSE, BUN, CREATININE, CA) 2024-08-25 02:41:00 Chano [facility] CBC WITH DIFF 2024-08-25 02:41:00 Chano [facility] GLYCOSYLATED HEMOGLOBIN (A1C) 2024-08-25 02:41:00 [facility]SE (AUTOMATED) 2024-08-25 02:01:00 Senthil Madden [facility] POCT GLUCOSE (AUTOMATED) 2024-08-25 02:01:00 Senthil Madden [facility] COMP. METABOLIC PANEL ([id number]) 2024-08-23 16:50:00 Sandro Ramirez [facility] CBC WITH DIFF 2024-08-23 16:50:00 Sandro Ramirez [facility] URINALYSIS 2024-08-23 16:50:00 Sandro Ramirez [facility] SAMM,POST-VOID RES,US,NON-IMAGING 2024-08-16 19:33:00 Ang[facility] POCT GLUCOSE (AUTOMATED) 2024-08-15 20:52:00 Cristy Zapata [facility] POCT GLUCOSE (AUTOMATED) 2024-08-15 20:18:00 Cristy Zapata [facility] URINALYSIS 2024-08-15 18:41:00 Wayne Zapata [facility] URINE CULTURE 2024-08-11 20:24:00 [facility] POCT URINALYSIS AUTO 2024-08-02 13:36:00 [facility] SAMM,POST-VOID RES,US,NON-IMAGING 2024-08-02 00:00:00 Angella [facility] POCT URINALYSIS AUTO 2024-07-12 18:34:00 [facility] SAMM,POST-VOID RES,US,NON-IMAGING 2024-07-12 00:00:00 [facility] POCT GLUCOSE (AUTOMATED) 2024-07-10 13:24:00 Marc [facility] POCT GLUCOSE (AUTOMATED) 2024-07-10 05:20:00 Marc [facility] POCT GLUCOSE (AUTOMATED) 2024-07-10 02:13:00 Marc [facility] POCT GLUCOSE (AUTOMATED) 2024-07-09 22:04:00 Marc [facility] POCT GLUCOSE (AUTOMATED) 2024-07-09 16:22:00 Marc [facility] POCT GLUCOSE (AUTOMATED) 2024-07-09 13:26:00 Marc [facility] POCT GLUCOSE (AUTOMATED) 2024-07-09 06:44:00 Marc [facility] POCT GLUCOSE (AUTOMATED) 2024-07-09 01:40:00 Marc [facility] POCT GLUCOSE (AUTOMATED) 2024-07-08 22:36:00 Donavon Brown [facility] TRANSTHORACIC ECHO (TTE) COMPLETE W/ CONTRAST 2024-07-08 20:45:49 April Hernandez [facility] MR STROKE BRAIN WO CONTRAST 2024-07-08 19:40:00 Y[facility] POCT GLUCOSE (AUTOMATED) 2024-07-08 17:14:00 Marc [facility] VERIFYNOW ASPIRIN TEST 2024-07-08 16:38:00 Lupillo Hernandez [facility] POCT GLUCOSE (AUTOMATED) 2024-07-08 13:19:00 Donavon Brown [facility] POCT GLUCOSE (AUTOMATED) 2024-07-08 10:54:00 [facility] POCT GLUCOSE (AUTOMATED) 2024-07-08 02:04:00 Yannick [facility] LIPID PANEL ([id number])(TOTAL CHOLESTEROL, TRIGLYCERIDES, HDL) 2024-07-08 00:38:00 [facility]ick [facility] CT ANGIOGRAM HEAD 2024-07-08 00:10:00 Juan Calvillo [facility] CT HEAD WO CONTRAST 2024-07-08 00:10:00 Juan Calvillo [facility] CT ANGIOGRAM NECK 2024-07-08 00:10:00 Juan Calvillo [facility] TROPONIN I 2024-07-07 22:14:00 Juan Calvillo [facility] BASIC METABOLIC PANEL (NA, K, CL, CO2, GLUCOSE, BUN, CREATININE, CA) 2024-07-07 22:14:00 Juan Calvillo [facility] CBC WITH DIFF 2024-07-07 22:14:00 Juan Calvillo [facility] US ABDOMINAL AORTA SCREEN AAA 2024-06-02 15:12:33 Obi-Dorene, [facility] US ABDOMINAL AORTA SCREEN AAA 2024-06-02 15:12:33 Obi-Dorene, [facility] FREE T4 2024-05-31 16:39:00 Obi-Dorene, Marcel [facility] THYROID STIMULATING HORMONE 2024-05-31 16:39:00 Marcel Toth [facility] MICROALBUMIN URINE 2024-05-31 16:39:00 Julian Toth [facility] COMP. METABOLIC PANEL ([id number]) 2024-05-31 16:39:00 [facility] LIPID PANEL ([id number])(TOTAL CHOLESTEROL, TRIGLYCERIDES, HDL) 2024-05-31 16:39:00 [facility], [facility] CBC WITH DIFF 2024-05-31 16:39:00 [facility] GLYCOSYLATED HEMOGLOBIN (A1C) 2024-05-31 16:39:00 [facility] FREE T3 2024-05-31 16:39:00 [facility]aughtersAdebayoDoreneMarcel tong [facility] CAROTID DUPLEX BILATERAL - BY VASCULAR LAB 2024-05-24 18:21:09 Ron Hoover [facility] POCT GLUCOSE (AUTOMATED) 2024-03-24 13:41:00 Sneha Nexus [facility] PHOSPHORUS 2024-03-24 09:31:00 [facility] GLUCOSE (AUTOMATED) 2024-03-23 21:55:00 Sneha Nexus [facility] POCT GLUCOSE (AUTOMATED) 2024-03-23 20:49:00 Sneha Nexus [facility] POCT GLUCOSE (AUTOMATED) 2024-03-23 16:48:00 Sneha Nexus [facility] POCT GLUCOSE (AUTOMATED) 2024-03-23 16:48:00 Sneha Nexus [facility] POCT GLUCOSE (AUTOMATED) 2024-03-23 12:34:00 Sneha [facility] POCT GLUCOSE (AUTOMATED) 2024-03-23 12:34:00 Sneha [facility] PHOSPHORUS 2024-03-23 07:57:[address] [facility] MAGNESIUM 2024-03-23 07:57:[address] [facility] IONIZED CALCIUM 2024-03-23 07:57:00 Ruby Fabian [facility] BASIC METABOLIC PANEL (NA, K, CL, CO2, GLUCOSE, BUN, CREATININE, CA) 2024-03-23 07:57:00 Jomar [facility] CBC WITH DIFF 2024-03-23 07:57:00 Ed Hadley [facility] PHOSPHORUS 2024-03-23 07:57:[address] [facility] MAGNESIUM 2024-03-23 07:57:[address] [facility] IONIZED CALCIUM 2024-03-23 07:57:00 Ruyb [facility] BASIC METABOLIC PANEL (NA, K, CL, CO2, GLUCOSE, BUN, CREATININE, CA) 2024-03-23 07:57:00 Jomar [facility] CBC WITH DIFF 2024-03-23 07:57:00 Jomar [facility] POCT GLUCOSE (AUTOMATED) 2024-03-23 02:15:00 Sneha [facility] POCT GLUCOSE (AUTOMATED) 2024-03-23 02:15:00 Sneha [facility] POCT GLUCOSE (AUTOMATED) 2024-03-22 22:22:00 Sneha [facility] POCT GLUCOSE (AUTOMATED) 2024-03-22 22:22:00 Sneha [facility] POCT GLUCOSE (AUTOMATED) 2024-03-22 18:10:00 Sneha [facility] POCT GLUCOSE (AUTOMATED) 2024-03-22 18:10:00 Sneha [facility] PHOSPHORUS 2024-03-22 16:30:[address] [facility] MAGNESIUM 2024-03-22 16:30:[address] [facility] BASIC METABOLIC PANEL (NA, K, CL, CO2, GLUCOSE, BUN, CREATININE, CA) 2024-03-22 16:30:00 Ed Hadley [facility] CBC WITH DIFF 2024-03-22 16:30:00 Ed Hadley [facility] MRSA / MSSA SCREEN BY PCR, [facility] 2024-03-22 16:30:00 Ed Hadley [facility] PHOSPHORUS 2024-03-22 16:30:[address] [facility] MAGNESIUM 2024-03-22 16:30:[address] [facility] BASIC METABOLIC PANEL (NA, K, CL, CO2, GLUCOSE, BUN, CREATININE, CA) 2024-03-22 16:30:00 Jomar [facility] CBC WITH DIFF 2024-03-22 16:30:00 Ed Hadley [facility] MRSA / MSSA SCREEN BY PCR, [facility] 2024-03-22 16:30:00 Jomar [facility] POCT GLUCOSE (AUTOMATED) 2024-03-22 16:28:00 Christi [facility] POCT GLUCOSE (AUTOMATED) 2024-03-22 16:28:00 Christi Hoover [facility] CAROTID ENDARTERECTOMY 2024-03-22 12:05:00 Ernesto Hoover [facility] CAROTID ENDARTERECTOMY 2024-03-22 12:05:00 Ernesto Hoover [facility] ABORH CONFIRMATION (LAB ONLY) 2024-03-22 10:59:00 Monica Owens [facility] ABORH CONFIRMATION (LAB ONLY) 2024-03-22 10:59:00 Monica Owens [facility] POCT GLUCOSE(AGE >30DAYS) 2024-03-22 10:49:00 Monica Owens Leia [facility] POCT GLUCOSE(AGE >30DAYS) 2024-03-22 10:49:00 Monica Owens Leia [facility] POCT GLUCOSE (AUTOMATED) 2024-03-22 10:48:00 Christi Hoover [facility] POCT GLUCOSE (AUTOMATED) 2024-03-22 10:48:00 Chrsiti Hoover [facility] HB ABO GROUPING 2024-03-19 15:46:00 Ron Hoover [facility] HOME HEALTH - OTHER 2024-03-18 17:24:19 Doctor Jean-Pierre vu, Bartley [facility] EKG-12 LEAD 2024-03-03 06:28:35 Rosalva Finch [facility] POCT GLUCOSE (AUTOMATED) 2024-03-03 06:01:00 Gladis Finch [facility] CT HEAD WO CONTRAST 2024-03-03 05:06:59 Gee Finch [facility] TROPONIN I 2024-03-03 04:41:00 Rosalva Finch [facility] BASIC METABOLIC PANEL (NA, K, CL, CO2, GLUCOSE, BUN, CREATININE, CA) 2024-03-03 04:41:00 [facility] CBC WITH DIFF 2024-03-03 04:41:00 Dao [facility] POCT GLUCOSE (AUTOMATED) 2024-03-03 04:15:00 [facility] HCV ANTIBODY 2024-02-22 18:22:00 Pat Ochoa [facility] DME/SUPPLY JUSTIFICATION 2024-02-22 17:07:53 Doc juan Unassigned, Bartley [facility] EXTERNAL PROVIDER RECORDS 2024-01-12 05:01:00 Do ctor Unassigned, Bartley [facility] AUTHORIZATION TO RELEASE PHI TO [facility] 2023-12-29 06:01:00 Doctor Unassigned, Bartley [facility] HB ECG ROUTINE & RHYTHM STRIP 2023-12-28 15:18:11 Allyson Fink [facility] DME/SUPPLY JUSTIFICATION 2023-12-07 06:01:00 Doc tor Unassigned, Bartley [facility] ASSIGNMENT OF BENEFITS 2023-11-27 21:19:25 Docto r Unassigned, Bartley [facility] Encounters Start Date/Time End Date/Time Encounter Type Admission Type Attending Clinicians Care Facility Care Department Encounter ID Source 2025-03-28 11:58:02 Outpatient R RILEY GRANADOS [facility] [id number] [facility] 2024-08-12 09:01:35 Outpatient R LOUIEWilyLYNN [facility] KRISTIANJean-Pierre [id number] [facility] 2025-07-17 09:45:00 2025-07-17 10:00:00 [employer] Visit R 2, Adc Lab Janey [facility] BUILDING 1.2.840.114 350.1.13.10 4.2.7.2.[id number] [facility] 2025-07-17 09:30:00 2025-07-17 09:30:00 Outpatient R [facility] [id number] [facility] 2025-07-12 00:00:00 2025-07-13 09:48:13 Telephone Roma Davison [facility] ([place] 1.840.114 350.1.13.10 4.2.7.2.[id number] [facility] 2025-07-10 00:00:00 2025-07-10 13:18:15 Telephone Allyson Fink [facility] BUILDING 1.2.840.114 350.1.13.10 4.2.7.2.[id number] [facility] 2025-07-07 09:00:00 2025-07-07 12:13:34 Office Visit Lasha Delcid [facility] 1.2.840.114 350.1.13.10 4.2.7.2.[id number] [facility] 2025-07-04 00:00:00 2025-07-04 08:07:50 Telephone Marcel Toth [facility] BUILDING 1.2.840.114 350.1.13.10 4.2.7.2.[id number] [facility] 2025-07-03 10:30:00 2025-07-03 11:34:51 Office Visit R Roma Davison [facility] NAL BUILDING 1.2.840.114 350.1.13.10 4.2.7.2.[id number] [facility] 2025-07-02 00:00:00 2025-07-02 13:31:18 [facility] 1.2.840.114 350.1.13.10 4.2.7.2.[id number] [facility] 2025-06-19 00:00:00 2025-06-19 11:17:36 [facility] BU[facility]ING 1.2.840.114 350.1.13.10 4.2.7.2.[id number] [facility] 2025-06-16 00:00:00 2025-06-16 13:44:31 [facility] NAL BUILDING 1.2.840.114 350.1.13.10 4.2.7.2.[id number] [facility] 2025-04-26 00:00:00 2025-05-27 18:36:57 Patient Secure [facility] 1.2.840.114 350.1.13.10 4.2.7.2.[id number] [facility] 2025-05-25 11:00:00 2025-05-25 11:20:00 Office Visit R Jace, [facility] PROFESSIO NAL BUILDING 1.2.840.114 350.1.13.10 4.2.7.2.[id number] [facility] 2025-05-22 15:20:00 2025-05-22 15:20:00 Out[facility] [id number] [facility] 2025-04-20 00:00:00 2025-05-08 17:04:12 Refill Joshua-Dorene [facility] PROFESSIO NAL BUILDING 1.2.840.114 350.1.13.10 4.2.7.2.[id number] [facility] 2025-04-20 00:00:00 2025-04-20 16:40:06 Refill Joshua-Dorene [facility] 1.2.840.114 350.1.13.10 4.2.7.2.[id number] [facility] 2025-04-19 13:00:00 2025-04-19 13:36:27 Office Visit R Janey [facility] PROFESSIO NAL BUILDING 1.2.840.114 350.1.13.10 4.2.7.2.[id number] [facility] 2025-04-03 00:00:00 2025-04-03 09:51:49 Telephone Riley Granados [facility] ([place] 1.2.840.114 350.1.13.10 4.2.7.2.[id number] [facility] 2025-03-31 00:00:00 2025-03-31 14:47:32 Transition of Care Yaz Jefferson Christine A [facility] [place] [place] 1.2.840.114 350.1.13.10 4.2.7.2.[id number] [facility] 2025-03-27 00:08:00 2025-03-30 17:36:00 Hospital Encounter MARGOTH MCFADDEN [facility] [id number] [facility] 2025-03-29 00:00:00 2025-03-29 00:00:00 Outpatient R ARIADNE LASSITER BASHAR [facility] [id number] [facility] 2025-03-27 00:00:00 2025-03-27 13:19:44 Telephone [facility] 1.2.840.114 350.1.13.10 4.2.7.2.[id number] [facility] 2025-03-24 00:00:00 2025-03-24 11:33:14 Refill Obi-Dorene [facility] BUILDING 1.2.840.114 350.1.13.10 4.2.7.2.[id number] [facility] 2025-03-22 00:00:00 2025-03-23 09:23:18 Refill Obi-Dorene [facility] BUILDING 1.2.840.114 350.1.13.10 4.2.7.2.[id number] [facility] 2025-03-21 09:20:00 2025-03-21 09:48:45 Office Visit R [facility] 1.2.840.114 350.1.13.10 4.2.7.2.[id number] [facility] 2025-03-16 13:20:00 2025-03-16 13:20:00 Outpatient R OBI-DORENE [id number] [facility] 2025-03-13 00:00:00 2025-03-13 14:24:52 [facility] 1.2.840.114 350.1.13.10 4.2.7.2.[id number] [facility] 2025-02-06 00:00:00 2025-03-11 18:20:50 Patient Secure Msg [facility]admini [facility] 1.2.840.114 350.1.13.10 4.2.7.2.[id number] [facility] 2025-03-07 00:00:00 2025-03-08 09:31:11 Natanael Lucas [facility] 1.2.840.114 350.1.13.10 4.2.7.2.[id number] [facility] 2025-02-01 00:00:00 2025-03-04 18:15:15 Patient Secure Msg Doctor Unassigned, Bartley Doctor Unassigned, Bartley [facility] BUILDING 1.2.840.114 350.1.13.10 4.2.7.2.[id number] [facility] 2025-02-22 00:00:00 2025-02-22 16:33:53 Telephone [facility] 1.2.840.114 350.1.13.10 4.2.7.2.[id number] [facility] 2025-02-22 11:20:00 2025-02-22 11:37:40 Outpatient [facility] [id number] [facility] 2025-02-22 11:20:00 2025-02-22 11:37:40 [facility] 1.20.114 350.1.13.10 4.2.7.2.[id number] [facility] 2025-02-22 00:00:00 2025-02-22 00:00:00 Out[facility] [id number] [facility] 2025-02-20 00:00:00 2025-02-20 16:06:28 Telephone Lynn Doll [facility] BUILDING 1.20.114 350.1.13.10 4.2.7.2.[id number] [facility] 2025-02-20 11:20:00 2025-02-20 12:22:22 Outpatient R OBI-DORENEMARCEL TONG OBI-DORENE [facility] [id number] [facility] 2025-02-20 11:20:00 2025-02-20 12:22:22 [facility] 1.20.114 350.1.13.10 4.2.7.2.[id number] [facility] 2025-02-16 00:00:00 2025-02-16 16:52:29 Telephone Riley Granados [facility] ([place] 1.2840.114 350.1.13.10 4.2.7.2.[id number] [facility] 2025-02-15 00:00:00 2025-02-15 16:57:35 Telephone Riley Granados [facility] 1.2840.114 350.1.13.10 4.2.7.2.[id number] [facility] 2025-02-12 19:32:00 2025-02-14 19:25:00 Outpatient U ARIADNE LASSITER BASHAR [facility] [id number] [facility] 2025-02-12 19:32:00 2025-02-14 19:25:00 Hospital Encounter Ariadne Lassiter [facility] ([place] 1.2.840.114 350.1.13.10 4.2.7.2.[id number] [facility] 2025-02-13 16:15:00 2025-02-13 17:15:00 Surgery Riley Granados [facility] ([place] 1.20.114 350.1.13.10 4.2.7.2.[id number] [facility] 2025-02-13 00:00:00 2025-02-13 17:10:10 Telephone Mauri Bettencourt [facility] ([place] 1.2.114 350.1.13.10 4.2.7.2.[id number] [facility] 2025-02-07 00:00:00 2025-02-07 15:03:28 Transition of Care Yaz Jefferson Christine A [place] 1.2840.114 350.1.13.10 4.2.7.2.[id number] [facility] 2025-02-07 13:30:00 2025-02-07 13:30:00 Outpatient LYNN BLANKENSHIP [facility] [id number] [facility] 2025-02-06 00:00:00 2025-02-06 16:51:[address]ink [facility] PROFESSIO [facility] 1.2840.114 350.1.13.10 4.2.7.2.[id number] [facility] 2025-02-06 11:10:00 2025-02-06 16:35:00 Hospital Encounter Adela Ward [facility] 1.2.840.114 350.1.13.10 4.2.7.2.[id number] [facility] 2025-02-06 09:40:00 2025-02-06 09:46:50 [facility] [id number] [facility] 2025-02-06 09:40:00 2025-02-06 09:46:50 [facility] PROFESSIO NAL BUILDING 1.2.840.114 350.1.13.10 4.2.7.2.[id number] [facility] 2025-02-06 08:20:00 2025-02-06 09:00:42 Office Visit Marcel Toth [facility] PROFESSIO NAL BUILDING 1.2.840.114 350.1.13.10 4.2.7.2.[id number] [facility] 2025-01-31 00:00:00 2025-01-31 23:33:59 Telephone Marcel Toth 1.2.840.1 19114.1.1 3.104.2.7 .3.922434 .[id number] [facility] 2025-01-31 00:00:00 2025-01-31 16:26:32 Telephone Lynn Doll 1.2.840.1 93385.1.1 3.104.2.7 .3.490056 .[id number] [facility] 2025-01-31 10:15:00 2025-01-31 10:30:00 Office Visit Lynn Doll 1.2.840.1 95096.1.1 3.104.2.7 .3.096190 .[id number] [facility] 2025-01-31 10:15:00 2025-01-31 10:15:00 Outpatient R MAURY DOLLTH [facility] [id number] [facility] 2025-01-30 10:15:00 2025-01-30 12:57:35 Outpatient R ORVILLE SHAW CRAIG [facility] [id number] [facility] 2025-01-30 10:15:00 2025-01-30 12:57:35 Ancillary Visit [facility] 1.2.840.1 63379.1.1 3.104.2.7 .3.591373 .[id number] [facility] 2025-01-30 00:00:00 2025-01-30 00:00:00 Travel 1.2.840.1 84383.1.1 3.104.2.7 .3.419150 .8 1.2.840.114 350.1.13.10 [address]7.3[id number] [facility] 2025-01-26 00:00:00 2025-01-27 16:03:51 Telephone Marcel Toth 1.2.840.1 86661.1.1 3.104.2.7 .3.969812 .[id number] [facility] 2025-01-26 00:00:00 2025-01-26 11:13:30 Patient Outreach Shelby Obrien 1.2.840.1 63234.1.1 3.104.2.7 .3.295862 .[id number] [facility] 2025-01-26 00:00:00 2025-01-26 08:56:18 Patient Secure Msg Obi-Dorene , Marcel 1.2.840.1 42136.1.1 3.104.2.7 .3.095136 .[id number] [facility] 2025-01-23 16:15:00 2025-01-23 16:15:00 Outpatient R SALEEM ERICKSON BRENT [facility] [id number] [facility] 2025-01-23 00:00:00 2025-01-23 11:34:33 Telephone Mindy Andino 1.2.840.1 80911.1.1 3.104.2.7 .3.472562 .[id number] [facility] 2025-01-21 00:00:00 2025-01-21 00:00:00 Travel 1.2.840.1 14825.1.1 3.104.2.7 .3.465482 .8 1.2.840.114 350.1.13.10 4.2[address]7.3[id number] [facility] 2025-01-17 16:00:00 2025-01-17 16:52:08 Outpatient R ORVILLE SHAW CRAIG [facility] [id number] [facility] 2025-01-17 16:00:00 2025-01-17 16:52:08 Ancillary Visit [facility] 1.2.840.1 17365.1.1 3.104.2.7 .3.986175 .[id number] [facility] 2025-01-17 00:00:00 2025-01-17 00:00:00 Travel 1.2.840.1 17187.1.1 3.104.2.7 .3.770334 .8 1.2.840.114 350.1.13.10 4[address]7.3[id number] [facility] 2025-01-16 09:45:00 2025-01-16 09:45:00 Outpatient HALINA LOMELI [facility] [id number] [facility] 2025-01-06 00:00:00 2025-01-15 13:40:37 Patient Secure Msg Doctor Unassigned, Bartley 1.2.840.1 79419.1.1 3.104.2.7 .3.674120 .[id number] [facility] 2025-01-10 11:08:00 2025-01-10 16:32:00 Emergency X BEHZADI, ALEX BEHZADI, ALEX [facility] ERT [id number] [facility] 2025-01-10 11:08:00 2025-01-10 16:32:00 Emergency Destinee, Alex A 1.2.840.1 28714.1.1 3.104.2.7 .3.227302 .[id number] [facility] 2025-01-04 00:00:00 2025-01-10 02:04:43 Orders Only Doctor Unassigned, [place] 1.2.840.1 38924.1.1 3.104.2.7 .3.917836 .[id number] [facility] 2025-01-10 00:00:00 2025-01-10 00:00:00 Travel 1.2.840.1 68322.1.1 3.104.2.7 .3.580249 .8 1.2.840.114 350.1.13.10 4.2[address]7.3[id number] [facility] 2025-01-06 00:00:00 2025-01-06 16:16:34 Patient Secure Msg Doctor Unassigned, [place] 1.2.840.1 09578.1.1 3.104.2.7 .3.200595 .[id number] [facility] 2025-01-05 00:00:00 2025-01-05 16:29:14 Telephone Obwily-Marcel Catherine 1.2.840.1 20064.1.1 3.104.2.7 .3.859569 .[id number] [facility] 2025-01-02 00:00:00 2025-01-04 08:07:52 Patient Secure Msg Obi-Marcel Catherine 1.2.840.1 95527.1.1 3.104.2.7 .3.220974 .[id number] [facility] 2024-12-30 00:00:00 2024-12-30 16:26:23 Telephone Lynn Doll 1.2.840.1 60067.1.1 3.104.2.7 .3.456306 .[id number] [facility] 2024-12-29 13:00:00 2024-12-29 13:30:43 Office Visit Allyson Fink 1.2.840.1 52152.1.1 3.104.2.7 .3.253245 .[id number] [facility] 2024-12-29 13:00:00 2024-12-29 13:00:00 Outpatient R ALLYSON FINK [facility] [id number] [facility] 2024-12-29 00:00:00 2024-12-29 00:00:00 Travel 1.2.840.1 69221.1.1 3.104.2.7 .3.743776 .8 1.2.840.114 350.1.13.10 4.2.7.3[id number] [facility] 2024-12-28 08:15:00 2024-12-28 11:40:00 Outpatient R MINDY ANDINO PAMELA [facility] CAROLYN [id number] [facility] 2024-12-28 08:15:00 2024-12-28 11:40:00 Hospital Encounter Mindy Andino 1.2.840.1 16249.1.1 3.104.2.7 .3.473520 .[id number] [facility] 2024-12-28 08:50:00 2024-12-28 09:55:00 Surgery Mindy Andino 1.2.840.1 06700.1.1 3.104.2.7 .3.188583 .[id number] [facility] 2024-12-28 08:46:00 2024-12-28 09:45:00 Anesthesia Event JarrodsnowBrennen Joshua 1.2.840.1 82771.1.1 3.104.2.7 .3.539447 .[id number] [facility] 2024-12-26 00:00:00 2024-12-26 13:26:58 Refill Marcel Toth 1.2.840.1 98094.1.1 3.104.2.7 .3.198498 .[id number] [facility] 2024-12-22 00:00:00 2024-12-22 13:46:07 Telephone Lynn Doll 1.2.840.1 68511.1.1 3.104.2.7 .3.161879 .[id number] [facility] 2024-12-20 00:00:00 2024-12-20 17:41:57 Telephone Lynn Doll 1.2.840.1 49534.1.1 3.104.2.7 .3.273114 .[id number] [facility] 2024-12-20 11:45:00 2024-12-20 13:16:33 Outpatient R LYNN DOLL [facility] [id number] [facility] 2024-12-20 11:45:00 2024-12-20 13:16:33 Office Visit Lynn Doll 1.2.840.1 61357.1.1 3.104.2.7 .3.119189 .[id number] [facility] 2024-12-19 00:00:00 2024-12-19 00:00:00 Travel 1.2.840.1 37289.1.1 3.104.2.7 .3.240497 .8 1.2.840.114 350.1.13.10 4[address]7.[id number] [facility] 2024-12-12 00:00:00 2024-12-13 19:19:40 Telephone Marcel Toth 1.2.840.1 14699.1.1 3.104.2.7 .3.475248 .[id number] [facility] 2024-12-12 00:00:00 2024-12-13 11:45:29 Refill Allyson Fink 1.2.840.1 06131.1.1 3.104.2.7 .3.810081 .[id number] [facility] 2024-11-08 00:00:00 2024-12-10 18:19:20 Patient Secure Msg Marcel Toth 1.2.840.1 23777.1.1 3.104.2.7 .3.788504 .[id number] [facility] 2024-03-18 00:00:00 2024-12-10 07:42:05 Orders Only Doctor Unassigned, [place] Doctor Unassigned, [place] [facility] 1.2.840.114 350.1.13.10 4.2.7.2.[id number] [facility] 2024-07-22 00:00:00 2024-12-10 06:54:43 Orders Only Gabriella Nobles [place] S [facility] 1.2.840.114 350.1.13.10 4.2.7.2.[id number] [facility] 2024-02-22 00:00:00 2024-12-10 02:09:54 Orders Only Doctor Unassigned, [place] Doctor Unassigned, [place] [facility] 1.2.840.114 350.1.13.10 4.2.7.2.[id number] [facility] 2024-12-06 13:00:00 2024-12-06 13:49:37 Outpatient R ORVILLE SHAW CRAIG [facility] [id number] [facility] 2024-12-06 13:00:00 2024-12-06 13:49:37 Ancillary Visit [facility] 1..840.1 40955.1.1 3.104.2.7 .3.072216 .[id number] [facility] 2024-12-06 11:40:00 2024-12-06 12:53:01 Outpatient LASHA DELCID [facility]ARD [facility] [id number] [facility] 2024-12-06 11:40:00 2024-12-06 12:53:01 Office Visit Lasha Aguilar 1.2.840.1 20833.1.1 3.104.2.7 .3.917889 .[id number] [facility] 2024-12-06 10:40:00 2024-12-06 10:40:00 Outpatient LASHA DELCID [facility]ARD [facility] [id number] [facility] 2024-12-06 00:00:00 2024-12-06 00:00:00 Travel 1.2.840.1 91428.1.1 3.104.2.7 .3.805451 .8 1.2.840.114 350.1.13.10 [id number] [facility] 2024-11-24 16:15:00 2024-11-24 16:15:00 Outpatient R AUDREYBENTON HALINA [facility] [id number] [facility] 2024-11-22 16:00:00 2024-11-22 16:59:18 Outpatient R [place] SHAW CRAIG [facility] [id number] [facility] 2024-11-22 16:00:00 2024-11-22 16:59:18 Ancillary Visit [facility] 1.2.840.1 21159.1.1 3.104.2.7 .3.454307 .[id number] [facility] 2024-11-21 00:00:00 2024-11-21 20:52:05 Refill Marcel Toth 1.2.840.1 91058.1.1 3.104.2.7 .3.363243 .[id number] [facility] 2024-11-11 00:00:00 2024-11-17 08:29:53 Telephone Bobbi Saunders 1.2.840.1 90457.1.1 3.104.2.7 .3.845839 .[id number] [facility] 2024-11-16 14:19:00 2024-11-16 18:15:00 Emergency X KIAH GARCIA ROBERT [facility] [id number] [facility] 2024-11-16 14:19:00 2024-11-16 18:15:00 Emergency Kiah Garcia 1.2.840.1 47034.1.1 3.104.2.7 .3.337815 .[id number] [facility] 2024-11-16 00:00:00 2024-11-16 00:00:00 Travel 1.2.840.1 45624.1.1 3.104.2.7 .3.953657 .8 1.2.840.114 350.1.13.10 [address]7.3[id number] [facility] 2024-11-11 08:30:00 2024-11-11 09:17:17 Outpatient R BOBBI SAUNDERS [facility] [id number] [facility] 2024-11-11 08:30:00 2024-11-11 09:17:17 Office Visit Bobbi Saunders 1.2.840.1 66413.1.1 3.104.2.7 .3.981419 .[id number] [facility] 2024-11-11 00:00:00 2024-11-11 00:00:00 Scanned Documents Doctor Unassigned, [place] 1.2.840.1 18562.1.1 3.104.2.7 .3.625450 .[id number] [facility] 2024-11-11 00:00:00 2024-11-11 00:00:00 Travel 1.2.840.1 48704.1.1 3.104.2.7 .3.999866 .8 1.2.840.114 350.1.13.10 [address]7.3[id number] [facility] 2024-11-09 00:00:00 2024-11-09 14:07:28 Pat Sommer 1.2.840.1 09692.1.1 3.104.2.7 .3.273019 .8 [id number] [facility] 2024-11-09 00:00:00 2024-11-09 11:28:53 Telephone Marcel Toth 1.2.840.1 33629.1.1 3.104.2.7 .3.558009 .[id number] [facility] 2024-11-07 00:00:00 2024-11-08 08:03:49 Patient Secure Msg Marcel Toth 1.2.840.1 18168.1.1 3.104.2.7 .3.764110 .[id number] [facility] 2024-11-07 09:00:00 2024-11-07 09:02:19 [employer] Visit RafyMarcel Thornton 2, [facility] Lab 1.2.840.1 28998.1.1 3.104.2.7 .3.214635 .[id number] [facility] 2024-11-07 08:00:00 2024-11-07 08:39:08 Outpatient R RAFYWilyAdebayoMARCEL CATHERINE RAFYHILLARY MARCEL [facility] [id number] [facility] 2024-11-07 08:00:00 2024-11-07 08:39:08 Office Visit Marcel Toth 1.2.840.1 27519.1.1 3.104.2.7 .3.048710 .[id number] [facility] 2024-11-07 00:00:00 2024-11-07 00:00:00 Travel 1.2.840.1 46096.1.1 3.104.2.7 .3.578684 .8 1.2.840.114 350.1.13.10 4[address]2.7.3[id number] [facility] 2024-10-28 14:30:00 2024-10-28 14:30:00 Outpatient R BOBBI SAUNDERS [facility] [id number] [facility] 2024-10-11 00:00:00 2024-10-11 13:46:03 Telephone ObVinayakDorene , Marcel [facility] 1.2.840.114 350.1.13.10 4.2.7.2.[id number] [facility] 2024-10-11 10:00:00 2024-10-11 11:01:38 [facility] [id number] [facility] 2024-10-11 10:00:00 2024-10-11 11:01:38 Office Visit Angella [facility] PRIMARY AND SPECIALTY CARE 1.2.840.114 350.1.13.10 4.2.7.2.[id number] [facility] 2024-10-10 15:00:00 2024-10-10 15:30:00 Nurse Visit Nurse, [facility] Surgery Lynn Doll Nurse, [facility] Surgery [facility] PRIMARY AND SPECIALTY CARE 1.2840.114 350.1.13.10 4.2.7.2.[id number] [facility] 2024-10-10 15:00:00 2024-10-10 15:00:00 Outpatient R [facility] [id number] [facility] 2024-10-06 00:00:00 2024-10-07 17:39:52 Telephone Angella [facility] PRIMARY AND SPECIALTY CARE 1.2.840.114 350.1.13.10 4.2.7.2.[id number] [facility] 2024-10-04 00:00:00 2024-10-04 13:33:26 Patient Outreach Shelby Obrien Jocelyn [facility] 1.2.840.114 350.1.13.10 4.2.7.2.[id number] [facility] 2024-10-04 13:00:00 2024-10-04 13:00:00 Outpatient R ALLYSON FINK [facility] [id number] [facility] 2024-09-28 11:20:00 2024-09-28 11:20:00 Outpatient R OBI-DORENE , MARCEL OBI-DORENE , MARCEL [facility] [id number] [facility] 2024-08-22 00:00:00 2024-09-24 18:22:39 Patient Secure Msg Lynn Doll [facility] PRIMARY AND SPECIALTY CARE 1.2840.114 350.1.13.10 4.2.7.2.[id number] [facility] 2024-08-23 00:00:00 2024-09-24 18:21:14 Patient Secure Msg Rafyi-Marcel Catherine [facility] 1.2840.114 350.1.13.10 4.2.7.2.[id number] [facility] 2024-08-23 00:00:00 2024-09-24 18:20:44 Patient Secure Msg Allyson Fink [facility] 1.2840.114 350.1.13.10 4.2.7.2.[id number] [facility] 2024-09-20 00:00:00 2024-09-20 14:36:25 Patient Outreach Shelby Obrien Jocelyn [facility] NAL BUILDING 1.20.114 350.1.13.10 4.2.7.2.[id number] [facility] 2024-09-19 00:00:00 2024-09-19 14:35:12 Nurse Triage Latosha Roberts Sharon A [facility] 1.2.840.114 350.1.13.10 4.2.7.2.[id number] [facility] 2024-08-12 00:00:00 2024-09-17 18:27:14 Patient Secure Msg Angella [facility] PRIMARY AND SPECIALTY CARE 1.2840.114 350.1.13.10 4.2.7.2.[id number] [facility] 2024-09-15 00:00:00 2024-09-15 13:52:46 Telephone Obi-Dorene [facility] 1.2840.114 350.1.13.10 4.2.7.2.[id number] [facility] 2024-09-13 00:00:00 2024-09-13 13:41:18 Telephone Obi-Dorene [facility] 1.2840.114 350.1.13.10 4.2.7.2.[id number] [facility] 2024-09-13 13:00:00 2024-09-13 13:28:57 Outpatient R [facility] [id number] [facility] 2024-09-13 13:00:00 2024-09-13 13:28:57 Office Visit Angella [facility] PRIMARY AND SPECIALTY CARE 1.2840.114 350.1.13.10 4.2.7.2.[id number] [facility] 2024-09-13 00:00:00 2024-09-13 12:24:17 Telephone ObiDorene [facility] 1.2840.114 350.1.13.10 4.2.7.2.[id number] [facility] 2024-09-12 00:00:00 2024-09-12 09:53:24 Telephone ObiDorene [facility] 1.2.840.114 350.1.13.10 4.2.7.2.[id number] [facility] 2024-09-08 00:00:00 2024-09-08 15:36:17 Telephone Beatricewalli [facility] NAL BUILDING 1.2.840.114 350.1.13.10 4.2.7.2.[id number] [facility] 2024-09-07 09:30:00 2024-09-07 10:30:00 Office Visit Castillo Mendoza [facility] MEDICAL OFFICE BUILDING 1.2.840.114 350.1.13.10 4.2.7.2.[id number] [facility] 2024-09-07 09:30:00 2024-09-07 09:30:00 Outpatient R CASTILLO MENDOZA [facility] [id number] [facility] 2024-08-30 13:20:00 2024-08-30 13:20:00 Outpatient R OBI-DORENE MARCEL OBI-DORENE , [facility] [id number] [facility] 2024-08-29 16:20:00 2024-08-29 16:20:00 Office Visit Janey [facility] BUILDING 1.2.840.114 350.1.13.10 4.2.7.2.[id number] [facility] 2024-08-29 16:20:00 2024-08-29 15:48:57 Outpatient R OBI-DORENE Jean-PierreMARCEL OBI-DORENE [facility] [id number] [facility] 2024-08-29 14:30:00 2024-08-29 14:57:07 Office Visit Roma Davison [facility] NAL BU[facility] 1.2.840.114 350.1.13.10 4.2.7.2.[id number] [facility] 2024-08-29 13:00:00 2024-08-29 13:24:24 Nurse Visit Nurse, [facility] Surgery Lynn Doll Nurse, [facility] Surgery [facility] 1.2.840.114 350.1.13.10 4.2.7.2.[id number] [facility] 2024-08-26 00:00:00 2024-08-29 07:53:33 Telephone Marcel Toth [facility] BUILDING 1.2.840.114 350.1.13.10 4.2.7.2.[id number] [facility] 2024-08-22 00:00:00 2024-08-27 10:55:48 Telephone Lynn Doll [facility] PRIMARY AND SPECIALTY CARE 1.2.840.114 350.1.13.10 4.2.7.2.[id number] [facility] 2024-08-26 00:00:00 2024-08-26 14:20:01 Telephone Lynn Doll [facility] BUILDING 1.2.840.114 350.1.13.10 4.2.7.2.[id number] [facility] 2024-08-24 19:41:00 2024-08-26 14:08:00 Outpatient R JHONY MADDEN [facility] [id number] [facility] 2024-08-24 19:41:00 2024-08-26 14:08:00 Hospital Encounter Jhony Madden [facility] 1.2.840.114 350.1.13.10 4.2.7.2.[id number] [facility] 2024-08-23 00:00:00 2024-08-26 11:27:57 Patient Secure Roma Head [facility] BUILDING 1.2.840.114 350.1.13.10 4.2.7.2.[id number] [facility] 2024-08-25 09:35:00 2024-08-25 11:44:00 Surgery Lynn Doll [facility] 1.2.840.114 350.1.13.10 4.2.7.2.[id number] [facility] 2024-08-25 00:00:00 2024-08-25 09:09:55 Patient Outreach Shelby Obrien Jocelyn [facility] BUILDING 1.2.840.114 350.1.13.10 4.2.7.2.[id number] [facility] 2024-08-24 00:00:00 2024-08-24 16:21:31 Telephone Christianolambert Lynn [facility] BUILDING 1.2.840.114 350.1.13.10 4.2.7.2.[id number] [facility] 2024-08-24 00:00:00 2024-08-24 08:15:03 Telephone Marcel Toth [facility] BUILDING 1.2.840.114 350.1.13.10 4.2.7.2.[id number] [facility] 2024-08-23 11:06:00 2024-08-23 16:47:00 Emergency X SANDRO RAMIREZ [facility] [id number] [facility] 2024-08-23 11:06:00 2024-08-23 16:47:00 Emergency Sandro Ramirez [facility] 1.2.840.114 350.1.13.10 4.2.7.2.[id number] [facility] 2024-08-23 10:00:00 2024-08-23 10:46:46 Outpatient R MARCEL TOTH [facility] [id number] [facility] 2024-08-23 10:00:00 2024-08-23 10:46:46 [facility] 1.2.840.114 350.1.13.10 4.2.7.2.[id number] [facility] 2024-08-21 00:00:00 2024-08-21 11:11:50 Telephone Lnyn Doll [facility] 1.2.840.114 350.1.13.10 4.2.7.2.[id number] [facility] 2024-08-19 00:00:00 2024-08-19 13:18:45 Patient Outreach Shelby Obrien Jocelyn [facility] BUILDING 1.2.840.114 350.1.13.10 4.2.7.2.[id number] [facility] 2024-08-18 00:00:00 2024-08-18 16:47:28 Patient Outreach Shelby Obrien Jocelyn [facility] BUILDING 1.2.840.114 350.1.13.10 4.2.7.2.[id number] [facility] 2024-08-18 13:15:00 2024-08-18 13:30:00 [employer] Visit 2, Adc Lab Lynn Doll 2, Adc Lab [facility] PROFESSIO NAL BUILDING 1.2840.114 350.1.13.10 4.2.7.2.[id number] [facility] 2024-08-18 13:15:00 2024-08-18 13:15:00 Outpatient R LYNN DOLL [facility] [id number] [facility] 2024-08-17 00:00:00 2024-08-17 09:43:06 Telephone Raudel Ketty Ketty Pierce [facility] 1.2840.114 350.1.13.10 4.2.7.2.[id number] [facility] 2024-08-15 00:00:00 2024-08-16 16:49:23 Patient Secure Msg Angella [facility] PRIMARY AND SPECIALTY CARE 1.2840.114 350.1.13.10 4.2.7.2.[id number] [facility] 2024-08-16 14:00:00 2024-08-16 14:40:05 Outpatient R LYNN DOLL [facility] [id number] [facility] 2024-08-16 14:00:00 2024-08-16 14:40:05 Nurse Visit Nurse, [facility] Surgery Lynn Doll Nurse, [facility] Surgery [facility] PRIMARY AND SPECIALTY CARE 1.2840.114 350.1.13.10 4.2.7.2.[id number] [facility] 2024-08-16 00:00:00 2024-08-16 08:54:06 [facility] 1.2.840.114 350.1.13.10 4.2.7.2.[id number] [facility] 2024-08-15 00:00:00 2024-08-15 20:02:56 Telephone Angella [facility] 1.2840.114 350.1.13.10 4.2.7.2.[id number] [facility] 2024-08-15 00:00:00 2024-08-15 17:09:22 Telephone Angella [facility] 1.2840.114 350.1.13.10 4.2.7.2.[id number] [facility] 2024-08-15 13:02:00 2024-08-15 16:27:00 Emergency X WAYNE ZAPATA PHILLIP [facility] [id number] [facility] 2024-08-15 13:02:00 2024-08-15 16:27:00 Emergency Wayne Zapata [facility] 1.2840.114 350.1.13.10 4.2.7.2.[id number] [facility] 2024-08-15 15:00:00 2024-08-15 15:00:00 Outpatient R CHETNA KLAUSBENJA [facility] [id number] [facility] 2024-08-15 00:00:00 2024-08-15 11:09:53 Nurse Triage Latosha Roberts Sharon A [facility] 1.20.114 350.1.13.10 4.2.7.2.[id number] [facility] 2024-08-15 00:00:00 2024-08-15 10:09:35 Patient Outreach Shelby Obrien Jocelyn [facility] 1.2840.114 350.1.13.10 4.2.7.2.[id number] [facility] 2024-07-11 00:00:00 2024-08-13 18:25:29 Patient Secure Msg Lasha Aguilar [facility] 1.2840.114 350.1.13.10 4.2.7.2.[id number] [facility] 2024-07-12 00:00:00 2024-08-13 18:22:06 Patient Secure Msg Allyson Fink [facility] BUILDING 1.2840.114 350.1.13.10 4.2.7.2.[id number] [facility] 2024-07-13 00:00:00 2024-08-13 18:21:34 Patient Secure Msg Doctor Unassigned, Bartley Doctor Unassigned, Bartley [facility] 1.20.114 350.1.13.10 4.2.7.2.[id number] [facility] 2024-08-11 00:00:00 2024-08-11 15:23:27 Patient Outreach ObrienShelby Jocelyn [facility] BUILDING 1.2840.114 350.1.13.10 4.2.7.2.[id number] [facility] 2024-08-11 14:15:00 2024-08-11 15:09:39 Outpatient R RON HOOVER [facility] [id number] [facility] 2024-08-11 14:15:00 2024-08-11 15:09:39 Office Visit Ron Hoover [facility] PRIMARY AND SPECIALTY CARE 1.2.114 350.1.13.10 4.2.7.2.[id number] [facility] 2024-08-11 00:00:00 2024-08-11 14:14:41 Telephone ChristianoLynn verdin [facility] PRIMARY AND SPECIALTY CARE 1.2.840.114 350.1.13.10 4.2.7.2.[id number] [facility] 2024-08-09 08:49:58 2024-08-09 23:59:00 Outpatient R CHRISTIANOLYNN VERDIN [facility] [id number] [facility] 2024-08-09 08:49:58 2024-08-09 23:59:00 Hospital Encounter Christianolambert [facility] 1.2.840.114 350.1.13.10 4.2.7.2.[id number] [facility] 2024-08-09 00:00:00 2024-08-09 09:29:44 Patient Outreach Shelby Obrien Jocelyn [facility] 1.2.840.114 350.1.13.10 4.2.7.2.[id number] [facility] 2024-08-08 00:00:00 2024-08-08 21:21:32 Telephone Marcel Toth [facility] NAL BUILDING 1.2.840.114 350.1.13.10 4.2.7.2.[id number] [facility] 2024-08-08 11:40:00 2024-08-08 13:15:06 Outpatient R LASHA AGUILAR HOWARD [facility] [id number] [facility] 2024-08-08 11:40:00 2024-08-08 13:15:06 Office Visit Lasha Aguilar [facility] 1.2.840.114 350.1.13.10 4.2.7.2.[id number] [facility] 2024-08-08 00:00:00 2024-08-08 08:44:36 [facility] 1.2.840.114 350.1.13.10 4.2.7.2.[id number] [facility] 2024-08-02 00:00:00 2024-08-05 11:57:32 [facility] 1.2.840.114 350.1.13.10 4.2.7.2.[id number] [facility] 2024-08-04 09:30:00 2024-08-04 09:30:00 Outpatient RON CARRASQUILLO [facility] [id number] [facility] 2024-08-03 00:00:00 2024-08-03 16:17:35 Telephone [facility]ore[facility] 1.2.840.114 350.1.13.10 4.2.7.2.[id number] [facility] 2024-08-03 00:00:00 2024-08-03 10:41:36 [facility] 1.2.840.114 350.1.13.10 4.2.7.2.[id number] [facility] 2024-08-02 08:30:00 2024-08-02 09:32:37 Outpatient R [facility] [id number] [facility] 2024-08-02 08:30:00 2024-08-02 09:32:37 [facility] 1.2.840.114 350.1.13.10 4.2.7.2.[id number] [facility] 2024-08-02 00:00:00 2024-08-02 09:29:45 Telephone Lynn Doll [facility] PRIMARY AND SPECIALTY CARE 1..114 350.1.13.10 4.2.7.2.[id number] [facility] 2024-07-28 00:00:00 2024-07-28 11:36:00 Patient Outreach ObrienShelby Jocelyn [facility] 1.840.114 350.1.13.10 4.2.7.2.[id number] [facility] 2024-07-25 00:00:00 2024-07-25 16:03:56 Case Management La Nena Aaron Katherine [facility] 1.840.114 350.1.13.10 4.2.7.2.[id number] [facility] 2024-07-25 11:20:00 2024-07-25 12:06:43 Outpatient R OBI-MARCEL [facility] [id number] [facility] 2024-07-25 11:20:00 2024-07-25 12:06:43 Office Visit ObMarcel Thornton [facility] 1.2840.114 350.1.13.10 4.2.7.2.[id number] [facility] 2024-06-17 00:00:00 2024-07-23 18:25:41 Patient Secure Msg Doctor Unassigned, Bartley Doctor Unassigned, Bartley [facility] BUILDING 1.2.840.114 350.1.13.10 4.2.7.2.[id number] [facility] 2024-06-22 00:00:00 2024-07-23 18:21:03 Patient Secure Msg Doctor Unassigned, Bartley Doctor Unassigned, Bartley [facility] 1.2.840.114 350.1.13.10 4.2.7.2.[id number] [facility] 2024-07-05 00:00:00 2024-07-23 06:28:22 Telephone Obi-Dorene , [facility] 1..840.114 350.1.13.10 4.2.7.2.[id number] [facility] 2024-07-22 10:00:00 2024-07-22 10:00:00 [employer] Visit 2, Adc Lab Lynn Doll 2, Adc Lab [facility] BUILDING 1.2.840.114 350.1.13.10 4.2.7.2.[id number] [facility] 2024-07-22 10:00:00 2024-07-22 09:45:54 Outpatient R LYNN DOLL [facility] [id number] [facility] 2024-07-18 15:21:13 2024-07-18 23:59:00 [facility] 1.2.840.114 350.1.13.10 4.2.7.2.[id number] [facility] 2024-07-18 14:40:00 2024-07-18 15:20:32 [id number] 2024-07-18 14:40:00 2024-07-18 15:20:32 Office Visit Jace [facility] BUILDING 1.2.840.114 350.1.13.10 4.2.7.2.[id number] [facility] 2024-07-17 00:00:00 2024-07-18 14:02:30 Pat Sommer [facility] 1.2.840.114 350.1.13.10 4.2.7.2.[id number] [facility] 2024-07-14 00:00:00 2024-07-14 16:10:39 Patient Secure Msg Doctor Unassigned, Bartley Doctor Unassigned, Bartley [facility] PRIMARY AND SPECIALTY CARE 1.2840.114 350.1.13.10 4.2.7.2.[id number] [facility] 2024-07-12 00:00:00 2024-07-12 16:58:10 Transition of Care Jayashree Josue Kristi L [facility] 1.2.840.114 350.1.13.10 4.2.7.2.[id number] [facility] 2024-07-12 00:00:00 2024-07-12 16:53:11 Transition of Care Jayashree Josue Kristi L [place] 1.2.840.114 350.1.13.10 4.2.7.2.[id number] [facility] 2024-07-12 13:30:00 2024-07-12 14:19:51 Outpatient R LYNN DOLL [facility] [id number] [facility] 2024-07-12 13:30:00 2024-07-12 14:19:51 Office Visit Lynn Doll [facility] PRIMARY AND SPECIALTY CARE 1.2840.114 350.1.13.10 4.2.7.2.[id number] [facility] 2024-07-11 00:00:00 2024-07-12 14:01:26 Patient Secure Msg Allyson Fink [facility] BUILDING 1.2.840.114 350.1.13.10 4.2.7.2.[id number] [facility] 2024-07-07 15:31:00 2024-07-10 11:50:00 Outpatient X DONAVON BROWN [facility] [id number] [facility] 2024-07-07 15:31:00 2024-07-10 11:50:00 Emergency Juan Calvillo, Anita Marc [facility] 1.2.840.114 350.1.13.10 4.2.7.2.[id number] [facility] 2024-06-03 00:00:00 2024-07-09 18:25:38 [facility] 1.2.840.114 350.1.13.10 4.2.7.2.[id number] [facility] 2024-07-08 00:00:00 2024-07-08 08:59:08 [facility] 1.2.840.114 350.1.13.10 4.2.7.2.[id number] [facility] 2024-07-07 14:00:00 2024-07-07 15:20:05 Outpatient R APRIL HERNANDEZ [facility] [id number] [facility] 2024-07-07 14:00:00 2024-07-07 15:20:05 Office Visit April Hernandez [facility] 1.2840.114 350.1.13.10 4.2.7.2.[id number] [facility] 2024-07-05 00:00:00 2024-07-06 08:37:03 [facility] 1.2.840.114 350.1.13.10 4.2.7.2.[id number] [facility] 2024-07-04 00:00:00 2024-07-05 15:14:17 Patient Secure Msg Janey [facility] 1.2.840.114 350.1.13.10 4.2.7.2.[id number] [facility] 2024-07-05 00:00:00 2024-07-05 10:53:58 Telephone Janey [facility] 1.2.840.114 350.1.13.10 4.2.7.2.[id number] [facility] 2024-07-04 00:00:00 2024-07-04 08:33:16 [facility] 1.2.840.114 350.1.13.10 4.2.7.2.[id number] [facility] 2024-07-01 00:00:00 2024-07-02 20:42:12 [facility] 1.2.840.114 350.1.13.10 4.2.7.2.[id number] [facility] 2024-07-01 00:00:00 2024-07-01 08:34:15 Refill Janey [facility] 1.2.840.114 350.1.13.10 4.2.7.2.[id number] [facility] 2024-06-30 00:00:00 2024-07-01 08:19:37 Patient Secure Msg Toth [facility] 1.2.840.114 350.1.13.10 4.2.7.2.[id number] [facility] 2024-06-29 00:00:00 2024-06-29 09:18:40 Telephone Andi Maier [facility] 1.2.840.114 350.1.13.10 4.2.7.2.[id number] [facility] 2024-06-23 00:00:00 2024-06-23 12:06:09 Telephone Lasah Aguilar [facility] 1.2.840.114 350.1.13.10 4.2.7.2.[id number] [facility] 2024-06-20 00:00:00 2024-06-20 10:53:14 Telephone Lasha Aguilar [facility] 1.2.840.114 350.1.13.10 4.2.7.2.[id number] [facility] 2024-06-20 00:00:00 2024-06-20 10:23:18 Allyson Tineo [facility] 1.2.840.114 350.1.13.10 4.2.7.2.[id number] [facility] 2024-06-17 15:20:00 2024-06-17 16:22:18 Outpatient R LASHA AGUILAR [facility] [id number] [facility] 2024-06-17 15:20:00 2024-06-17 16:22:18 [facility] 1.2.840.114 350.1.13.10 4.2.7.2.[id number] [facility] 2024-06-17 00:00:00 2024-06-17 13:51:35 Patient Secure Msg Doctor Unassigned, Bartley Doctor Unassigned, Bartley [facility] 1..840.114 350.1.13.10 4.2.7.2.[id number] [facility] 2024-06-17 00:00:00 2024-06-17 13:36:54 Patient Secure Msg Doctor Unassigned, Bartley Doctor Unassigned, Bartley [facility] 1..840.114 350.1.13.10 4.2.7.2.[id number] [facility] 2024-06-16 00:00:00 2024-06-17 10:32:26 Patient Secure Msg Obi-Marcel Catherine [facility] 1..840.114 350.1.13.10 4.2.7.2.[id number] [facility] 2024-06-13 11:20:00 2024-06-13 11:37:04 Outpatient R RAFYI-MARCEL CATHERINE [facility] [id number] [facility] 2024-06-13 11:20:00 2024-06-13 11:37:04 [facility] 1.2.840.114 350.1.13.10 4.2.7.2.[id number] [facility] 2024-06-08 00:00:00 2024-06-08 08:12:23 Telephone Robert Tothma [facility] BUILDING 1.2.840.114 350.1.13.10 4.2.7.2.[id number] [facility] 2024-06-04 00:00:00 2024-06-06 23:08:47 RefKayden Escobarssica [facility] BUILDING 1.2.840.114 350.1.13.10 4.2.7.2.[id number] [facility] 2024-06-05 00:00:00 2024-06-06 11:27:22 Refill Kayden Ochoassica [facility] BUILDING 1.2.840.114 350.1.13.10 4.2.7.2.[id number] [facility] 2024-06-06 00:00:00 2024-06-06 09:30:37 RefAllyson Delgado [facility] BUILDING 1.2.840.114 350.1.13.10 4.2.7.2.[id number] [facility] 2024-06-03 00:00:00 2024-06-03 09:24:18 Patient Secure Msg Marcel Toth [facility] BUILDING 1.2.840.114 350.1.13.10 4.2.7.2.[id number] [facility] 2024-06-02 09:22:31 2024-06-02 23:59:00 Outpatient R MARCEL TOTH [facility] [id number] [facility] 2024-06-02 09:22:31 2024-06-02 23:59:00 Hospital Encounter Marcel Toth [facility] 1.2.840.114 350.1.13.10 4.2.7.2.[id number] [facility] 2024-06-02 14:45:00 2024-06-02 15:07:24 Office Visit Krishan Macias Anthony [facility] 1.2.840.114 350.1.13.10 4.2.7.2.[id number] [facility] 2024-05-31 13:15:00 2024-05-31 13:30:02 [employer] Visit 2, Adc Lab Marcel Toth 2, Adc Lab [facility] NAL BUILDING 1.2.840.114 350.1.13.10 4.2.7.2.[id number] [facility] 2024-05-31 13:15:00 2024-05-31 13:15:00 Outpatient R MARCEL TOTH [facility] [id number] [facility] 2024-05-31 11:15:00 2024-05-31 11:15:00 Outpatient R [facility] [id number] [facility] 2024-05-30 00:00:00 2024-05-30 09:55:[address] [facility] [facility] NAL BUILDING 1.2.840.114 350.1.13.10 4.2.7.2.[id number] [facility] 2024-05-26 13:20:00 2024-05-26 16:02:06 Office Visit Obi-Dorene , [facility] 1.2.840.114 350.1.13.10 4.2.7.2.[id number] [facility] 2024-05-26 13:20:00 2024-05-26 16:02:06 Outpatient R MARCEL [facility] [id number] [facility] 2024-05-26 13:00:00 2024-05-26 14:29:46 Office Visit Hillary [facility] 1.2.840.114 350.1.13.10 4.2.7.2.[id number] [facility] 2024-05-24 12:16:38 2024-05-24 23:59:00 Outpatient R RON HOOVER [facility] [id number] [facility] 2024-05-24 12:16:38 2024-05-24 23:59:00 [facility] 1.2.840.114 350.1.13.10 4.2.7.2.[id number] [facility] 2024-05-05 00:00:00 2024-05-05 00:00:00 Telephone Pat Ochoa [facility] 1.2.840.114 350.1.13.10 4.2.7.2.[id number] [facility] 2024-05-03 11:00:00 2024-05-03 11:00:00 Outpatient R RON HOOVER [facility] [id number] [facility] 2024-04-29 00:00:00 2024-04-29 13:34:24 Telephone Janey [facility] NAL BUILDING 1.2.840.114 350.1.13.10 4.2.7.2.[id number] [facility] 2024-04-14 15:15:00 2024-04-14 15:46:47 Outpatient R RON HOOVER [facility] [id number] [facility] 2024-04-14 15:15:00 2024-04-14 15:46:47 Office Visit Ron Hoover [facility] 1.2.840.114 350.1.13.10 4.2.7.2.[id number] [facility] 2024-04-14 00:00:00 2024-04-14 13:31:03 Refill Pat Ochoa [facility] 1..840.114 350.1.13.10 4.2.7.2.[id number] [facility] 2024-04-04 13:40:00 2024-04-04 13:54:04 Outpatient R PADMINI FINKGAVI [facility] [id number] [facility] 2024-04-04 13:40:00 2024-04-04 13:54:04 Office Visit Padmini Finkgavi [facility] 1..840.114 350.1.13.10 4.2.7.2.[id number] [facility] 2024-03-29 00:00:00 2024-03-31 12:22:49 Patient Outreach Michelle Olmstead [facility] 1.2.840.114 350.1.13.10 4.2.7.2.[id number] [facility] 2024-03-29 14:00:00 2024-03-29 14:39:14 Outpatient R PAT OCHOA [facility] [id number] [facility] 2024-03-29 14:00:00 2024-03-29 14:39:14 Office Visit Pat Ochoa [facility] 1.2.840.114 350.1.13.10 4.2.7.2.[id number] [facility] 2024-03-22 05:22:00 2024-03-24 12:30:[address] [facility] [id number] [facility] 2024-03-22 05:22:00 2024-03-24 12:30:00 Hospital Encounter [facility] 1.2.840.114 350.1.13.10 4.2.7.2.[id number] [facility] 2024-03-23 00:00:00 2024-03-23 14:50:58 Telephone Pat Ochoa [facility] 1.2.840.114 350.1.13.10 4.2.7.2.[id number] [facility] 2024-03-22 07:20:00 2024-03-22 11:52:00 Surgery [facility] 1.2.840.114 350.1.13.10 4.2.7.2.[id number] [facility] 2024-03-19 10:30:00 2024-03-19 10:45:00 [employer] Visit Pob, Adc Lab Main Sneha [facility] 1.2.840.114 350.1.13.10 4.2.7.2.[id number] [facility] 2024-03-19 10:30:00 2024-03-19 10:30:00 Outpatient R SNEHA [facility] [id number] [facility] 2024-03-17 00:00:00 2024-03-17 16:04:33 Telephone Pat Ochoa [facility] 1.2.840.114 350.1.13.10 4.2.7.2.[id number] [facility] 2024-03-14 00:00:00 2024-03-14 13:37:35 Patient Secure Msg Doctor Unassigned, Bartley [facility] 1.2.840.114 350.1.13.10 4.2.7.2.[id number] [facility] 2024-03-11 00:00:00 2024-03-11 15:05:51 Telephone Pat Ochoa [facility] 1.2.840.114 350.1.13.10 4.2.7.2.[id number] [facility] 2024-03-10 15:00:00 2024-03-10 15:15:00 Office Visit Ron Hoover [facility] 1.2.840.114 350.1.13.10 4.2.7.2.[id number] [facility] 2024-03-10 15:00:00 2024-03-10 15:00:00 Outpatient R RON HOOVER [facility] [id number] [facility] 2024-03-08 13:00:00 2024-03-08 13:00:00 Outpatient R RON HOOVER [facility] [id number] [facility] 2024-01-29 00:00:00 2024-03-05 18:13:43 Patient Secure Msg Doctor Unassigned, Bartley [facility] 1.2.840.114 350.1.13.10 4.2.7.2.[id number] [facility] 2024-03-03 14:00:00 2024-03-03 14:00:00 Office Visit Pat Ochoa [facility] 1.2.840.114 350.1.13.10 4.2.7.2.[id number] [facility] 2024-03-03 00:00:00 2024-03-03 13:18:42 Patient Outreach IshanMichelle [facility] 1.2.840.114 350.1.13.10 4.2.7.2.[id number] [facility] 2024-03-03 14:00:00 2024-03-03 12:57:12 Outpatient R PAT OCHOA [facility] [id number] [facility] 2024-03-03 09:20:00 2024-03-03 09:20:00 Office Visit Allyson Fink [facility] 1.2.840.114 350.1.13.10 4.2.7.2.[id number] [facility] 2024-03-03 09:20:00 2024-03-03 09:07:37 Outpatient [facility]MIN[facility] [id number] [facility] 2024-03-02 23:27:00 2024-03-03 01:59:00 Emergency Rosalva Finch [facility] 1.2.840.114 350.1.13.10 4.2.7.2.[id number] [facility] 2024-03-02 00:00:00 2024-03-02 16:26:41 Telephone OchoaPat [facility] 1.2.840.114 350.1.13.10 4.2.7.2.[id number] [facility] 2024-03-02 00:00:00 2024-03-02 11:17:44 Telephone Ron Hoover [facility] 1.2.840.114 350.1.13.10 4.2.7.2.[id number] [facility] 2024-03-01 00:00:00 2024-03-01 13:58:48 Patient Outreach Michelle Olmstead [facility] 1.2.840.114 350.1.13.10 4.2.7.2.[id number] [facility] 2024-02-29 00:00:00 2024-02-29 13:19:28 Telephone Ron Hoover [facility] 1.2.840.114 350.1.13.10 4.2.7.2.[id number] [facility] 2024-02-25 13:30:00 2024-02-25 13:30:00 Office Visit Kayden Ochoassica [facility] BUILDING 1.2.840.114 350.1.13.10 4.2.7.2.[id number] [facility] 2024-02-25 13:30:00 2024-02-25 13:27:04 Outpatient PAT MOSER [facility] [id number] [facility] 2024-02-22 13:00:00 2024-02-22 14:02:15 Outpatient KAYDEN MOSERSSICA [facility] [id number] [facility] 2024-02-22 13:00:00 2024-02-22 13:15:00 [employer] Visit 2, Adc Lab Don Pat [facility] 1.2.840.114 350.1.13.10 4.2.7.2.[id number] [facility] 2024-02-10 00:00:00 2024-02-10 00:00:00 Telephone Pat Ochoa [facility] BUILDING 1.84.114 350.1.13.10 4.2.7.2.[id number] [facility] 2024-02-02 13:00:00 2024-02-02 13:00:00 Outpatient RON CARRASQUILLO [facility] [id number] [facility] 2024-01-29 00:00:00 2024-01-29 00:00:00 Telephone Pat Ochoa [facility] BUILDING 1.84.114 350.1.13.10 4.2.7.2.[id number] [facility] 2024-01-19 14:00:00 2024-01-19 14:00:00 Outpatient RON CARRASQUILLO [facility] [id number] [facility] 2024-01-12 00:00:00 2024-01-12 00:00:00 Orders Only Doctor Unassigned, Bartley [facility] 1..114 350.1.13.10 4.2.7.2.[id number] [facility] 2024-01-06 00:00:00 2024-01-06 00:00:00 Telephone Krishan Cowart [facility] BUILDING 1.84.114 350.1.13.10 4.2.7.2.[id number] [facility] 2024-01-04 00:00:00 2024-01-04 00:00:00 Telephone [facility] 1.2840.114 350.1.13.10 4.2.7.2.[id number] [facility] 2024-01-01 00:00:00 2024-01-01 00:00:00 Patient Secure Msg Doctor Unassigned, Bartley [facility] BUILDING 1..840.114 350.1.13.10 4.2.7.2.[id number] [facility] 2023-12-29 11:40:00 2023-12-29 16:54:53 Outpatient R LASHA AGUILAR HOWARD [facility] [id number] [facility] 2023-12-29 11:40:00 2023-12-29 16:54:53 Office Visit Lasha Aguilar Ayden [facility] BUILDING 1.2.840.114 350.1.13.10 4.2.7.2.[id number] [facility] 2023-12-29 00:00:00 2023-12-29 00:00:00 Telephone Donovan Lasha [facility] 1.840.114 350.1.13.10 4.2.7.2.[id number] [facility] 2023-12-29 00:00:00 2023-12-29 00:00:00 Orders Only Doctor Unassigned, Bartley [facility] 1.84.114 350.1.13.10 4.2.7.2.[id number] [facility] 2023-12-28 09:40:00 2023-12-28 09:40:00 Office Visit Allyson Fink [facility] BUILDING 1.840.114 350.1.13.10 4.2.7.2.[id number] [facility] 2023-12-28 09:40:00 2023-12-28 09:39:59 Outpatient R ALLYSON FINK [facility] [id number] [facility] 2023-12-28 00:00:00 2023-12-28 00:00:00 Letter (Out) [facility] 1.2.114 350.1.13.10 4.2.7.2.[id number] [facility] 2023-12-24 16:15:00 2023-12-24 16:15:00 Office Visit Ron Hoover [facility] 1.20.114 350.1.13.10 4.2.7.2.[id number] [facility] 2023-12-24 16:15:00 2023-12-24 15:29:05 Outpatient R RON HOOVER [facility] [id number] [facility] 2023-12-11 12:30:00 2023-12-11 12:48:04 Outpatient PAT MOSER [facility] [id number] [facility] 2023-12-11 12:30:00 2023-12-11 12:48:04 Office Visit Pat Ochoa [facility] 1.284.114 350.1.13.10 4.2.7.2.[id number] [facility] 2023-12-08 00:00:00 2023-12-08 00:00:00 Telephone Deandra Medina 1.284.114 350.1.13.10 4.2.7.2.[id number] [facility] 2023-12-07 14:40:00 2023-12-07 14:40:00 Outpatient ALLYSON GUTIÉRREZ [facility] [id number] [facility] 2023-12-07 00:00:00 2023-12-07 00:00:00 Orders Only Doctor Unassigned, Bartley [facility] 1.2.114 350.1.13.10 4.2.7.2.[id number] [facility] 2023-12-02 11:45:00 2023-12-02 14:08:59 [employer] Visit 2, Adc Lab Pat Ochoa [facility] 1.2.840.114 350.1.13.10 4.2.7.2.[id number] [facility] 2023-12-02 11:45:00 2023-12-02 11:45:00 Outpatient R PAT OCHOA [facility] [id number] [facility] 2023-12-02 00:00:00 2023-12-02 00:00:00 [facility] 1.2.840.114 350.1.13.10 4.2.7.2.[id number] [facility] 2023-12-02 00:00:00 2023-12-02 00:00:00 Telephone Pat Ochoa [facility] BUILD[facility] 1.2.840.114 350.1.13.10 4.2.7.2.[id number] [facility] 2023-12-01 00:00:00 2023-12-01 00:00:00 Patient Outreach Debbie Shah [facility] BUILD[facility] 1.2.840.114 350.1.13.10 4.2.7.2.[id number] [facility] 2023-11-27 15:30:00 2023-11-27 16:17:50 Outpatient R OCHOASAVANNAHPAT [facility] [id number] [facility] 2023-11-27 15:30:00 2023-11-27 16:17:50 Office Visit DonSavannahPat [facility] BUILDING 1.2.840.114 350.1.13.10 4.2.7.2.[id number] [facility] 2023-11-27 00:00:00 2023-11-27 00:00:00 Patient Secure Msg Doctor Unassigned, Bartley [facility] 1.2.840.114 350.1.13.10 4.2.7.2.[id number] [facility] 2023-11-27 00:00:00 2023-11-27 00:00:00 Orders Only Doctor Unassigned, Bartley [facility] 1.2.840.114 350.1.13.10 4.2.7.2.[id number] [facility] Results Test Description Test Time Test Comments Results Result Co mments [facility] GLUCOSE (AUTOMATED)2025-03-28 09:51:10* Test Item Value Reference Range Interpretation Comme nts POCT GLU (test code = 0885766565) 314 mg/dL 70-110 H Lab Interpretation (test cod e = 22084-2) Abnormal [facility] GLUCOSE (AUTOMATED)2025-03-28 09:51:10* Test Item Value Reference Range Interpretation Comme nts POCT GLU (test code = 4703984400) 297 mg/dL 70-110 H Lab Interpretation (test cod e = 79486-1) Abnormal [facility] GLUCOSE (AUTOMATED)2025-03-28 04:10:35* Test Item Value Reference Range Interpretation Comme nts POCT GLU (test code = 1836298936) 353 mg/dL 70-110 H Lab Interpretation (test cod e = 19545-8) Abnormal [facility] GLUCOSE (AUTOMATED)2025-03-28 00:45:10* Test Item Value Reference Range Interpretation Comme nts POCT GLU (test code = 0217595903) 335 mg/dL 70-110 H Lab Interpretation (test cod e = 50270-1) [facility] zw4473-41-10 15:57:07INDICATION: ?sob ORDERING PROVIDER: ?MARGOTH RAMACHANDRAN TECHNIQUE: ?Frontal view of the chest. RL: ?[id number]: ?None Available FINDINGS: ?The cardiac silhouette and pulmonary vascularity are withinnormal limits. Sternotomy wires and mediastinal clips are present.Left-sided rib deformities most likely reflect remote trauma in the absenceof any recent injury. No substantial pulmonary consolidation, pleuraleffusion, or pneumothorax is demonstrated.[facility] Metabolic Panel (NA, K, CL, CO2, GLUCOSE, BUN, CREATININE, CA) 2025-02-14 09:21:23* Test Item Value Reference Range Interpretation Comme nts NA (test code = 7440327097) 135 mmol/L 135-145 K (test code = 3772045911) 3.6 mmol/L 3.5-5.0 CL (test code = 6450679142) 105 mmol/L 98-108 CO2 TOTAL (test code = 1801731923) 23 mmol/L 23-31 AGAP (test code = 7594505688) 7 2-16 BUN (test code = 9187824413) 13 mg/dL 7-23 GLUCOSE (test code = 0652315906) 233 mg/dL 70-110 H CREATININE (test code = 2160-0) 0.63 mg/dL 0.60-1.25 CALCIUM (test code = 8624189896) 8.6 mg/dL 8.6-10.6 eGFR (test code = 21608-9) 104.3 mL/min/1.73m2 CKD-EPI eGFR (2020). Assuming creatinine has been stable day-to-day for at least three months, the eGFR indicates Category G1 (>= 90 mL/min/1.73 m2) Lab Interpretation (test code = 85086-3) [facility] 09:21:23* Test Item Value Reference Range Interpretation Comme nts MAGNESIUM (test code = 6377741616) 1.7 mg/dL 1.7-2.4 Lab Interpretation (test cod e = 25818-0) Normal [facility] Metabolic Panel (NA, K, CL, CO2, GLUCOSE, BUN, CREATININE, CA)2025-02-14 09:21:23* Test Item Value Reference Range Interpretation Comme nts NA (test code = 4109861961) 135 mmol/L 135-145 K (test code = 6944151670) 3.6 mmol/L 3.5-5.0 CL (test code = 8181188142) 105 mmol/L 98-108 CO2 TOTAL (test code = 5912213542) 23 mmol/L 23-31 AGAP (test code = 3950490628) 7 2-16 BUN (test code = 8614305716) 13 mg/dL 7-23 GLUCOSE (test code = 4246471917) 233 mg/dL 70-110 H CREATININE (test code = 2160-0) 0.63 mg/dL 0.60-1.25 CALCIUM (test code = 4104624553) 8.6 mg/dL 8.6-10.6 eGFR (test code = 72596-7) 104.3 mL/min/1.73m2 CKD-EPI eGFR (2020). Assuming creatinine has been stable day-to-day for at least three months, the eGFR indicates Category G1 (>= 90 mL/min/1.73 m2) Lab Interpretation (test code = 28870-6) [facility] 09:21:23* Test Item Value Reference Range Interpretation Comme nts MAGNESIUM (test code = 6223019953) 1.7 mg/dL 1.7-2.4 Lab Interpretation (test cod e = 88181-8) Normal [facility] with Clog0337-27-20 09:01:02* Test Item Value Reference Range Interpretation [...] 34.6 g/dL 31.2-35.0 RDW-SD (test code = 69092-4) 39 fL 38.5-51.6 RDW-CV (test code = 788-0) 12.7 % 12.1-15.4 PLT (test code = 777-3) 266 150-328 MPV (test code = 17703-3) 9 fL 9.8-13.0 L NRBC/100 WBC (test code = 7340009613) 0 0.0-10.0 NRBC x10^3 (test code = 1934281079) See_Comment [Automated messa ge] The system which generated this result transmitted reference range: 10*3/?L. The reference range was not used to interpret this result as normal/abnormal. GRAN MAT (NEUT) % (test code = 770-8) 56.5 % IMM GRAN % (test code = 7422824346) 0.3 % LYMPH % (test code = 736-9) 28.1 % MONO % (test code = 5905-5) 13 % EOS % (test code = 713-8) 1.5 % BASO % (test code = 706-2) 0.6 % GRAN MAT x10^3(ANC) (test code = 3802618868) 3.82 10*3/uL 1.99-6.95 IMM GRAN x10^3 (test code = 9892167334) 0.00-0.06 LYMPH x10^3 (test code = 731-0) 1.9 10*3/uL 1.09-3.23 MONO x10^3 (test code = 742-7) 0.88 10*3/uL 0.36-1.02 EOS x10^3 (test code = 711-2) 0.1 10*3/uL 0.06-0.53 BASO x10^3 (test code = 704-7) 0.04 10*3/uL 0.01-0.09 Lab Interpretation (test code = 02336-5) Abnormal [facility] with Jmvm1582-09-79 09:01:02* Test Item Value Reference Range Interpretation [...] 34.6 g/dL 31.2-35.0 RDW-SD (test code = 20196-4) 39 fL 38.5-51.6 RDW-CV (test code = 788-0) 12.7 % 12.1-15.4 PLT (test code = 777-3) 266 150-328 MPV (test code = 46923-8) 9 fL 9.8-13.0 L NRBC/100 WBC (test code = 5999598464) 0 0.0-10.0 NRBC x10^3 (test code = 4244480252) See_Comment [Automated messa ge] The system which generated this result transmitted reference range: 10*3/?L. The reference range was not used to interpret this result as normal/abnormal. GRAN MAT (NEUT) % (test code = 770-8) 56.5 % IMM GRAN % (test code = 2658864226) 0.3 % LYMPH % (test code = 736-9) 28.1 % MONO % (test code = 5905-5) 13 % EOS % (test code = 713-8) 1.5 % BASO % (test code = 706-2) 0.6 % GRAN MAT x10^3(ANC) (test code = 6915340667) 3.82 10*3/uL 1.99-6.95 IMM GRAN x10^3 (test code = 9301827812) 0.00-0.06 LYMPH x10^3 (test code = 731-0) 1.9 10*3/uL 1.09-3.23 MONO x10^3 (test code = 742-7) 0.88 10*3/uL 0.36-1.02 EOS x10^3 (test code = 711-2) 0.1 10*3/uL 0.06-0.53 BASO x10^3 (test code = 704-7) 0.04 10*3/uL 0.01-0.09 Lab Interpretation (test code = 34368-0) Abnormal [facility] GLUCOSE (AUTOMATED)2025-02-14 04:08:01* Test Item Value Reference Range Interpretation Comme [facility] POCT GLU (test code = 7985851683) 271 mg/dL 70-110 H Lab Interpretation (test cod e = 70717-4) Abnormal [facility] GLUCOSE (AUTOMATED)2025-02-14 04:08:01* Test Item Value Reference Range Interpretation Comme [facility] POCT GLU (test code = 0142813804) 271 mg/dL 70-110 H Lab Interpretation (test cod e = 14462-0) [facility] 02:03:24* Test Item Value Reference Range Interpretation Comme [facility] APTT Patient (test code = 3173-2) 41 26-36 H Lab Interpretation (test cod e = 67722-9) [facility] 02:03:24* Test Item Value Reference Range Interpretation Comme [facility] APTT Patient (test code = 3173-2) 41 26-36 H Lab Interpretation (test cod e = 60620-2) [facility] [id number] 22:19:56* Test Item Value Reference Range Interpretation Comme [facility] Height (test code = 7804512821) 72 in Weight (test code = 3242309059) 164 lbs Systolic BP (test code = 9658351768) 107 mmHg Diastolic BP (test code = 6567118949) 63 mmHg Heart Rate (test code = 0884528113) 92 bpm EF(Teich) (test code = 5947782437) 23.6 % LVIDD (test code = 0267532367) 4.4 cm LVIDS (test code = 0147364138) 4 cm Left Ventricular End Systolic Volume by Teichholz Method (test code = 3763909) 68 mL Left Ventricular End Diastolic Volume by Teichholz Method (test code = 3189816) 89 mL IVS (test code = 6262706474) 0.88 cm LVPWD (test code = 6890203362) 0.78 cm FS (test code = 8807846263) 11 % BSA (test code = 1496299285) 1.96 m2 PW (test code = 4930813576) 0.78 cm 0.6-1.1 EF - 2D (test code = 43756572) 23.6 % Interventricular Septum Diastolic Thickness by 2D (test code = 6947597) 0.88 cm A4C EF (test code = 5909955074) 31.4 % EF(sp4-el) (test code = 6531041732) 32.7 % SV(MOD-sp4) (test code = 2495203109) 26.4 mL SV(sp4-el) (test code = 4723998889) 28.5 mL LV Diastolic Volume (BP) (test code = 8648613533) 93.3 mL A2C EF (test code = 2418414238) 40.7 % EF(MOD-bp) (test code = 6115509097) 37.6 % EF(sp2-el) (test code = 4183118786) 41.8 % LV Systolic Volume (BP) (test code = 8343572317) 58.2 mL SV(MOD-bp) (test code = 5588343027) 35.1 mL SV(MOD-sp2) (test code = 1124908997) 39.8 mL EF (test code = 7574361577) 38 Left Ventricular Stroke Volume by 2-D Biplane-MOD (test code = 4685403) 35.1 mL LV Diastolic Volume Index (BP) (test code = 3543797214) 47.6 mL/m2 LV Systolic Volume Index (BP) (test code = 1066296030) 29.7 mL/m2 Radiology Study observation (narrative) (test code = 96018-2) ROLANDO (test code = ROLANDO) ?Left?Ventricle: Left [...] and apical lateral.All other segments are normal. [facility] [facility] Oudblvx8706-02-65 22:19:56* Test Item Value Reference Range Interpretation Comme nts Height (test code = 7412702073) 72 in Weight (test code = 4265157781) 164 lbs Systolic BP (test code = 8764877391) 107 mmHg Diastolic BP (test code = 9823524565) 63 mmHg Heart Rate (test code = 1573046352) 92 bpm EF(Teich) (test code = 9476034731) 23.6 % LVIDD (test code = 3879732292) 4.4 cm LVIDS (test code = 6464742287) 4 cm Left Ventricular End Systolic Volume by Teichholz Method (test code = 7654901) 68 mL Left Ventricular End Diastolic Volume by Teichholz Method (test code = 2752624) 89 mL IVS (test code = 2892363318) 0.88 cm LVPWD (test code = 6077298106) 0.78 cm FS (test code = 6405432691) 11 % BSA (test code = 5630357503) 1.96 m2 PW (test code = 7458847407) 0.78 cm 0.6-1.1 EF - 2D (test code = 59492382) 23.6 % Interventricular Septum Diastolic Thickness by 2D (test code = 1404540) 0.88 cm A4C EF (test code = 8667230267) 31.4 % EF(sp4-el) (test code = 2461361885) 32.7 % SV(MOD-sp4) (test code = 7984678389) 26.4 mL SV(sp4-el) (test code = 9419943296) 28.5 mL LV Diastolic Volume (BP) (test code = 9658637489) 93.3 mL A2C EF (test code = 2455263798) 40.7 % EF(MOD-bp) (test code = 1818332628) 37.6 % EF(sp2-el) (test code = 1102065232) 41.8 % LV Systolic Volume (BP) (test code = 7826287145) 58.2 mL SV(MOD-bp) (test code = 4885184309) 35.1 mL SV(MOD-sp2) (test code = 9014584585) 39.8 mL EF (test code = 1209110534) 38 Left Ventricular Stroke Volume by 2-D Biplane-MOD (test code = 7444960) 35.1 mL LV Diastolic Volume Index (BP) (test code = 1205554410) 47.6 mL/m2 LV Systolic Volume Index (BP) (test code = 9739784512) 29.7 mL/m2 Radiology Study observation (narrative) (test code = 45907-3) ROLANDO (test code = ROLANDO) ?Left?Ventricle: Left [...] and apical lateral.All other segments are normal. [facility] hospital BranchCardiovascular Twqqitrwstdsywk7510-76-24 21:37:26Left Heart Cath/Coronary Angiography/SVG and BURKETT angiogram/PCI [...] SOB/CP for past 2 weeks, admitted to [facility] 02/12/25 for Unstable angina. . Consent: Risks, benefits, alternatives and complications of the procedure discussed with the self, who understood and agreed to proceed.Aseptic technique: ChlorprepLocal Anesthesia: 1% lidocaine without epinephrineSedation: ModerateAccess site: Arterial: Right femoral artery 4Fr and then upgraded to 6FrClosure Method: Arterial: R REAL ESTATE AGENT/BROKER 6Fr manual compression Sterile dressing: yesComplications: noneProcedures: After patient identification/verification, the patient was thereafter transferred to the cathode washer table. ?The access site was prepped and [...] the SVg to OM, then 3x12 NC AEROSPACE MEDICINE PHYSICIAN then 3.5x16 Synergy LEANDRA to the Svg to OM, r REAL ESTATE AGENT/BROKER sutured into place (heparin, brilinta load aggrastat load only) The attending physician was present throughout the procedure and provided the highest level of supervision. Findings:Coronary dominance: rightLeft main: diffuse 50%LAD: pLAD 50%, mLAD 100% SINGLE POINTED OPERATOR, D1 medium size 60%, S1 medium size 90%LCX: pLCx 100% SINGLE POINTED OPERATOR with microchannelRCA: dominant vessel severe calcification [...] as recovering from sedation. Complications: none Impression/plan:-Severe kake CAD with mLAD SINGLE POINTED OPERATOR, pLCx SINGLE POINTED OPERATOR, severe mRCA stenosis, severe RPLB stenosis. -Patent BURKETT to LAD with severe kake dLAD stenosis, severe SVG to OM1 stenosis (likely cause of unstable angina), patent SVG to RPLB. -PCI of the SVG to Om1 done with Synergy LEANDRA. Recommend staged PCI of the BURKETT to mLAD (kake dLAD PCI through BURKETT). May consider FFR guided PCI of the mRCA. -Aggressive medical rx for CAD. Aspirin 81 mg once daily for life. Brilinta 180 mg oral given in cathode washer, continue brilinta 90 mg bid for at [...] SOB/CP for past 2 weeks, admitted to [facility] 02/12/25 for Unstable angina. . Consent: Risks, benefits, alternatives and complications of the procedure discussed with the self, who understood and agreed to proceed.Aseptic technique: ChlorprepLocal Anesthesia: 1% lidocaine without epinephrineSedation: ModerateAccess site: Arterial: Right femoral artery 4Fr and then upgraded to 6FrClosure Method: Arterial: R REAL ESTATE AGENT/BROKER 6Fr manual compression Sterile dressing: yesComplications: noneProcedures: After patient identification/verification, the patient was thereafter transferred to the cathode washer table. The access site was prepped anddraped [...] 4Fr LYNSEY to the BURKETT to LAD, iaer7Tp MP to the LV and after LVEDP 4Fr MP to the SVg to RPLB, then 6Fr RCFA, then 6Fr JR4 guide to SVg to OM, then BMW wire to the SVg to OM, then 3x12 NC AEROSPACE MEDICINE PHYSICIAN then 3.5x16 Synergy LEANDRA to the Svg to OM, r REAL ESTATE AGENT/BROKER sutured into place (heparin, brilinta load aggrastat load only) The attending physician was present throughout the procedure and provided the highest level of supervision. Findings:Coronary dominance: rightLeft main: diffuse 50%LAD: pLAD 50%, mLAD 100% SINGLE POINTED OPERATOR, D1 medium size 60%, S1 medium size 90%LCX: pLCx 100% SINGLE POINTED OPERATOR with microchannelRCA: dominant vessel severe calcification [...] immediately as recovering from sedation.Complications: none Impression/plan:-Severe kake CAD with mLAD SINGLE POINTED OPERATOR, pLCx SINGLE POINTED OPERATOR, severe mRCA stenosis, severe RPLB stenosis. -Patent BURKETT to LAD with severe kake dLAD stenosis, severe SVG to OM1 stenosis (likely cause of unstable angina), patent SVG to RPLB. -PCI of the SVG to Om1 done with Synergy LEANDRA. Recommend staged PCI of the BURKETT to mLAD (kake dLAD PCI through BURKETT). May consider FFR guided PCI of the mRCA. -Aggressive medical rx for CAD. Aspirin 81 mg once daily for life. Brilinta 180mg oral given in cathode washer, continue brilinta 90 mg bid for at least 12 months. -Aggrastat bolus only during PCI. -d/w pt in detail, all questions answered. F/u with Dr Fink as planned. PLAN STAGED PCI. Start cardiac rehab after the staged PCI is done. Riley Granados MD 02/13/2025 3:24 PMUnB[facility]stTransthoracic echo (TTE) 2025-02-06 22:52:44* Test Item Value Reference Range Interpretation Comme nts Height (test code = 0420830658) 72 in Weight (test code = 2847317641) 162 lbs Systolic BP (test code = 7914853432) 146 mmHg Diastolic BP (test code = 2159364840) 83 mmHg Heart Rate (test code = 9318135210) 76 bpm BSA (test code = 7195915239) 1.95 m2 LVOT diameter (test code = 4938490169) 1.9 cm LVOT area (test code = 0255398238) 2.8 cm2 Ao root diam (test code = 2960169272) 3.6 cm Aortic root (test code = 0179130993) 3.6 cm Ao root annulus (test code = 0218775025) 3.6 cm LA size (test code = 1607485943) 2.9 cm LVIDD (test code = 1158536340) 5.1 cm Left Ventricular End Diastolic Volume by Teichholz Method (test code = 9183684) 124.1 mL IVS (test code = 6066630700) 1 cm Interventricular Septum Diastolic Thickness by 2D (test code = 2396091) 1 cm LVPWD (test code = 2876963726) 1 cm PW (test code = 9352936191) 1 cm 0.6-1.1 EF(Teich) (test code = 6540824298) 42.3 % LVIDS (test code = 5482048285) 4 cm Left Ventricular End Systolic Volume by Teichholz Method (test code = 2779211) 71.6 mL FS (test code = 9474967055) 21 % EF - 2D (test code = 72608978) 42.3 % E wave decelartion time (test code = 7487242656) 0.18 s MV Peak E Riddhi (test code = 6531406584) 50.1 cm/s MV stenosis pressure 1/2 time (test code = 0565223294) 51.8 ms MV Peak A Riddhi (test code = 8576409892) 71.6 cm/s E/A ratio (test code = 1723145348) 0.7 ratio MV Prop V (test code = 1366923665) 34 cm/s MV E/e' septal (test code = 6680260120) 12.8 cm/s LAV(MOD-sp4) (test code = 2000419013) 30.9 mL Tapse (test code = 6606663129) 1.52 cm LVOT stroke volume (test code = 4808089293) 45.8 cm3 LVOT peak riddhi (test code = 2624808294) 78.8 cm/s LVOT mn grad (test code = 7703425751) 1.4 mmHg AV LVOT peak gradient (test code = 5346721768) 2.49 mmHg LVOT peak VTI (test code = 8238030798) 16.1 cm LV V1 mean (test code = 1689167079) 56.5 cm/s Aortic valve mean velocity (test code = 7600365954) 61.6 cm/s Ao peak riddhi (test code = 6004820172) 82.4 cm/s Ao VTI (test code = 6020704123) 12.8 cm AV area by cont VTI (test code = 3355828001) 3.6 cm2 AV area peak riddhi (test code = 9984328899) 2.7 cm2 Ao max PG (test code = 2985845569) 2.7 mm[Hg] AV peak gradient (test code = 1367696192) 2.7 mmHg AV valve area (test code = 3088903304) 3.6 cm2 AV mean gradient (test code = 6568422930) 1.63 mmHg Radiology Study observation (narrative) (test code = 53379-4) ROLANDO (test code = ROLANDO) ?Left?Ventricle: Left [...] mid anterolateral.Other segments could not be evaluated. [facility] HospitalT[facility] - Serial Q3H x2 from initial occurrence (at 0Hr, 3rd Hr and 6th Hr)2025-02-06 21:29:39* Test Item Value Reference Range Interpretation Comme nts TROPONIN I (test code = 9378715737) 0.001 ng/mL <=0.034 ROLANDO (test code = [...] of biotin. Lab Interpretation (test code = 07992-5) Normal [facility] HospitalGlycosylated Hemoglobin (A1C)2025-02-06 19:11:23* Test Item Value Reference Range Interpretation Comme nts HGB A1C (test code = 4548-4) 7.6 % 4.0-5.7 H ROLANDO (test code = ROLANDO) Reference RangesNormal: <5.7%Prediabetes: 5.7 - 6.4%Diabetes: > 6.5% Lab Interpretation (test code = 70480-5) Abnormal [facility] HospitalTroponin I - Serial Q3H x2 from initial occurrence (at 0Hr, 3rd Hr and 6th Hr)2025-02-06 18:39:46* Test Item Value Reference Range Interpretation Comme nts TROPONIN I (test code = 0952293790) 0.002 ng/mL <=0.034 ROLANDO (test code = [...] of biotin. Lab Interpretation (test code = 29516-6) Normal [facility] HospitalLipid Panel (Total Cholesterol, Triglycerides, HDL)2025-02-06 18:28:21* Test Item Value Reference Range Interpretation Comme nts CHOL (test code = 6887448209) 166 mg/dL 120-200 HDL (test code = 2545925582) 51 mg/dL >=40 HDLC RATIO (test code = 0234724650) 3.3 <=5.0 TRIG (test code = 6173054493) 61 mg/dL 30-170 LDL CHOL (test code = 67163-8) 103 mg/dL <=160 VLDL (test code = 1187353228) 12 mg/dL 5-60 Lab Interpretation (test cod e = 72465-9) Normal [facility] Metabolic Panel (NA, K, CL, CO2, GLUCOSE, BUN, CREATININE, CA)2025-02-06 18:28:21* Test Item Value Reference Range Interpretation Comme nts NA (test code = 0320699846) 137 mmol/L 135-145 K (test code = 8985184626) 4 mmol/L 3.5-5.0 CL (test code = 8894484372) 102 mmol/L 98-108 CO2 TOTAL (test code = 2233427170) 29 mmol/L 23-31 AGAP (test code = 7325521843) 6 2-16 BUN (test code = 6820455173) 14 mg/dL 7-23 GLUCOSE (test code = 4387642678) 195 mg/dL 70-110 H CREATININE (test code = 2160-0) 0.58 mg/dL 0.60-1.25 L CALCIUM (test code = 5518803666) 9.1 mg/dL 8.6-10.6 eGFR (test code = 92740-0) 106.9 mL/min/1.73m2 CKD-EPI eGFR (2020). Assuming creatinine has been stable day-to-day for at least three months, the eGFR indicates Category G1 (>= 90 mL/min/1.73 m2) Lab Interpretation (test code = 78915-0) Abnormal [facility] with Oqgb6780-76-57 17:40:13* Test Item Value Reference Range Interpretation [...] 33.8 g/dL 31.2-35.0 RDW-SD (test code = 30572-1) 41.9 fL 38.5-51.6 RDW-CV (test code = 788-0) 12.7 % 12.1-15.4 PLT (test code = 777-3) 250 150-328 MPV (test code = 89378-5) 10.5 fL 9.8-13.0 NRBC/100 WBC (test code = 0964574856) 0 0.0-10.0 NRBC x10^3 (test code = 3974996341) See_Comment [Automated messa ge] The system which generated this result transmitted reference range: 10*3/?L. The reference range was not used to interpret this result as normal/abnormal. GRAN MAT (NEUT) % (test code = 770-8) 64.1 % IMM GRAN % (test code = 2189793716) 0.2 % LYMPH % (test code = 736-9) 27.9 % MONO % (test code = 5905-5) 6.7 % EOS % (test code = 713-8) 0.6 % BASO % (test code = 706-2) 0.5 % GRAN MAT x10^3(ANC) (test code = 7356506559) 5.48 10*3/uL 1.99-6.95 IMM GRAN x10^3 (test code = 7123020242) 0.00-0.06 LYMPH x10^3 (test code = 731-0) 2.38 10*3/uL 1.09-3.23 MONO x10^3 (test code = 742-7) 0.57 10*3/uL 0.36-1.02 EOS x10^3 (test code = 711-2) 0.05 10*3/uL 0.06-0.53 L BASO x10^3 (test code = 704-7) 0.04 10*3/uL 0.01-0.09 Lab Interpretation (test code = 83055-2) Abnormal [facility] GLUCOSE (AUTOMATED)2025-02-06 17:05:28* Test Item Value Reference Range Interpretation Comme nts POCT GLU (test code = 5022260849) 189 mg/dL 70-110 H Lab Interpretation (test cod e = 59108-0) Abnormal [facility] Urinalysis, Qgmjlusltk9265-70-05 15:42:00 * Test Item Value Reference Range [...] U APPEAR (test code = 3267) clear [facility] HospitalMEAS,POST-VOID RES,US,FTQ-FZXDVTQ5953-55-08 00:00:00* Test Item Value Reference Range Interpretation Comme nts PVR (URINE VOLUME) (test code = 5193) 214 ml 0-100 [facility] Abdomen pelvis w wo ltqdtfce6511-13-34 19:02:43EXAM: CT ABDOMEN PELVIS W WO CONTRAST [...] No suspicious lytic or sclerotic bony lesions arepresent.[facility]. Metabolic Panel (78020) 2025-01-10 17:16:30* Test Item Value Reference Range Interpretation Comme nts NA (test code = 9734571163) 137 mmol/L 135-145 K (test code = 4791229477) 4.4 mmol/L 3.5-5.0 CL (test code = 5184609300) 104 mmol/L 98-108 CO2 TOTAL (test code = 8034758784) 25 mmol/L 23-31 AGAP (test code = 5186327889) 8 2-16 BUN (test code = 3836606473) 15 mg/dL 7-23 GLUCOSE (test code = 1653955039) 145 mg/dL 70-110 H CREATININE (test code = 2160-0) 0.59 mg/dL 0.60-1.25 L TOTAL BILI (test code = 9402920652) 0.8 mg/dL 0.1-1.1 CALCIUM (test code = 7391259469) 9.5 mg/dL 8.6-10.6 T PROTEIN (test code = 9863402222) 7.1 g/dL 6.3-8.2 ALBUMIN (test code = 9390511713) 4.2 g/dL 3.5-5.0 ALK PHOS (test code = 1738136018) 69 U/L 34-122 ALTv (test code = 1742-6) 20 U/L 5-50 AST(SGOT) (test code = 2729497854) 33 U/L 13-40 eGFR (test code = 63490-3) 106.3 mL/min/1.73m2 CKD-EPI eGFR (2020). Assuming creatinine has been stable day-to-day for at least three months, the eGFR indicates Category G1 (>= 90 mL/min/1.73 m2) Lab Interpretation (test code = 82525-7) Abnormal [facility] HospitalProthrombin Time / [id number] 17:11:32* Test Item Value Reference Range Interpretation Comme [facility] PROTIME PATIENT (test code = 5964-2) 10.9 10.1-12.6 INR (test code = 6301-6) 0.9 Normal INR <1.1; Warfarin Therapeutic range 2.0 to 3.0 or 2.5 to 3.5, depending upon the indications. Lab Interpretation (test code = 46532-9) Normal [facility] HospitalActivated Partial Thrmplas Rdc3370-93-76 17:11:32* Test Item Value Reference Range Interpretation Comme [facility] APTT Patient (test code = 3173-2) 31 26-36 ROLANDO (test code = ROLANDO) The [facility] patient population mean normal value for aPTT is 30 seconds. Lab Interpretation (test code = 33478-7) Normal [facility] HospitalCbc with Taxv3597-68-77 17:03:30* Test Item Value Reference Range Interpretation Comme [facility] WBC (test code = 6690-2) 8.76 4.20-10.70 RBC (test code = 789-8) 4.97 4.26-5.52 HGB (test code = 718-7) 14.8 g/dL 12.2-16.4 HCT (test code = 4544-3) 46.2 % 38.4-49.3 MCV (test code = 787-2) 93.0 fL 81.7-95.6 MCH (test code = 785-6) 29.8 pg 26.1-32.7 MCHC (test code = 786-4) 32.0 g/dL 31.2-35.0 RDW-SD (test code = 16342-3) 42.6 fL 38.5-51.6 RDW-CV (test code = 788-0) 12.4 % 12.1-15.4 PLT (test code = 777-3) 267 150-328 MPV (test code = 81784-5) 9.9 fL 9.8-13.0 NRBC/100 WBC (test code = 1278899889) 0.0 0.0-10.0 NRBC x10^3 (test code = 5659168842) See_Comment [Automated me ssage] The system which generated this result transmitted reference range: 10*3/?L. The reference range was not used to interpret this result as normal/abnormal. GRAN MAT (NEUT) % (test code = 770-8) 55.1 % IMM GRAN % (test code = 8301396546) 0.20 % LYMPH % (test code = 736-9) 36.2 % MONO % (test code = 5905-5) 7.0 % EOS % (test code = 713-8) 0.9 % BASO % (test code = 706-2) 0.6 % GRAN MAT x10^3(ANC) (test code = 5090201354) 4.83 10*3/uL 1.99-6.95 IMM GRAN x10^3 (test code = 8307998441) 0.00-0.06 LYMPH x10^3 (test code = 731-0) 3.17 10*3/uL 1.09-3.23 MONO x10^3 (test code = 742-7) 0.61 10*3/uL 0.36-1.02 EOS x10^3 (test code = 711-2) 0.08 10*3/uL 0.06-0.53 BASO x10^3 (test code = 704-7) 0.05 10*3/uL 0.01-0.09 [facility] HospitalDME/SUPPLY WSWANJZMHYTNZ0799-74-25 15:54:01 Ordered by an unspecified provider.[facility] HospitalSurgical Pathology Gbak1504-29-02 14:32:21* Test Item Value Reference Range Interpretation Comme nts Case Report (test code = 0578906887) Surgical Pathology ?Case: [id number] ? Authorizing Provider: ?Mindy Andino MD ?Collected: ? 12/28/2024 0906 ?Ordering Location: ? ? [facility] ? ? ?Received: ?12/29/2024 1545 ? Surgical Center ?Pathologist: ? Khadijah Corbin MD ? Specimens: ? A) - LARGE INTESTINE, RIGHT-ASCENDING COLON, Polyp ? B) - LARGE INTESTINE, CECUM, Polyp x2 ? C) - RECTUM, Recto- Sigmoid Polyp ? Final Diagnosis (test code = 5459465805) p2lohGTjWCAtb3cdISXmsS FuZzEwMzNcZnRuYmpcdWMx MXrmbpKdCHewhEqeYFH1ZP WnNR9dkUqvzRj8bExuEZOc hlA7xBXePZctu2tcQOL2x7 awkmquZHOmXOifCs5atMLq gRwgXyHmCNErTIy1pG80OG CnlH4aeLYoATz5KCPrkFCl ugYqPeAsUYCcpYBahVY4UI UrOT7eohntMVfgDGgdNSPf rqF1FVAdzNZgV9IrGHQyMN 4huzdwZDW1XPxuYZWyZSB1 MsIsIILne5Rwuuw3AbYzsB FyZFxwbGFpblxmczIwXHBh ciBBLiBMQVJHRSBJTlRFU1 NFNnLiANXLC4aANQHYF6QD EKmWYpQTT1oFWayaLG2NPV VBV2PQMCb6SAXfxwHlANHu RABEXCIQLMZTFLHUMV3QNX EgIFxwYXJcZnMyMlxwYXJc ZnMyMCBCLiBMQVJHRSBJTl JNW5SMOlMdBPANC5DEGXLH S6qGUXPRDK8XSUUULSP0UT BhciAgICAgLSBPTkUgRlJB B62UGpFmX3EbUUYGIQiWMg THFDHTC70THOruNAMuODYw RV8cWcOEP81ZSjQZVI1OMV KGSO0YPQSbUGMGS0MVHXtX JNbdKU8FWSIGXDsPXJ6RQT OaP7xQFutYHdDleXQoVXBv JlZewDOaSNSsPeHoUc5wI4 9PE52wINVTT8DPN3eUKD0J VOeeMK6ZKBQTK7FQAWs7QK XanoUzYYGtPGIUL3tYKytR ZZ4BB83HAELAYSHHKJJVQ8 6FInGRHUJTOI7YOX4PZLEA I2wGUXnORFFgwBMfVBYoJJ SpNG3UZDGGSF4OPHWVM7YT HHJKJG1UQISvSLRVSbPLTn lFRCBccGFyXHBhciBCaWxs tWPmG0fmrkTrJALTJAZzpC AeAAZrzd14CCS7DgJro4X1 HBNlOeJjOMCcAG5zePorQM WoJA9iQRBdE7hoxT1dojb4 ZpZaYYEhGcQ8AHQljdG4Bj i8VMGpMZmbj0fjx4SzW8Pl sYIrmRl1r0jvKDOsClR3hY FfRMoqF0rkstCwmFNzNDUn WLq3wXjnJwNtRHLvg0ofny BcZmNoYXJzZXQwIENhbGli lom5hT68QBPscC1ufILzHA kynmDkBsL5HQqtODShRnI2 HABdhIXfDJLfQ0zoADXhYP jwCCThLQwrvABmJWR2dFlw y3S5cOQkkLZciDodMfGcMe RlZWDDu9FaWDx2sWnkR1Kk DHYoHaD1mNFuUYXiORodRQ UqFOYqadA3nG79DLzlhnP5 cLGfw2Rxh61vg375qN9nxY DrXOW0YOTdIENjbUFnYORd INL5ZQDxvRVeR9atCWMuTB 3txrpuIFzlFAlfRYJcgGD7 BHSppRAkE8GcYMRpBWgzHK Kiujg2NlQzZv3ykXQkyWts JYywl4rkr7yvuPKvSfu1II MwIcPlTdczCXave6Onc6uo HCGirs5eDQT3zLYpjWhfd2 D1iFSkQFEqgDMavqKkFSRx EdF2SUqmVM3cwx36TUVhHG J6wd0cfQXvoZxntfSkxZIy ZHkrB5LcHJGem804VHDiG9 AaJJFgz0I9uhXtPfVfCZAv kEQ4qxT4DGBqRRx0kYFgur I8xgZotTJlQ1sgvP4cOLPm DB9vaporb6iaMDvaJHhuZP ZfbNC1rxQ6RAOvoQGzV6Fc sL3yKCBhAFheQIAngnm8Ql VnQs4dkVHnyKuzIPavNvat YWdlXHBnbmNvbnRccGduZG VjXHBsYWluXHBsYWluXGYw CAWaRlTpbGimjTdiuC7rFi CqScXfMFurBL8vJGHaE2bl bLQbXJJyIAKlT8cmIhAuwI 9jaFxmMVxjZjJcZnMyMFxw YXIgSSBoYXZlIHBlcnNvbm DbaRuxukQ3dDH4PTHlWCta WPAuRNUbnYGonq6lxMdaYG SaPE0pGHAiwqKfJVlsjPjm DEkqGDR9QCFcpSXhgLWggH FkZSBieSByZXNpZGVudHMs TATpjGsxg9Sxe9YdaGK0nZ 7an3oog0UmVRUrcYE4QF01 htV1kX0mQWVqWI5eRIQmLM 9ozCPyjJXoLTSwd95qmDbc cyByZXBvcnQuXHBsYWluXG YyXGZzMjhcbGFuZzEwMzNc aGljaFxmMlxkYmNoXGYyXG zhS1pjTxTzXbAzISlhGPW8 fQ== Clinical Information (test code = 1817004278) Screening Colonoscopy Gross Description (test code = 3598784617) x5avwAUsCGWrkMHYEIW8XT CcBX3uaPwceZv9eRdtFXMw ziY9eDFaWKjuc8luMFR9v0 xmcwDJKvajVUOqIO5bJYqn JNGmKV3pMpLgSBPcNvNaKC BhcGVydzEyMjQwXHBhcGVy qVK3QAVmKS4grktgOPufJE lyCXCjkkK1WYYflDFjL0Qh RHOwDO9nfodvALI8NOWELv emDk6gtVWfzIcdEuSoUwGf GUYqIHQoRDHob1yydxDCxc goeLm9oA4AYZDkM3ZvXE7T l9ocFEXavKNcGYO7LPggv5 ohEShgLOO3EBXmIPFdTWAx ZU4MVxOeQYX2DCS6CZPmLv F9RKg6PDUQYQTzGUI8BWoh CgG5GEf3KPWoRJ8bMPoziZ QqIUnjHerhUMehS298JXhw QAQoR0SeJ7ZcMXumEtYfCL jbTCFuRKXzVGxiATRlA7ZP JQVmDHhdXHC0YxUgZLi5LC c0KQ1HZtJpWWItWFZ6CrS2 UCSxANt0CEdbFQ3KKHPwPH M8GjQ4VRvyHHSwEjXfKWj7 IDIgXFxzcyAzIFxcZmwgXF inK39goDEiXMOTYfhbhPFp blxmczIwIFNQRUNJTUVOIE PoyNDaM0zsOxJhOzitDGNr DQpccGFyZCANClxwbGFpbl xsdHJjaFxmczIyXGVwaWNO DWJ9SJ0dEZGFTjuaoSPsQT Enb8IfJZkqwQubFKXxSsXd UMxUuUAvnU2mkkWLAPblXV TdR1PnorAaOAxoUENuab8y bGluLCBsYWJlbGVkIHRoZS IrCJMgCY74L1FjmtPuLBhd VUggbnVtYmVyLCAibGFyZ2 IidX29MLP3cG6vJXBzjKqz fBCws7CymcEaezhpV30hz7 9fWJIstOlpQwJdd95bmYH2 uwPhUbV7AROuys1rkX8cQT xdpkFztDvpxjWyq6C5SMAn b9P5JBPzsiHfaJRdjTAsNH DcAjO3VIXeFCThhTHazhEj gNWikVNwqC7oidHcz41bYC H8PPBmGKX2JGYsERO1EYJm EjDsbTVkjvFcM3vqIIarzL UpLiAgVGhlIHNwZWNpbWVu IGlzIGZpbHRlcmVkIGludG 4cRGUnuZ5aa4eiKbLbNFFi ENEfwrRapOWamCT6OVSwgY 1bnU00psPkxbFLEG7ZOvtz pGteHsFjxOYpHpC6GAJzkN RtAKZ6OU3mbRlzXQEuXZs9 YTnkQLRsC1XkL1UxVEaoIs BcXGlkIDUxMDAyIFxcZGIg I1ZYPMQrEAkjXKJ7CtDxLN r2WYm1CP3TJnSdVHYtOZA8 OwC2ZMRwLTi9AUncKX2QCF FoLYZ7Hwk3RpGhLFXdCmDl UXn5EGNkCTuwtoOcGJimLg sqBRrlP08hlSXcESdsBhKp DJajwScwLELsPYA8BD4FJY UoKlFuT6TZI9bXMG2xTgcc czIyXHBhciANClxwYXJkIA 8GZCJuHIcyAEr1ucSlCIPe FpZsNYTuL68ir5YIt2FwSJ 7VYOq3dpMgrkczImSxYHOb tCQFx7LaOYxrQFLpYJHxvQ KOz9RwHPJXVdNgYTJgwTTk ZMDgoZYtulYrDPg7VSTnlO 1eZc1bvAOijO4mDNgyAmUs ZWQgdGhlIHBhdGllbnQncy FxCB6pBDIZNWOvuP9mMJHm VZTtPRRoTEBxgnUse2Gzih JyDFTmP9WkHZJcf0n2gGX9 QHPbAHTtwuIci1IaSM6qZY WgdWAaWQTuowhcJD3gMJ88 j9paMJRhByNevAkyg0RnHC TlFBuvYP15cjSxRD33DSxr GI5qGUofLD1yVSGkEVWbSV AwLjMgeCAwLjIgeCAwLjIg Y67wSrXbUBmlJFJfAEBlrT VuIGlzIGZpbHRlcmVkIGlu hQ4hSIWgwF2il5siMzGyBX VrKJLcrwExgAOuxBK4VRTj bT2acB02taEtrxNUZD7YYt uxrAemVkJxpJCaIhQ0ELBx nBBuUOS7QC2toGrbGXThFN x5VZurXGBuC4FkP4FcFCrt ZyBcXGlkIDUxMDAyIFxcZG AoK3VVMRRgVJvzKHR4NfOf NEd8IGe2QU8YJuBiJFMbHD R8Rgc9DxDnKKh6WRplQH5H CFXrPHI6EXNtBXUfAOEvNv WrVDw3WYCyQJenwkMdUIbi OqwjDPmoI57plQZqUPxmLl UuMVwzaKjfCPDqDUB6FW3A ITBpCoZoP8APS9lDPP8qC9 xmczIyXHBhciANClxwYXJk SH9DQEIsGNhyZTx5gyOkZO SdImYjDRMiC20au0RIg5Fk YZ6UZBg0neKcqhkyOeRuZR OzqWXOs1OqOMWQSjGdVKUe hEQwGRHbxORsfaFkMIe4PS SxeW9zUx1bqPFanU1aVVhk YmVsZWQgdGhlIHBhdGllbn YgixUkDX3oIFYKWRYhbR2w ZNExPRQrERI9kK4dIIGnU8 Ski7dknJ8nCFCfc5s8oMDq YV4pPRSiygAvj9ZhYB5nEW Ctq5ieD6hiKPUhnMUpgHTh GR06e5enDAMpByRhkVzps2 TsPMGrAPagAB18CVizIeJa eHYcDgJftNKgRbPmA13hJx AgVGhlIHNwZWNpbWVuIGlz SJLxpENsizZkUYpzqC8hEN PpeR5ok8zkAhMmMGHyXRXx vuFguIPxpHE9NQAivV2txE 99mtBnckTNPN4gfLEiRL8Y GTRcerEcaGPjoUAvFF5OUL OyssNRQgati4VnEP7sR0Kl LWZPPRTIQ9NzNRYataCJMc jgry24WHA0r3qktHNqIHjm VfetnZTwixS8CDeRDYBVHB dPCjCfTE7sKYzVWamGJCkE MbnhXJHxYGD6RGgRKHXAsO Y1rBwixDt0n5umrNRfu1c1 GUwlXMD8iXFiXl0jOBB4JD O6VnWmu1eptPErQOicWbiv vXNrxeO3USsXRDQTOVfJAd BsLE5dCIeLNnqCNxR3KuVk JHTptCA2BGERKRbkhGe9PI i8yZptHpldivFgaFPyIcDQ fG4auDwcyF9cfRUtG9rfRl DmWyanSSTuAWaim6KpWSnk cGljWHNhMzAgDQpcZXBpY0 0kg9ETu2Lcp3pamOyyp1Aa oCIcPH62NDPklDBnIRA1NO 5kfVxwYXIgDQpccGFyZCAN Cn0= Disclaimer (test code = [id number]) r1xyrBNkAUZwi6xoSWIhzP FuZzEwMzNcZnRuYmpcdWMx ZBxcnjGwUGqmv1SgF7TsMu AwMFxhbnNpXGRlZmxhbmcx VLHhDCS9vrAoQJClHAwgXM FsMBatLi8maJQycPjkRaTg VKEqq0fkfzFVQFccIwNuU2 25BNNvWHoem5jgp8EcWLLs eJAab2X8TPZWufbxaGo6kW twY16nx0D5QjbxX7yvJTBi OQYtP9TfJR4xWDVqGam6EZ B6VJA7CVIkLOGjX9KaQS8i QIJluFLbQTg6x0jqhLchBL InVON9z6mgYPpmrqVdSJ4m fw9esXl2v1jtkeNsGJTgKH OauFXWPSQlW5LtgTgvKr9f zRp9aSgzLsmpJGB8Rtf0WP 6dnm97cai1uBpjOVRjwzuk FgB0GPeyQQUlyvlqFTg7VS ypSJCoeLD8KGJrpIXkD9Kz MAAcJK7ymcw0PMY1NPdsMJ ChSqM9OQXlyWPpHZYthLha UWtvt056QOZ9XhClIE6sK4 Oif4P5pC9zuHGqGJOadDQy BlVnOPUiso6skLQnLWouc0 NkXKW4vaK8rYEopWHzOMNu ZC92Jibui8FkRhffe7ChJ0 3tfPT0NVuzc1jmEW8xJgX3 bfThPYqnw0sssC4lBgX9VL dtEI4zHZ8jRRZcuL0ydtue XHBnYnJkcmhlYWRccGdicm IbKb8aqZjnWGA7SWqeA1jx oC1rIvX2WXceZ2beqS9dPE h5XFpnjJS2AGYwdV0xVZ9a cmkhd1huHIzuNWhoCNRerp Z7okV5UEUbhWNvM3GeaO6u WYQfYC2wuuzzm0rsWVJ1UF meOUYsZXO7IrEmNYJlx8Mg vlr3SoOra7GacCGqWUwjV9 7ac722QOQjwjElB9gjfMGj idiphOZudyxpTTyidfI9DJ BqoyAfv1OqBHVtMZY7SLdv PFhaqBHtHUEytVimx8isH4 RscGFyXHBsYWluXGYxXGZz MjBcbGFuZzEwMzNcaGljaF agUGthNjYjYLUtGTmmR2jt MkQvF8PuRTSmFcCyoYVeR4 ggVGhpcyByZXBvcnQgbWF5 PLgvP4d0PEPxhoZadHk4bo QgAzDhRYYtWXO9HQeafGBa URGko6BjtrcckNFaPb4bvL NaSVMeuM8nEHZzDGDcISao RG9twEh2LMGPkKLipUDvSp CYOTYuKY19nuKxYQAQnrmy j8B8OOolUIMjr6DaxFNjQ2 rrc3OpLBYty13xGN7sb9E7 m7tgNGM4OR3dl4SoVTRstS ClhBOwLGHro2Ldgbiwv2Nd CRKznnOcw1CoHPKaspHxgQ AdHJAphdGbfx7yvbKjNHHm BSNsT1YkszruoLvwspMuGG Fiiy0ohuCxPXP2DFCTCYTi MHGut3SgrP8axYBBGPC7nC Omki6xgfYOyDQuKGWixz54 GSFwJI2vI4wvPGTxVSTvyy UecWWee9VdSHAulXS9kDKq LT5JHnZTm01eCRWeLGGIdz VqIFSwlWhbiCI6scS8nW5c IChGREEpLlx+IFRoZSBGRE AsKC3nrgXtl2MzalNsgEtz VHCmxWDtf7UqbEIzr5YztX ojo6GweVAwbZVzLR9tIDNs clxwYXIgVVRNQiBMYWJvcm T6f3RoWRVlSPIcYXU2hFgg wyf5QCIktP5mMKEfT6uafd kgEIahXQSff5ZaeE0obCBI kYQld6WubEBtaJCYyOYaZJ 3tqbXpQFhNZAyCCGW1etAi ITNfb0UeEXvfJ7tjF01wsT zesYq8oQN6ZYM8aB6zQuo+ IFxwYXJccGFyIEFwcHJvcH MaROJcbMwysxHcP6WpzxOe pG2ycBYragGjLF4cVQ9bN2 B5cREfKKKprtZlm9ohRYux dmUgYmVlbiByZXZpZXdlZC Juk1XtZDbwBHW5IQmlvfWi bmNsdWRpbmcgSCZFLCBTcG MwnKWyGUB6PJsovzOcklKk AZ7scM9vvTqhaS6tiWFqaF N6xqwePLHcJJJqdLcuLFYw TF9ezZuvqC1uGbEoVmTfWM kxUP2xFMWuP7tvtPXdHQZs RYTxL1wjCuSlcV7vfAikGI xjZjJcZnMyMFxwYXJccGFy XHBsYWluXGYxXGZzMjBcbG FuZzEwMzNcaGljaFxmMVxk DxNfJLSwJBjwP9zgBfNhP4 NeRTRzGgYeoHExU7hgAGof OTE6JLMrIC2osHNwEA80eO Rlm4nmSAvaaEbpfe4cU99t lVEvYErdnEcfFWSby84se5 SyEECofpVuia8hQMMwmtC4 hS2xTFZvwJrgRFLewFEwZU Vzq0CeIXskzKPgfmPeDCrk FPTrWJFstEJxfcL5epBgge SsfzTkDHMhxVezKKKwp7Lp FEFqYFluq0Fzsf0huZJyLT OuofXFhStbhEPgkA3wH7Ph RADzCNPxwa8oQLErdG2cCD ehh5YrynslEHRlLRFwQIHv dvHcxx8nTGLieQVTFB5BIJ swqUNba9SirfRwW6eQTNZ6 NUQwNjYwMjgxKSBleGNlcH DoUUAmnk94BZLvhC9zhNkc QFLrrR7uwQ3biRczoR2zJt LyIrUnPXwjMS0pNTPwM5xi iHMyZQCjXJSuF7nkAcIfuK 9jaFxmMVxjZjJcZnMyMFxw YXJ9fQ== Embedded Images (test code = 0626575279) [facility] GLUCOSE (AUTOMATED)2024-12-28 15:54:00* Test Item Value Reference Range Interpretation Comme nts POCT GLU (test code = 8035788755) 234 mg/dL 70-110 H Lab Interpretation (test cod e = 46359-2) Abnormal [facility] GLUCOSE (AUTOMATED)2024-12-28 15:54:00* Test Item Value Reference Range Interpretation Comme nts POCT GLU (test code = 6336557967) 234 mg/dL 70-110 H Lab Interpretation (test cod e = 77051-5) Abnormal [facility] GLUCOSE (AUTOMATED)2024-12-28 14:33:29* Test Item Value Reference Range Interpretation Comme nts POCT GLU (test code = 7186721534) 215 mg/dL 70-110 H Lab Interpretation (test cod e = 73879-0) Abnormal [facility] GLUCOSE (AUTOMATED)2024-12-28 14:33:29* Test Item Value Reference Range Interpretation Comme nts POCT GLU (test code = 3430757240) 215 mg/dL 70-110 H Lab Interpretation (test cod e = 23449-1) Abnormal [facility] Urinalysis, [id number] 17:55:00 * Test Item Value Reference Range [...] U APPEAR (test code = 3267) yellow [facility],US,[id number] 17:53:00* Test Item Value Reference Range Interpretation Comme nts PVR (URINE VOLUME) (test code = 5193) 187 ml 0-100 [facility] HospitalGlycosylated Hemoglobin (A1C)2024-11-07 16:49:01* Test Item Value Reference Range Interpretation Comme nts HGB A1C (test code = 4548-4) 6.5 % 4.0-5.7 H ROLANDO (test code = ROLANDO) Reference RangesNormal: <5.7%Prediabetes: 5.7 - 6.4%Diabetes: > 6.5% Lab Interpretation (test code = 84940-5) Abnormal [facility] HospitalThyroid Stimulating [id number] 16:32:18 * Test Item Value Reference Range Interpretation Comme nts TSH (test code = 8830126112) 1.88 0.45-4.70 Biotin has been reported to cause a negative bias, interpret results relative to patient's use of biotin. Lab Interpretation (test code = 31176-4) Normal [facility]FREE [id number] 16:18:21* Test Item Value Reference Range Interpretation Comme nts FREE T3 (test code = 9091700308) 4.05 pg/mL 2.77-5.27 Lab Interpretation (test cod e = 57560-1) Normal [facility] HospitalLipid Panel (57521)(Total Cholesterol, Triglycerides, HDL)2024-11-07 16:04:03* Test Item Value Reference Range Interpretation Comme nts CHOL (test code = 4151165834) 138 mg/dL 120-200 HDL (test code = 8495925791) 48 mg/dL >=40 HDLC RATIO (test code = 3872125847) 2.9 <=5.0 TRIG (test code = 2698680695) 70 mg/dL 30-170 LDL CHOL (test code = 30406-5) 76 mg/dL <=160 VLDL (test code = 1993197764) 14 mg/dL 5-60 Lab Interpretation (test cod e = 44919-3) Normal [facility] HospitalFree [id number] 15:59:39* Test Item Value Reference Range Interpretation Comme nts FREE T4 (test code = 1512068731) 1.16 ng/dL 0.78-2.20 Lab Interpretation (test cod e = 64476-3) Normal [facility] Urinalysis, Zcnhzxuucq9245-17-23 16:19:00 * Test Item Value Reference Range [...] Clear Lab Interpretation (test cod e = 22022-1) [facility]normal [facility] HospitalME[facility]ID RES,US,[id number] 00:00:00* Test Item Value Reference Range Interpretation Comme nts PVR (URINE VOLUME) (test code = 5193) 17 ml 0-100 [facility] Urinalysis, [id number] 19:08:00 * Test Item Value Reference Range [...] Cloudy Lab Interpretation (test cod e = 06738-4) [facility]normal [facility] HospitalME[facility],POST-VOID RES,US,[id number] 19:08:00* Test Item Value Reference Range Interpretation Comme nts PVR (URINE VOLUME) (test code = 5193) 18 ml 0-100 [facility] GLUCOSE (AUTOMATED)2024-08-26 16:30:13* Test Item Value Reference Range Interpretation Comme nts POCT GLU (test code = 6619949745) 213 mg/dL 70-110 H Lab Interpretation (test cod e = 34902-8) Abnormal [facility] GLUCOSE (AUTOMATED)2024-08-26 16:30:13* Test Item Value Reference Range Interpretation Comme nts POCT GLU (test code = 2452902074) 213 mg/dL 70-110 H Lab Interpretation (test cod e = 72145-6) Abnormal [facility] GLUCOSE (AUTOMATED)2024-08-26 12:37:35* Test Item Value Reference Range Interpretation Comme nts POCT GLU (test code = 0810032521) 215 mg/dL 70-110 H Lab Interpretation (test cod e = 58354-9) Abnormal [facility] GLUCOSE (AUTOMATED)2024-08-26 12:37:35* Test Item Value Reference Range Interpretation Comme nts POCT GLU (test code = 1439008004) 215 mg/dL 70-110 H Lab Interpretation (test cod e = 26617-8) Abnormal [facility] GLUCOSE (AUTOMATED)2024-08-26 01:38:34* Test Item Value Reference Range Interpretation Comme nts POCT GLU (test code = 3315483092) 219 mg/dL 70-110 H Lab Interpretation (test cod e = 74494-2) Abnormal [facility] GLUCOSE (AUTOMATED)2024-08-26 01:38:34* Test Item Value Reference Range Interpretation Comme nts POCT GLU (test code = 3462815464) 219 mg/dL 70-110 H Lab Interpretation (test cod e = 59672-2) Abnormal [facility] GLUCOSE (AUTOMATED)2024-08-25 21:36:35* Test Item Value Reference Range Interpretation Comme nts POCT GLU (test code = 0019395698) 307 mg/dL 70-110 H Lab Interpretation (test cod e = 93859-4) Abnormal [facility] GLUCOSE (AUTOMATED)2024-08-25 21:36:35* Test Item Value Reference Range Interpretation Comme nts POCT GLU (test code = 1672268384) 307 mg/dL 70-110 H Lab Interpretation (test cod e = 23410-1) Abnormal [facility] GLUCOSE (AUTOMATED)2024-08-25 18:34:58* Test Item Value Reference Range Interpretation Comme nts POCT GLU (test code = 3059950116) 330 mg/dL 70-110 H Lab Interpretation (test cod e = 19768-7) Abnormal [facility] GLUCOSE (AUTOMATED)2024-08-25 18:34:58* Test Item Value Reference Range Interpretation Comme nts POCT GLU (test code = 0579596444) 330 mg/dL 70-110 H Lab Interpretation (test cod e = 90405-6) Abnormal [facility] GLUCOSE (AUTOMATED)2024-08-25 12:47:32* Test Item Value Reference Range Interpretation Comme nts POCT GLU (test code = 4709927335) 278 mg/dL 70-110 H Lab Interpretation (test cod e = 01863-1) Abnormal [facility] GLUCOSE (AUTOMATED)2024-08-25 12:47:32* Test Item Value Reference Range Interpretation Comme nts POCT GLU (test code = 7500086514) 278 mg/dL 70-110 H Lab Interpretation (test cod e = 41237-0) Abnormal [facility] GLUCOSE (AUTOMATED)2024-08-25 02:03:33* Test Item Value Reference Range Interpretation Comme nts POCT GLU (test code = 9642877673) 189 mg/dL 70-110 H Lab Interpretation (test cod e = 50988-4) [facility]2024-08-25 02:03:33* Test Item Value Reference Range Interpretation Comme nts POCT GLU (test code = 8988325581) 189 mg/dL 70-110 H Lab Interpretation (test cod e = 78207-1) Abnormal [facility]. Metabolic Panel (60412)2024-08-23 17:30:55* Test Item Value Reference Range Interpretation Comme nts NA (test code = 8716344220) 134 mmol/L 135-145 L K (test code = 0099658334) 4.5 mmol/L 3.5-5.0 CL (test code = 9132507924) 100 mmol/L 98-108 CO2 TOTAL (test code = 3669201790) 23 mmol/L 23-31 AGAP (test code = 2957124485) 11 2-16 BUN (test code = 8725588143) 17 mg/dL 7-23 GLUCOSE (test code = 0740223595) 253 mg/dL 70-110 H CREATININE (test code = 2160-0) 0.61 mg/dL 0.60-1.25 TOTAL BILI (test code = 5625576904) 1.0 mg/dL 0.1-1.1 CALCIUM (test code = 0037735621) 9.4 mg/dL 8.6-10.6 T PROTEIN (test code = 6960922172) 7.4 g/dL 6.3-8.2 ALBUMIN (test code = 6092313340) 4.3 g/dL 3.5-5.0 ALK PHOS (test code = 8186809617) 102 U/L 34-122 ALTv (test code = 1742-6) 15 U/L 5-50 AST(SGOT) (test code = 9749408647) 16 U/L 13-40 eGFR (test code = 69761-2) 105.9 mL/min/1.73m2 CKD-EPI eGFR (2020). Assuming creatinine has been stable day-to-day for at least three months, the eGFR indicates Category G1 (>= 90 mL/min/1.73 m2) Lab Interpretation (test code = 26432-2) Abnormal [facility] with Ofka4470-89-11 17:19:31* Test Item Value Reference Range Interpretation [...] 33.3 g/dL 31.2-35.0 RDW-SD (test code = 21796-6) 42.3 fL 38.5-51.6 RDW-CV (test code = 788-0) 12.4 % 12.1-15.4 PLT (test code = 777-3) 301 150-328 MPV (test code = 38105-1) 9.7 fL 9.8-13.0 L NRBC/100 WBC (test code = 8283930154) 0.0 0.0-10.0 NRBC x10^3 (test code = 0744228032) See_Comment [Automated message] The system which generated this result transmitted reference range: 10*3/?L. The reference range was not used to interpret this result as normal/abnormal. GRAN MAT (NEUT) % (test code = 770-8) 73.1 % IMM GRAN % (test code = 6350702438) 0.40 % LYMPH % (test code = 736-9) 17.4 % MONO % (test code = 5905-5) 8.5 % EOS % (test code = 713-8) 0.1 % BASO % (test code = 706-2) 0.5 % GRAN MAT x10^3(ANC) (test code = 7166898363) 10.29 10*3/uL 1.99-6.95 H IMM GRAN x10^3 (test code = 3228952344) 0.05 10*3/uL 0.00-0.06 LYMPH x10^3 (test code = 731-0) 2.44 10*3/uL 1.09-3.23 MONO x10^3 (test code = 742-7) 1.19 10*3/uL 0.36-1.02 H EOS x10^3 (test code = 711-2) 0.06-0.53 L BASO x10^3 (test code = 704-7) 0.07 10*3/uL 0.01-0.09 Lab Interpretation (test code = 35386-3) [facility]normal [facility],US,[id number] 19:33:00* Test Item Value Reference Range Interpretation Comme nts PVR (URINE VOLUME) (test cod e = 5193) 182 ml 0-100 A Lab Interpretation (test cod e = 77669-0) Abnormal [facility] GLUCOSE (AUTOMATED)2024-08-15 20:53:28* Test Item Value Reference Range Interpretation Comme nts POCT GLU (test code = 3490359424) 129 mg/dL 70-110 H Lab Interpretation (test cod e = 79531-3) Abnormal [facility] GLUCOSE (AUTOMATED)2024-08-15 20:19:56* Test Item Value Reference Range Interpretation Comme nts POCT GLU (test code = 0734862181) 59 mg/dL 70-110 L Lab Interpretation (test cod e = 59952-8) Abnormal [facility] Urinalysis, Ylmximuzkg1747-27-60 13:37:00 * Test Item Value Reference Range [...] U APPEAR (test code = 3267) clear [facility],POST-VOID RES,US,[id number] 00:00:00* Test Item Value Reference Range Interpretation Comme nts PVR (URINE VOLUME) (test code = 5193) 0 ml 0-100 [facility] Urinalysis, Weuennjuog4213-97-39 18:35:00 * Test Item Value Reference Range [...] U APPEAR (test code = 3267) clear [facility],POST-VOID RES,US,[id number] 00:00:00* Test Item Value Reference Range Interpretation Comme nts PVR (URINE VOLUME) (test cod e = 5193) 184 ml 0-100 A Lab Interpretation (test cod e = 68479-0) Abnormal [facility] GLUCOSE (AUTOMATED)2024-07-10 13:24:26* Test Item Value Reference Range Interpretation Comme nts POCT GLU (test code = 8226915847) 170 mg/dL 70-110 H Lab Interpretation (test cod e = 97227-7) Abnormal [facility] GLUCOSE (AUTOMATED)2024-07-10 05:20:57* Test Item Value Reference Range Interpretation Comme nts POCT GLU (test code = 0507705074) 198 mg/dL 70-110 H Lab Interpretation (test cod e = 96459-3) [facility] 02:14:27* Test Item Value Reference Range Interpretation Comme nts POCT GLU (test code = 0919405189) 72 mg/dL 70-110 Lab Interpretation (test cod e = 91243-3) Normal [facility] GLUCOSE (AUTOMATED)2024-07-09 22:05:58* Test Item Value Reference Range Interpretation Comme nts POCT GLU (test code = 7681617370) 368 mg/dL 70-110 H Lab Interpretation (test cod e = 28057-1) Abnormal [facility] GLUCOSE (AUTOMATED)2024-07-09 16:22:56* Test Item Value Reference Range Interpretation Comme nts POCT GLU (test code = 3675628750) 157 mg/dL 70-110 H Lab Interpretation (test cod e = 67054-3) Abnormal [facility] GLUCOSE (AUTOMATED)2024-07-09 13:27:31* Test Item Value Reference Range Interpretation Comme nts POCT GLU (test code = 9882313954) 129 mg/dL 70-110 H Lab Interpretation (test cod e = 82835-9) Abnormal [facility] GLUCOSE (AUTOMATED)2024-07-09 06:44:52* Test Item Value Reference Range Interpretation Comme nts POCT GLU (test code = 1666620142) 164 mg/dL 70-110 H Lab Interpretation (test cod e = 31173-5) [facility]2024-07-09 01:40:51* Test Item Value Reference Range Interpretation Comme nts POCT GLU (test code = 3713823489) 181 mg/dL 70-110 H Lab Interpretation (test cod e = 47543-9) Abnormal [facility] GLUCOSE (AUTOMATED)2024-07-08 22:37:26* Test Item Value Reference Range Interpretation Comme nts POCT GLU (test code = 1970441322) 104 mg/dL 70-110 Lab Interpretation (test cod e = 75976-5) Normal [facility] ([facility] Qharvmy5098-33-62 22:06:45* Test Item Value Reference Range Interpretation Comme nts Height (test code = 9439642904) 72 in Weight (test code = 1128175590) 159 lbs Systolic BP (test code = 5029934876) 143 mmHg Diastolic BP (test code = 5983828471) 79 mmHg Heart Rate (test code = 5731333208) 72 bpm LVOT stroke volume (test code = 3337911923) 52.00 cm3 EF(Teich) (test code = 6360057964) 35.90 % LVIDD (test code = 5526477883) 4.60 cm LVIDS (test code = 2816777270) 3.80 cm Left Ventricular End Systolic Volume by Teichholz Method (test code = 3399324) 62.2 mL Left Ventricular End Diastolic Volume by Teichholz Method (test code = 2471065) 97.0 mL IVS (test code = 4739732067) 0.96 cm LVPWD (test code = 6588954452) 0.93 cm LVOT diameter (test code = 3446310824) 1.81 cm LVOT area (test code = 0524457234) 2.60 cm2 FS (test code = 0943911653) 17 % MV Peak E Riddhi (test code = 2085673652) 43.5 cm/s MV Peak A Riddhi (test code = 4718198598) 60.8 cm/s E/A ratio (test code = 9734208753) 0.72 ratio MV E/e' septal (test code = 9959836397) 13.2 cm/s LA Volume Index (BP) (test code = 5816697942) 25.6 mL/m2 LA volume (BP) (test code = 3998488062) 49.4 mL LVOT peak riddhi (test code = 2879833960) 88.0 cm/s LVOT mn grad (test code = 6646693912) 1.5 mmHg Left Ventricular Cardiac Output (test code = 5769525) 3.5 L/min BSA (test code = 0911659765) 1.93 m2 LA size (test code = 2438765133) 2.9 cm LAV(MOD-sp2) (test code = 8737572704) 62.10 mL LAV(MOD-sp4) (test code = 9061272497) 38.40 mL Tapse (test code = 5538312161) 1.04 cm AV LVOT peak gradient (test code = 7934139080) 3.1 mmHg LVOT peak VTI (test code = 2666186103) 20.3 cm Aortic HR (test code = 9021295053) 67.20 BPM LV V1 mean (test code = 0938105549) 56.20 cm/s MV Prop V (test code = 1829053554) 32.50 cm/s TR Peak Riddhi (test code = 6925810770) 198.2 cm/s Triscuspid Valve Regurgitation Peak Gradient (test code = 2743615611) 15.7 mmHg Ao root diam (test code = 3731085075) 4.00 cm Aortic root (test code = 2112640839) 4.0 cm Ao root annulus (test code = 2679639251) 4.0 cm PW (test code = 5566639608) 0.93 cm 0.6-1.1 EF - 2D (test code = 83304246) 35.90 % Interventricular Septum Diastolic Thickness by 2D (test code = 7495762) 0.96 cm A4C EF (test code = 7946260402) 46.90 % EF(sp4-el) (test code = 8778286378) 48.00 % SV(MOD-sp4) (test code = 5057260738) 62.10 mL SV(sp4-el) (test code = 0636750328) 64.80 mL LV Diastolic Volume (BP) (test code = 7971960959) 105.1 mL A2C EF (test code = 5647475542) 52.60 % EF(MOD-bp) (test code = 5155755368) 50.10 % EF(sp2-el) (test code = 8882899182) 53.50 % LV Systolic Volume (BP) (test code = 6169715951) 52.4 mL SV(MOD-bp) (test code = 9452172511) 52.70 mL SV(MOD-sp2) (test code = 5690576710) 40.70 mL EF (test code = 8435828756) 50 Left Ventricular Stroke Volume by 2-D Biplane-MOD (test code = 6133323) 52.7 mL RV-peck basal d (test code = 7569091562) 4.30 cm RV-peck mid d (test code = 4265869185) 3.9 cm LV Diastolic Volume Index (BP) (test code = 4558980058) 57.5 mL/m2 LV Systolic Volume Index (BP) (test code = 2916701717) 32.1 mL/m2 Radiology Study observation (narrative) (test code = 49139-8) ROLANDO (test code = ROLANDO) ?Left?Ventricle: Left [...] mid anterolateral.Other segments could not be evaluated. [facility]MR [facility] WO [id number] 20:23:06 MR STROKE BRAIN WO CONTRAST HISTORY: [...] in the mastoid air cells and paranasalair sinuses.[facility] 2024-07-08 17:15:23* Test Item Value Reference Range Interpretation Comme nts POCT GLU (test code = 4723895843) 171 mg/dL 70-110 H Lab Interpretation (test cod e = 75962-2) Abnormal [facility] [id number] 14:06:28CT ANGIOGRAM NECK, CT ANGIOGRAM HEAD PROVIDED [...] changes of left frontoparietal craniotomy are seen. [facility] [id number] 14:06:28CT ANGIOGRAM NECK, CT ANGIOGRAM HEAD PROVIDED [...] changes of left frontoparietal craniotomy are seen. [facility] GLUCOSE (AUTOMATED)2024-07-08 13:20:20* Test Item Value Reference Range Interpretation Comme [facility] POCT GLU (test code = 4124562756) 241 mg/dL 70-110 H Lab Interpretation (test cod e = 55993-7) Abnormal [facility] GLUCOSE (AUTOMATED)2024-07-08 10:55:19* Test Item Value Reference Range Interpretation Comme [facility] POCT GLU (test code = 6774557078) 222 mg/dL 70-110 H Lab Interpretation (test cod e = 82321-1) [facility]2024-07-08 02:05:17* Test Item Value Reference Range Interpretation Comme nts POCT GLU (test code = 5273371270) 139 mg/dL 70-110 H Lab Interpretation (test cod e = 70127-3) Abnormal [facility] HospitalFasting Lipd Panel (57087)(TOTAL CHOLESTEROL, TRIGLYCERIDES, HDL)2024-07-08 01:01:17* Test Item Value Reference Range Interpretation Comme nts CHOL (test code = 0143761030) 104 mg/dL 120-200 L HDL (test code = 9688612543) 35 mg/dL >=40 L HDLC RATIO (test code = 7364407402) 3.0 <=5.0 TRIG (test code = 6822828072) 60 mg/dL 30-170 LDL CHOL (test code = 44323-9) 57 mg/dL <=160 VLDL (test code = 5314048455) 12 mg/dL 5-60 Lab Interpretation (test cod e = 82231-5) Abnormal [facility] HEAD WO [id number] 00:48:08EXAM: CT HEAD WO CONTRAST HISTORY: 68 [...] clear. The calvariumand central skull base are unremarkable.[facility] [id number] 23:06:01 * Test Item Value Reference Range Interpretation Comme nts TROPONIN I (test code = 0222802066) 0.003 ng/mL <=0.034 ROLANDO (test code = [...] of biotin. Lab Interpretation (test code = 24977-6) Normal [facility] METABOLIC PANEL (NA, K, CL, CO2, GLUCOSE, BUN, CREATININE, CA)2024-07-07 22:55:20* Test Item Value Reference Range Interpretation Comme [facility] NA (test code = 8785235980) 140 mmol/L 135-145 K (test code = 1692268984) 3.9 mmol/L 3.5-5.0 CL (test code = 3841189117) 108 mmol/L 98-108 CO2 TOTAL (test code = 5461241974) 23 mmol/L 23-31 AGAP (test code = 0405657929) 9 2-16 BUN (test code = 5682111524) 11 mg/dL 7-23 GLUCOSE (test code = 9100378229) 111 mg/dL 70-110 H CREATININE (test code = 2160-0) 0.48 mg/dL 0.60-1.25 L CALCIUM (test code = 0893922381) 9.5 mg/dL 8.6-10.6 eGFR (test code = 02164-5) 113.9 mL/min/1.73m2 CKD-EPI eGFR (2020). Assuming creatinine has been stable day-to-day for at least three months, the eGFR indicates Category G1 (>= 90 mL/min/1.73 m2) Lab Interpretation (test code = 84021-1) Abnormal [facility] WITH [id number] 22:35:57* Test Item Value Reference Range Interpretation Comme [facility] WBC (test code = 6690-2) 7.55 4.20-10.70 RBC (test code = 789-8) 4.96 4.26-5.52 HGB (test code = 718-7) 15.1 g/dL 12.2-16.4 HCT (test code = 4544-3) 43.7 % 38.4-49.3 MCV (test code = 787-2) 88.1 fL 81.7-95.6 MCH (test code = 785-6) 30.4 pg 26.1-32.7 MCHC (test code = 786-4) 34.6 g/dL 31.2-35.0 RDW-SD (test code = 00949-8) 41.4 fL 38.5-51.6 RDW-CV (test code = 788-0) 12.7 % 12.1-15.4 PLT (test code = 777-3) 267 150-328 MPV (test code = 06982-8) 10.4 fL 9.8-13.0 NRBC/100 WBC (test code = 2619753030) 0.0 0.0-10.0 NRBC x10^3 (test code = 9216517115) See_Comment [Automated me ssage] The system which generated this result transmitted reference range: 10*3/?L. The reference range was not used to interpret this result as normal/abnormal. GRAN MAT (NEUT) % (test code = 770-8) 69.1 % IMM GRAN % (test code = 9355201099) 0.10 % LYMPH % (test code = 736-9) 22.4 % MONO % (test code = 5905-5) 7.2 % EOS % (test code = 713-8) 0.8 % BASO % (test code = 706-2) 0.4 % GRAN MAT x10^3(ANC) (test code = 8583450784) 5.22 10*3/uL 1.99-6.95 IMM GRAN x10^3 (test code = 5649486579) 0.00-0.06 LYMPH x10^3 (test code = 731-0) 1.69 10*3/uL 1.09-3.23 MONO x10^3 (test code = 742-7) 0.54 10*3/uL 0.36-1.02 EOS x10^3 (test code = 711-2) 0.06 10*3/uL 0.06-0.53 BASO x10^3 (test code = 704-7) 0.03 10*3/uL 0.01-0.09 [facility] ABDOMINAL AORTA SCREEN [id number] 15:17:23HISTORY: ?AAA screening. COMPARISON: None. TECHNIQUE: Abdominal [...] Mild atherosclerosis of lower abdominal aorta. No AAA.[facility] [id number] 18:38:38* Test Item Value Reference Range Interpretation Comme nts TSH (test code = 9387289284) 1.31 0.45-4.70 Lab Interpretation (test cod e = 71220-1) Normal [facility] [id number] 18:24:57* Test Item Value Reference Range Interpretation Comme nts FREE T4 (test code = 7031410144) 1.30 0.78-2.20 Lab Interpretation (test cod e = 70958-0) Normal [facility] [id number] 18:24:56* Test Item Value Reference Range Interpretation Comme nts FREE T3 (test code = 2460208183) 3.86 pg/mL 2.77-5.27 Lab Interpretation (test cod e = 91431-1) [facility] ([facility])(Total Cholesterol, Triglycerides, HDL)2024-05-31 18:08:31* Test Item Value Reference Range Interpretation Comme nts CHOL (test code = 1832930667) 167 mg/dL 120-200 HDL (test code = 9579259678) 32 mg/dL >=40 L HDLC RATIO (test code = 8064115998) 5.2 <=5.0 H TRIG (test code = 9079991829) 74 mg/dL 30-170 LDL CHOL (test code = 53093-2) 120 mg/dL <=160 VLDL (test code = 7895810607) 15 mg/dL 5-60 Lab Interpretation (test cod e = 24186-1) Abnormal [facility] (27730)2024-05-31 18:08:11* Test Item Value Reference Range Interpretation Comme nts NA (test code = 8082369470) 139 mmol/L 135-145 K (test code = 2998168322) 4.4 mmol/L 3.5-5.0 CL (test code = 2842339334) 102 mmol/L 98-108 CO2 TOTAL (test code = 3548449677) 26 mmol/L 23-31 AGAP (test code = 6263886078) 11 2-16 BUN (test code = 0828591728) 12 mg/dL 7-23 GLUCOSE (test code = 7665103055) 137 mg/dL 70-110 H CREATININE (test code = 2160-0) 0.55 mg/dL 0.60-1.25 L TOTAL BILI (test code = 1087454891) 1.0 mg/dL 0.1-1.1 CALCIUM (test code = 6554236631) 9.6 mg/dL 8.6-10.6 T PROTEIN (test code = 8675183673) 7.2 g/dL 6.3-8.2 ALBUMIN (test code = 8229614957) 4.2 g/dL 3.5-5.0 ALK PHOS (test code = 3221888103) 72 U/L 34-122 ALTv (test code = 1742-6) 22 U/L 5-50 AST(SGOT) (test code = 0447019579) 22 U/L 13-40 eGFR (test code = 18703-8) 109.3 mL/min/1.73m2 CKD-EPI eGFR (2020). Assuming creatinine has been stable day-to-day for at least three months, the eGFR indicates Category G1 (>= 90 mL/min/1.73 m2) Lab Interpretation (test code = 79865-8) [facility]24-[facility] 18:07:20* Test Item Value Reference Range Interpretation Comme nts HGB A1C (test code = 4548-4) 7.2 % 4.0-5.7 H ROLANDO (test code = ROLANDO) Reference RangesNormal: <5.7%Prediabetes: 5.7 - 6.4%Diabetes: > 6.5% Lab Interpretation (test code = 34381-7) Abnormal [facility] with [id number] 17:12:34* Test Item Value Reference Range Interpretation [...] 34.0 g/dL 31.2-35.0 RDW-SD (test code = 28916-7) 38.8 fL 38.5-51.6 RDW-CV (test code = 788-0) 11.9 % 12.1-15.4 L PLT (test code = 777-3) 305 150-328 MPV (test code = 44448-2) 9.5 fL 9.8-13.0 L NRBC/100 WBC (test code = 4489541335) 0.0 0.0-10.0 NRBC x10^3 (test code = 3729336334) See_Comment [Automated messa ge] The system which generated this result transmitted reference range: 10*3/?L. The reference range was not used to interpret this result as normal/abnormal. GRAN MAT (NEUT) % (test code = 770-8) 42.1 % IMM GRAN % (test code = 4690206045) 0.20 % LYMPH % (test code = 736-9) 48.3 % MONO % (test code = 5905-5) 7.6 % EOS % (test code = 713-8) 1.3 % BASO % (test code = 706-2) 0.5 % GRAN MAT x10^3(ANC) (test code = 5854089623) 2.34 10*3/uL 1.99-6.95 IMM GRAN x10^3 (test code = 4284991867) 0.00-0.06 LYMPH x10^3 (test code = 731-0) 2.68 10*3/uL 1.09-3.23 MONO x10^3 (test code = 742-7) 0.42 10*3/uL 0.36-1.02 EOS x10^3 (test code = 711-2) 0.07 10*3/uL 0.06-0.53 BASO x10^3 (test code = 704-7) 0.03 10*3/uL 0.01-0.09 Lab Interpretation (test code = 36934-6) Abnormal [facility] GLUCOSE (AUTOMATED)2024-03-24 13:42:45* Test Item Value Reference Range Interpretation Comme nts POCT GLU (test code = 1138953448) 100 mg/dL 70-110 Lab Interpretation (test cod e = 10864-9) Normal [facility] GLUCOSE (AUTOMATED)2024-03-23 21:56:53* Test Item Value Reference Range Interpretation Comme nts POCT GLU (test code = 7927463066) 159 mg/dL 70-110 H Lab Interpretation (test cod e = 90852-9) Abnormal [facility] GLUCOSE (AUTOMATED)2024-03-23 20:50:05* Test Item Value Reference Range Interpretation Comme nts POCT GLU (test code = 4712906244) 164 mg/dL 70-110 H Lab Interpretation (test cod e = 54786-1) Abnormal [facility] GLUCOSE (AUTOMATED)2024-03-23 16:49:23* Test Item Value Reference Range Interpretation Comme nts POCT GLU (test code = 5065398582) 227 mg/dL 70-110 H Lab Interpretation (test cod e = 02485-6) Abnormal [facility] GLUCOSE (AUTOMATED)2024-03-23 16:49:23* Test Item Value Reference Range Interpretation Comme nts POCT GLU (test code = 7563269748) 227 mg/dL 70-110 H Lab Interpretation (test cod e = 38200-2) [facility]normal [facility]24-[facility]23 12:35:20* Test Item Value Reference Range Interpretation Comme nts POCT GLU (test code = 0102797412) 195 mg/dL 70-110 H Lab Interpretation (test cod e = 17818-3) [facility]normal [facility]2024-03-23 12:35:20* Test Item Value Reference Range Interpretation Comme nts POCT GLU (test code = 8194843610) 195 mg/dL 70-110 H Lab Interpretation (test cod e = 77485-0) [facility]normal [facility]2024-03-23 02:16:55* Test Item Value Reference Range Interpretation Comme nts POCT GLU (test code = 4395961186) 240 mg/dL 70-110 H Lab Interpretation (test cod e = 22704-6) [facility]normal [facility])2024-03-23 02:16:55* Test Item Value Reference Range Interpretation Comme nts POCT GLU (test code = 2562841596) 240 mg/dL 70-110 H Lab Interpretation (test cod e = 97034-1) [facility]normal [facility]2024-03-22 22:23:53* Test Item Value Reference Range Interpretation Comme nts POCT GLU (test code = 4714280213) 266 mg/dL 70-110 H Lab Interpretation (test cod e = 53244-3) [facility]normal [facility]2024-03-22 22:23:53* Test Item Value Reference Range Interpretation Comme nts POCT GLU (test code = 5431236223) 266 mg/dL 70-110 H Lab Interpretation (test cod e = 24285-1) [facility]normal [facility]2024-03-22 18:12:55* Test Item Value Reference Range Interpretation Comme nts POCT GLU (test code = 0267757783) 269 mg/dL 70-110 H Notified Provide r Lab Interpretation (test code = 53777-9) [facility]normal [facility]2024-03-22 18:12:55* Test Item Value Reference Range Interpretation Comme nts POCT GLU (test code = 1163128228) 269 mg/dL 70-110 H Notified Provide r Lab Interpretation (test code = 93205-5) [facility]normal [facility]2024-[facility]-28 17:14:17* Test Item Value Reference Range Interpretation Comme nts MAGNESIUM (test code = 8551826041) 1.7 mg/dL 1.7-2.4 Lab Interpretation (test cod e = 93579-5) Normal [facility]osph[facility]2024-05-28 17:14:17* Test Item Value Reference Range Interpretation Comme nts PHOSPHORUS (test code = 0293121319) 3.0 mg/dL 2.5-5.0 Lab Interpretation (test cod e = 23050-6) Normal [facility] Met[facility] Panel (NA, K, CL, CO2, GLUCOSE, BUN, CREATININE, CA)2024-03-22 17:14:17* Test Item Value Reference Range Interpretation Comme nts NA (test code = 7877204785) 137 mmol/L 135-145 K (test code = 1037577805) 4.0 mmol/L 3.5-5.0 CL (test code = 6662800234) 109 mmol/L 98-108 H CO2 TOTAL (test code = 1785916221) 24 mmol/L 23-31 AGAP (test code = 2788110654) 4 2-16 BUN (test code = 5928617862) 14 mg/dL 7-23 GLUCOSE (test code = 2328267616) 238 mg/dL 70-110 H CREATININE (test code = 2160-0) 0.56 mg/dL 0.60-1.25 L CALCIUM (test code = 0341259484) 8.2 mg/dL 8.6-10.6 L eGFR (test code = 36525-1) 108.7 mL/min/1.73m2 CKD-EPI eGFR (2020). Assuming creatinine has been stable day-to-day for at least three months, the eGFR indicates Category G1 (>= 90 mL/min/1.73 m2) Lab Interpretation (test code = 61468-4) [facility]normal [facility]2024-05-28 17:14:17* Test Item Value Reference Range Interpretation Comme nts MAGNESIUM (test code = 1174496600) 1.7 mg/dL 1.7-2.4 Lab Interpretation (test cod e = 60060-9) Normal [facility]2024-05-28 17:14:17* Test Item Value Reference Range Interpretation Comme nts PHOSPHORUS (test code = 1973284470) 3.0 mg/dL 2.5-5.0 Lab Interpretation (test cod e = 44210-5) Normal [facility] [place] Metabolic Panel (NA, K, CL, CO2, GLUCOSE, BUN, CREATININE, CA)2024-03-22 17:14:17* Test Item Value Reference Range Interpretation Comme nts NA (test code = 1595680431) 137 mmol/L 135-145 K (test code = 4384106123) 4.0 mmol/L 3.5-5.0 CL (test code = 1300050068) 109 mmol/L 98-108 H CO2 TOTAL (test code = 9582507325) 24 mmol/L 23-31 AGAP (test code = 2905968593) 4 2-16 BUN (test code = 0339584945) 14 mg/dL 7-23 GLUCOSE (test code = 5200707698) 238 mg/dL 70-110 H CREATININE (test code = 2160-0) 0.56 mg/dL 0.60-1.25 L CALCIUM (test code = 5379348639) 8.2 mg/dL 8.6-10.6 L eGFR (test code = 60243-7) 108.7 mL/min/1.73m2 CKD-EPI eGFR (2020). Assuming creatinine has been stable day-to-day for at least three months, the eGFR indicates Category G1 (>= 90 mL/min/1.73 m2) Lab Interpretation (test code = 24850-3) Abnormal [facility] with [id number] 16:43:11* Test Item Value Reference Range Interpretation [...] 33.5 g/dL 31.2-35.0 RDW-SD (test code = 42047-8) 39.9 fL 38.5-51.6 RDW-CV (test code = 788-0) 12.1 % 12.1-15.4 PLT (test code = 777-3) 229 150-328 MPV (test code = 24256-6) 10.0 fL 9.8-13.0 NRBC/100 WBC (test code = 0762193540) 0.0 0.0-10.0 NRBC x10^3 (test code = 4021377339) See_Comment [Automated messa ge] The system which generated this result transmitted reference range: 10*3/?L. The reference range was not used to interpret this result as normal/abnormal. GRAN MAT (NEUT) % (test code = 770-8) 82.8 % IMM GRAN % (test code = 6183077692) 0.40 % LYMPH % (test code = 736-9) 14.6 % MONO % (test code = 5905-5) 1.4 % EOS % (test code = 713-8) 0.4 % BASO % (test code = 706-2) 0.4 % GRAN MAT x10^3(ANC) (test code = 4990696069) 4.66 10*3/uL 1.99-6.95 IMM GRAN x10^3 (test code = 1954735874) 0.00-0.06 LYMPH x10^3 (test code = 731-0) 0.82 10*3/uL 1.09-3.23 L MONO x10^3 (test code = 742-7) 0.08 10*3/uL 0.36-1.02 L EOS x10^3 (test code = 711-2) 0.06-0.53 L BASO x10^3 (test code = 704-7) 0.01-0.09 Lab Interpretation (test code = 78571-2) Abnormal [facility] with [id number] 16:43:11* Test Item Value Reference Range Interpretation [...] 33.5 g/dL 31.2-35.0 RDW-SD (test code = 97583-7) 39.9 fL 38.5-51.6 RDW-CV (test code = 788-0) 12.1 % 12.1-15.4 PLT (test code = 777-3) 229 150-328 MPV (test code = 76472-9) 10.0 fL 9.8-13.0 NRBC/100 WBC (test code = 1340921316) 0.0 0.0-10.0 NRBC x10^3 (test code = 6559938355) See_Comment [Automated messa ge] The system which generated this result transmitted reference range: 10*3/?L. The reference range was not used to interpret this result as normal/abnormal. GRAN MAT (NEUT) % (test code = 770-8) 82.8 % IMM GRAN % (test code = 9550142101) 0.40 % LYMPH % (test code = 736-9) 14.6 % MONO % (test code = 5905-5) 1.4 % EOS % (test code = 713-8) 0.4 % BASO % (test code = 706-2) 0.4 % GRAN MAT x10^3(ANC) (test code = 9993152310) 4.66 10*3/uL 1.99-6.95 IMM GRAN x10^3 (test code = 2278406370) 0.00-0.06 LYMPH x10^3 (test code = 731-0) 0.82 10*3/uL 1.09-3.23 L MONO x10^3 (test code = 742-7) 0.08 10*3/uL 0.36-1.02 L EOS x10^3 (test code = 711-2) 0.06-0.53 L BASO x10^3 (test code = 704-7) 0.01-0.09 Lab Interpretation (test code = 37375-6) Abnormal [facility] GLUCOSE (AUTOMATED)2024-03-22 16:30:20* Test Item Value Reference Range Interpretation Comme nts POCT GLU (test code = 9254379428) 250 mg/dL 70-110 H Lab Interpretation (test cod e = 82999-6) Abnormal [facility] GLUCOSE (AUTOMATED)2024-03-22 16:30:20* Test Item Value Reference Range Interpretation Comme nts POCT GLU (test code = 9224153980) 250 mg/dL 70-110 H Lab Interpretation (test cod e = 92584-3) Abnormal [facility] Confirmation (Lab Only)2024-03-22 12:34:24* Test Item Value Reference Range Interpretation Comme nts ABO & RH (test code = 20) A Positive Performed at [facility] Laboratory [facility] Blood [address] Free: [phone] No. [id number] [facility] Confirmation (Lab Only)2024-03-22 12:34:24* Test Item Value Reference Range Interpretation Comme nts ABO & RH (test code = 20) A Positive Performed at [facility] Laboratory [facility] Blood [address] [address] Free: [phone] No. [id number] [facility] GLUCOSE (AUTOMATED)2024-03-22 10:48:44* Test Item Value Reference Range Interpretation Comme nts POCT GLU (test code = 8932994233) 204 mg/dL 70-110 H Lab Interpretation (test cod e = 35641-4) Abnormal [facility] GLUCOSE (AUTOMATED)2024-03-22 10:48:44* Test Item Value Reference Range Interpretation Comme nts POCT GLU (test code = 3801512456) 204 mg/dL 70-110 H Lab Interpretation (test cod e = 47570-5) Abnormal [facility] [id number] 00:00:00* Test Item Value Reference Range Interpretation Comme nts POCT Glu (age>30days) (test code = 3342) 204 mg/dL 70-110 A Lab Interpretation (test cod e = 35515-5) Abnormal [facility] [id number] 00:00:00* Test Item Value Reference Range Interpretation Comme nts POCT Glu (age>30days) (test code = 3342) 204 mg/dL 70-110 A Lab Interpretation (test cod e = 30294-1) Abnormal [facility] Screen - STAT [id number] 22:56:00* Test Item Value Reference Range Interpretation Comme nts ABO & RH (test code = 20) A POSITIVE IAT (test code = 1185) Negative [facility] HEALTH - [id number] 17:24:19Ordered by an unspecified provider.[facility] GLUCOSE (AUTOMATED)2024-03-03 06:02:22* Test Item Value Reference Range Interpretation Comme nts POCT GLU (test code = 5406481595) 120 mg/dL 70-110 H Lab Interpretation (test cod e = 82842-7) Abnormal [facility] HEAD WO [id number] 05:47:04Exam: CT Head Without Contrast, 03/02/2024 11:45 [...] significant mastoidair cell opacification. Visualized orbits are unremarkable.[facility] HospitalTRAN[facility]ABIL[facility] HOSPITALNIN [id number] 05:18:52* Test Item Value Reference Range Interpretation Comme nts TROPONIN I (test code = 0257264403) 0.002 ng/mL <=0.034 ROLANDO (test code = [...] of biotin. Lab Interpretation (test code = 43603-0) Normal [facility] (NA, K, CL, CO2, GLUCOSE, BUN, CREATININE, CA)2024-03-03 05:06:47* Test Item Value Reference Range Interpretation Comme nts NA (test code = 4421997345) 137 mmol/L 135-145 K (test code = 2285430456) 3.8 mmol/L 3.5-5.0 CL (test code = 1254331508) 105 mmol/L 98-108 CO2 TOTAL (test code = 3941587953) 23 mmol/L 23-31 AGAP (test code = 3714792061) 9 2-16 BUN (test code = 6013718981) 18 mg/dL 7-23 GLUCOSE (test code = 3198262872) 135 mg/dL 70-110 H CREATININE (test code = 2160-0) 0.64 mg/dL 0.60-1.25 CALCIUM (test code = 0456703890) 9.3 mg/dL 8.6-10.6 eGFR (test code = 03619-1) 104.4 mL/min/1.73m2 CKD-EPI eGFR (2020). Assuming creatinine has been stable day-to-day for at least three months, the eGFR indicates Category G1 (>= 90 mL/min/1.73 m2) Lab Interpretation (test code = 35824-0) Abnormal [facility] WITH [id number] 04:57:27* Test Item Value Reference Range Interpretation [...] 34.6 g/dL 31.2-35.0 RDW-SD (test code = 25622-1) 40.2 fL 38.5-51.6 RDW-CV (test code = 788-0) 12.2 % 12.1-15.4 PLT (test code = 777-3) 333 150-328 H MPV (test code = 61235-8) 10.0 fL 9.8-13.0 NRBC/100 WBC (test code = 3824173451) 0.0 0.0-10.0 NRBC x10^3 (test code = 4480668015) See_Comment [Automated eXpressoa ge] The system which generated this result transmitted reference range: 10*3/?L. The reference range was not used to interpret this result as normal/abnormal. GRAN MAT (NEUT) % (test code = 770-8) 53.1 % IMM GRAN % (test code = 7929086202) 0.30 % LYMPH % (test code = 736-9) 33.6 % MONO % (test code = 5905-5) 9.8 % EOS % (test code = 713-8) 2.3 % BASO % (test code = 706-2) 0.9 % GRAN MAT x10^3(ANC) (test code = 0605387443) 3.97 10*3/uL 1.99-6.95 IMM GRAN x10^3 (test code = 8485230865) 0.00-0.06 LYMPH x10^3 (test code = 731-0) 2.51 10*3/uL 1.09-3.23 MONO x10^3 (test code = 742-7) 0.73 10*3/uL 0.36-1.02 EOS x10^3 (test code = 711-2) 0.17 10*3/uL 0.06-0.53 BASO x10^3 (test code = 704-7) 0.07 10*3/uL 0.01-0.09 Lab Interpretation (test code = 69414-3) [facility]normal [facility])2024-03-03 04:16:06* Test Item Value Reference Range Interpretation Comme nts POCT GLU (test code = 5711868410) 123 mg/dL 70-110 H Lab Interpretation (test cod e = 50072-5) Abnormal [facility] HospitalDME/SUPPLY [id number] 17:07:53 Ordered by an unspecified provider.[facility] Consult Notes Date/Time Note Provider Source 2025-02-13 11:53:10 Associated Order(s): CONSULT PS PASTORAL CARE Visit Encounter: The Inside Account Representative visited the patient at bedside. Procedure toady requested prayer. Anabaptist: Anabaptist Spiritual Assessment: Patient Encounter: Alert and comfortable, seated upright in bed Patient was polite and receptive to the Inside Account Representative's presence. Visitors present: No Room setting: Well-lit, shades opened / lights turned on. Spiritual Intervention: Explored patient's spiritual, emotional and psychosocial needs Created safe space for patient to share Life Review Ministry of Listening with Empathy [facility] Meditative Prayer/[place] Validated feelings where appropriate Outcome: Requested prayer for healing, peace, comfort and renewed strength to endure multiple health and personal challenges. Patient openly shared information about health, life story, and expressed concerns Patient expressed desire for renewed spiritual strength and comfort Patient appeared receptive to spiritual support and indicated he/she was comforted by the intake clerk's visit. Patient thanked the intake clerk for the prayer and visit Plan of Care: Spiritual, emotional and psychosocial care will be available when the patient has a need. Pastoral Care Follow-Up: As Needed Rev. Stacie Oshea Inside Account Representative 1 [facility] Department of Pastoral Care Office: [phone] Stacie Rodriguez [facility] 2025-02-06 14:07:45 Associated Order(s): CONSULT CARDIOLOGY Plz see office note [facility] 2024-07-09 16:39:02 Associated Order(s): CONSULT CARDIOLOGY [...] meds. PCI to one vessel 2005 in [place] followed by CABG in [place]. PMH: has a past medical history of [...] for arrhythmia -Outpatient follow up w his [facility] Fink for ischemic workup -Can be referred to structural heart clinic on discharge for PFO -GDMT adjustment outpatient Cardiology will sign off. Discussed w Dr Sg Sevilla MD, NADIA Media Sales Representative, PGY 4 Associated attestation - Valerie Garza MD - 07/10/2024 9:00 AM CDT I personally examined the patient on 07/09/[address] Sevilla's note. I actively participated in the decision-making process. Please see the fellow's note for additional details. Valerie Ospina MD Cardiology Faculty IM-CARDIOVASCULAR DISEASE STAFF [facility] 2024-07-08 16:51:00 Associated Order(s): CONSULT ADULT [...] Right 03/22/2024 Surgeon: Ron Hoover MD; Location: [facility] OR [facility] CORONARY ARTERY BYPASS GRAFT CRANIOTOMY Prior Living Situation: lives alone, resides at a religious DME: Four wheeled walker with seat Prior level of Mobility: community ambulation, house hold ambulation Suspected ischemic or hemorraghic stroke:Yes, Pre-Stroke Modified [place] Score: 2 - Slight disability; unable to [...] before and after session COMMUNICATION Primary Language: Georgian Able to Verbalize needs: Yes Vision:good; no [...] provided. Kathrine Garcia PT, DPT Pager Number: [phone] Total time treatments: 12 min Total treatment time: 24 min [facility] 2024-07-08 12:27:39 Associated Order(s): CONSULT COLOR MIXER-ADULT Please see previous SFA note, Thank you, Xenia Castanon RN Chorus Master, Care Management Department The [address] [address] P: [phone] F: [phone] E: [email or web address] [facility] 2024-07-08 09:02:35 Associated Order(s): CONSULT/REFERRAL NEUROLOGY; CONSULT NEUROLOGY [facility] NEUROLOGY CONSULT NOTE Reason for Consult: [...] Right 03/22/2024 Surgeon: Ron Hoover MD; Location: [facility] CORONARY ARTERY BYPASS GRAFT CRANIOTOMY FAMILY [...] glucagon, 1 mg, PRN labetaloL, 10 mg, [id number] ALLERGY Allergies Allergen Reactions Jardiance [Empagliflozin] Unknown [...] process. I agree with note as written [facility] - Health History and Physical Notes Date/Time [...] Gee MD Cardiovascular Disease Fellow, PGY-6 Pager: [phone] Cosigned by Riley Granados MD at 02/13/2025 3:23 PM CDT Associated attestation - Riley Granados MD - 02/13/2025 3:23 PM CDT I agree. CARDIOVASCULAR DISEASE [facility] 2025-02-12 19:36:59 Images from the original [...] anxiety who presents as a transfer from OSH ED for NSTEMI eval. Patient stated he [...] the pain. Recommended to be admitted to [facility] for ischemic eval. Patient was admitted, and [...] to be elevated, so recommended transfer to [facility] for LHC. 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 PHYSICAL EXAMINATION Vitals: 02/12/25 1938 BP: (!) 160/83 Pulse: 87 Resp: 19 [...] 5 mg with Zetia. - Admit to [facility] for ischemic eval - Trend troponin q6h [...] results to the patient. Ariadne Lassiter MD Supervisor [place] Department of Internal Medicine Division of Cardiovascular Disease [facility] 2025-02-06 18:00:14 Medicine History & Physical Date of Service: 02/06/2025 Pt presents from: [facility] office CC: Chest pain History of Present Illness: Maximus Sheehan is a 69 year old male with past md hx including coronary disease, history of stroke, diabetes, hypertension, hyperlipidemia and peripheral vascular disease that presents to the hospital for chest pain. Patient seen at outside first breaker feeder office this morning complaining of chest pain. [...] Patient Position: Sitting Pulse: 71 Resp: 10 19 12 16 Temp: 36.4 ?C (97.6 ?F) [...] with obstipation. Preliminary Report Dictated by Resident: Marianna Lai I, Evsin Devries MD., have reviewed this study and agree with the above report. Assessment and plan: Principal Problem: Chest pain Atypical chest pain: -Troponin cycled - Follow-up cardiac echo -Aspirin started - Continue telemetry - Cardiology consult Diabetes: - Start insulin/scale As noted above patient left AMA before full plan and assessment could not be completed DVT prophylaxis: Lovenox [place] CLINICAL PROGRAMMER was verified Disposition: Patient leaving AMA T [facility] Baifendian 2024-12-28 08:17:59 COLORECTAL SURGERY HISTORY AND PHYSICAL [...] cholecalciferol (vitamin D3) 1,000 Units, Oral coenzyme [id number] E 100-5 mg-unit capsule Oral insulin glargine [...] Right 03/22/2024 Surgeon: Ron Hoover MD; Location: [facility]ATION CORONARY ARTERY BYPASS GRAFT CRANIOTOMY LASER ENUCLEATION OF PROSTATE N/A 08/25/2024 Surgeon: Lynn Doll MD; Location: [facility] OR LOCATION Family History Problem [...] 12/28/2024 8:22 AM Colon and Rectal Surgery [facility] 2024-08-25 07:38:40 UROLOGY HISTORY AND PHYSICAL [...] Right 03/22/2024 Surgeon: Ron Hoover MD; Location: [facility] CORONARY ARTERY BYPASS GRAFT CRANIOTOMY Family [...] Friends and Family: Not on file Attends [employer]: Not on file Active Member of [...] no bruising Laboratory: Hemogram Recent Labs 05/31/24 11307/07/24171308/23/24 11508/24/24214008/25/24 0426 WBC 5.55 7.55 14.06* 11.24* 9.30 HGB 15.5 15.1 15.3 13.6 13.7 HCT 45.6 43.7 46.0 39.1 39.7 PLT 305 267 301 296 310 Chemistry Recent Labs 05/31/24 1139 07/07/24171308/23/24 1150 08/24/24214008/25/24 0426 NA 139 140 134* [...] failure, stones recurrent infection, and need for mcc catheter) CIC, surgical options: TURP, ThuLVP to alleviate the obstruction and attempt improve LUTS and avoid risk of complications from mcc HERRON. Possible adverse events recognized with TURP [...] abx next 24 hrs Lynn Doll MD [facility] 2024-08-24 23:51:33 Medicine History & Physical [...] MEALS+HS, Jhony Madden MD, 1 Units at 08/24/24 2104 Objective: Vitals: Vitals: 08/24/24 1947 08/24/24 2309 BP: (!) 151/90 105/60 Pulse: 95 92 Resp: 15 18 Temp: 36.9 ?C (98.5 ?F) 37.1 ?C (98.8 ?F) TempSrc: Temporal Artery SpO2: 98% 95% Weight: 70.5 kg (155 lb 6.4 oz) I/O's: No intake or output data in the 24 hours ending 08/24/24 0061 Physical Exam: General: NAD, Alert, lying in [...] of comfort: N/A Code Status: Full [place] CLINICAL PROGRAMMER was verified Disposition: Admit for IV ABX, plan OR in AM [facility] EMERGENCY PHYSICIAN STAFF [facility] 2024-07-07 16:49:31 XpertMD History & Physical DATE: 07/07/2024 SERVICE: Internal Medicine CHIEF COMPLAINT: Dizziness HISTORY OF PRESENT ILLNESS Maximus Sheehan is a 68 year old male with history of subdural hematoma status postcraniotomy in 2021 complicated by stroke in the past now sent over to [facility] ED from neurology clinic with worsening [...] Right 03/22/2024 Surgeon: Ron Hoover MD; Location: [facility] OR [facility] CORONARY ARTERY BYPASS GRAFT CRANIOTOMY PAST [...] care Anita Arroyo DO FM-ADULT MEDICINE STAFF [facility] 2024-03-22 06:11:17 Interval H&P Chief complaint: [...] questions were answered. Physical exam Vitals: 03/22/24 0528 BP: (!) 143/74 Pulse: 75 Resp: 18 [...] hemorrhage. He was treated initially in the [facility] and then was apparently transferred to [place] for further care. He reports that testing [...] endarterectomy in the near near future at [place]. CAROLYN-S[facility] - Health Procedure Notes Date/Time Note Provider Source 2025-02-13 15:23:06 Left Heart Cath/Coronary Angiography/SVG and BURKETT angiogram/PCI of the SVG to OM1 with 3.5x16 Synergy LEANDRA Maximus Aguila 3:24 PM Attending faculty: Riley Granados MD [...] SOB/CP for past 2 weeks, admitted to [facility] 02/12/25 for Unstable angina. . Consent: Risks, benefits, alternatives and complications of the procedure discussed with the self, who understood and agreed to proceed. Aseptic technique: Chlorprep Local Anesthesia: 1% lidocaine without epinephrine Sedation: Moderate Access site: Arterial: Right femoral artery 4Fr and then upgraded to 6Fr Closure Method: Arterial: R REAL ESTATE AGENT/BROKER 6Fr manual compression Sterile dressing: yes Complications: none Procedures: After patient identification/verification, the patient was thereafter transferred to the cathode washer table. The access site was prepped and [...] the SVg to OM, then 3x12 NC AEROSPACE MEDICINE PHYSICIAN then 3.5x16 Synergy LEANDRA to the Svg to OM, r REAL ESTATE AGENT/BROKER sutured into place (heparin, brilinta load aggrastat load only) The attending physician was present throughout the procedure and provided the highest level of supervision. Findings: Coronary dominance: right Left main: diffuse 50% LAD: pLAD 50%, mLAD 100% SINGLE POINTED OPERATOR, D1 medium size 60%, S1 medium size 90% LCX: pLCx 100% SINGLE POINTED OPERATOR with microchannel RCA: dominant vessel severe [...] recovering from sedation. Complications: none Impression/plan: -Severe kake CAD with mLAD SINGLE POINTED OPERATOR, pLCx SINGLE POINTED OPERATOR, severe mRCA stenosis, severe RPLB stenosis. -Patent BURKETT to LAD with severe kake dLAD stenosis, severe SVG to OM1 stenosis (likely cause of unstable angina), patent SVG to RPLB. -PCI of the SVG to Om1 done with Synergy LEANDRA. Recommend staged PCI of the BURKETT to mLAD (kake dLAD PCI through BURKETT). May consider FFR guided PCI of the mRCA. -Aggressive medical rx for CAD. Aspirin 81 mg once daily for life. Brilinta 180 mg oral given in cathode washer, continue brilinta 90 mg bid for at least 12 months. -Aggrastat bolus only during PCI. -d/w pt in detail, all questions answered. F/u with Dr Fink as planned. PLAN STAGED PCI. Start cardiac rehab after the staged PCI is done. Riley Granados MD 02/13/2025 3:24 PM IM-INTERVENTIONAL CARDIOLOGY STAFF [facility] 2024-08-25 07:44:28 Full Operative Note Patient name: Maximus Sheehan Number: [id number] Date of operation: 08/24/2024 - 08/25/2024 Faculty surgeon: Lynn Doll Pre-operative diagnosis: BPH with LUTS, chronic urine retention , CIC , hematuria, bacterial colonization.. CT prostate volume 110 cc Post-operative diagnosis: BPH with LUTS Operation performed: Transurethral Laser Enucleation of the Prostate (CPT - 51819) Findings: Normal urethra and bladder mucosa. No [...] Thursday08/26/2024 at 4 AM Lynn Doll MD [facility] - Health Notes Date/Time Note Provider Source 2025-07-17 09:45:00 Images from the original note were not included. Venipuncture collection performed by clean technique on the left anticubitus. Total of 1 attempts were made. Slight pressure and a bandage/dressing were applied to the site(s). The patient experienced no complications. The following specimens were processed according to instructions and sent to [facility] laboratories per lab order on 07/17/2025 : LT BLUE 1 SST 1 RED LAV 2 PPT DK GREEN (LiHep) DK GREEN (SodH) MENON DK BLUE (K2) DK BLUE (S) ACD Blood Culture NIPT/NTD [facility] 2025-07-13 09:48:01 Lab orders in Madie Dye LVN [facility] 2025-07-12 14:05:16 Called patient to schedule PCI Grafts procedure with Dr. Davison. Patient agreed to 08/02. Labs will be completed 07/17. Sara Wilson [facility] 2025-07-10 13:17:36 Spoke with patient. Advised him to continue Entresto half tablet twice daily like he has been taking. Patient verbalized understanding and has no further questions. Sarah Guerra RN [facility] 2025-07-10 12:50:05 Attempted to contact patient. 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 Per KARINA with Dr. Fink 05/25/2025, "Dizziness-advised to avoid caffeine. Reduced Entresto to half tablet twice a day. Compression stockings. Safety precautions. Stop Imdur." [facility] 2025-07-10 11:05:13 Copied from [facility] #[id number]. Topic: Clinical - Medical Advice >> Jul 10, 2025 11:01 AM Patient Screen And Cyclone Repairer wrote: Maximus Sheehan Pt says his pharmacy told him there was a new script for ENTRESTO available for pickup. He wants to know if this is a med he needs to keep taking. He said him and Dr Fink has discussed him getting off some meds do to his dizziness Please advise Rupali Lima [facility] 2025-07-04 08:05:23 Images from the original note were not included. Results received from [facility]' scanned in folder and placed in provider basket for review. Lynne Roach [facility] 2025-07-02 13:30:57 Reviewed. [facility] 2025-07-02 12:46:38 Please review. [employer] updated. Mena Leach LVN [facility] 2025-07-02 11:45:58 Images from the original note were not included. Shantell Marie [facility] 2025-06-19 11:17:09 Prescription sent. T [facility] 2025-06-19 10:58:33 Images from the original note were not included. Lynne Christiansen [facility] 2025-06-19 10:56:23 Pt called back and states he needs [place] for insulin injections Cali Mata [facility] 2025-06-19 10:41:18 Attempted to contact patient for clarification. Is patient needing lancets to check his blood sugar, or needles for insulin injections. [facility] 2025-06-19 10:34:13 Copied from [facility] #[id number]. Topic: Clinical - Order >> Jun 19, 2025 10:32 AM Patient Screen And Cyclone Repairer wrote: Maximus Sheehan (69 year old male) is calling to request refill(s) for Pen needles. Patient called stating he has 34 days of pen needles left and is requesting an [facility] Please send medication(s) to: [facility]/pharmacy #[id number] AT [address] [address] Thank you! Moira Vallecillo [facility] 2025-06-16 12:40:31 Images from the original note were not included. Requested Renewals dulaglutide (TRULICITY) 1.5 mg/0.5 mL PnIj Sig: Inject 1 pen under the skin weekly. Disp: Not specified Refills: Start: 06/16/2025 Class: eRX Non-formulary Last ordered: 9 months ago (08/29/2024) by Bartley Doctor Unassigned Endocrinology: Diabetes - Insulins [id number]/16/2025 11:47 AM Protocol Details Manual review: Staff refilling for [facility], Cr lab not required to refill Cr in normal range and within 360 days Valid encounter within last 12 months HBA1C within 180 days To be filled at: [id number] [place], [place] - [address] KARINA 02-21-2024 NOV 07-24-2025 Marianela Calderon MA [facility] 2025-06-16 11:50:20 Images from the original note were not included. Lynne Christiansen [facility] 2025-05-08 17:03:32 1. Coronary artery disease of bypass graft of kake heart with stable angina pectoris Crestor denied - atorvastatin 20 mg tablet; Take 1 tablet by mouth at bedtime. Dispense: 90 tablet; Refill: 0 [facility] 2025-04-20 16:34:34 Images from the original note were not included. Refill request refilled per ambulatory refill guidelines. Notes: rosuvastatin 5 mg CpSP Sig: Take 5 mg by mouth every evening. Disp: 90 capsule Refills: 1 Start: 04/20/2025 Class: eRX Non-formulary For: Coronary artery disease of bypass graft of kake heart with stable angina pectoris Last ordered: 5 months ago (11/21/2024) by Marcel Toth MD Cardiovascular: Antilipid - HMG-CoA Reductase Inhibitors Kealyb1304/20/2025 04:18 PM Protocol Details Valid encounter within last 12 months Total Cholesterol within 360 days LDL within 360 days HDL within 360 days Triglycerides within 360 days AST in normal range and within 360 days ALT in normal range and within 360 days [facility] be [facility] at: [id number], [place], [place] - [address] Last Refilled: 01/2025 Recent Visits Date Type Provider Dept 04/19/25 Office Visit Marcel Toth MD [facility] 02/20/25 Office Visit Marcel Toth MD [facility] 02/06/25 Office Visit Marcel Toth MD [facility] 11/07/24 Office Visit Marcel Toth MD [facility] 08/29/24 Office Visit Marcel Toth MD [facility] 08/23/24 Office Visit Marcel Toth MD [facility] 07/25/24 Office Visit Marcel Toth MD [facility] 06/13/24 Office Visit Marcel Toth MD [facility] 05/26/24 Office Visit Marcel Toth MD [facility] 05/26/24 Office Visit Marcel Toth MD [facility] Showing recent visits within past 540 days with a meds authorizing provider and meeting all other requirements Future Appointments Date Type Provider Dept 07/24/25 Appointment Marcel Toth MD [facility] Showing future appointments within next 150 days with a meds authorizing provider and meeting all other requirements Pat Garcia MA [facility] 2025-04-18 14:54:20 Called and spoke with patient to offer a f/u appt. Per patient he did not have a good experience and did not want an appt. Apologized and ended the call. Madie Dye LVN [facility] 2025-04-11 08:36:00 Please make an appt with Dr. Granados. I have met him and reassured him already. [facility] 2025-04-11 08:30:09 Please give the option for the pt to f/u with me or Dr Fink in clinic so I can discuss with him the options of care and how ti improve his experience with heart cath that is needed. IM-INTERVENTIONAL CARDIOLOGY STAFF [facility] 2025-04-03 09:51:[address] Granados. Madie Dye LVN [facility] 2025-04-03 09:08:23 Pt does not want to have the procedure done. He states he is still sick. he said that he had a cath done at [facility] and it was horrible. Does not want to ever get a heart procedure done in the [facility]. He has left cancelling the procedure several times. Romario Marques [facility] 2025-03-30 12:53:30 Problem: Skin integrity Impaired [...] Outcome: Progressing as expected Karla Ferrera RN [facility] 2025-03-30 05:43:37 Problem: Skin integrity Impaired (Risk or Actual) Goal: Prevention of new skin breakdown Outcome: Progressing as expected ANT Tito Lopez RN [facility] 2025-03-29 16:25:08 Problem: Skin integrity Impaired [...] Outcome: Progressing as expected Gail Burns RN [facility] 2025-03-29 03:50:53 Problem: Skin integrity Impaired (Risk or Actual) Goal: Prevention of new skin breakdown 03/29/2025349 by Tito Lopez RN Outcome: Progressing as expected 03/28/20251941 by Tito Lopez RN Outcome: Progressing as expected [facility] 2025-03-28 19:42:24 Problem: Skin integrity Impaired (Risk or Actual) Goal: Prevention of new skin breakdown 03/28/20251941 by Tito Lopez RN Outcome: Progressing as expected 03/28/2025 06 by Tito Lopez RN Outcome: Progressing as expected [facility] 2025-03-28 10:35:20 Problem: Skin integrity Impaired (Risk [...] within specified parameters Outcome: Progressing as expected T Cristina Leach RN [facility] 2025-03-28 06:20:09 Problem: Skin integrity Impaired (Risk or Actual) Goal: Prevention of new skin breakdown Outcome: Progressing as expected [facility] 2025-03-27 13:17:07 Spoke with patient and informed him of Dr. Fink's note. Patient states that he has restless leg syndrome and the doctor wouldn't give him anything for it and told him "to stop moving." Patient states "I guess I won't get it done" and ended the call. Sarah Guerra RN [facility] 2025-03-27 12:26:22 Maximus Sheehan is a 69 year old male Patient returning nurse call, please advise. Lynn Gaston [facility] 2025-03-27 12:16:04 I reviewed records and I agree with procedures. [facility] 2025-03-27 11:49:14 Attempted to call patient back. No answer, left voicemail advising patient to call back if he is still having concerns. Patient currently admitted in [place]. Routing to Dr. Fink as FYI [facility] 2025-03-27 09:59:51 Problem: Skin integrity Impaired [...] Outcome: Progressing as expected Sandip Means RN [facility] 2025-03-27 08:06:12 Maximus Sheehan is a 69 year old male calling, stated he is currently admitted at [facility] and they want to perform a surgery. Patient requesting MD Fink to call surgeon today or he won't be doing it. [phone] Yarely Fontana [facility] 2025-03-27 05:47:10 Problem: Skin integrity Impaired (Risk or Actual) Goal: Prevention of new skin breakdown 03/27/2025546 by Pat Matta RN Outcome: Progressing as expected 03/27/2025545 by Pat Matta RN Outcome: Progressing as expected Problem: Falls, Risk of Goal: Absence of falls 03/27/2025546 by Pat Matta, RN Outcome: Progressing as expected 03/27/2025545 by Pat Matta RN Outcome: Progressing as expected Problem: Bleeding, Risk of Goal: Absence of impaired coagulation signs and symptoms 03/27/2025546 by Pat Matta, KERRY Outcome: Progressing as expected 03/27/2025545 by Pat Matta RN Outcome: Progressing as expected Goal: Absence of active bleeding 03/27/2025546 by Pat Matta, KERRY Outcome: Progressing as expected 03/27/2025545 by Pat Matta RN Outcome: Progressing as expected Problem: Cardiac Output - Decreased Goal: Absence of signs and symptoms of decreased cardiac output 03/27/2025546 by Pat Matta, KERRY Outcome: Progressing as expected 03/27/2025545 by Pat Matta RN Outcome: Progressing as expected Problem: Pain Goal: Control of pain at or below patient's documented comfort goal 03/27/2025546 by Pat Matta, KERRY Outcome: Progressing as expected 03/27/2025545 by Pat Matta, RN Outcome: Progressing as expected Goal: Reduction in pain sensation 03/27/2025546 by Pat Matta, RN Outcome: Progressing as expected 03/27/2025545 by Pat Matta RN Outcome: Progressing as expected Problem: Tissue Perfusion, Cardiopulmonary - Altered Goal: Circulatory function within specified parameters 03/27/2025546 by Pat Matta, KERRY Outcome: Progressing as expected 03/27/2025545 by Pat Matta, RN Outcome: Progressing as expected [facility] 2025-03-24 11:21:04 Elaine with [facility] Pharm[facility] is calling to request refill of Metformin for Maximus Sheehan is a 69 year old male T [facility] 2025-03-24 11:11:07 Maximus Sheehan is a 69 year old male requests future refills of Metformin to be for 90 day supply as opposed to 45 day supply Please advise [phone] (home) [facility]/pharmacy #[id number] - [place], [place] - [address] [place] [address] [address] T [facility] 2025-03-22 07:58:57 Pharmacy requesting a 90 day supply. T [facility] 2025-03-13 14:53:48 Contacted patient and advise the [...] 04-19-2025 at 1 pm. Marianela Calderon MA [facility] 2025-03-13 14:23:44 Patient on rosuvastatin and ezetimibe Recent Labs 02/06/25 1205 CHOL 166 LDL 103 HDL 51 TRIG 61 Can increase the rosuvastatin dose 3rd medication for cholesterol, not needed to minimize risk for polypharmacy [facility] 2025-03-13 11:17:04 Ordering provider Natanael Burkett. Please send medication Evolocumab to pharmacy to complete PA by ordering provider, unable to complete PA if ordering provider is not within our department. Routing to provider to send medication. Marianela Calderon MA [facility] 2025-03-13 10:49:41 Maryellen Romero is calling to complete PA Repatha 140 mg Clinical question, and form has been faxed to be filled out [phone] Ref [id number] Lu Burleson [facility] 2025-02-22 16:33:[address] Fink to send rx for Ntg to pt pharmacy. Rx sent Katiuska Mott RN [facility] 2025-02-22 16:11:14 Maximus Sheehan is a 69 year old male Pt called to check on the prescription for Nitro that Dr Fink said he could send in for the pt today at . Pt states he is having a difficult time, if this could be sent today. [id number] [place], [place] - [address] [place] [address] AT [facility] Lynda Finley [facility] 2025-02-20 17:24:33 Pt notified. Michelle Rust RN [facility] 2025-02-20 16:06:31 Refill sent [facility] 2025-02-20 13:54:40 Pt requesting that rx for tamsulosin be updated to indicate that he is taking it bid. Please advise. Michelle Rust RN [facility] 2025-02-20 13:20:04 Pt came in requesting a refill on Tamsulosin, asked that it can be changed to 2 capsules per day per Dr Doll. Lou Bhatti [facility] 2025-02-16 16:52:20 Lab orders in. [facility] 2025-02-16 16:11:40 Called patient to schedule PCI-Atherectomy w Stent. Patient agreed to have procedure on 04/10/25 - Labs 04/07/25. Fanny Frazier [facility] 2025-02-15 16:50:10 Spoke with patient and instructions given. Verbalized understanding and agreed. Madie Dye LVN [facility] 2025-02-15 10:54:21 Maximus Sheehan is a 69 year old male Pt is calling for instructions on the aftercare on pts site where they did the cath procedure at. Please advise. Piedad Murdock [facility] 2025-02-14 16:30:01 Images from the original note were not included. CARE MANAGEMENT Care Coordinators/Social Workers/CM Specialists/Utilization Review/Patient Placement & Transfer Center 02/14/2025 4:30 PM Care Management Discharge Disposition Note (DCDN) 5-2-1 Interventions: Disease specific education, Teach back, Follow-up phone calls, Follow-up appointments, Clear discharge plan 5-2-1 Providers: Physician, Tractor Mechanic/Machine Tool Mechanic 5-2-1 Patient Capacity Improvements: Avoidance of adverse events/readmission Discussed with patient/patient s family involved in decision making: Patient or family caregiver understands, and agrees with discharge plan Patient's family or support contact: Omar Sheehan (sibling) [phone] Discharge Plan for ongoing care and services: Home/Caregiver Home Discharge Location: Discharge Disposition (for note) - 02/13/25 1357 Home/[place] [address] Is this an ACO Patient? No Other Living arrangements: [place] [address] Transportation: Private Vehicle (Dwayne Stoll, friend [phone]) Discharge Medications Will the patient be able to obtain his medications? Yes Does the patient have transportation to to obtain the prescription medications? Yes ([facility]) Expected discharge date: 02/14/25 Time: 1630 Name [...] patient progress toward goals. Elham Gupta RN [facility] 2025-02-14 12:50:53 Problem: Falls, Risk of [...] RN Outcome: Resolved 02/14/2025 1027 by Keyonna Pahm RN Outcome: Progressing as expected Keyonna Pham RN [facility] 2025-02-14 10:27:35 Problem: Falls, Risk of [...] new skin breakdown Outcome: Progressing as expected T [facility] 2025-02-13 23:44:27 Problem: Falls, Risk of [...] Outcome: Progressing as expected Eric Christian RN [facility] 2025-02-13 17:30:19 Problem: Falls, Risk of [...] Outcome: Progressing as expected Gail Burns RN [facility] 2025-02-13 17:03:28 Patient to floor with RN. Sheath to right groin c/d/I. Krista Aleman RN [facility] 2025-02-13 05:51:18 Problem: Falls, Risk of [...] within specified parameters Outcome: Progressing as expected [facility] 2025-02-06 16:32:01 Summary: AMA Went in [...] I am going home." Karuna Jones RN [facility] 2025-02-06 15:50:50 Problem: Discharge Planning Goal: [...] Absence of falls Outcome: Progressing as expected [facility] 2025-02-06 09:40:00 Addended by: ALLYSON FINK MD on: 02/07/2025 07:46 AM Modules accepted: Orders T [facility] 2025-02-01 08:34:19 Content Savvy message has been sent. Jose Ramos RN [facility] 2025-01-31 23:33:35 1. Type 2 diabetes mellitus without complication, with long-term current use of insulin Hypoglycemic protocol - insulin lispro (HUMALOG KWIKPEN INSULIN) 100 unit/mL pen injector; inject 5 Units under the skin in the morning and 5 Units at noon and 5 Units in the evening. inject before meals. Dispense: 3 mL; Refill: 3 T [facility] 2025-01-31 16:25:[address] Doll, pt can increase flomax to bid-may have dizzines. Pt may increase CIC to tid. Appt given for next week with Dr Doll. Michelle Rust RN [facility] 2025-01-31 15:59:10 RTC next week , ok to OB T [facility] 2025-01-31 15:49:53 Pt had to leave appointment today before being seen. He is requesting to increase flomax to bid. Please advise. PVR in office today 187. T [facility] 2025-01-31 13:43:15 Pt was seen in the clinic today and had to leave due to his transportation and has questions about his medication Flomax. Please Assist Joe Mir [facility] 2025-01-31 12:21:40 Routing request to provider to send: insulin lispro, human, (HUMALOG U-100 INSULIN) 100 unit/mL injection In "Pen Form". Jose Ramos RN [facility] 2025-01-31 12:05:31 Maximus Sheehan is a 69 year old male Pt is requesting to speak with a nurse regarding the insulin prescription. Pt only wants the pen version and only has 1 pen left. Elaine Pereira [facility] 2025-01-31 11:46:33 Johanna with [facility] pharmacy called and states that pt informed her that he only gets the pen injections, not the vial. She is requesting a prescription for the pen injection. Please advise. insulin lispro, human, (HUMALOG U-100 INSULIN) 100 unit/mL injection Janie Hardwick [facility] 2025-01-31 08:49:31 Faxed 01/30/25, confirmation received Jazmin Jones MA 01/31/2025 8:50 AM [facility] 2025-01-27 16:03:36 Form placed in provider folder for signature. Jose Ramos RN [facility] 2025-01-26 16:10:19 Addended by: JOSE FINLEY V on: 01/26/2025 04:10 PM Modules accepted: Orders Jose Ramos RN [facility] 2025-01-26 14:30:08 Images from the original note were not included. Cynthia Walker [facility] 2025-01-26 08:55:18 1. Multiple falls - Walker (ULTRA-LIGHT ROLLATOR) [facility]; R55/W19.XXXS/M79.604/R06.02/I5 0.32/I51.7/E11.3511: Use daily for ambulation/fall precaution (brand pending insurance approval) Dispense: 1 Each; Refill: 0 2. Balance problem - Walker (ULTRA-LIGHT ROLLATOR) [facility]; R55/W19.XXXS/M79.604/R06.02/I5 0.32/I51.7/E11.3511: Use daily for ambulation/fall precaution (brand pending insurance approval) Dispense: 1 Each; Refill: 0 3. Dependent on walker for ambulation - Walker (ULTRA-LIGHT ROLLATOR) [facility]; R55/W19.XXXS/M79.604/R06.02/I5 0.32/I51.7/E11.3511: Use daily for ambulation/fall precaution (brand pending insurance approval) Dispense: 1 Each; Refill: 0 faxed to [phone] Dayron [facility] 2025-01-23 11:33:24 Called pt in regards to colonoscopy results. Pt confirmed name and . Pt verbalizes understanding of results. Ashley Casas MA [facility] 2025-01-15 13:38:23 1. Type 2 diabetes mellitus without complication, with long-term current use of insulin - flash glucose scanning reader (FREESTYLE JOSE 14 DAY READER) Misc; Take 1 Box in the morning and 1 Box in the evening. E11.65: check home blood glucose BID (brand approval by insurance) Dispense: 1 Each; Refill: 11 [facility] 2024-12-28 11:16:[address] Doll and faxed back to [facility]. AL PROSTHETIST Michelle Rust RN [facility] 2024-12-27 11:04:51 [facility] calling to check on status on order form and record request. Please advise. AL PROSTHETIST Ana Maria Andrew [facility] 2024-12-26 13:21:09 Images from the original note were not included. Last OV:11/09/24 with Marcel Toth MD Last Refill:08/29/24 prescribed by [facility] Cardio Last Labs Pertaining to Med:11/07/24 Future Appt: Future Appointments Provider Department Dept Phone 12/29/2024 1:00 PM Allyson Fink MD [facility] [phone] 01/17/2025 4:00 PM Apurva Leonard PT [facility] Physical/Occupational Rehab, [place] [phone] 01/23/2025 4:15 PM Abigail Gomes MD [facility] [phone] 01/31/2025 10:15 AM Lynn Doll MD [facility] Urology, [place] [phone] 02/06/2025 8:20 AM Marcel Toth MD [facility] Adult & Geriatric Primary Care, [place] [phone] 08/08/2025 1:00 PM [facility] VASCULAR 1 [facility] Echocardiograph/Vascular Lab, [place] [phone] 08/24/2025 1:00 PM Ron Hoover MD [facility] Vascular Surgery, [place] [phone] Requested Renewals metFORMIN 500 mg tablet Sig: Take 1 tablet by mouth in the morning and 1 tablet in the evening. Take with meals. Disp: Not specified Refills: Start: 12/26/2024 Class: eRX Non-formulary Last ordered: 3 months ago (08/29/2024) by Bartley Doctor Unassigned Endocrinology: Diabetes - Biguanides Yozhab5212/26/2024 10:29 AM Protocol Details Valid encounter within last 12 months Cr is between 0 and 1.3 and within 360 days HBA1C within 180 days To be filled at: [facility]/pharmacy #[id number] AT [facility] 2024-12-22 13:45:34 Received forms from [facility] and they were placed into the nurses basket for review. Mir [facility] 2024-12-21 11:15:15 Called patient and discussed Dr Doll's recommendations with pt. Understanding verbalized and he agrees to continue with CIC. Rust RN [facility] 2024-12-21 09:44:14 Patient called and wanted to update medications, now taking tamsulosin. Added to profile and advised patient okay to take morning of procedure. [facility] Ketty Starks RN [facility] 2024-12-20 17:38:26 Tamsulosin is very unlikely to help in the setting of chronic urine retention and weak bladder I still recommend CIC to avoid complications I sent prescription RTC as scheduled [facility] 2024-12-20 13:31:24 Patient requesting for Flomax as it was recommended by a friend and would prefer not to use catheters. Please advise. Andrew [facility] 2024-12-19 17:20:40 Images from the original note were not included. Your upcoming procedure is at [facility] on 12/28/24. The address is [address] [place] [address], [id number].The nursing staff at [facility] will call you the workday before [...] voiced no further questions at this time. [facility] 2024-12-14 08:19:12 Spoke with patient and informed medication has been sent to pharmacy. AL PROSTHETIST Marianela Calderon MA [facility] 2024-12-13 19:19:17 1. 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 Dispense: 90 tablet; Refill: 2 2. HFrEF (heart failure with reduced ejection fraction) - metoprolol succinate XL 25 mg 24 hr tablet; Take 1 tablet by mouth in the morning. Dispense: 90 tablet; Refill: 2 [facility] 2024-12-13 12:57:05 Pt is following up on below phone encounter and send script chayito Telles in [place]. metoprolol succinate XL 25 mg 24 hr tablet AL PROSTHETIST Delores Flores [facility] 2024-12-13 11:45:09 Refill request for metoprolol received. Refill sent to pharmacy of choice. Patient is compliant as per [facility] Cardiology Protocol. AL PROSTHETIST Franklin Preston MA [facility] 2024-12-12 10:41:08 Per chart review Metoprolol has not been filled by our office, routing request to provider for review. Disp Refills Start End ROGER metoprolol succinate XL 25 mg 24 hr tablet -- -- 08/26/2024 -- -- Sig: Take 1 tablet by mouth every morning. Class: Historical Med Route: Oral Order: [id number] Date/Time Signed: 08/29/2024 14:46 Recent Visits Date Type Provider Dept 11/07/24 Office Visit Marcel Toth MD [facility] 08/29/24 Office Visit Marcel Toth MD [facility] 08/23/24 Office Visit Marcel Toth MD [facility] 07/25/24 Office Visit Marcel Toth MD [facility] 06/13/24 Office Visit Marcel Toth MD [facility] 05/26/24 Office Visit Marcel Toth MD [facility] 05/26/24 Office Visit Marcel Toth MD [facility] 03/29/24 Office Visit Pat Ochoa FNP [facility] 03/03/24 Office Visit Pat Ochoa FNP [facility] 02/25/24 Office Visit Pat Ochoa BINGO WORKER [facility] Showing recent visits within past 540 days with a meds authorizing provider and meeting all other requirements Future Appointments Date Type Provider Dept 02/06/25 Appointment Marcel Toth MD [facility] Showing future appointments within next 150 days with a meds authorizing provider and meeting all other requirements Ramos RN [facility] 2024-12-12 10:12:36 Maximus Sheehan is a 69 year old male Pt calling in stating he lost his med. PT req for 10 day supply to hold him over. metoprolol succinate XL 25 mg 24 hr tablet [facility] - [address] [76] AL PROSTHETIST Bebe Ochoa [facility] 2024-11-21 14:25:44 Images from the original note were not included. Requested Renewals rosuvastatin 5 mg CpSP Sig: Take 5 mg by mouth every evening. Disp: Not specified Refills: Start: 11/21/2024 Class: eRX Non-formulary Last ordered: 2 months ago (08/29/2024) by Bartley Doctor Unassigned Cardiovascular: Antilipid - HMG-CoA Reductase Inhibitors [id number]/21/2024 12:08 PM Protocol Details Valid encounter within last 12 months Total Cholesterol within 360 days LDL within 360 days HDL within 360 days Triglycerides within 360 days AST in normal range and within 360 days ALT in normal range and within 360 days To be filled at: [facility]/pharmacy #[id number] [place], [place] - [address] [place] [address] AT [facility] 11-07-2024 NOV 02-06-2025 Calderon MA [facility] 2024-11-16 18:13:57 Pt discharged with diagnosis of acute cystitis with hematuria, dysuria, and malaise. Printed and verbal instructions reviewed with and given to pt. Prescriptions given x 2. pt verbalized understanding of teaching and recommended follow-up. Denies questions or concerns at this time. Pt ambulatory at discharge. Appears in no apparent distress. No ataxia noted. Mccord RN [facility] 2024-11-16 14:14:42 Pt. Reports he noticed mild, light blood in urine since last night with mild burning, with dizziness & general malaise x2 days; pt. Reports hx of UTIs; pt. Reports having prostate sx on 08/25/24; denies diarrhea [facility] Nicki Jones RN [facility] 2024-11-11 13:48:43 moderate cardiac risk. Ok to hold aspirin if absolutely necessary. [facility] 2024-11-11 09:05:30 The following patient is scheduled for colonoscopy with TBD at [facility] Surgery Department. The procedure is currently [...] testing prior to having surgery Thank you, [facility] Surgery Clinic [facility] Dalia Sahu RN [facility] 2024-11-09 11:28:08 Called patient and informed Jazmin Jones MA 11/09/2024 11:28 AM [facility] 2024-11-09 10:56:37 1. Type 2 diabetes [...] Other (hyperglycemia). Dispense: 10 mL; Refill: 1 [facility] 2024-11-09 09:38:28 Routed to the provider to review and fill Jazmin Jones MA 11/09/2024 9:38 AM [facility] 2024-11-09 09:27:35 Patient is requesting a prescription of insulin glargine,hum.rec.anlog (LANTUS SOLOSTAR U-100 INSULIN SC). Patient is out and needs medication DAVID [facility] Reymundo Martell [facility] 2024-11-09 08:58:36 Images from the original [...] ROBYN Rollins Last refill: 05/23/2024 Rx #: [id number] Endocrinology: Diabetes - Insulins Ptmqho1411/09/2024 08:54 AM Protocol Details Manual review: Staff refilling for [facility], Cr lab not required to refill Valid encounter within last 12 months HBA1C within 180 days Cr in normal range and within 360 days To be filled at: [facility]/pharmacy #[id number] - [place], [place] - [address] Last office note: 11-07-2024 DM II [...] dizziness when BG is low or high. [facility] Marianela Calderon MA [facility] 2024-11-07 09:00:00 Images from the original note were not included. Venipuncture collection performed by clean technique on the right anticubitus. Total of 1 attempts were made. Slight pressure and a bandage/dressing were applied to the site(s). The patient experienced no complications. The following specimens were processed according to instructions and sent to [facility] laboratories per lab order on 11/07/2024: LT BLUE SST 1 RED LAV 2 PPT DK GREEN (LiHep) DK GREEN (SodH) MENON DK BLUE (K2) DK BLUE (S) ACD Blood Culture NIPT/NTD Patient has been identified by and name and was provided with cup, antiseptic towelette, and clean catch instructions. 1 urine specimen(s) sent. Unpreserved 1 Urine Culture Aptima tube Other urine [facility] 2024-10-11 11:16:26 Notes: Colon Screening - Chip Martines MD. Per ambulatory protocol referral has been sent. Recent Visits Date Type Provider Dept 08/29/24 Office Visit Marcel Toth MD [facility] Family Medicine 08/23/24 Office Visit Marcel Toth MD [facility] Family Medicine 07/25/24 Office Visit Marcel Toth MD [facility] Family Medicine 06/13/24 Office Visit Marcel Toth MD [facility] Family Medicine 05/26/24 Office Visit Marcel Toth MD [facility] Family Medicine 05/26/24 Office Visit Marcel Toth MD [facility] Family Medicine 03/29/24 Office Visit Pat Ochoa FNP [facility] Family Medicine 03/03/24 Office Visit Pat Ochoa FNP [facility] Family Medicine 02/25/24 Office Visit Pat Ochoa FNP [facility] Family [facility] 12/11/23 Office Visit Pat Ochoa FNP [facility] Family [facility] Showing recent visits within past 540 days with a meds authorizing provider and meeting all other requirements Future Appointments Date Type Provider Dept 11/07/24 Appointment Marcel Toth MD [facility] Showing future appointments within next 150 days with a meds authorizing provider and meeting all other requirements [facility] 2024-10-11 11:00:19 Pt is scheduled 10/28 and an auth referral is needed. Please Assist Mir [facility] 2024-10-07 17:27:16 Patient states that he [...] recommendations. KANIKA MORELAND RN 10/07/2024 5:39 PM AL PROSTHETIST Kanika Moreland RN [facility] 2024-10-06 11:11:38 Patient called and stated that he started having issues with urination, he stated that he is fine while he is sitting down, as soon as he gets up he starts leaking and has to go immediately to the bathroom. Patient has several questions and concerns please call to [phone]. 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 [facility] 2024-09-19 13:51:00 Called patient 09/20/24 10:00 Am Noted he doing well and just having challenges with the home health providers and challenges with the impaired adls. Noted he is taking oct and nov off. Having challenges with his chronic problems and his osorio Supportive counselling given Denies Si/Hi/AVH 1. Impaired mobility and ADLs - Consult/Referral Machine Tool Mechanic [facility] 2024-09-19 13:51:00 Addended by: MARCEL BEST on: 09/20/2024 10:13 AM Modules accepted: Orders [facility] 2024-09-15 13:51:26 Images from the original note were not included. Medical records received [facility] Paezgiovanny placed in Dr. Lewis folder for review. Walker [facility] 2024-09-13 13:40:47 Referral to general cardiology placed for patient. [facility] 2024-09-13 12:21:55 1. Multiple falls - [...] as directed Dispense: 1 Kit; Refill: 0 [facility] 2024-09-13 12:19:30 Maximus Sheehan is a 68 year old male Patient is scheduled on 10/[address] Fink for an appointment and is needing a referral on file; please advise and assist with request. Thank you! Rosario Menendez 09/13/2024 12:21 PM [facility] Rosario Menendez [facility] 2024-09-12 09:53:08 Form placed in provider folder for review. [facility] Marianela Calderon MA [facility] 2024-09-12 08:24:50 Images from the original note were not included. Walker [facility] 2024-09-08 15:35:52 Per last OV note medication was discontinued - 09/07/2024. AL PROSTHETIST Jose Ramos RN [facility] 2024-09-08 13:51:44 Maximus Sheehan is a 68 year old male Valerie, nurse with [facility], called to let us know that pt stopped glipizide due to dizziness. Call pt to further discuss. Hardwick [facility] 2024-08-29 09:16:59 Call placed to MACK Tong, Notified will follow pt. AL PROSTHETIST Jose Ramos RN [facility] 2024-08-29 07:53:21 yes [facility] 2024-08-27 10:55:27 Encounter was addressed in additional encounter. Maggy Gross LVN [facility] 2024-08-26 16:45:41 Routing call to provider for review. avon Ramos RN [facility] 2024-08-26 16:37:03 Alycia with [facility] Home Health is wanting to know if Doctor Obi-Lg will follow patient for home health. Reymundo Martell [facility] 2024-08-26 14:19:05 Please schedule. Priti Baron RN [facility] 2024-08-26 14:02:54 Called patient, he had surgery with Dr. Doll 08/25/24 and was informed to return to clinic Thursday to have catheter removed. Routing message to PSS to schedule NV for patient to have voiding trail on Thursday. Nisha Aguilera MA [facility] 2024-08-26 13:51:32 The hospital called stating the patient needs a cath removal NV appointment 08/29/24. Please advise. Letty Clement [facility] 2024-08-26 13:32:57 Problem: Falls, Risk of [...] Outcome: Adequate for discharge Gila Dillon RN [facility] 2024-08-25 22:37:01 Problem: Falls, Risk of [...] Progressing as expected Angel Luis Little RN [facility] 2024-08-25 17:49:05 Problem: Falls, Risk of [...] Outcome: Progressing as expected Krista Turcios RN [facility] 2024-08-25 10:40:14 Called patient, admitted for IV abx [facility] 2024-08-24 22:14:45 Problem: Falls, Risk of Goal: Absence of falls Outcome: Progressing as expected Problem: Venous Thromboembolism, (actual or risk of) Goal: Absence of venous thromboembolism (Risk) Outcome: Progressing as expected Problem: Skin integrity Impaired (Risk or Actual) Goal: Prevention of new skin breakdown Outcome: Progressing as expected Kelsi Seals RN [facility] 2024-08-24 20:12:45 AdmissionCare Guideline: Urinary Tract [...] uncertain AdmissionCare documentation entered by: Jhony Madden [facility], 28th edition, Copyright ? 2023 [facility] All Rights Reserved. [id number]:12:[id number]:00 [facility] 2024-08-24 16:18:13 Images from the original note were not included. Spoke with patient; he states he saw his pcp regarding this issue and was sent to the ER by his pcp. Pt has is scheduled for surgery with Dr. Doll on 08/25/24. Priti Baron RN [facility] 2024-08-24 08:13:26 Images from the original note were not included. Choice HTA-Discharge Summary report received placed Dr. Lewis folder for review. Cynthia Walker [facility] 2024-08-23 16:45:00 Pt given printed and [...] in no apparent distress. Digna Shore RN [facility] 2024-08-23 14:45:09 Images from the original note were not included. Connie Hoyos RN [facility] 2024-08-23 11:03:14 Pt arrived via WC for hematuria, sent by provider. Pt has been self cathing and is scheduled for sx on 08/25 for enlarged prostate. Pt has not self cathed since yesterday morning d/t the blood. Quiana Carranza RN [facility] 2024-08-23 10:47:00 [facility] Emergency Department Note Patient Name: Maximus Sheehan Date of : 1955 68 year old male Treatment Room: Room/bed info not found Primary Care Physician: Marcel Toth Patient Escorted by: Self [9] Mode of Arrival: Personal means [1] EMS Treatment Prior to ED Arrival: AEROSPACE MEDICINE PHYSICIAN treatment: None Travel and Exposure Screening: Symptoms [...] Right 03/22/2024 Surgeon: Ron Hoover MD; Location: [facility] OR [facility] CORONARY ARTERY BYPASS GRAFT CRANIOTOMY Review [...] 0.01 - 0.09 10*3/uL COMP. METABOLIC PANEL (40556) - Abnormal NA 134 (*) 135 - [...] Procedures Cbc with Diff Comp. Metabolic Panel (76729) Urinalysis Urine Culture Orders Placed This Encounter Medications NaCl 0.9% (NS) bolus infusion 500 mL ceFEPIme (MAXIPIME) 2,000 mg in NaCl 0.9% (NS) 100 mL MINI-BAG First Provider Eval: ED Events Date/Time Event User Comments 08/23/24 105 Medical Screening Begins SANDRO RAMIREZ MD -- [...] showing Pseudomonas; pt has Rx waiting at [facility] for Cipro which UTI is susceptible to. [...] on file Follow-up: Contact information for follow-up [facility]: Urology [address] [place] [id number] Instructions: As needed Electronically signed by: Sandro Ramirez MD 08/23/24 1585 [facility] 2024-08-23 10:40:32 Images from the original note were not included. Sarah Guerra RN [facility] 2024-08-22 07:31:47 Maximus Sheehan is a 68 year old male Pt is requesting a call regarding difficulty urinating, now he he also experiencing blood in urine since earlier this morning. Thanks Raegan Israel [facility] 2024-08-21 10:38:57 CT: 1. Small calcifications [...] days of levo post op Daily laxatives [facility] 2024-08-18 13:15:00 Summary: Only urine Images from the original note were not included. Patient has been identified by and name and was provided with cup, antiseptic towelette, and clean catch instructions. 1 urine specimen(s) sent. 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 Priti Baron RN [facility] 2024-08-17 09:23:11 Mr. Sheehan is scheduled [...] make arrangement to provide more straight caths? [facility] 2024-08-16 08:52:52 Order for repeat urine culture [facility] 2024-08-15 17:11:37 Images from the original note were not included. Spoke with patient, states he went to the ER at [facility] today where he received an IV antibiotic and a rx for Keflex 500mg QID x7 days. He states that nightly he straight caths himself due to retention. He is having prostate surgery 08/25/24. PSS will call to schedule appointment as directed. Priti Baron RN [facility] 2024-08-15 17:09:04 Please see other encounter for this patient. ANT Priti Baron RN [facility] 2024-08-15 16:26:21 Pt given printed and [...] in no apparent distress, Yomaira Shipley RN [facility] 2024-08-15 16:23:47 Patient would like to clarify if he can continue using catheters even though he is experiencing infection with antibiotics. Ana Maria Andrew [facility] 2024-08-15 13:41:57 Bladder scanner showed 76mls in bladder. [facility] 2024-08-15 12:54:58 Pt arrives to ED ambulatory w/walker, c/o urinary urgency & hesitancy & now seeing blood today. He states he is supposed to have sx on 08/25 for enlarged prostate. Marianela Walker RN [facility] 2024-08-15 10:46:00 Regardinyr/male - urinating blood ----- Message from Patient Screen And Cyclone Repairer sent at 08/15/2024 10:45 AM CDT ----- Maximus Sheehan is a 68 year old male 68yr/male States he started urinating blood about an hour ago and has been urinating every 10 to 15 minutes since then and it is very painful. Latosha Roberts RN [facility] 2024-08-15 10:46:00 Adult Triage Assessment Last [...] [facility] but may need to call an ambulance that will take him to [place] but either way he will go to the ED. [facility] 2024-08-15 10:46:00 Routing to provider to advise if he would like to have patient come in for visit. Linda Valles RN Linda Ramos RN [facility] 2024-08-15 10:46:00 Offer RTC NV for PVR and Ucx If retention , update me Thanks T [facility] 2024-08-15 10:46:00 Patient notified of results/recommendations, understanding was verbalized via teach back. Patient scheduled NV today 2:30 PM. Patient will call to reschedule if he is unable to find a ride. Maureen Mazariegos RN [facility] 2024-08-11 16:45:[address] Lewis 08/23 10am Cynthia Walker [facility] [facility] 15:17:45 Urine culture sent to lab at this time. Patient to continue ASA per cardiology recommendations. Patient verbalized understanding. Maureen Mazariegos RN [facility] 2024-08-11 14:55:40 Addended by: LYNN DOLL on: 08/11/2024 02:55 PM Modules accepted: Orders [facility] 2024-08-11 14:48:[address] showed no obvious cancer changes in upper tracts, stable multiple I-IV Atherosclerosis changes Enlarged prostate as per cysto findings I counseled patient about options for treating BPH and natural history if not treated ( bladder atony, voiding dysfunction, renal failure, stones recurrent infection, and need for laborer beam house catheter) CIC, surgical options: TURP, ThuLVP to alleviate the obstruction and attempt improve LUTS and avoid risk of complications from mcc HERRON. Possible adverse events recognized with TURP [...] constipation Follow up with vascular for atherosclerosis [facility] 2024-08-11 14:15:00 Started on oral abx Needs RTC Thursday08/18/2024 to repeat Ucx URO-UROLOGY STAFF [facility] 2024-08-11 14:13:08 Patient would like results of CT scan. Will route to provider for review. Maureen Mazariegos RN [facility] 2024-08-09 09:48:01 Thank you! I have attached this to the appointment. Rema [facility] 2024-08-08 21:20:18 1. PFO (patent foramen ovale) - Consult/Referral Cardiology 2. Coronary artery disease without angina pectoris, unspecified vessel or lesion type, unspecified whether kake or transplanted heart - Consult/Referral Cardiology [facility] 2024-08-08 14:17:03 Patient is coming in to see Dr Davison on 08/15/24 for Interventional Cardiology, due to insurance pt is needing a referral. Please assist, thank you. Rem[facility] 2024-08-08 08:43:45 Images from the original note were not included. Lynne Roach [facility] 2024-08-05 11:54:13 Spoke with patient and answered all questions. Maureen Mazariegos RN [facility] 2024-08-04 14:42:28 Forms signed and faxed, confirmation received Jazmin Jones MA 08/04/2024 2:43 PM [facility] 2024-08-03 16:17:21 Form placed in providers folder for review. Jose Ramos RN [facility] 2024-08-03 15:45:18 Images from the original note were not included. Forms placed in nurse folder. Lynne Roach [facility] 2024-08-03 10:37:55 UROLOGY POST-PROCEDURE CALL Procedure: Cysto [...] sent with post-op instructions. Sarai Obrien RN [facility] 2024-08-02 16:24:08 Maximus Sheehan is a 68 year old male Patient calling wanting to know if a catheter needs to be done tonight or tomorrow morning. Patient is still sensitive from this morning. Please advise patient. Keely Aaron [facility] 2024-08-02 13:39:52 Called patient and questions answered CAROLYN-VASCULAR SURGERY STAFF [facility] 2024-08-02 13:36:39 Patient notified of results/recommendations, understanding was verbalized via teach back. aMureen Mazariegos RN [facility] 2024-08-02 11:05:54 Can continue aspirin [facility] 2024-08-02 09:38:25 Moderate cardiac risk. Okay to hold aspirin if absolutely necessary. [facility] 2024-08-02 09:27:27 The following patient is scheduled for HoLEP with Lynn Doll at [facility] ADC Surgery Department. The procedure is currently scheduled on TBD and requires Cardiac clearance prior to the procedure. Please submit the following: Note indicating Cardiac clearance risk level 2. Most recent office note date 3. Recent tests (if not accessible in [facility]): Labs, EKG, Echo, etc 4. [...] you, Maureen Mazariegos RN Maureen Mazariegos RN [facility] 2024-07-23 06:27:46 Access Center: [facility] Open Encounter Maintenance Chart Review: Patient was seen in Neurology Clinic on 07/07/2024. Nurse Note: RN closing encounter in [facility] r/t clinical action items completed. Latosha Roberts RN [facility] Access Center Triage Nurse Latosha Roberts RN [facility] 2024-07-22 10:00:00 Images from the original note were not included. Pt here for Alzweri orders. Patient has been identified by and name and was provided with cup, antiseptic towelette, and clean catch instructions. 2 urine specimen(s) sent. Unpreserved 1 Urine Culture 1 Aptima tube Other urine [facility] 2024-07-14 16:10:[address] Hoover. Kanika Moreland RN [facility] 2024-07-12 16:57:24 TRANSITIONAL CARE MANAGEMENT ASSESSMENT 07/12/2024 Maximus Sheehan [id number] Maximus Sheehan is a 68 year old /White male was admitted on 07/07/24 to [facility] MED SURG 2 N. He was discharged [...] 4:54 PM Jayashree Josue RN Comments: TCM Cdy-yrta-hf-face outreach documentation: Discharge Assessment Chart Assessed: 07/12/24 [...] Yes [facility] [address] [place] [address] F: [phone] Survey - Recognition Is there anything you would like to share about your recent hospitalization, or anyone you would like to recognize?: No Do you have any suggestions for improvement?: No Do you have any other questions or concerns at this time?: No Future Appointments: Future Appointments Provider Department Dept Phone 07/18/2024 2:40 PM Allyson Fink MD [facility] Cardiology, [facility] [phone] 07/22/2024 10:00 AM 2, Adc Lab [facility] Clinical Laboratory, [facility] [phone] 08/02/2024 8:30 AM Lynn Doll MD [facility] [phone] 08/15/2024 3:00 PM Roma Davison [facility] [phone] 08/30/2024 1:20 PM Marcel Toth MD [facility] [phone] 10/04/2024 1:00 PM Allyson Fink MD [facility] [phone] 12/29/2024 1:00 PM Allyson Fink MD [facility] [place] [phone] 03/30/2025 1:45 PM Ron Hoover MD [facility] [phone] Jayashree Josue RN [facility] 2024-07-12 12:08:23 Care Transitions Nurse CM made f/u call to patient post-discharge. No answer, call went to voicemail. CM left discreet message with CM's call back information. CM will try again at a later time. ANETTE Swift, RN, CCRN Tractor Mechanic, Transitions of Care [email or web address] 2024-07-09 22:40:58 Problem: Falls, Risk of [...] Outcome: Progressing as expected Keeley Carnes RN [facility] 2024-07-09 12:14:49 Problem: Falls, Risk of [...] Outcome: Progressing as expected Kimberly Lebron RN [facility] 2024-07-09 04:06:50 Problem: Falls, Risk of [...] assistive device appropriately Outcome: Progressing as expected [facility] 2024-07-08 17:30:15 Problem: Falls, Risk of [...] Outcome: Progressing as expected Jane Lua RN [facility] 2024-07-08 13:25:56 Images from the original note were not included. [facility] Clinical Pharmacist Consult Consulting Service: Pharmacy Medication Reconciliation Patient: Maximus Sheehan ([id number]) is a 68 year old male currently [...] High quality RED TEXT INDICATES NOTABLE CHANGES AEROSPACE MEDICINE PHYSICIAN Meds List Medication Sig Recommend Justification Comments BD ULTRAFINE III MINI PEN 31 gauge x 3/16" Ndle USE DIRECTED 4 TIMES A DAY Continue Blood-Glucose Sensor (FREESTYLE JOSE 3 SENSOR) Yumiko Use as directed Continue cholecalciferol, vitD3,/vit K2 (VITAMIN D3-VITAMIN K2 ORAL) Take by mouth. Hold Nonformulary docosahexaenoic acid/epa (FISH OIL ORAL) Take by mouth. Continue dulaglutide (TRULICITY) 1.5 mg/0.5 mL Dickson INJECT 1 PEN SUBCUTANEOUSLY WEEKLY Continue flash [...] by Lynsey Macias Outpatient Pharmacy Contact Information: [facility]/pharmacy #[id number] - [place], [place] - [address] AT [address] [address] [facility] - [address] [place] [id number] Is the patient interested in Gxmh-un-Mrvm? Did not ask Contact motor vehicle parts interpreter services? No motor vehicle parts interpreter needed. Lynsey Macias 1:19 PM, 07/08/2024 [facility] Department of Pharmacy - [facility] Phone: [facility]: [phone] Lynsey Macias [facility] 2024-07-08 08:49:30 Images from the original note were not included. Peer to Peer received from [employer] forms placed in provider basket. Lynne Christiansen [facility] 2024-07-08 06:07:15 Problem: Falls, Risk of [...] assistive device appropriately Outcome: Progressing as expected [facility] 2024-07-07 19:14:18 Called 2N to give report. KERRY Walden confirms that she has rcv'd the report and has no questions and is ready to rcv this pt. Macie Whitman RN [facility] 2024-07-07 19:01:15 Report sent via fax and tube by KERRY Malik T [facility] 2024-07-07 18:49:28 Report attempted. Helena Soria RN [facility] 2024-07-07 18:46:56 Maixmus Sheehan is a 68 year old male presenting to the ED with c/o right sided weakness and numbness that has been present for the last few months. Endorses dizziness for hte last few weeks. Denies CP/SOB/N/V/D. AOX4, NAD. VSS Past Medical History: Diagnosis Date Brain bleed Diabetes mellitus Hypertension Kidney stone [facility] 2024-07-07 15:25:58 Maximus Sheehan is a 68 year old male presenting to the ED today for: R side weakness and numbness that's been going on for months Pt reports dizziness has been going on for a couple weeks. Pt was at an appointment with his DIRECTOR SPECIAL EDUCATION and was told to come to the [...] mellitus Hypertension Kidney stone Keyonna Max RN [facility] 2024-07-07 15:11:00 [facility] Emergency Department Note Patient Name: Maximus Sheehan Date of : 1955 68 year old male Treatment Room: [place] [address] Primary Care Physician: Marcel Toth Patient Escorted by: Self [9] Mode of Arrival: Personal means [1] EMS Treatment Prior to ED Arrival: AEROSPACE MEDICINE PHYSICIAN treatment: None Travel and Exposure Screening: Symptoms [...] Right 03/22/2024 Surgeon: Ron Hoover MD; Location: [facility] CORONARY ARTERY BYPASS GRAFT CRANIOTOMY Review [...] 10.6 mg/dL eGFR 113.9 mL/min/1.73m2 LIPID PANEL (33249)(TOTAL CHOLESTEROL, TRIGLYCERIDES, HDL) - Abnormal CHOL 104 [...] CREATININE, CA) TROPONIN I Fasting Lipd Panel (32777)(TOTAL CHOLESTEROL, TRIGLYCERIDES, HDL) POCT Glucose (Age >30 Days) POCT GLUCOSE (AUTOMATED) POCT GLUCOSE (AUTOMATED) POCT GLUCOSE (AUTOMATED) Verifynow Aspirin Test POCT GLUCOSE (AUTOMATED) Consult Public Relations Writer - STROKE Patient Consult Neurology - STROKE [...] hours). AdmissionCare documentation entered by: Juan Calvillo [facility], 28th edition, Copyright ? 2023 [facility] [employer] All Rights Reserved. [id number]:17:41-05:00 ED COURSE ED Course as of 07/08/24 1535 Jennifer Jul 07, 2024 171 Discussed with neurology DIRECTOR SPECIAL EDUCATION Silviano, due to complicated CVA history they would like inpatient expedited workup [LM] 1543 EKG time 1523, EKG is normal sinus rhythm, rate of 73, PA is 170, QRS 146, QTc is 473, [...] Drift LIMB ATAXIA: 0 Absent SENSORY: 1 Inu-sz-Fmltxmmm Sensory Loss BEST LANGUAGE: 0 No Aphasia [...] Drift LIMB ATAXIA: 0 Absent SENSORY: 1 Yhd-yt-Qwzspqjr Sensory Loss BEST LANGUAGE: 0 No Aphasia [...] - Observation Condition Stable Comment Treatment Team: [facility] [[id number]] Discharge Medications: Current Discharge Medication List STOP [...] Electronically signed by: Juan Calvillo MD 07/08/24 153 [facility] 2024-07-07 15:11:00 AdmissionCare Guideline: Stroke (Ischemic) [...] hours). AdmissionCare documentation entered by: Juan Calvillo [facility] [employer], 28th edition, Copyright ? 2023 [facility] [employer] [facility] All Rights Reserved. [id number]:17:41-05:00 T [facility] 2024-07-06 09:02:03 Pt was given referral for Urology with contact info. Jose Ramos RN [facility] 2024-07-06 08:35:12 CT abdomen and pelvis with intravenous Contrast from [facility] dated 07/01/2020 fall had an impression of asymmetric thickening involving the superior bladder wall. Findings concerning for neoplasm. Mild bilateral hydroureteral nephrosis. No obstructing stones identified. Prostate is enlarged. 1. Hematuria, unspecified type - Consult/Referral Urology: General [facility] 2024-07-05 13:37:02 Referral has been renewed. Cerebrovascular accident (CVA), unspecified mechanism [I63.9] Numbness [R20.0] Balance problem [R26.89] hx of CVA and balance problms . Occassional numbness on the right side [facility] 2024-07-05 11:19:27 Maximus Sheehan is a 68 year old male Pt has a Neurology appointment for stroke on 07/07. Can you please send over a referral so we can obtain auth for this visit? Pt will be seeing April Stuartmora Thank you Debbie Garcia [facility] 2024-07-05 10:52:32 Patient came in office to drop off final radiology report, disc, and lab work done at [facility]. Placed in provider folder for review. Shefali Marie [facility] 2024-07-04 08:31:36 Received medical records from [facility]. Placed in provider basket for review. Shefali Marie [facility] 2024-07-02 20:40:44 1. Hematuria, unspecified type Please f/u and also get the hospital report - Consult/Referral Urology: General [facility] 2024-07-01 07:57:07 From: Maximus Sheehan To: Office of Pat Ochoa Sent: 07/01/2024 12:28 AM CDT Subject: Medication Renewal Request Refills have been requested for the following medications: dulaglutide (TRULICITY) 1.5 mg/0.5 mL PnIj [Marcel Toth] Preferred pharmacy: [facility]/PHARMACY #[id number] Delivery method: Pickup [facility] 2024-06-29 09:16:49 Referral has been placed and patient will be contacted for scheduling assistance. Edgar Driscoll [facility] 2024-06-29 08:11:09 Maximus Sheehan is a 68 year old male calling to schedule referral for TIA. [phone] (home) Yarely Fontana [facility] 2024-06-23 12:02:58 Patient brought [facility] CD with [address] head & brain, Ct head angio, CT head brain w/o contast, CT neck angio and CT Head angio. Uploaded through [employer] and [employer] library with patient's MRN so they can load into [facility] PACS. Lotus Ward RN [facility] 2024-06-23 11:39:15 Pat is taking it to radiology here for uploading. PN-NEUROLOGY STAFF [facility] 2024-06-22 09:39:47 Addended by: BEBE SEGURA on: 06/22/2024 09:39 AM Modules accepted: Orders [facility] 2024-06-22 09:38:42 Dr. Aguilar, if you are unable to get disc uploaded into [employer], please let me know. I let pt know we would call him to pick it up if needed to take to stroke clinic appt. [facility] 2024-06-22 09:38:02 Updated pt of all per Dr. Aguilar : I looked at his data, and there was question of one artery being narrowed: the vertebral. He needs to be seen in the stroke clinic. I will see if we can get the disk uploaded into the [facility] EPIC Pt verbalized understanding of all. [facility] 2024-06-22 08:58:36 I looked at his data, and there was question of one artery being narrowed: the vertebral. He needs to be seen in the stroke clinic. I will see if we can get the disk uploaded into the [facility]. Can you make that consult? Thanks. PN-NEUROLOGY STAFF [facility] 2024-06-20 10:53:04 Noted. Bebe Segura LVN [facility] 2024-06-20 10:40:40 Maximus Sheehan is a 68 year old male Pt states he will not have the disk tomorrow to give . Pt wanted to inform. Kalani Rosales [facility] 2024-06-20 10:23:05 Refill request for metoprolol received. Refill sent to pharmacy of choice. Patient is compliant as per [facility] Cardiology Protocol. Franklin Preston MA [facility] 2024-06-08 08:09:15 See patient is on metformin 500mg 1 tab bid , can increase it to 2 tab bid instead of the glipizide [facility] 2024-06-06 09:28:51 Images from the original [...] ROBYN Rollins Last refill: 04/15/2024 Rx #: [id number] Endocrinology: Diabetes - Insulins Kbcdiq0006/06/2024 08:29 AM Protocol Details Manual review: Staff refilling for [facility], Cr lab not required to refill Cr in normal range and within 360 days Valid encounter within last 12 months HBA1C within 180 days To be filled at: [facility]/pharmacy #[id number] - [place], [place] - [address] AT [facility] 05-26-2024 NOV 08-30-2024 Marianela Calderon MA [facility] 2024-06-03 09:14:27 FINDINGS: Proximal abdominal aorta [...] blood pressure and cholesterol is stable T [facility] 2024-05-31 13:15:00 Images from the original note were not included. Venipuncture collection performed by clean technique on the right anticubitus. Total of 1 attempts were made. Slight pressure and a bandage/dressing were applied to the site(s). The patient experienced no complications. The following specimens were processed according to instructions and sent to [facility] laboratories per lab order on 05/31/2024: LT BLUE SST 1 RED LAV 2 PPT DK GREEN (LiHep) DK GREEN (SodH) MENON DK BLUE (K2) DK BLUE (S) ACD Blood Culture NIPT/NTD Patient has been identified by and name and was provided with cup, antiseptic towelette, and clean catch instructions. 1 urine specimen(s) sent. Unpreserved 1 Urine Culture Aptima tube Other urine [facility] 2024-05-31 13:15:00 Addended by: MARCEL BEST on: 06/09/2024 12:34 PM Modules accepted: Orders [facility] 2024-05-05 10:49:33 Images from the original note were not included. Scanned in folder and placed in provider basket for review. Lynne Christiansen [facility] 2024-04-29 13:34:10 Noted-Pat Garcia Pat Garcia MA [facility] 2024-04-29 13:02:49 Maximus Sheehan is a [...] change the pts HH care. Myriam Haney [facility] 2024-04-14 13:27:53 Images from the original note were not included. Requested Renewals dulaglutide (TRULICITY) 1.5 mg/0.5 mL PnIj Sig: inject 1 Pen under the skin weekly. Disp: 12 Pen Refills: 0 Start: 04/14/2024 Class: eRX Non-formulary For: Type 2 diabetes mellitus without complication, with long-term current use of insulin Last ordered: 3 months ago (01/04/2024) by ROBYN Rollins Rx #: [id number] Patient comment: I am out as of today Endocrinology: Diabetes - Insulins Ismsff9704/14/2024 01:16 PM Protocol Details Manual review: Staff refilling for [facility], Cr lab not required to refill Cr in normal range and within 360 days Valid encounter within last 12 months HBA1C within 180 days To be filled at: [facility]/pharmacy #[id number] - [place], [place] - [address] [place] [address] AT [facility] 03-29-2024 [facility] 2024-04-14 13:16:12 From: Maximus Sheehan To: Office of Pat Ochoa Sent: 04/14/2024 12:51 PM CDT Subject: Medication Renewal Request Refills have been requested for the following medications: dulaglutide (TRULICITY) 1.5 mg/0.5 mL PnIj [Pat Ochoa] Patient Comment: I am out as of today Preferred pharmacy: [facility]/PHARMACY #[id number] - [address] Delivery method: Pickup [facility] 2024-03-28 08:27:15 Quanta vicente pad test 02/24/24 concerning for moderate pad. Continue risk assessment and reduction. Patient on statin -FAMILY MEDICINE STAFF [facility] 2024-03-28 08:12:35 Records reviewed, f/u in next appointment [facility] 2024-03-24 12:11:30 Problem: Bleeding, Risk of [...] Outcome: Progressing as expected Lakeshia Turcios RN [facility] 2024-03-24 08:38:24 Problem: Bleeding, Risk of Goal: Absence of impaired coagulation signs and symptoms Outcome: Progressing as expected Goal: Absence of active bleeding Outcome: Progressing as expected Problem: Falls, Risk of Goal: Absence of falls Outcome: Progressing as expected Problem: Discharge Planning Goal: Adequate for discharge Outcome: Progressing as expected Goal: Effective communication Outcome: Progressing as expected T [facility] 2024-03-24 03:23:47 Problem: Bleeding, Risk of Goal: Absence of impaired coagulation signs and symptoms 03/24/2024323 by Jose Cruz RN Outcome: Progressing as expected 03/24/2024 0323 by Jose Cruz RN Outcome: Progressing as expected Goal: Absence of active bleeding 03/24/2024 032 by Jose Cruz RN Outcome: Progressing as expected 03/24/2024 032 by Jose Cruz RN Outcome: Progressing as expected Problem: Falls, Risk of Goal: Absence of falls Outcome: Progressing as expected Problem: Discharge Planning Goal: Adequate for discharge Outcome: Progressing as expected Goal: Effective communication Outcome: Progressing as expected Lavon Cruz RN [facility] 2024-03-23 14:48:50 Health assessment received from [facility] scanned in folder and placed in provider basket for review. Lynne Christiansen [facility] 2024-03-22 21:46:38 Problem: Bleeding, Risk of Goal: Absence of impaired coagulation signs and symptoms Outcome: Progressing as expected Goal: Absence of active bleeding Outcome: Progressing as expected Steven Ambrose RN [facility] 2024-03-22 08:19:00 FULL OPERATIVE NOTE Date [...] Hoover MD, ZINA RAGLAND Vascular Surgery PGY17 [facility]-VASCULAR SURGERY [facility] 2024-03-22 08:19:00 BRIEF OPERATIVE NOTE Date [...] Implant Name Type Inv. Item Serial No. Internetworking Technician Lot No. LRB No. Used Action PATCH XENOSUR 0.8X8CM TAPR 0.5 #[id number] - S0000 Tissue, Biological PATCH XENOSUR 0.8X8CM TAPR 0.5 #[id number] 0000 [facility] VASCULAR [id number] Right 1 Implanted Patient's Condition: stable Findings: ICA stenosis Any other important information: - SBP goal <140 Please see dictated operative report for additional detail. Associated attestation - Ron Hoover MD - 03/24/2024 7:31 AM CDT I was scrubbed in and directly supervised and/or performed all critical portions of the procedure. Ron Hoover MD, ZINA RAGLAND Vascular Surgery PGY17 [facility] 2024-03-19 10:30:00 Images from the original note were not included. Venipuncture collection performed by clean technique on the left anticubitus. Total of 1 attempts were made. Slight pressure and a bandage/dressing were applied to the site(s). The patient experienced no complications. The following specimens were processed according to instructions and sent to [facility] laboratories per lab order on 03/19/2024 : Patient armbanded and specimen sent to [facility]. LT BLUE SST RED LAV 1 PPT DK GREEN (LiHep) DK GREEN (SodH) MENON DK BLUE (K2) DK BLUE (S) ACD Blood Culture NIPT/NTD [facility] 2024-03-17 16:02:18 Results received from [employer] scanned in folder and placed in provider basket for review. Lynne Christiansen [facility] 2024-03-14 11:49:56 Rollator order sent to [facility] [facility]. Jose Ramos RN [facility] 2024-03-11 14:59:20 Images from the original note were not included. POC discussed with pt, ER precautions discussed. Pt verbalized understanding and agrees w/POC. Pat Ochoa, ROBYN MIDLEVEL PROVIDER Signed 2:38 PM I would continue to hold the Losartan If the BP starts to go up to 140/90 Then start back at Losartan 12.5 mg (half the tablet) Jose Ramos RN [facility] 2024-03-11 14:38:58 I would continue to hold the Losartan If the BP starts to go up to 140/90 Then start back at Losartan 12.5 mg (half the tablet) T [facility] 2024-03-11 14:12:39 Pt states HH nurse [...] of Rollator. Rx re-printed to send via [facility]. Message forwarded to ROBYN Esparza. T [facility] 2024-03-11 13:08:47 Copied from [facility] #[id number]. Topic: Clinical - Medical Advice >> March 11, 2024 1:05 PM Patient Screen And Cyclone Repairer wrote: Pt calls and states that his BP is continuously low. Pt stopped taking losartan [address] Fink put pt on metoprolol and made him stop taking carvedilol. He states that it is starting to get a little better. He is requesting to speak with clinical staff in regards to his blood pressure readings. Please advise. T Janie Hardwick [facility] 2024-03-10 15:00:00 Addended by: RON HOOVER MD on: 03/17/2024 04:12 PM Modules accepted: Orders T [facility] 2024-03-03 01:59:06 Pt dc'd home with personal walker. Pt v/u to keep follow up appointments that he already has scheduled and to return to ED for worsening symptoms. ANT Quiana Carranza RN [facility] 2024-03-02 23:43:23 Pt stated he had a fall last Thursday and woke up 30 min later on the floor. Pt had full workup at [facility]. Pt stated tonight he "just felt like I wasn't going to wake up in the morning so I decided to come get checked out." Pt obtained a ride from a friend in the religious he lives at and asked me if we could keep him until 8am so he could walk across the street to his cardiology appointment at 9am. [facility] 2024-03-02 23:16:00 Pt arrives ambulatory with [...] BG 123 in triage. Marianela Walker RN [facility] 2024-03-02 16:21:06 Forms placed in nurse folder, has appt tomorrow. 03/03/2024. Jose Ramos RN [facility] 2024-03-02 14:04:26 Please make sure patient brings imaging studies with him to appointment (CT results on disc please, not just report) CAROLYN-VASCULAR SURGERY STAFF [facility] 2024-03-02 13:53:08 Images from the original note were not included. Transition of Care forms received placed in Nurse fax folder. Cynthia Walker [facility] 2024-03-02 11:16:[address] [facility] reports and disc received by patient and placed in the providers folder at [facility] location. Reports scanned to [employer] for upload. Ana Maria Andrew [facility] 2024-02-29 13:16:02 Patient scheduled for next available 03/10/24 and message routed to Dr Hoover for notification. Spoke with patient and notified next available 03/10/24. Patient encouraged to let attending know that he is scheduled for next available 03/10/[address] Hoover. Patient verbalized understanding. 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 Venipuncture collection performed by clean technique on the right anticubitus. Total of 3 attempts were made. Slight pressure and a bandage/dressing were applied to the site(s). The patient experienced no complications. The following specimens were processed according to instructions and sent to [facility] laboratories per lab order on 02/22/2024 : LT BLUE SST 2 RED LAV 1 PPT DK GREEN (LiHep) DK GREEN (SodH) MENON DK BLUE (K2) DK BLUE (S) ACD Blood Culture NIPT/NTD [facility] 2024-02-10 15:14:11 Forms received and placed in providers folder. Jose Ramos RN [facility] 2024-02-10 08:57:17 Images from the original note were not included. Placed in nurse folder. Lynne Christiansen [facility] 2024-02-10 08:50:30 Will await forms for completion Jose Ramos RN [facility] 2024-02-10 08:21:11 Maximus Sheehan is a 68 year old male January [facility] medical called stating they will be faxing over "Jose 2 sensors forms" for pcp to be filled out. Please advise [facility] MEDICAL INFO Ph # [phone] Fx # [phone] Anatoly Clark [facility] 2024-01-29 12:43:02 Refill [facility] 2024-01-29 11:31:00 Medication has not been filled by our office before. Message forwarded to provider for approval. Jose Ramos RN [facility] 2024-01-06 09:06:45 Images from the original note were not included. Notification received [facility], placed in provider folder for review. Cynthia Walkre [facility] 2024-01-04 16:53:53 Received medical records from [facility] scanned and placed in box. Yancy Thurston [facility] 2024-01-04 15:13:09 Sensor has been sent to a DME company ([employer]) through [employer]. Patient rollator is waiting for provider signature. Resent to provider to sign orders through [employer]. Marianela Calderon MA [facility] 2024-01-04 13:51:14 Per patient, he is using the [employer] 2 sensor and it must be sent to [facility], it cannot be sent to the pharmacy. Order updated. Will routed to [facility] for DME order to [employer]. [facility] 2023-12-29 13:59:51 Pt has signed medical release and has been faxed to designated location for request of medical records. Confirmation received. Scanned and uploaded to patients chart. AL PROSTHETIST Lucia Sandoval [facility] 2023-12-08 10:49:19 Maximus Sheehan [id number] 12/08/23 Incoming call from patient who is [...] unable to transfer to this clinic in [place], [place]. Patient was given the clinic phone number [phone] to speak with staff at the [facility]. Deandra Medina RN 12/08/2023 10:49 AM AL PROSTHETIST Deandra Medina RN [facility] 2023-12-02 11:45:00 Images from the original note were not included. Venipuncture collection performed by clean technique on the right anticubitus. Total of 1 attempts were made. Slight pressure and a bandage/dressing were applied to the site(s). The patient experienced no complications. The following specimens were processed according to instructions and sent to [facility] laboratories per lab order on 12/02/2023: LT BLUE SST 1 RED LAV 2 PPT DK GREEN (LiHep) DK GREEN (SodH) MENON DK BLUE (K2) DK BLUE (S) ACD Blood Culture NIPT/NTD Patient has been identified by and name and was provided with cup, antiseptic towelette, and clean catch instructions. 2 urine specimen(s) sent. Unpreserved 2 Urine Culture Aptima tube Other urine AL PROSTHETIST [facility] 2023-12-02 10:32:53 DME order for Rollator was sent through [employer]. Sent to [facility] Patient. AL PROSTHETIST Marianela Calderon MA [facility]
[2025-07-17 15:57] LABS: Absolute Lymphocytes (CBC) 2.6 K/uL (0.7-4.9); Hematocrit 43.7 % (39.6-49.0); Hemoglobin 14.6 g/dL (13.6-17.9); MCH 29.7 pg (27.0-35.0); MCHC 33.4 g/dL (32.0-36.0); MCV 89.1 fL (80-100); MPV 7.7 fL (7.6-11.3); Nucleated RBC Absolute Count 0.0 (0-0); Nucleated Red Blood Cells % 0.1 % (0-0); RBC Red Blood Cell Count 4.91 M/uL (4.33-5.43); White Blood Count 8.70 thou/uL (4.3-10.9)
[2025-07-17 16:22] LABS: Anion Gap 8.6 mEq/L (5.0-15.0); BUN Blood Urea Nitrogen 12.0 mg/dL (7-18); Glucose Level 57.0 mg/dL (74-106); NT PRO-BNP 76.0 pg/mL (<125); Potassium 3.6 mEq/L (3.5-5.1); Thyroid Stimulating Hormone 1.69 uIU/mL (0.358-3.740); Troponin High Sensitivity 29.6 pg/mL (<58.9)
[2025-07-17] MEDS ORDERED: KETOROLAC 30 MG/ML INJ ONE (16:31)
--- NOTE | 2025-07-17 16:37 | RAD REPORT ---
EXAMINATION: ONE VIEW CHEST XR CLINICAL INDICATION: Male, 69 years old.,CHEST PAIN TECHNIQUE: Frontal chest projection is submitted. Examination is limited by patient positioning and t echnique. COMPARISON: 06/19/2025 FINDINGS: The lungs are well inflated and clear. No pneumothorax or sizable effusion. The heart is normal in s ize. Mediastinal contours are unchanged with sequelae of CABG. IMPRESSION: No acute intrathoracic abnormalities.
--- NOTE | 2025-07-17 17:14 | EDPHYS ---
Physician Documentation [facility] Name: Amando Sheehan II Age: 69 yrs Sex: Male : 1955 Arrival Date: 07/17/2025 Time: 14:44 Bed 18 Private MD: ED Physician Dillon Sheppard HPI: 07/17 15:17 This 69 yrs old Male presents to ER via EMS with complaints of Chest Pain. dr5 15:17 Onset: The symptoms/episode began/occurred at 11:00. Patient is a 69-year-old male with dr5 history of CVA, OH, TIA, brain bleed coming in with left-sided chest pain that started at 11 5 this morning. Patient describes this pain as stabbing and does not radiate. Patient reports the pain is worse when palpated and when he moves.. Historical: - Allergies: 15:03 Jardiance; cm10 15:03 Morphine; cm10 - Home Meds: 15:03 amlodipine 5 mg tablet [Active]; aspirin 81 mg Oral tablet daily [Active]; carvedilol cm10 oral [Active]; clopidogrel 75 mg Oral tablet [Active]; Lantus Sub-Q [Active]; Lasix 40 mg Oral tablet daily [Active]; levothyroxine 88 mcg tablet daily [Active]; Metformin Oral [Active]; metoprolol tartrate 50 mg Oral tablet [Active]; oxybutynin chloride 2.5 mg Oral tablet 2 times per day [Active]; pantoprazole 40 mg Oral tablet [Active]; rosuvastatin 20 mg Oral tablet daily [Active]; - PMHx: 15:03 Brain bleed; Cerebrovascular accident; Myocardial infarction; Transient cerebral cm10 ischemia; traumatic brain injury; Diabetes mellitus; Hypertensive disorder; Hypothyroidism; Hypercholesterolemia; - PSHx: 15:03 brain surgery; Coronary artery bypass graft; Stented artery; cm10 - Immunization history:: Adult Immunizations up to date. - Infectious Disease History:: Denies. - Social history:: Smoking status: unknown. ROS: 15:21 Constitutional: as per hpi dr5 Exam: 15:21 Constitutional: This is a well developed, well nourished patient who is awake, alert, dr5 and in no acute distress. Head/Face: Normocephalic, atraumatic. Eyes: Pupils equal round and reactive to light, extra-ocular motions intact. Lids and lashes normal. Conjunctiva and sclera are non-icteric and not injected. Cornea within normal limits. Periorbital areas with no swelling, redness, or edema. Neck: Trachea midline, no thyromegaly or masses palpated, and no cervical lymphadenopathy. Supple, full range of motion without nuchal rigidity, or vertebral point tenderness. No Meningismus. Chest/axilla: Normal chest wall appearance and motion. Nontender with no deformity. No lesions are appreciated. Cardiovascular: Regular rate and rhythm with a normal S1 and S2. Normal PMI, no JVD. No pulse deficits. Tenderness to palpation on left side on chest. Respiratory: Lungs have equal breath sounds bilaterally, clear to auscultation. No rales, rhonchi or wheezes noted. No increased work of breathing, no retractions or nasal flaring. Back: No spinal tenderness. No costovertebral tenderness. Full range of motion. Skin: Warm, dry with normal turgor. Normal color with no rashes, no lesions, and no evidence of cellulitis. MS/ Extremity: Pulses equal, no cyanosis. Neurovascular intact. Full, normal range of motion. Neuro: Awake and alert, GCS 15, oriented to person, place, time, and situation. Cranial nerves II-XII grossly intact. Motor strength 5/5 in all extremities. Sensory grossly intact. Cerebellar exam normal. Normal gait. Vital Signs: 15:01 BP 126 / 64; Pulse 85; Resp 16; Temp 98.2(O); Pulse Ox 97% on R/A; Weight 76.2 kg; cm10 Height 6 ft. 0 in. ; Pain 7/10; 15:15 BP 137 / 70; Pulse 86; Resp 17; Pulse Ox 99% ; me1 16:00 BP 146 / 68; Pulse 83; Resp 16; Pulse Ox 97% ; me1 17:00 BP 105 / 62; Pulse 80; Resp 15; Temp 98.3; Pulse Ox 98% ; me1 15:01 Body Mass Index 22.78 (76.20 kg, 182.88 cm) cm10 15:01 Pain Scale: Adult cm10 MDM: 14:58 Medical Screening Exam initiated dr5 15:22 External Records Reviewed: Outpatient record: EKG from 03/26/2025 and 02/12/25 - dr5 similar morphology and no new ischemia noted. 17:54 Data reviewed: vital signs, nurses notes, lab test result(s), cardiac enzymes, troponin dr5 i, CBC, white blood cell count, hemoglobin, hematocrit, platelets, electrolytes, sodium, potassium, chloride, serum bicarbonate, BUN, creatinine, serum glucose, TSH, EKG, radiologic studies, plain films. Consideration of Admission/Observation Escalation of care including admission/observation considered. Escalation considered patient found to have elevated troponin.. I considered the following discharge prescriptions or medication management in the emergency department I discussed and recommended Over The Counter medications, Medications were administered in the Emergency Department. See MAR. Independent interpretation of the following test(s) in the Emergency Department X-Ray: My interpretation is Independent rotation of x-ray does not reveal fracture or pneumonia. Care significantly affected by the following chronic conditions: CVA, OH, CABG, TIA. Care significantly affected by the following Social Determinants of Health: Poor access to healthcare and/or lack of insurance, Poor access to transportation, Problems related to employment. Counseling: I had a detailed discussion with the patient and/or guardian regarding the historical points, exam findings, and any diagnostic results supporting the discharge/admit diagnosis, the presence of at least one elevated blood pressure reading (>120/80) during this emergency department visit, lab results, radiology results, the need for outpatient follow up, for definitive care, a family practitioner, to return to the emergency department if symptoms worsen or persist or if there are any questions or concerns that arise at home. Medication response: Toradol markedly relieved the patient's pain. Response to treatment: the patient's symptoms have markedly improved after treatment. Special discussion: Based on the patient's history, exam, and Dx evaluation, there is no indication for emergent intervention or inpatient Tx. It is understood by the patient/guardian that if the Sx's persist or worsen they need to return immediately for re-evaluation. I discussed with the patient/guardian in detail that at this point there is no indication for admission to the hospital. It is understood, however, that if the symptoms persist or worsen the patient needs to return immediately for re-evaluation. Based on the history and exam findings, there is no indication for further emergent testing or inpatient evaluation. I discussed with the patient/guardian the need to see the primary care provider for further evaluation of the symptoms. ED course: Recommended following with helium arc welder as scheduled. Will treat patient with steroids for likely costochondritis versus pleurisy. Patient reports his pain is already improved. All labs printed and given to him to take with him to next doctor's appointment. All questions answered. Strict ER precautions were given. 07/17 14:58 Order name: Basic Metabolic Panel; Complete Time: 16:28 [facility] 07/17 14:58 Order name: CBC with Diff; Complete Time: 15:59 [facility] 07/17 14:58 Order name: NT PRO-BNP; Complete Time: 16:28 [facility] 07/17 14:58 Order name: Troponin HS; Complete Time: 16:28 [facility] 07/17 14:58 Order name: TSH; Complete Time: 16:28 [facility] 07/17 15:18 Order name: Glucose, Ancillary Testing; Complete Time: 15:21 [facility] 07/17 14:58 Order name: XRAY Chest (1 view); Complete Time: 16:40 [facility] 07/17 14:58 Order name: EKG; Complete Time: 14:59 [facility] 07/17 14:58 Order name: Cardiac monitoring; Complete Time: 15:08 [facility] 07/17 14:58 Order name: EKG - Nurse/Tech; Complete Time: 15:08 [facility] 07/17 14:58 Order name: IV Saline Lock; Complete Time: 17:29 [facility] 07/17 14:58 Order name: Labs collected and sent; Complete Time: 17:29 [facility] 07/17 14:58 Order name: O2 Per Protocol; Complete Time: 15:08 [facility] 07/17 14:58 Order name: O2 Sat Monitoring; Complete Time: 15:08 [facility] 07/17 15:50 Order name: Labs - recollect needed: recollect green and lavender top; Complete Time: bd 16:39 EC:05 Rate is 82 beats/min. Rhythm is regular. QRS [place] is Normal. UT interval is normal at dr5 172 msec. QRS interval is normal at 144 msec. QT interval is normal at 396 msec. Clinical impression: No change from prior ECG and No evidence of ischemia. Administered Medications: 16:56 Drug: Ketorolac IVP 15 mg IVP once Route: IVP; Site: left antecubital; me1 17:19 Follow up: Response: No adverse reaction; Pain is decreased me1 17:27 Drug: Dexamethasone IVP 10 mg IVP once; (not to exceed 40 mg) Route: IVP; Site: left me1 antecubital; 17:27 Follow up: Response: No adverse reaction me1 Disposition: 18:37 Co-signature as Attending Physician, Dillon Sheppard MD I reviewed the patient's care rn provided by the Advanced Practice Provider and agree with the diagnosis and treatment plan. Disposition Summary: 07/17/25 17:14 Discharge Ordered Notes: Location: Home dr5 Condition: Stable dr5 Diagnosis - Costochondritis dr5 Followup: dr5 - With: Emergency Department - When: As needed - Reason: Worsening of condition Followup: dr5 - With: Private Physician - When: 1 - 2 days - Reason: Recheck today's complaints, Continuance of care, Re-evaluation by your physician Discharge Instructions: - Discharge Summary Sheet dr5 - Costochondritis, [id number] dr5 Forms: - Medication Reconciliation Form dr5 - Patient Portal Instructions dr5 - Leadership Thank You Letter dr5 Prescriptions: - Ibuprofen 800 mg Oral Tablet - take 1 tablet ORAL route every 12 hours As needed take with food; 20 tablet; dr5 Refills: 0, Product Selection Permitted - Medrol ([place]) 4 mg Oral Tablets, Dose Pack - take 1 tablet ORAL route as directed - follow package instructions; 1 packet; dr5 Refills: 0, Product Selection Permitted Signatures: Dispatcher [employer] Liv Yao Roman, MD MD rn Martinez, Clarissa, RN RN cm10 Sujatha Sevilla RN RN me1 Sourav Jacobs, PATIENT SAFETY SITTER-C PATIENT SAFETY SITTER-Cdr5
--- NOTE | 2025-07-17 17:14 | ER ---
Nurse's Notes [facility] Name: Amando Sheehan II Age: 69 yrs Sex: Male : 1955 Arrival Date: 07/17/2025 Time: 14:44 Bed 18 Private MD: Diagnosis: Costochondritis Presentation: 07/17 15:01 Chief complaint: EMS states: TONED OUT FOR LEFT SIDED CHEST PAIN ONSET TODAY AT 1100. cm10 PT DESCRIBES THE PAIN A STABBING. Coronavirus screen: Client denies travel out of the [place] in the last 14 days. Ebola Screen: Patient denies travel to an Ebola-affected area in the 21 days before illness onset. Initial Sepsis Screen: Does the patient meet any 2 criteria? No. Patient's initial sepsis screen is negative. Does the patient have a suspected source of infection? No. Patient's initial sepsis screen is negative. Risk Assessment: Do you want to hurt yourself or someone else? Patient reports no desire to harm self or others. Onset of symptoms was July 17, 2025. 15:01 Method Of Arrival: EMS: [facility] 10 15:01 Acuity: SILVIA 2 cm10 15:03 Care prior to arrival: Glucose check: 90. cm10 Triage Assessment: 15:06 General: Appears in no apparent distress. comfortable, Behavior is calm, cooperative, cm10 appropriate for age. Pain: Complains of pain in chest Pain does not radiate. Pain currently is 7 out of 10 on a pain scale. Quality of pain is described as stabbing, Pain began suddenly, Aggravated by Movement and palpation. Neuro: No deficits noted. Level of Consciousness is awake, alert, obeys commands, Oriented to person, place, time, situation, Appropriate for age. Respiratory: No deficits noted. Airway is patent Respiratory effort is even, unlabored, Respiratory pattern is regular, symmetrical. Historical: - Allergies: 15:03 Jardiance; cm10 15:03 Morphine; cm10 - Home Meds: 15:03 amlodipine 5 mg tablet [Active]; aspirin 81 mg Oral tablet daily [Active]; carvedilol cm10 oral [Active]; clopidogrel 75 mg Oral tablet [Active]; Lantus Sub-Q [Active]; Lasix 40 mg Oral tablet daily [Active]; levothyroxine 88 mcg tablet daily [Active]; Metformin Oral [Active]; metoprolol tartrate 50 mg Oral tablet [Active]; oxybutynin chloride 2.5 mg Oral tablet 2 times per day [Active]; pantoprazole 40 mg Oral tablet [Active]; rosuvastatin 20 mg Oral tablet daily [Active]; - PMHx: 15:03 Brain bleed; Cerebrovascular accident; Myocardial infarction; Transient cerebral cm10 ischemia; traumatic brain injury; Diabetes mellitus; Hypertensive disorder; Hypothyroidism; Hypercholesterolemia; - PSHx: 15:03 brain surgery; Coronary artery bypass graft; Stented artery; cm10 - Immunization history:: Adult Immunizations up to date. - Infectious Disease History:: Denies. - Social history:: Smoking status: unknown. Screenin:[facility] ED Fall Risk Assessment (Adult) History of falling in the last 3 months, me1 including since admission No falls in past 3 months (0 pts) Confusion or Disorientation No (0 pts) Intoxicated or Sedated No (0 pts) Impaired Gait No (0 pts) Mobility Assist Device Used No (0 pt) Altered Elimination No (0 pt) Score/Fall Risk Level 0 - 2 = Low Risk Maintained a safe environment, Provided non-skid footwear, Hourly rounding (assess needs \T\ fall precautionary measures) done. Abuse screen: Denies threats or abuse. Nutritional screening: No deficits noted. Tuberculosis screening: No symptoms or risk factors identified. Assessment: 14:50 General: Appears in no apparent distress. well groomed, well developed, well nourished, me1 Behavior is calm, cooperative, appropriate for age, Reports TONED OUT FOR LEFT SIDED CHEST PAIN ONSET TODAY AT 1100. PT DESCRIBES THE PAIN A STABBING. Pain: Complains of pain in chest Pain does not radiate. Pain currently is 7 out of 10 on a pain scale. Quality of pain is described as stabbing, Pain began 4 hours ago. Is continuous. Neuro: Level of Consciousness is awake, alert, obeys commands, Oriented to person, place, time, situation, Appropriate for age. Cardiovascular: Reports chest pain, Patient's skin is warm and dry. Respiratory: Airway is patent Respiratory effort is even, unlabored, Respiratory pattern is regular, symmetrical. GI: No signs and/or symptoms were reported involving the gastrointestinal system. : No signs and/or symptoms were reported regarding the genitourinary system. EENT: No signs and/or symptoms were reported regarding the EENT system. Derm: Skin is intact, is healthy with good turgor, Skin is normal. Musculoskeletal: Circulation, motion, and sensation intact. Range of motion: intact in all extremities. Vital Signs: 15:01 BP 126 / 64; Pulse 85; Resp 16; Temp 98.2(O); Pulse Ox 97% on R/A; Weight 76.2 kg; cm10 Height 6 ft. 0 in. ; Pain 7/10; 15:15 BP 137 / 70; Pulse 86; Resp 17; Pulse Ox 99% ; me1 16:00 BP 146 / 68; Pulse 83; Resp 16; Pulse Ox 97% ; me1 17:00 BP 105 / 62; Pulse 80; Resp 15; Temp 98.3; Pulse Ox 98% ; me1 15:01 Body Mass Index 22.78 (76.20 kg, 182.88 cm) cm10 15:01 Pain Scale: Adult cm10 ED Course: 14:45 Patient arrived in ED. bd 14:46 Sally Patiño FNP-C is PHCP. kb 14:46 Dillon Sheppard MD is Attending Physician. kb 14:47 Sourav Jacobs FNP-C is PHCP. kb 14:50 No provider procedures requiring assistance completed. Patient maintains SpO2 me1 saturation greater than 95% on room air. 14:50 Patient has correct armband on for positive identification. Bed in low position. Call me1 light in reach. Side rails up X2. Provided Education on: POC. Verbalized understanding.. Client placed on continuous cardiac and pulse oximetry monitoring. NIBP monitoring applied. secured entrance monitor on. Pulse ox on. NIBP on. 15:03 Triage completed. cm10 15:06 Arm band placed on right wrist. Patient placed in an exam room, on a stretcher, on cm10 potline monitor, on pulse oximetry. 15:14 EKG done, by ED staff, reviewed by Sourav ROBLES. af3 15:44 Sujatha Sevilla, KERRY is Primary Nurse. me1 15:49 XRAY Chest (1 view) In Process Unspecified. EDMS 16:30 Inserted saline lock: 22 gauge in left antecubital area, using aseptic technique. Blood me1 collected. Flushed with 10 mL NS. 17:35 IV discontinued, intact, bleeding controlled, No redness/swelling at site. Pressure me1 dressing applied. Administered Medications: 16:56 Drug: Ketorolac IVP 15 mg IVP once Route: IVP; Site: left antecubital; me1 17:19 Follow up: Response: No adverse reaction; Pain is decreased me1 17:27 Drug: Dexamethasone IVP 10 mg IVP once; (not to exceed 40 mg) Route: IVP; Site: left me1 antecubital; 17:27 Follow up: Response: No adverse reaction me1 Medication: 14:50 VIS not applicable for this client. me1 Outcome: 17:14 Discharge ordered by MD. dr5 17:35 Discharged to home ambulatory, me1 17:35 Condition: stable 17:35 Discharge instructions given to patient, Instructed on discharge instructions, follow up and referral plans. medication usage, Demonstrated understanding of instructions, follow-up care, medications, Prescriptions given X 2, 17:35 Patient left the ED. me1 Signatures: Dispatcher [employer] EDMS Sally Patiño, MARGARET MADDXOP-Ckb Liv Douglas Clarissa, RN RN cm10 Sujatha Sevilla RN RN me1 Bebe Osborne RN RN af3 Sourav Jacobs, MARGARET MADDOXP-[id number] Corrections: (The following items were deleted from the chart) 15:45 15:01 Chief complaint: EMS states: TONED OUT FOR LEFT SIDED CHEST PAIN ONSET TODAY AT me1 1100. PT DESCRIBES THE PAIN A STABBING. cm10
[2025-07-17 18:37] VITALS: BP 105/62; TEMP 98.3; O2SAT 98
== END 2025-07-17 17:35 | disposition home or self-care (01) ==
LOC: ER 14:44
DX: M94.0 Chondrocostal junction syndrome [Tietze] (principal); I10 Essential (primary) hypertension; I25.2 Old myocardial infarction; Z86.73 Personal history of transient ischemic attack (TIA), and cerebral infarction without residual deficits
CPT/HCPCS: 93005; 85025; 80048; 36415; 82947; 84443; 84484; 83880; 71045; 96375; 96374; 99285; J1100